=== PATIENT | female | born 1935 | race Caucasian/White ===

== ENCOUNTER 2020-09-20 15:11 | Inpatient (IN) | payer MEDICARE, OTHER, SELFPAY ==
[2020-09-20] VITALS (7 sets, daily range): BP systolic 123–219; BP diastolic 83–122; PULSE 64–82; RESP 15–19; TEMP 36.9–37; O2SAT 97–99; BMI 24.7
--- NOTE | ~2020-09-20 | CT_ITS ---
EXAMINATION: CT ANGIOGRAM ABDOMEN AND PELVIS CLINICAL INFORMATION: Hypertension with question of stenosis. COMPARISON: MR angiogram abdomen 03/05/2021, renal ultrasound with Doppler 02/19/2021. TECHNIQUE: Multiple axial images were obtained through the abdomen and pelvis following the administration of 80 mL of Omnipaque 350 intravenous contrast. Additional 2-D coronal and sagittal reformatted images and axial 3-D maximum intensity projection MIP images are generated on the CT workstation. Images were reviewed on a dedicated 3-D workstation. This CT examination was performed using dose optimization techniques as appropriate, variously including the following: *Automated exposure control. *Adjustment of mA and/or kV according to patient size (this includes techniques or standardized protocols for targeted exams where dose is matched to indication/reason for exam; i.e. extremities or head). *Use of iterative reconstruction technique. DLP: 259 mGy-cm VASCULAR FINDINGS: Calcific atherosclerotic changes present in the abdominal aorta without aneurysm or dissection. Some noncalcified plaque is present as well. The aortic bifurcation is patent. Both common iliac arteries demonstrate calcific atherosclerotic change without significant stenosis. Iliac bifurcations are patent. The internal iliac arteries show mild disease but are patent. The external iliac arteries are free of disease. The common femoral arteries demonstrate mild posterior plaque without stenosis. Femoral bifurcations are patent with proximal profunda femoris and superficial femoral arteries. The celiac, SMA and MARIANA are all patent. There are single renal arteries present bilaterally which demonstrate [id number] ostial disease but a significant stenosis is not felt to be present. NONVASCULAR FINDINGS LUNG BASES: The visualized lung bases are unremarkable. LIVER, GALLBLADDER, AND BILIARY TREE: The liver is normal in size, shape, and attenuation. No focal hepatic lesion or biliary ductal dilatation is present. The gallbladder is contracted but otherwise unremarkable with no evidence of radiopaque gallstones, gallbladder wall thickening, or obvious pericholecystic inflammatory changes. PANCREAS: Unremarkable. SPLEEN: Unremarkable. ADRENAL GLANDS: There is nodular thickening of the left adrenal gland. The right adrenal gland appears normal. KIDNEYS AND URETERS: The kidneys are normal in size, shape, and attenuation. No hydronephrosis, hydroureter, or calculi seen. No perinephric stranding. BLADDER: Unremarkable. GASTROINTESTINAL TRACT: The small and large bowel are unremarkable. The appendix is unremarkable. ABDOMINAL WALL: No significant hernia is appreciated. LYMPH NODES: No retroperitoneal lymphadenopathy. PELVIC VISCERA: There is a cystocele present with descent of the bladder. OSSEOUS STRUCTURES: No acute osseous finding. Degenerative changes present in the spine and hips. CT/CT angio abdomen pelvis IMPRESSION: 1. There is mild atherosclerotic renal ostial disease but a hemodynamically significant stenosis is not felt to be present. 2. Cystocele.
--- NOTE | ~2020-09-20 | US_ITS ---
EXAMINATION: ULTRASOUND RENAL WITH DOPPLER CLINICAL INFORMATION: Persistent hypertension. Rule out renal artery stenosis. COMPARISON: Renal ultrasound March 06, 2015 TECHNIQUE: Real-time grayscale, color Doppler, and duplex Doppler evaluation of the kidneys and renal vasculature was performed. Today's examination is limited secondary to motion artifact. FINDINGS: RENAL MEASUREMENTS: Right: 10.5 x 4.3 x 4.5 cm (Sag x AP x TV) Left: 1.4 x 4.5 x 5.2 cm (Sag x AP x TV) The renal parenchyma appears normal. No hydronephrosis or nephrolithiasis. DOPPLER INTERROGATION: Aorta: 124 cm/sec Right Main Renal Artery: Proximal: 76 cm/sec Mid: 83 cm/sec Distal: 115 cm/sec Left Main Renal Artery: Proximal: 229 cm/sec Mid: 193 cm/sec Distal: 150 cm/sec Renal-Aortic Ratio (RAR): Right: 0.6 Left: 1.8 Resistive indices: Resistive indices within both kidneys are mildly elevated averaging approximately 0.8-0.85. US/US renal BI IMPRESSION: -Symmetrically sized kidneys. -Mildly elevated velocity within the proximal left main renal artery may represent a focal stenosis less than 60%. This can be confirmed with CTA imaging of the abdomen. Indicated. -Mildly elevated resistive indices of both kidneys suggesting underlying medical renal disease.
--- NOTE | ~2020-09-20 | XR_ITS ---
EXAMINATION: PORTABLE CHEST 1 VIEW CLINICAL INFORMATION: dyspnea . COMPARISON: 07/07/2019. TECHNIQUE: Portable frontal view of the chest was obtained. FINDINGS: Lungs are hyperinflated with chronic appearing coarsened reticular markings seen bilaterally. There is superimposed increased central vascular prominence and perihilar reticular prominence suggesting component of superimposed edema on chronic changes. Tiny bilateral effusions likely present. No pneumothorax. Cardiac silhouette within normal limits for size with vascular calcification in the aorta. Degenerative changes in the spine and shoulders. XR/XR chest 1V IMPRESSION: Findings suggestive of acute pulmonary edema superimposed on chronic changes
--- NOTE | ~2020-09-20 | MR_ITS ---
EXAMINATION: MR BRAIN WITHOUT CONTRAST CLINICAL INFORMATION: Cerebrovascular accident. Fall. COMPARISON: CT head from 09/20/2020. TECHNIQUE: MRI of the brain was obtained using routine sequences without contrast. FINDINGS: No focal restricted diffusion is demonstrated to suggest acute or subacute cerebral ischemia. No evidence of acute or chronic hemorrhagic products on heme-sensitive imaging. Scattered periventricular, deep white matter, and brainstem T2 FLAIR hyperintensities consistent with moderate underlying microangiopathy. Chronic lacunar infarcts of the left caudate body and lentiform nucleus. There is a degree of generalized enlargement of both the ventricles and the sulcal spaces. The posterior callosal angle is decreased (71 degrees) when measured on a corrected coronal image, orthogonal to the anterior commissure-posterior commissure line. No abnormal mass effect. No midline shift. Normal appearance of the pituitary gland. Normal positioning of the cerebellar tonsils. Normal arterial and venous vascular flow voids are present. Normal, homogeneous marrow signal. Multifocal subcutaneous nodules most consistent with inclusion cysts. Mild mucosal thickening of the paranasal sinuses. No signal abnormalities within the mastoids. Bilateral lens extractions. MR/MR head/brain wo con IMPRESSION: 1. No acute intracranial abnormalities. 2. Moderate underlying microangiopathy. 3. There is a degree of generalized cerebral volume loss with prominence of both the ventricles and sulcal spaces. However, there appears to be mildly disproportionate prominence of the ventricles. This may be due to disproportionate central volume loss; however, correlation with symptoms of potentially superimposed normal pressure hydrocephalus is recommended.
--- NOTE | ~2020-09-20 | US_ITS ---
EXAMINATION: ULTRASOUND RENAL WITH DOPPLER CLINICAL INFORMATION: Persistent hypertension. Rule out renal artery stenosis. COMPARISON: Renal ultrasound March 06, 2015 TECHNIQUE: Real-time grayscale, color Doppler, and duplex Doppler evaluation of the kidneys and renal vasculature was performed. Today's examination is limited secondary to motion artifact. FINDINGS: RENAL MEASUREMENTS: Right: 10.5 x 4.3 x 4.5 cm (Sag x AP x TV) Left: 1.4 x 4.5 x 5.2 cm (Sag x AP x TV) The renal parenchyma appears normal. No hydronephrosis or nephrolithiasis. DOPPLER INTERROGATION: Aorta: 124 cm/sec Right Main Renal Artery: Proximal: 76 cm/sec Mid: 83 cm/sec Distal: 115 cm/sec Left Main Renal Artery: Proximal: 229 cm/sec Mid: 193 cm/sec Distal: 150 cm/sec Renal-Aortic Ratio (RAR): Right: 0.6 Left: 1.8 Resistive indices: Resistive indices within both kidneys are mildly elevated averaging approximately 0.8-0.85. US/US renal doppler IMPRESSION: -Symmetrically sized kidneys. -Mildly elevated velocity within the proximal left main renal artery may represent a focal stenosis less than 60%. This can be confirmed with CTA imaging of the abdomen. Indicated. -Mildly elevated resistive indices of both kidneys suggesting underlying medical renal disease.
--- NOTE | ~2020-09-20 | MR_ITS ---
EXAMINATION: MR ANGIOGRAPHY ABDOMEN WITHOUT AND WITH CONTRAST CLINICAL INFORMATION: Hypertension. Evaluate for renal artery stenosis. COMPARISON: Renal ultrasound and renal Doppler exam 02/19/2021 TECHNIQUE: Sagittal axial and coronal sequences through the abdomen and coronal contrast-enhanced MRA of the abdomen and pelvis following 20 mL Gadavist contrast. 3-D reconstructions on the technologist workstation were performed FINDINGS: Exam is significantly limited due to motion artifact. Exam is nondiagnostic for evaluation of renal artery stenosis. There are single renal arteries. The celiac axis and SMA is patent. The descending thoracic aorta and abdominal aorta are patent. There may be a mild stenosis at the origin of the right common iliac artery. The common, internal and external iliac arteries are otherwise normal in caliber. Liver, spleen, pancreas, adrenal glands and gallbladder are unremarkable. Kidneys are normal in size, shape and contour. No mass or hydronephrosis is seen. Visualized bowel is unremarkable. No ascites or adenopathy is seen. There may be a tiny umbilical hernia containing fat. Bony structures are unremarkable. MR/MR angio abdomen wo/w con IMPRESSION: Limited exam due to motion artifact. Exam is nondiagnostic for evaluation of renal artery stenosis.
--- NOTE | ~2020-09-20 | CT_ITS ---
EXAMINATION: CTA CHEST PE STUDY CLINICAL INFORMATION: hypoxia COMPARISON: Chest x-ray today TECHNIQUE: Prior to contrast administration, noncontrast localization images were obtained. After the administration of 70 mL of Omnipaque 350 IV contrast, contiguous thin slice helical images were obtained through the thorax. Reformatted MIP images in the coronal and sagittal planes were obtained at the acquisition workstation. This CT examination was performed using dose optimization techniques as appropriate, variously including the following: *Automated exposure control *Adjustment of mA and/or kV according to patient size (this includes techniques or standardized protocols for targeted exams where dose is matched to indication/reason for exam; i.e. extremities or head) *Use of iterative reconstruction technique DLP: 278 mGy-cm. FINDINGS: The bolus timing on this study was acceptable for visualization of the pulmonary arterial tree. There are no intraluminal pulmonary arterial filling defects present to suggest pulmonary embolism. Small bilateral pleural effusions are seen with dependent bibasilar airspace disease and additional patchy bilateral airspace disease with a perihilar predominance. Although infectious etiologies could have this appearance, a component of bilateral edema would be difficult to exclude and should be clinically correlated. No abnormal pulmonary nodules or masses are appreciated. No significant hilar or mediastinal adenopathy. There is no evidence of pleural effusion or pneumothorax. The heart is normal in size. No evidence of ventricular septal bowing or right heart strain. Vascular calcification within the aorta. Small hiatal hernia. Otherwise the mediastinum is unremarkable. There is no pericardial effusion or pericardial thickening. Limited evaluation of the upper abdominal viscera demonstrates mild asymmetric fullness to the left adrenal gland. CT/CT angio chest PE protocol IMPRESSION: Patchy bilateral airspace disease more prominent in the dependent lung with associated small bilateral pleural effusions. Infectious etiology or aspiration could have this appearance. Pulmonary edema unfortunately cannot be entirely excluded. Clinical correlation will be needed for this nonspecific appearance. I do not appreciate any evidence for pulmonary emboli however VTE: Negative
--- NOTE | 2020-09-20 15:25 | ED.AMS ---
HPI - Altered Mental Status General Chief Complaint: Altered Mental Status Stated Complaint: UNKNOWN/UNREADABLE Time Seen by Provider: 09/20/20 15:25 Source: patient Mode of arrival: EMS Limitations: no limitations History of Present Illness HPI narrative: Patients was found critical in a pool of blood, sent to [facility] for resuscitation, and patient unable to care for herself. Unclear who called the ambulance for the patient. The only story patient can say is that she fell on her buttocks recently but she is in no distress MD complaint: confusion Onset (ago): unknown Severity: moderate Consistency of symptoms: constant Associated symptoms: denies other symptoms Related Data Allergies Allergy/AdvReac Type Severity Reaction Status Date / Time Penicillins [PCN] Allergy Mild HIVES Unverified 05/04/20 15:56 ciprofloxacin [Cipro] Allergy Unknown Verified 07/22/19 00:00 penicillin V Allergy Unknown Verified 07/22/19 00:00 Sulfa (Sulfonamide Allergy Unknown Verified 07/22/19 00:00 Antibiotics) Review of Systems Constitutional: Constitutional: Reports no additional constitutional complaints Eyes: Eyes: Reports no additional eye complaints ENT: Denies dizziness Cardiovascular: Cardiovascular: Reports no additional cardiovascular complaints Respiratory: Respiratory: Reports as per HPI Gastrointestinal: Gastrointestinal: Reports no additional gastrointestinal complaints Genitourinary: Genitourinary: Reports no additional female genitourinary complaints Musculoskeletal: Musculoskeletal: Reports no additional musculoskeletal complaints Integumentary/Breasts: Skin/Breast: Denies rash Neurologic: Reports system reviewed and no additional complaints, except as documented, Denies dizziness and Denies Sensory deficit (Neuro) Psychiatric: Psychiatric: Denies anxiety [facility] Past Medical History Medical History Diabetes HTN (hypertension) Social History Social History Advance Directives: No Advance Directives Information Provided: Yes Physical Exam Vital Signs: Vital Signs: Last Vital Signs Temp 98.6 F 09/20/20 15:28 Pulse 74 09/20/20 15:28 Resp 15 09/20/20 15:28 BP 189/122 H 09/20/20 15:28 Pulse Ox 97 09/20/20 15:28 Body Mass Index 24.7 Const: Other: elderly female in no distress General: healthy appearing Nutritional Appearance: average body habitus Orientation/consciousness: oriented to person and patient oriented x3 Limitations: no limitations HENMT: Head: Yes normal to inspection Ears: external ears normal General nose exam: Normal external nose present Mouth: Normal oral and palatal mucosa present and oropharynx normal Throat: Yes posterior oropharynx normal Eyes: General: appearance normal, both eyes and all related structures Neck: Other: supple Neck: Yes normal visual inspection Chest: Chest palpation & inspection: normal inspection of the chest Resp: Auscultation: clear to auscultation bilaterally Cardio: Jugular venous distension: no JVD Rate: regular rate Rhythm: regular rhythm Heart sounds: S1 normal heart sound present and S2 normal heart sound present GI: Inspection: Yes normal to inspection Palpation (GI): Soft to palpation, nontender and No hepatosplenomegaly present Auscultation: normal bowel sounds : General: Yes no CVA tenderness Back/Spine/Pelvis: Back: no CVA tenderness Skin: General skin exam: no rashes or lesions noted Neuro: General: oriented to person and patient oriented x3 Cranial nerves: Yes CN's II-XII intact bilaterally Motor exam (neuro): 5/5 motor strength present throughout Sensory Exam: No Sensory deficit (Neuro) Extrem: General: Yes normal to inspection Psych: Appearance: grossly normal Course Course Course Narrative: My impression is that the patient demented. I don't think the work up will yield anything and this will fall to case management. Will sign out to Dr. Fam. MDM - Altered Mental Status Lab Data Result diagrams: 09/20/20 15:54 09/20/20 15:54 Labs: Lab Results 09/20/20 Range/Units 15:54 WBC 7.1 (4.8-10.8) X10*3/uL RBC 3.71 L (4.20-5.50) X10*6/uL Hgb 11.0 L (12.0-16.0) g/dl Hct 34.0 L (37-47) % MCV 91.6 (80-98) fL MCH 29.6 (27.0-33.0) pg MCHC 32.4 (31.0-35.0) g/dl RDW 13.7 (11.0-16.0) % Plt Count 308 (160-400) X10*3/uL MPV 11.1 (9.4-12.3) fL Immature Gran % (Auto) 0.3 (0.0-0.4) % Neut % (Auto) 75.4 H (45-73) % Lymph % (Auto) 17.1 L (20-40) % [place] % (Auto) 5.1 (2-11) % Eos % (Auto) 1.4 (0-4) % Baso % (Auto) 0.7 (0-2) % Lymph # (Auto) 1.2 (1.2-4.9) X10*3/uL [place] # (Auto) 0.4 (0.1-1.2) X10*3/uL Eos # (Auto) 0.1 (0.0-0.4) X10*3/uL Baso # (Auto) 0.1 (0.0-0.2) X10*3/uL Abs Immat Gran (auto) 0.02 (0.00-0.03) X10*3/uL Absolute Neuts (auto) 5.3 (2.0-8.3) X10*3/uL Absolute Nucleated RBC 0.000 (0.0-0.012) X10*3/uL Nucleated RBC % (auto) 0.0 (0.0-0.2) /100WBC
--- NOTE | 2020-09-20 15:26 | ECG_ITS ---
Test Reason : AMS Blood Pressure : / mmHG Vent. Rate : 067 BPM Atrial Rate : 067 BPM P-R Int : 182 ms QRS Dur : 100 ms QT Int : 418 ms P-R-T Axes : 063 -31 060 degrees QTc Int : 441 ms Normal sinus rhythm Left axis deviation Left ventricular hypertrophy with repolarization abnormality Cannot rule out Septal infarct (cited on or before 20-SEP-2020) Abnormal ECG When compared with ECG of 04-JUL-2019 13:15, No significant change was found Referred By: Maikel Cain Electronically Signed By:ALBERTO OLIVAREZ
--- NOTE | 2020-09-20 15:27 | CT_ITS ---
EXAMINATION: CT HEAD WITHOUT CONTRAST CLINICAL INFORMATION: Altered mental status COMPARISON: None TECHNIQUE: Contiguous axial imaging was performed from the skull base to vertex without intravenous administration of contrast. This CT examination was performed using dose optimization techniques as appropriate, variously including the following: *Automated exposure control *Adjustment of mA and/or kV according to patient size (this includes techniques or standardized protocols for targeted exams where dose is matched to indication/reason for exam; i.e. extremities or head) *Use of iterative reconstruction technique DLP: 649 mGy-cm FINDINGS: There is no evidence of acute intra-axial or extra-axial hemorrhage, collection or mass. There is a hypodensity seen along precentral gyrus on axial image 44/2 question subacute or old infarct No abnormal mass effect or midline shift is seen. Christian to white matter differentiation is well preserved. No extra-axial fluid collections are identified. The lateral ventricles are moderately enlarged and so other cortical sulci. There is diffuse periarticular hypodensity suggestive of chronic small vessel ischemic changes. There is atherosclerotic calcification of bilateral supraclinoid ICA and right vertebral artery. Bone windows reveal no calvarial abnormality. There are calcified scattered bifrontal and parietal scalp lesions likely sebaceous cyst or neurofibromas The mastoid air cells and visualized portions of the paranasal sinuses are well aerated. CT/CT head/brain wo con IMPRESSION: No acute intracranial process seen. Hypodensity left precentral gyrus question acute versus chronic infarct. There are no previous exam available for comparison. Age-related moderate cerebral atrophy with chronic small vessel ischemic changes. Bilateral frontal and parietal scalp calcified lesions questions sebaceous cyst versus neurofibromas.
--- NOTE | 2020-09-20 15:36 | PC.NURSE ---
EMS reports pt lives with , he had a medical event and was found in the home on the floor covered with blood, EMS reports he had been on the floor for a long time. On arrival she is oriented X3 but not oriented to situation and asks repetitive questions.EMS reports the house appeared to be a hoarding situation. Pt states she fell yesterday on the stairs, but is vague with details.
[2020-09-20 16:02] LABS: MANUAL DIFF FLAG NO
[2020-09-20 16:03] LABS: Basophils Absolute Auto 0.1 X10*3/uL (0.0-0.2); Basophils Percent Auto 0.7 % (0-2); Eosinophils Absolute Auto 0.1 X10*3/uL (0.0-0.4); Eosinophils Percent Auto 1.4 % (0-4); Imm Gran Abs Auto 0.02 X10*3/uL (0.00-0.03); Imm Gran Pct Auto 0.3 % (0.0-0.4); Lymphocytes Absolute Auto 1.2 X10*3/uL (1.2-4.9); Lymphocytes Percent Auto 17.1 % (20-40); Mean Corpuscular HGB Conc 32.4 g/dl (31.0-35.0); Mean Corpuscular Hemoglobin 29.6 pg (27.0-33.0); Mean Corpuscular Volume 91.6 fL (80-98); Mean Platelet Volume 11.1 fL (9.4-12.3); Monocytes Absolute Auto 0.4 X10*3/uL (0.1-1.2); Monocytes Percent Auto 5.1 % (2-11); Neutrophils Absolute Auto 5.3 X10*3/uL (2.0-8.3); Neutrophils Percent Auto 75.4 % (45-73); Platelet Count 308 X10*3/uL (160-400); Red Blood Count 3.71 X10*6/uL (4.20-5.50); Red Cell Distribution Width 13.7 % (11.0-16.0); White Blood Count 7.1 X10*3/uL (4.8-10.8)
[2020-09-20 16:39] LABS: Anion Gap 14 (12-20); Blood Urea Nitrogen 20 mg/dL (9-16); Calcium 9.2 mg/dL (8.4-10.2); Carbon Dioxide 26 mmol/L (22-29); Chloride 105 mmol/L (96-108); Creatinine Clr Calc Pharmacy 26.2; Estimated Glomerular Filt Rate 34; Glucose Random 171 mg/dL (60-115); Potassium 4.2 mmol/L (3.3-5.1); Sodium 141 mmol/L (135-145)
[2020-09-20 16:52] LABS: Troponin-I High Sensitivity 39.1 ng/L (<3.5-17.0)
--- NOTE | 2020-09-20 17:09 | PC.NURSE ---
Pt has a cellphone and address book at bedside, she has been trying to contact family but is unable to remember names of her children. She called a brother thinking it was a son, brother states he has not heard from the patient in a very long time and is not aware of her baseline mental status. Pt confused, also anxious about condition of her .
--- NOTE | 2020-09-20 18:14 | ED_ITS ---
HPI - General Adult General Chief complaint: Altered Mental Status Stated complaint: UNKNOWN/UNREADABLE Time Seen by Provider: 09/20/20 15:25 Source: patient Mode of arrival: EMS Limitations: no limitations History of Present Illness HPI narrative: 85-year-old female who was initially seen by Dr. aCin in and signed out to me at 4:30 p.m. pending her laboratory evaluation. I obtain information from the patient and from a corrections caseworker at [facility] who is involved in the patient's 's care at [facility]. According to the corrections caseworker, the [place] police department stated that they were called by the patient's stating that the patient's son was hallucinating and that she needed help. When the [facility] staff electronic warfare officer arrived, house was very dirty an on unkept and appeared to be uninhabitable. The patient's was found on the floor with a head injury and it appeared that he had been on the floor for several days and the patient was confused about what was going on therefore the staff electronic warfare officer had both the and our patient transported to the hospital. According to the corrections caseworker [facility], the patient's has a significant head injury, appears to be dehydrated and will be hospitalized. The corrections caseworker stated that the [place] police department felt that it was unsafe to send this patient home given the condition of her house and the fact that she does not appear to be able to care for her home or her and was confused. The patient told me that she fell at least 2 times but cannot tell me exactly when she fell. She believes that she landed on her buttocks and this was 2 days prior. She states she is having right lower buttocks pain but has no other complaints. She states that she does have a son and a brother who she would want us to contact to discuss medical issues with. The nurse did contact the patient's brother but he states that he is not from milieu with the patient's medical problems and does not see her often and told us that we should try to contact the patient's son, Rashaun Liang. Related Data Home Medications Medication Instructions Recorded Confirmed amlodipine 10 mg PO DAILY 09/20/20 09/20/20 enalapril maleate 20 mg PO BID 09/20/20 09/20/20 glimepiride 4 mg PO BID 09/20/20 09/20/20 hydralazine 25 mg PO BID 09/20/20 09/20/20 hydrochlorothiazide 25 mg PO DAILY 09/20/20 09/20/20 levothyroxine 75 mcg PO DAILY 09/20/20 09/20/20 metformin 500 mg PO BID 09/20/20 09/20/20 metoprolol succinate 50 mg PO DAILY 09/20/20 09/20/20 tramadol 50 mg PO TID PRN 09/20/20 09/20/20 Allergies Allergy/AdvReac Type Severity Reaction Status Date / Time Penicillins [PCN] Allergy Mild HIVES Unverified 05/04/20 15:56 ciprofloxacin [Cipro] Allergy Unknown Verified 07/22/19 00:00 penicillin V Allergy Unknown Verified 07/22/19 00:00 Sulfa (Sulfonamide Allergy Unknown Verified 07/22/19 00:00 Antibiotics) Review of Systems Review of Systems: Yes all other systems are reviewed and are negative Neurologic: Reports Abnormal speech present [facility] Past Medical History [facility] Narrative: Past medical history is obtained from the patient, she states she has diabetes, hypertension, coronary artery disease and had a stent placed in [place], she states that she lives at home with her . She denies tobacco, alcohol and drug use. She states that she used to work for the [employer]. Medical History Diabetes HTN (hypertension) Social History Social History Alcohol intake: never Smoking Status: Never smoker Use of substances other than those prescribed or required for medical reasons: No Advance Directives: No Advance Directives Information Provided: Yes Physical Exam Vital Signs: Vital Signs: Last Vital Signs Temp 98.4 F 09/20/20 22:05 Pulse 65 09/20/20 22:05 Resp 19 09/20/20 22:05 BP 154/96 H 09/20/20 22:05 Pulse Ox 97 09/20/20 22:05 Body Mass Index 24.7 Const: General: cooperative and no acute distress Orientation/consciousness: oriented to person and oriented to place Limitations: other limitations (Question if the patient remembers events correctly) HENMT: Head: Yes normal to inspection, Yes normocephalic and Yes atraumatic Ears: external ears normal General nose exam: Normal external nose present Face and sinus: Yes normal facial exam Mouth: Normal oral and palatal mucosa present Throat: Yes posterior oropharynx normal Eyes: Periorbital: periorbital findings normal Eyelids: Yes eyelids normal Conjunctivae: conjunctivae normal Sclerae: sclerae normal Corneas: corneas normal Pupils: Equal, round and reactive pupils present Direct Ophthalmoscopy: normal light reflex Neck: Neck: Yes full ROM, Yes no lymphadenopathy, Yes no meningeal signs, Yes trachea midline and Yes supple Chest: Chest palpation & inspection: normal inspection of the chest and normal palpation of entire chest wall Resp: Effort & Inspection: normal respiratory effort and able to speak in complete sentences Auscultation: clear to auscultation bilaterally Cardio: Rate: regular rate Rhythm: regular rhythm Heart sounds: S1 normal heart sound present, S2 normal heart sound present and Murmur heart sound present continuous and systolic II/ and at the left sternal border GI: Inspection: Yes normal to inspection Palpation (GI): Soft to palpation, nontender, no guarding, not rigid and No hepatosplenomegaly present : General: Yes no CVA tenderness Back/Spine/Pelvis: Back: no CVA tenderness Cervical Spine: normal cervical lordosis Thoracic/Lumbar Spine: thoracic and lumbar spine normal to inspection Skin: Lesions: no lesions Rashes: no rashes Wounds: no wounds Neuro: General: oriented to person, oriented to place and no meningeal signs Cranial nerves: Yes Equal, round and reactive pupils present Cognition (Neuro): normal cognition Speech: Abnormal speech present Motor exam (neuro): 5/5 motor strength present throughout Extrem: General: Yes normal to inspection and Yes full ROM Psych: Appearance: well kempt Mental Status: mental status grossly normal Speech and movement: Normal speech and movement present Affect: normal affect Attitude: cooperative Thought content: Normal thought content present Insight: Other insight findings present (Psych) (Patient may not be recalling events correctly based discussion with [facility]) Course Course Course Narrative: 85-year-old female who reports a history of diabetes, hypertension, coronary artery disease status post remote stent who was sent to the emergency department by [employer] after she called 911 for her and seemed to be confused and found to be in a home that was unlivable. The patient reported falling twice but was vague about these incidents. She reported right buttocks pain, physical examination was unremarkable for elevated blood pressures initially 219/95, which I suspect is secondary to noncompliance. I did order the patient's outpatient oral antihypertensive medications. Laboratory evaluation did reveal mild anemia with an H&H of 11 and 34, slight elevated glucose of 171, elevated BUN creatinine of 20 and 1.46. The patient's initial troponin was elevated at 39. Twelve EKG revealed for R- wave progression with a Q-wave in lead V2 with slight ST segment depression V4 through V6 . These findings were present on previous EKG however the ST segment depressions appear to be more prominent. The patient was hypertensive on presentation and I did order her outpatient antihypertensive medications. The patient will also need a 3 hour troponin. 2007: The patient's repeat troponin was elevated at 59.7 which is greater than a 50% increase. I will discuss this with Cardiology. The patient did have elevated blood pressures which may explain the elevated troponin, coronary artery disease also needs to be considered given her previous history of stenting. 2018: I did discuss the patient with the covering brake lining curer, Dr. Lantigua. He agreed with aspirin only as the management and admission to further evaluate the elevated troponin. I did discuss the patient's heart murmur he recommended the patient get an echocardiogram to further evaluate this as well. I will discuss the patient's presentation with the covering hospitalist. 2315: The patient is 6 hour troponin was 63.3 which is not significantly changed from the 3 hour troponin. I did discuss this with the hospitalist the patient will be admitted for further management. Medical Decision Making Lab Data Result diagrams: 09/20/20 15:54 09/20/20 15:54 Labs: Lab Results 09/20/20 09/20/20 09/20/20 Range/Units 15:54 15:54 15:54 WBC 7.1 (4.8-10.8) X10*3/uL RBC 3.71 L (4.20-5.50) X10*6/uL Hgb 11.0 L (12.0-16.0) g/dl Hct 34.0 L (37-47) % MCV 91.6 (80-98) fL MCH 29.6 (27.0-33.0) pg MCHC 32.4 (31.0-35.0) g/dl RDW 13.7 (11.0-16.0) % Plt Count 308 (160-400) X10*3/uL MPV 11.1 (9.4-12.3) fL Immature Gran % (Auto) 0.3 (0.0-0.4) % Neut % (Auto) 75.4 H (45-73) % Lymph % (Auto) 17.1 L (20-40) % [place] % (Auto) 5.1 (2-11) % Eos % (Auto) 1.4 (0-4) % Baso % (Auto) 0.7 (0-2) % Lymph # (Auto) 1.2 (1.2-4.9) X10*3/uL [place] # (Auto) 0.4 (0.1-1.2) X10*3/uL Eos # (Auto) 0.1 (0.0-0.4) X10*3/uL Baso # (Auto) 0.1 (0.0-0.2) X10*3/uL Abs Immat Gran (auto) 0.02 (0.00-0.03) X10*3/uL Absolute Neuts (auto) 5.3 (2.0-8.3) X10*3/uL Absolute Nucleated RBC 0.000 (0.0-0.012) X10*3/uL Nucleated RBC % (auto) 0.0 (0.0-0.2) /100WBC Sodium 141 (135-145) mmol/L Potassium 4.2 (3.3-5.1) mmol/L Chloride 105 (96-108) mmol/L Carbon Dioxide 26 (22-29) mmol/L Anion Gap 14 (12-20) BUN 20 H (9-16) mg/dL Creatinine 1.46 H (0.5-1.4) mg/dL Estim Creat Clear Calc 26.2 Estimated GFR 34 Random Glucose 171 H (60-115) mg/dL Calcium 9.2 (8.4-10.2) mg/dL Troponin I High Sens 39.1 H (<3.5-17.0) ng/L TSH 3.25 (0.32-4.0) uIU/mL COVID-19 (MILA) (Negative) COVID-19 Clin Com 09/20/20 09/20/20 09/20/20 Range/Units 18:38 18:42 21:47 WBC (4.8-10.8) X10*3/uL RBC (4.20-5.50) X10*6/uL Hgb (12.0-16.0) g/dl Hct (37-47) % MCV (80-98) fL MCH (27.0-33.0) pg MCHC (31.0-35.0) g/dl RDW (11.0-16.0) % Plt Count (160-400) X10*3/uL MPV (9.4-12.3) fL Immature Gran % (Auto) (0.0-0.4) % Neut % (Auto) (45-73) % Lymph % (Auto) (20-40) % [place] % (Auto) (2-11) % Eos % (Auto) (0-4) % Baso % (Auto) (0-2) % Lymph # (Auto) (1.2-4.9) X10*3/uL [place] # (Auto) (0.1-1.2) X10*3/uL Eos # (Auto) (0.0-0.4) X10*3/uL Baso # (Auto) (0.0-0.2) X10*3/uL Abs Immat Gran (auto) (0.00-0.03) X10*3/uL Absolute Neuts (auto) (2.0-8.3) X10*3/uL Absolute Nucleated RBC (0.0-0.012) X10*3/uL Nucleated RBC % (auto) (0.0-0.2) /100WBC Sodium (135-145) mmol/L Potassium (3.3-5.1) mmol/L Chloride (96-108) mmol/L Carbon Dioxide (22-29) mmol/L Anion Gap (12-20) BUN (9-16) mg/dL Creatinine (0.5-1.4) mg/dL Estim Creat Clear Calc Estimated GFR Random Glucose (60-115) mg/dL Calcium (8.4-10.2) mg/dL Troponin I High Sens 59.7 H D 63.3 H (<3.5-17.0) ng/L TSH (0.32-4.0) uIU/mL COVID-19 (MILA) Negative (Negative) COVID-19 Clin Com See Note ECG Data Attestation: I personally reviewed and interpreted this ECG as follows: Interpretation: 1543: Normal sinus rhythm with a rate of 67, prolonged QRS of 100 milliseconds, normal FL and QTC, incomplete right bundle-branch, Q-wave in V1 and V2 with less than [address] segment depression in V3, V4 and V5, old EKG dated July 04, 2019 revealed Q-waves in V1 and V2, the patient did have some slight ST segment depression V3 through V6 however today's depressions appear to be deeper. This is an abnormal EKG which may represent anterior ischemia. Discharge Plan Discharge Prescriptions: No Action metformin 500 mg Tablet 500 mg PO BID RF: 0 metoprolol succinate 50 mg Tablet Extended Release 24 Hr 50 mg PO DAILY RF: 0 enalapril maleate 20 mg Tablet 20 mg PO BID RF: 0 hydralazine 25 mg Tablet 25 mg PO BID RF: 0 tramadol 50 mg Tablet 50 mg PO TID PRN (Reason: Pain (Scale Score 4-6)) RF: 0 levothyroxine 75 mcg Tablet 75 mcg PO DAILY RF: 0 amlodipine 10 mg Tablet 10 mg PO DAILY RF: 0 glimepiride 4 mg Tablet 4 mg PO BID RF: 0 hydrochlorothiazide 25 mg Tablet 25 mg PO DAILY RF: 0
[2020-09-20] MEDS: hydroCHLOROthiazide 25 MG TABLET PO (18:46)
[2020-09-20] MEDS: amLODIPine Besylate 10 MG TABLET PO (18:46)
[2020-09-20] MEDS: hydrALAZINE HCl 25 MG TABLET PO (18:46)
[2020-09-20 18:54] LABS: Thyroid Stimulating Hormone 3.25 uIU/mL (0.32-4.0)
--- NOTE | 2020-09-20 18:58 | PC.NURSE ---
Pharmacy called for Enalapril as it is not stocked in [facility].
[2020-09-20 19:03] LABS: COVID-19 Test Negative (Negative); IDNOW Serial# 9DD0AD1C
[2020-09-20] MEDS: Enalapril Maleate 10 MG TABLET 20 MG PO (19:07)
[2020-09-20 19:35] LABS: Troponin-I High Sensitivity 59.7 ng/L (<3.5-17.0)
--- NOTE | 2020-09-20 20:11 | PC.NURSE ---
Pt found sitting upright in bed, pt alert and oriented at this time but continuously trying to get OOB without assistance. Pt redirected to use call neves and remain in bed. Pt incontinent of diarrhea, reports frequent episodes of diarrhea this evening, requesting Imodium. MD aware. Pt MD, plan to admit due to elevated Troponin. VSSMD aware of BP. Continue to monitor.
[2020-09-20] MEDS: Loperamide HCl 2 MG CAPSULE 4 MG PO (20:43)
[2020-09-20] MEDS: Aspirin 81 MG TAB.CHEW PO (20:43)
--- NOTE | 2020-09-20 20:46 | PC.NURSE ---
Pt medicated per MAR.
[2020-09-20 22:30] LABS: Troponin-I High Sensitivity 63.3 ng/L (<3.5-17.0)
--- NOTE | 2020-09-20 23:15 | PM.IMHP ---
History of Present Illness Date of Service: 09/20/20 Chief Complaint: Fall 85-year-old female with a past medical history of hypertension, hyperlipidemia, diabetes, hypothyroidism, CAD status post stent presented to the hospital with a chief complaint of fall. Most of the history obtained from the records and ER physician. Patient is forgetful. Per ER physician he was reported that patient had a fall at home and had mild confusion. Also mentioned that EMS was called in because of the fall of her who was then taken to the [facility]. To the EMS people patient appeared confused. And was unable to reach the patient's son. Per EMS patient's house conditions were poor. At the time of my interview patient denies any chest pain palpitations lightheadedness or dizziness. Denies any headaches numbness tingling. Denies any back pain or hip pain. Patient reports to me that she had a fall and couple days later her had a fall. Denies any symptoms. Mentioned that she worked for [employer] for 30 years. When asked about the president she knows the new and old present but unable to recall than names, also unable to recall the ER. Mentions that she has diabetes and she has coronary artery disease with stent placed in the past. Denies any GI or symptoms. Review of all other systems is negative except mentioned above He ER course: For ER team patient's CT head showed no acute findings. CT C-spine is pending. Urinalysis is pending. Initial troponin was 39 followed by 59 followed by 63-EKG showed ST depression that are slightly more prominent in V3 V4 V5 V6 compared to the old EKG; ER physician mentioned that he spoke with Dr. hernandez from Cardiology-> who mentioned to you the patient aspirin, obtain echocardiogram in the morning, no need for heparin drip currently. [facility] Medical History Diabetes HTN (hypertension) Social History Alcohol intake: never Smoking Status: Never smoker Use of substances other than those prescribed or required for medical reasons: No Advance Directives: No Advance Directives Information Provided: Yes Meds Allergies Allergy/AdvReac Type Severity Reaction Status Date / Time Penicillins [PCN] Allergy Mild HIVES Unverified 05/04/20 15:56 ciprofloxacin [Cipro] Allergy Unknown Verified 07/22/19 00:00 penicillin V Allergy Unknown Verified 07/22/19 00:00 Sulfa (Sulfonamide Allergy Unknown Verified 07/22/19 00:00 Antibiotics) Home Medications Medication Instructions Recorded Confirmed Type amlodipine 10 mg PO DAILY 09/20/20 09/20/20 History enalapril maleate 20 mg PO BID 09/20/20 09/20/20 History glimepiride 4 mg PO BID 09/20/20 09/20/20 History hydralazine 25 mg PO BID 09/20/20 09/20/20 History hydrochlorothiazide 25 mg PO DAILY 09/20/20 09/20/20 History levothyroxine 75 mcg PO DAILY 09/20/20 09/20/20 History metformin 500 mg PO BID 09/20/20 09/20/20 History metoprolol succinate 50 mg PO DAILY 09/20/20 09/20/20 History tramadol 50 mg PO TID PRN 09/20/20 09/20/20 History Physical Exam Vital Signs and Narrative: Vital Signs: Last Vital Signs Temp 98.4 F 09/20/20 22:05 Pulse 65 09/20/20 22:05 Resp 19 09/20/20 22:05 BP 154/96 H 09/20/20 22:05 Pulse Ox 97 09/20/20 22:05 Body Mass Index 24.7 Gen: Appears be in no acute distress HEENT: NCAT, Moist mucosa. Neck is supple Pulmonary: Vesicular breath sounds, fair air entry CVS: Normal S1-S2 Abdomen: BS+, Soft, Nontender Extremities: Warm well perfused Musculoskeletal exam: Benign. No spinal tenderness. Neuro: Alert and awake. Results Labs CBC and Chem 7: 09/20/20 15:54 09/20/20 15:54 Labs: Laboratory Results - last 24 hr 09/20/20 09/20/20 09/20/20 15:54 15:54 15:54 MCV 91.6 MCH 29.6 MCHC 32.4 RDW 13.7 Plt Count 308 MPV 11.1 Immature Gran % (Auto) 0.3 Neut % (Auto) 75.4 H Lymph % (Auto) 17.1 L Rowan % (Auto) 5.1 Eos % (Auto) 1.4 Baso % (Auto) 0.7 Lymph # (Auto) 1.2 Rowan # (Auto) 0.4 Eos # (Auto) 0.1 Baso # (Auto) 0.1 Abs Immat Gran (auto) 0.02 Absolute Neuts (auto) 5.3 Absolute Nucleated RBC 0.000 Nucleated RBC % (auto) 0.0 Anion Gap 14 Estim Creat Clear Calc 26.2 Estimated GFR 34 Random Glucose 171 H Calcium 9.2 Troponin I High Sens 39.1 H TSH 3.25 COVID-19 (MILA) COVID-19 Clin Com 09/20/20 09/20/20 09/20/20 18:38 18:42 21:47 MCV MCH MCHC RDW Plt Count MPV Immature Gran % (Auto) Neut % (Auto) Lymph % (Auto) Rowan % (Auto) Eos % (Auto) Baso % (Auto) Lymph # (Auto) Rowan # (Auto) Eos # (Auto) Baso # (Auto) Abs Immat Gran (auto) Absolute Neuts (auto) Absolute Nucleated RBC Nucleated RBC % (auto) Anion Gap Estim Creat Clear Calc Estimated GFR Random Glucose Calcium Troponin I High Sens 59.7 H D 63.3 H TSH COVID-19 (MILA) Negative COVID-19 Clin Com See Note Imaging Radiologist's Impressions: Impressions Head CT 09/20/20 15:27 IMPRESSION: No acute intracranial process seen. Hypodensity left precentral gyrus question acute versus chronic infarct. There are no previous exam available for comparison. Age-related moderate cerebral atrophy with chronic small vessel ischemic changes. Bilateral frontal and parietal scalp calcified lesions questions sebaceous cyst versus neurofibromas. Assessment and Plan (1) Elevated troponin: Status: Acute 85-year-old female with a past medical history of hypertension, hyperlipidemia, diabetes, hypothyroidism, CAD with stents presented to the hospital with a chief complaint of fall. Noted to have elevated troponins admitted to the hospital for further management. Confusion: Unknown patient's baseline mental status. Likely toxic metabolic encephalopathy. Urinalysis pending. Supportive care. Elevated troponins: Patient denies any chest pain. EKG showed ST depressions in the lateral leads. Troponins currently plateaued. Dr. hernandez from Cardiology is aware and recommended no new heparin drip at this point. Continue aspirin Echocardiogram Fall: Unwitnessed. Unclear if she lost consciousness. Noted indeterminate troponins. Echocardiogram as mentioned. PT/OT. Diabetes: Insulin sliding scale Hypertension/hyperlipidemia: Continue home medications. Will defer to the a.m. team to confirm the home medications. Poor home conditions: Case management/social media job titles consult in the morning Code status: Presumed full code. Primary team in the morning to pursue to find contact with patient's son.
--- NOTE | 2020-09-20 23:31 | PC.NURSE ---
Sitter at bedside. Plan to obtain UA. Pt aware of plan to admit. Continue to monitor.
[2020-09-21] VITALS (9 sets, daily range): BP systolic 147–185; BP diastolic 62–78; PULSE 56–69; RESP 13–18; TEMP 36.1–36.6; O2SAT 94–100
--- NOTE | 2020-09-21 | PC.NURSE ---
Pt calling this RN to bedside, pt states I had $300 or $400 on me, I can't find it anywhere. Someone took my money! This RN notifying nurse brand development manager Cely Wells who spoke with pt, calling security who stated that noone had provided them with a sealed envelope of dhillon when pt arrived. Pt states Why did I leave my purse over there on the counter?! I should have known!! Pt pointing to the counter by the physician desk however both of her purses remained at her bedside while pt was in the care of this RN.
[2020-09-21] MEDS: 0.9 % Sodium Chloride Flush 3 ML SYRINGE IVFLUSH ×3 (00:18→17:43)
[2020-09-21 01:26] LABS: Glucose, Whole Blood 141 mg/dL (60-115)
--- NOTE | 2020-09-21 02:14 | PC.NURSE ---
Pt remains awake in bed at this time, sitter at bedside as pt is impulsive and has been in and out of bed, not using her call neves or waiting for assistance. IV established per admission orders. Pt aware of plan to admit but remains confused at times, stating I'm getting out of here. Don't be mad at me when I go home tomorrow. Pt aware of pending urine sample but states I don't usually pee much, I don't have to go. Urine cup and hat at bedside. Continue to monitor.
--- NOTE | 2020-09-21 05:48 | PC.NURSE ---
AM labs obtained and sent. VSS, pt remains hypertensive at this time. Call neves within reach, continue to monitor.
[2020-09-21 05:53] LABS: Basophils Absolute Auto 0.1 X10*3/uL (0.0-0.2); Basophils Percent Auto 0.7 % (0-2); Eosinophils Absolute Auto 0.3 X10*3/uL (0.0-0.4); Eosinophils Percent Auto 3.1 % (0-4); Hematocrit 36.1 % (37-47); Hemoglobin 11.7 g/dl (12.0-16.0); Imm Gran Abs Auto 0.02 X10*3/uL (0.00-0.03); Imm Gran Pct Auto 0.2 % (0.0-0.4); Lymphocytes Absolute Auto 1.9 X10*3/uL (1.2-4.9); Mean Corpuscular HGB Conc 32.4 g/dl (31.0-35.0); Mean Corpuscular Hemoglobin 29.9 pg (27.0-33.0); Mean Corpuscular Volume 92.3 fL (80-98); Mean Platelet Volume 10.7 fL (9.4-12.3); Monocytes Absolute Auto 0.6 X10*3/uL (0.1-1.2); Monocytes Percent Auto 7.1 % (2-11); Neutrophils Absolute Auto 5.5 X10*3/uL (2.0-8.3); Neutrophils Percent Auto 65.9 % (45-73); Platelet Count 310 X10*3/uL (160-400); Red Blood Count 3.91 X10*6/uL (4.20-5.50); Red Cell Distribution Width 13.9 % (11.0-16.0); White Blood Count 8.4 X10*3/uL (4.8-10.8)
[2020-09-21 05:54] LABS: MANUAL DIFF FLAG NO
[2020-09-21] MEDS: Levothyroxine Sodium 75 MCG TABLET PO (05:57)
--- NOTE | 2020-09-21 06:20 | PC.NURSE ---
Pt calling this RN over as she was rifling through her bags at bedside. Pt states I'm missing my bank books!! I had 2 bank books in here and now they're gone! This RN advising discussing with pt whether or not they may have been left at home. printing assistant aware.
[2020-09-21 06:26] LABS: Anion Gap 16 (12-20); Blood Urea Nitrogen 21 mg/dL (9-16); Calcium 9.4 mg/dL (8.4-10.2); Carbon Dioxide 26 mmol/L (22-29); Chloride 103 mmol/L (96-108); Creatinine Clr Calc Pharmacy 30.5; Estimated Glomerular Filt Rate 41; Glucose Random 177 mg/dL (60-115); Potassium 3.7 mmol/L (3.3-5.1); Sodium 141 mmol/L (135-145)
[2020-09-21 07:13] LABS: Glucose, Whole Blood 169 mg/dL (60-115)
[2020-09-21] MEDS: Insulin Lispro 100 UNIT/ML 3 ML VIAL SUBCUT ×3 (07:14→21:14)
--- NOTE | 2020-09-21 08:00 | CA_ITS ---
Transthoracic Echocardiogram Patient (Last, First, Middle): Kathlene Bradley A Gender: Female Date of : 1935 Age: 85 Procedure Date: 09/21/2020 Procedure Type: Transthoracic Echocardiogram Location: ER Height: 160.02 cm Weight: 63.5 kg BSA: 1.66 m2 Heart Rate: bpm BP: 170 / 70 mmHg Enrollment Counselor: TAISHA Cochran MD: Bhavik Jesus MD Symptoms: trops high Study Quality: Fair ECG Rhythm: Sinus Conclusions: - The left ventricular systolic function is normal. The visually estimated ejection fraction is between 55-60%. - There is mild to moderate aortic valve stenosis. - There is mild mitral annular calcification. Findings Left Ventricle Normal left ventricular cavity size. There is mildly increased left ventricular wall thickness. The left ventricular systolic function is normal. The visually estimated ejection fraction is between 55-60%. There is no evidence of regional wall motion abnormalities. E/E prime ratio is >15, consistent with elevated filling pressures. Evidence suggests grade I (mild) diastolic dysfunction. Possible basal inferior hypokinesis. Right Ventricle Normal right ventricular cavity size and systolic function. Atria The left atrium is mildly dilated. The right atrium is normal in size. Aortic Valve There is moderate calcification of the aortic valve. There is mild to moderate aortic valve stenosis. The peak aortic velocity is 2.97 m/s with a calculated peak gradient of 35 mmHg. The mean gradient is 17 mmHg. The aortic valve area is 1.44 cm2. There is no aortic valve regurgitation. Mitral Valve There is mild mitral annular calcification. There is trace mitral valve regurgitation. There is no mitral valve stenosis. Pulmonic Valve The pulmonic valve was not well visualized. Tricuspid Valve Normal tricuspid valve structure. There is trace tricuspid valve regurgitation. The pulmonary artery systolic pressure is normal. Great Vessels The aortic annulus, sinuses of valsalva, and asc aorta are normal in size. Venous The inferior vena cava is normal in size. Pericardium/Pleural There is no evidence of pericardial effusion. Prior Study Comparison No significant change compared to prior study dated: 07/05/2019. Measurements 2D Linear Measurements IVSd: 1.04 0.6-0.9/0.6-1.0 cm LVIDd: 4.18 3.9-5.3/4.2-5.9 cm LVIDd Index: 2.52 2.4-3.2/2.2-3.1 cm/m2 LVIDs: 2.84 2.0-3.6 cm LVPWd: 1.03 0.7-1.1 cm Ao Root: 2.50 2.1-3.5 cm LA Diam: 3.20 2.7-3.8/3.0-4.0 cm LAIDs Index: 1.93 1.5-2.3 cm/m2 LV Mass: 177.95 67-162/88-224 g LV Mass Index: 107.20 43-95/49-115 g/m2 LVOT Diam: 2.10 3.0+(-)1.3 cm 2D Systolic Function EF 4C: 61.70 >55% EF 2C: 53.30 >55% EF BiP: 57.70 >55% Mitral Valve MV Pk E: 0.77 MV PK A: 1.18 MV Decel Time: 362.00 E/A: 0.60 E'Lateral: 3.92 E'Medial: 3.92 E/E' Med: 19.50 E/E' Lat: 19.50 PHT: 106.00 MVA PHT: 2.08 Decel Tyrrell: 2.11 Aortic Valve AoV Pk Nicola: 2.97 AoV Mn Nicola: 1.90 AoV VTI: 0.69 AoV Pk Grad: 35.00 Aov Mn Grad: 17.00 GÓMEZ Cont.VTI: 1.44 LVOT LVOT Pk Nicola: 1.20 LVOT Mn Nicola: 0.78 LVOT VTI: 0.29 LVOT Pk Grad: 6.00 LVOT Mn Grad: 3.00 LVOT Diam: 2.10 LVOT Area: 3.46 Diastolic Function MV Pk E: 0.77 MV Pk A: 1.18 E/A: 0.60 E'Medial: 3.92 E/E' Med: 19.50 E' Laterial: 3.92 E/E' Lat: 19.50 Tricuspid Valve TR Pk Nicola: 2.46 TR Pk Grad: 24.00 RA Press: 3.00 RVSP: 27.00 Great Vessels Aorta Ao Root-2D: 2.50 2.0-3.7 cm Ao Asc: 3.10 2.1-3.4 cm Updated in Other Vendor System with Status of Final Meño Hernandez MD electronically signed on 09/21/2020 4:59:35 PM with status of Final
[2020-09-21] MEDS: amLODIPine Besylate 10 MG TABLET PO (10:52)
[2020-09-21] MEDS: Aspirin 81 MG TAB.CHEW PO (10:53)
[2020-09-21] MEDS: hydrALAZINE HCl 25 MG TABLET PO ×2 (10:53→21:13)
[2020-09-21] MEDS: Metoprolol Succinate ER 50 MG TAB.ER.24H PO (10:53)
[2020-09-21 11:57] LABS: Appearance Urine HAZY; Color Urine YELLOW; Glucose Urine UA NEG (NEG); Leukocyte Esterase Urine 1+ (NEG); Nitrite Urine NEG (NEG); PH 5.5 (5.0-8.0); Specific Gravity - Urine >= 1.030 (1.005-1.025); UACC Culture Trigger YES; Urine Blood TRACE (NEG); Urine Ketones NEG (NEG); Urine Protein 2+ MG/DL (NEG-TRACE)
[2020-09-21 12:05] LABS: Bacteria Urine TRACE /LPF; RBC Urine 0-2 /HPF (0); Renal Epithelial Cells Urine TRACE /LPF; Squamous Epithelial Cell Urine TRACE /LPF
--- NOTE | 2020-09-21 12:39 | P.CONCA_ITS ---
History of Present Illness History of Present Illness Date of Service: 09/21/20 Consult reason: troponin elevation Chief complaint: FALL Narrative: This is a cardiology consultation regarding elevated troponins. It appears that she fell down at home but that seems to be mechanical fall as patient states that the steps did not have any phalanx. Additionally, her also fell in a similar situation and he is now in [facility]. Not entirely clear as to why she was brought to the ER but apparently she appeared confused. Per H and P, patient's host conditions were poor. Patient herself has no specific complaints like any angina or palpitations or dizzy spells or syncopal episodes. She believes she is now in [facility]. Hence possibly confused. Otherwise because of elevated troponins, we have been asked to see her. Review of Systems Review of Systems: Yes all other systems are reviewed and are negative Constitutional: Constitutional: Reports as per HPI Cardiovascular: Cardiovascular: Reports as per HPI, Reports no additional cardiovascular complaints, Denies acrocyanosis, Denies cool extremities, Denies painful fingertips, Denies chest pain, Denies chest pain at rest, Denies diaphoresis, Denies syncope, Denies irregular heart rhythm, Denies claudication, Denies leg edema, Denies lightheadedness, Denies palpitations and Denies dyspnea Respiratory: Respiratory: Denies dyspnea Neurologic: Denies syncope Endocrine: Endocrine: Denies palpitations [facility] Past Medical History Medical History (Updated 09/21/20 @ 12:51 by Meño Hernandez MD) Atherosclerotic cardiovascular disease Diabetes HTN (hypertension) Non-rheumatic aortic stenosis Family History Pertinent family history: Unable to obtain from patient. Social History Social History Alcohol intake: never Smoking Status: Never smoker Use of substances other than those prescribed or required for medical reasons: No Advance Directives: No Advance Directives Information Provided: Yes Meds Allergies Allergy/AdvReac Type Severity Reaction Status Date / Time Penicillins [PCN] Allergy Mild HIVES Unverified 05/04/20 15:56 ciprofloxacin [Cipro] Allergy Unknown Verified 07/22/19 00:00 penicillin V Allergy Unknown Verified 07/22/19 00:00 Sulfa (Sulfonamide Allergy Unknown Verified 07/22/19 00:00 Antibiotics) Home Medications Medication Instructions Recorded Confirmed Type amlodipine 10 mg PO DAILY 09/20/20 09/20/20 History enalapril maleate 20 mg PO BID 09/20/20 09/20/20 History glimepiride 4 mg PO BID 09/20/20 09/20/20 History hydralazine 25 mg PO BID 09/20/20 09/20/20 History hydrochlorothiazide 25 mg PO DAILY 09/20/20 09/20/20 History levothyroxine 75 mcg PO DAILY 09/20/20 09/20/20 History metformin 500 mg PO BID 09/20/20 09/20/20 History metoprolol succinate 50 mg PO DAILY 09/20/20 09/20/20 History tramadol 50 mg PO TID PRN 09/20/20 09/20/20 History Physical Exam Vital Signs: Vital Signs: Last Vital Signs Temp 97.8 F 09/21/20 07:07 Pulse 69 09/21/20 10:50 Resp 15 09/21/20 10:50 BP 156/69 H 09/21/20 10:50 Pulse Ox 96 09/21/20 10:50 Body Mass Index 24.7 Const: General: cooperative, comfortable and no acute distress Orientation/consciousness: patient oriented x3 HENMT: Other: Unremarkable Neck: Neck: Yes normal visual inspection Chest: Chest palpation & inspection: normal inspection of the chest Resp: Auscultation: clear to auscultation bilaterally, no crackles and no wheezes Cardio: Jugular venous distension: no JVD Palpation: normal PMI Heart sounds: S1 normal heart sound present, S2 normal heart sound present, no gallops, Murmur heart sound present systolic early, III/ and at the right sternal border and no rubs GI: Palpation (GI): Soft to palpation Back/Spine/Pelvis: Other: unremarkable Skin: General skin exam: no rashes or lesions noted Neuro: General: patient oriented x3 Extrem: General: Yes no clubbing, cyanosis or edema Psych: Mental Status: mental status grossly normal Results Labs and Meds Result diagrams: 09/21/20 05:47 09/21/20 05:47 Lab results: Laboratory Results - last 24 hr 09/20/20 09/20/20 09/20/20 15:54 15:54 15:54 WBC 7.1 RBC 3.71 L Hgb 11.0 L Hct 34.0 L MCV 91.6 MCH 29.6 MCHC 32.4 RDW 13.7 Plt Count 308 MPV 11.1 Immature Gran % (Auto) 0.3 Neut % (Auto) 75.4 H Lymph % (Auto) 17.1 L [place] % (Auto) 5.1 Eos % (Auto) 1.4 Baso % (Auto) 0.7 Lymph # (Auto) 1.2 [place] # (Auto) 0.4 Eos # (Auto) 0.1 Baso # (Auto) 0.1 Abs Immat Gran (auto) 0.02 Absolute Neuts (auto) 5.3 Absolute Nucleated RBC 0.000 Nucleated RBC % (auto) 0.0 Sodium 141 Potassium 4.2 Chloride 105 Carbon Dioxide 26 Anion Gap 14 BUN 20 H Creatinine 1.46 H Estim Creat Clear Calc 26.2 Estimated GFR 34 POC Glucose Random Glucose 171 H Calcium 9.2 Troponin I High Sens 39.1 H TSH 3.25 Urine Color Urine Appearance Urine pH Ur Specific [place] Urine Protein Urine Glucose (UA) Urine Ketones Urine Blood Urine Nitrite Ur Leukocyte Esterase Urine RBC Urine WBC Ur Squamous Epith Cells Ur Renal Epithelial Cell Urine Bacteria COVID-19 (MILA) COVID-19 [employer] Com 09/20/20 09/20/20 09/20/20 18:38 18:42 21:47 WBC RBC Hgb Hct MCV MCH MCHC RDW Plt Count MPV Immature Gran % (Auto) Neut % (Auto) Lymph % (Auto) [place] % (Auto) Eos % (Auto) Baso % (Auto) Lymph # (Auto) [place] # (Auto) Eos # (Auto) Baso # (Auto) Abs Immat Gran (auto) Absolute Neuts (auto) Absolute Nucleated RBC Nucleated RBC % (auto) Sodium Potassium Chloride Carbon Dioxide Anion Gap BUN Creatinine Estim Creat Clear Calc Estimated GFR POC Glucose Random Glucose Calcium Troponin I High Sens 59.7 H D 63.3 H TSH Urine Color Urine Appearance Urine pH Ur Specific [place] Urine Protein Urine Glucose (UA) Urine Ketones Urine Blood Urine Nitrite Ur Leukocyte Esterase Urine RBC Urine WBC Ur Squamous Epith Cells Ur Renal Epithelial Cell Urine Bacteria COVID-19 (MILA) Negative COVID-19 Clin Com See Note 09/21/20 09/21/20 09/21/20 01:22 05:47 05:47 WBC 8.4 RBC 3.91 L Hgb 11.7 L Hct 36.1 L MCV 92.3 MCH 29.9 MCHC 32.4 RDW 13.9 Plt Count 310 MPV 10.7 Immature Gran % (Auto) 0.2 Neut % (Auto) 65.9 Lymph % (Auto) 23.0 [place] % (Auto) 7.1 Eos % (Auto) 3.1 Baso % (Auto) 0.7 Lymph # (Auto) 1.9 [place] # (Auto) 0.6 Eos # (Auto) 0.3 Baso # (Auto) 0.1 Abs Immat Gran (auto) 0.02 Absolute Neuts (auto) 5.5 Absolute Nucleated RBC 0.000 Nucleated RBC % (auto) 0.0 Sodium 141 Potassium 3.7 Chloride 103 Carbon Dioxide 26 Anion Gap 16 BUN 21 H Creatinine 1.25 Estim Creat Clear Calc 30.5 Estimated GFR 41 POC Glucose 141 H Random Glucose 177 H Calcium 9.4 Troponin I High Sens TSH Urine Color Urine Appearance Urine pH Ur Specific [place] Urine Protein Urine Glucose (UA) Urine Ketones Urine Blood Urine Nitrite Ur Leukocyte Esterase Urine RBC Urine WBC Ur Squamous Epith Cells Ur Renal Epithelial Cell Urine Bacteria COVID-19 (MILA) COVID-19 That{img} 09/21/20 09/21/20 07:09 10:55 WBC RBC Hgb Hct MCV MCH MCHC RDW Plt Count MPV Immature Gran % (Auto) Neut % (Auto) Lymph % (Auto) [place] % (Auto) Eos % (Auto) Baso % (Auto) Lymph # (Auto) [place] # (Auto) Eos # (Auto) Baso # (Auto) Abs Immat Gran (auto) Absolute Neuts (auto) Absolute Nucleated RBC Nucleated RBC % (auto) Sodium Potassium Chloride Carbon Dioxide Anion Gap BUN Creatinine Estim Creat Clear Calc Estimated GFR POC Glucose 169 H Random Glucose Calcium Troponin I High Sens TSH Urine Color YELLOW Urine Appearance HAZY Urine pH 5.5 Ur Specific [place] >= 1.030 H Urine Protein 2+ H Urine Glucose (UA) NEG Urine Ketones NEG Urine Blood TRACE Urine Nitrite NEG Ur Leukocyte Esterase 1+ H Urine RBC 0-2 Urine WBC 5-9 H Ur Squamous Epith Cells TRACE Ur Renal Epithelial Cell TRACE Urine Bacteria TRACE COVID-19 (MILA) COVID-19 Clin Com ECG Attestation: I personally reviewed and interpreted this ECG as follows: Interpretation: EKG with sinus rhythm at 67/Min; leftward axis; left ventricular hypertrophy/ nonspecific ST-T changes; cannot exclude old anteroseptal infarct. Overall, grossly similar to prior. Imaging Radiologist's impression: Impressions Head CT 09/20/20 15:27 IMPRESSION: No acute intracranial process seen. Hypodensity left precentral gyrus question acute versus chronic infarct. There are no previous exam available for comparison. Age-related moderate cerebral atrophy with chronic small vessel ischemic changes. Bilateral frontal and parietal scalp calcified lesions questions sebaceous cyst versus neurofibromas. Assessment and Plan (1) Atherosclerotic cardiovascular disease: Status: Acute (2) Fall: Qualifiers: Encounter type: initial encounter Qualified Code(s): W19.XXXA - Unspeci fied fall, initial encounter Status: Acute (3) Elevated troponin: Status: Acute (4) Non-rheumatic aortic stenosis: Status: Acute Cardiac studies were reviewed. She underwent cardiac catheterization in 2019. At that time, findings included-left main-normal; LAD-patent stent in LAD; diagonal had long 70% stenosis but small sized vessel; circumflex-distal 40% stenosis; right coronary artery mild luminal irregularities. Echocardiogram from 2019-LVEF 55-60%; possible basal inferior hypokinesis; grade 2 diastolic dysfunction; mild aortic stenosis; [id number] tricuspid regurgitation and moderate pulmonary hypertension. Elevated troponins could be from fall and demand ischemia. Clinically, she has no symptoms whatsoever. Treat for stable CAD including aspirin, beta- blockers, blood pressure medications and statins. Her blood pressure is clearly elevated. I am not sure if she actually takes her meds at home or not. Can consider adding JANES inhibitors or ARB vs going up on hydralazine dosing. Will also need to address her living situation.
[2020-09-21 12:43] LABS: Glucose, Whole Blood 184 mg/dL (60-115)
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
--- NOTE | 2020-09-21 15:57 | PC.NURSE ---
call to [facility] for report. no answer at pod from RN
--- NOTE | 2020-09-21 17:42 | HO.PM.IMPN ---
Subjective Subjective Date of Service: 09/21/20 Interval History: Advanced dementia, Question of UTI/toxic metabolic encephalopathy Review of Systems Patient is sitting and eating breakfast, seems more alert this morning but still confused. Denies any chest pain or shortness of breath or abdominal pain-poor historian. Physical Exam Vital Signs: Vital Signs: Last Vital Signs Temp 97.8 F 09/21/20 07:07 Pulse 69 09/21/20 16:00 Resp 16 09/21/20 16:00 BP 156/69 H 09/21/20 16:00 Pulse Ox 100 09/21/20 16:00 Body Mass Index 24.7 Physical exam: Constitutional :not in acute distress. Cvs: rrr, [id number] , no murmur res: clear to auscultation ,no rhonchii or wheezing abd: no rebound or guarding ,nt, bs present. ext pulses present , no cyanosis neuro: More awake and alert , nonfocal. Objective Data Current Medications Generic Name Dose Route Start Last Admin Trade Name Freq PRN Reason Stop Dose Admin Acetaminophen 650 mg 09/20/20 23:12 Acetaminophen Supp [address] Q6H PRN Pain, Mild (Pain Scale 1-3) Amlodipine Besylate 10 mg 09/21/20 09:00 09/21/20 10:52 Amlodipine Besylate 10 Mg Tablet PO 10 mg DAILY [facility] Administration Protocol Aspirin 81 mg 09/21/20 09:00 09/21/20 10:53 Aspirin 81 Mg Tab.Chew PO 81 mg DAILY RAGHAVENDRA Administration Hydralazine HCl 25 mg 09/21/20 09:00 09/21/20 10:53 Hydralazine Hcl 25 Mg Tablet PO 25 mg BID RAGHAVENDRA Administration Protocol Insulin Human Lispro 0 unit 09/21/20 07:30 09/21/20 12:43 Insulin Lispro 100 Unit/Ml 3 Ml Vial SUBCUT 2 unit QIDACHS [facility] Administration Protocol Levothyroxine Sodium 75 mcg 09/21/20 06:30 09/21/20 05:57 Levothyroxine Sodium 75 Mcg Tablet PO 75 mcg DAILY@0630 RAGHAVENDRA Administration Metoprolol Succinate 50 mg 09/21/20 09:00 09/21/20 10:53 Metoprolol Succinate Er 50 Mg Tab.Er.24h PO 50 mg DAILY RAGHAVENDRA Administration Protocol Pharmacy Consult 1 each 09/20/20 18:27 Consult Rx Perform Med Rec MISCELLANE ONCE PRN Consult order Sodium Chloride 3 ml 09/21/20 00:00 09/21/20 07:14 0.9 % Sodium Chloride Flush 3 Ml Syringe IVFLUSH 3 ml QSHIFT [facility] Administration Labs CBC & Chem 7: 09/21/20 05:47 09/21/20 05:47 Assessment and Plan (1) UTI (urinary tract infection): Status: Acute (2) Elevated troponin: Status: Acute Assessment and Plan: 85-year-old female with a past medical history of hypertension, hyperlipidemia, diabetes, hypothyroidism, CAD with stents presented to the hospital with a chief complaint of fall. Noted to have elevated troponins admitted to the hospital for further management. Advanced dementia: Supportive care Question of Likely toxic metabolic encephalopathy/ uti : Started on ceftriaxone seems like patient received ceftriaxone last year, urine culture pending. CAD/Elevated troponins: She underwent cardiac catheterization in 2019. At that time, findings included-left main-normal; LAD-patent stent in LAD; diagonal had long 70% stenosis but small sized vessel; circumflex-distal 40% stenosis; right coronary artery mild luminal irregularities. Echocardiogram from 2019-LVEF 55-60%; possible basal inferior hypokinesis; grade 2 diastolic dysfunction; mild aortic stenosis; [id number] tricuspid regurgitation and moderate pulmonary hypertension. Elevated troponins could be from fall and demand ischemia. Clinically, she has no symptoms whatsoever. Treat for stable CAD including aspirin, beta-blockers, blood pressure medications and statins Fall: Telemetry seems fine Echo seems :The left ventricular systolic function is normal. The visually estimated ejection fraction is between 55-60%. - There is mild to moderate aortic valve stenosis. - There is mild mitral annular calcification. PT/OT. Diabetes: 140-170 range, Insulin sliding scale avoid coverage below. 200 mg/dL. Hypertension/hyperlipidemia: Blood pressure is improving with current medications including hydralazine, amlodipine, metoprolol, we will adjust hydralazine if needed to be for blood pressure. Slightly anxiety also might be contributing Poor home conditions: Case management/protective services social worker consult in the morning Discussed with case management patient will need psych evaluation for competency unclear situation at home and patient does not seem like understand the situation.
[2020-09-21] MEDS: Haloperidol Lactate 5 MG/ML VIAL 2 MG IM (18:31)
[2020-09-21 19:20] LABS: Glucose, Whole Blood 166 mg/dL (60-115)
[2020-09-21] MEDS: cefTRIAXone sodium 1 GM in 0.9 % Sodium Chloride 50 ML IV (19:28)
[2020-09-21 21:04] LABS: Glucose, Whole Blood 229 mg/dL (60-115)
--- NOTE | 2020-09-21 21:47 | PC.NURSE ---
Addendum entered by Lynne Burch RN 09/21/20 22:59: at 2140 pt HR dipping into 40s - 30s at times, showing a few pauses 2-3sec, longest being 3.6sec - assessed pt - pacer pads applied, pt was sleeping no complaints, but poor historian at baseline, HR then seen to go to 29. MD contacted, agreed about pacer pads - new PRN atropine PRN if HR <25 ordered. Will cont to closely monitor on tele and report to oncoming RN. sitter remains at bedside. Original Note: pt to [facility] approx [phone] Pt still presenting agitated, 1:1 sitter at bedside, pt wanting to go home and leave, worried about getting her kids to school in the morning When asking pt time/situation/place pt not being able to tell us but when we tell her shes in the hospital she says i know that but asking to go home. Pt had been refusing tele monitor most of the day per report. Around 2144 pt was getting sleepy, we were able to get tele pack back on pt. VSS afebrile. BP 142/62 HR 60s SR at this time. o2 94% on room air. skin in tact, pale/loose with some bruising, nothing open. lungs clear. ate 25 % of dinner. high fall risk measures and 1:[address] took pills whole w/water covering POC w/SSI
--- NOTE | 2020-09-21 22:50 | PM.EVENT ---
Event Note Date of Service: 09/21/20 Event Note: Bradycardia: Patient intermittently bradycardic, lowest noted to be 29 beats; patient also had 2nd pause. Currently asymptomatic. Atropine on-call for heart rate less than 25 or pause greater than 4 seconds. continue to monitor on tele Cardiology has seen the patient today. Will defer to the a.m. team to follow up with Cardiology in regards bradycardia. Metoprolol with holding parameters
[2020-09-22] VITALS (8 sets, daily range): BP systolic 151–169; BP diastolic 58–83; PULSE 46–67; RESP 16–18; TEMP 36.3–36.9; O2SAT 91–98
[2020-09-22] MEDS: 0.9 % Sodium Chloride Flush 3 ML SYRINGE IVFLUSH ×4 (00:10→19:59)
--- NOTE | 2020-09-22 00:12 | PC.NURSE ---
Upon arrival, PT HR maritza in the 30's and 40's on the monitor. PT was sleeping and arousable, when this RN woke the PT up her HR went to the 60's . MD came to the floor and noted rate on the monitor and this RN reported her HR in the 60's when woken up. MD suggested this RN continue to wake the PT up. Sitter is still at bedside.
[2020-09-22] MEDS: Levothyroxine Sodium 75 MCG TABLET PO (05:54)
[2020-09-22 07:32] LABS: Glucose, Whole Blood 126 mg/dL (60-115)
[2020-09-22] MEDS: amLODIPine Besylate 10 MG TABLET PO (08:13)
[2020-09-22] MEDS: hydrALAZINE HCl 25 MG TABLET PO (08:14)
[2020-09-22] MEDS: Aspirin 81 MG TAB.CHEW PO (08:14)
--- NOTE | 2020-09-22 08:44 | MHC.CM.PN ---
Received return telephone call from Auto Service Instructor Vannessa. She needs the completed medical certification and 2 signature pages completed. If she receives them by the end of the day, she will be able to go to court on Friday. [facility] [employer] aware. Continue to monitor for d/c needs.
[2020-09-22 11:29] LABS: Glucose, Whole Blood 273 mg/dL (60-115)
[2020-09-22] MEDS: Insulin Lispro 100 UNIT/ML 3 ML VIAL SUBCUT ×2 (11:41→19:59)
--- NOTE | 2020-09-22 13:30 | MHC.CM.PN ---
DP Documentation required for court is in progress. Dedenter is managing the completion of the Document. CM will follow.
--- NOTE | 2020-09-22 14:25 | PM.PNCARD ---
Subjective Subjective Date of Service: 09/22/20 Interval history: She states that she feels okay. No specific complaints. Review of Systems Review of Systems Yes all other systems are reviewed and are negative Constitutional: Reports as per HPI Cardiovascular: Reports as per HPI, Reports no additional cardiovascular complaints, Denies acrocyanosis, Denies cool extremities, Denies painful fingertips, Denies chest pain, Denies chest pain at rest, Denies diaphoresis, Denies syncope, Denies irregular heart rhythm, Denies claudication, Denies leg edema, Denies lightheadedness, Denies palpitations and Denies dyspnea Respiratory: Denies dyspnea Denies syncope Endocrine: Denies palpitations Physical Exam Vital Signs: Last Vital Signs Temp 97.7 F 09/22/20 10:56 Pulse 50 09/22/20 10:56 Resp 18 09/22/20 10:56 BP 157/58 H 09/22/20 10:56 Pulse Ox 96 09/22/20 10:56 Body Mass Index 24.7 Const General: cooperative, comfortable and no acute distress Orientation/consciousness: patient oriented x3 HENMT Other: Unremarkable Neck Neck: Yes normal visual inspection Chest Chest palpation & inspection: normal inspection of the chest Resp Auscultation: clear to auscultation bilaterally, no crackles and no wheezes Cardio Jugular venous distension: no JVD Palpation: normal PMI Heart sounds: S1 normal heart sound present, S2 normal heart sound present, no gallops, Murmur heart sound present systolic early, III/ and at the right sternal border and no rubs GI Palpation (GI): Soft to palpation Back/Spine/Pelvis Other: unremarkable Skin General skin exam: no rashes or lesions noted Neuro General: patient oriented x3 Extrem General: Yes no clubbing, cyanosis or edema Psych Mental Status: mental status grossly normal Results Labs and Meds Result diagrams: 09/21/20 05:47 09/21/20 05:47 Lab results: Laboratory Results - last 24 hr 09/21/20 09/21/20 09/22/20 19:16 20:46 07:14 POC Glucose 166 H 229 H 126 H 09/22/20 11:22 POC Glucose 273 H ECG Attestation: I personally reviewed and interpreted this ECG as follows: Interpretation: Telemetry with underlying sinus bradycardia in the 50s. Sleep time pauses of approximately 3.1 seconds. Progress Note: A&P Assessment and plan (1) Atherosclerotic cardiovascular disease: Status: Acute (2) Fall: Status: Acute (3) Elevated troponin: Status: Acute (4) Non-rheumatic aortic stenosis: Status: Acute Assessment and Plan: Cardiac studies were reviewed. She underwent cardiac catheterization in 2019. At that time, findings included-left main-normal; LAD-patent stent in LAD; diagonal had long 70% stenosis but small sized vessel; circumflex-distal 40% stenosis; right coronary artery mild luminal irregularities. Echocardiogram from 2019-LVEF 55-60%; possible basal inferior hypokinesis; grade 2 diastolic dysfunction; mild aortic stenosis; [id number] tricuspid regurgitation and moderate pulmonary hypertension. Repeat echocardiogram is also similar. Elevated troponins could be from fall and demand ischemia. Clinically, she has no symptoms whatsoever. Treat for stable CAD including aspirin, beta-blockers, blood pressure medications and statins. Her blood pressure is clearly elevated. I am not sure if she actually takes her meds at home or not. Can consider adding JANES inhibitors or ARB vs going up on hydralazine dosing. Due to nighttime bradycardia and pauses, can cut back on beta-blockers. Will also need to address her living situation. Fall Risk Details Current Medications: Current Medications Generic Name Dose Route Start Last Admin Trade Name Freq PRN Reason Stop Dose Admin Acetaminophen 650 mg 09/20/20 23:12 Acetaminophen Supp 650 Mg Supp.Rect [place] Q6H PRN Pain, Mild (Pain Scale 1-3) Amlodipine Besylate 10 mg 09/21/20 09:00 09/22/20 08:13 Amlodipine Besylate 10 Mg Tablet PO 10 mg DAILY ARGHAVENDRA Administration Protocol Aspirin 81 mg 09/21/20 09:00 09/22/20 08:14 Aspirin 81 Mg Tab.Chew PO 81 mg DAILY RAGHAVENDRA Administration Atropine Sulfate 0.5 mg 09/21/20 22:51 Atropine Sulfate 1 Mg/Ml Vial IVPUSH ONCE PRN HR<25 Hydralazine HCl 50 mg 09/22/20 09:00 09/22/20 09:30 Hydralazine Hcl 25 Mg Tablet PO Not Given BID RAGHAVENDRA Protocol Ceftriaxone Sodium 1 gm/ 50 mls @ 100 mls/hr 09/21/20 18:00 09/21/20 20:53 Sodium Chloride IV Infused Q24H RAGHAVENDRA Infusion Insulin Human Lispro 0 unit 09/21/20 07:30 09/22/20 11:41 Insulin Lispro 100 Unit/Ml 3 Ml Vial SUBCUT 6 unit QIDACHS [facility] Administration Protocol Levothyroxine Sodium 75 mcg 09/21/20 06:30 09/22/20 05:54 Levothyroxine Sodium 75 Mcg Tablet PO 75 mcg DAILY@0630 RAGHAVENDRA Administration Metoprolol Succinate 50 mg 09/21/20 09:00 09/22/20 08:15 Metoprolol Succinate Er 50 Mg Tab.Er.24h PO Not Given DAILY [facility] Protocol Pharmacy Consult 1 each 09/20/20 18:27 Consult Rx Perform Med Rec MISCELLANE ONCE PRN Consult order Sodium Chloride 3 ml 09/21/20 00:00 09/22/20 08:14 0.9 % Sodium Chloride Flush 3 Ml Syringe IVFLUSH 3 ml QSHIFT RAGHAVENDRA Administration Time Spent With Patient Time: Total time spent is greater than 50% in coordination of care (as documented) at patient's floor/unit and/or counseling patient: Time with patient: less than 15 minutes
--- NOTE | 2020-09-22 15:44 | PM.GPSY.CONS ---
Geriatric Psych - HPI History of Present Illness Date of Service: 09/22/20 Chief complaint: FALL Narrative: 85-year-old female with a past medical history of hypertension, hyperlipidemia, diabetes, hypothyroidism, CAD with stents presented to the hospital with a chief complaint of fall. Noted to have elevated troponins admitted to the hospital for further management. Pt appeared confused on admission. This typewriter assembly and parts inspector was asked to complete capacity assessment. Today, Ms. Bradley is sitting in chair. She is pleasant on approach. She appears unkept, hair tangled. Pt reports she wants to go home and is asking this typewriter assembly and parts inspector if I can assist with that. When asked pt is unable to tell this typewriter assembly and parts inspector where she is or what kind of place she is. She reports she is here because her and her felt. She notes that her is at the hospital but she is not sure which one. When asked about reason for admission. She states no one has talked to me about that, I don't know why I am here. Pt reminded that she had elevated troponins and was admitted for further cardiac work up. She appeared surprise. She reports has stents and her heart is fine. Pt continues to ask that she wants to go home. When asked about supports at home, pt reports her main support is her - who it was reported was at [facility], possibly ICU. When discussing HCP, pt understands what this means in the sense that she states she would like to have her son make decisions if she is not able to do so. She does not think at this point she needs one. However, per documentation from ED, SW reached to her sons who report they have not had much contact with Mrs. Bradley and do not want to be involved in her care. This typewriter assembly and parts inspector brought this up with pt, pt reports that it is true that she has not been close to her 4 sons as she her first and 4 sons father due to alcohol issues that ex had and this affected her relationship with them. It is concerning per EMS, state of the house and pt's ability to care for herself. As mentioned before, she does seem disheveled and unkept beyong her short hospital stay. Pt otherwise denies any other concerns in terms of depression, suicidal or homicidal thoughts. She denies VH/AH and does not appear to be internally preoccupied. Geriatric Psychiatry - ROS ENT Denies dizziness Cardiovascular Cardiovascular: Denies syncope Neurologic Reports system reviewed and no additional complaints, except as documented, Reports Abnormal speech present, Denies dizziness, Denies syncope and Denies Sensory deficit (Neuro) Geriatric Psychiatry - Results Labs CBC & Chem 7: 09/21/20 05:47 09/21/20 05:47 Microbiology Microbiology Results: Microbiology 09/21/20 Unknown Urine clean catch - Clean Catch Midstream Urine Culture - Final No growth. Geriatric Psychiatry - [facility] Past Medical History Medical History (Updated 09/22/20 @ 16:06 by Megan Hernandez) Atherosclerotic cardiovascular disease Diabetes HTN (hypertension) Non-rheumatic aortic stenosis Social History Social History Household Members: Spouse Housing: Unknown / Unable to assess Alcohol intake: never Smoking Status: Never smoker service: No Current occupational status: retired [email or web address] Allergies Allergy/AdvReac Type Severity Reaction Status Date / Time Penicillins [PCN] Allergy Mild HIVES Unverified 05/04/20 15:56 ciprofloxacin [Cipro] Allergy Unknown Verified 07/22/19 00:00 penicillin V Allergy Unknown Verified 07/22/19 00:00 Sulfa (Sulfonamide Allergy Unknown Verified 07/22/19 00:00 Antibiotics) Home Medications Medication Instructions Recorded Confirmed Type amlodipine 10 mg PO DAILY 09/20/20 09/20/20 History enalapril maleate 20 mg PO BID 09/20/20 09/20/20 History glimepiride 4 mg PO BID 09/20/20 09/20/20 History hydralazine 25 mg PO BID 09/20/20 09/20/20 History hydrochlorothiazide 25 mg PO DAILY 09/20/20 09/20/20 History levothyroxine 75 mcg PO DAILY 09/20/20 09/20/20 History metformin 500 mg PO BID 09/20/20 09/20/20 History metoprolol succinate 50 mg PO DAILY 09/20/20 09/20/20 History tramadol 50 mg PO TID PRN 09/20/20 09/20/20 History Geriatric Psychiatry - Exam Vital Signs and I&O: Vital Signs Temp 97.7 F 09/22/20 10:56 Pulse 50 09/22/20 10:56 Resp 18 09/22/20 10:56 BP 157/58 H 09/22/20 10:56 Pulse Ox 96 09/22/20 10:56 Intake & Output 09/21/20 09/22/20 09/22/20 18:59 06:59 18:59 Intake Total 530 / 530 360 / 360 Balance 530 / 530 360 / 360 Intake: Intake, Oral Amount 480 / 480 360 / 360 Intake, IV Amount 50 / 50 cefTRIAXone sodium 1 gm In 0.9 50 / 50 % Sodium Chloride 50 ml @ 100 mls/hr IV Q24H [facility] Rx#: [id number] Other: Meal Refused No Breakfast % Eaten 50% Lunch % Eaten 100% Number of Unmeasured Voids 1 Urine Bathroom Narrative Exam Narrative: MSE: Appearance: thin, malnourish woman, wearing hospital gown, in NAD Behavior: calm, cooperative. Psychomotor: no agitation or retardation noted Speech: clear, regular rate mostly, at times some slowed response as if looking for word, spontaneous. TP: tangential, no loose associations TC: no overt signs of psychosis, wanting to retunr home Mood: good Affect: congruent, bright, non labile AH/VH: nnone Insight/judgment: impaired x 2. Memory/cog: alert, oriented to year (but this fluctuates as earlier today she thought it was 2003, not to month, place or situation. ) Neuro Speech: Abnormal speech present Sensory Exam: No Sensory deficit (Neuro) Geriatric Psychiatry - A/P Assessment and plan (1) Neurocognitive disorder: Status: Acute Assessment and Plan: Ms. Bradley is a 85 year-old woman brought via EMS after apparenrtly she felt. She was admitted for elevated troponins. She was noted to be confused and disoriented. Capacity assessment was requested. Pt appears to have underlying memory impairements including disorientation mostly to place and situatio and overall memory problems affecting her ability to retain recent informationn. Although she is at times able to tell the year and that this may be a hospital, pt is not able to understand medical reason for what she is currently being evaluated; mainly elevated troponins and further cardiac work up. Pt appears to lack understanding, appreciation of medical condition, risks, versus benefits of accepting or rejecting treatment. However, pt does understand what a HCP means. Given that capacity assessment is specific to a task, pt LACKS capacity to make medical decisions but is able to show capacity to appoint HCP.
[2020-09-22 16:43] LABS: Glucose, Whole Blood 117 mg/dL (60-115)
--- NOTE | 2020-09-22 17:17 | HO.PM.IMPN ---
Subjective Subjective Date of Service: 09/23/20 Interval History: Dementia with behavioral changes, bradycardia overnight -? Mostly asymptomatic Review of Systems Patient seems slightly more awake could able to tell her name and the hospital Denies any chest pain or shortness of breath or new complaints Physical Exam Vital Signs: Vital Signs: Last Vital Signs Temp 98.1 F 09/22/20 15:54 Pulse 46 L 09/22/20 15:54 Resp 18 09/22/20 15:54 BP 169/74 H 09/22/20 15:54 Pulse Ox 98 09/22/20 15:54 Body Mass Index 24.7 Physical exam: Constitutional: Not in acute distress Cvs: Bradycardia, [id number] , no murmur res: clear to auscultation ,no rhonchii or wheezing abd: no rebound or guarding ,nt, bs present. ext pulses present , no cyanosis neuro: axo3 , nonfocal. Objective Data Current Medications Generic Name Dose Route Start Last Admin Trade Name Freq PRN Reason Stop Dose Admin Acetaminophen 650 mg 09/20/20 23:12 Acetaminophen Supp 650 Mg Supp.Rect IA Q6H PRN Pain, Mild (Pain Scale 1-3) Amlodipine Besylate 10 mg 09/21/20 09:00 09/22/20 08:13 Amlodipine Besylate 10 Mg Tablet PO 10 mg DAILY RAGHAVENDRA Administration Protocol Aspirin 81 mg 09/21/20 09:00 09/22/20 08:14 Aspirin 81 Mg Tab.Chew PO 81 mg DAILY RAGHAVENDRA Administration Atropine Sulfate 0.5 mg 09/21/20 22:51 Atropine Sulfate 1 Mg/Ml Vial IVPUSH ONCE PRN HR<25 Hydralazine HCl 50 mg 09/22/20 09:00 09/22/20 09:30 Hydralazine Hcl 25 Mg Tablet PO Not Given BID RAGHAVENDRA Protocol Ceftriaxone Sodium 1 gm/ 50 mls @ 100 mls/hr 09/21/20 18:00 09/21/20 20:53 Sodium Chloride IV Infused Q24H RAGHAVENDRA Infusion Insulin Human Lispro 0 unit 09/21/20 07:30 09/22/20 11:41 Insulin Lispro 100 Unit/Ml 3 Ml Vial SUBCUT 6 unit QIDACHS RAGHAVENDRA Administration Protocol Levothyroxine Sodium 75 mcg 09/21/20 06:30 09/22/20 05:54 Levothyroxine Sodium 75 Mcg Tablet PO 75 mcg DAILY@0630 RAGHAVENDRA Administration Metoprolol Succinate 50 mg 09/21/20 09:00 09/22/20 08:15 Metoprolol Succinate Er 50 Mg Tab.Er.24h PO Not Given DAILY [facility] Protocol Pharmacy Consult 1 each 09/20/20 18:27 Consult Rx Perform Med Rec MISCELLANE ONCE PRN Consult order Sodium Chloride 3 ml 09/21/20 00:00 09/22/20 08:14 0.9 % Sodium Chloride Flush 3 Ml Syringe IVFLUSH 3 ml QSHIFT [facility] Administration Labs CBC & Chem 7: 09/21/20 05:47 09/21/20 05:47 Microbiology Microbiology Results: Microbiology 09/21/20 Unknown Urine clean catch - Clean Catch Midstream Urine Culture - Final No growth. Assessment and Plan (1) UTI (urinary tract infection): Status: Acute (2) Fall: Status: Acute (3) Elevated troponin: Status: Acute Assessment and Plan: 85-year-old female with a past medical history of hypertension, hyperlipidemia, diabetes, hypothyroidism, CAD with stents presented to the hospital with a chief complaint of fall. Noted to have elevated troponins admitted to the hospital for further management. 1.Advanced dementia: Supportive care Question of Likely toxic metabolic encephalopathy/ uti : Started on ceftriaxone seems like patient received ceftriaxone last year, urine culture pending. Psych saw the patient- ed with case management patient will need psych evaluation for competency unclear situation at home and patient does not seem like understand the situation-seen by psych :seems pt Lacks capacity to make medical decisions but is able to show capacity to appoint HCP. d/w case management- due to poor home environment, her sick and admitted to [facility], lack capacity to make medical decisions but able to make it hcp-? may need guardianship 2.CAD/Elevated troponins: She underwent cardiac catheterization in 2019. At that time, findings included-left main-normal; LAD-patent stent in LAD; diagonal had long 70% stenosis but small sized vessel; circumflex-distal 40% stenosis; right coronary artery mild luminal irregularities. Echocardiogram from 2019-LVEF 55-60%; possible basal inferior hypokinesis; grade 2 diastolic dysfunction; mild aortic stenosis; [id number] tricuspid regurgitation and moderate pulmonary hypertension. Elevated troponins could be from fall and demand ischemia. Clinically, she has no symptoms whatsoever. Treat for stable CAD including aspirin, and statins Discussed with cardio probably bradycardia may be related to beta-derrek so decrease the dose of beta-derrek. 3.Fall: Telemetry seems fine Echo seems :The left ventricular systolic function is normal. The visually estimated ejection fraction is between 55-60%. - There is mild to moderate aortic valve stenosis. - There is mild mitral annular calcification. PT/OT. 4.Diabetes: 114-200 range, Insulin sliding scale avoid coverage below. 200 mg/dL. 5.Hypertension/hyperlipidemia: Blood pressure is improving with current medications including hydralazine, amlodipine, metoprolol, adjusted hydralazine. Slightly anxiety also might be contributing Poor home conditions: Case management/social media campaign manager consult in the morning Psych evaluation for capacity-may need guardianship if has no capacity (4) Bradycardia: Status: Acute
[2020-09-22] MEDS: cefTRIAXone sodium 1 GM in 0.9 % Sodium Chloride 50 ML IV (18:12)
[2020-09-22 19:50] LABS: Glucose, Whole Blood 324 mg/dL (60-115)
[2020-09-22] MEDS: hydrALAZINE HCl 25 MG TABLET 50 MG PO (19:59)
[2020-09-23] VITALS (9 sets, daily range): BP systolic 165–194; BP diastolic 64–94; PULSE 56–80; RESP 16–18; TEMP 36.2–36.8; O2SAT 93–98
[2020-09-23] MEDS: Levothyroxine Sodium 75 MCG TABLET PO (06:12)
[2020-09-23 07:07] LABS: Glucose, Whole Blood 165 mg/dL (60-115)
[2020-09-23] MEDS: Insulin Lispro 100 UNIT/ML 3 ML VIAL SUBCUT ×3 (08:00→21:08)
[2020-09-23] MEDS: amLODIPine Besylate 10 MG TABLET PO (08:01)
[2020-09-23] MEDS: 0.9 % Sodium Chloride Flush 3 ML SYRINGE IVFLUSH ×3 (08:01→20:14)
[2020-09-23] MEDS: hydrALAZINE HCl 25 MG TABLET 50 MG PO ×2 (08:01→20:11)
[2020-09-23] MEDS: Aspirin 81 MG TAB.CHEW PO (08:02)
[2020-09-23 11:26] LABS: Glucose, Whole Blood 146 mg/dL (60-115)
--- NOTE | 2020-09-23 14:25 | HO.PM.IMPN ---
Subjective Subjective Date of Service: 09/24/20 Interval History: Advanced dementia, bradycardia Review of Systems Denies any chest pain or shortness of breath or abdominal pain or fever or chills Physical Exam Vital Signs: Vital Signs: Last Vital Signs Temp 97.9 F 09/23/20 11:10 Pulse 56 09/23/20 11:10 Resp 18 09/23/20 11:10 BP 165/64 H 09/23/20 11:10 Pulse Ox 95 09/23/20 11:10 Body Mass Index 24.7 Physical exam: Constitutional: Not in acute distress HEENT: Eyes: Anicteric ,no discharge Cvs: rrr, [id number] , no murmur res: clear to auscultation ,no rhonchii or wheezing abd: no rebound or guarding ,nt, bs present. ext pulses present , no cyanosis neuro: more awake,nonfocal. Objective Data Current Medications Generic Name Dose Route Start Last Admin Trade Name Freq PRN Reason Stop Dose Admin Acetaminophen 650 mg 09/20/20 23:12 Acetaminophen Supp 650 Mg Supp.Rect NH Q6H PRN Pain, Mild (Pain Scale 1-3) Amlodipine Besylate 10 mg 09/21/20 09:00 09/23/20 08:01 Amlodipine Besylate 10 Mg Tablet PO 10 mg DAILY RAGHAVENDRA Administration Protocol Aspirin 81 mg 09/21/20 09:00 09/23/20 08:02 Aspirin 81 Mg Tab.Chew PO 81 mg DAILY RAGHAVENDRA Administration Atropine Sulfate 0.5 mg 09/21/20 22:51 Atropine Sulfate 1 Mg/Ml Vial IVPUSH ONCE PRN HR<25 Hydralazine HCl 50 mg 09/22/20 09:00 09/23/20 08:01 Hydralazine Hcl 25 Mg Tablet PO 50 mg BID RAGHAVENDRA Administration Protocol Ceftriaxone Sodium 1 gm/ 50 mls @ 100 mls/hr 09/21/20 18:00 09/22/20 19:33 Sodium Chloride IV Infused Q24H RAGHAVENDRA Infusion Insulin Human Lispro 0 unit 09/21/20 07:30 09/23/20 11:47 Insulin Lispro 100 Unit/Ml 3 Ml Vial SUBCUT Not Given QIDACHS [facility] Protocol Levothyroxine Sodium 75 mcg 09/21/20 06:30 09/23/20 06:12 Levothyroxine Sodium 75 Mcg Tablet PO 75 mcg DAILY@0630 RAGHAVENDRA Administration Metoprolol Tartrate 12.5 mg 09/22/20 21:00 09/23/20 08:02 Metoprolol Tartrate 12.5 Mg Halftab PO Not Given BID [facility] Protocol Pharmacy Consult 1 each 09/20/20 18:27 Consult Rx Perform Med Rec MISCELLANE ONCE PRN Consult order Sodium Chloride 3 ml 09/21/20 00:00 09/23/20 08:01 0.9 % Sodium Chloride Flush 3 Ml Syringe IVFLUSH 3 ml QSHIFT [facility] Administration Labs CBC & Chem 7: 09/21/20 05:47 09/21/20 05:47 Microbiology Microbiology Results: Microbiology 09/21/20 Unknown Urine clean catch - Clean Catch Midstream Urine Culture - Final No growth. Assessment and Plan (1) Bradycardia: Status: Acute (2) UTI (urinary tract infection): Status: Acute (3) Fall: Status: Acute (4) Elevated troponin: Status: Acute Assessment and Plan: 85-year-old female with a past medical history of hypertension, hyperlipidemia, diabetes, hypothyroidism, CAD with stents presented to the hospital with a chief complaint of fall. Noted to have elevated troponins admitted to the hospital for further management. 1.Advanced dementia: Supportive care Question of Likely toxic metabolic encephalopathy/ uti : Started on ceftriaxone seems like patient received ceftriaxone last year, urine culture pending. Psych saw the patient- ed with case management patient will need psych evaluation for competency unclear situation at home and patient does not seem like understand the situation-seen by psych :seems pt Lacks capacity to make medical decisions but is able to show capacity to appoint HCP. d/w case management- due to poor home environment, her sick and admitted to [facility], lack capacity to make medical decisions but able to make it hcp-? may need guardianship 2.CAD/Elevated troponins: She underwent cardiac catheterization in 2019. At that time, findings included-left main-normal; LAD-patent stent in LAD; diagonal had long 70% stenosis but small sized vessel; circumflex-distal 40% stenosis; right coronary artery mild luminal irregularities. Echocardiogram from 2019-LVEF 55-60%; possible basal inferior hypokinesis; grade 2 diastolic dysfunction; mild aortic stenosis; [id number] tricuspid regurgitation and moderate pulmonary hypertension. Elevated troponins could be from fall and demand ischemia. Clinically, she has no symptoms whatsoever. Treat for stable CAD including aspirin, and statins Discussed with cardio probably bradycardia may be related to beta-derrek so decrease the dose of beta-derrek. 3.Fall: Telemetry seems fine Echo seems :The left ventricular systolic function is normal. The visually estimated ejection fraction is between 55-60%. - There is mild to moderate aortic valve stenosis. - There is mild mitral annular calcification. PT/OT. 4.Diabetes: 141-200 range, Insulin sliding scale avoid coverage below. 200 mg/dL. 5.Hypertension/hyperlipidemia: Blood pressure is improving with current medications including hydralazine, amlodipine, metoprolol, adjusted hydralazine. Slightly anxiety also might be contributing Poor home conditions: Case management/director social consult in the morning As per the psych patient has no capacity of making medical decision but can make HCP.
--- NOTE | 2020-09-23 14:30 | MHC.CM.PN ---
BAUTISTA spoke to pts niece Kae Ureña ([phone]) who reports she is the biological niece of pts , Lenny. Kae reports her father is also ill and has some dementia but [facility] notified him that Lenny was there and in critical condition. She reports they also indicated this pt had went to a [facility]. Kae reports she knows the pt had at least one son but she did not know they were estranged. She reports the last time she saw the pt and her was a year or two ago and she felt they were acting strange then. She does not have any information related to friends or family that may have been involved with the pt and her . Kae reports she does know that the house they lived in was the pts and was part of a trust. She reports she will look into who is managing that trust. Kae is currently out of the country but reports she will call with any information she is able to obtain.
[2020-09-23 16:25] LABS: Glucose, Whole Blood 329 mg/dL (60-115)
[2020-09-23] MEDS: cefTRIAXone sodium 1 GM in 0.9 % Sodium Chloride 50 ML IV (17:38)
[2020-09-23] MEDS: Metoprolol Tartrate 12.5 MG HALFTAB PO (20:11)
[2020-09-23 21:03] LABS: Glucose, Whole Blood 187 mg/dL (60-115)
[2020-09-24] VITALS (9 sets, daily range): BP systolic 129–188; BP diastolic 63–91; PULSE 51–80; RESP 16–20; TEMP 36.1–36.9; O2SAT 96–99
[2020-09-24] MEDS: Levothyroxine Sodium 75 MCG TABLET PO (06:00)
[2020-09-24 07:43] LABS: Glucose, Whole Blood 167 mg/dL (60-115)
[2020-09-24] MEDS: Insulin Lispro 100 UNIT/ML 3 ML VIAL SUBCUT ×4 (07:54→19:48)
[2020-09-24] MEDS: 0.9 % Sodium Chloride Flush 3 ML SYRINGE IVFLUSH ×2 (07:55→19:51)
[2020-09-24] MEDS: hydrALAZINE HCl 25 MG TABLET 50 MG PO (07:55)
[2020-09-24] MEDS: Metoprolol Tartrate 12.5 MG HALFTAB PO (07:55)
[2020-09-24] MEDS: amLODIPine Besylate 10 MG TABLET PO (07:56)
[2020-09-24] MEDS: Aspirin 81 MG TAB.CHEW PO (07:56)
[2020-09-24] MEDS: hydrALAZINE HCl 25 MG TABLET PO (09:50)
--- NOTE | 2020-09-24 10:51 | MHC.CM.PN ---
CM informed that pt had been trying to contact her and became upset when she was unable to do so. CM informed pt called [facility] for information on her husbands condition and they refused to provide an update. CM met with pt this morning and pt did not mention this subject. Instead, she discussed her years working at [employer] and stated several times that she felt she is well enough to go home. Pt reported she is a diabetic but has done well managing her disease by cutting out the junk . Pt talked about Dr Olivas being her PCP and says she has not been into see him in some time because of the pandemic. She reports he did not want her to go to the office and risk getting sick and he is probably going to be upset about the hospitalist keeping her here. CM attempted to get information from pt about her supports in the community. Pt reports having many friends from the [employer] but is only able to provide the name of one friend. Pt reports she med Divya Howard 50 years ago at an [employer] meeting and they have been good friends since. Pt reports Divya does not drive so she does not come to visit but they talk frequently on the phone. CM informed the pt that her niece via marriage, Kae Ureña had called inquiring about her condition, however pt reports she cannot remember her. She states there are so many of them . The only living family member she can name is Yoli, but she is unable to provide any more details about her. Pt stated she wants to go home. CM asked if she had someone that could help her and she reported she did not need any help at home. She reports she is very independent, stubbornly independent . When asked about how she would get home, pt reported she could find a ride but stated she would have to straighten up before they went to her home. Pt also discussed two cars that she had parked up there and said one was parked in a parking lot and pointed towards [facility]. CM asked how she would find it and she reported I'll find it . Currently pts DC plan is TBD. Pt does not have a safe home to return to and, per psych note, does not have capacity to make a decision about SNF placement. Pt would also need a HCP or guardianship for placement per SNF requirements.
[2020-09-24 11:10] LABS: Glucose, Whole Blood 392 mg/dL (60-115)
--- NOTE | 2020-09-24 13:01 | HO.PM.IMPN ---
Subjective Subjective Date of Service: 09/24/20 Interval History: bradycardia with 2 sec pause , dementia Review of Systems Denies any chest pain or shortness of breath or abdominal pain or nausea or vomiting or fever or chills. Physical Exam Vital Signs: Vital Signs: Last Vital Signs Temp 96.9 F 09/24/20 11:45 Pulse 52 09/24/20 11:45 Resp 18 09/24/20 11:45 BP 150/70 H 09/24/20 11:45 Pulse Ox 99 09/24/20 11:45 Body Mass Index 24.7 Physical exam: Cvs: [id number], [id number] , no murmur res: clear to auscultation ,no rhonchii or wheezing abd: no rebound or guarding ,nt, bs present. ext pulses present , no cyanosis neuro: nonfocal. Objective Data Current Medications Generic Name Dose Route Start Last Admin Trade Name Freq PRN Reason Stop Dose Admin Acetaminophen 650 mg 09/20/20 23:12 Acetaminophen Supp 650 Mg Supp.Rect FL Q6H PRN Pain, Mild (Pain Scale 1-3) Amlodipine Besylate 10 mg 09/21/20 09:00 09/24/20 07:56 Amlodipine Besylate 10 Mg Tablet PO 10 mg DAILY [facility] Administration Protocol Aspirin 81 mg 09/21/20 09:00 09/24/20 07:56 Aspirin 81 Mg Tab.Chew PO 81 mg DAILY [facility] Administration Atropine Sulfate 0.5 mg 09/21/20 22:51 Atropine Sulfate 1 Mg/Ml Vial IVPUSH ONCE PRN HR<25 Ceftriaxone Sodium 1 gm/ 50 mls @ 100 mls/hr 09/21/20 18:00 09/23/20 18:17 Sodium Chloride IV Infused Q24H [facility] Infusion Insulin Human Lispro 0 unit 09/21/20 07:30 09/24/20 11:51 Insulin Lispro 100 Unit/Ml 3 Ml Vial SUBCUT 10 unit QIDACHS [facility] Administration Protocol Levothyroxine Sodium 75 mcg 09/21/20 06:30 09/24/20 06:00 Levothyroxine Sodium 75 Mcg Tablet PO 75 mcg DAILY@0630 [facility] Administration Pharmacy Consult 1 each 09/20/20 18:27 Consult Rx Perform Med Rec MISCELLANE ONCE PRN Consult order Sodium Chloride 3 ml 09/21/20 00:00 09/24/20 07:55 0.9 % Sodium Chloride Flush 3 Ml Syringe IVFLUSH 3 ml QSHIFT [facility]DR[facility] Administration Labs CBC & Chem 7: 09/21/20 05:47 09/21/20 05:47 Microbiology Microbiology Results: Microbiology 09/21/20 Unknown Urine clean catch - Clean Catch Midstream Urine Culture - Final No growth. Assessment and Plan (1) Bradycardia: Status: Acute (2) UTI (urinary tract infection): Status: Acute (3) Fall: Status: Acute (4) Elevated troponin: Status: Acute Assessment and Plan: 85-year-old female with a past medical history of hypertension, hyperlipidemia, diabetes, hypothyroidism, CAD with stents presented to the hospital with a chief complaint of fall. Noted to have elevated troponins admitted to the hospital for further management. 1.Advanced dementia: Supportive care. Psych saw the patient-ed with case management patient will need psych evaluation for competency unclear situation at home and patient does not seem like understand the situation-seen by psych :seems pt Lacks capacity to make medical decisions but is able to show capacity to appoint HCP. d/w case management- due to poor home environment, her sick and admitted to [facility], lack capacity to make medical decisions but able to make it hcp-? may need guardianship . 2.Question of Likely toxic metabolic encephalopathy/ uti : continue ceftriaxone , urine culture neg 3.CAD/Elevated troponins: She underwent cardiac catheterization in 2019. At that time, findings included-left main-normal; LAD-patent stent in LAD; diagonal had long 70% stenosis but small sized vessel; circumflex-distal 40% stenosis; right coronary artery mild luminal irregularities. Echocardiogram from 2019-LVEF 55-60%; possible basal inferior hypokinesis; grade 2 diastolic dysfunction; mild aortic stenosis; [id number] tricuspid regurgitation and moderate pulmonary hypertension. Elevated troponins could be from fall and demand ischemia. Clinically, she has no symptoms whatsoever. Treat for stable CAD including aspirin, and statins Discussed with cardio probably bradycardia may be related to beta-derrek so decrease the dose of beta-derrek. 4.Fall: Telemetry seems fine Echo seems :The left ventricular systolic function is normal. The visually estimated ejection fraction is between 55-60%. - There is mild to moderate aortic valve stenosis. - There is mild mitral annular calcification. PT/OT. 5.Diabetes: 160 -200 range, Insulin sliding scalesliding scale coverage. 6.Hypertension/hyperlipidemia: Blood pressure is improving with current medications including hydralazine, amlodipine, metoprolol, adjusted hydralazine. Slightly anxiety also might be contributing Poor home conditions: Case management/social service worker consult in the morning As per the psych patient has no capacity of making medical decision but can make HCP.
[2020-09-24 16:10] LABS: Glucose, Whole Blood 76 mg/dL (60-115)
[2020-09-24] MEDS: cefTRIAXone sodium 1 GM in 0.9 % Sodium Chloride 50 ML IV (17:50)
[2020-09-24 19:46] LABS: Glucose, Whole Blood 163 mg/dL (60-115)
[2020-09-25 07:08] LABS: Glucose, Whole Blood 170 mg/dL (60-115)
[2020-09-25 07:31] VITALS: BP 158/76; PULSE 64; RESP 18; TEMP 36.4; O2SAT 97
[2020-09-25] MEDS: amLODIPine Besylate 10 MG TABLET PO (08:29)
[2020-09-25] MEDS: Insulin Lispro 100 UNIT/ML 3 ML VIAL SUBCUT ×4 (08:29→19:53)
[2020-09-25] MEDS: Aspirin 81 MG TAB.CHEW PO (08:29)
[2020-09-25] MEDS: 0.9 % Sodium Chloride Flush 3 ML SYRINGE IVFLUSH ×3 (08:30→19:55)
[2020-09-25 11:04] LABS: Glucose, Whole Blood 188 mg/dL (60-115)
[2020-09-25 11:07] VITALS: BP 160/79; PULSE 80; RESP 18; TEMP 36.7; O2SAT 97
--- NOTE | 2020-09-25 11:10 | MHC.CM.PN ---
Female 85 dx Fall In process of obtaining Guardianship. Dispo Likely a Memory impaired Unit in a Facility. CM will follow.
[2020-09-25 11:58] VITALS: BP 160/79; PULSE 80; O2SAT 97
--- NOTE | 2020-09-25 12:48 | MHC.CM.PN ---
CM met with pt yesterday to explore possibility of completing a HCP. Pt unable to stay on topic, document not completed. CM will proceed with filing for guardianship. If pt were able to complete a HCP, it appears she has no one to appoint as she is estranged from her family and her is currently in critical condition.
--- NOTE | 2020-09-25 15:16 | MHC.CM.PN ---
This telegraphic typewriter operator chief placed call to Vishal Liang @ [phone], he is the son of patient. Discussed with Vishal the possibility of being the appointed guardian/conservator of pt, he expressed willingness but would like some time to think about and discuss with his siblings. this telegraphic typewriter operator chief and Vishal plan to touch base tomorrow (09/26) for next steps. He reports patient has 3 other children Carlos, Rashaun and Gaurav. A call was also placed to Carlos @ [phone], awaiting call back at this time. As side note of information, Vishal has been estranged from patient for about 15 years, he has not seen the condition of the home. He reports mother having a strong/stubborn personality.
[2020-09-25 15:20] VITALS: BP 163/80; PULSE 75; RESP 20; TEMP 37.4; O2SAT 98
[2020-09-25 16:14] LABS: Glucose, Whole Blood 294 mg/dL (60-115)
[2020-09-25] MEDS: cefTRIAXone sodium 1 GM in 0.9 % Sodium Chloride 50 ML IV (17:01)
--- NOTE | 2020-09-25 17:13 | P.PNIM_ITS ---
Subjective Subjective Date of Service: 09/25/20 Interval History: Dementia with Behavioral disturbances, UTI Review of Systems Patient still has in between episode of agitation, Was noncooperative in the morning but seen later in the afternoon she was little better and denies any chest pain or shortness of breath or abdominal pain or fever or chills. Physical Exam Vital Signs: Vital Signs: Last Vital Signs Temp 99.4 F 09/25/20 15:20 Pulse 75 09/25/20 15:20 Resp 20 09/25/20 15:20 BP 163/80 H 09/25/20 15:20 Pulse Ox 98 09/25/20 15:20 Body Mass Index 24.7 Cvs: [id number], [id number] , no murmur res: clear to auscultation ,no rhonchii or wheezing abd: no rebound or guarding ,nt, bs present. ext pulses present , no cyanosis neuro: nonfocal. Objective Data Current Medications Generic Name Dose Route Start Last Admin Trade Name Freq PRN Reason Stop Dose Admin Acetaminophen 650 mg 09/20/20 23:12 Acetaminophen Supp 650 Mg Supp.Rect DE Q6H PRN Pain, Mild (Pain Scale 1-3) Amlodipine Besylate 10 mg 09/21/20 09:00 09/25/20 08:29 Amlodipine Besylate 10 Mg Tablet PO 10 mg DAILY [facility] Administration Protocol Aspirin 81 mg 09/21/20 09:00 09/25/20 08:29 Aspirin 81 Mg Tab.Chew PO 81 mg DAILY [facility] Administration Atropine Sulfate 0.5 mg 09/21/20 22:51 Atropine Sulfate 1 Mg/Ml Vial IVPUSH ONCE PRN HR<25 Ceftriaxone Sodium 1 gm/ 50 mls @ 100 mls/hr 09/21/20 18:00 09/25/20 17:01 Sodium Chloride IV 100 mls/hr Q24H [facility] Administration Insulin Human Lispro 0 unit 09/21/20 07:30 09/25/20 17:01 Insulin Lispro 100 Unit/Ml 3 Ml Vial SUBCUT 6 unit QIDACHS [facility] Administration Protocol Levothyroxine Sodium 75 mcg 09/21/20 06:30 09/25/20 06:26 Levothyroxine Sodium 75 Mcg Tablet PO Not Given DAILY@0630 [facility] Pharmacy Consult 1 each 09/20/20 18:27 Consult Rx Perform Med Rec MISCELLANE ONCE PRN Consult order Sodium Chloride 3 ml 09/21/20 00:00 09/25/20 15:46 0.9 % Sodium Chloride Flush 3 Ml Syringe IVFLUSH 3 ml QSHIFT [facility] Administration Labs CBC & Chem 7: 09/21/20 05:47 09/21/20 05:47 Microbiology Microbiology Results: Microbiology 09/21/20 Unknown Urine clean catch - Clean Catch Midstream Urine Culture - Final No growth. Assessment and Plan (1) Non-rheumatic aortic stenosis: Status: Acute (2) Bradycardia: Status: Acute (3) UTI (urinary tract infection): Status: Acute (4) Fall: Status: Acute (5) Elevated troponin: Status: Acute Assessment and Plan: 85-year-old female with a past medical history of hypertension, hyperlipidemia, diabetes, hypothyroidism, CAD with stents presented to the hospital with a chief complaint of fall. Noted to have elevated troponins admitted to the hospital for further management. 1.Advanced dementia: Supportive care. Psych saw the patient-ed with case management patient will need psych evaluation for competency unclear situation at home and patient does not seem like understand the situation-seen by psych :seems pt Lacks capacity to make medical decisions but is able to show capacity to appoint HCP. d/w case management- due to poor home environment, her sick and admitted to [facility], lack capacity to make medical decisions but able to make it hcp-? may need guardianship . 2.Question of Likely toxic metabolic encephalopathy/ uti : continue ceftriaxone urine culture neg 3.CAD/Elevated troponins: She underwent cardiac catheterization in 2019. At that time, findings included- left main-normal; LAD-patent stent in LAD; diagonal had long 70% stenosis but small sized vessel; circumflex-distal 40% stenosis; right coronary artery mild luminal irregularities. Echocardiogram from 2019-LVEF 55-60%; possible basal inferior hypokinesis; grade 2 diastolic dysfunction; mild aortic stenosis; [id number] tricuspid regurgitation and moderate pulmonary hypertension. Elevated troponins could be from fall and demand ischemia. Clinically, she has no symptoms whatsoever. Treat for stable CAD including aspirin, and statins Discussed with cardio probably bradycardia may be related to beta-derrek so decrease the dose of beta-derrek. 4.Fall: Telemetry seems fine Echo seems :The left ventricular systolic function is normal. The visually estimated ejection fraction is between 55-60%. - There is mild to moderate aortic valve stenosis. - There is mild mitral annular calcification. PT/OT. 5.Diabetes: controlled, Insulin sliding scalesliding scale coverage. 6.Hypertension/hyperlipidemia: Blood pressure is improving with current medications including hydralazine, amlodipine, metoprolol, adjusted hydralazine. Slightly anxiety also might be contributing Poor home conditions: Case management/social science professor consult in the morning As per the psych patient has no capacity of making medical decision but can make HCP.
[2020-09-25 19:04] VITALS: BP 197/105; PULSE 81; RESP 20; TEMP 36; O2SAT 98
[2020-09-25 19:44] LABS: Glucose, Whole Blood 221 mg/dL (60-115)
[2020-09-25] MEDS: traZODone HCL 25 MG HALFTAB PO (19:53)
[2020-09-25] MEDS: hydrOXYzine HCL 25 MG TABLET PO (19:53)
[2020-09-25 23:33] VITALS: BP 162/62; PULSE 74; RESP 18; TEMP 37.1
[2020-09-26] VITALS (7 sets, daily range): BP systolic 148–163; BP diastolic 71–88; PULSE 70–84; RESP 18–21; TEMP 36.4–37.1; O2SAT 94–98
[2020-09-26 07:14] LABS: Glucose, Whole Blood 147 mg/dL (60-115)
[2020-09-26] MEDS: 0.9 % Sodium Chloride Flush 3 ML SYRINGE IVFLUSH ×3 (08:24→20:27)
[2020-09-26] MEDS: amLODIPine Besylate 10 MG TABLET PO (09:59)
[2020-09-26] MEDS: Aspirin 81 MG TAB.CHEW PO (09:59)
[2020-09-26 10:52] LABS: Glucose, Whole Blood 329 mg/dL (60-115)
[2020-09-26] MEDS: Insulin Lispro 100 UNIT/ML 3 ML VIAL SUBCUT ×2 (11:33→20:27)
--- NOTE | 2020-09-26 12:26 | MHC.CM.PN ---
Spoke with Lorraine, watch case polisher at [facility]. Patient's , Lenny, has been made SAP DATA ARCHITECT. [facility] watch case polisher and Dr Claros aware. Continue to monitor for d/c needs.
--- NOTE | 2020-09-26 13:48 | MHC.CM.PN ---
CM received a call from [facility]. She inquired about Pts wellbeing. She also spoke about her role, while the Pt is hospitalized. She is requesting a Face time with call with the Pt. Offered to provide Tablet for the call; unfortunately she did not have an I phone or tablet at the time of the conversation. Contact # [place] /[facility] [phone]. The plan is for her to arrange for an I-phone or tablet. BAUTISTA will follow.
--- NOTE | 2020-09-26 14:48 | P.PNIM_ITS ---
Subjective Subjective Date of Service: 10/06/20 Interval History: Advanced dementia with behavioral disturbances, UTI Review of Systems Patient denies any new complaints, denies any chest pain or shortness of breath or any abdominal pain . Physical Exam Vital Signs: Vital Signs: Last Vital Signs Temp 98.3 F 09/26/20 11:08 Pulse 72 09/26/20 11:08 Resp 18 09/26/20 11:08 BP 158/72 H 09/26/20 11:08 Pulse Ox 98 09/26/20 11:08 Body Mass Index 24.7 Physical exam: Cvs: [id number], [id number] , no murmur res: clear to auscultation ,no rhonchii or wheezing abd: no rebound or guarding ,nt, bs present. ext pulses present , no cyanosis neuro: axo3 , nonfocal. Objective Data Current Medications Generic Name Dose Route Start Last Admin Trade Name Freq PRN Reason Stop Dose Admin Acetaminophen 650 mg 09/20/20 23:12 Acetaminophen Supp 650 Mg Supp.Rect NC Q6H PRN Pain, Mild (Pain Scale 1-3) Amlodipine Besylate 10 mg 09/21/20 09:00 09/26/20 09:59 Amlodipine Besylate 10 Mg Tablet PO 10 mg DAILY [facility] Administration Protocol Aspirin 81 mg 09/21/20 09:00 09/26/20 09:59 Aspirin 81 Mg Tab.Chew PO 81 mg DAILY [facility] Administration Atropine Sulfate 0.5 mg 09/21/20 22:51 Atropine Sulfate 1 Mg/Ml Vial IVPUSH ONCE PRN HR<25 Hydroxyzine HCl 25 mg 09/25/20 19:19 09/25/20 19:53 Hydroxyzine Hcl 25 Mg Tablet PO 25 mg Q8H PRN Administration Restlessness Ceftriaxone Sodium 1 gm/ 50 mls @ 100 mls/hr 09/21/20 18:00 09/25/20 17:58 Sodium Chloride IV Infused Q24H [facility] Infusion Insulin Human Lispro 0 unit 09/21/20 07:30 09/26/20 11:33 Insulin Lispro 100 Unit/Ml 3 Ml Vial SUBCUT 8 unit QIDACHS [facility] Administration Protocol Levothyroxine Sodium 75 mcg 09/21/20 06:30 09/26/20 05:40 Levothyroxine Sodium 75 Mcg Tablet PO Not Given DAILY@0630 [facility] Pharmacy Consult 1 each 09/20/20 18:27 Consult Rx Perform Med Rec MISCELLANE ONCE PRN Consult order Sodium Chloride 3 ml 09/21/20 00:00 09/26/20 08:24 0.9 % Sodium Chloride Flush 3 Ml Syringe IVFLUSH 3 ml QSHIFT [facility]AG[facility]DR[facility] Administration Trazodone HCl 25 mg 09/25/20 19:19 09/25/20 19:53 Trazodone Hcl 25 Mg Halftab PO 25 mg BEDTIME PRN Administration Insomnia Labs CBC & Chem 7: 09/27/20 05:26 09/27/20 05:26 Microbiology Microbiology Results: Microbiology 09/21/20 Unknown Urine clean catch - Clean Catch Midstream Urine Culture - Final No growth. Assessment and Plan (1) UTI (urinary tract infection): Status: Acute (2) Non-rheumatic aortic stenosis: Status: Acute (3) Bradycardia: Status: Acute (4) Fall: Status: Acute (5) Elevated troponin: Status: Acute Assessment and Plan: 85-year-old female with a past medical history of hypertension, hyperlipidemia, diabetes, hypothyroidism, CAD with stents presented to the hospital with a chief complaint of fall. Noted to have elevated troponins admitted to the hospital for further management. 1.Advanced dementia: Supportive care. Psych saw the patient-ed with case management patient will need psych evaluation for competency unclear situation at home and patient does not seem like unde rstand the situation-seen by psych :seems pt Lacks capacity to make medical decisions but is able to show capacity to appoint HCP. d/w case management- due to poor home environment, her sick and admitted to [facility], lack capacity to make medical decisions but able to make it hcp-? may need guardianship . 2.uti :urine culture neg will stop ceftriaxone 3.CAD/Elevated troponins: She underwent cardiac catheterization in 2019. At that time, findings included- left main-normal; LAD-patent stent in LAD; diagonal had long 70% stenosis but small sized vessel; circumflex-distal 40% stenosis; right coronary artery mild luminal irregularities. Echocardiogram from 2019-LVEF 55-60%; possible basal inferior hypokinesis; grade 2 diastolic dysfunction; mild aortic stenosis; [id number] tricuspid regurgitation and moderate pulmonary hypertension. Elevated troponins could be from fall and demand ischemia. Clinically, she has no symptoms whatsoever. Treat for stable CAD including aspirin, and statins Discussed with cardio probably bradycardia may be related to beta-derrek so decrease the dose of beta-derrek but still has bradycardia and pauses -so will hold bb. 4.Fall: Telemetry seems fine Echo seems :The left ventricular systolic function is normal. The visually estimated ejection fraction is between 55-60%. - There is mild to moderate aortic valve stenosis. - There is mild mitral annular calcification. PT-no skilled therapy recomended. 5.Diabetes: controlled, Insulin sliding scalesliding scale coverage. 6.Hypertension/hyperlipidemia: Blood pressure is improving with current medications including hydralazine, amlodipine, metoprolol, adjusted hydralazine. Slightly anxiety also might be contributing Poor home conditions: As per the psych patient has no capacity of making medical decision but can make HCP.
[2020-09-26 15:36] LABS: Glucose, Whole Blood 112 mg/dL (60-115)
[2020-09-26] MEDS: cefTRIAXone sodium 1 GM in 0.9 % Sodium Chloride 50 ML IV (17:52)
[2020-09-26 19:59] LABS: Glucose, Whole Blood 337 mg/dL (60-115)
[2020-09-27] VITALS: BP 164/62; PULSE 86; RESP 18; TEMP 36.7; O2SAT 97
[2020-09-27 03:35] VITALS: BP 180/72; PULSE 81; RESP 20; TEMP 36.7; O2SAT 98
[2020-09-27 06:25] LABS: Hemoglobin 10.4 g/dl (12.0-16.0); Mean Corpuscular HGB Conc 32.5 g/dl (31.0-35.0); Mean Corpuscular Hemoglobin 29.7 pg (27.0-33.0); Mean Corpuscular Volume 91.4 fL (80-98); Mean Platelet Volume 12.1 fL (9.4-12.3); Platelet Count 255 X10*3/uL (160-400); White Blood Count 11.4 X10*3/uL (4.8-10.8)
[2020-09-27] MEDS: Levothyroxine Sodium 75 MCG TABLET PO (06:29)
[2020-09-27 07:04] LABS: Anion Gap 14 (12-20); Blood Urea Nitrogen 33 mg/dL (9-16); Carbon Dioxide 28 mmol/L (22-29); Chloride 100 mmol/L (96-108); Creatinine Clr Calc Pharmacy 31.3; Estimated Glomerular Filt Rate 42; Glucose Random 204 mg/dL (60-115); Potassium 4.4 mmol/L (3.3-5.1); Sodium 138 mmol/L (135-145)
[2020-09-27 07:23] LABS: Glucose, Whole Blood 181 mg/dL (60-115)
[2020-09-27 07:37] VITALS: BP 160/80; PULSE 73; RESP 18; TEMP 36.6; O2SAT 98
[2020-09-27] MEDS: amLODIPine Besylate 10 MG TABLET PO (08:18)
[2020-09-27] MEDS: Aspirin 81 MG TAB.CHEW PO (08:18)
[2020-09-27] MEDS: Insulin Lispro 100 UNIT/ML 3 ML VIAL SUBCUT ×3 (08:18→17:17)
[2020-09-27] MEDS: 0.9 % Sodium Chloride Flush 3 ML SYRINGE IVFLUSH ×3 (08:19→23:54)
--- NOTE | 2020-09-27 09:37 | MHC.CM.PN ---
DP likely a memory impaired unit. Guardianship is in progress. CM will follow.
[2020-09-27 11:12] LABS: Glucose, Whole Blood 250 mg/dL (60-115)
[2020-09-27 11:17] VITALS: BP 157/90; PULSE 65; RESP 18; TEMP 36.7; O2SAT 98
--- NOTE | 2020-09-27 14:07 | MHC.CM.PN ---
Guardianship paperwork completed and will be sent to [place] by end of business today. This check writer salesperson spoke with Se Liang, at this time he does not wish to be appointed as guardian for patient.
[2020-09-27 15:04] VITALS: BP 164/76; PULSE 66; RESP 17; TEMP 36.7; O2SAT 97
--- NOTE | 2020-09-27 15:26 | P.EN_ITS ---
Event Note Date of Service: 09/27/20 Event Note: Day Team Note S Denies any complaints no events reported overnight by direct care staffer O last documented Gen - NAD CVS - S1S2 Lungs - Dim Neuro - non-focal A/P 85 yo F with dementia admitted after fall and elevated trop-I medically stable continue current mgmt await guardianship paperwork
[2020-09-27 16:22] LABS: Glucose, Whole Blood 259 mg/dL (60-115)
[2020-09-27] MEDS: cefTRIAXone sodium 1 GM in 0.9 % Sodium Chloride 50 ML IV (17:12)
[2020-09-27 19:32] VITALS: BP 161/71; PULSE 69; RESP 18; TEMP 37.2; O2SAT 94
[2020-09-27 20:39] LABS: Glucose, Whole Blood 151 mg/dL (60-115)
[2020-09-28] VITALS (8 sets, daily range): BP systolic 168–190; BP diastolic 70–98; PULSE 58–82; RESP 17–20; TEMP 36.6–37.3; O2SAT 95–98
[2020-09-28] MEDS: Levothyroxine Sodium 75 MCG TABLET PO (05:53)
[2020-09-28 07:47] LABS: Glucose, Whole Blood 173 mg/dL (60-115)
[2020-09-28] MEDS: Aspirin 81 MG TAB.CHEW PO (08:23)
[2020-09-28] MEDS: amLODIPine Besylate 10 MG TABLET PO (08:23)
[2020-09-28] MEDS: Insulin Lispro 100 UNIT/ML 3 ML VIAL SUBCUT ×4 (08:23→20:22)
[2020-09-28] MEDS: 0.9 % Sodium Chloride Flush 3 ML SYRINGE IVFLUSH ×3 (08:24→20:23)
--- NOTE | 2020-09-28 11:06 | PM.EVENT ---
Event Note Date of Service: 09/28/20 Event Note: S Denies any complaints, wants to go home no new events reported O last documented Gen - NAD CVS - S1S2 Lungs - Dim Neuro - non-focal A/P 85 yo F with dementia admitted after fall and elevated trop-I, bradycardia remains stable continue current mgmt await guardianship paperwork
[2020-09-28 11:47] LABS: Glucose, Whole Blood 371 mg/dL (60-115)
[2020-09-28] MEDS: Acetaminophen 325 MG TABLET 650 MG PO (12:05)
[2020-09-28 16:02] LABS: Glucose, Whole Blood 211 mg/dL (60-115)
[2020-09-28 19:44] LABS: Glucose, Whole Blood 234 mg/dL (60-115)
[2020-09-29] VITALS (8 sets, daily range): BP systolic 148–170; BP diastolic 52–77; PULSE 65–75; RESP 16–20; TEMP 36.4–37.1; O2SAT 94–100
[2020-09-29] MEDS: Levothyroxine Sodium 75 MCG TABLET PO (05:47)
[2020-09-29 08:07] LABS: Glucose, Whole Blood 321 mg/dL (60-115)
[2020-09-29] MEDS: Enoxaparin Sodium 30 MG/0.3 ML SYRINGE SUBCUT (08:49)
[2020-09-29] MEDS: Insulin Lispro 100 UNIT/ML 3 ML VIAL SUBCUT ×2 (08:50→16:34)
[2020-09-29] MEDS: Aspirin 81 MG TAB.CHEW PO (08:50)
[2020-09-29] MEDS: amLODIPine Besylate 10 MG TABLET PO (08:50)
[2020-09-29] MEDS: 0.9 % Sodium Chloride Flush 3 ML SYRINGE IVFLUSH ×3 (08:51→23:28)
--- NOTE | 2020-09-29 11:14 | PM.EVENT ---
Event Note Date of Service: 09/29/20 Event Note: Event Note: S Denies any complaints, wants to go home no new events reported O last documented Gen - NAD CVS - S1S2 Lungs - Dim Neuro - non-focal A/P 85 yo F with dementia admitted after fall and elevated trop-I, bradycardia remains stable continue current mgmt await guardianship paperwork tele reviewed -- no blocks/significant maritza > 4 days (since beta-blockers stopped); will remove tele add lovenox (low dose) as she isnt ambulating much)
[2020-09-29 11:36] LABS: Glucose, Whole Blood 120 mg/dL (60-115)
[2020-09-29] MEDS: QUEtiapine Fumarate 25 MG TABLET PO (14:03)
[2020-09-29 16:22] LABS: Glucose, Whole Blood 325 mg/dL (60-115)
--- NOTE | 2020-09-29 19:22 | PC.NURSE ---
PATIENT PRESENTS WITH INCREASED CONFUSION/AGITATION. FREQUENTLY ATTEMPTING TO LEAVE ROOM AND REMOVE CHAIR ALARMS. THREATHENING TO CALL THE [place] [employer] FOR HOLDING HER AGAINST HER WILL. PT COOPERATIVE WITH TAKING ONE TIME DOSE OF PO SEROQUEL AT 1400 WITH LITTLE TO NO EFFECT. HOSPITALIST AND NURSING WOOD DIE MAKER CALLED AND MAKE AWARE OF WORSENING DISRUPTIVE BEHAVIOR. SECURITY CALLED WHEN PATIENT CLOSE TO DOORWAY TO ASSIST HER BACK INTO HER ROOM. ATIVAN 1 MG PO ORDERED PER HOSPITALIST BUT PT CONTINUED TO REFUSE TO TAKE AFTER MULTIPLE ATTEMPTS.
[2020-09-29 20:20] LABS: Glucose, Whole Blood 135 mg/dL (60-115)
[2020-09-30 04:00] VITALS: BP 164/78; PULSE 57; RESP 16; TEMP 36.8; O2SAT 95
[2020-09-30] MEDS: Levothyroxine Sodium 75 MCG TABLET PO (05:19)
[2020-09-30 07:23] LABS: Glucose, Whole Blood 278 mg/dL (60-115)
[2020-09-30 07:45] VITALS: BP 150/63; PULSE 81; RESP 20; TEMP 36.9; O2SAT 97
[2020-09-30] MEDS: Insulin Lispro 100 UNIT/ML 3 ML VIAL SUBCUT ×3 (07:51→16:45)
[2020-09-30] MEDS: 0.9 % Sodium Chloride Flush 3 ML SYRINGE IVFLUSH ×2 (07:51→16:45)
[2020-09-30] MEDS: Enoxaparin Sodium 30 MG/0.3 ML SYRINGE SUBCUT (07:51)
[2020-09-30] MEDS: Aspirin 81 MG TAB.CHEW PO (08:50)
[2020-09-30] MEDS: amLODIPine Besylate 10 MG TABLET PO (08:50)
--- NOTE | 2020-09-30 11:08 | PM.EVENT ---
Event Note Date of Service: 09/30/20 Event Note: S no new issues calm this AM O last documented Gen - NAD CVS - S1S2 Lungs - Dim Neuro - non-focal Psych - calm A/P 85 yo F with dementia admitted after fall and elevated trop-I, bradycardia/blocks (resolved after stopping beta-blockers).. Lacks capacity to make medical decisions but did have capacity to appoint HCP. No family willing / able to do HCP/Guardiaship so now awaiting assignement of formal guardianship remains stable continue current mgmt await guardianship paperwork
[2020-09-30 11:32] LABS: Glucose, Whole Blood 242 mg/dL (60-115)
[2020-09-30 11:38] VITALS: BP 170/71; PULSE 58; RESP 18; TEMP 36.2; O2SAT 98
[2020-09-30 15:39] VITALS: BP 158/76; PULSE 61; RESP 18; TEMP 36.3; O2SAT 99
--- NOTE | 2020-09-30 16:16 | PC.NURSE ---
PT COOPERATIVE WITH CARE. SITTING UP IN CHAIR. DENIES PAIN
[2020-09-30 16:43] LABS: Glucose, Whole Blood 251 mg/dL (60-115)
[2020-09-30 19:29] VITALS: BP 163/82; PULSE 62; RESP 18; TEMP 36.9; O2SAT 99
[2020-09-30 20:07] LABS: Glucose, Whole Blood 199 mg/dL (60-115)
[2020-09-30 23:52] VITALS: BP 149/70; PULSE 67; RESP 18; TEMP 36.6; O2SAT 98
[2020-10-01] MEDS: 0.9 % Sodium Chloride Flush 3 ML SYRINGE IVFLUSH ×4 (01:31→20:35)
[2020-10-01 03:39] VITALS: BP 149/70; PULSE 62; RESP 19; TEMP 36.8; O2SAT 98
[2020-10-01] MEDS: Levothyroxine Sodium 75 MCG TABLET PO (05:06)
[2020-10-01 07:39] LABS: Glucose, Whole Blood 183 mg/dL (60-115)
[2020-10-01] MEDS: Insulin Lispro 100 UNIT/ML 3 ML VIAL SUBCUT ×4 (07:54→20:35)
[2020-10-01] MEDS: Enoxaparin Sodium 30 MG/0.3 ML SYRINGE SUBCUT (07:55)
[2020-10-01] MEDS: Aspirin 81 MG TAB.CHEW PO (07:57)
[2020-10-01] MEDS: amLODIPine Besylate 10 MG TABLET PO (07:57)
[2020-10-01 08:00] VITALS: BP 179/77; PULSE 59; RESP 18; TEMP 36.6; O2SAT 95
--- NOTE | 2020-10-01 10:29 | P.EN_ITS ---
Event Note Date of Service: 10/01/20 Event Note: S no new issues reported by staff writer O last documented Gen - NAD CVS - S1S2 Lungs - Dim Neuro - non-focal Psych - calm A/P 85 yo F with dementia admitted after fall and elevated trop-I, bradycardia/blocks (resolved after stopping beta-blockers).. Lacks capacity to make medical decisions but did have capacity to appoint HCP. No family willing / able to do HCP/Guardiaship so now awaiting assignement of formal guardianship remains stable continue current mgmt for dm/htn await guardianship paperwork
[2020-10-01 11:31] LABS: Glucose, Whole Blood 244 mg/dL (60-115)
[2020-10-01 12:00] VITALS: BP 155/83; PULSE 70; RESP 18; TEMP 37; O2SAT 97
--- NOTE | 2020-10-01 12:02 | PC.NURSE ---
PT OOB TO RECLINER. COOPERATIVE WITH CARE. TOLERATING DIET WELL. DENIES PAIN
[2020-10-01] MEDS: hydrOXYzine HCL 25 MG TABLET PO (13:10)
[2020-10-01 16:00] VITALS: BP 158/66; PULSE 65; RESP 18; TEMP 36.1; O2SAT 99
[2020-10-01 16:10] LABS: Glucose, Whole Blood 208 mg/dL (60-115)
--- NOTE | 2020-10-01 16:30 | PC.NURSE ---
1310: pt becoming restless. writing on papers and napkins in her room. atarax given with little effect. pt slept for a short time. pt is now alert and becoming accusatory. refused her insulin, stating why are you doing this to me? tigertext sent to dr sumner. awaiting response.
--- NOTE | 2020-10-01 18:38 | PC.NURSE ---
LATE ENTRY, 173. NOTIFIED BY PRECISION INSTRUMENT AND TOOL MAKER THAT PT CALLED [employer] CONTACTED UNIT. SECURITY CALLED TO COME AND SPEAK WITH PT. SECURITY SPENT APPROX 30 MINUTES IN ROOM WITH PT. PT COOPERATIVE AT THIS TIME. WILL CONTINUE TO ATTEMPT TO REDIRECT PT
[2020-10-01 19:25] VITALS: BP 153/70; PULSE 63; RESP 18; TEMP 37; O2SAT 98
[2020-10-01 20:11] LABS: Glucose, Whole Blood 403 mg/dL (60-115)
[2020-10-02] VITALS (8 sets, daily range): BP systolic 147–164; BP diastolic 63–90; PULSE 55–86; RESP 18–20; TEMP 36–36.9; O2SAT 97–100
[2020-10-02] MEDS: Levothyroxine Sodium 75 MCG TABLET PO (06:22)
[2020-10-02 07:31] LABS: Glucose, Whole Blood 140 mg/dL (60-115)
[2020-10-02] MEDS: Aspirin 81 MG TAB.CHEW PO (07:55)
[2020-10-02] MEDS: Enoxaparin Sodium 30 MG/0.3 ML SYRINGE SUBCUT (07:55)
[2020-10-02] MEDS: amLODIPine Besylate 10 MG TABLET PO (07:55)
[2020-10-02] MEDS: 0.9 % Sodium Chloride Flush 3 ML SYRINGE IVFLUSH ×3 (07:56→21:04)
[2020-10-02 11:14] LABS: Glucose, Whole Blood 318 mg/dL (60-115)
[2020-10-02] MEDS: Insulin Lispro 100 UNIT/ML 3 ML VIAL SUBCUT ×2 (11:44→21:03)
--- NOTE | 2020-10-02 12:39 | P.EN_ITS ---
Event Note Date of Service: 10/02/20 Event Note: Day Team Progress Note S no issues this AM intermittently confused / asking to leave, but easily redirectable O last documented Gen - NAD CVS - S1S2 Lungs - Dim Neuro - non-focal Psych - calm A/P 85 yo F with dementia admitted after fall and elevated trop-I, b radycardia/blocks (resolved after stopping beta-blockers).. Lacks capacity to make medical decisions but did have capacity to appoint HCP. No family willing / able to do HCP/Guardiaship so now awaiting assignement of formal guardianship remains stable continue current mgmt for dm/htn await guardianship paperwork
[2020-10-02 16:24] LABS: Glucose, Whole Blood 129 mg/dL (60-115)
[2020-10-02 20:17] LABS: Glucose, Whole Blood 277 mg/dL (60-115)
[2020-10-03] MEDS: Acetaminophen 325 MG TABLET 650 MG PO ×3 (02:29→23:35)
[2020-10-03 03:42] VITALS: BP 156/77; PULSE 65; RESP 18; TEMP 36.7; O2SAT 95
[2020-10-03] MEDS: Levothyroxine Sodium 75 MCG TABLET PO (06:06)
[2020-10-03 07:39] VITALS: BP 170/97; PULSE 67; RESP 18; TEMP 36.6; O2SAT 99
[2020-10-03 07:47] LABS: Glucose, Whole Blood 165 mg/dL (60-115)
[2020-10-03] MEDS: Aspirin 81 MG TAB.CHEW PO (07:49)
[2020-10-03] MEDS: amLODIPine Besylate 10 MG TABLET PO (07:49)
[2020-10-03] MEDS: 0.9 % Sodium Chloride Flush 3 ML SYRINGE IVFLUSH ×3 (07:50→20:57)
[2020-10-03] MEDS: Insulin Lispro 100 UNIT/ML 3 ML VIAL SUBCUT ×3 (07:51→20:56)
[2020-10-03] MEDS: Enoxaparin Sodium 30 MG/0.3 ML SYRINGE SUBCUT (07:51)
[2020-10-03 11:29] LABS: Glucose, Whole Blood 479 mg/dL (60-115)
[2020-10-03] MEDS: Insulin Lispro 100 UNIT/ML 3 ML VIAL 10 UNIT SUBCUT (11:54)
[2020-10-03 12:00] VITALS: BP 145/78; PULSE 59; RESP 18; TEMP 36.6; O2SAT 98
--- NOTE | 2020-10-03 12:14 | P.PNIM_ITS ---
Subjective Subjective Date of Service: 10/03/20 Interval History: wants to go home Cardiovascular Cardiovascular: Reports no additional cardiovascular complaints Respiratory Respiratory: Reports no additional respiratory complaints Physical Exam Vital Signs: Vital Signs: Last Vital Signs Temp 97.8 F 10/03/20 07:39 Pulse 67 10/03/20 07:39 Resp 18 10/03/20 07:39 BP 170/97 H 10/03/20 07:39 Pulse Ox 99 10/03/20 07:39 Body Mass Index 24.7 General: AO X 3, no acute distress Resp: CTA bilateral CVS: S1,S2,RRR GI: soft, non tender, non distended Neuro: motor grossly intact Psych: poor insight Objective Data Current Medications Generic Name Dose Route Start Last Admin Trade Name Freq PRN Reason Stop Dose Admin Acetaminophen 650 mg 09/28/20 11:39 10/03/20 11:09 Acetaminophen 325 Mg Tablet PO 650 mg Q6H PRN Administration PAINFEV Amlodipine Besylate 10 mg 09/21/20 09:00 10/03/20 07:49 Amlodipine Besylate 10 Mg Tablet PO 10 mg DAILY [facility] Administration Protocol Aspirin 81 mg 09/21/20 09:00 10/03/20 07:49 Aspirin 81 Mg Tab.Chew PO 81 mg DAILY RAGHAVENDRA Administration Enoxaparin Sodium 30 mg 09/29/20 08:00 10/03/20 07:51 Enoxaparin Sodium 30 Mg/0.3 Ml Syringe SUBCUT 30 mg Q24H RAGHAVENDRA Administration Hydroxyzine HCl 25 mg 09/25/20 19:19 10/01/20 13:10 Hydroxyzine Hcl 25 Mg Tablet PO 25 mg Q8H PRN Administration Restlessness Insulin Human Lispro 0 unit 09/21/20 07:30 10/03/20 11:54 Insulin Lispro 100 Unit/Ml 3 Ml Vial SUBCUT 10 unit QIDACHS [facility] Administration Protocol Levothyroxine Sodium 75 mcg 09/21/20 06:30 10/03/20 06:06 Levothyroxine Sodium 75 Mcg Tablet PO 75 mcg DAILY@0630 [facility] Administration Pharmacy Consult 1 each 09/20/20 18:27 Consult Rx Perform Med Rec MISCELLANE ONCE PRN Consult order Sodium Chloride 3 ml 09/21/20 00:00 10/03/20 07:50 0.9 % Sodium Chloride Flush 3 Ml Syringe IVFLUSH 3 ml QSHIFT [facility] Administration Trazodone HCl 25 mg 09/25/20 19:19 09/25/20 19:53 Trazodone Hcl 25 Mg Halftab PO 25 mg BEDTIME PRN Administration Insomnia Labs CBC & Chem 7: 09/27/20 05:26 09/27/20 05:26 Microbiology Microbiology Results: Microbiology 09/21/20 Unknown Urine clean catch - Clean Catch Midstream Urine Culture - Final No growth. Assessment and Plan (1) UTI (urinary tract infection): Status: Acute (2) Non-rheumatic aortic stenosis: Status: Acute (3) Bradycardia: Status: Acute (4) Fall: Status: Acute (5) Elevated troponin: Status: Acute Assessment and Plan: 85-year-old female with a past medical history of hypertension, hyperlipidemia, diabetes, hypothyroidism, CAD with stents presented to the hospital with a chief complaint of fall. Noted to have elevated troponins admitted to the hospital for further management. fall initial CTH with ? of subacute vs chronic left precentral gyrus infarct continue asa, check lipids, neuro eval Advanced dementia: Supportive care. Psych saw the patient-ed with case management patient will need psych evaluation for competency unclear situation at home and patient does not seem like understand the situation-seen by psych :seems pt Lacks capacity to make medical decisions but is able to show capacity to appoint HCP. due to poor home environment, her sick and admitted to [facility], lack capacity to make medical decisions but able to make it hcp-? may need guardianship . CAD/Elevated troponins: asa, (statin after lipids drawn) Diabetes insulin HTN hydralazine, amlodipine, metoprolol
[2020-10-03 15:43] VITALS: BP 156/72; PULSE 62; RESP 18; TEMP 36.6; O2SAT 98
[2020-10-03 16:21] LABS: Glucose, Whole Blood 111 mg/dL (60-115)
--- NOTE | 2020-10-03 17:30 | PM.NEUROCN ---
History of Present Illness Data of Consult Service Date: 10/03/20 Primary Care Provider: Unknown Physician HPI Reason for consult: Dementia with possible left hemisphere stroke This is a 84-year-old woman with obvious dementia was unable to give any reliable information was admitted after apparently a she fell along with her was taken to [facility]. She is a stroke diabetes and coronary artery disease status post stent. She was found to have obvious dementia a mild UTI and the neck abnormal EKG with elevated troponin so she was admitted. I was asked to see her because of the subtle finding of a left precentral gyrus and low density suggestive of a subacute stroke. The patient denies having had any stroke in the past but sometimes axial confused and it's unclear if that is new or old. She is disoriented to time but oriented to place and person. Review of Systems Eyes: Eyes: Reports no additional eye complaints ENT: Reports system reviewed and no additional complaints, except as documented and Reports Normal hearing present Cardiovascular: Cardiovascular: Reports no additional cardiovascular complaints Respiratory: Respiratory: Reports no additional respiratory complaints Gastrointestinal: Gastrointestinal: Reports no additional gastrointestinal complaints Musculoskeletal: Musculoskeletal: Reports no additional musculoskeletal complaints Integumentary/Breasts: Skin/Breast: Reports system reviewed and no additional complaints, except as docu Neurologic: Reports as per HPI and Reports Normal hearing present Psychiatric: Psychiatric: Reports as per HPI Endocrine: Endocrine: Reports no additional endocrine complaints Hematologic/Lymphatic: Hematologic/Lymphatic: Reports no additional hematologic/lymphatic complaints Allergic/Immunologic: Allergic/Immunologic: Reports no additional allergic/immunologic complaints [facility] Past Medical History Medical History (Updated 10/03/20 @ 17:35 by Simon Tomlinson MD) Atherosclerotic cardiovascular disease Diabetes HTN (hypertension) Non-rheumatic aortic stenosis Social History Social History Household Members: Spouse Housing: Unknown / Unable to assess Alcohol intake: never Smoking Status: Never smoker service: No Current occupational status: retired Meds Allergies Allergy/AdvReac Type Severity Reaction Status Date / Time Penicillins [PCN] Allergy Mild HIVES Verified 09/26/20 20:26 ciprofloxacin [Cipro] Allergy Unknown Itching Verified 09/26/20 20:26 penicillin V Allergy Unknown Unknown Verified 09/26/20 20:26 Sulfa (Sulfonamide Allergy Unknown Unknown Verified 09/26/20 20:26 Antibiotics) Active Medications: Current Medications Generic Name Dose Route Start Last Admin Trade Name Freq PRN Reason Stop Dose Admin Acetaminophen 650 mg 09/28/20 11:39 10/03/20 11:09 Acetaminophen 325 Mg Tablet PO 650 mg Q6H PRN Administration PAINFEV Amlodipine Besylate 10 mg 09/21/20 09:00 10/03/20 07:49 Amlodipine Besylate 10 Mg Tablet PO 10 mg DAILY [facility] Administration Protocol Aspirin 81 mg 09/21/20 09:00 10/03/20 07:49 Aspirin 81 Mg Tab.Chew PO 81 mg DAILY [facility]DR[facility] Administration Enoxaparin Sodium 30 mg 09/29/20 08:00 10/03/20 07:51 Enoxaparin Sodium 30 Mg/0.3 Ml Syringe SUBCUT 30 mg Q24H [facility]AGHAVENDRA Administration Hydroxyzine HCl 25 mg 09/25/20 19:19 10/01/20 13:10 Hydroxyzine Hcl 25 Mg Tablet PO 25 mg Q8H PRN Administration Restlessness Insulin Human Lispro 0 unit 09/21/20 07:30 10/03/20 16:36 Insulin Lispro 100 Unit/Ml 3 Ml Vial SUBCUT Not Given QIDACHS [facility] Protocol Levothyroxine Sodium 75 mcg 09/21/20 06:30 10/03/20 06:06 Levothyroxine Sodium 75 Mcg Tablet PO 75 mcg DAILY@0630 [facility] Administration Pharmacy Consult 1 each 09/20/20 18:27 Consult Rx Perform Med Rec MISCELLANE ONCE PRN Consult order Sodium Chloride 3 ml 09/21/20 00:00 10/03/20 16:37 0.9 % Sodium Chloride Flush 3 Ml Syringe IVFLUSH 3 ml QSHIFT [facility] Administration Trazodone HCl 25 mg 09/25/20 19:19 09/25/20 19:53 Trazodone Hcl 25 Mg Halftab PO 25 mg BEDTIME PRN Administration Insomnia Home Medications Medication Instructions Recorded Confirmed Last Taken Type amlodipine 10 mg PO DAILY 09/20/20 09/20/20 Unknown History enalapril maleate 20 mg PO BID 09/20/20 09/20/20 Unknown History glimepiride 4 mg PO BID 09/20/20 09/20/20 Unknown History hydralazine 25 mg PO BID 09/20/20 09/20/20 Unknown History hydrochlorothiazide 25 mg PO DAILY 09/20/20 09/20/20 Unknown History levothyroxine 75 mcg PO DAILY 09/20/20 09/20/20 Unknown History metformin 500 mg PO BID 09/20/20 09/20/20 Unknown History metoprolol succinate 50 mg PO DAILY 09/20/20 09/20/20 Unknown History tramadol 50 mg PO TID PRN 09/20/20 09/20/20 Unknown History Physical Exam Vital Signs: Vital Signs: Last Vital Signs Temp 98 F 10/03/20 15:43 Pulse 62 10/03/20 15:43 Resp 18 10/03/20 15:43 BP 156/72 H 10/03/20 15:43 Pulse Ox 98 10/03/20 15:43 Body Mass Index 24.7 Const: General: cooperative, comfortable, no acute distress, well developed, alert and awake Nutritional Appearance: well nourished Orientation/consciousness: oriented to person and oriented to place Limitations: no limitations HENMT: Head: Yes normal to inspection, Yes normocephalic and Yes atraumatic Ears: hearing grossly normal bilaterally General nose exam: Normal external nose present Face and sinus: Yes normal facial exam Mouth: Normal oral and palatal mucosa present Eyes: General: appearance normal, both eyes and all related structures Visual Bolivar: normal visual bolivar by confrontation Alignment and Position: alignment normal Periorbital: periorbital findings normal Eyelids: Yes eyelids normal Conjunctivae: conjunctivae normal Sclerae: sclerae normal Corneas: corneas normal Pupils: Equal, round and reactive pupils present and Pupil accommodation reflex normal EOM: EOMs intact bilaterally Direct Ophthalmoscopy: normal light reflex Neck: Neck: Yes normal visual inspection, Yes full ROM and Yes no meningeal signs Thyroid: Thyroid normal Carotids: normal carotid upstroke and bounding pulses Chest: Chest palpation & inspection: normal inspection of the chest Resp: Effort & Inspection: normal respiratory effort Auscultation: clear to auscultation bilaterally Cardio: Rate: regular rate Rhythm: regular rhythm Heart sounds: S1 normal heart sound present and S2 normal heart sound present Peripheral pulses: Peripheral pulses 2+ throughout GI: Inspection: Yes normal to inspection Percussion: Yes normal to percussion Auscultation: normal bowel sounds Rectal Exam - Female: deferred Back/Spine/Pelvis: Cervical Spine: normal cervical lordosis and cervical ROM normal Thoracic/Lumbar Spine: thoracic and lumbar spine normal to inspection Skin: General skin exam: no rashes or lesions noted Neuro: General: oriented to person, oriented to place, tone normal, moves all extremities, Normal light touch and pain sensation, no meningeal signs, no focal motor deficits, CN's II-XI intact bilaterally, normal sensation to monofilament and deep tendon reflexes 2+ bilaterally Cranial nerves: Yes CN's II-XII intact bilaterally, Yes Equal, round and reactive pupils present, Yes Bilaterally intact EOM present, Yes Nystagmus not present, Yes Normal facial strength present, Yes Midline tongue present, Yes Normal gag reflex present, Yes Symmetric palate elevation present, Yes Normal hearing present and Yes Ability to bilaterally rotate head present Cognition (Neuro): abnormal cognition Speech: Other speech findings present (Neuro) Motor exam (neuro): 5/5 motor strength present throughout, Pronator motor function not present, no tremor noted, no asterixis, Motor fasciculations not present, Normal motor muscle tone present throughout and Motor abnormalities not present Sensory Exam: Bilaterally intact graphesthesia Deep tendon reflexes (DTR's): Right triceps reflex intensity grade: 2+, Left triceps reflex intensity grade: 2+, Rt Biceps (C5, C6): 2+, Left biceps reflex intensity grade: 2+, Right brachioradialis reflex intensity grade: 2+, Left brachioradialis reflex intensity grade: 2+, Right patellar reflex intensity grade: 2+, Left patellar reflex intensity grade: 2+, Right ankle reflex intensity grade: 2+ and Left ankle reflex intensity grade: 2+ Plantar Reflex Responses: downgoing: right, left and bilateral Coordination: [id number] test normal and [id number] test normal Pupils: Normal pupillary reactivity/response: bilateral Extrem: General: Yes normal to inspection, Yes normal exam except as noted and Yes no pedal edema Psych: Appearance: grossly normal Mental Status: mental status grossly normal Speech and movement: Normal speech and movement present and Clear speech present Affect: normal affect Attitude: cooperative Thought process: Normal thought process present Results Labs CBC & Chem 7: 09/27/20 05:26 09/27/20 05:26 Microbiology Microbiology Results: Microbiology 09/21/20 Unknown Urine clean catch - Clean Catch Midstream Urine Culture - Final No growth. Assessment and Plan (1) Neurocognitive disorder: Problem details: Start donepezil 5 mg daily Status: Acute (2) Stroke: Problem details: Abnormal CT scan suggestive of left frontal subacute stroke Status: Acute MRI of the brain to rule out acute stroke.
[2020-10-03 19:57] VITALS: BP 171/83; PULSE 66; RESP 16; TEMP 36.1; O2SAT 99
[2020-10-03 20:06] LABS: Glucose, Whole Blood 252 mg/dL (60-115)
[2020-10-03 23:26] VITALS: BP 151/79; PULSE 73; RESP 18; TEMP 37.1; O2SAT 97
[2020-10-04 04:00] VITALS: BP 198/70; PULSE 65; RESP 18; TEMP 36.6; O2SAT 99
[2020-10-04 05:13] VITALS: BP 199/90; PULSE 53
[2020-10-04] MEDS: Levothyroxine Sodium 75 MCG TABLET PO (05:13)
[2020-10-04] MEDS: amLODIPine Besylate 10 MG TABLET PO (05:13)
--- NOTE | 2020-10-04 05:20 | PC.NURSE ---
at 4 am bp 199/90 and rechecked manual 198/[address] Jesus ordered to give 9 am norvasc 10 mgearly will recheck bp in 1 hour
[2020-10-04 05:34] LABS: Cholesterol 224 mg/dL; HDL Cholesterol 48 mg/dL; LDL Cholesterol Calculated 160 mg/dl; Triglycerides 84 mg/dL
[2020-10-04 07:29] LABS: Glucose, Whole Blood 172 mg/dL (60-115)
[2020-10-04 07:34] VITALS: BP 174/76; PULSE 65; RESP 20; TEMP 36.6; O2SAT 97
[2020-10-04] MEDS: Insulin Lispro 100 UNIT/ML 3 ML VIAL SUBCUT ×4 (08:15→21:36)
[2020-10-04] MEDS: Enoxaparin Sodium 30 MG/0.3 ML SYRINGE SUBCUT (08:15)
[2020-10-04] MEDS: Aspirin 81 MG TAB.CHEW PO (08:15)
[2020-10-04] MEDS: 0.9 % Sodium Chloride Flush 3 ML SYRINGE IVFLUSH ×3 (08:17→21:41)
--- NOTE | 2020-10-04 10:27 | P.PNIM_ITS ---
Subjective Subjective Date of Service: 10/04/20 Interval History: wants to go home Cardiovascular Cardiovascular: Reports no additional cardiovascular complaints Gastrointestinal Gastrointestinal: Reports no additional gastrointestinal complaints Physical Exam Vital Signs: Vital Signs: Last Vital Signs Temp 97.8 F 10/04/20 07:34 Pulse 65 10/04/20 07:34 Resp 20 10/04/20 07:34 BP 174/76 H 10/04/20 07:34 Pulse Ox 97 10/04/20 07:34 Body Mass Index 24.7 General: Alert not oriented, no acute distress Resp: CTA bilateral CVS: S1,S2,RRR GI: soft, non tender, non distended Neuro: motor grossly intact Psych: impaired insight Objective Data Current Medications Generic Name Dose Route Start Last Admin Trade Name Freq PRN Reason Stop Dose Admin Acetaminophen 650 mg 09/28/20 11:39 10/03/20 23:35 Acetaminophen 325 Mg Tablet PO 650 mg Q6H PRN Administration PAINFEV Amlodipine Besylate 10 mg 09/21/20 09:00 10/04/20 05:13 Amlodipine Besylate 10 Mg Tablet PO 10 mg DAILY [facility] Administration Protocol Aspirin 81 mg 09/21/20 09:00 10/04/20 08:15 Aspirin 81 Mg Tab.Chew PO 81 mg DAILY [facility]AGH[facility]ENDRA Administration Enoxaparin Sodium 30 mg 09/29/20 08:00 10/04/20 08:15 Enoxaparin Sodium 30 Mg/0.3 Ml Syringe SUBCUT 30 mg Q24H RAGHAVENDRA Administration Hydroxyzine HCl 25 mg 09/25/20 19:19 10/01/20 13:10 Hydroxyzine Hcl 25 Mg Tablet PO 25 mg Q8H PRN Administration Restlessness Insulin Human Lispro 0 unit 09/21/20 07:30 10/04/20 08:15 Insulin Lispro 100 Unit/Ml 3 Ml Vial SUBCUT 2 unit QIDACHS [facility] Administration Protocol Levothyroxine Sodium 75 mcg 09/21/20 06:30 10/04/20 05:13 Levothyroxine Sodium 75 Mcg Tablet PO 75 mcg DAILY@0630 [facility] Administration Pharmacy Consult 1 each 09/20/20 18:27 Consult Rx Perform Med Rec MISCELLANE ONCE PRN Consult order Sodium Chloride 3 ml 09/21/20 00:00 10/04/20 08:17 0.9 % Sodium Chloride Flush 3 Ml Syringe IVFLUSH 3 ml QSHIFT [facility] Administration Trazodone HCl 25 mg 09/25/20 19:19 09/25/20 19:53 Trazodone Hcl 25 Mg Halftab PO 25 mg BEDTIME PRN Administration Insomnia Labs CBC & Chem 7: 09/27/20 05:26 09/27/20 05:26 Microbiology Microbiology Results: Microbiology 09/21/20 Unknown Urine clean catch - Clean Catch Midstream Urine Culture - Final No growth. Assessment and Plan (1) UTI (urinary tract infection): Status: Acute (2) Non-rheumatic aortic stenosis: Status: Acute (3) Bradycardia: Status: Acute (4) Fall: Status: Acute (5) Elevated troponin: Status: Acute Assessment and Plan: 85-year-old female with a past medical history of hypertension, hyperlipidemia, diabetes, hypothyroidism, CAD with stents presented to the hospital with a chief complaint of fall. Noted to have elevated troponins admitted to the hospital for further management. fall initial CTH with ? of subacute vs chronic left precentral gyrus infarct continue asa, start lipitor 80 follow up mri Advanced dementia: Supportive care. Psych saw the patient-ed with case management patient will need psych evaluation for competency unclear situation at home and patient does not seem like understand the situation-seen by psych :seems pt Lacks capacity to make medical decisions but is able to show capacity to appoint HCP. due to poor home environment, her sick and admitted to [facility], lack capacity to make medical decisions but able to make it hcp-? may need guardianship . CAD/Elevated troponins: asa, statin Diabetes insulin HTN hydralazine, amlodipine, metoprolol
[2020-10-04 11:41] VITALS: BP 181/73; PULSE 74; RESP 20; TEMP 36.9; O2SAT 100
[2020-10-04 11:53] LABS: Glucose, Whole Blood 410 mg/dL (60-115)
[2020-10-04 15:36] VITALS: BP 168/72; PULSE 101; RESP 19; TEMP 37; O2SAT 98
[2020-10-04 16:28] LABS: Glucose, Whole Blood 173 mg/dL (60-115)
[2020-10-04 19:08] VITALS: BP 172/69; PULSE 61; RESP 19; TEMP 37.5; O2SAT 97
[2020-10-04 19:44] LABS: Glucose, Whole Blood 239 mg/dL (60-115)
[2020-10-04] MEDS: Atorvastatin Calcium 80 MG TABLET PO (21:35)
[2020-10-05] VITALS (8 sets, daily range): BP systolic 133–185; BP diastolic 57–96; PULSE 61–71; RESP 16–20; TEMP 36.3–37.2; O2SAT 97–100
[2020-10-05] MEDS: Levothyroxine Sodium 75 MCG TABLET PO (05:56)
[2020-10-05 07:58] LABS: Glucose, Whole Blood 176 mg/dL (60-115)
[2020-10-05] MEDS: Aspirin 81 MG TAB.CHEW PO (08:46)
[2020-10-05] MEDS: Enoxaparin Sodium 30 MG/0.3 ML SYRINGE SUBCUT (08:46)
[2020-10-05] MEDS: amLODIPine Besylate 10 MG TABLET PO (08:46)
[2020-10-05] MEDS: Insulin Lispro 100 UNIT/ML 3 ML VIAL SUBCUT ×4 (08:47→21:12)
[2020-10-05] MEDS: 0.9 % Sodium Chloride Flush 3 ML SYRINGE IVFLUSH ×3 (08:47→21:17)
--- NOTE | 2020-10-05 09:32 | P.PNNE_ITS ---
Subjective Subjective Date of Service: 11/09/20 Interval History: wants to go home Physical Exam Vital Signs: Vital Signs: Last Vital Signs Temp 98.8 F 10/05/20 08:00 Pulse 69 10/05/20 08:00 Resp 16 10/05/20 08:00 BP 160/68 H 10/05/20 08:00 Pulse Ox 97 10/05/20 08:00 Body Mass Index 24.7 Const: Other: elderly female in no distress General: cooperative, healthy appearing, comfortable, no acute distress, well developed, alert and awake Nutritional Appearance: average body habitus and well nourished Orientation/consciousness: oriented to person and oriented to place Limitations: no limitations and other limitations (Question if the patient remembers events correctly) HENMT: Other: Unremarkable Head: Yes normal to inspection, Yes normocephalic and Yes atraumatic Ears: hearing grossly normal bilaterally and external ears normal General nose exam: Normal external nose present Face and sinus: Yes normal facial exam Mouth: Normal oral and palatal mucosa present and oropharynx normal Throat: Yes posterior oropharynx normal Eyes: General: appearance normal, both eyes and all related structures Visual Adam: normal visual adam by confrontation Alignment and Position: alignment normal Periorbital: periorbital findings normal Eyelids: Yes eyelids normal Conjunctivae: conjunctivae normal Sclerae: sclerae normal Corneas: corneas normal Pupils: Equal, round and reactive pupils present and Pupil accommodation reflex normal EOM: EOMs intact bilaterally Direct Ophthalmoscopy: normal light reflex Neck: Other: supple Neck: Yes normal visual inspection, Yes full ROM, Yes no lymphadenopathy, Yes no meningeal signs, Yes trachea midline and Yes supple Thyroid: Thyroid normal Carotids: normal carotid upstroke and bounding pulses Chest: Chest palpation & inspection: normal inspection of the chest and normal palpation of entire chest wall Resp: Effort & Inspection: normal respiratory effort and able to speak in complete sentences Auscultation: clear to auscultation bilaterally, no crackles and no wheezes Cardio: Other: elderly female in no distress Jugular venous distension: no JVD Palpation: normal PMI Rate: regular rate Rhythm: regular rhythm Heart sounds: S1 normal heart sound present, S2 normal heart sound present, no gallops, Murmur heart sound present systolic early, III/ and at the right sternal border and no rubs Peripheral pulses: Peripheral pulses 2+ throughout GI: Inspection: Yes normal to inspection Palpation (GI): Soft to palpation, nontender, no guarding, not rigid and No hepatosplenomegaly present Percussio n: Yes normal to percussion Auscultation: normal bowel sounds Rectal Exam - Female: deferred : General: Yes no CVA tenderness Back/Spine/Pelvis: Other: unremarkable Back: no CVA tenderness Cervical Spine: normal cervical lordosis and cervical ROM normal Thoracic/Lumbar Spine: thoracic and lumbar spine normal to inspection Skin: General skin exam: no rashes or lesions noted Lesions: no lesions Rashes: no rashes Wounds: no wounds Neuro: General: oriented to person, oriented to place, tone normal, moves all extremities, no meningeal signs, no focal motor deficits, CN's II-XI intact bilaterally, normal sensation to monofilament and deep tendon reflexes 2+ bilaterally Cranial nerves: Yes CN's II-XII intact bilaterally, Yes Equal, round and reactive pupils present, Yes Bilaterally intact EOM present, Yes Nystagmus not present, Yes Normal facial strength present, Yes Midline tongue present, Yes Normal gag reflex present, Yes Symmetric palate elevation present, Yes Normal hearing present and Yes Ability to bilaterally rotate head present Cognition (Neuro): abnormal cognition Speech: Other speech findings present (Neuro) Motor exam (neuro): 5/5 motor strength present throughout, Pronator motor function not present, no tremor noted, no asterixis, Motor fasciculations not present, Normal motor muscle tone present throughout and Motor abnormalities not present Sensory Exam: Sensory deficit (Neuro) Deep tendon reflexes (DTR's): Right triceps reflex intensity grade: 2+, Left triceps reflex intensity grade: 2+, Rt Biceps (C5, C6): 2+, Left biceps reflex intensity grade: 2+, Right brachioradialis reflex intensity grade: 2+, Left brachioradialis reflex intensity grade: 2+, Right patellar reflex intensity grade: 2+, Left patellar reflex intensity grade: 2+, Right ankle reflex intensity grade: 2+ and Left ankle reflex intensity grade: 2+ Plantar Reflex Responses: downgoing: right, left and bilateral Coordination: [id number] test normal and [id number] test normal Pupils: Normal pupillary reactivity/response: bilateral Extrem: General: Yes normal to inspection, Yes full ROM, Yes normal exam except as noted, Yes no clubbing, cyanosis or edema and Yes no pedal edema Psych: Appearance: grossly normal and well kempt Mental Status: mental status grossly normal Speech and movement: Normal speech and movement present and Clear speech present Affect: normal affect Attitude: cooperative Thought process: Normal thought process present Thought content: Normal thought content present Insight: Other insight findings present (Psych) (Patient may not be recalling events correctly based discussion with CM [facility]) Objective Data Labs CBC & Chem 7: 09/27/20 05:26 11/03/20 08:06 Labs: Laboratory Results - last 24 hr 10/04/20 10/04/20 10/04/20 11:45 15:39 19:23 POC Glucose 410 H* 173 H 239 H 10/05/20 07:45 POC Glucose 176 H Microbiology Microbiology Results: Microbiology 09/21/20 Unknown Urine clean catch - Clean Catch Midstream Urine Culture - Final No growth. Progress Note: A&P Assessment and plan (1) UTI (urinary tract infection): Status: Acute (2) Non-rheumatic aortic stenosis: Status: Acute (3) Bradycardia: Status: Acute (4) Fall: Status: Acute (5) Elevated troponin: Status: Acute (6) Neurocognitive disorder: Status: Acute Assessment and Plan: 85-year-old female with a past medical history of hypertension, hyperlipidemia, diabetes, hypothyroidism, CAD with stents presented to the hospital with a chief complaint of fall. Noted to have elevated troponins admitted to the hospital for further management. fall initial CTH with ? of subacute vs chronic left precentral gyrus infarct continue asa, start lipitor 80 follow up mri Advanced dementia: Supportive care. Psych saw the patient-ed with case management patient will need psych evaluation for competency unclear situation at home and patient does not seem like understand the situation-seen by psych :seems pt Lacks capacity to make medical decisions but is able to show capacity to appoint HCP. due to poor home environment, her sick and admitted to [facility], lack capacity to make medical decisions but able to make it hcp-? may need guardianship . CAD/Elevated troponins: asa, statin Diabetes insulin HTN hydralazine, amlodipine, metoprolol Fall Risk Details Current Medications: Current Medications Generic Name Dose Route Start Last Admin Trade Name Freq PRN Reason Stop Dose Admin Acetaminophen 650 mg 09/28/20 11:39 10/03/20 23:35 Acetaminophen 325 Mg Tablet PO 650 mg Q6H PRN Administration PAINFEV Amlodipine Besylate 10 mg 09/21/20 09:00 10/05/20 08:46 Amlodipine Besylate 10 Mg Tablet PO 10 mg DAILY [facility] Administration Protocol Aspirin 81 mg 09/21/20 09:00 10/05/20 08:46 Aspirin 81 Mg Tab.Chew PO 81 mg DAILY RAGHAVENDRA Administration Atorvastatin Calcium 80 mg 10/04/20 21:00 10/04/20 21:35 Atorvastatin Calcium 80 Mg Tablet PO 80 mg BEDTIME RAGHAVENDRA Administration Enoxaparin Sodium 30 mg 09/29/20 08:00 10/05/20 08:46 Enoxaparin Sodium 30 Mg/0.3 Ml Syringe SUBCUT 30 mg Q24H RAGHAVENDRA Administration Hydroxyzine HCl 25 mg 09/25/20 19:19 10/01/20 13:10 Hydroxyzine Hcl 25 Mg Tablet PO 25 mg Q8H PRN Administration Restlessness Insulin Human Lispro 0 unit 09/21/20 07:30 10/05/20 08:47 Insulin Lispro 100 Unit/Ml 3 Ml Vial SUBCUT 2 unit QIDACHS [facility] Administration Protocol Levothyroxine Sodium 75 mcg 09/21/20 06:30 10/05/20 05:56 Levothyroxine Sodium 75 Mcg Tablet PO 75 mcg DAILY@0630 [facility] Administration Pharmacy Consult 1 each 09/20/20 18:27 Consult Rx Perform Med Rec MISCELLANE ONCE PRN Consult order Sodium Chloride 3 ml 09/21/20 00:00 10/05/20 08:47 0.9 % Sodium Chloride Flush 3 Ml Syringe IVFLUSH 3 ml QSHIFT [facility] Administration Trazodone HCl 25 mg 09/25/20 19:19 09/25/20 19:53 Trazodone Hcl 25 Mg Halftab PO 25 mg BEDTIME PRN Administration Insomnia Time Spent With Patient Time: Total time spent is greater than 50% in coordination of care (as documented) at patient's floor/unit and/or counseling patient: Time with patient: 15 - 24 minutes
--- NOTE | 2020-10-05 09:37 | P.PNNE_ITS ---
Subjective Subjective Date of Service: 10/05/20 Physical Exam Vital Signs: Vital Signs: Last Vital Signs Temp 98.8 F 10/05/20 08:00 Pulse 69 10/05/20 08:00 Resp 16 10/05/20 08:00 BP 160/68 H 10/05/20 08:00 Pulse Ox 97 10/05/20 08:00 Body Mass Index 24.7 Objective Data Labs CBC & Chem 7: 09/27/20 05:26 09/27/20 05:26 Labs: Laboratory Results - last 24 hr 10/04/20 10/04/20 10/04/20 11:45 15:39 19:23 POC Glucose 410 H* 173 H 239 H 10/05/20 07:45 POC Glucose 176 H Microbiology Microbiology Results: Microbiology 09/21/20 Unknown Urine clean catch - Clean Catch Midstream Urine Culture - Final No growth. Progress Note: A&P Assessment and plan (1) Communicating hydrocephalus: Problem details: ventricles are moderately enlarged, slightly disproportionate to cortical atrophy which may suggest communicating hydrocephalus. I do not believe this is the case and feel she is a poor shunt candidate. Status: Acute Assessment and Plan: high volume LP via radiology to see if she improves, that may make a case for shunting Fall Risk Details Current Medications: Current Medications Generic Name Dose Route Start Last Admin Trade Name Freq PRN Reason Stop Dose Admin Acetaminophen 650 mg 09/28/20 11:39 10/03/20 23:35 Acetaminophen 325 Mg Tablet PO 650 mg Q6H PRN Administration PAINFEV Amlodipine Besylate 10 mg 09/21/20 09:00 10/05/20 08:46 Amlodipine Besylate 10 Mg Tablet PO 10 mg DAILY [facility]AG[facility]ENDR[facility] Administration Protocol Aspirin 81 mg 09/21/20 09:00 10/05/20 08:46 Aspirin 81 Mg Tab.Chew PO 81 mg DAILY [facility]AGH[facility]ENDRA Administration Atorvastatin Calcium 80 mg 10/04/20 21:00 10/04/20 21:35 Atorvastatin Calcium 80 Mg Tablet PO 80 mg BEDTIME RAGHAVENDRA Administration Enoxaparin Sodium 30 mg 09/29/20 08:00 10/05/20 08:46 Enoxaparin Sodium 30 Mg/0.3 Ml Syringe SUBCUT 30 mg Q24H RAGHAVENDRA Administration Hydroxyzine HCl 25 mg 09/25/20 19:19 10/01/20 13:10 Hydroxyzine Hcl 25 Mg Tablet PO 25 mg Q8H PRN Administration Restlessness Insulin Human Lispro 0 unit 09/21/20 07:30 10/05/20 08:47 Insulin Lispro 100 Unit/Ml 3 Ml Vial SUBCUT 2 unit QIDACHS [facility] Administration Protocol Levothyroxine Sodium 75 mcg 09/21/20 06:30 10/05/20 05:56 Levothyroxine Sodium 75 Mcg Tablet PO 75 mcg DAILY@0630 [facility] Administration Pharmacy Consult 1 each 09/20/20 18:27 Consult Rx Perform Med Rec MISCELLANE ONCE PRN Consult order Sodium Chloride 3 ml 09/21/20 00:00 10/05/20 08:47 0.9 % Sodium Chloride Flush 3 Ml Syringe IVFLUSH 3 ml QSHIFT [facility] Administration Trazodone HCl 25 mg 09/25/20 19:19 09/25/20 19:53 Trazodone Hcl 25 Mg Halftab PO 25 mg BEDTIME PRN Administration Insomnia Time Spent With Patient Time: Total time spent is greater than 50% in coordination of care (as documented) at patient's floor/unit and/or counseling patient: Time with patient: 15 - 24 minutes
--- NOTE | 2020-10-05 09:38 | P.PNIM_ITS ---
Subjective Subjective Date of Service: 10/05/20 Interval History: wants to go home Cardiovascular Cardiovascular: Reports no additional cardiovascular complaints Gastrointestinal Gastrointestinal: Reports no additional gastrointestinal complaints Physical Exam Vital Signs: Vital Signs: Last Vital Signs Temp 98.8 F 10/05/20 08:00 Pulse 69 10/05/20 08:00 Resp 16 10/05/20 08:00 BP 160/68 H 10/05/20 08:00 Pulse Ox 97 10/05/20 08:00 Body Mass Index 24.7 General: Alert, no acute distress Resp: CTA bilateral CVS: S1,S2,RRR GI: soft, non tender, non distended Neuro: unsteady gait Psych: impaired insight Objective Data Current Medications Generic Name Dose Route Start Last Admin Trade Name Freq PRN Reason Stop Dose Admin Acetaminophen 650 mg 09/28/20 11:39 10/03/20 23:35 Acetaminophen 325 Mg Tablet PO 650 mg Q6H PRN Administration PAINFEV Amlodipine Besylate 10 mg 09/21/20 09:00 10/05/20 08:46 Amlodipine Besylate 10 Mg Tablet PO 10 mg DAILY [facility] Administration Protocol Aspirin 81 mg 09/21/20 09:00 10/05/20 08:46 Aspirin 81 Mg Tab.Chew PO 81 mg DAILY RAGHAVENDRA Administration Atorvastatin Calcium 80 mg 10/04/20 21:00 10/04/20 21:35 Atorvastatin Calcium 80 Mg Tablet PO 80 mg BEDTIME RAGHAVENDRA Administration Enoxaparin Sodium 30 mg 09/29/20 08:00 10/05/20 08:46 Enoxaparin Sodium 30 Mg/0.3 Ml Syringe SUBCUT 30 mg Q24H RAGHAVENDRA Administration Hydroxyzine HCl 25 mg 09/25/20 19:19 10/01/20 13:10 Hydroxyzine Hcl 25 Mg Tablet PO 25 mg Q8H PRN Administration Restlessness Insulin Human Lispro 0 unit 09/21/20 07:30 10/05/20 08:47 Insulin Lispro 100 Unit/Ml 3 Ml Vial SUBCUT 2 unit QIDACHS [facility] Administration Protocol Levothyroxine Sodium 75 mcg 09/21/20 06:30 10/05/20 05:56 Levothyroxine Sodium 75 Mcg Tablet PO 75 mcg DAILY@0630 [facility] Administration Pharmacy Consult 1 each 09/20/20 18:27 Consult Rx Perform Med Rec MISCELLANE ONCE PRN Consult order Sodium Chloride 3 ml 09/21/20 00:00 02/18/21 08:47 0.9 % Sodium Chloride Flush 3 Ml Syringe IVFLUSH 3 ml QSHIFT RAGHAVENDRA Administration Trazodone HCl 25 mg 09/25/20 19:19 09/25/20 19:53 Trazodone Hcl 25 Mg Halftab PO 25 mg BEDTIME PRN Administration Insomnia Labs CBC & Chem 7: 09/27/20 05:26 09/27/20 05:26 Microbiology Microbiology Results: Microbiology 09/21/20 Unknown Urine clean catch - Clean Catch Midstream Urine Culture - Final No growth. Assessment and Plan (1) UTI (urinary tract infection): Status: Acute (2) Non-rheumatic aortic stenosis: Status: Acute (3) Bradycardia: Status: Acute (4) Fall: Status: Acute (5) Elevated troponin: Status: Acute Assessment and Plan: 85-year-old female with a past medical history of hypertension, hyperlipidemia, diabetes, hypothyroidism, CAD with stents presented to the hospital with a chief complaint of fall. Noted to have elevated troponins admitted to the hospital for further management. fall initial CTH with ? 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 due to poor home environment, her was sick and admitted to [facility], lack capacity to make medical decisions will need guardianship . CAD/Elevated troponins: asa, statin Diabetes insulin HTN hydralazine, amlodipine, metoprolol
--- NOTE | 2020-10-05 09:40 | MHC.CM.PN ---
Pt has court date scheduled for Friday 10/20 @ 930 AM, pt will be represented by Surveillance Systems Engineer Keenan Mcgarry. The pest control worker will be reaching out to CM to schedule a Facetime meeting with patient.
--- NOTE | 2020-10-05 10:35 | MHC.CM.PN ---
Per CM Administration, Patient's court date for Guardianship is 10/20/20 @ 9:30 AM. Also, per infantry officer @ [facility], Patient's has passed.
[2020-10-05 11:24] LABS: INTERNATIONAL NORM RATIO 1.1 (0.9-1.1); Prothrombin Time 12.6 SEC (10.8-13.0)
[2020-10-05 11:27] LABS: Partial Thromboplastin Time 41.2 SEC (24.1-38.0)
[2020-10-05 11:32] LABS: Glucose, Whole Blood 280 mg/dL (60-115)
[2020-10-05] MEDS: hydrALAZINE HCl 25 MG TABLET PO ×2 (12:17→21:11)
[2020-10-05] MEDS: Enalapril Maleate 10 MG TABLET 20 MG PO ×2 (12:17→21:11)
--- NOTE | 2020-10-05 12:49 | MHC.CM.PN ---
CM received a message to return a call to Patient's Niece, Kae, at [phone], But Kae is not listed as a contact.
--- NOTE | 2020-10-05 14:49 | MHC.CM.PN ---
Spoke w/ patient's primary RN and Cesia Luis regarding communicating to the patient her 's current condition/status. This casualty underwriter spoke with Risk Management, at this time we are going to wait until guardian is in place to let them make decision regarding 's status. RN Jr ramirez, Jodi Day ([employer]) aware, and message sent to Cesia Foreman
[2020-10-05 16:03] LABS: Glucose, Whole Blood 215 mg/dL (60-115)
[2020-10-05 20:59] LABS: Glucose, Whole Blood 339 mg/dL (60-115)
[2020-10-05] MEDS: hydrOXYzine HCL 25 MG TABLET PO (21:11)
[2020-10-05] MEDS: Atorvastatin Calcium 80 MG TABLET PO (21:11)
[2020-10-05] MEDS: traZODone HCL 25 MG HALFTAB PO (21:11)
[2020-10-06] VITALS (8 sets, daily range): BP systolic 123–156; BP diastolic 55–84; PULSE 58–66; RESP 16–19; TEMP 36.1–37; O2SAT 97–100
[2020-10-06 06:50] LABS: Glucose, Whole Blood 280 mg/dL (60-115)
[2020-10-06 07:49] LABS: Glucose, Whole Blood 169 mg/dL (60-115)
[2020-10-06] MEDS: hydrALAZINE HCl 25 MG TABLET PO ×2 (08:56→20:32)
[2020-10-06] MEDS: amLODIPine Besylate 10 MG TABLET PO (08:56)
[2020-10-06] MEDS: Enalapril Maleate 10 MG TABLET 20 MG PO ×2 (08:56→20:31)
[2020-10-06] MEDS: 0.9 % Sodium Chloride Flush 3 ML SYRINGE IVFLUSH ×3 (08:57→23:44)
--- NOTE | 2020-10-06 10:40 | HO.PM.IMPN ---
Subjective Subjective Date of Service: 10/06/20 Interval History: wants to go home Cardiovascular Cardiovascular: Reports no additional cardiovascular complaints Gastrointestinal Gastrointestinal: Reports no additional gastrointestinal complaints Physical Exam Vital Signs: Vital Signs: Last Vital Signs Temp 97.5 F 10/06/20 08:00 Pulse 62 10/06/20 08:00 Resp 16 10/06/20 08:00 BP 156/66 H 10/06/20 08:00 Pulse Ox 97 10/06/20 08:00 Body Mass Index 24.7 General: Alert, no acute distress Resp: CTA bilateral CVS: S1,S2,RRR GI: soft, non tender, non distended Neuro: motor grossly intact Psych: appropriate affect Objective Data Current Medications Generic Name Dose Route Start Last Admin Trade Name Freq PRN Reason Stop Dose Admin Acetaminophen 650 mg 09/28/20 11:39 10/03/20 23:35 Acetaminophen 325 Mg Tablet PO 650 mg Q6H PRN Administration PAINFEV Amlodipine Besylate 10 mg 09/21/20 09:00 10/06/20 08:56 Amlodipine Besylate 10 Mg Tablet PO 10 mg DAILY [facility] Administration Protocol Aspirin 81 mg 09/21/20 09:00 10/06/20 08:56 Aspirin 81 Mg Tab.Chew PO Not Given DAILY [facility] Atorvastatin Calcium 80 mg 10/04/20 21:00 10/05/20 21:11 Atorvastatin Calcium 80 Mg Tablet PO 80 mg BEDTIME [facility] Administration Enalapril Maleate 20 mg 10/05/20 12:00 10/06/20 08:56 Enalapril Maleate 10 Mg Tablet PO 20 mg BID [facility] Administration Hydralazine HCl 25 mg 10/05/20 11:45 10/06/20 08:56 Hydralazine Hcl 25 Mg Tablet PO 25 mg BID [facility] Administration Protocol Hydroxyzine HCl 25 mg 09/25/20 19:19 10/05/20 21:11 Hydroxyzine Hcl 25 Mg Tablet PO 25 mg Q8H PRN Administration Restlessness Insulin Human Lispro 0 unit 09/21/20 07:30 10/06/20 08:18 Insulin Lispro 100 Unit/Ml 3 Ml Vial SUBCUT Not Given QIDACHS [facility] Protocol Levothyroxine Sodium 75 mcg 09/21/20 06:30 10/06/20 05:28 Levothyroxine Sodium 75 Mcg Tablet PO Not Given DAILY@0630 [facility] Pharmacy Consult 1 each 09/20/20 18:27 Consult Rx Perform Med Rec MISCELLANE ONCE PRN Consult order Sodium Chloride 3 ml 09/21/20 00:00 10/06/20 08:57 0.9 % Sodium Chloride Flush 3 Ml Syringe IVFLUSH 3 ml QSHIFT RAGHAVENDRA Administration Trazodone HCl 25 mg 09/25/20 19:19 10/05/20 21:11 Trazodone Hcl 25 Mg Halftab PO 25 mg BEDTIME PRN Administration Insomnia Labs CBC & Chem 7: 09/27/20 05:26 09/27/20 05:26 Microbiology Microbiology Results: Microbiology 09/21/20 Unknown Urine clean catch - Clean Catch Midstream Urine Culture - Final No growth. Assessment and Plan (1) UTI (urinary tract infection): Status: Acute (2) Non-rheumatic aortic stenosis: Status: Acute (3) Bradycardia: Status: Acute (4) Fall: Status: Acute (5) Elevated troponin: Status: Acute Assessment and Plan: 85-year-old female with a past medical history of hypertension, hyperlipidemia, diabetes, hypothyroidism, CAD with stents presented to the hospital with a chief complaint of fall. Noted to have elevated troponins admitted to the hospital for further management. fall initial CTH with ? of subacute vs chronic left precentral gyrus infarct MRI with no evidece of acute or subacute infarct, but mentioned possible NPH neuro appreciated - less likely NPH, but worth ruling out with high volume LP, plan for today Psych saw the patient-ed with case management patient will need psych evaluation for competency unclear situation at home and patient does not seem like understand the situation-seen by psych :seems pt Lacks capacity to make medical decisions but is able to show capacity to appoint HCP. due to poor home environment, her was sick and admitted to [facility], lack capacity to make medical decisions will need guardianship . CAD/Elevated troponins: asa, statin Diabetes insulin HTN hydralazine, amlodipine, metoprolol
[2020-10-06 12:18] LABS: Glucose, Whole Blood 196 mg/dL (60-115)
[2020-10-06] MEDS: Insulin Lispro 100 UNIT/ML 3 ML VIAL SUBCUT ×3 (12:34→20:31)
[2020-10-06 16:11] LABS: Glucose, Whole Blood 354 mg/dL (60-115)
[2020-10-06 20:09] LABS: Glucose, Whole Blood 352 mg/dL (60-115)
[2020-10-06] MEDS: Atorvastatin Calcium 80 MG TABLET PO (20:32)
[2020-10-07 03:23] VITALS: BP 148/71; PULSE 62; RESP 16; TEMP 36.6; O2SAT 96
[2020-10-07] MEDS: Levothyroxine Sodium 75 MCG TABLET PO (06:13)
[2020-10-07 08:00] VITALS: BP 142/74; PULSE 65; RESP 16; TEMP 36.6; O2SAT 98
[2020-10-07 08:17] LABS: Glucose, Whole Blood 179 mg/dL (60-115)
[2020-10-07] MEDS: Enalapril Maleate 10 MG TABLET 20 MG PO ×2 (09:47→20:35)
[2020-10-07] MEDS: Aspirin 81 MG TAB.CHEW PO (09:47)
[2020-10-07] MEDS: hydrALAZINE HCl 25 MG TABLET PO ×2 (09:47→20:35)
[2020-10-07] MEDS: Insulin Lispro 100 UNIT/ML 3 ML VIAL SUBCUT ×4 (09:47→20:36)
[2020-10-07] MEDS: amLODIPine Besylate 10 MG TABLET PO (09:48)
[2020-10-07] MEDS: 0.9 % Sodium Chloride Flush 3 ML SYRINGE IVFLUSH ×2 (09:48→16:30)
[2020-10-07] MEDS: Enoxaparin Sodium 40 MG/0.4 ML SYRINGE SUBCUT (09:48)
[2020-10-07 12:00] VITALS: BP 145/73; PULSE 66; RESP 17; TEMP 36.5; O2SAT 97
--- NOTE | 2020-10-07 12:10 | HO.PM.IMPN ---
Subjective Subjective Date of Service: 10/07/20 Interval History: wants to go home Cardiovascular Cardiovascular: Reports no additional cardiovascular complaints Gastrointestinal Gastrointestinal: Reports no additional gastrointestinal complaints Physical Exam Vital Signs: Vital Signs: Last Vital Signs Temp 98 F 10/07/20 08:00 Pulse 65 10/07/20 08:00 Resp 16 10/07/20 08:00 BP 142/74 H 10/07/20 08:00 Pulse Ox 98 10/07/20 08:00 Body Mass Index 24.7 General: Alert, no acute distress Resp: CTA bilateral CVS: S1,S2,RRR GI: soft, non tender, non distended Neuro: motor grossly intact Psych: appropriate affect Objective Data Current Medications Generic Name Dose Route Start Last Admin Trade Name Freq PRN Reason Stop Dose Admin Acetaminophen 650 mg 09/28/20 11:39 10/03/20 23:35 Acetaminophen 325 Mg Tablet PO 650 mg Q6H PRN Administration PAINFEV Amlodipine Besylate 10 mg 09/21/20 09:00 10/07/20 09:48 Amlodipine Besylate 10 Mg Tablet PO 10 mg DAILY RAGHAVENDRA Administration Protocol Aspirin 81 mg 09/21/20 09:00 10/07/20 09:47 Aspirin 81 Mg Tab.Chew PO 81 mg DAILY RAGHAVENDRA Administration Atorvastatin Calcium 80 mg 10/04/20 21:00 10/06/20 20:32 Atorvastatin Calcium 80 Mg Tablet PO 80 mg BEDTIME RAGHAVENDRA Administration Enalapril Maleate 20 mg 10/05/20 12:00 10/07/20 09:47 Enalapril Maleate 10 Mg Tablet PO 20 mg BID RAGHAVENDRA Administration Enoxaparin Sodium 40 mg 10/07/20 08:00 10/07/20 09:48 Enoxaparin Sodium 40 Mg/0.4 Ml Syringe SUBCUT 40 mg Q24H RAGHAVENDRA Administration Hydralazine HCl 25 mg 10/05/20 11:45 10/07/20 09:47 Hydralazine Hcl 25 Mg Tablet PO 25 mg BID RAGHAVENDRA Administration Protocol Hydroxyzine HCl 25 mg 09/25/20 19:19 10/05/20 21:11 Hydroxyzine Hcl 25 Mg Tablet PO 25 mg Q8H PRN Administration Restlessness Insulin Human Lispro 0 unit 09/21/20 07:30 10/07/20 09:47 Insulin Lispro 100 Unit/Ml 3 Ml Vial SUBCUT 2 unit QIDACHS [facility] Administration Protocol Levothyroxine Sodium 75 mcg 09/21/20 06:30 10/07/20 06:13 Levothyroxine Sodium 75 Mcg Tablet PO 75 mcg DAILY@0630 [facility] Administration Pharmacy Consult 1 each 09/20/20 18:27 Consult Rx Perform Med Rec MISCELLANE ONCE PRN Consult order Sodium Chloride 3 ml 09/21/20 00:00 10/07/20 09:48 0.9 % Sodium Chloride Flush 3 Ml Syringe IVFLUSH 3 ml QSHIFT [facility] Administration Trazodone HCl 25 mg 09/25/20 19:19 10/05/20 21:11 Trazodone Hcl 25 Mg Halftab PO 25 mg BEDTIME PRN Administration Insomnia Labs CBC & Chem 7: 09/27/20 05:26 09/27/20 05:26 Microbiology Microbiology Results: Microbiology 09/21/20 Unknown Urine clean catch - Clean Catch Midstream Urine Culture - Final No growth. Assessment and Plan (1) UTI (urinary tract infection): Status: Acute (2) Non-rheumatic aortic stenosis: Status: Acute (3) Bradycardia: Status: Acute (4) Fall: Status: Acute (5) Elevated troponin: Status: Acute Assessment and Plan: 85-year-old female with a past medical history of hypertension, hyperlipidemia, diabetes, hypothyroidism, CAD with stents presented to the hospital with a chief complaint of fall. Noted to have elevated troponins admitted to the hospital for further management. fall initial CTH with ? 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 due to poor home environment, her was sick and admitted to [facility], lack capacity to make medical decisions will need guardianship . CAD/Elevated troponins: asa, statin Diabetes insulin HTN hydralazine, amlodipine, metoprolol
[2020-10-07 12:14] LABS: Glucose, Whole Blood 300 mg/dL (60-115)
[2020-10-07 15:26] VITALS: BP 142/62; PULSE 59; RESP 18; TEMP 37; O2SAT 100
[2020-10-07 16:20] LABS: Glucose, Whole Blood 186 mg/dL (60-115)
[2020-10-07 19:21] VITALS: BP 169/78; PULSE 64; RESP 18; TEMP 37.1; O2SAT 100
[2020-10-07 20:11] LABS: Glucose, Whole Blood 291 mg/dL (60-115)
[2020-10-07 20:35] VITALS: BP 169/78; PULSE 64
[2020-10-07] MEDS: Atorvastatin Calcium 80 MG TABLET PO (20:35)
[2020-10-08] VITALS (8 sets, daily range): BP systolic 153–182; BP diastolic 72–86; PULSE 55–86; RESP 15–20; TEMP 36.3–36.8; O2SAT 95–98
[2020-10-08] MEDS: 0.9 % Sodium Chloride Flush 3 ML SYRINGE IVFLUSH ×3 (00:08→16:09)
[2020-10-08] MEDS: Levothyroxine Sodium 75 MCG TABLET PO (05:54)
[2020-10-08] MEDS: Aspirin 81 MG TAB.CHEW PO (08:41)
[2020-10-08] MEDS: Insulin Lispro 100 UNIT/ML 3 ML VIAL SUBCUT ×4 (08:41→21:00)
[2020-10-08] MEDS: Enoxaparin Sodium 40 MG/0.4 ML SYRINGE SUBCUT (08:41)
[2020-10-08] MEDS: Enalapril Maleate 10 MG TABLET 20 MG PO ×2 (08:42→21:01)
[2020-10-08] MEDS: hydrALAZINE HCl 25 MG TABLET PO ×2 (08:42→21:02)
[2020-10-08 08:43] LABS: Glucose, Whole Blood 176 mg/dL (60-115)
[2020-10-08] MEDS: amLODIPine Besylate 10 MG TABLET PO (08:55)
--- NOTE | 2020-10-08 11:12 | HO.PM.IMPN ---
Subjective Subjective Date of Service: 10/08/20 Interval History: no complaints Cardiovascular Cardiovascular: Reports no additional cardiovascular complaints Gastrointestinal Gastrointestinal: Reports no additional gastrointestinal complaints Physical Exam Vital Signs: Vital Signs: Last Vital Signs Temp 97.4 F 10/08/20 08:00 Pulse 86 10/08/20 08:00 Resp 20 10/08/20 08:00 BP 165/72 H 10/08/20 03:49 Pulse Ox 97 10/08/20 08:00 Body Mass Index 24.7 General: Alert, no acute distress Resp: CTA bilateral CVS: S1,S2,RRR GI: soft, non tender, non distended Neuro: motor grossly intact Psych: appropriate affect Objective Data Current Medications Generic Name Dose Route Start Last Admin Trade Name Freq PRN Reason Stop Dose Admin Acetaminophen 650 mg 09/28/20 11:39 10/03/20 23:35 Acetaminophen 325 Mg Tablet PO 650 mg Q6H PRN Administration PAINFEV Amlodipine Besylate 10 mg 09/21/20 09:00 10/08/20 08:55 Amlodipine Besylate 10 Mg Tablet PO 10 mg DAILY RAGHAVENDRA Administration Protocol Aspirin 81 mg 09/21/20 09:00 10/08/20 08:41 Aspirin 81 Mg Tab.Chew PO 81 mg DAILY RAGHAVENDRA Administration Atorvastatin Calcium 80 mg 10/04/20 21:00 10/07/20 20:35 Atorvastatin Calcium 80 Mg Tablet PO 80 mg BEDTIME RAGHAVENDRA Administration Enalapril Maleate 20 mg 10/05/20 12:00 10/08/20 08:42 Enalapril Maleate 10 Mg Tablet PO 20 mg BID RAGHAVENDRA Administration Enoxaparin Sodium 40 mg 10/07/20 08:00 10/08/20 08:41 Enoxaparin Sodium 40 Mg/0.4 Ml Syringe SUBCUT 40 mg Q24H RAGHAVENDRA Administration Hydralazine HCl 25 mg 10/05/20 11:45 10/08/20 08:42 Hydralazine Hcl 25 Mg Tablet PO 25 mg BID RAGHAVENDRA Administration Protocol Hydroxyzine HCl 25 mg 09/25/20 19:19 10/05/20 21:11 Hydroxyzine Hcl 25 Mg Tablet PO 25 mg Q8H PRN Administration Restlessness Insulin Human Lispro 0 unit 09/21/20 07:30 10/08/20 08:41 Insulin Lispro 100 Unit/Ml 3 Ml Vial SUBCUT 2 unit QIDACHS [facility] Administration Protocol Levothyroxine Sodium 75 mcg 09/21/20 06:30 10/08/20 05:54 Levothyroxine Sodium 75 Mcg Tablet PO 75 mcg DAILY@0630 [facility] Administration Pharmacy Consult 1 each 09/20/20 18:27 Consult Rx Perform Med Rec MISCELLANE ONCE PRN Consult order Sodium Chloride 3 ml 09/21/20 00:00 10/08/20 08:41 0.9 % Sodium Chloride Flush 3 Ml Syringe IVFLUSH 3 ml QSHIFT [facility] Administration Trazodone HCl 25 mg 09/25/20 19:19 10/05/20 21:11 Trazodone Hcl 25 Mg Halftab PO 25 mg BEDTIME PRN Administration Insomnia Labs CBC & Chem 7: 09/27/20 05:26 09/27/20 05:26 Microbiology Microbiology Results: Microbiology 09/21/20 Unknown Urine clean catch - Clean Catch Midstream Urine Culture - Final No growth. Assessment and Plan (1) UTI (urinary tract infection): Status: Acute (2) Non-rheumatic aortic stenosis: Status: Acute (3) Bradycardia: Status: Acute (4) Fall: Status: Acute (5) Elevated troponin: Status: Acute Assessment and Plan: 85-year-old female with a past medical history of hypertension, hyperlipidemia, diabetes, hypothyroidism, CAD with stents presented to the hospital with a chief complaint of fall. Noted to have elevated troponins admitted to the hospital for further management. fall initial CTH with ? of subacute vs chronic left precentral gyrus infarct MRI with no evidence of acute or subacute infarct, but mentioned possible NPH neuro appreciated - less likely NPH, but worth ruling out with high volume LP IR was unable to perform, will defer until able awaiting guardianship Psych saw the patient-ed with case management patient will need psych evaluation for competency unclear situation at home and patient does not seem like understand the situation-seen by psych :seems pt Lacks capacity to make medical decisions but is able to show capacity to appoint HCP. due to poor home environment, her was sick and admitted to [facility], lack capacity to make medical decisions will need guardianship . CAD/Elevated troponins: asa, statin Diabetes insulin HTN hydralazine, amlodipine, metoprolol
[2020-10-08 11:21] LABS: Glucose, Whole Blood 314 mg/dL (60-115)
[2020-10-08 16:48] LABS: Glucose, Whole Blood 165 mg/dL (60-115)
[2020-10-08 20:38] LABS: Glucose, Whole Blood 305 mg/dL (60-115)
[2020-10-08] MEDS: Atorvastatin Calcium 80 MG TABLET PO (21:01)
[2020-10-08] MEDS: traZODone HCL 25 MG HALFTAB PO (21:02)
[2020-10-09] VITALS (7 sets, daily range): BP systolic 156–191; BP diastolic 70–90; PULSE 57–80; RESP 16–20; TEMP 36.2–36.8; O2SAT 93–100
[2020-10-09] MEDS: 0.9 % Sodium Chloride Flush 3 ML SYRINGE IVFLUSH ×3 (00:02→15:42)
[2020-10-09] MEDS: Levothyroxine Sodium 75 MCG TABLET PO (06:05)
[2020-10-09 07:24] LABS: Glucose, Whole Blood 190 mg/dL (60-115)
[2020-10-09] MEDS: Enoxaparin Sodium 40 MG/0.4 ML SYRINGE SUBCUT (08:34)
[2020-10-09] MEDS: Insulin Lispro 100 UNIT/ML 3 ML VIAL SUBCUT ×4 (08:34→20:20)
[2020-10-09] MEDS: Enalapril Maleate 10 MG TABLET 20 MG PO ×2 (08:35→20:19)
[2020-10-09] MEDS: hydrALAZINE HCl 25 MG TABLET PO ×2 (08:35→20:19)
[2020-10-09] MEDS: Aspirin 81 MG TAB.CHEW PO (08:35)
[2020-10-09] MEDS: amLODIPine Besylate 10 MG TABLET PO (08:35)
[2020-10-09 11:09] LABS: Glucose, Whole Blood 324 mg/dL (60-115)
--- NOTE | 2020-10-09 11:49 | MHC.CM.PN ---
per rounds pt ready for dc guardianship court date is 10/20 cm will contiue to follow
--- NOTE | 2020-10-09 11:52 | HO.PM.IMPN ---
Subjective Subjective Date of Service: 10/09/20 Interval History: wants to go home Cardiovascular Cardiovascular: Reports no additional cardiovascular complaints Respiratory Respiratory: Reports no additional respiratory complaints Physical Exam Vital Signs: Vital Signs: Last Vital Signs Temp 97.6 F 10/09/20 11:00 Pulse 61 10/09/20 11:00 Resp 16 10/09/20 11:00 BP 169/90 H 10/09/20 11:00 Pulse Ox 100 10/09/20 11:00 Body Mass Index 24.7 General: AO X 3, no acute distress Resp: CTA bilateral CVS: S1,S2,RRR GI: soft, non tender, non distended Neuro: motor grossly intact Psych: poor insight Objective Data Current Medications Generic Name Dose Route Start Last Admin Trade Name Freq PRN Reason Stop Dose Admin Acetaminophen 650 mg 09/28/20 11:39 10/03/20 23:35 Acetaminophen 325 Mg Tablet PO 650 mg Q6H PRN Administration PAINFEV Amlodipine Besylate 10 mg 09/21/20 09:00 10/09/20 08:35 Amlodipine Besylate 10 Mg Tablet PO 10 mg DAILY RAGHAVENDRA Administration Protocol Aspirin 81 mg 09/21/20 09:00 10/09/20 08:35 Aspirin 81 Mg Tab.Chew PO 81 mg DAILY RAGHAVENDRA Administration Atorvastatin Calcium 80 mg 10/04/20 21:00 10/08/20 21:01 Atorvastatin Calcium 80 Mg Tablet PO 80 mg BEDTIME RAGHAVENDRA Administration Enalapril Maleate 20 mg 10/05/20 12:00 10/09/20 08:35 Enalapril Maleate 10 Mg Tablet PO 20 mg BID RAGHAVENDRA Administration Enoxaparin Sodium 40 mg 10/07/20 08:00 10/09/20 08:34 Enoxaparin Sodium 40 Mg/0.4 Ml Syringe SUBCUT 40 mg Q24H RAGHAVENDRA Administration Hydralazine HCl 25 mg 10/05/20 11:45 10/09/20 08:35 Hydralazine Hcl 25 Mg Tablet PO 25 mg BID RAGHAVENDRA Administration Protocol Hydroxyzine HCl 25 mg 09/25/20 19:19 10/05/20 21:11 Hydroxyzine Hcl 25 Mg Tablet PO 25 mg Q8H PRN Administration Restlessness Insulin Human Lispro 0 unit 09/21/20 07:30 10/09/20 08:34 Insulin Lispro 100 Unit/Ml 3 Ml Vial SUBCUT 2 unit QIDACHS RAGHAVENDRA Administration Protocol Levothyroxine Sodium 75 mcg 09/21/20 06:30 10/09/20 06:05 Levothyroxine Sodium 75 Mcg Tablet PO 75 mcg DAILY@0630 [facility] Administration Pharmacy Consult 1 each 09/20/20 18:27 Consult Rx Perform Med Rec MISCELLANE ONCE PRN Consult order Sodium Chloride 3 ml 09/21/20 00:00 10/09/20 08:35 0.9 % Sodium Chloride Flush 3 Ml Syringe IVFLUSH 3 ml QSHIFT [facility] Administration Trazodone HCl 25 mg 09/25/20 19:19 10/08/20 21:02 Trazodone Hcl 25 Mg Halftab PO 25 mg BEDTIME PRN Administration Insomnia Labs CBC & Chem 7: 09/27/20 05:26 09/27/20 05:26 Microbiology Microbiology Results: Microbiology 09/21/20 Unknown Urine clean catch - Clean Catch Midstream Urine Culture - Final No growth. Assessment and Plan (1) UTI (urinary tract infection): Status: Acute (2) Non-rheumatic aortic stenosis: Status: Acute (3) Bradycardia: Status: Acute (4) Fall: Status: Acute (5) Elevated troponin: Status: Acute Assessment and Plan: 85-year-old female with a past medical history of hypertension, hyperlipidemia, diabetes, hypothyroidism, CAD with stents presented to the hospital with a chief complaint of fall. Noted to have elevated troponins admitted to the hospital for further management. fall initial CTH with ? of subacute vs chronic left precentral gyrus infarct MRI with no evidence of acute or subacute infarct, but mentioned possible NPH neuro appreciated - less likely NPH, and not good candidate for HYDROELECTRIC PLANT OPERATOR shunt awaiting guardianship Psych saw the patient due to poor home environment, her was sick and admitted to [facility], lack capacity to make medical decisions will need guardianship . CAD/Elevated troponins: asa, statin Diabetes insulin HTN hydralazine, amlodipine, metoprolol
[2020-10-09 16:17] LABS: Glucose, Whole Blood 296 mg/dL (60-115)
[2020-10-09 19:49] LABS: Glucose, Whole Blood 270 mg/dL (60-115)
[2020-10-09] MEDS: Atorvastatin Calcium 80 MG TABLET PO (20:19)
[2020-10-10] VITALS (10 sets, daily range): BP systolic 152–189; BP diastolic 70–96; PULSE 54–66; RESP 18–114; TEMP 35.5–36.7; O2SAT 96–98
[2020-10-10] MEDS: 0.9 % Sodium Chloride Flush 3 ML SYRINGE IVFLUSH ×4 (01:07→21:09)
[2020-10-10] MEDS: Levothyroxine Sodium 75 MCG TABLET PO (06:47)
[2020-10-10 07:20] LABS: Glucose, Whole Blood 165 mg/dL (60-115)
[2020-10-10] MEDS: Insulin Lispro 100 UNIT/ML 3 ML VIAL SUBCUT ×4 (08:04→21:09)
[2020-10-10] MEDS: Enoxaparin Sodium 40 MG/0.4 ML SYRINGE SUBCUT (08:04)
[2020-10-10] MEDS: amLODIPine Besylate 10 MG TABLET PO (08:05)
[2020-10-10] MEDS: hydrALAZINE HCl 25 MG TABLET PO (08:05)
[2020-10-10] MEDS: Aspirin 81 MG TAB.CHEW PO (08:05)
[2020-10-10] MEDS: Enalapril Maleate 10 MG TABLET 20 MG PO ×2 (08:06→21:09)
[2020-10-10 11:28] LABS: Glucose, Whole Blood 299 mg/dL (60-115)
[2020-10-10 16:24] LABS: Glucose, Whole Blood 290 mg/dL (60-115)
--- NOTE | 2020-10-10 16:29 | P.PNIM_ITS ---
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 CVS no chest pain, no palpitation. Respiratory no cough, no shortness of breath Gastrointestinal no nausea, no vomiting, no abdominal pain Physical Exam Vital Signs: Vital Signs: Last Vital Signs Temp 97.1 F 10/10/20 15:39 Pulse 60 10/10/20 15:39 Resp 18 10/10/20 15:39 BP 163/71 H 10/10/20 15:39 Pulse Ox 97 10/10/20 15:39 Body Mass Index 24.7 General no acute distress ,sitting comfortably. Neck supple no JVD. CVS regular rate rhythm, Respiratory lungs clear to auscultation, no respiratory distress, no wheeze, no rhonchi. Gastrointestinal abdomen soft, nontender, bowel sounds audible Extremities no clubbing, no cyanosis or edema. Neuro nonfocal , speech clear. Skin no rash Objective Data Current Medications Generic Name Dose Route Start Last Admin Trade Name Freq PRN Reason Stop Dose Admin Acetaminophen 650 mg 09/28/20 11:39 10/03/20 23:35 Acetaminophen 325 Mg Tablet PO 650 mg Q6H PRN Administration PAINFEV Amlodipine Besylate 10 mg 09/21/20 09:00 10/10/20 08:05 Amlodipine Besylate 10 Mg Tablet PO 10 mg DAILY RAGHAVENDRA Administration Protocol Aspirin 81 mg 09/21/20 09:00 10/10/20 08:05 Aspirin 81 Mg Tab.Chew PO 81 mg DAILY RAGHAVENDRA Administration Atorvastatin Calcium 80 mg 10/04/20 21:00 10/09/20 20:19 Atorvastatin Calcium 80 Mg Tablet PO 80 mg BEDTIME RAGHAVENDRA Administration Enalapril Maleate 20 mg 10/05/20 12:00 10/10/20 08:06 Enalapril Maleate 10 Mg Tablet PO 20 mg BID RAGHAVENDRA Administration Enoxaparin Sodium 40 mg 10/07/20 08:00 10/10/20 08:04 Enoxaparin Sodium 40 Mg/0.4 Ml Syringe SUBCUT 40 mg Q24H RAGHAVENDRA Administration Hydralazine HCl 25 mg 10/05/20 11:45 10/10/20 08:05 Hydralazine Hcl 25 Mg Tablet PO 25 mg BID [facility] Administration Protocol Hydroxyzine HCl 25 mg 09/25/20 19:19 10/05/20 21:11 Hydroxyzine Hcl 25 Mg Tablet PO 25 mg Q8H PRN Administration Restlessness Insulin Human Lispro 0 unit 09/21/20 07:30 10/10/20 11:48 Insulin Lispro 100 Unit/Ml 3 Ml Vial SUBCUT 6 unit QIDACHS [facility] Administration Protocol Levothyroxine Sodium 75 mcg 09/21/20 06:30 10/10/20 06:47 Levothyroxine Sodium 75 Mcg Tablet PO 75 mcg DAILY@0630 [facility] Administration Pharmacy Consult 1 each 09/20/20 18:27 Consult Rx Perform Med Rec MISCELLANE ONCE PRN Consult order Sodium Chloride 3 ml 09/21/20 00:00 10/10/20 08:06 0.9 % Sodium Chloride Flush 3 Ml Syringe IVFLUSH 3 ml QSHIFT [facility] Administration Trazodone HCl 25 mg 09/25/20 19:19 10/08/20 21:02 Trazodone Hcl 25 Mg Halftab PO 25 mg BEDTIME PRN Administration Insomnia Labs CBC & Chem 7: 09/27/20 05:26 09/27/20 05:26 Microbiology Microbiology Results: Microbiology 09/21/20 Unknown Urine clean catch - Clean Catch Midstream Urine Culture - Final No growth. Assessment and Plan (1) Communicating hydrocephalus: Problem details: ventricles are moderately enlarged, slightly disproportionate to cortical atrophy which may suggest communicating hydrocephalus. I do not believe this is the case and feel she is a poor shunt candidate. Status: Acute (2) Neurocognitive disorder: Problem details: Start donepezil 5 mg daily Status: Acute (3) Atherosclerotic cardiovascular disease: Status: Acute Assessment and Plan: 85-year-old female with a past medical history of hypertension, hyperlipidemia, diabetes, hypothyroidism, CAD with stents presented to the hospital with a chief complaint of fall. Noted to have elevated troponins admitted to the hospital for further management. s/p fall initial head CT with ? of subacute vs chronic left precentral gyrus infarct MRI with no evidence of acute or subacute infarct, but mentioned possible FITTER/WELDER H,seen by neuro Dr Tomlinson feels less likely NPH, and not good candidate for NUCLEAR MEDICINE OFFICER shunt awaiting guardianship since patient has lack of capacity to make medical decision seen by Physical therapy and noted to have good functional capacity therefore discharged from physical therapy services, recommend to ambulate patient 3 times a day. CAD/Elevated troponins: No chest discomfort, likely due to hypertension, and elevated creatinine, continue asa, and statin Diabetes Elevated blood sugars between 150-300 on insulin sliding scale, will resume home medication metformin and glipizide at home takes glimepiride HTN Elevated blood pressure on hydralazine, amlodipine, and metoprolol will increase dose of hydralazine from 25 mg b.i.d. to 50 mg b.i.d. for better blood pressure control. Disposition patient wishes to be discharged home but due to incompetency waiting for guardianship patient is very frustrated being here, and not aware of her sick who was sent to [facility], spoke with manager social patient will have guardianship on October.
[2020-10-10] MEDS: metFORMIN HCl 500 MG TABLET PO (17:20)
[2020-10-10 19:43] LABS: Glucose, Whole Blood 246 mg/dL (60-115)
[2020-10-10] MEDS: Atorvastatin Calcium 80 MG TABLET PO (21:09)
[2020-10-10] MEDS: hydrALAZINE HCl 25 MG TABLET 50 MG PO (21:10)
[2020-10-11] VITALS (7 sets, daily range): BP systolic 143–172; BP diastolic 63–92; PULSE 62–68; RESP 14–19; TEMP 36–36.6; O2SAT 96–99
[2020-10-11] MEDS: Levothyroxine Sodium 75 MCG TABLET PO (05:33)
[2020-10-11 07:10] LABS: Glucose, Whole Blood 137 mg/dL (60-115)
[2020-10-11] MEDS: 0.9 % Sodium Chloride Flush 3 ML SYRINGE IVFLUSH ×3 (08:26→20:34)
[2020-10-11] MEDS: glipiZIDE XL 5 MG TAB.ER.24 PO (08:26)
[2020-10-11] MEDS: metFORMIN HCl 500 MG TABLET PO ×2 (08:26→17:17)
[2020-10-11] MEDS: Aspirin 81 MG TAB.CHEW PO (08:26)
[2020-10-11] MEDS: Enalapril Maleate 10 MG TABLET 20 MG PO ×2 (08:27→20:33)
[2020-10-11] MEDS: Enoxaparin Sodium 40 MG/0.4 ML SYRINGE SUBCUT (08:27)
[2020-10-11] MEDS: amLODIPine Besylate 10 MG TABLET PO (08:28)
[2020-10-11] MEDS: hydrALAZINE HCl 25 MG TABLET 50 MG PO ×2 (08:29→20:33)
[2020-10-11] MEDS: Loperamide HCl 2 MG CAPSULE PO (08:57)
[2020-10-11 11:17] LABS: Glucose, Whole Blood 170 mg/dL (60-115)
[2020-10-11] MEDS: Insulin Lispro 100 UNIT/ML 3 ML VIAL SUBCUT ×2 (12:18→20:32)
--- NOTE | 2020-10-11 15:41 | HO.PM.IMPN ---
Subjective Subjective Date of Service: 10/12/20 Interval History: Patient had 1 episode of loose stool this morning, denies abdominal pain no nausea vomiting admits that she ate a lot yesterday, patient remains frustrated about her discharge plan and not being aware of for 's health. ROS General no headache, no dizziness, no fever chills. CVS no chest pain, no palpitation. Respiratory no cough, no shortness of breath Gastrointestinal no nausea, no vomiting, no abdominal pain, 1 episode of diarrhea Physical Exam Vital Signs: Vital Signs: Last Vital Signs Temp 97.5 F 10/11/20 15: Pulse 68 10/11/20 15:22 Resp 19 10/11/20 15:22 BP 162/71 H 10/11/20 15: Pulse Ox 98 10/11/20 15: Body Mass Index 24.7 General no acute distress ,sitting comfortably. Neck supple no JVD. CVS regular rate rhythm, Respiratory lungs clear to auscultation, no respiratory distress, no wheeze, no rhonchi. Gastrointestinal abdomen soft, nontender, bowel sounds audible Extremities no clubbing, no cyanosis or edema. Neuro nonfocal , speech clear. Skin no rash Objective Data Current Medications Generic Name Dose Route Start Last Admin Trade Name Freq PRN Reason Stop Dose Admin Acetaminophen 650 mg 09/28/20 11:39 10/03/20 23:35 Acetaminophen 325 Mg Tablet PO 650 mg Q6H PRN Administration PAINFEV Amlodipine Besylate 10 mg 09/21/20 09:00 10/11/20 08:28 Amlodipine Besylate 10 Mg Tablet PO 10 mg DAILY RAGHAVENDRA Administration Protocol Aspirin 81 mg 09/21/20 09:00 10/11/20 08:26 Aspirin 81 Mg Tab.Chew PO 81 mg DAILY RAGHAVENDRA Administration Atorvastatin Calcium 80 mg 10/04/20 21:00 10/10/20 21:09 Atorvastatin Calcium 80 Mg Tablet PO 80 mg BEDTIME RAGHAVENDRA Administration Enalapril Maleate 20 mg 10/05/20 12:00 10/11/20 08:27 Enalapril Maleate 10 Mg Tablet PO 20 mg BID RAGHAVENDRA Administration Enoxaparin Sodium 40 mg 10/07/20 08:00 10/11/20 08:27 Enoxaparin Sodium 40 Mg/0.4 Ml Syringe SUBCUT 40 mg Q24H RAGHAVENDRA Administration Glipizide 5 mg 10/11/20 09:00 10/11/20 08:26 Glipizide Xl 5 Mg Tab.Er.24 PO 5 mg DAILY RAGHAVENDRA Administration Hydralazine HCl 50 mg 10/10/20 21:00 10/11/20 08:29 Hydralazine Hcl 25 Mg Tablet PO 50 mg BID RAGHAVENDRA Administration Protocol Hydroxyzine HCl 25 mg 09/25/20 19:19 10/05/20 21:11 Hydroxyzine Hcl 25 Mg Tablet PO 25 mg Q8H PRN Administration Restlessness Insulin Human Lispro 0 unit 09/21/20 07:30 10/11/20 12:18 Insulin Lispro 100 Unit/Ml 3 Ml Vial SUBCUT 2 unit QIDACHS [facility] Administration Protocol Levothyroxine Sodium 75 mcg 09/21/20 06:30 10/11/20 05:33 Levothyroxine Sodium 75 Mcg Tablet PO 75 mcg DAILY@0630 RAGHAVENDRA Administration Loperamide HCl 2 mg 10/11/20 08:21 10/11/20 08:57 Loperamide Hcl 2 Mg Capsule PO 2 mg Q6H PRN Administration Constipation Metformin HCl 500 mg 10/10/20 17:00 10/11/20 08:26 Metformin Hcl 500 Mg Tablet PO 500 mg BIDWM [facility] Administration Pharmacy Consult 1 each 09/20/20 18:27 Consult Rx Perform Med Rec MISCELLANE ONCE PRN Consult order Sodium Chloride 3 ml 09/21/20 00:00 10/11/20 08:26 0.9 % Sodium Chloride Flush 3 Ml Syringe IVFLUSH 3 ml QSHIFT [facility] Administration Trazodone HCl 25 mg 09/25/20 19:19 10/08/20 21:02 Trazodone Hcl 25 Mg Halftab PO 25 mg BEDTIME PRN Administration Insomnia Labs CBC & Chem 7: 09/27/20 05:26 10/12/20 06:46 Microbiology Microbiology Results: Microbiology 09/21/20 Unknown Urine clean catch - Clean Catch Midstream Urine Culture - Final No growth. Assessment and Plan (1) Neurocognitive disorder: Problem details: Start donepezil 5 mg daily Status: Acute (2) Elevated troponin: Status: Acute (3) Abnormal ECG: Status: Acute (4) Fall: Status: Acute Assessment and Plan: 85-year-old female with a past medical history of hypertension, hyperlipidemia, diabetes, hypothyroidism, CAD with stents presented to the hospital with a chief complaint of fall. Noted to have elevated troponins admitted to the hospital for further management. s/p fall No detail information available surrounding her fall initial head CT with ? of subacute vs chronic left precentral gyrus infarct MRI with no evidence of acute or subacute infarct, but mentioned possible NPH,seen by neuro Dr Tomlinson feels less likely NPH, and not good candidate for LABORATORY CUREMAN shunt awaiting guardianship since patient has lack of capacity to make medical decision seen by Physical therapy and noted to have good functional capacity therefore discharged from physical therapy services, recommend to ambulate patient 3 times a day. CAD/Elevated troponins: No chest discomfort, likely due to hypertension, and elevated creatinine, seen by Cardiology they recommend to treat her as stable coronary artery disease, continue asa, metoprolol and statin Diabetes Elevated blood sugars between 150-300 on insulin sliding scale, started back on home medication metformin and glipizide at home takes glimepiride HTN Elevated blood pressure on hydralazine, amlodipine, and metoprolol dose of hydralazine increased from 25 mg b.i.d. to 50 mg b.i.d. BP remains slightly elevated will change to hydralazine 50 mg t.i.d. for better blood pressure control. Disposition patient wishes to be discharged home but due to incompetency waiting for guardianship patient is very frustrated being here, and not aware of her sick who was sent to [facility], spoke with delinquency prevention social worker patient will have guardianship on October.
[2020-10-11 16:10] LABS: Glucose, Whole Blood 130 mg/dL (60-115)
[2020-10-11 20:19] LABS: Glucose, Whole Blood 163 mg/dL (60-115)
[2020-10-11] MEDS: Atorvastatin Calcium 80 MG TABLET PO (20:33)
[2020-10-12] VITALS (9 sets, daily range): BP systolic 147–180; BP diastolic 57–85; PULSE 55–66; RESP 18–20; TEMP 36.2–37; O2SAT 97–100
[2020-10-12] MEDS: Levothyroxine Sodium 75 MCG TABLET PO (06:19)
[2020-10-12 07:22] LABS: Creatinine Clr Calc Pharmacy 36.7; Estimated Glomerular Filt Rate 51
[2020-10-12 08:00] LABS: Glucose, Whole Blood 122 mg/dL (60-115)
[2020-10-12] MEDS: amLODIPine Besylate 10 MG TABLET PO (08:16)
[2020-10-12] MEDS: Loperamide HCl 2 MG CAPSULE PO (08:16)
[2020-10-12] MEDS: Aspirin 81 MG TAB.CHEW PO (08:17)
[2020-10-12] MEDS: hydrALAZINE HCl 25 MG TABLET 50 MG PO ×2 (08:17→20:17)
[2020-10-12] MEDS: glipiZIDE XL 5 MG TAB.ER.24 PO (08:17)
[2020-10-12] MEDS: Enoxaparin Sodium 40 MG/0.4 ML SYRINGE SUBCUT (08:17)
[2020-10-12] MEDS: Enalapril Maleate 10 MG TABLET 20 MG PO ×2 (08:17→20:16)
[2020-10-12] MEDS: metFORMIN HCl 500 MG TABLET PO ×2 (08:17→16:47)
[2020-10-12] MEDS: 0.9 % Sodium Chloride Flush 3 ML SYRINGE IVFLUSH ×3 (08:17→20:17)
[2020-10-12 11:51] LABS: Glucose, Whole Blood 221 mg/dL (60-115)
--- NOTE | 2020-10-12 12:28 | HO.PM.IMPN ---
Subjective Subjective Date of Service: 10/13/20 Interval History: ROS General no headache, no dizziness, no fever chills. CVS no chest pain, no palpitation. Respiratory no cough, no shortness of breath Gastrointestinal no nausea, no vomiting, no abdominal pain, diarrhea Physical Exam Vital Signs: Vital Signs: Last Vital Signs Temp 97.1 F 10/12/20 07:56 Pulse 55 10/12/20 07:56 Resp 18 10/12/20 07:56 BP 180/85 H 10/12/20 08:16 Pulse Ox 98 10/12/20 07:56 Body Mass Index 24.7 General no acute distress ,sitting comfortably. Neck supple no JVD. CVS regular rate rhythm, Respiratory lungs clear to auscultation, no respiratory distress, no wheeze, no rhonchi. Gastrointestinal abdomen soft, nontender, bowel sounds audible Extremities no clubbing, no cyanosis or edema. Neuro nonfocal , speech clear. Skin no rash Objective Data Current Medications Generic Name Dose Route Start Last Admin Trade Name Freq PRN Reason Stop Dose Admin Acetaminophen 650 mg 09/28/20 11:39 10/03/20 23:35 Acetaminophen 325 Mg Tablet PO 650 mg Q6H PRN Administration PAINFEV Amlodipine Besylate 10 mg 09/21/20 09:00 10/12/20 08:16 Amlodipine Besylate 10 Mg Tablet PO 10 mg DAILY RAGHAVENDRA Administration Protocol Aspirin 81 mg 09/21/20 09:00 10/12/20 08:17 Aspirin 81 Mg Tab.Chew PO 81 mg DAILY RAGHAVENDRA Administration Atorvastatin Calcium 80 mg 10/04/20 21:00 10/11/20 20:33 Atorvastatin Calcium 80 Mg Tablet PO 80 mg BEDTIME RAGHAVENDRA Administration Enalapril Maleate 20 mg 10/05/20 12:00 10/12/20 08:17 Enalapril Maleate 10 Mg Tablet PO 20 mg BID RAGHAVENDRA Administration Enoxaparin Sodium 40 mg 10/07/20 08:00 10/12/20 08:17 Enoxaparin Sodium 40 Mg/0.4 Ml Syringe SUBCUT 40 mg Q24H RAGHAVENDRA Administration Glipizide 5 mg 10/11/20 09:00 10/12/20 08:17 Glipizide Xl 5 Mg Tab.Er.24 PO 5 mg DAILY RAGHAVENDRA Administration Hydralazine HCl 50 mg 10/10/20 21:00 10/12/20 08:17 Hydralazine Hcl 25 Mg Tablet PO 50 mg BID RAGHAVENDRA Administration Protocol Hydroxyzine HCl 25 mg 09/25/20 19:19 10/05/20 21:11 Hydroxyzine Hcl 25 Mg Tablet PO 25 mg Q8H PRN Administration Restlessness Insulin Human Lispro 0 unit 09/21/20 07:30 10/12/20 08:12 Insulin Lispro 100 Unit/Ml 3 Ml Vial SUBCUT Not Given QIDACHS [facility] Protocol Levothyroxine Sodium 75 mcg 09/21/20 06:30 10/12/20 06:19 Levothyroxine Sodium 75 Mcg Tablet PO 75 mcg DAILY@0630 RAGHAVENDRA Administration Loperamide HCl 2 mg 10/11/20 08:21 10/12/20 08:16 Loperamide Hcl 2 Mg Capsule PO 2 mg Q6H PRN Administration Constipation Metformin HCl 500 mg 10/10/20 17:00 10/12/20 08:17 Metformin Hcl 500 Mg Tablet PO 500 mg BIDWM [facility] Administration Pharmacy Consult 1 each 09/20/20 18:27 Consult Rx Perform Med Rec MISCELLANE ONCE PRN Consult order Sodium Chloride 3 ml 09/21/20 00:00 10/12/20 08:17 0.9 % Sodium Chloride Flush 3 Ml Syringe IVFLUSH 3 ml QSHIFT [facility] Administration Trazodone HCl 25 mg 09/25/20 19:19 10/08/20 21:02 Trazodone Hcl 25 Mg Halftab PO 25 mg BEDTIME PRN Administration Insomnia Labs CBC & Chem 7: 09/27/20 05:26 10/12/20 06:46 Microbiology Microbiology Results: Microbiology 09/21/20 Unknown Urine clean catch - Clean Catch Midstream Urine Culture - Final No growth. Assessment and Plan (1) Communicating hydrocephalus: Problem details: ventricles are moderately enlarged, slightly disproportionate to cortical atrophy which may suggest communicating hydrocephalus. I do not believe this is the case and feel she is a poor shunt candidate. Status: Acute (2) Neurocognitive disorder: Problem details: Start donepezil 5 mg daily Status: Acute (3) Atherosclerotic cardiovascular disease: Status: Acute (4) Non-rheumatic aortic stenosis: Status: Acute (5) Fall: Status: Acute Assessment and Plan: 85-year-old female with a past medical history of hypertension, hyperlipidemia, diabetes, hypothyroidism, CAD with stents presented to the hospital with a chief complaint of fall. Noted to have elevated troponins admitted to the hospital for further management. s/p fall No detail information available surrounding her fall since patient has cognitive impairment and poor historian initial head CT with ? of subacute vs chronic left precentral gyrus infarct MRI with no evidence of acute or subacute infarct, but mentioned possible NPH,seen by neuro Dr Tomlinson feels less likely NPH, and not good candidate for SCRUFF WORKER shunt awaiting guardianship since patient has lack of capacity to make medical decision, seen by Physical therapy and noted to have good functional capacity therefore discharged from physical therapy services, recommend to ambulate patient 3 times a day. CAD/Elevated troponins: No chest discomfort, likely due to hypertension, and elevated creatinine, seen by Cardiology they recommend to treat her as stable coronary artery disease, continue asa, metoprolol and statin Diabetes Elevated blood sugars between 150-300 on insulin sliding scale, started back on home medication metformin and glipizide at home takes glimepiride HTN Elevated blood pressure on hydralazine, amlodipine, and metoprolol dose of hydralazine increased from 25 mg b.i.d. to 50 mg b.i.d. BP remains slightly elevated will change to hydralazine 50 mg t.i.d. for better blood pressure control. Disposition patient wishes to be discharged home but due to incompetency waiting for guardianship, spoke with social sciences lecturer patient will have guardianship on October 20.
[2020-10-12] MEDS: Insulin Lispro 100 UNIT/ML 3 ML VIAL SUBCUT ×2 (12:31→16:47)
[2020-10-12 16:22] LABS: Glucose, Whole Blood 157 mg/dL (60-115)
[2020-10-12 19:48] LABS: Glucose, Whole Blood 130 mg/dL (60-115)
[2020-10-12] MEDS: Atorvastatin Calcium 80 MG TABLET PO (20:17)
[2020-10-13] VITALS (10 sets, daily range): BP systolic 145–166; BP diastolic 58–80; PULSE 53–65; RESP 15–18; TEMP 36.1–36.7; O2SAT 96–100
[2020-10-13] MEDS: Levothyroxine Sodium 75 MCG TABLET PO (05:18)
[2020-10-13 07:41] LABS: Glucose, Whole Blood 105 mg/dL (60-115)
[2020-10-13] MEDS: Enalapril Maleate 10 MG TABLET 20 MG PO ×2 (09:44→21:50)
[2020-10-13] MEDS: Aspirin 81 MG TAB.CHEW PO (09:44)
[2020-10-13] MEDS: glipiZIDE XL 5 MG TAB.ER.24 PO (09:44)
[2020-10-13] MEDS: hydrALAZINE HCl 25 MG TABLET 50 MG PO ×3 (09:44→21:51)
[2020-10-13] MEDS: amLODIPine Besylate 10 MG TABLET PO (09:44)
[2020-10-13] MEDS: metFORMIN HCl 500 MG TABLET PO ×2 (09:44→16:49)
[2020-10-13] MEDS: Enoxaparin Sodium 40 MG/0.4 ML SYRINGE SUBCUT (09:45)
[2020-10-13] MEDS: 0.9 % Sodium Chloride Flush 3 ML SYRINGE IVFLUSH ×2 (09:46→16:49)
[2020-10-13 12:07] LABS: Glucose, Whole Blood 249 mg/dL (60-115)
[2020-10-13] MEDS: Insulin Lispro 100 UNIT/ML 3 ML VIAL SUBCUT (12:17)
--- NOTE | 2020-10-13 13:01 | MHC.CM.PN ---
CM RECEIVED A MESSAGE THAT THIS PTS BROTHER/HCP, VITOR MARTEL ([phone]) HAD CALLED AND REQUESTED TO SPEAK TO CM. CALLED VITOR WHO CLARIFIED HE IS HER BROTHER AND HAS NO SEEN HER FOR MANY YEARS. HE IS NOT HER HCP AND DOES NOT BELIEVE SHE HAS ANYTHING LIKE THAT ARRANGED. VITOR REPORTS SHE HAS BEEN CALLING HIM ALMOST DAILY AND HAS TOLD HIM THAT HER HOME IS BEING CONDEMNED AND THAT SHE NEEDS A BISCUITWARE BRUSHER, BUT HE IS UNSURE WHAT IS ACTUALLY ACCURATE. HE ASKS IF THERE IS ANY WAY HE COULD HELP AND IF THE PT ACTUALLY NEEDED A BISCUITWARE BRUSHER. HE REPORTS HE DOES NOT KNOW THE PTS FINANCIAL SITUATION. HE REPORTS HE COULD NOT BE HER GUARDIAN BECAUSE HE IS IN [place] AND RECENTLY BROKE HIS LEG. HE STATES HE IS JUST STARTING TO GET AROUND AGAIN. HE REPORTS SHE DOES HAVE TWO SONS BUT HE IS UNSURE WHAT THE RELATIONSHIP IS WITH THEM. VITOR REPORTS HE WILL CONTINUE TO PROVIDE PT WITH EMOTIONAL SUPPORT WHEN SHE CALLS HIM BUT THERE IS NOT MUCH ELSE HE COULD DO AT THIS TIME. HE IS ASKING THAT HE BE NOTIFIED WHEN A DC PLAN IS KNOWN SO THAT HE WILL KNOW WHERE SHE IS.
--- NOTE | 2020-10-13 14:34 | HO.PM.IMPN ---
Subjective Subjective Date of Service: 10/13/20 Interval History: No acute issues overnight blood pressure remains elevated but improveing, denies pain. General no headache, no dizziness, no fever chills. CVS no chest pain, no palpitation. Respiratory no cough, no shortness of breath Gastrointestinal no nausea, no vomiting, no abdominal pain, Physical Exam Vital Signs: Vital Signs: Last Vital Signs Temp 97.0 F 10/13/20 08:23 Pulse 56 10/13/20 08:23 Resp 18 10/13/20 08:23 BP 158/58 H 10/13/20 08:23 Pulse Ox 96 10/13/20 08:23 Body Mass Index 24.7 General no acute distress ,sitting comfortably. Neck supple no JVD. CVS regular rate rhythm, Respiratory lungs clear to auscultation, no respiratory distress, no wheeze, no rhonchi. Gastrointestinal abdomen soft, nontender, bowel sounds audible Extremities no clubbing, no cyanosis or edema. Neuro nonfocal , speech clear. Psych poor insight Skin no rash Objective Data Current Medications Generic Name Dose Route Start Last Admin Trade Name Freq PRN Reason Stop Dose Admin Acetaminophen 650 mg 09/28/20 11:39 10/03/20 23:35 Acetaminophen 325 Mg Tablet PO 650 mg Q6H PRN Administration PAINFEV Amlodipine Besylate 10 mg 09/21/20 09:00 10/13/20 09:44 Amlodipine Besylate 10 Mg Tablet PO 10 mg DAILY RAGHAVENDRA Administration Protocol Aspirin 81 mg 09/21/20 09:00 10/13/20 09:44 Aspirin 81 Mg Tab.Chew PO 81 mg DAILY RAGHAVENDRA Administration Atorvastatin Calcium 80 mg 10/04/20 21:00 10/12/20 20:17 Atorvastatin Calcium 80 Mg Tablet PO 80 mg BEDTIME RAGHAVENDRA Administration Enalapril Maleate 20 mg 10/05/20 12:00 10/13/20 09:44 Enalapril Maleate 10 Mg Tablet PO 20 mg BID RAGHAVENDRA Administration Enoxaparin Sodium 40 mg 10/07/20 08:00 10/13/20 09:45 Enoxaparin Sodium 40 Mg/0.4 Ml Syringe SUBCUT 40 mg Q24H RAGHAVENDRA Administration Glipizide 5 mg 10/11/20 09:00 10/13/20 09:44 Glipizide Xl 5 Mg Tab.Er.24 PO 5 mg DAILY RAGHAVENDRA Administration Hydralazine HCl 50 mg 10/10/20 21:00 10/13/20 09:44 Hydralazine Hcl 25 Mg Tablet PO 50 mg BID [facility] Administration Protocol Hydroxyzine HCl 25 mg 09/25/20 19:19 10/05/20 21:11 Hydroxyzine Hcl 25 Mg Tablet PO 25 mg Q8H PRN Administration Restlessness Insulin Human Lispro 0 unit 09/21/20 07:30 10/13/20 12:17 Insulin Lispro 100 Unit/Ml 3 Ml Vial SUBCUT 4 unit QIDACHS [facility] Administration Protocol Levothyroxine Sodium 75 mcg 09/21/20 06:30 10/13/20 05:18 Levothyroxine Sodium 75 Mcg Tablet PO 75 mcg DAILY@0630 [facility] Administration Loperamide HCl 2 mg 10/11/20 08:21 10/12/20 08:16 Loperamide Hcl 2 Mg Capsule PO 2 mg Q6H PRN Administration Constipation Metformin HCl 500 mg 10/10/20 17:00 10/13/20 09:44 Metformin Hcl 500 Mg Tablet PO 500 mg BIDWM [facility] Administration Pharmacy Consult 1 each 09/20/20 18:27 Consult Rx Perform Med Rec MISCELLANE ONCE PRN Consult order Sodium Chloride 3 ml 09/21/20 00:00 10/13/20 09:46 0.9 % Sodium Chloride Flush 3 Ml Syringe IVFLUSH 3 ml QSHIFT [facility] Administration Trazodone HCl 25 mg 09/25/20 19:19 10/08/20 21:02 Trazodone Hcl 25 Mg Halftab PO 25 mg BEDTIME PRN Administration Insomnia Labs CBC & Chem 7: 09/27/20 05:26 10/12/20 06:46 Microbiology Microbiology Results: Microbiology 09/21/20 Unknown Urine clean catch - Clean Catch Midstream Urine Culture - Final No growth. Assessment and Plan (1) Neurocognitive disorder: Problem details: Start donepezil 5 mg daily Status: Acute (2) Bradycardia: Status: Acute (3) UTI (urinary tract infection): Status: Acute (4) Non-rheumatic aortic stenosis: Status: Acute (5) Atherosclerotic cardiovascular disease: Status: Acute (6) Abnormal ECG: Status: Acute (7) Fall: Status: Acute (8) Elevated troponin: Status: Acute Assessment and Plan: 85-year-old female with a past medical history of hypertension, hyperlipidemia, diabetes, hypothyroidism, CAD with stents presented to the hospital with a chief complaint of fall. Noted to have elevated troponins admitted to the hospital for further management. s/p fall No detail information available surrounding her fall since patient has cognitive impairment and poor historian initial head CT with ? of subacute vs chronic left precentral gyrus infarct,MRI with no evidence of acute or subacute infarct, but mentioned possible NPH,seen by neuro Dr Tomlinson feels less likely NPH, and not good candidate for CHASSIS MECHANIC shunt awaiting guardianship since patient has lack of capacity to make medical decision, seen by Physical therapy and noted to have good functional capacity therefore discharged from physical therapy services, recommend to ambulate patient 3 times a day. CAD/Elevated troponins: No chest discomfort, likely due to hypertension, and elevated creatinine, seen by Cardiology they recommend to treat her as stable coronary artery disease, continue asa, metoprolol and statin Diabetes Elevated blood sugars between 150-300 on insulin sliding scale, started back on home medication metformin and glipizide at home takes glimepiride HTN Elevated blood pressure on hydralazine, amlodipine, and metoprolol dose of hydralazine increased from 25 mg b.i.d. to 50 mg b.i.d. BP remains slightly elevated will change to hydralazine 50 mg t.i.d. for better blood pressure control. Disposition patient wishes to be discharged home but due to incompetency waiting for guardianship, spoke with rn social services patient will have guardianship on October 20.
[2020-10-13 16:41] LABS: Glucose, Whole Blood 65 mg/dL (60-115)
[2020-10-13 20:50] LABS: Glucose, Whole Blood 91 mg/dL (60-115)
[2020-10-13] MEDS: Loperamide HCl 2 MG CAPSULE PO (21:51)
[2020-10-13] MEDS: Atorvastatin Calcium 80 MG TABLET PO (21:51)
[2020-10-14] VITALS (8 sets, daily range): BP systolic 150–188; BP diastolic 70–89; PULSE 60–79; RESP 15–20; TEMP 36.8–37.1; O2SAT 97–99
[2020-10-14] MEDS: 0.9 % Sodium Chloride Flush 3 ML SYRINGE IVFLUSH ×4 (01:31→20:10)
[2020-10-14] MEDS: Levothyroxine Sodium 75 MCG TABLET PO (06:24)
[2020-10-14 07:30] LABS: Glucose, Whole Blood 100 mg/dL (60-115)
[2020-10-14] MEDS: metFORMIN HCl 500 MG TABLET PO ×2 (07:41→17:28)
[2020-10-14] MEDS: Enoxaparin Sodium 40 MG/0.4 ML SYRINGE SUBCUT (07:42)
[2020-10-14] MEDS: amLODIPine Besylate 10 MG TABLET PO (08:43)
[2020-10-14] MEDS: Enalapril Maleate 10 MG TABLET 20 MG PO ×2 (08:43→20:10)
[2020-10-14] MEDS: Aspirin 81 MG TAB.CHEW PO (08:43)
[2020-10-14] MEDS: glipiZIDE XL 5 MG TAB.ER.24 PO (08:43)
[2020-10-14] MEDS: hydrALAZINE HCl 25 MG TABLET 50 MG PO ×3 (08:51→20:06)
[2020-10-14 11:37] LABS: Glucose, Whole Blood 164 mg/dL (60-115)
[2020-10-14] MEDS: Insulin Lispro 100 UNIT/ML 3 ML VIAL SUBCUT (12:26)
--- NOTE | 2020-10-14 13:51 | HO.PM.IMPN ---
Subjective Subjective Date of Service: 10/14/20 Interval History: Patient awake alert resting comfortably, asking to be discharged home and wanting to know about her , sounds very frustrated since no one is providing her information about her , otherwise no other acute issues overnight. ROS General no headache, no dizziness, no fever chills. CVS no chest pain, no palpitation. Respiratory no cough, no shortness of breath Gastrointestinal no nausea, no vomiting, no abdominal pain, Physical Exam Vital Signs: Vital Signs: Last Vital Signs Temp 98.2 F 10/14/20 11:54 Pulse 79 10/14/20 11:54 Resp 20 10/14/20 11:54 BP 188/89 H 10/14/20 11:54 Pulse Ox 98 10/14/20 11:54 Body Mass Index 24.7 General anxious/teary/upset Neck supple no JVD. CVS regular rate rhythm, Respiratory lungs clear to auscultation, no respiratory distress, no wheeze, no rhonchi. Gastrointestinal abdomen soft, nontender, bowel sounds audible Extremities no clubbing, no cyanosis or edema. Neuro nonfocal , speech clear. Psych poor insight Skin no rash Objective Data Current Medications Generic Name Dose Route Start Last Admin Trade Name Freq PRN Reason Stop Dose Admin Acetaminophen 650 mg 09/28/20 11:39 10/03/20 23:35 Acetaminophen 325 Mg Tablet PO 650 mg Q6H PRN Administration PAINFEV Amlodipine Besylate 10 mg 09/21/20 09:00 10/14/20 08:43 Amlodipine Besylate 10 Mg Tablet PO 10 mg DAILY RAGHAVENDRA Administration Protocol Aspirin 81 mg 09/21/20 09:00 10/14/20 08:43 Aspirin 81 Mg Tab.Chew PO 81 mg DAILY RAGHAVENDRA Administration Atorvastatin Calcium 80 mg 10/04/20 21:00 10/13/20 21:51 Atorvastatin Calcium 80 Mg Tablet PO 80 mg BEDTIME RAGHAVENDRA Administration Enalapril Maleate 20 mg 10/05/20 12:00 10/14/20 08:43 Enalapril Maleate 10 Mg Tablet PO 20 mg BID RAGHAVENDRA Administration Enoxaparin Sodium 40 mg 10/07/20 08:00 10/14/20 07:42 Enoxaparin Sodium 40 Mg/0.4 Ml Syringe SUBCUT 40 mg Q24H RAGHAVENDRA Administration Glipizide 5 mg 10/11/20 09:00 10/14/20 08:43 Glipizide Xl 5 Mg Tab.Er.24 PO 5 mg DAILY RAGHAVENDRA Administration Hydralazine HCl 50 mg 10/13/20 15:00 10/14/20 08:51 Hydralazine Hcl 25 Mg Tablet PO 50 mg TID [facility] Administration Protocol Hydroxyzine HCl 25 mg 09/25/20 19:19 10/05/20 21:11 Hydroxyzine Hcl 25 Mg Tablet PO 25 mg Q8H PRN Administration Restlessness Insulin Human Lispro 0 unit 09/21/20 07:30 10/14/20 12:26 Insulin Lispro 100 Unit/Ml 3 Ml Vial SUBCUT 2 unit QIDACHS [facility] Administration Protocol Levothyroxine Sodium 75 mcg 09/21/20 06:30 10/14/20 06:24 Levothyroxine Sodium 75 Mcg Tablet PO 75 mcg DAILY@0630 [facility] Administration Loperamide HCl 2 mg 10/11/20 08:21 10/13/20 21:51 Loperamide Hcl 2 Mg Capsule PO 2 mg Q6H PRN Administration Constipation Metformin HCl 500 mg 10/10/20 17:00 10/14/20 07:41 Metformin Hcl 500 Mg Tablet PO 500 mg BIDWM [facility] Administration Pharmacy Consult 1 each 09/20/20 18:27 Consult Rx Perform Med Rec MISCELLANE ONCE PRN Consult order Sodium Chloride 3 ml 09/21/20 00:00 10/14/20 08:50 0.9 % Sodium Chloride Flush 3 Ml Syringe IVFLUSH 3 ml QSHIFT [facility] Administration Trazodone HCl 25 mg 09/25/20 19:19 10/08/20 21:02 Trazodone Hcl 25 Mg Halftab PO 25 mg BEDTIME PRN Administration Insomnia Labs CBC & Chem 7: 09/27/20 05:26 10/12/20 06:46 Microbiology Microbiology Results: Microbiology 09/21/20 Unknown Urine clean catch - Clean Catch Midstream Urine Culture - Final No growth. Assessment and Plan (1) Bradycardia: Status: Acute (2) UTI (urinary tract infection): Status: Acute (3) Non-rheumatic aortic stenosis: Status: Acute (4) Atherosclerotic cardiovascular disease: Status: Acute (5) Elevated troponin: Status: Acute (6) Abnormal ECG: Status: Acute (7) Fall: Status: Acute Assessment and Plan: 85-year-old female with a past medical history of hypertension, hyperlipidemia, diabetes, hypothyroidism, CAD with stents presented to the hospital with a chief complaint of fall. Noted to have elevated troponins admitted to the hospital for further management. s/p fall No episode of recurrent fall since admit, using walker for ambulation. No detail information available surrounding her fall since patient has cognitive impairment and poor historian initial head CT with ? of subacute vs chronic left precentral gyrus infarct,MRI with no evidence of acute or subacute infarct, but mentioned possible NPH,seen by neuro Dr Tomlinson feels less likely NPH, and not good candidate for INSPECTOR HAND[employer]AG FRAMES shunt awaiting guardianship since patient has lack of capacity to make medical decision, seen by Physical therapy and noted to have good functional capacity therefore discharged from physical therapy services, recommend to ambulate patient 3 times a day. Patient was informed about her spouse passing this morning patient became teary, emotional, support provided, social science analyst will provide more information regarding services , will continue supportive care, will add Ativan for anxiety. CAD/Elevated troponins: No chest discomfort, likely due to hypertension, and elevated creatinine, seen by Cardiology they recommend to treat her as stable coronary artery disease, continue asa, metoprolol and statin Diabetes Elevated blood sugars between 150-300 on insulin sliding scale, started back on home medication metformin and glipizide at home takes glimepiride HTN Elevated blood pressure on hydralazine, amlodipine, and metoprolol dose of hydralazine increased from 25 mg b.i.d. to 50 mg t.i.d. with some improvement in blood pressure Will continue to monitor blood pressure on current medication. Elevated BP likely due to stress/anxiety. Disposition patient wishes to be discharged home but due to incompetency waiting for guardianship, spoke with social science analyst patient will have guardianship on October 20.
[2020-10-14 16:29] LABS: Glucose, Whole Blood 97 mg/dL (60-115)
[2020-10-14] MEDS: Atorvastatin Calcium 80 MG TABLET PO (20:06)
[2020-10-14 20:16] LABS: Glucose, Whole Blood 141 mg/dL (60-115)
[2020-10-15] VITALS (8 sets, daily range): BP systolic 119–177; BP diastolic 54–80; PULSE 54–65; RESP 18–20; TEMP 36.6–36.8; O2SAT 96–100
[2020-10-15] MEDS: Levothyroxine Sodium 75 MCG TABLET PO (06:28)
[2020-10-15 07:18] LABS: Glucose, Whole Blood 82 mg/dL (60-115)
--- NOTE | 2020-10-15 09:15 | HO.PM.IMPN ---
Subjective Subjective Date of Service: 10/15/20 Interval History: Patient demanding to leave hospital on Friday to arrange for her 's burial , otherwise offers no acute complaints, no issues overnight. hospice superintendent no headache, no dizziness CVS no chest pain, no palpitation. Respiratory no cough no shortness of breath. Physical Exam Vital Signs: Vital Signs: Last Vital Signs Temp 98.1 F 10/15/20 07:34 Pulse 65 10/15/20 07:34 Resp 18 10/15/20 07:34 BP 152/80 H 10/15/20 07:34 Pulse Ox 98 10/15/20 07:34 Body Mass Index 24.7 General no distress, angry, forgetful Neck supple no JVD. CVS regular rate rhythm, Respiratory lungs clear to auscultation, no respiratory distress, no wheeze, no rhonchi. Gastrointestinal abdomen soft, nontender, bowel sounds audible Extremities no edema. Neuro nonfocal , speech clear. Psych poor insight Skin no rash Objective Data Current Medications Generic Name Dose Route Start Last Admin Trade Name Sachaq PRN Reason Stop Dose Admin Acetaminophen 650 mg 09/28/20 11:39 10/03/20 23:35 Acetaminophen 325 Mg Tablet PO 650 mg Q6H PRN Administration PAINFEV Amlodipine Besylate 10 mg 09/21/20 09:00 10/14/20 08:43 Amlodipine Besylate 10 Mg Tablet PO 10 mg DAILY RAGHAVENDRA Administration Protocol Aspirin 81 mg 09/21/20 09:00 10/14/20 08:43 Aspirin 81 Mg Tab.Chew PO 81 mg DAILY RAGHAVENDRA Administration Atorvastatin Calcium 80 mg 10/04/20 21:00 10/14/20 20:06 Atorvastatin Calcium 80 Mg Tablet PO 80 mg BEDTIME RAGHAVENDRA Administration Enalapril Maleate 20 mg 10/05/20 12:00 10/14/20 20:10 Enalapril Maleate 10 Mg Tablet PO 20 mg BID RAGHAVENDRA Administration Enoxaparin Sodium 40 mg 10/07/20 08:00 10/14/20 07:42 Enoxaparin Sodium 40 Mg/0.4 Ml Syringe SUBCUT 40 mg Q24H RAGHAVENDRA Administration Glipizide 5 mg 10/11/20 09:00 10/14/20 08:43 Glipizide Xl 5 Mg Tab.Er.24 PO 5 mg DAILY RAGHAVENDRA Administration Hydralazine HCl 50 mg 10/13/20 15:00 10/14/20 20:06 Hydralazine Hcl 25 Mg Tablet PO 50 mg TID [facility] Administration Protocol Hydroxyzine HCl 25 mg 09/25/20 19:19 10/05/20 21:11 Hydroxyzine Hcl 25 Mg Tablet PO 25 mg Q8H PRN Administration Restlessness Insulin Human Lispro 0 unit 09/21/20 07:30 10/15/20 08:39 Insulin Lispro 100 Unit/Ml 3 Ml Vial SUBCUT Not Given QIDACHS [facility] Protocol Levothyroxine Sodium 75 mcg 09/21/20 06:30 10/15/20 06:28 Levothyroxine Sodium 75 Mcg Tablet PO 75 mcg DAILY@0630 [facility] Administration Loperamide HCl 2 mg 10/11/20 08:21 10/13/20 21:51 Loperamide Hcl 2 Mg Capsule PO 2 mg Q6H PRN Administration Constipation Lorazepam 0.5 mg 10/14/20 14:05 Lorazepam 0.5 Mg Tablet PO Q8H PRN Anxiety Metformin HCl 500 mg 10/10/20 17:00 10/14/20 17:28 Metformin Hcl 500 Mg Tablet PO 500 mg BIDWM [facility] Administration Pharmacy Consult 1 each 09/20/20 18:27 Consult Rx Perform Med Rec MISCELLANE ONCE PRN Consult order Sodium Chloride 3 ml 09/21/20 00:00 10/14/20 20:10 0.9 % Sodium Chloride Flush 3 Ml Syringe IVFLUSH 3 ml QSHIFT [facility] Administration Trazodone HCl 25 mg 09/25/20 19:19 10/08/20 21:02 Trazodone Hcl 25 Mg Halftab PO 25 mg BEDTIME PRN Administration Insomnia Labs CBC & Chem 7: 09/27/20 05:26 10/12/20 06:46 Microbiology Microbiology Results: Microbiology 09/21/20 Unknown Urine clean catch - Clean Catch Midstream Urine Culture - Final No growth. Assessment and Plan (1) Neurocognitive disorder: Problem details: Start donepezil 5 mg daily Status: Acute (2) Bradycardia: Status: Acute (3) Non-rheumatic aortic stenosis: Status: Acute (4) Fall: Status: Acute (5) Abnormal ECG: Status: Acute Assessment and Plan: 85-year-old female with a past medical history of hypertension, hyperlipidemia, diabetes, hypothyroidism, CAD with stents presented to the hospital with a chief complaint of fall. Noted to have elevated troponins admitted to the hospital for further management. s/p fall No episode of recurrent fall since admit, using walker for ambulation,No detail information available surrounding her fall at home since patient has cognitive impairment and poor historian initial head CT with ? of subacute vs chronic left precentral gyrus infarct,MRI with no evidence of acute or subacute infarct, but mentioned possible NPH,seen by neuro Dr Tomlinson feels less likely NPH, and not good candidate for AUTO FLEET MAINTENANCE MANAGER shunt awaiting guardianship since patient has lack of capacity to make medical decision, seen by Physical therapy and noted to have good functional capacity therefore discharged from physical therapy services, Encourage ambulation. Acute grief Patient grieving over the of her , support provided, continue Ativan for anxiety. CAD/Elevated troponins: Was likely due to hypertension and elevated creatinine, seen by Cardiology they recommend to treat her as stable coronary artery disease, continue asa, metoprolol and statin Diabetes, blood sugars stable continue insulin sliding scale and home medication metformin and glipizide (takes glimepiride at home) HTN blood pressure better controlled on current dose of hydralazine 50 mg t.i.d., metoprolol and amlodipine, at home was on hydralazine 25 b.i.d. Disposition patient wishes to be discharged home but due to incompetency waiting for guardianship, spoke with director of social services patient will have guardianship on October 20.
[2020-10-15] MEDS: amLODIPine Besylate 10 MG TABLET PO (09:22)
[2020-10-15] MEDS: hydrALAZINE HCl 25 MG TABLET 50 MG PO ×3 (09:22→20:29)
[2020-10-15] MEDS: glipiZIDE XL 5 MG TAB.ER.24 PO (09:22)
[2020-10-15] MEDS: Aspirin 81 MG TAB.CHEW PO (09:22)
[2020-10-15] MEDS: Enoxaparin Sodium 40 MG/0.4 ML SYRINGE SUBCUT (09:23)
[2020-10-15] MEDS: Enalapril Maleate 10 MG TABLET 20 MG PO ×2 (09:23→20:30)
[2020-10-15] MEDS: metFORMIN HCl 500 MG TABLET PO ×2 (09:23→16:44)
[2020-10-15] MEDS: 0.9 % Sodium Chloride Flush 3 ML SYRINGE IVFLUSH ×2 (09:23→16:44)
[2020-10-15 11:30] LABS: Glucose, Whole Blood 289 mg/dL (60-115)
[2020-10-15] MEDS: Insulin Lispro 100 UNIT/ML 3 ML VIAL SUBCUT (12:18)
--- NOTE | 2020-10-15 15:09 | MHC.CM.PN ---
CM met with pt yesterday and again today. Pt learned of her husbands passing yesterday. Pt reports being concerned as she does not know where her husbands body is. She reports he was a transit driver for many years and he cannot be cremated. Pt reports she needs to have a service for him and she wants to have him buried [facility] in [place]. Pt reports nether she nor her had any advanced care documents or pre-arranged plans. She states she never wanted to think about it . Pt reports she wants to find out if there are two spots available in that cemetery though because she would be able to walk to it in the mornings to say her prayers with him and then when she is ready, she wants to be buried next to him. Pt is aware she has a guardianship hearing on 10/20 and asks if she will be able to leave after that, Pt reports she knows she has things that need to be fixed in her home before she can return but her friend is offering to let her stay there while she works on it. Pt reports she just needs to get a registered pharmacist to fix the toilet and the shower and then she would be able to return. Pt reports she has a little money saved and she could do this. Pt reports she was trying to contact her son Carlos as well. She states she does not have contact with her other 3 sons but Meño was at her house not long before this event. She reports he lives in [place] with his , Dagmar. Guardianship hearing is scheduled for October 20, 2020. Pts DCP is still TBD however she will likely require a memory care unit.
[2020-10-15 16:28] LABS: Glucose, Whole Blood 73 mg/dL (60-115)
[2020-10-15 20:18] LABS: Glucose, Whole Blood 115 mg/dL (60-115)
[2020-10-15] MEDS: Atorvastatin Calcium 80 MG TABLET PO (20:30)
[2020-10-16] VITALS (10 sets, daily range): BP systolic 142–169; BP diastolic 61–79; PULSE 54–71; RESP 17–18; TEMP 36.1–36.9; O2SAT 96–100
[2020-10-16] MEDS: 0.9 % Sodium Chloride Flush 3 ML SYRINGE IVFLUSH ×4 (01:05→23:31)
[2020-10-16] MEDS: Levothyroxine Sodium 75 MCG TABLET PO (05:59)
[2020-10-16 07:11] LABS: Glucose, Whole Blood 69 mg/dL (60-115)
[2020-10-16] MEDS: Enoxaparin Sodium 40 MG/0.4 ML SYRINGE SUBCUT (08:01)
[2020-10-16] MEDS: metFORMIN HCl 500 MG TABLET PO ×2 (08:02→17:01)
[2020-10-16] MEDS: Aspirin 81 MG TAB.CHEW PO (08:02)
[2020-10-16] MEDS: hydrALAZINE HCl 25 MG TABLET 50 MG PO ×3 (08:02→20:08)
[2020-10-16] MEDS: Enalapril Maleate 10 MG TABLET 20 MG PO ×2 (08:03→20:08)
[2020-10-16] MEDS: amLODIPine Besylate 10 MG TABLET PO (08:03)
[2020-10-16] MEDS: glipiZIDE XL 5 MG TAB.ER.24 PO (08:03)
[2020-10-16 11:07] LABS: Glucose, Whole Blood 189 mg/dL (60-115)
[2020-10-16] MEDS: Insulin Lispro 100 UNIT/ML 3 ML VIAL SUBCUT (11:43)
--- NOTE | 2020-10-16 12:16 | P.PNIM_ITS ---
Subjective Subjective Date of Service: 10/16/20 Interval History: No acute issues overnight patient wants to go home to make arrangements for her 's , denies pain, no fever chills. 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 Respiratory no cough ,no shortness of breath. Physical Exam Vital Signs: Vital Signs: Last Vital Signs Temp 98.4 F 10/16/20 11:14 Pulse 58 10/16/20 11:14 Resp 18 10/16/20 11:14 BP 152/64 H 10/16/20 11:14 Pulse Ox 96 10/16/20 11:14 Body Mass Index 24.7 General no distress, angry, forgetful Neck supple no JVD. CVS regular rate rhythm, Respiratory lungs clear to auscultation, no respiratory distress, no wheeze, no rhonchi. Gastrointestinal abdomen soft, nontender, bowel sounds audible Extremities no edema. Neuro nonfocal , speech clear. Psych poor insight Skin no rash Objective Data Current Medications Generic Name Dose Route Start Last Admin Trade Name Sachaq PRN Reason Stop Dose Admin Acetaminophen 650 mg 09/28/20 11:39 10/03/20 23:35 Acetaminophen 325 Mg Tablet PO 650 mg Q6H PRN Administration PAINFEV Amlodipine Besylate 10 mg 09/21/20 09:00 10/16/20 08:03 Amlodipine Besylate 10 Mg Tablet PO 10 mg DAILY RAGHAVENDRA Administration Protocol Aspirin 81 mg 09/21/20 09:00 10/16/20 08:02 Aspirin 81 Mg Tab.Chew PO 81 mg DAILY RAGHAVENDRA Administration Atorvastatin Calcium 80 mg 10/04/20 21:00 10/15/20 20:30 Atorvastatin Calcium 80 Mg Tablet PO 80 mg BEDTIME RAGHAVENDRA Administration Enalapril Maleate 20 mg 10/05/20 12:00 10/16/20 08:03 Enalapril Maleate 10 Mg Tablet PO 20 mg BID RAGHAVENDRA Administration Enoxaparin Sodium 40 mg 10/07/20 08:00 10/16/20 08:01 Enoxaparin Sodium 40 Mg/0.4 Ml Syringe SUBCUT 40 mg Q24H RAGHAVENDRA Administration Glipizide 5 mg 10/11/20 09:00 10/16/20 08:03 Glipizide Xl 5 Mg Tab.Er.24 PO 5 mg DAILY RAGHAVENDRA Administration Hydralazine HCl 50 mg 10/13/20 15:00 10/16/20 08:02 Hydralazine Hcl 25 Mg Tablet PO 50 mg TID [facility] Administration Protocol Hydroxyzine HCl 25 mg 09/25/20 19:19 10/05/20 21:11 Hydroxyzine Hcl 25 Mg Tablet PO 25 mg Q8H PRN Administration Restlessness Insulin Human Lispro 0 unit 09/21/20 07:30 10/16/20 11:43 Insulin Lispro 100 Unit/Ml 3 Ml Vial SUBCUT 2 unit QIDACHS [facility] Administration Protocol Levothyroxine Sodium 75 mcg 09/21/20 06:30 10/16/20 05:59 Levothyroxine Sodium 75 Mcg Tablet PO 75 mcg DAILY@0630 [facility] Administration Loperamide HCl 2 mg 10/11/20 08:21 10/13/20 21:51 Loperamide Hcl 2 Mg Capsule PO 2 mg Q6H PRN Administration Constipation Lorazepam 0.5 mg 10/14/20 14:05 Lorazepam 0.5 Mg Tablet PO Q8H PRN Anxiety Metformin HCl 500 mg 10/10/20 17:00 10/16/20 08:02 Metformin Hcl 500 Mg Tablet PO 500 mg BIDWM [facility] Administration Pharmacy Consult 1 each 09/20/20 18:27 Consult Rx Perform Med Rec MISCELLANE ONCE PRN Consult order Sodium Chloride 3 ml 09/21/20 00:00 10/16/20 08:01 0.9 % Sodium Chloride Flush 3 Ml Syringe IVFLUSH 3 ml QSHIFT [facility] Administration Trazodone HCl 25 mg 09/25/20 19:19 10/08/20 21:02 Trazodone Hcl 25 Mg Halftab PO 25 mg BEDTIME PRN Administration Insomnia Labs CBC & Chem 7: 09/27/20 05:26 10/12/20 06:46 Microbiology Microbiology Results: Microbiology 09/21/20 Unknown Urine clean catch - Clean Catch Midstream Urine Culture - Final No growth. Assessment and Plan (1) Communicating hydrocephalus: Problem details: ventricles are moderately enlarged, slightly disproportionate to cortical atrophy which may suggest communicating hydrocephalus. I do not believe this is the case and feel she is a poor shunt candidate. Status: Acute (2) Neurocognitive disorder: Problem details: Start donepezil 5 mg daily Status: Acute (3) Bradycardia: Status: Acute (4) UTI (urinary tract infection): Status: Acute (5) Non-rheumatic aortic stenosis: Status: Acute (6) Atherosclerotic cardiovascular disease: Status: Acute (7) Elevated troponin: Status: Acute (8) Abnormal ECG: Status: Acute (9) Fall: Status: Acute Assessment and Plan: 85-year-old female with a past medical history of hypertension, hyperlipidemia, diabetes, hypothyroidism, CAD with stents presented to the hospital with a chief complaint of fall. Noted to have elevated troponins admitted to the hospital for further management. s/p fall No episode of recurrent fall since admit, using walker for ambulation,No detail information available surrounding her fall at home since patient has cognitive impairment and poor historian initial head CT with ? of subacute vs chronic left precentral gyrus infarct,MRI with no evidence of acute or subacute infarct, but mentioned possible NPH,seen by neuro Dr Tomlinson feels less likely NPH, and not good candidate for SHIPPING CLERK CRATING shunt awaiting guardianship since patient has lack of capacity to make medical decision, seen by Physical therapy and noted to have good functional capacity therefore discharged from physical therapy services, Encourage ambulation. Acute grief Patient grieving over the of her , wants to go home to make arrangements for burial, support provided, continue Ativan for anxiety. CAD/Elevated troponins: Was likely due to hypertension and elevated creatinine, seen by Cardiology they recommend to treat her as stable coronary artery disease, continue asa, metoprolol and statin Diabetes, blood sugars stable continue insulin sliding scale and home medication metformin and glipizide (takes glimepiride at home) HTN blood pressure better controlled on current dose of hydralazine 50 mg t.i.d., metoprolol and amlodipine, at home was on hydralazine 25 b.i.d. is still noted to have intermittent high blood pressure readings likely due to anxiety. Disposition patient wishes to be discharged home but due to incompetency waiting for guardianship, spoke with health and social care teacher , court date for guardianship on October 20.
--- NOTE | 2020-10-16 15:02 | MHC.CM.PN ---
CM met with pt to deliver court documents. Pt reported being upset by the documents and the prospect of going to court. Pt reports she has been hard working her entire life and took care of her children and then her . She reports she knows that when they came into her home it was a mess she states it got away from her. Pt reports she has a lot of things, she is not dirty. Pt reports she knows she needs to have a manufacturing engineering director go in and fix the toilet and shower. She reports the whole bathroom could be redone but it is not necessary and she cannot afford it at this time especially since she will only have her SS now that her has passed. Pt again reports being concerned about taking care of her husbands body. She reports he cannot be cremated. Pt reports she wants to go home so she can take care of her home and her husbands arrangements. Pt asked for a notebook which CM provided. Pt reports she will call her son, Meño and see if he will be able to help her with the court hearing and repairing the home. She reports she plans to write down the things she wants to tell her surgical scrub tech before the hearing on Friday including, she is a hard worker, healthy, she has a good support system and she plans to fix her home. Pt is aware t/w will be off the next two days and will return on . CM will meet with pt again that day. Guardianship hearing scheduled for Friday10/20/20.
[2020-10-16 16:28] LABS: Glucose, Whole Blood 84 mg/dL (60-115)
[2020-10-16] MEDS: Atorvastatin Calcium 80 MG TABLET PO (20:07)
[2020-10-16 20:21] LABS: Glucose, Whole Blood 87 mg/dL (60-115)
[2020-10-17] VITALS (11 sets, daily range): BP systolic 140–169; BP diastolic 62–77; PULSE 52–76; RESP 18; TEMP 36.3–36.6; O2SAT 94–99
[2020-10-17] MEDS: Levothyroxine Sodium 75 MCG TABLET PO (06:25)
[2020-10-17 07:10] LABS: Glucose, Whole Blood 78 mg/dL (60-115)
[2020-10-17] MEDS: metFORMIN HCl 500 MG TABLET PO ×2 (07:49→16:55)
[2020-10-17] MEDS: Enoxaparin Sodium 40 MG/0.4 ML SYRINGE SUBCUT (07:50)
[2020-10-17] MEDS: 0.9 % Sodium Chloride Flush 3 ML SYRINGE IVFLUSH ×3 (07:51→22:11)
[2020-10-17] MEDS: glipiZIDE XL 5 MG TAB.ER.24 PO (08:00)
[2020-10-17] MEDS: Aspirin 81 MG TAB.CHEW PO (08:00)
[2020-10-17] MEDS: amLODIPine Besylate 10 MG TABLET PO (08:01)
[2020-10-17] MEDS: hydrALAZINE HCl 25 MG TABLET 50 MG PO ×3 (08:01→22:07)
[2020-10-17] MEDS: Enalapril Maleate 10 MG TABLET 20 MG PO ×2 (08:01→22:08)
--- NOTE | 2020-10-17 10:15 | P.PNIM_ITS ---
Subjective Subjective Date of Service: 10/17/20 Interval History: wants to go home Cardiovascular Cardiovascular: Reports no additional cardiovascular complaints Respiratory Respiratory: Reports no additional respiratory complaints Physical Exam Vital Signs: Vital Signs: Last Vital Signs Temp 98 F 10/17/20 07:39 Pulse 60 10/17/20 08:01 Resp 18 10/17/20 07:39 BP 140/67 H 10/17/20 08:01 Pulse Ox 98 10/17/20 07:39 Body Mass Index 24.7 General: AO X 3, no acute distress Resp: CTA bilateral CVS: S1,S2,RRR GI: soft, non tender, non distended Neuro: motor grossly intact Psych: impaired insight Objective Data Current Medications Generic Name Dose Route Start Last Admin Trade Name Freq PRN Reason Stop Dose Admin Acetaminophen 650 mg 09/28/20 11:39 10/03/20 23:35 Acetaminophen 325 Mg Tablet PO 650 mg Q6H PRN Administration PAINFEV Amlodipine Besylate 10 mg 09/21/20 09:00 10/17/20 08:01 Amlodipine Besylate 10 Mg Tablet PO 10 mg DAILY RAGHAVENDRA Administration Protocol Aspirin 81 mg 09/21/20 09:00 10/17/20 08:00 Aspirin 81 Mg Tab.Chew PO 81 mg DAILY RAGHAVENDRA Administration Atorvastatin Calcium 80 mg 10/04/20 21:00 10/16/20 20:07 Atorvastatin Calcium 80 Mg Tablet PO 80 mg BEDTIME RAGHAVENDRA Administration Enalapril Maleate 20 mg 10/05/20 12:00 10/17/20 08:01 Enalapril Maleate 10 Mg Tablet PO 20 mg BID RAGHAVENDRA Administration Enoxaparin Sodium 40 mg 10/07/20 08:00 10/17/20 07:50 Enoxaparin Sodium 40 Mg/0.4 Ml Syringe SUBCUT 40 mg Q24H RAGHAVENDRA Administration Glipizide 5 mg 10/11/20 09:00 10/17/20 08:00 Glipizide Xl 5 Mg Tab.Er.24 PO 5 mg DAILY RAGHAVENDRA Administration Hydralazine HCl 50 mg 10/13/20 15:00 10/17/20 08:01 Hydralazine Hcl 25 Mg Tablet PO 50 mg TID RAGHAVENDRA Administration Protocol Hydroxyzine HCl 25 mg 09/25/20 19:19 10/05/20 21:11 Hydroxyzine Hcl 25 Mg Tablet PO 25 mg Q8H PRN Administration Restlessness Insulin Human Lispro 0 unit 09/21/20 07:30 10/17/20 07:14 Insulin Lispro 100 Unit/Ml 3 Ml Vial SUBCUT Not Given QIDACHS [facility] Protocol Levothyroxine Sodium 75 mcg 09/21/20 06:30 10/17/20 06:25 Levothyroxine Sodium 75 Mcg Tablet PO 75 mcg DAILY@0630 [facility] Administration Loperamide HCl 2 mg 10/11/20 08:21 10/13/20 21:51 Loperamide Hcl 2 Mg Capsule PO 2 mg Q6H PRN Administration Constipation Lorazepam 0.5 mg 10/14/20 14:05 Lorazepam 0.5 Mg Tablet PO Q8H PRN Anxiety Metformin HCl 500 mg 10/10/20 17:00 10/17/20 07:49 Metformin Hcl 500 Mg Tablet PO 500 mg BIDWM [facility] Administration Pharmacy Consult 1 each 09/20/20 18:27 Consult Rx Perform Med Rec MISCELLANE ONCE PRN Consult order Sodium Chloride 3 ml 09/21/20 00:00 10/17/20 07:51 0.9 % Sodium Chloride Flush 3 Ml Syringe IVFLUSH 3 ml QSHIFT [facility] Administration Trazodone HCl 25 mg 09/25/20 19:19 10/08/20 21:02 Trazodone Hcl 25 Mg Halftab PO 25 mg BEDTIME PRN Administration Insomnia Labs CBC & Chem 7: 09/27/20 05:26 10/12/20 06:46 Microbiology Microbiology Results: Microbiology 09/21/20 Unknown Urine clean catch - Clean Catch Midstream Urine Culture - Final No growth. Assessment and Plan (1) Communicating hydrocephalus: Problem details: ventricles are moderately enlarged, slightly disproportionate to cortical atrophy which may suggest communicating hydrocephalus. I do not believe this is the case and feel she is a poor shunt candidate. Status: Acute (2) Neurocognitive disorder: Problem details: Start donepezil 5 mg daily Status: Acute (3) Bradycardia: Status: Acute (4) UTI (urinary tract infection): Status: Acute (5) Non-rheumatic aortic stenosis: Status: Acute (6) Atherosclerotic cardiovascular disease: Status: Acute (7) Elevated troponin: Status: Acute (8) Abnormal ECG: Status: Acute (9) Fall: Status: Acute Assessment and Plan: 85-year-old female with a past medical history of hypertension, hyperlipidemia, diabetes, hypothyroidism, CAD with stents presented to the hospital with a chief complaint of fall. Noted to have elevated troponins admitted to the hospital for further management. stable, no changes overnight s/p fall No episode of recurrent fall since admit, using walker for ambulation,No detail information available surrounding her fall at home since patient has cognitive impairment and poor historian initial head CT with ? of subacute vs chronic left precentral gyrus infarct,MRI with no evidence of acute or subacute infarct, but mentioned possible NPH,seen by neuro Dr Tomlinson feels less likely NPH, and not good candidate for INFORMATICS SCIENTIST shunt awaiting guardianship since patient has lack of capacity to make medical decision, seen by Physical therapy and noted to have good functional capacity therefore discharged from physical therapy services, Encourage ambulation. Acute grief Patient grieving over the of her , wants to go home to make arrangements for burial, support provided, continue Ativan for anxiety. CAD/Elevated troponins: Was likely due to hypertension and elevated creatinine, seen by Cardiology they recommend to treat her as stable coronary artery disease, continue asa, metoprolol and statin Diabetes, blood sugars stable continue insulin sliding scale and home medication metformin and glipizide (takes glimepiride at home) HTN blood pressure better controlled on current dose of hydralazine 50 mg t.i.d., metoprolol and amlodipine, at home was on hydralazine 25 b.i.d. is still noted to have intermittent high blood pressure readings likely due to anxiety. Disposition patient wishes to be discharged home but due to incompetency waiting for guardianship, spoke with social services manager , court date for guardianship on October 20.
[2020-10-17 11:03] LABS: Glucose, Whole Blood 106 mg/dL (60-115)
[2020-10-17 16:09] LABS: Glucose, Whole Blood 76 mg/dL (60-115)
[2020-10-17 21:09] LABS: Glucose, Whole Blood 84 mg/dL (60-115)
[2020-10-17] MEDS: Atorvastatin Calcium 80 MG TABLET PO (22:07)
[2020-10-18] VITALS (8 sets, daily range): BP systolic 140–166; BP diastolic 59–81; PULSE 62–78; RESP 16–19; TEMP 36.4–37.1; O2SAT 97–99
[2020-10-18] MEDS: Levothyroxine Sodium 75 MCG TABLET PO (06:01)
[2020-10-18 07:06] LABS: Glucose, Whole Blood 81 mg/dL (60-115)
[2020-10-18 08:57] LABS: Creatinine Clr Calc Pharmacy 34.4; Estimated Glomerular Filt Rate 47
[2020-10-18] MEDS: Enalapril Maleate 10 MG TABLET 20 MG PO ×2 (09:16→21:03)
[2020-10-18] MEDS: Aspirin 81 MG TAB.CHEW PO (09:16)
[2020-10-18] MEDS: amLODIPine Besylate 10 MG TABLET PO (09:16)
[2020-10-18] MEDS: metFORMIN HCl 500 MG TABLET PO ×2 (09:16→17:58)
[2020-10-18] MEDS: Enoxaparin Sodium 40 MG/0.4 ML SYRINGE SUBCUT (09:16)
[2020-10-18] MEDS: glipiZIDE XL 5 MG TAB.ER.24 PO (09:16)
[2020-10-18] MEDS: hydrALAZINE HCl 25 MG TABLET 50 MG PO ×3 (09:16→21:04)
[2020-10-18] MEDS: 0.9 % Sodium Chloride Flush 3 ML SYRINGE IVFLUSH ×3 (09:17→23:35)
--- NOTE | 2020-10-18 11:05 | HO.PM.IMPN ---
Subjective Subjective Date of Service: 10/18/20 Interval History: wants to go home Cardiovascular Cardiovascular: Reports no additional cardiovascular complaints Respiratory Respiratory: Reports no additional respiratory complaints Physical Exam Vital Signs: Vital Signs: Last Vital Signs Temp 97.6 F 10/18/20 07:48 Pulse 62 10/18/20 07:48 Resp 17 10/18/20 07:48 BP 151/63 H 10/18/20 07:48 Pulse Ox 99 10/18/20 07:48 Body Mass Index 24.7 General: AO X 3, no acute distress Resp: CTA bilateral CVS: S1,S2,RRR GI: soft, non tender, non distended Neuro: motor grossly intact Psych: impaired insight Objective Data Current Medications Generic Name Dose Route Start Last Admin Trade Name Freq PRN Reason Stop Dose Admin Acetaminophen 650 mg 09/28/20 11:39 10/03/20 23:35 Acetaminophen 325 Mg Tablet PO 650 mg Q6H PRN Administration PAINFEV Amlodipine Besylate 10 mg 09/21/20 09:00 10/18/20 09:16 Amlodipine Besylate 10 Mg Tablet PO 10 mg DAILY RAGHAVENDRA Administration Protocol Aspirin 81 mg 09/21/20 09:00 10/18/20 09:16 Aspirin 81 Mg Tab.Chew PO 81 mg DAILY RAGHAVENDRA Administration Atorvastatin Calcium 80 mg 10/04/20 21:00 10/17/20 22:07 Atorvastatin Calcium 80 Mg Tablet PO 80 mg BEDTIME RAGHAVENDRA Administration Enalapril Maleate 20 mg 10/05/20 12:00 10/18/20 09:16 Enalapril Maleate 10 Mg Tablet PO 20 mg BID RAGHAVENDRA Administration Enoxaparin Sodium 40 mg 10/07/20 08:00 10/18/20 09:16 Enoxaparin Sodium 40 Mg/0.4 Ml Syringe SUBCUT 40 mg Q24H RAGHAVENDRA Administration Glipizide 5 mg 10/11/20 09:00 10/18/20 09:16 Glipizide Xl 5 Mg Tab.Er.24 PO 5 mg DAILY RAGHAVENDRA Administration Hydralazine HCl 50 mg 10/13/20 15:00 10/18/20 09:16 Hydralazine Hcl 25 Mg Tablet PO 50 mg TID RAGHAVENDRA Administration Protocol Hydroxyzine HCl 25 mg 09/25/20 19:19 10/05/20 21:11 Hydroxyzine Hcl 25 Mg Tablet PO 25 mg Q8H PRN Administration Restlessness Insulin Human Lispro 0 unit 09/21/20 07:30 10/18/20 09:17 Insulin Lispro 100 Unit/Ml 3 Ml Vial SUBCUT Not Given QIDACHS [facility] Protocol Levothyroxine Sodium 75 mcg 09/21/20 06:30 10/18/20 06:01 Levothyroxine Sodium 75 Mcg Tablet PO 75 mcg DAILY@0630 [facility] Administration Loperamide HCl 2 mg 10/11/20 08:21 10/13/20 21:51 Loperamide Hcl 2 Mg Capsule PO 2 mg Q6H PRN Administration Constipation Lorazepam 0.5 mg 10/14/20 14:05 Lorazepam 0.5 Mg Tablet PO Q8H PRN Anxiety Metformin HCl 500 mg 10/10/20 17:00 10/18/20 09:16 Metformin Hcl 500 Mg Tablet PO 500 mg BIDWM [facility] Administration Pharmacy Consult 1 each 09/20/20 18:27 Consult Rx Perform Med Rec MISCELLANE ONCE PRN Consult order Sodium Chloride 3 ml 09/21/20 00:00 10/18/20 09:17 0.9 % Sodium Chloride Flush 3 Ml Syringe IVFLUSH 3 ml QSHIFT [facility] Administration Trazodone HCl 25 mg 09/25/20 19:19 10/08/20 21:02 Trazodone Hcl 25 Mg Halftab PO 25 mg BEDTIME PRN Administration Insomnia Labs CBC & Chem 7: 09/27/20 05:26 10/18/20 08:11 Microbiology Microbiology Results: Microbiology 09/21/20 Unknown Urine clean catch - Clean Catch Midstream Urine Culture - Final No growth. Assessment and Plan (1) Communicating hydrocephalus: Problem details: ventricles are moderately enlarged, slightly disproportionate to cortical atrophy which may suggest communicating hydrocephalus. I do not believe this is the case and feel she is a poor shunt candidate. Status: Acute (2) Neurocognitive disorder: Problem details: Start donepezil 5 mg daily Status: Acute (3) Bradycardia: Status: Acute (4) UTI (urinary tract infection): Status: Acute (5) Non-rheumatic aortic stenosis: Status: Acute (6) Atherosclerotic cardiovascular disease: Status: Acute (7) Elevated troponin: Status: Acute (8) Abnormal ECG: Status: Acute (9) Fall: Status: Acute Assessment and Plan: 85-year-old female with a past medical history of hypertension, hyperlipidemia, diabetes, hypothyroidism, CAD with stents presented to the hospital with a chief complaint of fall. Noted to have elevated troponins admitted to the hospital for further management. stable, no changes overnight, awaiting court date s/p fall No episode of recurrent fall since admit, using walker for ambulation,No detail information available surrounding her fall at home since patient has cognitive impairment and poor historian initial head CT with ? of subacute vs chronic left precentral gyrus infarct,MRI with no evidence of acute or subacute infarct, but mentioned possible NPH,seen by neuro Dr Tomlinson feels less likely NPH, and not good candidate for PASTRY WRAPPER shunt awaiting guardianship since patient has lack of capacity to make medical decision, seen by Physical therapy and noted to have good functional capacity therefore discharged from physical therapy services, Encourage ambulation. Acute grief Patient grieving over the of her , wants to go home to make arrangements for burial, support provided, continue Ativan for anxiety. CAD/Elevated troponins: Was likely due to hypertension and elevated creatinine, seen by Cardiology they recommend to treat her as stable coronary artery disease, continue asa, metoprolol and statin Diabetes, blood sugars stable continue insulin sliding scale and home medication metformin and glipizide (takes glimepiride at home) HTN blood pressure better controlled on current dose of hydralazine 50 mg t.i.d., metoprolol and amlodipine, at home was on hydralazine 25 b.i.d. is still noted to have intermittent high blood pressure readings likely due to anxiety. Disposition patient wishes to be discharged home but due to incompetency waiting for guardianship, spoke with social service agency director , court date for guardianship on October 20.
[2020-10-18 11:06] LABS: Glucose, Whole Blood 265 mg/dL (60-115)
[2020-10-18] MEDS: Insulin Lispro 100 UNIT/ML 3 ML VIAL SUBCUT (11:48)
--- NOTE | 2020-10-18 12:58 | MHC.CM.PN ---
CM DP note Female 85 dx F[address] A court hearing for guardianship is scheduled for 10/20/20. Documentation of 5 additional Avoidable days. Previously 20 days that were avoidable, were documented.CM will follow. In anticipation of discharge referrals have been sent.
[2020-10-18 16:11] LABS: Glucose, Whole Blood 53 mg/dL (60-115)
[2020-10-18 19:47] LABS: Glucose, Whole Blood 135 mg/dL (60-115)
[2020-10-18] MEDS: Atorvastatin Calcium 80 MG TABLET PO (21:03)
[2020-10-18] MEDS: Loperamide HCl 2 MG CAPSULE PO (23:34)
[2020-10-19] VITALS (9 sets, daily range): BP systolic 141–157; BP diastolic 57–88; PULSE 61–73; RESP 18; TEMP 36.4–36.9; O2SAT 93–99
[2020-10-19] MEDS: Levothyroxine Sodium 75 MCG TABLET PO (05:43)
[2020-10-19 07:08] LABS: Glucose, Whole Blood 71 mg/dL (60-115)
[2020-10-19] MEDS: Aspirin 81 MG TAB.CHEW PO (10:19)
[2020-10-19] MEDS: Enoxaparin Sodium 40 MG/0.4 ML SYRINGE SUBCUT (10:19)
[2020-10-19] MEDS: amLODIPine Besylate 10 MG TABLET PO (10:19)
[2020-10-19] MEDS: Enalapril Maleate 10 MG TABLET 20 MG PO ×2 (10:19→20:39)
[2020-10-19] MEDS: hydrALAZINE HCl 25 MG TABLET 50 MG PO ×3 (10:19→20:40)
[2020-10-19] MEDS: glipiZIDE XL 5 MG TAB.ER.24 PO (10:19)
[2020-10-19] MEDS: metFORMIN HCl 500 MG TABLET PO ×2 (10:20→17:01)
[2020-10-19] MEDS: 0.9 % Sodium Chloride Flush 3 ML SYRINGE IVFLUSH ×3 (10:20→20:40)
--- NOTE | 2020-10-19 11:06 | P.PNIM_ITS ---
Subjective Subjective Date of Service: 10/19/20 Interval History: wants to go home Cardiovascular Cardiovascular: Reports no additional cardiovascular complaints Gastrointestinal Gastrointestinal: Reports no additional gastrointestinal complaints Physical Exam Vital Signs: Vital Signs: Last Vital Signs Temp 97.8 F 10/19/20 07:20 Pulse 61 10/19/20 07:20 Resp 18 10/19/20 07:20 BP 141/65 H 10/19/20 07:20 Pulse Ox 96 10/19/20 07:20 Body Mass Index 24.7 General: AO X 3, no acute distress Resp: CTA bilateral CVS: S1,S2,RRR GI: soft, non tender, non distended Neuro: motor grossly intact Psych: impaired insight Objective Data Current Medications Generic Name Dose Route Start Last Admin Trade Name Freq PRN Reason Stop Dose Admin Acetaminophen 650 mg 09/28/20 11:39 10/03/20 23:35 Acetaminophen 325 Mg Tablet PO 650 mg Q6H PRN Administration PAINFEV Amlodipine Besylate 10 mg 09/21/20 09:00 10/19/20 10:19 Amlodipine Besylate 10 Mg Tablet PO 10 mg DAILY RAGHAVENDRA Administration Protocol Aspirin 81 mg 09/21/20 09:00 10/19/20 10:19 Aspirin 81 Mg Tab.Chew PO 81 mg DAILY RAGHAVENDRA Administration Atorvastatin Calcium 80 mg 10/04/20 21:00 10/18/20 21:03 Atorvastatin Calcium 80 Mg Tablet PO 80 mg BEDTIME RAGHAVENDRA Administration Enalapril Maleate 20 mg 10/05/20 12:00 10/19/20 10:19 Enalapril Maleate 10 Mg Tablet PO 20 mg BID RAGHAVENDRA Administration Enoxaparin Sodium 40 mg 10/07/20 08:00 10/19/20 10:19 Enoxaparin Sodium 40 Mg/0.4 Ml Syringe SUBCUT 40 mg Q24H RAGHAVENDRA Administration Glipizide 5 mg 10/11/20 09:00 10/19/20 10:19 Glipizide Xl 5 Mg Tab.Er.24 PO 5 mg DAILY RAGHAVENDRA Administration Hydralazine HCl 50 mg 10/13/20 15:00 10/19/20 10:19 Hydralazine Hcl 25 Mg Tablet PO 50 mg TID RAGHAVENDRA Administration Protocol Hydroxyzine HCl 25 mg 09/25/20 19:19 10/05/20 21:11 Hydroxyzine Hcl 25 Mg Tablet PO 25 mg Q8H PRN Administration Restlessness Insulin Human Lispro 0 unit 09/21/20 07:30 10/19/20 07:39 Insulin Lispro 100 Unit/Ml 3 Ml Vial SUBCUT Not Given QIDACHS [facility] Protocol Levothyroxine Sodium 75 mcg 09/21/20 06:30 10/19/20 05:43 Levothyroxine Sodium 75 Mcg Tablet PO 75 mcg DAILY@0630 [facility] Administration Loperamide HCl 2 mg 10/11/20 08:21 10/18/20 23:34 Loperamide Hcl 2 Mg Capsule PO 2 mg Q6H PRN Administration Constipation Lorazepam 0.5 mg 10/14/20 14:05 Lorazepam 0.5 Mg Tablet PO Q8H PRN Anxiety Metformin HCl 500 mg 10/10/20 17:00 10/19/20 10:20 Metformin Hcl 500 Mg Tablet PO 500 mg BIDWM [facility] Administration Pharmacy Consult 1 each 09/20/20 18:27 Consult Rx Perform Med Rec MISCELLANE ONCE PRN Consult order Sodium Chloride 3 ml 09/21/20 00:00 10/19/20 10:20 0.9 % Sodium Chloride Flush 3 Ml Syringe IVFLUSH 3 ml QSHIFT [facility]1983 Administration Trazodone HCl 25 mg 09/25/20 19:19 10/08/20 21:02 Trazodone Hcl 25 Mg Halftab PO 25 mg BEDTIME PRN Administration Insomnia Labs CBC & Chem 7: 09/27/20 05:26 10/18/20 08:11 Microbiology Microbiology Results: Microbiology 09/21/20 Unknown Urine clean catch - Clean Catch Midstream Urine Culture - Final No growth. Assessment and Plan (1) Communicating hydrocephalus: Problem details: ventricles are moderately enlarged, slightly disproportionate to cortical atrophy which may suggest communicating hydrocephalus. I do not believe this is the case and feel she is a poor shunt candidate. Status: Acute (2) Neurocognitive disorder: Problem details: Start donepezil 5 mg daily Status: Acute (3) Bradycardia: Status: Acute (4) UTI (urinary tract infection): Status: Acute (5) Non-rheumatic aortic stenosis: Status: Acute (6) Atherosclerotic cardiovascular disease: Status: Acute (7) Elevated troponin: Status: Acute (8) Abnormal ECG: Status: Acute (9) Fall: Status: Acute Assessment and Plan: 85-year-old female with a past medical history of hypertension, hyperlipidemia, diabetes, hypothyroidism, CAD with stents presented to the hospital with a chief complaint of fall. Noted to have elevated troponins admitted to the hospital for further management. stable, no changes overnight, awaiting court date - tomorrow s/p fall No episode of recurrent fall since admit, using walker for ambulation,No detail information available surrounding her fall at home since patient has cognitive impairment and poor historian initial head CT with ? of subacute vs chronic left precentral gyrus infarct,MRI with no evidence of acute or subacute infarct, but mentioned possible NPH,seen by neuro Dr Tomlinson feels less likely NPH, and not good candidate for REDUCER shunt awaiting guardianship since patient has lack of capacity to make medical decision, seen by Physical therapy and noted to have good functional capacity therefore discharged from physical therapy services, Encourage ambulation. Acute grief Patient grieving over the of her , wants to go home to make arrangements for burial, support provided, continue Ativan for anxiety. CAD/Elevated troponins: Was likely due to hypertension and elevated creatinine, seen by Cardiology they recommend to treat her as stable coronary artery disease, continue asa, metoprolol and statin Diabetes, blood sugars stable continue insulin sliding scale and home medication metformin and glipizide (takes glimepiride at home) HTN blood pressure better controlled on current dose of hydralazine 50 mg t.i.d., metoprolol and amlodipine, at home was on hydralazine 25 b.i.d. is still noted to have intermittent high blood pressure readings likely due to anxiety. Disposition patient wishes to be discharged home but due to incompetency waiting for guardianship, spoke with social services specialist , court date for guardianship on October 20.
[2020-10-19 11:07] LABS: Glucose, Whole Blood 157 mg/dL (60-115)
[2020-10-19] MEDS: Insulin Lispro 100 UNIT/ML 3 ML VIAL SUBCUT (11:36)
--- NOTE | 2020-10-19 16:15 | MHC.CM.PN ---
CM MET WITH PT SEVERAL TIMES THROUGHOUT THE DAY. PT IS VERY ANXIOUS ABOUT GUARDIANSHIP HEARING SCHEDULED FOR TOMORROW MORNING VIA [employer]. CM PROVIDED THE NAME AND NUMBER OF PTS TELEGRAPH REPEATER INSTALLER, RAHUL DAVE ([phone]). CM PRESENT WHILE PT SPOKE TO TELEGRAPH REPEATER INSTALLER. PTS TELEGRAPH REPEATER INSTALLER SUGGESTS SHE BE PRESENT DURING THE HEARING TOMORROW. CM WILL OBTAIN SIGN ON INFO AND ASSIST PT. PT CONTINUES TO REPORT HOW BADLY SHE WANTS TO RETURN HOME AND HOW SHE DOES NOT WANT TO GO ANYWHERE ELSE. CM DID REMIND PT THE HOME REQUIRES REPAIRS HOWEVER, PT RESPONDS, I CANNOT DO IT FROM HERE . PT IS AWARE HER SEPTIC SYSTEM IS BACKED UP ADN DOES CONFIRM SHE ONLY HAS THE ONE REST ROOM IN THE HOME. PT REPORTS HER FRIEND, JENY, OFFERED TO HAVE PT STAY WITH HER IF NEEDED HOWEVER PT DOES NOT WANT TO DO SO. PT WILL ATTEND GUARDIANSHIP HEARING VIA ZOOM ON 10/20/20 AT 0930 HOURS
[2020-10-19 16:40] LABS: Glucose, Whole Blood 106 mg/dL (60-115)
[2020-10-19] MEDS: Atorvastatin Calcium 80 MG TABLET PO (20:39)
[2020-10-19 20:51] LABS: Glucose, Whole Blood 113 mg/dL (60-115)
[2020-10-20 03:07] VITALS: BP 159/70; PULSE 57; RESP 18; TEMP 37.2; O2SAT 97
[2020-10-20] MEDS: Levothyroxine Sodium 75 MCG TABLET PO (05:33)
[2020-10-20 07:47] LABS: Glucose, Whole Blood 87 mg/dL (60-115)
[2020-10-20 08:00] VITALS: BP 153/68; PULSE 59; RESP 20; O2SAT 98
[2020-10-20] MEDS: 0.9 % Sodium Chloride Flush 3 ML SYRINGE IVFLUSH ×2 (09:00→15:37)
[2020-10-20] MEDS: Enoxaparin Sodium 40 MG/0.4 ML SYRINGE SUBCUT (09:00)
[2020-10-20] MEDS: hydrALAZINE HCl 25 MG TABLET 50 MG PO ×3 (09:00→20:38)
[2020-10-20] MEDS: Enalapril Maleate 10 MG TABLET 20 MG PO ×2 (09:01→20:38)
[2020-10-20] MEDS: metFORMIN HCl 500 MG TABLET PO ×2 (09:01→17:16)
[2020-10-20] MEDS: amLODIPine Besylate 10 MG TABLET PO (09:01)
[2020-10-20] MEDS: glipiZIDE XL 5 MG TAB.ER.24 PO (09:01)
[2020-10-20] MEDS: Aspirin 81 MG TAB.CHEW PO (09:01)
[2020-10-20 11:20] LABS: Glucose, Whole Blood 227 mg/dL (60-115)
[2020-10-20] MEDS: Insulin Lispro 100 UNIT/ML 3 ML VIAL SUBCUT (11:27)
[2020-10-20 11:36] VITALS: BP 140/48; PULSE 65; RESP 20; TEMP 36.7; O2SAT 97
--- NOTE | 2020-10-20 11:39 | P.PNIM_ITS ---
Subjective Subjective Date of Service: 10/20/20 Interval History: no complaints Cardiovascular Cardiovascular: Reports no additional cardiovascular complaints Gastrointestinal Gastrointestinal: Reports no additional gastrointestinal complaints Physical Exam Vital Signs: Vital Signs: Last Vital Signs Temp 98.9 F 10/20/20 03:07 Pulse 59 10/20/20 08:00 Resp 20 10/20/20 08:00 BP 153/68 H 10/20/20 08:00 Pulse Ox 98 10/20/20 08:00 Body Mass Index 24.7 General: no acute distress Resp: CTA bilateral CVS: S1,S2,RRR GI: soft, non tender, non distended Neuro: motor grossly intact Objective Data Current Medications Generic Name Dose Route Start Last Admin Trade Name Freq PRN Reason Stop Dose Admin Acetaminophen 650 mg 09/28/20 11:39 10/03/20 23:35 Acetaminophen 325 Mg Tablet PO 650 mg Q6H PRN Administration PAINFEV Amlodipine Besylate 10 mg 09/21/20 09:00 10/20/20 09:01 Amlodipine Besylate 10 Mg Tablet PO 10 mg DAILY RAGHAVENDRA Administration Protocol Aspirin 81 mg 09/21/20 09:00 10/20/20 09:01 Aspirin 81 Mg Tab.Chew PO 81 mg DAILY RAGHAVENDRA Administration Atorvastatin Calcium 80 mg 10/04/20 21:00 10/19/20 20:39 Atorvastatin Calcium 80 Mg Tablet PO 80 mg BEDTIME RAGHAVENDRA Administration Enalapril Maleate 20 mg 10/05/20 12:00 10/20/20 09:01 Enalapril Maleate 10 Mg Tablet PO 20 mg BID RAGHAVENDRA Administration Enoxaparin Sodium 40 mg 10/07/20 08:00 10/20/20 09:00 Enoxaparin Sodium 40 Mg/0.4 Ml Syringe SUBCUT 40 mg Q24H RAGHAVENDRA Administration Glipizide 5 mg 10/11/20 09:00 10/20/20 09:01 Glipizide Xl 5 Mg Tab.Er.24 PO 5 mg DAILY RAGHAVENDRA Administration Hydralazine HCl 50 mg 10/13/20 15:00 10/20/20 09:00 Hydralazine Hcl 25 Mg Tablet PO 50 mg TID RAGHAVENDRA Administration Protocol Hydroxyzine HCl 25 mg 09/25/20 19:19 10/05/20 21:11 Hydroxyzine Hcl 25 Mg Tablet PO 25 mg Q8H PRN Administration Restlessness Insulin Human Lispro 0 unit 09/21/20 07:30 10/20/20 11:27 Insulin Lispro 100 Unit/Ml 3 Ml Vial SUBCUT 4 unit QIDACHS [facility] Administration Protocol Levothyroxine Sodium 75 mcg 09/21/20 06:30 10/20/20 05:33 Levothyroxine Sodium 75 Mcg Tablet PO 75 mcg DAILY@0630 RAGHAVENDRA Administration Loperamide HCl 2 mg 10/11/20 08:21 10/18/20 23:34 Loperamide Hcl 2 Mg Capsule PO 2 mg Q6H PRN Administration Constipation Metformin HCl 500 mg 10/10/20 17:00 10/20/20 09:01 Metformin Hcl 500 Mg Tablet PO 500 mg BIDWM [facility] Administration Pharmacy Consult 1 each 09/20/20 18:27 Consult Rx Perform Med Rec MISCELLANE ONCE PRN Consult order Sodium Chloride 3 ml 09/21/20 00:00 10/20/20 09:00 0.9 % Sodium Chloride Flush 3 Ml Syringe IVFLUSH 3 ml QSHIFT [facility] Administration Trazodone HCl 25 mg 09/25/20 19:19 10/08/20 21:02 Trazodone Hcl 25 Mg Halftab PO 25 mg BEDTIME PRN Administration Insomnia Labs CBC & Chem 7: 09/27/20 05:26 10/18/20 08:11 Microbiology Microbiology Results: Microbiology 09/21/20 Unknown Urine clean catch - Clean Catch Midstream Urine Culture - Final No growth. Assessment and Plan (1) Communicating hydrocephalus: Problem details: ventricles are moderately enlarged, slightly disproportionate to cortical atrophy which may suggest communicating hydrocephalus. I do not believe this is the case and feel she is a poor shunt candidate. Status: Acute (2) Neurocognitive disorder: Problem details: Start donepezil 5 mg daily Status: Acute (3) Bradycardia: Status: Acute (4) UTI (urinary tract infection): Status: Acute (5) Non-rheumatic aortic stenosis: Status: Acute (6) Atherosclerotic cardiovascular disease: Status: Acute (7) Elevated troponin: Status: Acute (8) Abnormal ECG: Status: Acute (9) Fall: Status: Acute Assessment and Plan: 85-year-old female with a past medical history of hypertension, hyperlipidemia, diabetes, hypothyroidism, CAD with stents presented to the hospital with a chief complaint of fall. Noted to have elevated troponins admitted to the hospital for further management. court date today for guardianship s/p fall No episode of recurrent fall since admit, using walker for ambulation,No detail information available surrounding her fall at home since patient has cognitive impairment and poor historian initial head CT with ? of subacute vs chronic left precentral gyrus infarct,MRI with no evidence of acute or subacute infarct, but mentioned possible NPH,seen by neuro Dr Tomlinson feels less likely NPH, and not good candidate for IMMUNOLOGIST shunt awaiting guardianship since patient has lack of capacity to make medical decision, seen by Physical therapy and noted to have good functional capacity therefore discharged from physical therapy services, Encourage ambulation. Acute grief Patient grieving over the of her , wants to go home to make arrangements for burial, support provided, continue Ativan for anxiety. CAD/Elevated troponins: Was likely due to hypertension and elevated creatinine, seen by Cardiology they recommend to treat her as stable coronary artery disease, continue asa, metoprolol and statin Diabetes, blood sugars stable continue insulin sliding scale and home medication metformin and glipizide (takes glimepiride at home) HTN blood pressure better controlled on current dose of hydralazine 50 mg t.i.d., metoprolol and amlodipine, at home was on hydralazine 25 b.i.d. is still noted to have intermittent high blood pressure readings likely due to anxiety. Disposition patient wishes to be discharged home but due to incompetency waiting for guardianship, spoke with drug abuse social worker , court date for guardianship on October 20.
[2020-10-20 15:18] VITALS: BP 118/49; PULSE 58; RESP 18; TEMP 36.7; O2SAT 98
[2020-10-20 15:35] VITALS: BP 118/49; PULSE 58
--- NOTE | 2020-10-20 15:56 | MHC.CM.PN ---
PTS GUARDIANSHIP HEARING TOOK PLACE THIS MORNING VIA [employer]. CM, PT, [employer] [employer], PTS GROUNDS SUPERVISOR (RAHUL DAVE), AND PTS TWO SONS, JURGEN AND JHONATAN, WERE PRESENT ALONG WITH THE ENERGY CONTROL OFFICER. DURING THE HEARING THEY DISCUSSED THE CONDITION OF THE PTS HOME AND THE DIFFERENCE IN PTS PRESENTATION FROM HER INITIAL ADMISSION. AT THE CONCLUSION OF THE CALL, IT WAS DETERMINED THAT THE PTS SON, JHONATAN, WOULD BE HERE TEMPORARY, UP TO 90 DAYS, GUARDIAN AND CONSERVATOR. THE GOALS DISCUSSED WERE DETERMINING PTS ASSETS AND CONDITION OF HER HOME TO CONCLUDE WHETHER OR NOT IT WOULD BE POSSIBLE TO MAKE THE NECESSARY REPAIRS SO THAT IT WOULD BE SAFE FOR THE PT TO RETURN. AT THAT TIME, THE PLAN WAS FOR CM TO WORK WITH PTS SON TO DETERMINE IF SHE HAD THE FINANCIAL MEANS TO SUPPORT AN ALTERNATE LIVING ARRANGEMENT WHILE HE WAS WORKING TO HAVE THE HOUSE REPAIRED OR IF SHE WOULD BE ELIGIBLE FOR [place] IN ORDER TO USE A RETIREMENT BENEFIT. THIS AFTERNOON, CM RECEIVED A MESSAGE INDICATING THE PTS SON HAD CALLED BACK AND INDICATED HE WAS NOT WILLING TO BE PTS GUARDIAN OR CONSERVATOR. CM WILL CONTACT [facility] TO DETERMINE IF THEY HAVE SOMEONE AVAILABLE TO SERVE THIS CAPACITY. PT STILL LACKS A SAFE DC PLAN. CM WILL CONTINUE TO WORK ON FINDING A TEMPORARY GUARDIAN/CONSERVATOR WHO CAN ASSIST IN REVIEWING PTS MEANS AND POSSIBLE DC PLANS.
[2020-10-20 16:01] LABS: Glucose, Whole Blood 50 mg/dL (60-115)
[2020-10-20 17:17] LABS: Glucose, Whole Blood 138 mg/dL (60-115)
[2020-10-20 19:04] VITALS: BP 172/73; PULSE 66; RESP 18; TEMP 37.1; O2SAT 98
[2020-10-20 20:01] LABS: Glucose, Whole Blood 134 mg/dL (60-115)
[2020-10-20] MEDS: Atorvastatin Calcium 80 MG TABLET PO (20:38)
[2020-10-20] MEDS: Loperamide HCl 2 MG CAPSULE PO (20:41)
[2020-10-21] VITALS (12 sets, daily range): BP systolic 143–155; BP diastolic 66–83; PULSE 51–63; RESP 14–20; TEMP 36.1–36.9; O2SAT 96–100
[2020-10-21] MEDS: 0.9 % Sodium Chloride Flush 3 ML SYRINGE IVFLUSH ×4 (00:54→20:41)
[2020-10-21] MEDS: Levothyroxine Sodium 75 MCG TABLET PO (06:41)
[2020-10-21 07:49] LABS: Glucose, Whole Blood 75 mg/dL (60-115)
[2020-10-21] MEDS: hydrALAZINE HCl 25 MG TABLET 50 MG PO ×3 (07:53→20:40)
[2020-10-21] MEDS: amLODIPine Besylate 10 MG TABLET PO (07:55)
[2020-10-21] MEDS: Aspirin 81 MG TAB.CHEW PO (07:55)
[2020-10-21] MEDS: Enalapril Maleate 10 MG TABLET 20 MG PO ×2 (07:56→20:39)
[2020-10-21] MEDS: glipiZIDE XL 5 MG TAB.ER.24 PO (07:56)
[2020-10-21] MEDS: metFORMIN HCl 500 MG TABLET PO ×2 (07:56→17:12)
[2020-10-21] MEDS: Enoxaparin Sodium 40 MG/0.4 ML SYRINGE SUBCUT (07:56)
--- NOTE | 2020-10-21 10:10 | P.PNIM_ITS ---
Subjective Subjective Date of Service: 10/21/20 Interval History: wants to go home Cardiovascular Cardiovascular: Reports no additional cardiovascular complaints Respiratory Respiratory: Reports no additional respiratory complaints Physical Exam Vital Signs: Vital Signs: Last Vital Signs Temp 96.9 F 10/21/20 08:00 Pulse 58 10/21/20 08:00 Resp 16 10/21/20 08:00 BP 151/67 H 10/21/20 08:00 Pulse Ox 96 10/21/20 08:00 Body Mass Index 24.7 General: no acute distress Objective Data Current Medications Generic Name Dose Route Start Last Admin Trade Name Freq PRN Reason Stop Dose Admin Acetaminophen 650 mg 09/28/20 11:39 10/03/20 23:35 Acetaminophen 325 Mg Tablet PO 650 mg Q6H PRN Administration PAINFEV Amlodipine Besylate 10 mg 09/21/20 09:00 10/21/20 07:55 Amlodipine Besylate 10 Mg Tablet PO 10 mg DAILY RAGHAVENDRA Administration Protocol Aspirin 81 mg 09/21/20 09:00 10/21/20 07:55 Aspirin 81 Mg Tab.Chew PO 81 mg DAILY RAGHAVENDRA Administration Atorvastatin Calcium 80 mg 10/04/20 21:00 10/20/20 20:38 Atorvastatin Calcium 80 Mg Tablet PO 80 mg BEDTIME RAGHAVENDRA Administration Enalapril Maleate 20 mg 10/05/20 12:00 10/21/20 07:56 Enalapril Maleate 10 Mg Tablet PO 20 mg BID RAGHAVENDRA Administration Enoxaparin Sodium 40 mg 10/07/20 08:00 10/21/20 07:56 Enoxaparin Sodium 40 Mg/0.4 Ml Syringe SUBCUT 40 mg Q24H RAGHAVENDRA Administration Glipizide 5 mg 10/11/20 09:00 10/21/20 07:56 Glipizide Xl 5 Mg Tab.Er.24 PO 5 mg DAILY RAGHAVENDRA Administration Hydralazine HCl 50 mg 10/13/20 15:00 10/21/20 07:53 Hydralazine Hcl 25 Mg Tablet PO 50 mg TID RAGHAVENDRA Administration Protocol Hydroxyzine HCl 25 mg 09/25/20 19:19 10/05/20 21:11 Hydroxyzine Hcl 25 Mg Tablet PO 25 mg Q8H PRN Administration Restlessness Insulin Human Lispro 0 unit 09/21/20 07:30 10/21/20 08:05 Insulin Lispro 100 Unit/Ml 3 Ml Vial SUBCUT Not Given QIDACHS [facility] Protocol Levothyroxine Sodium 75 mcg 09/21/20 06:30 10/21/20 06:41 Levothyroxine Sodium 75 Mcg Tablet PO 75 mcg DAILY@0630 RAGHAVENDRA Administration Loperamide HCl 2 mg 10/11/20 08:21 10/20/20 20:41 Loperamide Hcl 2 Mg Capsule PO 2 mg Q6H PRN Administration Constipation Metformin HCl 500 mg 10/10/20 17:00 10/21/20 07:56 Metformin Hcl 500 Mg Tablet PO 500 mg BIDWM [facility] Administration Pharmacy Consult 1 each 09/20/20 18:27 Consult Rx Perform Med Rec MISCELLANE ONCE PRN Consult order Sodium Chloride 3 ml 09/21/20 00:00 10/21/20 08:04 0.9 % Sodium Chloride Flush 3 Ml Syringe IVFLUSH 3 ml QSHIFT [facility] Administration Trazodone HCl 25 mg 09/25/20 19:19 10/08/20 21:02 Trazodone Hcl 25 Mg Halftab PO 25 mg BEDTIME PRN Administration Insomnia Labs CBC & Chem 7: 09/27/20 05:26 10/18/20 08:11 Microbiology Microbiology Results: Microbiology 09/21/20 Unknown Urine clean catch - Clean Catch Midstream Urine Culture - F inal No growth. Assessment and Plan (1) Communicating hydrocephalus: Problem details: ventricles are moderately enlarged, slightly disproportionate to cortical atrophy which may suggest communicating hydrocephalus. I do not believe this is the case and feel she is a poor shunt candidate. Status: Acute (2) Neurocognitive disorder: Problem details: Start donepezil 5 mg daily Status: Acute (3) Bradycardia: Status: Acute (4) UTI (urinary tract infection): Status: Acute (5) Non-rheumatic aortic stenosis: Status: Acute (6) Atherosclerotic cardiovascular disease: Status: Acute (7) Elevated troponin: Status: Acute (8) Abnormal ECG: Status: Acute (9) Fall: Status: Acute Assessment and Plan: 85-year-old female with a past medical history of hypertension, hyperlipidemia, diabetes, hypothyroidism, CAD with stents presented to the hospital with a chief complaint of fall. Noted to have elevated troponins admitted to the hospital for further management. had guardianship hearing 10/20/2020, but guardianship still pending (see case management note) s/p fall No episode of recurrent fall since admit, using walker for ambulation,No detail information available surrounding her fall at home since patient has cognitive impairment and poor historian initial head CT with ? of subacute vs chronic left precentral gyrus infarct,MRI with no evidence of acute or subacute infarct, but mentioned possible NPH,seen by neuro Dr Tomlinson feels less likely NPH, and not good candidate for HEEL REDUCER shunt awaiting guardianship since patient has lack of capacity to make medical decision, seen by Physical therapy and noted to have good functional capacity therefore discharged from physical therapy services, Encourage ambulation. Acute grief Patient grieving over the of her , wants to go home to make arrangements for burial, support provided, continue Ativan for anxiety. CAD/Elevated troponins: Was likely due to hypertension and elevated creatinine, seen by Cardiology they recommend to treat her as stable coronary artery disease, continue asa, metoprolol and statin Diabetes, blood sugars stable continue insulin sliding scale and home medication metformin and glipizide (takes glimepiride at home) HTN blood pressure better controlled on current dose of hydralazine 50 mg t.i.d., metoprolol and amlodipine, at home was on hydralazine 25 b.i.d. is still noted to have intermittent high blood pressure readings likely due to anxiety. Disposition patient wishes to be discharged home but due to incompetency waiting for guardianship
[2020-10-21 11:26] LABS: Glucose, Whole Blood 214 mg/dL (60-115)
[2020-10-21] MEDS: Insulin Lispro 100 UNIT/ML 3 ML VIAL SUBCUT (11:41)
[2020-10-21 12:04] LABS: Creatinine Clr Calc Pharmacy 32.9; Estimated Glomerular Filt Rate 45
[2020-10-21 16:24] LABS: Glucose, Whole Blood 112 mg/dL (60-115)
[2020-10-21 20:33] LABS: Glucose, Whole Blood 112 mg/dL (60-115)
[2020-10-21] MEDS: Atorvastatin Calcium 80 MG TABLET PO (20:40)
[2020-10-22] VITALS (11 sets, daily range): BP systolic 141–170; BP diastolic 61–82; PULSE 58–87; RESP 18–20; TEMP 36.2–36.9; O2SAT 96–98
[2020-10-22] MEDS: Loperamide HCl 2 MG CAPSULE PO (03:08)
[2020-10-22] MEDS: Levothyroxine Sodium 75 MCG TABLET PO (06:15)
[2020-10-22 07:33] LABS: Glucose, Whole Blood 70 mg/dL (60-115)
[2020-10-22] MEDS: 0.9 % Sodium Chloride Flush 3 ML SYRINGE IVFLUSH ×2 (09:33→16:07)
[2020-10-22] MEDS: Enoxaparin Sodium 40 MG/0.4 ML SYRINGE SUBCUT (09:33)
[2020-10-22] MEDS: Enalapril Maleate 10 MG TABLET 20 MG PO ×2 (09:34→20:24)
[2020-10-22] MEDS: hydrALAZINE HCl 25 MG TABLET 50 MG PO ×3 (09:34→20:24)
[2020-10-22] MEDS: glipiZIDE XL 5 MG TAB.ER.24 PO (09:34)
[2020-10-22] MEDS: Aspirin 81 MG TAB.CHEW PO (09:35)
[2020-10-22] MEDS: metFORMIN HCl 500 MG TABLET PO ×2 (09:35→16:02)
[2020-10-22] MEDS: amLODIPine Besylate 10 MG TABLET PO (09:35)
--- NOTE | 2020-10-22 10:41 | P.PNIM_ITS ---
Subjective Subjective Date of Service: 10/22/20 Interval History: wants to go home Cardiovascular Cardiovascular: Reports no additional cardiovascular complaints Gastrointestinal Gastrointestinal: Reports no additional gastrointestinal complaints Physical Exam Vital Signs: Vital Signs: Last Vital Signs Temp 98.2 F 10/22/20 07:07 Pulse 58 10/22/20 09:35 Resp 20 10/22/20 07:07 BP 145/61 H 10/22/20 09:35 Pulse Ox 98 10/22/20 07:07 Body Mass Index 24.7 General: no acute distress Objective Data Current Medications Generic Name Dose Route Start Last Admin Trade Name Freq PRN Reason Stop Dose Admin Acetaminophen 650 mg 09/28/20 11:39 10/03/20 23:35 Acetaminophen 325 Mg Tablet PO 650 mg Q6H PRN Administration PAINFEV Amlodipine Besylate 10 mg 09/21/20 09:00 10/22/20 09:35 Amlodipine Besylate 10 Mg Tablet PO 10 mg DAILY RAGHAVENDRA Administration Protocol Aspirin 81 mg 09/21/20 09:00 10/22/20 09:35 Aspirin 81 Mg Tab.Chew PO 81 mg DAILY RAGHAVENDRA Administration Atorvastatin Calcium 80 mg 10/04/20 21:00 10/21/20 20:40 Atorvastatin Calcium 80 Mg Tablet PO 80 mg BEDTIME RAGHAVENDRA Administration Enalapril Maleate 20 mg 10/05/20 12:00 10/22/20 09:34 Enalapril Maleate 10 Mg Tablet PO 20 mg BID RAGHAVENDRA Administration Enoxaparin Sodium 40 mg 10/07/20 08:00 10/22/20 09:33 Enoxaparin Sodium 40 Mg/0.4 Ml Syringe SUBCUT 40 mg Q24H RAGHAVENDRA Administration Glipizide 5 mg 10/11/20 09:00 10/22/20 09:34 Glipizide Xl 5 Mg Tab.Er.24 PO 5 mg DAILY RAGHAVENDRA Administration Hydralazine HCl 50 mg 10/13/20 15:00 10/22/20 09:34 Hydralazine Hcl 25 Mg Tablet PO 50 mg TID RAGHAVENDRA Administration Protocol Hydroxyzine HCl 25 mg 09/25/20 19:19 10/05/20 21:11 Hydroxyzine Hcl 25 Mg Tablet PO 25 mg Q8H PRN Administration Restlessness Insulin Human Lispro 0 unit 09/21/20 07:30 10/22/20 08:48 Insulin Lispro 100 Unit/Ml 3 Ml Vial SUBCUT Not Given QIDACHS [facility] Protocol Levothyroxine Sodium 75 mcg 09/21/20 06:30 10/22/20 06:15 Levothyroxine Sodium 75 Mcg Tablet PO 75 mcg DAILY@0630 RAGHAVENDRA Administration Loperamide HCl 2 mg 10/11/20 08:21 10/22/20 03:08 Loperamide Hcl 2 Mg Capsule PO 2 mg Q6H PRN Administration Constipation Metformin HCl 500 mg 10/10/20 17:00 10/22/20 09:35 Metformin Hcl 500 Mg Tablet PO 500 mg BIDWM [facility] Administration Pharmacy Consult 1 each 09/20/20 18:27 Consult Rx Perform Med Rec MISCELLANE ONCE PRN Consult order Sodium Chloride 3 ml 09/21/20 00:00 10/22/20 09:33 0.9 % Sodium Chloride Flush 3 Ml Syringe IVFLUSH 3 ml QSHIFT [facility] Administration Trazodone HCl 25 mg 09/25/20 19:19 10/08/20 21:02 Trazodone Hcl 25 Mg Halftab PO 25 mg BEDTIME PRN Administration Insomnia Labs CBC & Chem 7: 09/27/20 05:26 10/21/20 11:28 Microbiology Microbiology Results: Microbiology 09/21/20 Unknown Urine clean catch - Clean Catch Midstream Urine Culture - Final No growth. Assessment and Plan (1) Communicating hydrocephalus: Problem details: ventricles are moderately enlarged, slightly disproportionate to cortical atrophy which may suggest communicating hydrocephalus. I do not believe this is the case and feel she is a poor shunt candidate. Status: Acute (2) Neurocognitive disorder: Problem details: Start donepezil 5 mg daily Status: Acute (3) Bradycardia: Status: Acute (4) UTI (urinary tract infection): Status: Acute (5) Non-rheumatic aortic stenosis: Status: Acute (6) Atherosclerotic cardiovascular disease: Status: Acute (7) Elevated troponin: Status: Acute (8) Abnormal ECG: Status: Acute (9) Fall: Status: Acute Assessment and Plan: 85-year-old female with a past medical history of hypertension, hyperlipidemia, diabetes, hypothyroidism, CAD with stents presented to the hospital with a chief complaint of fall. Noted to have elevated troponins admitted to the hospital for further management. had guardianship hearing 10/20/2020, but guardianship still pending (see case management note) medically stable s/p fall No episode of recurrent fall since admit, using walker for ambulation,No detail information available surrounding her fall at home since patient has cognitive impairment and poor historian initial head CT with ? of subacute vs chronic left precentral gyrus infarct,MRI with no evidence of acute or subacute infarct, but mentioned possible NPH,seen by neuro Dr Tomlinson feels less likely NPH, and not good candidate for COAL GRADER shunt awaiting guardianship since patient has lack of capacity to make medical decision, seen by Physical therapy and noted to have good functional capacity therefore discharged from physical therapy services, Encourage ambulation. Acute grief Patient grieving over the of her , wants to go home to make arrangements for burial, support provided, continue Ativan for anxiety. CAD/Elevated troponins: Was likely due to hypertension and elevated creatinine, seen by Cardiology they recommend to treat her as stable coronary artery disease, continue asa, metoprolol and statin Diabetes, blood sugars stable continue insulin sliding scale and home medication metformin and glipizide (takes glimepiride at home) HTN blood pressure better controlled on current dose of hydralazine 50 mg t.i.d., metoprolol and amlodipine, at home was on hydralazine 25 b.i.d. is still noted to have intermittent high blood pressure readings likely due to anxiety. Disposition patient wishes to be discharged home but due to incompetency waiting for guardianship
[2020-10-22 11:15] LABS: Glucose, Whole Blood 146 mg/dL (60-115)
--- NOTE | 2020-10-22 15:16 | P.EN_ITS ---
Event Note Date of Service: 10/22/20 Event Note: consult reviewed with dr self chart reviewed. ? need for neurops ych battery which is not available thru psychiatry. Will discuss case with case management and try and clarify . Pt with question of NPH on MRI neurosurgery not available Pt pending guardianship Andrea Villalpando MD
[2020-10-22 16:03] LABS: Glucose, Whole Blood 108 mg/dL (60-115)
[2020-10-22] MEDS: Atorvastatin Calcium 80 MG TABLET PO (20:24)
[2020-10-22 21:30] LABS: Glucose, Whole Blood 109 mg/dL (60-115)
[2020-10-23] VITALS (8 sets, daily range): BP systolic 140–172; BP diastolic 65–88; PULSE 55–61; RESP 16–18; TEMP 36.2–37.3; O2SAT 95–98
[2020-10-23] MEDS: 0.9 % Sodium Chloride Flush 3 ML SYRINGE IVFLUSH ×2 (00:48→09:49)
[2020-10-23] MEDS: Levothyroxine Sodium 75 MCG TABLET PO (06:27)
[2020-10-23 07:52] LABS: Glucose, Whole Blood 97 mg/dL (60-115)
[2020-10-23] MEDS: hydrALAZINE HCl 25 MG TABLET 50 MG PO ×3 (09:47→21:01)
[2020-10-23] MEDS: Enoxaparin Sodium 40 MG/0.4 ML SYRINGE SUBCUT (09:48)
[2020-10-23] MEDS: Enalapril Maleate 10 MG TABLET 20 MG PO ×2 (09:48→21:01)
[2020-10-23] MEDS: metFORMIN HCl 500 MG TABLET PO ×2 (09:48→17:34)
[2020-10-23] MEDS: amLODIPine Besylate 10 MG TABLET PO (09:48)
[2020-10-23] MEDS: glipiZIDE XL 5 MG TAB.ER.24 PO (09:48)
[2020-10-23] MEDS: Aspirin 81 MG TAB.CHEW PO (09:48)
--- NOTE | 2020-10-23 10:19 | HO.PM.IMPN ---
Subjective Subjective Date of Service: 10/23/20 Interval History: wants to go home Cardiovascular Cardiovascular: Reports no additional cardiovascular complaints Gastrointestinal Gastrointestinal: Reports no additional gastrointestinal complaints Physical Exam Vital Signs: Vital Signs: Last Vital Signs Temp 99.2 F 10/23/20 08:00 Pulse 57 10/23/20 08:00 Resp 18 10/23/20 08:00 BP 172/88 H 10/23/20 08:00 Pulse Ox 96 10/23/20 08:00 Body Mass Index 24.7 General: no acute distress Objective Data Current Medications Generic Name Dose Route Start Last Admin Trade Name Freq PRN Reason Stop Dose Admin Acetaminophen 650 mg 09/28/20 11:39 10/03/20 23:35 Acetaminophen 325 Mg Tablet PO 650 mg Q6H PRN Administration PAINFEV Amlodipine Besylate 10 mg 09/21/20 09:00 10/23/20 09:48 Amlodipine Besylate 10 Mg Tablet PO 10 mg DAILY RAGHAVENDRA Administration Protocol Aspirin 81 mg 09/21/20 09:00 10/23/20 09:48 Aspirin 81 Mg Tab.Chew PO 81 mg DAILY RAGHAVENDRA Administration Atorvastatin Calcium 80 mg 10/04/20 21:00 10/22/20 20:24 Atorvastatin Calcium 80 Mg Tablet PO 80 mg BEDTIME RAGHAVENDRA Administration Enalapril Maleate 20 mg 10/05/20 12:00 10/23/20 09:48 Enalapril Maleate 10 Mg Tablet PO 20 mg BID RAGHAVENDRA Administration Enoxaparin Sodium 40 mg 10/07/20 08:00 10/23/20 09:48 Enoxaparin Sodium 40 Mg/0.4 Ml Syringe SUBCUT 40 mg Q24H RAGHAVENDRA Administration Glipizide 5 mg 10/11/20 09:00 10/23/20 09:48 Glipizide Xl 5 Mg Tab.Er.24 PO 5 mg DAILY RAGHAVENDRA Administration Hydralazine HCl 50 mg 10/13/20 15:00 10/23/20 09:47 Hydralazine Hcl 25 Mg Tablet PO 50 mg TID RAGHAVENDRA Administration Protocol Hydroxyzine HCl 25 mg 09/25/20 19:19 10/05/20 21:11 Hydroxyzine Hcl 25 Mg Tablet PO 25 mg Q8H PRN Administration Restlessness Insulin Human Lispro 0 unit 09/21/20 07:30 10/23/20 09:48 Insulin Lispro 100 Unit/Ml 3 Ml Vial SUBCUT Not Given QIDACHS [facility] Protocol Levothyroxine Sodium 75 mcg 09/21/20 06:30 10/23/20 06:27 Levothyroxine Sodium 75 Mcg Tablet PO 75 mcg DAILY@0630 RAGHAVENDRA Administration Loperamide HCl 2 mg 10/11/20 08:21 10/22/20 03:08 Loperamide Hcl 2 Mg Capsule PO 2 mg Q6H PRN Administration Constipation Metformin HCl 500 mg 10/10/20 17:00 10/23/20 09:48 Metformin Hcl 500 Mg Tablet PO 500 mg BIDWM [facility] Administration Pharmacy Consult 1 each 09/20/20 18:27 Consult Rx Perform Med Rec MISCELLANE ONCE PRN Consult order Sodium Chloride 3 ml 09/21/20 00:00 10/23/20 09:49 0.9 % Sodium Chloride Flush 3 Ml Syringe IVFLUSH 3 ml QSHIFT [facility] Administration Trazodone HCl 25 mg 09/25/20 19:19 10/08/20 21:02 Trazodone Hcl 25 Mg Halftab PO 25 mg BEDTIME PRN Administration Insomnia Labs CBC & Chem 7: 09/27/20 05:26 10/21/20 11:28 Microbiology Microbiology Results: Microbiology 09/21/20 Unknown Urine clean catch - Clean Catch Midstream Urine Culture - Final No growth. Assessment and Plan (1) Communicating hydrocephalus: Problem details: ventricles are moderately enlarged, slightly disproportionate to cortical atrophy which may suggest communicating hydrocephalus. I do not believe this is the case and feel she is a poor shunt candidate. Status: Acute (2) Neurocognitive disorder: Problem details: Start donepezil 5 mg daily Status: Acute (3) Bradycardia: Status: Acute (4) UTI (urinary tract infection): Status: Acute (5) Non-rheumatic aortic stenosis: Status: Acute (6) Atherosclerotic cardiovascular disease: Status: Acute (7) Elevated troponin: Status: Acute (8) Abnormal ECG: Status: Acute (9) Fall: Status: Acute Assessment and Plan: 85-year-old female with a past medical history of hypertension, hyperlipidemia, diabetes, hypothyroidism, CAD with stents presented to the hospital with a chief complaint of fall. Noted to have elevated troponins admitted to the hospital for further management. had guardianship hearing 10/20/2020, but guardianship still pending (see case management note) no changes s/p fall No episode of recurrent fall since admit, using walker for ambulation,No detail information available surrounding her fall at home since patient has cognitive impairment and poor historian initial head CT with ? of subacute vs chronic left precentral gyrus infarct,MRI with no evidence of acute or subacute infarct, but mentioned possible NPH,seen by neuro Dr Tomlinson feels less likely NPH, and not good candidate for GAS PUMPING STATION OPERATOR shunt awaiting guardianship since patient has lack of capacity to make medical decision, seen by Physical therapy and noted to have good functional capacity therefore discharged from physical therapy services, Encourage ambulation. Acute grief Patient grieving over the of her , wants to go home to make arrangements for burial, support provided, continue Ativan for anxiety. CAD/Elevated troponins: Was likely due to hypertension and elevated creatinine, seen by Cardiology they recommend to treat her as stable coronary artery disease, continue asa, metoprolol and statin Diabetes, blood sugars stable continue insulin sliding scale and home medication metformin and glipizide (takes glimepiride at home) HTN blood pressure better controlled on current dose of hydralazine 50 mg t.i.d., metoprolol and amlodipine, at home was on hydralazine 25 b.i.d. is still noted to have intermittent high blood pressure readings likely due to anxiety. Disposition patient wishes to be discharged home but due to incompetency waiting for guardianship
[2020-10-23 11:11] LABS: Glucose, Whole Blood 190 mg/dL (60-115)
[2020-10-23 16:18] LABS: Glucose, Whole Blood 73 mg/dL (60-115)
--- NOTE | 2020-10-23 16:18 | MHC.CM.PN ---
CM met with pt this morning. She reports needing to leave the hospital and being tired of staying in the same room. Pt reports she needs to get home so she can get the repairs done. Pt is also very concerned because she has been unable to pay her mortgage. Request made for updated competency eval A second hearing regarding guardianship is scheduled for 11/03/20
[2020-10-23] MEDS: Loperamide HCl 2 MG CAPSULE PO (21:00)
[2020-10-23] MEDS: Atorvastatin Calcium 80 MG TABLET PO (21:02)
[2020-10-23 21:03] LABS: Glucose, Whole Blood 94 mg/dL (60-115)
[2020-10-24] VITALS (8 sets, daily range): BP systolic 150–181; BP diastolic 63–86; PULSE 56–101; RESP 16–18; TEMP 36.1–37.2; O2SAT 95–99
[2020-10-24] MEDS: Levothyroxine Sodium 75 MCG TABLET PO (06:24)
[2020-10-24 07:14] LABS: Glucose, Whole Blood 61 mg/dL (60-115)
[2020-10-24] MEDS: Aspirin 81 MG TAB.CHEW PO (09:23)
[2020-10-24] MEDS: Enalapril Maleate 10 MG TABLET 20 MG PO ×2 (09:23→21:29)
[2020-10-24] MEDS: metFORMIN HCl 500 MG TABLET PO ×2 (09:23→16:30)
[2020-10-24] MEDS: amLODIPine Besylate 10 MG TABLET PO (09:23)
[2020-10-24] MEDS: glipiZIDE XL 5 MG TAB.ER.24 PO (09:23)
[2020-10-24] MEDS: hydrALAZINE HCl 25 MG TABLET 50 MG PO ×3 (09:23→21:39)
[2020-10-24] MEDS: Enoxaparin Sodium 40 MG/0.4 ML SYRINGE SUBCUT (09:23)
[2020-10-24] MEDS: Acetaminophen 325 MG TABLET 650 MG PO (09:47)
[2020-10-24 11:28] LABS: Glucose, Whole Blood 306 mg/dL (60-115)
--- NOTE | 2020-10-24 11:31 | HO.PM.IMPN ---
Subjective Subjective Date of Service: 10/24/20 Interval History: Awaiting guardianship. Frustrated and wants to go home burry my Physical Exam Vital Signs: Vital Signs: Last Vital Signs Temp 97 F 10/24/20 11:06 Pulse 61 10/24/20 11:06 Resp 18 10/24/20 11:06 BP 150/72 H 10/24/20 11:06 Pulse Ox 97 10/24/20 11:06 Body Mass Index 24.7 General: AO X 2, no acute distress Resp: CTA bilateral CVS: S1,S2,RRR GI: +BS, NT, no distention Skin: No rash Neuro: motor grossly intact Psych: lack of judgement Objective Data Current Medications Generic Name Dose Route Start Last Admin Trade Name Freq PRN Reason Stop Dose Admin Acetaminophen 650 mg 09/28/20 11:39 10/24/20 09:47 Acetaminophen 325 Mg Tablet PO 650 mg Q6H PRN Administration PAINFEV Amlodipine Besylate 10 mg 09/21/20 09:00 10/24/20 09:23 Amlodipine Besylate 10 Mg Tablet PO 10 mg DAILY RAGHAVENDRA Administration Protocol Aspirin 81 mg 09/21/20 09:00 10/24/20 09:23 Aspirin 81 Mg Tab.Chew PO 81 mg DAILY RAGHAVENDRA Administration Atorvastatin Calcium 80 mg 10/04/20 21:00 10/23/20 21:02 Atorvastatin Calcium 80 Mg Tablet PO 80 mg BEDTIME RAGHAVENDRA Administration Enalapril Maleate 20 mg 10/05/20 12:00 10/24/20 09:23 Enalapril Maleate 10 Mg Tablet PO 20 mg BID RAGHAVENDRA Administration Enoxaparin Sodium 40 mg 10/07/20 08:00 10/24/20 09:23 Enoxaparin Sodium 40 Mg/0.4 Ml Syringe SUBCUT 40 mg Q24H RAGHAVENDRA Administration Glipizide 5 mg 10/11/20 09:00 10/24/20 09:23 Glipizide Xl 5 Mg Tab.Er.24 PO 5 mg DAILY RAGHAVENDRA Administration Hydralazine HCl 50 mg 10/13/20 15:00 10/24/20 09:23 Hydralazine Hcl 25 Mg Tablet PO 50 mg TID RAGHAVENDRA Administration Protocol Hydroxyzine HCl 25 mg 09/25/20 19:19 10/05/20 21:11 Hydroxyzine Hcl 25 Mg Tablet PO 25 mg Q8H PRN Administration Restlessness Insulin Human Lispro 0 unit 09/21/20 07:30 10/24/20 09:22 Insulin Lispro 100 Unit/Ml 3 Ml Vial SUBCUT Not Given QIDACHS [facility] Protocol Levothyroxine Sodium 75 mcg 09/21/20 06:30 10/24/20 06:24 Levothyroxine Sodium 75 Mcg Tablet PO 75 mcg DAILY@0630 RAGHAVENDRA Administration Loperamide HCl 2 mg 10/11/20 08:21 10/23/20 21:00 Loperamide Hcl 2 Mg Capsule PO 2 mg Q6H PRN Administration Constipation Metformin HCl 500 mg 10/10/20 17:00 10/24/20 09:23 Metformin Hcl 500 Mg Tablet PO 500 mg BIDWM [facility] Administration Pharmacy Consult 1 each 09/20/20 18:27 Consult Rx Perform Med Rec MISCELLANE ONCE PRN Consult order Sodium Chloride 3 ml 09/21/20 00:00 10/24/20 09:22 0.9 % Sodium Chloride Flush 3 Ml Syringe IVFLUSH Not Given QSHIFT [facility] Trazodone HCl 25 mg 09/25/20 19:19 10/08/20 21:02 Trazodone Hcl 25 Mg Halftab PO 25 mg BEDTIME PRN Administration Insomnia Labs CBC & Chem 7: 09/27/20 05:26 10/21/20 11:28 Microbiology Microbiology Results: Microbiology 09/21/20 Unknown Urine clean catch - Clean Catch Midstream Urine Culture - Final No growth. Assessment and Plan (1) Communicating hydrocephalus: Problem details: ventricles are moderately enlarged, slightly disproportionate to cortical atrophy which may suggest communicating hydrocephalus. I do not believe this is the case and feel she is a poor shunt candidate. Status: Acute (2) Neurocognitive disorder: Problem details: Start donepezil 5 mg daily Status: Acute (3) Bradycardia: Status: Acute (4) UTI (urinary tract infection): Status: Acute (5) Non-rheumatic aortic stenosis: Status: Acute (6) Atherosclerotic cardiovascular disease: Status: Acute (7) Elevated troponin: Status: Acute (8) Abnormal ECG: Status: Acute (9) Fall: Status: Acute Assessment and Plan: 85-year-old female with a past medical history of hypertension, hyperlipidemia, diabetes, hypothyroidism, CAD with stents presented to the hospital with a chief complaint of fall. Noted to have elevated troponins admitted to the hospital for further management. had guardianship hearing 10/20/2020, but guardianship still pending (see case management note) no changes s/p fall No episode of recurrent fall since admit, using walker for ambulation,No detail information available surrounding her fall at home since patient has cognitive impairment and poor historian initial head CT with ? of subacute vs chronic left precentral gyrus infarct,MRI with no evidence of acute or subacute infarct, but mentioned possible NPH,seen by neuro Dr Tomlinson feels less likely NPH, and not good candidate for PUMPER HEAD shunt awaiting guardianship since patient has lack of capacity to make medical decision, seen by Physical therapy and noted to have good functional capacity therefore discharged from physical therapy services, Encourage ambulation. Acute grief Patient grieving over the of her , wants to go home to make arrangements for burial, support provided, continue Ativan for anxiety. CAD/Elevated troponins: Was likely due to hypertension and elevated creatinine, seen by Cardiology they recommend to treat her as stable coronary artery disease, continue asa, metoprolol and statin Diabetes, blood sugars stable continue insulin sliding scale and home medication metformin and glipizide (takes glimepiride at home) HTN blood pressure better controlled on current dose of hydralazine 50 mg t.i.d., metoprolol and amlodipine, at home was on hydralazine 25 b.i.d. is still noted to have intermittent high blood pressure readings likely due to anxiety. Disposition patient wishes to be discharged home but due to incompetency waiting for guardianship
[2020-10-24] MEDS: Insulin Lispro 100 UNIT/ML 3 ML VIAL SUBCUT (11:41)
[2020-10-24 16:20] LABS: Glucose, Whole Blood 93 mg/dL (60-115)
[2020-10-24 20:23] LABS: Glucose, Whole Blood 103 mg/dL (60-115)
[2020-10-24] MEDS: Atorvastatin Calcium 80 MG TABLET PO (21:29)
[2020-10-25] VITALS (8 sets, daily range): BP systolic 140–174; BP diastolic 60–74; PULSE 56–64; RESP 18–20; TEMP 36.1–37; O2SAT 95–98
[2020-10-25] MEDS: Levothyroxine Sodium 75 MCG TABLET PO (06:02)
[2020-10-25 07:04] LABS: Glucose, Whole Blood 69 mg/dL (60-115)
[2020-10-25] MEDS: Enoxaparin Sodium 40 MG/0.4 ML SYRINGE SUBCUT (07:31)
[2020-10-25] MEDS: hydrALAZINE HCl 25 MG TABLET 50 MG PO ×3 (07:32→20:42)
[2020-10-25] MEDS: amLODIPine Besylate 10 MG TABLET PO (07:32)
[2020-10-25] MEDS: glipiZIDE XL 5 MG TAB.ER.24 PO (07:32)
[2020-10-25] MEDS: Enalapril Maleate 10 MG TABLET 20 MG PO ×2 (07:33→20:43)
[2020-10-25] MEDS: metFORMIN HCl 500 MG TABLET PO ×2 (07:33→16:49)
[2020-10-25] MEDS: Aspirin 81 MG TAB.CHEW PO (07:33)
--- NOTE | 2020-10-25 10:37 | HO.PM.IMPN ---
Subjective Subjective Date of Service: 10/25/20 Interval History: Awaiting guardianship. No new issues. Frustrated and wants to go home burry my Physical Exam Vital Signs: Vital Signs: Last Vital Signs Temp 98 F 10/25/20 07:01 Pulse 62 10/25/20 07:01 Resp 18 10/25/20 07:01 BP 158/73 H 10/25/20 07:01 Pulse Ox 96 10/25/20 07:01 Body Mass Index 24.7 General: AO X 2, no acute distress Resp: CTA bilateral CVS: S1,S2,RRR GI: +BS, NT, no distention Skin: No rash Neuro: motor grossly intact Psych: lack of judgement Objective Data Current Medications Generic Name Dose Route Start Last Admin Trade Name Freq PRN Reason Stop Dose Admin Acetaminophen 650 mg 09/28/20 11:39 10/24/20 09:47 Acetaminophen 325 Mg Tablet PO 650 mg Q6H PRN Administration PAINFEV Amlodipine Besylate 10 mg 09/21/20 09:00 10/25/20 07:32 Amlodipine Besylate 10 Mg Tablet PO 10 mg DAILY RAGHAVENDRA Administration Protocol Aspirin 81 mg 09/21/20 09:00 10/25/20 07:33 Aspirin 81 Mg Tab.Chew PO 81 mg DAILY RAGHAVENDRA Administration Atorvastatin Calcium 80 mg 10/04/20 21:00 10/24/20 21:29 Atorvastatin Calcium 80 Mg Tablet PO 80 mg BEDTIME RAGHAVENDRA Administration Enalapril Maleate 20 mg 10/05/20 12:00 10/25/20 07:33 Enalapril Maleate 10 Mg Tablet PO 20 mg BID RAGHAVENDRA Administration Enoxaparin Sodium 40 mg 10/07/20 08:00 10/25/20 07:31 Enoxaparin Sodium 40 Mg/0.4 Ml Syringe SUBCUT 40 mg Q24H RAGHAVENDRA Administration Glipizide 5 mg 10/11/20 09:00 10/25/20 07:32 Glipizide Xl 5 Mg Tab.Er.24 PO 5 mg DAILY RAGHAVENDRA Administration Hydralazine HCl 50 mg 10/13/20 15:00 10/25/20 07:32 Hydralazine Hcl 25 Mg Tablet PO 50 mg TID RAGHAVENDRA Administration Protocol Hydroxyzine HCl 25 mg 09/25/20 19:19 10/05/20 21:11 Hydroxyzine Hcl 25 Mg Tablet PO 25 mg Q8H PRN Administration Restlessness Insulin Human Lispro 0 unit 09/21/20 07:30 10/25/20 07:18 Insulin Lispro 100 Unit/Ml 3 Ml Vial SUBCUT Not Given QIDACHS [facility] Protocol Levothyroxine Sodium 75 mcg 09/21/20 06:30 10/25/20 06:02 Levothyroxine Sodium 75 Mcg Tablet PO 75 mcg DAILY@0630 RAGHAVENDRA Administration Loperamide HCl 2 mg 10/11/20 08:21 10/23/20 21:00 Loperamide Hcl 2 Mg Capsule PO 2 mg Q6H PRN Administration Constipation Metformin HCl 500 mg 10/10/20 17:00 10/25/20 07:33 Metformin Hcl 500 Mg Tablet PO 500 mg BIDWM [facility] Administration Pharmacy Consult 1 each 09/20/20 18:27 Consult Rx Perform Med Rec MISCELLANE ONCE PRN Consult order Sodium Chloride 3 ml 09/21/20 00:00 10/25/20 07:18 0.9 % Sodium Chloride Flush 3 Ml [facility] 25 mg 09/25/20 19:19 10/08/20 21:02 Trazodone Hcl 25 Mg Halftab PO 25 mg BEDTIME PRN Administration Insomnia Labs CBC & Chem 7: 09/27/20 05:26 10/21/20 11:28 Microbiology Microbiology Results: Microbiology 09/21/20 Unknown Urine clean catch - Clean Catch Midstream Urine Culture - Final No growth. Assessment and Plan (1) Communicating hydrocephalus: Problem details: ventricles are moderately enlarged, slightly disproportionate to cortical atrophy which may suggest communicating hydrocephalus. I do not believe this is the case and feel she is a poor shunt candidate. Status: Acute (2) Neurocognitive disorder: Problem details: Start donepezil 5 mg daily Status: Acute (3) Bradycardia: Status: Acute (4) UTI (urinary tract infection): Status: Acute (5) Non-rheumatic aortic stenosis: Status: Acute (6) Atherosclerotic cardiovascular disease: Status: Acute (7) Elevated troponin: Status: Acute (8) Abnormal ECG: Status: Acute (9) Fall: Status: Acute Assessment and Plan: 85-year-old female with a past medical history of hypertension, hyperlipidemia, diabetes, hypothyroidism, CAD with stents presented to the hospital with a chief complaint of fall. Noted to have elevated troponins admitted to the hospital for further management. had guardianship hearing 10/20/2020, but guardianship still pending (see case management note) no changes s/p fall No episode of recurrent fall since admit, using walker for ambulation,No detail information available surrounding her fall at home since patient has cognitive impairment and poor historian initial head CT with ? of subacute vs chronic left precentral gyrus infarct,MRI with no evidence of acute or subacute infarct, but mentioned possible NPH,seen by neuro Dr Tomlinson feels less likely NPH, and not good candidate for ANALYSIS DIRECTOR shunt awaiting guardianship since patient has lack of capacity to make medical decision, seen by Physical therapy and noted to have good functional capacity therefore discharged from physical therapy services, Encourage ambulation. Acute grief Patient grieving over the of her , wants to go home to make arrangements for burial, support provided, continue Ativan for anxiety. CAD/Elevated troponins: Was likely due to hypertension and elevated creatinine, seen by Cardiology they recommend to treat her as stable coronary artery disease, continue asa, metoprolol and statin Diabetes, blood sugars stable continue insulin sliding scale and home medication metformin and glipizide (takes glimepiride at home) HTN, blood pressure on moderate side, on hydralazine 50 mg t.i.d., metoprolol and amlodipine, at home was on hydralazine 25 b.i.d. is still noted to have intermittent high blood pressure readings likely due to anxiety. Will adjust meds further if remains high Disposition patient wishes to be discharged home but due to incompetency waiting for guardianship
[2020-10-25 11:03] LABS: Glucose, Whole Blood 224 mg/dL (60-115)
[2020-10-25] MEDS: Insulin Lispro 100 UNIT/ML 3 ML VIAL SUBCUT ×2 (11:22→20:42)
--- NOTE | 2020-10-25 13:41 | MHC.CM.PN ---
DP Return to court 11/03/20 for Guardian/conservator hearing. The Pt has been updated on the plan. She continues to argue that her being here is not nessessary when she could go to her home. She was reminded again that home is not currently an option, as it has been condemned. CM will follow.
[2020-10-25 16:46] LABS: Glucose, Whole Blood 54 mg/dL (60-115)
[2020-10-25 17:10] LABS: Glucose, Whole Blood 120 mg/dL (60-115)
[2020-10-25 20:20] LABS: Glucose, Whole Blood 160 mg/dL (60-115)
[2020-10-25] MEDS: Atorvastatin Calcium 80 MG TABLET PO (20:42)
[2020-10-25] MEDS: Loperamide HCl 2 MG CAPSULE PO (20:42)
[2020-10-26] VITALS (8 sets, daily range): BP systolic 134–176; BP diastolic 61–80; PULSE 58–82; RESP 18–20; TEMP 36.2–37.1; O2SAT 96–97
[2020-10-26] MEDS: Levothyroxine Sodium 75 MCG TABLET PO (05:50)
[2020-10-26 07:16] LABS: Glucose, Whole Blood 79 mg/dL (60-115)
[2020-10-26] MEDS: hydrALAZINE HCl 25 MG TABLET 50 MG PO ×3 (09:00→20:40)
[2020-10-26] MEDS: Aspirin 81 MG TAB.CHEW PO (09:00)
[2020-10-26] MEDS: glipiZIDE XL 5 MG TAB.ER.24 PO (09:00)
[2020-10-26] MEDS: Enalapril Maleate 10 MG TABLET 20 MG PO ×2 (09:00→20:40)
[2020-10-26] MEDS: Enoxaparin Sodium 40 MG/0.4 ML SYRINGE SUBCUT (09:00)
[2020-10-26] MEDS: amLODIPine Besylate 10 MG TABLET PO (09:00)
[2020-10-26] MEDS: metFORMIN HCl 500 MG TABLET PO ×2 (09:00→17:59)
[2020-10-26 10:58] LABS: Glucose, Whole Blood 213 mg/dL (60-115)
--- NOTE | 2020-10-26 11:07 | P.PNIM_ITS ---
Subjective Subjective Date of Service: 10/26/20 Interval History: Awaiting guardianship. No new issues. She is still frustrated and still insistent on going home and [place] her . Review of Systems No fever some confusion Physical Exam Vital Signs: Vital Signs: Last Vital Signs Temp 97.2 F 10/26/20 11:04 Pulse 82 10/26/20 11:04 Resp 18 10/26/20 11:04 BP 171/78 H 10/26/20 11:04 Pulse Ox 96 10/26/20 11:04 Body Mass Index 24.7 Const: Other: General: AO X 2, no acute distress Resp: CTA bilateral CVS: S1,S2,RRR GI: +BS, NT, no distention Skin: No rash Neuro: motor grossly intact Psych: lack of judgement Objective Data Current Medications Generic Name Dose Route Start Last Admin Trade Name Freq PRN Reason Stop Dose Admin Acetaminophen 650 mg 09/28/20 11:39 10/24/20 09:47 Acetaminophen 325 Mg Tablet PO 650 mg Q6H PRN Administration PAINFEV Amlodipine Besylate 10 mg 09/21/20 09:00 10/25/20 07:32 Amlodipine Besylate 10 Mg Tablet PO 10 mg DAILY RAGHAVENDRA Administration Protocol Aspirin 81 mg 09/21/20 09:00 10/25/20 07:33 Aspirin 81 Mg Tab.Chew PO 81 mg DAILY RAGHAVENDRA Administration Atorvastatin Calcium 80 mg 10/04/20 21:00 10/25/20 20:42 Atorvastatin Calcium 80 Mg Tablet PO 80 mg BEDTIME RAGHAVENDRA Administration Enalapril Maleate 20 mg 10/05/20 12:00 10/25/20 20:43 Enalapril Maleate 10 Mg Tablet PO 20 mg BID RAGHAVENDRA Administration Enoxaparin Sodium 40 mg 10/07/20 08:00 10/25/20 07:31 Enoxaparin Sodium 40 Mg/0.4 Ml Syringe SUBCUT 40 mg Q24H RAGHAVENDRA Administration Glipizide 5 mg 10/11/20 09:00 10/25/20 07:32 Glipizide Xl 5 Mg Tab.Er.24 PO 5 mg DAILY RAGHAVENDRA Administration Hydralazine HCl 50 mg 10/13/20 15:00 10/25/20 20:42 Hydralazine Hcl 25 Mg Tablet PO 50 mg TID RAGHAVENDRA Administration Protocol Hydroxyzine HCl 25 mg 09/25/20 19:19 10/05/20 21:11 Hydroxyzine Hcl 25 Mg Tablet PO 25 mg Q8H PRN Administration Restlessness Insulin Human Lispro 0 unit 09/21/20 07:30 10/26/20 08:35 Insulin Lispro 100 Unit/Ml 3 Ml Vial SUBCUT Not Given QIDACHS [facility] Protocol Levothyroxine Sodium 75 mcg 09/21/20 06:30 10/26/20 05:50 Levothyroxine Sodium 75 Mcg Tablet PO 75 mcg DAILY@0630 [facility] Administration Loperamide HCl 2 mg 10/11/20 08:21 10/25/20 20:42 Loperamide Hcl 2 Mg Capsule PO 2 mg Q6H PRN Administration Constipation Metformin HCl 500 mg 10/10/20 17:00 10/25/20 16:49 Metformin Hcl 500 Mg Tablet PO 500 mg BIDWM RAGHAVENDRA Administration Pharmacy Consult 1 each 09/20/20 18:27 Consult Rx Perform Med Rec MISCELLANE ONCE PRN Consult order Sodium Chloride 3 ml 09/21/20 00:00 10/26/20 01:43 0.9 % Sodium Chloride Flush 3 Ml Syringe IVFLUSH Not Given QSHIFT [facility] Trazodone HCl 25 mg 09/25/20 19:19 10/08/20 21:02 Trazodone Hcl 25 Mg Halftab PO 25 mg BEDTIME PRN Administration Insomnia Labs CBC & Chem 7: 09/27/20 05:26 10/21/20 11:28 Microbiology Microbiology Results: Microbiology 09/21/20 Unknown Urine clean catch - Clean Catch Midstream Urine Culture - Final No growth. Assessment and Plan (1) Communicating hydrocephalus: Status: Acute (2) Neurocognitive disorder: Status: Acute (3) Bradycardia: Status: Acute (4) UTI (urinary tract infection): Status: Acute (5) Non-rheumatic aortic stenosis: Status: Acute (6) Atherosclerotic cardiovascular disease: Status: Acute (7) Elevated troponin: Status: Acute (8) Abnormal ECG: Status: Acute (9) Fall: Status: Acute Assessment and Plan: 85-year-old female with a past medical history of hypertension, hyperlipidemia, diabetes, hypothyroidism, CAD with stents presented to the hospital with a chief complaint of fall. Noted to have elevated troponins admitted to the hospital for further management. had guardianship hearing 10/20/2020, but guardianship still pending (see case management note) no changes s/p fall No episode of recurrent fall since admit, using walker for ambulation,No detail information available surrounding her fall at home since patient has cognitive impairment and poor historian initial head CT with ? of subacute vs chronic left precentral gyrus infarct,MRI with no evidence of acute or subacute infarct, but mentioned possible NPH,seen by neuro Dr Tomlinson feels less likely NPH, and not good candidate for PIPE RACKER shunt awaiting guardianship since patient has lack of capacity to make medical decision, seen by Physical therapy and noted to have good functional capacity therefore discharged from physical therapy services, Encourage ambulation. Acute grief Patient grieving over the of her , wants to go home to make arrangements for burial, support provided, continue Ativan for anxiety. CAD/Elevated troponins: Was likely due to hypertension and elevated creatinine, seen by Cardiology they recommend to treat her as stable coronary artery disease, continue asa, metoprolol and statin Diabetes, blood sugars stable continue insulin sliding scale and home medication metformin and glipizide (takes glimepiride at home) HTN, blood pressure on moderate side, on hydralazine 50 mg t.i.d., metoprolol and amlodipine, at home was on hydralazine 25 b.i.d. is still noted to have intermittent high blood pressure readings likely due to anxiety. Will adjust meds further if remains high Disposition patient wishes to be discharged home but due to incompetency waiting for guardianship. Guardianship hearing scheduled for 11/04/19
[2020-10-26] MEDS: 0.9 % Sodium Chloride Flush 3 ML SYRINGE IVFLUSH (11:24)
[2020-10-26] MEDS: Insulin Lispro 100 UNIT/ML 3 ML VIAL SUBCUT (11:36)
[2020-10-26 16:18] LABS: Glucose, Whole Blood 113 mg/dL (60-115)
[2020-10-26 20:27] LABS: Glucose, Whole Blood 130 mg/dL (60-115)
[2020-10-26] MEDS: Atorvastatin Calcium 80 MG TABLET PO (20:40)
--- NOTE | 2020-10-26 21:09 | P.EN_ITS ---
Event Note Date of Service: 10/26/20 Event Note: Pt case reviewed extensively with hospitalist service case managem ent and legal services full consult to follow
--- NOTE | 2020-10-26 21:09 | PM.EVENT ---
Event Note Date of Service: 10/26/20 Event Note: Pt case reviewed extensively with hospitalist service case management and legal services full consult to follow
[2020-10-26] MEDS: Loperamide HCl 2 MG CAPSULE PO (22:56)
[2020-10-27] VITALS (7 sets, daily range): BP systolic 140–200; BP diastolic 66–83; PULSE 58–88; RESP 18–20; TEMP 36.4–36.9; O2SAT 94–98
[2020-10-27] MEDS: Levothyroxine Sodium 75 MCG TABLET PO (05:20)
[2020-10-27] MEDS: metFORMIN HCl 500 MG TABLET PO ×2 (07:29→17:27)
[2020-10-27] MEDS: hydrALAZINE HCl 25 MG TABLET 50 MG PO ×3 (07:29→20:41)
[2020-10-27] MEDS: Enoxaparin Sodium 40 MG/0.4 ML SYRINGE SUBCUT (07:29)
[2020-10-27] MEDS: Aspirin 81 MG TAB.CHEW PO (07:29)
[2020-10-27] MEDS: Enalapril Maleate 10 MG TABLET 20 MG PO ×2 (07:29→20:38)
[2020-10-27] MEDS: amLODIPine Besylate 10 MG TABLET PO (07:29)
[2020-10-27] MEDS: glipiZIDE XL 5 MG TAB.ER.24 PO (07:29)
[2020-10-27 07:34] LABS: Glucose, Whole Blood 69 mg/dL (60-115)
--- NOTE | 2020-10-27 08:10 | MHC.CM.PN ---
Pts sewer hand, Keenan Mcgarry ([phone]) called at approximately 1400 hours on 10/26/20 informing pt he would like to go to her home to determine what condition it is in. Pt agreed and asked CM to bring her keys to the lobby for the sewer hand to potato picker. Leoncio Mcgarry informed this content writer that he would be meeting the [place] police at the home to assist him and that he planned to return the keys on 10/27/20. CM currently awaiting his call to learn the condition of the pts home and when he will return the keys.
[2020-10-27 08:55] LABS: Creatinine Clr Calc Pharmacy 40.6; Estimated Glomerular Filt Rate 57
[2020-10-27 11:04] LABS: Glucose, Whole Blood 183 mg/dL (60-115)
[2020-10-27] MEDS: Acetaminophen 325 MG TABLET 650 MG PO (11:12)
[2020-10-27] MEDS: Insulin Lispro 100 UNIT/ML 3 ML VIAL SUBCUT ×3 (11:12→20:37)
--- NOTE | 2020-10-27 15:33 | P.PNIM_ITS ---
Subjective Subjective Date of Service: 10/28/20 Interval History: Awaiting guardianship. No new issues. She is stable. Still wants to go home, Physical Exam Vital Signs: Vital Signs: Last Vital Signs Temp 98.1 F 10/27/20 11:02 Pulse 88 10/27/20 11:02 Resp 20 10/27/20 11:02 BP 146/78 H 10/27/20 11:02 Pulse Ox 98 10/27/20 11:02 Body Mass Index 24.7 Const: Other: General: AO X 2, no acute distress Resp: CTA bilateral CVS: S1,S2,RRR GI: +BS, NT, no distention Skin: No rash Neuro: motor grossly intact Psych: lack of judgement Objective Data Current Medications Generic Name Dose Route Start Last Admin Trade Name Freq PRN Reason Stop Dose Admin Acetaminophen 650 mg 09/28/20 11:39 10/27/20 11:12 Acetaminophen 325 Mg Tablet PO 650 mg Q6H PRN Administration PAINFEV Amlodipine Besylate 10 mg 09/21/20 09:00 10/27/20 07:29 Amlodipine Besylate 10 Mg Tablet PO 10 mg DAILY RAGHAVENDRA Administration Protocol Aspirin 81 mg 09/21/20 09:00 10/27/20 07:29 Aspirin 81 Mg Tab.Chew PO 81 mg DAILY RAGHAVENDRA Administration Atorvastatin Calcium 80 mg 10/04/20 21:00 10/26/20 20:40 Atorvastatin Calcium 80 Mg Tablet PO 80 mg BEDTIME RAGHAVENDRA Administration Enalapril Maleate 20 mg 10/05/20 12:00 10/27/20 07:29 Enalapril Maleate 10 Mg Tablet PO 20 mg BID RAGHAVENDRA Administration Enoxaparin Sodium 40 mg 10/07/20 08:00 10/27/20 07:29 Enoxaparin Sodium 40 Mg/0.4 Ml Syringe SUBCUT 40 mg Q24H RAGHAVENDRA Administration Glipizide 5 mg 10/11/20 09:00 10/27/20 07:29 Glipizide Xl 5 Mg Tab.Er.24 PO 5 mg DAILY RAGHAVENDRA Administration Hydralazine HCl 50 mg 10/13/20 15:00 10/27/20 13:59 Hydralazine Hcl 25 Mg Tablet PO 50 mg TID RAGHAVENDRA Administration Protocol Hydroxyzine HCl 25 mg 09/25/20 19:19 10/05/20 21:11 Hydroxyzine Hcl 25 Mg Tablet PO 25 mg Q8H PRN Administration Restlessness Insulin Human Lispro 0 unit 09/21/20 07:30 10/27/20 11:12 Insulin Lispro 100 Unit/Ml 3 Ml Vial SUBCUT 2 unit QIDACHS [facility] Administration Protocol Levothyroxine Sodium 75 mcg 09/21/20 06:30 10/27/20 05:20 Levothyroxine Sodium 75 Mcg Tablet PO 75 mcg DAILY@0630 [facility] Administration Loperamide HCl 2 mg 10/11/20 08:21 10/26/20 22:56 Loperamide Hcl 2 Mg Capsule PO 2 mg Q6H PRN Administration Constipation Metformin HCl 500 mg 10/10/20 17:00 10/27/20 07:29 Metformin Hcl 500 Mg Tablet PO 500 mg BIDWM [facility] Administration Pharmacy Consult 1 each 09/20/20 18:27 Consult Rx Perform Med Rec MISCELLANE ONCE PRN Consult order Sodium Chloride 3 ml 09/21/20 00:00 10/27/20 07:28 0.9 % Sodium Chloride Flush 3 Ml Syringe IVFLUSH Not Given QSHIFT [facility] Trazodone HCl 25 mg 09/25/20 19:19 10/08/20 21:02 Trazodone Hcl 25 Mg Halftab PO 25 mg BEDTIME PRN Administration Insomnia Labs CBC & Chem 7: 09/27/20 05:26 10/27/20 07:49 Microbiology Microbiology Results: Microbiology 09/21/20 Unknown Urine clean catch - Clean Catch Midstream Urine Culture - Final No growth. Assessment and Plan (1) Communicating hydrocephalus: Status: Acute (2) Neurocognitive disorder: Status: Acute (3) Bradycardia: Status: Acute (4) UTI (urinary tract infection): Status: Acute (5) Non-rheumatic aortic stenosis: Status: Acute (6) Atherosclerotic cardiovascular disease: Status: Acute (7) Elevated troponin: Status: Acute (8) Abnormal ECG: Status: Acute (9) Fall: Status: Acute Assessment and Plan: 85-year-old female with a past medical history of hypertension, hyperlipidemia, diabetes, hypothyroidism, CAD with stents presented to the hospital with a chief complaint of fall. Noted to have elevated troponins admitted to the hospital for further management. had guardianship hearing 10/20/2020, but guardianship still pending (see case management note) no changes s/p fall No episode of recurrent fall since admit, using walker for ambulation,No detail information available surrounding her fall at home since patient has cognitive impairment and poor historian initial head CT with ? of subacute vs chronic left precentral gyrus infarct,MRI with no evidence of acute or subacute infarct, but mentioned possible NPH,seen by neuro Dr Tomlinson feels less likely NPH, and not good candidate for OPTICIANRY TEACHER shunt awaiting guardianship since patient has lack of capacity to make medical decision, seen by Physical therapy and noted to have good functional capacity therefore discharged from physical therapy services, Encourage ambulation. Acute grief Patient grieving over the of her , wants to go home to make arrangements for burial, support provided, continue Ativan for anxiety. CAD/Elevated troponins: Was likely due to hypertension and elevated creatinine, seen by Cardiology they recommend to treat her as stable coronary artery disease, continue asa, metoprolol and statin Diabetes, blood sugars stable continue insulin sliding scale and home medication metformin and glipizide (takes glimepiride at home) HTN, blood pressure on moderate side, on hydralazine 50 mg t.i.d., metoprolol and amlodipine, at home was on hydralazine 25 b.i.d. is still noted to have intermittent high blood pressure readings likely due to anxiety. Will adjust meds further if remains high Disposition patient wishes to be discharged home but due to incompetency waiting for guardianship. Guardianship hearing scheduled for 11/04/19
--- NOTE | 2020-10-27 15:41 | MHC.CM.PN ---
DP Court date 11/03/20. Dr Kinney came in to report that he had evaluated Kathleen Kirk. CM will continue to follow.
--- NOTE | 2020-10-27 16:16 | MHC.CM.PN ---
CM RECEIVED A CALL FROM PTS AUTOMOTIVE ALIGNMENT SPECIALIST, RAHUL DAVE WHO REQUESTED TO SPEAK TO THE PT. CM PROVIDED A PHONE NUMBER AND WENT TO PTS ROOM TO ENSURE HE WAS ABLE TO REACH HER. FOLLOWING THEIR CONVERSATION, BAUTISTA SPOKE TO PTS ATTY AGAIN. HE REPORTS HE HAS SEEN THE PTS HOME AND SPOKEN TO THE [place] [employer]. HE REPORTS THERE IS ABSOLUTELY NO WAY PT COULD LIVE THERE UNTIL THE WATER IS RUNNING AND THE HOME IS CLEANED OUT. HE REPORTS THE HEALTH DEPARTMENT WAS ALSO PRESENT WHEN HE WENT TO THE HOME AND THEY BELIEVE THE HOME COULD BE REPAIRED BUT IT WILL TAKE TIME. A SECOND HEARING FOR TEMPORARY GUARDIANSHIP/CONSERVATORSHIP IS SCHEDULED FOR 11/03/20.
[2020-10-27 16:45] LABS: Glucose, Whole Blood 190 mg/dL (60-115)
[2020-10-27] MEDS: 0.9 % Sodium Chloride Flush 3 ML SYRINGE IVFLUSH (17:28)
[2020-10-27 20:28] LABS: Glucose, Whole Blood 161 mg/dL (60-115)
[2020-10-27] MEDS: Atorvastatin Calcium 80 MG TABLET PO (20:37)
[2020-10-28] VITALS (11 sets, daily range): BP systolic 153–187; BP diastolic 70–81; PULSE 57–78; RESP 16–20; TEMP 36.2–37.1; O2SAT 96–98
[2020-10-28] MEDS: Levothyroxine Sodium 75 MCG TABLET PO (06:08)
[2020-10-28 07:16] LABS: Glucose, Whole Blood 83 mg/dL (60-115)
[2020-10-28] MEDS: Enoxaparin Sodium 40 MG/0.4 ML SYRINGE SUBCUT (08:34)
[2020-10-28] MEDS: Aspirin 81 MG TAB.CHEW PO (08:34)
[2020-10-28] MEDS: metFORMIN HCl 500 MG TABLET PO ×2 (08:34→16:41)
[2020-10-28] MEDS: amLODIPine Besylate 10 MG TABLET PO (08:34)
[2020-10-28] MEDS: hydrALAZINE HCl 25 MG TABLET 50 MG PO ×3 (08:35→20:56)
[2020-10-28] MEDS: Enalapril Maleate 10 MG TABLET 20 MG PO ×2 (08:35→20:55)
[2020-10-28] MEDS: glipiZIDE XL 5 MG TAB.ER.24 PO (08:35)
--- NOTE | 2020-10-28 09:53 | HO.PM.IMPN ---
Subjective Subjective Date of Service: 10/28/20 Interval History: Awaiting guardianship. No new issues. She is stable. Still wants to go home, she is not confused Physical Exam Vital Signs: Vital Signs: Last Vital Signs Temp 97.8 F 10/28/20 07:42 Pulse 57 10/28/20 08:35 Resp 17 10/28/20 07:42 BP 164/81 H 10/28/20 08:35 Pulse Ox 97 10/28/20 07:42 Body Mass Index 24.7 Const: Other: General: AO X 3, no acute distress Resp: CTA bilateral CVS: S1,S2,RRR GI: +BS, NT, no distention Skin: No rash Neuro: motor grossly intact Psych: lack of judgement Limitations: no limitations and other limitations (Question if the patient remembers events correctly) Objective Data Current Medications Generic Name Dose Route Start Last Admin Trade Name Freq PRN Reason Stop Dose Admin Acetaminophen 650 mg 09/28/20 11:39 10/27/20 11:12 Acetaminophen 325 Mg Tablet PO 650 mg Q6H PRN Administration PAINFEV Amlodipine Besylate 10 mg 09/21/20 09:00 10/28/20 08:34 Amlodipine Besylate 10 Mg Tablet PO 10 mg DAILY RAGHAVENDRA Administration Protocol Aspirin 81 mg 09/21/20 09:00 10/28/20 08:34 Aspirin 81 Mg Tab.Chew PO 81 mg DAILY RAGHAVENDRA Administration Atorvastatin Calcium 80 mg 10/04/20 21:00 10/27/20 20:37 Atorvastatin Calcium 80 Mg Tablet PO 80 mg BEDTIME RAGHAVENDRA Administration Enalapril Maleate 20 mg 10/05/20 12:00 10/28/20 08:35 Enalapril Maleate 10 Mg Tablet PO 20 mg BID RAGHAVENDRA Administration Enoxaparin Sodium 40 mg 10/07/20 08:00 10/28/20 08:34 Enoxaparin Sodium 40 Mg/0.4 Ml Syringe SUBCUT 40 mg Q24H RAGHAVENDRA Administration Glipizide 5 mg 10/11/20 09:00 10/28/20 08:35 Glipizide Xl 5 Mg Tab.Er.24 PO 5 mg DAILY RAGHAVENDRA Administration Hydralazine HCl 50 mg 10/13/20 15:00 10/28/20 08:35 Hydralazine Hcl 25 Mg Tablet PO 50 mg TID RAGHAVENDRA Administration Protocol Hydroxyzine HCl 25 mg 09/25/20 19:19 10/05/20 21:11 Hydroxyzine Hcl 25 Mg Tablet PO 25 mg Q8H PRN Administration Restlessness Insulin Human Lispro 0 unit 09/21/20 07:30 10/28/20 07:26 Insulin Lispro 100 Unit/Ml 3 Ml Vial SUBCUT Not Given QIDACHS [facility] Protocol Levothyroxine Sodium 75 mcg 09/21/20 06:30 10/28/20 06:08 Levothyroxine Sodium 75 Mcg Tablet PO 75 mcg DAILY@0630 [facility] Administration Loperamide HCl 2 mg 10/11/20 08:21 10/26/20 22:56 Loperamide Hcl 2 Mg Capsule PO 2 mg Q6H PRN Administration Constipation Metformin HCl 500 mg 10/10/20 17:00 10/28/20 08:34 Metformin Hcl 500 Mg Tablet PO 500 mg BIDWM [facility] Administration Pharmacy Consult 1 each 09/20/20 18:27 Consult Rx Perform Med Rec MISCELLANE ONCE PRN Consult order Sodium Chloride 3 ml 09/21/20 00:00 10/28/20 08:37 0.9 % Sodium Chloride Flush 3 Ml Syringe IVFLUSH [facility] Trazodone HCl 25 mg 09/25/20 19:19 10/08/20 21:02 Trazodone Hcl 25 Mg Halftab PO 25 mg BEDTIME PRN Administration Insomnia Labs CBC & Chem 7: 09/27/20 05:26 10/27/20 07:49 Microbiology Microbiology Results: Microbiology 09/21/20 Unknown Urine clean catch - Clean Catch Midstream Urine Culture - Final No growth. Assessment and Plan (1) Communicating hydrocephalus: Status: Acute (2) Neurocognitive disorder: Status: Acute (3) Bradycardia: Status: Acute (4) UTI (urinary tract infection): Status: Acute (5) Non-rheumatic aortic stenosis: Status: Acute (6) Atherosclerotic cardiovascular disease: Status: Acute (7) Elevated troponin: Status: Acute (8) Abnormal ECG: Status: Acute (9) Fall: Status: Acute Assessment and Plan: 85-year-old female with a past medical history of hypertension, hyperlipidemia, diabetes, hypothyroidism, CAD with stents presented to the hospital with a chief complaint of fall. Noted to have elevated troponins admitted to the hospital for further management. had guardianship hearing 10/20/2020, but son at that time declined to be the guardian so a second hearing is scheduled for 11/03/20 s/p fall No episode of recurrent fall since admit, using walker for ambulation, No detail information available surrounding her fall at home since patient has some cognitive impairment and poor historian initial head CT with ? of subacute vs chronic left precentral gyrus infarct, MRI with no evidence of acute or subacute infarct, but mentioned possible NPH, seen by neuro Dr Tomlinson feels less likely NPH, and not good candidate for SUPPLY ASSISTANT shunt and therefore high volume LP was not necessary. I concur with physical therapy that she has good functional capacity therefore discharged from physical therapy services, cognitively she is not that bad and will probably function well with supervsion in a home setting. She is well aware that there are things that need to be fixed at her home before she can move back in. She is hoping to be discharged and go stay with a good friend of 50 years and I don't think that is a bad idea so long the a friend is agreable. MCC should be a last resort as she's likely to be more miserable with inferior quality of life. Continue daily walk, she spend a lot of her time reading now and should continue. Psychiatry evaluation was well apreciated. Acute grief Patient grieving over the of her , wants to go home to make arrangements for burial ( I have no information on burial status0, support provided, continue Ativan for anxiety. CAD/Elevated troponins: Was likely due to hypertension and elevated creatinine, seen by Cardiology they recommend to treat her as stable coronary artery disease, continue asa, metoprolol and statin Diabetes, blood sugars stable continue insulin sliding scale and home medication metformin and glipizide (takes glimepiride at home) HTN, blood pressure on moderate side, on hydralazine 50 mg t.i.d., metoprolol and amlodipine, at home was on hydralazine 25 b.i.d. is still noted to have intermittent high blood pressure readings likely due to anxiety. Will adjust meds further if remains high Disposition patient wishes to be discharged home but due to incompetency waiting for guardianship. Guardianship hearing scheduled for 11/04/19
[2020-10-28 11:05] LABS: Glucose, Whole Blood 162 mg/dL (60-115)
[2020-10-28] MEDS: Insulin Lispro 100 UNIT/ML 3 ML VIAL SUBCUT (11:29)
[2020-10-28 15:42] LABS: Glucose, Whole Blood 89 mg/dL (60-115)
[2020-10-28 20:24] LABS: Glucose, Whole Blood 103 mg/dL (60-115)
[2020-10-28] MEDS: Atorvastatin Calcium 80 MG TABLET PO (20:57)
[2020-10-29] VITALS (10 sets, daily range): BP systolic 156–187; BP diastolic 68–87; PULSE 56–65; RESP 16–18; TEMP 36.2–37.1; O2SAT 94–100
[2020-10-29] MEDS: Levothyroxine Sodium 75 MCG TABLET PO (06:20)
[2020-10-29 07:13] LABS: Glucose, Whole Blood 62 mg/dL (60-115)
[2020-10-29 07:49] LABS: Glucose, Whole Blood 62 mg/dL (60-115)
[2020-10-29] MEDS: glipiZIDE XL 5 MG TAB.ER.24 PO (08:39)
[2020-10-29] MEDS: Enalapril Maleate 10 MG TABLET 20 MG PO ×2 (08:39→21:52)
[2020-10-29] MEDS: Enoxaparin Sodium 40 MG/0.4 ML SYRINGE SUBCUT (08:39)
[2020-10-29] MEDS: amLODIPine Besylate 10 MG TABLET PO (08:40)
[2020-10-29] MEDS: hydrALAZINE HCl 25 MG TABLET 50 MG PO ×3 (08:40→21:52)
[2020-10-29] MEDS: metFORMIN HCl 500 MG TABLET PO ×2 (08:40→16:43)
[2020-10-29] MEDS: Aspirin 81 MG TAB.CHEW PO (08:40)
--- NOTE | 2020-10-29 08:53 | P.PNIM_ITS ---
Subjective Subjective Date of Service: 12/16/20 Interval History: Admitted since 09/20 for fall and has been waiting for guardianship appointment, now plan for 11/03..Has been calmed, cooperative, no new issues Physical Exam Vital Signs: Vital Signs: Last Vital Signs Temp 97.1 F 10/29/20 07:47 Pulse 56 10/29/20 08:40 Resp 16 10/29/20 07:47 BP 160/70 H 10/29/20 08:40 Pulse Ox 96 10/29/20 07:47 Body Mass Index 24.7 Other: General: AO X 3, no acute distress Resp: CTA bilateral CVS: S1,S2,RRR GI: +BS, NT, no distention Skin: No rash Neuro: motor grossly intact Psych: lack of judgement Limitations: no limitations and other limitations (Question if the patient remembers events correctly) Objective Data Current Medications Generic Name Dose Route Start Last Admin Trade Name Freq PRN Reason Stop Dose Admin Acetaminophen 650 mg 09/28/20 11:39 10/27/20 11:12 Acetaminophen 325 Mg Tablet PO 650 mg Q6H PRN Administration PAINFEV Amlodipine Besylate 10 mg 09/21/20 09:00 10/29/20 08:40 Amlodipine Besylate 10 Mg Tablet PO 10 mg DAILY RAGHAVENDRA Administration Protocol Aspirin 81 mg 09/21/20 09:00 10/29/20 08:40 Aspirin 81 Mg Tab.Chew PO 81 mg DAILY RAGHAVENDRA Administration Atorvastatin Calcium 80 mg 10/04/20 21:00 10/28/20 20:57 Atorvastatin Calcium 80 Mg Tablet PO 80 mg BEDTIME RAGHAVENDRA Administration Enalapril Maleate 20 mg 10/05/20 12:00 10/29/20 08:39 Enalapril Maleate 10 Mg Tablet PO 20 mg BID RAGHAVENDRA Administration Enoxaparin Sodium 40 mg 10/07/20 08:00 10/29/20 08:39 Enoxaparin Sodium 40 Mg/0.4 Ml Syringe SUBCUT 40 mg Q24H RAGHAVENDRA Administration Glipizide 5 mg 10/11/20 09:00 10/29/20 08:39 Glipizide Xl 5 Mg Tab.Er.24 PO 5 mg DAILY RAGHAVENDRA Administration Hydralazine HCl 50 mg 10/13/20 15:00 10/29/20 08:40 Hydralazine Hcl 25 Mg Tablet PO 50 mg TID RAGHAVENDRA Administration Protocol Hydroxyzine HCl 25 mg 09/25/20 19:19 10/05/20 21:11 Hydroxyzine Hcl 25 Mg Tablet PO 25 mg Q8H PRN Administration Restlessness Insulin Human Lispro 0 unit 09/21/20 07:30 10/29/20 07:27 Insulin Lispro 100 Unit/Ml 3 Ml Vial SUBCUT Not Given QIDACHS [facility] Protocol Levothyroxine Sodium 75 mcg 09/21/20 06:30 10/29/20 06:20 Levothyroxine Sodium 75 Mcg Tablet PO 75 mcg DAILY@0630 RAGHAVENDRA Administration Loperamide HCl 2 mg 10/11/20 08:21 10/26/20 22:56 Loperamide Hcl 2 Mg Capsule PO 2 mg Q6H PRN Administration Constipation Metformin HCl 500 mg 10/10/20 17:00 10/29/20 08:40 Metformin Hcl 500 Mg Tablet PO 500 mg BIDWM [facility] Administration Pharmacy Consult 1 each 09/20/20 18:27 Consult Rx Perform Med Rec MISCELLANE ONCE PRN Consult order Sodium Chloride 3 ml 09/21/20 00:00 10/29/20 08:39 0.9 % Sodium Chloride Flush 3 Ml Syringe IVFLUSH Not Given QSHIFT [facility] Trazodone HCl 25 mg 09/25/20 19:19 10/08/20 21:02 Trazodone Hcl 25 Mg Halftab PO 25 mg BEDTIME PRN Administration Insomnia Labs CBC & Chem 7: 11/25/20 05:48 12/15/20 06:26 Microbiology Microbiology Results: Microbiology 09/21/20 Unknown Urine clean catch - Clean Catch Midstream Urine Culture - Final No growth. Assessment and Plan (1) Neurocognitive disorder: Status: Acute Assessment and Plan: 85-year-old female with a past medical history of hypertension, hyperlipidemia, diabetes, hypothyroidism, CAD with stents presented on 09/18 with fall, elevated tropto the hospital with a chief complaint of fall. Noted to have elevated trop onins admitted to the hospital for further management. had guardianship hearing 10/20/2020, but son at that time declined to be the guardian so a second hearing is scheduled for 11/03/20 s/p fall No episode of recurrent fall since admit, using walker for ambulation, No detail information available surrounding her fall at home since patient has some cognitive impairment and poor historian initial head CT with ? of subacute vs chronic left precentral gyrus infarct, MRI with no evidence of acute or subacute infarct, but mentioned possible NPH, seen by neuro Dr Tomlinson feels less likely NPH, and not good candidate for ACCOUNT ASSISTANT shunt and therefore high volume LP was not necessary. I concur with physical therapy that she has good functional capacity therefore discharged from physical therapy services, cognitively she is not that bad and will probably function well with supervsion in a home setting. She is well aware that there are things that need to be fixed at her home before she can move back in. She is hoping to be discharged and go stay with a good friend of 50 years and I don't think that is a bad idea so long the a friend is agreable. intermediate should be a last resort as she's likely to be more miserable with inferior quality of life. Continue daily walk, she spend a lot of her time reading now and should continue. Psychiatry evaluation was well apreciated. Acute grief Patient grieving over the of her , wants to go home to make arrangements for burial ( I have no information on burial status0, support provided, continue Ativan for anxiety. CAD/Elevated troponins: Was likely due to hypertension and elevated creatinine, seen by Cardiology they recommend to treat her as stable coronary artery disease, continue asa, metoprolol and statin Diabetes, blood sugars stable continue insulin sliding scale and home medication metformin and glipizide (takes glimepiride at home) HTN, blood pressure on moderate side, on hydralazine 50 mg t.i.d., metoprolol and amlodipine, at home was on hydralazine 25 b.i.d. is still noted to have intermittent high blood pressure readings likely due to anxiety. Will adjust meds further if remains high Disposition patient wishes to be discharged home but due to incompetency waiting for guardianship. Guardianship hearing scheduled for 11/04/19
[2020-10-29 11:03] LABS: Glucose, Whole Blood 250 mg/dL (60-115)
[2020-10-29] MEDS: Insulin Lispro 100 UNIT/ML 3 ML VIAL SUBCUT ×2 (11:29→16:43)
[2020-10-29 15:47] LABS: Glucose, Whole Blood 182 mg/dL (60-115)
[2020-10-29 20:09] LABS: Glucose, Whole Blood 85 mg/dL (60-115)
[2020-10-29] MEDS: Atorvastatin Calcium 80 MG TABLET PO (21:52)
[2020-10-30] VITALS (8 sets, daily range): BP systolic 138–157; BP diastolic 65–90; PULSE 53–73; RESP 16–18; TEMP 36.4–36.8; O2SAT 95–100
[2020-10-30] MEDS: Levothyroxine Sodium 75 MCG TABLET PO (05:58)
[2020-10-30 07:09] LABS: Glucose, Whole Blood 42 mg/dL (60-115)
[2020-10-30 07:40] LABS: Glucose, Whole Blood 94 mg/dL (60-115)
[2020-10-30] MEDS: Enoxaparin Sodium 40 MG/0.4 ML SYRINGE SUBCUT (08:05)
[2020-10-30] MEDS: hydrALAZINE HCl 25 MG TABLET 50 MG PO ×3 (08:06→20:36)
[2020-10-30] MEDS: amLODIPine Besylate 10 MG TABLET PO (08:06)
[2020-10-30] MEDS: Enalapril Maleate 10 MG TABLET 20 MG PO ×2 (08:06→20:36)
[2020-10-30] MEDS: metFORMIN HCl 500 MG TABLET PO ×2 (08:06→16:28)
[2020-10-30] MEDS: Aspirin 81 MG TAB.CHEW PO (08:06)
[2020-10-30] MEDS: glipiZIDE XL 5 MG TAB.ER.24 PO (08:06)
[2020-10-30 09:20] LABS: Glucose Random 126 mg/dL (60-115)
[2020-10-30 11:02] LABS: Glucose, Whole Blood 231 mg/dL (60-115)
[2020-10-30] MEDS: Insulin Lispro 100 UNIT/ML 3 ML VIAL SUBCUT (11:39)
--- NOTE | 2020-10-30 15:12 | MHC.CM.PN ---
CM received a message from pts commercial real estate attorney indicating he would bring pts keys to the hospital tomorrow to drop off for her and would be contacting her via telephone tomorrow afternoon. CM will update pt with above info. Pt has a hearing for temporary guardianship/conservatorship on Friday11/03/20 at 0900 hours.
--- NOTE | 2020-10-30 16:14 | HO.PM.IMPN ---
Subjective Subjective Date of Service: 10/30/20 Interval History: no medical complaints cannot go home as it is deemed unfit for habitation by her town until the septic system is repaired plan to stay with her friend fell through Physical Exam Vital Signs: Vital Signs: Last Vital Signs Temp 98 F 10/30/20 15:06 Pulse 61 10/30/20 15:51 Resp 16 10/30/20 15:06 BP 143/65 H 10/30/20 15:51 Pulse Ox 98 10/30/20 15:06 Body Mass Index 24.7 Gen: in no acute distress HEENT: sclera anicteric, moist mucus membranes Neck: supple Lungs: clear to auscultation bilaterally Heart: regular rate and rhythm, no murmurs Abd: soft, non-tender, non-distended Neuro: alert and oriented x3 Psych: appropriate affect, somewhat questionable judgment Objective Data Current Medications Generic Name Dose Route Start Last Admin Trade Name Freq PRN Reason Stop Dose Admin Acetaminophen 650 mg 09/28/20 11:39 10/27/20 11:12 Acetaminophen 325 Mg Tablet PO 650 mg Q6H PRN Administration PAINFEV Amlodipine Besylate 10 mg 09/21/20 09:00 10/30/20 08:06 Amlodipine Besylate 10 Mg Tablet PO 10 mg DAILY RAGHAVENDRA Administration Protocol Aspirin 81 mg 09/21/20 09:00 10/30/20 08:06 Aspirin 81 Mg Tab.Chew PO 81 mg DAILY RAGHAVENDRA Administration Atorvastatin Calcium 80 mg 10/04/20 21:00 10/29/20 21:52 Atorvastatin Calcium 80 Mg Tablet PO 80 mg BEDTIME RAGHAVENDRA Administration Enalapril Maleate 20 mg 10/05/20 12:00 10/30/20 08:06 Enalapril Maleate 10 Mg Tablet PO 20 mg BID RAGHAVENDRA Administration Enoxaparin Sodium 40 mg 10/07/20 08:00 10/30/20 08:05 Enoxaparin Sodium 40 Mg/0.4 Ml Syringe SUBCUT 40 mg Q24H RAGHAVENDRA Administration Hydralazine HCl 50 mg 10/13/20 15:00 10/30/20 15:51 Hydralazine Hcl 25 Mg Tablet PO 50 mg TID RAGHAVENDRA Administration Protocol Hydroxyzine HCl 25 mg 09/25/20 19:19 10/05/20 21:11 Hydroxyzine Hcl 25 Mg Tablet PO 25 mg Q8H PRN Administration Restlessness Insulin Human Lispro 0 unit 09/21/20 07:30 10/30/20 11:39 Insulin Lispro 100 Unit/Ml 3 Ml Vial SUBCUT 4 unit QIDACHS [facility] Administration Protocol Levothyroxine Sodium 75 mcg 09/21/20 06:30 10/30/20 05:58 Levothyroxine Sodium 75 Mcg Tablet PO 75 mcg DAILY@0630 RAGHAVENDRA Administration Loperamide HCl 2 mg 10/11/20 08:21 10/26/20 22:56 Loperamide Hcl 2 Mg Capsule PO 2 mg Q6H PRN Administration Constipation Metformin HCl 500 mg 10/10/20 17:00 10/30/20 08:06 Metformin Hcl 500 Mg Tablet PO 500 mg BIDWM [facility] Administration Pharmacy Consult 1 each 09/20/20 18:27 Consult Rx Perform Med Rec MISCELLANE ONCE PRN Consult order Sodium Chloride 3 ml 09/21/20 00:00 10/30/20 15:06 0.9 % Sodium Chloride Flush 3 Ml Syringe IVFLUSH Not Given QSHIFT [facility] Trazodone HCl 25 mg 09/25/20 19:19 10/08/20 21:02 Trazodone Hcl 25 Mg Halftab PO 25 mg BEDTIME PRN Administration Insomnia Labs CBC & Chem 7: 09/27/20 05:26 10/30/20 08:37 Microbiology Microbiology Results: Microbiology 09/21/20 Unknown Urine clean catch - Clean Catch Midstream Urine Culture - Final No growth. Assessment and Plan (1) Neurocognitive disorder: Status: Acute Assessment and Plan: hospital d#41 85yo F with HTN, HLD, DM2, hypothyroidism, CAD s/p PCI admitted with falls, elevated troponin # fall - initial head CT with ? subacute v. chronic L precentral gyrus infarct but not evident on MRI; question of NPH on MRI but unlikely per neurologist Dr Tomlinson and LP not recommended - good functional capacity, discharged from PT services # question of cognitive impairment - unable to go home- deemed unfit for habitation until septic system is repaired - awaiting psychiatric consultation # acute grief reaction - grieving over of . counseling support. # elevated Tn-I with underlying CAD - likely due to HTN + ABELARDO (resolved), seen by Cardiology and recommended medical treatment as stable CAD with ASA + statin # HTN - hydralazine, amlodipine, enalapril # DM2 with hypoglycemia - d/c GPZ, continue correction-dose lispro + MTF # hypothyroidism - continue LT4 # VTE ppx - LMWH # dispo - awaiting guardianship/conservatorship hearing 11/03/20
[2020-10-30 16:17] LABS: Glucose, Whole Blood 104 mg/dL (60-115)
[2020-10-30 20:18] LABS: Glucose, Whole Blood 134 mg/dL (60-115)
[2020-10-30] MEDS: Atorvastatin Calcium 80 MG TABLET PO (20:36)
--- NOTE | 2020-10-30 21:01 | P.EN_ITS ---
Event Note Date of Service: 10/30/20 Event Note: Patient's case reviewed with commercial litigation attorney and case management. Patient does understand that she cannot go back to her house in the present condition that her septic system will need to be at a minimum pumped before her house could be habitable and water turned back on
--- NOTE | 2020-10-30 22:18 | MHC.CARE ---
CARE team met with Pt due to consult requested. T/W offered her active listening and support. She expressed her feelings in regards to her grieving process and wanting to return home. Pt was pleasant and thanked T/W for checking in.
[2020-10-31 03:38] VITALS: BP 123/60; PULSE 58; RESP 18; TEMP 36.8; O2SAT 98
[2020-10-31] MEDS: Levothyroxine Sodium 75 MCG TABLET PO (06:24)
[2020-10-31 07:22] LABS: Glucose, Whole Blood 100 mg/dL (60-115)
[2020-10-31 07:24] VITALS: BP 156/70; PULSE 62; RESP 17; TEMP 37.1; O2SAT 98
[2020-10-31] MEDS: Enoxaparin Sodium 40 MG/0.4 ML SYRINGE SUBCUT (09:06)
[2020-10-31] MEDS: hydrALAZINE HCl 25 MG TABLET 50 MG PO ×3 (09:07→21:12)
[2020-10-31] MEDS: metFORMIN HCl 500 MG TABLET PO ×2 (09:07→16:47)
[2020-10-31] MEDS: Aspirin 81 MG TAB.CHEW PO (09:08)
[2020-10-31] MEDS: Enalapril Maleate 10 MG TABLET 20 MG PO ×2 (09:08→21:11)
[2020-10-31] MEDS: amLODIPine Besylate 10 MG TABLET PO (09:08)
[2020-10-31 11:21] LABS: Glucose, Whole Blood 143 mg/dL (60-115)
[2020-10-31 11:25] VITALS: BP 155/70; PULSE 53; RESP 17; TEMP 36.4; O2SAT 96
[2020-10-31 15:18] VITALS: BP 166/73; PULSE 57; RESP 18; TEMP 36.6; O2SAT 98
--- NOTE | 2020-10-31 15:36 | P.PNIM_ITS ---
Subjective Subjective Date of Service: 10/31/20 Interval History: no new events Physical Exam Vital Signs: Vital Signs: Last Vital Signs Temp 98 F 10/31/20 15:18 Pulse 57 10/31/20 15:18 Resp 18 10/31/20 15:18 BP 166/73 H 10/31/20 15:18 Pulse Ox 98 10/31/20 15:18 Body Mass Index 24.7 Gen: in no acute distress Lungs: normal respiratory effort Neuro: alert and oriented x3 Psych: appropriate affect Objective Data Current Medications Generic Name Dose Route Start Last Admin Trade Name Freq PRN Reason Stop Dose Admin Acetaminophen 650 mg 09/28/20 11:39 10/27/20 11:12 Acetaminophen 325 Mg Tablet PO 650 mg Q6H PRN Administration PAINFEV Amlodipine Besylate 10 mg 09/21/20 09:00 10/31/20 09:08 Amlodipine Besylate 10 Mg Tablet PO 10 mg DAILY RAGHAVENDRA Administration Protocol Aspirin 81 mg 09/21/20 09:00 10/31/20 09:08 Aspirin 81 Mg Tab.Chew PO 81 mg DAILY RAGHAVENDRA Administration Atorvastatin Calcium 80 mg 10/04/20 21:00 10/30/20 20:36 Atorvastatin Calcium 80 Mg Tablet PO 80 mg BEDTIME RAGHAVENDRA Administration Enalapril Maleate 20 mg 10/05/20 12:00 10/31/20 09:08 Enalapril Maleate 10 Mg Tablet PO 20 mg BID RAGHAVENDRA Administration Enoxaparin Sodium 40 mg 10/07/20 08:00 10/31/20 09:06 Enoxaparin Sodium 40 Mg/0.4 Ml Syringe SUBCUT 40 mg Q24H RAGHAVENDRA Administration Hydralazine HCl 50 mg 10/13/20 15:00 10/31/20 09:07 Hydralazine Hcl 25 Mg Tablet PO 50 mg TID RAGHAVENDRA Administration Protocol Hydroxyzine HCl 25 mg 09/25/20 19:19 10/05/20 21:11 Hydroxyzine Hcl 25 Mg Tablet PO 25 mg Q8H PRN Administration Restlessness Insulin Human Lispro 0 unit 09/21/20 07:30 10/31/20 11:32 Insulin Lispro 100 Unit/Ml 3 Ml Vial SUBCUT Not Given QIDACHS [facility] Protocol Levothyroxine Sodium 75 mcg 09/21/20 06:30 10/31/20 06:24 Levothyroxine Sodium 75 Mcg Tablet PO 75 mcg DAILY@0630 [facility] Administration Loperamide HCl 2 mg 10/11/20 08:21 10/26/20 22:56 Loperamide Hcl 2 Mg Capsule PO 2 mg Q6H PRN Administration Constipation Metformin HCl 500 mg 10/10/20 17:00 10/31/20 09:07 Metformin Hcl 500 Mg Tablet PO 500 mg BIDWM RAGHAVENDRA Administration Pharmacy Consult 1 each 09/20/20 18:27 Consult Rx Perform Med Rec MISCELLANE ONCE PRN Consult order Sodium Chloride 3 ml 09/21/20 00:00 10/31/20 09:06 0.9 % Sodium Chloride Flush 3 Ml Syringe IVFLUSH Not Given QSHIFT [facility] Trazodone HCl 25 mg 09/25/20 19:19 10/08/20 21:02 Trazodone Hcl 25 Mg Halftab PO 25 mg BEDTIME PRN Administration Insomnia Labs CBC & Chem 7: 09/27/20 05:26 10/30/20 08:37 Microbiology Microbiology Results: Microbiology 09/21/20 Unknown Urine clean catch - Clean Catch Midstream Urine Culture - Final No growth. Assessment and Plan (1) Neurocognitive disorder: Status: Acute Assessment and Plan: hospital d#42 85yo F with HTN, HLD, DM2, hypothyroidism, CAD s/p PCI admitted with falls, elevated troponin # fall - initial head CT with ? subacute v. chronic L precentral gyrus infarct but not evident on MRI; question of NPH on MRI but unlikely per neurologist Dr Tomlinson and LP not recommended - good functional capacity, discharged from PT services # question of cognitive impairment - unable to go home- deemed unfit for habitation until septic system is repaired - discussed with psychiatry- does not need guardianship, just needs a safe place to live at this point while her house is repaired # acute grief reaction - grieving over of . counseling support. # elevated Tn-I with underlying CAD - likely due to HTN + ABELARDO (resolved), seen by Cardiology and recommended medical treatment as stable CAD with ASA + statin; HR too low for B-derrek # HTN - hydralazine, amlodipine, enalapril # DM2 with hypoglycemia - d/c'ed GPZ, continue correction-dose lispro + MTF # hypothyroidism - continue LT4 # VTE ppx - LMWH # dispo - needs safe place to live- discuss with CM
[2020-10-31] MEDS: Insulin Lispro 100 UNIT/ML 3 ML VIAL SUBCUT (16:46)
[2020-10-31 16:50] LABS: Glucose, Whole Blood 175 mg/dL (60-115)
[2020-10-31 19:08] VITALS: BP 176/75; PULSE 66; RESP 20; TEMP 37.1; O2SAT 97
[2020-10-31 20:04] LABS: Glucose, Whole Blood 81 mg/dL (60-115)
[2020-10-31] MEDS: Atorvastatin Calcium 80 MG TABLET PO (21:12)
[2020-10-31 23:40] VITALS: BP 179/74; PULSE 67; RESP 18; TEMP 37.1; O2SAT 95
[2020-11-01 03:48] VITALS: BP 166/75; PULSE 58; RESP 18; TEMP 36.7; O2SAT 93
[2020-11-01] MEDS: Levothyroxine Sodium 75 MCG TABLET PO (06:08)
[2020-11-01 07:06] VITALS: BP 161/56; PULSE 57; RESP 16; TEMP 36.4; O2SAT 96
[2020-11-01 07:19] LABS: Glucose, Whole Blood 107 mg/dL (60-115)
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
[2020-11-01] MEDS: metFORMIN HCl 500 MG TABLET PO ×2 (08:35→17:52)
[2020-11-01] MEDS: Enoxaparin Sodium 40 MG/0.4 ML SYRINGE SUBCUT (08:35)
[2020-11-01] MEDS: Aspirin 81 MG TAB.CHEW PO (08:35)
[2020-11-01] MEDS: amLODIPine Besylate 10 MG TABLET PO (08:36)
[2020-11-01] MEDS: hydrALAZINE HCl 25 MG TABLET 50 MG PO ×3 (08:36→21:48)
[2020-11-01] MEDS: Enalapril Maleate 10 MG TABLET 20 MG PO ×2 (08:36→21:47)
[2020-11-01 11:10] LABS: Glucose, Whole Blood 219 mg/dL (60-115)
[2020-11-01] MEDS: Insulin Lispro 100 UNIT/ML 3 ML VIAL SUBCUT ×2 (11:49→21:48)
[2020-11-01 12:00] VITALS: BP 139/60; RESP 16; TEMP 36.6; O2SAT 99
[2020-11-01 15:36] VITALS: BP 134/76; PULSE 56; RESP 15; TEMP 36.6; O2SAT 97
--- NOTE | 2020-11-01 15:40 | P.PNIM_ITS ---
Subjective Subjective Date of Service: 11/01/20 Interval History: no new events no medical complaints Physical Exam Vital Signs: Vital Signs: Last Vital Signs Temp 97.8 F 11/01/20 15:36 Pulse 56 11/01/20 15:36 Resp 15 11/01/20 15:36 BP 134/76 11/01/20 15:36 Pulse Ox 97 11/01/20 15:36 Body Mass Index 24.7 Gen: in no acute distress Lungs: normal respiratory effort Neuro: alert and oriented x3 Psych: appropriate affect Objective Data Current Medications Generic Name Dose Route Start Last Admin Trade Name Freq PRN Reason Stop Dose Admin Acetaminophen 650 mg 09/28/20 11:39 10/27/20 11:12 Acetaminophen 325 Mg Tablet PO 650 mg Q6H PRN Administration PAINFEV Amlodipine Besylate 10 mg 09/21/20 09:00 11/01/20 08:36 Amlodipine Besylate 10 Mg Tablet PO 10 mg DAILY RAGHAVENDRA Administration Protocol Aspirin 81 mg 09/21/20 09:00 11/01/20 08:35 Aspirin 81 Mg Tab.Chew PO 81 mg DAILY RAGHAVENDRA Administration Atorvastatin Calcium 80 mg 10/04/20 21:00 10/31/20 21:12 Atorvastatin Calcium 80 Mg Tablet PO 80 mg BEDTIME RAGHAVENDRA Administration Enalapril Maleate 20 mg 10/05/20 12:00 11/01/20 08:36 Enalapril Maleate 10 Mg Tablet PO 20 mg BID RAGHAVENDRA Administration Enoxaparin Sodium 40 mg 10/07/20 08:00 11/01/20 08:35 Enoxaparin Sodium 40 Mg/0.4 Ml Syringe SUBCUT 40 mg Q24H RAGHAVENDRA Administration Hydralazine HCl 50 mg 10/13/20 15:00 11/01/20 15:39 Hydralazine Hcl 25 Mg Tablet PO 50 mg TID RAGHAVENDRA Administration Protocol Hydroxyzine HCl 25 mg 09/25/20 19:19 10/05/20 21:11 Hydroxyzine Hcl 25 Mg Tablet PO 25 mg Q8H PRN Administration Restlessness Insulin Human Lispro 0 unit 09/21/20 07:30 11/01/20 11:49 Insulin Lispro 100 Unit/Ml 3 Ml Vial SUBCUT 4 unit QIDACHS [facility] Administration Protocol Levothyroxine Sodium 75 mcg 09/21/20 06:30 11/01/20 06:08 Levothyroxine Sodium 75 Mcg Tablet PO 75 mcg DAILY@0630 RAGHAVENDRA Administration Loperamide HCl 2 mg 10/11/20 08:21 10/26/20 22:56 Loperamide Hcl 2 Mg Capsule PO 2 mg Q6H PRN Administration Constipation Metformin HCl 500 mg 10/10/20 17:00 11/01/20 08:35 Metformin Hcl 500 Mg Tablet PO 500 mg BIDWM RAGHAVENDRA Administration Pharmacy Consult 1 each 09/20/20 18:27 Consult Rx Perform Med Rec MISCELLANE ONCE PRN Consult order Sodium Chloride 3 ml 09/21/20 00:00 11/01/20 15:39 0.9 % Sodium Chloride Flush 3 Ml Syringe IVFLUSH Not Given QSHIFT [facility] Trazodone HCl 25 mg 09/25/20 19:19 10/08/20 21:02 Trazodone Hcl 25 Mg Halftab PO 25 mg BEDTIME PRN Administration Insomnia Labs CBC & Chem 7: 09/27/20 05:26 10/30/20 08:37 Labs: Laboratory Results - last 24 hr 10/31/20 10/31/20 11/01/20 15:56 19:41 07:01 POC Glucose 175 H 81 107 11/01/20 11:01 POC Glucose 219 H Microbiology Microbiology Results: Microbiology 09/21/20 Unknown Urine clean catch - Clean Catch Midstream Urine Culture - Final No growth. Assessment and Plan (1) Neurocognitive disorder: Status: Acute Assessment and Plan: hospital d#43 85yo F with HTN, HLD, DM2, hypothyroidism, CAD s/p PCI admitted with falls, elevated troponin # fall - initial head CT with ? subacute v. chronic L precentral gyrus infarct but not evident on MRI; question of NPH on MRI but unlikely per neurologist Dr Tomlinson and LP not recommended - good functional capacity, discharged from PT services # question of cognitive impairment - unable to go home- deemed unfit for habitation until septic system is repaired - discussed with psychiatry- does not need guardianship, just needs a safe place to live at this point while her house is repaired # acute grief reaction - grieving over of . counseling support. # elevated Tn-I with underlying CAD - likely due to HTN + ABELARDO (resolved), seen by Cardiology and recommended medical treatment as stable CAD with ASA + statin; HR too low for B-derrek # HTN - hydralazine, amlodipine, enalapril # DM2 with hypoglycemia - d/c'ed GPZ, continue correction-dose lispro + MTF # hypothyroidism - continue LT4 # VTE ppx - LMWH # dispo - needs safe place to live- discuss with CM
[2020-11-01 16:39] LABS: Glucose, Whole Blood 93 mg/dL (60-115)
[2020-11-01 19:14] VITALS: BP 167/68; PULSE 60; RESP 18; TEMP 36.3; O2SAT 97
[2020-11-01 20:23] LABS: Glucose, Whole Blood 165 mg/dL (60-115)
[2020-11-01] MEDS: Atorvastatin Calcium 80 MG TABLET PO (21:48)
[2020-11-01 23:27] VITALS: BP 145/72; PULSE 61; RESP 18; TEMP 36.5; O2SAT 96
[2020-11-02 03:21] VITALS: BP 133/73; PULSE 56; RESP 18; TEMP 36.5; O2SAT 96
[2020-11-02] MEDS: Levothyroxine Sodium 75 MCG TABLET PO (05:31)
[2020-11-02 07:14] LABS: Glucose, Whole Blood 94 mg/dL (60-115)
[2020-11-02 07:22] VITALS: BP 149/65; PULSE 59; RESP 16; TEMP 36.3; O2SAT 97
[2020-11-02] MEDS: amLODIPine Besylate 10 MG TABLET PO (10:08)
[2020-11-02] MEDS: hydrALAZINE HCl 25 MG TABLET 50 MG PO ×3 (10:08→20:05)
[2020-11-02] MEDS: Enoxaparin Sodium 40 MG/0.4 ML SYRINGE SUBCUT (10:08)
[2020-11-02] MEDS: Enalapril Maleate 10 MG TABLET 20 MG PO ×2 (10:08→20:05)
[2020-11-02] MEDS: metFORMIN HCl 500 MG TABLET PO ×2 (10:09→17:38)
[2020-11-02] MEDS: Aspirin 81 MG TAB.CHEW PO (10:09)
[2020-11-02 11:08] VITALS: BP 167/71; PULSE 60; RESP 18; TEMP 36.4; O2SAT 97
[2020-11-02 11:21] LABS: Glucose, Whole Blood 282 mg/dL (60-115)
[2020-11-02] MEDS: Insulin Lispro 100 UNIT/ML 3 ML VIAL SUBCUT (11:33)
--- NOTE | 2020-11-02 14:01 | HO.PM.IMPN ---
Subjective Subjective Date of Service: 11/02/20 Interval History: no new events no complaints Physical Exam Vital Signs: Vital Signs: Last Vital Signs Temp 97.6 F 11/02/20 11:08 Pulse 60 11/02/20 11:08 Resp 18 11/02/20 11:08 BP 167/71 H 11/02/20 11:08 Pulse Ox 97 11/02/20 11:08 Body Mass Index 24.7 Gen: in no acute distress Lungs: normal respiratory effort Neuro: alert and oriented x3 Psych: appropriate affect Objective Data Current Medications Generic Name Dose Route Start Last Admin Trade Name Freq PRN Reason Stop Dose Admin Acetaminophen 650 mg 09/28/20 11:39 10/27/20 11:12 Acetaminophen 325 Mg Tablet PO 650 mg Q6H PRN Administration PAINFEV Amlodipine Besylate 10 mg 09/21/20 09:00 11/02/20 10:08 Amlodipine Besylate 10 Mg Tablet PO 10 mg DAILY RAGHAVENDRA Administration Protocol Aspirin 81 mg 09/21/20 09:00 11/02/20 10:09 Aspirin 81 Mg Tab.Chew PO 81 mg DAILY RAGHAVENDRA Administration Atorvastatin Calcium 80 mg 10/04/20 21:00 11/01/20 21:48 Atorvastatin Calcium 80 Mg Tablet PO 80 mg BEDTIME RAGHAVENDRA Administration Enalapril Maleate 20 mg 10/05/20 12:00 11/02/20 10:08 Enalapril Maleate 10 Mg Tablet PO 20 mg BID RAGHAVENDRA Administration Enoxaparin Sodium 40 mg 10/07/20 08:00 11/02/20 10:08 Enoxaparin Sodium 40 Mg/0.4 Ml Syringe SUBCUT 40 mg Q24H RAGHAVENDRA Administration Hydralazine HCl 50 mg 10/13/20 15:00 11/02/20 10:08 Hydralazine Hcl 25 Mg Tablet PO 50 mg TID RAGHAVENDRA Administration Protocol Hydroxyzine HCl 25 mg 09/25/20 19:19 10/05/20 21:11 Hydroxyzine Hcl 25 Mg Tablet PO 25 mg Q8H PRN Administration Restlessness Insulin Human Lispro 0 unit 09/21/20 07:30 11/02/20 11:33 Insulin Lispro 100 Unit/Ml 3 Ml Vial SUBCUT 6 unit QIDACHS [facility] Administration Protocol Levothyroxine Sodium 75 mcg 09/21/20 06:30 11/02/20 05:31 Levothyroxine Sodium 75 Mcg Tablet PO 75 mcg DAILY@0630 RAGHAVENDRA Administration Loperamide HCl 2 mg 10/11/20 08:21 10/26/20 22:56 Loperamide Hcl 2 Mg Capsule PO 2 mg Q6H PRN Administration Constipation Metformin HCl 500 mg 10/10/20 17:00 11/02/20 10:09 Metformin Hcl 500 Mg Tablet PO 500 mg BIDWM RAGHAVENDRA Administration Pharmacy Consult 1 each 09/20/20 18:27 Consult Rx Perform Med Rec MISCELLANE ONCE PRN Consult order Sodium Chloride 3 ml 09/21/20 00:00 11/02/20 10:08 0.9 % Sodium Chloride Flush 3 Ml Syringe IVFLUSH Not Given QSHIFT [facility] Trazodone HCl 25 mg 09/25/20 19:19 10/08/20 21:02 Trazodone Hcl 25 Mg Halftab PO 25 mg BEDTIME PRN Administration Insomnia Labs CBC & Chem 7: 09/27/20 05:26 10/30/20 08:37 Labs: Laboratory Results - last 24 hr 11/01/20 11/01/20 11/02/20 16:29 20:20 06:59 POC Glucose 93 165 H 94 11/02/20 11:16 POC Glucose 282 H Microbiology Microbiology Results: Microbiology 09/21/20 Unknown Urine clean catch - Clean Catch Midstream Urine Culture - Final No growth. Assessment and Plan (1) Neurocognitive disorder: Status: Acute Assessment and Plan: hospital d#44 85yo F with HTN, HLD, DM2, hypothyroidism, CAD s/p PCI admitted with falls, elevated troponin # fall - initial head CT with ? 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 counseling support. # elevated Tn-I with underlying CAD - likely due to HTN + ABELARDO (resolved), seen by Cardiology and recommended medical treatment as stable CAD with ASA + statin; HR too low for B-derrek # HTN - hydralazine, amlodipine, enalapril # DM2 with hypoglycemia - d/c'ed GPZ; continue correction-dose lispro + MTF # hypothyroidism - continue LT4 # VTE ppx - LMWH # dispo - CM working on helping her find a safe place to live [she cannot go home- it is deemed unfit for habitation due to a failed septic system; plan to go home with friend fell through]- considering conservatorship to help her with her finances
--- NOTE | 2020-11-02 14:08 | MHC.CM.PN ---
CM met with pt this morning to discuss possible DC plans. Pt reports she is willing to call her bank to request statements and to work with CM to explore respite or adult foster care programs however she then says if she does not find a place to DC to by the weekend she will sign out and find a place on her own. CM will meet with pt again today to further discuss possible disposition plans
[2020-11-02 15:44] VITALS: BP 142/63; PULSE 52; RESP 18; TEMP 36.8; O2SAT 96
--- NOTE | 2020-11-02 15:57 | MHC.CM.PN ---
CM attempted to contact [facility] ([phone]) to determine if they have any programs that may assist this pt with temporary housing. Call went to . CM will call again tomorrow morning. Pt will have a second hearing with the probate court tomorrow morning at 0900 to determine if a conservator and guardian should be assigned.
[2020-11-02 16:35] LABS: Glucose, Whole Blood 114 mg/dL (60-115)
[2020-11-02 18:47] VITALS: BP 152/67; PULSE 60; RESP 18; TEMP 36.8; O2SAT 98
[2020-11-02] MEDS: Atorvastatin Calcium 80 MG TABLET PO (20:05)
[2020-11-02 20:48] LABS: Glucose, Whole Blood 113 mg/dL (60-115)
[2020-11-02 23:33] VITALS: BP 181/70; PULSE 73; RESP 18; TEMP 36.8; O2SAT 97
[2020-11-03] VITALS (10 sets, daily range): BP systolic 152–170; BP diastolic 58–84; PULSE 56–80; RESP 14–20; TEMP 36.5–37; O2SAT 94–98
[2020-11-03] MEDS: Levothyroxine Sodium 75 MCG TABLET PO (05:43)
[2020-11-03 07:46] LABS: Glucose, Whole Blood 104 mg/dL (60-115)
[2020-11-03] MEDS: Enoxaparin Sodium 40 MG/0.4 ML SYRINGE SUBCUT (09:03)
[2020-11-03] MEDS: metFORMIN HCl 500 MG TABLET PO ×2 (09:04→16:12)
[2020-11-03] MEDS: Enalapril Maleate 10 MG TABLET 20 MG PO ×2 (09:04→21:13)
[2020-11-03] MEDS: Aspirin 81 MG TAB.CHEW PO (09:05)
[2020-11-03] MEDS: hydrALAZINE HCl 25 MG TABLET 50 MG PO ×3 (09:05→21:13)
[2020-11-03] MEDS: amLODIPine Besylate 10 MG TABLET PO (09:05)
[2020-11-03 09:14] LABS: Creatinine Clr Calc Pharmacy 37.1; Estimated Glomerular Filt Rate 51
--- NOTE | 2020-11-03 10:36 | MHC.CM.PN ---
Court date postponed. Hospital county attorney has not been able to secure a temp conservator in the community. New date pending.
[2020-11-03] MEDS: Insulin Lispro 100 UNIT/ML 3 ML VIAL SUBCUT ×2 (11:31→16:12)
[2020-11-03 11:51] LABS: Glucose, Whole Blood 231 mg/dL (60-115)
--- NOTE | 2020-11-03 12:25 | P.PNIM_ITS ---
Subjective Subjective Date of Service: 11/03/20 Interval History: Gen: in no acute distress Lungs: normal respiratory effort Neuro: alert and oriented x3 Psych: appropriate affectpt making calls to try to get her septic system fixed no medical complaints Physical Exam Vital Signs: Vital Signs: Last Vital Signs Temp 98.2 F 11/03/20 11:53 Pulse 66 11/03/20 11:53 Resp 14 11/03/20 11:53 BP 159/65 H 11/03/20 11:53 Pulse Ox 98 11/03/20 11:53 Body Mass Index 24.7 Gen: in no acute distress Lungs: normal respiratory effort Neuro: alert and oriented x3 Psych: appropriate affect Objective Data Current Medications Generic Name Dose Route Start Last Admin Trade Name Freq PRN Reason Stop Dose Admin Acetaminophen 650 mg 09/28/20 11:39 10/27/20 11:12 Acetaminophen 325 Mg Tablet PO 650 mg Q6H PRN Administration PAINFEV Amlodipine Besylate 10 mg 09/21/20 09:00 11/03/20 09:05 Amlodipine Besylate 10 Mg Tablet PO 10 mg DAILY RAGHAVENDRA Administration Protocol Aspirin 81 mg 09/21/20 09:00 11/03/20 09:05 Aspirin 81 Mg Tab.Chew PO 81 mg DAILY RAGHAVENDRA Administration Atorvastatin Calcium 80 mg 10/04/20 21:00 11/02/20 20:05 Atorvastatin Calcium 80 Mg Tablet PO 80 mg BEDTIME RAGHAVENDRA Administration Enalapril Maleate 20 mg 10/05/20 12:00 11/03/20 09:04 Enalapril Maleate 10 Mg Tablet PO 20 mg BID RAGHAVENDRA Administration Enoxaparin Sodium 40 mg 10/07/20 08:00 11/03/20 09:03 Enoxaparin Sodium 40 Mg/0.4 Ml Syringe SUBCUT 40 mg Q24H RAGHAVENDRA Administration Hydralazine HCl 50 mg 10/13/20 15:00 11/03/20 09:05 Hydralazine Hcl 25 Mg Tablet PO 50 mg TID RAGHAVENDRA Administration Protocol Hydroxyzine HCl 25 mg 09/25/20 19:19 10/05/20 21:11 Hydroxyzine Hcl 25 Mg Tablet PO 25 mg Q8H PRN Administration Restlessness Insulin Human Lispro 0 unit 09/21/20 07:30 11/03/20 11:31 Insulin Lispro 100 Unit/Ml 3 Ml Vial SUBCUT 4 unit QIDACHS [facility] Administration Protocol Levothyroxine Sodium 75 mcg 09/21/20 06:30 11/03/20 05:43 Levothyroxine Sodium 75 Mcg Tablet PO 75 mcg DAILY@0630 [facility] Administration Loperamide HCl 2 mg 10/11/20 08:21 10/26/20 22:56 Loperamide Hcl 2 Mg Capsule PO 2 mg Q6H PRN Administration Constipation Metformin HCl 500 mg 10/10/20 17:00 11/03/20 09:04 Metformin Hcl 500 Mg Tablet PO 500 mg BIDWM [facility] Administration Pharmacy Consult 1 each 09/20/20 18:27 Consult Rx Perform Med Rec MISCELLANE ONCE PRN Consult order Sodium Chloride 3 ml 09/21/20 00:00 11/03/20 09:15 0.9 % Sodium Chloride Flush 3 Ml Syringe IVFLUSH Not Given QSHIFT [facility] Trazodone HCl 25 mg 09/25/20 19:19 10/08/20 21:02 Trazodone Hcl 25 Mg Halftab PO 25 mg BEDTIME PRN Administration Insomnia Labs CBC & Chem 7: 09/27/20 05:26 11/03/20 08:06 Microbiology Microbiology Results: Microbiology 09/21/20 Unknown Urine clean catch - Clean Catch Midstream Urine Culture - Final No growth. Assessment and Plan (1) Neurocognitive disorder: Status: Acute Assessment and Plan: hospital d#45 85yo F with HTN, HLD, DM2, hypothyroidism, CAD s/p PCI admitted with falls, elevated troponin # fall - initial head CT with ? 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 counseling support. # elevated Tn-I with underlying CAD - likely due to HTN + ABELARDO (resolved), seen by Cardiology and recommended medical treatment as stable CAD with ASA + statin; HR too low for B-derrek # HTN - hydralazine, amlodipine, enalapril # DM2 with hypoglycemia - d/c'ed GPZ; continue correction-dose lispro + MTF # hypothyroidism - continue LT4 # VTE ppx - LMWH # dispo - CM working on helping her find a safe place to live [she cannot go home- it is deemed unfit for habitation due to a failed septic system; plan to go home with friend fell through]- considering conservatorship to help her with her finances but still trying to identify a possible conservator
--- NOTE | 2020-11-03 12:55 | MHC.CM.PN ---
T/w received a call from the patient in the case management office. The patient is very upset that she is in the hospital and stated there is no reason to keep me here, my house is fine. T/w expressed concerns regarding patients septic system and the patient reported that a man from [place] looked at her septic system at her house and there is nothing wrong with it. T/w questioned who she spoke with and the patient repeated it was the man from [place]. The patient stated her house is fine and that man doesn't know what he is talking about. T/w questioned who the man was and the patient stated, the old man from the [facility]. If I was rich they wouldn't treat me like this. The patient again stated her septic is fine and she just need some stuff to pour down the drains. The patient also expressed a need to get home so she could bury her . This worker provided the patient with the name and number of the stamp redemption clerk representing her.
[2020-11-03 16:02] LABS: Glucose, Whole Blood 165 mg/dL (60-115)
[2020-11-03] MEDS: Loperamide HCl 2 MG CAPSULE PO (19:20)
[2020-11-03 20:00] LABS: Glucose, Whole Blood 73 mg/dL (60-115)
[2020-11-03] MEDS: Atorvastatin Calcium 80 MG TABLET PO (21:13)
[2020-11-04] VITALS (11 sets, daily range): BP systolic 138–174; BP diastolic 64–83; PULSE 57–102; RESP 16–18; TEMP 36.2–36.9; O2SAT 97–99
[2020-11-04] MEDS: Levothyroxine Sodium 75 MCG TABLET PO (06:43)
[2020-11-04 07:53] LABS: Glucose, Whole Blood 95 mg/dL (60-115)
[2020-11-04] MEDS: Enoxaparin Sodium 40 MG/0.4 ML SYRINGE SUBCUT (08:29)
[2020-11-04] MEDS: amLODIPine Besylate 10 MG TABLET PO (08:29)
[2020-11-04] MEDS: metFORMIN HCl 500 MG TABLET PO ×2 (08:29→16:35)
[2020-11-04] MEDS: hydrALAZINE HCl 25 MG TABLET 50 MG PO (08:30)
[2020-11-04] MEDS: Aspirin 81 MG TAB.CHEW PO (08:30)
[2020-11-04] MEDS: Enalapril Maleate 10 MG TABLET 20 MG PO ×2 (08:30→22:42)
[2020-11-04] MEDS: hydrALAZINE HCl 25 MG TABLET PO (09:08)
[2020-11-04 11:17] LABS: Glucose, Whole Blood 249 mg/dL (60-115)
[2020-11-04] MEDS: Insulin Lispro 100 UNIT/ML 3 ML VIAL SUBCUT (11:48)
--- NOTE | 2020-11-04 12:13 | P.PNIM_ITS ---
Subjective Subjective Date of Service: 11/04/20 Interval History: no new medical complaints BP elevated no chest pain or dyspnea Physical Exam Vital Signs: Vital Signs: Last Vital Signs Temp 97.3 F 11/04/20 11:46 Pulse 57 11/04/20 11:46 Resp 18 11/04/20 11:46 BP 149/76 H 11/04/20 11:46 Pulse Ox 99 11/04/20 11:46 Body Mass Index 24.7 Gen: in no acute distress Lungs: normal respiratory effort Neuro: alert and oriented x3 Psych: appropriate affect Objective Data Current Medications Generic Name Dose Route Start Last Admin Trade Name Freq PRN Reason Stop Dose Admin Acetaminophen 650 mg 09/28/20 11:39 10/27/20 11:12 Acetaminophen 325 Mg Tablet PO 650 mg Q6H PRN Administration PAINFEV Amlodipine Besylate 10 mg 09/21/20 09:00 11/04/20 08:29 Amlodipine Besylate 10 Mg Tablet PO 10 mg DAILY RAGHAVENDRA Administration Protocol Aspirin 81 mg 09/21/20 09:00 11/04/20 08:30 Aspirin 81 Mg Tab.Chew PO 81 mg DAILY RAGHAVENDRA Administration Atorvastatin Calcium 80 mg 10/04/20 21:00 11/03/20 21:13 Atorvastatin Calcium 80 Mg Tablet PO 80 mg BEDTIME RAGHAVENDRA Administration Enalapril Maleate 20 mg 10/05/20 12:00 11/04/20 08:30 Enalapril Maleate 10 Mg Tablet PO 20 mg BID RAGHAVENDRA Administration Enoxaparin Sodium 40 mg 10/07/20 08:00 11/04/20 08:29 Enoxaparin Sodium 40 Mg/0.4 Ml Syringe SUBCUT 40 mg Q24H RAGHAVENDRA Administration Hydralazine HCl 75 mg 11/04/20 15:00 Hydralazine Hcl 25 Mg Tablet PO TID RAGHAVENDRA Protocol Hydroxyzine HCl 25 mg 09/25/20 19:19 10/05/20 21:11 Hydroxyzine Hcl 25 Mg Tablet PO 25 mg Q8H PRN Administration Restlessness Insulin Human Lispro 0 unit 09/21/20 07:30 11/04/20 11:48 Insulin Lispro 100 Unit/Ml 3 Ml Vial SUBCUT 4 unit QIDACHS RAGHAVENDRA Administration Protocol Levothyroxine Sodium 75 mcg 09/21/20 06:30 11/04/20 06:43 Levothyroxine Sodium 75 Mcg Tablet PO 75 mcg DAILY@0630 [facility] Administration Loperamide HCl 2 mg 10/11/20 08:21 11/03/20 19:20 Loperamide Hcl 2 Mg Capsule PO 2 mg Q6H PRN Administration Constipation Metformin HCl 500 mg 10/10/20 17:00 11/04/20 08:29 Metformin Hcl 500 Mg Tablet PO 500 mg BIDWM RAGHAVENDRA Administration Pharmacy Consult 1 each 09/20/20 18:27 Consult Rx Perform Med Rec MISCELLANE ONCE PRN Consult order Sodium Chloride 3 ml 09/21/20 00:00 11/04/20 08:29 0.9 % Sodium Chloride Flush 3 Ml Syringe IVFLUSH Not Given QSHIFT [facility] Trazodone HCl 25 mg 09/25/20 19:19 10/08/20 21:02 Trazodone Hcl 25 Mg Halftab PO 25 mg BEDTIME PRN Administration Insomnia Labs CBC & Chem 7: 09/27/20 05:26 11/03/20 08:06 Microbiology Microbiology Results: Microbiology 09/21/20 Unknown Urine clean catch - Clean Catch Midstream Urine Culture - Final No growth. Assessment and Plan (1) Neurocognitive disorder: Status: Acute Assessment and Plan: hospital d#46 85yo F with HTN, HLD, DM2, hypothyroidism, CAD s/p PCI admitted with falls, elevated troponin # fall - initial head CT with ? 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 counseling support. # elevated Tn-I with underlying CAD - likely due to HTN + ABELARDO (resolved), seen by Cardiology and recommended medical treatment as stable CAD with ASA + statin; HR too low for B-derrek # HTN - continue amlodipine, enalapril; increase hydralazine dose # DM2 with hypoglycemia - d/c'ed GPZ; continue correction-dose lispro + MTF # hypothyroidism - continue LT4 # VTE ppx - LMWH # dispo - CM working on helping her find a safe place to live [she cannot go home- it is deemed unfit for habitation due to a failed septic system; plan to go home with friend fell through]- considering conservatorship to help her with her finances but still trying to identify a possible conservator
[2020-11-04 16:03] LABS: Glucose, Whole Blood 134 mg/dL (60-115)
[2020-11-04] MEDS: hydrALAZINE HCl 25 MG TABLET 75 MG PO ×2 (16:35→22:42)
[2020-11-04 20:21] LABS: Glucose, Whole Blood 136 mg/dL (60-115)
[2020-11-04] MEDS: Atorvastatin Calcium 80 MG TABLET PO (22:42)
[2020-11-05] VITALS (10 sets, daily range): BP systolic 129–160; BP diastolic 57–82; PULSE 53–79; RESP 16–18; TEMP 36.1–37.1; O2SAT 95–96
[2020-11-05] MEDS: Levothyroxine Sodium 75 MCG TABLET PO (06:04)
[2020-11-05 07:31] LABS: Glucose, Whole Blood 88 mg/dL (60-115)
[2020-11-05] MEDS: Enalapril Maleate 10 MG TABLET 20 MG PO ×2 (07:36→20:33)
[2020-11-05] MEDS: hydrALAZINE HCl 25 MG TABLET 75 MG PO (07:36)
[2020-11-05] MEDS: Enoxaparin Sodium 40 MG/0.4 ML SYRINGE SUBCUT (07:36)
[2020-11-05] MEDS: metFORMIN HCl 500 MG TABLET PO ×2 (07:37→15:58)
[2020-11-05] MEDS: amLODIPine Besylate 10 MG TABLET PO (07:37)
[2020-11-05] MEDS: Aspirin 81 MG TAB.CHEW PO (07:37)
[2020-11-05 11:19] LABS: Glucose, Whole Blood 160 mg/dL (60-115)
[2020-11-05] MEDS: Insulin Lispro 100 UNIT/ML 3 ML VIAL SUBCUT (11:52)
--- NOTE | 2020-11-05 11:56 | P.PNIM_ITS ---
Subjective Subjective Date of Service: 11/05/20 Interval History: claims she spoke to a septic lizbet and that her system is fine and thus she insists on going home Physical Exam Vital Signs: Vital Signs: Last Vital Signs Temp 97.2 F 11/05/20 07:33 Pulse 57 11/05/20 07:37 Resp 16 11/05/20 07:33 BP 159/78 H 11/05/20 07:37 Pulse Ox 96 11/05/20 07:33 Body Mass Index 24.7 Gen: in no acute distress Lungs: normal respiratory effort Neuro: alert and oriented x3 Psych: appropriate affect Objective Data Current Medications Generic Name Dose Route Start Last Admin Trade Name Freq PRN Reason Stop Dose Admin Acetaminophen 650 mg 09/28/20 11:39 10/27/20 11:12 Acetaminophen 325 Mg Tablet PO 650 mg Q6H PRN Administration PAINFEV Amlodipine Besylate 10 mg 09/21/20 09:00 11/05/20 07:37 Amlodipine Besylate 10 Mg Tablet PO 10 mg DAILY RAGHAVENDRA Administration Protocol Aspirin 81 mg 09/21/20 09:00 11/05/20 07:37 Aspirin 81 Mg Tab.Chew PO 81 mg DAILY RAGHAVENDRA Administration Atorvastatin Calcium 80 mg 10/04/20 21:00 11/04/20 22:42 Atorvastatin Calcium 80 Mg Tablet PO 80 mg BEDTIME RAGHAVENDRA Administration Enalapril Maleate 20 mg 10/05/20 12:00 11/05/20 07:36 Enalapril Maleate 10 Mg Tablet PO 20 mg BID RAGHAVENDRA Administration Enoxaparin Sodium 40 mg 10/07/20 08:00 11/05/20 07:36 Enoxaparin Sodium 40 Mg/0.4 Ml Syringe SUBCUT 40 mg Q24H RAGHAVENDRA Administration Hydralazine HCl 75 mg 11/04/20 15:00 11/05/20 07:36 Hydralazine Hcl 25 Mg Tablet PO 75 mg TID RAGHAVENDRA Administration Protocol Hydroxyzine HCl 25 mg 09/25/20 19:19 10/05/20 21:11 Hydroxyzine Hcl 25 Mg Tablet PO 25 mg Q8H PRN Administration Restlessness Insulin Human Lispro 0 unit 09/21/20 07:30 11/05/20 11:52 Insulin Lispro 100 Unit/Ml 3 Ml Vial SUBCUT 2 unit QIDACHS RAGHAVENDRA Administration Protocol Levothyroxine Sodium 75 mcg 09/21/20 06:30 11/05/20 06:04 Levothyroxine Sodium 75 Mcg Tablet PO 75 mcg DAILY@0630 RAGHAVENDRA Administration Loperamide HCl 2 mg 10/11/20 08:21 11/03/20 19:20 Loperamide Hcl 2 Mg Capsule PO 2 mg Q6H PRN Administration Constipation Metformin HCl 500 mg 10/10/20 17:00 11/05/20 07:37 Metformin Hcl 500 Mg Tablet PO 500 mg BIDWM RAHGAVENDRA Administration Pharmacy Consult 1 each 09/20/20 18:27 Consult Rx Perform Med Rec MISCELLANE ONCE PRN Consult order Sodium Chloride 3 ml 09/21/20 00:00 11/05/20 07:31 0.9 % Sodium Chloride Flush 3 Ml Syringe IVFLUSH Not Given QSHIFT [facility] Trazodone HCl 25 mg 09/25/20 19:19 10/08/20 21:02 Trazodone Hcl 25 Mg Halftab PO 25 mg BEDTIME PRN Administration Insomnia Labs CBC & Chem 7: 09/27/20 05:26 11/03/20 08:06 Microbiology Microbiology Results: Microbiology 09/21/20 Unknown Urine clean catch - Clean Catch Midstream Urine Culture - Final No growth. Assessment and Plan (1) Neurocognitive disorder: Status: Acute Assessment and Plan: hospital d#46 85yo F with HTN, HLD, DM2, hypothyroidism, CAD s/p PCI admitted with falls, elevated troponin # fall - initial head CT with ? 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 counseling support given. # elevated Tn-I with underlying CAD - likely due to HTN + ABELARDO (resolved), seen by Cardiology and recommended medical treatment as stable CAD with ASA + statin; HR too low for B-derrek # HTN - continue amlodipine, enalapril; increase hydralazine dose # DM2 with hypoglycemia - d/c'ed GPZ; continue correction-dose lispro + MTF # hypothyroidism - continue LT4 # VTE ppx - LMWH # dispo - CM working on helping her find a safe place to live [she cannot go home- it is deemed unfit for habitation due to a failed septic system; plan to go home with friend fell through] - considering conservatorship to help her with her finances but still trying to identify a possible conservator - may also require guardianship- discuss with BAUTISTA and Dr Villalpando
[2020-11-05] MEDS: hydrALAZINE HCl 50 MG TABLET 100 MG PO ×2 (15:58→20:33)
[2020-11-05 16:27] LABS: Glucose, Whole Blood 125 mg/dL (60-115)
[2020-11-05 20:03] LABS: Glucose, Whole Blood 133 mg/dL (60-115)
[2020-11-05] MEDS: Atorvastatin Calcium 80 MG TABLET PO (20:33)
[2020-11-06] VITALS (10 sets, daily range): BP systolic 142–170; BP diastolic 60–73; PULSE 60–80; RESP 18–20; TEMP 36.6–37.1; O2SAT 93–98
[2020-11-06] MEDS: Loperamide HCl 2 MG CAPSULE PO ×2 (01:31→08:08)
[2020-11-06 05:25] LABS: Syphilis Screen Nonreactive (Nonreactive)
[2020-11-06 05:41] LABS: Folate 8.8 ng/mL (> or = 4.0); Vitamin B12 258 pg/mL (200-900)
[2020-11-06] MEDS: Levothyroxine Sodium 75 MCG TABLET PO (05:54)
[2020-11-06 07:24] LABS: Glucose, Whole Blood 137 mg/dL (60-115)
[2020-11-06] MEDS: hydrALAZINE HCl 50 MG TABLET 100 MG PO ×3 (08:08→20:09)
[2020-11-06] MEDS: Aspirin 81 MG TAB.CHEW PO (08:08)
[2020-11-06] MEDS: amLODIPine Besylate 10 MG TABLET PO (08:08)
[2020-11-06] MEDS: Enalapril Maleate 10 MG TABLET 20 MG PO ×2 (08:08→20:08)
[2020-11-06] MEDS: metFORMIN HCl 500 MG TABLET PO ×2 (08:08→16:43)
[2020-11-06] MEDS: Enoxaparin Sodium 40 MG/0.4 ML SYRINGE SUBCUT (08:09)
--- NOTE | 2020-11-06 09:44 | MHC.CM.PN ---
Addendum entered by Ruby Tee 11/06/20 11:39: CM RECEIVED A RETURN CALL FROM ARLEN AT [employer]. ARLEN CONFIRMS HE SPOKE TO THE PT ON FRIDAY AND WENT TO HER HOME TO CHECK THE SEPTIC TANK. HE REPORTS FROM THE OUTSIDE OF THE HOME HE CANNOT SEE ANYTHING WRONG. HE REPORTS THE PT AND HER DID HAVE THEM REGULARLY MAINTAINING THE SYSTEM ARLEN REPORTS HE CANNOT CONFIRM THAT THE ENTIRE SYSTEM IS WORKING PROPERLY FROM THE OUTSIDE, HE WOULD NEED TO GET INTO THE HOME TO DO SO. PER HIS REPORT, ARLEN ALSO SPOKE TO THE PTS AGRICULTURAL EXTENSION SPECIALIST, RAHUL DAVE, ON FRIDAY AND RELAYED THE ABOVE INFORMATION AT THAT TIME. Original Note: PT INFORMED CM THAT SHE HAD CALLED [employer] [facility] ON FRIDAY. SHE REPORTS SHE HAS HAD THIS COMPANY CARING FOR HER SEPTIC SYSTEM FOR SEVERAL YEARS. PT REPORTS [employer] WENT TO THE PTS HOME ON FRIDAY AND CONFIRMED THAT THERE IS NOTHING WRONG WITH HER SEPTIC SYSTEM. PT REPORTS SHE KNOWS THAT THE BATHROOM IS NOT WORKING PROPERLY. SHE REPORTS THE TOILET WOULD NOT FLUSH AND SHE HAD TO PUT DRAINO IN THAT AND THE TUB WEEKLY TO GET THEM TO DRAIN. PT REPORTS SHE CAN MANAGE TO HIRE A WELDING MACHINE OPERATOR [employer] TO FIX THE BATHROOM. PT REPORTS SHE IS GOING HOME TODAY SHE CAN ONLY FIX THESE THINGS FROM HOME AND THEY SHOULD NOT TAKE LONG ONCE SHE STARTS THE PROCESS. PT PROVIDED THE PHONE NUMBER FOR [employer] ([phone]) AND GAVE T/W PERMISSION TO CALL AND VERIFY THIS INFORMATION. A VM MESSAGE WAS LEFT FOR [employer] REQUESTING A RETURN CALL TO VERIFY THE PTS SEPTIC SYSTEM IS WORKING PROPERLY.
[2020-11-06 11:24] LABS: Glucose, Whole Blood 182 mg/dL (60-115)
[2020-11-06] MEDS: Insulin Lispro 100 UNIT/ML 3 ML VIAL SUBCUT ×3 (11:45→20:11)
--- NOTE | 2020-11-06 13:32 | HO.PM.IMPN ---
Subjective Subjective Date of Service: 11/06/20 Interval History: the patient was seen and evaluated this morning Laying in bed, feels comfortable Denies any fever, chills or shortness of breath No reported other overnight events. Systemic review: No fever, chills or weakness No chest pain, palpitation No shortness of breath or coughing No abdominal pain, nausea or vomiting No urinary symptoms No any rash or wounds Physical Exam Vital Signs: Vital Signs: Last Vital Signs Temp 97.9 F 11/06/20 11:26 Pulse 60 11/06/20 11:26 Resp 20 11/06/20 11:26 BP 152/66 H 11/06/20 11:26 Pulse Ox 97 11/06/20 11:26 Body Mass Index 24.7 Const: Other: Constitutional : Alert, not in distress Neck : Normal inspection, Supple Cardiovascular : RRR, S1 S2, no lower extremity edema Respiratory : Good bilateral air entry, no crackles, wheezes or rhonchi Gastrointestinal: soft, lax, Normal bowel sounds, Non tender Skin : Warm/Dry, No rash Neurological : Alert , interactive, No focal deficit Objective Data Current Medications Generic Name Dose Route Start Last Admin Trade Name Freq PRN Reason Stop Dose Admin Acetaminophen 650 mg 09/28/20 11:39 10/27/20 11:12 Acetaminophen 325 Mg Tablet PO 650 mg Q6H PRN Administration PAINFEV Amlodipine Besylate 10 mg 09/21/20 09:00 11/06/20 08:08 Amlodipine Besylate 10 Mg Tablet PO 10 mg DAILY RAGHAVENDRA Administration Protocol Aspirin 81 mg 09/21/20 09:00 11/06/20 08:08 Aspirin 81 Mg Tab.Chew PO 81 mg DAILY RAGHAVENDRA Administration Atorvastatin Calcium 80 mg 10/04/20 21:00 11/05/20 20:33 Atorvastatin Calcium 80 Mg Tablet PO 80 mg BEDTIME RAGHAVENDRA Administration Enalapril Maleate 20 mg 10/05/20 12:00 11/06/20 08:08 Enalapril Maleate 10 Mg Tablet PO 20 mg BID RAGHAVENDRA Administration Enoxaparin Sodium 40 mg 10/07/20 08:00 11/06/20 08:09 Enoxaparin Sodium 40 Mg/0.4 Ml Syringe SUBCUT 40 mg Q24H RAGHAVENDRA Administration Hydralazine HCl 100 mg 11/05/20 15:00 11/06/20 08:08 Hydralazine Hcl 50 Mg Tablet PO 100 mg TID [facility] Administration Protocol Hydroxyzine HCl 25 mg 09/25/20 19:19 10/05/20 21:11 Hydroxyzine Hcl 25 Mg Tablet PO 25 mg Q8H PRN Administration Restlessness Insulin Human Lispro 0 unit 09/21/20 07:30 11/06/20 11:45 Insulin Lispro 100 Unit/Ml 3 Ml Vial SUBCUT 2 unit QIDACHS [facility] Administration Protocol Levothyroxine Sodium 75 mcg 09/21/20 06:30 11/06/20 05:54 Levothyroxine Sodium 75 Mcg Tablet PO 75 mcg DAILY@0630 RAGHAVENDRA Administration Loperamide HCl 2 mg 10/11/20 08:21 11/06/20 08:08 Loperamide Hcl 2 Mg Capsule PO 2 mg Q6H PRN Administration Constipation Metformin HCl 500 mg 10/10/20 17:00 11/06/20 08:08 Metformin Hcl 500 Mg Tablet PO 500 mg BIDWM [facility] Administration Pharmacy Consult 1 each 09/20/20 18:27 Consult Rx Perform Med Rec MISCELLANE ONCE PRN Consult order Sodium Chloride 3 ml 09/21/20 00:00 11/06/20 08:06 0.9 % Sodium Chloride Flush 3 Ml Syringe [facility]USH [facility] 25 mg 09/25/20 19:19 10/08/20 21:02 Trazodone Hcl 25 Mg Halftab PO 25 mg BEDTIME PRN Administration Insomnia Labs CBC & Chem 7: 09/27/20 05:26 11/03/20 08:06 Microbiology Microbiology Results: Microbiology 09/21/20 Unknown Urine clean catch - Clean Catch Midstream Urine Culture - Final No growth. Assessment and Plan (1) Neurocognitive disorder: Status: Acute Assessment and Plan: hospital d#47 85yo F with HTN, HLD, DM2, hypothyroidism, CAD s/p PCI admitted with falls, elevated troponin # fall initial head CT with ? 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 # acute grief reaction grieving over of . counseling support given. # elevated Tn-I with underlying CAD likely due to HTN + ABELARDO (resolved), seen by Cardiology and recommended medical treatment as stable CAD with ASA + statin; HR too low for B-derrek # HTN continue amlodipine, enalapril; increase hydralazine dose # DM2 with hypoglycemia d/c'ed GPZ; continue correction-dose lispro + MTF # hypothyroidism continue LT4 # VTE ppx LMWH Dispo - CM working on helping her find a safe place to live [she cannot go home- it is deemed unfit for habitation due to a failed septic system; plan to go home with friend fell through] - considering conservatorship to help her with her finances but still trying to identify a possible conservator - require guardianship
[2020-11-06 16:10] LABS: Glucose, Whole Blood 159 mg/dL (60-115)
[2020-11-06 20:06] LABS: Glucose, Whole Blood 151 mg/dL (60-115)
[2020-11-06] MEDS: Atorvastatin Calcium 80 MG TABLET PO (20:08)
[2020-11-07] VITALS (10 sets, daily range): BP systolic 149–194; BP diastolic 59–88; PULSE 54–80; RESP 18–20; TEMP 36.4–37; O2SAT 93–97
[2020-11-07] MEDS: Levothyroxine Sodium 75 MCG TABLET PO (06:31)
[2020-11-07 07:12] LABS: Glucose, Whole Blood 111 mg/dL (60-115)
[2020-11-07] MEDS: hydrALAZINE HCl 50 MG TABLET 100 MG PO ×3 (08:13→20:06)
[2020-11-07] MEDS: Aspirin 81 MG TAB.CHEW PO (08:13)
[2020-11-07] MEDS: Enalapril Maleate 10 MG TABLET 20 MG PO ×2 (08:13→20:04)
[2020-11-07] MEDS: amLODIPine Besylate 10 MG TABLET PO (08:13)
[2020-11-07] MEDS: Enoxaparin Sodium 40 MG/0.4 ML SYRINGE SUBCUT (08:14)
[2020-11-07] MEDS: metFORMIN HCl 500 MG TABLET PO ×2 (08:14→16:39)
[2020-11-07 11:13] LABS: Glucose, Whole Blood 187 mg/dL (60-115)
[2020-11-07] MEDS: Insulin Lispro 100 UNIT/ML 3 ML VIAL SUBCUT ×2 (12:01→20:06)
--- NOTE | 2020-11-07 14:55 | P.PNIM_ITS ---
Subjective Subjective Date of Service: 11/07/20 Interval History: the patient was seen and evaluated this morning Laying in bed, feels comfortable Denies any fever, chills or shortness of breath No reported other overnight events. Systemic review: No fever, chills or weakness No chest pain, palpitation No shortness of breath or coughing No abdominal pain, nausea or vomiting No urinary symptoms No any rash or wounds Physical Exam 2 Vital Signs: Vital Signs: Last Vital Signs Temp 98.2 F 11/07/20 11:40 Pulse 57 11/07/20 11:40 Resp 18 11/07/20 11:40 BP 167/88 H 11/07/20 11:40 Pulse Ox 96 11/07/20 11:40 Body Mass Index 24.7 Const: Other: Constitutional : Alert, not in distress Neck : Normal inspection, Supple Cardiovascular : RRR, S1 S2, no lower extremity edema Respiratory : Good bilateral air entry, no crackles, wheezes or rhonchi Gastrointestinal: soft, lax, Normal bowel sounds, Non tender Skin : Warm/Dry, No rash Neurological : Alert , interactive, No focal deficit Objective Data Current Medications Generic Name Dose Route Start Last Admin Trade Name Freq PRN Reason Stop Dose Admin Acetaminophen 650 mg 09/28/20 11:39 10/27/20 11:12 Acetaminophen 325 Mg Tablet PO 650 mg Q6H PRN Administration PAINFEV Amlodipine Besylate 10 mg 09/21/20 09:00 11/07/20 08:13 Amlodipine Besylate 10 Mg Tablet PO 10 mg DAILY RAGHAVENDRA Administration Protocol Aspirin 81 mg 09/21/20 09:00 11/07/20 08:13 Aspirin 81 Mg Tab.Chew PO 81 mg DAILY RAGHAVENDRA Administration Atorvastatin Calcium 80 mg 10/04/20 21:00 11/06/20 20:08 Atorvastatin Calcium 80 Mg Tablet PO 80 mg BEDTIME RAGHAVENDRA Administration Enalapril Maleate 20 mg 10/05/20 12:00 11/07/20 08:13 Enalapril Maleate 10 Mg Tablet PO 20 mg BID RAGHAVENDRA Administration Enoxaparin Sodium 40 mg 10/07/20 08:00 11/07/20 08:14 Enoxaparin Sodium 40 Mg/0.4 Ml Syringe SUBCUT 40 mg Q24H RAGHAVENDRA Administration Hydralazine HCl 100 mg 11/05/20 15:00 11/07/20 08:13 Hydralazine Hcl 50 Mg Tablet PO 100 mg TID RAGHAVENDRA Administration Protocol Hydroxyzine HCl 25 mg 09/25/20 19:19 10/05/20 21:11 Hydroxyzine Hcl 25 Mg Tablet PO 25 mg Q8H PRN Administration Restlessness Insulin Human Lispro 0 unit 09/21/20 07:30 11/07/20 12:01 Insulin Lispro 100 Unit/Ml 3 Ml Vial SUBCUT 2 unit QIDACHS [facility] Administration Protocol Levothyroxine Sodium 75 mcg 09/21/20 06:30 11/07/20 06:31 Levothyroxine Sodium 75 Mcg Tablet PO 75 mcg DAILY@0630 RAGHAVENDRA Administration Loperamide HCl 2 mg 10/11/20 08:21 11/06/20 08:08 Loperamide Hcl 2 Mg Capsule PO 2 mg Q6H PRN Administration Constipation Metformin HCl 500 mg 10/10/20 17:00 11/07/20 08:14 Metformin Hcl 500 Mg Tablet PO 500 mg BIDWM RAGHAVENDRA Administration Pharmacy Consult 1 each 09/20/20 18:27 Consult Rx Perform Med Rec MISCELLANE ONCE PRN Consult order Sodium Chloride 3 ml 09/21/20 00:00 11/07/20 08:16 0.9 % Sodium Chloride Flush 3 Ml Syringe IVFLUSH Not Given QSHICHI [facility] Trazodone HCl 25 mg 09/25/20 19:19 10/08/20 21:02 Trazodone Hcl 25 Mg Halftab PO 25 mg BEDTIME PRN Administration Insomnia Labs CBC & Chem 7: 09/27/20 05:26 11/03/20 08:06 Microbiology Microbiology Results: Microbiology 09/21/20 Unknown Urine clean catch - Clean Catch Midstream Urine Culture - Final No growth. Assessment and Plan (1) Neurocognitive disorder: Status: Acute Assessment and Plan: hospital d#47 85yo F with HTN, HLD, DM2, hypothyroidism, CAD s/p PCI admitted with falls, elevated troponin # fall initial head CT with ? 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 # acute grief reaction grieving over of . counseling support given. # elevated Tn-I with underlying CAD likely due to HTN + ABELARDO (resolved), seen by Cardiology and recommended medical treatment as stable CAD with ASA + statin; HR too low for B-derrek # uncontrolled HTN continue amlodipine, enalapril increase hydralazine dose to 100 t.i.d. # DM2 with hypoglycemia d/c'ed GPZ; continue correction-dose lispro + MTF # hypothyroidism continue LT4 # VTE ppx LMWH Dispo - CM working on helping her find a safe place to live [she cannot go home- it is deemed unfit for habitation due to a failed septic system; plan to go home with friend fell through] - considering conservatorship to help her with her finances but still trying to identify a possible conservator - require guardianship
[2020-11-07 16:29] LABS: Glucose, Whole Blood 63 mg/dL (60-115)
[2020-11-07] MEDS: Atorvastatin Calcium 80 MG TABLET PO (20:06)
[2020-11-07 20:07] LABS: Glucose, Whole Blood 163 mg/dL (60-115)
[2020-11-08] VITALS (10 sets, daily range): BP systolic 132–168; BP diastolic 63–92; PULSE 53–68; RESP 17–20; TEMP 36.3–36.7; O2SAT 93–98
[2020-11-08] MEDS: Levothyroxine Sodium 75 MCG TABLET PO (06:10)
[2020-11-08 07:31] LABS: Glucose, Whole Blood 104 mg/dL (60-115)
[2020-11-08] MEDS: Aspirin 81 MG TAB.CHEW PO (08:44)
[2020-11-08] MEDS: amLODIPine Besylate 10 MG TABLET PO (08:44)
[2020-11-08] MEDS: Enoxaparin Sodium 40 MG/0.4 ML SYRINGE SUBCUT (08:44)
[2020-11-08] MEDS: metFORMIN HCl 500 MG TABLET PO ×2 (08:45→16:36)
[2020-11-08] MEDS: hydrALAZINE HCl 50 MG TABLET 100 MG PO ×3 (08:45→22:25)
[2020-11-08] MEDS: Enalapril Maleate 10 MG TABLET 20 MG PO ×2 (08:46→22:24)
[2020-11-08 11:16] LABS: Glucose, Whole Blood 236 mg/dL (60-115)
[2020-11-08] MEDS: Insulin Lispro 100 UNIT/ML 3 ML VIAL SUBCUT (11:42)
--- NOTE | 2020-11-08 13:23 | MHC.CM.PN ---
DP We are seeking Conservatorship. The plan is to eventually discharge to home. CM will follow.
--- NOTE | 2020-11-08 14:08 | HO.PM.IMPN ---
Subjective Subjective Date of Service: 11/08/20 Interval History: the patient was seen and evaluated this morning Laying in bed, feels comfortable Denies any fever, chills or shortness of breath No reported other overnight events. Systemic review: No fever, chills or weakness No chest pain, palpitation No shortness of breath or coughing No abdominal pain, nausea or vomiting No urinary symptoms No any rash or wounds Physical Exam Vital Signs: Vital Signs: Last Vital Signs Temp 98 F 11/08/20 11:47 Pulse 68 11/08/20 13:47 Resp 18 11/08/20 11:47 BP 157/76 H 11/08/20 13:47 Pulse Ox 96 11/08/20 11:47 Body Mass Index 24.7 Const: Other: Constitutional : Alert, not in distress Neck : Normal inspection, Supple Cardiovascular : RRR, S1 S2, no lower extremity edema Respiratory : Good bilateral air entry, no crackles, wheezes or rhonchi Gastrointestinal: soft, lax, Normal bowel sounds, Non tender Skin : Warm/Dry, No rash Neurological : Alert , interactive, No focal deficit Objective Data Current Medications Generic Name Dose Route Start Last Admin Trade Name Freq PRN Reason Stop Dose Admin Acetaminophen 650 mg 09/28/20 11:39 10/27/20 11:12 Acetaminophen 325 Mg Tablet PO 650 mg Q6H PRN Administration PAINFEV Amlodipine Besylate 10 mg 09/21/20 09:00 11/08/20 08:44 Amlodipine Besylate 10 Mg Tablet PO 10 mg DAILY RAGHAVENDRA Administration Protocol Aspirin 81 mg 09/21/20 09:00 11/08/20 08:44 Aspirin 81 Mg Tab.Chew PO 81 mg DAILY RAGHAVENDRA Administration Atorvastatin Calcium 80 mg 10/04/20 21:00 11/07/20 20:06 Atorvastatin Calcium 80 Mg Tablet PO 80 mg BEDTIME RAGHAVENDRA Administration Enalapril Maleate 20 mg 10/05/20 12:00 11/08/20 08:46 Enalapril Maleate 10 Mg Tablet PO 20 mg BID RAGHAVENDRA Administration Enoxaparin Sodium 40 mg 10/07/20 08:00 11/08/20 08:44 Enoxaparin Sodium 40 Mg/0.4 Ml Syringe SUBCUT 40 mg Q24H RAGHAVENDRA Administration Hydralazine HCl 100 mg 11/05/20 15:00 11/08/20 13:47 Hydralazine Hcl 50 Mg Tablet PO 100 mg TID [facility] Administration Protocol Hydroxyzine HCl 25 mg 09/25/20 19:19 10/05/20 21:11 Hydroxyzine Hcl 25 Mg Tablet PO 25 mg Q8H PRN Administration Restlessness Insulin Human Lispro 0 unit 09/21/20 07:30 11/08/20 11:42 Insulin Lispro 100 Unit/Ml 3 Ml Vial SUBCUT 4 unit QIDACHS [facility] Administration Protocol Levothyroxine Sodium 75 mcg 09/21/20 06:30 11/08/20 06:10 Levothyroxine Sodium 75 Mcg Tablet PO 75 mcg DAILY@0630 RAGHAVENDRA Administration Loperamide HCl 2 mg 10/11/20 08:21 11/06/20 08:08 Loperamide Hcl 2 Mg Capsule PO 2 mg Q6H PRN Administration Constipation Metformin HCl 500 mg 10/10/20 17:00 11/08/20 08:45 Metformin Hcl 500 Mg Tablet PO 500 mg BIDWM [facility] Administration Pharmacy Consult 1 each 09/20/20 18:27 Consult Rx Perform Med Rec MISCELLANE ONCE PRN Consult order Sodium Chloride 3 ml 09/21/20 00:00 11/08/20 08:44 0.9 % Sodium Chloride Flush 3 Ml Syringe [facility]FLUSH [facility] 25 mg 09/25/20 19:19 10/08/20 21:02 Trazodone Hcl 25 Mg Halftab PO 25 mg BEDTIME PRN Administration Insomnia Labs CBC & Chem 7: 09/27/20 05:26 11/03/20 08:06 Microbiology Microbiology Results: Microbiology 09/21/20 Unknown Urine clean catch - Clean Catch Midstream Urine Culture - Final No growth. Assessment and Plan (1) Neurocognitive disorder: Status: Acute Assessment and Plan: hospital d#47 85yo F with HTN, HLD, DM2, hypothyroidism, CAD s/p PCI admitted with falls, elevated troponin # fall initial head CT with ? 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 # acute grief reaction grieving over of . counseling support given. # elevated Tn-I with underlying CAD likely due to HTN + ABELARDO (resolved), seen by Cardiology and recommended medical treatment as stable CAD with ASA + statin; HR too low for B-derrek # uncontrolled HTN continue amlodipine, enalapril increase hydralazine dose to 100 t.i.d. # DM2 with hypoglycemia d/c'ed GPZ; continue correction-dose lispro + MTF # hypothyroidism continue LT4 # VTE ppx LMWH Dispo - CM working on helping her find a safe place to live [she cannot go home- it is deemed unfit for habitation due to a failed septic system; plan to go home with friend fell through] - considering conservatorship to help her with her finances but still trying to identify a possible conservator - require guardianship
[2020-11-08 16:22] LABS: Glucose, Whole Blood 150 mg/dL (60-115)
[2020-11-08] MEDS: 0.9 % Sodium Chloride Flush 3 ML SYRINGE IVFLUSH (16:36)
[2020-11-08 20:07] LABS: Glucose, Whole Blood 126 mg/dL (60-115)
[2020-11-08] MEDS: Atorvastatin Calcium 80 MG TABLET PO (22:24)
[2020-11-09] VITALS (10 sets, daily range): BP systolic 141–176; BP diastolic 60–92; PULSE 63–70; RESP 18; TEMP 36.2–37.2; O2SAT 93–98
[2020-11-09] MEDS: Levothyroxine Sodium 75 MCG TABLET PO (05:53)
[2020-11-09 07:08] LABS: Glucose, Whole Blood 117 mg/dL (60-115)
[2020-11-09] MEDS: amLODIPine Besylate 10 MG TABLET PO (08:52)
[2020-11-09] MEDS: hydrALAZINE HCl 50 MG TABLET 100 MG PO ×3 (08:52→20:05)
[2020-11-09] MEDS: metFORMIN HCl 500 MG TABLET PO ×2 (08:52→16:39)
[2020-11-09] MEDS: Enoxaparin Sodium 40 MG/0.4 ML SYRINGE SUBCUT (08:52)
[2020-11-09] MEDS: Enalapril Maleate 10 MG TABLET 20 MG PO ×2 (08:53→20:10)
[2020-11-09] MEDS: Aspirin 81 MG TAB.CHEW PO (08:53)
[2020-11-09 11:02] LABS: Glucose, Whole Blood 165 mg/dL (60-115)
[2020-11-09] MEDS: Insulin Lispro 100 UNIT/ML 3 ML VIAL SUBCUT (12:13)
--- NOTE | 2020-11-09 14:07 | HO.PM.IMPN ---
Subjective Subjective Date of Service: 11/09/20 Interval History: the patient was seen and evaluated this morning Sitting in her chair, feels comfortable Denies any fever, chills or shortness of breath No reported other overnight events. Systemic review: No fever, chills or weakness No chest pain, palpitation No shortness of breath or coughing No abdominal pain, nausea or vomiting No urinary symptoms No any rash or wounds Physical Exam Vital Signs: Vital Signs: Last Vital Signs Temp 97.1 F 11/09/20 07:41 Pulse 63 11/09/20 08:53 Resp 18 11/09/20 07:41 BP 149/68 H 11/09/20 08:53 Pulse Ox 97 11/09/20 07:41 Body Mass Index 24.7 Const: Other: Constitutional : Alert, not in distress Neck : Normal inspection, Supple Cardiovascular : RRR, S1 S2, no lower extremity edema Respiratory : Good bilateral air entry, no crackles, wheezes or rhonchi Gastrointestinal: soft, lax, Normal bowel sounds, Non tender Skin : Warm/Dry, No rash Neurological : Alert , interactive, No focal deficit Objective Data Current Medications Generic Name Dose Route Start Last Admin Trade Name Freq PRN Reason Stop Dose Admin Acetaminophen 650 mg 09/28/20 11:39 10/27/20 11:12 Acetaminophen 325 Mg Tablet PO 650 mg Q6H PRN Administration PAINFEV Amlodipine Besylate 10 mg 09/21/20 09:00 11/09/20 08:52 Amlodipine Besylate 10 Mg Tablet PO 10 mg DAILY RAGHAVENDRA Administration Protocol Aspirin 81 mg 09/21/20 09:00 11/09/20 08:53 Aspirin 81 Mg Tab.Chew PO 81 mg DAILY RAGHAVENDRA Administration Atorvastatin Calcium 80 mg 10/04/20 21:00 11/08/20 22:24 Atorvastatin Calcium 80 Mg Tablet PO 80 mg BEDTIME RAGHAVENDRA Administration Enalapril Maleate 20 mg 10/05/20 12:00 11/09/20 08:53 Enalapril Maleate 10 Mg Tablet PO 20 mg BID RAGHAVENDRA Administration Enoxaparin Sodium 40 mg 10/07/20 08:00 11/09/20 08:52 Enoxaparin Sodium 40 Mg/0.4 Ml Syringe SUBCUT 40 mg Q24H RAGHAVENDRA Administration Hydralazine HCl 100 mg 11/05/20 15:00 11/09/20 08:52 Hydralazine Hcl 50 Mg Tablet PO 100 mg TID [facility] Administration Protocol Hydroxyzine HCl 25 mg 09/25/20 19:19 10/05/20 21:11 Hydroxyzine Hcl 25 Mg Tablet PO 25 mg Q8H PRN Administration Restlessness Insulin Human Lispro 0 unit 09/21/20 07:30 11/09/20 12:13 Insulin Lispro 100 Unit/Ml 3 Ml Vial SUBCUT 2 unit QIDACHS [facility] Administration Protocol Levothyroxine Sodium 75 mcg 09/21/20 06:30 11/09/20 05:53 Levothyroxine Sodium 75 Mcg Tablet PO 75 mcg DAILY@0630 [facility] Administration Loperamide HCl 2 mg 10/11/20 08:21 11/06/20 08:08 Loperamide Hcl 2 Mg Capsule PO 2 mg Q6H PRN Administration Constipation Metformin HCl 500 mg 10/10/20 17:00 11/09/20 08:52 Metformin Hcl 500 Mg Tablet PO 500 mg BIDWM [facility] Administration Pharmacy Consult 1 each 09/20/20 18:27 Consult Rx Perform Med Rec MISCELLANE ONCE PRN Consult order Sodium Chloride 3 ml 09/21/20 00:00 11/09/20 08:53 0.9 % Sodium Chloride Flush 3 Ml Syringe IVFLUSH Not Given QSHICHI [facility] Trazodone HCl 25 mg 09/25/20 19:19 10/08/20 21:02 Trazodone Hcl 25 Mg Halftab PO 25 mg BEDTIME PRN Administration Insomnia Labs CBC & Chem 7: 09/27/20 05:26 11/03/20 08:06 Microbiology Microbiology Results: Microbiology 09/21/20 Unknown Urine clean catch - Clean Catch Midstream Urine Culture - Final No growth. Assessment and Plan (1) Neurocognitive disorder: Status: Acute Assessment and Plan: hospital d#47 85yo F with HTN, HLD, DM2, hypothyroidism, CAD s/p PCI admitted with falls, elevated troponin # cognitive impairment Evaluated by psychiatry- does need guardianship Temp. # uncontrolled HTN Better controlled today continue amlodipine, enalapril increase hydralazine dose to 100 t.i.d. # fall initial head CT with ? 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 counseling support given. # elevated Tn-I with underlying CAD likely due to HTN + ABELARDO (resolved) seen by Cardiology and recommended medical treatment as stable CAD with ASA + statin; HR too low for B-derrek # DM2 with hypoglycemia d/c'ed GPZ; continue correction-dose lispro + MTF # hypothyroidism continue LT4 # VTE ppx LMWH Dispo - CM working on helping her find a safe place to live [she cannot go home- it is deemed unfit for habitation due to a failed septic system; plan to go home with friend fell through] - considering conservatorship to help her with her finances but still trying to identify a possible conservator - require guardianship
--- NOTE | 2020-11-09 15:39 | MHC.CM.PN ---
Addendum entered by Ruby Tee 11/09/20 16:14: Leoncio Fontenotleroy picked up pts bag of keys at 1600 hours today. He will attempt to gain access to pts home this afternoon and return the keys tomorrow or over the weekend. Pt is aware. Original Note: CM met with pt for check in. pt reports she is going crazy she reports she cannot stand being in the hospital any longer. Pt reports she wants to go home and is considering signing out AMA. Pt reports some people have told her she could sign out but she would have to find someone to pick her up. pt als reports she does not have any pants with her. Pt was made aware her mess cook, Keenan Mcgarry, will be coming in around 1545 today to parts picker her keys. He is going to try to gain entrance to her home for a second time. Leoncio Mcgarry indicated if he is able to gain access to the home, Yayo from pts septic maintenance company, will meet him there to assess the situation. Pt made aware of this as well. Currently DC plan is TBD. Hearing to be scheduled once a willing guardian/conservator is located.
[2020-11-09 16:04] LABS: Glucose, Whole Blood 96 mg/dL (60-115)
[2020-11-09 19:58] LABS: Glucose, Whole Blood 125 mg/dL (60-115)
[2020-11-09] MEDS: Atorvastatin Calcium 80 MG TABLET PO (20:04)
[2020-11-10] MEDS: Levothyroxine Sodium 75 MCG TABLET PO (05:39)
[2020-11-10 07:10] VITALS: BP 172/69; PULSE 62; RESP 20; TEMP 36.1; O2SAT 96
[2020-11-10 07:44] LABS: Glucose, Whole Blood 115 mg/dL (60-115)
[2020-11-10] MEDS: metFORMIN HCl 500 MG TABLET PO ×2 (09:35→16:57)
[2020-11-10] MEDS: Aspirin 81 MG TAB.CHEW PO (09:35)
[2020-11-10] MEDS: Enalapril Maleate 10 MG TABLET 20 MG PO ×2 (09:35→21:09)
[2020-11-10] MEDS: hydrALAZINE HCl 50 MG TABLET 100 MG PO ×3 (09:35→21:09)
[2020-11-10] MEDS: amLODIPine Besylate 10 MG TABLET PO (09:36)
[2020-11-10] MEDS: Enoxaparin Sodium 40 MG/0.4 ML SYRINGE SUBCUT (09:36)
[2020-11-10] MEDS: hydroCHLOROthiazide 25 MG TABLET PO (09:36)
[2020-11-10 09:45] LABS: Estimated Glomerular Filt Rate 59
[2020-11-10 11:18] LABS: Glucose, Whole Blood 218 mg/dL (60-115)
[2020-11-10 11:19] VITALS: BP 164/79; PULSE 64; RESP 20; TEMP 36.4; O2SAT 96
--- NOTE | 2020-11-10 11:37 | MHC.CM.PN ---
DP met with Pt. She states that the Septic tank has been cleared. She is calling her forest examiner, Keenan Gómez. She is requesting that he arrange for a lean manufacturing engineer. The septic problem must be inside. She would like to have it fixed. She would like to leave this weekend. CM will follow.
[2020-11-10] MEDS: Insulin Lispro 100 UNIT/ML 3 ML VIAL SUBCUT (12:21)
--- NOTE | 2020-11-10 12:46 | HO.PM.IMPN ---
Subjective Subjective Date of Service: 11/10/20 Interval History: the patient was seen and evaluated this morning Sitting in her chair, feels comfortable next [place] blood pressure still running on the higher side Denies any fever, chills or shortness of breath No reported other overnight events. Systemic review: No fever, chills or weakness No chest pain, palpitation No shortness of breath or coughing No abdominal pain, nausea or vomiting No urinary symptoms No any rash or wounds Physical Exam Vital Signs: Vital Signs: Last Vital Signs Temp 97.5 F 11/10/20 11:19 Pulse 64 11/10/20 11:19 Resp 20 11/10/20 11:19 BP 164/79 H 11/10/20 11:19 Pulse Ox 96 11/10/20 11:19 Body Mass Index 24.7 Const: Other: Constitutional : Alert, not in distress Neck : Normal inspection, Supple Cardiovascular : RRR, S1 S2, no lower extremity edema Respiratory : Good bilateral air entry, no crackles, wheezes or rhonchi Gastrointestinal: soft, lax, Normal bowel sounds, Non tender Skin : Warm/Dry, No rash Neurological : Alert , interactive, No focal deficit Objective Data Current Medications Generic Name Dose Route Start Last Admin Trade Name Freq PRN Reason Stop Dose Admin Acetaminophen 650 mg 09/28/20 11:39 10/27/20 11:12 Acetaminophen 325 Mg Tablet PO 650 mg Q6H PRN Administration PAINFEV Amlodipine Besylate 10 mg 09/21/20 09:00 11/10/20 09:36 Amlodipine Besylate 10 Mg Tablet PO 10 mg DAILY RAGHAVENDRA Administration Protocol Aspirin 81 mg 09/21/20 09:00 11/10/20 09:35 Aspirin 81 Mg Tab.Chew PO 81 mg DAILY RAGHAVENDRA Administration Atorvastatin Calcium 80 mg 10/04/20 21:00 11/09/20 20:04 Atorvastatin Calcium 80 Mg Tablet PO 80 mg BEDTIME RAGHAVENDRA Administration Enalapril Maleate 20 mg 10/05/20 12:00 11/10/20 09:35 Enalapril Maleate 10 Mg Tablet PO 20 mg BID RAGHAVENDRA Administration Enoxaparin Sodium 40 mg 10/07/20 08:00 11/10/20 09:36 Enoxaparin Sodium 40 Mg/0.4 Ml Syringe SUBCUT 40 mg Q24H RAGHAVENDRA Administration Hydralazine HCl 100 mg 11/05/20 15:00 11/10/20 09:35 Hydralazine Hcl 50 Mg Tablet PO 100 mg TID [facility] Administration Protocol Hydrochlorothiazide 25 mg 11/10/20 09:00 11/10/20 09:36 Hydrochlorothiazide 25 Mg Tablet PO 25 mg DAILY [facility] Administration Protocol Hydroxyzine HCl 25 mg 09/25/20 19:19 10/05/20 21:11 Hydroxyzine Hcl 25 Mg Tablet PO 25 mg Q8H PRN Administration Restlessness Insulin Human Lispro 0 unit 09/21/20 07:30 11/10/20 12:21 Insulin Lispro 100 Unit/Ml 3 Ml Vial SUBCUT 4 unit QIDACHS [facility] Administration Protocol Levothyroxine Sodium 75 mcg 09/21/20 06:30 11/10/20 05:39 Levothyroxine Sodium 75 Mcg Tablet PO 75 mcg DAILY@0630 [facility] Administration Loperamide HCl 2 mg 10/11/20 08:21 11/06/20 08:08 Loperamide Hcl 2 Mg Capsule PO 2 mg Q6H PRN Administration Constipation Metformin HCl 500 mg 10/10/20 17:00 11/10/20 09:35 Metformin Hcl 500 Mg Tablet PO 500 mg BIDWM [facility] Administration Pharmacy Consult 1 each 09/20/20 18:27 Consult Rx Perform Med Rec MISCELLANE ONCE PRN Consult order Sodium Chloride 3 ml 09/21/20 00:00 11/10/20 09:35 0.9 % Sodium Chloride Flush 3 Ml Syringe IVFLUSH Not Given QSHIFT [facility] Trazodone HCl 25 mg 09/25/20 19:19 10/08/20 21:02 Trazodone Hcl 25 Mg Halftab PO 25 mg BEDTIME PRN Administration Insomnia Labs CBC & Chem 7: 09/27/20 05:26 11/10/20 08:49 Microbiology Microbiology Results: Microbiology 09/21/20 Unknown Urine clean catch - Clean Catch Midstream Urine Culture - Final No growth. Assessment and Plan (1) Neurocognitive disorder: Status: Acute Assessment and Plan: hospital d#47 85yo F with HTN, HLD, DM2, hypothyroidism, CAD s/p PCI admitted with falls, elevated troponin # cognitive impairment Evaluated by psychiatry- does need guardianship Temp. # uncontrolled HTN Still elevated continue amlodipine, enalapril hydralazine dose to 100 t.i.d. To add hydrochlorothiazide and monitor blood pressure # fall initial head CT with ? 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 counseling support given. # elevated Tn-I with underlying CAD likely due to HTN + ABELARDO (resolved) seen by Cardiology and recommended medical treatment as stable CAD with ASA + statin; HR too low for B-derrek # DM2 with hypoglycemia d/c'ed GPZ; continue correction-dose lispro + MTF # hypothyroidism continue LT4 # VTE ppx LMWH Dispo - CM working on helping her find a safe place to live [she cannot go home- it is deemed unfit for habitation due to a failed septic system; plan to go home with friend fell through] - considering conservatorship to help her with her finances but still trying to identify a possible conservator - require guardianship
--- NOTE | 2020-11-10 13:46 | MHC.CM.PN ---
Placed a call to Keenan Gómez, the Pts Baggage Agent. Requested a return call to the patient. The Pt had called for an update on the status of the [place] house plumbing. A call back to CM re status of home was also requested. CM will continue to follow.
[2020-11-10 15:53] VITALS: BP 163/61; PULSE 57; RESP 18; TEMP 36.3; O2SAT 96
--- NOTE | 2020-11-10 16:07 | MHC.CM.PN ---
CM note A return call was received from Keenan Gómez. It was a long conversation about the barriers to discharge. Reported conversation to the patient. HOUSE locked can not enter. Funds to pay for Ground Operations Crew Member and Sales Associate Fishing are needed. Mrs Pressley will call Yayo, of [employer]. She plans to ask him to look at the plumbing in the house and fix it. She will also ask him to check on the water; because it was turned off when the [place] were sent to the hospital. She has agreed to pay for this work; but she thinks that Yayo will not accept. cm will follow
[2020-11-10 16:24] LABS: Glucose, Whole Blood 90 mg/dL (60-115)
[2020-11-10 16:56] VITALS: BP 163/61; PULSE 57
[2020-11-10 20:23] LABS: Glucose, Whole Blood 123 mg/dL (60-115)
[2020-11-10 21:09] VITALS: BP 163/61; PULSE 57
[2020-11-10] MEDS: Atorvastatin Calcium 80 MG TABLET PO (21:09)
[2020-11-11] VITALS: BP 152/74; PULSE 64; RESP 18; TEMP 36.9; O2SAT 96
[2020-11-11 04:01] VITALS: BP 145/79; PULSE 59; RESP 18; TEMP 36.6; O2SAT 96
[2020-11-11] MEDS: Levothyroxine Sodium 75 MCG TABLET PO (05:21)
[2020-11-11 07:38] LABS: Glucose, Whole Blood 123 mg/dL (60-115)
[2020-11-11] MEDS: hydroCHLOROthiazide 25 MG TABLET PO (07:50)
[2020-11-11] MEDS: Enalapril Maleate 10 MG TABLET 20 MG PO ×2 (07:50→21:00)
[2020-11-11] MEDS: hydrALAZINE HCl 50 MG TABLET 100 MG PO ×3 (07:50→21:00)
[2020-11-11] MEDS: metFORMIN HCl 500 MG TABLET PO ×2 (07:50→17:19)
[2020-11-11] MEDS: Aspirin 81 MG TAB.CHEW PO (07:51)
[2020-11-11] MEDS: amLODIPine Besylate 10 MG TABLET PO (07:51)
[2020-11-11] MEDS: Enoxaparin Sodium 40 MG/0.4 ML SYRINGE SUBCUT (07:51)
[2020-11-11 08:00] VITALS: BP 159/65; PULSE 53; RESP 17; TEMP 36.7; O2SAT 95
[2020-11-11 11:20] LABS: Glucose, Whole Blood 245 mg/dL (60-115)
[2020-11-11] MEDS: Insulin Lispro 100 UNIT/ML 3 ML VIAL SUBCUT ×3 (11:58→21:01)
--- NOTE | 2020-11-11 12:46 | HO.PM.IMPN ---
Subjective Subjective Date of Service: 11/11/20 Interval History: the patient was seen and evaluated this morning Sitting in her chair, feels comfortable Blood pressures improved for the last 24 hours Denies any fever, chills or shortness of breath No reported other overnight events. Systemic review: No fever, chills or weakness No chest pain, palpitation No shortness of breath or coughing No abdominal pain, nausea or vomiting No urinary symptoms No any rash or wounds Physical Exam Vital Signs: Vital Signs: Last Vital Signs Temp 98.0 F 11/11/20 08:00 Pulse 53 11/11/20 08:00 Resp 17 11/11/20 08:00 BP 159/65 H 11/11/20 08:00 Pulse Ox 95 11/11/20 08:00 Body Mass Index 24.7 Const: Other: Constitutional : Alert, not in distress Neck : Normal inspection, Supple Cardiovascular : RRR, S1 S2, no lower extremity edema Respiratory : Good bilateral air entry, no crackles, wheezes or rhonchi Gastrointestinal: soft, lax, Normal bowel sounds, Non tender Skin : Warm/Dry, No rash Neurological : Alert , interactive, No focal deficit Objective Data Current Medications Generic Name Dose Route Start Last Admin Trade Name Freq PRN Reason Stop Dose Admin Acetaminophen 650 mg 09/28/20 11:39 10/27/20 11:12 Acetaminophen 325 Mg Tablet PO 650 mg Q6H PRN Administration PAINFEV Amlodipine Besylate 10 mg 09/21/20 09:00 11/11/20 07:51 Amlodipine Besylate 10 Mg Tablet PO 10 mg DAILY RAGHAVENDRA Administration Protocol Aspirin 81 mg 09/21/20 09:00 11/11/20 07:51 Aspirin 81 Mg Tab.Chew PO 81 mg DAILY RAGHAVENDRA Administration Atorvastatin Calcium 80 mg 10/04/20 21:00 11/10/20 21:09 Atorvastatin Calcium 80 Mg Tablet PO 80 mg BEDTIME RAGHAVENDRA Administration Enalapril Maleate 20 mg 10/05/20 12:00 11/11/20 07:50 Enalapril Maleate 10 Mg Tablet PO 20 mg BID RAGHAVENDRA Administration Enoxaparin Sodium 40 mg 10/07/20 08:00 11/11/20 07:51 Enoxaparin Sodium 40 Mg/0.4 Ml Syringe SUBCUT 40 mg Q24H RAGHAVENDRA Administration Hydralazine HCl 100 mg 11/05/20 15:00 11/11/20 07:50 Hydralazine Hcl 50 Mg Tablet PO 100 mg TID [facility] Administration Protocol Hydrochlorothiazide 25 mg 11/10/20 09:00 11/11/20 07:50 Hydrochlorothiazide 25 Mg Tablet PO 25 mg DAILY [facility] Administration Protocol Hydroxyzine HCl 25 mg 09/25/20 19:19 10/05/20 21:11 Hydroxyzine Hcl 25 Mg Tablet PO 25 mg Q8H PRN Administration Restlessness Insulin Human Lispro 0 unit 09/21/20 07:30 11/11/20 11:58 Insulin Lispro 100 Unit/Ml 3 Ml Vial SUBCUT 4 unit QIDACHS [facility] Administration Protocol Levothyroxine Sodium 75 mcg 09/21/20 06:30 11/11/20 05:21 Levothyroxine Sodium 75 Mcg Tablet PO 75 mcg DAILY@0630 [facility] Administration Loperamide HCl 2 mg 10/11/20 08:21 11/06/20 08:08 Loperamide Hcl 2 Mg Capsule PO 2 mg Q6H PRN Administration Constipation Metformin HCl 500 mg 10/10/20 17:00 11/11/20 07:50 Metformin Hcl 500 Mg Tablet PO 500 mg BIDWM [facility] Administration Pharmacy Consult 1 each 09/20/20 18:27 Consult Rx Perform Med Rec MISCELLANE ONCE PRN Consult order Sodium Chloride 3 ml 09/21/20 00:00 11/11/20 07:52 0.9 % Sodium Chloride Flush 3 Ml [facility]ringe [facility] T[facility] 25 mg 09/25/20 19:19 10/08/20 21:02 Trazodone Hcl 25 Mg Halftab PO 25 mg BEDTIME PRN Administration Insomnia Labs CBC & Chem 7: 09/27/20 05:26 11/10/20 08:49 Microbiology Microbiology Results: Microbiology 09/21/20 Unknown Urine clean catch - Clean Catch Midstream Urine Culture - Final No growth. Assessment and Plan (1) Neurocognitive disorder: Status: Acute Assessment and Plan: hospital d#47 85yo F with HTN, HLD, DM2, hypothyroidism, CAD s/p PCI admitted with falls, elevated troponin # cognitive impairment Evaluated by psychiatry- does need guardianship Temp. # uncontrolled HTN Better controlled today continue amlodipine, enalapril hydralazine dose to 100 t.i.d. Continue hydrochlorothiazide and monitor blood pressure # fall initial head CT with ? 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 counseling support given. # elevated Tn-I with underlying CAD likely due to HTN + ABELARDO (resolved) seen by Cardiology and recommended medical treatment as stable CAD with ASA + statin; HR too low for B-derrek # DM2 with hypoglycemia d/c'ed GPZ; continue correction-dose lispro + MTF # hypothyroidism continue LT4 # VTE ppx LMWH Dispo - CM working on helping her find a safe place to live [she cannot go home- it is deemed unfit for habitation due to a failed septic system; plan to go home with friend fell through] - considering conservatorship to help her with her finances but still trying to identify a possible conservator - she could require guardianship
--- NOTE | 2020-11-11 14:13 | MHC.CM.PN ---
CM RECEIVED AN EMAIL FROM PTS CORN COOKER, RAHUL DAVE. HE STATED HE WAS UNABLE TO GET INTO PTS HOME WITH THE KEYS SHE PROVIDED. HE REPORTS HE WILL BE COMING IN TO SEE THE PT TODAY TO WORK ON A PLAN FOR GAINING ACCESS TO HER HOME.
[2020-11-11 15:30] VITALS: BP 168/70; PULSE 84; RESP 18; TEMP 36.5; O2SAT 96
[2020-11-11 16:44] LABS: Glucose, Whole Blood 157 mg/dL (60-115)
[2020-11-11 19:58] LABS: Glucose, Whole Blood 168 mg/dL (60-115)
[2020-11-11 20:27] VITALS: BP 165/72; PULSE 60; RESP 15; TEMP 36.4; O2SAT 95
[2020-11-11] MEDS: Atorvastatin Calcium 80 MG TABLET PO (21:01)
[2020-11-12 07:32] LABS: Glucose, Whole Blood 142 mg/dL (60-115)
[2020-11-12 08:00] VITALS: BP 160/72; PULSE 51; RESP 18; TEMP 36.3; O2SAT 97
[2020-11-12] MEDS: Enoxaparin Sodium 40 MG/0.4 ML SYRINGE SUBCUT (08:56)
[2020-11-12] MEDS: amLODIPine Besylate 10 MG TABLET PO (08:57)
[2020-11-12] MEDS: Loperamide HCl 2 MG CAPSULE PO (08:57)
[2020-11-12] MEDS: Enalapril Maleate 10 MG TABLET 20 MG PO ×2 (08:57→20:46)
[2020-11-12] MEDS: metFORMIN HCl 500 MG TABLET PO ×2 (08:57→16:47)
[2020-11-12] MEDS: hydroCHLOROthiazide 25 MG TABLET PO (08:57)
[2020-11-12] MEDS: Aspirin 81 MG TAB.CHEW PO (08:57)
[2020-11-12] MEDS: hydrALAZINE HCl 50 MG TABLET 100 MG PO ×3 (08:57→20:46)
[2020-11-12 11:30] LABS: Glucose, Whole Blood 141 mg/dL (60-115)
--- NOTE | 2020-11-12 14:05 | HO.PM.IMPN ---
Subjective Subjective Date of Service: 11/12/20 Interval History: the patient was seen and evaluated this morning Sitting in her chair, feels comfortable Blood pressures improved for the last 24 hours Denies any fever, chills or shortness of breath No reported other overnight events. Systemic review: No fever, chills or weakness No chest pain, palpitation No shortness of breath or coughing No abdominal pain, nausea or vomiting No urinary symptoms No any rash or wounds Physical Exam Vital Signs: Vital Signs: Last Vital Signs Temp 97.3 F 11/12/20 08:00 Pulse 51 11/12/20 08:00 Resp 18 11/12/20 08:00 BP 160/72 H 11/12/20 08:00 Pulse Ox 97 11/12/20 08:00 Body Mass Index 24.7 Const: Other: Constitutional : Alert, not in distress Neck : Normal inspection, Supple Cardiovascular : RRR, S1 S2, no lower extremity edema Respiratory : Good bilateral air entry, no crackles, wheezes or rhonchi Gastrointestinal: soft, lax, Normal bowel sounds, Non tender Skin : Warm/Dry, No rash Neurological : Alert , interactive, No focal deficit Objective Data Current Medications Generic Name Dose Route Start Last Admin Trade Name Freq PRN Reason Stop Dose Admin Acetaminophen 650 mg 09/28/20 11:39 10/27/20 11:12 Acetaminophen 325 Mg Tablet PO 650 mg Q6H PRN Administration PAINFEV Amlodipine Besylate 10 mg 09/21/20 09:00 11/12/20 08:57 Amlodipine Besylate 10 Mg Tablet PO 10 mg DAILY RAGHAVENDRA Administration Protocol Aspirin 81 mg 09/21/20 09:00 11/12/20 08:57 Aspirin 81 Mg Tab.Chew PO 81 mg DAILY RAGHAVENDRA Administration Atorvastatin Calcium 80 mg 10/04/20 21:00 11/11/20 21:01 Atorvastatin Calcium 80 Mg Tablet PO 80 mg BEDTIME RAGHAVENDRA Administration Enalapril Maleate 20 mg 10/05/20 12:00 11/12/20 08:57 Enalapril Maleate 10 Mg Tablet PO 20 mg BID RAGHAVENDRA Administration Enoxaparin Sodium 40 mg 10/07/20 08:00 11/12/20 08:56 Enoxaparin Sodium 40 Mg/0.4 Ml Syringe SUBCUT 40 mg Q24H RAGHAVENDRA Administration Hydralazine HCl 100 mg 11/05/20 15:00 11/12/20 08:57 Hydralazine Hcl 50 Mg Tablet PO 100 mg TID [facility] Administration Protocol Hydrochlorothiazide 25 mg 11/10/20 09:00 11/12/20 08:57 Hydrochlorothiazide 25 Mg Tablet PO 25 mg DAILY [facility] Administration Protocol Hydroxyzine HCl 25 mg 09/25/20 19:19 10/05/20 21:11 Hydroxyzine Hcl 25 Mg Tablet PO 25 mg Q8H PRN Administration Restlessness Insulin Human Lispro 0 unit 09/21/20 07:30 11/12/20 12:26 Insulin Lispro 100 Unit/Ml 3 Ml Vial SUBCUT Not Given QIDACHS [facility] Protocol Levothyroxine Sodium 75 mcg 09/21/20 06:30 11/12/20 06:08 Levothyroxine Sodium 75 Mcg Tablet PO Not Given DAILY@0630 [facility] Loperamide HCl 2 mg 10/11/20 08:21 11/12/20 08:57 Loperamide Hcl 2 Mg Capsule PO 2 mg Q6H PRN Administration Constipation Metformin HCl 500 mg 10/10/20 17:00 11/12/20 08:57 Metformin Hcl 500 Mg Tablet PO 500 mg BIDWM [facility] Administration Pharmacy Consult 1 each 09/20/20 18:27 Consult Rx Perform Med Rec MISCELLANE ONCE PRN Consult order Sodium Chloride 3 ml 09/21/20 00:00 11/12/20 08:56 0.9 % Sodium Chloride Flush 3 Ml Syringe IVFLUSH Not Given QSHIFT [facility] Trazodone HCl 25 mg 09/25/20 19:19 10/08/20 21:02 Trazodone Hcl 25 Mg Halftab PO 25 mg BEDTIME PRN Administration Insomnia Labs CBC & Chem 7: 09/27/20 05:26 11/10/20 08:49 Microbiology Microbiology Results: Microbiology 09/21/20 Unknown Urine clean catch - Clean Catch Midstream Urine Culture - Final No growth. Assessment and Plan (1) Neurocognitive disorder: Status: Acute Assessment and Plan: hospital d#47 85yo F with HTN, HLD, DM2, hypothyroidism, CAD s/p PCI admitted with falls, elevated troponin # cognitive impairment Evaluated by psychiatry- does need guardianship Temp. # uncontrolled HTN Better controlled today continue amlodipine, enalapril hydralazine dose to 100 t.i.d. Increase hydrochlorothiazide to 50 mg daily and monitor blood pressure # fall initial head CT with ? 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 counseling support given. # elevated Tn-I with underlying CAD likely due to HTN + ABELARDO (resolved) seen by Cardiology and recommended medical treatment as stable CAD with ASA + statin; HR too low for B-derrek # DM2 with hypoglycemia d/c'ed GPZ; continue correction-dose lispro + MTF # hypothyroidism continue LT4 # VTE ppx LMWH Dispo - CM working on helping her find a safe place to live [she cannot go home- it is deemed unfit for habitation due to a failed septic system; plan to go home with friend fell through] - considering conservatorship to help her with her finances but still trying to identify a possible conservator - she could require guardianship
[2020-11-12 15:27] VITALS: BP 170/70; PULSE 55; RESP 18; TEMP 36.7; O2SAT 98
[2020-11-12 16:31] LABS: Glucose, Whole Blood 119 mg/dL (60-115)
[2020-11-12 20:14] LABS: Glucose, Whole Blood 186 mg/dL (60-115)
[2020-11-12] MEDS: Insulin Lispro 100 UNIT/ML 3 ML VIAL SUBCUT (20:46)
[2020-11-12] MEDS: Atorvastatin Calcium 80 MG TABLET PO (20:46)
[2020-11-12 23:25] VITALS: BP 160/72; PULSE 60; RESP 18; TEMP 36.3; O2SAT 94
[2020-11-13] MEDS: Levothyroxine Sodium 75 MCG TABLET PO (05:51)
[2020-11-13 08:00] VITALS: BP 187/92; PULSE 97; RESP 20; TEMP 36.3; O2SAT 98
[2020-11-13 08:08] LABS: Glucose, Whole Blood 95 mg/dL (60-115)
[2020-11-13] MEDS: Enoxaparin Sodium 40 MG/0.4 ML SYRINGE SUBCUT (08:28)
[2020-11-13] MEDS: Aspirin 81 MG TAB.CHEW PO (08:29)
[2020-11-13] MEDS: Enalapril Maleate 10 MG TABLET 20 MG PO ×2 (08:29→20:21)
[2020-11-13] MEDS: amLODIPine Besylate 10 MG TABLET PO (08:29)
[2020-11-13] MEDS: hydrALAZINE HCl 50 MG TABLET 100 MG PO ×3 (08:29→20:22)
[2020-11-13] MEDS: hydroCHLOROthiazide 50 MG TABLET PO (08:29)
[2020-11-13] MEDS: metFORMIN HCl 500 MG TABLET PO ×2 (08:30→17:09)
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
[2020-11-13 11:41] LABS: Glucose, Whole Blood 174 mg/dL (60-115)
[2020-11-13 15:06] VITALS: BP 169/74; PULSE 60; RESP 18; TEMP 36.4; O2SAT 99
--- NOTE | 2020-11-13 15:43 | HO.PM.IMPN ---
Subjective Subjective Date of Service: 11/13/20 Interval History: The patient was seen and evaluated this morning Sitting in her chair, feels comfortable Blood pressures still elevated for the last 24 hours Denies any fever, chills or shortness of breath No reported other overnight events. Systemic review: No fever, chills or weakness No chest pain, palpitation No shortness of breath or coughing No abdominal pain, nausea or vomiting No urinary symptoms No any rash or wounds Physical Exam Vital Signs: Vital Signs: Last Vital Signs Temp 97.5 F 11/13/20 15:06 Pulse 60 11/13/20 15:06 Resp 18 11/13/20 15:06 BP 169/74 H 11/13/20 15:06 Pulse Ox 99 11/13/20 15:06 Body Mass Index 24.7 Const: Other: Constitutional : Alert, not in distress Neck : Normal inspection, Supple Cardiovascular : RRR, S1 S2, no lower extremity edema Respiratory : Good bilateral air entry, no crackles, wheezes or rhonchi Gastrointestinal: soft, lax, Normal bowel sounds, Non tender Skin : Warm/Dry, No rash Neurological : Alert , interactive, No focal deficit Objective Data Current Medications Generic Name Dose Route Start Last Admin Trade Name Freq PRN Reason Stop Dose Admin Acetaminophen 650 mg 09/28/20 11:39 10/27/20 11:12 Acetaminophen 325 Mg Tablet PO 650 mg Q6H PRN Administration PAINFEV Amlodipine Besylate 10 mg 09/21/20 09:00 11/13/20 08:29 Amlodipine Besylate 10 Mg Tablet PO 10 mg DAILY RAGHAVENDRA Administration Protocol Aspirin 81 mg 09/21/20 09:00 11/13/20 08:29 Aspirin 81 Mg Tab.Chew PO 81 mg DAILY RAGHAVENDRA Administration Atorvastatin Calcium 80 mg 10/04/20 21:00 11/12/20 20:46 Atorvastatin Calcium 80 Mg Tablet PO 80 mg BEDTIME RAGHAVENDRA Administration Enalapril Maleate 20 mg 10/05/20 12:00 11/13/20 08:29 Enalapril Maleate 10 Mg Tablet PO 20 mg BID RAGHAVENDRA Administration Enoxaparin Sodium 40 mg 10/07/20 08:00 11/13/20 08:28 Enoxaparin Sodium 40 Mg/0.4 Ml Syringe SUBCUT 40 mg Q24H RAGHAVENDRA Administration Hydralazine HCl 100 mg 11/05/20 15:00 11/13/20 08:29 Hydralazine Hcl 50 Mg Tablet PO 100 mg TID [facility] Administration Protocol Hydrochlorothiazide 50 mg 11/13/20 09:00 11/13/20 08:29 Hydrochlorothiazide 50 Mg Tablet PO 50 mg DAILY [facility] Administration Protocol Hydroxyzine HCl 25 mg 09/25/20 19:19 10/05/20 21:11 Hydroxyzine Hcl 25 Mg Tablet PO 25 mg Q8H PRN Administration Restlessness Insulin Human Lispro 0 unit 09/21/20 07:30 11/13/20 12:47 Insulin Lispro 100 Unit/Ml 3 Ml Vial SUBCUT Not Given QIDACHS [facility] Protocol Levothyroxine Sodium 75 mcg 09/21/20 06:30 11/13/20 05:51 Levothyroxine Sodium 75 Mcg Tablet PO 75 mcg DAILY@0630 [facility] Administration Loperamide HCl 2 mg 10/11/20 08:21 11/12/20 08:57 Loperamide Hcl 2 Mg Capsule PO 2 mg Q6H PRN Administration Constipation Metformin HCl 500 mg 10/10/20 17:00 11/13/20 08:30 Metformin Hcl 500 Mg Tablet PO 500 mg BIDWM [facility] Administration Pharmacy Consult 1 each 09/20/20 18:27 Consult Rx Perform Med Rec MISCELLANE ONCE PRN Consult order Sodium Chloride 3 ml 09/21/20 00:00 11/13/20 08:31 0.9 % Sodium Chloride Flush 3 Ml Syringe IVFLUSH Not Given QSHIFT [facility] Trazodone HCl 25 mg 09/25/20 19:19 10/08/20 21:02 Trazodone Hcl 25 Mg Halftab PO 25 mg BEDTIME PRN Administration Insomnia Labs CBC & Chem 7: 09/27/20 05:26 11/10/20 08:49 Microbiology Microbiology Results: Microbiology 09/21/20 Unknown Urine clean catch - Clean Catch Midstream Urine Culture - Final No growth. Assessment and Plan (1) Neurocognitive disorder: Status: Acute Assessment and Plan: hospital d#47 85yo F with HTN, HLD, DM2, hypothyroidism, CAD s/p PCI admitted with falls, elevated troponin # cognitive impairment Evaluated by psychiatry- does need guardianship Temp. # uncontrolled HTN Better controlled today continue amlodipine, enalapril hydralazine dose to 100 t.i.d. Increase hydrochlorothiazide to 50 mg daily and monitor blood pressure To get nephrology evaluation # fall initial head CT with ? 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 counseling support given. # elevated Tn-I with underlying CAD likely due to HTN + ABELARDO (resolved) seen by Cardiology and recommended medical treatment as stable CAD with ASA + statin; HR too low for B-derrek # DM2 with hypoglycemia d/c'ed GPZ; continue correction-dose lispro + MTF # hypothyroidism continue LT4 # VTE ppx LMWH Dispo - CM working on helping her find a safe place to live [she cannot go home- it is deemed unfit for habitation due to a failed septic system; plan to go home with friend fell through] - considering conservatorship to help her with her finances but still trying to identify a possible conservator - she could require guardianship
[2020-11-13 16:21] LABS: Glucose, Whole Blood 159 mg/dL (60-115)
[2020-11-13] MEDS: Insulin Lispro 100 UNIT/ML 3 ML VIAL SUBCUT (17:07)
[2020-11-13 17:09] VITALS: BP 163/79; PULSE 63
[2020-11-13 20:21] VITALS: BP 176/80; PULSE 76
[2020-11-13 20:21] LABS: Glucose, Whole Blood 141 mg/dL (60-115)
[2020-11-13] MEDS: Atorvastatin Calcium 80 MG TABLET PO (20:21)
[2020-11-13 20:22] VITALS: BP 176/80; PULSE 76
[2020-11-13 23:26] VITALS: BP 164/73; PULSE 61; RESP 18; TEMP 37.1; O2SAT 95
[2020-11-14] VITALS (7 sets, daily range): BP systolic 152–167; BP diastolic 72–81; PULSE 55–90; RESP 18–20; TEMP 36.3–36.9; O2SAT 93–98
[2020-11-14] MEDS: Levothyroxine Sodium 75 MCG TABLET PO (06:25)
[2020-11-14 07:56] LABS: Glucose, Whole Blood 93 mg/dL (60-115)
--- NOTE | 2020-11-14 08:36 | MHC.CM.PN ---
CM note LATE CHARTING The Pts Pigment And Lacquer Mixer Keenan Rico came in to see Pt 11/13/20, 3:30pm li. The purpose of the meeting was to return the Pts Purse and keys. Initially, He focused on relaying information re the difficulties that he has had trying to get into the house. He told the Pt that we need a person to help gain entry in to the home. Multiple times the Patient was asked if there was a person to assist her with a closed circuit screen watcher to gain entry. Multiple times the Patient said no. The Patient started to look at the ground. It was obvious that she was upset. She then stated, I guess it is pick on . The Patient began to cry. T/W as well as Samanta, from leadership, provided emotional support and encouragement. T/W had interjected more than one time on behalf of the Pt. The Pigment And Lacquer Mixer was informed that there is not a person. Atty previously updated to lack of familial and/or other outside supports. The 3rd floor Nurse Net Wpf Developer, Mago was at the nursing desk. She was filled in on the case. T/W was heading back to the room when Samanta came from the room and requested Security be called. Samanta Rodríguez/Nataliia and Mago went into the room. Samanta stated that the Patient did not want to sign a contract to retain the Pigment And Lacquer Mixer @ $250/hr. He stated that there are 2 originals. He refused to return the document that the Patient had signed. The Patient wanted the Pigment And Lacquer Mixer to leave. He refused to leave. He stated that He could have all of us thrown out of the room. Security came to floor. The conversation then resumed with the Patient. He refused to return the contract. He stated that she has 72 hours to change her mind. He left @ 4:30pm.
[2020-11-14] MEDS: Enoxaparin Sodium 40 MG/0.4 ML SYRINGE SUBCUT (09:23)
[2020-11-14] MEDS: amLODIPine Besylate 10 MG TABLET PO (09:23)
[2020-11-14] MEDS: Aspirin 81 MG TAB.CHEW PO (09:24)
[2020-11-14] MEDS: metFORMIN HCl 500 MG TABLET PO ×2 (09:24→17:31)
[2020-11-14] MEDS: hydrALAZINE HCl 50 MG TABLET 100 MG PO ×3 (09:24→22:00)
[2020-11-14] MEDS: hydroCHLOROthiazide 50 MG TABLET PO (09:24)
[2020-11-14] MEDS: Enalapril Maleate 10 MG TABLET 20 MG PO ×2 (09:24→21:59)
[2020-11-14 11:53] LABS: Glucose, Whole Blood 154 mg/dL (60-115)
--- NOTE | 2020-11-14 12:35 | MHC.CM.PN ---
BAUTISTA Note Met with Kaylan in her room. She had requested phone # for Keenan Gómez. She had written a note relieving him of his duties as her fire supervisor. Phone # provided. A call has been placed to [facility] services. A request for a return call was made. CM will follow.
--- NOTE | 2020-11-14 13:27 | MHC.CM.PN ---
CM note A return call has been received from Aidee @ [facility]. She reports that she is not able to to provide or refer any services until Mrs Bradley is @ home. Aidee stated that she would request permission to come to the Hospital to meet with the Pt. They are not going into Facilities r/t covid-19. Kaylan has been updated. CM will follow.
--- NOTE | 2020-11-14 14:56 | P.PNIM_ITS ---
Subjective Subjective Date of Service: 11/14/20 Interval History: The patient was seen and evaluated this morning Sitting in her chair, feels comfortable Blood pressures still elevated for the last 24 hours Denies any fever, chills or shortness of breath No reported other overnight events. Systemic review: No fever, chills or weakness No chest pain, palpitation No shortness of breath or coughing No abdominal pain, nausea or vomiting No urinary symptoms No any rash or wounds Physical Exam Vital Signs: Vital Signs: Last Vital Signs Temp 98.1 F 11/14/20 07:23 Pulse 57 11/14/20 07:23 Resp 18 11/14/20 07:23 BP 161/74 H 11/14/20 07:23 Pulse Ox 98 11/14/20 07:23 Body Mass Index 24.7 Const: Other: Constitutional : Alert, not in distress Neck : Normal inspection, Supple Cardiovascular : RRR, S1 S2, no lower extremity edema Respiratory : Good bilateral air entry, no crackles, wheezes or rhonchi Gastrointestinal: soft, lax, Normal bowel sounds, Non tender Skin : Warm/Dry, No rash Neurological : Alert , interactive, No focal deficit Objective Data Current Medications Generic Name Dose Route Start Last Admin Trade Name Freq PRN Reason Stop Dose Admin Acetaminophen 650 mg 09/28/20 11:39 10/27/20 11:12 Acetaminophen 325 Mg Tablet PO 650 mg Q6H PRN Administration PAINFEV Amlodipine Besylate 10 mg 09/21/20 09:00 11/14/20 09:23 Amlodipine Besylate 10 Mg Tablet PO 10 mg DAILY RAGHAVENDRA Administration Protocol Aspirin 81 mg 09/21/20 09:00 11/14/20 09:24 Aspirin 81 Mg Tab.Chew PO 81 mg DAILY RAGHAVENDRA Administration Atorvastatin Calcium 80 mg 10/04/20 21:00 11/13/20 20:21 Atorvastatin Calcium 80 Mg Tablet PO 80 mg BEDTIME RAGHAVENDRA Administration Enalapril Maleate 20 mg 10/05/20 12:00 11/14/20 09:24 Enalapril Maleate 10 Mg Tablet PO 20 mg BID RAGHAVENDRA Administration Enoxaparin Sodium 40 mg 10/07/20 08:00 11/14/20 09:23 Enoxaparin Sodium 40 Mg/0.4 Ml Syringe SUBCUT 40 mg Q24H RAGHAVENDRA Administration Hydralazine HCl 100 mg 11/05/20 15:00 11/14/20 09:24 Hydralazine Hcl 50 Mg Tablet PO 100 mg TID [facility] Administration Protocol Hydrochlorothiazide 50 mg 11/13/20 09:00 11/14/20 09:24 Hydrochlorothiazide 50 Mg Tablet PO 50 mg DAILY [facility] Administration Protocol Hydroxyzine HCl 25 mg 09/25/20 19:19 10/05/20 21:11 Hydroxyzine Hcl 25 Mg Tablet PO 25 mg Q8H PRN Administration Restlessness Insulin Human Lispro 0 unit 09/21/20 07:30 11/14/20 11:55 Insulin Lispro 100 Unit/Ml 3 Ml Vial SUBCUT Not Given QIDACHS [facility] Protocol Levothyroxine Sodium 75 mcg 09/21/20 06:30 11/14/20 06:25 Levothyroxine Sodium 75 Mcg Tablet PO 75 mcg DAILY@0630 [facility] Administration Loperamide HCl 2 mg 10/11/20 08:21 11/12/20 08:57 Loperamide Hcl 2 Mg Capsule PO 2 mg Q6H PRN Administration Constipation Metformin HCl 500 mg 10/10/20 17:00 11/14/20 09:24 Metformin Hcl 500 Mg Tablet PO 500 mg BIDWM [facility] Administration Pharmacy Consult 1 each 09/20/20 18:27 Consult Rx Perform Med Rec MISCELLANE ONCE PRN Consult order Sodium Chloride 3 ml 09/21/20 00:00 11/14/20 07:58 0.9 % Sodium Chloride Flush 3 Ml Syringe [facility]USH [facility] Trazodone HCl 25 mg 09/25/20 19:19 10/08/20 21:02 Trazodone Hcl 25 Mg Halftab PO 25 mg BEDTIME PRN Administration Insomnia Labs CBC & Chem 7: 09/27/20 05:26 11/10/20 08:49 Microbiology Microbiology Results: Microbiology 09/21/20 Unknown Urine clean catch - Clean Catch Midstream Urine Culture - Final No growth. Assessment and Plan (1) Neurocognitive disorder: Status: Acute Assessment and Plan: hospital d#47 85yo F with HTN, HLD, DM2, hypothyroidism, CAD s/p PCI admitted with falls, elevated troponin # cognitive impairment Evaluated by psychiatry- does need guardianship Temp. # uncontrolled HTN Better controlled today continue amlodipine, enalapril hydralazine dose to 100 t.i.d. Increased hydrochlorothiazide to 50 mg daily and monitor blood pressure Pending nephrology evaluation # fall initial head CT with ? 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 counseling support given. # elevated Tn-I with underlying CAD likely due to HTN + ABELARDO (resolved) seen by Cardiology and recommended medical treatment as stable CAD with ASA + statin; HR too low for B-derrek # DM2 with hypoglycemia d/c'ed GPZ; continue correction-dose lispro + MTF # hypothyroidism continue LT4 # VTE ppx LMWH Dispo - CM working on helping her find a safe place to live [she cannot go home- it is deemed unfit for habitation due to a failed septic system; plan to go home with friend fell through] - considering conservatorship to help her with her finances but still trying to identify a possible conservator - she could require guardianship
[2020-11-14 15:54] LABS: Glucose, Whole Blood 160 mg/dL (60-115)
[2020-11-14] MEDS: 0.9 % Sodium Chloride Flush 3 ML SYRINGE IVFLUSH (17:31)
--- NOTE | 2020-11-14 18:06 | P.CONNP_ITS ---
History of Present Illness Reason for Consult Consult date: 11/14/20 Reason for consult: Uncontrolled hypertension Chief Complaint Chief complaint: Patient admitted status post fall in a confusional History of Present Illness Narrative: 85-year-old female with a past medical history of hypertension, hyperlipidemia, diabetes, hypothyroidism, CAD status post stent presented to the hospital with a chief complaint of fall. She had been in the hospital for a few days . Her BP has been uncontrolled inspite of increasing medications. She denies chest pain, SOB, headache or visual disturbances Nephrology has been consulted to assist in the management of her sub optimally controlled hypertension. Review of Systems Review of Systems Yes all other systems are reviewed and are negative [facility] Past Medical History Medical History (Updated 11/14/20 @ 18:14 by Nicholas Olsen MD) Atherosclerotic cardiovascular disease Diabetes HTN (hypertension) Non-rheumatic aortic stenosis Social History Social History Household Members: Spouse Housing: Unknown / Unable to assess Alcohol intake: never Smoking Status: Never smoker service: No Current occupational status: retired Meds Allergies Allergy/AdvReac Type Severity Reaction Status Date / Time Penicillins [PCN] Allergy Mild HIVES Verified 09/26/20 20:26 ciprofloxacin [Cipro] Allergy Unknown Itching Verified 09/26/20 20:26 penicillin V Allergy Unknown Unknown Verified 09/26/20 20:26 Sulfa (Sulfonamide Allergy Unknown Unknown Verified 09/26/20 20:26 Antibiotics) Active Medications: Current Medications Generic Name Dose Route Start Last Admin Trade Name Freq PRN Reason Stop Dose Admin Acetaminophen 650 mg 09/28/20 11:39 10/27/20 11:12 Acetaminophen 325 Mg Tablet PO 650 mg Q6H PRN Administration PAINFEV Amlodipine Besylate 10 mg 09/21/20 09:00 11/14/20 09:23 Amlodipine Besylate 10 Mg Tablet PO 10 mg DAILY RAGHAVENDRA Administration Protocol Aspirin 81 mg 09/21/20 09:00 11/14/20 09:24 Aspirin 81 Mg Tab.Chew PO 81 mg DAILY RAGHAVENDRA Administration Atorvastatin Calcium 80 mg 10/04/20 21:00 11/13/20 20:21 Atorvastatin Calcium 80 Mg Tablet PO 80 mg BEDTIME RAGHAVENDRA Administration Enalapril Maleate 20 mg 10/05/20 12:00 11/14/20 09:24 Enalapril Maleate 10 Mg Tablet PO 20 mg BID RAGHAVENDRA Administration Enoxaparin Sodium 40 mg 10/07/20 08:00 11/14/20 09:23 Enoxaparin Sodium 40 Mg/0.4 Ml Syringe SUBCUT 40 mg Q24H RAGHAVENDRA Administration Hydralazine HCl 100 mg 11/05/20 15:00 11/14/20 17:31 Hydralazine Hcl 50 Mg Tablet PO 100 mg TID [facility] Administration Protocol Hydrochlorothiazide 50 mg 11/13/20 09:00 11/14/20 09:24 Hydrochlorothiazide 50 Mg Tablet PO 50 mg DAILY [facility] Administration Protocol Hydroxyzine HCl 25 mg 09/25/20 19:19 10/05/20 21:11 Hydroxyzine Hcl 25 Mg Tablet PO 25 mg Q8H PRN Administration Restlessness Insulin Human Lispro 0 unit 09/21/20 07:30 11/14/20 17:31 Insulin Lispro 100 Unit/Ml 3 Ml Vial SUBCUT Not Given QIDACHS [facility] Protocol Levothyroxine Sodium 75 mcg 09/21/20 06:30 11/14/20 06:25 Levothyroxine Sodium 75 Mcg Tablet PO 75 mcg DAILY@0630 RAGHAVENDRA Administration Loperamide HCl 2 mg 10/11/20 08:21 11/12/20 08:57 Loperamide Hcl 2 Mg Capsule PO 2 mg Q6H PRN Administration Constipation Metformin HCl 500 mg 10/10/20 17:00 11/14/20 17:31 Metformin Hcl 500 Mg Tablet PO 500 mg BIDWM [facility] Administration Pharmacy Consult 1 each 09/20/20 18:27 Consult Rx Perform Med Rec MISCELLANE ONCE PRN Consult order Sodium Chloride 3 ml 09/21/20 00:00 11/14/20 17:31 0.9 % Sodium Chloride Flush 3 Ml Syringe IVFLUSH 3 ml QSHIFT [facility] Administration Trazodone HCl 25 mg 09/25/20 19:19 10/08/20 21:02 Trazodone Hcl 25 Mg Halftab PO 25 mg BEDTIME PRN Administration Insomnia Home Medications Medication Instructions Recorded Confirmed Last Taken Type amlodipine 10 mg PO DAILY 09/20/20 09/20/20 Unknown History enalapril maleate 20 mg PO BID 09/20/20 09/20/20 Unknown History glimepiride 4 mg PO BID 09/20/20 09/20/20 Unknown History hydralazine 25 mg PO BID 09/20/20 09/20/20 Unknown History hydrochlorothiazide 25 mg PO DAILY 09/20/20 09/20/20 Unknown History levothyroxine 75 mcg PO DAILY 09/20/20 09/20/20 Unknown History metformin 500 mg PO BID 09/20/20 09/20/20 Unknown History metoprolol succinate 50 mg PO DAILY 09/20/20 09/20/20 Unknown History tramadol 50 mg PO TID PRN 09/20/20 09/20/20 Unknown History Physical Exam Vital Signs: Last Vital Signs Temp 97.9 F 11/14/20 15:31 Pulse 57 11/14/20 15:31 Resp 18 11/14/20 15:31 BP 152/72 H 11/14/20 15:31 Pulse Ox 97 11/14/20 15:31 Body Mass Index 24.7 Const General: No acute distress Neck Neck: Yes supple Resp Auscultation: diminished lung sounds Cardio Jugular venous distension: no JVD GI Palpation (GI): Soft to palpation Neuro General: moves all extremities Results Lab Results Result Diagrams: 09/27/20 05:26 11/10/20 08:49 Assessment and Plan (1) HTN (hypertension): Problem details: Likely has renovascular disease (given she had CAD) Reduce HCTZ to 25 mg daily Discontinue Amlodipine Start Nifedipine 60 mg daily Low sodium diet C/W rest of current management Shall do Doppler of renal arteries if BP still remains uncontrolled after changing to Nifedipine and maximizing it Status: Acute
[2020-11-14 20:06] LABS: Glucose, Whole Blood 185 mg/dL (60-115)
[2020-11-14] MEDS: Atorvastatin Calcium 80 MG TABLET PO (21:59)
[2020-11-14] MEDS: Insulin Lispro 100 UNIT/ML 3 ML VIAL SUBCUT (22:02)
[2020-11-14 23:55] LABS: Glucose, Whole Blood 27 mg/dL (60-115)
[2020-11-14 23:55] LABS: Glucose, Whole Blood 49 mg/dL (60-115)
[2020-11-15] VITALS (9 sets, daily range): BP systolic 130–174; BP diastolic 61–84; PULSE 60–70; RESP 15–18; TEMP 36.1–37; O2SAT 94–98
[2020-11-15 00:13] LABS: Glucose, Whole Blood 69 mg/dL (60-115)
[2020-11-15 02:08] LABS: Glucose, Whole Blood 201 mg/dL (60-115)
[2020-11-15] MEDS: Levothyroxine Sodium 75 MCG TABLET PO (06:09)
[2020-11-15 07:20] LABS: Glucose, Whole Blood 117 mg/dL (60-115)
[2020-11-15] MEDS: metFORMIN HCl 500 MG TABLET PO ×2 (07:45→17:28)
[2020-11-15] MEDS: hydroCHLOROthiazide 50 MG TABLET PO (07:45)
[2020-11-15] MEDS: amLODIPine Besylate 10 MG TABLET PO (07:46)
[2020-11-15] MEDS: Aspirin 81 MG TAB.CHEW PO (07:46)
[2020-11-15] MEDS: hydrALAZINE HCl 50 MG TABLET 100 MG PO ×3 (07:47→20:43)
[2020-11-15] MEDS: Enalapril Maleate 10 MG TABLET 20 MG PO ×2 (07:47→20:47)
[2020-11-15] MEDS: Enoxaparin Sodium 40 MG/0.4 ML SYRINGE SUBCUT (07:48)
[2020-11-15 11:10] LABS: Glucose, Whole Blood 105 mg/dL (60-115)
--- NOTE | 2020-11-15 12:41 | MHC.CM.PN ---
CM Spoke with Pts niece, Kae Ureña. T/W requested assistance with arranging the pts home for discharge. She stated that She is not able to help at this time. She did offer to reach out to other family members for assistance. BAUTISTA will continue to follow.
--- NOTE | 2020-11-15 12:55 | PM.PNNEP ---
Subjective Subjective Date of Service: 11/15/20 Interval history: Events noted. All recent data reviewed. BP better controlled Physical Exam Vital Signs: Vital Signs: Last Vital Signs Temp 98 F 11/15/20 11:05 Pulse 60 11/15/20 11:05 Resp 18 11/15/20 11:05 BP 130/61 11/15/20 11:05 Pulse Ox 97 11/15/20 11:05 Body Mass Index 24.7 Const: General: No no acute distress Neck: Neck: Yes supple Resp: Auscultation: diminished lung sounds Cardio: Heart sounds: no rubs GI: Palpation (GI): Soft to palpation Neuro: General: moves all extremities Objective Data Labs CBC & Chem 7: 09/27/20 05:26 11/10/20 08:49 Labs: Laboratory Results - last 24 hr 11/14/20 11/14/20 11/14/20 15:43 20:00 23:39 POC Glucose 160 H 185 H 27 L* 11/14/20 11/15/20 11/15/20 23:51 00:09 02:02 POC Glucose 49 L* 69 201 H 11/15/20 11/15/20 07:17 11:05 POC Glucose 117 H 105 Microbiology Microbiology Results: Microbiology 09/21/20 Unknown Urine clean catch - Clean Catch Midstream Urine Culture - Final No growth. Assessment & Plan Assessment and plan (1) HTN (hypertension): Problem details: Likely has renovascular disease (given she had CAD) Reduced HCTZ to 25 mg daily Discontinued Amlodipine Started Nifedipine 30 mg daily Low sodium diet C/W rest of current management Shall do Doppler of renal arteries if BP still remains uncontrolled after changing to Nifedipine and maximizing it Status: Acute Time Spent With Patient Time: Total time spent is greater than 50% in coordination of care (as documented) at patient's floor/unit and/or counseling patient:
--- NOTE | 2020-11-15 14:01 | P.PNIM_ITS ---
Subjective Subjective Date of Service: 11/15/20 Interval History: The patient was seen and evaluated this morning Sitting in her chair, feels comfortable Blood pressures still elevated for the last 24 hours Denies any fever, chills or shortness of breath No reported other overnight events. Systemic review: No fever, chills or weakness No chest pain, palpitation No shortness of breath or coughing No abdominal pain, nausea or vomiting No urinary symptoms No any rash or wounds Physical Exam Vital Signs: Vital Signs: Last Vital Signs Temp 98 F 11/15/20 11:05 Pulse 60 11/15/20 11:05 Resp 18 11/15/20 11:05 BP 130/61 11/15/20 11:05 Pulse Ox 97 11/15/20 11:05 Body Mass Index 24.7 Const: Other: Constitutional : Alert, not in distress Neck : Normal inspection, Supple Cardiovascular : RRR, S1 S2, no lower extremity edema Respiratory : Good bilateral air entry, no crackles, wheezes or rhonchi Gastrointestinal: soft, lax, Normal bowel sounds, Non tender Skin : Warm/Dry, No rash Neurological : Alert , interactive, No focal deficit Objective Data Current Medications Generic Name Dose Route Start Last Admin Trade Name Freq PRN Reason Stop Dose Admin Acetaminophen 650 mg 09/28/20 11:39 10/27/20 11:12 Acetaminophen 325 Mg Tablet PO 650 mg Q6H PRN Administration PAINFEV Aspirin 81 mg 09/21/20 09:00 11/15/20 07:46 Aspirin 81 Mg Tab.Chew PO 81 mg DAILY RAGHAVENDRA Administration Atorvastatin Calcium 80 mg 10/04/20 21:00 11/14/20 21:59 Atorvastatin Calcium 80 Mg Tablet PO 80 mg BEDTIME RAGHAVENDRA Administration Enalapril Maleate 20 mg 10/05/20 12:00 11/15/20 07:47 Enalapril Maleate 10 Mg Tablet PO 20 mg BID RAGHAVENDRA Administration Enoxaparin Sodium 40 mg 10/07/20 08:00 11/15/20 07:48 Enoxaparin Sodium 40 Mg/0.4 Ml Syringe SUBCUT 40 mg Q24H RAGHAVENDRA Administration Hydralazine HCl 100 mg 11/05/20 15:00 11/15/20 07:47 Hydralazine Hcl 50 Mg Tablet PO 100 mg TID RAGHAVENDRA Administration Protocol Hydrochlorothiazide 25 mg 11/16/20 09:00 Hydrochlorothiazide 25 Mg Tablet PO DAILY RAGHAVENDRA Protocol Hydroxyzine HCl 25 mg 09/25/20 19:19 10/05/20 21:11 Hydroxyzine Hcl 25 Mg Tablet PO 25 mg Q8H PRN Administration Restlessness Insulin Human Lispro 0 unit 09/21/20 07:30 11/15/20 12:47 Insulin Lispro 100 Unit/Ml 3 Ml Vial SUBCUT Not Given QIDACHS [facility] Protocol Levothyroxine Sodium 75 mcg 09/21/20 06:30 11/15/20 06:09 Levothyroxine Sodium 75 Mcg Tablet PO 75 mcg DAILY@0630 RAGHAVENDRA Administration Loperamide HCl 2 mg 10/11/20 08:21 11/12/20 08:57 Loperamide Hcl 2 Mg Capsule PO 2 mg Q6H PRN Administration Constipation Metformin HCl 500 mg 10/10/20 17:00 11/15/20 07:45 Metformin Hcl 500 Mg Tablet PO 500 mg BIDWM RAGHAVENDRA Administration Nifedipine 30 mg 11/16/20 09:00 Nifedipine Er 30 Mg Tab.Er.24 PO DAILY [facility] Protocol Pharmacy Consult 1 each 09/20/20 18:27 Consult Rx Perform Med Rec MISCELLANE ONCE PRN Consult order Sodium Chloride 3 ml 09/21/20 00:00 11/15/20 10:08 0.9 % Sodium Chloride Flush 3 Ml Syringe IVFLUSH Not Given QSHIFT [facility] Trazodone HCl 25 mg 09/25/20 19:19 10/08/20 21:02 Trazodone Hcl 25 Mg Halftab PO 25 mg BEDTIME PRN Administration Insomnia Labs CBC & Chem 7: 09/27/20 05:26 11/10/20 08:49 Microbiology Microbiology Results: Microbiology 09/21/20 Unknown Urine clean catch - Clean Catch Midstream Urine Culture - Final No growth. Assessment and Plan (1) Neurocognitive disorder: Status: Acute Assessment and Plan: hospital d#56 85yo F with HTN, HLD, DM2, hypothyroidism, CAD s/p PCI admitted with falls, elevated troponin # cognitive impairment Evaluated by psychiatry- does need guardianship Temp. # uncontrolled HTN Better controlled today DC amlodipine, Start Nifedipine XL 30 mg Continue enalapril hydralazine dose to 100 t.i.d. hydrochlorothiazide to 25 mg daily and monitor blood pressure appreciate nephrology evaluation # fall initial head CT with ? 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 counseling support given. # elevated Tn-I with underlying CAD likely due to HTN + ABELARDO (resolved) seen by Cardiology and recommended medical treatment as stable CAD with ASA + statin; HR too low for B-derrek # DM2 with hypoglycemia d/c'ed GPZ; continue correction-dose lispro + MTF # hypothyroidism continue LT4 # VTE ppx LMWH Dispo - CM working on helping her find a safe place to live [she cannot go home- it is deemed unfit for habitation due to a failed septic system; plan to go home with friend fell through] - considering conservatorship to help her with her finances but still trying to identify a possible conservator - she could require guardianship
--- NOTE | 2020-11-15 15:28 | MHC.CM.PN ---
Met with Pt and Samanta. The Pt had called he forest ranger yesterday. She notified him, that he is no longer working for her. A call was placed today to Mr Gómez. A VM was left requesting he call to confirm receipt of Mrs Pressley's message. CALL witnessed by The Pt and Samanta.
[2020-11-15 16:25] LABS: Glucose, Whole Blood 119 mg/dL (60-115)
[2020-11-15] MEDS: Atorvastatin Calcium 80 MG TABLET PO (20:47)
[2020-11-15] MEDS: 0.9 % Sodium Chloride Flush 3 ML SYRINGE IVFLUSH (20:48)
[2020-11-15] MEDS: Insulin Lispro 100 UNIT/ML 3 ML VIAL SUBCUT (21:15)
[2020-11-15 21:19] LABS: Glucose, Whole Blood 162 mg/dL (60-115)
[2020-11-16] VITALS (8 sets, daily range): BP systolic 110–170; BP diastolic 58–74; PULSE 54–67; RESP 16–20; TEMP 35.5–37; O2SAT 96
[2020-11-16] MEDS: hydrALAZINE HCl 50 MG TABLET 100 MG PO ×3 (08:29→21:50)
[2020-11-16] MEDS: Aspirin 81 MG TAB.CHEW PO (08:29)
[2020-11-16] MEDS: Enalapril Maleate 10 MG TABLET 20 MG PO ×2 (08:30→21:51)
[2020-11-16] MEDS: Levothyroxine Sodium 75 MCG TABLET PO (08:31)
[2020-11-16] MEDS: hydroCHLOROthiazide 25 MG TABLET PO (08:32)
[2020-11-16] MEDS: NIFEdipine ER 30 MG TAB.ER.24 PO (08:32)
[2020-11-16] MEDS: metFORMIN HCl 500 MG TABLET PO ×2 (08:32→16:23)
[2020-11-16] MEDS: Enoxaparin Sodium 40 MG/0.4 ML SYRINGE SUBCUT (08:33)
[2020-11-16 08:51] LABS: Glucose, Whole Blood 200 mg/dL (60-115)
[2020-11-16] MEDS: Insulin Lispro 100 UNIT/ML 3 ML VIAL SUBCUT ×2 (09:14→11:16)
[2020-11-16 11:05] LABS: Glucose, Whole Blood 209 mg/dL (60-115)
--- NOTE | 2020-11-16 13:48 | PM.PNNEP ---
Subjective Subjective Date of Service: 11/16/20 Interval history: Events noted. All recent data reviewed. BP well controlled Physical Exam Vital Signs: Vital Signs: Last Vital Signs Temp 96 F L 11/16/20 10:53 Pulse 61 11/16/20 10:53 Resp 20 11/16/20 10:53 BP 110/58 L 11/16/20 10:53 Pulse Ox 96 11/16/20 10:53 Body Mass Index 24.7 Const: General: no acute distress Neck: Neck: Yes supple Resp: Auscultation: diminished lung sounds Cardio: Jugular venous distension: no JVD GI: Palpation (GI): Soft to palpation Neuro: General: moves all extremities Objective Data Labs CBC & Chem 7: 09/27/20 05:26 11/10/20 08:49 Labs: Laboratory Results - last 24 hr 11/15/20 11/15/20 11/16/20 16:03 20:45 08:46 POC Glucose 119 H 162 H 200 H 11/16/20 10:53 POC Glucose 209 H Microbiology Microbiology Results: Microbiology 09/21/20 Unknown Urine clean catch - Clean Catch Midstream Urine Culture - Final No growth. Assessment & Plan Assessment and plan (1) HTN (hypertension): Problem details: Likely has renovascular disease (given she had CAD); BP well controlled now C/W HCTZ to 25 mg daily C/W Nifedipine 30 mg daily Low sodium diet/ rest of current medications C/W rest of current management Status: Acute Time Spent With Patient Time: Total time spent is greater than 50% in coordination of care (as documented) at patient's floor/unit and/or counseling patient:
--- NOTE | 2020-11-16 14:22 | HO.PM.IMPN ---
Subjective Subjective Date of Service: 11/16/20 Interval History: wants to go home Cardiovascular Cardiovascular: Reports no additional cardiovascular complaints Respiratory Respiratory: Reports no additional respiratory complaints Physical Exam Vital Signs: Vital Signs: Last Vital Signs Temp 96 F L 11/16/20 10:53 Pulse 61 11/16/20 10:53 Resp 20 11/16/20 10:53 BP 110/58 L 11/16/20 10:53 Pulse Ox 96 11/16/20 10:53 Body Mass Index 24.7 General: no acute distress Neck Neck: Yes supple Resp Auscultation: diminished lung sounds Cardio Jugular venous distension: no JVD GI Palpation (GI): Soft to palpation Neuro General: moves all extremities Objective Data Current Medications Generic Name Dose Route Start Last Admin Trade Name Freq PRN Reason Stop Dose Admin Acetaminophen 650 mg 09/28/20 11:39 10/27/20 11:12 Acetaminophen 325 Mg Tablet PO 650 mg Q6H PRN Administration PAINFEV Aspirin 81 mg 09/21/20 09:00 11/16/20 08:29 Aspirin 81 Mg Tab.Chew PO 81 mg DAILY RAGHAVENDRA Administration Atorvastatin Calcium 80 mg 10/04/20 21:00 11/15/20 20:47 Atorvastatin Calcium 80 Mg Tablet PO 80 mg BEDTIME RAGHAVENDRA Administration Enalapril Maleate 20 mg 10/05/20 12:00 11/16/20 08:30 Enalapril Maleate 10 Mg Tablet PO 20 mg BID RAGHAVENDRA Administration Enoxaparin Sodium 40 mg 10/07/20 08:00 11/16/20 08:33 Enoxaparin Sodium 40 Mg/0.4 Ml Syringe SUBCUT 40 mg Q24H RAGHAVENDRA Administration Hydralazine HCl 100 mg 11/05/20 15:00 11/16/20 08:29 Hydralazine Hcl 50 Mg Tablet PO 100 mg TID RAGHAVENDRA Administration Protocol Hydrochlorothiazide 25 mg 11/16/20 09:00 11/16/20 08:32 Hydrochlorothiazide 25 Mg Tablet PO 25 mg DAILY RAGHAVENDRA Administration Protocol Hydroxyzine HCl 25 mg 09/25/20 19:19 10/05/20 21:11 Hydroxyzine Hcl 25 Mg Tablet PO 25 mg Q8H PRN Administration Restlessness Insulin Human Lispro 0 unit 09/21/20 07:30 11/16/20 11:16 Insulin Lispro 100 Unit/Ml 3 Ml Vial SUBCUT 4 unit QIDACHS RAGHAVENDRA Administration Protocol Levothyroxine Sodium 75 mcg 09/21/20 06:30 11/16/20 08:31 Levothyroxine Sodium 75 Mcg Tablet PO 75 mcg DAILY@0630 RAGHAVENDRA Administration Loperamide HCl 2 mg 10/11/20 08:21 11/12/20 08:57 Loperamide Hcl 2 Mg Capsule PO 2 mg Q6H PRN Administration Constipation Metformin HCl 500 mg 10/10/20 17:00 11/16/20 08:32 Metformin Hcl 500 Mg Tablet PO 500 mg BIDWM RAGHAVENDRA Administration Nifedipine 30 mg 11/16/20 09:00 11/16/20 08:32 Nifedipine Er 30 Mg Tab.Er.24 PO 30 mg DAILY RAGHAVENDRA Administration Protocol Pharmacy Consult 1 each 09/20/20 18:27 Consult Rx Perform Med Rec MISCELLANE ONCE PRN Consult order Sodium Chloride 3 ml 09/21/20 00:00 11/16/20 08:41 0.9 % Sodium Chloride Flush 3 Ml Syringe IVFLUSH Not Given QSHIFT [facility] Trazodone HCl 25 mg 09/25/20 19:19 10/08/20 21:02 Trazodone Hcl 25 Mg Halftab PO 25 mg BEDTIME PRN Administration Insomnia Labs CBC & Chem 7: 09/27/20 05:26 11/10/20 08:49 Microbiology Microbiology Results: Microbiology 09/21/20 Unknown Urine clean catch - Clean Catch Midstream Urine Culture - Final No growth. Assessment and Plan (1) Neurocognitive disorder: Status: Acute Assessment and Plan: hospital d#57 85yo F with HTN, HLD, DM2, hypothyroidism, CAD s/p PCI admitted with falls, elevated troponin cognitive impairment Evaluated by psychiatry- does need guardianship Temp. HTN continue enelapril, hydralazine, hctz, nifedipine better controlled fall initial head CT with ? 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 counseling support given. elevated Tn-I with underlying CAD likely due to HTN + ABELARDO (resolved) seen by Cardiology and recommended medical treatment as stable CAD with ASA + statin; HR too low for B-derrek DM2 with hypoglycemia d/c'ed GPZ; continue correction-dose lispro + MTF hypothyroidism continue LT4 VTE ppx LMWH Dispo - CM working on helping her find a safe place to live [she cannot go home- it is deemed unfit for habitation due to a failed septic system; plan to go home with friend fell through] - considering conservatorship to help her with her finances but still trying to identify a possible conservator - she could require guardianship
[2020-11-16 16:19] LABS: Glucose, Whole Blood 69 mg/dL (60-115)
[2020-11-16 21:02] LABS: Glucose, Whole Blood 114 mg/dL (60-115)
[2020-11-16] MEDS: Atorvastatin Calcium 80 MG TABLET PO (21:47)
[2020-11-17] VITALS (11 sets, daily range): BP systolic 129–174; BP diastolic 63–94; PULSE 54–88; RESP 18–20; TEMP 36.6–37; O2SAT 93–98
[2020-11-17] MEDS: Levothyroxine Sodium 75 MCG TABLET PO (06:43)
[2020-11-17 07:31] LABS: Glucose, Whole Blood 124 mg/dL (60-115)
[2020-11-17] MEDS: hydroCHLOROthiazide 25 MG TABLET PO (08:47)
[2020-11-17] MEDS: Aspirin 81 MG TAB.CHEW PO (08:48)
[2020-11-17] MEDS: metFORMIN HCl 500 MG TABLET PO ×2 (08:48→16:45)
[2020-11-17] MEDS: NIFEdipine ER 30 MG TAB.ER.24 PO (08:48)
[2020-11-17] MEDS: Enalapril Maleate 10 MG TABLET 20 MG PO ×2 (08:48→21:16)
[2020-11-17] MEDS: hydrALAZINE HCl 50 MG TABLET 100 MG PO ×3 (08:48→21:15)
[2020-11-17] MEDS: Enoxaparin Sodium 40 MG/0.4 ML SYRINGE SUBCUT (08:48)
[2020-11-17 11:23] LABS: Glucose, Whole Blood 153 mg/dL (60-115)
--- NOTE | 2020-11-17 11:29 | P.PNIM_ITS ---
Subjective Subjective Date of Service: 11/17/20 Interval History: wants to go home Cardiovascular Cardiovascular: Reports no additional cardiovascular complaints Gastrointestinal Gastrointestinal: Reports no additional gastrointestinal complaints Physical Exam Vital Signs: Vital Signs: Last Vital Signs Temp 98.4 F 11/17/20 07:58 Pulse 62 11/17/20 08:48 Resp 20 11/17/20 07:58 BP 129/74 11/17/20 08:48 Pulse Ox 97 11/17/20 07:58 Body Mass Index 24.7 General: no acute distress Neck Neck: Yes supple Resp Auscultation: diminished lung sounds Cardio Jugular venous distension: no JVD GI Palpation (GI): Soft to palpation Neuro General: moves all extremities Objective Data Current Medications Generic Name Dose Route Start Last Admin Trade Name Freq PRN Reason Stop Dose Admin Acetaminophen 650 mg 09/28/20 11:39 10/27/20 11:12 Acetaminophen 325 Mg Tablet PO 650 mg Q6H PRN Administration PAINFEV Aspirin 81 mg 09/21/20 09:00 11/17/20 08:48 Aspirin 81 Mg Tab.Chew PO 81 mg DAILY RAGHAVENDRA Administration Atorvastatin Calcium 80 mg 10/04/20 21:00 11/16/20 21:47 Atorvastatin Calcium 80 Mg Tablet PO 80 mg BEDTIME RAGHAVENDRA Administration Enalapril Maleate 20 mg 10/05/20 12:00 11/17/20 08:48 Enalapril Maleate 10 Mg Tablet PO 20 mg BID RAGHAVENDRA Administration Enoxaparin Sodium 40 mg 10/07/20 08:00 11/17/20 08:48 Enoxaparin Sodium 40 Mg/0.4 Ml Syringe SUBCUT 40 mg Q24H RAGHAVENDRA Administration Hydralazine HCl 100 mg 11/05/20 15:00 11/17/20 08:48 Hydralazine Hcl 50 Mg Tablet PO 100 mg TID RAGHAVENDRA Administration Protocol Hydrochlorothiazide 25 mg 11/16/20 09:00 11/17/20 08:47 Hydrochlorothiazide 25 Mg Tablet PO 25 mg DAILY RAGHAVENDRA Administration Protocol Hydroxyzine HCl 25 mg 09/25/20 19:19 10/05/20 21:11 Hydroxyzine Hcl 25 Mg Tablet PO 25 mg Q8H PRN Administration Restlessness Insulin Human Lispro 0 unit 09/21/20 07:30 11/17/20 07:41 Insulin Lispro 100 Unit/Ml 3 Ml Vial SUBCUT Not Given QIDACHS [facility] Protocol Levothyroxine Sodium 75 mcg 09/21/20 06:30 11/17/20 06:43 Levothyroxine Sodium 75 Mcg Tablet PO 75 mcg DAILY@0630 RAGHAVENDRA Administration Loperamide HCl 2 mg 10/11/20 08:21 11/12/20 08:57 Loperamide Hcl 2 Mg Capsule PO 2 mg Q6H PRN Administration Constipation Metformin HCl 500 mg 10/10/20 17:00 11/17/20 08:48 Metformin Hcl 500 Mg Tablet PO 500 mg BIDWM RAGHAVENDRA Administration Nifedipine 30 mg 11/16/20 09:00 11/17/20 08:48 Nifedipine Er 30 Mg Tab.Er.24 PO 30 mg DAILY RAGHAVENDRA Administration Protocol Pharmacy Consult 1 each 09/20/20 18:27 Consult Rx Perform Med Rec MISCELLANE ONCE PRN Consult order Sodium Chloride 3 ml 09/21/20 00:00 11/17/20 08:49 0.9 % Sodium Chloride Flush 3 Ml Syringe IVFLUSH Not Given QSHIFT [facility] Trazodone HCl 25 mg 09/25/20 19:19 10/08/20 21:02 Trazodone Hcl 25 Mg Halftab PO 25 mg BEDTIME PRN Administration Insomnia Labs CBC & Chem 7: 09/27/20 05:26 11/10/20 08:49 Microbiology Microbiology Results: Microbiology 09/21/20 Unknown Urine clean catch - Clean Catch Midstream Urine Culture - Final No growth. Assessment and Plan (1) Neurocognitive disorder: Status: Acute Assessment and Plan: hospital d#58 no acute changes 85yo F with HTN, HLD, DM2, hypothyroidism, CAD s/p PCI admitted with falls, elevated troponin cognitive impairment Evaluated by psychiatry- does need guardianship Temp. HTN continue enelapril, hydralazine, hctz, nifedipine better controlled fall initial head CT with ? 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 counseling support given. elevated Tn-I with underlying CAD likely due to HTN + ABELARDO (resolved) seen by Cardiology and recommended medical treatment as stable CAD with ASA + statin; HR too low for B-derrek DM2 with hypoglycemia d/c'ed GPZ; continue correction-dose lispro + MTF hypothyroidism continue LT4 VTE ppx LMWH Dispo - CM working on helping her find a safe place to live [she cannot go home- it is deemed unfit for habitation due to a failed septic system; plan to go home with friend fell through] - considering conservatorship to help her with her finances but still trying to identify a possible conservator - she could require guardianship
[2020-11-17] MEDS: Insulin Lispro 100 UNIT/ML 3 ML VIAL SUBCUT (11:33)
[2020-11-17 16:41] LABS: Glucose, Whole Blood 120 mg/dL (60-115)
[2020-11-17 20:32] LABS: Glucose, Whole Blood 155 mg/dL (60-115)
[2020-11-17] MEDS: Atorvastatin Calcium 80 MG TABLET PO (21:15)
[2020-11-18] MEDS: Levothyroxine Sodium 75 MCG TABLET PO (05:44)
[2020-11-18 07:03] LABS: Glucose, Whole Blood 106 mg/dL (60-115)
[2020-11-18 07:10] VITALS: BP 138/83; PULSE 54; RESP 18; TEMP 36.8; O2SAT 97
[2020-11-18 07:24] VITALS: BP 138/83; PULSE 62
[2020-11-18] MEDS: hydroCHLOROthiazide 25 MG TABLET PO (07:24)
[2020-11-18] MEDS: Enalapril Maleate 10 MG TABLET 20 MG PO ×2 (07:24→20:26)
[2020-11-18] MEDS: metFORMIN HCl 500 MG TABLET PO ×2 (07:24→16:03)
[2020-11-18] MEDS: hydrALAZINE HCl 50 MG TABLET 100 MG PO ×3 (07:24→20:26)
[2020-11-18] MEDS: Aspirin 81 MG TAB.CHEW PO (07:24)
[2020-11-18 07:25] VITALS: BP 138/83; PULSE 62
[2020-11-18] MEDS: Enoxaparin Sodium 40 MG/0.4 ML SYRINGE SUBCUT (07:25)
[2020-11-18] MEDS: NIFEdipine ER 30 MG TAB.ER.24 PO (07:25)
[2020-11-18 11:17] LABS: Glucose, Whole Blood 117 mg/dL (60-115)
--- NOTE | 2020-11-18 12:08 | HO.PM.IMPN ---
Subjective Subjective Date of Service: 11/18/20 Interval History: wants to go home Cardiovascular Cardiovascular: Reports no additional cardiovascular complaints Gastrointestinal Gastrointestinal: Reports no additional gastrointestinal complaints Physical Exam Vital Signs: Vital Signs: Last Vital Signs Temp 98.3 F 11/18/20 07:10 Pulse 62 11/18/20 07:25 Resp 18 11/18/20 07:10 BP 138/83 11/18/20 07:25 Pulse Ox 97 11/18/20 07:10 Body Mass Index 24.7 General: no acute distress Resp: CTA bilateral CVS: S1,S2,RRR GI: soft, non tender, non distended Neuro: motor grossly intact Psych: appropriate affect Objective Data Current Medications Generic Name Dose Route Start Last Admin Trade Name Freq PRN Reason Stop Dose Admin Acetaminophen 650 mg 09/28/20 11:39 10/27/20 11:12 Acetaminophen 325 Mg Tablet PO 650 mg Q6H PRN Administration PAINFEV Aspirin 81 mg 09/21/20 09:00 11/18/20 07:24 Aspirin 81 Mg Tab.Chew PO 81 mg DAILY RAGHAVENDRA Administration Atorvastatin Calcium 80 mg 10/04/20 21:00 11/17/20 21:15 Atorvastatin Calcium 80 Mg Tablet PO 80 mg BEDTIME RAGHAVENDRA Administration Enalapril Maleate 20 mg 10/05/20 12:00 11/18/20 07:24 Enalapril Maleate 10 Mg Tablet PO 20 mg BID RAGHAVENDRA Administration Enoxaparin Sodium 40 mg 10/07/20 08:00 11/18/20 07:25 Enoxaparin Sodium 40 Mg/0.4 Ml Syringe SUBCUT 40 mg Q24H RAGHAVENDRA Administration Hydralazine HCl 100 mg 11/05/20 15:00 11/18/20 07:24 Hydralazine Hcl 50 Mg Tablet PO 100 mg TID RAGHAVENDRA Administration Protocol Hydrochlorothiazide 25 mg 11/16/20 09:00 11/18/20 07:24 Hydrochlorothiazide 25 Mg Tablet PO 25 mg DAILY RAGHAVENDRA Administration Protocol Hydroxyzine HCl 25 mg 09/25/20 19:19 10/05/20 21:11 Hydroxyzine Hcl 25 Mg Tablet PO 25 mg Q8H PRN Administration Restlessness Insulin Human Lispro 0 unit 09/21/20 07:30 11/18/20 07:25 Insulin Lispro 100 Unit/Ml 3 Ml Vial SUBCUT Not Given QIDACHS [facility] Protocol Levothyroxine Sodium 75 mcg 09/21/20 06:30 11/18/20 05:44 Levothyroxine Sodium 75 Mcg Tablet PO 75 mcg DAILY@0630 RAGHAVENDRA Administration Loperamide HCl 2 mg 10/11/20 08:21 11/12/20 08:57 Loperamide Hcl 2 Mg Capsule PO 2 mg Q6H PRN Administration Constipation Metformin HCl 500 mg 10/10/20 17:00 11/18/20 07:24 Metformin Hcl 500 Mg Tablet PO 500 mg BIDWM RAGHAVENDRA Administration Nifedipine 30 mg 11/16/20 09:00 11/18/20 07:25 Nifedipine Er 30 Mg Tab.Er.24 PO 30 mg DAILY RAGHAVENDRA Administration Protocol Pharmacy Consult 1 each 09/20/20 18:27 Consult Rx Perform Med Rec MISCELLANE ONCE PRN Consult order Sodium Chloride 3 ml 09/21/20 00:00 11/18/20 07:26 0.9 % Sodium Chloride Flush 3 Ml Syringe IVFLUSH Not Given QSHIFT [facility] Trazodone HCl 25 mg 09/25/20 19:19 10/08/20 21:02 Trazodone Hcl 25 Mg Halftab PO 25 mg BEDTIME PRN Administration Insomnia Labs CBC & Chem 7: 09/27/20 05:26 11/10/20 08:49 Microbiology Microbiology Results: Microbiology 09/21/20 Unknown Urine clean catch - Clean Catch Midstream Urine Culture - Final No growth. Assessment and Plan (1) Neurocognitive disorder: Status: Acute Assessment and Plan: hospital d#59 no new complaints 85yo F with HTN, HLD, DM2, hypothyroidism, CAD s/p PCI admitted with falls, elevated troponin cognitive impairment Evaluated by psychiatry- does need guardianship Temp. HTN continue enelapril, hydralazine, hctz, nifedipine better controlled fall initial head CT with ? 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 counseling support given. elevated Tn-I with underlying CAD likely due to HTN + ABELARDO (resolved) seen by Cardiology and recommended medical treatment as stable CAD with ASA + statin; HR too low for B-derrek DM2 with hypoglycemia d/c'ed GPZ; continue correction-dose lispro + MTF hypothyroidism continue LT4 VTE ppx LMWH Dispo - CM working on helping her find a safe place to live [she cannot go home- it is deemed unfit for habitation due to a failed septic system; plan to go home with friend fell through] - considering conservatorship to help her with her finances but still trying to identify a possible conservator - she could require guardianship
[2020-11-18 15:33] VITALS: BP 140/78; PULSE 70; RESP 20; TEMP 36.6; O2SAT 96
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
[2020-11-18 16:03] VITALS: BP 148/78
[2020-11-18 16:33] LABS: Glucose, Whole Blood 142 mg/dL (60-115)
[2020-11-18] MEDS: Atorvastatin Calcium 80 MG TABLET PO (20:25)
[2020-11-18 20:26] VITALS: BP 136/78; PULSE 70
[2020-11-18 20:35] LABS: Glucose, Whole Blood 111 mg/dL (60-115)
[2020-11-19] VITALS (11 sets, daily range): BP systolic 135–179; BP diastolic 56–80; PULSE 56–78; RESP 15–20; TEMP 36.4–36.9; O2SAT 96–99
[2020-11-19] MEDS: Levothyroxine Sodium 75 MCG TABLET PO (05:38)
[2020-11-19 07:39] LABS: Glucose, Whole Blood 128 mg/dL (60-115)
[2020-11-19] MEDS: NIFEdipine ER 30 MG TAB.ER.24 PO (08:04)
[2020-11-19] MEDS: Enalapril Maleate 10 MG TABLET 20 MG PO ×2 (08:05→21:17)
[2020-11-19] MEDS: metFORMIN HCl 500 MG TABLET PO ×2 (08:05→18:07)
[2020-11-19] MEDS: hydrALAZINE HCl 50 MG TABLET 100 MG PO ×3 (08:06→21:18)
[2020-11-19] MEDS: Loperamide HCl 2 MG CAPSULE PO (08:07)
[2020-11-19] MEDS: hydroCHLOROthiazide 25 MG TABLET PO (08:07)
[2020-11-19] MEDS: Enoxaparin Sodium 40 MG/0.4 ML SYRINGE SUBCUT (08:09)
[2020-11-19] MEDS: Aspirin 81 MG TAB.CHEW PO ×2 (08:10)
[2020-11-19 11:30] LABS: Glucose, Whole Blood 122 mg/dL (60-115)
[2020-11-19 14:06] LABS: Creatinine Clr Calc Pharmacy 37.8; Estimated Glomerular Filt Rate 52
--- NOTE | 2020-11-19 15:39 | HO.PM.IMPN ---
Subjective Subjective Date of Service: 11/24/20 Interval History: fall, cognitive impairment Review of Systems Denies any complaint, Denies any fever or chills or nausea or vomiting or abdominal pain or chest pain or palpitation or cough or phlegm. Physical Exam Vital Signs: Vital Signs: Last Vital Signs Temp 97.6 F 11/19/20 15:02 Pulse 63 11/19/20 15:08 Resp 16 11/19/20 15:06 BP 179/80 H 11/19/20 15:08 Pulse Ox 97 11/19/20 15:06 Body Mass Index 24.7 Physical exam: Cvs: rrr, [id number] , no murmur res: clear to auscultation ,no rhonchii or wheezing abd: no rebound or guarding ,nt, bs present. ext pulses present , no cyanosis neuro: axo3 , nonfocal. Objective Data Current Medications Generic Name Dose Route Start Last Admin Trade Name Freq PRN Reason Stop Dose Admin Acetaminophen 650 mg 09/28/20 11:39 10/27/20 11:12 Acetaminophen 325 Mg Tablet PO 650 mg Q6H PRN Administration PAINFEV Aspirin 81 mg 09/21/20 09:00 11/19/20 08:10 Aspirin 81 Mg Tab.Chew PO 81 mg DAILY RAGHAVENDRA Administration Atorvastatin Calcium 80 mg 10/04/20 21:00 11/18/20 20:25 Atorvastatin Calcium 80 Mg Tablet PO 80 mg BEDTIME RAGHAVENDRA Administration Enalapril Maleate 20 mg 10/05/20 12:00 11/19/20 08:05 Enalapril Maleate 10 Mg Tablet PO 20 mg BID RAGHAVENDRA Administration Enoxaparin Sodium 40 mg 10/07/20 08:00 11/19/20 08:09 Enoxaparin Sodium 40 Mg/0.4 Ml Syringe SUBCUT 40 mg Q24H RAGHAVENDRA Administration Hydralazine HCl 100 mg 11/05/20 15:00 11/19/20 15:08 Hydralazine Hcl 50 Mg Tablet PO 100 mg TID RAGHAVENDRA Administration Protocol Hydrochlorothiazide 25 mg 11/16/20 09:00 11/19/20 08:07 Hydrochlorothiazide 25 Mg Tablet PO 25 mg DAILY RGAHAVENDRA Administration Protocol Hydroxyzine HCl 25 mg 09/25/20 19:19 10/05/20 21:11 Hydroxyzine Hcl 25 Mg Tablet PO 25 mg Q8H PRN Administration Restlessness Insulin Human Lispro 0 unit 09/21/20 07:30 11/19/20 12:09 Insulin Lispro 100 Unit/Ml 3 Ml Vial SUBCUT Not Given QIDACHS [facility] Protocol Levothyroxine Sodium 75 mcg 09/21/20 06:30 11/19/20 05:38 Levothyroxine Sodium 75 Mcg Tablet PO 75 mcg DAILY@0630 RAGHAVENDRA Administration Loperamide HCl 2 mg 10/11/20 08:21 11/19/20 08:07 Loperamide Hcl 2 Mg Capsule PO 2 mg Q6H PRN Administration Constipation Metformin HCl 500 mg 10/10/20 17:00 11/19/20 08:05 Metformin Hcl 500 Mg Tablet PO 500 mg BIDWM RAGHAVENDRA Administration Nifedipine 30 mg 11/16/20 09:00 11/19/20 08:04 Nifedipine Er 30 Mg Tab.Er.24 PO 30 mg DAILY RAGHAVENDRA Administration Protocol Pharmacy Consult 1 each 09/20/20 18:27 Consult Rx Perform Med Rec MISCELLANE ONCE PRN Consult order Sodium Chloride 3 ml 09/21/20 00:00 11/19/20 07:54 0.9 % Sodium Chloride Flush 3 Ml Syringe IVFLUSH Not Given QSHIFT [facility] Trazodone HCl 25 mg 09/25/20 19:19 10/08/20 21:02 Trazodone Hcl 25 Mg Halftab PO 25 mg BEDTIME PRN Administration Insomnia Labs CBC & Chem 7: 09/27/20 05:26 11/19/20 13:24 Microbiology Microbiology Results: Microbiology 09/21/20 Unknown Urine clean catch - Clean Catch Midstream Urine Culture - Final No growth. Assessment and Plan (1) HTN (hypertension): Status: Acute Assessment and Plan: Day#60 85yo F with HTN, HLD, DM2, hypothyroidism, CAD s/p PCI admitted with falls, elevated troponin 1.cognitive impairment Evaluated by psychiatry- does need guardianship Temp. 2.HTN: flactautaing but in 160's continue enelapril, hydralazine, hctz, adjust nifedipine. 3. fall initial head CT with ? 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 counseling support given. 5.elevated Tn-I with underlying CAD thought to be likely due to HTN + ABELARDO (resolved) seen by Cardiology and recommended medical treatment as stable CAD with ASA + statin; HR too low for B-derrek 6.DM2 with hypoglycemia d/c'ed GPZ; continue correction-dose lispro + MTF 7.hypothyroidism:continue LT4 VTE ppx LMWH Dispo - CM working on helping her find a safe place to live [she cannot go home- it is deemed unfit for habitation due to a failed septic system; plan to go home with friend fell through] - considering conservatorship to help her with her finances but still trying to identify a possible conservator - she could require guardianship
[2020-11-19 16:41] LABS: Glucose, Whole Blood 123 mg/dL (60-115)
[2020-11-19 20:54] LABS: Glucose, Whole Blood 161 mg/dL (60-115)
[2020-11-19] MEDS: Atorvastatin Calcium 80 MG TABLET PO (21:17)
[2020-11-19] MEDS: Insulin Lispro 100 UNIT/ML 3 ML VIAL SUBCUT (21:18)
[2020-11-19] MEDS: 0.9 % Sodium Chloride Flush 3 ML SYRINGE IVFLUSH (21:18)
[2020-11-20] VITALS (7 sets, daily range): BP systolic 135–174; BP diastolic 56–72; PULSE 59–90; RESP 18; TEMP 36.5–36.8; O2SAT 97
[2020-11-20] MEDS: Levothyroxine Sodium 75 MCG TABLET PO (05:42)
[2020-11-20 07:39] LABS: Glucose, Whole Blood 94 mg/dL (60-115)
[2020-11-20] MEDS: Enoxaparin Sodium 40 MG/0.4 ML SYRINGE SUBCUT (08:30)
[2020-11-20] MEDS: hydrALAZINE HCl 50 MG TABLET 100 MG PO ×3 (08:31→20:30)
[2020-11-20] MEDS: Enalapril Maleate 10 MG TABLET 20 MG PO ×2 (08:31→20:29)
[2020-11-20] MEDS: metFORMIN HCl 500 MG TABLET PO ×2 (08:31→16:58)
[2020-11-20] MEDS: hydroCHLOROthiazide 25 MG TABLET PO (08:31)
[2020-11-20] MEDS: NIFEdipine ER 30 MG TAB.ER.24 PO (08:31)
[2020-11-20] MEDS: Aspirin 81 MG TAB.CHEW PO (08:32)
--- NOTE | 2020-11-20 11:30 | HO.PM.IMPN ---
Subjective Subjective Date of Service: 11/20/20 Interval History: wants to go home Cardiovascular Cardiovascular: Reports no additional cardiovascular complaints Gastrointestinal Gastrointestinal: Reports no additional gastrointestinal complaints Physical Exam Vital Signs: Vital Signs: Last Vital Signs Temp 97.7 F 11/20/20 08:00 Pulse 59 11/20/20 08:31 Resp 18 11/20/20 08:00 BP 162/72 H 11/20/20 08:31 Pulse Ox 97 11/20/20 08:00 Body Mass Index 24.7 General: no acute distress Resp: CTA bilateral CVS: S1,S2,RRR GI: soft, non tender, non distended Neuro: motor grossly intact Psych: appropriate affect Objective Data Current Medications Generic Name Dose Route Start Last Admin Trade Name Freq PRN Reason Stop Dose Admin Acetaminophen 650 mg 09/28/20 11:39 10/27/20 11:12 Acetaminophen 325 Mg Tablet PO 650 mg Q6H PRN Administration PAINFEV Aspirin 81 mg 09/21/20 09:00 11/20/20 08:32 Aspirin 81 Mg Tab.Chew PO 81 mg DAILY RAGHAVENDRA Administration Atorvastatin Calcium 80 mg 10/04/20 21:00 11/19/20 21:17 Atorvastatin Calcium 80 Mg Tablet PO 80 mg BEDTIME RAGHAVENDRA Administration Enalapril Maleate 20 mg 10/05/20 12:00 11/20/20 08:31 Enalapril Maleate 10 Mg Tablet PO 20 mg BID RAGHAVENDRA Administration Enoxaparin Sodium 40 mg 10/07/20 08:00 11/20/20 08:30 Enoxaparin Sodium 40 Mg/0.4 Ml Syringe SUBCUT 40 mg Q24H RAGHAVENDRA Administration Hydralazine HCl 100 mg 11/05/20 15:00 11/20/20 08:31 Hydralazine Hcl 50 Mg Tablet PO 100 mg TID RAGHAVENDRA Administration Protocol Hydrochlorothiazide 25 mg 11/16/20 09:00 11/20/20 08:31 Hydrochlorothiazide 25 Mg Tablet PO 25 mg DAILY RAGHAVENDRA Administration Protocol Hydroxyzine HCl 25 mg 09/25/20 19:19 10/05/20 21:11 Hydroxyzine Hcl 25 Mg Tablet PO 25 mg Q8H PRN Administration Restlessness Insulin Human Lispro 0 unit 09/21/20 07:30 11/20/20 07:40 Insulin Lispro 100 Unit/Ml 3 Ml Vial SUBCUT Not Given QIDACHS [facility] Protocol Levothyroxine Sodium 75 mcg 09/21/20 06:30 11/20/20 05:42 Levothyroxine Sodium 75 Mcg Tablet PO 75 mcg DAILY@0630 RAGHAVENDRA Administration Loperamide HCl 2 mg 10/11/20 08:21 11/19/20 08:07 Loperamide Hcl 2 Mg Capsule PO 2 mg Q6H PRN Administration Constipation Metformin HCl 500 mg 10/10/20 17:00 11/20/20 08:31 Metformin Hcl 500 Mg Tablet PO 500 mg BIDWM RAGHAVENDRA Administration Nifedipine 30 mg 11/16/20 09:00 11/20/20 08:31 Nifedipine Er 30 Mg Tab.Er.24 PO 30 mg DAILY RAGHAVENDRA Administration Protocol Pharmacy Consult 1 each 09/20/20 18:27 Consult Rx Perform Med Rec MISCELLANE ONCE PRN Consult order Sodium Chloride 3 ml 09/21/20 00:00 11/20/20 08:30 0.9 % Sodium Chloride Flush 3 Ml Syringe IVFLUSH Not Given QSHIFT [facility] Trazodone HCl 25 mg 09/25/20 19:19 10/08/20 21:02 Trazodone Hcl 25 Mg Halftab PO 25 mg BEDTIME PRN Administration Insomnia Labs CBC & Chem 7: 09/27/20 05:26 11/19/20 13:24 Microbiology Microbiology Results: Microbiology 09/21/20 Unknown Urine clean catch - Clean Catch Midstream Urine Culture - Final No growth. Assessment and Plan (1) Neurocognitive disorder: Status: Acute Assessment and Plan: hospital d#59 no changes 85yo F with HTN, HLD, DM2, hypothyroidism, CAD s/p PCI admitted with falls, elevated troponin cognitive impairment Evaluated by psychiatry- does need guardianship Temp. HTN continue enelapril, hydralazine, hctz, nifedipine fall initial head CT with ? 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 counseling support given. elevated Tn-I with underlying CAD likely due to HTN + ABELARDO (resolved) seen by Cardiology and recommended medical treatment as stable CAD with ASA + statin; HR too low for B-derrek DM2 with hypoglycemia d/c'ed GPZ; continue correction-dose lispro + MTF hypothyroidism continue LT4 VTE ppx LMWH Dispo - CM working on helping her find a safe place to live [she cannot go home- it is deemed unfit for habitation due to a failed septic system; plan to go home with friend fell through] - considering conservatorship to help her with her finances but still trying to identify a possible conservator - she could require guardianship
[2020-11-20 11:34] LABS: Glucose, Whole Blood 155 mg/dL (60-115)
[2020-11-20] MEDS: Insulin Lispro 100 UNIT/ML 3 ML VIAL SUBCUT ×2 (11:41→20:31)
[2020-11-20 16:18] LABS: Glucose, Whole Blood 101 mg/dL (60-115)
[2020-11-20 20:14] LABS: Glucose, Whole Blood 227 mg/dL (60-115)
[2020-11-20] MEDS: Atorvastatin Calcium 80 MG TABLET PO (20:30)
[2020-11-21] VITALS (10 sets, daily range): BP systolic 140–158; BP diastolic 48–90; PULSE 56–91; RESP 18–20; TEMP 36.1–37.1; O2SAT 92–98
[2020-11-21] MEDS: Loperamide HCl 2 MG CAPSULE PO (01:24)
[2020-11-21] MEDS: Levothyroxine Sodium 75 MCG TABLET PO (05:44)
[2020-11-21 07:16] LABS: Glucose, Whole Blood 78 mg/dL (60-115)
[2020-11-21] MEDS: Enoxaparin Sodium 40 MG/0.4 ML SYRINGE SUBCUT (08:42)
[2020-11-21] MEDS: Enalapril Maleate 10 MG TABLET 20 MG PO ×2 (08:43→22:24)
[2020-11-21] MEDS: Aspirin 81 MG TAB.CHEW PO (08:43)
[2020-11-21] MEDS: NIFEdipine ER 30 MG TAB.ER.24 PO (08:43)
[2020-11-21] MEDS: hydroCHLOROthiazide 25 MG TABLET PO (08:43)
[2020-11-21] MEDS: hydrALAZINE HCl 50 MG TABLET 100 MG PO ×3 (08:43→22:23)
[2020-11-21] MEDS: metFORMIN HCl 500 MG TABLET PO ×2 (08:43→16:25)
[2020-11-21 11:12] LABS: Glucose, Whole Blood 122 mg/dL (60-115)
--- NOTE | 2020-11-21 13:05 | HO.PM.IMPN ---
Subjective Subjective Date of Service: 11/21/20 Interval History: no new complaints Cardiovascular Cardiovascular: Reports no additional cardiovascular complaints Gastrointestinal Gastrointestinal: Reports no additional gastrointestinal complaints Physical Exam Vital Signs: Vital Signs: Last Vital Signs Temp 98 F 11/21/20 10:58 Pulse 67 11/21/20 10:58 Resp 20 11/21/20 10:58 BP 140/64 H 11/21/20 10:58 Pulse Ox 97 11/21/20 10:58 Body Mass Index 24.7 General: no acute distress Resp: CTA bilateral CVS: S1,S2,RRR GI: soft, non tender, non distended Neuro: motor grossly intact Psych: appropriate affect Objective Data Current Medications Generic Name Dose Route Start Last Admin Trade Name Freq PRN Reason Stop Dose Admin Acetaminophen 650 mg 09/28/20 11:39 10/27/20 11:12 Acetaminophen 325 Mg Tablet PO 650 mg Q6H PRN Administration PAINFEV Aspirin 81 mg 09/21/20 09:00 11/21/20 08:43 Aspirin 81 Mg Tab.Chew PO 81 mg DAILY RAGHAVENDRA Administration Atorvastatin Calcium 80 mg 10/04/20 21:00 11/20/20 20:30 Atorvastatin Calcium 80 Mg Tablet PO 80 mg BEDTIME RAGHAVENDRA Administration Enalapril Maleate 20 mg 10/05/20 12:00 11/21/20 08:43 Enalapril Maleate 10 Mg Tablet PO 20 mg BID RAGHAVENDRA Administration Enoxaparin Sodium 40 mg 10/07/20 08:00 11/21/20 08:42 Enoxaparin Sodium 40 Mg/0.4 Ml Syringe SUBCUT 40 mg Q24H RAGHAVENDRA Administration Hydralazine HCl 100 mg 11/05/20 15:00 11/21/20 08:43 Hydralazine Hcl 50 Mg Tablet PO 100 mg TID RAGHAVENDRA Administration Protocol Hydrochlorothiazide 25 mg 11/16/20 09:00 11/21/20 08:43 Hydrochlorothiazide 25 Mg Tablet PO 25 mg DAILY RAGHAVENDRA Administration Protocol Hydroxyzine HCl 25 mg 09/25/20 19:19 10/05/20 21:11 Hydroxyzine Hcl 25 Mg Tablet PO 25 mg Q8H PRN Administration Restlessness Insulin Human Lispro 0 unit 09/21/20 07:30 11/21/20 11:33 Insulin Lispro 100 Unit/Ml 3 Ml Vial SUBCUT Not Given QIDACHS [facility] Protocol Levothyroxine Sodium 75 mcg 09/21/20 06:30 11/21/20 05:44 Levothyroxine Sodium 75 Mcg Tablet PO 75 mcg DAILY@0630 RAGHAVENDRA Administration Loperamide HCl 2 mg 10/11/20 08:21 11/21/20 01:24 Loperamide Hcl 2 Mg Capsule PO 2 mg Q6H PRN Administration Constipation Metformin HCl 500 mg 10/10/20 17:00 11/21/20 08:43 Metformin Hcl 500 Mg Tablet PO 500 mg BIDWM RAGHAVENDRA Administration Nifedipine 30 mg 11/16/20 09:00 11/21/20 08:43 Nifedipine Er 30 Mg Tab.Er.24 PO 30 mg DAILY RAGHAVENDRA Administration Protocol Pharmacy Consult 1 each 09/20/20 18:27 Consult Rx Perform Med Rec MISCELLANE ONCE PRN Consult order Sodium Chloride 3 ml 09/21/20 00:00 11/21/20 08:42 0.9 % Sodium Chloride Flush 3 Ml Syringe IVFLUSH Not Given QSHIFT RAGHAVENDRA Trazodone HCl 25 mg 09/25/20 19:19 10/08/20 21:02 Trazodone Hcl 25 Mg Halftab PO 25 mg BEDTIME PRN Administration Insomnia Labs CBC & Chem 7: 09/27/20 05:26 11/19/20 13:24 Microbiology Microbiology Results: Microbiology 09/21/20 Unknown Urine clean catch - Clean Catch Midstream Urine Culture - Final No growth. Assessment and Plan (1) Neurocognitive disorder: Status: Acute Assessment and Plan: hospital d#59 no changes 85yo F with HTN, HLD, DM2, hypothyroidism, CAD s/p PCI admitted with falls, elevated troponin cognitive impairment Evaluated by psychiatry- does need guardianship Temp. HTN continue enelapril, hydralazine, hctz, nifedipine bp decently control, slightly elevated today, but was hypotensive after previous increase, will leave alone for now fall initial head CT with ? 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 counseling support given. elevated Tn-I with underlying CAD likely due to HTN + ABELARDO (resolved) seen by Cardiology and recommended medical treatment as stable CAD with ASA + statin; HR too low for B-derrek DM2 with hypoglycemia d/c'ed GPZ; continue correction-dose lispro + MTF hypothyroidism continue LT4 VTE ppx LMWH Dispo - CM working on helping her find a safe place to live [she cannot go home- it is deemed unfit for habitation due to a failed septic system; plan to go home with friend fell through] - considering conservatorship to help her with her finances but still trying to identify a possible conservator - she could require guardianship
[2020-11-21 16:11] LABS: Glucose, Whole Blood 226 mg/dL (60-115)
[2020-11-21] MEDS: Insulin Lispro 100 UNIT/ML 3 ML VIAL SUBCUT (16:25)
[2020-11-21 20:18] LABS: Glucose, Whole Blood 86 mg/dL (60-115)
[2020-11-21] MEDS: Atorvastatin Calcium 80 MG TABLET PO (22:23)
[2020-11-22] VITALS (9 sets, daily range): BP systolic 141–155; BP diastolic 50–68; PULSE 58–67; RESP 16–18; TEMP 36.6–36.8; O2SAT 97–98; BMI 20.2
[2020-11-22] MEDS: Levothyroxine Sodium 75 MCG TABLET PO (05:42)
[2020-11-22 07:16] LABS: Glucose, Whole Blood 177 mg/dL (60-115)
[2020-11-22] MEDS: Insulin Lispro 100 UNIT/ML 3 ML VIAL SUBCUT ×3 (07:41→20:58)
[2020-11-22] MEDS: Enoxaparin Sodium 40 MG/0.4 ML SYRINGE SUBCUT (09:24)
[2020-11-22] MEDS: metFORMIN HCl 500 MG TABLET PO ×2 (09:24→16:57)
[2020-11-22] MEDS: Enalapril Maleate 10 MG TABLET 20 MG PO ×2 (09:25→20:03)
[2020-11-22] MEDS: hydroCHLOROthiazide 25 MG TABLET PO (09:26)
[2020-11-22] MEDS: NIFEdipine ER 30 MG TAB.ER.24 PO (09:27)
[2020-11-22] MEDS: hydrALAZINE HCl 50 MG TABLET 100 MG PO ×3 (09:27→20:06)
[2020-11-22] MEDS: Aspirin 81 MG TAB.CHEW PO (09:27)
[2020-11-22 11:16] LABS: Glucose, Whole Blood 154 mg/dL (60-115)
--- NOTE | 2020-11-22 13:49 | HO.PM.IMPN ---
Subjective Subjective Date of Service: 11/22/20 Interval History: The patient was seen and evaluated this morning Sitting in her chair, feels comfortable , wants to go home Denies any fever, chills or shortness of breath No reported other overnight events. Systemic review: No fever, chills or weakness No chest pain, palpitation No shortness of breath or coughing No abdominal pain, nausea or vomiting No urinary symptoms No any rash or wounds Physical Exam Vital Signs: Vital Signs: Last Vital Signs Temp 97.8 F 11/22/20 08:00 Pulse 58 11/22/20 09:25 Resp 17 11/22/20 08:00 BP 141/68 H 11/22/20 09:27 Pulse Ox 97 11/22/20 08:00 Body Mass Index 24.7 Const: Other: Constitutional : Alert, not in distress Neck : Normal inspection, Supple Cardiovascular : RRR, S1 S2, no lower extremity edema Respiratory : Good bilateral air entry, no crackles, wheezes or rhonchi Gastrointestinal: soft, lax, Normal bowel sounds, Non tender Skin : Warm/Dry, No rash Neurological : Alert , interactive, No focal deficit Objective Data Current Medications Generic Name Dose Route Start Last Admin Trade Name Freq PRN Reason Stop Dose Admin Acetaminophen 650 mg 09/28/20 11:39 10/27/20 11:12 Acetaminophen 325 Mg Tablet PO 650 mg Q6H PRN Administration PAINFEV Aspirin 81 mg 09/21/20 09:00 11/22/20 09:27 Aspirin 81 Mg Tab.Chew PO 81 mg DAILY RAGHAVENDRA Administration Atorvastatin Calcium 80 mg 10/04/20 21:00 11/21/20 22:23 Atorvastatin Calcium 80 Mg Tablet PO 80 mg BEDTIME RAGHAVENDRA Administration Enalapril Maleate 20 mg 10/05/20 12:00 11/22/20 09:25 Enalapril Maleate 10 Mg Tablet PO 20 mg BID RAGHAVENDRA Administration Enoxaparin Sodium 40 mg 10/07/20 08:00 11/22/20 09:24 Enoxaparin Sodium 40 Mg/0.4 Ml Syringe SUBCUT 40 mg Q24H RAGHAVENDRA Administration Hydralazine HCl 100 mg 11/05/20 15:00 11/22/20 09:27 Hydralazine Hcl 50 Mg Tablet PO 100 mg TID RAGHAVENDRA Administration Protocol Hydrochlorothiazide 25 mg 11/16/20 09:00 11/22/20 09:26 Hydrochlorothiazide 25 Mg Tablet PO 25 mg DAILY [facility] Administration Protocol Hydroxyzine HCl 25 mg 09/25/20 19:19 10/05/20 21:11 Hydroxyzine Hcl 25 Mg Tablet PO 25 mg Q8H PRN Administration Restlessness Insulin Human Lispro 0 unit 09/21/20 07:30 11/22/20 11:37 Insulin Lispro 100 Unit/Ml 3 Ml Vial SUBCUT 2 unit QIDACHS [facility] Administration Protocol Levothyroxine Sodium 75 mcg 09/21/20 06:30 11/22/20 05:42 Levothyroxine Sodium 75 Mcg Tablet PO 75 mcg DAILY@0630 RAGHAVENDRA Administration Loperamide HCl 2 mg 10/11/20 08:21 11/21/20 01:24 Loperamide Hcl 2 Mg Capsule PO 2 mg Q6H PRN Administration Constipation Metformin HCl 500 mg 10/10/20 17:00 11/22/20 09:24 Metformin Hcl 500 Mg Tablet PO 500 mg BIDWM RAGHAVENDRA Administration Nifedipine 30 mg 11/16/20 09:00 11/22/20 09:27 Nifedipine Er 30 Mg Tab.Er.24 PO 30 mg DAILY RAGHAVENDRA Administration Protocol Pharmacy Consult 1 each 09/20/20 18:27 Consult Rx Perform Med Rec MISCELLANE ONCE PRN Consult order Sodium Chloride 3 ml 09/21/20 00:00 11/22/20 07:41 0.9 % Sodium Chloride Flush 3 Ml Syringe IVFLUSH Not Given QSHIFT [facility] Trazodone HCl 25 mg 09/25/20 19:19 10/08/20 21:02 Trazodone Hcl 25 Mg Halftab PO 25 mg BEDTIME PRN Administration Insomnia Labs CBC & Chem 7: 09/27/20 05:26 11/19/20 13:24 Microbiology Microbiology Results: Microbiology 09/21/20 Unknown Urine clean catch - Clean Catch Midstream Urine Culture - Final No growth. Assessment and Plan (1) Neurocognitive disorder: Status: Acute Assessment and Plan: hospital d#60 no changes 85yo F with HTN, HLD, DM2, hypothyroidism, CAD s/p PCI admitted with falls, elevated troponin cognitive impairment Evaluated by psychiatry- does need guardianship Temp. HTN continue enelapril, hydralazine, hctz, nifedipine bp decently control acute grief reaction grieving over of . counseling support given. Hx CAD seen by Cardiology and recommended medical treatment as stable CAD with ASA + statin; HR too low for B-derrek DM2 with hypoglycemia d/c'ed GPZ; continue correction-dose lispro + MTF hypothyroidism continue LT4 VTE ppx LMWH Dispo - CM working on helping her find a safe place to live [she cannot go home- it is deemed unfit for habitation due to a failed septic system; plan to go home with friend fell through] - considering conservatorship to help her with her finances but still trying to identify a possible conservator
[2020-11-22 16:20] LABS: Glucose, Whole Blood 148 mg/dL (60-115)
[2020-11-22] MEDS: Atorvastatin Calcium 80 MG TABLET PO (20:03)
[2020-11-22] MEDS: 0.9 % Sodium Chloride Flush 3 ML SYRINGE IVFLUSH (20:06)
[2020-11-22 20:39] LABS: Glucose, Whole Blood 156 mg/dL (60-115)
[2020-11-23] VITALS (7 sets, daily range): BP systolic 115–178; BP diastolic 54–79; PULSE 54–87; RESP 14–20; TEMP 36.2–36.7; O2SAT 96–98
[2020-11-23] MEDS: Levothyroxine Sodium 75 MCG TABLET PO (05:43)
[2020-11-23 07:34] LABS: Glucose, Whole Blood 94 mg/dL (60-115)
[2020-11-23] MEDS: Aspirin 81 MG TAB.CHEW PO (09:45)
[2020-11-23] MEDS: Enalapril Maleate 10 MG TABLET 20 MG PO ×2 (09:45→20:13)
[2020-11-23] MEDS: hydroCHLOROthiazide 25 MG TABLET PO (09:45)
[2020-11-23] MEDS: Enoxaparin Sodium 40 MG/0.4 ML SYRINGE SUBCUT (09:46)
[2020-11-23] MEDS: metFORMIN HCl 500 MG TABLET PO ×2 (09:46→15:57)
[2020-11-23] MEDS: NIFEdipine ER 30 MG TAB.ER.24 PO (09:46)
[2020-11-23] MEDS: hydrALAZINE HCl 50 MG TABLET 100 MG PO ×3 (09:46→20:13)
[2020-11-23 11:20] LABS: Glucose, Whole Blood 155 mg/dL (60-115)
[2020-11-23] MEDS: Insulin Lispro 100 UNIT/ML 3 ML VIAL SUBCUT (12:43)
--- NOTE | 2020-11-23 15:46 | HO.PM.IMPN ---
Subjective Subjective Date of Service: 11/23/20 Interval History: The patient was seen and evaluated this morning Sitting in her chair, feels comfortable , wants to go home Denies any fever, chills or shortness of breath No reported other overnight events. Systemic review: No fever, chills or weakness No chest pain, palpitation No shortness of breath or coughing No abdominal pain, nausea or vomiting No urinary symptoms No any rash or wounds Physical Exam Vital Signs: Vital Signs: Last Vital Signs Temp 98.1 F 11/23/20 15:07 Pulse 64 11/23/20 15:07 Resp 18 11/23/20 15:07 BP 170/70 H 11/23/20 15:07 Pulse Ox 97 11/23/20 15:07 Body Mass Index 20.2 Const: Other: Constitutional : Alert, not in distress Neck : Normal inspection, Supple Cardiovascular : RRR, S1 S2, no lower extremity edema Respiratory : Good bilateral air entry, no crackles, wheezes or rhonchi Gastrointestinal: soft, lax, Normal bowel sounds, Non tender Skin : Warm/Dry, No rash Neurological : Alert , interactive, No focal deficit Objective Data Current Medications Generic Name Dose Route Start Last Admin Trade Name Freq PRN Reason Stop Dose Admin Acetaminophen 650 mg 09/28/20 11:39 10/27/20 11:12 Acetaminophen 325 Mg Tablet PO 650 mg Q6H PRN Administration PAINFEV Aspirin 81 mg 09/21/20 09:00 11/23/20 09:45 Aspirin 81 Mg Tab.Chew PO 81 mg DAILY RAGHAVENDRA Administration Atorvastatin Calcium 80 mg 10/04/20 21:00 11/22/20 20:03 Atorvastatin Calcium 80 Mg Tablet PO 80 mg BEDTIME RAGHAVENDRA Administration Enalapril Maleate 20 mg 10/05/20 12:00 11/23/20 09:45 Enalapril Maleate 10 Mg Tablet PO 20 mg BID RAGHAVENDRA Administration Enoxaparin Sodium 40 mg 10/07/20 08:00 11/23/20 09:46 Enoxaparin Sodium 40 Mg/0.4 Ml Syringe SUBCUT 40 mg Q24H RAGHAVENDRA Administration Hydralazine HCl 100 mg 11/05/20 15:00 11/23/20 09:46 Hydralazine Hcl 50 Mg Tablet PO 100 mg TID RAGHAVENDRA Administration Protocol Hydrochlorothiazide 25 mg 11/16/20 09:00 11/23/20 09:45 Hydrochlorothiazide 25 Mg Tablet PO 25 mg DAILY [facility] Administration Protocol Hydroxyzine HCl 25 mg 09/25/20 19:19 10/05/20 21:11 Hydroxyzine Hcl 25 Mg Tablet PO 25 mg Q8H PRN Administration Restlessness Insulin Human Lispro 0 unit 09/21/20 07:30 11/23/20 12:43 Insulin Lispro 100 Unit/Ml 3 Ml Vial SUBCUT 2 unit QIDACHS [facility] Administration Protocol Levothyroxine Sodium 75 mcg 09/21/20 06:30 11/23/20 05:43 Levothyroxine Sodium 75 Mcg Tablet PO 75 mcg DAILY@0630 RAGHAVENDRA Administration Loperamide HCl 2 mg 10/11/20 08:21 11/21/20 01:24 Loperamide Hcl 2 Mg Capsule PO 2 mg Q6H PRN Administration Constipation Metformin HCl 500 mg 10/10/20 17:00 11/23/20 09:46 Metformin Hcl 500 Mg Tablet PO 500 mg BIDWM RAGHAVENDRA Administration Nifedipine 30 mg 11/16/20 09:00 11/23/20 09:46 Nifedipine Er 30 Mg Tab.Er.24 PO 30 mg DAILY RAGHAVENDRA Administration Protocol Pharmacy Consult 1 each 09/20/20 18:27 Consult Rx Perform Med Rec MISCELLANE ONCE PRN Consult order Sodium Chloride 3 ml 09/21/20 00:00 11/23/20 09:47 0.9 % Sodium Chloride Flush 3 Ml Syringe IVFLUSH Not Given QSHIFT [facility] Trazodone HCl 25 mg 09/25/20 19:19 10/08/20 21:02 Trazodone Hcl 25 Mg Halftab PO 25 mg BEDTIME PRN Administration Insomnia Labs CBC & Chem 7: 09/27/20 05:26 11/19/20 13:24 Microbiology Microbiology Results: Microbiology 09/21/20 Unknown Urine clean catch - Clean Catch Midstream Urine Culture - Final No growth. Assessment and Plan (1) Neurocognitive disorder: Status: Acute Assessment and Plan: hospital d#61 no changes 85yo F with HTN, HLD, DM2, hypothyroidism, CAD s/p PCI admitted with falls, elevated troponin cognitive impairment Evaluated by psychiatry- does need guardianship Temp. HTN continue enelapril, hydralazine, hctz, nifedipine bp decently control acute grief reaction grieving over of . counseling support given. Hx CAD seen by Cardiology and recommended medical treatment as stable CAD with ASA + statin; HR too low for B-derrek DM2 with hypoglycemia d/c'ed GPZ; continue correction-dose lispro + MTF hypothyroidism continue LT4 VTE ppx LMWH Dispo - CM working on helping her find a safe place to live [she cannot go home- it is deemed unfit for habitation due to a failed septic system; plan to go home with friend fell through] - considering conservatorship to help her with her finances but still trying to identify a possible conservator
[2020-11-23] MEDS: 0.9 % Sodium Chloride Flush 3 ML SYRINGE IVFLUSH (15:57)
[2020-11-23 16:04] LABS: Glucose, Whole Blood 78 mg/dL (60-115)
[2020-11-23 20:05] LABS: Glucose, Whole Blood 137 mg/dL (60-115)
[2020-11-23] MEDS: Atorvastatin Calcium 80 MG TABLET PO (20:13)
[2020-11-24] VITALS (8 sets, daily range): BP systolic 132–175; BP diastolic 54–77; PULSE 60–70; RESP 18–20; TEMP 36.6–36.9; O2SAT 97–98
[2020-11-24] MEDS: Levothyroxine Sodium 75 MCG TABLET PO (06:38)
[2020-11-24 07:43] LABS: Glucose, Whole Blood 102 mg/dL (60-115)
[2020-11-24] MEDS: Aspirin 81 MG TAB.CHEW PO (08:33)
[2020-11-24] MEDS: hydrALAZINE HCl 50 MG TABLET 100 MG PO ×3 (08:33→20:37)
[2020-11-24] MEDS: Enoxaparin Sodium 40 MG/0.4 ML SYRINGE SUBCUT (08:33)
[2020-11-24] MEDS: Enalapril Maleate 10 MG TABLET 20 MG PO ×2 (08:34→20:37)
[2020-11-24] MEDS: metFORMIN HCl 500 MG TABLET PO ×2 (08:35→18:02)
[2020-11-24] MEDS: NIFEdipine ER 30 MG TAB.ER.24 PO (08:35)
[2020-11-24] MEDS: hydroCHLOROthiazide 25 MG TABLET PO (08:35)
[2020-11-24] MEDS: Loperamide HCl 2 MG CAPSULE PO (08:36)
[2020-11-24 10:24] LABS: CDIFF Ag Positive (Negative); CDIFF Internal ctrl Dots and bkg OK (V); CDiff Toxin Negative (Negative)
[2020-11-24 11:10] LABS: Glucose, Whole Blood 151 mg/dL (60-115)
[2020-11-24 11:18] LABS: CDiff Gene PCR POSITIVE (Negative)
--- NOTE | 2020-11-24 11:38 | P.PNIM_ITS ---
Subjective Subjective Date of Service: 11/24/20 Interval History: The patient was seen and evaluated this morning Sitting in her chair, feels comfortable , wants to go home Denies any fever, chills or shortness of breath No reported other overnight events. Systemic review: No fever, chills or weakness No chest pain, palpitation No shortness of breath or coughing No abdominal pain, nausea or vomiting No urinary symptoms No any rash or wounds Physical Exam Vital Signs: Vital Signs: Last Vital Signs Temp 98.2 F 11/24/20 08:00 Pulse 62 11/24/20 08:35 Resp 20 11/24/20 08:00 BP 149/63 H 11/24/20 08:35 Pulse Ox 97 11/24/20 08:00 Body Mass Index 20.2 Const: Other: Constitutional : Alert, not in distress Neck : Normal inspection, Supple Cardiovascular : RRR, S1 S2, no lower extremity edema Respiratory : Good bilateral air entry, no crackles, wheezes or rhonchi Gastrointestinal: soft, lax, Normal bowel sounds, Non tender Skin : Warm/Dry, No rash Neurological : Alert , interactive, No focal deficit Objective Data Current Medications Generic Name Dose Route Start Last Admin Trade Name Freq PRN Reason Stop Dose Admin Acetaminophen 650 mg 09/28/20 11:39 10/27/20 11:12 Acetaminophen 325 Mg Tablet PO 650 mg Q6H PRN Administration PAINFEV Aspirin 81 mg 09/21/20 09:00 11/24/20 08:33 Aspirin 81 Mg Tab.Chew PO 81 mg DAILY RAGHAVENDRA Administration Atorvastatin Calcium 80 mg 10/04/20 21:00 11/23/20 20:13 Atorvastatin Calcium 80 Mg Tablet PO 80 mg BEDTIME RAGHAVENDRA Administration Enalapril Maleate 20 mg 10/05/20 12:00 11/24/20 08:34 Enalapril Maleate 10 Mg Tablet PO 20 mg BID RAGHAVENDRA Administration Enoxaparin Sodium 40 mg 10/07/20 08:00 11/24/20 08:33 Enoxaparin Sodium 40 Mg/0.4 Ml Syringe SUBCUT 40 mg Q24H RAGHAVENDRA Administration Hydralazine HCl 100 mg 11/05/20 15:00 11/24/20 08:33 Hydralazine Hcl 50 Mg Tablet PO 100 mg TID RAGHAVENDRA Administration Protocol Hydrochlorothiazide 25 mg 11/16/20 09:00 11/24/20 08:35 Hydrochlorothiazide 25 Mg Tablet PO 25 mg DAILY [facility] Administration Protocol Hydroxyzine HCl 25 mg 09/25/20 19:19 10/05/20 21:11 Hydroxyzine Hcl 25 Mg Tablet PO 25 mg Q8H PRN Administration Restlessness Insulin Human Lispro 0 unit 09/21/20 07:30 11/24/20 08:32 Insulin Lispro 100 Unit/Ml 3 Ml Vial SUBCUT Not Given QIDACHS [facility] Protocol Levothyroxine Sodium 75 mcg 09/21/20 06:30 11/24/20 06:38 Levothyroxine Sodium 75 Mcg Tablet PO 75 mcg DAILY@0630 RAGHAVENDRA Administration Loperamide HCl 2 mg 10/11/20 08:21 11/24/20 08:36 Loperamide Hcl 2 Mg Capsule PO 2 mg Q6H PRN Administration Constipation Metformin HCl 500 mg 10/10/20 17:00 11/24/20 08:35 Metformin Hcl 500 Mg Tablet PO 500 mg BIDWM RAGHAVENDRA Administration Nifedipine 30 mg 11/16/20 09:00 11/24/20 08:35 Nifedipine Er 30 Mg Tab.Er.24 PO 30 mg DAILY RAGHAVENDRA Administration Protocol Pharmacy Consult 1 each 09/20/20 18:27 Consult Rx Perform Med Rec MISCELLANE ONCE PRN Consult order Sodium Chloride 3 ml 09/21/20 00:00 11/24/20 08:33 0.9 % Sodium Chloride Flush 3 Ml Syringe IVFLUSH Not Given QSHIFT [facility] Trazodone HCl 25 mg 09/25/20 19:19 10/08/20 21:02 Trazodone Hcl 25 Mg Halftab PO 25 mg BEDTIME PRN Administration Insomnia Vancomycin HCl 125 mg 11/24/20 11:45 Vancomycin Hcl 125 Mg Capsule PO Q6H [facility] Labs CBC & Chem 7: 09/27/20 05:26 11/19/20 13:24 Microbiology Microbiology Results: Microbiology 09/21/20 Unknown Urine clean catch - Clean Catch Midstream Urine Culture - Final No growth. Assessment and Plan (1) Neurocognitive disorder: Status: Acute Assessment and Plan: hospital d#62 85yo F with HTN, HLD, DM2, hypothyroidism, CAD s/p PCI admitted with falls, elevated troponin C diff infection Reporting diarrhea for the last 2 days Tested positive for C diff toxin No antibiotic received during this hospital stay Start vancomycin orally cognitive impairment Evaluated by psychiatry- does need guardianship Temp. HTN continue enelapril, hydralazine, hctz, nifedipine bp decently control acute grief reaction grieving over of . counseling support given. Hx CAD seen by Cardiology and recommended medical treatment as stable CAD with ASA + statin; HR too low for B-derrek DM2 with hypoglycemia d/c'ed GPZ; continue correction-dose lispro + MTF hypothyroidism continue LT4 VTE ppx LMWH Dispo - CM working on helping her find a safe place to live [she cannot go home- it is deemed unfit for habitation due to a failed septic system; plan to go home with friend fell through] - considering conservatorship to help her with her finances but still trying to identify a possible conservator
[2020-11-24 13:05] LABS: Lactic Acid 1.4 mmol/L (0.5-2.0)
[2020-11-24] MEDS: vancomycin HCL 125 MG CAPSULE PO ×2 (13:09→18:02)
[2020-11-24 16:16] LABS: Glucose, Whole Blood 99 mg/dL (60-115)
[2020-11-24] MEDS: Atorvastatin Calcium 80 MG TABLET PO (20:37)
[2020-11-24 21:07] LABS: Glucose, Whole Blood 157 mg/dL (60-115)
[2020-11-24] MEDS: Insulin Lispro 100 UNIT/ML 3 ML VIAL SUBCUT (21:27)
[2020-11-25] VITALS (8 sets, daily range): BP systolic 132–166; BP diastolic 59–70; PULSE 53–67; RESP 17–18; TEMP 36.7–36.8; O2SAT 96–98
[2020-11-25] MEDS: vancomycin HCL 125 MG CAPSULE PO ×5 (00:22→23:57)
[2020-11-25] MEDS: Levothyroxine Sodium 75 MCG TABLET PO (05:42)
[2020-11-25 07:06] LABS: Hematocrit 28.7 % (37-47); Hemoglobin 9.3 g/dl (12.0-16.0); Mean Corpuscular HGB Conc 32.4 g/dl (31.0-35.0); Mean Corpuscular Hemoglobin 30.7 pg (27.0-33.0); Mean Corpuscular Volume 94.7 fL (80-98); Mean Platelet Volume 12.1 fL (9.4-12.3); Platelet Count 241 X10*3/uL (160-400); Red Blood Count 3.03 X10*6/uL (4.20-5.50); Red Cell Distribution Width 14.7 % (11.0-16.0); White Blood Count 7.4 X10*3/uL (4.8-10.8)
[2020-11-25 07:36] LABS: Glucose, Whole Blood 90 mg/dL (60-115)
[2020-11-25 07:41] LABS: Anion Gap 13 (12-20); Blood Urea Nitrogen 23 mg/dL (9-16); Calcium 8.9 mg/dL (8.4-10.2); Carbon Dioxide 27 mmol/L (22-29); Chloride 108 mmol/L (96-108); Creatinine Clr Calc Pharmacy 37.8; Estimated Glomerular Filt Rate 58; Glucose Random 72 mg/dL (60-115); Potassium 3.7 mmol/L (3.3-5.1); Sodium 144 mmol/L (135-145)
[2020-11-25] MEDS: hydroCHLOROthiazide 25 MG TABLET PO (08:25)
[2020-11-25] MEDS: Enalapril Maleate 10 MG TABLET 20 MG PO ×2 (08:26→21:23)
[2020-11-25] MEDS: metFORMIN HCl 500 MG TABLET PO ×2 (08:26→17:12)
[2020-11-25] MEDS: hydrALAZINE HCl 50 MG TABLET 100 MG PO ×3 (08:26→21:24)
[2020-11-25] MEDS: NIFEdipine ER 30 MG TAB.ER.24 PO (08:27)
[2020-11-25] MEDS: Aspirin 81 MG TAB.CHEW PO (08:27)
[2020-11-25] MEDS: Enoxaparin Sodium 40 MG/0.4 ML SYRINGE SUBCUT (08:28)
--- NOTE | 2020-11-25 11:16 | P.PNIM_ITS ---
Subjective Subjective Date of Service: 11/25/20 Interval History: The patient was seen and evaluated this morning Sitting in her chair, feels comfortable , no reported diarrhea last night Denies any fever, chills or shortness of breath No reported other overnight events. Systemic review: No fever, chills or weakness No chest pain, palpitation No shortness of breath or coughing No abdominal pain, nausea or vomiting No urinary symptoms No any rash or wounds Physical Exam Vital Signs: Vital Signs: Last Vital Signs Temp 98.0 F 11/25/20 07:48 Pulse 53 11/25/20 08:27 Resp 18 11/25/20 07:48 BP 156/70 H 11/25/20 08:27 Pulse Ox 96 11/25/20 07:48 Body Mass Index 20.2 Const: Other: Constitutional : Alert, not in distress Neck : Normal inspection, Supple Cardiovascular : RRR, S1 S2, no lower extremity edema Respiratory : Good bilateral air entry, no crackles, wheezes or rhonchi Gastrointestinal: soft, lax, Normal bowel sounds, Non tender Skin : Warm/Dry, No rash Neurological : Alert , interactive, No focal deficit Objective Data Current Medications Generic Name Dose Route Start Last Admin Trade Name Freq PRN Reason Stop Dose Admin Acetaminophen 650 mg 09/28/20 11:39 10/27/20 11:12 Acetaminophen 325 Mg Tablet PO 650 mg Q6H PRN Administration PAINFEV Aspirin 81 mg 09/21/20 09:00 11/25/20 08:27 Aspirin 81 Mg Tab.Chew PO 81 mg DAILY RAGHAVENDRA Administration Atorvastatin Calcium 80 mg 10/04/20 21:00 11/24/20 20:37 Atorvastatin Calcium 80 Mg Tablet PO 80 mg BEDTIME RAGHAVENDRA Administration Enalapril Maleate 20 mg 10/05/20 12:00 11/25/20 08:26 Enalapril Maleate 10 Mg Tablet PO 20 mg BID RAGHAVENDRA Administration Enoxaparin Sodium 40 mg 10/07/20 08:00 11/25/20 08:28 Enoxaparin Sodium 40 Mg/0.4 Ml Syringe SUBCUT 40 mg Q24H RAGHAVENDRA Administration Hydralazine HCl 100 mg 11/05/20 15:00 11/25/20 08:26 Hydralazine Hcl 50 Mg Tablet PO 100 mg TID RAGHAVENDRA Administration Protocol Hydrochlorothiazide 25 mg 11/16/20 09:00 11/25/20 08:25 Hydrochlorothiazide 25 Mg Tablet PO 25 mg DAILY RAGHAVENDRA Administration Protocol Hydroxyzine HCl 25 mg 09/25/20 19:19 10/05/20 21:11 Hydroxyzine Hcl 25 Mg Tablet PO 25 mg Q8H PRN Administration Restlessness Insulin Human Lispro 0 unit 09/21/20 07:30 11/25/20 08:32 Insulin Lispro 100 Unit/Ml 3 Ml Vial SUBCUT Not Given QIDACHS [facility] Protocol Levothyroxine Sodium 75 mcg 09/21/20 06:30 11/25/20 05:42 Levothyroxine Sodium 75 Mcg Tablet PO 75 mcg DAILY@0630 RAGHAVENDRA Administration Loperamide HCl 2 mg 10/11/20 08:21 11/24/20 08:36 Loperamide Hcl 2 Mg Capsule PO 2 mg Q6H PRN Administration Constipation Metformin HCl 500 mg 10/10/20 17:00 11/25/20 08:26 Metformin Hcl 500 Mg Tablet PO 500 mg BIDWM RAGHAVENDRA Administration Nifedipine 30 mg 11/16/20 09:00 11/25/20 08:27 Nifedipine Er 30 Mg Tab.Er.24 PO 30 mg DAILY RAGHAVENDRA Administration Protocol Pharmacy Consult 1 each 09/20/20 18:27 Consult Rx Perform Med Rec MISCELLANE ONCE PRN Consult order Sodium Chloride 3 ml 09/21/20 00:00 11/25/20 09:38 0.9 % Sodium Chloride Flush 3 Ml Syringe IVFLUSH Not Given QSHIFT [facility] Trazodone HCl 25 mg 09/25/20 19:19 10/08/20 21:02 Trazodone Hcl 25 Mg Halftab PO 25 mg BEDTIME PRN Administration Insomnia Vancomycin HCl 125 mg 11/24/20 11:45 11/25/20 05:42 Vancomycin Hcl 125 Mg Capsule PO 125 mg Q6H RAGHAVENDRA Administration Labs CBC & Chem 7: 11/25/20 05:48 11/25/20 05:48 Microbiology Microbiology Results: Microbiology 11/24/20 08:18 Stool Stool Culture - Preliminary Normal so far. 09/21/20 Unknown Urine clean catch - Clean Catch Midstream Urine Culture - Final No growth. Assessment and Plan (1) Neurocognitive disorder: Status: Acute Assessment and Plan: hospital d#63 85yo F with HTN, HLD, DM2, hypothyroidism, CAD s/p PCI admitted with falls, elevated troponin C diff infection diarrhea improved No antibiotic received during this hospital stay Continue vancomycin orally D2/14 cognitive impairment Evaluated by psychiatry- does need guardianship Temp. HTN continue enelapril, hydralazine, hctz, nifedipine bp decently control acute grief reaction grieving over of . counseling support given. Hx CAD seen by Cardiology and recommended medical treatment as stable CAD with ASA + statin; HR too low for B-derrek DM2 with hypoglycemia d/c'ed GPZ; continue correction-dose lispro + MTF hypothyroidism continue LT4 VTE ppx LMWH Dispo - CM working on helping her find a safe place to live [she cannot go home- it is deemed unfit for habitation due to a failed septic system; plan to go home with friend fell through] - considering conservatorship to help her with her finances but still trying to identify a possible conservator
[2020-11-25 11:34] LABS: Glucose, Whole Blood 180 mg/dL (60-115)
[2020-11-25] MEDS: Insulin Lispro 100 UNIT/ML 3 ML VIAL SUBCUT (11:53)
--- NOTE | 2020-11-25 13:41 | MHC.CM.PN ---
PT REMAINS INPATIENT WAITING FOR GUARDIAN/CONSERVATORSHIP. CURRENTLY AWAITING NEW HEARING DATE.
[2020-11-25 16:48] LABS: Glucose, Whole Blood 127 mg/dL (60-115)
[2020-11-25 21:04] LABS: Glucose, Whole Blood 149 mg/dL (60-115)
[2020-11-25] MEDS: Atorvastatin Calcium 80 MG TABLET PO (21:24)
[2020-11-26] VITALS (7 sets, daily range): BP systolic 147–169; BP diastolic 72–74; PULSE 55–60; RESP 17–18; TEMP 36.4–36.8; O2SAT 94–98
[2020-11-26] MEDS: vancomycin HCL 125 MG CAPSULE PO ×4 (06:28→22:58)
[2020-11-26] MEDS: Levothyroxine Sodium 75 MCG TABLET PO (06:28)
[2020-11-26 07:23] LABS: Glucose, Whole Blood 114 mg/dL (60-115)
[2020-11-26] MEDS: hydrALAZINE HCl 50 MG TABLET 100 MG PO ×3 (09:23→21:05)
[2020-11-26] MEDS: Aspirin 81 MG TAB.CHEW PO (09:23)
[2020-11-26] MEDS: metFORMIN HCl 500 MG TABLET PO ×2 (09:24→17:19)
[2020-11-26] MEDS: hydroCHLOROthiazide 25 MG TABLET PO (09:24)
[2020-11-26] MEDS: Enalapril Maleate 10 MG TABLET 20 MG PO ×2 (09:24→21:07)
[2020-11-26] MEDS: NIFEdipine ER 30 MG TAB.ER.24 PO (09:24)
[2020-11-26] MEDS: Enoxaparin Sodium 40 MG/0.4 ML SYRINGE SUBCUT (09:25)
[2020-11-26 11:36] LABS: Glucose, Whole Blood 331 mg/dL (60-115)
[2020-11-26] MEDS: Insulin Lispro 100 UNIT/ML 3 ML VIAL SUBCUT (11:39)
--- NOTE | 2020-11-26 13:54 | P.PNIM_ITS ---
Subjective Subjective Date of Service: 11/26/20 Interval History: The patient was seen and evaluated this morning Sitting in her chair, upset about being in hospital wants to leave on Friday you no reported diarrhea Denies any fever, chills or shortness of breath No reported other overnight events. Systemic review: No fever, chills or weakness No chest pain, palpitation No shortness of breath or coughing No abdominal pain, nausea or vomiting No urinary symptoms Physical Exam Vital Signs: Vital Signs: Last Vital Signs Temp 98.3 F 11/26/20 07:30 Pulse 55 11/26/20 09:24 Resp 17 11/26/20 07:30 BP 169/74 H 11/26/20 09:24 Pulse Ox 94 11/26/20 07:30 Body Mass Index 20.2 Const: Other: Constitutional : Alert, not in distress Neck : Normal inspection, Supple Cardiovascular : RRR, S1 S2, no lower extremity edema Respiratory : Good bilateral air entry, no crackles, wheezes or rhonchi Gastrointestinal: soft, lax, Normal bowel sounds, Non tender Skin : Warm/Dry, No rash Neurological : Alert , interactive, No focal deficit Objective Data Current Medications Generic Name Dose Route Start Last Admin Trade Name Freq PRN Reason Stop Dose Admin Acetaminophen 650 mg 09/28/20 11:39 10/27/20 11:12 Acetaminophen 325 Mg Tablet PO 650 mg Q6H PRN Administration PAINFEV Aspirin 81 mg 09/21/20 09:00 11/26/20 09:23 Aspirin 81 Mg Tab.Chew PO 81 mg DAILY RAGHAVENDRA Administration Atorvastatin Calcium 80 mg 10/04/20 21:00 11/25/20 21:24 Atorvastatin Calcium 80 Mg Tablet PO 80 mg BEDTIME RAGHAVENDRA Administration Enalapril Maleate 20 mg 10/05/20 12:00 11/26/20 09:24 Enalapril Maleate 10 Mg Tablet PO 20 mg BID RAGHAVENDRA Administration Enoxaparin Sodium 40 mg 10/07/20 08:00 11/26/20 09:25 Enoxaparin Sodium 40 Mg/0.4 Ml Syringe SUBCUT 40 mg Q24H RAGHAVENDRA Administration Hydralazine HCl 100 mg 11/05/20 15:00 11/26/20 09:23 Hydralazine Hcl 50 Mg Tablet PO 100 mg TID RAGHAVENDRA Administration Protocol Hydrochlorothiazide 25 mg 11/16/20 09:00 11/26/20 09:24 Hydrochlorothiazide 25 Mg Tablet PO 25 mg DAILY [facility] Administration Protocol Hydroxyzine HCl 25 mg 09/25/20 19:19 10/05/20 21:11 Hydroxyzine Hcl 25 Mg Tablet PO 25 mg Q8H PRN Administration Restlessness Insulin Human Lispro 0 unit 09/21/20 07:30 11/26/20 11:39 Insulin Lispro 100 Unit/Ml 3 Ml Vial SUBCUT 8 unit QIDACHS [facility] Administration Protocol Levothyroxine Sodium 75 mcg 09/21/20 06:30 11/26/20 06:28 Levothyroxine Sodium 75 Mcg Tablet PO 75 mcg DAILY@0630 RAGHAVENDRA Administration Loperamide HCl 2 mg 10/11/20 08:21 11/24/20 08:36 Loperamide Hcl 2 Mg Capsule PO 2 mg Q6H PRN Administration Constipation Metformin HCl 500 mg 10/10/20 17:00 11/26/20 09:24 Metformin Hcl 500 Mg Tablet PO 500 mg BIDWM RAGHAVENDRA Administration Nifedipine 30 mg 11/16/20 09:00 11/26/20 09:24 Nifedipine Er 30 Mg Tab.Er.24 PO 30 mg DAILY RAGHAVENDRA Administration Protocol Pharmacy Consult 1 each 09/20/20 18:27 Consult Rx Perform Med Rec MISCELLANE ONCE PRN Consult order Sodium Chloride 3 ml 09/21/20 00:00 11/26/20 09:26 0.9 % Sodium Chloride Flush 3 Ml Syringe IVFLUSH Not Given QSHIFT [facility] Trazodone HCl 25 mg 09/25/20 19:19 10/08/20 21:02 Trazodone Hcl 25 Mg Halftab PO 25 mg BEDTIME PRN Administration Insomnia Vancomycin HCl 125 mg 11/24/20 11:45 11/26/20 11:39 Vancomycin Hcl 125 Mg Capsule PO 125 mg Q6H RAGHAVENDRA Administration Labs CBC & Chem 7: 11/25/20 05:48 11/25/20 05:48 Microbiology Microbiology Results: Microbiology 11/24/20 08:18 Stool Stool Culture - Preliminary Normal so far. 09/21/20 Unknown Urine clean catch - Clean Catch Midstream Urine Culture - Final No growth. Assessment and Plan (1) Neurocognitive disorder: Status: Acute Assessment and Plan: hospital d#64 85yo F with HTN, HLD, DM2, hypothyroidism, CAD s/p PCI admitted with falls, elevated troponin C diff infection diarrhea improved No antibiotic received during this hospital stay Continue vancomycin orally D3/14 cognitive impairment Evaluated by psychiatry- does need guardianship Temp. HTN continue enelapril, hydralazine, hctz, nifedipine bp decently control acute grief reaction grieving over of . counseling support given. Hx CAD seen by Cardiology and recommended medical treatment as stable CAD with ASA + statin; HR too low for B-derrek DM2 with hypoglycemia d/c'ed GPZ; continue correction-dose lispro + MTF hypothyroidism continue LT4 VTE ppx LMWH Dispo Waiting conservatorship to help her with her finances but still trying to identify a possible conservator
[2020-11-26 16:21] LABS: Glucose, Whole Blood 48 mg/dL (60-115)
[2020-11-26 20:53] LABS: Glucose, Whole Blood 112 mg/dL (60-115)
[2020-11-26] MEDS: Atorvastatin Calcium 80 MG TABLET PO (21:07)
[2020-11-27] VITALS: BP 134/62; PULSE 80; RESP 18; TEMP 36.7; O2SAT 96
[2020-11-27] MEDS: vancomycin HCL 125 MG CAPSULE PO ×4 (05:35→23:52)
[2020-11-27] MEDS: Levothyroxine Sodium 75 MCG TABLET PO (05:35)
[2020-11-27 07:26] LABS: Glucose, Whole Blood 134 mg/dL (60-115)
[2020-11-27 08:00] VITALS: BP 168/76; PULSE 72; RESP 20; TEMP 36.2; O2SAT 93
[2020-11-27] MEDS: Enalapril Maleate 10 MG TABLET 20 MG PO ×2 (08:58→21:06)
[2020-11-27] MEDS: hydrALAZINE HCl 50 MG TABLET 100 MG PO ×3 (08:58→21:07)
[2020-11-27] MEDS: Enoxaparin Sodium 40 MG/0.4 ML SYRINGE SUBCUT (08:58)
[2020-11-27] MEDS: NIFEdipine ER 30 MG TAB.ER.24 PO (08:59)
[2020-11-27] MEDS: metFORMIN HCl 500 MG TABLET PO ×2 (08:59→16:59)
[2020-11-27] MEDS: hydroCHLOROthiazide 25 MG TABLET PO (08:59)
[2020-11-27] MEDS: Aspirin 81 MG TAB.CHEW PO (08:59)
[2020-11-27 11:21] LABS: Glucose, Whole Blood 263 mg/dL (60-115)
[2020-11-27] MEDS: Insulin Lispro 100 UNIT/ML 3 ML VIAL SUBCUT (11:21)
--- NOTE | 2020-11-27 15:49 | P.PNIM_ITS ---
Subjective Subjective Date of Service: 11/27/20 Interval History: The patient was seen and evaluated this morning Sitting in her bed, feels distressed about being forced testing the hospital and wants to leave home. no reported diarrhea Denies any fever, chills or shortness of breath No reported other overnight events. Systemic review: No fever, chills or weakness No chest pain, palpitation No shortness of breath or coughing No abdominal pain, nausea or vomiting No urinary symptoms Physical Exam Vital Signs: Vital Signs: Last Vital Signs Temp 97.2 F 11/27/20 08:00 Pulse 72 11/27/20 08:00 Resp 20 11/27/20 08:00 BP 168/76 H 11/27/20 08:00 Pulse Ox 93 11/27/20 08:00 Body Mass Index 20.2 Const: Other: Constitutional : Alert, not in distress Neck : Normal inspection, Supple Cardiovascular : RRR, S1 S2, no lower extremity edema Respiratory : Good bilateral air entry, no crackles, wheezes or rhonchi Gastrointestinal: soft, lax, Normal bowel sounds, Non tender Skin : Warm/Dry, No rash Neurological : Alert , interactive, No focal deficit Objective Data Current Medications Generic Name Dose Route Start Last Admin Trade Name Freq PRN Reason Stop Dose Admin Acetaminophen 650 mg 09/28/20 11:39 10/27/20 11:12 Acetaminophen 325 Mg Tablet PO 650 mg Q6H PRN Administration PAINFEV Aspirin 81 mg 09/21/20 09:00 11/27/20 08:59 Aspirin 81 Mg Tab.Chew PO 81 mg DAILY RAGHAVENDRA Administration Atorvastatin Calcium 80 mg 10/04/20 21:00 11/26/20 21:07 Atorvastatin Calcium 80 Mg Tablet PO 80 mg BEDTIME RAGHAVENDRA Administration Enalapril Maleate 20 mg 10/05/20 12:00 11/27/20 08:58 Enalapril Maleate 10 Mg Tablet PO 20 mg BID RAGHAVENDRA Administration Enoxaparin Sodium 40 mg 10/07/20 08:00 11/27/20 08:58 Enoxaparin Sodium 40 Mg/0.4 Ml Syringe SUBCUT 40 mg Q24H RAGHAVENDRA Administration Hydralazine HCl 100 mg 11/05/20 15:00 11/27/20 13:45 Hydralazine Hcl 50 Mg Tablet PO 100 mg TID RAGHAVENDRA Administration Protocol Hydrochlorothiazide 25 mg 11/16/20 09:00 11/27/20 08:59 Hydrochlorothiazide 25 Mg Tablet PO 25 mg DAILY [facility] Administration Protocol Hydroxyzine HCl 25 mg 09/25/20 19:19 10/05/20 21:11 Hydroxyzine Hcl 25 Mg Tablet PO 25 mg Q8H PRN Administration Restlessness Insulin Human Lispro 0 unit 09/21/20 07:30 11/27/20 11:21 Insulin Lispro 100 Unit/Ml 3 Ml Vial SUBCUT 6 unit QIDACHS [facility] Administration Protocol Levothyroxine Sodium 75 mcg 09/21/20 06:30 11/27/20 05:35 Levothyroxine Sodium 75 Mcg Tablet PO 75 mcg DAILY@0630 RAGHAVENDRA Administration Loperamide HCl 2 mg 10/11/20 08:21 11/24/20 08:36 Loperamide Hcl 2 Mg Capsule PO 2 mg Q6H PRN Administration Constipation Metformin HCl 500 mg 10/10/20 17:00 11/27/20 08:59 Metformin Hcl 500 Mg Tablet PO 500 mg BIDWM RAGHAVENDRA Administration Nifedipine 30 mg 11/16/20 09:00 11/27/20 08:59 Nifedipine Er 30 Mg Tab.Er.24 PO 30 mg DAILY RAGHAVENDRA Administration Protocol Pharmacy Consult 1 each 09/20/20 18:27 Consult Rx Perform Med Rec MISCELLANE ONCE PRN Consult order Sodium Chloride 3 ml 09/21/20 00:00 11/27/20 08:56 0.9 % Sodium Chloride Flush 3 Ml Syringe IVFLUSH Not Given QSHIFT [facility] Trazodone HCl 25 mg 09/25/20 19:19 10/08/20 21:02 Trazodone Hcl 25 Mg Halftab PO 25 mg BEDTIME PRN Administration Insomnia Vancomycin HCl 125 mg 11/24/20 11:45 11/27/20 11:21 Vancomycin Hcl 125 Mg Capsule PO 125 mg Q6H RAGHAVENDRA Administration Labs CBC & Chem 7: 11/25/20 05:48 11/25/20 05:48 Microbiology Microbiology Results: Microbiology 11/24/20 08:18 Stool Stool Culture - Final 09/21/20 Unknown Urine clean catch - Clean Catch Midstream Urine Culture - Final No growth. Assessment and Plan (1) Neurocognitive disorder: Status: Acute Assessment and Plan: hospital d#65 85yo F with HTN, HLD, DM2, hypothyroidism, CAD s/p PCI admitted with falls, elevated troponin C diff infection diarrhea improved No antibiotic received during this hospital stay Continue vancomycin orally D4/14 cognitive impairment Evaluated by psychiatry- does need guardianship Temp. HTN Blood pressure continue to be elevated continue enelapril, hydralazine, hctz, nifedipine To increase nifedipine to 60 Daily acute grief reaction grieving over of . counseling support given. Hx CAD seen by Cardiology and recommended medical treatment as stable CAD with ASA + statin; HR too low for B-derrek DM2 with hypoglycemia d/c'ed GPZ; continue correction-dose lispro + MTF hypothyroidism continue LT4 VTE ppx LMWH Dispo Waiting conservatorship to help her with her finances but still trying to identify a possible conservator
[2020-11-27 16:00] VITALS: BP 165/75; PULSE 60; RESP 20; TEMP 36.6; O2SAT 95
[2020-11-27 16:35] LABS: Glucose, Whole Blood 86 mg/dL (60-115)
[2020-11-27] MEDS: 0.9 % Sodium Chloride Flush 3 ML SYRINGE IVFLUSH (16:59)
[2020-11-27 20:26] LABS: Glucose, Whole Blood 110 mg/dL (60-115)
[2020-11-27] MEDS: Atorvastatin Calcium 80 MG TABLET PO (21:02)
[2020-11-27 21:06] VITALS: BP 185/124; PULSE 83
[2020-11-27 21:07] VITALS: BP 185/124; PULSE 83
[2020-11-27 23:08] VITALS: BP 136/82; PULSE 75; RESP 18; TEMP 36.3; O2SAT 98
[2020-11-28] MEDS: vancomycin HCL 125 MG CAPSULE PO ×3 (06:07→16:58)
[2020-11-28] MEDS: Levothyroxine Sodium 75 MCG TABLET PO (06:07)
[2020-11-28 07:29] LABS: Glucose, Whole Blood 131 mg/dL (60-115)
[2020-11-28 07:46] VITALS: BP 162/79; PULSE 53; RESP 16; TEMP 36.8; O2SAT 96
[2020-11-28] MEDS: hydroCHLOROthiazide 25 MG TABLET PO (08:28)
[2020-11-28] MEDS: Aspirin 81 MG TAB.CHEW PO (08:28)
[2020-11-28] MEDS: Enalapril Maleate 10 MG TABLET 20 MG PO ×2 (08:28→20:07)
[2020-11-28] MEDS: metFORMIN HCl 500 MG TABLET PO ×2 (08:28→16:58)
[2020-11-28] MEDS: hydrALAZINE HCl 50 MG TABLET 100 MG PO ×3 (08:28→20:09)
[2020-11-28] MEDS: Enoxaparin Sodium 40 MG/0.4 ML SYRINGE SUBCUT (08:29)
[2020-11-28] MEDS: NIFEdipine ER 30 MG TAB.ER.24 60 MG PO (08:29)
[2020-11-28 11:20] LABS: Glucose, Whole Blood 227 mg/dL (60-115)
--- NOTE | 2020-11-28 12:18 | P.PNIM_ITS ---
Subjective Subjective Date of Service: 11/28/20 Interval History: The patient was seen and evaluated this morning Sitting in her bed, feels distressed about being in the hospital wants to leave home. no reported diarrhea Denies any fever, chills or shortness of breath No reported other overnight events. Systemic review: No fever, chills or weakness No chest pain, palpitation No shortness of breath or coughing No abdominal pain, nausea or vomiting No urinary symptoms Physical Exam Vital Signs: Vital Signs: Last Vital Signs Temp 98.3 F 11/28/20 07:46 Pulse 53 11/28/20 07:46 Resp 16 11/28/20 07:46 BP 162/79 H 11/28/20 07:46 Pulse Ox 96 11/28/20 07:46 Body Mass Index 20.2 Const: Other: Constitutional : Alert, not in distress Neck : Normal inspection, Supple Cardiovascular : RRR, S1 S2, no lower extremity edema Respiratory : Good bilateral air entry, no crackles, wheezes or rhonchi Gastrointestinal: soft, lax, Normal bowel sounds, Non tender Skin : Warm/Dry, No rash Neurological : Alert , interactive, No focal deficit Objective Data Current Medications Generic Name Dose Route Start Last Admin Trade Name Freq PRN Reason Stop Dose Admin Acetaminophen 650 mg 09/28/20 11:39 10/27/20 11:12 Acetaminophen 325 Mg Tablet PO 650 mg Q6H PRN Administration PAINFEV Aspirin 81 mg 09/21/20 09:00 11/28/20 08:28 Aspirin 81 Mg Tab.Chew PO 81 mg DAILY RAGHAVENDRA Administration Atorvastatin Calcium 80 mg 10/04/20 21:00 11/27/20 21:02 Atorvastatin Calcium 80 Mg Tablet PO 80 mg BEDTIME RAGHAVENDRA Administration Enalapril Maleate 20 mg 10/05/20 12:00 11/28/20 08:28 Enalapril Maleate 10 Mg Tablet PO 20 mg BID RAGHAVENDRA Administration Enoxaparin Sodium 40 mg 10/07/20 08:00 11/28/20 08:29 Enoxaparin Sodium 40 Mg/0.4 Ml Syringe SUBCUT 40 mg Q24H RAGHAVENDRA Administration Hydralazine HCl 100 mg 11/05/20 15:00 11/28/20 08:28 Hydralazine Hcl 50 Mg Tablet PO 100 mg TID RAGHAVENDRA Administration Protocol Hydrochlorothiazide 25 mg 11/16/20 09:00 11/28/20 08:28 Hydrochlorothiazide 25 Mg Tablet PO 25 mg DAILY [facility] Administration Protocol Hydroxyzine HCl 25 mg 09/25/20 19:19 10/05/20 21:11 Hydroxyzine Hcl 25 Mg Tablet PO 25 mg Q8H PRN Administration Restlessness Insulin Human Lispro 0 unit 09/21/20 07:30 11/28/20 08:03 Insulin Lispro 100 Unit/Ml 3 Ml Vial SUBCUT Not Given QIDACHS [facility] Protocol Levothyroxine Sodium 75 mcg 09/21/20 06:30 11/28/20 06:07 Levothyroxine Sodium 75 Mcg Tablet PO 75 mcg DAILY@0630 RAGHAVENDRA Administration Loperamide HCl 2 mg 10/11/20 08:21 11/24/20 08:36 Loperamide Hcl 2 Mg Capsule PO 2 mg Q6H PRN Administration Constipation Metformin HCl 500 mg 10/10/20 17:00 11/28/20 08:28 Metformin Hcl 500 Mg Tablet PO 500 mg BIDWM RAGHAVENDRA Administration Nifedipine 60 mg 11/28/20 09:00 11/28/20 08:29 Nifedipine Er 30 Mg Tab.Er.24 PO 60 mg DAILY RAGHAVENDRA Administration Protocol Pharmacy Consult 1 each 09/20/20 18:27 Consult Rx Perform Med Rec MISCELLANE ONCE PRN Consult order Sodium Chloride 3 ml 09/21/20 00:00 11/28/20 08:03 0.9 % Sodium Chloride Flush 3 Ml Syringe IVFLUSH Not Given QSHIFT [facility] Trazodone HCl 25 mg 09/25/20 19:19 10/08/20 21:02 Trazodone Hcl 25 Mg Halftab PO 25 mg BEDTIME PRN Administration Insomnia Vancomycin HCl 125 mg 11/24/20 11:45 11/28/20 06:07 Vancomycin Hcl 125 Mg Capsule PO 125 mg Q6H RAGHAVENDRA Administration Labs CBC & Chem 7: 11/25/20 05:48 11/25/20 05:48 Microbiology Microbiology Results: Microbiology 11/24/20 08:18 Stool Stool Culture - Final 09/21/20 Unknown Urine clean catch - Clean Catch Midstream Urine Culture - Final No growth. Assessment and Plan (1) Neurocognitive disorder: Status: Acute Assessment and Plan: hospital d#66 85yo F with HTN, HLD, DM2, hypothyroidism, CAD s/p PCI admitted with falls, elevated troponin C diff infection diarrhea improved No antibiotic received during this hospital stay Continue vancomycin orally D5/14 cognitive impairment Evaluated by psychiatry- does need guardianship Temp. HTN Blood pressure continue to be elevated continue enelapril, hydralazine, hctz, nifedipine increase nifedipine to 60 Daily acute grief reaction grieving over of . counseling support given. Hx CAD seen by Cardiology and recommended medical treatment as stable CAD with ASA + statin; HR too low for B-derrek DM2 with hypoglycemia d/c'ed GPZ; continue correction-dose lispro + MTF hypothyroidism continue LT4 VTE ppx LMWH Dispo Waiting conservatorship to help her with her finances but still trying to identify a possible conservator
[2020-11-28] MEDS: Insulin Lispro 100 UNIT/ML 3 ML VIAL SUBCUT (12:31)
[2020-11-28 15:18] VITALS: BP 149/66; PULSE 60; RESP 18; TEMP 36.1; O2SAT 98
[2020-11-28 15:24] VITALS: BP 149/66; PULSE 60
[2020-11-28 16:16] LABS: Glucose, Whole Blood 126 mg/dL (60-115)
[2020-11-28 20:07] VITALS: BP 144/71; PULSE 70
[2020-11-28] MEDS: Atorvastatin Calcium 80 MG TABLET PO (20:07)
[2020-11-28 20:58] LABS: Glucose, Whole Blood 138 mg/dL (60-115)
[2020-11-29] VITALS: BP 132/57; PULSE 63; RESP 18; TEMP 36.5; O2SAT 97
[2020-11-29] MEDS: vancomycin HCL 125 MG CAPSULE PO ×4 (00:58→17:03)
[2020-11-29] MEDS: Levothyroxine Sodium 75 MCG TABLET PO (06:02)
[2020-11-29 07:24] LABS: Glucose, Whole Blood 169 mg/dL (60-115)
[2020-11-29 07:44] VITALS: BP 145/69; PULSE 61; RESP 18; TEMP 36.2; O2SAT 96
[2020-11-29] MEDS: Enalapril Maleate 10 MG TABLET 20 MG PO ×2 (08:28→20:46)
[2020-11-29] MEDS: Aspirin 81 MG TAB.CHEW PO (08:28)
[2020-11-29] MEDS: hydrALAZINE HCl 50 MG TABLET 100 MG PO ×3 (08:28→20:45)
[2020-11-29] MEDS: metFORMIN HCl 500 MG TABLET PO ×2 (08:28→17:03)
[2020-11-29] MEDS: NIFEdipine ER 30 MG TAB.ER.24 60 MG PO (08:28)
[2020-11-29] MEDS: hydroCHLOROthiazide 25 MG TABLET PO (08:29)
[2020-11-29] MEDS: Insulin Lispro 100 UNIT/ML 3 ML VIAL SUBCUT ×3 (08:29→20:47)
[2020-11-29] MEDS: 0.9 % Sodium Chloride Flush 3 ML SYRINGE IVFLUSH ×2 (08:29→20:52)
[2020-11-29] MEDS: Enoxaparin Sodium 40 MG/0.4 ML SYRINGE SUBCUT (08:29)
[2020-11-29 12:36] LABS: Glucose, Whole Blood 226 mg/dL (60-115)
--- NOTE | 2020-11-29 13:01 | HO.PM.IMPN ---
Subjective Subjective Date of Service: 11/29/20 Interval History: wants to go home Cardiovascular Cardiovascular: Reports no additional cardiovascular complaints Respiratory Respiratory: Reports no additional respiratory complaints Physical Exam Vital Signs: Vital Signs: Last Vital Signs Temp 97.1 F 11/29/20 07:44 Pulse 61 11/29/20 07:44 Resp 18 11/29/20 07:44 BP 145/69 H 11/29/20 07:44 Pulse Ox 96 11/29/20 07:44 Body Mass Index 20.2 General: AO X 3, no acute distress Resp: CTA bilateral CVS: S1,S2,RRR GI: soft, non tender, non distended Neuro: motor grossly intact Psych: impaired insight Objective Data Current Medications Generic Name Dose Route Start Last Admin Trade Name Freq PRN Reason Stop Dose Admin Acetaminophen 650 mg 09/28/20 11:39 10/27/20 11:12 Acetaminophen 325 Mg Tablet PO 650 mg Q6H PRN Administration PAINFEV Aspirin 81 mg 09/21/20 09:00 11/29/20 08:28 Aspirin 81 Mg Tab.Chew PO 81 mg DAILY RAGHAVENDRA Administration Atorvastatin Calcium 80 mg 10/04/20 21:00 11/28/20 20:07 Atorvastatin Calcium 80 Mg Tablet PO 80 mg BEDTIME RAGHAVENDRA Administration Enalapril Maleate 20 mg 10/05/20 12:00 11/29/20 08:28 Enalapril Maleate 10 Mg Tablet PO 20 mg BID RAGHAVENDRA Administration Enoxaparin Sodium 40 mg 10/07/20 08:00 11/29/20 08:29 Enoxaparin Sodium 40 Mg/0.4 Ml Syringe SUBCUT 40 mg Q24H RAGHAVENDRA Administration Hydralazine HCl 100 mg 11/05/20 15:00 11/29/20 08:28 Hydralazine Hcl 50 Mg Tablet PO 100 mg TID RAGHAVENDRA Administration Protocol Hydrochlorothiazide 25 mg 11/16/20 09:00 11/29/20 08:29 Hydrochlorothiazide 25 Mg Tablet PO 25 mg DAILY RAGHAVENDRA Administration Protocol Hydroxyzine HCl 25 mg 09/25/20 19:19 10/05/20 21:11 Hydroxyzine Hcl 25 Mg Tablet PO 25 mg Q8H PRN Administration Restlessness Insulin Human Lispro 0 unit 09/21/20 07:30 11/29/20 11:57 Insulin Lispro 100 Unit/Ml 3 Ml Vial SUBCUT 4 unit QIDACHS [facility] Administration Protocol Levothyroxine Sodium 75 mcg 09/21/20 06:30 11/29/20 06:02 Levothyroxine Sodium 75 Mcg Tablet PO 75 mcg DAILY@0630 RAGHAVENDRA Administration Loperamide HCl 2 mg 10/11/20 08:21 11/24/20 08:36 Loperamide Hcl 2 Mg Capsule PO 2 mg Q6H PRN Administration Constipation Metformin HCl 500 mg 10/10/20 17:00 11/29/20 08:28 Metformin Hcl 500 Mg Tablet PO 500 mg BIDWM RAGHAVENDRA Administration Nifedipine 60 mg 11/28/20 09:00 11/29/20 08:28 Nifedipine Er 30 Mg Tab.Er.24 PO 60 mg DAILY RAGHAVENDRA Administration Protocol Pharmacy Consult 1 each 09/20/20 18:27 Consult Rx Perform Med Rec MISCELLANE ONCE PRN Consult order Sodium Chloride 3 ml 09/21/20 00:00 11/29/20 08:29 0.9 % Sodium Chloride Flush 3 Ml Syringe IVFLUSH 3 ml QSHIFT RAGHAVENDRA Administration Trazodone HCl 25 mg 09/25/20 19:19 10/08/20 21:02 Trazodone Hcl 25 Mg Halftab PO 25 mg BEDTIME PRN Administration Insomnia Vancomycin HCl 125 mg 11/24/20 11:45 11/29/20 11:57 Vancomycin Hcl 125 Mg Capsule PO 125 mg Q6H RAGHAVENDRA Administration Labs CBC & Chem 7: 11/25/20 05:48 11/25/20 05:48 Microbiology Microbiology Results: Microbiology 11/24/20 08:18 Stool Stool Culture - Final 09/21/20 Unknown Urine clean catch - Clean Catch Midstream Urine Culture - Final No growth. Assessment and Plan (1) Neurocognitive disorder: Status: Acute Assessment and Plan: hospital d#66 85yo F with HTN, HLD, DM2, hypothyroidism, CAD s/p PCI admitted with falls, elevated troponin C diff infection diarrhea improved Continue vancomycin orally D6/14 cognitive impairment Evaluated by psychiatry- does need guardianship Temp. HTN Blood pressure continue to be elevated continue enelapril, hydralazine, hctz, nifedipine increased nifedipine to 60 Daily acute grief reaction grieving over of . counseling support given. Hx CAD seen by Cardiology and recommended medical treatment as stable CAD with ASA + statin; HR too low for B-derrek DM2 with hypoglycemia d/c'ed GPZ; continue correction-dose lispro + MTF hypothyroidism continue LT4 VTE ppx LMWH Dispo Waiting conservatorship to help her with her finances but still trying to identify a possible conservator
[2020-11-29 16:00] VITALS: BP 144/61; PULSE 82; RESP 18; TEMP 36.2; O2SAT 97
[2020-11-29 16:28] LABS: Glucose, Whole Blood 122 mg/dL (60-115)
[2020-11-29 20:37] LABS: Glucose, Whole Blood 191 mg/dL (60-115)
[2020-11-29 20:45] VITALS: BP 144/61; PULSE 82
[2020-11-29 20:46] VITALS: BP 144/61; PULSE 82
[2020-11-29] MEDS: Atorvastatin Calcium 80 MG TABLET PO (20:46)
[2020-11-30] VITALS (8 sets, daily range): BP systolic 151–166; BP diastolic 68–91; PULSE 62–80; RESP 16–18; TEMP 36.2–36.8; O2SAT 97–98
[2020-11-30] MEDS: vancomycin HCL 125 MG CAPSULE PO ×5 (00:08→23:36)
[2020-11-30] MEDS: Levothyroxine Sodium 75 MCG TABLET PO (06:11)
[2020-11-30 09:02] LABS: Glucose, Whole Blood 129 mg/dL (60-115)
[2020-11-30] MEDS: Enoxaparin Sodium 40 MG/0.4 ML SYRINGE SUBCUT (09:44)
[2020-11-30] MEDS: Aspirin 81 MG TAB.CHEW PO (09:45)
[2020-11-30] MEDS: hydrALAZINE HCl 50 MG TABLET 100 MG PO ×3 (09:45→20:55)
[2020-11-30] MEDS: hydroCHLOROthiazide 25 MG TABLET PO (09:45)
[2020-11-30] MEDS: NIFEdipine ER 30 MG TAB.ER.24 60 MG PO (09:45)
[2020-11-30] MEDS: Enalapril Maleate 10 MG TABLET 20 MG PO ×2 (09:46→20:54)
[2020-11-30] MEDS: metFORMIN HCl 500 MG TABLET PO ×2 (09:46→17:06)
--- NOTE | 2020-11-30 11:29 | P.PNIM_ITS ---
Subjective Subjective Date of Service: 11/30/20 Interval History: wants to go home Cardiovascular Cardiovascular: Reports no additional cardiovascular complaints Gastrointestinal Gastrointestinal: Reports no additional gastrointestinal complaints Physical Exam Vital Signs: Vital Signs: Last Vital Signs Temp 97.7 F 11/30/20 08:00 Pulse 80 11/30/20 09:46 Resp 17 11/30/20 08:00 BP 166/73 H 11/30/20 09:46 Pulse Ox 97 11/30/20 08:00 Body Mass Index 20.2 General: AO X 3, no acute distress Resp: CTA bilateral CVS: S1,S2,RRR GI: soft, non tender, non distended Neuro: motor grossly intact Psych: impaired insight Objective Data Current Medications Generic Name Dose Route Start Last Admin Trade Name Freq PRN Reason Stop Dose Admin Acetaminophen 650 mg 09/28/20 11:39 10/27/20 11:12 Acetaminophen 325 Mg Tablet PO 650 mg Q6H PRN Administration PAINFEV Aspirin 81 mg 09/21/20 09:00 11/30/20 09:45 Aspirin 81 Mg Tab.Chew PO 81 mg DAILY RAGHAVENDRA Administration Atorvastatin Calcium 80 mg 10/04/20 21:00 11/29/20 20:46 Atorvastatin Calcium 80 Mg Tablet PO 80 mg BEDTIME RAGHAVENDRA Administration Enalapril Maleate 20 mg 10/05/20 12:00 11/30/20 09:46 Enalapril Maleate 10 Mg Tablet PO 20 mg BID RAGHAVENDRA Administration Enoxaparin Sodium 40 mg 10/07/20 08:00 11/30/20 09:44 Enoxaparin Sodium 40 Mg/0.4 Ml Syringe SUBCUT 40 mg Q24H RAGHAVENDRA Administration Hydralazine HCl 100 mg 11/05/20 15:00 11/30/20 09:45 Hydralazine Hcl 50 Mg Tablet PO 100 mg TID RAGHAVENDRA Administration Protocol Hydrochlorothiazide 25 mg 11/16/20 09:00 11/30/20 09:45 Hydrochlorothiazide 25 Mg Tablet PO 25 mg DAILY RAGHAVENDRA Administration Protocol Hydroxyzine HCl 25 mg 09/25/20 19:19 10/05/20 21:11 Hydroxyzine Hcl 25 Mg Tablet PO 25 mg Q8H PRN Administration Restlessness Insulin Human Lispro 0 unit 09/21/20 07:30 11/30/20 09:09 Insulin Lispro 100 Unit/Ml 3 Ml Vial SUBCUT Not Given QIDACHS [facility] Protocol Levothyroxine Sodium 75 mcg 09/21/20 06:30 11/30/20 06:11 Levothyroxine Sodium 75 Mcg Tablet PO 75 mcg DAILY@0630 RAGHAVENDRA Administration Loperamide HCl 2 mg 10/11/20 08:21 11/24/20 08:36 Loperamide Hcl 2 Mg Capsule PO 2 mg Q6H PRN Administration Constipation Metformin HCl 500 mg 10/10/20 17:00 11/30/20 09:46 Metformin Hcl 500 Mg Tablet PO 500 mg BIDWM RAGHAVENDRA Administration Nifedipine 60 mg 11/28/20 09:00 11/30/20 09:45 Nifedipine Er 30 Mg Tab.Er.24 PO 60 mg DAILY RAGHAVENDRA Administration Protocol Pharmacy Consult 1 each 09/20/20 18:27 Consult Rx Perform Med Rec MISCELLANE ONCE PRN Consult order Sodium Chloride 3 ml 09/21/20 00:00 11/30/20 09:44 0.9 % Sodium Chloride Flush 3 Ml Syringe IVFLUSH Not Given QSHIFT [facility] [place] Trazodone HCl 25 mg 09/25/20 19:19 10/08/20 21:02 Trazodone Hcl 25 Mg Halftab PO 25 mg BEDTIME PRN Administration Insomnia Vancomycin HCl 125 mg 11/24/20 11:45 11/30/20 06:11 Vancomycin Hcl 125 Mg Capsule PO 125 mg Q6H RAGHAVENDRA Administration Labs CBC & Chem 7: 11/25/20 05:48 11/25/20 05:48 Microbiology Microbiology Results: Microbiology 11/24/20 08:18 Stool Stool Culture - Final 09/21/20 Unknown Urine clean catch - Clean Catch Midstream Urine Culture - Final No growth. Assessment and Plan (1) Neurocognitive disorder: Status: Acute Assessment and Plan: hospital d#66 85yo F with HTN, HLD, DM2, hypothyroidism, CAD s/p PCI admitted with falls, elevated troponin C diff infection diarrhea improved Continue vancomycin orally D7/14 cognitive impairment Evaluated by psychiatry- does need guardianship Temp. HTN Blood pressure continue to be elevated continue enelapril, hydralazine, hctz, nifedipine increased nifedipine to 60 Daily acute grief reaction grieving over of . counseling support given. Hx CAD seen by Cardiology and recommended medical treatment as stable CAD with ASA + statin; HR too low for B-derrek DM2 with hypoglycemia d/c'ed GPZ; continue correction-dose lispro + MTF hypothyroidism continue LT4 VTE ppx LMWH Dispo Waiting conservatorship to help her with her finances but still trying to identify a possible conservator
[2020-11-30 11:59] LABS: Glucose, Whole Blood 154 mg/dL (60-115)
[2020-11-30] MEDS: Insulin Lispro 100 UNIT/ML 3 ML VIAL SUBCUT (12:08)
[2020-11-30 16:32] LABS: Glucose, Whole Blood 138 mg/dL (60-115)
[2020-11-30 20:27] LABS: Glucose, Whole Blood 131 mg/dL (60-115)
[2020-11-30] MEDS: Atorvastatin Calcium 80 MG TABLET PO (20:54)
[2020-12-01] VITALS (9 sets, daily range): BP systolic 128–150; BP diastolic 60–77; PULSE 53–65; RESP 12–18; TEMP 36.2–36.6; O2SAT 96–98; BMI 20.2
[2020-12-01] MEDS: Levothyroxine Sodium 75 MCG TABLET PO (06:38)
[2020-12-01] MEDS: vancomycin HCL 125 MG CAPSULE PO ×2 (06:38→11:43)
[2020-12-01 07:59] LABS: Glucose, Whole Blood 129 mg/dL (60-115)
[2020-12-01] MEDS: hydrALAZINE HCl 50 MG TABLET 100 MG PO ×3 (08:30→21:07)
[2020-12-01] MEDS: Enoxaparin Sodium 40 MG/0.4 ML SYRINGE SUBCUT (08:30)
[2020-12-01] MEDS: hydroCHLOROthiazide 25 MG TABLET PO (08:30)
[2020-12-01] MEDS: NIFEdipine ER 30 MG TAB.ER.24 60 MG PO (08:31)
[2020-12-01] MEDS: Aspirin 81 MG TAB.CHEW PO (08:31)
[2020-12-01] MEDS: Enalapril Maleate 10 MG TABLET 20 MG PO ×2 (08:31→21:06)
[2020-12-01] MEDS: metFORMIN HCl 500 MG TABLET PO (08:31)
--- NOTE | 2020-12-01 09:33 | HO.PM.IMPN ---
Subjective Subjective Date of Service: 12/01/20 Interval History: wants to go home Cardiovascular Cardiovascular: Reports no additional cardiovascular complaints Gastrointestinal Gastrointestinal: Reports no additional gastrointestinal complaints Physical Exam Vital Signs: Vital Signs: Last Vital Signs Temp 97.8 F 12/01/20 07:42 Pulse 62 12/01/20 08:31 Resp 18 12/01/20 07:42 BP 143/77 H 12/01/20 08:31 Pulse Ox 96 12/01/20 07:42 Body Mass Index 20.2 General: AO X 3, no acute distress Resp: CTA bilateral CVS: S1,S2,RRR GI: soft, non tender, non distended Neuro: motor grossly intact Psych: impaired insight Objective Data Current Medications Generic Name Dose Route Start Last Admin Trade Name Freq PRN Reason Stop Dose Admin Acetaminophen 650 mg 09/28/20 11:39 10/27/20 11:12 Acetaminophen 325 Mg Tablet PO 650 mg Q6H PRN Administration PAINFEV Aspirin 81 mg 09/21/20 09:00 12/01/20 08:31 Aspirin 81 Mg Tab.Chew PO 81 mg DAILY RAGHAVENDRA Administration Atorvastatin Calcium 80 mg 10/04/20 21:00 11/30/20 20:54 Atorvastatin Calcium 80 Mg Tablet PO 80 mg BEDTIME RAGHAVENDRA Administration Enalapril Maleate 20 mg 10/05/20 12:00 12/01/20 08:31 Enalapril Maleate 10 Mg Tablet PO 20 mg BID RAGHAVENDRA Administration Enoxaparin Sodium 40 mg 10/07/20 08:00 12/01/20 08:30 Enoxaparin Sodium 40 Mg/0.4 Ml Syringe SUBCUT 40 mg Q24H RAGHAVENDRA Administration Hydralazine HCl 100 mg 11/05/20 15:00 12/01/20 08:30 Hydralazine Hcl 50 Mg Tablet PO 100 mg TID RAGHVAENDRA Administration Protocol Hydrochlorothiazide 25 mg 11/16/20 09:00 12/01/20 08:30 Hydrochlorothiazide 25 Mg Tablet PO 25 mg DAILY RAGHAVENDRA Administration Protocol Hydroxyzine HCl 25 mg 09/25/20 19:19 10/05/20 21:11 Hydroxyzine Hcl 25 Mg Tablet PO 25 mg Q8H PRN Administration Restlessness Insulin Human Lispro 0 unit 09/21/20 07:30 12/01/20 08:05 Insulin Lispro 100 Unit/Ml 3 Ml Vial SUBCUT Not Given QIDACHS [facility] Protocol Levothyroxine Sodium 75 mcg 09/21/20 06:30 12/01/20 06:38 Levothyroxine Sodium 75 Mcg Tablet PO 75 mcg DAILY@0630 RAGHAVENDRA Administration Loperamide HCl 2 mg 10/11/20 08:21 11/24/20 08:36 Loperamide Hcl 2 Mg Capsule PO 2 mg Q6H PRN Administration Constipation Metformin HCl 500 mg 10/10/20 17:00 12/01/20 08:31 Metformin Hcl 500 Mg Tablet PO 500 mg BIDWM RAGHAVENDRA Administration Nifedipine 60 mg 11/28/20 09:00 12/01/20 08:31 Nifedipine Er 30 Mg Tab.Er.24 PO 60 mg DAILY RAGHAVENDRA Administration Protocol Pharmacy Consult 1 each 09/20/20 18:27 Consult Rx Perform Med Rec MISCELLANE ONCE PRN Consult order Sodium Chloride 3 ml 09/21/20 00:00 12/01/20 08:30 0.9 % Sodium Chloride Flush 3 Ml Syringe IVFLUSH Not Given QSHIFT [facility] Trazodone HCl 25 mg 09/25/20 19:19 10/08/20 21:02 Trazodone Hcl 25 Mg Halftab PO 25 mg BEDTIME PRN Administration Insomnia Vancomycin HCl 125 mg 11/24/20 11:45 12/01/20 06:38 Vancomycin Hcl 125 Mg Capsule PO 125 mg Q6H RAGHAVENDRA Administration Labs CBC & Chem 7: 11/25/20 05:48 11/25/20 05:48 Microbiology Microbiology Results: Microbiology 11/24/20 08:18 Stool Stool Culture - Final 09/21/20 Unknown Urine clean catch - Clean Catch Midstream Urine Culture - Final No growth. Assessment and Plan (1) Neurocognitive disorder: Status: Acute Assessment and Plan: hospital d#66 85yo F with HTN, HLD, DM2, hypothyroidism, CAD s/p PCI admitted with falls, elevated troponin C diff infection diarrhea improved Continue vancomycin orally D8/14 cognitive impairment Evaluated by psychiatry- does need guardianship Temp. HTN Blood pressure continue to be elevated continue enelapril, hydralazine, hctz, nifedipine improved acute grief reaction grieving over of . counseling support given. Hx CAD seen by Cardiology and recommended medical treatment as stable CAD with ASA + statin; HR too low for B-derrek DM2 with hypoglycemia d/c'ed GPZ; continue correction-dose lispro + MTF hypothyroidism continue LT4 VTE ppx LMWH Dispo Waiting conservatorship to help her with her finances but still trying to identify a possible conservator
[2020-12-01] MEDS: Insulin Lispro 100 UNIT/ML 3 ML VIAL SUBCUT ×2 (11:43→21:05)
[2020-12-01 11:47] LABS: Glucose, Whole Blood 252 mg/dL (60-115)
[2020-12-01 16:53] LABS: Glucose, Whole Blood 75 mg/dL (60-115)
[2020-12-01 20:31] LABS: Glucose, Whole Blood 170 mg/dL (60-115)
[2020-12-01] MEDS: Atorvastatin Calcium 80 MG TABLET PO (21:08)
[2020-12-02] VITALS (9 sets, daily range): BP systolic 155–166; BP diastolic 68–83; PULSE 57–71; RESP 14–18; TEMP 36.1–37.6; O2SAT 97–98
[2020-12-02] MEDS: Levothyroxine Sodium 75 MCG TABLET PO (05:50)
[2020-12-02 08:07] LABS: Glucose, Whole Blood 165 mg/dL (60-115)
[2020-12-02] MEDS: Insulin Lispro 100 UNIT/ML 3 ML VIAL SUBCUT ×3 (08:46→16:55)
[2020-12-02] MEDS: NIFEdipine ER 30 MG TAB.ER.24 60 MG PO (08:46)
[2020-12-02] MEDS: metFORMIN HCl 500 MG TABLET PO ×2 (08:46→16:55)
[2020-12-02] MEDS: hydroCHLOROthiazide 25 MG TABLET PO (08:47)
[2020-12-02] MEDS: Enalapril Maleate 10 MG TABLET 20 MG PO ×2 (08:47→21:10)
[2020-12-02] MEDS: Aspirin 81 MG TAB.CHEW PO (08:47)
[2020-12-02] MEDS: hydrALAZINE HCl 50 MG TABLET 100 MG PO ×3 (08:47→21:14)
[2020-12-02] MEDS: Enoxaparin Sodium 40 MG/0.4 ML SYRINGE SUBCUT (08:48)
[2020-12-02 09:16] LABS: Creatinine Clr Calc Pharmacy 33.2; Estimated Glomerular Filt Rate 50
[2020-12-02] MEDS: vancomycin HCL 125 MG CAPSULE PO ×3 (09:36→21:14)
--- NOTE | 2020-12-02 09:38 | P.PNIM_ITS ---
Subjective Subjective Date of Service: 12/02/20 Interval History: no new complaints Cardiovascular Cardiovascular: Reports no additional cardiovascular complaints Respiratory Respiratory: Reports no additional respiratory complaints Physical Exam Vital Signs: Vital Signs: Last Vital Signs Temp 96.9 F 12/02/20 07:39 Pulse 57 12/02/20 08:47 Resp 18 12/02/20 07:39 BP 166/83 H 12/02/20 08:47 Pulse Ox 97 12/02/20 07:39 Body Mass Index 20.2 General: AO X 3, no acute distress Resp: CTA bilateral CVS: S1,S2,RRR GI: soft, non tender, non distended Neuro: motor grossly intact Psych: impaired insight Objective Data Current Medications Generic Name Dose Route Start Last Admin Trade Name Freq PRN Reason Stop Dose Admin Acetaminophen 650 mg 09/28/20 11:39 10/27/20 11:12 Acetaminophen 325 Mg Tablet PO 650 mg Q6H PRN Administration PAINFEV Aspirin 81 mg 09/21/20 09:00 12/02/20 08:47 Aspirin 81 Mg Tab.Chew PO 81 mg DAILY RAGHAVENDRA Administration Atorvastatin Calcium 80 mg 10/04/20 21:00 12/01/20 21:08 Atorvastatin Calcium 80 Mg Tablet PO 80 mg BEDTIME RAGHAVENDRA Administration Enalapril Maleate 20 mg 10/05/20 12:00 12/02/20 08:47 Enalapril Maleate 10 Mg Tablet PO 20 mg BID RAGHAVENDRA Administration Enoxaparin Sodium 40 mg 10/07/20 08:00 12/02/20 08:48 Enoxaparin Sodium 40 Mg/0.4 Ml Syringe SUBCUT 40 mg Q24H RAGHAVENDRA Administration Hydralazine HCl 100 mg 11/05/20 15:00 12/02/20 08:47 Hydralazine Hcl 50 Mg Tablet PO 100 mg TID RAGHAVENDRA Administration Protocol Hydrochlorothiazide 25 mg 11/16/20 09:00 12/02/20 08:47 Hydrochlorothiazide 25 Mg Tablet PO 25 mg DAILY RAGHAVENDRA Administration Protocol Hydroxyzine HCl 25 mg 09/25/20 19:19 10/05/20 21:11 Hydroxyzine Hcl 25 Mg Tablet PO 25 mg Q8H PRN Administration Restlessness Insulin Human Lispro 0 unit 09/21/20 07:30 12/02/20 08:46 Insulin Lispro 100 Unit/Ml 3 Ml Vial SUBCUT 2 unit QIDACHS RAGHAVENDRA Administration Protocol Levothyroxine Sodium 75 mcg 09/21/20 06:30 12/02/20 05:50 Levothyroxine Sodium 75 Mcg Tablet PO 75 mcg DAILY@0630 RAGHAVENDRA Administration Loperamide HCl 2 mg 10/11/20 08:21 11/24/20 08:36 Loperamide Hcl 2 Mg Capsule PO 2 mg Q6H PRN Administration Constipation Metformin HCl 500 mg 10/10/20 17:00 12/02/20 08:46 Metformin Hcl 500 Mg Tablet PO 500 mg BIDWM RAGHAVENDRA Administration Nifedipine 60 mg 11/28/20 09:00 12/02/20 08:46 Nifedipine Er 30 Mg Tab.Er.24 PO 60 mg DAILY RAGHAVENDRA Administration Protocol Pharmacy Consult 1 each 09/20/20 18:27 Consult Rx Perform Med Rec MISCELLANE ONCE PRN Consult order Sodium Chloride 3 ml 09/21/20 00:00 12/02/20 08:47 0.9 % Sodium Chloride Flush 3 Ml Syringe IVFLUSH Not Given QSHIFT [facility] Trazodone HCl 25 mg 09/25/20 19:19 10/08/20 21:02 Trazodone Hcl 25 Mg Halftab PO 25 mg BEDTIME PRN Administration Insomnia Vancomycin HCl 125 mg 12/02/20 09:00 12/02/20 09:36 Vancomycin Hcl 125 Mg Capsule PO 125 mg Q6H RAGHAVENDRA Administration Labs CBC & Chem 7: 11/25/20 05:48 12/02/20 08:33 Microbiology Microbiology Results: Microbiology 11/24/20 08:18 Stool Stool Culture - Final 09/21/20 Unknown Urine clean catch - Clean Catch Midstream Urine Culture - Final No growth. Assessment and Plan (1) Neurocognitive disorder: Status: Acute Assessment and Plan: hospital d#66 85yo F with HTN, HLD, DM2, hypothyroidism, CAD s/p PCI admitted with falls, elevated troponin C diff infection diarrhea improved Continue vancomycin orally D05/01 cognitive impairment Evaluated by psychiatry- does need guardianship Temp. HTN Blood pressure continue to be elevated continue enelapril, hydralazine, hctz, nifedipine improved acute grief reaction grieving over of . counseling support given. Hx CAD seen by Cardiology and recommended medical treatment as stable CAD with ASA + statin; HR too low for B-derrek DM2 with hypoglycemia d/c'ed GPZ; continue correction-dose lispro + MTF hypothyroidism continue LT4 VTE ppx LMWH Dispo Waiting conservatorship to help her with her finances but still trying to identify a possible conservator
[2020-12-02 11:48] LABS: Glucose, Whole Blood 189 mg/dL (60-115)
[2020-12-02 16:34] LABS: Glucose, Whole Blood 151 mg/dL (60-115)
[2020-12-02 20:34] LABS: Glucose, Whole Blood 114 mg/dL (60-115)
[2020-12-02] MEDS: Atorvastatin Calcium 80 MG TABLET PO (21:14)
[2020-12-03] VITALS (8 sets, daily range): BP systolic 147–161; BP diastolic 64–67; PULSE 51–69; RESP 16–18; TEMP 36.3–37; O2SAT 94–98
[2020-12-03] MEDS: vancomycin HCL 125 MG CAPSULE PO ×4 (04:10→21:20)
[2020-12-03] MEDS: Levothyroxine Sodium 75 MCG TABLET PO (06:08)
[2020-12-03 08:25] LABS: Glucose, Whole Blood 115 mg/dL (60-115)
[2020-12-03] MEDS: hydroCHLOROthiazide 25 MG TABLET PO (08:45)
[2020-12-03] MEDS: Aspirin 81 MG TAB.CHEW PO (08:45)
[2020-12-03] MEDS: metFORMIN HCl 500 MG TABLET PO ×2 (08:45→17:14)
[2020-12-03] MEDS: NIFEdipine ER 30 MG TAB.ER.24 60 MG PO (08:45)
[2020-12-03] MEDS: Enalapril Maleate 10 MG TABLET 20 MG PO ×2 (08:45→21:20)
[2020-12-03] MEDS: Enoxaparin Sodium 40 MG/0.4 ML SYRINGE SUBCUT (08:46)
[2020-12-03] MEDS: hydrALAZINE HCl 50 MG TABLET 100 MG PO ×3 (08:46→21:19)
--- NOTE | 2020-12-03 10:11 | P.PNIM_ITS ---
Subjective Subjective Date of Service: 12/03/20 Interval History: wants to go home Cardiovascular Cardiovascular: Reports no additional cardiovascular complaints Gastrointestinal Gastrointestinal: Reports no additional gastrointestinal complaints Physical Exam Vital Signs: Vital Signs: Last Vital Signs Temp 98.6 F 12/03/20 07:35 Pulse 51 12/03/20 08:46 Resp 18 12/03/20 07:35 BP 149/66 H 12/03/20 08:46 Pulse Ox 94 12/03/20 07:35 Body Mass Index 20.2 General: AO X 3, no acute distress Resp: CTA bilateral CVS: S1,S2,RRR GI: soft, non tender, non distended Neuro: motor grossly intact Psych: impaired insight Objective Data Current Medications Generic Name Dose Route Start Last Admin Trade Name Freq PRN Reason Stop Dose Admin Acetaminophen 650 mg 09/28/20 11:39 10/27/20 11:12 Acetaminophen 325 Mg Tablet PO 650 mg Q6H PRN Administration PAINFEV Aspirin 81 mg 09/21/20 09:00 12/03/20 08:45 Aspirin 81 Mg Tab.Chew PO 81 mg DAILY RAGHAVENDRA Administration Atorvastatin Calcium 80 mg 10/04/20 21:00 12/02/20 21:14 Atorvastatin Calcium 80 Mg Tablet PO 80 mg BEDTIME RAGHAVENDRA Administration Enalapril Maleate 20 mg 10/05/20 12:00 12/03/20 08:45 Enalapril Maleate 10 Mg Tablet PO 20 mg BID RAGHAVENDRA Administration Enoxaparin Sodium 40 mg 10/07/20 08:00 12/03/20 08:46 Enoxaparin Sodium 40 Mg/0.4 Ml Syringe SUBCUT 40 mg Q24H RAGHAVENDRA Administration Hydralazine HCl 100 mg 11/05/20 15:00 12/03/20 08:46 Hydralazine Hcl 50 Mg Tablet PO 100 mg TID RAGHAVENDRA Administration Protocol Hydrochlorothiazide 25 mg 11/16/20 09:00 12/03/20 08:45 Hydrochlorothiazide 25 Mg Tablet PO 25 mg DAILY RAGHAVENDRA Administration Protocol Hydroxyzine HCl 25 mg 09/25/20 19:19 10/05/20 21:11 Hydroxyzine Hcl 25 Mg Tablet PO 25 mg Q8H PRN Administration Restlessness Insulin Human Lispro 0 unit 09/21/20 07:30 12/03/20 07:47 Insulin Lispro 100 Unit/Ml 3 Ml Vial SUBCUT Not Given QIDACHS [facility] Protocol Levothyroxine Sodium 75 mcg 09/21/20 06:30 12/03/20 06:08 Levothyroxine Sodium 75 Mcg Tablet PO 75 mcg DAILY@0630 RAGHAVENDRA Administration Loperamide HCl 2 mg 10/11/20 08:21 11/24/20 08:36 Loperamide Hcl 2 Mg Capsule PO 2 mg Q6H PRN Administration Constipation Metformin HCl 500 mg 10/10/20 17:00 12/03/20 08:45 Metformin Hcl 500 Mg Tablet PO 500 mg BIDWM RAGHAVENDRA Administration Nifedipine 60 mg 11/28/20 09:00 12/03/20 08:45 Nifedipine Er 30 Mg Tab.Er.24 PO 60 mg DAILY RAGHAVENDRA Administration Protocol Pharmacy Consult 1 each 09/20/20 18:27 Consult Rx Perform Med Rec MISCELLANE ONCE PRN Consult order Sodium Chloride 3 ml 09/21/20 00:00 12/03/20 08:46 0.9 % Sodium Chloride Flush 3 Ml Syringe IVFLUSH Not Given QSHIFT [facility] Trazodone HCl 25 mg 09/25/20 19:19 10/08/20 21:02 Trazodone Hcl 25 Mg Halftab PO 25 mg BEDTIME PRN Administration Insomnia Vancomycin HCl 125 mg 12/02/20 09:00 12/03/20 08:45 Vancomycin Hcl 125 Mg Capsule PO 125 mg Q6H RAGHAVENDRA Administration Labs CBC & Chem 7: 11/25/20 05:48 12/02/20 08:33 Microbiology Microbiology Results: Microbiology 11/24/20 08:18 Stool Stool Culture - Final 09/21/20 Unknown Urine clean catch - Clean Catch Midstream Urine Culture - Final No growth. Assessment and Plan (1) Neurocognitive disorder: Status: Acute Assessment and Plan: hospital d#[id number] 85yo F with HTN, HLD, DM2, hypothyroidism, CAD s/p PCI admitted with falls, elevated troponin C diff infection diarrhea improved Continue vancomycin orally D1014 cognitive impairment Evaluated by psychiatry- does need guardianship Temp. HTN Blood pressure continue to be elevated continue enelapril, hydralazine, hctz, nifedipine improved acute grief reaction grieving over of . counseling support given. Hx CAD seen by Cardiology and recommended medical treatment as stable CAD with ASA + statin; HR too low for B-derrek DM2 with hypoglycemia d/c'ed GPZ; continue correction-dose lispro + MTF hypothyroidism continue LT4 VTE ppx LMWH Dispo Waiting conservatorship to help her with her finances but still trying to identify a possible conservator
[2020-12-03 11:34] LABS: Glucose, Whole Blood 251 mg/dL (60-115)
[2020-12-03] MEDS: Insulin Lispro 100 UNIT/ML 3 ML VIAL SUBCUT (11:50)
[2020-12-03 16:29] LABS: Glucose, Whole Blood 90 mg/dL (60-115)
[2020-12-03 20:40] LABS: Glucose, Whole Blood 111 mg/dL (60-115)
[2020-12-03] MEDS: Atorvastatin Calcium 80 MG TABLET PO (21:20)
[2020-12-04] VITALS (8 sets, daily range): BP systolic 132–150; BP diastolic 39–70; PULSE 55–74; RESP 18–20; TEMP 36.4–36.8; O2SAT 97
[2020-12-04] MEDS: vancomycin HCL 125 MG CAPSULE PO ×4 (03:14→20:33)
[2020-12-04] MEDS: Levothyroxine Sodium 75 MCG TABLET PO (05:57)
[2020-12-04 07:57] LABS: Glucose, Whole Blood 174 mg/dL (60-115)
[2020-12-04] MEDS: Insulin Lispro 100 UNIT/ML 3 ML VIAL SUBCUT ×2 (08:42→16:45)
[2020-12-04] MEDS: metFORMIN HCl 500 MG TABLET PO ×2 (08:43→16:45)
[2020-12-04] MEDS: Enoxaparin Sodium 40 MG/0.4 ML SYRINGE SUBCUT (08:43)
[2020-12-04] MEDS: hydrALAZINE HCl 50 MG TABLET 100 MG PO ×3 (08:43→20:33)
[2020-12-04] MEDS: Aspirin 81 MG TAB.CHEW PO (08:44)
[2020-12-04] MEDS: NIFEdipine ER 30 MG TAB.ER.24 60 MG PO (08:44)
[2020-12-04] MEDS: Enalapril Maleate 10 MG TABLET 20 MG PO ×2 (08:44→20:33)
[2020-12-04] MEDS: hydroCHLOROthiazide 25 MG TABLET PO (08:44)
--- NOTE | 2020-12-04 09:50 | P.PNIM_ITS ---
Subjective Subjective Date of Service: 12/04/20 Interval History: no new complaints Cardiovascular Cardiovascular: Reports no additional cardiovascular complaints Respiratory Respiratory: Reports no additional respiratory complaints Physical Exam Vital Signs: Vital Signs: Last Vital Signs Temp 97.8 F 12/04/20 07:24 Pulse 55 12/04/20 08:44 Resp 18 12/04/20 07:24 BP 132/61 12/04/20 08:44 Pulse Ox 97 12/04/20 07:24 Body Mass Index 20.2 General: AO X 3, no acute distress Resp: CTA bilateral CVS: S1,S2,RRR GI: soft, non tender, non distended Neuro: motor grossly intact Psych: impaired insight Objective Data Current Medications Generic Name Dose Route Start Last Admin Trade Name Freq PRN Reason Stop Dose Admin Acetaminophen 650 mg 09/28/20 11:39 10/27/20 11:12 Acetaminophen 325 Mg Tablet PO 650 mg Q6H PRN Administration PAINFEV Aspirin 81 mg 09/21/20 09:00 12/04/20 08:44 Aspirin 81 Mg Tab.Chew PO 81 mg DAILY RAGHAVENDRA Administration Atorvastatin Calcium 80 mg 10/04/20 21:00 12/03/20 21:20 Atorvastatin Calcium 80 Mg Tablet PO 80 mg BEDTIME RAGHAVENDRA Administration Enalapril Maleate 20 mg 10/05/20 12:00 12/04/20 08:44 Enalapril Maleate 10 Mg Tablet PO 20 mg BID RAGHAVENDRA Administration Enoxaparin Sodium 40 mg 10/07/20 08:00 12/04/20 08:43 Enoxaparin Sodium 40 Mg/0.4 Ml Syringe SUBCUT 40 mg Q24H RAGHAVENDRA Administration Hydralazine HCl 100 mg 11/05/20 15:00 12/04/20 08:43 Hydralazine Hcl 50 Mg Tablet PO 100 mg TID RAGHAVENDRA Administration Protocol Hydrochlorothiazide 25 mg 11/16/20 09:00 12/04/20 08:44 Hydrochlorothiazide 25 Mg Tablet PO 25 mg DAILY RAGHAVENDRA Administration Protocol Hydroxyzine HCl 25 mg 09/25/20 19:19 10/05/20 21:11 Hydroxyzine Hcl 25 Mg Tablet PO 25 mg Q8H PRN Administration Restlessness Insulin Human Lispro 0 unit 09/21/20 07:30 12/04/20 08:42 Insulin Lispro 100 Unit/Ml 3 Ml Vial SUBCUT 2 unit QIDACHS [facility] Administration Protocol Levothyroxine Sodium 75 mcg 09/21/20 06:30 12/04/20 05:57 Levothyroxine Sodium 75 Mcg Tablet PO 75 mcg DAILY@0630 RAGHAVENDRA Administration Loperamide HCl 2 mg 10/11/20 08:21 11/24/20 08:36 Loperamide Hcl 2 Mg Capsule PO 2 mg Q6H PRN Administration Constipation Metformin HCl 500 mg 10/10/20 17:00 12/04/20 08:43 Metformin Hcl 500 Mg Tablet PO 500 mg BIDWM RAGHAVENDRA Administration Nifedipine 60 mg 11/28/20 09:00 12/04/20 08:44 Nifedipine Er 30 Mg Tab.Er.24 PO 60 mg DAILY RAGHAVENDRA Administration Protocol Pharmacy Consult 1 each 09/20/20 18:27 Consult Rx Perform Med Rec MISCELLANE ONCE PRN Consult order Sodium Chloride 3 ml 09/21/20 00:00 12/04/20 08:40 0.9 % Sodium Chloride Flush 3 Ml Syringe IVFLUSH Not Given QSHIFT [facility] Trazodone HCl 25 mg 09/25/20 19:19 10/08/20 21:02 Trazodone Hcl 25 Mg Halftab PO 25 mg BEDTIME PRN Administration Insomnia Vancomycin HCl 125 mg 12/02/20 09:00 12/04/20 08:43 Vancomycin Hcl 125 Mg Capsule PO 125 mg Q6H RAGHAVENDRA Administration Labs CBC & Chem 7: 11/25/20 05:48 12/02/20 08:33 Microbiology Microbiology Results: Microbiology 11/24/20 08:18 Stool Stool Culture - Final 09/21/20 Unknown Urine clean catch - Clean Catch Midstream Urine Culture - Final No growth. Assessment and Plan (1) Neurocognitive disorder: Status: Acute Assessment and Plan: 85yo F with HTN, HLD, DM2, hypothyroidism, CAD s/p PCI admitted with falls, elevated troponin C diff infection diarrhea improved Continue vancomycin orally D108/31 cognitive impairment Evaluated by psychiatry- does need guardianship Temp. HTN Blood pressure continue to be elevated continue enelapril, hydralazine, hctz, nifedipine improved acute grief reaction grieving over of . counseling support given. Hx CAD seen by Cardiology and recommended medical treatment as stable CAD with ASA + statin; HR too low for B-derrek DM2 with hypoglycemia d/c'ed GPZ; continue correction-dose lispro + MTF hypothyroidism continue LT4 VTE ppx LMWH Dispo Waiting conservatorship to help her with her finances but still trying to identify a possible conservator
[2020-12-04 11:57] LABS: Glucose, Whole Blood 108 mg/dL (60-115)
--- NOTE | 2020-12-04 15:34 | MHC.CM.PN ---
PT REMAINS INPT AWAITING GUARDIANSHIP/CONSERVATOR HEARING, CM MET W/PT WHO CONT'S TO REPORT SHE WANTS TO GO HOME, IS BEING HELD AGAINST HER WILL AND ALSO REPORTS HER HOUSE IS FINE AND STATES, IT'S JUST CLUTTERED, I'M NOT A SLOB PT REPORTS SOMEONE CAME INTO HER ROOM AT 9:45AM AND TOLD HER HER WAS BURIED WHICH WAS VERY UPSETTING TO PT DO HER THINKING HE WOULD REMAIN IN [facility] AT [facility] UNTIL SHE GETS OUT OF HOSPITAL, PT THEN REPORTS THE GIRL WHO TOLD HER COULD NOT CONFIRM THAT WAS TRUE, PT ALSO UNABLE TO RECALL SHE HAD A [employer]EN[employer] COMBER, PT DENIES HAVING A [employer]EN[employer] COMBER OR FIRING ONE, PT GIVEN NAME AND SHE WROTE IT DOWN AND REPORTS SHE DOES NOT KNOW WHO HE WAS. PT TOOK A WALK ON UNIT AND APPEARED TO CALM DOWN, CM WILL CONT TO MONITOR PT FOR D/C NEEDS.
[2020-12-04 16:34] LABS: Glucose, Whole Blood 279 mg/dL (60-115)
[2020-12-04 20:12] LABS: Glucose, Whole Blood 98 mg/dL (60-115)
[2020-12-04] MEDS: Atorvastatin Calcium 80 MG TABLET PO (20:33)
[2020-12-05] VITALS (7 sets, daily range): BP systolic 131–146; BP diastolic 53–76; PULSE 60–68; RESP 15–19; TEMP 36.2–37.6; O2SAT 96–97
[2020-12-05] MEDS: vancomycin HCL 125 MG CAPSULE PO ×4 (03:41→21:01)
[2020-12-05] MEDS: Levothyroxine Sodium 75 MCG TABLET PO (06:03)
[2020-12-05 07:28] LABS: Glucose, Whole Blood 135 mg/dL (60-115)
[2020-12-05] MEDS: Enoxaparin Sodium 40 MG/0.4 ML SYRINGE SUBCUT (09:33)
[2020-12-05] MEDS: hydrALAZINE HCl 50 MG TABLET 100 MG PO ×3 (09:33→21:01)
[2020-12-05] MEDS: Aspirin 81 MG TAB.CHEW PO (09:34)
[2020-12-05] MEDS: Enalapril Maleate 10 MG TABLET 20 MG PO ×2 (09:34→21:01)
[2020-12-05] MEDS: NIFEdipine ER 30 MG TAB.ER.24 60 MG PO (09:34)
[2020-12-05] MEDS: hydroCHLOROthiazide 25 MG TABLET PO (09:34)
[2020-12-05] MEDS: hydrOXYzine HCL 25 MG TABLET PO (09:34)
[2020-12-05] MEDS: metFORMIN HCl 500 MG TABLET PO ×2 (09:34→17:55)
[2020-12-05 11:23] LABS: Glucose, Whole Blood 222 mg/dL (60-115)
[2020-12-05] MEDS: Insulin Lispro 100 UNIT/ML 3 ML VIAL SUBCUT ×2 (11:32→21:01)
--- NOTE | 2020-12-05 11:34 | HO.PM.IMPN ---
Subjective Subjective Date of Service: 12/05/20 Interval History: no complaints Cardiovascular Cardiovascular: Reports no additional cardiovascular complaints Respiratory Respiratory: Reports no additional respiratory complaints Physical Exam Vital Signs: Vital Signs: Last Vital Signs Temp 99.6 F 12/05/20 07:27 Pulse 60 12/05/20 09:34 Resp 16 12/05/20 07:27 BP 145/74 H 12/05/20 09:34 Pulse Ox 96 12/05/20 07:27 Body Mass Index 20.2 General: AO X 3, no acute distress Resp: CTA bilateral CVS: S1,S2,RRR GI: soft, non tender, non distended Neuro: motor grossly intact Psych: impaired insight Objective Data Current Medications Generic Name Dose Route Start Last Admin Trade Name Freq PRN Reason Stop Dose Admin Acetaminophen 650 mg 09/28/20 11:39 10/27/20 11:12 Acetaminophen 325 Mg Tablet PO 650 mg Q6H PRN Administration PAINFEV Aspirin 81 mg 09/21/20 09:00 12/05/20 09:34 Aspirin 81 Mg Tab.Chew PO 81 mg DAILY RAGHAVENDRA Administration Atorvastatin Calcium 80 mg 10/04/20 21:00 12/04/20 20:33 Atorvastatin Calcium 80 Mg Tablet PO 80 mg BEDTIME RAGHAVENDRA Administration Enalapril Maleate 20 mg 10/05/20 12:00 12/05/20 09:34 Enalapril Maleate 10 Mg Tablet PO 20 mg BID RAGHAVENDRA Administration Enoxaparin Sodium 40 mg 10/07/20 08:00 12/05/20 09:33 Enoxaparin Sodium 40 Mg/0.4 Ml Syringe SUBCUT 40 mg Q24H RAGHAVENDRA Administration Hydralazine HCl 100 mg 11/05/20 15:00 12/05/20 09:33 Hydralazine Hcl 50 Mg Tablet PO 100 mg TID RAGHAVENDRA Administration Protocol Hydrochlorothiazide 25 mg 11/16/20 09:00 12/05/20 09:34 Hydrochlorothiazide 25 Mg Tablet PO 25 mg DAILY RAGHAVENDRA Administration Protocol Hydroxyzine HCl 25 mg 09/25/20 19:19 12/05/20 09:34 Hydroxyzine Hcl 25 Mg Tablet PO 25 mg Q8H PRN Administration Restlessness Insulin Human Lispro 0 unit 09/21/20 07:30 12/05/20 11:32 Insulin Lispro 100 Unit/Ml 3 Ml Vial SUBCUT 4 unit QIDACHS [facility] Administration Protocol Levothyroxine Sodium 75 mcg 09/21/20 06:30 12/05/20 06:03 Levothyroxine Sodium 75 Mcg Tablet PO 75 mcg DAILY@0630 RAGHAVENDRA Administration Loperamide HCl 2 mg 10/11/20 08:21 11/24/20 08:36 Loperamide Hcl 2 Mg Capsule PO 2 mg Q6H PRN Administration Constipation Metformin HCl 500 mg 10/10/20 17:00 12/05/20 09:34 Metformin Hcl 500 Mg Tablet PO 500 mg BIDWM RAGHAVENDRA Administration Nifedipine 60 mg 11/28/20 09:00 12/05/20 09:34 Nifedipine Er 30 Mg Tab.Er.24 PO 60 mg DAILY RAGHAVENDRA Administration Protocol Pharmacy Consult 1 each 09/20/20 18:27 Consult Rx Perform Med Rec MISCELLANE ONCE PRN Consult order Sodium Chloride 3 ml 09/21/20 00:00 12/05/20 09:35 0.9 % Sodium Chloride Flush 3 Ml Syringe IVFLUSH Not Given QSHIFT [facility] Trazodone HCl 25 mg 09/25/20 19:19 10/08/20 21:02 Trazodone Hcl 25 Mg Halftab PO 25 mg BEDTIME PRN Administration Insomnia Vancomycin HCl 125 mg 12/02/20 09:00 12/05/20 09:34 Vancomycin Hcl 125 Mg Capsule PO 125 mg Q6H RAGHAVENDRA Administration Labs CBC & Chem 7: 11/25/20 05:48 12/02/20 08:33 Microbiology Microbiology Results: Microbiology 11/24/20 08:18 Stool Stool Culture - Final 09/21/20 Unknown Urine clean catch - Clean Catch Midstream Urine Culture - Final No growth. Assessment and Plan (1) Neurocognitive disorder: Status: Acute Assessment and Plan: 85yo F with HTN, HLD, DM2, hypothyroidism, CAD s/p PCI admitted with falls, elevated troponin C diff infection diarrhea improved Continue vancomycin orally D1214 cognitive impairment Evaluated by psychiatry- does need guardianship Temp. HTN Blood pressure continue to be elevated continue enelapril, hydralazine, hctz, nifedipine improved acute grief reaction grieving over of . counseling support given. Hx CAD seen by Cardiology and recommended medical treatment as stable CAD with ASA + statin; HR too low for B-derrek DM2 with hypoglycemia d/c'ed GPZ; continue correction-dose lispro + MTF hypothyroidism continue LT4 VTE ppx LMWH Dispo Waiting conservatorship to help her with her finances but still trying to identify a possible conservator
--- NOTE | 2020-12-05 11:59 | MHC.CM.PN ---
This senior mortgage underwriter received call from [employer], a guardian/conservator has been secured for the patient by Marta Wren. Court date is for 12/14 @ 10AM. A new medical certificated is need by Friday 12/08, this senior mortgage underwriter placed secure message to Dr. Villalpando requesting the appropriate documentation. CM will continue to monitor patient for discharge planning needs.
[2020-12-05 16:23] LABS: Glucose, Whole Blood 86 mg/dL (60-115)
[2020-12-05 20:33] LABS: Glucose, Whole Blood 161 mg/dL (60-115)
[2020-12-05] MEDS: Atorvastatin Calcium 80 MG TABLET PO (21:01)
[2020-12-06] MEDS: vancomycin HCL 125 MG CAPSULE PO ×4 (03:35→20:37)
[2020-12-06] MEDS: Levothyroxine Sodium 75 MCG TABLET PO (05:47)
[2020-12-06 07:43] VITALS: BP 136/60; PULSE 62; RESP 18; TEMP 36; O2SAT 96
[2020-12-06 08:07] LABS: Glucose, Whole Blood 110 mg/dL (60-115)
--- NOTE | 2020-12-06 08:23 | MHC.CM.PN ---
Addendum entered by Yazmin Gonsalves RN 12/06/20 12:56: CM RECEIVED MESSAGE FROM ROBERT Ye AT START OF MULTIDISCIPLINARY ROUNDS, CM CONTACTED HER AFTER ROUNDS WERE OVER APPROX 11:20AM, ROBERT Ye IS AWARE SHE WILL NEED ACCESS TO [facility] TO SET UP MTG OR SHE CAN COME IN TO SEE PT OTHERS FROM [facility] HAVE DONE. Original Note: CM RECEIVED MESSAGE FROM ROBERT Ye FROM [facility] ([phone]) REGARDING VIDEO CHAT W/PT. CM LEFT MESSAGE W/ROBERT AT 8:20AM W/BAUTISTA CONTACT NAME AND NUMBER.
[2020-12-06] MEDS: Aspirin 81 MG TAB.CHEW PO (08:43)
[2020-12-06] MEDS: NIFEdipine ER 30 MG TAB.ER.24 60 MG PO (08:43)
[2020-12-06] MEDS: Enalapril Maleate 10 MG TABLET 20 MG PO ×2 (08:43→20:37)
[2020-12-06] MEDS: hydrALAZINE HCl 50 MG TABLET 100 MG PO ×3 (08:43→20:37)
[2020-12-06] MEDS: metFORMIN HCl 500 MG TABLET PO (08:43)
[2020-12-06] MEDS: hydroCHLOROthiazide 25 MG TABLET PO (08:43)
[2020-12-06] MEDS: Enoxaparin Sodium 40 MG/0.4 ML SYRINGE SUBCUT (08:44)
[2020-12-06 11:32] LABS: Glucose, Whole Blood 243 mg/dL (60-115)
[2020-12-06] MEDS: Insulin Lispro 100 UNIT/ML 3 ML VIAL SUBCUT ×2 (11:49→20:38)
--- NOTE | 2020-12-06 12:55 | P.PNIM_ITS ---
Subjective Subjective Date of Service: 12/06/20 Interval History: The patient was seen and evaluated this morning Sitting in her chair, feels distressed about being in the hospital wants to leave home. reported 2 episodes diarrhea overnight Denies any fever, chills or shortness of breath No reported other overnight events. Systemic review: No fever, chills or weakness No chest pain, palpitation No shortness of breath or coughing No abdominal pain, nausea or vomiting No urinary symptoms Physical Exam Vital Signs: Vital Signs: Last Vital Signs Temp 96.8 F 12/06/20 07:43 Pulse 62 12/06/20 07:43 Resp 18 12/06/20 07:43 BP 136/60 12/06/20 07:43 Pulse Ox 96 12/06/20 07:43 Body Mass Index 20.2 Const: Other: Constitutional : Alert, not in distress Neck : Normal inspection, Supple Cardiovascular : RRR, S1 S2, no lower extremity edema Respiratory : Good bilateral air entry, no crackles, wheezes or rhonchi Gastrointestinal: soft, lax, Normal bowel sounds, Non tender Skin : Warm/Dry, No rash Neurological : Alert , interactive, No focal deficit Objective Data Current Medications Generic Name Dose Route Start Last Admin Trade Name Freq PRN Reason Stop Dose Admin Acetaminophen 650 mg 09/28/20 11:39 10/27/20 11:12 Acetaminophen 325 Mg Tablet PO 650 mg Q6H PRN Administration PAINFEV Aspirin 81 mg 09/21/20 09:00 12/06/20 08:43 Aspirin 81 Mg Tab.Chew PO 81 mg DAILY RAGHAVENDRA Administration Atorvastatin Calcium 80 mg 10/04/20 21:00 12/05/20 21:01 Atorvastatin Calcium 80 Mg Tablet PO 80 mg BEDTIME RAGHAVENDRA Administration Enalapril Maleate 20 mg 10/05/20 12:00 12/06/20 08:43 Enalapril Maleate 10 Mg Tablet PO 20 mg BID RAGHAVENDRA Administration Enoxaparin Sodium 40 mg 10/07/20 08:00 12/06/20 08:44 Enoxaparin Sodium 40 Mg/0.4 Ml Syringe SUBCUT 40 mg Q24H RAGHAVENDRA Administration Hydralazine HCl 100 mg 11/05/20 15:00 12/06/20 08:43 Hydralazine Hcl 50 Mg Tablet PO 100 mg TID RAGHAVENDRA Administration Protocol Hydrochlorothiazide 25 mg 11/16/20 09:00 12/06/20 08:43 Hydrochlorothiazide 25 Mg Tablet PO 25 mg DAILY [facility] Administration Protocol Hydroxyzine HCl 25 mg 09/25/20 19:19 12/05/20 09:34 Hydroxyzine Hcl 25 Mg Tablet PO 25 mg Q8H PRN Administration Restlessness Insulin Human Lispro 0 unit 09/21/20 07:30 12/06/20 11:49 Insulin Lispro 100 Unit/Ml 3 Ml Vial SUBCUT 4 unit QIDACHS [facility] Administration Protocol Levothyroxine Sodium 75 mcg 09/21/20 06:30 12/06/20 05:47 Levothyroxine Sodium 75 Mcg Tablet PO 75 mcg DAILY@0630 RAGHAVENDRA Administration Loperamide HCl 2 mg 10/11/20 08:21 11/24/20 08:36 Loperamide Hcl 2 Mg Capsule PO 2 mg Q6H PRN Administration Constipation Metformin HCl 500 mg 10/10/20 17:00 12/06/20 08:43 Metformin Hcl 500 Mg Tablet PO 500 mg BIDWM RAGHAVENDRA Administration Nifedipine 60 mg 11/28/20 09:00 12/06/20 08:43 Nifedipine Er 30 Mg Tab.Er.24 PO 60 mg DAILY RAGHAVENDRA Administration Protocol Pharmacy Consult 1 each 09/20/20 18:27 Consult Rx Perform Med Rec MISCELLANE ONCE PRN Consult order Sodium Chloride 3 ml 09/21/20 00:00 12/06/20 07:48 0.9 % Sodium Chloride Flush 3 Ml Syringe IVFLUSH Not Given QSHIFT [facility] Trazodone HCl 25 mg 09/25/20 19:19 10/08/20 21:02 Trazodone Hcl 25 Mg Halftab PO 25 mg BEDTIME PRN Administration Insomnia Vancomycin HCl 125 mg 12/02/20 09:00 12/06/20 08:43 Vancomycin Hcl 125 Mg Capsule PO 125 mg Q6H RAGHAVENDRA Administration Labs CBC & Chem 7: 11/25/20 05:48 12/02/20 08:33 Microbiology Microbiology Results: Microbiology 11/24/20 08:18 Stool Stool Culture - Final 09/21/20 Unknown Urine clean catch - Clean Catch Midstream Urine Culture - Final No growth. Assessment and Plan (1) Neurocognitive disorder: Status: Acute Assessment and Plan: 85yo F with HTN, HLD, DM2, hypothyroidism, CAD s/p PCI admitted with falls, elevated troponin C diff infection diarrhea improved Continue vancomycin orally D13/14 cognitive impairment Evaluated by psychiatry- does need guardianship Temp. HTN Better controlled a Blood pressure continue to be elevated continue enelapril, hydralazine, hctz, nifedipine acute grief reaction grieving over of . counseling support given. Hx CAD seen by Cardiology and recommended medical treatment as stable CAD with ASA + statin; HR too low for B-derrek DM2 with hypoglycemia d/c'ed GPZ; continue correction-dose lispro + MTF hypothyroidism continue LT4 VTE ppx LMWH Dispo Waiting conservatorship to help her with her finances but still trying to identify a possible conservator
[2020-12-06 14:28] VITALS: BP 137/58; PULSE 65
[2020-12-06 15:20] VITALS: BP 119/48; PULSE 58; RESP 16; TEMP 36.6; O2SAT 95
[2020-12-06 16:17] LABS: Glucose, Whole Blood 84 mg/dL (60-115)
[2020-12-06 20:21] LABS: Glucose, Whole Blood 241 mg/dL (60-115)
[2020-12-06 20:37] VITALS: BP 119/48; PULSE 58
[2020-12-06] MEDS: Atorvastatin Calcium 80 MG TABLET PO (20:38)
[2020-12-06 23:41] VITALS: BP 118/33; PULSE 67; RESP 19; TEMP 36.4; O2SAT 96
[2020-12-07] MEDS: vancomycin HCL 125 MG CAPSULE PO ×2 (02:53→09:23)
[2020-12-07 05:06] VITALS: BP 119/57; PULSE 85
[2020-12-07] MEDS: Levothyroxine Sodium 75 MCG TABLET PO (05:48)
[2020-12-07 08:00] VITALS: BP 149/66; PULSE 51; RESP 19; TEMP 36.9; O2SAT 95
[2020-12-07 08:07] LABS: Glucose, Whole Blood 91 mg/dL (60-115)
--- NOTE | 2020-12-07 09:11 | MHC.CM.PN ---
CM MET W/PT TO SERVE PT [address] DOCUMENTS AT 8:58AM TODAY 12/07/20. 1) MOTION TO AMEND CONSERVATORSHIP AND 2) MOTION FOR TEMPORARY ORDER APPOINTING SPECIAL CONSERVATOR. DOCUMENTS REVIEWED W/PT INCLUDING NAME AND CONTACT NUMBER FOR SPECIAL CONSERVATOR, PT REPORTS SHE WOULD LIKE TO PARTICIPATE IN HEARING AND WAS ASKING FOR FABRIC DESIGNER, CM REMINDED PT SHE HAD A FABRIC DESIGNER APPOINTED BY COURT WHOM SHE HAD FIRED, PT REPORTED SHE THOUGHT THE HOSPITAL HAD APPOINTED THE FABRIC DESIGNER AND WOULD LIKE TO CALL THEM, CM TO ASSIST PT FINDING ATTY'S NAME AND NUMBER IN HER PAPERWORK. CM DIRECTOR AWARE PT WOULD LIKE TO PARTICIPATE IN HEARING ON 12/14/20 AT 10AM.
[2020-12-07] MEDS: NIFEdipine ER 30 MG TAB.ER.24 60 MG PO (09:23)
[2020-12-07] MEDS: Enoxaparin Sodium 40 MG/0.4 ML SYRINGE SUBCUT (09:23)
[2020-12-07] MEDS: hydroCHLOROthiazide 25 MG TABLET PO (09:23)
[2020-12-07] MEDS: Aspirin 81 MG TAB.CHEW PO (09:23)
[2020-12-07] MEDS: metFORMIN HCl 500 MG TABLET PO ×2 (09:23→16:36)
[2020-12-07] MEDS: Enalapril Maleate 10 MG TABLET 20 MG PO ×2 (09:24→20:50)
[2020-12-07] MEDS: hydrALAZINE HCl 50 MG TABLET 100 MG PO ×3 (09:24→20:50)
--- NOTE | 2020-12-07 09:38 | MHC.CM.PN ---
CM RECEIVED CALL BACK FROM CM DIRECTOR W/ PLAN FOR PT TO ATTEND COURT HEARING 12/14/20 AT 10AM VIA ZOOM W/CM SUPPORT.
[2020-12-07 11:37] LABS: Glucose, Whole Blood 283 mg/dL (60-115)
[2020-12-07] MEDS: Insulin Lispro 100 UNIT/ML 3 ML VIAL SUBCUT ×3 (11:49→20:51)
--- NOTE | 2020-12-07 11:54 | MHC.CM.PN ---
CM approached by pt's nurse who reported pt will not call money room supervisor due due to not wanting to pay him. Per CM director court process will cont regardless if pt has a money room supervisor or not.
[2020-12-07 15:25] VITALS: BP 109/62; PULSE 65; RESP 16; TEMP 36.4; O2SAT 97
[2020-12-07 16:15] LABS: Glucose, Whole Blood 157 mg/dL (60-115)
--- NOTE | 2020-12-07 16:29 | P.PNIM_ITS ---
Subjective Subjective Date of Service: 12/07/20 Interval History: The patient was seen and evaluated this morning Sitting in her chair, feels distressed about being in the hospital No diarrhea overnight Denies any fever, chills or shortness of breath No reported other overnight events. Systemic review: No fever, chills or weakness No chest pain, palpitation No shortness of breath or coughing No abdominal pain, nausea or vomiting No urinary symptoms Physical Exam Vital Signs: Vital Signs: Last Vital Signs Temp 97.6 F 12/07/20 15:25 Pulse 65 12/07/20 15:25 Resp 16 12/07/20 15:25 BP 109/62 12/07/20 15:25 Pulse Ox 97 12/07/20 15:25 Body Mass Index 20.2 Const: Other: Constitutional : Alert, not in distress Neck : Normal inspection, Supple Cardiovascular : RRR, S1 S2, no lower extremity edema Respiratory : Good bilateral air entry, no crackles, wheezes or rhonchi Gastrointestinal: soft, lax, Normal bowel sounds, Non tender Skin : Warm/Dry, No rash Neurological : Alert , interactive, No focal deficit Objective Data Current Medications Generic Name Dose Route Start Last Admin Trade Name Freq PRN Reason Stop Dose Admin Acetaminophen 650 mg 09/28/20 11:39 10/27/20 11:12 Acetaminophen 325 Mg Tablet PO 650 mg Q6H PRN Administration PAINFEV Aspirin 81 mg 09/21/20 09:00 12/07/20 09:23 Aspirin 81 Mg Tab.Chew PO 81 mg DAILY RAGHAVENDRA Administration Atorvastatin Calcium 80 mg 10/04/20 21:00 12/06/20 20:38 Atorvastatin Calcium 80 Mg Tablet PO 80 mg BEDTIME RAGHAVENDRA Administration Enalapril Maleate 20 mg 10/05/20 12:00 12/07/20 09:24 Enalapril Maleate 10 Mg Tablet PO 20 mg BID RAGHAVEDNRA Administration Enoxaparin Sodium 40 mg 10/07/20 08:00 12/07/20 09:23 Enoxaparin Sodium 40 Mg/0.4 Ml Syringe SUBCUT 40 mg Q24H RAGHAVENDRA Administration Hydralazine HCl 100 mg 11/05/20 15:00 12/07/20 09:24 Hydralazine Hcl 50 Mg Tablet PO 100 mg TID RAGHAVENDRA Administration Protocol Hydrochlorothiazide 25 mg 11/16/20 09:00 12/07/20 09:23 Hydrochlorothiazide 25 Mg Tablet PO 25 mg DAILY RAGHAVENDRA Administration Protocol Hydroxyzine HCl 25 mg 09/25/20 19:19 12/05/20 09:34 Hydroxyzine Hcl 25 Mg Tablet PO 25 mg Q8H PRN Administration Restlessness Insulin Human Lispro 0 unit 09/21/20 07:30 12/07/20 11:49 Insulin Lispro 100 Unit/Ml 3 Ml Vial SUBCUT 6 unit QIDACHS [facility] Administration Protocol Levothyroxine Sodium 75 mcg 09/21/20 06:30 12/07/20 05:48 Levothyroxine Sodium 75 Mcg Tablet PO 75 mcg DAILY@0630 RAGHAVENDRA Administration Loperamide HCl 2 mg 10/11/20 08:21 11/24/20 08:36 Loperamide Hcl 2 Mg Capsule PO 2 mg Q6H PRN Administration Constipation Metformin HCl 500 mg 10/10/20 17:00 12/07/20 09:23 Metformin Hcl 500 Mg Tablet PO 500 mg BIDWM RAGHAVENDRA Administration Nifedipine 60 mg 11/28/20 09:00 12/07/20 09:23 Nifedipine Er 30 Mg Tab.Er.24 PO 60 mg DAILY RAGHAVENDRA Administration Protocol Pharmacy Consult 1 each 09/20/20 18:27 Consult Rx Perform Med Rec MISCELLANE ONCE PRN Consult order Sodium Chloride 3 ml 09/21/20 00:00 12/07/20 08:13 0.9 % Sodium Chloride Flush 3 Ml Syringe IVFLUSH Not Given QSHIFT [facility] Trazodone HCl 25 mg 09/25/20 19:19 10/08/20 21:02 Trazodone Hcl 25 Mg Halftab PO 25 mg BEDTIME PRN Administration Insomnia Vancomycin HCl 125 mg 12/02/20 09:00 12/07/20 09:23 Vancomycin Hcl 125 Mg Capsule PO 125 mg Q6H RAGHAVENDRA Administration Labs CBC & Chem 7: 11/25/20 05:48 12/02/20 08:33 Microbiology Microbiology Results: Microbiology 11/24/20 08:18 Stool Stool Culture - Final 09/21/20 Unknown Urine clean catch - Clean Catch Midstream Urine Culture - Final No growth. Assessment and Plan (1) Neurocognitive disorder: Status: Acute Assessment and Plan: 85yo F with HTN, HLD, DM2, hypothyroidism, CAD s/p PCI admitted with falls, elevated troponin C diff infection diarrhea improved Continue vancomycin orally D14/14, to dc cognitive impairment Evaluated by psychiatry- does need guardianship Temp. HTN Better controlled a Blood pressure continue to be elevated continue enelapril, hydralazine, hctz, nifedipine acute grief reaction grieving over of . counseling support given. Hx CAD seen by Cardiology and recommended medical treatment as stable CAD with ASA + statin; HR too low for B-derrek DM2 with hypoglycemia d/c'ed GPZ; continue correction-dose lispro + MTF hypothyroidism continue LT4 VTE ppx LMWH Dispo Waiting conservatorship to help her with her finances but still trying to identify a possible conservator
[2020-12-07 20:30] LABS: Glucose, Whole Blood 175 mg/dL (60-115)
[2020-12-07 20:50] VITALS: BP 109/62; PULSE 65
[2020-12-07] MEDS: Atorvastatin Calcium 80 MG TABLET PO (20:50)
[2020-12-07 23:24] VITALS: BP 137/47; PULSE 66; RESP 20; TEMP 36.3; O2SAT 97
[2020-12-08] MEDS: Levothyroxine Sodium 75 MCG TABLET PO (06:04)
[2020-12-08 08:00] VITALS: BP 141/63; PULSE 58; RESP 18; TEMP 36.7; O2SAT 96
[2020-12-08 08:27] LABS: Glucose, Whole Blood 127 mg/dL (60-115)
[2020-12-08] MEDS: Enoxaparin Sodium 40 MG/0.4 ML SYRINGE SUBCUT (09:09)
[2020-12-08] MEDS: Aspirin 81 MG TAB.CHEW PO (09:10)
[2020-12-08] MEDS: hydrALAZINE HCl 50 MG TABLET 100 MG PO ×3 (09:10→20:50)
[2020-12-08] MEDS: Enalapril Maleate 10 MG TABLET 20 MG PO ×2 (09:10→20:51)
[2020-12-08] MEDS: metFORMIN HCl 500 MG TABLET PO ×2 (09:10→16:17)
[2020-12-08] MEDS: hydroCHLOROthiazide 25 MG TABLET PO (09:11)
[2020-12-08] MEDS: NIFEdipine ER 30 MG TAB.ER.24 60 MG PO (09:12)
--- NOTE | 2020-12-08 09:18 | MHC.CM.PN ---
NURSE FLY FINISHER NOTE ELECTRONIC MEDICAL RECORD REVIEWED, PER DOCUMENTATION, NEURO-COGNITIVE DISORDER EVALUATED BY PSYCHIATRY AND RECOMENDED GUardianship A GUARDIAN AND CONSERVATOR (TO ASSIST WITH HER FINANCES) HAS BEEN SECURED BY CHANTE DA SILVA .AND A COURT DATE FOR 12/14/2020 AT 10 AM.SPOKE WITH CM DIRECTOR DR LIMA WILL HAVE COMPLETED MEDICAL CERTIFICATE BY FRIDAY AND COURT DATE FOR 12/14 TEACHERS AIDE TO CONTINUE TO FOLLOW
[2020-12-08 12:05] LABS: Glucose, Whole Blood 155 mg/dL (60-115)
[2020-12-08] MEDS: Insulin Lispro 100 UNIT/ML 3 ML VIAL SUBCUT ×2 (12:08→20:52)
[2020-12-08 15:21] VITALS: BP 163/77; PULSE 69; RESP 19; TEMP 36.5; O2SAT 98
[2020-12-08 16:39] LABS: Glucose, Whole Blood 132 mg/dL (60-115)
--- NOTE | 2020-12-08 17:41 | HO.PM.IMPN ---
Subjective Subjective Date of Service: 12/08/20 Interval History: The patient was seen and evaluated this morning Sitting in her chair, feels distressed about being in the hospital No diarrhea overnight Denies any fever, chills or shortness of breath No reported other overnight events. Systemic review: No fever, chills or weakness No chest pain, palpitation No shortness of breath or coughing No abdominal pain, nausea or vomiting No urinary symptoms Physical Exam Vital Signs: Vital Signs: Last Vital Signs Temp 97.7 F 12/08/20 15: Pulse 69 12/08/20 15: Resp 19 12/08/20 15: BP 163/77 H 12/08/20 15: Pulse Ox 98 12/08/20 15: Body Mass Index 20.2 Const: Other: Constitutional : Alert, not in distress Neck : Normal inspection, Supple Cardiovascular : No JVP, no lower extremity edema Respiratory : Chest wall moving bilaterally, not in respiratory distress Gastrointestinal: soft, lax, Non tender Skin : Warm/Dry, No rash Neurological : Alert , interactive, No focal deficit Objective Data Current Medications Generic Name Dose Route Start Last Admin Trade Name Freq PRN Reason Stop Dose Admin Acetaminophen 650 mg 09/28/20 11:39 10/27/20 11:12 Acetaminophen 325 Mg Tablet PO 650 mg Q6H PRN Administration PAINFEV Aspirin 81 mg 09/21/20 09:00 12/08/20 09:10 Aspirin 81 Mg Tab.Chew PO 81 mg DAILY RAGHAVENDRA Administration Atorvastatin Calcium 80 mg 10/04/20 21:00 12/07/20 20:50 Atorvastatin Calcium 80 Mg Tablet PO 80 mg BEDTIME RAGHAVENDRA Administration Enalapril Maleate 20 mg 10/05/20 12:00 12/08/20 09:10 Enalapril Maleate 10 Mg Tablet PO 20 mg BID RAGHAVENDRA Administration Enoxaparin Sodium 40 mg 10/07/20 08:00 12/08/20 09:09 Enoxaparin Sodium 40 Mg/0.4 Ml Syringe SUBCUT 40 mg Q24H RAGHAVENDRA Administration Hydralazine HCl 100 mg 11/05/20 15:00 12/08/20 16:18 Hydralazine Hcl 50 Mg Tablet PO 100 mg TID RAGHAVENDRA Administration Protocol Hydrochlorothiazide 25 mg 11/16/20 09:00 12/08/20 09:11 Hydrochlorothiazide 25 Mg Tablet PO 25 mg DAILY RAGHAVENDRA Administration Protocol Hydroxyzine HCl 25 mg 09/25/20 19:19 12/05/20 09:34 Hydroxyzine Hcl 25 Mg Tablet PO 25 mg Q8H PRN Administration Restlessness Insulin Human Lispro 0 unit 09/21/20 07:30 12/08/20 16:37 Insulin Lispro 100 Unit/Ml 3 Ml Vial SUBCUT Not Given QIDACHS [facility] Protocol Levothyroxine Sodium 75 mcg 09/21/20 06:30 12/08/20 06:04 Levothyroxine Sodium 75 Mcg Tablet PO 75 mcg DAILY@0630 [facility] Administration Loperamide HCl 2 mg 10/11/20 08:21 11/24/20 08:36 Loperamide Hcl 2 Mg Capsule PO 2 mg Q6H PRN Administration Constipation Metformin HCl 500 mg 10/10/20 17:00 12/08/20 16:17 Metformin Hcl 500 Mg Tablet PO 500 mg BIDWM RAGHAVENDRA Administration Nifedipine 60 mg 11/28/20 09:00 12/08/20 09:12 Nifedipine Er 30 Mg Tab.Er.24 PO 60 mg DAILY [facility] Administration Protocol Pharmacy Consult 1 each 09/20/20 18:27 Consult Rx Perform Med Rec MISCELLANE ONCE PRN Consult order Sodium Chloride 3 ml 09/21/20 00:00 12/08/20 14:41 0.9 % Sodium Chloride Flush 3 Ml Syringe IVFLUSH Not Given QSHIFT [facility] Trazodone HCl 25 mg 09/25/20 19:19 10/08/20 21:02 Trazodone Hcl 25 Mg Halftab PO 25 mg BEDTIME PRN Administration Insomnia Labs CBC & Chem 7: 11/25/20 05:48 12/02/20 08:33 Microbiology Microbiology Results: Microbiology 11/24/20 08:18 Stool Stool Culture - Final 09/21/20 Unknown Urine clean catch - Clean Catch Midstream Urine Culture - Final No growth. Assessment and Plan (1) Neurocognitive disorder: Status: Acute Assessment and Plan: 85yo F with HTN, HLD, DM2, hypothyroidism, CAD s/p PCI admitted with falls, elevated troponin C diff infection diarrhea resolved Continue vancomycin orally D14/14, finished treatment cognitive impairment Evaluated by psychiatry- does need guardianship Temp. HTN Better controlled Blood pressure continue to be elevated continue enelapril, hydralazine, hctz, nifedipine acute grief reaction grieving over of . counseling support given. Hx CAD seen by Cardiology and recommended medical treatment as stable CAD with ASA + statin; HR too low for B-derrek DM2 with hypoglycemia d/c'ed GPZ; continue correction-dose lispro + MTF hypothyroidism continue LT4 VTE ppx LMWH Dispo Waiting conservatorship to help her with her finances but still trying to identify a possible conservator
[2020-12-08 20:29] LABS: Glucose, Whole Blood 232 mg/dL (60-115)
[2020-12-08 20:48] VITALS: BP 161/63; PULSE 80; RESP 16; O2SAT 98
[2020-12-08 20:50] VITALS: BP 161/63; PULSE 80
[2020-12-08 20:51] VITALS: BP 161/63; PULSE 80
[2020-12-08] MEDS: Atorvastatin Calcium 80 MG TABLET PO (20:51)
[2020-12-08 23:33] VITALS: BP 129/52; PULSE 73; RESP 16; TEMP 36.4; O2SAT 96
[2020-12-09] VITALS (9 sets, daily range): BP systolic 137–171; BP diastolic 54–83; PULSE 59–68; RESP 16–18; TEMP 35.9–36.4; O2SAT 97–100
[2020-12-09] MEDS: Levothyroxine Sodium 75 MCG TABLET PO (05:51)
[2020-12-09 06:56] LABS: Creatinine Clr Calc Pharmacy 37.4; Estimated Glomerular Filt Rate 58
[2020-12-09 07:54] LABS: Glucose, Whole Blood 105 mg/dL (60-115)
[2020-12-09] MEDS: Enoxaparin Sodium 40 MG/0.4 ML SYRINGE SUBCUT (09:05)
[2020-12-09] MEDS: Aspirin 81 MG TAB.CHEW PO (09:05)
[2020-12-09] MEDS: NIFEdipine ER 30 MG TAB.ER.24 60 MG PO (09:05)
[2020-12-09] MEDS: metFORMIN HCl 500 MG TABLET PO ×2 (09:06→16:10)
[2020-12-09] MEDS: Enalapril Maleate 10 MG TABLET 20 MG PO ×2 (09:06→21:14)
[2020-12-09] MEDS: hydroCHLOROthiazide 25 MG TABLET PO (09:06)
[2020-12-09] MEDS: hydrALAZINE HCl 50 MG TABLET 100 MG PO ×3 (09:06→21:14)
[2020-12-09] MEDS: Insulin Lispro 100 UNIT/ML 3 ML VIAL SUBCUT ×2 (11:42→21:15)
[2020-12-09 11:46] LABS: Glucose, Whole Blood 200 mg/dL (60-115)
--- NOTE | 2020-12-09 13:21 | HO.PM.IMPN ---
Subjective Subjective Date of Service: 12/09/20 Interval History: The patient was seen and evaluated this morning Sitting in her chair, feels distressed about being in the hospital No diarrhea overnight Denies any fever, chills or shortness of breath No reported other overnight events. Systemic review: No fever, chills or weakness No chest pain, palpitation No shortness of breath or coughing No abdominal pain, nausea or vomiting No urinary symptoms Physical Exam Vital Signs: Vital Signs: Last Vital Signs Temp 96.9 F 12/09/20 08:00 Pulse 59 12/09/20 09:06 Resp 16 12/09/20 08:00 BP 158/83 H 12/09/20 09:06 Pulse Ox 99 12/09/20 08:00 Body Mass Index 20.2 Const: Other: Constitutional : Alert, not in distress Neck : Normal inspection, Supple Cardiovascular : No JVP, no lower extremity edema Respiratory : Chest wall moving bilaterally, not in respiratory distress Gastrointestinal: soft, lax, Non tender Skin : Warm/Dry, No rash Neurological : Alert , interactive, No focal deficit Objective Data Current Medications Generic Name Dose Route Start Last Admin Trade Name Freq PRN Reason Stop Dose Admin Acetaminophen 650 mg 09/28/20 11:39 10/27/20 11:12 Acetaminophen 325 Mg Tablet PO 650 mg Q6H PRN Administration PAINFEV Aspirin 81 mg 09/21/20 09:00 12/09/20 09:05 Aspirin 81 Mg Tab.Chew PO 81 mg DAILY RAGHAVENDRA Administration Atorvastatin Calcium 80 mg 10/04/20 21:00 12/08/20 20:51 Atorvastatin Calcium 80 Mg Tablet PO 80 mg BEDTIME RAGHAVENDRA Administration Enalapril Maleate 20 mg 10/05/20 12:00 12/09/20 09:06 Enalapril Maleate 10 Mg Tablet PO 20 mg BID RAGHAVENDRA Administration Enoxaparin Sodium 40 mg 10/07/20 08:00 12/09/20 09:05 Enoxaparin Sodium 40 Mg/0.4 Ml Syringe SUBCUT 40 mg Q24H RAGHAVENDRA Administration Hydralazine HCl 100 mg 11/05/20 15:00 12/09/20 09:06 Hydralazine Hcl 50 Mg Tablet PO 100 mg TID RAGHAVENDRA Administration Protocol Hydrochlorothiazide 25 mg 11/16/20 09:00 12/09/20 09:06 Hydrochlorothiazide 25 Mg Tablet PO 25 mg DAILY RAGHAVENDRA Administration Protocol Hydroxyzine HCl 25 mg 09/25/20 19:19 12/05/20 09:34 Hydroxyzine Hcl 25 Mg Tablet PO 25 mg Q8H PRN Administration Restlessness Insulin Human Lispro 0 unit 09/21/20 07:30 12/09/20 11:42 Insulin Lispro 100 Unit/Ml 3 Ml Vial SUBCUT 2 unit QIDACHS [facility] Administration Protocol Levothyroxine Sodium 75 mcg 09/21/20 06:30 12/09/20 05:51 Levothyroxine Sodium 75 Mcg Tablet PO 75 mcg DAILY@0630 [facility] Administration Loperamide HCl 2 mg 10/11/20 08:21 11/24/20 08:36 Loperamide Hcl 2 Mg Capsule PO 2 mg Q6H PRN Administration Constipation Metformin HCl 500 mg 10/10/20 17:00 12/09/20 09:06 Metformin Hcl 500 Mg Tablet PO 500 mg BIDWM RAGHAVENDRA Administration Nifedipine 60 mg 11/28/20 09:00 12/09/20 09:05 Nifedipine Er 30 Mg Tab.Er.24 PO 60 mg DAILY [facility] Administration Protocol Pharmacy Consult 1 each 09/20/20 18:27 Consult Rx Perform Med Rec MISCELLANE ONCE PRN Consult order Sodium Chloride 3 ml 09/21/20 00:00 12/09/20 09:06 0.9 % Sodium Chloride Flush 3 Ml Syringe IVFLUSH Not Given QSHIFT [facility] Trazodone HCl 25 mg 09/25/20 19:19 10/08/20 21:02 Trazodone Hcl 25 Mg Halftab PO 25 mg BEDTIME PRN Administration Insomnia Labs CBC & Chem 7: 11/25/20 05:48 12/09/20 06:21 Microbiology Microbiology Results: Microbiology 11/24/20 08:18 Stool Stool Culture - Final 09/21/20 Unknown Urine clean catch - Clean Catch Midstream Urine Culture - Final No growth. Assessment and Plan (1) Neurocognitive disorder: Status: Acute Assessment and Plan: 85yo F with HTN, HLD, DM2, hypothyroidism, CAD s/p PCI admitted with falls, elevated troponin C diff infection diarrhea resolved Continue vancomycin orally D14/14, finished treatment cognitive impairment Evaluated by psychiatry- does need guardianship Temp. HTN Better controlled Blood pressure continue to be elevated continue enelapril, hydralazine, hctz, nifedipine acute grief reaction grieving over of . counseling support given. Hx CAD seen by Cardiology and recommended medical treatment as stable CAD with ASA + statin; HR too low for B-derrek DM2 with hypoglycemia d/c'ed GPZ; continue correction-dose lispro + MTF hypothyroidism continue LT4 VTE ppx LMWH Dispo Waiting conservatorship to help her with her finances but still trying to identify a possible conservator
[2020-12-09 16:36] LABS: Glucose, Whole Blood 113 mg/dL (60-115)
[2020-12-09 20:30] LABS: Glucose, Whole Blood 185 mg/dL (60-115)
[2020-12-09] MEDS: Atorvastatin Calcium 80 MG TABLET PO (21:14)
[2020-12-10] VITALS (8 sets, daily range): BP systolic 139–175; BP diastolic 49–80; PULSE 52–74; RESP 16–22; TEMP 36.2–37; O2SAT 96–98
[2020-12-10] MEDS: Levothyroxine Sodium 75 MCG TABLET PO (06:01)
[2020-12-10 07:34] LABS: Glucose, Whole Blood 106 mg/dL (60-115)
[2020-12-10] MEDS: NIFEdipine ER 30 MG TAB.ER.24 60 MG PO (09:02)
[2020-12-10] MEDS: hydrALAZINE HCl 50 MG TABLET 100 MG PO ×3 (09:05→21:15)
[2020-12-10] MEDS: Enalapril Maleate 10 MG TABLET 20 MG PO ×2 (09:05→21:14)
[2020-12-10] MEDS: Enoxaparin Sodium 40 MG/0.4 ML SYRINGE SUBCUT (09:06)
[2020-12-10] MEDS: metFORMIN HCl 500 MG TABLET PO ×2 (09:06→16:20)
[2020-12-10] MEDS: hydroCHLOROthiazide 25 MG TABLET PO (09:06)
[2020-12-10] MEDS: Aspirin 81 MG TAB.CHEW PO (09:06)
[2020-12-10 12:06] LABS: Glucose, Whole Blood 182 mg/dL (60-115)
[2020-12-10] MEDS: Insulin Lispro 100 UNIT/ML 3 ML VIAL SUBCUT (12:11)
--- NOTE | 2020-12-10 14:06 | HO.PM.IMPN ---
Subjective Subjective Date of Service: 12/10/20 Interval History: The patient was seen and evaluated this morning No diarrhea overnight Denies any fever, chills or shortness of breath No reported other overnight events. Systemic review: No fever, chills or weakness No chest pain, palpitation No shortness of breath or coughing No abdominal pain, nausea or vomiting No urinary symptoms Physical Exam Vital Signs: Vital Signs: Last Vital Signs Temp 98.2 F 12/10/20 08:00 Pulse 64 12/10/20 09:05 Resp 22 H 12/10/20 08:00 BP 175/70 H 12/10/20 09:05 Pulse Ox 96 12/10/20 08:00 Body Mass Index 20.2 Const: Other: Constitutional : Alert, not in distress Cardiovascular : No JVP, no lower extremity edema Respiratory : Chest wall moving bilaterally, not in respiratory distress Gastrointestinal: soft, lax, Non tender Neurological : Alert , interactive, No focal deficit Objective Data Current Medications Generic Name Dose Route Start Last Admin Trade Name Freq PRN Reason Stop Dose Admin Acetaminophen 650 mg 09/28/20 11:39 10/27/20 11:12 Acetaminophen 325 Mg Tablet PO 650 mg Q6H PRN Administration PAINFEV Aspirin 81 mg 09/21/20 09:00 12/10/20 09:06 Aspirin 81 Mg Tab.Chew PO 81 mg DAILY RAGHAVENDRA Administration Atorvastatin Calcium 80 mg 10/04/20 21:00 12/09/20 21:14 Atorvastatin Calcium 80 Mg Tablet PO 80 mg BEDTIME RAGHAVENDRA Administration Enalapril Maleate 20 mg 10/05/20 12:00 12/10/20 09:05 Enalapril Maleate 10 Mg Tablet PO 20 mg BID RAGHAVENDRA Administration Enoxaparin Sodium 40 mg 10/07/20 08:00 12/10/20 09:06 Enoxaparin Sodium 40 Mg/0.4 Ml Syringe SUBCUT 40 mg Q24H RAGHAVENDRA Administration Hydralazine HCl 100 mg 11/05/20 15:00 12/10/20 09:05 Hydralazine Hcl 50 Mg Tablet PO 100 mg TID RAGHAVENDRA Administration Protocol Hydrochlorothiazide 25 mg 11/16/20 09:00 12/10/20 09:06 Hydrochlorothiazide 25 Mg Tablet PO 25 mg DAILY RAGHAVENDRA Administration Protocol Hydroxyzine HCl 25 mg 09/25/20 19:19 12/05/20 09:34 Hydroxyzine Hcl 25 Mg Tablet PO 25 mg Q8H PRN Administration Restlessness Insulin Human Lispro 0 unit 09/21/20 07:30 12/10/20 12:11 Insulin Lispro 100 Unit/Ml 3 Ml Vial SUBCUT 2 unit QIDACHS [facility] Administration Protocol Levothyroxine Sodium 75 mcg 09/21/20 06:30 12/10/20 06:01 Levothyroxine Sodium 75 Mcg Tablet PO 75 mcg DAILY@0630 [facility] Administration Loperamide HCl 2 mg 10/11/20 08:21 11/24/20 08:36 Loperamide Hcl 2 Mg Capsule PO 2 mg Q6H PRN Administration Constipation Metformin HCl 500 mg 10/10/20 17:00 12/10/20 09:06 Metformin Hcl 500 Mg Tablet PO 500 mg BIDWM RAGHAVENDRA Administration Nifedipine 60 mg 11/28/20 09:00 12/10/20 09:02 Nifedipine Er 30 Mg Tab.Er.24 PO 60 mg DAILY [facility] Administration Protocol Pharmacy Consult 1 each 09/20/20 18:27 Consult Rx Perform Med Rec MISCELLANE ONCE PRN Consult order Sodium Chloride 3 ml 09/21/20 00:00 12/10/20 09:01 0.9 % Sodium Chloride Flush 3 Ml Syringe IVFLUSH Not Given QSHIFT [facility] Trazodone HCl 25 mg 09/25/20 19:19 10/08/20 21:02 Trazodone Hcl 25 Mg Halftab PO 25 mg BEDTIME PRN Administration Insomnia Labs CBC & Chem 7: 11/25/20 05:48 12/09/20 06:21 Microbiology Microbiology Results: Microbiology 11/24/20 08:18 Stool Stool Culture - Final 09/21/20 Unknown Urine clean catch - Clean Catch Midstream Urine Culture - Final No growth. Assessment and Plan (1) Neurocognitive disorder: Status: Acute Assessment and Plan: 85yo F with HTN, HLD, DM2, hypothyroidism, CAD s/p PCI admitted with falls, elevated troponin C diff infection diarrhea resolved Continue vancomycin orally D14/14, finished treatment cognitive impairment Evaluated by psychiatry- does need guardianship Temp. HTN Better controlled Blood pressure continue to be elevated continue enelapril, hydralazine, hctz, nifedipine acute grief reaction grieving over of . counseling support given. Hx CAD seen by Cardiology and recommended medical treatment as stable CAD with ASA + statin; HR too low for B-derrek DM2 with hypoglycemia d/c'ed GPZ; continue correction-dose lispro + MTF hypothyroidism continue LT4 VTE ppx LMWH Dispo Waiting conservatorship to help her with her finances but still trying to identify a possible conservator
[2020-12-10 16:28] LABS: Glucose, Whole Blood 148 mg/dL (60-115)
[2020-12-10 20:30] LABS: Glucose, Whole Blood 139 mg/dL (60-115)
[2020-12-10] MEDS: Atorvastatin Calcium 80 MG TABLET PO (21:14)
[2020-12-11] MEDS: Levothyroxine Sodium 75 MCG TABLET PO (05:54)
[2020-12-11 07:46] VITALS: BP 156/66; PULSE 66; RESP 18; TEMP 36.3; O2SAT 97
[2020-12-11 08:12] LABS: Glucose, Whole Blood 100 mg/dL (60-115)
[2020-12-11] MEDS: Enoxaparin Sodium 40 MG/0.4 ML SYRINGE SUBCUT (08:48)
[2020-12-11] MEDS: hydrALAZINE HCl 50 MG TABLET 100 MG PO ×3 (08:48→21:23)
[2020-12-11] MEDS: Aspirin 81 MG TAB.CHEW PO (08:48)
[2020-12-11] MEDS: hydroCHLOROthiazide 25 MG TABLET PO (08:48)
[2020-12-11] MEDS: metFORMIN HCl 500 MG TABLET PO ×2 (08:48→17:13)
[2020-12-11] MEDS: NIFEdipine ER 30 MG TAB.ER.24 60 MG PO (08:49)
[2020-12-11] MEDS: Enalapril Maleate 10 MG TABLET 20 MG PO ×2 (08:49→21:24)
[2020-12-11 12:19] LABS: Glucose, Whole Blood 139 mg/dL (60-115)
[2020-12-11 15:21] VITALS: BP 165/76; PULSE 67; RESP 16; TEMP 36.5; O2SAT 97
--- NOTE | 2020-12-11 15:38 | HO.PM.IMPN ---
Subjective Subjective Date of Service: 12/11/20 Interval History: The patient was seen and evaluated this morning Denies any fever, chills or shortness of breath No reported other overnight events. Systemic review: No fever, chills or weakness No chest pain, palpitation No shortness of breath or coughing No abdominal pain, nausea or vomiting No urinary symptoms Physical Exam Vital Signs: Vital Signs: Last Vital Signs Temp 97.7 F 12/11/20 15: Pulse 67 12/11/20 15: Resp 16 12/11/20 15:21 BP 165/76 H 12/11/20 15:21 Pulse Ox 97 12/11/20 15:21 Body Mass Index 20.2 Const: Other: Constitutional : Alert, not in distress Cardiovascular : No JVP, no lower extremity edema Respiratory : Chest wall moving bilaterally, not in respiratory distress Gastrointestinal: soft, lax, Non tender Neurological : Alert , interactive, No focal deficit Objective Data Current Medications Generic Name Dose Route Start Last Admin Trade Name Freq PRN Reason Stop Dose Admin Acetaminophen 650 mg 09/28/20 11:39 10/27/20 11:12 Acetaminophen 325 Mg Tablet PO 650 mg Q6H PRN Administration PAINFEV Aspirin 81 mg 09/21/20 09:00 12/11/20 08:48 Aspirin 81 Mg Tab.Chew PO 81 mg DAILY RAGHAVENDRA Administration Atorvastatin Calcium 80 mg 10/04/20 21:00 12/10/20 21:14 Atorvastatin Calcium 80 Mg Tablet PO 80 mg BEDTIME RAGHAVENDRA Administration Enalapril Maleate 20 mg 10/05/20 12:00 12/11/20 08:49 Enalapril Maleate 10 Mg Tablet PO 20 mg BID RAGHAVENDRA Administration Enoxaparin Sodium 40 mg 10/07/20 08:00 12/11/20 08:48 Enoxaparin Sodium 40 Mg/0.4 Ml Syringe SUBCUT 40 mg Q24H RAGHAVENDRA Administration Hydralazine HCl 100 mg 11/05/20 15:00 12/11/20 15:23 Hydralazine Hcl 50 Mg Tablet PO 100 mg TID RAGHAVENDRA Administration Protocol Hydrochlorothiazide 25 mg 11/16/20 09:00 12/11/20 08:48 Hydrochlorothiazide 25 Mg Tablet PO 25 mg DAILY RAGHAVENDRA Administration Protocol Hydroxyzine HCl 25 mg 09/25/20 19:19 12/05/20 09:34 Hydroxyzine Hcl 25 Mg Tablet PO 25 mg Q8H PRN Administration Restlessness Insulin Human Lispro 0 unit 09/21/20 07:30 12/11/20 12:05 Insulin Lispro 100 Unit/Ml 3 Ml Vial SUBCUT Not Given QIDACHS [facility] Protocol Levothyroxine Sodium 75 mcg 09/21/20 06:30 12/11/20 05:54 Levothyroxine Sodium 75 Mcg Tablet PO 75 mcg DAILY@0630 [facility] Administration Loperamide HCl 2 mg 10/11/20 08:21 11/24/20 08:36 Loperamide Hcl 2 Mg Capsule PO 2 mg Q6H PRN Administration Constipation Metformin HCl 500 mg 10/10/20 17:00 12/11/20 08:48 Metformin Hcl 500 Mg Tablet PO 500 mg BIDWM [facility] Administration Nifedipine 60 mg 11/28/20 09:00 12/11/20 08:49 Nifedipine Er 30 Mg Tab.Er.24 PO 60 mg DAILY RAGHAVENDRA Administration Protocol Pharmacy Consult 1 each 09/20/20 18:27 Consult Rx Perform Med Rec MISCELLANE ONCE PRN Consult order Sodium Chloride 3 ml 09/21/20 00:00 12/11/20 15:04 0.9 % Sodium Chloride Flush 3 Ml Syringe IVFLUSH Not Given QSHIFT [facility] Trazodone HCl 25 mg 09/25/20 19:19 10/08/20 21:02 Trazodone Hcl 25 Mg Halftab PO 25 mg BEDTIME PRN Administration Insomnia Labs CBC & Chem 7: 11/25/20 05:48 12/09/20 06:21 Microbiology Microbiology Results: Microbiology 11/24/20 08:18 Stool Stool Culture - Final 09/21/20 Unknown Urine clean catch - Clean Catch Midstream Urine Culture - Final No growth. Assessment and Plan (1) Neurocognitive disorder: Status: Acute Assessment and Plan: 85yo F with HTN, HLD, DM2, hypothyroidism, CAD s/p PCI admitted with falls, elevated troponin C diff infection diarrhea resolved Continue vancomycin orally D111/29, finished treatment cognitive impairment Evaluated by psychiatry- does need guardianship Temp. waiting court listening on 12/14 HTN Better controlled Blood pressure continue to be elevated continue enelapril, hydralazine, hctz, nifedipine acute grief reaction grieving over of . counseling support given. Hx CAD seen by Cardiology and recommended medical treatment as stable CAD with ASA + statin; HR too low for B-derrek DM2 with hypoglycemia d/c'ed GPZ; continue correction-dose lispro + MTF hypothyroidism continue LT4 VTE ppx LMWH Dispo Waiting conservatorship to help her with her finances but still trying to identify a possible conservator
[2020-12-11 16:35] LABS: Glucose, Whole Blood 103 mg/dL (60-115)
--- NOTE | 2020-12-11 17:03 | HO.PSYCHPN ---
Subjective Subjective Date of Service: 12/12/20 Reason For Visit: Patient admitted status post fall in a confusional Subjective Notes: Conditional Voluntary Interim History: Mrs. Bradley is a 85 year-old woman who initially was admitted to [facility] post fall, elevated troponins and further cardiac work up. Pt has presented with confusion, memory impairments and significant concern about her ability to function independently. Ms. Bradley was seen by this internal communications writer early on during this admission on 09/25 for capacity assessment, when she was deemed as not having capacity to make medical decisions. Since then, pt's at [facility]. She does not have any other family members and appears significantly impaired to function on her own. She had MRI on 10/04/2020 which showed microangiopathy and overall volume atrophy. Pt is currently medically cleared. This internal communications writer is asked to evaluate patient once again to assess need for guardianship. Mrs. Bradley is pleasant on approach. She does not remember having seen me before. She reports she has been here after a fall and insists that she can return home and live on her own. She minimizes problems with water supply at her house. She is fairly oriented to place, year, month. However, when asked to complete clock draw test, pt is unable to place numbers correctly nor able to place hands. Her language fluency is also impaired in that she is not able to recall more than 4 words that start with f in one minute. Pt insists on her past, mostly her first marriage reporting her first was an alcoholic and their children took his side. She describes mood as fine. Affect is congruent and bright. No signs of responding to internal stimuli. She reports looking forward to return home because she has always been an independent woman. Regarding recent of of 30 years, pt reports she is very saddened about it. She remembers him as a loving and caring . Review of Systems Review of Systems Yes all other systems are reviewed and are negative Mental Status Exam Mental Status Exam Narrative: Appearance: thin, casually groomed, fair hygiene, in NAD Behavior: calm, cooperative, friendly Psychomotor: no agitation or retardation noted Speech: clear, normal rate/rhythm/volume, spontaneous TP: repetition, poverty of thought TC: no signs of psychosis, looking forward to go back home Mood: fine Affect:bright, congruent SI:denies HI:denies AH/VH:none Delusions:none Insight/judgment:impaired x 2 Memory/cog: alert, oriented x 3. MOCA completed on 12/11/2020 score 14/30, most difficulty with visual spatial/executive function (1/5), naming (2/3), serial sevens (0/3, pt unable to subtract 7 out of 90), unable to recall 5 words after 5 minutes (0/5), language fluency 5 words in 1 minutes (0/1), abstraction (1/2). Language repetition, attention and orientation fairly intact. Diagnostics Vital Signs (24Hr): Vital Signs - 24 hr 12/10/20 21:14 12/10/20 21:15 12/10/20 23:28 Temperature 98.6 F Pulse Rate 74 74 69 Respiratory Rate 16 Blood Pressure 139/56 L 139/56 L 154/56 H Pulse Oximetry 98 12/11/20 07:46 12/11/20 15:21 Temperature 97.3 F 97.7 F Pulse Rate 66 67 Respiratory Rate 18 16 Blood Pressure 156/66 H 165/76 H Pulse Oximetry 97 97 Body Mass Index 20.2 Labs Results: 11/25/20 05:48 12/09/20 06:21 Labs: Laboratory Results - last 48 hr 12/09/20 12/10/20 12/10/20 20:22 07:09 11:59 POC Glucose 185 H 106 182 H 12/10/20 12/10/20 12/11/20 16:17 20:21 07:45 POC Glucose 148 H 139 H 100 12/11/20 12/11/20 11:54 16:24 POC Glucose 139 H 103 Imaging Radiology Impressions: ITS Impressions Head CT 09/20/20 15:27 IMPRESSION: No acute intracranial process seen. Hypodensity left precentral gyrus question acute versus chronic infarct. There are no previous exam available for comparison. Age-related moderate cerebral atrophy with chronic small vessel ischemic changes. Bilateral frontal and parietal scalp calcified lesions questions sebaceous cyst versus neurofibromas. Brain MRI 10/04/20 11:15 IMPRESSION: 1. No acute intracranial abnormalities. 2. Moderate underlying microangiopathy. 3. There is a degree of generalized cerebral volume loss with prominence of both the ventricles and sulcal spaces. However, there appears to be mildly disproportionate prominence of the ventricles. This may be due to disproportionate central volume loss; however, correlation with symptoms of potentially superimposed normal pressure hydrocephalus is recommended. Medications Medications Current Medications Generic Name Dose Route Start Last Admin Trade Name Freq PRN Reason Stop Dose Admin Acetaminophen 650 mg 09/28/20 11:39 10/27/20 11:12 Acetaminophen 325 Mg Tablet PO 650 mg Q6H PRN Administration PAINFEV Aspirin 81 mg 09/21/20 09:00 12/11/20 08:48 Aspirin 81 Mg Tab.Chew PO 81 mg DAILY RAGHAVENDRA Administration Atorvastatin Calcium 80 mg 10/04/20 21:00 12/10/20 21:14 Atorvastatin Calcium 80 Mg Tablet PO 80 mg BEDTIME RAGHAVENDRA Administration Enalapril Maleate 20 mg 10/05/20 12:00 12/11/20 08:49 Enalapril Maleate 10 Mg Tablet PO 20 mg BID RAGHAVENDRA Administration Enoxaparin Sodium 40 mg 10/07/20 08:00 12/11/20 08:48 Enoxaparin Sodium 40 Mg/0.4 Ml Syringe SUBCUT 40 mg Q24H RAGHAVENDRA Administration Hydralazine HCl 100 mg 11/05/20 15:00 12/11/20 15:23 Hydralazine Hcl 50 Mg Tablet PO 100 mg TID RAGHAVENDRA Administration Protocol Hydrochlorothiazide 25 mg 11/16/20 09:00 12/11/20 08:48 Hydrochlorothiazide 25 Mg Tablet PO 25 mg DAILY [facility] Administration Protocol Hydroxyzine HCl 25 mg 09/25/20 19:19 12/05/20 09:34 Hydroxyzine Hcl 25 Mg Tablet PO 25 mg Q8H PRN Administration Restlessness Insulin Human Lispro 0 unit 09/21/20 07:30 12/11/20 16:38 Insulin Lispro 100 Unit/Ml 3 Ml Vial SUBCUT Not Given QIDACHS [facility] Protocol Levothyroxine Sodium 75 mcg 09/21/20 06:30 12/11/20 05:54 Levothyroxine Sodium 75 Mcg Tablet PO 75 mcg DAILY@0630 RAGHAVENDRA Administration Loperamide HCl 2 mg 10/11/20 08:21 11/24/20 08:36 Loperamide Hcl 2 Mg Capsule PO 2 mg Q6H PRN Administration Constipation Metformin HCl 500 mg 10/10/20 17:00 12/11/20 08:48 Metformin Hcl 500 Mg Tablet PO 500 mg BIDWM RGAHAVENDRA Administration Nifedipine 60 mg 11/28/20 09:00 12/11/20 08:49 Nifedipine Er 30 Mg Tab.Er.24 PO 60 mg DAILY RAGHAVENDRA Administration Protocol Pharmacy Consult 1 each 09/20/20 18:27 Consult Rx Perform Med Rec MISCELLANE ONCE PRN Consult order Sodium Chloride 3 ml 09/21/20 00:00 12/11/20 15:04 0.9 % Sodium Chloride Flush 3 Ml Syringe IVFLUSH Not Given QSHIFT RAGHAVENDRA Trazodone HCl 25 mg 09/25/20 19:19 10/08/20 21:02 Trazodone Hcl 25 Mg Halftab PO 25 mg BEDTIME PRN Administration Insomnia Allergies Allergies Allergy/AdvReac Type Severity Reaction Status Date / Time Penicillins [PCN] Allergy Mild HIVES Verified 09/26/20 20:26 ciprofloxacin [Cipro] Allergy Unknown Itching Verified 09/26/20 20:26 penicillin V Allergy Unknown Unknown Verified 09/26/20 20:26 Sulfa (Sulfonamide Allergy Unknown Unknown Verified 09/26/20 20:26 Antibiotics) Assessment & Plan Assessment & Plan (1) Dementia, vascular, mixed: Status: Acute Code(s): F01.50 - Vascular dementia without behavioral disturbance Assessment and Plan: Mrs. Bradley is a 85yo F with HTN, HLD, DM2, hypothyroidism, CAD s/p PCI admitted with falls, elevated troponin. Pt has been noted to have significant memory and cognitive impairments. Pt had MRI on 10/04/2020 which showed overall atrophy and microangiopathy. MOCA () completed today that shows most impairments in executive function, language fluency, recall with intact orientation. This pattern of cognitive impairment suggest a vascular type of dementia, which is also supported by MRI findings. Note that patient was not able to subtract 7 from 90, which brings further concerns in terms of her ability to manage own finances. But most concerning is level of impairments of her executive function. Unlike Alzheimer's disease, where individuals impairments begin with impaired orientation making it more evident and obvious the underlying cognitive impairments, in vascular type of dementia, individuals can come across as fairly intact and detection of severe impairments in ability to function independently are not noted until severely impaired. It is my clinician opinion, that Ms. Bradley has a Major Neurocognitive Disorder, most likely of vascular etiology but multifactorial causes can't be ruled out. Neurology had recommended Aricept to slow down progression of cognitive impairments, although not typically used in setting of vascular dementia, Mrs. Bradley may benefit from a trial. Medical certificate was completed to petition for Guardianship. C diff infection diarrhea resolved Continue vancomycin orally D111/29, finished treatment Cognitive impairment waiting court listening on 12/14 HTN Better controlled Blood pressure continue to be elevated continue enelapril, hydralazine, hctz, nifedipine acute grief reaction grieving over of . counseling support given. Hx CAD seen by Cardiology and recommended medical treatment as stable CAD with ASA + statin; HR too low for B-derrek DM2 with hypoglycemia d/c'ed GPZ; continue correction-dose lispro + MTF hypothyroidism continue LT4 VTE ppx LMWH Dispo Waiting conservatorship to help her with her finances but still trying to identify a possible conservator Greater than 50% of the session was spent on counseling and/or coordination of care Reason for contiued inpatient stay Substantial Risk for: inability to function
[2020-12-11 20:29] LABS: Glucose, Whole Blood 132 mg/dL (60-115)
[2020-12-11 21:23] VITALS: BP 165/76; PULSE 67
[2020-12-11] MEDS: Atorvastatin Calcium 80 MG TABLET PO (21:23)
[2020-12-11 21:24] VITALS: BP 165/76; PULSE 67
[2020-12-11] MEDS: Donepezil HCl 5 MG TABLET PO (21:24)
[2020-12-11 23:31] VITALS: BP 122/46; PULSE 65; RESP 19; TEMP 36.3; O2SAT 96
[2020-12-12] MEDS: Levothyroxine Sodium 75 MCG TABLET PO (06:23)
[2020-12-12 07:53] VITALS: BP 140/64; PULSE 61; RESP 18; TEMP 37.1; O2SAT 97
[2020-12-12 08:07] LABS: Glucose, Whole Blood 112 mg/dL (60-115)
[2020-12-12] MEDS: hydrALAZINE HCl 50 MG TABLET 100 MG PO ×3 (09:25→21:27)
[2020-12-12] MEDS: NIFEdipine ER 30 MG TAB.ER.24 60 MG PO (09:25)
[2020-12-12] MEDS: metFORMIN HCl 500 MG TABLET PO ×2 (09:25→16:44)
[2020-12-12] MEDS: Enalapril Maleate 10 MG TABLET 20 MG PO ×2 (09:25→21:27)
[2020-12-12] MEDS: Enoxaparin Sodium 40 MG/0.4 ML SYRINGE SUBCUT (09:25)
[2020-12-12] MEDS: hydroCHLOROthiazide 25 MG TABLET PO (09:25)
[2020-12-12] MEDS: Aspirin 81 MG TAB.CHEW PO (09:25)
[2020-12-12 12:06] LABS: Glucose, Whole Blood 130 mg/dL (60-115)
--- NOTE | 2020-12-12 13:10 | P.PNIM_ITS ---
Subjective Subjective Date of Service: 12/12/20 Interval History: The patient was seen and evaluated this morning Denies any fever, chills or shortness of breath No reported other overnight events. Systemic review: No fever, chills or weakness No chest pain, palpitation No shortness of breath or coughing No abdominal pain, nausea or vomiting No urinary symptoms Physical Exam Vital Signs: Vital Signs: Last Vital Signs Temp 98.7 F 12/12/20 07:53 Pulse 61 12/12/20 07:53 Resp 18 12/12/20 07:53 BP 140/64 H 12/12/20 07:53 Pulse Ox 97 12/12/20 07:53 Body Mass Index 20.2 Const: Other: Constitutional : Alert, not in distress Cardiovascular : No JVP, no lower extremity edema Respiratory : Chest wall moving bilaterally, not in respiratory distress Gastrointestinal: soft, lax, Non tender Neurological : Alert , interactive, No focal deficit Objective Data Current Medications Generic Name Dose Route Start Last Admin Trade Name Freq PRN Reason Stop Dose Admin Acetaminophen 650 mg 09/28/20 11:39 10/27/20 11:12 Acetaminophen 325 Mg Tablet PO 650 mg Q6H PRN Administration PAINFEV Aspirin 81 mg 09/21/20 09:00 12/12/20 09:25 Aspirin 81 Mg Tab.Chew PO 81 mg DAILY RAGHAVENDRA Administration Atorvastatin Calcium 80 mg 10/04/20 21:00 12/11/20 21:23 Atorvastatin Calcium 80 Mg Tablet PO 80 mg BEDTIME RAGHAVENDRA Administration Donepezil HCl 5 mg 12/11/20 21:00 12/11/20 21:24 Donepezil Hcl 5 Mg Tablet PO 5 mg BEDTIME RAGHAVENDRA Administration Enalapril Maleate 20 mg 10/05/20 12:00 12/12/20 09:25 Enalapril Maleate 10 Mg Tablet PO 20 mg BID RAGHAVENDRA Administration Enoxaparin Sodium 40 mg 10/07/20 08:00 12/12/20 09:25 Enoxaparin Sodium 40 Mg/0.4 Ml Syringe SUBCUT 40 mg Q24H RAGHAVENDRA Administration Hydralazine HCl 100 mg 11/05/20 15:00 12/12/20 09:25 Hydralazine Hcl 50 Mg Tablet PO 100 mg TID RAGHAVENDRA Administration Protocol Hydrochlorothiazide 25 mg 11/16/20 09:00 12/12/20 09:25 Hydrochlorothiazide 25 Mg Tablet PO 25 mg DAILY [facility] Administration Protocol Hydroxyzine HCl 25 mg 09/25/20 19:19 12/05/20 09:34 Hydroxyzine Hcl 25 Mg Tablet PO 25 mg Q8H PRN Administration Restlessness Insulin Human Lispro 0 unit 09/21/20 07:30 12/12/20 11:38 Insulin Lispro 100 Unit/Ml 3 Ml Vial SUBCUT Not Given QIDACHS [facility] Protocol Levothyroxine Sodium 75 mcg 09/21/20 06:30 12/12/20 06:23 Levothyroxine Sodium 75 Mcg Tablet PO 75 mcg DAILY@0630 RAGHAVENDRA Administration Loperamide HCl 2 mg 10/11/20 08:21 11/24/20 08:36 Loperamide Hcl 2 Mg Capsule PO 2 mg Q6H PRN Administration Constipation Metformin HCl 500 mg 10/10/20 17:00 12/12/20 09:25 Metformin Hcl 500 Mg Tablet PO 500 mg BIDWM RAGHAVENDRA Administration Nifedipine 60 mg 11/28/20 09:00 12/12/20 09:25 Nifedipine Er 30 Mg Tab.Er.24 PO 60 mg DAILY RAGHAVENDRA Administration Protocol Pharmacy Consult 1 each 09/20/20 18:27 Consult Rx Perform Med Rec MISCELLANE ONCE PRN Consult order Sodium Chloride 3 ml 09/21/20 00:00 12/12/20 09:12 0.9 % Sodium Chloride Flush 3 Ml Syringe IVFLUSH Not Given QSHIFT [facility] Trazodone HCl 25 mg 09/25/20 19:19 10/08/20 21:02 Trazodone Hcl 25 Mg Halftab PO 25 mg BEDTIME PRN Administration Insomnia Labs CBC & Chem 7: 11/25/20 05:48 12/09/20 06:21 Microbiology Microbiology Results: Microbiology 11/24/20 08:18 Stool Stool Culture - Final 09/21/20 Unknown Urine clean catch - Clean Catch Midstream Urine Culture - Final No growth. Assessment and Plan (1) Neurocognitive disorder: Status: Acute Assessment and Plan: 85yo F with HTN, HLD, DM2, hypothyroidism, CAD s/p PCI admitted with falls, elevated troponin C diff infection diarrhea resolved Continue vancomycin orally D14/14, finished treatment cognitive impairment Evaluated by psychiatry- does need guardianship Temp. waiting court listening on 12/14 HTN Better controlled Blood pressure continue to be elevated continue enelapril, hydralazine, hctz, nifedipine acute grief reaction grieving over of . counseling support given. Hx CAD seen by Cardiology and recommended medical treatment as stable CAD with ASA + statin; HR too low for B-derrek DM2 with hypoglycemia d/c'ed GPZ; continue correction-dose lispro + MTF hypothyroidism continue LT4 VTE ppx LMWH Dispo Waiting conservatorship to help her with her finances but still trying to identify a possible conservator
--- NOTE | 2020-12-12 13:32 | MHC.CM.PN ---
NURSE DRAUGHTSMAN NOTE ELECTRONIC MEDICAL RECORD REVIEWED AND CASE DISCUSSED WITH HOSPITALIST ON MULTIPLE DISCIPLINARY ROUNDS, MEDICAL CERTIFICATE FOR GUARDIANSHIP COMPLETED BY PSYCHIATRY 12/11/[address] GUARDIAN SHIP AND CONSERVATOR SCHEDULED FOR 12/14/20. DRAUGHTSMAN TO CONTINUE TO FOLLOW FOR DISCHARGE NEEDS.
[2020-12-12 15:36] VITALS: BP 153/68; PULSE 72; RESP 19; TEMP 36.4; O2SAT 98
[2020-12-12 16:19] LABS: Glucose, Whole Blood 88 mg/dL (60-115)
[2020-12-12 20:40] LABS: Glucose, Whole Blood 114 mg/dL (60-115)
[2020-12-12] MEDS: Atorvastatin Calcium 80 MG TABLET PO (21:27)
[2020-12-12] MEDS: Donepezil HCl 5 MG TABLET PO (21:28)
[2020-12-12 23:29] VITALS: BP 144/39; PULSE 68; RESP 19; TEMP 36.6; O2SAT 97
[2020-12-13] VITALS (8 sets, daily range): BP systolic 116–147; BP diastolic 44–68; PULSE 56–67; RESP 16–19; TEMP 36.3–36.4; O2SAT 96–99; BMI 20.2
[2020-12-13] MEDS: Loperamide HCl 2 MG CAPSULE PO (03:29)
[2020-12-13] MEDS: Levothyroxine Sodium 75 MCG TABLET PO (05:48)
[2020-12-13 07:29] LABS: Glucose, Whole Blood 117 mg/dL (60-115)
[2020-12-13] MEDS: NIFEdipine ER 30 MG TAB.ER.24 60 MG PO (09:00)
[2020-12-13] MEDS: hydroCHLOROthiazide 25 MG TABLET PO (09:01)
[2020-12-13] MEDS: Enalapril Maleate 10 MG TABLET 20 MG PO ×2 (09:01→21:38)
[2020-12-13] MEDS: hydrALAZINE HCl 50 MG TABLET 100 MG PO ×3 (09:02→21:37)
[2020-12-13] MEDS: metFORMIN HCl 500 MG TABLET PO ×2 (09:03→17:24)
[2020-12-13] MEDS: Enoxaparin Sodium 40 MG/0.4 ML SYRINGE SUBCUT (09:03)
[2020-12-13] MEDS: Aspirin 81 MG TAB.CHEW PO (09:03)
[2020-12-13 11:30] LABS: Glucose, Whole Blood 99 mg/dL (60-115)
--- NOTE | 2020-12-13 11:38 | HO.PM.IMPN ---
Subjective Subjective Date of Service: 12/13/20 Interval History: The patient was seen this morning Denies any fever, chills or shortness of breath No reported other overnight events. Systemic review: No fever, chills or weakness No chest pain, palpitation No shortness of breath or coughing No abdominal pain, nausea or vomiting No urinary symptoms Physical Exam Vital Signs: Vital Signs: Last Vital Signs Temp 97.3 F 12/13/20 07:58 Pulse 57 12/13/20 09:02 Resp 18 12/13/20 07:58 BP 124/54 L 12/13/20 09:02 Pulse Ox 98 12/13/20 07:58 Body Mass Index 20.2 Const: Other: Constitutional : Alert, not in distress Cardiovascular : No JVP, no lower extremity edema Respiratory : Chest wall moving bilaterally, not in respiratory distress Gastrointestinal: soft, lax, Non tender Neurological : Alert , interactive, No focal deficit Objective Data Current Medications Generic Name Dose Route Start Last Admin Trade Name Freq PRN Reason Stop Dose Admin Acetaminophen 650 mg 09/28/20 11:39 10/27/20 11:12 Acetaminophen 325 Mg Tablet PO 650 mg Q6H PRN Administration PAINFEV Aspirin 81 mg 09/21/20 09:00 12/13/20 09:03 Aspirin 81 Mg Tab.Chew PO 81 mg DAILY RAGHAVENDRA Administration Atorvastatin Calcium 80 mg 10/04/20 21:00 12/12/20 21:27 Atorvastatin Calcium 80 Mg Tablet PO 80 mg BEDTIME RAGHAVENDRA Administration Donepezil HCl 5 mg 12/11/20 21:00 12/12/20 21:28 Donepezil Hcl 5 Mg Tablet PO 5 mg BEDTIME RAGHAVENDRA Administration Enalapril Maleate 20 mg 10/05/20 12:00 12/13/20 09:01 Enalapril Maleate 10 Mg Tablet PO 20 mg BID RAGHAVENDRA Administration Enoxaparin Sodium 40 mg 10/07/20 08:00 12/13/20 09:03 Enoxaparin Sodium 40 Mg/0.4 Ml Syringe SUBCUT 40 mg Q24H RAGHAVENDRA Administration Hydralazine HCl 100 mg 11/05/20 15:00 12/13/20 09:02 Hydralazine Hcl 50 Mg Tablet PO 100 mg TID RAGHAVENDRA Administration Protocol Hydrochlorothiazide 25 mg 11/16/20 09:00 12/13/20 09:01 Hydrochlorothiazide 25 Mg Tablet PO 25 mg DAILY [facility] Administration Protocol Hydroxyzine HCl 25 mg 09/25/20 19:19 12/05/20 09:34 Hydroxyzine Hcl 25 Mg Tablet PO 25 mg Q8H PRN Administration Restlessness Insulin Human Lispro 0 unit 09/21/20 07:30 12/13/20 11:34 Insulin Lispro 100 Unit/Ml 3 Ml Vial SUBCUT Not Given QIDACHS [facility] Protocol Levothyroxine Sodium 75 mcg 09/21/20 06:30 12/13/20 05:48 Levothyroxine Sodium 75 Mcg Tablet PO 75 mcg DAILY@0630 RAGHAVENDRA Administration Loperamide HCl 2 mg 10/11/20 08:21 12/13/20 03:29 Loperamide Hcl 2 Mg Capsule PO 2 mg Q6H PRN Administration Constipation Metformin HCl 500 mg 10/10/20 17:00 12/13/20 09:03 Metformin Hcl 500 Mg Tablet PO 500 mg BIDWM RAGHAVENDRA Administration Nifedipine 60 mg 11/28/20 09:00 12/13/20 09:00 Nifedipine Er 30 Mg Tab.Er.24 PO 60 mg DAILY RAGHAVENDRA Administration Protocol Pharmacy Consult 1 each 09/20/20 18:27 Consult Rx Perform Med Rec MISCELLANE ONCE PRN Consult order Sodium Chloride 3 ml 09/21/20 00:00 12/13/20 07:30 0.9 % Sodium Chloride Flush 3 Ml Syringe IVFLUSH Not Given QSHIFT [facility] Trazodone HCl 25 mg 09/25/20 19:19 10/08/20 21:02 Trazodone Hcl 25 Mg Halftab PO 25 mg BEDTIME PRN Administration Insomnia Labs CBC & Chem 7: 11/25/20 05:48 12/09/20 06:21 Microbiology Microbiology Results: Microbiology 11/24/20 08:18 Stool Stool Culture - Final 09/21/20 Unknown Urine clean catch - Clean Catch Midstream Urine Culture - Final No growth. Assessment and Plan (1) Neurocognitive disorder: Status: Acute Assessment and Plan: 85yo F with HTN, HLD, DM2, hypothyroidism, CAD s/p PCI admitted with falls, elevated troponin C diff infection diarrhea resolved Continue vancomycin orally D14/14, finished treatment cognitive impairment Evaluated by psychiatry- does need guardianship Temp. waiting court listening on 12/14 HTN Better controlled Blood pressure continue to be elevated continue enelapril, hydralazine, hctz, nifedipine acute grief reaction grieving over of . counseling support given. Hx CAD seen by Cardiology and recommended medical treatment as stable CAD with ASA + statin HR too low for B-derrek DM2 with hypoglycemia continue correction-dose lispro + MTF hypothyroidism continue LT4 VTE ppx LMWH Dispo Waiting conservatorship to help her with her finances but still trying to identify a possible conservator
[2020-12-13 16:26] LABS: Glucose, Whole Blood 124 mg/dL (60-115)
[2020-12-13 20:26] LABS: Glucose, Whole Blood 134 mg/dL (60-115)
[2020-12-13] MEDS: Donepezil HCl 5 MG TABLET PO (21:38)
[2020-12-13] MEDS: Atorvastatin Calcium 80 MG TABLET PO (21:38)
[2020-12-14] MEDS: Levothyroxine Sodium 75 MCG TABLET PO (06:01)
[2020-12-14 07:42] LABS: Glucose, Whole Blood 88 mg/dL (60-115)
[2020-12-14 07:48] VITALS: BP 139/61; PULSE 55; RESP 18; TEMP 36.6; O2SAT 97
[2020-12-14] MEDS: hydroCHLOROthiazide 25 MG TABLET PO (08:42)
[2020-12-14] MEDS: metFORMIN HCl 500 MG TABLET PO ×2 (08:42→18:22)
[2020-12-14] MEDS: NIFEdipine ER 30 MG TAB.ER.24 60 MG PO (08:42)
[2020-12-14] MEDS: Enalapril Maleate 10 MG TABLET 20 MG PO ×2 (08:42→20:04)
[2020-12-14] MEDS: hydrALAZINE HCl 50 MG TABLET 100 MG PO ×3 (08:42→20:04)
[2020-12-14] MEDS: Aspirin 81 MG TAB.CHEW PO (08:42)
[2020-12-14] MEDS: Enoxaparin Sodium 40 MG/0.4 ML SYRINGE SUBCUT (08:42)
[2020-12-14 11:19] LABS: Glucose, Whole Blood 179 mg/dL (60-115)
[2020-12-14] MEDS: Insulin Lispro 100 UNIT/ML 3 ML VIAL SUBCUT (11:55)
--- NOTE | 2020-12-14 12:11 | HO.PM.IMPN ---
Subjective Subjective Date of Service: 12/14/20 Interval History: Patient feeling good this morning took shower, offers no acute complaints ambulating with no difficulty. ROS General no headache ,no dizziness, no fever, chills. CVS no chest pain, no palpitation. Respiratory no cough, no sob. Gastrointestinal no nausea, no vomiting, no abdominal pain Physical Exam Vital Signs: Vital Signs: Last Vital Signs Temp 97.8 F 12/14/20 07:48 Pulse 55 12/14/20 07:48 Resp 18 12/14/20 07:48 BP 139/61 12/14/20 07:48 Pulse Ox 97 12/14/20 07:48 Body Mass Index 20.2 General no acute distress. Neck no JVD. CVS regular rate rhythm, Respiratory lungs clear to auscultation, no respiratory distress Gastrointestinal abdomen soft, nontender, bowel sounds audible Extremities no edema. Neuro nonfocal , speech clear. Skin no rash Objective Data Current Medications Generic Name Dose Route Start Last Admin Trade Name Freq PRN Reason Stop Dose Admin Acetaminophen 650 mg 09/28/20 11:39 10/27/20 11:12 Acetaminophen 325 Mg Tablet PO 650 mg Q6H PRN Administration PAINFEV Aspirin 81 mg 09/21/20 09:00 12/14/20 08:42 Aspirin 81 Mg Tab.Chew PO 81 mg DAILY RAGHAVENDRA Administration Atorvastatin Calcium 80 mg 10/04/20 21:00 12/13/20 21:38 Atorvastatin Calcium 80 Mg Tablet PO 80 mg BEDTIME RAGHAVENDRA Administration Donepezil HCl 5 mg 12/11/20 21:00 12/13/20 21:38 Donepezil Hcl 5 Mg Tablet PO 5 mg BEDTIME RAGHAVENDRA Administration Enalapril Maleate 20 mg 10/05/20 12:00 12/14/20 08:42 Enalapril Maleate 10 Mg Tablet PO 20 mg BID RAGHAVENDRA Administration Enoxaparin Sodium 40 mg 10/07/20 08:00 12/14/20 08:42 Enoxaparin Sodium 40 Mg/0.4 Ml Syringe SUBCUT 40 mg Q24H RAGHAVENDRA Administration Hydralazine HCl 100 mg 11/05/20 15:00 12/14/20 08:42 Hydralazine Hcl 50 Mg Tablet PO 100 mg TID RAGHAVENDRA Administration Protocol Hydrochlorothiazide 25 mg 11/16/20 09:00 12/14/20 08:42 Hydrochlorothiazide 25 Mg Tablet PO 25 mg DAILY [facility] Administration Protocol Hydroxyzine HCl 25 mg 09/25/20 19:19 12/05/20 09:34 Hydroxyzine Hcl 25 Mg Tablet PO 25 mg Q8H PRN Administration Restlessness Insulin Human Lispro 0 unit 09/21/20 07:30 12/14/20 11:55 Insulin Lispro 100 Unit/Ml 3 Ml Vial SUBCUT 2 unit QIDACHS [facility] Administration Protocol Levothyroxine Sodium 75 mcg 09/21/20 06:30 12/14/20 06:01 Levothyroxine Sodium 75 Mcg Tablet PO 75 mcg DAILY@0630 [facility] Administration Loperamide HCl 2 mg 10/11/20 08:21 12/13/20 03:29 Loperamide Hcl 2 Mg Capsule PO 2 mg Q6H PRN Administration Constipation Metformin HCl 500 mg 10/10/20 17:00 12/14/20 08:42 Metformin Hcl 500 Mg Tablet PO 500 mg BIDWM RAGHAVENDRA Administration Nifedipine 60 mg 11/28/20 09:00 12/14/20 08:42 Nifedipine Er 30 Mg Tab.Er.24 PO 60 mg DAILY RAGHAVENDRA Administration Protocol Pharmacy Consult 1 each 09/20/20 18:27 Consult Rx Perform Med Rec MISCELLANE ONCE PRN Consult order Sodium Chloride 3 ml 09/21/20 00:00 12/14/20 08:43 0.9 % Sodium Chloride Flush 3 Ml Syringe IVFLUSH Not Given QSHIFT [facility] Trazodone HCl 25 mg 09/25/20 19:19 10/08/20 21:02 Trazodone Hcl 25 Mg Halftab PO 25 mg BEDTIME PRN Administration Insomnia Labs CBC & Chem 7: 11/25/20 05:48 12/09/20 06:21 Microbiology Microbiology Results: Microbiology 11/24/20 08:18 Stool Stool Culture - Final 09/21/20 Unknown Urine clean catch - Clean Catch Midstream Urine Culture - Final No growth. Assessment and Plan (1) Clostridioides difficile infection: Status: Acute (2) Neurocognitive disorder: Status: Acute (3) HTN (hypertension): Status: Acute (4) Non-rheumatic aortic stenosis: Status: Acute (5) Atherosclerotic cardiovascular disease: Problem details: Status post stenting Status: Acute Assessment and Plan: 85yo F with HTN, HLD, DM2, hypothyroidism, CAD s/p PCI admitted with falls, elevated troponin C diff infection No further episodes of diarrhea patient finish course of oral vancomycin times 14 days cognitive impairment Evaluated by psychiatry- does need guardianship , had hearing in court today to assess financial assessment, will have another court date for actual guardianship. HTN Better controlled ,continue enelapril, hydralazine, hctz, and nifedipine acute grief reaction grieving over of . counseling support given. Hx CAD seen by Cardiology and recommended medical treatment,for stable CAD with ASA + statin, not on beta-blockers due to bradycardia DM2 with hypoglycemia Stable blood sugar continue correction-dose lispro and metformin, at home was using glimepiride hypothyroidism continue LT4 VTE ppx LMWH Dispo Awaiting guardianship
--- NOTE | 2020-12-14 13:17 | MHC.CM.PN ---
NURSE DIGITAL MEDIA REPRESENTATIVE NOTE ELECTRONIC MEDICAL RECORD REVIEWED ALONG WITH CASE DISCUSSED WITH STAFF NURSE , WORKDAY SENIOR ASSOCIATE DIRECTOR AND THE HOSPITALIST MET WITH PATIENT TODAY AWARE OF THE COURT HEARING TODAY 12/14/20 CONSERVATOR HEARING VIA ZOOM W/CM SUPPORT AT 10 AM MS. CAMEJO HAS BEEN APPOINTED TEMPORARY CONSERVATORY.(AND WILL INVESTIGATE ALL HER FINANCIAL EXPENSES AND ASSETS AND CONDITION OF THE HOUSE, ONCE THIS IS COMPLETED DECISION WILL BE MADE ON GUARDIAN SHIP AND PERMANENT CONSERVATORY PER PSYCH NOTES, PT NEEDS GUARDIAN/CONSERVATOR,, PT NOW LIVES ALONE HOWEVER HER HOME REQUIRES REPAIR(EXTENT UNKNOWN) PRIOR TO HER BEING ABLE TO RETURN. BREAKDOWN WORKER CAME TO ME AND EXPLAINED THAT PATIENT WANTED TO TALK WITH CASE MANAGEMENT , I MET WITH HER SHE IS VERY FOCUSED ON THE FACT THAT DURNING THE HEARING THEY SAID THEY WOULD DO TEMPORARY CONSEVERATOR AND REASSESS IN 90 DAYS SHE IS FIXATED ON THIS , I TRIED TO EXPLAIN THAT IT COULD BE A EARLIER HEARING IF MS CAMEJO WAS ABLE TO COMPLETE EVERYYTHING,
[2020-12-14 15:26] VITALS: BP 159/67; PULSE 71; RESP 16; TEMP 36.6; O2SAT 97
[2020-12-14 15:48] VITALS: BP 159/67; PULSE 71
[2020-12-14 16:20] LABS: Glucose, Whole Blood 66 mg/dL (60-115)
[2020-12-14 16:56] LABS: Glucose, Whole Blood 147 mg/dL (60-115)
[2020-12-14] MEDS: Donepezil HCl 5 MG TABLET PO (20:03)
[2020-12-14] MEDS: Atorvastatin Calcium 80 MG TABLET PO (20:03)
[2020-12-14 20:04] VITALS: BP 116/58; PULSE 61
[2020-12-14 20:50] LABS: Glucose, Whole Blood 140 mg/dL (60-115)
[2020-12-14 23:39] VITALS: BP 126/60; PULSE 62; RESP 16; TEMP 36.6; O2SAT 96
[2020-12-15] VITALS (7 sets, daily range): BP systolic 123–180; BP diastolic 40–90; PULSE 61–103; RESP 14–20; TEMP 35.9–36.3; O2SAT 93–97
[2020-12-15] MEDS: Levothyroxine Sodium 75 MCG TABLET PO (06:25)
[2020-12-15 07:06] LABS: Creatinine Clr Calc Pharmacy 31.1; Estimated Glomerular Filt Rate 46
[2020-12-15 08:32] LABS: Glucose, Whole Blood 97 mg/dL (60-115)
[2020-12-15] MEDS: 0.9 % Sodium Chloride Flush 3 ML SYRINGE IVFLUSH (09:29)
[2020-12-15] MEDS: Enoxaparin Sodium 40 MG/0.4 ML SYRINGE SUBCUT (09:29)
[2020-12-15] MEDS: Aspirin 81 MG TAB.CHEW PO (09:29)
[2020-12-15] MEDS: hydrALAZINE HCl 50 MG TABLET 100 MG PO ×3 (09:29→20:45)
[2020-12-15] MEDS: NIFEdipine ER 30 MG TAB.ER.24 60 MG PO (09:29)
[2020-12-15] MEDS: metFORMIN HCl 500 MG TABLET PO ×2 (09:29→18:13)
[2020-12-15] MEDS: Enalapril Maleate 10 MG TABLET 20 MG PO ×2 (09:29→20:44)
[2020-12-15] MEDS: hydroCHLOROthiazide 25 MG TABLET PO (09:29)
--- NOTE | 2020-12-15 10:11 | P.PNIM_ITS ---
Subjective Subjective Date of Service: 12/15/20 Interval History: no acute complaints, noted to have low blood sugar yesterday evening that improved after dinner, no behavioral issues. ROS General no headache ,no dizziness, no fever, chills. CVS no chest pain, no palpitation. Respiratory no cough, no sob. Gastrointestinal no nausea, no vomiting, no abdominal pain Physical Exam Vital Signs: Vital Signs: Last Vital Signs Temp 97.0 F 12/15/20 08:00 Pulse 103 H 12/15/20 08:00 Resp 18 12/15/20 08:00 BP 132/66 12/15/20 08:00 Pulse Ox 93 12/15/20 08:00 Body Mass Index 20.2 General no acute distress. Neck no JVD. CVS regular rate rhythm, Respiratory lungs clear to auscultation, no respiratory distress Gastrointestinal abdomen soft, nontender, bowel sounds audible Extremities no edema. Neuro nonfocal , speech clear. Skin no rash Objective Data Current Medications Generic Name Dose Route Start Last Admin Trade Name Freq PRN Reason Stop Dose Admin Acetaminophen 650 mg 09/28/20 11:39 10/27/20 11:12 Acetaminophen 325 Mg Tablet PO 650 mg Q6H PRN Administration PAINFEV Aspirin 81 mg 09/21/20 09:00 12/15/20 09:29 Aspirin 81 Mg Tab.Chew PO 81 mg DAILY RAGHAVENDRA Administration Atorvastatin Calcium 80 mg 10/04/20 21:00 12/14/20 20:03 Atorvastatin Calcium 80 Mg Tablet PO 80 mg BEDTIME RAGHAVENDRA Administration Donepezil HCl 5 mg 12/11/20 21:00 12/14/20 20:03 Donepezil Hcl 5 Mg Tablet PO 5 mg BEDTIME RAGHAVENDRA Administration Enalapril Maleate 20 mg 10/05/20 12:00 12/15/20 09:29 Enalapril Maleate 10 Mg Tablet PO 20 mg BID RAGHAVENDRA Administration Enoxaparin Sodium 40 mg 10/07/20 08:00 12/15/20 09:29 Enoxaparin Sodium 40 Mg/0.4 Ml Syringe SUBCUT 40 mg Q24H RAGHAVENDRA Administration Hydralazine HCl 100 mg 11/05/20 15:00 12/15/20 09:29 Hydralazine Hcl 50 Mg Tablet PO 100 mg TID RAGHAVENDRA Administration Protocol Hydrochlorothiazide 25 mg 11/16/20 09:00 12/15/20 09:29 Hydrochlorothiazide 25 Mg Tablet PO 25 mg DAILY RAGHAVENDRA Administration Protocol Hydroxyzine HCl 25 mg 09/25/20 19:19 12/05/20 09:34 Hydroxyzine Hcl 25 Mg Tablet PO 25 mg Q8H PRN Administration Restlessness Insulin Human Lispro 0 unit 09/21/20 07:30 12/15/20 08:36 Insulin Lispro 100 Unit/Ml 3 Ml Vial SUBCUT Not Given QIDACHS [facility] Protocol Levothyroxine Sodium 75 mcg 09/21/20 06:30 12/15/20 06:25 Levothyroxine Sodium 75 Mcg Tablet PO 75 mcg DAILY@0630 RAGHAVENDRA Administration Loperamide HCl 2 mg 10/11/20 08:21 12/13/20 03:29 Loperamide Hcl 2 Mg Capsule PO 2 mg Q6H PRN Administration Constipation Metformin HCl 500 mg 10/10/20 17:00 12/15/20 09:29 Metformin Hcl 500 Mg Tablet PO 500 mg BIDWM RAGHAVENDRA Administration Nifedipine 60 mg 11/28/20 09:00 12/15/20 09:29 Nifedipine Er 30 Mg Tab.Er.24 PO 60 mg DAILY RAGHAVENDRA Administration Protocol Pharmacy Consult 1 each 09/20/20 18:27 Consult Rx Perform Med Rec MISCELLANE ONCE PRN Consult order Sodium Chloride 3 ml 09/21/20 00:00 12/15/20 09:29 0.9 % Sodium Chloride Flush 3 Ml Syringe IVFLUSH 3 ml QSHIFT RAGHAVENDRA Administration Trazodone HCl 25 mg 09/25/20 19:19 10/08/20 21:02 Trazodone Hcl 25 Mg Halftab PO 25 mg BEDTIME PRN Administration Insomnia Labs CBC & Chem 7: 11/25/20 05:48 12/15/20 06:26 Microbiology Microbiology Results: Microbiology 11/24/20 08:18 Stool Stool Culture - Final 09/21/20 Unknown Urine clean catch - Clean Catch Midstream Urine Culture - Final No growth. Assessment and Plan (1) Clostridioides difficile infection: Status: Acute (2) Dementia, vascular, mixed: Status: Acute (3) HTN (hypertension): Status: Acute (4) Neurocognitive disorder: Status: Acute Assessment and Plan: 85yo F with HTN, HLD, DM2, hypothyroidism, CAD s/p PCI admitted with falls, elevated troponin C diff infection No further episodes of diarrhea,s/p vancomycin treatment for 14 days cognitive impairment Evaluated by psychiatry- does need guardianship , had hearing in court today to assess financial assessment, will have another court date for actual daryla rdianship. HTN Better controlled ,continue enelapril, hydralazine, hctz, and nifedipine acute grief reaction grieving over of . counseling support given. Hx CAD seen by Cardiology and recommended medical treatment,for stable CAD with ASA + statin, not on beta-blockers due to bradycardia DM2 with hypoglycemia Fluctuating blood sugars, will DC correction dose lispro and q.i.d. blood sugar monitoring, check hemoglobin A1c continue metformin, at home was using glimepiride will hold for now. hypothyroidism continue LT4 VTE ppx LMWH Dispo Awaiting guardianship
[2020-12-15] MEDS: Insulin Lispro 100 UNIT/ML 3 ML VIAL SUBCUT ×2 (11:42→20:43)
[2020-12-15 12:17] LABS: Glucose, Whole Blood 194 mg/dL (60-115)
[2020-12-15 15:50] LABS: Glucose, Whole Blood 67 mg/dL (60-115)
[2020-12-15 16:16] LABS: Glucose, Whole Blood 87 mg/dL (60-115)
[2020-12-15 20:31] LABS: Glucose, Whole Blood 187 mg/dL (60-115)
[2020-12-15] MEDS: Atorvastatin Calcium 80 MG TABLET PO (20:44)
[2020-12-15] MEDS: Donepezil HCl 5 MG TABLET PO (20:44)
[2020-12-16] MEDS: Levothyroxine Sodium 75 MCG TABLET PO (06:43)
[2020-12-16 07:37] VITALS: BP 132/45; PULSE 99; RESP 18; TEMP 36.2; O2SAT 96
[2020-12-16 07:52] LABS: Glucose, Whole Blood 114 mg/dL (60-115)
[2020-12-16] MEDS: metFORMIN HCl 500 MG TABLET PO ×2 (08:37→15:56)
[2020-12-16] MEDS: Enoxaparin Sodium 40 MG/0.4 ML SYRINGE SUBCUT (08:37)
[2020-12-16] MEDS: Aspirin 81 MG TAB.CHEW PO (08:37)
[2020-12-16] MEDS: NIFEdipine ER 30 MG TAB.ER.24 60 MG PO (08:38)
[2020-12-16] MEDS: hydrALAZINE HCl 50 MG TABLET 100 MG PO ×3 (08:38→21:04)
[2020-12-16] MEDS: Enalapril Maleate 10 MG TABLET 20 MG PO ×2 (08:38→21:04)
[2020-12-16] MEDS: hydroCHLOROthiazide 25 MG TABLET PO (08:38)
[2020-12-16 11:57] LABS: Glucose, Whole Blood 161 mg/dL (60-115)
--- NOTE | 2020-12-16 12:27 | P.PNIM_ITS ---
Subjective Subjective Date of Service: 12/16/20 Interval History: no acute complaints, noted to have fluctuating blood sugars, patient very calm and cooperative, no behavioral issues. ROS General no headache ,no dizziness, no fever, chills. CVS no chest pain, no palpitation. Respiratory no cough, no sob. Gastrointestinal no nausea, no vomiting, no abdominal pain Physical Exam Vital Signs: Vital Signs: Last Vital Signs Temp 97.2 F 12/16/20 07:37 Pulse 99 12/16/20 07:37 Resp 18 12/16/20 07:37 BP 132/45 L 12/16/20 07:37 Pulse Ox 96 12/16/20 07:37 Body Mass Index 20.2 General no acute distress. Neck no JVD. CVS regular rate rhythm, Respiratory lungs clear to auscultation, no respiratory distress Gastrointestinal abdomen soft, nontender, bowel sounds audible Extremities no edema. Neuro nonfocal , speech clear. Skin no rash Psych appropriate affect Objective Data Current Medications Generic Name Dose Route Start Last Admin Trade Name Freq PRN Reason Stop Dose Admin Acetaminophen 650 mg 09/28/20 11:39 10/27/20 11:12 Acetaminophen 325 Mg Tablet PO 650 mg Q6H PRN Administration PAINFEV Aspirin 81 mg 09/21/20 09:00 12/16/20 08:37 Aspirin 81 Mg Tab.Chew PO 81 mg DAILY RAGHAVENDRA Administration Atorvastatin Calcium 80 mg 10/04/20 21:00 12/15/20 20:44 Atorvastatin Calcium 80 Mg Tablet PO 80 mg BEDTIME RAGHAVENDRA Administration Donepezil HCl 5 mg 12/11/20 21:00 12/15/20 20:44 Donepezil Hcl 5 Mg Tablet PO 5 mg BEDTIME RAGHAVENDRA Administration Enalapril Maleate 20 mg 10/05/20 12:00 12/16/20 08:38 Enalapril Maleate 10 Mg Tablet PO 20 mg BID RAGHAVENDRA Administration Enoxaparin Sodium 40 mg 10/07/20 08:00 12/16/20 08:37 Enoxaparin Sodium 40 Mg/0.4 Ml Syringe SUBCUT 40 mg Q24H RAGHAVENDRA Administration Hydralazine HCl 100 mg 11/05/20 15:00 12/16/20 08:38 Hydralazine Hcl 50 Mg Tablet PO 100 mg TID RAGHAVENDRA Administration Protocol Hydrochlorothiazide 25 mg 11/16/20 09:00 12/16/20 08:38 Hydrochlorothiazide 25 Mg Tablet PO 25 mg DAILY RAGHAVENDRA Administration Protocol Hydroxyzine HCl 25 mg 09/25/20 19:19 12/05/20 09:34 Hydroxyzine Hcl 25 Mg Tablet PO 25 mg Q8H PRN Administration Restlessness Levothyroxine Sodium 75 mcg 09/21/20 06:30 12/16/20 06:43 Levothyroxine Sodium 75 Mcg Tablet PO 75 mcg DAILY@0630 RAGHAVENDRA Administration Loperamide HCl 2 mg 10/11/20 08:21 12/13/20 03:29 Loperamide Hcl 2 Mg Capsule PO 2 mg Q6H PRN Administration Constipation Metformin HCl 500 mg 10/10/20 17:00 12/16/20 08:37 Metformin Hcl 500 Mg Tablet PO 500 mg BIDWM RAGHAVENDRA Administration Nifedipine 60 mg 11/28/20 09:00 12/16/20 08:38 Nifedipine Er 30 Mg Tab.Er.24 PO 60 mg DAILY RAGHAVENDRA Administration Protocol Pharmacy Consult 1 each 09/20/20 18:27 Consult Rx Perform Med Rec MISCELLANE ONCE PRN Consult order Sodium Chloride 3 ml 09/21/20 00:00 12/16/20 07:49 0.9 % Sodium Chloride Flush 3 Ml Syringe IVFLUSH Not Given QSHIFT [facility] Trazodone HCl 25 mg 09/25/20 19:19 10/08/20 21:02 Trazodone Hcl 25 Mg Halftab PO 25 mg BEDTIME PRN Administration Insomnia Labs CBC & Chem 7: 11/25/20 05:48 12/15/20 06:26 Microbiology Microbiology Results: Microbiology 11/24/20 08:18 Stool Stool Culture - Final 09/21/20 Unknown Urine clean catch - Clean Catch Midstream Urine Culture - Final No growth. Assessment and Plan (1) Neurocognitive disorder: Status: Acute (2) Dementia, vascular, mixed: Status: Acute (3) HTN (hypertension): Status: Acute (4) Communicating hydrocephalus: Status: Acute (5) Atherosclerotic cardiovascular disease: Problem details: Status post stenting Status: Acute Assessment and Plan: 85yo F with HTN, HLD, DM2, hypothyroidism, CAD s/p PCI admitted with falls, elevated troponin cognitive impairment Evaluated by psychiatry- does need guardianship , had hearing in court 12/14 to assess financial assessment, will have another court date for actual guardianship. C. diff infection No further episodes of diarrhea,s/p vancomycin treatment for 14 days HTN Better controlled ,continue enelapril, hydralazine, hctz, and nifedipine acute grief reaction grieving over of . counseling support given. Hx CAD seen by Cardiology and recommended medical treatment,for stable CAD with ASA + s tatin, not on beta-blockers due to bradycardia DM2 with hypoglycemia Fluctuating blood sugars, will DC correction dose lispro and q.i.d. blood sugar monitoring, check hemoglobin A1c with next blood draw, continue metformin, at home was using glimepiride will hold for now due to episodes of borderline low blood sugars. hypothyroidism continue LT4 VTE ppx LMWH Dispo Awaiting guardianship
[2020-12-16 15:50] VITALS: BP 169/77; PULSE 83; RESP 20; TEMP 36.4; O2SAT 98
--- NOTE | 2020-12-16 16:01 | PC.NURSE ---
Pt A+Ox4. Cooperative with care. Low falls risk and ind/ up ad daina in pt room. Pt rings call button appropriately/ asks for assistance. Steady with walker in hallway. Removed telesitter from pt room per pt request and will cont to monitor and assess and re implement if necessary.
[2020-12-16 21:04] VITALS: BP 169/77; PULSE 83
[2020-12-16] MEDS: Atorvastatin Calcium 80 MG TABLET PO (21:04)
[2020-12-16] MEDS: Donepezil HCl 5 MG TABLET PO (21:04)
[2020-12-16 23:38] VITALS: BP 121/43; PULSE 84; RESP 19; TEMP 36.7; O2SAT 96
[2020-12-17] MEDS: Levothyroxine Sodium 75 MCG TABLET PO (06:03)
[2020-12-17 07:53] VITALS: BP 133/45; PULSE 74; RESP 18; TEMP 36.1; O2SAT 96
[2020-12-17 08:07] LABS: Glucose, Whole Blood 112 mg/dL (60-115)
[2020-12-17] MEDS: metFORMIN HCl 500 MG TABLET PO ×2 (09:15→17:25)
[2020-12-17] MEDS: Enalapril Maleate 10 MG TABLET 20 MG PO ×2 (09:15→20:07)
[2020-12-17] MEDS: Aspirin 81 MG TAB.CHEW PO (09:15)
[2020-12-17] MEDS: hydrALAZINE HCl 50 MG TABLET 100 MG PO ×3 (09:15→20:07)
[2020-12-17] MEDS: NIFEdipine ER 30 MG TAB.ER.24 60 MG PO (09:15)
[2020-12-17] MEDS: hydroCHLOROthiazide 25 MG TABLET PO (09:15)
[2020-12-17 12:00] LABS: Glucose, Whole Blood 161 mg/dL (60-115)
--- NOTE | 2020-12-17 12:09 | P.PNIM_ITS ---
Subjective Subjective Date of Service: 12/17/20 Interval History: No acute complaints, tolerating diet ambulating no acute issues overnight ROS General no headache ,no dizziness, no fever, chills. CVS no chest pain, no palpitation. Respiratory no cough, no sob. Gastrointestinal no nausea, no vomiting, no abdominal pain . Physical Exam Vital Signs: Vital Signs: Last Vital Signs Temp 97.0 F 12/17/20 07:53 Pulse 74 12/17/20 07:53 Resp 18 12/17/20 07:53 BP 133/45 L 12/17/20 07:53 Pulse Ox 96 12/17/20 07:53 Body Mass Index 20.2 General no acute distress. Neck no JVD. CVS regular rate rhythm, Respiratory lungs clear to auscultation, no respiratory distress Gastrointestinal abdomen soft, nontender, bowel sounds audible Extremities no edema. Neuro nonfocal , speech clear. Skin no rash Psych appropriate affect Objective Data Current Medications Generic Name Dose Route Start Last Admin Trade Name Freq PRN Reason Stop Dose Admin Acetaminophen 650 mg 09/28/20 11:39 10/27/20 11:12 Acetaminophen 325 Mg Tablet PO 650 mg Q6H PRN Administration PAINFEV Aspirin 81 mg 09/21/20 09:00 12/17/20 09:15 Aspirin 81 Mg Tab.Chew PO 81 mg DAILY RAGHAVENDRA Administration Atorvastatin Calcium 80 mg 10/04/20 21:00 12/16/20 21:04 Atorvastatin Calcium 80 Mg Tablet PO 80 mg BEDTIME RAGHAVENDRA Administration Donepezil HCl 5 mg 12/11/20 21:00 12/16/20 21:04 Donepezil Hcl 5 Mg Tablet PO 5 mg BEDTIME RAGHAVENDRA Administration Enalapril Maleate 20 mg 10/05/20 12:00 12/17/20 09:15 Enalapril Maleate 10 Mg Tablet PO 20 mg BID RAGHAVENDRA Administration Enoxaparin Sodium 40 mg 10/07/20 08:00 12/17/20 09:29 Enoxaparin Sodium 40 Mg/0.4 Ml Syringe SUBCUT Not Given Q24H RAGHAVENDRA Hydralazine HCl 100 mg 11/05/20 15:00 12/17/20 09:15 Hydralazine Hcl 50 Mg Tablet PO 100 mg TID RAGHAVENDRA Administration Protocol Hydrochlorothiazide 25 mg 11/16/20 09:00 12/17/20 09:15 Hydrochlorothiazide 25 Mg Tablet PO 25 mg DAILY RAGHAVENDRA Administration Protocol Hydroxyzine HCl 25 mg 09/25/20 19:19 12/05/20 09:34 Hydroxyzine Hcl 25 Mg Tablet PO 25 mg Q8H PRN Administration Restlessness Levothyroxine Sodium 75 mcg 09/21/20 06:30 12/17/20 06:03 Levothyroxine Sodium 75 Mcg Tablet PO 75 mcg DAILY@0630 RAGHAVENDRA Administration Loperamide HCl 2 mg 10/11/20 08:21 12/13/20 03:29 Loperamide Hcl 2 Mg Capsule PO 2 mg Q6H PRN Administration Constipation Metformin HCl 500 mg 10/10/20 17:00 12/17/20 09:15 Metformin Hcl 500 Mg Tablet PO 500 mg BIDWM RAGHAVENDRA Administration Nifedipine 60 mg 11/28/20 09:00 12/17/20 09:15 Nifedipine Er 30 Mg Tab.Er.24 PO 60 mg DAILY RAGHAVENDRA Administration Protocol Pharmacy Consult 1 each 09/20/20 18:27 Consult Rx Perform Med Rec MISCELLANE ONCE PRN Consult order Sodium Chloride 3 ml 09/21/20 00:00 12/17/20 07:15 0.9 % Sodium Chloride Flush 3 Ml Syringe IVFLUSH Not Given QSHIFT [facility] Trazodone HCl 25 mg 09/25/20 19:19 10/08/20 21:02 Trazodone Hcl 25 Mg Halftab PO 25 mg BEDTIME PRN Administration Insomnia Labs CBC & Chem 7: 11/25/20 05:48 12/15/20 06:26 Microbiology Microbiology Results: Microbiology 11/24/20 08:18 Stool Stool Culture - Final 09/21/20 Unknown Urine clean catch - Clean Catch Midstream Urine Culture - Final No growth. Assessment and Plan (1) Dementia, vascular, mixed: Status: Acute (2) HTN (hypertension): Status: Acute (3) Communicating hydrocephalus: Status: Acute (4) Neurocognitive disorder: Status: Acute (5) Atherosclerotic cardiovascular disease: Problem details: Status post stenting Status: Acute (6) Non-rheumatic aortic stenosis: Status: Acute (7) Clostridioides difficile infection: Status: Acute Assessment and Plan: 85yo F with HTN, HLD, DM2, hypothyroidism, CAD s/p PCI admitted with falls, elev ated troponin cognitive impairment Evaluated by psychiatry does need guardianship , had hearing in court 12/14 to assess financial assessment, will have another court date for actual guardianship. C. diff infection No further episodes of diarrhea,s/p vancomycin treatment for 14 days HTN Better controlled ,continue enelapril, hydralazine, hctz, and nifedipine acute grief reaction grieving over of . counseling support given. Hx CAD seen by Cardiology and recommended medical treatment,for stable CAD cont. ASA + statin, not on beta-blockers due to bradycardia DM2 with hypoglycemia Fluctuating blood sugars, will DC correction dose lispro and q.i.d. blood sugar monitoring, check hemoglobin A1c with next blood draw, continue metformin, at home was using glimepiride will hold for now due to episodes of borderline low blood sugars. hypothyroidism continue LT4 VTE ppx LMWH Dispo Awaiting guardianship
[2020-12-17 15:22] VITALS: BP 152/64; PULSE 64; RESP 20; TEMP 36.2; O2SAT 99
[2020-12-17 15:52] VITALS: BP 152/64; PULSE 64
[2020-12-17] MEDS: Atorvastatin Calcium 80 MG TABLET PO (20:06)
[2020-12-17 20:07] VITALS: BP 155/74; PULSE 74
[2020-12-17] MEDS: Donepezil HCl 5 MG TABLET PO (20:07)
--- NOTE | 2020-12-17 20:14 | MHC.CARE ---
CARE team consult requested for 85 year old female who has been admitted to the hospital since 09/20/20. Pt was initially admitted for leg pain s/p to poorly managed diabetes after pt had called EMS for her who had fallen on the stairs while entering their home. Pt's , 89, was transported to [facility] where he soon after from the head trauma. Pt has been admitted to the inpatient medical units since initial hospital presentation due to the concerns re: pt's competence and ability to safely return home and live independently. Pt isn't agreeable to STR or LTC and has been seen twice by Psychiatry with recommendations to pursue guardianship. Case management initiated petition to the district court for guardianship/conservatorship with hearing taking place on 12/14/20. A 90 day assessment phase has been initiated to review pt's assets, finances, cost of updates and repairs in the home, etc. Today pt was tearful and requesting someone to speak with about her feelings with regards to the of her , the possible loss of her home and her independence, and general frustration, sadness, and loneliness that comes with being admitted to a hospital for an extended period of time. Pt was pleasant during the interaction. Pt often repeated the same information in a loop, starting with the work she did for years, the alcoholism and abuse experienced in her first marriage, the wonderful support she received from Jesus, then talking about her home, the vehicles that she wants to sell, and her neighbors that are more deserving of scrutiny by the building energy retrofit technician than her house was. Pt reported that she has friends who call her daily to chat and feels that the staff at the hospital have been wonderful and are always checking in on her. Pt stated that she's going crazy being in the hospital and is worried that her finances are going to get unmanageable because she doesn't have her checkbook and can't pay her mortgage and other bills. This account underwriter offered to find books or puzzles to use, which pt responded I never had time for those and declined. Pt said she's been watching TV and goes for walks up and down the hallway a few times per day. Pt was appreciative of the support, and was encouraged by this account underwriter to let staff know if she feels that she would benefit from more while she's admitted in the hospital. This account underwriter checked in with floor RN and refinery operator crude unit following consult. CARE team available as needed.
[2020-12-18] VITALS (11 sets, daily range): BP systolic 102–147; BP diastolic 40–68; PULSE 53–85; RESP 16–20; TEMP 36.1–36.8; O2SAT 92–99
[2020-12-18] MEDS: Loperamide HCl 2 MG CAPSULE PO ×2 (01:15→08:43)
[2020-12-18] MEDS: Levothyroxine Sodium 75 MCG TABLET PO (05:59)
[2020-12-18 07:16] LABS: Glucose, Whole Blood 109 mg/dL (60-115)
[2020-12-18] MEDS: Enalapril Maleate 10 MG TABLET 20 MG PO ×2 (08:39→20:18)
[2020-12-18] MEDS: metFORMIN HCl 500 MG TABLET PO ×2 (08:39→16:41)
[2020-12-18] MEDS: hydrALAZINE HCl 50 MG TABLET 100 MG PO ×3 (08:39→20:17)
[2020-12-18] MEDS: hydroCHLOROthiazide 25 MG TABLET PO (08:39)
[2020-12-18] MEDS: Enoxaparin Sodium 40 MG/0.4 ML SYRINGE SUBCUT (08:39)
[2020-12-18] MEDS: Aspirin 81 MG TAB.CHEW PO (08:39)
[2020-12-18] MEDS: NIFEdipine ER 30 MG TAB.ER.24 60 MG PO (08:40)
[2020-12-18 11:20] LABS: Glucose, Whole Blood 187 mg/dL (60-115)
--- NOTE | 2020-12-18 13:13 | MHC.CM.PN ---
Addendum entered by Vibha Bills 01/08/21 15:11: CORRECTION ; MICHAEL'S PHONE NUMBER IS [phone] Original Note: nurse healthcare specialist note electroniuc medical record reviewed along with case discussed on multiple disciplinary rounds with case managaement director, met with patient she reported to me that ms rajput and has not called her over the weekend or cqme in to see her, i called ms michael rajput [phone] and left message with my two phone numbers to contact me, i also informed her that patient was also anxiously awaitng her call and i gave her the number to the unit where they could then give her patient direct phone number (in case there was a room change). i inform,ed patient of this also . (she voiced concern about not being able to pay her house morgage
--- NOTE | 2020-12-18 14:00 | HO.PM.IMPN ---
Subjective Subjective Date of Service: 12/18/20 Interval History: seen and examined this AM no issues reported by public health staff nurse pt wants to go home, doesnt understand why shes still here Physical Exam Vital Signs: Vital Signs: Last Vital Signs Temp 96.9 F 12/18/20 11:37 Pulse 73 12/18/20 11:37 Resp 20 12/18/20 11:37 BP 102/61 12/18/20 11:37 Pulse Ox 99 12/18/20 11:37 Body Mass Index 20.2 Const: Other: General no acute distress. Neck no JVD. CVS regular rate rhythm, Respiratory lungs clear to auscultation, no respiratory distress Gastrointestinal abdomen soft, nontender, bowel sounds audible Extremities no edema. Neuro nonfocal , speech clear. Skin no rash Psych appropriate affect but impaired insight Objective Data Current Medications Generic Name Dose Route Start Last Admin Trade Name Freq PRN Reason Stop Dose Admin Acetaminophen 650 mg 09/28/20 11:39 10/27/20 11:12 Acetaminophen 325 Mg Tablet PO 650 mg Q6H PRN Administration PAINFEV Aspirin 81 mg 09/21/20 09:00 12/18/20 08:39 Aspirin 81 Mg Tab.Chew PO 81 mg DAILY RAGHAVENDRA Administration Atorvastatin Calcium 80 mg 10/04/20 21:00 12/17/20 20:06 Atorvastatin Calcium 80 Mg Tablet PO 80 mg BEDTIME RAGHAVENDRA Administration Donepezil HCl 5 mg 12/11/20 21:00 12/17/20 20:07 Donepezil Hcl 5 Mg Tablet PO 5 mg BEDTIME RAGHAVENDRA Administration Enalapril Maleate 20 mg 10/05/20 12:00 12/18/20 08:39 Enalapril Maleate 10 Mg Tablet PO 20 mg BID RAGHAVENDRA Administration Enoxaparin Sodium 40 mg 10/07/20 08:00 12/18/20 08:39 Enoxaparin Sodium 40 Mg/0.4 Ml Syringe SUBCUT 40 mg Q24H RAGHAVENDRA Administration Hydralazine HCl 100 mg 11/05/20 15:00 12/18/20 08:39 Hydralazine Hcl 50 Mg Tablet PO 100 mg TID RAGHAVENDRA Administration Protocol Hydrochlorothiazide 25 mg 11/16/20 09:00 12/18/20 08:39 Hydrochlorothiazide 25 Mg Tablet PO 25 mg DAILY RAGHAVENDRA Administration Protocol Hydroxyzine HCl 25 mg 09/25/20 19:19 12/05/20 09:34 Hydroxyzine Hcl 25 Mg Tablet PO 25 mg Q8H PRN Administration Restlessness Levothyroxine Sodium 75 mcg 09/21/20 06:30 12/18/20 05:59 Levothyroxine Sodium 75 Mcg Tablet PO 75 mcg DAILY@0630 RAGHAVENDRA Administration Loperamide HCl 2 mg 10/11/20 08:21 12/18/20 08:43 Loperamide Hcl 2 Mg Capsule PO 2 mg Q6H PRN Administration Constipation Metformin HCl 500 mg 10/10/20 17:00 12/18/20 08:39 Metformin Hcl 500 Mg Tablet PO 500 mg BIDWM RAGHAVENDRA Administration Nifedipine 60 mg 11/28/20 09:00 12/18/20 08:40 Nifedipine Er 30 Mg Tab.Er.24 PO 60 mg DAILY RAGHAVENDRA Administration Protocol Pharmacy Consult 1 each 09/20/20 18:27 Consult Rx Perform Med Rec MISCELLANE ONCE PRN Consult order Sodium Chloride 3 ml 09/21/20 00:00 12/18/20 08:39 0.9 % Sodium Chloride Flush 3 Ml Syringe IVFLUSH 3 ml QSHIFT RAGHAVENDRA Administration Trazodone HCl 25 mg 09/25/20 19:19 10/08/20 21:02 Trazodone Hcl 25 Mg Halftab PO 25 mg BEDTIME PRN Administration Insomnia Labs CBC & Chem 7: 11/25/20 05:48 12/15/20 06:26 Microbiology Microbiology Results: Microbiology 11/24/20 08:18 Stool Stool Culture - Final 09/21/20 Unknown Urine clean catch - Clean Catch Midstream Urine Culture - Final No growth. Assessment and Plan (1) Dementia, vascular, mixed: Status: Acute Assessment and Plan: 85yo F with HTN, HLD, DM2, hypothyroidism, CAD s/p PCI admitted with falls, elevated troponin medically stable cognitive impairment Evaluated by psychiatry does need guardianship , had hearing in court 12/14 to assess financial assessment, will have another court date for actual guardianship. C. diff infection No further episodes of diarrhea,s/p vancomycin treatment for 14 days HTN Better controlled ,continue enelapril, hydralazine, hctz, and nifedipine acute grief reaction grieving over of . counseling support given. Hx CAD seen by Cardiology and recommended medical treatment,for stable CAD cont. ASA + statin, not on beta-blockers due to bradycardia DM2 with hypoglycemia Fluctuating blood sugars, will DC correction dose lispro and q.i.d. blood sugar monitoring, check hemoglobin A1c with next blood draw, continue metformin, at home was using glimepiride will hold for now due to episodes of borderline low blood sugars. hypothyroidism continue LT4 VTE ppx LMWH Dispo Awaiting guardianship
--- NOTE | 2020-12-18 15:32 | MHC.CM.PN ---
nurse healthcare facility administrator note electronic medical record reviewed , spoke with staff nurse , hospitalist, reviewed care team note from 12/17/20. met with patient , she basically repeated to me what she had told me and what she told the cares teAM WORKER ABOUT HER FRUSTRATION WITH HER LONG HOSPITAL STAY , AND THE NEED TO PAY HER MORTGAGE AND OTHER BILLS, . PATIENT WAS ASSIGNED A TEMPORARY CONSERVATOR ON 12/14/[address] PAPERWORK OBTAINED ON FRIDAY. I REACHED OUT TO THE CONSERVATOR CRISTINA EDWARDS . SHE REPORTED TO ME THAT SHE WAS ABLE TO GET INTO PATIENTS HOUSE;REPORTED CONDITIONS OF THE HOME RE TO CASE MANAGEMENT MANAGER MALL.CRISTINA IS AWAITING COURT PAPERWORK FROM THE COURT SO SHE CAN GO TO THE [place] AND CHECK HER ASSETS. AT THIS TIME SHE REPORTED THAT PATIENT WOULD NOT BE ABLE TO RETURN TO HER HOME IN THE PRESENT CONDITION,. SHE WILL REACH OUT TO THE PATIENT EITHER TODAY OR TOMORROW ELECTRONIC ENGRAVER TOMCONTINUE TO FOLLOW
[2020-12-18] MEDS: Donepezil HCl 5 MG TABLET PO (20:18)
[2020-12-18] MEDS: Atorvastatin Calcium 80 MG TABLET PO (20:18)
[2020-12-19] VITALS (8 sets, daily range): BP systolic 131–167; BP diastolic 49–77; PULSE 58–75; RESP 18–20; TEMP 36.2–36.7; O2SAT 96–97; BMI 20.2
[2020-12-19] MEDS: Levothyroxine Sodium 75 MCG TABLET PO (06:02)
[2020-12-19 07:41] LABS: Glucose, Whole Blood 99 mg/dL (60-115)
[2020-12-19] MEDS: hydrALAZINE HCl 50 MG TABLET 100 MG PO ×3 (08:41→20:33)
[2020-12-19] MEDS: Enalapril Maleate 10 MG TABLET 20 MG PO ×2 (08:42→20:32)
[2020-12-19] MEDS: hydroCHLOROthiazide 25 MG TABLET PO (08:43)
[2020-12-19] MEDS: metFORMIN HCl 500 MG TABLET PO ×2 (08:43→16:24)
[2020-12-19] MEDS: NIFEdipine ER 30 MG TAB.ER.24 60 MG PO (08:43)
[2020-12-19] MEDS: Aspirin 81 MG TAB.CHEW PO (08:43)
[2020-12-19] MEDS: Enoxaparin Sodium 40 MG/0.4 ML SYRINGE SUBCUT (08:44)
--- NOTE | 2020-12-19 10:22 | HO.PM.IMPN ---
Subjective Subjective Date of Service: 12/19/20 Interval History: seen and examined this AM no new issues Physical Exam Vital Signs: Vital Signs: Last Vital Signs Temp 98.0 F 12/19/20 07:52 Pulse 75 12/19/20 08:43 Resp 18 12/19/20 07:52 BP 157/77 H 12/19/20 08:43 Pulse Ox 97 12/19/20 07:52 Body Mass Index 20.2 Const: Other: General no acute distress. Neck no JVD. CVS regular rate rhythm, Respiratory lungs clear to auscultation, no respiratory distress Gastrointestinal abdomen soft, nontender, bowel sounds audible Extremities no edema. Neuro nonfocal , speech clear. Skin no rash Psych appropriate affect but impaired insight Objective Data Current Medications Generic Name Dose Route Start Last Admin Trade Name Freq PRN Reason Stop Dose Admin Acetaminophen 650 mg 09/28/20 11:39 10/27/20 11:12 Acetaminophen 325 Mg Tablet PO 650 mg Q6H PRN Administration PAINFEV Aspirin 81 mg 09/21/20 09:00 12/19/20 08:43 Aspirin 81 Mg Tab.Chew PO 81 mg DAILY RAGHAVENDRA Administration Atorvastatin Calcium 80 mg 10/04/20 21:00 12/18/20 20:18 Atorvastatin Calcium 80 Mg Tablet PO 80 mg BEDTIME RAGHAVENDRA Administration Donepezil HCl 5 mg 12/11/20 21:00 12/18/20 20:18 Donepezil Hcl 5 Mg Tablet PO 5 mg BEDTIME RAGHAVENDRA Administration Enalapril Maleate 20 mg 10/05/20 12:00 12/19/20 08:42 Enalapril Maleate 10 Mg Tablet PO 20 mg BID RAGHAVENDRA Administration Enoxaparin Sodium 40 mg 10/07/20 08:00 12/19/20 08:44 Enoxaparin Sodium 40 Mg/0.4 Ml Syringe SUBCUT 40 mg Q24H RAGHAVENDRA Administration Hydralazine HCl 100 mg 11/05/20 15:00 12/19/20 08:41 Hydralazine Hcl 50 Mg Tablet PO 100 mg TID RAGHAVENDRA Administration Protocol Hydrochlorothiazide 25 mg 11/16/20 09:00 12/19/20 08:43 Hydrochlorothiazide 25 Mg Tablet PO 25 mg DAILY RAGHAVENDRA Administration Protocol Hydroxyzine HCl 25 mg 09/25/20 19:19 12/05/20 09:34 Hydroxyzine Hcl 25 Mg Tablet PO 25 mg Q8H PRN Administration Restlessness Levothyroxine Sodium 75 mcg 09/21/20 06:30 12/19/20 06:02 Levothyroxine Sodium 75 Mcg Tablet PO 75 mcg DAILY@0630 RAGHAVENDRA Administration Loperamide HCl 2 mg 10/11/20 08:21 12/18/20 08:43 Loperamide Hcl 2 Mg Capsule PO 2 mg Q6H PRN Administration Constipation Metformin HCl 500 mg 10/10/20 17:00 12/19/20 08:43 Metformin Hcl 500 Mg Tablet PO 500 mg BIDWM RAGHAVENDRA Administration Nifedipine 60 mg 11/28/20 09:00 12/19/20 08:43 Nifedipine Er 30 Mg Tab.Er.24 PO 60 mg DAILY RAGHAVENDRA Administration Protocol Pharmacy Consult 1 each 09/20/20 18:27 Consult Rx Perform Med Rec MISCELLANE ONCE PRN Consult order Sodium Chloride 3 ml 09/21/20 00:00 12/19/20 07:13 0.9 % Sodium Chloride Flush 3 Ml Syringe IVFLUSH Not Given [facility] Trazodone HCl 25 mg 09/25/20 19:19 10/08/20 21:02 Trazodone Hcl 25 Mg Halftab PO 25 mg BEDTIME PRN Administration Insomnia Labs CBC & Chem 7: 11/25/20 05:48 12/15/20 06:26 Microbiology Microbiology Results: Microbiology 11/24/20 08:18 Stool Stool Culture - Final 09/21/20 Unknown Urine clean catch - Clean Catch Midstream Urine Culture - Final No growth. Assessment and Plan (1) Dementia, vascular, mixed: Status: Acute Assessment and Plan: 85yo F with HTN, HLD, DM2, hypothyroidism, CAD s/p PCI admitted with falls, elevated troponin Active Issues: cognitive impairment Evaluated by psychiatry does need guardianship , had hearing in court 12/14 to assess financial assessment, will have another court date for actual guardianship. Resolved/Stable issues C. diff infection No further episodes of diarrhea,s/p vancomycin treatment for 14 days HTN Better controlled ,continue enelapril, hydralazine, hctz, and nifedipine acute grief reaction grieving over of . counseling support given. Hx CAD seen by Cardiology and recommended medical treatment,for stable CAD cont. ASA + statin, not on beta-blockers due to bradycardia DM2 with hypoglycemia Fluctuating blood sugars, will DC correction dose lispro and q.i.d. blood sugar monitoring, check hemoglobin A1c with next blood draw, continue metformin, at home was using glimepiride will hold for now due to episodes of borderline low blood sugars. hypothyroidism continue LT4 VTE ppx LMWH Dispo Awaiting guardianship
[2020-12-19] MEDS: Atorvastatin Calcium 80 MG TABLET PO (20:32)
[2020-12-19] MEDS: Donepezil HCl 5 MG TABLET PO (20:32)
[2020-12-20] MEDS: Levothyroxine Sodium 75 MCG TABLET PO (05:40)
[2020-12-20 07:14] VITALS: BP 149/70; PULSE 52; RESP 19; TEMP 36.6; O2SAT 96
[2020-12-20 07:38] LABS: Glucose, Whole Blood 111 mg/dL (60-115)
[2020-12-20] MEDS: NIFEdipine ER 30 MG TAB.ER.24 60 MG PO (09:40)
[2020-12-20] MEDS: Enalapril Maleate 10 MG TABLET 20 MG PO ×2 (09:41→20:32)
[2020-12-20] MEDS: hydrALAZINE HCl 50 MG TABLET 100 MG PO ×3 (09:41→20:32)
[2020-12-20] MEDS: metFORMIN HCl 500 MG TABLET PO ×2 (09:41→16:20)
[2020-12-20] MEDS: hydroCHLOROthiazide 25 MG TABLET PO (09:41)
[2020-12-20] MEDS: Enoxaparin Sodium 40 MG/0.4 ML SYRINGE SUBCUT (09:41)
[2020-12-20 11:24] LABS: Glucose, Whole Blood 220 mg/dL (60-115)
[2020-12-20 15:25] VITALS: BP 164/75; PULSE 77; RESP 16; TEMP 36.5; O2SAT 97
--- NOTE | 2020-12-20 15:47 | PM.EVENT ---
Event Note Date of Service: 12/20/20 Event Note: No new issues await placement continue routine care
[2020-12-20 16:20] VITALS: BP 164/75; PULSE 77
[2020-12-20 20:32] VITALS: BP 118/65; PULSE 89
[2020-12-20] MEDS: Atorvastatin Calcium 80 MG TABLET PO (20:32)
[2020-12-20] MEDS: Donepezil HCl 5 MG TABLET PO (20:32)
[2020-12-21] VITALS: BP 113/43; PULSE 70; RESP 20; TEMP 36.2; O2SAT 96
[2020-12-21 07:54] VITALS: BP 155/69; PULSE 66; RESP 18; TEMP 36.4; O2SAT 95
[2020-12-21] MEDS: metFORMIN HCl 500 MG TABLET PO ×2 (08:55→17:12)
[2020-12-21] MEDS: hydrALAZINE HCl 50 MG TABLET 100 MG PO ×3 (08:55→20:19)
[2020-12-21] MEDS: hydroCHLOROthiazide 25 MG TABLET PO (08:55)
[2020-12-21] MEDS: Enalapril Maleate 10 MG TABLET 20 MG PO ×2 (08:55→20:19)
[2020-12-21] MEDS: Enoxaparin Sodium 40 MG/0.4 ML SYRINGE SUBCUT (08:56)
[2020-12-21] MEDS: NIFEdipine ER 30 MG TAB.ER.24 60 MG PO (08:56)
[2020-12-21 10:33] LABS: Creatinine Clr Calc Pharmacy 26.4; Estimated Glomerular Filt Rate 38
--- NOTE | 2020-12-21 14:34 | P.EN_ITS ---
Event Note Date of Service: 12/21/20 Event Note: Seen this Am ambulating in the [facility] no issues reported by staff cytotechnologist 85yo F with HTN, HLD, DM2, hypothyroidism, CAD s/p PCI admitted with falls, elevated troponin Active Issues: cognitive impairment Evaluated by psychiatry does need guardianship , had hearing in court 12/14 to assess financial assessment, will have another court date for actual guardianship. Resolved/Stable issues C. diff infection No further episodes of diarrhea,s/p vancomycin treatment for 14 days HTN Better controlled ,continue enelapril, hydralazine, hctz, and nifedipine acute grief reaction grieving over of . counseling support given. Hx CAD seen by Cardiology and recommended medical treatment,for stable CAD cont. ASA + statin, not on beta-blockers due to bradycardia DM2 with hypoglycemia Fluctuating blood sugars, will DC correction dose lispro and q.i.d. blood sugar monitoring, check hemoglobin A1c with next blood draw, continue metformin, at home was using glimepiride will hold for now due to episodes of borderline low blood sugars. hypothyroidism continue LT4 VTE ppx LMWH Dispo Awaiting guardianship
[2020-12-21 15:15] VITALS: BP 166/72; PULSE 64; RESP 16; TEMP 36; O2SAT 97
[2020-12-21 15:49] VITALS: BP 166/72; PULSE 64
[2020-12-21 20:19] VITALS: BP 132/60; PULSE 78
[2020-12-21] MEDS: Atorvastatin Calcium 80 MG TABLET PO (20:20)
[2020-12-21] MEDS: Donepezil HCl 5 MG TABLET PO (20:20)
[2020-12-21 23:17] VITALS: BP 140/42; PULSE 80; RESP 20; TEMP 36.4; O2SAT 96
[2020-12-22] MEDS: Loperamide HCl 2 MG CAPSULE PO (02:26)
[2020-12-22 08:00] VITALS: BP 152/72; PULSE 57; RESP 19; TEMP 36.9; O2SAT 96
[2020-12-22 08:56] LABS: Glucose, Whole Blood 93 mg/dL (60-115)
[2020-12-22] MEDS: hydrALAZINE HCl 50 MG TABLET 100 MG PO ×3 (09:36→20:27)
[2020-12-22] MEDS: NIFEdipine ER 30 MG TAB.ER.24 60 MG PO (09:36)
[2020-12-22] MEDS: Enalapril Maleate 10 MG TABLET 20 MG PO ×2 (09:36→20:27)
[2020-12-22] MEDS: Enoxaparin Sodium 40 MG/0.4 ML SYRINGE SUBCUT (09:37)
[2020-12-22] MEDS: metFORMIN HCl 500 MG TABLET PO ×2 (09:37→17:39)
[2020-12-22] MEDS: hydroCHLOROthiazide 25 MG TABLET PO (09:37)
--- NOTE | 2020-12-22 12:34 | PM.EVENT ---
Event Note Date of Service: 12/22/20 Event Note: Daily Note Seen and examined this AM. No new issues reported. 85yo F with HTN, HLD, DM2, hypothyroidism, CAD s/p PCI admitted with falls, elevated troponin Active Issues: cognitive impairment Evaluated by psychiatry does need guardianship , had hearing in court 12/14 to assess financial assessment, will have another court date for actual guardianship. Resolved/Stable issues C. diff infection No further episodes of diarrhea,s/p vancomycin treatment for 14 days HTN Better controlled ,continue enelapril, hydralazine, hctz, and nifedipine acute grief reaction grieving over of . counseling support given. Hx CAD seen by Cardiology and recommended medical treatment,for stable CAD cont. ASA + statin, not on beta-blockers due to bradycardia DM2 with hypoglycemia Fluctuating blood sugars, will DC correction dose lispro and q.i.d. blood sugar monitoring, check hemoglobin A1c with next blood draw, continue metformin, at home was using glimepiride will hold for now due to episodes of borderline low blood sugars. hypothyroidism continue LT4 VTE ppx LMWH Dispo Awaiting guardianship
--- NOTE | 2020-12-22 13:08 | MHC.CM.PN ---
nurse animal care giver note electronic medical record reviewed along with case discussed with staff nurse and on multiple disciplainry rounds, jani azar is still working on investigating house repais and bank assessts, will check in whith her on friday , patient is calm , ambulatory in the [facility] ways , anxious still about paying her billls.
--- NOTE | 2020-12-22 15:04 | MHC.CARE ---
Pt was crying processing the of her and stress around dealing with things when she gets home. 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 Pt processed and appreciated the follow up to talk to someone. Pt feels very happy with the treatment she is receiving through the hospital. Pt reports she does not need any support with mental health resources at this time and reports she has been through a lot. This engineering writer spent some time with pt to help her process some of her feelings and assisted with defining goals and setting goals.
[2020-12-22 15:49] VITALS: BP 162/69; PULSE 85; RESP 20; TEMP 36.2; O2SAT 98
--- NOTE | 2020-12-22 16:17 | MHC.CM.PN ---
[facility] SPECIALIST NOTE ELECTRONIC MEDICAL RECORD REVIEWED ALONG WITH CASE DISCUSSEDMWITH STAFF NURSE AND MET WITH PATIENT . PATIENTED VOICED EXTREME FRUSTRATION TO ME AND THE STAFF THAT SHE DID NOT BELONG HERE IN THE [facility]LA SHE IS NOT SICK, SHE WANTS TO GO HOME , SHE ALSO REPORTED TO ME SHE CAN GO TO A HOTEL, SHE SPOKE WITH THE COURT APPOINTMENT CONSERVATOR BY PHONE, MICHAEL EDWARDS, michael informed me that she told her she could not go back to her home at this time in its present condition, and would be going to the bank to check on her accounts and would keep her informed and call her next week . this inofrmation was updated to physician advisor fernanda,
[2020-12-22 20:27] VITALS: BP 162/69; PULSE 85
[2020-12-22] MEDS: Atorvastatin Calcium 80 MG TABLET PO (20:27)
[2020-12-22] MEDS: Donepezil HCl 5 MG TABLET PO (20:27)
[2020-12-22 23:43] VITALS: BP 119/54; PULSE 68; RESP 18; TEMP 36.1; O2SAT 96
[2020-12-23] MEDS: Loperamide HCl 2 MG CAPSULE PO (00:35)
[2020-12-23 07:53] VITALS: BP 151/71; PULSE 62; RESP 20; TEMP 36.9; O2SAT 95
[2020-12-23 08:25] LABS: Glucose, Whole Blood 96 mg/dL (60-115)
[2020-12-23] MEDS: NIFEdipine ER 30 MG TAB.ER.24 60 MG PO (09:53)
[2020-12-23] MEDS: Enalapril Maleate 10 MG TABLET 20 MG PO ×2 (09:53→22:18)
[2020-12-23] MEDS: hydrALAZINE HCl 50 MG TABLET 100 MG PO ×3 (09:53→22:19)
[2020-12-23] MEDS: Enoxaparin Sodium 40 MG/0.4 ML SYRINGE SUBCUT (09:53)
[2020-12-23] MEDS: metFORMIN HCl 500 MG TABLET PO ×2 (09:53→17:57)
[2020-12-23 14:39] VITALS: BP 117/65; PULSE 79
[2020-12-23 15:05] VITALS: BP 110/54; PULSE 64; RESP 16; TEMP 36; O2SAT 97
--- NOTE | 2020-12-23 15:51 | HO.PM.IMPN ---
Subjective Subjective Date of Service: 12/23/20 Interval History: Patient had multiple episodes of diarrhea therefore feels tired this am denies abd pain no n/v no fever chills . ROS General no headache, no dizziness no fever chills. CVS no chest pain, no palpitation. Respiratory no cough no sob. Gastrointestinal no nausea no vomiting, no abdominal pain Physical Exam Vital Signs: Vital Signs: Last Vital Signs Temp 96.8 F 12/23/20 15:05 Pulse 64 12/23/20 15:05 Resp 16 12/23/20 15:05 BP 110/54 L 12/23/20 15:05 Pulse Ox 97 12/23/20 15:05 Body Mass Index 20.2 General resting in bed, no acute distress. Neck is supple no JVD. CVS regular rate rhythm, Respiratory lungs clear to auscultation, no respiratory distress, no wheeze, no rhonchi. Gastrointestinal abdomen soft, nontender, bowel sounds audible, no guarding , no rigidity. Extremities no edema. Neuro nonfocal , speech clear. Skin no rash Objective Data Current Medications Generic Name Dose Route Start Last Admin Trade Name Freq PRN Reason Stop Dose Admin Acetaminophen 650 mg 09/28/20 11:39 10/27/20 11:12 Acetaminophen 325 Mg Tablet PO 650 mg Q6H PRN Administration PAINFEV Atorvastatin Calcium 80 mg 10/04/20 21:00 12/22/20 20:27 Atorvastatin Calcium 80 Mg Tablet PO 80 mg BEDTIME RAGHAVENDRA Administration Donepezil HCl 5 mg 12/11/20 21:00 12/22/20 20:27 Donepezil Hcl 5 Mg Tablet PO 5 mg BEDTIME RAGHAVENDRA Administration Enalapril Maleate 20 mg 10/05/20 12:00 12/23/20 09:53 Enalapril Maleate 10 Mg Tablet PO 20 mg BID RAGHAVENDRA Administration Enoxaparin Sodium 40 mg 10/07/20 08:00 12/23/20 09:53 Enoxaparin Sodium 40 Mg/0.4 Ml Syringe SUBCUT 40 mg Q24H RAGHAVENDRA Administration Hydralazine HCl 100 mg 11/05/20 15:00 12/23/20 14:39 Hydralazine Hcl 50 Mg Tablet PO 100 mg TID RAGHAVENDRA Administration Protocol Hydrochlorothiazide 25 mg 11/16/20 09:00 12/23/20 09:54 Hydrochlorothiazide 25 Mg Tablet PO Not Given DAILY RAGHAVENDRA Protocol Hydroxyzine HCl 25 mg 09/25/20 19:19 12/05/20 09:34 Hydroxyzine Hcl 25 Mg Tablet PO 25 mg Q8H PRN Administration Restlessness Loperamide HCl 2 mg 10/11/20 08:21 12/23/20 00:35 Loperamide Hcl 2 Mg Capsule PO 2 mg Q6H PRN Administration Constipation Metformin HCl 500 mg 10/10/20 17:00 12/23/20 09:53 Metformin Hcl 500 Mg Tablet PO 500 mg BIDWM RAGHAVENDRA Administration Nifedipine 60 mg 11/28/20 09:00 12/23/20 09:53 Nifedipine Er 30 Mg Tab.Er.24 PO 60 mg DAILY RAGHAVENDRA Administration Protocol Trazodone HCl 25 mg 09/25/20 19:19 10/08/20 21:02 Trazodone Hcl 25 Mg Halftab PO 25 mg BEDTIME PRN Administration Insomnia Labs CBC & Chem 7: 11/25/20 05:48 12/21/20 10:01 Microbiology Microbiology Results: Microbiology 11/24/20 08:18 Stool Stool Culture - Final 09/21/20 Unknown Urine clean catch - Clean Catch Midstream Urine Culture - Final No growth. Assessment and Plan (1) Clostridioides difficile infection: Status: Acute (2) Dementia, vascular, mixed: Status: Acute (3) HTN (hypertension): Status: Acute (4) Neurocognitive disorder: Status: Acute (5) Communicating hydrocephalus: Status: Acute Assessment and Plan: cognitive impairment Evaluated by psychiatry does need guardianship , had hearing in court 12/14 to assess financial assessment, will have another court date for actual guardianship. Diarrhea Patient had diarrhea overnight now improved, will send stool for C diff if noted to have recurrent diarrhea due to recent bout of C diff infection. Resolved/Stable issues C. diff infection No further episodes of diarrhea,s/p vancomycin treatment for 14 days HTN Better controlled ,continue enelapril, hydralazine, hctz, and nifedipine acute grief reaction grieving over of . counseling support given. Hx CAD seen by Cardiology and recommended medical treatment,for stable CAD cont. ASA + statin, not on beta-blockers due to bradycardia DM2 with hypoglycemia Fluctuating blood sugars, will DC correction dose lispro and q.i.d. blood sugar monitoring, check hemoglobin A1c with next blood draw, continue metformin, at home was using glimepiride will hold for now due to episodes of borderline low blood sugars. hypothyroidism continue LT4 VTE ppx LMWH Dispo Awaiting guardianship
[2020-12-23 16:53] LABS: Glucose, Whole Blood 145 mg/dL (60-115)
[2020-12-23 20:15] LABS: Glucose, Whole Blood 128 mg/dL (60-115)
[2020-12-23 22:18] VITALS: BP 110/54; PULSE 64
[2020-12-23] MEDS: Atorvastatin Calcium 80 MG TABLET PO (22:18)
[2020-12-23 22:19] VITALS: BP 110/54; PULSE 64
[2020-12-23] MEDS: Donepezil HCl 5 MG TABLET PO ×2 (22:19→22:20)
[2020-12-23 23:37] VITALS: BP 129/60; PULSE 60; RESP 18; TEMP 36.2; O2SAT 98
[2020-12-23 23:48] LABS: Glucose, Whole Blood 150 mg/dL (60-115)
[2020-12-24 07:19] LABS: Glucose, Whole Blood 86 mg/dL (60-115)
[2020-12-24 08:00] VITALS: BP 137/69; PULSE 68; TEMP 36.2; O2SAT 99
[2020-12-24] MEDS: NIFEdipine ER 30 MG TAB.ER.24 60 MG PO (09:17)
[2020-12-24] MEDS: Enoxaparin Sodium 40 MG/0.4 ML SYRINGE SUBCUT (09:17)
[2020-12-24] MEDS: metFORMIN HCl 500 MG TABLET PO ×2 (09:17→17:34)
[2020-12-24] MEDS: hydrALAZINE HCl 50 MG TABLET 100 MG PO ×3 (09:18→21:56)
[2020-12-24] MEDS: Enalapril Maleate 10 MG TABLET 20 MG PO ×2 (09:18→21:56)
[2020-12-24] MEDS: hydroCHLOROthiazide 25 MG TABLET PO (09:18)
[2020-12-24 11:11] LABS: Glucose, Whole Blood 225 mg/dL (60-115)
--- NOTE | 2020-12-24 13:23 | HO.PM.IMPN ---
Subjective Subjective Date of Service: 12/24/20 Interval History: no acute issues overnight,diarrhea resolved. ROS General no headache, no dizziness no fever chills. CVS no chest pain, no palpitation. Respiratory no cough, no sob. Gastrointestinal no nausea, no vomiting, no abdominal pain Physical Exam Vital Signs: Vital Signs: Last Vital Signs Temp 97.2 F 12/24/20 08:00 Pulse 68 12/24/20 08:00 Resp 18 12/23/20 23:37 BP 137/69 12/24/20 08:00 Pulse Ox 99 12/24/20 08:00 Body Mass Index 20.2 eneral resting in bed, no acute distress. Neck is supple no JVD. CVS regular rate rhythm, Respiratory lungs clear to auscultation, no respiratory distress, no wheeze, no rhonchi. Gastrointestinal abdomen soft, nontender, bowel sounds audible Extremities no edema. Neuro nonfocal , speech clear. Skin no rash Objective Data Current Medications Generic Name Dose Route Start Last Admin Trade Name Freq PRN Reason Stop Dose Admin Acetaminophen 650 mg 09/28/20 11:39 10/27/20 11:12 Acetaminophen 325 Mg Tablet PO 650 mg Q6H PRN Administration PAINFEV Atorvastatin Calcium 80 mg 10/04/20 21:00 12/23/20 22:18 Atorvastatin Calcium 80 Mg Tablet PO 80 mg BEDTIME RAGHAVENDRA Administration Donepezil HCl 5 mg 12/11/20 21:00 12/23/20 22:20 Donepezil Hcl 5 Mg Tablet PO 5 mg BEDTIME RAGHAVENDRA Administration Enalapril Maleate 20 mg 10/05/20 12:00 12/24/20 09:18 Enalapril Maleate 10 Mg Tablet PO 20 mg BID RAGHAVENDRA Administration Enoxaparin Sodium 40 mg 10/07/20 08:00 12/24/20 09:17 Enoxaparin Sodium 40 Mg/0.4 Ml Syringe SUBCUT 40 mg Q24H RAGHAVENDRA Administration Hydralazine HCl 100 mg 11/05/20 15:00 12/24/20 09:18 Hydralazine Hcl 50 Mg Tablet PO 100 mg TID RAGHAVENDRA Administration Protocol Hydrochlorothiazide 25 mg 11/16/20 09:00 12/24/20 09:18 Hydrochlorothiazide 25 Mg Tablet PO 25 mg DAILY RAGHAVENDRA Administration Protocol Hydroxyzine HCl 25 mg 09/25/20 19:19 12/05/20 09:34 Hydroxyzine Hcl 25 Mg Tablet PO 25 mg Q8H PRN Administration Restlessness Loperamide HCl 2 mg 10/11/20 08:21 12/23/20 00:35 Loperamide Hcl 2 Mg Capsule PO 2 mg Q6H PRN Administration Constipation Metformin HCl 500 mg 10/10/20 17:00 12/24/20 09:17 Metformin Hcl 500 Mg Tablet PO 500 mg BIDWM RAGHAVENDRA Administration Nifedipine 60 mg 11/28/20 09:00 12/24/20 09:17 Nifedipine Er 30 Mg Tab.Er.24 PO 60 mg DAILY RAGHAVENDRA Administration Protocol Trazodone HCl 25 mg 09/25/20 19:19 10/08/20 21:02 Trazodone Hcl 25 Mg Halftab PO 25 mg BEDTIME PRN Administration Insomnia Labs CBC & Chem 7: 11/25/20 05:48 12/21/20 10:01 Microbiology Microbiology Results: Microbiology 11/24/20 08:18 Stool Stool Culture - Final 09/21/20 Unknown Urine clean catch - Clean Catch Midstream Urine Culture - Final No growth. Assessment and Plan (1) Dementia, vascular, mixed: Status: Acute (2) HTN (hypertension): Status: Acute (3) Communicating hydrocephalus: Status: Acute (4) Neurocognitive disorder: Status: Acute (5) Atherosclerotic cardiovascular disease: Problem details: Status post stenting Status: Acute Assessment and Plan: Cognitive impairment Evaluated by psychiatry does need guardianship , had hearing in court 12/14 to assess financial assessment, will have another court date for actual guardianship. Diarrhea Resolved,no episodes since yesterday am.. Resolved/Stable issues C. diff infection No further episodes of diarrhea,s/p vancomycin treatment for 14 days HTN Better controlled ,continue enelapril, hydralazine, hctz, and nifedipine acute grief reaction grieving over of . counseling support given. Hx CAD seen by Cardiology and recommended medical treatment,for stable CAD cont. ASA + statin, not on beta-blockers due to bradycardia DM2 with hypoglycemia Fluctuating blood sugars, will DC correction dose lispro and q.i.d. blood sugar monitoring, check hemoglobin A1c with next blood draw, continue metformin, at home was using glimepiride will hold for now due to episodes of borderline low blood sugars. hypothyroidism continue LT4 VTE ppx LMWH Dispo Awaiting guardianship
[2020-12-24 14:35] VITALS: BP 165/68; PULSE 74
[2020-12-24 15:16] VITALS: BP 154/88; PULSE 74; RESP 16; TEMP 36.4; O2SAT 96
[2020-12-24 16:31] LABS: Glucose, Whole Blood 81 mg/dL (60-115)
[2020-12-24] MEDS: Atorvastatin Calcium 80 MG TABLET PO (21:55)
[2020-12-24 21:56] VITALS: BP 136/66; PULSE 62
[2020-12-24] MEDS: Donepezil HCl 5 MG TABLET PO (21:56)
[2020-12-24 23:19] VITALS: BP 147/54; PULSE 61; RESP 20; TEMP 36.3; O2SAT 96
[2020-12-25] VITALS (8 sets, daily range): BP systolic 128–144; BP diastolic 40–66; PULSE 54–65; RESP 19–20; TEMP 36.4–36.8; O2SAT 95–98
[2020-12-25] MEDS: hydrALAZINE HCl 50 MG TABLET 100 MG PO ×3 (08:18→20:25)
[2020-12-25] MEDS: hydroCHLOROthiazide 25 MG TABLET PO (08:18)
[2020-12-25] MEDS: NIFEdipine ER 30 MG TAB.ER.24 60 MG PO (08:18)
[2020-12-25] MEDS: Enalapril Maleate 10 MG TABLET 20 MG PO ×2 (08:19→20:24)
[2020-12-25] MEDS: metFORMIN HCl 500 MG TABLET PO ×2 (08:19→16:03)
[2020-12-25] MEDS: Enoxaparin Sodium 40 MG/0.4 ML SYRINGE SUBCUT (08:19)
[2020-12-25 11:32] LABS: Glucose, Whole Blood 87 mg/dL (60-115)
--- NOTE | 2020-12-25 15:52 | HO.PM.IMPN ---
Subjective Subjective Date of Service: 12/25/20 Interval History: no diarrhea no complaints except that she wants to go home Physical Exam Vital Signs: Vital Signs: Last Vital Signs Temp 97.7 F 12/25/20 07:46 Pulse 54 12/25/20 08:19 Resp 19 12/25/20 07:46 BP 144/66 H 12/25/20 08:19 Pulse Ox 95 12/25/20 07:46 Body Mass Index 20.2 gen: NAD lungs: normal respiratory effort psych: impaired insight Objective Data Current Medications Generic Name Dose Route Start Last Admin Trade Name Freq PRN Reason Stop Dose Admin Acetaminophen 650 mg 09/28/20 11:39 10/27/20 11:12 Acetaminophen 325 Mg Tablet PO 650 mg Q6H PRN Administration PAINFEV Atorvastatin Calcium 80 mg 10/04/20 21:00 12/24/20 21:55 Atorvastatin Calcium 80 Mg Tablet PO 80 mg BEDTIME RAGHAVENDRA Administration Donepezil HCl 5 mg 12/11/20 21:00 12/24/20 21:56 Donepezil Hcl 5 Mg Tablet PO 5 mg BEDTIME RAGHAVENDRA Administration Enalapril Maleate 20 mg 10/05/20 12:00 12/25/20 08:19 Enalapril Maleate 10 Mg Tablet PO 20 mg BID RAGHAVENDRA Administration Enoxaparin Sodium 40 mg 10/07/20 08:00 12/25/20 08:19 Enoxaparin Sodium 40 Mg/0.4 Ml Syringe SUBCUT 40 mg Q24H RAGHAVENDRA Administration Hydralazine HCl 100 mg 11/05/20 15:00 12/25/20 08:18 Hydralazine Hcl 50 Mg Tablet PO 100 mg TID RAGHAVENDRA Administration Protocol Hydrochlorothiazide 25 mg 11/16/20 09:00 12/25/20 08:18 Hydrochlorothiazide 25 Mg Tablet PO 25 mg DAILY RAGHAVENDRA Administration Protocol Loperamide HCl 2 mg 10/11/20 08:21 12/23/20 00:35 Loperamide Hcl 2 Mg Capsule PO 2 mg Q6H PRN Administration Constipation Metformin HCl 500 mg 10/10/20 17:00 12/25/20 08:19 Metformin Hcl 500 Mg Tablet PO 500 mg BIDWM RAGHAVENDRA Administration Nifedipine 60 mg 11/28/20 09:00 12/25/20 08:18 Nifedipine Er 30 Mg Tab.Er.24 PO 60 mg DAILY RAGHAVENDRA Administration Protocol Labs CBC & Chem 7: 04/10/21 05:48 12/21/20 10:01 Microbiology Microbiology Results: Microbiology 11/24/20 08:18 Stool Stool Culture - Final 09/21/20 Unknown Urine clean catch - Clean Catch Midstream Urine Culture - Final No growth. Assessment and Plan (1) Dementia, vascular, mixed: Status: Acute (2) HTN (hypertension): Status: Acute (3) Communicating hydrocephalus: Status: Acute (4) Neurocognitive disorder: Status: Acute (5) Atherosclerotic cardiovascular disease: Problem details: Status post stenting Status: Acute Assessment and Plan: hospital [id number] 85yo F with HTN, HLD, DM2, hypothyroidism, CAD s/p PCI initially admitted with falls, elevated troponin; disposition complicated by cognitive impairment requiring guardianship # cognitive impairment - evaluated by psychiatry does need guardianship , had hearing in court 12/14 to assess financial assessment, will have another court date for actual guardianship. # C diff colitis - resolved, s/p 14d of vancomycin treatment # HT - continue enalapril, HCTZ, nifedipine, hydralazine # acute grief reaction - due to passing of . met [place] [facility] # elevated Tn-I with underlying CAD - likely due to HTN + ABELARDO (resolved), seen by Cardiology and recommended medical treatment as stable CAD with ASA + statin; HR too low for B-derrek # DM2 complicated by hypoglycemia - d/c'ed lispro + glimepride; continue MTF alone; check A1c # hypothyroidism - continue LT4 # VTE ppx - continue LMWH # dispo - awaiting guardianship
[2020-12-25] MEDS: Donepezil HCl 5 MG TABLET PO (20:25)
[2020-12-25] MEDS: Atorvastatin Calcium 80 MG TABLET PO (20:25)
[2020-12-26] VITALS (7 sets, daily range): BP systolic 118–147; BP diastolic 44–61; PULSE 56–70; RESP 20; TEMP 36.4–36.7; O2SAT 95–97
[2020-12-26 06:47] LABS: Estimated Average Glucose 131 mg/dL; Hemoglobin A1c % 6.2 %
[2020-12-26 06:55] LABS: Anion Gap 11 (12-20); Blood Urea Nitrogen 34 mg/dL (9-16); Calcium 9.2 mg/dL (8.4-10.2); Carbon Dioxide 27 mmol/L (22-29); Chloride 107 mmol/L (96-108); Estimated Glomerular Filt Rate 45; Glucose Random 150 mg/dL (60-115); Potassium 4.4 mmol/L (3.3-5.1); Sodium 141 mmol/L (135-145)
[2020-12-26 07:38] LABS: Glucose, Whole Blood 144 mg/dL (60-115)
[2020-12-26] MEDS: metFORMIN HCl 500 MG TABLET PO ×2 (09:12→16:06)
[2020-12-26] MEDS: Enalapril Maleate 10 MG TABLET 20 MG PO ×2 (09:12→20:42)
[2020-12-26] MEDS: hydrALAZINE HCl 50 MG TABLET 100 MG PO ×3 (09:12→20:43)
[2020-12-26] MEDS: Enoxaparin Sodium 40 MG/0.4 ML SYRINGE SUBCUT (09:12)
[2020-12-26] MEDS: hydroCHLOROthiazide 25 MG TABLET PO (09:12)
[2020-12-26] MEDS: NIFEdipine ER 30 MG TAB.ER.24 60 MG PO (09:12)
--- NOTE | 2020-12-26 14:53 | MHC.CM.PN ---
NURSE CARE ANDREWS NOTE ELECTRONIC MEDICAL RECORD REVIEWED ALONG WITH CASE DISCUSSED WITH HOSPITALIST T/ C FORM ROBERT DIA FROM [facility] SHE REPORTED SHE WILL BE COMING IN TO SEE PATIENT TOMORROW LATE MORNING, NURSE PIPE ORGAN MECHANIC TO CONTINUE TO FOLLOW
--- NOTE | 2020-12-26 16:08 | HO.PM.IMPN ---
Subjective Subjective Date of Service: 12/26/20 Interval History: no new events Physical Exam Vital Signs: Vital Signs: Last Vital Signs Temp 98.1 F 12/26/20 15:37 Pulse 66 12/26/20 16:06 Resp 20 12/26/20 15:37 BP 147/58 H 12/26/20 16:06 Pulse Ox 97 12/26/20 15:37 Body Mass Index 20.2 gen: NAD lungs: normal respiratory effort psych: impaired insight Objective Data Current Medications Generic Name Dose Route Start Last Admin Trade Name Freq PRN Reason Stop Dose Admin Acetaminophen 650 mg 09/28/20 11:39 10/27/20 11:12 Acetaminophen 325 Mg Tablet PO 650 mg Q6H PRN Administration PAINFEV Atorvastatin Calcium 80 mg 10/04/20 21:00 12/25/20 20:25 Atorvastatin Calcium 80 Mg Tablet PO 80 mg BEDTIME RAGHAVENDRA Administration Donepezil HCl 5 mg 12/11/20 21:00 12/25/20 20:25 Donepezil Hcl 5 Mg Tablet PO 5 mg BEDTIME RAGHAVENDRA Administration Enalapril Maleate 20 mg 10/05/20 12:00 12/26/20 09:12 Enalapril Maleate 10 Mg Tablet PO 20 mg BID RAGHAVENDRA Administration Enoxaparin Sodium 40 mg 10/07/20 08:00 12/26/20 09:12 Enoxaparin Sodium 40 Mg/0.4 Ml Syringe SUBCUT 40 mg Q24H RAGHAVENDRA Administration Hydralazine HCl 100 mg 11/05/20 15:00 12/26/20 16:06 Hydralazine Hcl 50 Mg Tablet PO 100 mg TID RAGHAVENDRA Administration Protocol Hydrochlorothiazide 25 mg 11/16/20 09:00 12/26/20 09:12 Hydrochlorothiazide 25 Mg Tablet PO 25 mg DAILY RAGHAVENDRA Administration Protocol Loperamide HCl 2 mg 10/11/20 08:21 12/23/20 00:35 Loperamide Hcl 2 Mg Capsule PO 2 mg Q6H PRN Administration Constipation Metformin HCl 500 mg 10/10/20 17:00 12/26/20 16:06 Metformin Hcl 500 Mg Tablet PO 500 mg BIDWM RAGHAVENDRA Administration Nifedipine 60 mg 11/28/20 09:00 12/26/20 09:12 Nifedipine Er 30 Mg Tab.Er.24 PO 60 mg DAILY RAGHAVENDRA Administration Protocol Labs CBC & Chem 7: 11/25/20 05:48 12/26/20 05:31 Labs: Laboratory Results - last 24 hr 12/26/20 12/26/20 12/26/20 05:31 05:31 07:13 Sodium 141 Potassium 4.4 Chloride 107 Carbon Dioxide 27 Anion Gap 11 L BUN 34 H Creatinine 1.16 Estim Creat Clear Calc 30.0 Estimated GFR 45 POC Glucose 144 H Random Glucose 150 H D Estimat Average Glucose 131 Hemoglobin A1c % 6.2 Calcium 9.2 Microbiology Microbiology Results: Microbiology 11/24/20 08:18 Stool Stool Culture - Final 09/21/20 Unknown Urine clean catch - Clean Catch Midstream Urine Culture - Final No growth. Assessment and Plan (1) Dementia, vascular, mixed: Status: Acute (2) HTN (hypertension): Status: Acute (3) Communicating hydrocephalus: Status: Acute (4) Neurocognitive disorder: Status: Acute (5) Atherosclerotic cardiovascular disease: Problem details: Status post stenting Status: Acute Assessment and Plan: hospital d#98 85yo F with HTN, HLD, DM2, hypothyroidism, CAD s/p PCI initially admitted with falls, elevated troponin; disposition complicated by cognitive impairment requiring guardianship # cognitive impairment - evaluated by psychiatry does need guardianship , had hearing in court 12/14 to assess financial assessment, will have another court date for actual guardianship. # C diff colitis - resolved, s/p 14d of vancomycin treatment # HT - continue enalapril, HCTZ, nifedipine, hydralazine # acute grief reaction - due to passing of . met with CARE team # elevated Tn-I with underlying CAD - likely due to HTN + ABELARDO (resolved), seen by Cardiology and recommended medical treatment as stable CAD with ASA + statin; HR too low for B-derrek # DM2 complicated by hypoglycemia - d/c'ed lispro + glimepride; continue MTF alone; A1c only 6.2 # hypothyroidism - continue LT4 # VTE ppx - continue LMWH # dispo - awaiting guardianship, discussed latest social situation with CM. Basically, the pt's house is not inhabitable [raw sewage backing up into house] and pt does not realize this
[2020-12-26] MEDS: Atorvastatin Calcium 80 MG TABLET PO (20:43)
[2020-12-26] MEDS: Donepezil HCl 5 MG TABLET PO (20:43)
[2020-12-27 08:00] VITALS: BP 133/63; PULSE 53; RESP 18; TEMP 36.5; O2SAT 97
[2020-12-27 08:19] LABS: Glucose, Whole Blood 102 mg/dL (60-115)
[2020-12-27] MEDS: Enoxaparin Sodium 40 MG/0.4 ML SYRINGE SUBCUT (10:37)
[2020-12-27] MEDS: hydroCHLOROthiazide 25 MG TABLET PO (10:38)
[2020-12-27] MEDS: Enalapril Maleate 10 MG TABLET 20 MG PO ×2 (10:38→20:01)
[2020-12-27] MEDS: metFORMIN HCl 500 MG TABLET PO ×2 (10:39→17:49)
[2020-12-27] MEDS: NIFEdipine ER 30 MG TAB.ER.24 60 MG PO (10:39)
[2020-12-27] MEDS: hydrALAZINE HCl 50 MG TABLET 100 MG PO ×3 (10:39→20:02)
--- NOTE | 2020-12-27 12:02 | HO.PM.IMPN ---
Subjective Subjective Date of Service: 12/27/20 Interval History: no complaints Cardiovascular Cardiovascular: Reports no additional cardiovascular complaints Respiratory Respiratory: Reports no additional respiratory complaints Physical Exam Vital Signs: Vital Signs: Last Vital Signs Temp 97.7 F 12/27/20 08:00 Pulse 53 12/27/20 08:00 Resp 18 12/27/20 08:00 BP 133/63 12/27/20 08:00 Pulse Ox 97 12/27/20 08:00 Body Mass Index 20.2 gen: NAD lungs: normal respiratory effort psych: impaired insight Objective Data Current Medications Generic Name Dose Route Start Last Admin Trade Name Freq PRN Reason Stop Dose Admin Atorvastatin Calcium 80 mg 10/04/20 21:00 12/26/20 20:43 Atorvastatin Calcium 80 Mg Tablet PO 80 mg BEDTIME RAGHAVENDRA Administration Donepezil HCl 5 mg 12/11/20 21:00 12/26/20 20:43 Donepezil Hcl 5 Mg Tablet PO 5 mg BEDTIME RAGHAVENDRA Administration Enalapril Maleate 20 mg 10/05/20 12:00 12/27/20 10:38 Enalapril Maleate 10 Mg Tablet PO 20 mg BID RAGHAVENDRA Administration Enoxaparin Sodium 40 mg 10/07/20 08:00 12/27/20 10:37 Enoxaparin Sodium 40 Mg/0.4 Ml Syringe SUBCUT 40 mg Q24H RAGHAVENDRA Administration Hydralazine HCl 100 mg 11/05/20 15:00 12/27/20 10:39 Hydralazine Hcl 50 Mg Tablet PO 100 mg TID RAGHAVENDRA Administration Protocol Hydrochlorothiazide 25 mg 11/16/20 09:00 12/27/20 10:38 Hydrochlorothiazide 25 Mg Tablet PO 25 mg DAILY RAGHAVENDRA Administration Protocol Loperamide HCl 2 mg 10/11/20 08:21 12/23/20 00:35 Loperamide Hcl 2 Mg Capsule PO 2 mg Q6H PRN Administration Constipation Metformin HCl 500 mg 10/10/20 17:00 12/27/20 10:39 Metformin Hcl 500 Mg Tablet PO 500 mg BIDWM RAGHAVENDRA Administration Nifedipine 60 mg 11/28/20 09:00 12/27/20 10:39 Nifedipine Er 30 Mg Tab.Er.24 PO 60 mg DAILY RAGHAVENDRA Administration Protocol Labs CBC & Chem 7: 11/25/20 05:48 12/26/20 05:31 Microbiology Microbiology Results: Microbiology 11/24/20 08:18 Stool Stool Culture - Final 09/21/20 Unknown Urine clean catch - Clean Catch Midstream Urine Culture - Final No growth. Assessment and Plan (1) Dementia, vascular, mixed: Status: Acute (2) HTN (hypertension): Status: Acute (3) Communicating hydrocephalus: Status: Acute (4) Neurocognitive disorder: Status: Acute (5) Atherosclerotic cardiovascular disease: Problem details: Status post stenting Status: Acute Assessment and Plan: hospital d#98 85yo F with HTN, HLD, DM2, hypothyroidism, CAD s/p PCI initially admitted with falls, elevated troponin; disposition complicated by cognitive impairment requiring guardianship cognitive impairment - evaluated by psychiatry does need guardianship , had hearing in court 12/14 to assess financial assessment, will have another court date for actual guardianship. C diff colitis resolved, s/p 14d of vancomycin treatment HTN enalapril, HCTZ, nifedipine, hydralazine acute grief reaction - due to passing of . met with CARE team elevated Tn-I with underlying CAD likely due to HTN + ABELARDO (resolved), seen by Cardiology and recommended medical treatment as stable CAD with ASA + statin; HR too low for B-derrek DM2 complicated by hypoglycemia d/c'ed lispro + glimepride; continue MTF alone; A1c only 6.2 hypothyroidism continue LT4 VTE ppx - continue LMWH # dispo - awaiting guardianship, discussed latest social situation with CM. Basically, the pt's house is not inhabitable [raw sewage backing up into house] and pt does not realize this
[2020-12-27 15:48] VITALS: BP 165/68; PULSE 65; RESP 18; TEMP 36.3; O2SAT 98
[2020-12-27 20:01] VITALS: BP 165/68; PULSE 65
[2020-12-27] MEDS: Atorvastatin Calcium 80 MG TABLET PO (20:01)
[2020-12-27 20:02] VITALS: BP 165/68; PULSE 65
[2020-12-27] MEDS: Donepezil HCl 5 MG TABLET PO (20:02)
--- NOTE | 2020-12-27 22:41 | PC.NURSE ---
P patient upset called RN into her room stating she does not agree with the decision made about need for guardianship I reassured patient ,will report to 11-7 RN to question in am if psych reevaluation is possible for this patient E will monitor
[2020-12-27 23:45] VITALS: BP 125/60; PULSE 67; RESP 20; TEMP 36.4; O2SAT 96
[2020-12-28 07:45] VITALS: BP 124/60; PULSE 50; RESP 19; TEMP 36.9; O2SAT 96
[2020-12-28 08:10] LABS: Glucose, Whole Blood 100 mg/dL (60-115)
--- NOTE | 2020-12-28 09:00 | HO.PM.IMPN ---
Subjective Subjective Date of Service: 12/28/20 Interval History: no complaints Cardiovascular Cardiovascular: Reports no additional cardiovascular complaints Genitourinary Genitourinary: Reports no additional female genitourinary complaints Physical Exam Vital Signs: Vital Signs: Last Vital Signs Temp 98.5 F 12/28/20 07:45 Pulse 50 12/28/20 07:45 Resp 19 12/28/20 07:45 BP 124/60 12/28/20 07:45 Pulse Ox 96 12/28/20 07:45 Body Mass Index 20.2 gen: NAD lungs: normal respiratory effort psych: impaired insight Objective Data Current Medications Generic Name Dose Route Start Last Admin Trade Name Freq PRN Reason Stop Dose Admin Atorvastatin Calcium 80 mg 10/04/20 21:00 12/27/20 20:01 Atorvastatin Calcium 80 Mg Tablet PO 80 mg BEDTIME RAGHAVENDRA Administration Donepezil HCl 5 mg 12/11/20 21:00 12/27/20 20:02 Donepezil Hcl 5 Mg Tablet PO 5 mg BEDTIME RAGHVAENDRA Administration Enalapril Maleate 20 mg 10/05/20 12:00 12/27/20 20:01 Enalapril Maleate 10 Mg Tablet PO 20 mg BID RAGHAVENDRA Administration Enoxaparin Sodium 40 mg 10/07/20 08:00 12/27/20 10:37 Enoxaparin Sodium 40 Mg/0.4 Ml Syringe SUBCUT 40 mg Q24H RAGHAVENDRA Administration Hydralazine HCl 100 mg 11/05/20 15:00 12/27/20 20:02 Hydralazine Hcl 50 Mg Tablet PO 100 mg TID RAGHAVENDRA Administration Protocol Hydrochlorothiazide 25 mg 11/16/20 09:00 12/27/20 10:38 Hydrochlorothiazide 25 Mg Tablet PO 25 mg DAILY RAGHAVENDRA Administration Protocol Loperamide HCl 2 mg 10/11/20 08:21 12/23/20 00:35 Loperamide Hcl 2 Mg Capsule PO 2 mg Q6H PRN Administration Constipation Metformin HCl 500 mg 10/10/20 17:00 12/27/20 17:49 Metformin Hcl 500 Mg Tablet PO 500 mg BIDWM RAGHAVENDRA Administration Nifedipine 60 mg 11/28/20 09:00 12/27/20 10:39 Nifedipine Er 30 Mg Tab.Er.24 PO 60 mg DAILY RAGHAVENDRA Administration Protocol Labs CBC & Chem 7: 11/25/20 05:48 12/26/20 05:31 Microbiology Microbiology Results: Microbiology 11/24/20 08:18 Stool Stool Culture - Final 09/21/20 Unknown Urine clean catch - Clean Catch Midstream Urine Culture - Final No growth. Assessment and Plan (1) Dementia, vascular, mixed: Status: Acute (2) HTN (hypertension): Status: Acute (3) Communicating hydrocephalus: Status: Acute (4) Neurocognitive disorder: Status: Acute (5) Atherosclerotic cardiovascular disease: Problem details: Status post stenting Status: Acute Assessment and Plan: 85yo F with HTN, HLD, DM2, hypothyroidism, CAD s/p PCI initially admitted with falls, elevated troponin; disposition complicated by cognitive impairment requiring guardianship stable cognitive impairment - evaluated by psychiatry does need guardianship , had hearing in court 12/14 to assess financial assessment, will have another court date for actual guardianship. C diff colitis resolved, s/p 14d of vancomycin treatment HTN enalapril, HCTZ, nifedipine, hydralazine acute grief reaction - due to passing of . met with CARE team elevated Tn-I with underlying CAD likely due to HTN + ABELARDO (resolved), seen by Cardiology and recommended medical treatment as stable CAD with ASA + statin; HR too low for B-derrek DM2 complicated by hypoglycemia d/c'ed lispro + glimepride; continue MTF alone; A1c only 6.2 hypothyroidism continue LT4 VTE ppx - continue LMWH # dispo - awaiting guardianship, discussed latest social situation with CM. Basically, the pt's house is not inhabitable [raw sewage backing up into house] and pt does not realize this
[2020-12-28] MEDS: Enalapril Maleate 10 MG TABLET 20 MG PO ×2 (09:49→19:59)
[2020-12-28] MEDS: hydroCHLOROthiazide 25 MG TABLET PO (09:49)
[2020-12-28] MEDS: metFORMIN HCl 500 MG TABLET PO ×2 (09:49→17:44)
[2020-12-28] MEDS: NIFEdipine ER 30 MG TAB.ER.24 60 MG PO (09:49)
[2020-12-28] MEDS: Enoxaparin Sodium 40 MG/0.4 ML SYRINGE SUBCUT (09:49)
[2020-12-28] MEDS: hydrALAZINE HCl 50 MG TABLET 100 MG PO ×3 (09:49→19:59)
--- NOTE | 2020-12-28 13:37 | MHC.CM.PN ---
nurse child care teacher note electronic medical record reviewed along with case discussed with staff nurse,i was asked by staff to go and see patient , she voiced frustrations about being in the hospital and if being in good health , she is concerned about what the conservator is doing in her house and her land property. and what right does she have,she re[orted she would be calling other peoplke to get this settled community association manager came to ask questions and discuss the case, i notified him that i would also be discussing this case with the manager rn case (call was made) child care teacher to continue ot vinayak for patient support and communication
[2020-12-28 15:00] VITALS: BMI 19.5
[2020-12-28 15:32] VITALS: BP 178/77; PULSE 72; RESP 16; TEMP 36.1; O2SAT 97
[2020-12-28 15:47] VITALS: BP 175/79; PULSE 68
--- NOTE | 2020-12-28 15:49 | PC.NURSE ---
p patient upset about her social situation,spoke with case management ,BP elevated 178/77 pulse 72 I reassured patient,offered snack,scheduled Hydralazine administered E will monitor
[2020-12-28 19:58] VITALS: BP 136/65; PULSE 90
[2020-12-28 19:59] VITALS: BP 136/65; PULSE 90
[2020-12-28] MEDS: Atorvastatin Calcium 80 MG TABLET PO (19:59)
[2020-12-28] MEDS: Donepezil HCl 5 MG TABLET PO (19:59)
[2020-12-28 23:44] VITALS: BP 121/63; PULSE 77; RESP 16; TEMP 36.3; O2SAT 97
[2020-12-29] VITALS (7 sets, daily range): BP systolic 106–159; BP diastolic 53–76; PULSE 63–88; RESP 16–18; TEMP 36.3–36.4; O2SAT 97–98
[2020-12-29] MEDS: Loperamide HCl 2 MG CAPSULE PO (04:05)
[2020-12-29] MEDS: Enoxaparin Sodium 40 MG/0.4 ML SYRINGE SUBCUT (08:06)
[2020-12-29] MEDS: metFORMIN HCl 500 MG TABLET PO ×2 (08:09→16:58)
[2020-12-29 08:10] LABS: Glucose, Whole Blood 119 mg/dL (60-115)
--- NOTE | 2020-12-29 09:25 | HO.PM.IMPN ---
Subjective Subjective Date of Service: 12/29/20 Interval History: no complaints Cardiovascular Cardiovascular: Reports no additional cardiovascular complaints Respiratory Respiratory: Reports no additional respiratory complaints Physical Exam Vital Signs: Vital Signs: Last Vital Signs Temp 97.5 F 12/29/20 08:00 Pulse 63 12/29/20 08:00 Resp 17 12/29/20 08:00 BP 106/53 L 12/29/20 08:00 Pulse Ox 97 12/29/20 08:00 Body Mass Index 19.5 gen: NAD lungs: normal respiratory effort psych: impaired insight Objective Data Current Medications Generic Name Dose Route Start Last Admin Trade Name Freq PRN Reason Stop Dose Admin Atorvastatin Calcium 80 mg 10/04/20 21:00 12/28/20 19:59 Atorvastatin Calcium 80 Mg Tablet PO 80 mg BEDTIME RAGHAVENDRA Administration Donepezil HCl 5 mg 12/11/20 21:00 12/28/20 19:59 Donepezil Hcl 5 Mg Tablet PO 5 mg BEDTIME RAGHAVENDRA Administration Enalapril Maleate 20 mg 10/05/20 12:00 12/28/20 19:59 Enalapril Maleate 10 Mg Tablet PO 20 mg BID RAGHAVENDRA Administration Enoxaparin Sodium 40 mg 10/07/20 08:00 12/29/20 08:06 Enoxaparin Sodium 40 Mg/0.4 Ml Syringe SUBCUT 40 mg Q24H RAGHAVENDRA Administration Hydralazine HCl 100 mg 11/05/20 15:00 12/28/20 19:59 Hydralazine Hcl 50 Mg Tablet PO 100 mg TID RAGHAVENDRA Administration Protocol Hydrochlorothiazide 25 mg 11/16/20 09:00 12/28/20 09:49 Hydrochlorothiazide 25 Mg Tablet PO 25 mg DAILY RAGHAVENDRA Administration Protocol Loperamide HCl 2 mg 10/11/20 08:21 12/29/20 04:05 Loperamide Hcl 2 Mg Capsule PO 2 mg Q6H PRN Administration Constipation Metformin HCl 500 mg 10/10/20 17:00 12/29/20 08:09 Metformin Hcl 500 Mg Tablet PO 500 mg BIDWM RAGHAVENDRA Administration Nifedipine 60 mg 11/28/20 09:00 12/28/20 09:49 Nifedipine Er 30 Mg Tab.Er.24 PO 60 mg DAILY RAGHAVENDRA Administration Protocol Labs CBC & Chem 7: 11/25/20 05:48 12/26/20 05:31 Microbiology Microbiology Results: Microbiology 11/24/20 08:18 Stool Stool Culture - Final 09/21/20 Unknown Urine clean catch - Clean Catch Midstream Urine Culture - Final No growth. Assessment and Plan (1) Dementia, vascular, mixed: Status: Acute (2) HTN (hypertension): Status: Acute (3) Communicating hydrocephalus: Status: Acute (4) Neurocognitive disorder: Status: Acute (5) Atherosclerotic cardiovascular disease: Problem details: Status post stenting Status: Acute Assessment and Plan: 85yo F with HTN, HLD, DM2, hypothyroidism, CAD s/p PCI initially admitted with falls, elevated troponin; disposition complicated by cognitive impairment requiring guardianship no new issues cognitive impairment - evaluated by psychiatry does need guardianship , had hearing in court 12/14 to assess financial assessment, will have another court date for actual guardianship. C diff colitis resolved, s/p 14d of vancomycin treatment HTN enalapril, HCTZ, nifedipine, hydralazine acute grief reaction - due to passing of . met with CARE team elevated Tn-I with underlying CAD likely due to HTN + ABELARDO (resolved), seen by Cardiology and recommended medical treatment as stable CAD with ASA + statin; HR too low for B-derrek DM2 complicated by hypoglycemia d/c'ed lispro + glimepride; continue MTF alone; A1c only 6.2 hypothyroidism continue LT4 VTE ppx - continue LMWH # dispo - awaiting guardianship, discussed latest social situation with CM. Basically, the pt's house is not inhabitable [raw sewage backing up into house] and pt does not realize this
[2020-12-29] MEDS: hydroCHLOROthiazide 25 MG TABLET PO (09:46)
[2020-12-29] MEDS: Enalapril Maleate 10 MG TABLET 20 MG PO ×2 (09:47→20:15)
[2020-12-29] MEDS: hydrALAZINE HCl 50 MG TABLET 100 MG PO ×3 (09:47→20:15)
[2020-12-29] MEDS: NIFEdipine ER 30 MG TAB.ER.24 60 MG PO (09:48)
[2020-12-29 12:41] LABS: Glucose, Whole Blood 131 mg/dL (60-115)
[2020-12-29] MEDS: Atorvastatin Calcium 80 MG TABLET PO (20:16)
[2020-12-29] MEDS: Donepezil HCl 5 MG TABLET PO (20:17)
[2020-12-30 00:44] VITALS: BP 119/61; PULSE 63; RESP 16; TEMP 36.3; O2SAT 97
[2020-12-30 07:34] LABS: Glucose, Whole Blood 109 mg/dL (60-115)
[2020-12-30 08:00] VITALS: BP 159/72; PULSE 61; RESP 17; TEMP 36.7; O2SAT 98
[2020-12-30] MEDS: NIFEdipine ER 30 MG TAB.ER.24 60 MG PO (08:30)
[2020-12-30] MEDS: hydroCHLOROthiazide 25 MG TABLET PO (08:31)
[2020-12-30] MEDS: metFORMIN HCl 500 MG TABLET PO ×2 (08:31→16:27)
[2020-12-30] MEDS: Enalapril Maleate 10 MG TABLET 20 MG PO ×2 (08:31→20:34)
[2020-12-30] MEDS: hydrALAZINE HCl 50 MG TABLET 100 MG PO ×3 (08:31→20:34)
--- NOTE | 2020-12-30 09:22 | HO.PM.IMPN ---
Subjective Subjective Date of Service: 12/30/20 Interval History: no new complaints Cardiovascular Cardiovascular: Reports no additional cardiovascular complaints Respiratory Respiratory: Reports no additional respiratory complaints Physical Exam Vital Signs: Vital Signs: Last Vital Signs Temp 98.0 F 12/30/20 08:00 Pulse 61 12/30/20 08:00 Resp 17 12/30/20 08:00 BP 159/72 H 12/30/20 08:00 Pulse Ox 98 12/30/20 08:00 Body Mass Index 19.5 gen: NAD lungs: normal respiratory effort psych: impaired insight Objective Data Current Medications Generic Name Dose Route Start Last Admin Trade Name Freq PRN Reason Stop Dose Admin Atorvastatin Calcium 80 mg 10/04/20 21:00 12/29/20 20:16 Atorvastatin Calcium 80 Mg Tablet PO 80 mg BEDTIME RAGHAVENDRA Administration Donepezil HCl 5 mg 12/11/20 21:00 12/29/20 20:17 Donepezil Hcl 5 Mg Tablet PO 5 mg BEDTIME RAGHAVENDRA Administration Enalapril Maleate 20 mg 10/05/20 12:00 12/30/20 08:31 Enalapril Maleate 10 Mg Tablet PO 20 mg BID RAGHAVENDRA Administration Hydralazine HCl 100 mg 11/05/20 15:00 12/30/20 08:31 Hydralazine Hcl 50 Mg Tablet PO 100 mg TID RAGHAVENDRA Administration Protocol Hydrochlorothiazide 25 mg 11/16/20 09:00 12/30/20 08:31 Hydrochlorothiazide 25 Mg Tablet PO 25 mg DAILY RAGHAVENDRA Administration Protocol Loperamide HCl 2 mg 10/11/20 08:21 12/29/20 04:05 Loperamide Hcl 2 Mg Capsule PO 2 mg Q6H PRN Administration Constipation Metformin HCl 500 mg 10/10/20 17:00 12/30/20 08:31 Metformin Hcl 500 Mg Tablet PO 500 mg BIDWM RAGHAVENDRA Administration Nifedipine 60 mg 11/28/20 09:00 12/30/20 08:30 Nifedipine Er 30 Mg Tab.Er.24 PO 60 mg DAILY RAGHAVENDRA Administration Protocol Labs CBC & Chem 7: 11/25/20 05:48 12/26/20 05:31 Microbiology Microbiology Results: Microbiology 11/24/20 08:18 Stool Stool Culture - Final 09/21/20 Unknown Urine clean catch - Clean Catch Midstream Urine Culture - Final No growth. Assessment and Plan (1) Dementia, vascular, mixed: Status: Acute (2) HTN (hypertension): Status: Acute (3) Communicating hydrocephalus: Status: Acute (4) Neurocognitive disorder: Status: Acute (5) Atherosclerotic cardiovascular disease: Problem details: Status post stenting Status: Acute Assessment and Plan: 85yo F with HTN, HLD, DM2, hypothyroidism, CAD s/p PCI initially admitted with falls, elevated troponin; disposition complicated by cognitive impairment requiring guardianship cognitive impairment - evaluated by psychiatry does need guardianship , had hearing in court 12/14 to assess financial assessment, will have another court date for actual guardianship. C diff colitis resolved, s/p 14d of vancomycin treatment HTN enalapril, HCTZ, nifedipine, hydralazine acute grief reaction - due to passing of . met with CARE team elevated Tn-I with underlying CAD likely due to HTN + ABELARDO (resolved), seen by Cardiology and recommended medical treatment as stable CAD with ASA + statin; HR too low for B-derrek DM2 complicated by hypoglycemia d/c'ed lispro + glimepride; continue MTF alone; A1c only 6.2 hypothyroidism continue LT4 VTE ppx ambulating well multiple times per day, would consider low risk for VTE, now off lovenox # dispo - awaiting guardianship, discussed latest social situation with CM. Basically, the pt's house is not inhabitable [raw sewage backing up into house] and pt does not realize this
[2020-12-30 16:00] VITALS: BP 188/81; PULSE 86; RESP 18; TEMP 36.6; O2SAT 97
[2020-12-30 20:34] VITALS: BP 168/73; PULSE 77
[2020-12-30] MEDS: Donepezil HCl 5 MG TABLET PO (20:34)
[2020-12-30] MEDS: Atorvastatin Calcium 80 MG TABLET PO (20:34)
[2020-12-30 23:41] VITALS: BP 114/55; PULSE 63; RESP 16; TEMP 36.5; O2SAT 99
[2020-12-31] VITALS (7 sets, daily range): BP systolic 110–147; BP diastolic 58–76; PULSE 53–74; RESP 16–18; TEMP 36.2–37.2; O2SAT 98–99; BMI 20.2
[2020-12-31 07:38] LABS: Glucose, Whole Blood 177 mg/dL (60-115)
[2020-12-31] MEDS: hydrALAZINE HCl 50 MG TABLET 100 MG PO ×3 (08:10→20:33)
[2020-12-31] MEDS: Enalapril Maleate 10 MG TABLET 20 MG PO ×2 (08:10→20:32)
[2020-12-31] MEDS: NIFEdipine ER 30 MG TAB.ER.24 60 MG PO (08:10)
[2020-12-31] MEDS: metFORMIN HCl 500 MG TABLET PO ×2 (08:10→16:57)
[2020-12-31] MEDS: hydroCHLOROthiazide 25 MG TABLET PO (08:11)
--- NOTE | 2020-12-31 09:25 | HO.PM.IMPN ---
Subjective Subjective Date of Service: 12/31/20 Interval History: no complaints Cardiovascular Cardiovascular: Reports no additional cardiovascular complaints Respiratory Respiratory: Reports no additional respiratory complaints Physical Exam Vital Signs: Vital Signs: Last Vital Signs Temp 99.0 F 12/31/20 08:00 Pulse 53 12/31/20 08:00 Resp 18 12/31/20 08:00 BP 134/62 12/31/20 08:00 Pulse Ox 98 12/31/20 08:00 Body Mass Index 19.5 gen: NAD lungs: normal respiratory effort psych: impaired insight Objective Data Current Medications Generic Name Dose Route Start Last Admin Trade Name Freq PRN Reason Stop Dose Admin Atorvastatin Calcium 80 mg 10/04/20 21:00 12/30/20 20:34 Atorvastatin Calcium 80 Mg Tablet PO 80 mg BEDTIME RAGHAVENDRA Administration Donepezil HCl 5 mg 12/11/20 21:00 12/30/20 20:34 Donepezil Hcl 5 Mg Tablet PO 5 mg BEDTIME RAGHAVENDRA Administration Enalapril Maleate 20 mg 10/05/20 12:00 12/31/20 08:10 Enalapril Maleate 10 Mg Tablet PO 20 mg BID RAGHAVENDRA Administration Hydralazine HCl 100 mg 11/05/20 15:00 12/31/20 08:10 Hydralazine Hcl 50 Mg Tablet PO 100 mg TID RAGHAVENDRA Administration Protocol Hydrochlorothiazide 25 mg 11/16/20 09:00 12/31/20 08:11 Hydrochlorothiazide 25 Mg Tablet PO 25 mg DAILY RAGHAVENDRA Administration Protocol Loperamide HCl 2 mg 10/11/20 08:21 12/29/20 04:05 Loperamide Hcl 2 Mg Capsule PO 2 mg Q6H PRN Administration Constipation Metformin HCl 500 mg 10/10/20 17:00 12/31/20 08:10 Metformin Hcl 500 Mg Tablet PO 500 mg BIDWM RAGHAVENDRA Administration Nifedipine 60 mg 11/28/20 09:00 12/31/20 08:10 Nifedipine Er 30 Mg Tab.Er.24 PO 60 mg DAILY RAGHAVENDRA Administration Protocol Labs CBC & Chem 7: 11/25/20 05:48 12/26/20 05:31 Microbiology Microbiology Results: Microbiology 11/24/20 08:18 Stool Stool Culture - Final 09/21/20 Unknown Urine clean catch - Clean Catch Midstream Urine Culture - Final No growth. Assessment and Plan (1) Dementia, vascular, mixed: Status: Acute (2) HTN (hypertension): Status: Acute (3) Communicating hydrocephalus: Status: Acute (4) Neurocognitive disorder: Status: Acute (5) Atherosclerotic cardiovascular disease: Problem details: Status post stenting Status: Acute Assessment and Plan: 85yo F with HTN, HLD, DM2, hypothyroidism, CAD s/p PCI initially admitted with falls, elevated troponin; disposition complicated by cognitive impairment requiring guardianship no new issues cognitive impairment - evaluated by psychiatry does need guardianship , had hearing in court 12/14 to assess financial assessment, will have another court date for actual guardianship. C diff colitis resolved, s/p 14d of vancomycin treatment HTN enalapril, HCTZ, nifedipine, hydralazine acute grief reaction - due to passing of . met with CARE team elevated Tn-I with underlying CAD likely due to HTN + ABELARDO (resolved), seen by Cardiology and recommended medical treatment as stable CAD with ASA + statin; HR too low for B-derrek DM2 complicated by hypoglycemia d/c'ed lispro + glimepride; continue MTF alone; A1c only 6.2 hypothyroidism continue LT4 VTE ppx ambulating well multiple times per day, would consider low risk for VTE, now off lovenox dispo - awaiting guardianship, Basically, the pt's house is not inhabitable [raw sewage backing up into house] and pt does not realize this
[2020-12-31] MEDS: Atorvastatin Calcium 80 MG TABLET PO (20:32)
[2020-12-31] MEDS: Donepezil HCl 5 MG TABLET PO (20:32)
[2021-01-01 07:07] VITALS: BP 145/65; PULSE 54; RESP 19; TEMP 36; O2SAT 96
[2021-01-01 07:24] LABS: Glucose, Whole Blood 107 mg/dL (60-115)
[2021-01-01] MEDS: hydrALAZINE HCl 50 MG TABLET 100 MG PO ×3 (08:59→20:38)
[2021-01-01] MEDS: metFORMIN HCl 500 MG TABLET PO ×2 (08:59→16:42)
[2021-01-01] MEDS: NIFEdipine ER 30 MG TAB.ER.24 60 MG PO (08:59)
[2021-01-01] MEDS: hydroCHLOROthiazide 25 MG TABLET PO (08:59)
[2021-01-01] MEDS: Enalapril Maleate 10 MG TABLET 20 MG PO ×2 (08:59→20:38)
[2021-01-01 12:20] LABS: Glucose, Whole Blood 126 mg/dL (60-115)
--- NOTE | 2021-01-01 13:31 | HO.PM.IMPN ---
Subjective Subjective Date of Service: 01/01/21 Physical Exam Vital Signs: Vital Signs: Last Vital Signs Temp 96.8 F 01/01/21 07:07 Pulse 54 01/01/21 07:07 Resp 19 01/01/21 07:07 BP 145/65 H 01/01/21 07:07 Pulse Ox 96 01/01/21 07:07 Body Mass Index 20.2 gen: NAD lungs: normal respiratory effort psych: impaired insight Objective Data Current Medications Generic Name Dose Route Start Last Admin Trade Name Freq PRN Reason Stop Dose Admin Atorvastatin Calcium 80 mg 10/04/20 21:00 12/31/20 20:32 Atorvastatin Calcium 80 Mg Tablet PO 80 mg BEDTIME RAGHAVENDRA Administration Donepezil HCl 5 mg 12/11/20 21:00 12/31/20 20:32 Donepezil Hcl 5 Mg Tablet PO 5 mg BEDTIME RAGHAVENDRA Administration Enalapril Maleate 20 mg 10/05/20 12:00 01/01/21 08:59 Enalapril Maleate 10 Mg Tablet PO 20 mg BID RAGHAVENDRA Administration Hydralazine HCl 100 mg 11/05/20 15:00 01/01/21 08:59 Hydralazine Hcl 50 Mg Tablet PO 100 mg TID RAGHAVENDRA Administration Protocol Hydrochlorothiazide 25 mg 11/16/20 09:00 01/01/21 08:59 Hydrochlorothiazide 25 Mg Tablet PO 25 mg DAILY RAGHAVENDRA Administration Protocol Loperamide HCl 2 mg 10/11/20 08:21 12/29/20 04:05 Loperamide Hcl 2 Mg Capsule PO 2 mg Q6H PRN Administration Constipation Metformin HCl 500 mg 10/10/20 17:00 01/01/21 08:59 Metformin Hcl 500 Mg Tablet PO 500 mg BIDWM RAGHAVENDRA Administration Nifedipine 60 mg 11/28/20 09:00 01/01/21 08:59 Nifedipine Er 30 Mg Tab.Er.24 PO 60 mg DAILY RAGHAVENDRA Administration Protocol Labs CBC & Chem 7: 11/25/20 05:48 12/26/20 05:31 Microbiology Microbiology Results: Microbiology 11/24/20 08:18 Stool Stool Culture - Final 09/21/20 Unknown Urine clean catch - Clean Catch Midstream Urine Culture - Final No growth. Assessment and Plan (1) Dementia, vascular, mixed: Status: Acute (2) HTN (hypertension): Status: Acute (3) Communicating hydrocephalus: Status: Acute (4) Neurocognitive disorder: Status: Acute (5) Atherosclerotic cardiovascular disease: Problem details: Status post stenting Status: Acute Assessment and Plan: hospital d#[id number] 85yo F with HTN, HLD, DM2, hypothyroidism, CAD s/p PCI initially admitted with falls, elevated troponin; disposition complicated by cognitive impairment requiring guardianship # cognitive impairment - evaluated by psychiatry does need guardianship , had hearing in court 12/14 to assess financial assessment, will have another court date for actual guardianship. # C diff colitis resolved, s/p 14d of vancomycin treatment # HTN enalapril, HCTZ, nifedipine, hydralazine # acute grief reaction - due to passing of . met with CARE team # elevated Tn-I with underlying CAD - likely due to HTN + ABELARDO (resolved), seen by Cardiology and recommended medical treatment as stable CAD with ASA + statin; HR too low for B-derrek # DM2 complicated by hypoglycemia d/c'ed lispro + glimepride; continue MTF alone; A1c only 6.2 # hypothyroidism continue LT4 # VTE ppx ambulating well multiple times per day, would consider low risk for VTE, now off lovenox # dispo - awaiting guardianship, Basically, the pt's house is not inhabitable [raw sewage backing up into house] and pt does not realize this
[2021-01-01 15:49] VITALS: BP 151/68; PULSE 68; RESP 20; TEMP 36.4; O2SAT 98
[2021-01-01] MEDS: Atorvastatin Calcium 80 MG TABLET PO (20:38)
[2021-01-01] MEDS: Donepezil HCl 5 MG TABLET PO (20:38)
[2021-01-02] VITALS: BP 123/60; PULSE 63; RESP 16; TEMP 37.1; O2SAT 99
[2021-01-02 07:30] VITALS: BP 131/59; PULSE 66; RESP 16; TEMP 36.2; O2SAT 99
[2021-01-02 08:21] LABS: Glucose, Whole Blood 120 mg/dL (60-115)
--- NOTE | 2021-01-02 09:08 | MHC.CM.PN ---
This information writer placed call to Awilda in Risk Management regarding concerns patients continued stay in the hospital and patient asking to leave hospital. Patient has been deemed incompetent to make medical decisions including discharge planning. She will continue to remain in the hospital until a safe discharge plan is in place. Her home continues to be in an unhabitable state related to sewage, electricity, running water and hoarding. At this time her special conservator is in place to investigate and arrange her finances in order to develop an appropriate discharge plan. This information writer will place communication to unit Manage Federico re: care plan that offers patient enrichment and/or stimulation during her hospital stay. Any further questions or concers for discharge planning related to this patient Case can be directed to Bereket Barnes or Marta Kay via [facility] or ext. [phone]
[2021-01-02] MEDS: NIFEdipine ER 30 MG TAB.ER.24 60 MG PO (10:06)
[2021-01-02] MEDS: hydrALAZINE HCl 50 MG TABLET 100 MG PO ×3 (10:06→20:34)
[2021-01-02] MEDS: Enalapril Maleate 10 MG TABLET 20 MG PO ×2 (10:07→20:33)
[2021-01-02] MEDS: hydroCHLOROthiazide 25 MG TABLET PO (10:07)
[2021-01-02] MEDS: metFORMIN HCl 500 MG TABLET PO ×2 (10:07→16:20)
--- NOTE | 2021-01-02 12:02 | HO.PM.IMPN ---
Subjective Subjective Date of Service: 01/02/21 Interval History: no new events Physical Exam Vital Signs: Vital Signs: Last Vital Signs Temp 97.1 F 01/02/21 07:30 Pulse 66 01/02/21 07:30 Resp 16 01/02/21 07:30 BP 131/59 L 01/02/21 07:30 Pulse Ox 99 01/02/21 07:30 Body Mass Index 20.2 gen: NAD lungs: normal respiratory effort psych: impaired insight Objective Data Current Medications Generic Name Dose Route Start Last Admin Trade Name Freq PRN Reason Stop Dose Admin Atorvastatin Calcium 80 mg 10/04/20 21:00 01/01/21 20:38 Atorvastatin Calcium 80 Mg Tablet PO 80 mg BEDTIME RAGHAVENDRA Administration Donepezil HCl 5 mg 12/11/20 21:00 01/01/21 20:38 Donepezil Hcl 5 Mg Tablet PO 5 mg BEDTIME RAGHAVENDRA Administration Enalapril Maleate 20 mg 10/05/20 12:00 01/02/21 10:07 Enalapril Maleate 10 Mg Tablet PO 20 mg BID RAGHAVENDRA Administration Hydralazine HCl 100 mg 11/05/20 15:00 01/02/21 10:06 Hydralazine Hcl 50 Mg Tablet PO 100 mg TID RAGHAVENDRA Administration Protocol Hydrochlorothiazide 25 mg 11/16/20 09:00 01/02/21 10:07 Hydrochlorothiazide 25 Mg Tablet PO 25 mg DAILY RAGHAVENDRA Administration Protocol Loperamide HCl 2 mg 10/11/20 08:21 12/29/20 04:05 Loperamide Hcl 2 Mg Capsule PO 2 mg Q6H PRN Administration Constipation Metformin HCl 500 mg 10/10/20 17:00 01/02/21 10:07 Metformin Hcl 500 Mg Tablet PO 500 mg BIDWM RAGHAVENDRA Administration Nifedipine 60 mg 11/28/20 09:00 01/02/21 10:06 Nifedipine Er 30 Mg Tab.Er.24 PO 60 mg DAILY RAGHAVENDRA Administration Protocol Labs CBC & Chem 7: 11/25/20 05:48 12/26/20 05:31 Microbiology Microbiology Results: Microbiology 11/24/20 08:18 Stool Stool Culture - Final 09/21/20 Unknown Urine clean catch - Clean Catch Midstream Urine Culture - Final No growth. Assessment and Plan (1) Dementia, vascular, mixed: Status: Acute (2) HTN (hypertension): Status: Acute (3) Communicating hydrocephalus: Status: Acute (4) Neurocognitive disorder: Status: Acute (5) Atherosclerotic cardiovascular disease: Problem details: Status post stenting Status: Acute Assessment and Plan: hospital d#105 85yo F with HTN, HLD, DM2, hypothyroidism, CAD s/p PCI initially admitted with falls, elevated troponin; disposition complicated by cognitive impairment requiring guardianship # cognitive impairment - evaluated by psychiatry does need guardianship , had hearing in court 12/14 to assess financial assessment, will have another court date for actual guardianship. # C diff colitis - resolved, s/p 14d of vancomycin treatment # HTN - enalapril, HCTZ, nifedipine, hydralazine # acute grief reaction - due to passing of . met with CARE team # elevated Tn-I with underlying CAD - likely due to HTN + ABELARDO (resolved), seen by Cardiology and recommended medical treatment as stable CAD with ASA + statin; HR too low for B-derrek # DM2 complicated by hypoglycemia - d/c'ed lispro + glimepride; continue MTF alone; A1c only 6.2 # hypothyroidism - continue LT4 # VTE ppx - ambulating well multiple times per day, would consider low risk for VTE, now off LMWH # dispo - awaiting guardianship, Basically, the pt's house is not inhabitable [raw sewage backing up into house] and pt does not realize this
[2021-01-02 15:18] VITALS: BP 151/71; PULSE 68; RESP 16; TEMP 36.3; O2SAT 98
--- NOTE | 2021-01-02 15:21 | PC.NURSE ---
per dr wade, ok to take patient outside. patient goes outside for 15 minutes with security and apur[employer] rec therapist. easily directable, enjoys outing.
[2021-01-02] MEDS: Loperamide HCl 2 MG CAPSULE PO (17:59)
[2021-01-02 20:33] VITALS: BP 151/71; PULSE 68
[2021-01-02 20:34] VITALS: BP 151/71; PULSE 68
[2021-01-02] MEDS: Atorvastatin Calcium 80 MG TABLET PO (20:34)
[2021-01-02] MEDS: Donepezil HCl 5 MG TABLET PO (20:34)
[2021-01-02 23:22] VITALS: BP 117/53; PULSE 68; RESP 16; TEMP 36.6; O2SAT 98
[2021-01-03 07:21] VITALS: BP 108/44; PULSE 54; RESP 16; TEMP 36.5; O2SAT 98
[2021-01-03 08:28] LABS: Glucose, Whole Blood 109 mg/dL (60-115)
[2021-01-03] MEDS: metFORMIN HCl 500 MG TABLET PO ×2 (09:13→16:59)
[2021-01-03 09:28] LABS: Estimated Glomerular Filt Rate 45
[2021-01-03] MEDS: NIFEdipine ER 30 MG TAB.ER.24 60 MG PO (11:21)
[2021-01-03] MEDS: hydrALAZINE HCl 50 MG TABLET 100 MG PO ×3 (11:21→20:55)
[2021-01-03] MEDS: hydroCHLOROthiazide 25 MG TABLET PO (11:21)
[2021-01-03] MEDS: Enalapril Maleate 10 MG TABLET 20 MG PO (11:21)
[2021-01-03 11:24] VITALS: BP 170/84; PULSE 77
--- NOTE | 2021-01-03 11:58 | HO.PM.IMPN ---
Subjective Subjective Date of Service: 01/03/21 Interval History: went outside yesterday and happy about that no new complaints Physical Exam Vital Signs: Vital Signs: Last Vital Signs Temp 97.7 F 01/03/21 07:21 Pulse 77 01/03/21 11:24 Resp 16 01/03/21 07:21 BP 170/84 H 01/03/21 11:24 Pulse Ox 98 01/03/21 07:21 Body Mass Index 20.2 gen: NAD lungs: normal respiratory effort psych: impaired insight Objective Data Current Medications Generic Name Dose Route Start Last Admin Trade Name Freq PRN Reason Stop Dose Admin Donepezil HCl 5 mg 12/11/20 21:00 01/02/21 20:34 Donepezil Hcl 5 Mg Tablet PO 5 mg BEDTIME RAGHAVENDRA Administration Enalapril Maleate 20 mg 10/05/20 12:00 01/03/21 11:21 Enalapril Maleate 10 Mg Tablet PO 20 mg BID RAGHAVENDRA Administration Hydralazine HCl 100 mg 11/05/20 15:00 01/03/21 11:21 Hydralazine Hcl 50 Mg Tablet PO 100 mg TID RAGHAVENDRA Administration Protocol Hydrochlorothiazide 25 mg 11/16/20 09:00 01/03/21 11:21 Hydrochlorothiazide 25 Mg Tablet PO 25 mg DAILY RAGHAVENDRA Administration Protocol Loperamide HCl 2 mg 10/11/20 08:21 01/02/21 17:59 Loperamide Hcl 2 Mg Capsule PO 2 mg Q6H PRN Administration Constipation Metformin HCl 500 mg 10/10/20 17:00 01/03/21 09:13 Metformin Hcl 500 Mg Tablet PO 500 mg BIDWM RAGHAVENDRA Administration Nifedipine 60 mg 11/28/20 09:00 01/03/21 11:21 Nifedipine Er 30 Mg Tab.Er.24 PO 60 mg DAILY RAGHAVENDRA Administration Protocol Labs CBC & Chem 7: 11/25/20 05:48 01/03/21 08:32 Microbiology Microbiology Results: Microbiology 11/24/20 08:18 Stool Stool Culture - Final 09/21/20 Unknown Urine clean catch - Clean Catch Midstream Urine Culture - Final No growth. Assessment and Plan (1) Dementia, vascular, mixed: Status: Acute (2) HTN (hypertension): Status: Acute (3) Communicating hydrocephalus: Status: Acute (4) Neurocognitive disorder: Status: Acute (5) Atherosclerotic cardiovascular disease: Problem details: Status post stenting Status: Acute Assessment and Plan: hospital d#[id number] 85yo F with HTN, HLD, DM2, hypothyroidism, CAD s/p PCI initially admitted with falls, elevated troponin; disposition complicated by cognitive impairment requiring guardianship # cognitive impairment - evaluated by psychiatry does need guardianship , had hearing in court 12/14 to assess financial assessment, will have another court date for actual guardianship. # C diff colitis - resolved, s/p 14d of vancomycin treatment # HTN - enalapril, HCTZ, nifedipine, hydralazine # acute grief reaction - due to passing of . met with CARE team # elevated Tn-I with underlying CAD - likely due to HTN + ABELARDO (resolved), seen by Cardiology and recommended medical treatment as stable CAD with ASA + statin; HR too low for B-derrek # DM2 complicated by hypoglycemia - d/c'ed lispro + glimepride; continue MTF alone; A1c only 6.2; does not need fingersticks at this point # hypothyroidism - continue LT4 # VTE ppx - ambulating well multiple times per day, would consider low risk for VTE, now off LMWH # dispo - awaiting guardianship, Basically, the pt's house is not inhabitable [raw sewage backing up into house] and pt does not realize this
--- NOTE | 2021-01-03 12:59 | MHC.CM.PN ---
This financial writer placed call to hospital [employer] Marta Wren. She provided further information regarding patient's social status. The patient's home is in need of $30K in repairs, including septic and the home must connect to town water prior to it being livable. The barn on the patient's property has been condemned. At this time it does not appear that the patient has any significant funds. There is a mortgage on the home for $130K. Case Management will continue to follow case until a safe discharge plan is made.
[2021-01-03 15:40] VITALS: BP 159/76; PULSE 66; RESP 18; TEMP 36.3; O2SAT 97
[2021-01-03 15:58] VITALS: BP 159/76; PULSE 66
[2021-01-03 20:55] VITALS: BP 150/67; PULSE 66
[2021-01-03] MEDS: Donepezil HCl 5 MG TABLET PO (20:55)
[2021-01-04] VITALS: BP 102/43; PULSE 55; RESP 16; TEMP 36.6; O2SAT 98
[2021-01-04 07:20] VITALS: BP 140/74; PULSE 59; RESP 16; TEMP 36.7; O2SAT 97
[2021-01-04 07:35] LABS: Glucose, Whole Blood 106 mg/dL (60-115)
[2021-01-04] MEDS: NIFEdipine ER 30 MG TAB.ER.24 60 MG PO (09:17)
[2021-01-04] MEDS: metFORMIN HCl 500 MG TABLET PO ×2 (09:17→16:31)
[2021-01-04] MEDS: hydrALAZINE HCl 50 MG TABLET 100 MG PO ×3 (09:17→20:57)
[2021-01-04] MEDS: hydroCHLOROthiazide 25 MG TABLET PO (09:17)
--- NOTE | 2021-01-04 10:57 | HO.PM.IMPN ---
Subjective Subjective Date of Service: 01/04/21 Interval History: no new events no abd pain or diarrhea ambulating without issues Physical Exam Vital Signs: Vital Signs: Last Vital Signs Temp 98.0 F 01/04/21 07:20 Pulse 59 01/04/21 07:20 Resp 16 01/04/21 07:20 BP 140/74 H 01/04/21 07:20 Pulse Ox 97 01/04/21 07:20 Body Mass Index 20.2 gen: NAD lungs: normal respiratory effort psych: impaired insight Objective Data Current Medications Generic Name Dose Route Start Last Admin Trade Name Freq PRN Reason Stop Dose Admin Donepezil HCl 5 mg 12/11/20 21:00 01/03/21 20:55 Donepezil Hcl 5 Mg Tablet PO 5 mg BEDTIME RAGHAVENDRA Administration Hydralazine HCl 100 mg 11/05/20 15:00 01/04/21 09:17 Hydralazine Hcl 50 Mg Tablet PO 100 mg TID RAGHAVENDRA Administration Protocol Hydrochlorothiazide 25 mg 11/16/20 09:00 01/04/21 09:17 Hydrochlorothiazide 25 Mg Tablet PO 25 mg DAILY RAGHAVENDRA Administration Protocol Loperamide HCl 2 mg 10/11/20 08:21 01/02/21 17:59 Loperamide Hcl 2 Mg Capsule PO 2 mg Q6H PRN Administration Constipation Metformin HCl 500 mg 10/10/20 17:00 01/04/21 09:17 Metformin Hcl 500 Mg Tablet PO 500 mg BIDWM RAGHAVENDRA Administration Nifedipine 60 mg 11/28/20 09:00 01/04/21 09:17 Nifedipine Er 30 Mg Tab.Er.24 PO 60 mg DAILY RAGHAVENDRA Administration Protocol Labs CBC & Chem 7: 11/25/20 05:48 01/03/21 08:32 Microbiology Microbiology Results: Microbiology 11/24/20 08:18 Stool Stool Culture - Final 09/21/20 Unknown Urine clean catch - Clean Catch Midstream Urine Culture - Final No growth. Assessment and Plan (1) Dementia, vascular, mixed: Status: Acute (2) HTN (hypertension): Status: Acute (3) Communicating hydrocephalus: Status: Acute (4) Neurocognitive disorder: Status: Acute (5) Atherosclerotic cardiovascular disease: Problem details: Status post stenting Status: Acute Assessment and Plan: hospital d#[id number] 85yo F with HTN, HLD, DM2, hypothyroidism, CAD s/p PCI initially admitted with falls, elevated troponin; disposition complicated by cognitive impairment requiring guardianship # cognitive impairment - evaluated by psychiatry does need guardianship , had hearing in court 12/14 to assess financial assessment, will have another court date for actual guardianship. # C diff colitis - resolved, s/p 14d of vancomycin treatment # HTN - enalapril, HCTZ, nifedipine, hydralazine # acute grief reaction - due to passing of . met with CARE team # elevated Tn-I with underlying CAD - likely due to HTN + ABELARDO (resolved), seen by Cardiology and recommended medical treatment as stable CAD with ASA + statin; HR too low for B-derrek # DM2 complicated by hypoglycemia - d/c'ed lispro + glimepride; continue MTF alone; A1c only 6.2; does not need fingersticks at this point # hypothyroidism - continue LT4 # VTE ppx - ambulating well multiple times per day, would consider low risk for VTE, now off LMWH # dispo - awaiting guardianship, Basically, the pt's house is not inhabitable [raw sewage backing up into house] and pt does not realize this
[2021-01-04 15:57] VITALS: BP 117/49; PULSE 58; RESP 18; TEMP 36.3; O2SAT 99
[2021-01-04 16:31] VITALS: BP 117/49; PULSE 58
[2021-01-04 20:57] VITALS: BP 148/76; PULSE 84
[2021-01-04] MEDS: Donepezil HCl 5 MG TABLET PO (20:57)
[2021-01-04 23:19] VITALS: BP 144/69; PULSE 68; RESP 18; TEMP 36.8; O2SAT 97
[2021-01-05 07:51] VITALS: BP 173/73; PULSE 55; RESP 17; TEMP 36.5; O2SAT 95
[2021-01-05 08:03] LABS: Glucose, Whole Blood 118 mg/dL (60-115)
[2021-01-05 08:42] VITALS: BP 173/73; PULSE 62
[2021-01-05] MEDS: metFORMIN HCl 500 MG TABLET PO ×2 (08:42→15:41)
[2021-01-05] MEDS: hydroCHLOROthiazide 25 MG TABLET PO (08:42)
[2021-01-05] MEDS: hydrALAZINE HCl 50 MG TABLET 100 MG PO ×3 (08:42→21:46)
[2021-01-05 08:43] VITALS: BP 173/73; PULSE 62
[2021-01-05] MEDS: NIFEdipine ER 30 MG TAB.ER.24 60 MG PO (08:43)
--- NOTE | 2021-01-05 12:19 | MHC.CM.PN ---
PATIENT'S TEMPORARY CONSERVATOR TO ATTEMPT GUARDIANSHIP AND A COURT DATE. CASE MANAGEMENT WILL BE KEPT UPDATED ON PROGRESS, AND MAKE NOTES PROGRESS IS MADE.
--- NOTE | 2021-01-05 12:31 | MHC.CM.PN ---
PATIENT IS NOW [place]SFERRING HOME [place] [id number]. [facility] AWARE AND IN AGREEMENT. RN AWARE OF PLAN.
--- NOTE | 2021-01-05 14:47 | HO.PM.IMPN ---
Subjective Subjective Date of Service: 01/05/21 Interval History: no new events no abd pain no diarrhea Physical Exam Vital Signs: Vital Signs: Last Vital Signs Temp 97.7 F 01/05/21 07:51 Pulse 62 01/05/21 08:43 Resp 17 01/05/21 07:51 BP 173/73 H 01/05/21 08:43 Pulse Ox 95 01/05/21 07:51 Body Mass Index 20.2 gen: NAD lungs: normal respiratory effort psych: impaired insight Objective Data Current Medications Generic Name Dose Route Start Last Admin Trade Name Freq PRN Reason Stop Dose Admin Donepezil HCl 5 mg 12/11/20 21:00 01/04/21 20:57 Donepezil Hcl 5 Mg Tablet PO 5 mg BEDTIME RAGHAVENDRA Administration Hydralazine HCl 100 mg 11/05/20 15:00 01/05/21 08:42 Hydralazine Hcl 50 Mg Tablet PO 100 mg TID RAGHAVENDRA Administration Protocol Hydrochlorothiazide 25 mg 11/16/20 09:00 01/05/21 08:42 Hydrochlorothiazide 25 Mg Tablet PO 25 mg DAILY RAGHAVENDRA Administration Protocol Loperamide HCl 2 mg 10/11/20 08:21 01/02/21 17:59 Loperamide Hcl 2 Mg Capsule PO 2 mg Q6H PRN Administration Constipation Metformin HCl 500 mg 10/10/20 17:00 01/05/21 08:42 Metformin Hcl 500 Mg Tablet PO 500 mg BIDWM RAGHAVENDRA Administration Nifedipine 60 mg 11/28/20 09:00 01/05/21 08:43 Nifedipine Er 30 Mg Tab.Er.24 PO 60 mg DAILY RAGHAVENDRA Administration Protocol Labs CBC & Chem 7: 11/25/20 05:48 01/03/21 08:32 Microbiology Microbiology Results: Microbiology 11/24/20 08:18 Stool Stool Culture - Final 09/21/20 Unknown Urine clean catch - Clean Catch Midstream Urine Culture - Final No growth. Assessment and Plan (1) Dementia, vascular, mixed: Status: Acute (2) HTN (hypertension): Status: Acute (3) Communicating hydrocephalus: Status: Acute (4) Neurocognitive disorder: Status: Acute (5) Atherosclerotic cardiovascular disease: Status: Acute Assessment and Plan: hospital d#108 85yo F with HTN, HLD, DM2, hypothyroidism, CAD s/p PCI initially admitted with falls, elevated troponin; disposition complicated by cognitive impairment requiring guardianship # cognitive impairment - evaluated by psychiatry does need guardianship , had hearing in court 12/14 to assess financial assessment, will have another court date for actual guardianship. # C diff colitis - resolved, s/p 14d of vancomycin treatment # HTN - enalapril, HCTZ, nifedipine, hydralazine # acute grief reaction - due to passing of . met with CARE team # elevated Tn-I with underlying CAD - likely due to HTN + ABELARDO (resolved), seen by Cardiology and recommended medical treatment as stable CAD with ASA + statin; HR too low for B-derrek # DM2 complicated by hypoglycemia - d/c'ed lispro + glimepride; continue MTF alone; A1c only 6.2; does not need fingersticks at this point # hypothyroidism - continue LT4 # VTE ppx - ambulating well multiple times per day, would consider low risk for VTE, now off LMWH # dispo - awaiting guardianship, Basically, the pt's house is not inhabitable [raw sewage backing up into house] and pt does not realize this
[2021-01-05 15:36] VITALS: BP 159/74; PULSE 79; RESP 16; TEMP 36.4; O2SAT 97
[2021-01-05 15:41] VITALS: BP 159/74; PULSE 79
[2021-01-05] MEDS: Donepezil HCl 5 MG TABLET PO (21:46)
[2021-01-05 23:43] VITALS: BP 147/65; PULSE 64; RESP 16; TEMP 36.8; O2SAT 97
[2021-01-06 07:12] VITALS: BP 143/64; PULSE 57; RESP 15; TEMP 36.4; O2SAT 98
[2021-01-06 07:35] LABS: Glucose, Whole Blood 135 mg/dL (60-115)
[2021-01-06] MEDS: metFORMIN HCl 500 MG TABLET PO ×2 (10:05→18:50)
[2021-01-06] MEDS: NIFEdipine ER 30 MG TAB.ER.24 60 MG PO (10:05)
[2021-01-06] MEDS: hydrALAZINE HCl 50 MG TABLET 100 MG PO ×3 (10:05→20:47)
[2021-01-06] MEDS: hydroCHLOROthiazide 25 MG TABLET PO (10:05)
--- NOTE | 2021-01-06 12:46 | HO.PM.IMPN ---
Subjective Subjective Date of Service: 01/06/21 Interval History: no new events no complaints Physical Exam Vital Signs: Vital Signs: Last Vital Signs Temp 97.5 F 01/06/21 07:12 Pulse 57 01/06/21 07:12 Resp 15 01/06/21 07:12 BP 143/64 H 01/06/21 07:12 Pulse Ox 98 01/06/21 07:12 Body Mass Index 20.2 gen: NAD psych: impaired insight Objective Data Current Medications Generic Name Dose Route Start Last Admin Trade Name Freq PRN Reason Stop Dose Admin Donepezil HCl 5 mg 12/11/20 21:00 01/05/21 21:46 Donepezil Hcl 5 Mg Tablet PO 5 mg BEDTIME RAGHAVENDRA Administration Hydralazine HCl 100 mg 11/05/20 15:00 01/06/21 10:05 Hydralazine Hcl 50 Mg Tablet PO 100 mg TID RAGHAVENDRA Administration Protocol Hydrochlorothiazide 25 mg 11/16/20 09:00 01/06/21 10:05 Hydrochlorothiazide 25 Mg Tablet PO 25 mg DAILY RAGHAVENDRA Administration Protocol Loperamide HCl 2 mg 10/11/20 08:21 01/02/21 17:59 Loperamide Hcl 2 Mg Capsule PO 2 mg Q6H PRN Administration Constipation Metformin HCl 500 mg 10/10/20 17:00 01/06/21 10:05 Metformin Hcl 500 Mg Tablet PO 500 mg BIDWM RAGHAVENDRA Administration Nifedipine 60 mg 11/28/20 09:00 01/06/21 10:05 Nifedipine Er 30 Mg Tab.Er.24 PO 60 mg DAILY RAGHAVENDRA Administration Protocol Labs CBC & Chem 7: 11/25/20 05:48 01/03/21 08:32 Microbiology Microbiology Results: Microbiology 11/24/20 08:18 Stool Stool Culture - Final 09/21/20 Unknown Urine clean catch - Clean Catch Midstream Urine Culture - Final No growth. Assessment and Plan (1) Dementia, vascular, mixed: Status: Acute (2) HTN (hypertension): Status: Acute (3) Communicating hydrocephalus: Status: Acute (4) Neurocognitive disorder: Status: Acute (5) Atherosclerotic cardiovascular disease: Status: Acute Assessment and Plan: hospital d#[id number] 85yo F with HTN, HLD, DM2, hypothyroidism, CAD s/p PCI initially admitted with falls, elevated troponin; disposition complicated by cognitive impairment requiring guardianship # cognitive impairment - evaluated by psychiatry does need guardianship , had hearing in court 12/14 to assess financial assessment, will have another court date for actual guardianship. # C diff colitis - resolved, s/p 14d of vancomycin treatment # HTN - enalapril, HCTZ, nifedipine, hydralazine # acute grief reaction - due to passing of . met with CARE team # elevated Tn-I with underlying CAD - likely due to HTN + ABELARDO (resolved), seen by Cardiology and recommended medical treatment as stable CAD with ASA + statin; HR too low for B-derrek # DM2 complicated by hypoglycemia - d/c'ed lispro + glimepride; continue MTF alone; A1c only 6.2; does not need fingersticks at this point # hypothyroidism - continue LT4 # VTE ppx - ambulating well multiple times per day, would consider low risk for VTE, now off LMWH # dispo - awaiting guardianship, Basically, the pt's house is not inhabitable [raw sewage backing up into house] and pt does not realize this
[2021-01-06 15:52] VITALS: BP 151/71; PULSE 63; RESP 16; TEMP 36.6; O2SAT 95
[2021-01-06 16:06] VITALS: BP 151/71; PULSE 63
[2021-01-06 20:47] VITALS: BP 151/71; PULSE 63
[2021-01-06] MEDS: Donepezil HCl 5 MG TABLET PO (20:47)
[2021-01-07] VITALS: BP 137/73; PULSE 62; RESP 18; TEMP 36.4; O2SAT 98
[2021-01-07 07:34] VITALS: BP 146/68; PULSE 59; RESP 17; TEMP 36.3; O2SAT 97
[2021-01-07 07:42] LABS: Glucose, Whole Blood 107 mg/dL (60-115)
[2021-01-07] MEDS: NIFEdipine ER 30 MG TAB.ER.24 60 MG PO (09:12)
[2021-01-07] MEDS: hydroCHLOROthiazide 25 MG TABLET PO (09:12)
[2021-01-07] MEDS: hydrALAZINE HCl 50 MG TABLET 100 MG PO ×3 (09:12→20:53)
[2021-01-07] MEDS: metFORMIN HCl 500 MG TABLET PO ×2 (09:12→17:05)
--- NOTE | 2021-01-07 15:11 | HO.PM.IMPN ---
Subjective Subjective Date of Service: 01/07/21 Interval History: no new events ambulating hallways without issues Physical Exam Vital Signs: Vital Signs: Last Vital Signs Temp 97.4 F 01/07/21 07:34 Pulse 59 01/07/21 07:34 Resp 17 01/07/21 07:34 BP 146/68 H 01/07/21 07:34 Pulse Ox 97 01/07/21 07:34 Body Mass Index 20.2 gen: NAD psych: impaired insight Objective Data Current Medications Generic Name Dose Route Start Last Admin Trade Name Freq PRN Reason Stop Dose Admin Donepezil HCl 5 mg 12/11/20 21:00 01/06/21 20:47 Donepezil Hcl 5 Mg Tablet PO 5 mg BEDTIME RAGHAVENDRA Administration Hydralazine HCl 100 mg 11/05/20 15:00 01/07/21 14:32 Hydralazine Hcl 50 Mg Tablet PO 100 mg TID RAGHAVENDRA Administration Protocol Hydrochlorothiazide 25 mg 11/16/20 09:00 01/07/21 09:12 Hydrochlorothiazide 25 Mg Tablet PO 25 mg DAILY RAGHAVENDRA Administration Protocol Loperamide HCl 2 mg 10/11/20 08:21 01/02/21 17:59 Loperamide Hcl 2 Mg Capsule PO 2 mg Q6H PRN Administration Constipation Metformin HCl 500 mg 10/10/20 17:00 01/07/21 09:12 Metformin Hcl 500 Mg Tablet PO 500 mg BIDWM RAGHAVENDRA Administration Nifedipine 60 mg 11/28/20 09:00 01/07/21 09:12 Nifedipine Er 30 Mg Tab.Er.24 PO 60 mg DAILY RAGHAVENDRA Administration Protocol Labs CBC & Chem 7: 11/25/20 05:48 01/03/21 08:32 Microbiology Microbiology Results: Microbiology 11/24/20 08:18 Stool Stool Culture - Final 09/21/20 Unknown Urine clean catch - Clean Catch Midstream Urine Culture - Final No growth. Assessment and Plan (1) Dementia, vascular, mixed: Status: Acute (2) HTN (hypertension): Status: Acute (3) Communicating hydrocephalus: Status: Acute (4) Neurocognitive disorder: Status: Acute (5) Atherosclerotic cardiovascular disease: Status: Acute Assessment and Plan: hospital d#109 85yo F with HTN, HLD, DM2, hypothyroidism, CAD s/p PCI initially admitted with falls, elevated troponin; disposition complicated by cognitive impairment requiring guardianship # cognitive impairment - evaluated by psychiatry does need guardianship , had hearing in court 12/14 to assess financial assessment, will have another court date for actual guardianship. # C diff colitis - resolved, s/p 14d of vancomycin treatment # HTN - enalapril, HCTZ, nifedipine, hydralazine # acute grief reaction - due to passing of . met with CARE team # elevated Tn-I with underlying CAD - likely due to HTN + ABELARDO (resolved), seen by Cardiology and recommended medical treatment as stable CAD with ASA + statin; HR too low for B-derrek # DM2 complicated by hypoglycemia - d/c'ed lispro + glimepride; continue MTF alone; A1c only 6.2; does not need fingersticks at this point # hypothyroidism - continue LT4 # VTE ppx - ambulating well multiple times per day, would consider low risk for VTE, now off LMWH # dispo - awaiting guardianship, Basically, the pt's house is not inhabitable [raw sewage backing up into house] and pt does not realize this
[2021-01-07 15:38] VITALS: BP 173/81; PULSE 68; RESP 16; TEMP 36.4; O2SAT 98
[2021-01-07 20:53] VITALS: BP 173/81; PULSE 68
[2021-01-07] MEDS: Donepezil HCl 5 MG TABLET PO (20:53)
[2021-01-07 23:53] VITALS: BP 154/68; PULSE 63; RESP 16; TEMP 36.6; O2SAT 96
[2021-01-08 08:00] VITALS: BP 168/76; PULSE 67; RESP 17; TEMP 36.1; O2SAT 96
[2021-01-08 08:14] LABS: Glucose, Whole Blood 135 mg/dL (60-115)
--- NOTE | 2021-01-08 08:36 | MHC.CM.PN ---
still waiting for court date for guardian to be appointed. cm to cont. to follow.
[2021-01-08] MEDS: hydrALAZINE HCl 50 MG TABLET 100 MG PO ×3 (09:35→20:30)
[2021-01-08] MEDS: NIFEdipine ER 30 MG TAB.ER.24 60 MG PO (09:36)
[2021-01-08] MEDS: metFORMIN HCl 500 MG TABLET PO ×2 (09:36→16:43)
[2021-01-08] MEDS: hydroCHLOROthiazide 25 MG TABLET PO (09:36)
--- NOTE | 2021-01-08 12:22 | HO.PM.IMPN ---
Subjective Subjective Date of Service: 01/08/21 Interval History: ambulating well Cardiovascular Cardiovascular: Reports no additional cardiovascular complaints Gastrointestinal Gastrointestinal: Reports no additional gastrointestinal complaints Physical Exam Vital Signs: Vital Signs: Last Vital Signs Temp 97.0 F 01/08/21 08:00 Pulse 67 01/08/21 08:00 Resp 17 01/08/21 08:00 BP 168/76 H 01/08/21 08:00 Pulse Ox 96 01/08/21 08:00 Body Mass Index 20.2 gen: NAD psych: impaired insight Objective Data Current Medications Generic Name Dose Route Start Last Admin Trade Name Freq PRN Reason Stop Dose Admin Donepezil HCl 5 mg 12/11/20 21:00 01/07/21 20:53 Donepezil Hcl 5 Mg Tablet PO 5 mg BEDTIME RAGHAVENDRA Administration Hydralazine HCl 100 mg 11/05/20 15:00 01/08/21 09:35 Hydralazine Hcl 50 Mg Tablet PO 100 mg TID RAGHAVENDRA Administration Protocol Hydrochlorothiazide 25 mg 11/16/20 09:00 01/08/21 09:36 Hydrochlorothiazide 25 Mg Tablet PO 25 mg DAILY RAGHAVENDRA Administration Protocol Loperamide HCl 2 mg 10/11/20 08:21 01/02/21 17:59 Loperamide Hcl 2 Mg Capsule PO 2 mg Q6H PRN Administration Constipation Metformin HCl 500 mg 10/10/20 17:00 01/08/21 09:36 Metformin Hcl 500 Mg Tablet PO 500 mg BIDWM RAGHAVENDRA Administration Nifedipine 60 mg 11/28/20 09:00 01/08/21 09:36 Nifedipine Er 30 Mg Tab.Er.24 PO 60 mg DAILY RAGHAVENDRA Administration Protocol Labs CBC & Chem 7: 11/25/20 05:48 01/03/21 08:32 Microbiology Microbiology Results: Microbiology 11/24/20 08:18 Stool Stool Culture - Final 09/21/20 Unknown Urine clean catch - Clean Catch Midstream Urine Culture - Final No growth. Assessment and Plan (1) Dementia, vascular, mixed: Status: Acute (2) HTN (hypertension): Status: Acute (3) Communicating hydrocephalus: Status: Acute (4) Neurocognitive disorder: Status: Acute (5) Atherosclerotic cardiovascular disease: Status: Acute Assessment and Plan: hospital d#[id number] 85yo F with HTN, HLD, DM2, hypothyroidism, CAD s/p PCI initially admitted with falls, elevated troponin; disposition complicated by cognitive impairment requiring guardianship # cognitive impairment - evaluated by psychiatry does need guardianship , had hearing in court 12/14 to assess financial assessment, will have another court date for actual guardianship. # C diff colitis - resolved, s/p 14d of vancomycin treatment # HTN - enalapril, HCTZ, nifedipine, hydralazine # acute grief reaction - due to passing of . met with CARE team # elevated Tn-I with underlying CAD - likely due to HTN + ABELARDO (resolved), seen by Cardiology and recommended medical treatment as stable CAD with ASA + statin; HR too low for B-derrek # DM2 complicated by hypoglycemia - d/c'ed lispro + glimepride; continue MTF alone; A1c only 6.2; does not need fingersticks at this point # hypothyroidism - continue LT4 # VTE ppx - ambulating well multiple times per day, would consider low risk for VTE, now off LMWH # dispo - awaiting guardianship, Basically, the pt's house is not inhabitable [raw sewage backing up into house] and pt does not realize this
[2021-01-08 15:46] VITALS: BP 149/82; PULSE 68; RESP 16; TEMP 36.6; O2SAT 98
[2021-01-08 16:43] VITALS: BP 149/82; PULSE 68
[2021-01-08 20:30] VITALS: BP 153/67; PULSE 68
[2021-01-08] MEDS: Donepezil HCl 5 MG TABLET PO (20:31)
[2021-01-09] VITALS: BP 123/60; PULSE 66; RESP 18; TEMP 36.6; O2SAT 96
[2021-01-09 03:43] VITALS: BP 136/64; PULSE 70; RESP 18; TEMP 36.3; O2SAT 96
[2021-01-09 07:52] LABS: Glucose, Whole Blood 140 mg/dL (60-115)
[2021-01-09 08:00] VITALS: BP 164/76; PULSE 66; RESP 17; TEMP 36.6; O2SAT 98
[2021-01-09] MEDS: hydroCHLOROthiazide 25 MG TABLET PO (08:18)
[2021-01-09] MEDS: NIFEdipine ER 30 MG TAB.ER.24 60 MG PO (08:18)
[2021-01-09] MEDS: hydrALAZINE HCl 50 MG TABLET 100 MG PO ×3 (08:19→20:10)
--- NOTE | 2021-01-09 09:08 | HO.PM.IMPN ---
Subjective Subjective Date of Service: 01/09/21 Interval History: cogniotive impairment Review of Systems Walking in the corridor, denies any chest pain or shortness of breath or abdominal pain or fever or chills. Physical Exam Vital Signs: Vital Signs: Last Vital Signs Temp 97.8 F 01/09/21 08:00 Pulse 66 01/09/21 08:00 Resp 17 01/09/21 08:00 BP 164/76 H 01/09/21 08:00 Pulse Ox 98 01/09/21 08:00 Body Mass Index 20.2 Physical exam: Cvs: rrr, [id number] , no murmur res: clear to auscultation ,no rhonchii or wheezing abd: no rebound or guarding ,nt, bs present. ext pulses present , no cyanosis neuro: nonfocal. Objective Data Current Medications Generic Name Dose Route Start Last Admin Trade Name Freq PRN Reason Stop Dose Admin Donepezil HCl 5 mg 12/11/20 21:00 01/08/21 20:31 Donepezil Hcl 5 Mg Tablet PO 5 mg BEDTIME RAGHAVENDRA Administration Hydralazine HCl 100 mg 11/05/20 15:00 01/09/21 08:19 Hydralazine Hcl 50 Mg Tablet PO 100 mg TID RAGHAVENDRA Administration Protocol Hydrochlorothiazide 25 mg 11/16/20 09:00 01/09/21 08:18 Hydrochlorothiazide 25 Mg Tablet PO 25 mg DAILY RAGHAVENDRA Administration Protocol Nifedipine 60 mg 11/28/20 09:00 01/09/21 08:18 Nifedipine Er 30 Mg Tab.Er.24 PO 60 mg DAILY RAGHAVENDRA Administration Protocol Labs CBC & Chem 7: 11/25/20 05:48 01/03/21 08:32 Microbiology Microbiology Results: Microbiology 11/24/20 08:18 Stool Stool Culture - Final 09/21/20 Unknown Urine clean catch - Clean Catch Midstream Urine Culture - Final No growth. Assessment and Plan (1) Dementia, vascular, mixed: Status: Acute (2) HTN (hypertension): Status: Acute (3) Communicating hydrocephalus: Status: Acute (4) Neurocognitive disorder: Status: Acute (5) Atherosclerotic cardiovascular disease: Status: Acute Assessment and Plan: hospital d#111 85yo F with HTN, HLD, DM2, hypothyroidism, CAD s/p PCI initially admitted with falls, elevated troponin; disposition complicated by cognitive impairment requiring guardianship 1.cognitive impairment- evaluated by psychiatry does need guardianship , had hearing in court 12/14 to assess financial assessment, will have another court date for actual guardianship. 2. C diff colitis- resolved, s/p 14d of vancomycin treatment 3. HTN- enalapril, HCTZ, nifedipine, hydralazine 4. acute grief reaction- due to passing of . met with CARE team 5. elevated Tn-I with underlying CAD- likely due to HTN + ABELARDO (resolved), seen by Cardiology and recommended medical treatment as stable CAD with ASA + statin; HR too low for B-derrek 6. DM2 complicated by hypoglycemia- d/c'ed lispro + glimepride; continue MTF alone; A1c only 6.2; does not need fingersticks at this point 7. hypothyroidism- continue LT4 8. VTE ppx- ambulating well multiple times per day, would consider low risk for VTE, now off LMWH 9.dispo- awaiting guardianship, Basically, the pt's house is not inhabitable [raw sewage backing up into house] and pt does not realize this
[2021-01-09 15:14] VITALS: BP 166/73; PULSE 62; RESP 16; TEMP 36.6; O2SAT 97
[2021-01-09 20:10] VITALS: BP 166/73; PULSE 62
[2021-01-09] MEDS: Donepezil HCl 5 MG TABLET PO (20:11)
[2021-01-09 20:15] LABS: Glucose, Whole Blood 290 mg/dL (60-115)
[2021-01-09 23:54] VITALS: BP 153/69; PULSE 61; RESP 18; TEMP 37; O2SAT 96
[2021-01-10 07:23] VITALS: BP 165/72; PULSE 55; RESP 19; TEMP 36.4; O2SAT 98
[2021-01-10 07:44] LABS: Glucose, Whole Blood 131 mg/dL (60-115)
[2021-01-10 09:54] VITALS: BP 165/72; PULSE 55
[2021-01-10] MEDS: hydrALAZINE HCl 50 MG TABLET 100 MG PO ×3 (09:54→20:19)
[2021-01-10] MEDS: hydroCHLOROthiazide 25 MG TABLET PO (09:54)
[2021-01-10] MEDS: NIFEdipine ER 30 MG TAB.ER.24 60 MG PO (09:54)
--- NOTE | 2021-01-10 10:22 | HO.PM.IMPN ---
Subjective Subjective Date of Service: 01/10/21 Interval History: ambulating well Cardiovascular Cardiovascular: Reports no additional cardiovascular complaints Gastrointestinal Gastrointestinal: Reports no additional gastrointestinal complaints Physical Exam Vital Signs: Vital Signs: Last Vital Signs Temp 97.6 F 01/10/21 07:23 Pulse 55 01/10/21 09:54 Resp 19 01/10/21 07:23 BP 165/72 H 01/10/21 09:54 Pulse Ox 98 01/10/21 07:23 Body Mass Index 20.0 gen: NAD psych: impaired insight Objective Data Current Medications Generic Name Dose Route Start Last Admin Trade Name Srinivas PRN Reason Stop Dose Admin Donepezil HCl 5 mg 12/11/20 21:00 01/09/21 20:11 Donepezil Hcl 5 Mg Tablet PO 5 mg BEDTIME RAGHAVENDRA Administration Hydralazine HCl 100 mg 11/05/20 15:00 01/10/21 09:54 Hydralazine Hcl 50 Mg Tablet PO 100 mg TID RAGHAVENDRA Administration Protocol Hydrochlorothiazide 25 mg 11/16/20 09:00 01/10/21 09:54 Hydrochlorothiazide 25 Mg Tablet PO 25 mg DAILY RAGHAVENDRA Administration Protocol Nifedipine 60 mg 11/28/20 09:00 01/10/21 09:54 Nifedipine Er 30 Mg Tab.Er.24 PO 60 mg DAILY RAGHAVENDRA Administration Protocol Labs CBC & Chem 7: 11/25/20 05:48 01/03/21 08:32 Microbiology Microbiology Results: Microbiology 11/24/20 08:18 Stool Stool Culture - Final 09/21/20 Unknown Urine clean catch - Clean Catch Midstream Urine Culture - Final No growth. Assessment and Plan (1) Dementia, vascular, mixed: Status: Acute (2) HTN (hypertension): Status: Acute (3) Communicating hydrocephalus: Status: Acute (4) Neurocognitive disorder: Status: Acute (5) Atherosclerotic cardiovascular disease: Status: Acute Assessment and Plan: hospital d#[id number] 85yo F with HTN, HLD, DM2, hypothyroidism, CAD s/p PCI initially admitted with falls, elevated troponin; disposition complicated by cognitive impairment requiring guardianship stable, appears well ambulating in hallway # cognitive impairment - evaluated by psychiatry does need guardianship , had hearing in court 12/14 to assess financial assessment, will have another court date for actual guardianship. # C diff colitis - resolved, s/p 14d of vancomycin treatment # HTN - enalapril, HCTZ, nifedipine, hydralazine # acute grief reaction - due to passing of . met with CARE team # elevated Tn-I with underlying CAD - likely due to HTN + ABELARDO (resolved), seen by Cardiology and recommended medical treatment as stable CAD with ASA + statin; HR too low for B-derrek # DM2 complicated by hypoglycemia - d/c'ed lispro + glimepride; continue MTF alone; A1c only 6.2; does not need fingersticks at this point # hypothyroidism - continue LT4 # VTE ppx - ambulating well multiple times per day, would consider low risk for VTE, now off LMWH # dispo - awaiting guardianship, Basically, the pt's house is not inhabitable [raw sewage backing up into house] and pt does not realize this
[2021-01-10 15:14] VITALS: BP 165/72; PULSE 55
[2021-01-10 16:00] VITALS: BP 180/80; PULSE 66; RESP 14; TEMP 36.2; O2SAT 98
[2021-01-10 20:19] VITALS: BP 180/80; PULSE 66
[2021-01-10] MEDS: Donepezil HCl 5 MG TABLET PO (20:19)
[2021-01-10 23:21] VITALS: BP 142/63; PULSE 66; RESP 18; TEMP 36.6; O2SAT 96
[2021-01-11 07:20] VITALS: BP 159/68; PULSE 66; RESP 17; TEMP 36.4; O2SAT 98
[2021-01-11 07:39] LABS: Glucose, Whole Blood 166 mg/dL (60-115)
[2021-01-11] MEDS: hydrALAZINE HCl 50 MG TABLET 100 MG PO ×3 (09:12→20:03)
[2021-01-11 09:13] VITALS: BP 159/68; PULSE 66
[2021-01-11] MEDS: NIFEdipine ER 30 MG TAB.ER.24 60 MG PO (09:13)
[2021-01-11] MEDS: hydroCHLOROthiazide 25 MG TABLET PO (09:13)
--- NOTE | 2021-01-11 10:07 | HO.PM.IMPN ---
Subjective Subjective Date of Service: 01/11/21 Interval History: no complaints Cardiovascular Cardiovascular: Reports no additional cardiovascular complaints Gastrointestinal Gastrointestinal: Reports no additional gastrointestinal complaints Physical Exam Vital Signs: Vital Signs: Last Vital Signs Temp 97.6 F 01/11/21 07:20 Pulse 66 01/11/21 09:13 Resp 17 01/11/21 07:20 BP 159/68 H 01/11/21 09:13 Pulse Ox 98 01/11/21 07:20 Body Mass Index 20.0 gen: NAD psych: impaired insight Objective Data Current Medications Generic Name Dose Route Start Last Admin Trade Name Srinivas PRN Reason Stop Dose Admin Donepezil HCl 5 mg 12/11/20 21:00 01/10/21 20:19 Donepezil Hcl 5 Mg Tablet PO 5 mg BEDTIME RAGHAVENDRA Administration Hydralazine HCl 100 mg 11/05/20 15:00 01/11/21 09:12 Hydralazine Hcl 50 Mg Tablet PO 100 mg TID RAGHAVENDRA Administration Protocol Hydrochlorothiazide 25 mg 11/16/20 09:00 01/11/21 09:13 Hydrochlorothiazide 25 Mg Tablet PO 25 mg DAILY RAGHAVENDRA Administration Protocol Nifedipine 60 mg 11/28/20 09:00 01/11/21 09:13 Nifedipine Er 30 Mg Tab.Er.24 PO 60 mg DAILY RAGHAVENDRA Administration Protocol Labs CBC & Chem 7: 11/25/20 05:48 01/03/21 08:32 Microbiology Microbiology Results: Microbiology 11/24/20 08:18 Stool Stool Culture - Final 09/21/20 Unknown Urine clean catch - Clean Catch Midstream Urine Culture - Final No growth. Assessment and Plan (1) Dementia, vascular, mixed: Status: Acute (2) HTN (hypertension): Status: Acute (3) Communicating hydrocephalus: Status: Acute (4) Neurocognitive disorder: Status: Acute (5) Atherosclerotic cardiovascular disease: Status: Acute Assessment and Plan: hospital d#113 85yo F with HTN, HLD, DM2, hypothyroidism, CAD s/p PCI initially admitted with falls, elevated troponin; disposition complicated by cognitive impairment requiring guardianship stable, appears well ambulating in hallway # cognitive impairment - evaluated by psychiatry does need guardianship , had hearing in court 12/14 to assess financial assessment, will have another court date for actual guardianship. # C diff colitis - resolved, s/p 14d of vancomycin treatment # HTN - enalapril, HCTZ, nifedipine, hydralazine # acute grief reaction - due to passing of . met with CARE team # elevated Tn-I with underlying CAD - likely due to HTN + ABELARDO (resolved), seen by Cardiology and recommended medical treatment as stable CAD with ASA + statin; HR too low for B-derrek # DM2 complicated by hypoglycemia - d/c'ed lispro + glimepride; continue MTF alone; A1c only 6.2; does not need fingersticks at this point # hypothyroidism - continue LT4 # VTE ppx - ambulating well multiple times per day, would consider low risk for VTE, now off LMWH # dispo - awaiting guardianship, Basically, the pt's house is not inhabitable [raw sewage backing up into house] and pt does not realize this
--- NOTE | 2021-01-11 13:01 | MHC.CARE ---
CARE Team met with Pt to provide support. CARE Team available as needed.
[2021-01-11 15:28] VITALS: BP 157/69; PULSE 71; RESP 16; TEMP 36.5; O2SAT 98
[2021-01-11 15:29] VITALS: BP 157/69; PULSE 69
[2021-01-11 20:03] VITALS: PULSE 69
[2021-01-11] MEDS: Donepezil HCl 5 MG TABLET PO (20:03)
[2021-01-11 23:35] VITALS: BP 141/71; PULSE 68; RESP 18; TEMP 36.2; O2SAT 97
[2021-01-12 07:42] VITALS: BP 155/65; PULSE 69; RESP 16; TEMP 36.1; O2SAT 98
[2021-01-12 08:00] LABS: Glucose, Whole Blood 151 mg/dL (60-115)
[2021-01-12] MEDS: NIFEdipine ER 30 MG TAB.ER.24 60 MG PO (09:07)
[2021-01-12] MEDS: hydrALAZINE HCl 50 MG TABLET 100 MG PO ×3 (09:07→20:45)
[2021-01-12] MEDS: hydroCHLOROthiazide 25 MG TABLET PO (09:07)
--- NOTE | 2021-01-12 09:56 | P.PNIM_ITS ---
Subjective Subjective Date of Service: 01/12/21 Interval History: no complaints Cardiovascular Cardiovascular: Reports no additional cardiovascular complaints Gastrointestinal Gastrointestinal: Reports no additional gastrointestinal complaints Physical Exam Vital Signs: Vital Signs: Last Vital Signs Temp 97.0 F 01/12/21 07:42 Pulse 69 01/12/21 07:42 Resp 16 01/12/21 07:42 BP 155/65 H 01/12/21 07:42 Pulse Ox 98 01/12/21 07:42 Body Mass Index 20.0 gen: NAD psych: impaired insight Objective Data Current Medications Generic Name Dose Route Start Last Admin Trade Name Srinivas PRN Reason Stop Dose Admin Donepezil HCl 5 mg 12/11/20 21:00 01/11/21 20:03 Donepezil Hcl 5 Mg Tablet PO 5 mg BEDTIME RAGHAVENDRA Administration Hydralazine HCl 100 mg 11/05/20 15:00 01/12/21 09:07 Hydralazine Hcl 50 Mg Tablet PO 100 mg TID RAGHAVENDRA Administration Protocol Hydrochlorothiazide 25 mg 11/16/20 09:00 01/12/21 09:07 Hydrochlorothiazide 25 Mg Tablet PO 25 mg DAILY RAGHAVENDRA Administration Protocol Nifedipine 60 mg 11/28/20 09:00 01/12/21 09:07 Nifedipine Er 30 Mg Tab.Er.24 PO 60 mg DAILY RAGHAVENDRA Administration Protocol Labs CBC & Chem 7: 11/25/20 05:48 01/03/21 08:32 Microbiology Microbiology Results: Microbiology 11/24/20 08:18 Stool Stool Culture - Final 09/21/20 Unknown Urine clean catch - Clean Catch Midstream Urine Culture - Final No growth. Assessment and Plan (1) Dementia, vascular, mixed: Status: Acute (2) HTN (hypertension): Status: Acute (3) Communicating hydrocephalus: Status: Acute (4) Neurocognitive disorder: Status: Acute (5) Atherosclerotic cardiovascular disease: Status: Acute Assessment and Plan: hospital d#[id number] 85yo F with HTN, HLD, DM2, hypothyroidism, CAD s/p PCI initially admitted with falls, elevated troponin; disposition complicated by cognitive impairment requiring guardianship stable, appears well # cognitive impairment - evaluated by psychiatry does need guardianship , had hearing in court 12/14 to assess financial assessment, will have another court date for actual gu ardianship. # C diff colitis - resolved, s/p 14d of vancomycin treatment # HTN - enalapril, HCTZ, nifedipine, hydralazine # acute grief reaction - due to passing of . met with CARE team # elevated Tn-I with underlying CAD - likely due to HTN + ABELARDO (resolved), seen by Cardiology and recommended medical treatment as stable CAD with ASA + statin; HR too low for B-derrek # DM2 complicated by hypoglycemia - d/c'ed lispro + glimepride; continue MTF alone; A1c only 6.2; does not need fingersticks at this point # hypothyroidism - continue LT4 # VTE ppx - ambulating well multiple times per day, would consider low risk for VTE, now off LMWH # dispo - awaiting guardianship, Basically, the pt's house is not inhabitable [raw sewage backing up into house] and pt does not realize this
[2021-01-12 15:36] VITALS: BP 169/66; PULSE 97; RESP 16; TEMP 36.5; O2SAT 97
[2021-01-12 20:45] VITALS: BP 170/88; PULSE 80
[2021-01-12] MEDS: Donepezil HCl 5 MG TABLET PO (20:45)
[2021-01-13] VITALS (8 sets, daily range): BP systolic 131–163; BP diastolic 51–90; PULSE 60–70; RESP 16–20; TEMP 36.3–36.8; O2SAT 95–99
[2021-01-13 08:15] LABS: Glucose, Whole Blood 200 mg/dL (60-115)
[2021-01-13] MEDS: hydrALAZINE HCl 50 MG TABLET 100 MG PO ×3 (08:53→20:35)
[2021-01-13] MEDS: NIFEdipine ER 30 MG TAB.ER.24 60 MG PO (08:53)
[2021-01-13] MEDS: hydroCHLOROthiazide 25 MG TABLET PO (08:53)
[2021-01-13] MEDS: Levothyroxine Sodium 75 MCG TABLET PO (09:01)
[2021-01-13] MEDS: metFORMIN HCl 500 MG TABLET PO ×2 (09:02→16:49)
--- NOTE | 2021-01-13 12:54 | HO.PM.IMPN ---
Subjective Subjective Date of Service: 01/13/21 Interval History: no new issues Cardiovascular Cardiovascular: Reports no additional cardiovascular complaints Respiratory Respiratory: Reports no additional respiratory complaints Physical Exam Vital Signs: Vital Signs: Last Vital Signs Temp 97.6 F 01/13/21 08:00 Pulse 62 01/13/21 08:53 Resp 18 01/13/21 08:00 BP 151/69 H 01/13/21 08:53 Pulse Ox 98 01/13/21 08:00 Body Mass Index 20.0 gen: NAD psych: impaired insight Objective Data Current Medications Generic Name Dose Route Start Last Admin Trade Name Sachaq PRN Reason Stop Dose Admin Donepezil HCl 5 mg 12/11/20 21:00 01/12/21 20:45 Donepezil Hcl 5 Mg Tablet PO 5 mg BEDTIME RAGHAVENDRA Administration Hydralazine HCl 100 mg 11/05/20 15:00 01/13/21 08:53 Hydralazine Hcl 50 Mg Tablet PO 100 mg TID RAGHAVENDRA Administration Protocol Hydrochlorothiazide 25 mg 11/16/20 09:00 01/13/21 08:53 Hydrochlorothiazide 25 Mg Tablet PO 25 mg DAILY RAGHAVENDRA Administration Protocol Levothyroxine Sodium 75 mcg 01/13/21 09:00 01/13/21 09:01 Levothyroxine Sodium 75 Mcg Tablet PO 75 mcg DAILY@0600 RAGHAVENDRA Administration Metformin HCl 500 mg 01/13/21 09:00 01/13/21 09:02 Metformin Hcl 500 Mg Tablet PO 500 mg BIDWM RAGHAVENDRA Administration Nifedipine 60 mg 11/28/20 09:00 01/13/21 08:53 Nifedipine Er 30 Mg Tab.Er.24 PO 60 mg DAILY RAGHAVENDRA Administration Protocol Labs CBC & Chem 7: 11/25/20 05:48 01/03/21 08:32 Microbiology Microbiology Results: Microbiology 11/24/20 08:18 Stool Stool Culture - Final 09/21/20 Unknown Urine clean catch - Clean Catch Midstream Urine Culture - Final No growth. Assessment and Plan (1) Dementia, vascular, mixed: Status: Acute (2) HTN (hypertension): Status: Acute (3) Communicating hydrocephalus: Status: Acute (4) Neurocognitive disorder: Status: Acute (5) Atherosclerotic cardiovascular disease: Status: Acute Assessment and Plan: hospital d#115 85yo F with HTN, HLD, DM2, hypothyroidism, CAD s/p PCI initially admitted with falls, elevated troponin; disposition complicated by cognitive impairment requiring guardianship stable, appears well # cognitive impairment - evaluated by psychiatry does need guardianship , had hearing in court 12/14 to assess financial assessment, will have another court date for actual guardianship. # C diff colitis - resolved, s/p 14d of vancomycin treatment # HTN - enalapril, HCTZ, nifedipine, hydralazine # acute grief reaction - due to passing of . met with CARE team # elevated Tn-I with underlying CAD - likely due to HTN + ABELARDO (resolved), seen by Cardiology and recommended medical treatment as stable CAD with ASA + statin; HR too low for B-derrek # DM2 complicated by hypoglycemia - d/c'ed lispro + glimepride; continue MTF alone; A1c only 6.2; does not need fingersticks at this point # hypothyroidism - continue LT4 # VTE ppx - ambulating well multiple times per day, would consider low risk for VTE, now off LMWH # dispo - awaiting guardianship, Basically, the pt's house is not inhabitable [raw sewage backing up into house] and pt does not realize this
[2021-01-13] MEDS: Donepezil HCl 5 MG TABLET PO (20:35)
[2021-01-14] MEDS: Levothyroxine Sodium 75 MCG TABLET PO (05:56)
[2021-01-14 07:49] LABS: Hematocrit 26.2 % (37-47); Hemoglobin 8.6 g/dl (12.0-16.0); Mean Corpuscular HGB Conc 32.8 g/dl (31.0-35.0); Mean Corpuscular Volume 94.6 fL (80-98); Platelet Count 278 X10*3/uL (160-400); Red Blood Count 2.77 X10*6/uL (4.20-5.50); Red Cell Distribution Width 13.6 % (11.0-16.0); White Blood Count 6.4 X10*3/uL (4.8-10.8)
[2021-01-14 07:49] LABS: Glucose, Whole Blood 182 mg/dL (60-115)
[2021-01-14 08:00] VITALS: BP 164/74; PULSE 64; RESP 17; TEMP 36.7; O2SAT 95
[2021-01-14] MEDS: hydroCHLOROthiazide 25 MG TABLET PO (08:24)
[2021-01-14] MEDS: metFORMIN HCl 500 MG TABLET PO ×2 (08:25→16:45)
[2021-01-14] MEDS: NIFEdipine ER 30 MG TAB.ER.24 60 MG PO (08:25)
[2021-01-14] MEDS: hydrALAZINE HCl 50 MG TABLET 100 MG PO ×3 (08:25→20:35)
--- NOTE | 2021-01-14 08:56 | HO.PM.IMPN ---
Subjective Subjective Date of Service: 01/14/21 Interval History: no complaints Respiratory Respiratory: Reports no additional respiratory complaints Gastrointestinal Gastrointestinal: Reports no additional gastrointestinal complaints Physical Exam Vital Signs: Vital Signs: Last Vital Signs Temp 98.1 F 01/14/21 08:00 Pulse 64 01/14/21 08:00 Resp 17 01/14/21 08:00 BP 164/74 H 01/14/21 08:00 Pulse Ox 95 01/14/21 08:00 Body Mass Index 20.0 gen: NAD psych: impaired insight Objective Data Current Medications Generic Name Dose Route Start Last Admin Trade Name Sachaq PRN Reason Stop Dose Admin Donepezil HCl 5 mg 12/11/20 21:00 01/13/21 20:35 Donepezil Hcl 5 Mg Tablet PO 5 mg BEDTIME RAGHAVENDRA Administration Hydralazine HCl 100 mg 11/05/20 15:00 01/14/21 08:25 Hydralazine Hcl 50 Mg Tablet PO 100 mg TID RAGHAVENDRA Administration Protocol Hydrochlorothiazide 25 mg 11/16/20 09:00 01/14/21 08:24 Hydrochlorothiazide 25 Mg Tablet PO 25 mg DAILY RAGHAVENDRA Administration Protocol Levothyroxine Sodium 75 mcg 01/13/21 09:00 01/14/21 05:56 Levothyroxine Sodium 75 Mcg Tablet PO 75 mcg DAILY@0600 RAGHAVENDRA Administration Metformin HCl 500 mg 01/13/21 09:00 01/14/21 08:25 Metformin Hcl 500 Mg Tablet PO 500 mg BIDWM RAGHAVENDRA Administration Nifedipine 60 mg 11/28/20 09:00 01/14/21 08:25 Nifedipine Er 30 Mg Tab.Er.24 PO 60 mg DAILY RAGHAVENDRA Administration Protocol Labs CBC & Chem 7: 01/14/21 07:23 01/03/21 08:32 Microbiology Microbiology Results: Microbiology 11/24/20 08:18 Stool Stool Culture - Final 09/21/20 Unknown Urine clean catch - Clean Catch Midstream Urine Culture - Final No growth. Assessment and Plan (1) Dementia, vascular, mixed: Status: Acute (2) HTN (hypertension): Status: Acute (3) Communicating hydrocephalus: Status: Acute (4) Neurocognitive disorder: Status: Acute (5) Atherosclerotic cardiovascular disease: Status: Acute Assessment and Plan: hospital d#116 85yo F with HTN, HLD, DM2, hypothyroidism, CAD s/p PCI initially admitted with falls, elevated troponin; disposition complicated by cognitive impairment requiring guardianship stable, appears well # cognitive impairment - evaluated by psychiatry does need guardianship , had hearing in court 12/14 to assess financial assessment, will have another court date for actual guardianship. # C diff colitis - resolved, s/p 14d of vancomycin treatment # HTN - enalapril, HCTZ, nifedipine, hydralazine # acute grief reaction - due to passing of . met with CARE team # elevated Tn-I with underlying CAD - likely due to HTN + ABELARDO (resolved), seen by Cardiology and recommended medical treatment as stable CAD with ASA + statin; HR too low for B-derrek # DM2 complicated by hypoglycemia - d/c'ed lispro + glimepride; continue MTF alone; A1c only 6.2; does not need fingersticks at this point # hypothyroidism - continue LT4 # VTE ppx - ambulating well multiple times per day, would consider low risk for VTE, now off LMWH # dispo - awaiting guardianship, Basically, the pt's house is not inhabitable [raw sewage backing up into house] and pt does not realize this
[2021-01-14 09:22] LABS: Anion Gap 13 (12-20); Blood Urea Nitrogen 37 mg/dL (9-16); Calcium 9.5 mg/dL (8.4-10.2); Carbon Dioxide 26 mmol/L (22-29); Chloride 105 mmol/L (96-108); Creatinine Clr Calc Pharmacy 27.4; Estimated Glomerular Filt Rate 41; Glucose Fasting 202 mg/dL (60-99); Potassium 4.3 mmol/L (3.3-5.1); Sodium 140 mmol/L (135-145)
[2021-01-14 15:42] VITALS: BP 164/74; PULSE 73; RESP 20; TEMP 36.4; O2SAT 97
[2021-01-14 20:35] VITALS: BP 195/91; PULSE 88
[2021-01-14] MEDS: Donepezil HCl 5 MG TABLET PO (20:35)
[2021-01-15] VITALS: BP 175/70; PULSE 71; RESP 18; TEMP 36.4; O2SAT 96
[2021-01-15] MEDS: Levothyroxine Sodium 75 MCG TABLET PO (06:35)
[2021-01-15 07:07] VITALS: BP 158/77; PULSE 59; RESP 18; TEMP 36; O2SAT 97
[2021-01-15 07:23] LABS: Glucose, Whole Blood 149 mg/dL (60-115)
--- NOTE | 2021-01-15 09:04 | HO.PM.IMPN ---
Subjective Subjective Date of Service: 01/15/21 Interval History: stable Cardiovascular Cardiovascular: Reports no additional cardiovascular complaints Genitourinary Genitourinary: Reports no additional female genitourinary complaints Physical Exam Vital Signs: Vital Signs: Last Vital Signs Temp 96.8 F 01/15/21 07:07 Pulse 59 01/15/21 07:07 Resp 18 01/15/21 07:07 BP 158/77 H 01/15/21 07:07 Pulse Ox 97 01/15/21 07:07 Body Mass Index 20.0 gen: NAD psych: impaired insight Objective Data Current Medications Generic Name Dose Route Start Last Admin Trade Name Freq PRN Reason Stop Dose Admin Donepezil HCl 5 mg 12/11/20 21:00 01/14/21 20:35 Donepezil Hcl 5 Mg Tablet PO 5 mg BEDTIME RAGHAVENDRA Administration Hydralazine HCl 100 mg 11/05/20 15:00 01/14/21 20:35 Hydralazine Hcl 50 Mg Tablet PO 100 mg TID RAGHAVENDRA Administration Protocol Hydrochlorothiazide 25 mg 11/16/20 09:00 01/14/21 08:24 Hydrochlorothiazide 25 Mg Tablet PO 25 mg DAILY RAGHAVENDRA Administration Protocol Levothyroxine Sodium 75 mcg 01/13/21 09:00 01/15/21 06:35 Levothyroxine Sodium 75 Mcg Tablet PO 75 mcg DAILY@0600 RAGHAVENDRA Administration Metformin HCl 500 mg 01/13/21 09:00 01/14/21 16:45 Metformin Hcl 500 Mg Tablet PO 500 mg BIDWM RAGHAVENDRA Administration Nifedipine 60 mg 11/28/20 09:00 01/14/21 08:25 Nifedipine Er 30 Mg Tab.Er.24 PO 60 mg DAILY RAGHAVENDRA Administration Protocol Labs CBC & Chem 7: 01/14/21 07:23 01/14/21 07:23 Microbiology Microbiology Results: Microbiology 11/24/20 08:18 Stool Stool Culture - Final 09/21/20 Unknown Urine clean catch - Clean Catch Midstream Urine Culture - Final No growth. Assessment and Plan (1) Dementia, vascular, mixed: Status: Acute (2) HTN (hypertension): Status: Acute (3) Communicating hydrocephalus: Status: Acute (4) Neurocognitive disorder: Status: Acute (5) Atherosclerotic cardiovascular disease: Status: Acute Assessment and Plan: hospital d#117 85yo F with HTN, HLD, DM2, hypothyroidism, CAD s/p PCI initially admitted with falls, elevated troponin; disposition complicated by cognitive impairment requiring guardianship stable, appears well # cognitive impairment - evaluated by psychiatry does need guardianship , had hearing in court 12/14 to assess financial assessment, will have another court date for actual guardianship. # C diff colitis - resolved, s/p 14d of vancomycin treatment # HTN - enalapril, HCTZ, nifedipine, hydralazine # acute grief reaction - due to passing of . met with CARE team # elevated Tn-I with underlying CAD - likely due to HTN + ABELARDO (resolved), seen by Cardiology and recommended medical treatment as stable CAD with ASA + statin; HR too low for B-derrek # DM2 complicated by hypoglycemia - d/c'ed lispro + glimepride; continue MTF alone; A1c only 6.2; does not need fingersticks at this point # hypothyroidism - continue LT4 # VTE ppx - ambulating well multiple times per day, would consider low risk for VTE, now off LMWH # dispo - awaiting guardianship, Basically, the pt's house is not inhabitable [raw sewage backing up into house] and pt does not realize this
[2021-01-15] MEDS: hydrALAZINE HCl 50 MG TABLET 100 MG PO ×3 (09:31→20:39)
[2021-01-15] MEDS: hydroCHLOROthiazide 25 MG TABLET PO (09:31)
[2021-01-15] MEDS: NIFEdipine ER 30 MG TAB.ER.24 60 MG PO (09:31)
[2021-01-15] MEDS: metFORMIN HCl 500 MG TABLET PO ×2 (09:31→17:00)
--- NOTE | 2021-01-15 10:33 | MHC.CM.PN ---
pt is in the process of having a guardian appointed. dc plan is ultimately to snf. cm to cont. to follow.
[2021-01-15 11:12] LABS: Glucose, Whole Blood 301 mg/dL (60-115)
[2021-01-15 15:00] VITALS: BMI 20.2
[2021-01-15 15:22] VITALS: BP 155/75; PULSE 70; RESP 16; TEMP 36.5; O2SAT 98
[2021-01-15 20:39] VITALS: BP 155/75; PULSE 70
[2021-01-15] MEDS: Donepezil HCl 5 MG TABLET PO (20:39)
[2021-01-15 23:19] VITALS: BP 149/79; PULSE 71; RESP 20; TEMP 36.4; O2SAT 97
[2021-01-16] MEDS: Levothyroxine Sodium 75 MCG TABLET PO (06:22)
[2021-01-16 07:50] VITALS: BP 168/75; PULSE 63; RESP 18; TEMP 36.6; O2SAT 96
--- NOTE | 2021-01-16 08:58 | HO.PM.IMPN ---
Subjective Subjective Date of Service: 01/16/21 Interval History: no complaints Cardiovascular Cardiovascular: Reports no additional cardiovascular complaints Gastrointestinal Gastrointestinal: Reports no additional gastrointestinal complaints Physical Exam Vital Signs: Vital Signs: Last Vital Signs Temp 97.8 F 01/16/21 07:50 Pulse 63 01/16/21 07:50 Resp 18 01/16/21 07:50 BP 168/75 H 01/16/21 07:50 Pulse Ox 96 01/16/21 07:50 Body Mass Index 20.2 gen: NAD psych: impaired insight Objective Data Current Medications Generic Name Dose Route Start Last Admin Trade Name Srinivas PRN Reason Stop Dose Admin Donepezil HCl 5 mg 12/11/20 21:00 01/15/21 20:39 Donepezil Hcl 5 Mg Tablet PO 5 mg BEDTIME RAGHAVENDRA Administration Hydralazine HCl 100 mg 11/05/20 15:00 01/15/21 20:39 Hydralazine Hcl 50 Mg Tablet PO 100 mg TID RAGHAVENDRA Administration Protocol Hydrochlorothiazide 25 mg 11/16/20 09:00 01/15/21 09:31 Hydrochlorothiazide 25 Mg Tablet PO 25 mg DAILY RAGHAVENDRA Administration Protocol Levothyroxine Sodium 75 mcg 01/13/21 09:00 01/16/21 06:22 Levothyroxine Sodium 75 Mcg Tablet PO 75 mcg DAILY@0600 RAGHAVENDRA Administration Metformin HCl 500 mg 01/13/21 09:00 01/15/21 17:00 Metformin Hcl 500 Mg Tablet PO 500 mg BIDWM RAGHAVENDRA Administration Nifedipine 60 mg 11/28/20 09:00 01/15/21 09:31 Nifedipine Er 30 Mg Tab.Er.24 PO 60 mg DAILY RAGHAVENDRA Administration Protocol Labs CBC & Chem 7: 01/14/21 07:23 01/14/21 07:23 Microbiology Microbiology Results: Microbiology 11/24/20 08:18 Stool Stool Culture - Final 09/21/20 Unknown Urine clean catch - Clean Catch Midstream Urine Culture - Final No growth. Assessment and Plan (1) Dementia, vascular, mixed: Status: Acute (2) HTN (hypertension): Status: Acute (3) Communicating hydrocephalus: Status: Acute (4) Neurocognitive disorder: Status: Acute (5) Atherosclerotic cardiovascular disease: Status: Acute Assessment and Plan: hospital d#118 85yo F with HTN, HLD, DM2, hypothyroidism, CAD s/p PCI initially admitted with falls, elevated troponin; disposition complicated by cognitive impairment requiring guardianship stable, appears well # cognitive impairment - evaluated by psychiatry does need guardianship , had hearing in court 12/14 to assess financial assessment, will have another court date for actual guardianship. # C diff colitis - resolved, s/p 14d of vancomycin treatment # HTN - enalapril, HCTZ, nifedipine, hydralazine # acute grief reaction - due to passing of . met with CARE team # elevated Tn-I with underlying CAD - likely due to HTN + ABELARDO (resolved), seen by Cardiology and recommended medical treatment as stable CAD with ASA + statin; HR too low for B-derrek # DM2 complicated by hypoglycemia - d/c'ed lispro + glimepride; continue MTF alone; A1c only 6.2; does not need fingersticks at this point # hypothyroidism - continue LT4 # VTE ppx - ambulating well multiple times per day, would consider low risk for VTE, now off LMWH # dispo - awaiting guardianship, Basically, the pt's house is not inhabitable [raw sewage backing up into house] and pt does not realize this
[2021-01-16] MEDS: hydroCHLOROthiazide 25 MG TABLET PO (09:37)
[2021-01-16] MEDS: metFORMIN HCl 500 MG TABLET PO ×2 (09:37→16:43)
[2021-01-16] MEDS: NIFEdipine ER 30 MG TAB.ER.24 60 MG PO (09:37)
[2021-01-16] MEDS: hydrALAZINE HCl 50 MG TABLET 100 MG PO ×3 (09:37→20:42)
--- NOTE | 2021-01-16 15:35 | MHC.CARE ---
CARE Team went to patient's room twice today and she was not there. Most recently, patient was reported to be visiting in another patient's room. Please call CARE Team if patient needs a supportive contact.
[2021-01-16 15:44] VITALS: BP 179/80; PULSE 70; RESP 16; TEMP 36.4; O2SAT 98
[2021-01-16 20:42] VITALS: BP 179/80; PULSE 70
[2021-01-16] MEDS: Donepezil HCl 5 MG TABLET PO (20:42)
[2021-01-17] VITALS: BP 144/68; PULSE 76; RESP 16; TEMP 36.3; O2SAT 99
[2021-01-17 05:06] VITALS: BP 143/67; PULSE 62; RESP 16; TEMP 36.3; O2SAT 96
[2021-01-17] MEDS: Levothyroxine Sodium 75 MCG TABLET PO (05:45)
[2021-01-17 07:27] VITALS: BP 174/77; PULSE 64; RESP 17; TEMP 36.4; O2SAT 95
[2021-01-17 08:38] VITALS: BP 160/60; PULSE 66
[2021-01-17] MEDS: hydrALAZINE HCl 50 MG TABLET 100 MG PO ×3 (08:38→21:22)
[2021-01-17] MEDS: metFORMIN HCl 500 MG TABLET PO ×2 (08:38→16:06)
[2021-01-17] MEDS: NIFEdipine ER 30 MG TAB.ER.24 60 MG PO (08:38)
[2021-01-17] MEDS: hydroCHLOROthiazide 25 MG TABLET PO (08:39)
--- NOTE | 2021-01-17 14:07 | HO.PM.IMPN ---
Subjective Subjective Date of Service: 01/17/21 Interval History: The patient was seen this morning Denies any fever, chills or shortness of breath No reported other overnight events. Systemic review: No fever, chills or weakness No chest pain, palpitation No shortness of breath or coughing No abdominal pain, nausea or vomiting No urinary symptoms Physical Exam Vital Signs: Vital Signs: Last Vital Signs Temp 97.6 F 01/17/21 07:27 Pulse 66 01/17/21 08:38 Resp 17 01/17/21 07:27 BP 160/60 H 01/17/21 08:38 Pulse Ox 95 01/17/21 07:27 Body Mass Index 20.2 Const: Other: Constitutional : Alert, not in distress Cardiovascular : No JVP, no lower extremity edema Respiratory : Chest wall moving bilaterally, not in respiratory distress Gastrointestinal: soft, lax, Non tender Neurological : Alert , interactive, No focal deficit Objective Data Current Medications Generic Name Dose Route Start Last Admin Trade Name Freq PRN Reason Stop Dose Admin Donepezil HCl 5 mg 12/11/20 21:00 01/16/21 20:42 Donepezil Hcl 5 Mg Tablet PO 5 mg BEDTIME RAGHAVENDRA Administration Hydralazine HCl 100 mg 11/05/20 15:00 01/17/21 08:38 Hydralazine Hcl 50 Mg Tablet PO 100 mg TID RAGHAVENDRA Administration Protocol Hydrochlorothiazide 25 mg 11/16/20 09:00 01/17/21 08:39 Hydrochlorothiazide 25 Mg Tablet PO 25 mg DAILY RAGHAVENDRA Administration Protocol Levothyroxine Sodium 75 mcg 01/13/21 09:00 01/17/21 05:45 Levothyroxine Sodium 75 Mcg Tablet PO 75 mcg DAILY@0600 RAGHAVENDRA Administration Metformin HCl 500 mg 01/13/21 09:00 01/17/21 08:38 Metformin Hcl 500 Mg Tablet PO 500 mg BIDWM RAGHAVENDRA Administration Nifedipine 60 mg 11/28/20 09:00 01/17/21 08:38 Nifedipine Er 30 Mg Tab.Er.24 PO 60 mg DAILY RAGHAVENDRA Administration Protocol Labs CBC & Chem 7: 01/14/21 07:23 01/14/21 07:23 Microbiology Microbiology Results: Microbiology 11/24/20 08:18 Stool Stool Culture - Final 09/21/20 Unknown Urine clean catch - Clean Catch Midstream Urine Culture - Final No growth. Assessment and Plan (1) Dementia, vascular, mixed: Status: Acute (2) HTN (hypertension): Status: Acute (3) Communicating hydrocephalus: Status: Acute (4) Neurocognitive disorder: Status: Acute (5) Atherosclerotic cardiovascular disease: Status: Acute Assessment and Plan: hospital d#119 85yo F with HTN, HLD, DM2, hypothyroidism, CAD s/p PCI initially admitted with falls, elevated troponin; disposition complicated by cognitive impairment requiring guardianship # cognitive impairment - evaluated by psychiatry does need guardianship , had hearing in court 12/14 to assess financial assessment, will have another court date for actual guardianship. # C diff colitis - resolved, s/p 14d of vancomycin treatment # HTN - enalapril, HCTZ, nifedipine, hydralazine # acute grief reaction - due to passing of . met with CARE team # Hx CAD - ASA + statin; HR too low for B-derrek # DM2 complicated by hypoglycemia - d/c'ed lispro + glimepride; continue MTF alone; A1c only 6.2; does not need fingersticks at this point # hypothyroidism - continue LT4 # VTE ppx - ambulating well multiple times per day, would consider low risk for VTE, now off LMWH # dispo - awaiting guardianship, Basically, the pt's house is not inhabitable [raw sewage backing up into house] and pt does not realize this
[2021-01-17 15:51] VITALS: BP 178/80; PULSE 78; RESP 20; TEMP 36.3; O2SAT 97
[2021-01-17] MEDS: Donepezil HCl 5 MG TABLET PO (21:22)
[2021-01-17 23:52] VITALS: BP 170/60; PULSE 74; RESP 15; TEMP 36.6; O2SAT 96
[2021-01-18] MEDS: Levothyroxine Sodium 75 MCG TABLET PO (06:03)
[2021-01-18 07:30] VITALS: BP 177/88; PULSE 66; RESP 16; TEMP 36.7; O2SAT 97
[2021-01-18] MEDS: hydrALAZINE HCl 50 MG TABLET 100 MG PO ×3 (09:24→21:17)
[2021-01-18] MEDS: hydroCHLOROthiazide 25 MG TABLET PO (09:25)
[2021-01-18] MEDS: metFORMIN HCl 500 MG TABLET PO ×2 (09:25→16:42)
[2021-01-18] MEDS: NIFEdipine ER 30 MG TAB.ER.24 60 MG PO (09:25)
--- NOTE | 2021-01-18 13:26 | HO.PM.IMPN ---
Subjective Subjective Date of Service: 01/18/21 Interval History: The patient was seen this morning Denies any fever, chills or shortness of breath No reported other overnight events. Systemic review: No fever, chills or weakness No chest pain, palpitation No shortness of breath or coughing No abdominal pain, nausea or vomiting No urinary symptoms Physical Exam Vital Signs: Vital Signs: Last Vital Signs Temp 98.0 F 01/18/21 07:30 Pulse 66 01/18/21 07:30 Resp 16 01/18/21 07:30 BP 177/88 H 01/18/21 07:30 Pulse Ox 97 01/18/21 07:30 Body Mass Index 20.2 Const: Other: Constitutional : Alert, not in distress Cardiovascular : No JVP, no lower extremity edema Respiratory : Chest wall moving bilaterally, not in respiratory distress Gastrointestinal: soft, lax, Non tender Neurological : Alert , interactive, No focal deficit Objective Data Current Medications Generic Name Dose Route Start Last Admin Trade Name Freq PRN Reason Stop Dose Admin Donepezil HCl 5 mg 12/11/20 21:00 01/17/21 21:22 Donepezil Hcl 5 Mg Tablet PO 5 mg BEDTIME RAGHAVENDRA Administration Hydralazine HCl 100 mg 11/05/20 15:00 01/18/21 09:24 Hydralazine Hcl 50 Mg Tablet PO 100 mg TID RAGHAVENDRA Administration Protocol Hydrochlorothiazide 25 mg 11/16/20 09:00 01/18/21 09:25 Hydrochlorothiazide 25 Mg Tablet PO 25 mg DAILY RAGHAVENDRA Administration Protocol Levothyroxine Sodium 75 mcg 01/13/21 09:00 01/18/21 06:03 Levothyroxine Sodium 75 Mcg Tablet PO 75 mcg DAILY@0600 RAGHAVENDRA Administration Metformin HCl 500 mg 01/13/21 09:00 01/18/21 09:25 Metformin Hcl 500 Mg Tablet PO 500 mg BIDWM RAGHAVENDRA Administration Nifedipine 60 mg 11/28/20 09:00 01/18/21 09:25 Nifedipine Er 30 Mg Tab.Er.24 PO 60 mg DAILY RAGHAVENDRA Administration Protocol Labs CBC & Chem 7: 01/14/21 07:23 01/14/21 07:23 Microbiology Microbiology Results: Microbiology 11/24/20 08:18 Stool Stool Culture - Final 09/21/20 Unknown Urine clean catch - Clean Catch Midstream Urine Culture - Final No growth. Assessment and Plan (1) Dementia, vascular, mixed: Status: Acute (2) HTN (hypertension): Status: Acute (3) Communicating hydrocephalus: Status: Acute (4) Neurocognitive disorder: Status: Acute (5) Atherosclerotic cardiovascular disease: Status: Acute Assessment and Plan: hospital d#120 85yo F with HTN, HLD, DM2, hypothyroidism, CAD s/p PCI initially admitted with falls, elevated troponin; disposition complicated by cognitive impairment requiring guardianship # cognitive impairment - evaluated by psychiatry does need guardianship , had hearing in court 12/14 to assess financial assessment, will have another court date for actual guardianship. # C diff colitis - resolved, s/p 14d of vancomycin treatment # uncontrolled HTN - enalapril, HCTZ, hydralazine - increase nifedipine to 90 mg daily # acute grief reaction - due to passing of . met with CARE team # Hx CAD - ASA + statin; HR too low for B-derrek # DM2 complicated by hypoglycemia - d/c'ed lispro + glimepride; continue MTF alone; A1c only 6.2; does not need fingersticks at this point # hypothyroidism - continue LT4 # VTE ppx - ambulating well multiple times per day, would consider low risk for VTE, now off LMWH # dispo - awaiting guardianship, Basically, the pt's house is not inhabitable [raw sewage backing up into house] and pt does not realize this
--- NOTE | 2021-01-18 14:40 | MHC.CM.PN ---
Addendum entered by Martha Snow 01/18/21 15:44: received call back from JODI RAJPUT COURT APPOINTED CONSERVATOR ; 1. money secured home for burial of pearl anticipate next Friday or , 2. the septic system was assessed and failed title 5 does not meet current code requirements and very costly 3. she has looked into getting a permit to connect the house to public water. this too is very costly for applying permit 4. in regards to the barn what was able to be sold was and the barn was condemned, and will need to be demolished, this too is also very costly 5. Jodi has applied to the courts for special permission her safe deposit box open Jodi reported she will get back to coworker and myself about finalized arrangements . Original Note: nurse managed care specialist note electronic medical record reviewed along with case discussed with staff nurse , called to patients court appointed conservator jodi rajput [phone] message left for her to clal me back with updates
[2021-01-18 15:00] VITALS: BMI 19.2
[2021-01-18 15:38] VITALS: BP 178/75; PULSE 62; RESP 20; TEMP 36.6; O2SAT 97
[2021-01-18 21:17] VITALS: BP 184/80; PULSE 73
[2021-01-18] MEDS: Donepezil HCl 5 MG TABLET PO (21:17)
[2021-01-18 23:42] VITALS: BP 143/67; PULSE 64; RESP 16; TEMP 36.4; O2SAT 98
[2021-01-19] MEDS: Levothyroxine Sodium 75 MCG TABLET PO (05:36)
[2021-01-19 07:42] VITALS: BP 182/73; PULSE 67; RESP 17; TEMP 36.4; O2SAT 96
[2021-01-19] MEDS: hydrALAZINE HCl 50 MG TABLET 100 MG PO ×3 (07:59→21:34)
[2021-01-19] MEDS: metFORMIN HCl 500 MG TABLET PO ×2 (08:00→17:31)
[2021-01-19] MEDS: NIFEdipine ER 30 MG TAB.ER.24 90 MG PO (08:00)
[2021-01-19] MEDS: hydroCHLOROthiazide 25 MG TABLET PO (08:00)
--- NOTE | 2021-01-19 14:10 | HO.PM.IMPN ---
Subjective Subjective Date of Service: 01/19/21 Interval History: The patient was seen this morning Denies any fever, chills or shortness of breath No reported other overnight events. Systemic review: No fever, chills or weakness No chest pain, palpitation No shortness of breath or coughing No abdominal pain, nausea or vomiting No urinary symptoms Physical Exam Vital Signs: Vital Signs: Last Vital Signs Temp 97.6 F 01/19/21 07:42 Pulse 67 01/19/21 07:42 Resp 17 01/19/21 07:42 BP 182/73 H 01/19/21 07:42 Pulse Ox 96 01/19/21 07:42 Body Mass Index 19.2 Const: Other: Constitutional : Alert, not in distress Cardiovascular : No JVP, no lower extremity edema Respiratory : Chest wall moving bilaterally, not in respiratory distress Gastrointestinal: soft, lax, Non tender Neurological : Alert , interactive, No focal deficit Objective Data Current Medications Generic Name Dose Route Start Last Admin Trade Name Freq PRN Reason Stop Dose Admin Donepezil HCl 5 mg 12/11/20 21:00 01/18/21 21:17 Donepezil Hcl 5 Mg Tablet PO 5 mg BEDTIME RAGHAVENDRA Administration Hydralazine HCl 100 mg 11/05/20 15:00 01/19/21 07:59 Hydralazine Hcl 50 Mg Tablet PO 100 mg TID RAGHAVENDRA Administration Protocol Hydrochlorothiazide 25 mg 11/16/20 09:00 01/19/21 08:00 Hydrochlorothiazide 25 Mg Tablet PO 25 mg DAILY RAGHAVENDRA Administration Protocol Levothyroxine Sodium 75 mcg 01/13/21 09:00 01/19/21 05:36 Levothyroxine Sodium 75 Mcg Tablet PO 75 mcg DAILY@0600 RAGHAVENDRA Administration Metformin HCl 500 mg 01/13/21 09:00 01/19/21 08:00 Metformin Hcl 500 Mg Tablet PO 500 mg BIDWM RAGHAVENDRA Administration Nifedipine 90 mg 01/19/21 09:00 01/19/21 08:00 Nifedipine Er 30 Mg Tab.Er.24 PO 90 mg DAILY RAGHAVENDRA Administration Protocol Labs CBC & Chem 7: 01/14/21 07:23 01/14/21 07:23 Microbiology Microbiology Results: Microbiology 11/24/20 08:18 Stool Stool Culture - Final 09/21/20 Unknown Urine clean catch - Clean Catch Midstream Urine Culture - Final No growth. Assessment and Plan (1) Dementia, vascular, mixed: Status: Acute (2) HTN (hypertension): Status: Acute (3) Communicating hydrocephalus: Status: Acute (4) Neurocognitive disorder: Status: Acute (5) Atherosclerotic cardiovascular disease: Status: Acute Assessment and Plan: hospital d#121 85yo F with HTN, HLD, DM2, hypothyroidism, CAD s/p PCI initially admitted with falls, elevated troponin; disposition complicated by cognitive impairment requiring guardianship # cognitive impairment - evaluated by psychiatry does need guardianship , had hearing in court 12/14 to assess financial assessment, will have another court date for actual guardianship. # C diff colitis - resolved, s/p 14d of vancomycin treatment # uncontrolled HTN - enalapril, HCTZ, hydralazine - increase nifedipine to 90 mg daily # acute grief reaction - due to passing of . met with CARE team # Hx CAD - ASA + statin; HR too low for B-derrek # DM2 complicated by hypoglycemia - d/c'ed lispro + glimepride; continue MTF alone; A1c only 6.2; does not need fingersticks at this point # hypothyroidism - continue LT4 # VTE ppx - ambulating well multiple times per day, would consider low risk for VTE, now off LMWH # dispo - awaiting guardianship, Basically, the pt's house is not inhabitable [raw sewage backing up into house] and pt does not realize this
[2021-01-19 14:25] VITALS: BP 158/72; PULSE 87; RESP 18
[2021-01-19 15:11] VITALS: BP 156/73; PULSE 70; RESP 15; TEMP 36.4; O2SAT 97
[2021-01-19 21:34] VITALS: BP 156/73; PULSE 70
[2021-01-19] MEDS: Donepezil HCl 5 MG TABLET PO (21:34)
[2021-01-19 23:41] VITALS: BP 125/50; PULSE 66; RESP 16; TEMP 36.6; O2SAT 97
[2021-01-20] MEDS: Levothyroxine Sodium 75 MCG TABLET PO (06:29)
[2021-01-20 07:26] VITALS: BP 162/84; PULSE 60; RESP 16; TEMP 36.4; O2SAT 98
[2021-01-20 07:57] LABS: Glucose, Whole Blood 120 mg/dL (60-115)
[2021-01-20] MEDS: metFORMIN HCl 500 MG TABLET PO ×2 (09:07→16:24)
[2021-01-20 09:08] VITALS: BP 162/84; PULSE 60
[2021-01-20] MEDS: hydrALAZINE HCl 50 MG TABLET 100 MG PO ×3 (09:08→20:26)
[2021-01-20] MEDS: hydroCHLOROthiazide 50 MG TABLET PO (09:08)
[2021-01-20] MEDS: NIFEdipine ER 30 MG TAB.ER.24 90 MG PO (09:08)
[2021-01-20 09:39] LABS: Anion Gap 18 (12-20); Blood Urea Nitrogen 37 mg/dL (9-16); Calcium 9.2 mg/dL (8.4-10.2); Carbon Dioxide 21 mmol/L (22-29); Chloride 105 mmol/L (96-108); Creatinine Clr Calc Pharmacy 27.6; Estimated Glomerular Filt Rate 43; Glucose Random 237 mg/dL (60-115); Potassium 4.6 mmol/L (3.3-5.1); Sodium 139 mmol/L (135-145)
--- NOTE | 2021-01-20 12:54 | HO.PM.IMPN ---
Subjective Subjective Date of Service: 01/20/21 Interval History: The patient was seen this morning Walking in the [place] using her walker Denies any fever, chills or shortness of breath No reported other overnight events. Systemic review: No fever, chills or weakness No chest pain, palpitation No shortness of breath or coughing No abdominal pain, nausea or vomiting Physical Exam Vital Signs: Vital Signs: Last Vital Signs Temp 97.5 F 01/20/21 07:26 Pulse 60 01/20/21 09:08 Resp 16 01/20/21 07:26 BP 162/84 H 01/20/21 09:08 Pulse Ox 98 01/20/21 07:26 Body Mass Index 19.2 Const: Other: Constitutional : Alert, not in distress Cardiovascular : No JVP, no lower extremity edema Respiratory : Chest wall moving bilaterally, not in respiratory distress Neurological : Alert , interactive, No focal deficit Objective Data Current Medications Generic Name Dose Route Start Last Admin Trade Name Freq PRN Reason Stop Dose Admin Donepezil HCl 5 mg 12/11/20 21:00 01/19/21 21:34 Donepezil Hcl 5 Mg Tablet PO 5 mg BEDTIME RAGHAVENDRA Administration Hydralazine HCl 100 mg 11/05/20 15:00 01/20/21 09:08 Hydralazine Hcl 50 Mg Tablet PO 100 mg TID RAGHAVENDRA Administration Protocol Hydrochlorothiazide 50 mg 01/20/21 09:00 01/20/21 09:08 Hydrochlorothiazide 50 Mg Tablet PO 50 mg DAILY RAGHAVENDRA Administration Protocol Levothyroxine Sodium 75 mcg 01/13/21 09:00 01/20/21 06:29 Levothyroxine Sodium 75 Mcg Tablet PO 75 mcg DAILY@0600 RAGHAVENDRA Administration Metformin HCl 500 mg 01/13/21 09:00 01/20/21 09:07 Metformin Hcl 500 Mg Tablet PO 500 mg BIDWM RAGHAVENDRA Administration Nifedipine 90 mg 01/19/21 09:00 01/20/21 09:08 Nifedipine Er 30 Mg Tab.Er.24 PO 90 mg DAILY RAGHAVENDRA Administration Protocol Labs CBC & Chem 7: 01/14/21 07:23 01/20/21 08:22 Microbiology Microbiology Results: Microbiology 11/24/20 08:18 Stool Stool Culture - Final 09/21/20 Unknown Urine clean catch - Clean Catch Midstream Urine Culture - Final No growth. Assessment and Plan (1) Dementia, vascular, mixed: Status: Acute (2) HTN (hypertension): Status: Acute (3) Communicating hydrocephalus: Status: Acute (4) Neurocognitive disorder: Status: Acute (5) Atherosclerotic cardiovascular disease: Status: Acute Assessment and Plan: hospital d#121 85yo F with HTN, HLD, DM2, hypothyroidism, CAD s/p PCI initially admitted with falls, elevated troponin; disposition complicated by cognitive impairment requiring guardianship # cognitive impairment - evaluated by psychiatry does need guardianship , had hearing in court 12/14 to assess financial assessment - Pending another court date for actual guardianship. # C diff colitis - resolved, s/p 14d of vancomycin treatment # uncontrolled HTN - enalapril, HCTZ, hydralazine - increase nifedipine to 90 mg daily - Increase HCTz to 50 # acute grief reaction - due to passing of . met with CARE team # Hx CAD - ASA + statin; HR too low for B-derrek # DM2 complicated by hypoglycemia - d/c'ed lispro + glimepride; continue MTF alone; A1c only 6.2; does not need fingersticks at this point # hypothyroidism - continue LT4 # VTE ppx - ambulating well multiple times per day, would consider low risk for VTE, now off LMWH # dispo - awaiting guardianship, Basically, the pt's house is not inhabitable [raw sewage backing up into house] and pt does not realize this
[2021-01-20 16:00] VITALS: BP 153/73; PULSE 62; RESP 18; TEMP 36.8; O2SAT 98
[2021-01-20 16:24] VITALS: BP 153/73; PULSE 62
[2021-01-20 20:26] VITALS: BP 179/91; PULSE 77
[2021-01-20] MEDS: Donepezil HCl 5 MG TABLET PO (20:26)
[2021-01-20 23:33] VITALS: BP 140/57; PULSE 64; RESP 16; TEMP 36.4; O2SAT 96
[2021-01-21] MEDS: Levothyroxine Sodium 75 MCG TABLET PO (05:41)
[2021-01-21 07:20] VITALS: BP 142/67; PULSE 61; RESP 16; TEMP 36.4; O2SAT 97
[2021-01-21 07:53] LABS: Glucose, Whole Blood 153 mg/dL (60-115)
[2021-01-21 08:07] VITALS: BP 142/67; PULSE 61
[2021-01-21] MEDS: hydroCHLOROthiazide 50 MG TABLET PO (08:07)
[2021-01-21] MEDS: NIFEdipine ER 30 MG TAB.ER.24 90 MG PO (08:07)
[2021-01-21] MEDS: hydrALAZINE HCl 50 MG TABLET 100 MG PO ×3 (08:07→21:29)
[2021-01-21] MEDS: metFORMIN HCl 500 MG TABLET PO ×2 (08:07→18:05)
--- NOTE | 2021-01-21 10:11 | MHC.CARE ---
CARE Team met with Pt to provide support.
--- NOTE | 2021-01-21 11:19 | HO.PM.IMPN ---
Subjective Subjective Date of Service: 01/21/21 Interval History: The patient was seen this morning No reported fever, chills or shortness of breath No reported other overnight events. Systemic review: No fever, chills or weakness No chest pain, palpitation No shortness of breath or coughing No abdominal pain, nausea or vomiting Physical Exam Vital Signs: Vital Signs: Last Vital Signs Temp 97.5 F 01/21/21 07:20 Pulse 61 01/21/21 08:07 Resp 16 01/21/21 07:20 BP 142/67 H 01/21/21 08:07 Pulse Ox 97 01/21/21 07:20 Body Mass Index 19.2 Const: Other: Constitutional : Alert, not in distress Cardiovascular : No JVP, no lower extremity edema Respiratory : Chest wall moving bilaterally, not in respiratory distress Neurological : Alert , interactive, No focal deficit Objective Data Current Medications Generic Name Dose Route Start Last Admin Trade Name Freq PRN Reason Stop Dose Admin Donepezil HCl 5 mg 12/11/20 21:00 01/20/21 20:26 Donepezil Hcl 5 Mg Tablet PO 5 mg BEDTIME RAGHAVENDRA Administration Hydralazine HCl 100 mg 11/05/20 15:00 01/21/21 08:07 Hydralazine Hcl 50 Mg Tablet PO 100 mg TID RAGHAVENDRA Administration Protocol Hydrochlorothiazide 50 mg 01/20/21 09:00 01/21/21 08:07 Hydrochlorothiazide 50 Mg Tablet PO 50 mg DAILY RAGHAVENDRA Administration Protocol Levothyroxine Sodium 75 mcg 01/13/21 09:00 01/21/21 05:41 Levothyroxine Sodium 75 Mcg Tablet PO 75 mcg DAILY@0600 RAGHAVENDRA Administration Metformin HCl 500 mg 01/13/21 09:00 01/21/21 08:07 Metformin Hcl 500 Mg Tablet PO 500 mg BIDWM RAGHAVENDRA Administration Nifedipine 90 mg 01/19/21 09:00 01/21/21 08:07 Nifedipine Er 30 Mg Tab.Er.24 PO 90 mg DAILY RAGHAVENDRA Administration Protocol Labs CBC & Chem 7: 01/14/21 07:23 01/20/21 08:22 Microbiology Microbiology Results: Microbiology 11/24/20 08:18 Stool Stool Culture - Final 09/21/20 Unknown Urine clean catch - Clean Catch Midstream Urine Culture - Final No growth. Assessment and Plan (1) Dementia, vascular, mixed: Status: Acute (2) HTN (hypertension): Status: Acute (3) Communicating hydrocephalus: Status: Acute (4) Neurocognitive disorder: Status: Acute (5) Atherosclerotic cardiovascular disease: Status: Acute Assessment and Plan: hospital d#[id number] 85yo F with HTN, HLD, DM2, hypothyroidism, CAD s/p PCI initially admitted with falls, elevated troponin; disposition complicated by cognitive impairment requiring guardianship # cognitive impairment - evaluated by psychiatry does need guardianship , had hearing in court 12/14 to assess financial assessment - Pending another court date for actual guardianship. # C diff colitis - resolved, s/p 14d of vancomycin treatment # uncontrolled HTN - enalapril, HCTZ, hydralazine - increase nifedipine to 90 mg daily - Increase HCTz to 50 # acute grief reaction - due to passing of . met with CARE team # Hx CAD - ASA + statin; HR too low for B-derrek # DM2 complicated by hypoglycemia - d/c'ed lispro + glimepride; continue MTF alone; A1c only 6.2; does not need fingersticks at this point # hypothyroidism - continue LT4 # VTE ppx - ambulating well multiple times per day, would consider low risk for VTE, now off LMWH # dispo - awaiting guardianship, Basically, the pt's house is not inhabitable [raw sewage backing up into house] and pt does not realize this
[2021-01-21 14:03] VITALS: BMI 19.5
[2021-01-21 14:56] VITALS: BP 175/74; PULSE 70; RESP 14; TEMP 36; O2SAT 98
[2021-01-21 18:05] VITALS: BP 175/74; PULSE 70
[2021-01-21 21:29] VITALS: BP 157/91; PULSE 79
[2021-01-21] MEDS: Donepezil HCl 5 MG TABLET PO (21:29)
[2021-01-22] VITALS: BP 138/51; PULSE 69; RESP 18; TEMP 36.9; O2SAT 98
[2021-01-22] MEDS: Levothyroxine Sodium 75 MCG TABLET PO (05:26)
[2021-01-22 07:33] LABS: Anion Gap 13 (12-20); Blood Urea Nitrogen 39 mg/dL (9-16); Calcium 8.7 mg/dL (8.4-10.2); Carbon Dioxide 26 mmol/L (22-29); Chloride 106 mmol/L (96-108); Creatinine Clr Calc Pharmacy 26.7; Estimated Glomerular Filt Rate 41; Glucose Random 169 mg/dL (60-115); Potassium 3.8 mmol/L (3.3-5.1); Sodium 141 mmol/L (135-145)
[2021-01-22 08:00] VITALS: BP 151/69; PULSE 60; RESP 17; TEMP 36.4; O2SAT 97
[2021-01-22] MEDS: NIFEdipine ER 30 MG TAB.ER.24 90 MG PO (09:51)
[2021-01-22] MEDS: hydrALAZINE HCl 50 MG TABLET 100 MG PO ×3 (09:51→21:43)
[2021-01-22] MEDS: hydroCHLOROthiazide 50 MG TABLET PO (09:51)
[2021-01-22] MEDS: metFORMIN HCl 500 MG TABLET PO ×2 (09:51→16:05)
--- NOTE | 2021-01-22 13:38 | HO.PM.IMPN ---
Subjective Subjective Date of Service: 01/22/21 Interval History: The patient was seen this morning No reported fever, chills or shortness of breath No reported other overnight events. Systemic review: No fever, chills or weakness No chest pain, palpitation No shortness of breath or coughing No abdominal pain, nausea or vomiting Physical Exam Vital Signs: Vital Signs: Last Vital Signs Temp 97.6 F 01/22/21 08:00 Pulse 60 01/22/21 08:00 Resp 17 01/22/21 08:00 BP 151/69 H 01/22/21 08:00 Pulse Ox 97 01/22/21 08:00 Body Mass Index 19.5 Const: Other: Constitutional : Alert, not in distress Cardiovascular : No JVP, no lower extremity edema Respiratory : Chest wall moving bilaterally, not in respiratory distress Neurological : Alert , interactive, No focal deficit Objective Data Current Medications Generic Name Dose Route Start Last Admin Trade Name Freq PRN Reason Stop Dose Admin Donepezil HCl 5 mg 12/11/20 21:00 01/21/21 21:29 Donepezil Hcl 5 Mg Tablet PO 5 mg BEDTIME RAGHAVENDRA Administration Hydralazine HCl 100 mg 11/05/20 15:00 01/22/21 09:51 Hydralazine Hcl 50 Mg Tablet PO 100 mg TID RAGHAVENDRA Administration Protocol Hydrochlorothiazide 50 mg 01/20/21 09:00 01/22/21 09:51 Hydrochlorothiazide 50 Mg Tablet PO 50 mg DAILY RAGHAVENDRA Administration Protocol Levothyroxine Sodium 75 mcg 01/13/21 09:00 01/22/21 05:26 Levothyroxine Sodium 75 Mcg Tablet PO 75 mcg DAILY@0600 RAGHAVENDRA Administration Metformin HCl 500 mg 01/13/21 09:00 01/22/21 09:51 Metformin Hcl 500 Mg Tablet PO 500 mg BIDWM RAGHAVENDRA Administration Nifedipine 90 mg 01/19/21 09:00 01/22/21 09:51 Nifedipine Er 30 Mg Tab.Er.24 PO 90 mg DAILY RAGHAVENDRA Administration Protocol Labs CBC & Chem 7: 01/14/21 07:23 01/22/21 06:22 Microbiology Microbiology Results: Microbiology 11/24/20 08:18 Stool Stool Culture - Final 09/21/20 Unknown Urine clean catch - Clean Catch Midstream Urine Culture - Final No growth. Assessment and Plan (1) Dementia, vascular, mixed: Status: Acute (2) HTN (hypertension): Status: Acute (3) Communicating hydrocephalus: Status: Acute (4) Neurocognitive disorder: Status: Acute (5) Atherosclerotic cardiovascular disease: Status: Acute Assessment and Plan: hospital d#[id number] 85yo F with HTN, HLD, DM2, hypothyroidism, CAD s/p PCI initially admitted with falls, elevated troponin; disposition complicated by cognitive impairment requiring guardianship # cognitive impairment - evaluated by psychiatry does need guardianship , had hearing in court 12/14 to assess financial assessment - Pending another court date for actual guardianship. # C diff colitis - resolved, s/p 14d of vancomycin treatment # uncontrolled HTN - enalapril, HCTZ, hydralazine - increase nifedipine to 90 mg daily - Increase HCTz to 50 # acute grief reaction - due to passing of . met with CARE team # Hx CAD - ASA + statin; HR too low for B-derrek # DM2 complicated by hypoglycemia - d/c'ed lispro + glimepride; continue MTF alone; A1c only 6.2; does not need fingersticks at this point # hypothyroidism - continue LT4 # VTE ppx - ambulating well multiple times per day, would consider low risk for VTE, now off LMWH # dispo - awaiting guardianship, Basically, the pt's house is not inhabitable [raw sewage backing up into house] and pt does not realize this
[2021-01-22 15:27] VITALS: BP 181/81; PULSE 76; RESP 16; TEMP 36.5; O2SAT 97
[2021-01-22 16:05] VITALS: BP 181/81; PULSE 76
[2021-01-22 21:43] VITALS: BP 187/76; PULSE 77
[2021-01-22] MEDS: Donepezil HCl 5 MG TABLET PO (21:43)
[2021-01-23] VITALS: BP 155/69; PULSE 68; RESP 16; TEMP 36.6; O2SAT 96
[2021-01-23] MEDS: Levothyroxine Sodium 75 MCG TABLET PO (06:12)
[2021-01-23 07:05] VITALS: BP 167/87; PULSE 68; RESP 16; TEMP 36.2; O2SAT 99
[2021-01-23] MEDS: metFORMIN HCl 500 MG TABLET PO ×2 (07:39→16:20)
[2021-01-23 07:40] LABS: Glucose, Whole Blood 137 mg/dL (60-115)
[2021-01-23] MEDS: hydroCHLOROthiazide 50 MG TABLET PO (07:40)
[2021-01-23] MEDS: hydrALAZINE HCl 50 MG TABLET 100 MG PO ×3 (07:40→21:16)
[2021-01-23] MEDS: NIFEdipine ER 30 MG TAB.ER.24 90 MG PO (07:40)
[2021-01-23 11:42] LABS: Glucose, Whole Blood 277 mg/dL (60-115)
--- NOTE | 2021-01-23 13:36 | HO.PM.IMPN ---
Subjective Subjective Date of Service: 01/23/21 Interval History: The patient was seen this morning No reported fever, chills or shortness of breath No reported other overnight events. Systemic review: No fever, chills or weakness No chest pain, palpitation No shortness of breath or coughing No abdominal pain, nausea or vomiting Physical Exam Vital Signs: Vital Signs: Last Vital Signs Temp 97.2 F 01/23/21 07:05 Pulse 68 01/23/21 07:05 Resp 16 01/23/21 07:05 BP 167/87 H 01/23/21 07:05 Pulse Ox 99 01/23/21 07:05 Body Mass Index 19.5 Const: Other: Constitutional : Alert, not in distress Cardiovascular : No JVP, no lower extremity edema Respiratory : Chest wall moving bilaterally, not in respiratory distress Neurological : Alert , interactive, No focal deficit Objective Data Current Medications Generic Name Dose Route Start Last Admin Trade Name Freq PRN Reason Stop Dose Admin Donepezil HCl 5 mg 12/11/20 21:00 01/22/21 21:43 Donepezil Hcl 5 Mg Tablet PO 5 mg BEDTIME RAGHAVENDRA Administration Hydralazine HCl 100 mg 11/05/20 15:00 01/23/21 07:40 Hydralazine Hcl 50 Mg Tablet PO 100 mg TID RAGHAVENDRA Administration Protocol Hydrochlorothiazide 50 mg 01/20/21 09:00 01/23/21 07:40 Hydrochlorothiazide 50 Mg Tablet PO 50 mg DAILY RAGHAVENDRA Administration Protocol Levothyroxine Sodium 75 mcg 01/13/21 09:00 01/23/21 06:12 Levothyroxine Sodium 75 Mcg Tablet PO 75 mcg DAILY@0600 RAGHAVENDRA Administration Metformin HCl 500 mg 01/13/21 09:00 01/23/21 07:39 Metformin Hcl 500 Mg Tablet PO 500 mg BIDWM RAGHAVENDRA Administration Nifedipine 90 mg 01/19/21 09:00 01/23/21 07:40 Nifedipine Er 30 Mg Tab.Er.24 PO 90 mg DAILY RAGHAVENDRA Administration Protocol Labs CBC & Chem 7: 01/14/21 07:23 01/22/21 06:22 Microbiology Microbiology Results: Microbiology 11/24/20 08:18 Stool Stool Culture - Final 09/21/20 Unknown Urine clean catch - Clean Catch Midstream Urine Culture - Final No growth. Assessment and Plan (1) Dementia, vascular, mixed: Status: Acute (2) HTN (hypertension): Status: Acute (3) Communicating hydrocephalus: Status: Acute (4) Neurocognitive disorder: Status: Acute (5) Atherosclerotic cardiovascular disease: Status: Acute Assessment and Plan: hospital d#[id number] 85yo F with HTN, HLD, DM2, hypothyroidism, CAD s/p PCI initially admitted with falls, elevated troponin; disposition complicated by cognitive impairment requiring guardianship # cognitive impairment - evaluated by psychiatry does need guardianship , had hearing in court 12/14 to assess financial assessment - Pending another court date for actual guardianship. # C diff colitis - resolved, s/p 14d of vancomycin treatment # uncontrolled HTN - enalapril, HCTZ, hydralazine - increase nifedipine to 90 mg daily - Increase HCTz to 50 # acute grief reaction - due to passing of . met with CARE team # Hx CAD - ASA + statin; HR too low for B-derrek # DM2 complicated by hypoglycemia - d/c'ed lispro + glimepride; continue MTF alone; A1c only 6.2; does not need fingersticks at this point # hypothyroidism - continue LT4 # VTE ppx - ambulating well multiple times per day, would consider low risk for VTE, now off LMWH # dispo - awaiting guardianship, Basically, the pt's house is not inhabitable [raw sewage backing up into house] and pt does not realize this
--- NOTE | 2021-01-23 14:19 | MHC.CLN ---
NUTRITION FOLLOW UP PATIENT CONTINUES WITH DIET RX DIABETIC, 1800 [address]. INTAKE AT MEALS USUALLY GOOD. TONYA=23. BMI=19.5. NO NEW NUTRITION CONCERNS. CONTINUE TO FOLLOW.
[2021-01-23 16:00] VITALS: BP 160/72; PULSE 65; RESP 16; TEMP 36.8; O2SAT 98
[2021-01-23 16:38] LABS: Glucose, Whole Blood 149 mg/dL (60-115)
[2021-01-23] MEDS: Donepezil HCl 5 MG TABLET PO (21:16)
[2021-01-24] VITALS: BP 138/68; PULSE 68; RESP 18; TEMP 36.6; O2SAT 97
[2021-01-24] MEDS: Levothyroxine Sodium 75 MCG TABLET PO (06:12)
[2021-01-24] MEDS: metFORMIN HCl 500 MG TABLET PO ×2 (07:54→16:31)
[2021-01-24] MEDS: hydroCHLOROthiazide 50 MG TABLET PO (07:54)
[2021-01-24] MEDS: NIFEdipine ER 30 MG TAB.ER.24 90 MG PO (07:54)
[2021-01-24 07:55] VITALS: BP 172/79; PULSE 76; RESP 17; TEMP 36.5; O2SAT 96
[2021-01-24] MEDS: hydrALAZINE HCl 50 MG TABLET 100 MG PO ×3 (07:55→20:58)
--- NOTE | 2021-01-24 14:28 | MHC.CM.PN ---
nurse rn wound care note electronic medical record reviewed qlong with case discussed with staff nurse , met with patient offered support. patient eating well on her diabetic diet , and ambulating in the halls , court assigned conservator still working on accessing funds ,michael is working with the home in hopes to be able to secure date for patients plans for next week, michael will call us with the date/ case management to continue to talk with patient and offer support time .
--- NOTE | 2021-01-24 14:35 | P.PNIM_ITS ---
Subjective Subjective Date of Service: 01/24/21 Interval History: Offers no acute complaints, no issues overnight has been ambulating in hallways. 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 General no fever no chills no weakness Gastro no nausea no vomiting no diarrhea Physical Exam Vital Signs: Vital Signs: Last Vital Signs Temp 97.7 F 01/24/21 07:55 Pulse 76 01/24/21 07:55 Resp 17 01/24/21 07:55 BP 172/79 H 01/24/21 07:55 Pulse Ox 96 01/24/21 07:55 Body Mass Index 19.5 Constitutional : Alert, awake not in distress Cardiovascular : Regular rate rhythm no lower extremity edema Respiratory : Clear to auscultation, no respiratory distress Neurological : Alert , interactive, No focal deficit Objective Data Current Medications Generic Name Dose Route Start Last Admin Trade Name Freq PRN Reason Stop Dose Admin Donepezil HCl 5 mg 12/11/20 21:00 01/23/21 21:16 Donepezil Hcl 5 Mg Tablet PO 5 mg BEDTIME RAGHAVENDRA Administration Hydralazine HCl 100 mg 11/05/20 15:00 01/24/21 07:55 Hydralazine Hcl 50 Mg Tablet PO 100 mg TID RAGHAVENDRA Administration Protocol Hydrochlorothiazide 50 mg 01/20/21 09:00 01/24/21 07:54 Hydrochlorothiazide 50 Mg Tablet PO 50 mg DAILY RAGHAVENDRA Administration Protocol Levothyroxine Sodium 75 mcg 01/13/21 09:00 01/24/21 06:12 Levothyroxine Sodium 75 Mcg Tablet PO 75 mcg DAILY@0600 RAGHAVENDRA Administration Metformin HCl 500 mg 01/13/21 09:00 01/24/21 07:54 Metformin Hcl 500 Mg Tablet PO 500 mg BIDWM RAGHAVENDRA Administration Nifedipine 90 mg 01/19/21 09:00 01/24/21 07:54 Nifedipine Er 30 Mg Tab.Er.24 PO 90 mg DAILY RAGHAVENDRA Administration Protocol Labs CBC & Chem 7: 01/14/21 07:23 01/22/21 06:22 Microbiology Microbiology Results: Microbiology 11/24/20 08:18 Stool Stool Culture - Final 09/21/20 Unknown Urine clean catch - Clean Catch Midstream Urine Culture - Final No growth. Assessment and Plan (1) Dementia, vascular, mixed: Status: Acute (2) HTN (hypertension): Status: Acute (3) Communicating hydrocephalus: Status: Acute (4) Neurocognitive disorder: Status: Acute (5) Bradycardia: Status: Acute (6) Non-rheumatic aortic stenosis: Status: Acute Assessment and Plan: 85yo F with HTN, HLD, DM2, hypothyroidism, CAD s/p PCI initially admitted with falls, elevated troponin; disposition complicated by cognitive impairment requiring guardianship # cognitive impairment - evaluated by psychiatry does need guardianship , had hearing in court 12/14 to assess financial assessment,Pending another court date for actual guardianship. # C diff colitis resolved, s/p 14d of vancomycin treatment # uncontrolled HTN persistent elevated blood pressure on hydralazine 100 mg t.i.d., nifedipine 90 mg daily and hydrochlorothiazide 50 mg daily, patient not receiving enalapril Since it was auto discontinued last month will resume enalapril and lower dose of hydrochlorothiazide to 25mg and follow BP closely. # acute grief reaction - due to passing of , met with CARE team # Hx CAD - ASA + statin had bradycardia therefore was not placed on beta-derrek, noted to have stable heart rate in last several days, will consider low dose beta- blockers if heart rate remains stable. # DM2 complicated by hypoglycemia - d/c'ed lispro + glimepride; continue MTF alone; A1c only 6.2; does not need fingersticks at this point # hypothyroidism - continue LT4 # VTE ppx - ambulating well multiple times per day, would consider low risk for VTE, now off LMWH # dispo - awaiting guardianship, Basically, the pt's house is not inhabitable [raw sewage backing up into house] and pt does not realize this
[2021-01-24 16:29] VITALS: BP 175/74; PULSE 66; RESP 16; TEMP 36.4; O2SAT 96
[2021-01-24 16:31] VITALS: BMI 20.2
[2021-01-24] MEDS: Enalapril Maleate 10 MG TABLET 20 MG PO (20:59)
[2021-01-24] MEDS: Donepezil HCl 5 MG TABLET PO (20:59)
[2021-01-25] VITALS: BP 135/75; PULSE 64; RESP 16; TEMP 37.1; O2SAT 97
[2021-01-25] MEDS: Levothyroxine Sodium 75 MCG TABLET PO (06:00)
[2021-01-25 07:43] VITALS: BP 149/69; PULSE 55; RESP 18; TEMP 36.8; O2SAT 95
[2021-01-25] MEDS: metFORMIN HCl 500 MG TABLET PO ×2 (07:53→16:28)
[2021-01-25] MEDS: NIFEdipine ER 30 MG TAB.ER.24 90 MG PO (07:53)
[2021-01-25] MEDS: hydrALAZINE HCl 50 MG TABLET 100 MG PO ×3 (07:53→20:15)
[2021-01-25] MEDS: Enalapril Maleate 10 MG TABLET 20 MG PO ×2 (07:53→20:15)
[2021-01-25] MEDS: hydroCHLOROthiazide 25 MG TABLET PO (07:54)
--- NOTE | 2021-01-25 14:46 | P.PNIM_ITS ---
Subjective Subjective Date of Service: 01/25/21 Interval History: Offers no complaints wants to know when she will be discharged came out of shower, ambulating in hallways. 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, no dizziness General no fever, no chills, no weakness Gastro no nausea, no vomiting no diarrhea Physical Exam Vital Signs: Vital Signs: Last Vital Signs Temp 98.2 F 01/25/21 07:43 Pulse 55 01/25/21 07:43 Resp 18 01/25/21 07:43 BP 149/69 H 01/25/21 07:43 Pulse Ox 95 01/25/21 07:43 Body Mass Index 20.2 Constitutional : Alert, awake not in distress Cardiovascular : Regular rate rhythm no lower extremity edema Respiratory : Clear to auscultation, no respiratory distress Neurological : Alert , interactive, No focal deficit Skin no rash Objective Data Current Medications Generic Name Dose Route Start Last Admin Trade Name Freq PRN Reason Stop Dose Admin Donepezil HCl 5 mg 12/11/20 21:00 01/24/21 20:59 Donepezil Hcl 5 Mg Tablet PO 5 mg BEDTIME RAGHAVENDRA Administration Enalapril Maleate 20 mg 01/24/21 21:00 01/25/21 07:53 Enalapril Maleate 10 Mg Tablet PO 20 mg BID RAGHAVENDRA Administration Hydralazine HCl 100 mg 11/05/20 15:00 01/25/21 07:53 Hydralazine Hcl 50 Mg Tablet PO 100 mg TID RAGHAVENDRA Administration Protocol Hydrochlorothiazide 25 mg 01/25/21 09:00 01/25/21 07:54 Hydrochlorothiazide 25 Mg Tablet PO 25 mg DAILY RAGHAVENDRA Administration Protocol Levothyroxine Sodium 75 mcg 01/13/21 09:00 01/25/21 06:00 Levothyroxine Sodium 75 Mcg Tablet PO 75 mcg DAILY@0600 RAGHAVENDRA Administration Metformin HCl 500 mg 01/13/21 09:00 01/25/21 07:53 Metformin Hcl 500 Mg Tablet PO 500 mg BIDWM RAGHAVENDRA Administration Nifedipine 90 mg 01/19/21 09:00 01/25/21 07:53 Nifedipine Er 30 Mg Tab.Er.24 PO 90 mg DAILY RAGHAVENDRA Administration Protocol Labs CBC & Chem 7: 01/14/21 07:23 01/22/21 06:22 Microbiology Microbiology Results: Microbiology 11/24/20 08:18 Stool Stool Culture - Final 09/21/20 Unknown Urine clean catch - Clean Catch Midstream Urine Culture - Final No growth. Assessment and Plan (1) HTN (hypertension): Status: Acute (2) Dementia, vascular, mixed: Status: Acute (3) Clostridioides difficile infection: Status: Acute (4) Communicating hydrocephalus: Status: Acute (5) Neurocognitive disorder: Status: Acute (6) Bradycardia: Status: Acute (7) Atherosclerotic cardiovascular disease: Status: Acute Assessment and Plan: 85yo F with HTN, HLD, DM2, hypothyroidism, CAD s/p PCI initially admitted with falls, elevated troponin; disposition complicated by cognitive impairment requiring guardianship # cognitive impairment - evaluated by psychiatry does need guardianship , had hearing in court 12/14 to assess financial assessment,Pending another court date for actual guardianship. # C diff colitis resolved, s/p 14d of vancomycin treatment # uncontrolled HTN blood pressure improved with resumption of enalapril 20 mg b. i.d., continue hydralazine 100 mg t.i.d., nifedipine 90 mg daily and hydrochlorothiazide 25 mg daily Follow BP closely # acute grief reaction - due to passing of , met with CARE team # Hx CAD - ASA + statin had bradycardia therefore was not placed on beta-derrek, noted to have stable heart rate in last several days, will consider low dose beta- blockers if heart rate remains stable. # DM2 complicated by hypoglycemia - d/c'ed lispro + glimepride; continue MTF alone;Hb A1c only 6.2; does not need fingersticks at this point # hypothyroidism - continue LT4 # VTE ppx - ambulating well multiple times per day, would consider low risk for VTE, now off LMWH # dispo - awaiting guardianship, Basically, the pt's house is not inhabitable [raw sewage backing up into house] .
[2021-01-25 16:28] VITALS: BP 160/75; PULSE 69; RESP 18; TEMP 36.2; O2SAT 99
[2021-01-25 20:14] VITALS: BP 142/74; PULSE 62
[2021-01-25 20:15] VITALS: BP 142/74; PULSE 62
[2021-01-25] MEDS: Donepezil HCl 5 MG TABLET PO (20:15)
[2021-01-25 23:30] VITALS: BP 151/70; PULSE 63; RESP 14; TEMP 36.1; O2SAT 97
[2021-01-26] MEDS: Levothyroxine Sodium 75 MCG TABLET PO (05:28)
[2021-01-26 07:04] VITALS: BP 142/74; PULSE 88; RESP 20; TEMP 36; O2SAT 97
[2021-01-26 07:30] LABS: Glucose, Whole Blood 109 mg/dL (60-115)
--- NOTE | 2021-01-26 07:38 | P.PNIM_ITS ---
Subjective Subjective Date of Service: 01/26/21 Interval History: Seen in follow for placement issues Review of Systems no chest pain, no sob, no dizziness Physical Exam Vital Signs: Vital Signs: Last Vital Signs Temp 96.8 F 01/26/21 07:04 Pulse 88 01/26/21 07:04 Resp 20 01/26/21 07:04 BP 142/74 H 01/26/21 07:04 Pulse Ox 97 01/26/21 07:04 Body Mass Index 20.2 General: AO X 2, no acute distress Resp: CTA bilateral CVS: S1,S2,RRR GI: +BS, NT, no distention Skin: No rash Neuro: motor grossly intact Psych: appropriate affect Const: Limitations: no limitations and other limitations (Question if the patient remembers events correctly) Objective Data Current Medications Generic Name Dose Route Start Last Admin Trade Name Freq PRN Reason Stop Dose Admin Donepezil HCl 5 mg 12/11/20 21:00 01/25/21 20:15 Donepezil Hcl 5 Mg Tablet PO 5 mg BEDTIME RAGHAVENDRA Administration Enalapril Maleate 20 mg 01/24/21 21:00 01/25/21 20:15 Enalapril Maleate 10 Mg Tablet PO 20 mg BID RAGHAVENDRA Administration Hydralazine HCl 100 mg 11/05/20 15:00 01/25/21 20:15 Hydralazine Hcl 50 Mg Tablet PO 100 mg TID RAGHAVENDRA Administration Protocol Hydrochlorothiazide 25 mg 01/25/21 09:00 01/25/21 07:54 Hydrochlorothiazide 25 Mg Tablet PO 25 mg DAILY RAGHAVENDRA Administration Protocol Levothyroxine Sodium 75 mcg 01/13/21 09:00 01/26/21 05:28 Levothyroxine Sodium 75 Mcg Tablet PO 75 mcg DAILY@0600 RAGHAVENDRA Administration Metformin HCl 500 mg 01/13/21 09:00 01/25/21 16:28 Metformin Hcl 500 Mg Tablet PO 500 mg BIDWM RAGHAVENDRA Administration Nifedipine 90 mg 01/19/21 09:00 01/25/21 07:53 Nifedipine Er 30 Mg Tab.Er.24 PO 90 mg DAILY RAGHAVENDRA Administration Protocol Labs CBC & Chem 7: 01/14/21 07:23 01/22/21 06:22 Microbiology Microbiology Results: Microbiology 11/24/20 08:18 Stool Stool Culture - Final 09/21/20 Unknown Urine clean catch - Clean Catch Midstream Urine Culture - Final No growth. Assessment and Plan (1) HTN (hypertension): Status: Acute (2) Dementia, vascular, mixed: Status: Acute (3) Clostridioides difficile infection: Status: Acute (4) Communicating hydrocephalus: Status: Acute (5) Neurocognitive disorder: Status: Acute (6) Bradycardia: Status: Acute (7) Atherosclerotic cardiovascular disease: Status: Acute Assessment and Plan: 85yo F with HTN, HLD, DM2, hypothyroidism, CAD s/p PCI initially admitted with falls, elevated troponin; disposition complicated by cognitive impairment requiring guardianship # cognitive impairment - evaluated by psychiatry does need guardianship , had hearing in court 12/14 to assess financial assessment,Pending another court date for actual guardianship. # C diff colitis resolved, s/p 14d of vancomycin treatment # uncontrolled HTN blood pressure improved with resumption of enalapril 20 mg b.i.d., continue hydralazine 100 mg t.i.d., nifedipine 90 mg daily and hydrochlorothiazide 25 mg daily Follow BP closely # acute grief reaction - due to passing of , met with CARE team # Hx CAD - ASA + statin had bradycardia therefore was not placed on beta-derrek, noted to have stable heart rate in last several days, will consider low dose beta- blockers if heart rate remains stable. # DM2 complicated by hypoglycemia - d/c'ed lispro + glimepride; continue MTF alone;Hb A1c only 6.2; does not need fingersticks at this point # hypothyroidism - continue LT4 # VTE ppx - ambulating well multiple times per day, would consider low risk for VTE, now off LMWH # dispo - awaiting guardianship, Basically, the pt's house is not inhabitable [raw sewage backing up into house] . Check basic labs today for anemia seen on last lab
[2021-01-26 08:55] LABS: Hematocrit 28.3 % (37-47); Hemoglobin 9.1 g/dl (12.0-16.0); Mean Corpuscular HGB Conc 32.2 g/dl (31.0-35.0); Mean Corpuscular Hemoglobin 30.7 pg (27.0-33.0); Mean Corpuscular Volume 95.6 fL (80-98); Mean Platelet Volume 10.9 fL (9.4-12.3); Platelet Count 370 X10*3/uL (160-400); Red Blood Count 2.96 X10*6/uL (4.20-5.50); Red Cell Distribution Width 13.3 % (11.0-16.0); White Blood Count 7.9 X10*3/uL (4.8-10.8)
[2021-01-26] MEDS: Enalapril Maleate 10 MG TABLET 20 MG PO ×2 (10:33→20:42)
[2021-01-26] MEDS: hydrALAZINE HCl 50 MG TABLET 100 MG PO ×3 (10:34→20:43)
[2021-01-26] MEDS: metFORMIN HCl 500 MG TABLET PO ×2 (10:34→18:11)
[2021-01-26] MEDS: NIFEdipine ER 30 MG TAB.ER.24 90 MG PO (10:35)
[2021-01-26] MEDS: hydroCHLOROthiazide 25 MG TABLET PO (10:35)
[2021-01-26 11:01] VITALS: PULSE 60; RESP 20; TEMP 36.6
--- NOTE | 2021-01-26 14:55 | MHC.CM.PN ---
NURSE GRADER PATROL NTOE ELECTRONIC MEDICAL RECORD REVIEWED ALONG WITH CASE DISCUSSED WITH STAFF NRUSE, . AWAITING TO HER ANY UPDATED NEWS FROM CONSERVATOR TO [employer] OR PROGRESS IN REPAIRING AND CLEANING THE HOUSE. WILL ATTEMPT IT REACH [facility] ON FRIDAY . PATIENT HAS BEEN APPEARING CALMER AND CONTINEUS TO AMBULAT IN THE HALLWAYS SEVERAL TIMES DAY
[2021-01-26 16:00] VITALS: BP 130/59; PULSE 61; RESP 20; TEMP 36.3; O2SAT 97
[2021-01-26 18:11] VITALS: BP 130/59; PULSE 61
[2021-01-26 20:42] VITALS: BP 167/74; PULSE 74
[2021-01-26 20:43] VITALS: BP 167/74; PULSE 74
[2021-01-26] MEDS: Donepezil HCl 5 MG TABLET PO (20:43)
[2021-01-27] VITALS: BP 168/66; PULSE 67; RESP 20; TEMP 36.4; O2SAT 97
[2021-01-27] MEDS: Levothyroxine Sodium 75 MCG TABLET PO (05:43)
[2021-01-27 07:28] LABS: Anion Gap 14 (12-20); Blood Urea Nitrogen 40 mg/dL (9-16); Calcium 8.9 mg/dL (8.4-10.2); Carbon Dioxide 24 mmol/L (22-29); Chloride 107 mmol/L (96-108); Creatinine Clr Calc Pharmacy 29.6; Estimated Glomerular Filt Rate 44; Glucose Random 132 mg/dL (60-115); Sodium 141 mmol/L (135-145)
[2021-01-27 07:36] VITALS: BP 148/60; PULSE 57; RESP 18; TEMP 36.3; O2SAT 97
[2021-01-27] MEDS: hydroCHLOROthiazide 25 MG TABLET PO (08:01)
[2021-01-27] MEDS: metFORMIN HCl 500 MG TABLET PO ×2 (08:01→15:58)
[2021-01-27] MEDS: hydrALAZINE HCl 50 MG TABLET 100 MG PO ×3 (08:02→21:34)
[2021-01-27] MEDS: Enalapril Maleate 10 MG TABLET 20 MG PO ×2 (08:02→21:34)
[2021-01-27] MEDS: NIFEdipine ER 30 MG TAB.ER.24 90 MG PO (08:02)
[2021-01-27 15:55] VITALS: BP 152/71; PULSE 68; RESP 20; TEMP 36.4; O2SAT 98
[2021-01-27 21:34] VITALS: BP 193/80; PULSE 77
[2021-01-27] MEDS: Donepezil HCl 5 MG TABLET PO (21:35)
[2021-01-27 23:25] VITALS: BP 167/75; PULSE 74; RESP 20; TEMP 36.7; O2SAT 97
[2021-01-28] MEDS: Levothyroxine Sodium 75 MCG TABLET PO (05:48)
[2021-01-28 07:51] VITALS: BP 168/70; PULSE 56; RESP 18; TEMP 36.3; O2SAT 97
[2021-01-28] MEDS: Enalapril Maleate 10 MG TABLET 20 MG PO ×2 (08:26→21:28)
[2021-01-28] MEDS: metFORMIN HCl 500 MG TABLET PO ×2 (08:26→16:30)
[2021-01-28] MEDS: NIFEdipine ER 30 MG TAB.ER.24 90 MG PO (08:26)
[2021-01-28] MEDS: hydroCHLOROthiazide 25 MG TABLET PO (08:26)
[2021-01-28] MEDS: hydrALAZINE HCl 50 MG TABLET 100 MG PO ×3 (08:26→21:28)
--- NOTE | 2021-01-28 12:39 | P.PNIM_ITS ---
Subjective Subjective Date of Service: 01/28/21 Interval History: Seen in follow for placement issues, in very good mood this morning. Review of Systems no chest pain, no sob, no dizziness Physical Exam Vital Signs: Vital Signs: Last Vital Signs Temp 97.3 F 01/28/21 07:51 Pulse 56 01/28/21 07:51 Resp 18 01/28/21 07:51 BP 168/70 H 01/28/21 07:51 Pulse Ox 97 01/28/21 07:51 Body Mass Index 20.2 Const: Other: General: AO X 3, no acute distress Resp: CTA bilateral CVS: S1,S2,RRR GI: +BS, NT, no distention Skin: No rash Neuro: motor grossly intact Psych: appropriate affect Objective Data Current Medications Generic Name Dose Route Start Last Admin Trade Name Freq PRN Reason Stop Dose Admin Donepezil HCl 5 mg 12/11/20 21:00 01/27/21 21:35 Donepezil Hcl 5 Mg Tablet PO 5 mg BEDTIME RAGHAVENDRA Administration Enalapril Maleate 20 mg 01/24/21 21:00 01/28/21 08:26 Enalapril Maleate 10 Mg Tablet PO 20 mg BID RAGHAVENDRA Administration Hydralazine HCl 100 mg 11/05/20 15:00 01/28/21 08:26 Hydralazine Hcl 50 Mg Tablet PO 100 mg TID RAGHAVENDRA Administration Protocol Hydrochlorothiazide 25 mg 01/25/21 09:00 01/28/21 08:26 Hydrochlorothiazide 25 Mg Tablet PO 25 mg DAILY RAGHAVENDRA Administration Protocol Levothyroxine Sodium 75 mcg 01/13/21 09:00 01/28/21 05:48 Levothyroxine Sodium 75 Mcg Tablet PO 75 mcg DAILY@0600 RAGHAVENDRA Administration Metformin HCl 500 mg 01/13/21 09:00 01/28/21 08:26 Metformin Hcl 500 Mg Tablet PO 500 mg BIDWM RAGHAVENDRA Administration Nifedipine 90 mg 01/19/21 09:00 01/28/21 08:26 Nifedipine Er 30 Mg Tab.Er.24 PO 90 mg DAILY RAGHAVENDRA Administration Protocol Labs CBC & Chem 7: 01/26/21 08:31 01/27/21 06:19 Microbiology Microbiology Results: Microbiology 11/24/20 08:18 Stool Stool Culture - Final 09/21/20 Unknown Urine clean catch - Clean Catch Midstream Urine Culture - Final No growth. Assessment and Plan (1) HTN (hypertension): Status: Acute (2) Dementia, vascular, mixed: Status: Acute (3) Clostridioides difficile infection: Status: Acute (4) Communicating hydrocephalus: Status: Acute (5) Neurocognitive disorder: Status: Acute (6) Bradycardia: Status: Acute (7) Atherosclerotic cardiovascular disease: Status: Acute Assessment and Plan: 85yo F with HTN, HLD, DM2, hypothyroidism, CAD s/p PCI initially admitted with falls, elevated troponin; disposition complicated by cognitive impairment requiring guardianship # cognitive impairment - evaluated by psychiatry does need guardianship , had hearing in court 12/14 to assess financial assessment, Pending another court date for actual guardianship. # C diff colitis resolved, s/p 14d of vancomycin treatment # uncontrolled HTN blood pressure improved with resumption of enalapril 20 mg b.i.d., continue hydralazine 100 mg t.i.d., nifedipine 90 mg daily and hydrochlorothiazide 25 mg daily Follow BP closely, consider low dose norvasc if persistently high # acute grief reaction - due to passing of , met with CARE team # Hx CAD - ASA + statin had bradycardia therefore was not placed on beta-derrek, noted to have stable heart rate in last several days, will consider low dose beta- blockers if heart rate remains stable. # DM2 complicated by hypoglycemia - d/c'ed lispro + glimepride; continue MTF alone;Hb A1c only 6.2; does not need fingersticks at this point # hypothyroidism - continue LT4 # VTE ppx - ambulating well multiple times per day, would consider low risk for VTE, now off LMWH # dispo - awaiting guardianship, Basically, the pt's house is not inhabitable [raw sewage backing up into house] . Check basic labs today for anemia seen on last lab
[2021-01-28 15:55] VITALS: BP 134/71; PULSE 58; RESP 14; TEMP 36.1; O2SAT 98
[2021-01-28 21:28] VITALS: BP 134/71; PULSE 58
[2021-01-28] MEDS: Donepezil HCl 5 MG TABLET PO (21:28)
[2021-01-29] VITALS (7 sets, daily range): BP systolic 139–161; BP diastolic 65–70; PULSE 57–67; RESP 14–16; TEMP 35.9–36.3; O2SAT 96–97
[2021-01-29 07:25] LABS: Glucose, Whole Blood 143 mg/dL (60-115)
[2021-01-29] MEDS: NIFEdipine ER 30 MG TAB.ER.24 90 MG PO (08:23)
[2021-01-29] MEDS: metFORMIN HCl 500 MG TABLET PO ×2 (08:23→15:58)
[2021-01-29] MEDS: hydroCHLOROthiazide 25 MG TABLET PO (08:23)
[2021-01-29] MEDS: hydrALAZINE HCl 50 MG TABLET 100 MG PO ×3 (08:23→22:05)
[2021-01-29] MEDS: Enalapril Maleate 10 MG TABLET 20 MG PO ×2 (08:23→22:06)
--- NOTE | 2021-01-29 10:20 | MHC.CM.PN ---
BAUTISTA RECEIVED A CALL FROM ROBERT AT [facility] WHO REQUESTED AN UPDATE. BAUTISTA PROVIDED AN UPDATE AND ROBERT REQUESTED INFORMATION ON CURRENT VISITATION POLICY, WHICH WAS PROVIDED. ROBERT REPORTS SHE IS CURRENTLY FOLLOWING THE PTS ADMISSION SO THAT SHE CAN ASSIST HER IF SHE RETURNS HOME AT DISCHARGE, HOWEVER IF PT IS LIKELY TO BE HERE SEVERAL MORE MONTHS, ROBERT IS UNSURE IF THEY WILL KEEP THE CASE OPEN.
[2021-01-29] MEDS: Donepezil HCl 5 MG TABLET PO (22:06)
[2021-01-30] VITALS: BP 129/56; PULSE 78; RESP 16; TEMP 36.1; O2SAT 99
[2021-01-30] MEDS: Levothyroxine Sodium 75 MCG TABLET PO (06:15)
[2021-01-30 07:59] VITALS: BP 197/88; PULSE 79; RESP 18; TEMP 36.1; O2SAT 97
[2021-01-30] MEDS: hydroCHLOROthiazide 25 MG TABLET PO (08:01)
[2021-01-30] MEDS: NIFEdipine ER 30 MG TAB.ER.24 90 MG PO (08:02)
[2021-01-30] MEDS: hydrALAZINE HCl 50 MG TABLET 100 MG PO ×3 (08:02→21:22)
[2021-01-30] MEDS: Enalapril Maleate 10 MG TABLET 20 MG PO ×2 (08:02→21:21)
[2021-01-30] MEDS: metFORMIN HCl 500 MG TABLET PO ×2 (08:02→15:59)
--- NOTE | 2021-01-30 08:57 | P.PNIM_ITS ---
Subjective Subjective Date of Service: 01/30/21 Interval History: Seen in follow for placement issues, BP noted to be high this morning, 197/88, and general trend has been high over the last couple of days Review of Systems no chest pain, no sob, no dizziness Physical Exam Vital Signs: Vital Signs: Last Vital Signs Temp 97.0 F 01/30/21 07:59 Pulse 79 01/30/21 07:59 Resp 18 01/30/21 07:59 BP 197/88 H 01/30/21 07:59 Pulse Ox 97 01/30/21 07:59 Body Mass Index 20.2 Const: Other: General: AO X 3, no acute distress Resp: CTA bilateral CVS: S1,S2,RRR GI: +BS, NT, no distention Skin: No rash Neuro: motor grossly intact Psych: appropriate affect Limitations: no limitations and other limitations (Question if the patient remembers events correctly) Objective Data Current Medications Generic Name Dose Route Start Last Admin Trade Name Freq PRN Reason Stop Dose Admin Donepezil HCl 5 mg 12/11/20 21:00 01/29/21 22:06 Donepezil Hcl 5 Mg Tablet PO 5 mg BEDTIME RAGHAVENDRA Administration Enalapril Maleate 20 mg 01/24/21 21:00 01/30/21 08:02 Enalapril Maleate 10 Mg Tablet PO 20 mg BID RAGHAVENDRA Administration Hydralazine HCl 100 mg 11/05/20 15:00 01/30/21 08:02 Hydralazine Hcl 50 Mg Tablet PO 100 mg TID RAGHAVENDRA Administration Protocol Hydrochlorothiazide 25 mg 01/25/21 09:00 01/30/21 08:01 Hydrochlorothiazide 25 Mg Tablet PO 25 mg DAILY RAGHAVENDRA Administration Protocol Levothyroxine Sodium 75 mcg 01/13/21 09:00 01/30/21 06:15 Levothyroxine Sodium 75 Mcg Tablet PO 75 mcg DAILY@0600 RAGHAVENDRA Administration Metformin HCl 500 mg 01/13/21 09:00 01/30/21 08:02 Metformin Hcl 500 Mg Tablet PO 500 mg BIDWM RAGHAVENDRA Administration Nifedipine 90 mg 01/19/21 09:00 01/30/21 08:02 Nifedipine Er 30 Mg Tab.Er.24 PO 90 mg DAILY RAGHAVENDRA Administration Protocol Labs CBC & Chem 7: 01/26/21 08:31 01/27/21 06:19 Assessment and Plan (1) HTN (hypertension): Status: Acute (2) Dementia, vascular, mixed: Status: Acute (3) Clostridioides difficile infection: Status: Acute (4) Communicating hydrocephalus: Status: Acute (5) Neurocognitive disorder: Status: Acute (6) Bradycardia: Status: Acute (7) Atherosclerotic cardiovascular disease: Status: Acute Assessment and Plan: 85yo F with HTN, HLD, DM2, hypothyroidism, CAD s/p PCI initially admitted with falls, elevated troponin; disposition complicated by cognitive impairment requiring guardianship # cognitive impairment - evaluated by psychiatry does need guardianship , [place]ung hearing in court 02/01 for guardianship # C diff colitis resolved, s/p 14d of vancomycin treatment # HTN--BP has been generally on high side, on enalapril 20 mg b.i.d., continue hydralazine 100 mg t.i.d., nifedipine 90 mg daily and hydrochlorothiazide 25 mg daily, consider clonidine 0.1 bid which migh also help with anxiety # acute grief reaction - due to passing of , met with CARE team # Hx CAD - ASA + statin had bradycardia therefore was not placed on beta-derrek, noted to have stable heart rate in last several days, will consider low dose beta- blockers if heart rate remains stable. # DM2 complicated by hypoglycemia - d/c'ed lispro + glimepride; continue MTF alone;Hb A1c only 6.2; does not need fingersticks at this point # hypothyroidism - continue LT4 # VTE ppx - ambulating well multiple times per day, would consider low risk for VTE, now off LMWH # dispo - awaiting guardianship, Basically, the pt's house is not inhabitable [raw sewage backing up into house] . Periodic lab work every 1 to 2 weeks, BMP and CBC
[2021-01-30 10:35] VITALS: BP 185/72
--- NOTE | 2021-01-30 12:22 | PC.NURSE ---
bp elevated this am 197/88 bp meds given early per md , rechecked at 10am 185/75 manually , pt asymptomatic .
[2021-01-30 15:48] VITALS: BP 176/84; PULSE 66; RESP 20; TEMP 36.5; O2SAT 98
[2021-01-30 16:00] VITALS: BMI 20.6
[2021-01-30] MEDS: Donepezil HCl 5 MG TABLET PO (21:22)
[2021-01-30 23:46] VITALS: BP 139/58; PULSE 67; RESP 16; TEMP 36.6; O2SAT 97
[2021-01-31] MEDS: Levothyroxine Sodium 75 MCG TABLET PO (06:04)
[2021-01-31 07:10] VITALS: BP 186/78; PULSE 55; RESP 17; TEMP 36.6; O2SAT 97
[2021-01-31] MEDS: Enalapril Maleate 10 MG TABLET 20 MG PO ×2 (07:37→21:18)
[2021-01-31] MEDS: NIFEdipine ER 30 MG TAB.ER.24 90 MG PO (07:37)
[2021-01-31] MEDS: metFORMIN HCl 500 MG TABLET PO ×2 (07:37→15:19)
[2021-01-31] MEDS: hydrALAZINE HCl 50 MG TABLET 100 MG PO ×3 (07:37→21:18)
[2021-01-31] MEDS: hydroCHLOROthiazide 25 MG TABLET PO (07:38)
--- NOTE | 2021-01-31 09:08 | P.PNIM_ITS ---
Subjective Subjective Date of Service: 01/31/21 Interval History: Seen in follow for placement issues, BP noted to be high this morning, 197/88, Blood pressure remains high Review of Systems no chest pain, no sob, no dizziness Physical Exam Vital Signs: Vital Signs: Last Vital Signs Temp 97.9 F 01/31/21 07:10 Pulse 55 01/31/21 07:10 Resp 17 01/31/21 07:10 BP 186/78 H 01/31/21 07:10 Pulse Ox 97 01/31/21 07:10 Body Mass Index 20.6 Const: Other: General: AO X 3, no acute distress Resp: CTA bilateral CVS: S1,S2,RRR GI: +BS, NT, no distention Skin: No rash Neuro: motor grossly intact Psych: appropriate affect Limitations: no limitations and other limitations (Question if the patient remembers events correctly) Objective Data Current Medications Generic Name Dose Route Start Last Admin Trade Name Freq PRN Reason Stop Dose Admin Donepezil HCl 5 mg 12/11/20 21:00 01/30/21 21:22 Donepezil Hcl 5 Mg Tablet PO 5 mg BEDTIME RAGHAVENDRA Administration Enalapril Maleate 20 mg 01/24/21 21:00 01/31/21 07:37 Enalapril Maleate 10 Mg Tablet PO 20 mg BID RAGHAVENDRA Administration Hydralazine HCl 100 mg 11/05/20 15:00 01/31/21 07:37 Hydralazine Hcl 50 Mg Tablet PO 100 mg TID RAGHAVENDRA Administration Protocol Hydrochlorothiazide 25 mg 01/25/21 09:00 01/31/21 07:38 Hydrochlorothiazide 25 Mg Tablet PO 25 mg DAILY RAGHAVENDRA Administration Protocol Levothyroxine Sodium 75 mcg 01/13/21 09:00 01/31/21 06:04 Levothyroxine Sodium 75 Mcg Tablet PO 75 mcg DAILY@0600 RAGHAVENDRA Administration Metformin HCl 500 mg 01/13/21 09:00 01/31/21 07:37 Metformin Hcl 500 Mg Tablet PO 500 mg BIDWM RAGHAVENDRA Administration Nifedipine 120 mg 02/01/21 09:00 Nifedipine Er 30 Mg Tab.Er.24 PO DAILY RAGHAVENDRA Protocol Labs CBC & Chem 7: 01/26/21 08:31 01/27/21 06:19 Quality Stroke Does the patient have a stroke diagnosis?: No VTE Prior VTE?: No VTE Risk Level:: Medical - moderate - high VTE Device Contraindication: N/A - Device Ordered VTE Drug Contraindication: N/A - Med Ordered Assessment and Plan (1) HTN (hypertension): Status: Acute (2) Dementia, vascular, mixed: Status: Acute (3) Clostridioides difficile infection: Status: Acute (4) Communicating hydrocephalus: Status: Acute (5) Neurocognitive disorder: Status: Acute (6) Bradycardia: Status: Acute (7) Atherosclerotic cardiovascular disease: Status: Acute Assessment and Plan: 85yo F with HTN, HLD, DM2, hypothyroidism, CAD s/p PCI initially admitted with falls, elevated troponin; disposition complicated by cognitive impairment requiring guardianship # HTN--BP has been generally on high side, on enalapril 20 mg b.i.d., continue hydralazine 100 mg t.i.d., nifedipine 90 mg daily and hydrochlorothiazide 25 mg daily--increasing Nifedipine to 120 and closely monitoring BP # cognitive impairment - evaluated by psychiatry does need guardianship , haa hearing in court 02/01 for guardianship # C diff colitis resolved, s/p 14d of vancomycin treatment # acute grief reaction - due to passing of , met with CARE team # Hx CAD - ASA + statin had bradycardia therefore was not placed on beta-derrek, noted to have stable heart rate in last several days, will consider low dose beta- blockers if heart rate remains stable. # DM2 complicated by hypoglycemia - d/c'ed lispro + glimepride; continue MTF alone;Hb A1c only 6.2; does not need fingersticks at this point # hypothyroidism - continue LT4 # VTE ppx - ambulating well multiple times per day, would consider low risk for VTE, now off LMWH # dispo - awaiting guardianship, Basically, the pt's house is not inhabitable [raw sewage backing up into house] . Periodic lab work every 1 to 2 weeks, BMP and CBC
[2021-01-31] MEDS: NIFEdipine ER 30 MG TAB.ER.24 PO (09:35)
[2021-01-31 16:00] VITALS: BP 155/79; PULSE 64; RESP 19; TEMP 37.1; O2SAT 97
[2021-01-31] MEDS: Donepezil HCl 5 MG TABLET PO (21:18)
[2021-01-31 23:38] VITALS: BP 142/40; PULSE 63; RESP 14; TEMP 36.1; O2SAT 96
[2021-02-01] MEDS: Levothyroxine Sodium 75 MCG TABLET PO (06:04)
[2021-02-01] MEDS: metFORMIN HCl 500 MG TABLET PO ×2 (07:42→16:44)
[2021-02-01] MEDS: hydroCHLOROthiazide 25 MG TABLET PO (07:42)
[2021-02-01] MEDS: Enalapril Maleate 10 MG TABLET 20 MG PO ×2 (07:42→21:05)
[2021-02-01] MEDS: NIFEdipine ER 30 MG TAB.ER.24 120 MG PO (07:42)
[2021-02-01] MEDS: hydrALAZINE HCl 50 MG TABLET 100 MG PO ×3 (07:43→21:04)
[2021-02-01 08:00] VITALS: BP 175/73; PULSE 62; RESP 16; TEMP 36.6; O2SAT 96
--- NOTE | 2021-02-01 09:05 | P.PNIM_ITS ---
Subjective Subjective Date of Service: 02/01/21 Interval History: follow up Review of Systems Sitting comfortably denies any chest pain or shortness of breath or abdominal pain or fever chills. Physical Exam Vital Signs: Vital Signs: Last Vital Signs Temp 97.8 F 02/01/21 08:00 Pulse 62 02/01/21 08:00 Resp 16 02/01/21 08:00 BP 175/73 H 02/01/21 08:00 Pulse Ox 96 02/01/21 08:00 Body Mass Index 20.6 Physical exam: Cvs: rrr, [id number] , no murmur res: clear to auscultation ,no rhonchii or wheezing abd: no rebound or guarding ,nt, bs present. ext pulses present , no cyanosis neuro: nonfocal. Objective Data Current Medications Generic Name Dose Route Start Last Admin Trade Name Freq PRN Reason Stop Dose Admin Donepezil HCl 5 mg 12/11/20 21:00 01/31/21 21:18 Donepezil Hcl 5 Mg Tablet PO 5 mg BEDTIME RAGHAVENDRA Administration Enalapril Maleate 20 mg 01/24/21 21:00 02/01/21 07:42 Enalapril Maleate 10 Mg Tablet PO 20 mg BID RAGHAVENDRA Administration Hydralazine HCl 100 mg 11/05/20 15:00 02/01/21 07:43 Hydralazine Hcl 50 Mg Tablet PO 100 mg TID RAGHAVENDRA Administration Protocol Hydrochlorothiazide 25 mg 01/25/21 09:00 02/01/21 07:42 Hydrochlorothiazide 25 Mg Tablet PO 25 mg DAILY RAGHAVENDRA Administration Protocol Levothyroxine Sodium 75 mcg 01/13/21 09:00 02/01/21 06:04 Levothyroxine Sodium 75 Mcg Tablet PO 75 mcg DAILY@0600 RAGHAVENDRA Administration Metformin HCl 500 mg 01/13/21 09:00 02/01/21 07:42 Metformin Hcl 500 Mg Tablet PO 500 mg BIDWM RAGHAVENDRA Administration Nifedipine 120 mg 02/01/21 09:00 02/01/21 07:42 Nifedipine Er 30 Mg Tab.Er.24 PO 120 mg DAILY RAGHAVENDRA Administration Protocol Labs CBC & Chem 7: 01/26/21 08:31 01/27/21 06:19 Quality Stroke Does the patient have a stroke diagnosis?: No VTE Prior VTE?: No VTE Risk Level:: Medical - moderate - high VTE Device Contraindication: N/A - Device Ordered VTE Drug Contraindication: N/A - Med Ordered Assessment and Plan (1) Dementia, vascular, mixed: Status: Acute Assessment and Plan: 85yo F with HTN, HLD, DM2, hypothyroidism, CAD s/p PCI initially admitted with falls, elevated troponin; disposition complicated by cognitive impairment requiring guardianship 1.HTN--BP has been generally on high side, on enalapril 20 mg b.i.d., continue hydralazine 100 mg t.i.d., nifedipine 90 mg daily and hydrochlorothiazide 25 mg daily--increased Nifedipine to 120 and closely monitoring BP still slightly suboptimal will will adjsut enalopril if does not improve, will check labs bmp in am before adjusting enalopril. 2. cognitive impairment- evaluated by psychiatry does need guardianship , nhung hearing in court 02/01 for guardianship 3. C diff colitis resolved, s/p 14d of vancomycin treatment 4. acute grief reaction- due to passing of , met with CARE team 5. Hx CAD- ASA + statin had bradycardia therefore was not placed on beta- derrek, noted to have stable heart rate in last several days, will consider low dose beta-blockers if heart rate remains stable. 6. DM2 complicated by hypoglycemia- d/c'ed lispro + glimepride; continue MTF alone;Hb A1c only 6.2; does not need fingersticks at this point 7. hypothyroidism- continue LT4 8.VTE ppx- ambulating well multiple times per day, would consider low risk for VTE, now off LMWH 9. dispo- awaiting guardianship, Basically, the pt's house is not inhabitable [raw sewage backing up into house] . Periodic lab work every 1 to 2 weeks, BMP and CBC
--- NOTE | 2021-02-01 14:44 | MHC.IC ---
Contact precautions for c.difficile discontinued. Pt has had long inpatient admission and has no diarrhea at present. Discussed with Isis BEATTY who is caring for patient today.
[2021-02-01 15:28] VITALS: BP 179/79; PULSE 67; RESP 18; TEMP 36.8; O2SAT 97
[2021-02-01 21:04] VITALS: BP 193/71; PULSE 68
[2021-02-01] MEDS: Donepezil HCl 5 MG TABLET PO (21:04)
[2021-02-01 21:05] VITALS: BP 193/71; PULSE 68
[2021-02-01 23:28] VITALS: BP 138/54; PULSE 57; RESP 16; TEMP 36.2; O2SAT 97
[2021-02-02] MEDS: Levothyroxine Sodium 75 MCG TABLET PO (05:27)
[2021-02-02 08:00] VITALS: BP 149/52; PULSE 55; RESP 18; TEMP 36.6; O2SAT 98
[2021-02-02] MEDS: hydroCHLOROthiazide 25 MG TABLET PO (08:30)
[2021-02-02] MEDS: hydrALAZINE HCl 50 MG TABLET 100 MG PO ×3 (08:30→19:57)
[2021-02-02] MEDS: metFORMIN HCl 500 MG TABLET PO ×2 (08:31→17:15)
[2021-02-02] MEDS: NIFEdipine ER 30 MG TAB.ER.24 120 MG PO (08:31)
[2021-02-02] MEDS: Enalapril Maleate 10 MG TABLET 20 MG PO ×2 (08:31→19:56)
--- NOTE | 2021-02-02 11:53 | P.PNIM_ITS ---
Subjective Subjective Date of Service: 02/02/21 Interval History: No acute complaints, patient noted to be ambulating in hallways with walker. [employer]ING [employer] no headache, no dizziness CVS no chest pain, no palpitation GI no nausea, no vomiting Physical Exam Vital Signs: Vital Signs: Last Vital Signs Temp 97.8 F 02/02/21 08:00 Pulse 55 02/02/21 08:00 Resp 18 02/02/21 08:00 BP 149/52 H 02/02/21 08:00 Pulse Ox 98 02/02/21 08:00 Body Mass Index 20.6 General: Ax O X 3, no acute distress Resp: CTA bilaterally CVS: Regular rate rhythm GI: Abdomen soft, nontender, bowel sounds audible Skin: No rash Neuro: motor grossly intact Psych: appropriate affect Objective Data Current Medications Generic Name Dose Route Start Last Admin Trade Name Freq PRN Reason Stop Dose Admin Donepezil HCl 5 mg 12/11/20 21:00 02/01/21 21:04 Donepezil Hcl 5 Mg Tablet PO 5 mg BEDTIME RAGHAVENDRA Administration Enalapril Maleate 20 mg 01/24/21 21:00 02/02/21 08:31 Enalapril Maleate 10 Mg Tablet PO 20 mg BID RAGHAVENDRA Administration Hydralazine HCl 100 mg 11/05/20 15:00 02/02/21 08:30 Hydralazine Hcl 50 Mg Tablet PO 100 mg TID RAGHAVENDRA Administration Protocol Hydrochlorothiazide 25 mg 01/25/21 09:00 02/02/21 08:30 Hydrochlorothiazide 25 Mg Tablet PO 25 mg DAILY RAGHAVENDRA Administration Protocol Levothyroxine Sodium 75 mcg 01/13/21 09:00 02/02/21 05:27 Levothyroxine Sodium 75 Mcg Tablet PO 75 mcg DAILY@0600 RAGHAVENDRA Administration Metformin HCl 500 mg 01/13/21 09:00 02/02/21 08:31 Metformin Hcl 500 Mg Tablet PO 500 mg BIDWM RAGHAVENDRA Administration Nifedipine 120 mg 02/01/21 09:00 02/02/21 08:31 Nifedipine Er 30 Mg Tab.Er.24 PO 120 mg DAILY RAGHAVENDRA Administration Protocol Labs CBC & Chem 7: 01/26/21 08:31 01/27/21 06:19 Quality Stroke Does the patient have a stroke diagnosis?: No VTE Prior VTE?: No VTE Risk Level:: Medical - moderate - high VTE Device Contraindication: N/A - Device Ordered VTE Drug Contraindication: N/A - Med Ordered Assessment and Plan (1) Dementia, vascular, mixed: Status: Acute (2) HTN (hypertension): Status: Acute (3) Neurocognitive disorder: Status: Acute (4) Non-rheumatic aortic stenosis: Status: Acute (5) Atherosclerotic cardiovascular disease: Status: Acute Assessment and Plan: 85yo F with HTN, HLD, DM2, hypothyroidism, CAD s/p PCI initially admitted with falls, elevated troponin; disposition complicated by cognitive impairment requiring guardianship # HTN--on enalapril 20 mg b.i.d., hydralazine 100 mg t.i.d., nifedipine 120 mg daily and hydrochlorothiazide 25 mg daily, dose of nifedipine increased 2 days ago, noted to have some improvement in blood pressure but still has intermittent high blood pressure readings , continue to follow bp on current regimen # cognitive impairment - evaluated by psychiatry does need guardianship , haa hearing in court 02/01 for guardianship # Hx CAD - continue ASA + statin, had bradycardia therefore was not placed on beta- derrek, pulse remains low but stable # DM2 complicated by hypoglycemia - d/c'ed lispro + glimepride; continue MTF alone;Hb A1c only 6.2; does not need fingersticks at this point # hypothyroidism continue LT4 Resolved issue # C diff colitis resolved, s/p 14d of vancomycin treatment # acute grief reaction - due to passing of , met with CARE team # VTE ppx - ambulating well multiple times per day, would consider low risk for VTE, now off LMWH # dispo awaiting guardianship, Basically, the pt's house is not inhabitable [raw sew age backing up into house] . Periodic lab work every 1 to 2 weeks, BMP and CBC
[2021-02-02 15:28] VITALS: BP 187/77; PULSE 79; RESP 19; TEMP 36.3; O2SAT 97
--- NOTE | 2021-02-02 15:39 | MHC.CM.PN ---
PATIENT GUARDIAN HAS NOT YET REACHED OUT TO CASE MANAGEMENT FOLLOWING COURT HEARING ON 02/01/21 PATIENT IS AWARE OF ATTEMPTS TO SECURE LTC AND IS ALSO AWARE THAT PATIENT IS NOT ABLE TO RETURN TO HER FORMER HOME PATIENT IS AGREEABLE TO GOING WHERE HER FRIEND IS BEING TRANSFERRED, BUT STATES I WANT TO GO HOME TO MY OWN HOUSE PATIENT REMINDED SEVERAL TIMES THAT SHE IS NO LONGER ABLE TO SAFELY RETURN TO THE HOME. REFERRAL ADDED TO INCLUDE [facility].
[2021-02-02] MEDS: Donepezil HCl 5 MG TABLET PO (19:57)
[2021-02-02 23:57] VITALS: BP 152/96; PULSE 58; RESP 18; TEMP 36.4; O2SAT 97
[2021-02-03] MEDS: Levothyroxine Sodium 75 MCG TABLET PO (06:35)
[2021-02-03 07:21] VITALS: BP 148/75; PULSE 58; RESP 16; TEMP 36.2; O2SAT 97
[2021-02-03 07:30] LABS: Glucose, Whole Blood 126 mg/dL (60-115)
[2021-02-03 08:03] LABS: Creatinine Clr Calc Pharmacy 32.9; Estimated Glomerular Filt Rate 49
[2021-02-03] MEDS: NIFEdipine ER 30 MG TAB.ER.24 120 MG PO (08:06)
[2021-02-03] MEDS: metFORMIN HCl 500 MG TABLET PO ×2 (08:07→17:18)
[2021-02-03] MEDS: hydrALAZINE HCl 50 MG TABLET 100 MG PO ×2 (08:07→14:06)
[2021-02-03] MEDS: hydroCHLOROthiazide 25 MG TABLET PO (08:08)
[2021-02-03] MEDS: Enalapril Maleate 10 MG TABLET 20 MG PO ×2 (08:08→20:35)
--- NOTE | 2021-02-03 08:15 | P.PNIM_ITS ---
Subjective Subjective Date of Service: 02/03/21 Interval History: Seen in follow for placement issues, BP is better, overall feels depress, no thought about hurting herself Review of Systems no chest pain, no sob, no dizziness, depressed Physical Exam Vital Signs: Vital Signs: Last Vital Signs Temp 97.1 F 02/03/21 07:21 Pulse 58 02/03/21 07:21 Resp 16 02/03/21 07:21 BP 148/75 H 02/03/21 07:21 Pulse Ox 97 02/03/21 07:21 Body Mass Index 20.6 Const: Other: General: AO X 3, no acute distress Resp: CTA bilateral CVS: S1,S2,RRR GI: +BS, NT, no distention Skin: No rash Neuro: motor grossly intact Psych: depressed compare to usual Objective Data Current Medications Generic Name Dose Route Start Last Admin Trade Name Freq PRN Reason Stop Dose Admin Donepezil HCl 5 mg 12/11/20 21:00 02/02/21 19:57 Donepezil Hcl 5 Mg Tablet PO 5 mg BEDTIME RAGHAVENDRA Administration Enalapril Maleate 20 mg 01/24/21 21:00 02/03/21 08:08 Enalapril Maleate 10 Mg Tablet PO 20 mg BID RAGHAVENDRA Administration Hydralazine HCl 100 mg 11/05/20 15:00 02/03/21 08:07 Hydralazine Hcl 50 Mg Tablet PO 100 mg TID RAGHAVENDRA Administration Protocol Hydrochlorothiazide 25 mg 01/25/21 09:00 02/03/21 08:08 Hydrochlorothiazide 25 Mg Tablet PO 25 mg DAILY RAGHAVENDRA Administration Protocol Levothyroxine Sodium 75 mcg 01/13/21 09:00 02/03/21 06:35 Levothyroxine Sodium 75 Mcg Tablet PO 75 mcg DAILY@0600 RAGHAVENDRA Administration Metformin HCl 500 mg 01/13/21 09:00 02/03/21 08:07 Metformin Hcl 500 Mg Tablet PO 500 mg BIDWM RAGHAVENDRA Administration Nifedipine 120 mg 02/01/21 09:00 02/03/21 08:06 Nifedipine Er 30 Mg Tab.Er.24 PO 120 mg DAILY RAGHAVENDRA Administration Protocol Labs CBC & Chem 7: 01/26/21 08:31 02/03/21 06:58 Labs: Laboratory Results - last 24 hr 02/03/21 02/03/21 06:58 07:20 Creatinine 1.07 Estim Creat Clear Calc 32.9 Estimated GFR 49 POC Glucose 126 H Quality Stroke Does the patient have a stroke diagnosis?: No VTE Prior VTE?: No VTE Risk Level:: Medical - moderate - high VTE Device Contraindication: N/A - Device Ordered VTE Drug Contraindication: N/A - Med Ordered Assessment and Plan (1) Dementia, vascular, mixed: Status: Acute (2) HTN (hypertension): Status: Acute (3) Neurocognitive disorder: Status: Acute (4) Non-rheumatic aortic stenosis: Status: Acute (5) Atherosclerotic cardiovascular disease: Status: Acute Assessment and Plan: 85yo F with HTN, HLD, DM2, hypothyroidism, CAD s/p PCI initially admitted with falls, elevated troponin; disposition complicated by cognitive impairment requiring guardianship # HTN--on enalapril 20 mg b.i.d., hydralazine 100 mg t.i.d., nifedipine 120 mg daily and hydrochlorothiazide 25 mg daily, Nifedipine was recently increased with good effect as BP is better but still has intermittent high blood pressure readings , continue to follow bp on current regimen # cognitive impairment - evaluated by psychiatry does need guardianship , process has been # Hx CAD - continue ASA + statin, had bradycardia therefore was not placed on beta- derrek, pulse remains low but stable # DM2 complicated by hypoglycemia - d/c'ed lispro + glimepride; continue MTF alone;Hb A1c only 6.2; does not need fingersticks at this point # hypothyroidism continue LT4 Resolved issue # C diff colitis resolved, s/p 14d of vancomycin treatment # acute grief reaction - due to passing of , met with CARE team # VTE ppx - ambulating well multiple times per day, would consider low risk for VTE, now off LMWH # dispo awaiting guardianship, Basically, the pt's house is not inhabitable [raw sewage backing up into house] . Periodic lab work every 1 to 2 weeks, BMP and CBC #Depression, BHN consult
[2021-02-03 15:04] VITALS: BP 148/65; PULSE 63; RESP 16; TEMP 36.4; O2SAT 97
[2021-02-03 20:35] VITALS: BP 152/72; PULSE 67
[2021-02-03] MEDS: Donepezil HCl 5 MG TABLET PO (20:35)
[2021-02-03 23:49] VITALS: BP 146/67; PULSE 59; RESP 16; TEMP 36.4; O2SAT 96
[2021-02-04] MEDS: Levothyroxine Sodium 75 MCG TABLET PO (06:47)
[2021-02-04 07:26] VITALS: BP 160/84; PULSE 63; RESP 16; TEMP 36.4; O2SAT 96
[2021-02-04 07:32] LABS: Glucose, Whole Blood 126 mg/dL (60-115)
[2021-02-04] MEDS: NIFEdipine ER 30 MG TAB.ER.24 120 MG PO (08:09)
[2021-02-04] MEDS: hydroCHLOROthiazide 25 MG TABLET PO (08:10)
[2021-02-04] MEDS: metFORMIN HCl 500 MG TABLET PO ×2 (08:10→16:39)
[2021-02-04] MEDS: Enalapril Maleate 10 MG TABLET 20 MG PO ×2 (08:10→20:40)
--- NOTE | 2021-02-04 08:48 | P.PNIM_ITS ---
Subjective Subjective Date of Service: 02/04/21 Interval History: Seen in follow for placement issues, BP is better, She is better spirit today Review of Systems no chest pain, no sob, no dizziness, depressed Physical Exam Vital Signs: Vital Signs: Last Vital Signs Temp 97.6 F 02/04/21 07:26 Pulse 63 02/04/21 07:26 Resp 16 02/04/21 07:26 BP 160/84 H 02/04/21 07:26 Pulse Ox 96 02/04/21 07:26 Body Mass Index 20.6 Const: Other: General: AO X 3, no acute distress Resp: CTA bilateral CVS: S1,S2,RRR GI: +BS, NT, no distention Skin: No rash Neuro: motor grossly intact Psych: depressed compare to usual Objective Data Current Medications Generic Name Dose Route Start Last Admin Trade Name Freq PRN Reason Stop Dose Admin Donepezil HCl 5 mg 12/11/20 21:00 02/03/21 20:35 Donepezil Hcl 5 Mg Tablet PO 5 mg BEDTIME RAGHAVENDRA Administration Enalapril Maleate 20 mg 01/24/21 21:00 02/04/21 08:10 Enalapril Maleate 10 Mg Tablet PO 20 mg BID RAGHAVENDRA Administration Hydrochlorothiazide 25 mg 01/25/21 09:00 02/04/21 08:10 Hydrochlorothiazide 25 Mg Tablet PO 25 mg DAILY RAGHAVENDRA Administration Protocol Levothyroxine Sodium 75 mcg 01/13/21 09:00 02/04/21 06:47 Levothyroxine Sodium 75 Mcg Tablet PO 75 mcg DAILY@0600 RAGHAVENDRA Administration Metformin HCl 500 mg 01/13/21 09:00 02/04/21 08:10 Metformin Hcl 500 Mg Tablet PO 500 mg BIDWM RAGHAVENDRA Administration Nifedipine 120 mg 02/01/21 09:00 02/04/21 08:09 Nifedipine Er 30 Mg Tab.Er.24 PO 120 mg DAILY RAGHAVENDRA Administration Protocol Labs CBC & Chem 7: 01/26/21 08:31 02/03/21 06:58 Labs: Laboratory Results - last 24 hr 02/04/21 07:28 POC Glucose 126 H Quality Stroke Does the patient have a stroke diagnosis?: No VTE Prior VTE?: No VTE Risk Level:: Medical - moderate - high VTE Device Contraindication: N/A - Device Ordered VTE Drug Contraindication: N/A - Med Ordered Assessment and Plan (1) Dementia, vascular, mixed: Status: Acute (2) HTN (hypertension): Status: Acute (3) Neurocognitive disorder: Status: Acute (4) Non-rheumatic aortic stenosis: Status: Acute (5) Atherosclerotic cardiovascular disease: Status: Acute Assessment and Plan: 85yo F with HTN, HLD, DM2, hypothyroidism, CAD s/p PCI initially admitted with falls, elevated troponin; disposition complicated by cognitive impairment requiring guardianship # HTN--on enalapril 20 mg b.i.d., hydralazine 100 mg t.i.d., nifedipine 120 mg daily and hydrochlorothiazide 25 mg daily, Nifedipine was recently increased with good effect as BP is better but still has intermittent high blood pressure readings , continue to follow bp on current regimen and if persitently high consider check renal doppler and or nephrology consultation # cognitive impairment - evaluated by psychiatry does need guardianship , process has been slow but ongoing # Hx CAD - continue ASA + statin, had bradycardia therefore was not placed on beta- derrek, pulse remains low but stable # DM2 complicated by hypoglycemia - d/c'ed lispro + glimepride; continue MTF alone;Hb A1c only 6.2; does not need fingersticks at this point # hypothyroidism continue LT4 Resolved issue # C diff colitis resolved, s/p 14d of vancomycin treatment # acute grief reaction - due to passing of , met with CARE team # VTE ppx - ambulating well multiple times per day, would consider low risk for VTE, now off LMWH # dispo awaiting guardianship, Basically, the pt's house is not inhabitable [raw sewage backing up into house] . Periodic lab work every 1 to 2 weeks, BMP and CBC #Depression, BHN consult
[2021-02-04 15:05] VITALS: BP 152/64; PULSE 67; RESP 16; TEMP 36.2; O2SAT 98
[2021-02-04 20:40] VITALS: BP 159/65; PULSE 69
[2021-02-04] MEDS: Donepezil HCl 5 MG TABLET PO (20:40)
[2021-02-05] VITALS: BP 173/87; PULSE 65; RESP 16; TEMP 36.2; O2SAT 96
[2021-02-05] MEDS: Levothyroxine Sodium 75 MCG TABLET PO (05:40)
[2021-02-05 08:00] VITALS: BP 184/91; PULSE 77; RESP 18; TEMP 36.2; O2SAT 98
[2021-02-05] MEDS: hydroCHLOROthiazide 25 MG TABLET PO (09:11)
[2021-02-05] MEDS: metFORMIN HCl 500 MG TABLET PO ×2 (09:11→16:49)
[2021-02-05] MEDS: NIFEdipine ER 30 MG TAB.ER.24 120 MG PO (09:11)
[2021-02-05] MEDS: Enalapril Maleate 10 MG TABLET 20 MG PO ×2 (09:11→20:05)
[2021-02-05 09:23] LABS: Hematocrit 27.2 % (37-47); Hemoglobin 8.9 g/dl (12.0-16.0); Mean Corpuscular HGB Conc 32.7 g/dl (31.0-35.0); Mean Corpuscular Hemoglobin 30.8 pg (27.0-33.0); Mean Corpuscular Volume 94.1 fL (80-98); Mean Platelet Volume 10.9 fL (9.4-12.3); Platelet Count 309 X10*3/uL (160-400); Red Blood Count 2.89 X10*6/uL (4.20-5.50); Red Cell Distribution Width 13.2 % (11.0-16.0); White Blood Count 7.9 X10*3/uL (4.8-10.8)
[2021-02-05 09:44] LABS: Anion Gap 12 (12-20); Blood Urea Nitrogen 37 mg/dL (9-16); Calcium 9.2 mg/dL (8.4-10.2); Carbon Dioxide 27 mmol/L (22-29); Chloride 106 mmol/L (96-108); Creatinine Clr Calc Pharmacy 29.8; Estimated Glomerular Filt Rate 44; Glucose Random 284 mg/dL (60-115); Potassium 3.9 mmol/L (3.3-5.1); Sodium 141 mmol/L (135-145)
--- NOTE | 2021-02-05 11:57 | P.PNIM_ITS ---
Subjective Subjective Date of Service: 02/06/21 Interval History: Follow-up hypertension awaiting guardianship/placement labile emotions going from crying to talking regularly talking about her who going into different empty patient rooms Physical Exam Vital Signs: Vital Signs: Last Vital Signs Temp 97.1 F 02/05/21 08:00 Pulse 77 02/05/21 08:00 Resp 18 02/05/21 08:00 BP 184/91 H 02/05/21 08:00 Pulse Ox 98 02/05/21 08:00 Body Mass Index 20.6 Appearing in no acute distress,labile attitude, goes from crying to talking normal lung sounds are clear to auscultation heart regular rate rhythm, clear S1, S2 positive bowel sounds, abdomen is soft, nontender neuro patient is alert x3, no focal deficits Objective Data Current Medications Generic Name Dose Route Start Last Admin Trade Name Freq PRN Reason Stop Dose Admin Donepezil HCl 5 mg 12/11/20 21:00 02/04/21 20:40 Donepezil Hcl 5 Mg Tablet PO 5 mg BEDTIME RAGHAVENDRA Administration Enalapril Maleate 20 mg 01/24/21 21:00 02/05/21 09:11 Enalapril Maleate 10 Mg Tablet PO 20 mg BID RAGHAVENDRA Administration Hydrochlorothiazide 25 mg 01/25/21 09:00 02/05/21 09:11 Hydrochlorothiazide 25 Mg Tablet PO 25 mg DAILY RAGHAVENDRA Administration Protocol Levothyroxine Sodium 75 mcg 01/13/21 09:00 02/05/21 05:40 Levothyroxine Sodium 75 Mcg Tablet PO 75 mcg DAILY@0600 RAGHAVENDRA Administration Metformin HCl 500 mg 01/13/21 09:00 02/05/21 09:11 Metformin Hcl 500 Mg Tablet PO 500 mg BIDWM RAGHAVENDRA Administration Nifedipine 120 mg 02/01/21 09:00 02/05/21 09:11 Nifedipine Er 30 Mg Tab.Er.24 PO 120 mg DAILY RAGHAVENDRA Administration Protocol Labs CBC & Chem 7: 02/05/21 09:11 02/05/21 09:11 Labs: Laboratory Results - last 24 hr 02/05/21 02/05/21 09:11 09:11 WBC 7.9 RBC 2.89 L Hgb 8.9 L Hct 27.2 L MCV 94.1 MCH 30.8 MCHC 32.7 RDW 13.2 Plt Count 309 MPV 10.9 Absolute Nucleated RBC 0.000 Nucleated RBC % (auto) 0.0 Sodium 141 Potassium 3.9 Chloride 106 Carbon Dioxide 27 Anion Gap 12 BUN 37 H Creatinine 1.18 Estim Creat Clear Calc 29.8 Estimated GFR 44 Random Glucose 284 H D Calcium 9.2 Quality Stroke Does the patient have a stroke diagnosis?: No VTE Prior VTE?: No VTE Risk Level:: Medical - moderate - high VTE Device Contraindication: N/A - Device Ordered VTE Drug Contraindication: N/A - Med Ordered Assessment and Plan (1) HTN (hypertension): Status: Acute Assessment and Plan: 85yo F with HTN, HLD, DM2, hypothyroidism, CAD s/p PCI. initially admitted with falls, elevated troponin; disposition complicated by cognitive impairment requiring guardianship # HTN. on enalapril 20 mg b.i.d., hydralazine 100 mg t.i.d., nifedipine 120 mg daily and hydrochlorothiazide 25 mg daily, Nifedipine was recently increased with good effect as BP is better but still has intermittent high blood pressure readings , continue to follow bp on current regimen and if persistently high consider check renal doppler and or nephrology consultation # cognitive impairment - evaluated by psychiatry does need guardianship , process has been slow but ongoing # Hx CAD - continue ASA + statin, had bradycardia therefore was not placed on beta- derrek, pulse remains low but stable # DM2 complicated by hypoglycemia - d/c'ed lispro + glimepride; continue MTF alone;Hb A1c only 6.2; does not need fingersticks at this point # hypothyroidism continue LT4 Resolved issue # C diff colitis resolved, s/p 14d of vancomycin treatment # acute grief reaction/depression - due to passing of , met with CARE team, [facility] # VTE ppx - ambulating well multiple times per day, would consider low risk for VTE, now off LMWH # DISPO. awaiting guardianship, Basically, the pt's house is not inhabitable [raw sewage backing up into house] . Periodic lab work every 1 to 2 weeks, BMP and CBC Attending: Dr. Blevins Full code
--- NOTE | 2021-02-05 12:24 | MHC.CM.PN ---
NURSE PROBATE CLERK NOTE LATE ENTRY MET WITH PATIENT ALONG WITH CO-WORKER HAZARDOUS MATERIALS ANALYST . WITH PATIENT LAST FRIDAY , SHE EXPRESSED DEEP FRUSTRATION AT BEEN HER IN THE HOSPITAL WHEN SHE IS NO LONGER SICK , AND WHY SHE COULD NOT JUST GO HOME , SHE WAS AWARE OF THE COURT DATE FOR CONSERVATORSHIP CONTINUATION AND ASSIGNED GUARDIAN SHIP FOR CRISTINA EDWARDS, SHE KEPT REPEATING EVRY THING OVER AND OVER AND IT WAS LIKE SHE JUST FOUND OUT THE SHE COULD NOT RETURN BACK HOME IT IS INHABITABLE. OFFER HER TIME TO EXPRESS HER FEELINGS, RECEIVED FROM THE COURT CONSERVATIVE SHIP AND GUARDIAN SHIP FOR PATIENT NAMING CRISTINA EDWARDS CASE MANGER TO CONTINUE TO FOLLOW
[2021-02-05 15:16] VITALS: BP 176/84; PULSE 60; RESP 16; TEMP 36.4; O2SAT 98
--- NOTE | 2021-02-05 16:08 | PC.NURSE ---
Skin assesment completed today. No skin issues noted.
[2021-02-05 20:05] VITALS: BP 158/61; PULSE 56
[2021-02-05] MEDS: Donepezil HCl 5 MG TABLET PO (20:05)
[2021-02-05 23:07] VITALS: BP 153/74; PULSE 61; RESP 18; TEMP 36.3; O2SAT 95
[2021-02-06] MEDS: Levothyroxine Sodium 75 MCG TABLET PO (06:17)
[2021-02-06 07:56] VITALS: BP 149/61; PULSE 60; RESP 17; TEMP 36.6; O2SAT 99
[2021-02-06] MEDS: NIFEdipine ER 30 MG TAB.ER.24 120 MG PO (08:25)
[2021-02-06] MEDS: hydroCHLOROthiazide 25 MG TABLET PO (08:25)
[2021-02-06] MEDS: Enalapril Maleate 10 MG TABLET 20 MG PO ×2 (08:25→20:38)
[2021-02-06] MEDS: metFORMIN HCl 500 MG TABLET PO ×2 (08:25→16:19)
--- NOTE | 2021-02-06 12:52 | P.PNIM_ITS ---
Subjective Subjective Date of Service: 02/06/21 <Winifred Douglas NP - Last Filed: 02/06/21 12:55> 02/07/21 <Dany Blevins MD - Last Filed: 02/07/21 16:19> Interval History: Follow-up hypertension awaiting guardianship/placement labile emotions going from crying to talking regularly talking about her who going into different empty patient rooms <Winifred Douglas NP - Last Filed: 02/06/21 12:55> Physical Exam Vital Signs: Vital Signs: Last Vital Signs Temp 97.8 F 02/06/21 07:56 Pulse 60 02/06/21 07:56 Resp 17 02/06/21 07:56 BP 149/61 H 02/06/21 07:56 Pulse Ox 99 02/06/21 07:56 Body Mass Index 20.6 <Winifred Douglas NP - Last Filed: 02/06/21 12:55> Appearing in no acute distress, labile lung sounds are clear to auscultation heart regular rate rhythm positive bowel sounds neuro patient is alert <Winifred Douglas NP - Last Filed: 02/06/21 12:55> Objective Data Current Medications Generic Name Dose Route Start Last Admin Trade Name Sachaq PRN Reason Stop Dose Admin Donepezil HCl 5 mg 12/11/20 21:00 02/05/21 20:05 Donepezil Hcl 5 Mg Tablet PO 5 mg BEDTIME RAGHAVENDRA Administration Enalapril Maleate 20 mg 01/24/21 21:00 02/06/21 08:25 Enalapril Maleate 10 Mg Tablet PO 20 mg BID RAGHAVENDRA Administration Hydrochlorothiazide 25 mg 01/25/21 09:00 02/06/21 08:25 Hydrochlorothiazide 25 Mg Tablet PO 25 mg DAILY RAGHAVENDRA Administration Protocol Levothyroxine Sodium 75 mcg 01/13/21 09:00 02/06/21 06:17 Levothyroxine Sodium 75 Mcg Tablet PO 75 mcg DAILY@0600 RAGHAVENDRA Administration Metformin HCl 500 mg 01/13/21 09:00 02/06/21 08:25 Metformin Hcl 500 Mg Tablet PO 500 mg BIDWM RAGHAVENDRA Administration Nifedipine 120 mg 02/01/21 09:00 02/06/21 08:25 Nifedipine Er 30 Mg Tab.Er.24 PO 120 mg DAILY RAGHAVENDRA Administration Protocol <Winifred Douglas NP - Last Filed: 02/06/21 12:55> Labs CBC & Chem 7: : 02/05/21 09:11 02/05/21 09:11 <Winifred Douglas NP - Last Filed: 02/06/21 12:55> Microbiology Microbiology Results: Microbiology 11/24/20 08:18 Stool Stool Culture - Final 09/21/20 Unknown Urine clean catch - Clean Catch Midstream Urine Culture - Final No growth. <Winifred Douglas NP - Last Filed: 02/06/21 12:55> Progress Note: A&P (1) Dementia, vascular, mixed: Status: Acute <Winifred Douglas NP - Last Filed: 02/06/21 12:55> Assessment and Plan: 85yo F with HTN, HLD, DM2, hypothyroidism, CAD s/p PCI. initially admitted with falls, elevated troponin; disposition complicated by cognitive impairment requiring guardianship No change in status # HTN. on enalapril 20 mg b.i.d., hydralazine 100 mg t.i.d., nifedipine 120 mg daily and hydrochlorothiazide 25 mg daily, Nifedipine was recently increased with good effect as BP is better but still has intermittent high blood pressure readings , continue to follow bp on current regimen and if persistently high consider check renal doppler and or nephrology consultation # cognitive impairment - evaluated by psychiatry does need guardianship , process has been slow but ongoing # Hx CAD - continue ASA + statin, had bradycardia therefore was not placed on beta- derrek, pulse remains low but stable # DM2 complicated by hypoglycemia - metformin # hypothyroidism continue LT # C diff colitis resolved, s/p 14d of vancomycin treatment # acute grief reaction/depression - due to passing of , met with CARE team, N # VTE ppx - ambulating well multiple times per day, would consider low risk for VTE, now off LMWH # DISPO. awaiting guardianship, Basically, the pt's house is not inhabitable [raw sewage backing up into house] . Periodic lab work every 1 to 2 weeks, BMP and CBC Attending: Dr. Blevins Full code <Winifred Douglas NP - Last Filed: 02/06/21 12:55> Quality Stroke Does the patient have a stroke diagnosis?: No <Winifred Douglas NP - Last Filed: 02/06/21 12:55> VTE Prior VTE?: No <Winifred Douglas NP - Last Filed: 02/06/21 12:55> VTE Risk Level:: Medical - moderate - high <Winifred Douglas NP - Last Filed: 02/06/21 12:55> VTE Device Contraindication: N/A - Device Ordered <Winifred Douglas NP - Last Filed: 02/06/21 12:55> VTE Drug Contraindication: N/A - Med Ordered <Winifred Douglas NP - Last Filed: 02/06/21 12:55>
[2021-02-06 15:36] VITALS: BP 172/62; PULSE 65; RESP 20; TEMP 36.4; O2SAT 97
[2021-02-06 20:38] VITALS: BP 172/62; PULSE 65
[2021-02-06] MEDS: Donepezil HCl 5 MG TABLET PO (20:38)
[2021-02-07] VITALS: BP 150/73; PULSE 60; RESP 18; TEMP 36.4; O2SAT 97
[2021-02-07] MEDS: Levothyroxine Sodium 75 MCG TABLET PO (07:13)
[2021-02-07 08:00] VITALS: BP 155/69; PULSE 59; RESP 16; TEMP 36.2; O2SAT 98
[2021-02-07 08:20] LABS: Glucose, Whole Blood 140 mg/dL (60-115)
[2021-02-07] MEDS: metFORMIN HCl 500 MG TABLET PO ×2 (08:25→17:07)
[2021-02-07] MEDS: NIFEdipine ER 30 MG TAB.ER.24 120 MG PO (08:25)
[2021-02-07] MEDS: hydroCHLOROthiazide 25 MG TABLET PO (08:25)
[2021-02-07] MEDS: Enalapril Maleate 10 MG TABLET 20 MG PO ×2 (08:25→20:36)
--- NOTE | 2021-02-07 09:32 | P.PNIM_ITS ---
Subjective Subjective Date of Service: 02/07/21 Interval History: Seen in follow for placement issues, emotionally better, BP ok Review of Systems no chest pain, no sob, no dizziness, depressed Physical Exam Vital Signs: Vital Signs: Last Vital Signs Temp 97.2 F 02/07/21 08:00 Pulse 59 02/07/21 08:00 Resp 16 02/07/21 08:00 BP 155/69 H 02/07/21 08:00 Pulse Ox 98 02/07/21 08:00 Body Mass Index 20.6 Const: Other: General: AO X 3, no acute distress Resp: CTA bilateral CVS: S1,S2,RRR GI: +BS, NT, no distention Skin: No rash Neuro: motor grossly intact Psych: depressed compare to usual Objective Data Current Medications Generic Name Dose Route Start Last Admin Trade Name Freq PRN Reason Stop Dose Admin Donepezil HCl 5 mg 12/11/20 21:00 02/06/21 20:38 Donepezil Hcl 5 Mg Tablet PO 5 mg BEDTIME RAGHAVENDRA Administration Enalapril Maleate 20 mg 01/24/21 21:00 02/07/21 08:25 Enalapril Maleate 10 Mg Tablet PO 20 mg BID RAGHAVENDRA Administration Hydrochlorothiazide 25 mg 01/25/21 09:00 02/07/21 08:25 Hydrochlorothiazide 25 Mg Tablet PO 25 mg DAILY RAGHAVENDRA Administration Protocol Levothyroxine Sodium 75 mcg 01/13/21 09:00 02/07/21 07:13 Levothyroxine Sodium 75 Mcg Tablet PO 75 mcg DAILY@0600 RAGHAVENDRA Administration Metformin HCl 500 mg 01/13/21 09:00 02/07/21 08:25 Metformin Hcl 500 Mg Tablet PO 500 mg BIDWM RAGHAVENDRA Administration Nifedipine 120 mg 02/01/21 09:00 02/07/21 08:25 Nifedipine Er 30 Mg Tab.Er.24 PO 120 mg DAILY RAGHAVENDRA Administration Protocol Labs CBC & Chem 7: 02/05/21 09:11 02/05/21 09:11 Labs: Laboratory Results - last 24 hr 02/07/21 08:07 POC Glucose 140 H Quality Stroke Does the patient have a stroke diagnosis?: No VTE Prior VTE?: No VTE Risk Level:: Medical - moderate - high VTE Device Contraindication: N/A - Device Ordered VTE Drug Contraindication: N/A - Med Ordered Assessment and Plan (1) Dementia, vascular, mixed: Status: Acute Assessment and Plan: 85yo F with HTN, HLD, DM2, hypothyroidism, CAD s/p PCI. initially admitted with falls, elevated troponin; disposition complicated by cognitive impairment requiring guardianship No change in status # HTN. on enalapril 20 mg b.i.d., hydralazine 100 mg t.i.d., nifedipine 120 mg daily and hydrochlorothiazide 25 mg daily, Nifedipine was recently increased with better effect but still has intermittent high blood pressure readings , continue to follow bp on current regimen and if persistently high consider check renal doppler and or nephrology consultation # cognitive impairment - evaluated by psychiatry does need guardianship , process has been slow but ongoing # Hx CAD - continue ASA + statin, had bradycardia therefore was not placed on beta- derrek, pulse remains low but stable # DM2 complicated by hypoglycemia - metformin # hypothyroidism continue LT # C diff colitis resolved, s/p 14d of vancomycin treatment # acute grief reaction/depression - due to passing of , met with CARE team, MARTHA # VTE ppx - ambulating well multiple times per day, would consider low risk for VTE, now off LMWH # DISPO. awaiting guardianship, Basically, the pt's house is not inhabitable [raw sewage backing up into house] . Periodic lab work every 1 to 2 weeks, BMP and CBC Full code
[2021-02-07 14:00] VITALS: BMI 20.1
[2021-02-07 15:41] VITALS: BP 162/77; PULSE 60; RESP 20; TEMP 36.8; O2SAT 97
--- NOTE | 2021-02-07 15:59 | MHC.CM.PN ---
NURSE REVIEW ANALYST NOTE ELECTRONIC MEDICAL RECORD REVIEWED , SPOKE WITH PATIENTS COURT APPOINTED CONSERVATOR AND GUARDIAN (PAPERWORK UPLOADED TO [facility] SHE WILL START THE [facility] APPLICATION AND PATIENT WOULD GO UNDER HER [facility] INS ( SHE HAS NO MEDICARE SKILL AT THIS TIME) SOME REFERRALS HAD BEEN INIATED AND MORE ADDED [facility], [facility], [facility], [facility] , [facility] LOOKING FOR DEMENTIA UNIT I ASKED IF MICHAEL THE CONSERVATOR COMPLETES THE [facility] APPLICATION AND COPY WAS GIVEN TO ACCEPTING FACILITY WOULD YOU CONSIDER TAKING HER IF THE APPLICATION LOOKED GOOD OR HAVE TO HAVE IT APPROvED UPON ENTERING THERE FACILITY. PRIOR TO THE ABOVE INFORMATION , MET AT LENGTH WITH PATIENT SHE IS FRUSTRATED ABOUT HER NOT BEING BURIED AND KEPT AT THE [place] IN [facility], AND HOW CAN THEY DEMOLISH THE BAR AND SELL HER PROPERTY IN THE [place], ALSO SHE VOICED CONCERN her personal belongings in the home ,are they still there or have they been destroyed , i reported that i did not know thasi and she would need to call michael rayo the conservator (as she has THE NAME AND NUMBER) updated case management administrative services coordinator and to [facility] managed care nurse to continue to follow for discharge needs and correspondence with dementia [facility]
[2021-02-07 20:36] VITALS: BP 162/77; PULSE 60
[2021-02-07] MEDS: Donepezil HCl 5 MG TABLET PO (20:36)
[2021-02-07 23:39] VITALS: BP 164/66; PULSE 62; RESP 18; TEMP 36.3; O2SAT 97
[2021-02-08] MEDS: Levothyroxine Sodium 75 MCG TABLET PO (06:17)
[2021-02-08 08:00] VITALS: BP 147/75; PULSE 55; RESP 17; TEMP 36.3; O2SAT 99
[2021-02-08 08:11] LABS: Glucose, Whole Blood 169 mg/dL (60-115)
[2021-02-08 08:58] VITALS: BP 147/75; PULSE 62
[2021-02-08] MEDS: Enalapril Maleate 10 MG TABLET 20 MG PO ×2 (08:58→20:11)
[2021-02-08] MEDS: NIFEdipine ER 30 MG TAB.ER.24 120 MG PO (08:58)
[2021-02-08] MEDS: hydroCHLOROthiazide 25 MG TABLET PO (08:58)
[2021-02-08] MEDS: metFORMIN HCl 500 MG TABLET PO ×2 (08:59→16:52)
--- NOTE | 2021-02-08 11:25 | P.PNIM_ITS ---
Subjective Subjective Date of Service: 02/08/21 Interval History: no new events Physical Exam Vital Signs: Vital Signs: Last Vital Signs Temp 97.4 F 02/08/21 08:00 Pulse 62 02/08/21 08:58 Resp 17 02/08/21 08:00 BP 147/75 H 02/08/21 08:58 Pulse Ox 99 02/08/21 08:00 Body Mass Index 20.1 gen: NAD lungs: no resp distress psych: impaired insight Objective Data Current Medications Generic Name Dose Route Start Last Admin Trade Name Srinivas PRN Reason Stop Dose Admin Donepezil HCl 5 mg 12/11/20 21:00 02/07/21 20:36 Donepezil Hcl 5 Mg Tablet PO 5 mg BEDTIME RAGHAVENDRA Administration Enalapril Maleate 20 mg 01/24/21 21:00 02/08/21 08:58 Enalapril Maleate 10 Mg Tablet PO 20 mg BID RAGHAVENDRA Administration Hydrochlorothiazide 25 mg 01/25/21 09:00 02/08/21 08:58 Hydrochlorothiazide 25 Mg Tablet PO 25 mg DAILY RAGHAVENDRA Administration Protocol Levothyroxine Sodium 75 mcg 01/13/21 09:00 02/08/21 06:17 Levothyroxine Sodium 75 Mcg Tablet PO 75 mcg DAILY@0600 RAGHAVENDRA Administration Metformin HCl 500 mg 01/13/21 09:00 02/08/21 08:59 Metformin Hcl 500 Mg Tablet PO 500 mg BIDWM RAGHAVENDRA Administration Nifedipine 120 mg 02/01/21 09:00 02/08/21 08:58 Nifedipine Er 30 Mg Tab.Er.24 PO 120 mg DAILY RAGHAVENDRA Administration Protocol Labs CBC & Chem 7: 02/05/21 09:11 02/05/21 09:11 Labs: Laboratory Results - last 24 hr 02/08/21 08:03 POC Glucose 169 H Quality Stroke Does the patient have a stroke diagnosis?: No VTE Prior VTE?: No VTE Risk Level:: Medical - moderate - high VTE Device Contraindication: N/A - Device Ordered VTE Drug Contraindication: N/A - Med Ordered Assessment and Plan (1) Dementia, vascular, mixed: Status: Acute Assessment and Plan: hospital d#[id number] 85yo F with HTN, HLD, DM2, hypothyroidism, CAD s/p PCI. initially admitted with falls, elevated troponin; disposition complicated by cognitive impairment requiring guardianship No change in status # HTN - on enalapril 20 mg b.i.d., hydralazine 100 mg t.i.d., nifedipine 120 mg daily and hydrochlorothiazide 25 mg daily, Nifedipine was recently increased with better effect but still has intermittent high blood pressure readings , continue to follow bp on current regimen and if persistently high consider check renal doppler and or nephrology consultation # cognitive impairment - evaluated by psychiatry does need guardianship , process has been slow but ongoing # hx CAD - continue ASA + statin, had bradycardia therefore was not placed on beta- derrek, pulse remains low but stable # DM2 complicated by hypoglycemia - metformin # hypothyroidism - continue LT4 # C diff colitis resolved, s/p 14d of vancomycin treatment # acute grief reaction/depression - due to passing of , met with CARE team, MARTHA # VTE ppx - ambulating well multiple times per day, would consider low risk for VTE, now off LMWH # DISPO. awaiting guardianship, Basically, the pt's house is not inhabitable [raw sewage backing up into house] . Periodic lab work every 1 to 2 weeks, BMP and CBC Full code
[2021-02-08 15:10] VITALS: BP 152/54; PULSE 60; RESP 16; TEMP 35.7; O2SAT 98
[2021-02-08] MEDS: Donepezil HCl 5 MG TABLET PO (20:11)
[2021-02-08 23:07] VITALS: BP 164/58; PULSE 61; RESP 16; TEMP 36.6; O2SAT 96
[2021-02-09] MEDS: Levothyroxine Sodium 75 MCG TABLET PO (06:40)
[2021-02-09 07:19] VITALS: BP 180/74; PULSE 54; RESP 15; TEMP 36.3; O2SAT 97
[2021-02-09 07:25] LABS: Glucose, Whole Blood 135 mg/dL (60-115)
[2021-02-09] MEDS: hydroCHLOROthiazide 25 MG TABLET PO (07:40)
[2021-02-09] MEDS: metFORMIN HCl 500 MG TABLET PO ×2 (07:40→16:30)
[2021-02-09] MEDS: Enalapril Maleate 10 MG TABLET 20 MG PO ×2 (07:41→20:57)
[2021-02-09] MEDS: NIFEdipine ER 30 MG TAB.ER.24 120 MG PO (07:41)
[2021-02-09] MEDS: Spironolactone 25 MG TABLET PO (09:28)
--- NOTE | 2021-02-09 11:14 | P.PNIM_ITS ---
Subjective Subjective Date of Service: 02/09/21 Interval History: no complaints no chest pain no headache Physical Exam Vital Signs: Vital Signs: Last Vital Signs Temp 97.3 F 02/09/21 07:19 Pulse 54 02/09/21 07:19 Resp 15 02/09/21 07:19 BP 180/74 H 02/09/21 07:19 Pulse Ox 97 02/09/21 07:19 Body Mass Index 20.1 gen: NAD lungs: clear, no crackles CV: RRR no m/r/g psych: impaired insight Objective Data Current Medications Generic Name Dose Route Start Last Admin Trade Name Sachaq PRN Reason Stop Dose Admin Donepezil HCl 5 mg 12/11/20 21:00 02/08/21 20:11 Donepezil Hcl 5 Mg Tablet PO 5 mg BEDTIME RAGHAVENDRA Administration Enalapril Maleate 20 mg 01/24/21 21:00 02/09/21 07:41 Enalapril Maleate 10 Mg Tablet PO 20 mg BID RAGHAVENDRA Administration Hydrochlorothiazide 25 mg 01/25/21 09:00 02/09/21 07:40 Hydrochlorothiazide 25 Mg Tablet PO 25 mg DAILY RAGHAVENDRA Administration Protocol Levothyroxine Sodium 75 mcg 01/13/21 09:00 02/09/21 06:40 Levothyroxine Sodium 75 Mcg Tablet PO 75 mcg DAILY@0600 RAGHAVENDRA Administration Metformin HCl 500 mg 01/13/21 09:00 02/09/21 07:40 Metformin Hcl 500 Mg Tablet PO 500 mg BIDWM RAGHAVENDRA Administration Nifedipine 120 mg 02/01/21 09:00 02/09/21 07:41 Nifedipine Er 30 Mg Tab.Er.24 PO 120 mg DAILY RAGHAVENDRA Administration Protocol Spironolactone 25 mg 02/09/21 09:00 02/09/21 09:28 Spironolactone 25 Mg Tablet PO 25 mg DAILY RAGHAVENDRA Administration Protocol Labs CBC & Chem 7: 02/05/21 09:11 02/05/21 09:11 Labs: Laboratory Results - last 24 hr 02/09/21 07:18 POC Glucose 135 H Quality Stroke Does the patient have a stroke diagnosis?: No VTE Prior VTE?: No VTE Risk Level:: Medical - moderate - high VTE Device Contraindication: N/A - Device Ordered VTE Drug Contraindication: N/A - Med Ordered Assessment and Plan (1) Dementia, vascular, mixed: Status: Acute Assessment and Plan: hospital d#[id number] 85yo F with HTN, HLD, DM2, hypothyroidism, CAD s/p PCI. initially admitted with falls, elevated troponin; disposition complicated by cognitive impairment requiring guardianship No change in status # HTN - on enalapril 20 mg b.i.d., nifedipine 120 mg daily and hydrochlorothiazide 25 mg daily - will add spironolactone 25 mg daily and recheck BMP in am # cognitive impairment - evaluated by psychiatry does need guardianship , process has been slow but ongoing # hx CAD - continue ASA + statin, had bradycardia therefore was not placed on beta- derrek, pulse remains low but stable # DM2 complicated by hypoglycemia - metformin # hypothyroidism - continue LT4 # C diff colitis resolved, s/p 14d of vancomycin treatment # acute grief reaction/depression - due to passing of , met with CARE team, MARTHA # VTE ppx - ambulating well multiple times per day, would consider low risk for VTE, now off LMWH # DISPO. awaiting guardianship, Basically, the pt's house is not inhabitable [raw sewage backing up into house] . Periodic lab work every 1 to 2 weeks, BMP and CBC Full code
--- NOTE | 2021-02-09 13:24 | MHC.CM.PN ---
NURSE FRIT MIXER NTOE ELECTRONIC MEDICAL RECORD REVIEWED ALONG WITH CASE DISCUSSED WITH STAFF NURSE . IN RESPONSE TO [facility] FACILITY THE [facility]WOWING FACILITIES DECLINED SECONDARY TO NO APPROPRIATE BED [facility] AND NO SECURED UNIT. [facility]AY AT [facility] NO SECURED UNIT [facility] NO SECURED UNIT [facility] NO SECURED UNIT . THE FOLLOW FACILITIES WILLING TO CONTINUE TO FOLLOW [facility]ARE [facility] [place]
[2021-02-09 16:00] VITALS: BP 184/77; PULSE 63; RESP 15; TEMP 36; O2SAT 95
[2021-02-09 20:57] VITALS: BP 188/81; PULSE 73
[2021-02-09] MEDS: Donepezil HCl 5 MG TABLET PO (20:57)
[2021-02-09 23:19] VITALS: BP 169/71; PULSE 59; RESP 16; TEMP 36.4; O2SAT 96
[2021-02-10] MEDS: Levothyroxine Sodium 75 MCG TABLET PO (05:49)
[2021-02-10 07:44] VITALS: BP 180/85; PULSE 57; RESP 17; TEMP 36.2; O2SAT 97
[2021-02-10 07:53] LABS: Anion Gap 12 (12-20); Blood Urea Nitrogen 37 mg/dL (9-16); Calcium 8.9 mg/dL (8.4-10.2); Carbon Dioxide 26 mmol/L (22-29); Chloride 108 mmol/L (96-108); Creatinine Clr Calc Pharmacy 34.3; Estimated Glomerular Filt Rate 52; Glucose Random 144 mg/dL (60-115); Potassium 4.1 mmol/L (3.3-5.1); Sodium 142 mmol/L (135-145)
[2021-02-10] MEDS: hydroCHLOROthiazide 25 MG TABLET PO (08:03)
[2021-02-10] MEDS: NIFEdipine ER 30 MG TAB.ER.24 120 MG PO (08:03)
[2021-02-10] MEDS: metFORMIN HCl 500 MG TABLET PO ×2 (08:03→16:08)
[2021-02-10] MEDS: Enalapril Maleate 10 MG TABLET 20 MG PO ×2 (08:03→21:29)
[2021-02-10] MEDS: Spironolactone 25 MG TABLET PO (08:04)
--- NOTE | 2021-02-10 12:09 | HO.PM.IMPN ---
Subjective Subjective Date of Service: 02/10/21 Interval History: No acute complaints, patient noted to be ambulating in hallways with walker. 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, no dizziness CVS no chest pain, no palpitation GI no nausea, no vomiting Physical Exam Vital Signs: Vital Signs: Last Vital Signs Temp 97.2 F 02/10/21 07:44 Pulse 57 02/10/21 07:44 Resp 17 02/10/21 07:44 BP 180/85 H 02/10/21 07:44 Pulse Ox 97 02/10/21 07:44 Body Mass Index 20.1 General: Ax O X 3, no acute distress Resp: CTA bilaterally CVS: Regular rate rhythm GI: Abdomen soft, nontender, bowel sounds audible Skin: No rash Neuro: motor grossly intact Psych: appropriate affect Objective Data Current Medications Generic Name Dose Route Start Last Admin Trade Name Freq PRN Reason Stop Dose Admin Donepezil HCl 5 mg 12/11/20 21:00 02/09/21 20:57 Donepezil Hcl 5 Mg Tablet PO 5 mg BEDTIME RAGHAVENDRA Administration Enalapril Maleate 20 mg 01/24/21 21:00 02/10/21 08:03 Enalapril Maleate 10 Mg Tablet PO 20 mg BID RAGHAVENDRA Administration Hydrochlorothiazide 25 mg 01/25/21 09:00 02/10/21 08:03 Hydrochlorothiazide 25 Mg Tablet PO 25 mg DAILY RAGHAVENDRA Administration Protocol Levothyroxine Sodium 75 mcg 01/13/21 09:00 02/10/21 05:49 Levothyroxine Sodium 75 Mcg Tablet PO 75 mcg DAILY@0600 RAGHAVENDRA Administration Metformin HCl 500 mg 01/13/21 09:00 02/10/21 08:03 Metformin Hcl 500 Mg Tablet PO 500 mg BIDWM RAGHAVENDRA Administration Nifedipine 120 mg 02/01/21 09:00 02/10/21 08:03 Nifedipine Er 30 Mg Tab.Er.24 PO 120 mg DAILY RAGHAVENDRA Administration Protocol Spironolactone 25 mg 02/09/21 09:00 02/10/21 08:04 Spironolactone 25 Mg Tablet PO 25 mg DAILY RAGHAVENDRA Administration Protocol Labs CBC & Chem 7: 02/05/21 09:11 02/10/21 06:23 Labs: Laboratory Results - last 24 hr 02/10/21 06:23 Sodium 142 Potassium 4.1 Chloride 108 Carbon Dioxide 26 Anion Gap 12 BUN 37 H Creatinine 1.01 Estim Creat Clear Calc 34.3 Estimated GFR 52 Random Glucose 144 H D Calcium 8.9 Quality Stroke Does the patient have a stroke diagnosis?: No VTE Prior VTE?: No VTE Risk Level:: Medical - moderate - high VTE Device Contraindication: N/A - Device Ordered VTE Drug Contraindication: N/A - Med Ordered Assessment and Plan (1) HTN (hypertension): Status: Acute (2) Dementia, vascular, mixed: Status: Acute (3) Communicating hydrocephalus: Status: Acute (4) Neurocognitive disorder: Status: Acute (5) Non-rheumatic aortic stenosis: Status: Acute (6) Atherosclerotic cardiovascular disease: Status: Acute Assessment and Plan: 85yo F with HTN, HLD, DM2, hypothyroidism, CAD s/p PCI. initially admitted with falls, elevated troponin; disposition complicated by cognitive impairment requiring guardianship No change in status # HTN uncontrolled blood pressure BP remains elevated systolic BP greater than 180 - on enalapril 20 mg b.i.d., nifedipine 120 mg daily, Aldactone 25 mg and hydrochlorothiazide 25 mg daily, will resume hydralazine 100 mg t.i.d. and DC hydrochlorothiazide - consult Nephrology if BP remains elevated # cognitive impairment - evaluated by psychiatry does need guardianship , process has been slow but ongoing # hx CAD - continue ASA + statin, had bradycardia therefore was not placed on beta-derrek, pulse remains low but stable # DM2 complicated by hypoglycemia - bs stable ,continue metformin # hypothyroidism - continue LT4 # C diff colitis resolved, s/p 14d of vancomycin treatment # acute grief reaction/depression - due to passing of , met with CARE team, MARTHA # VTE ppx - ambulating well multiple times per day, would consider low risk for VTE, now off LMWH
[2021-02-10 15:55] VITALS: BP 151/70; PULSE 63; RESP 14; TEMP 36.2; O2SAT 98
[2021-02-10] MEDS: hydrALAZINE HCl 50 MG TABLET 100 MG PO ×2 (16:08→21:28)
[2021-02-10 21:28] VITALS: BP 151/70; PULSE 63
[2021-02-10] MEDS: Donepezil HCl 5 MG TABLET PO (21:28)
[2021-02-10 21:29] VITALS: BP 151/70; PULSE 63
[2021-02-11] VITALS: BP 153/64; PULSE 63; RESP 14; TEMP 36.4; O2SAT 97
[2021-02-11] MEDS: Levothyroxine Sodium 75 MCG TABLET PO (06:05)
[2021-02-11 08:00] VITALS: BP 154/72; PULSE 58; RESP 16; TEMP 36.6; O2SAT 96
[2021-02-11] MEDS: Enalapril Maleate 10 MG TABLET 20 MG PO ×2 (08:31→20:20)
[2021-02-11] MEDS: metFORMIN HCl 500 MG TABLET PO ×2 (08:32→16:21)
[2021-02-11] MEDS: Spironolactone 25 MG TABLET PO (08:32)
[2021-02-11] MEDS: NIFEdipine ER 30 MG TAB.ER.24 120 MG PO (08:33)
[2021-02-11] MEDS: hydrALAZINE HCl 50 MG TABLET 100 MG PO ×3 (08:33→20:20)
--- NOTE | 2021-02-11 14:06 | HO.PM.IMPN ---
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, no dizziness CVS no chest pain, no palpitation GI no nausea, no vomiting Physical Exam Vital Signs: Vital Signs: Last Vital Signs Temp 97.8 F 02/11/21 08:00 Pulse 58 02/11/21 08:00 Resp 16 02/11/21 08:00 BP 154/72 H 02/11/21 08:00 Pulse Ox 96 02/11/21 08:00 Body Mass Index 20.1 General: Ax O X 3, no acute distress Neck Supple Resp: CTA bilaterally CVS: Regular rate rhythm GI: Abdomen soft, nontender, bowel sounds audible Skin: No rash Neuro: motor grossly intact Psych: appropriate affect Objective Data Current Medications Generic Name Dose Route Start Last Admin Trade Name Freq PRN Reason Stop Dose Admin Donepezil HCl 5 mg 12/11/20 21:00 02/10/21 21:28 Donepezil Hcl 5 Mg Tablet PO 5 mg BEDTIME RAGHAVENDRA Administration Enalapril Maleate 20 mg 01/24/21 21:00 02/11/21 08:31 Enalapril Maleate 10 Mg Tablet PO 20 mg BID RAGHAVENDRA Administration Hydralazine HCl 100 mg 02/10/21 15:00 02/11/21 08:33 Hydralazine Hcl 50 Mg Tablet PO 100 mg TID RAGHAVENDRA Administration Protocol Levothyroxine Sodium 75 mcg 01/13/21 09:00 02/11/21 06:05 Levothyroxine Sodium 75 Mcg Tablet PO 75 mcg DAILY@0600 RAGHAVENDRA Administration Metformin HCl 500 mg 01/13/21 09:00 02/11/21 08:32 Metformin Hcl 500 Mg Tablet PO 500 mg BIDWM RAGHAVENDRA Administration Nifedipine 120 mg 02/01/21 09:00 02/11/21 08:33 Nifedipine Er 30 Mg Tab.Er.24 PO 120 mg DAILY RAGHAVENDRA Administration Protocol Spironolactone 25 mg 02/09/21 09:00 02/11/21 08:32 Spironolactone 25 Mg Tablet PO 25 mg DAILY RAGHAVENDRA Administration Protocol Labs CBC & Chem 7: 02/05/21 09:11 02/10/21 06:23 Quality Stroke Does the patient have a stroke diagnosis?: No VTE Prior VTE?: No VTE Risk Level:: Medical - moderate - high VTE Device Contraindication: N/A - Device Ordered VTE Drug Contraindication: N/A - Med Ordered Assessment and Plan (1) Dementia, vascular, mixed: Status: Acute (2) HTN (hypertension): Status: Acute (3) Communicating hydrocephalus: Status: Acute (4) Neurocognitive disorder: Status: Acute (5) Bradycardia: Status: Acute Assessment and Plan: 85yo F with HTN, HLD, DM2, hypothyroidism, CAD s/p PCI. initially admitted with falls, elevated troponin; disposition complicated by cognitive impairment requiring guardianship No change in status # HTN BP better controlled this morning will continue on enalapril 20 mg b.i.d., nifedipine 120 mg daily, Aldactone 25 mg , and hydralazine 100 mg t.i.d. for will follow blood pressure closely - consult Nephrology if BP noted to be elevated on current medications. # cognitive impairment - evaluated by psychiatry does need guardianship , process has been slow but ongoing # hx CAD - continue ASA + statin, had bradycardia therefore was not placed on beta-derrek, pulse remains low but stable # DM2 complicated by hypoglycemia - bs stable ,continue metformin # hypothyroidism - continue LT4 # C diff colitis resolved, s/p 14d of vancomycin treatment # acute grief reaction/depression - due to passing of , met with CARE team, Slim # VTE ppx - ambulating well multiple times per day, would consider low risk for VTE, now off LMWH
[2021-02-11 15:21] VITALS: BP 146/70; PULSE 62; RESP 16; TEMP 36.2; O2SAT 97
[2021-02-11 20:20] VITALS: BP 146/70; PULSE 62
[2021-02-11] MEDS: Donepezil HCl 5 MG TABLET PO (20:21)
[2021-02-11 23:52] VITALS: BP 145/88; PULSE 63; RESP 18; TEMP 36.2; O2SAT 97
[2021-02-12 07:23] VITALS: BP 144/67; PULSE 56; RESP 15; TEMP 36.1; O2SAT 97
[2021-02-12 07:41] LABS: Glucose, Whole Blood 114 mg/dL (60-115)
--- NOTE | 2021-02-12 08:40 | MHC.CM.PN ---
pt is now waiting for [facility] application to be completed. ref's to snf's are in and there are facilities following patients. it is hopeful that when pt is accepted on [facility] that she can go to snf. cm to cont. to follow.
[2021-02-12] MEDS: Enalapril Maleate 10 MG TABLET 20 MG PO ×2 (08:58→21:30)
[2021-02-12] MEDS: hydrALAZINE HCl 50 MG TABLET 100 MG PO ×3 (08:58→21:30)
[2021-02-12] MEDS: metFORMIN HCl 500 MG TABLET PO ×2 (08:58→16:37)
[2021-02-12] MEDS: Spironolactone 25 MG TABLET PO (08:59)
[2021-02-12] MEDS: Levothyroxine Sodium 75 MCG TABLET PO (10:33)
[2021-02-12] MEDS: NIFEdipine ER 30 MG TAB.ER.24 120 MG PO (10:33)
[2021-02-12 15:26] VITALS: BP 174/77; PULSE 69; RESP 16; TEMP 36.2; O2SAT 98
--- NOTE | 2021-02-12 15:54 | P.PNIM_ITS ---
Subjective Subjective Date of Service: 02/12/21 Interval History: no acute complaints, praising staff for their help and support. 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 CVS no chest pain, no palpitation GI no nausea, no vomiting Physical Exam 2 Vital Signs: Vital Signs: Last Vital Signs Temp 97.2 F 02/12/21 15:26 Pulse 69 02/12/21 15:26 Resp 16 02/12/21 15:26 BP 174/77 H 02/12/21 15:26 Pulse Ox 98 02/12/21 15:26 Body Mass Index 20.1 General: Ax O X 3, no acute distress Neck Supple Resp: CTA bilaterally CVS: Regular rate rhythm GI: Abdomen soft, nontender, bowel sounds audible Skin: No rash Neuro: motor grossly intact Psych: appropriate affect Objective Data Current Medications Generic Name Dose Route Start Last Admin Trade Name Freq PRN Reason Stop Dose Admin Donepezil HCl 5 mg 12/11/20 21:00 02/11/21 20:21 Donepezil Hcl 5 Mg Tablet PO 5 mg BEDTIME RAGHAVENDRA Administration Enalapril Maleate 20 mg 01/24/21 21:00 02/12/21 08:58 Enalapril Maleate 10 Mg Tablet PO 20 mg BID RAGHAVENDRA Administration Hydralazine HCl 100 mg 02/10/21 15:00 02/12/21 08:58 Hydralazine Hcl 50 Mg Tablet PO 100 mg TID RAGHAVENDRA Administration Protocol Levothyroxine Sodium 75 mcg 01/13/21 09:00 02/12/21 10:33 Levothyroxine Sodium 75 Mcg Tablet PO 75 mcg DAILY@0600 RAGHAVENDRA Administration Metformin HCl 500 mg 01/13/21 09:00 02/12/21 08:58 Metformin Hcl 500 Mg Tablet PO 500 mg BIDWM RAGHAVENDRA Administration Nifedipine 120 mg 02/01/21 09:00 02/12/21 10:33 Nifedipine Er 30 Mg Tab.Er.24 PO 120 mg DAILY RAGHAVENDRA Administration Protocol Spironolactone 25 mg 02/09/21 09:00 02/12/21 08:59 Spironolactone 25 Mg Tablet PO 25 mg DAILY RAGHAVENDRA Administration Protocol Labs CBC & Chem 7: 02/05/21 09:11 02/10/21 06:23 Labs: Laboratory Results - last 24 hr 02/12/21 07:28 POC Glucose 114 Quality Stroke Does the patient have a stroke diagnosis?: No VTE Prior VTE?: No VTE Risk Level:: Medical - moderate - high VTE Device Contraindication: N/A - Device Ordered VTE Drug Contraindication: N/A - Med Ordered Assessment and Plan (1) Dementia, vascular, mixed: Status: Acute (2) HTN (hypertension): Status: Acute (3) Communicating hydrocephalus: Status: Acute (4) Neurocognitive disorder: Status: Acute (5) Bradycardia: Status: Acute Assessment and Plan: 85yo F with HTN, HLD, DM2, hypothyroidism, CAD s/p PCI. initially admitted with falls, elevated troponin; disposition complicated by cognitive impairment requiring guardianship No change in status # HTN BP better controlled this morning will continue on enalapril 20 mg b.i.d., nifedipine 120 mg daily, Aldactone 25 mg , and hydralazine 100 mg t.i.d. Few high readings noted, continue current medication and follow BP closely, BP remains elevated will increase dose of Aldactone to 50mg # cognitive impairment - evaluated by psychiatry does need guardianship , process has been slow but ongoing # hx CAD - continue ASA + statin, had bradycardia therefore was not placed on beta- derrek, pulse remains low but stable # DM2 complicated by hypoglycemia - bs stable ,continue metformin # hypothyroidism - continue LT4 # C diff colitis resolved, s/p 14d of vancomycin treatment # acute grief reaction/depression - due to passing of , met with CARE team, MARTHA # VTE ppx - ambulating well multiple times per day, would consider low risk for VTE, now off LMWH
[2021-02-12 16:13] LABS: Glucose, Whole Blood 161 mg/dL (60-115)
[2021-02-12 19:40] VITALS: BP 143/58; PULSE 75; RESP 18; TEMP 36.1; O2SAT 96
[2021-02-12 21:30] VITALS: BP 143/58; PULSE 75
[2021-02-12] MEDS: Donepezil HCl 5 MG TABLET PO (21:30)
[2021-02-13] VITALS: BP 159/70; PULSE 61; RESP 18; TEMP 36.4; O2SAT 96
[2021-02-13 07:26] VITALS: BP 143/60; PULSE 63; RESP 16; TEMP 36.1; O2SAT 96
[2021-02-13 07:37] LABS: Glucose, Whole Blood 130 mg/dL (60-115)
[2021-02-13] MEDS: Enalapril Maleate 10 MG TABLET 20 MG PO ×2 (08:15→20:30)
[2021-02-13] MEDS: Spironolactone 25 MG TABLET PO (08:15)
[2021-02-13] MEDS: hydrALAZINE HCl 50 MG TABLET 100 MG PO ×3 (08:15→20:30)
[2021-02-13] MEDS: NIFEdipine ER 60 MG TAB.ER.24 120 MG PO (08:15)
[2021-02-13] MEDS: metFORMIN HCl 500 MG TABLET PO ×2 (08:15→16:07)
--- NOTE | 2021-02-13 13:22 | P.PNIM_ITS ---
Subjective Subjective Date of Service: 02/13/21 Interval History: no acute complaints, just give out of shower denies lightheadedness or dizziness. 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, no dizziness CVS no chest pain, no palpitation GI no nausea, no vomiting Physical Exam Vital Signs: Vital Signs: Last Vital Signs Temp 97.0 F 02/13/21 07:26 Pulse 63 02/13/21 07:26 Resp 16 02/13/21 07:26 BP 143/60 H 02/13/21 07:26 Pulse Ox 96 02/13/21 07:26 Body Mass Index 20.1 General: Ax O X 3, no acute distress Neck Supple Resp: CTA bilaterally CVS: Regular rate rhythm GI: Abdomen soft, nontender, bowel sounds audible Skin: No rash Neuro: motor grossly intact Psych: appropriate affect Objective Data Current Medications Generic Name Dose Route Start Last Admin Trade Name Freq PRN Reason Stop Dose Admin Donepezil HCl 5 mg 12/11/20 21:00 02/12/21 21:30 Donepezil Hcl 5 Mg Tablet PO 5 mg BEDTIME RAGHAVENDRA Administration Enalapril Maleate 20 mg 01/24/21 21:00 02/13/21 08:15 Enalapril Maleate 10 Mg Tablet PO 20 mg BID RAGHAVENDRA Administration Hydralazine HCl 100 mg 02/10/21 15:00 02/13/21 08:15 Hydralazine Hcl 50 Mg Tablet PO 100 mg TID RAGHAVENDRA Administration Protocol Levothyroxine Sodium 75 mcg 01/13/21 09:00 02/13/21 07:02 Levothyroxine Sodium 75 Mcg Tablet PO Not Given DAILY@0600 [facility] Metformin HCl 500 mg 01/13/21 09:00 02/13/21 08:15 Metformin Hcl 500 Mg Tablet PO 500 mg BIDWM RAGHAVENDRA Administration Nifedipine 120 mg 02/13/21 09:00 02/13/21 08:15 Nifedipine Er 60 Mg Tab.Er.24 PO 120 mg DAILY RAGHAVENDRA Administration Protocol Spironolactone 25 mg 02/09/21 09:00 02/13/21 08:15 Spironolactone 25 Mg Tablet PO 25 mg DAILY RAGHAVENDRA Administration Protocol Labs CBC & Chem 7: 02/05/21 09:11 02/10/21 06:23 Labs: Laboratory Results - last 24 hr 02/12/21 02/13/21 16:06 07:26 POC Glucose 161 H 130 H Quality Stroke Does the patient have a stroke diagnosis?: No VTE Prior VTE?: No VTE Risk Level:: Medical - moderate - high VTE Device Contraindication: N/A - Device Ordered VTE Drug Contraindication: N/A - Med Ordered Assessment and Plan (1) Dementia, vascular, mixed: Status: Acute (2) HTN (hypertension): Status: Acute (3) Communicating hydrocephalus: Status: Acute (4) Neurocognitive disorder: Status: Acute (5) Bradycardia: Status: Acute Assessment and Plan: 85yo F with HTN, HLD, DM2, hypothyroidism, CAD s/p PCI. initially admitted with falls, elevated troponin; disposition complicated by cognitive impairment requiring guardianship No change in status # HTN BP better controlled will continue on enalapril 20 mg b.i.d., nifedipine 120 mg daily, Aldactone 25 mg , and hydralazine 100 mg t.i.d. Few high readings noted, continue current medication and follow BP clos javid,if BP Persistently elevated will increase dose of Aldactone to 50mg # cognitive impairment - evaluated by psychiatry does need guardianship , process has been slow but ongoing # hx CAD - continue ASA + statin, had bradycardia therefore was not placed on beta- derrek, pulse remains low but stable # DM2 complicated by hypoglycemia - bs stable ,continue metformin # hypothyroidism - continue LT4 # C diff colitis resolved, s/p 14d of vancomycin treatment # acute grief reaction/depression - due to passing of , met with CARE team, MARTHA # VTE ppx - ambulating well multiple times per day, would consider low risk for VTE, now off LMWH
[2021-02-13 15:49] VITALS: BP 144/49; PULSE 64; RESP 14; TEMP 36; O2SAT 95
[2021-02-13] MEDS: Donepezil HCl 5 MG TABLET PO (20:30)
[2021-02-13 23:33] VITALS: BP 153/67; PULSE 67; RESP 16; TEMP 36.4; O2SAT 96
[2021-02-14] MEDS: Levothyroxine Sodium 75 MCG TABLET PO (05:43)
[2021-02-14 07:26] VITALS: BP 151/58; PULSE 56; RESP 15; TEMP 36.2; O2SAT 97
[2021-02-14 07:34] LABS: Glucose, Whole Blood 106 mg/dL (60-115)
[2021-02-14] MEDS: Spironolactone 25 MG TABLET PO (07:58)
[2021-02-14] MEDS: metFORMIN HCl 500 MG TABLET PO ×2 (07:58→16:47)
[2021-02-14] MEDS: Enalapril Maleate 10 MG TABLET 20 MG PO ×2 (07:58→20:35)
[2021-02-14] MEDS: NIFEdipine ER 60 MG TAB.ER.24 120 MG PO (07:58)
[2021-02-14] MEDS: hydrALAZINE HCl 50 MG TABLET 100 MG PO ×3 (07:58→20:35)
--- NOTE | 2021-02-14 14:36 | P.PNIM_ITS ---
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, no dizziness CVS no chest pain, no palpitation GI no nausea, no vomiting, no abdominal pain Physical Exam Vital Signs: Vital Signs: Last Vital Signs Temp 97.1 F 02/14/21 07:26 Pulse 56 02/14/21 07:26 Resp 15 02/14/21 07:26 BP 151/58 H 02/14/21 07:26 Pulse Ox 97 02/14/21 07:26 Body Mass Index 20.1 General: Ax O X 3, no acute distress Neck Supple Resp: CTA bilaterally CVS: Regular rate rhythm GI: Abdomen soft, nontender, bowel sounds audible Skin: No rash Neuro: motor grossly intact Psych: appropriate affect Objective Data Current Medications Generic Name Dose Route Start Last Admin Trade Name Freq PRN Reason Stop Dose Admin Donepezil HCl 5 mg 12/11/20 21:00 02/13/21 20:30 Donepezil Hcl 5 Mg Tablet PO 5 mg BEDTIME RAGHAVENDRA Administration Enalapril Maleate 20 mg 01/24/21 21:00 02/14/21 07:58 Enalapril Maleate 10 Mg Tablet PO 20 mg BID RAGHAVENDRA Administration Hydralazine HCl 100 mg 02/10/21 15:00 02/14/21 07:58 Hydralazine Hcl 50 Mg Tablet PO 100 mg TID RAGHAVENDRA Administration Protocol Levothyroxine Sodium 75 mcg 01/13/21 09:00 02/14/21 05:43 Levothyroxine Sodium 75 Mcg Tablet PO 75 mcg DAILY@0600 RAGHAVENDRA Administration Metformin HCl 500 mg 01/13/21 09:00 02/14/21 07:58 Metformin Hcl 500 Mg Tablet PO 500 mg BIDWM RAGHAVENDRA Administration Nifedipine 120 mg 02/13/21 09:00 02/14/21 07:58 Nifedipine Er 60 Mg Tab.Er.24 PO 120 mg DAILY RAGHAVENDRA Administration Protocol Spironolactone 25 mg 02/09/21 09:00 02/14/21 07:58 Spironolactone 25 Mg Tablet PO 25 mg DAILY RAGHAVENDRA Administration Protocol Labs CBC & Chem 7: 02/05/21 09:11 02/10/21 06:23 Labs: Laboratory Results - last 24 hr 02/14/21 07:27 POC Glucose 106 Quality Stroke Does the patient have a stroke diagnosis?: No VTE Prior VTE?: No VTE Risk Level:: Medical - moderate - high VTE Device Contraindication: N/A - Device Ordered VTE Drug Contraindication: N/A - Med Ordered Assessment and Plan (1) Dementia, vascular, mixed: Status: Acute (2) HTN (hypertension): Status: Acute (3) Communicating hydrocephalus: Status: Acute (4) Neurocognitive disorder: Status: Acute (5) Bradycardia: Status: Acute Assessment and Plan: 85yo F with HTN, HLD, DM2, hypothyroidism, CAD s/p PCI. initially admitted with falls, elevated troponin; disposition complicated by cognitive impairment requiring guardianship No change in status # HTN BP better controlled with addition of Aldactone and resumption of hydration will continue on enalapril 20 mg b.i.d., nifedipine 120 mg daily, Aldactone 25 mg , and hydralazine 100 mg t.i.d. Few intermittent high readings noted, continue current medication and follow BP closely,if BP Persistently elevated will increase dose of Aldactone to 50mg # cognitive impairment - evaluated by psychiatry does need guardianship , process has been slow but ongoing # hx CAD - continue ASA + statin, had bradycardia therefore was not placed on beta- derrek, pulse remains low but stable # DM2 complicated by hypoglycemia - bs stable ,continue metformin # hypothyroidism - continue LT4 # C diff colitis resolved, s/p 14d of vancomycin treatment # acute grief reaction/depression - due to passing of , met with CARE team, MARTHA # VTE ppx - ambulating well multiple times per day, would consider low risk for VTE, now off LMWH
--- NOTE | 2021-02-14 15:01 | MHC.CM.PN ---
CM MET W/PT PER HER REQUEST, PT ASKING CM IF SHE COULD LEAVE, PT REMINDED SHE IS UNABLE TO RETURN HOME D/T THE STATE OF HER HOME AND HER GUARDIAN & CONSERVATOR CRISTINA IS WORKING ON THE HOUSE FOR HER, PT VERY INSISTENT AND ARGUING W/CM ABOUT DOING IT HERSELF WHILE SHE STAYED THERE, PT REMINDED IT WAS UNINHABITABLE AND GIVEN THE NUMBER FOR HER GUARDIAN/CONSERVATOR HOWEVER PT DECLINED TO CALL HER AND REQUESTED TO TALK TO A HIGHER UP, CM CONTACTED GLAZIER STAINED GLASS WHO REPORTED HE WOULD MEET W/PT.
[2021-02-14] MEDS: Donepezil HCl 5 MG TABLET PO (20:35)
[2021-02-14 23:35] VITALS: BP 147/68; PULSE 75; RESP 16; TEMP 36.9; O2SAT 95
[2021-02-15] MEDS: Levothyroxine Sodium 75 MCG TABLET PO (06:00)
[2021-02-15 07:26] VITALS: BP 144/64; PULSE 58; RESP 16; TEMP 36.4; O2SAT 98
[2021-02-15 07:35] LABS: Glucose, Whole Blood 132 mg/dL (60-115)
[2021-02-15] MEDS: Spironolactone 25 MG TABLET PO (07:50)
[2021-02-15] MEDS: NIFEdipine ER 60 MG TAB.ER.24 120 MG PO (07:50)
[2021-02-15] MEDS: hydrALAZINE HCl 50 MG TABLET 100 MG PO ×3 (07:50→20:20)
[2021-02-15] MEDS: metFORMIN HCl 500 MG TABLET PO ×2 (07:50→16:13)
[2021-02-15] MEDS: Enalapril Maleate 10 MG TABLET 20 MG PO ×2 (07:50→20:20)
--- NOTE | 2021-02-15 13:30 | HO.PM.IMPN ---
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, no dizziness CVS no chest pain, no palpitation GI no nausea, no vomiting, no abdominal pain Physical Exam Vital Signs: Vital Signs: Last Vital Signs Temp 97.6 F 02/15/21 07:26 Pulse 58 02/15/21 07:26 Resp 16 02/15/21 07:26 BP 144/64 H 02/15/21 07:26 Pulse Ox 98 02/15/21 07:26 Body Mass Index 20.1 General: Ax O X 3, no acute distress Neck Supple Resp: CTA bilaterally CVS: Regular rate rhythm GI: Abdomen soft, nontender, bowel sounds audible Skin: No rash Neuro: motor grossly intact Psych: appropriate affect Objective Data Current Medications Generic Name Dose Route Start Last Admin Trade Name Freq PRN Reason Stop Dose Admin Donepezil HCl 5 mg 12/11/20 21:00 02/14/21 20:35 Donepezil Hcl 5 Mg Tablet PO 5 mg BEDTIME RAGHAVENDRA Administration Enalapril Maleate 20 mg 01/24/21 21:00 02/15/21 07:50 Enalapril Maleate 10 Mg Tablet PO 20 mg BID RAGHAVENDRA Administration Hydralazine HCl 100 mg 02/10/21 15:00 02/15/21 07:50 Hydralazine Hcl 50 Mg Tablet PO 100 mg TID RAGHAVENDRA Administration Protocol Levothyroxine Sodium 75 mcg 01/13/21 09:00 02/15/21 06:00 Levothyroxine Sodium 75 Mcg Tablet PO 75 mcg DAILY@0600 RAGHAVENDRA Administration Metformin HCl 500 mg 01/13/21 09:00 02/15/21 07:50 Metformin Hcl 500 Mg Tablet PO 500 mg BIDWM RAGHAVENDRA Administration Nifedipine 120 mg 02/13/21 09:00 02/15/21 07:50 Nifedipine Er 60 Mg Tab.Er.24 PO 120 mg DAILY RAGHAVENDRA Administration Protocol Spironolactone 25 mg 02/09/21 09:00 02/15/21 07:50 Spironolactone 25 Mg Tablet PO 25 mg DAILY RAGHAVENDRA Administration Protocol Labs CBC & Chem 7: 02/05/21 09:11 02/10/21 06:23 Labs: Laboratory Results - last 24 hr 02/15/21 07:28 POC Glucose 132 H Quality Stroke Does the patient have a stroke diagnosis?: No VTE Prior VTE?: No VTE Risk Level:: Medical - moderate - high VTE Device Contraindication: N/A - Device Ordered VTE Drug Contraindication: N/A - Med Ordered Assessment and Plan (1) Dementia, vascular, mixed: Status: Acute (2) HTN (hypertension): Status: Acute (3) Communicating hydrocephalus: Status: Acute (4) Neurocognitive disorder: Status: Acute (5) Bradycardia: Status: Acute Assessment and Plan: 85yo F with HTN, HLD, DM2, hypothyroidism, CAD s/p PCI. initially admitted with falls, elevated troponin; disposition complicated by cognitive impairment requiring guardianship No change in status # HTN BP better controlled with addition of Aldactone and resumption of hydration will continue on enalapril 20 mg b.i.d., nifedipine 120 mg daily, Aldactone 25 mg , and hydralazine 100 mg t.i.d. Few intermittent high readings noted, continue current medication and follow BP closely,if BP Persistently elevated will increase dose of Aldactone to 50mg # cognitive impairment - evaluated by psychiatry does need guardianship , process has been slow but ongoing # hx CAD - continue ASA + statin, had bradycardia therefore was not placed on beta-derrek, pulse remains low but stable # DM2 complicated by hypoglycemia - bs stable ,continue metformin # hypothyroidism - continue LT4 # C diff colitis resolved, s/p 14d of vancomycin treatment # acute grief reaction/depression - due to passing of , met with CARE team, MARTHA # VTE ppx - ambulating well multiple times per day, would consider low risk for VTE, now off LMWH
[2021-02-15 15:42] VITALS: BP 150/65; PULSE 79; RESP 20; TEMP 36.5; O2SAT 97
[2021-02-15 20:20] VITALS: BP 200/82; PULSE 79
[2021-02-15] MEDS: Donepezil HCl 5 MG TABLET PO (20:20)
--- NOTE | 2021-02-15 21:45 | MHC.CARE ---
CARE team met with pt due to pt feeling depressed. CARE team provided active listening, support and positive feedback. CARE team available if necessary.
[2021-02-15 23:04] VITALS: BP 157/72; PULSE 73; RESP 18; TEMP 36.4; O2SAT 96
[2021-02-16] MEDS: Levothyroxine Sodium 75 MCG TABLET PO (05:45)
[2021-02-16 07:33] VITALS: BP 158/49; PULSE 61; RESP 17; TEMP 36.1; O2SAT 97
[2021-02-16] MEDS: hydrALAZINE HCl 50 MG TABLET 100 MG PO ×3 (08:37→19:38)
[2021-02-16] MEDS: Spironolactone 25 MG TABLET PO ×2 (08:37→19:37)
[2021-02-16] MEDS: metFORMIN HCl 500 MG TABLET PO ×2 (08:37→16:11)
[2021-02-16] MEDS: Enalapril Maleate 10 MG TABLET 20 MG PO ×2 (08:37→19:37)
[2021-02-16] MEDS: NIFEdipine ER 60 MG TAB.ER.24 120 MG PO (08:37)
--- NOTE | 2021-02-16 11:46 | HO.PM.IMPN ---
Subjective Subjective Date of Service: 02/16/21 Interval History: no acute complaints denies headache, no dizziness, ambulating in hallways, noted to have elevated blood pressure last night, patient remained a symptomatic. 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, no dizziness CVS no chest pain, no palpitation GI no nausea, no vomiting, no abdominal pain Physical Exam Vital Signs: Vital Signs: Last Vital Signs Temp 97.0 F 02/16/21 07:33 Pulse 61 02/16/21 07:33 Resp 17 02/16/21 07:33 BP 158/49 H 02/16/21 07:33 Pulse Ox 97 02/16/21 07:33 Body Mass Index 20.1 General: Ax O X 3, no acute distress Neck Supple Resp: CTA bilaterally CVS: Regular rate rhythm GI: Abdomen soft, nontender, bowel sounds audible Skin: No rash Neuro: motor grossly intact Psych: appropriate affect Objective Data Current Medications Generic Name Dose Route Start Last Admin Trade Name Freq PRN Reason Stop Dose Admin Donepezil HCl 5 mg 12/11/20 21:00 02/15/21 20:20 Donepezil Hcl 5 Mg Tablet PO 5 mg BEDTIME RAGHAVENDRA Administration Enalapril Maleate 20 mg 01/24/21 21:00 02/16/21 08:37 Enalapril Maleate 10 Mg Tablet PO 20 mg BID RAGHAVENDRA Administration Hydralazine HCl 100 mg 02/10/21 15:00 02/16/21 08:37 Hydralazine Hcl 50 Mg Tablet PO 100 mg TID RAGHAVENDRA Administration Protocol Levothyroxine Sodium 75 mcg 01/13/21 09:00 02/16/21 05:45 Levothyroxine Sodium 75 Mcg Tablet PO 75 mcg DAILY@0600 RAGHAVENDRA Administration Metformin HCl 500 mg 01/13/21 09:00 02/16/21 08:37 Metformin Hcl 500 Mg Tablet PO 500 mg BIDWM RAGHAVENDRA Administration Nifedipine 120 mg 02/13/21 09:00 02/16/21 08:37 Nifedipine Er 60 Mg Tab.Er.24 PO 120 mg DAILY RAGHAVENDRA Administration Protocol Spironolactone 25 mg 02/09/21 09:00 02/16/21 08:37 Spironolactone 25 Mg Tablet PO 25 mg DAILY RAGHAVENDRA Administration Protocol Labs CBC & Chem 7: 02/05/21 09:11 02/10/21 06:23 Quality Stroke Does the patient have a stroke diagnosis?: No VTE Prior VTE?: No VTE Risk Level:: Medical - moderate - high VTE Device Contraindication: N/A - Device Ordered VTE Drug Contraindication: N/A - Med Ordered Assessment and Plan (1) Dementia, vascular, mixed: Status: Acute (2) HTN (hypertension): Status: Acute (3) Communicating hydrocephalus: Status: Acute (4) Neurocognitive disorder: Status: Acute (5) Bradycardia: Status: Acute Assessment and Plan: 85yo F with HTN, HLD, DM2, hypothyroidism, CAD s/p PCI. initially admitted with falls, elevated troponin; disposition complicated by cognitive impairment requiring guardianship No change in status # HTN BP improved with addition of Aldactone but remains elevated on enalapril 20 mg b.i.d., nifedipine 120 mg daily, Aldactone 25 mg , and hydralazine 100 mg t.i.d. will change Aldactone to 25 mg b.i.d. and follow BP closely. # cognitive impairment - evaluated by psychiatry does need guardianship , process has been slow but ongoing # hx CAD - continue ASA + statin, had bradycardia therefore was not placed on beta-derrek, pulse remains low but stable # DM2 complicated by hypoglycemia - bs stable ,continue metformin # hypothyroidism - continue LT4 # C diff colitis resolved, s/p 14d of vancomycin treatment # acute grief reaction/depression - due to passing of , met with CARE team, MARTHA # VTE ppx - ambulating well multiple times per day, would consider low risk for VTE, now off LMWH
--- NOTE | 2021-02-16 15:05 | MHC.CM.PN ---
THIS APPLICATION SOFTWARE ENGINEER MET WITH PATIENT AND HER TWO VISITORS WITH PERMISSION FROM PATIENT. PATIENT REMINDED THAT SHE IS NOT ABLE TO RETURN HOME, AND THAT GUARDIAN/CONSERVATOR IS ATTEMPTING TO SECURE THE FUNDS TO PLACE PATIENT IN A FACILITY OR ASSISTED LIVING FACILITY. PATIENT AND FRIENDS ARE ASKING FOR A HOME IN [place], [place], WHERE HER TWO FRIENDS LIVE AND CAN VISIT. THIS APPLICATION SOFTWARE ENGINEER TO ADD TO SNF REFERRAL ATTEMPTS.
[2021-02-16 15:33] VITALS: BP 160/58; PULSE 65; RESP 20; TEMP 36.1; O2SAT 98
[2021-02-16 16:11] VITALS: BP 160/58; PULSE 65
[2021-02-16] MEDS: Donepezil HCl 5 MG TABLET PO (19:37)
[2021-02-16 23:58] VITALS: BP 151/72; PULSE 67; RESP 16; TEMP 37.2; O2SAT 96
[2021-02-17] MEDS: Levothyroxine Sodium 75 MCG TABLET PO (04:42)
[2021-02-17 05:46] LABS: Creatinine Clr Calc Pharmacy 28.8; Estimated Glomerular Filt Rate 43
[2021-02-17 07:05] VITALS: BP 172/72; PULSE 58; RESP 16; TEMP 36.4; O2SAT 97
[2021-02-17 07:13] LABS: Glucose, Whole Blood 119 mg/dL (60-115)
--- NOTE | 2021-02-17 09:00 | P.PNIM_ITS ---
Subjective Subjective Date of Service: 02/17/21 Interval History: Seen in follow for placement issues, emotionally better, BP is a bit high 172/72 Review of Systems no chest pain, no sob, no dizziness, depressed Physical Exam Vital Signs: Vital Signs: Last Vital Signs Temp 97.5 F 02/17/21 07:05 Pulse 58 02/17/21 07:05 Resp 16 02/17/21 07:05 BP 172/72 H 02/17/21 07:05 Pulse Ox 97 02/17/21 07:05 Body Mass Index 20.1 Const: Other: General: AO X 3, no acute distress Resp: CTA bilateral CVS: S1,S2,RRR GI: +BS, NT, no distention Skin: No rash Neuro: motor grossly intact Psych: depressed compare to usual Limitations: no limitations and other limitations (Question if the patient remembers events correctly) Objective Data Current Medications Generic Name Dose Route Start Last Admin Trade Name Freq PRN Reason Stop Dose Admin Donepezil HCl 5 mg 12/11/20 21:00 02/16/21 19:37 Donepezil Hcl 5 Mg Tablet PO 5 mg BEDTIME RAGHAVENDRA Administration Enalapril Maleate 20 mg 01/24/21 21:00 02/16/21 19:37 Enalapril Maleate 10 Mg Tablet PO 20 mg BID RAGHAVENDRA Administration Hydralazine HCl 100 mg 02/10/21 15:00 02/16/21 19:38 Hydralazine Hcl 50 Mg Tablet PO 100 mg TID RAGHAVENDRA Administration Protocol Levothyroxine Sodium 75 mcg 01/13/21 09:00 02/17/21 04:42 Levothyroxine Sodium 75 Mcg Tablet PO 75 mcg DAILY@0600 RAGHAVENDRA Administration Metformin HCl 500 mg 01/13/21 09:00 02/16/21 16:11 Metformin Hcl 500 Mg Tablet PO 500 mg BIDWM RAGHAVENDRA Administration Nifedipine 120 mg 02/13/21 09:00 02/16/21 08:37 Nifedipine Er 60 Mg Tab.Er.24 PO 120 mg DAILY RAGHAVENDRA Administration Protocol Spironolactone 25 mg 02/16/21 21:00 02/16/21 19:37 Spironolactone 25 Mg Tablet PO 25 mg BID RAGHAVENDRA Administration Protocol Labs CBC & Chem 7: 02/05/21 09:11 02/17/21 04:44 Labs: Laboratory Results - last 24 hr 02/17/21 02/17/21 04:44 07:07 Creatinine 1.20 Estim Creat Clear Calc 28.8 Estimated GFR 43 POC Glucose 119 H Quality Stroke Does the patient have a stroke diagnosis?: No VTE Prior VTE?: No VTE Risk Level:: Medical - moderate - high VTE Device Contraindication: N/A - Device Ordered VTE Drug Contraindication: N/A - Med Ordered Assessment and Plan (1) Dementia, vascular, mixed: Status: Acute (2) HTN (hypertension): Status: Acute (3) Communicating hydrocephalus: Status: Acute (4) Neurocognitive disorder: Status: Acute (5) Bradycardia: Status: Acute Assessment and Plan: 85yo F with HTN, HLD, DM2, hypothyroidism, CAD s/p PCI. initially admitted with falls, elevated troponin; disposition complicated by cognitive impairment requiring guardianship No change in status # HTN BP improved with addition of Aldactone but remains elevated on enalapril 20 mg b.i.d., nifedipine 120 mg daily, Aldactone 25 mg , and hydralazine 100 mg t.i.d. Aldactone increased to 25 mg b.i.d. and follow BP closely, If persistently high consider renal doppler to r/o TIMMY and consider Nephrology consultation # cognitive impairment - evaluated by psychiatry does need guardianship , process has been slow but ongoing # hx CAD - continue ASA + statin, had bradycardia therefore was not placed on beta- derrek, pulse remains low but stable # DM2 complicated by hypoglycemia - bs stable ,continue metformin # hypothyroidism - continue LT4 # C diff colitis resolved, s/p 14d of vancomycin treatment # acute grief reaction/depression - due to passing of , met with CARE team, MARTHA # VTE ppx - ambulating well multiple times per day, would consider low risk for VTE, now off LMWH
[2021-02-17] MEDS: hydrALAZINE HCl 50 MG TABLET 100 MG PO ×3 (09:52→19:53)
[2021-02-17] MEDS: NIFEdipine ER 60 MG TAB.ER.24 120 MG PO (09:52)
[2021-02-17] MEDS: Spironolactone 25 MG TABLET PO ×2 (09:52→19:53)
[2021-02-17] MEDS: metFORMIN HCl 500 MG TABLET PO ×2 (09:52→16:38)
[2021-02-17] MEDS: Enalapril Maleate 10 MG TABLET 20 MG PO ×2 (09:52→19:54)
[2021-02-17 15:27] VITALS: BP 168/84; PULSE 73; RESP 18; TEMP 36.4; O2SAT 97
[2021-02-17] MEDS: Donepezil HCl 5 MG TABLET PO (19:53)
[2021-02-17 23:34] VITALS: BP 145/65; PULSE 69; RESP 16; TEMP 36; O2SAT 97
[2021-02-18] MEDS: Levothyroxine Sodium 75 MCG TABLET PO (06:20)
[2021-02-18 07:28] VITALS: BP 165/74; PULSE 58; RESP 17; TEMP 36.6; O2SAT 96
[2021-02-18] MEDS: NIFEdipine ER 60 MG TAB.ER.24 120 MG PO (08:26)
[2021-02-18] MEDS: hydrALAZINE HCl 50 MG TABLET 100 MG PO ×3 (08:26→19:59)
[2021-02-18] MEDS: metFORMIN HCl 500 MG TABLET PO ×2 (08:26→16:32)
[2021-02-18] MEDS: Spironolactone 25 MG TABLET PO ×2 (08:26→20:00)
[2021-02-18] MEDS: Enalapril Maleate 10 MG TABLET 20 MG PO ×2 (08:27→19:59)
--- NOTE | 2021-02-18 09:42 | P.PNIM_ITS ---
Subjective Subjective Date of Service: 02/18/21 Interval History: Seen in follow for placement issues, emotionally better, BP is better 165/74 Review of Systems no chest pain, no sob, no dizziness, depressed Physical Exam Vital Signs: Vital Signs: Last Vital Signs Temp 97.8 F 02/18/21 07:28 Pulse 58 02/18/21 07:28 Resp 17 02/18/21 07:28 BP 165/74 H 02/18/21 07:28 Pulse Ox 96 02/18/21 07:28 Body Mass Index 20.1 Const: Other: General: AO X 3, no acute distress Resp: CTA bilateral CVS: S1,S2,RRR GI: +BS, NT, no distention Skin: No rash Neuro: motor grossly intact Psych: depressed compare to usual Objective Data Current Medications Generic Name Dose Route Start Last Admin Trade Name Freq PRN Reason Stop Dose Admin Donepezil HCl 5 mg 12/11/20 21:00 02/17/21 19:53 Donepezil Hcl 5 Mg Tablet PO 5 mg BEDTIME RAGHAVENDRA Administration Enalapril Maleate 20 mg 01/24/21 21:00 02/18/21 08:27 Enalapril Maleate 10 Mg Tablet PO 20 mg BID RAGHAVENDRA Administration Hydralazine HCl 100 mg 02/10/21 15:00 02/18/21 08:26 Hydralazine Hcl 50 Mg Tablet PO 100 mg TID RAGHAVENDRA Administration Protocol Levothyroxine Sodium 75 mcg 01/13/21 09:00 02/18/21 06:20 Levothyroxine Sodium 75 Mcg Tablet PO 75 mcg DAILY@0600 RAGHAVENDRA Administration Metformin HCl 500 mg 01/13/21 09:00 02/18/21 08:26 Metformin Hcl 500 Mg Tablet PO 500 mg BIDWM RAGHAVENDRA Administration Nifedipine 120 mg 02/13/21 09:00 02/18/21 08:26 Nifedipine Er 60 Mg Tab.Er.24 PO 120 mg DAILY RAGHAVENDRA Administration Protocol Spironolactone 25 mg 02/16/21 21:00 02/18/21 08:26 Spironolactone 25 Mg Tablet PO 25 mg BID RAGHAVENDRA Administration Protocol Labs CBC & Chem 7: 02/05/21 09:11 02/17/21 04:44 Quality Stroke Does the patient have a stroke diagnosis?: No VTE Prior VTE?: No VTE Risk Level:: Medical - moderate - high VTE Device Contraindication: N/A - Device Ordered VTE Drug Contraindication: N/A - Med Ordered Assessment and Plan (1) Dementia, vascular, mixed: Status: Acute (2) HTN (hypertension): Status: Acute (3) Communicating hydrocephalus: Status: Acute (4) Neurocognitive disorder: Status: Acute (5) Bradycardia: Status: Acute Assessment and Plan: 85yo F with HTN, HLD, DM2, hypothyroidism, CAD s/p PCI. initially admitted with falls, elevated troponin; disposition complicated by cognitive impairment requiring guardianship No change in status # HTN BP improved with addition of Aldactone but remains elevated on enalapril 20 mg b.i.d., nifedipine 120 mg daily, Aldactone 25 mg , and hydralazine 100 mg t.i.d. Aldactone increased to 25 mg b.i.d. and follow BP closely, renal doppler to r/o TIMMY and consider Nephrology consultation # cognitive impairment - evaluated by psychiatry does need guardianship , process has been slow but ongoing # hx CAD - continue ASA + statin, had bradycardia therefore was not placed on beta- derrek, pulse remains low but stable # DM2 complicated by hypoglycemia - bs stable ,continue metformin # hypothyroidism - continue LT4 # C diff colitis resolved, s/p 14d of vancomycin treatment # acute grief reaction/depression - due to passing of , met with CARE team, MARTHA #Chronic anemia--H/H has been stable, check occult blood, periodic CBC # VTE ppx - ambulating well multiple times per day, would consider low risk for VTE, now off LMWH
[2021-02-18 16:00] VITALS: BP 152/60; PULSE 75; RESP 15; TEMP 36.1; O2SAT 98
[2021-02-18 19:08] VITALS: BP 155/84; PULSE 73; RESP 18; TEMP 36.1; O2SAT 98
[2021-02-18] MEDS: Donepezil HCl 5 MG TABLET PO (20:00)
[2021-02-19] VITALS (8 sets, daily range): BP systolic 129–177; BP diastolic 59–79; PULSE 63–72; RESP 16–18; TEMP 36.1–37; O2SAT 92–99
[2021-02-19] MEDS: Levothyroxine Sodium 75 MCG TABLET PO (06:20)
[2021-02-19] MEDS: hydrALAZINE HCl 50 MG TABLET 100 MG PO ×3 (09:42→20:05)
[2021-02-19] MEDS: metFORMIN HCl 500 MG TABLET PO ×2 (09:42→16:21)
[2021-02-19] MEDS: Spironolactone 25 MG TABLET PO ×2 (09:42→20:05)
[2021-02-19] MEDS: NIFEdipine ER 60 MG TAB.ER.24 120 MG PO (09:42)
[2021-02-19] MEDS: Enalapril Maleate 10 MG TABLET 20 MG PO ×2 (09:42→20:04)
[2021-02-19 09:46] LABS: OBS Int Ctl Valid YES; OBS1 NEGATIVE (NEGATIVE)
--- NOTE | 2021-02-19 10:36 | P.PNIM_ITS ---
Subjective Subjective Date of Service: 02/19/21 Interval History: Seen in follow for placement issues, emotionally better, no new issues, had renal US this morning Review of Systems no chest pain, no sob, no dizziness, depressed Physical Exam Vital Signs: Vital Signs: Last Vital Signs Temp 97.0 F 02/19/21 07:08 Pulse 63 02/19/21 07:08 Resp 17 02/19/21 07:08 BP 177/79 H 02/19/21 07:08 Pulse Ox 98 02/19/21 07:08 Body Mass Index 20.1 Const: Other: General: AO X 3, no acute distress Resp: CTA bilateral CVS: S1,S2,RRR GI: +BS, NT, no distention Skin: No rash Neuro: motor grossly intact Psych: depressed compare to usual Objective Data Current Medications Generic Name Dose Route Start Last Admin Trade Name Freq PRN Reason Stop Dose Admin Donepezil HCl 5 mg 12/11/20 21:00 02/18/21 20:00 Donepezil Hcl 5 Mg Tablet PO 5 mg BEDTIME RAGHAVENDRA Administration Enalapril Maleate 20 mg 01/24/21 21:00 02/19/21 09:42 Enalapril Maleate 10 Mg Tablet PO 20 mg BID RAGHAVENDRA Administration Hydralazine HCl 100 mg 02/10/21 15:00 02/19/21 09:42 Hydralazine Hcl 50 Mg Tablet PO 100 mg TID RAGHAVENDRA Administration Protocol Levothyroxine Sodium 75 mcg 01/13/21 09:00 02/19/21 06:20 Levothyroxine Sodium 75 Mcg Tablet PO 75 mcg DAILY@0600 RAGHAVENDRA Administration Metformin HCl 500 mg 01/13/21 09:00 02/19/21 09:42 Metformin Hcl 500 Mg Tablet PO 500 mg BIDWM RAGHAVENDRA Administration Nifedipine 120 mg 02/13/21 09:00 02/19/21 09:42 Nifedipine Er 60 Mg Tab.Er.24 PO 120 mg DAILY RAGHAVENDRA Administration Protocol Spironolactone 25 mg 02/16/21 21:00 02/19/21 09:42 Spironolactone 25 Mg Tablet PO 25 mg BID RAGHAVENDRA Administration Protocol Labs CBC & Chem 7: 02/05/21 09:11 02/17/21 04:44 Labs: Laboratory Results - last 24 hr 02/19/21 08:57 Stool Occult Blood NEGATIVE Quality Stroke Does the patient have a stroke diagnosis?: No VTE Prior VTE?: No VTE Risk Level:: Medical - moderate - high VTE Device Contraindication: N/A - Device Ordered VTE Drug Contraindication: N/A - Med Ordered Assessment and Plan (1) Dementia, vascular, mixed: Status: Acute (2) HTN (hypertension): Status: Acute (3) Communicating hydrocephalus: Status: Acute (4) Neurocognitive disorder: Status: Acute (5) Bradycardia: Status: Acute Assessment and Plan: 85yo F with HTN, HLD, DM2, hypothyroidism, CAD s/p PCI. initially admitted with falls, elevated troponin; disposition complicated by cognitive impairment requiring guardianship No change in status # HTN BP improved with addition of Aldactone but remains elevated on enalapril 20 mg b.i.d., nifedipine 120 mg daily, Aldactone 25 mg , and hydralazine 100 mg t.i.d. Aldactone increased to 25 mg b.i.d. and follow BP closely, renal doppler to r/o TIMMY (result pending)and consider Nephrology consultation # cognitive impairment - evaluated by psychiatry does need guardianship , process has been slow but ongoing # hx CAD - continue ASA + statin, had bradycardia therefore was not placed on beta- derrek, pulse remains low but stable # DM2 complicated by hypoglycemia - bs stable ,continue metformin # hypothyroidism - continue LT4 # C diff colitis resolved, s/p 14d of vancomycin treatment # acute grief reaction/depression - due to passing of , met with CARE team, MARTHA #Chronic anemia--H/H has been stable, check occult blood, periodic CBC # VTE ppx - ambulating well multiple times per day, would consider low risk for VTE, now off LMWH
[2021-02-19] MEDS: Donepezil HCl 5 MG TABLET PO (20:05)
[2021-02-20] VITALS (8 sets, daily range): BP systolic 159–178; BP diastolic 69–80; PULSE 61–71; RESP 16–20; TEMP 36.1–36.9; O2SAT 96–98
[2021-02-20] MEDS: Levothyroxine Sodium 75 MCG TABLET PO (06:03)
[2021-02-20 07:27] LABS: Glucose, Whole Blood 126 mg/dL (60-115)
[2021-02-20] MEDS: NIFEdipine ER 60 MG TAB.ER.24 120 MG PO (07:31)
[2021-02-20] MEDS: Enalapril Maleate 10 MG TABLET 20 MG PO ×2 (07:31→21:54)
[2021-02-20] MEDS: hydrALAZINE HCl 50 MG TABLET 100 MG PO ×3 (07:32→21:55)
[2021-02-20] MEDS: metFORMIN HCl 500 MG TABLET PO ×2 (07:32→16:27)
[2021-02-20] MEDS: Spironolactone 25 MG TABLET PO ×2 (07:32→21:55)
--- NOTE | 2021-02-20 08:41 | MHC.CM.PN ---
pt has an appointed guardian/conservator who is currently trying to secure payor source - funding and/or [facility] application for patient to be placed in snf. ref's have been made. cm waiting on guardian/conservation for the financial piece to be completed before patient can be placed. cm to cont. to follow.
--- NOTE | 2021-02-20 09:29 | P.PNIM_ITS ---
Subjective Subjective Date of Service: 02/20/21 Interval History: Seen in follow for placement issues, emotionally better, no new issues, BP still high Review of Systems no chest pain, no sob, no dizziness, depressed Physical Exam Vital Signs: Vital Signs: Last Vital Signs Temp 98.5 F 02/20/21 07:07 Pulse 61 02/20/21 07:32 Resp 16 02/20/21 07:07 BP 178/80 H 02/20/21 07:32 Pulse Ox 96 02/20/21 07:07 Body Mass Index 20.1 Const: Other: General: AO X 3, no acute distress Resp: CTA bilateral CVS: S1,S2,RRR GI: +BS, NT, no distention Skin: No rash Neuro: motor grossly intact Psych: depressed compare to usual Objective Data Current Medications Generic Name Dose Route Start Last Admin Trade Name Freq PRN Reason Stop Dose Admin Donepezil HCl 5 mg 12/11/20 21:00 02/19/21 20:05 Donepezil Hcl 5 Mg Tablet PO 5 mg BEDTIME RAGHAVENDRA Administration Enalapril Maleate 20 mg 01/24/21 21:00 02/20/21 07:31 Enalapril Maleate 10 Mg Tablet PO 20 mg BID RAGHAVENDRA Administration Hydralazine HCl 100 mg 02/10/21 15:00 02/20/21 07:32 Hydralazine Hcl 50 Mg Tablet PO 100 mg TID RAGHAVENDRA Administration Protocol Levothyroxine Sodium 75 mcg 01/13/21 09:00 02/20/21 06:03 Levothyroxine Sodium 75 Mcg Tablet PO 75 mcg DAILY@0600 RAGHAVENDRA Administration Metformin HCl 500 mg 01/13/21 09:00 02/20/21 07:32 Metformin Hcl 500 Mg Tablet PO 500 mg BIDWM RAGHAVENDRA Administration Nifedipine 120 mg 02/13/21 09:00 02/20/21 07:31 Nifedipine Er 60 Mg Tab.Er.24 PO 120 mg DAILY RAGHAVENDRA Administration Protocol Spironolactone 25 mg 02/16/21 21:00 02/20/21 07:32 Spironolactone 25 Mg Tablet PO 25 mg BID RAGHAVENDRA Administration Protocol Labs CBC & Chem 7: 02/05/21 09:11 02/17/21 04:44 Labs: Laboratory Results - last 24 hr 02/19/21 02/20/21 08:57 07:10 POC Glucose 126 H Stool Occult Blood NEGATIVE Quality Stroke Does the patient have a stroke diagnosis?: No VTE Prior VTE?: No VTE Risk Level:: Medical - moderate - high VTE Device Contraindication: N/A - Device Ordered VTE Drug Contraindication: N/A - Med Ordered Assessment and Plan (1) Dementia, vascular, mixed: Status: Acute (2) HTN (hypertension): Status: Acute (3) Communicating hydrocephalus: Status: Acute (4) Neurocognitive disorder: Status: Acute (5) Bradycardia: Status: Acute Assessment and Plan: 85yo F with HTN, HLD, DM2, hypothyroidism, CAD s/p PCI. initially admitted with falls, elevated troponin; disposition complicated by cognitive impairment requiring guardianship No change in status # HTN -BP remains high despite multiple meds now, US no definite TIMMY. Presently Nifedipine 120/d, Aldactone 25 bid, Hydralazine 100 tid, Enalapril 20 bid. Nephrology consult for further guidance # cognitive impairment - evaluated by psychiatry does need guardianship , process has been slow but ongoing # hx CAD - continue ASA + statin, had bradycardia therefore was not placed on beta- derrek, pulse remains low but stable # DM2 complicated by hypoglycemia - bs stable ,continue metformin # hypothyroidism - continue LT4 # C diff colitis resolved, s/p 14d of vancomycin treatment # acute grief reaction/depression - due to passing of , met with CARE team, MARTHA #Chronic anemia--H/H has been stable, check occult blood, periodic CBC # VTE ppx - ambulating well multiple times per day, would consider low risk for VTE, now off LMWH
--- NOTE | 2021-02-20 11:38 | MHC.CLN ---
NUTRITION FOLLOW UP PATIENT CONTINUES WITH DIABETIC, 1800 KCAL DIET. INTAKE AT MEALS USUALLY 75-100%. TONYA=23. BMI=20.1. NO NEW NUTRITION CONCERNS. CONTINUE TO FOLLOW.
--- NOTE | 2021-02-20 16:11 | MHC.CARE ---
CARE team met with pt due to pt feeling depressed. Pt is feeling frustrated around thinking she needs to go a senior living and is confused with how the process all is. CARE team provided active listening, support and positive feedback. CARE team available if necessary.
--- NOTE | 2021-02-20 17:38 | PM.CNNEP ---
History of Present Illness Reason for Consult Consult date: 02/20/21 Reason for consult: Resistant HTN Requesting physician: Adolfo Diaz Chief Complaint Chief complaint: Patient admitted status post fall in a confusional History of Present Illness Narrative: 85-year-old female with a past medical history of hypertension, hyperlipidemia, diabetes, hypothyroidism, CAD status post stent presented to the hospital with a chief complaint of fall. She had been in the hospital for a few days . Her BP has been uncontrolled inspite of increasing medications. She denies chest pain, SOB, headache or visual disturbances Nephrology has been consulted to assist in the management of her sub optimally controlled hypertension. Review of Systems Review of Systems no chest pain, no sob, no dizziness, depressed Yes all other systems are reviewed and are negative Constitutional: Reports as per HPI and Reports no additional constitutional complaints Eyes: Reports no additional eye complaints Reports system reviewed and no additional complaints, except as documented, Reports Normal hearing present and Denies dizziness Cardiovascular: Reports as per HPI, Reports no additional cardiovascular complaints, Denies acrocyanosis, Denies cool extremities, Denies painful fingertips, Denies chest pain, Denies chest pain at rest, Denies diaphoresis, Denies syncope, Denies irregular heart rhythm, Denies claudication, Denies leg edema, Denies lightheadedness, Denies palpitations and Denies dyspnea Respiratory: Reports as per HPI, Reports no additional respiratory complaints and Denies dyspnea Gastrointestinal: Reports no additional gastrointestinal complaints Musculoskeletal: Reports no additional musculoskeletal complaints Skin/Breast: Reports system reviewed and no additional complaints, except as docu and Denies rash Reports system reviewed and no additional complaints, except as documented, Reports as per HPI, Reports Normal hearing present, Reports Abnormal speech present, Denies dizziness, Denies syncope and Reports Sensory deficit (Neuro) Psychiatric: Reports as per HPI and Denies anxiety Endocrine: Reports no additional endocrine complaints and Denies palpitations Hematologic/Lymphatic: Reports no additional hematologic/lymphatic complaints Allergic/Immunologic: Reports no additional allergic/immunologic complaints FORMERLY [facility], 1928–1983 Past Medical History Medical History (Updated 12/14/20 @ 12:14 by Paul Perdomo MD) Atherosclerotic cardiovascular disease Diabetes HTN (hypertension) Non-rheumatic aortic stenosis Social History Social History Household Members: Spouse Housing: Unknown / Unable to assess Unable to assess alcohol history related to: Unknown Alcohol intake: never service: No Current occupational status: retired Meds Allergies Allergy/AdvReac Type Severity Reaction Status Date / Time Penicillins [PCN] Allergy Mild HIVES Verified 09/26/20 20:26 ciprofloxacin [Cipro] Allergy Unknown Itching Verified 09/26/20 20:26 penicillin V Allergy Unknown Unknown Verified 09/26/20 20:26 Sulfa (Sulfonamide Allergy Unknown Unknown Verified 09/26/20 20:26 Antibiotics) Active Medications: Current Medications Generic Name Dose Route Start Last Admin Trade Name Srinivas PRN Reason Stop Dose Admin Donepezil HCl 5 mg 12/11/20 21:00 02/19/21 20:05 Donepezil Hcl 5 Mg Tablet PO 5 mg BEDTIME RAGHAVENDRA Administration Enalapril Maleate 20 mg 01/24/21 21:00 02/20/21 07:31 Enalapril Maleate 10 Mg Tablet PO 20 mg BID RAGHAVENDRA Administration Hydralazine HCl 100 mg 02/10/21 15:00 02/20/21 15:42 Hydralazine Hcl 50 Mg Tablet PO 100 mg TID RAGHAVENDRA Administration Protocol Levothyroxine Sodium 75 mcg 01/13/21 09:00 02/20/21 06:03 Levothyroxine Sodium 75 Mcg Tablet PO 75 mcg DAILY@0600 RAGHAVENDRA Administration Metformin HCl 500 mg 01/13/21 09:00 02/20/21 16:27 Metformin Hcl 500 Mg Tablet PO 500 mg BIDWM RAGHAVENDRA Administration Nifedipine 120 mg 02/13/21 09:00 02/20/21 07:31 Nifedipine Er 60 Mg Tab.Er.24 PO 120 mg DAILY RAGHAVENDRA Administration Protocol Spironolactone 25 mg 02/16/21 21:00 02/20/21 07:32 Spironolactone 25 Mg Tablet PO 25 mg BID RAGHAVENDRA Administration Protocol Home Medications Medication Instructions Recorded Confirmed Last Taken Type amlodipine 10 mg PO DAILY 09/20/20 09/20/20 Unknown History enalapril maleate 20 mg PO BID 09/20/20 09/20/20 Unknown History glimepiride 4 mg PO BID 09/20/20 09/20/20 Unknown History hydralazine 25 mg PO BID 09/20/20 09/20/20 Unknown History hydrochlorothiazide 25 mg PO DAILY 09/20/20 09/20/20 Unknown History levothyroxine 75 mcg PO DAILY 09/20/20 09/20/20 Unknown History metformin 500 mg PO BID 09/20/20 09/20/20 Unknown History metoprolol succinate 50 mg PO DAILY 09/20/20 09/20/20 Unknown History tramadol 50 mg PO TID PRN 09/20/20 09/20/20 Unknown History Physical Exam Vital Signs: Last Vital Signs Temp 97.4 F 02/20/21 15:10 Pulse 70 02/20/21 15:42 Resp 20 02/20/21 15:10 BP 166/77 H 02/20/21 15:42 Pulse Ox 98 02/20/21 15:10 Body Mass Index 20.1 Const Other: General: AO X 3, no acute distress Resp: CTA bilateral CVS: S1,S2,RRR GI: +BS, NT, no distention Skin: No rash Neuro: motor grossly intact Psych: depressed compare to usual General: cooperative, healthy appearing, comfortable, no acute distress, well developed, alert and awake; No acute distress Nutritional Appearance: average body habitus and well nourished Orientation/consciousness: oriented to person, oriented to place and patient oriented x3 Limitations: no limitations and other limitations (Question if the patient remembers events correctly) HENMT Head: Yes normal to inspection, Yes normocephalic and Yes atraumatic Ears: hearing grossly normal bilaterally and external ears normal General nose exam: Normal external nose present Face and sinus: Yes normal facial exam Mouth: Normal oral and palatal mucosa present and oropharynx normal Throat: Yes posterior oropharynx normal Eyes General: appearance normal, both eyes and all related structures Visual Bolivar: normal visual bolivar by confrontation Alignment and Position: alignment normal Periorbital: periorbital findings normal Eyelids: Yes eyelids normal Conjunctivae: conjunctivae normal Sclerae: sclerae normal Corneas: corneas normal Pupils: Equal, round and reactive pupils present and Pupil accommodation reflex normal EOM: EOMs intact bilaterally Direct Ophthalmoscopy: normal light reflex Neck Neck: Yes normal visual inspection, Yes full ROM, Yes no lymphadenopathy, Yes no meningeal signs, Yes trachea midline and Yes supple Thyroid: Thyroid normal Carotids: normal carotid upstroke and bounding pulses Chest Chest palpation & inspection: normal inspection of the chest and normal palpation of entire chest wall Resp Effort & Inspection: normal respiratory effort and able to speak in complete sentences Auscultation: clear to auscultation bilaterally, no crackles, no wheezes and diminished lung sounds Cardio Jugular venous distension: no JVD Palpation: normal PMI Rate: regular rate Rhythm: regular rhythm Heart sounds: S1 normal heart sound present, S2 normal heart sound present, no gallops, Murmur heart sound present systolic early, III/ and at the right sternal border and no rubs Peripheral pulses: Peripheral pulses 2+ throughout GI Inspection: Yes normal to inspection Palpation (GI): Soft to palpation, nontender, no guarding, not rigid and No hepatosplenomegaly present Percussion: Yes normal to percussion Auscultation: normal bowel sounds Rectal Exam - Female: deferred General: Yes no CVA tenderness Back/Spine/Pelvis Back: no CVA tenderness Cervical Spine: normal cervical lordosis and cervical ROM normal Thoracic/Lumbar Spine: thoracic and lumbar spine normal to inspection Skin General skin exam: no rashes or lesions noted Lesions: no lesions Rashes: no rashes Wounds: no wounds Neuro General: oriented to person, oriented to place, patient oriented x3, tone normal, moves all extremities, Normal light touch and pain sensation, no meningeal signs, no focal motor deficits, CN's II-XI intact bilaterally, normal sensation to monofilament and deep tendon reflexes 2+ bilaterally Cranial nerves: Yes CN's II-XII intact bilaterally, Yes Equal, round and reactive pupils present, Yes Bilaterally intact EOM present, Yes Nystagmus not present, Yes Normal facial strength present, Yes Midline tongue present, Yes Normal gag reflex present, Yes Symmetric palate elevation present, Yes Normal hearing present and Yes Ability to bilaterally rotate head present Cognition (Neuro): normal cognition and abnormal cognition Speech: Abnormal speech present and Other speech findings present (Neuro) Motor exam (neuro): 5/5 motor strength present throughout, Pronator motor function not present, no tremor noted, no asterixis, Motor fasciculations not present, Normal motor muscle tone present throughout and Motor abnormalities not present Sensory Exam: Bilaterally intact graphesthesia and Sensory deficit (Neuro) Deep tendon reflexes (DTR's): Right triceps reflex intensity grade: 2+, Left triceps reflex intensity grade: 2+, Rt Biceps (C5, C6): 2+, Left biceps reflex intensity grade: 2+, Right brachioradialis reflex intensity grade: 2+, Left brachioradialis reflex intensity grade: 2+, Right patellar reflex intensity grade: 2+, Left patellar reflex intensity grade: 2+, Right ankle reflex intensity grade: 2+ and Left ankle reflex intensity grade: 2+ Plantar Reflex Responses: downgoing: right, left and bilateral Coordination: [id number] test normal and [id number] test normal Pupils: Normal pupillary reactivity/response: bilateral Extrem General: Yes normal to inspection, Yes full ROM, Yes normal exam except as noted, Yes no clubbing, cyanosis or edema and Yes no pedal edema Psych Appearance: grossly normal and well kempt Mental Status: mental status grossly normal Speech and movement: Normal speech and movement present and Clear speech present Affect: normal affect Attitude: cooperative Thought process: Normal thought process present Thought content: Normal thought content present Insight: Other insight findings present (Psych) (Patient may not be recalling events correctly based discussion with CM [facility]) Results Lab Results Result Diagrams: 02/05/21 09:11 02/17/21 04:44 Assessment and Plan (1) Dementia, vascular, mixed: Status: Acute (2) HTN (hypertension): Status: Acute (3) Communicating hydrocephalus: Status: Acute (4) Neurocognitive disorder: Status: Acute (5) Bradycardia: Status: Acute 85yo F with HTN, HLD, DM2, hypothyroidism, CAD s/p PCI. initially admitted with falls, elevated troponin; disposition complicated by cognitive impairment requiring guardianship No change in status 1. Resistant HTN: despite on 5 BP meds hydaralzine 100 tid vasotec 40 aldacoten 25 bid procardia 120 qd BP remains markedly elevated. Doppler of renals not overwhelming but need to reveiw given ? atrophic/asymmetric kidney and may consider CTA to definitive r/o TIMMY but would HOLD off on that for now 2. CKD 3: Scr 1.2 c/w stage 3 CKD; c/w HTN Nephroscleorsosi REC: add BBlocker labetalol 100 bid and if BP remains elevated then add loop diuretic to regiment Will review doppler with rad and then consider pros/cons of CTA Procedures Date of Service Date of Service: 02/20/21
[2021-02-20] MEDS: Donepezil HCl 5 MG TABLET PO (21:54)
[2021-02-21] VITALS (7 sets, daily range): BP systolic 142–156; BP diastolic 50–67; PULSE 60–72; RESP 17–20; TEMP 36.3–36.9; O2SAT 95–98
[2021-02-21] MEDS: Levothyroxine Sodium 75 MCG TABLET PO (05:49)
[2021-02-21 07:32] LABS: Glucose, Whole Blood 115 mg/dL (60-115)
--- NOTE | 2021-02-21 08:35 | P.PNIM_ITS ---
Subjective Subjective Date of Service: 02/21/21 Interval History: Seen in follow for placement issues, emotionally better, no new issues, BP seem better today 156/67 Review of Systems no chest pain, no sob, no dizziness, depressed Physical Exam Vital Signs: Vital Signs: Last Vital Signs Temp 98.5 F 02/21/21 07:10 Pulse 62 02/21/21 07:10 Resp 17 02/21/21 07:10 BP 156/67 H 02/21/21 07:10 Pulse Ox 95 02/21/21 07:10 Body Mass Index 20.1 Const: Other: General: AO X 3, no acute distress Resp: CTA bilateral CVS: S1,S2,RRR GI: +BS, NT, no distention Skin: No rash Neuro: motor grossly intact Psych: depressed compare to usual Objective Data Current Medications Generic Name Dose Route Start Last Admin Trade Name Freq PRN Reason Stop Dose Admin Donepezil HCl 5 mg 12/11/20 21:00 02/20/21 21:54 Donepezil Hcl 5 Mg Tablet PO 5 mg BEDTIME RAGHAVENDRA Administration Enalapril Maleate 20 mg 01/24/21 21:00 02/20/21 21:54 Enalapril Maleate 10 Mg Tablet PO 20 mg BID RAGHAVENDRA Administration Hydralazine HCl 100 mg 02/10/21 15:00 02/20/21 21:55 Hydralazine Hcl 50 Mg Tablet PO 100 mg TID RAGHAVENDRA Administration Protocol Levothyroxine Sodium 75 mcg 01/13/21 09:00 02/21/21 05:49 Levothyroxine Sodium 75 Mcg Tablet PO 75 mcg DAILY@0600 RAGHAVENDRA Administration Metformin HCl 500 mg 01/13/21 09:00 02/20/21 16:27 Metformin Hcl 500 Mg Tablet PO 500 mg BIDWM RAGHAVENDRA Administration Nifedipine 120 mg 02/13/21 09:00 02/20/21 07:31 Nifedipine Er 60 Mg Tab.Er.24 PO 120 mg DAILY RAGHAVENDRA Administration Protocol Spironolactone 25 mg 02/16/21 21:00 02/20/21 21:55 Spironolactone 25 Mg Tablet PO 25 mg BID RAGHAVENDRA Administration Protocol Labs CBC & Chem 7: 02/05/21 09:11 02/17/21 04:44 Labs: Laboratory Results - last 24 hr 02/21/21 07:28 POC Glucose 115 Quality Stroke Does the patient have a stroke diagnosis?: No VTE Prior VTE?: No VTE Risk Level:: Medical - moderate - high VTE Device Contraindication: N/A - Device Ordered VTE Drug Contraindication: N/A - Med Ordered Assessment and Plan (1) Dementia, vascular, mixed: Status: Acute (2) HTN (hypertension): Status: Acute (3) Communicating hydrocephalus: Status: Acute (4) Neurocognitive disorder: Status: Acute (5) Bradycardia: Status: Acute Assessment and Plan: 85yo F with HTN, HLD, DM2, hypothyroidism, CAD s/p PCI. initially admitted with falls, elevated troponin; disposition complicated by cognitive impairment requiring guardianship No change in status # HTN -BP remains high despite multiple meds now. Presently Nifedipine 120/d, Aldactone 25 bid, Hydralazine 100 tid, Enalapril 20 bid. Nephrology is re commending adding Labetalol 100 bid and if further needed diuretics # cognitive impairment - evaluated by psychiatry does need guardianship , process has been slow but ongoing # hx CAD - continue ASA + statin, had bradycardia therefore was not placed on beta- derrek, pulse remains low but stable # DM2 complicated by hypoglycemia - bs stable ,continue metformin # hypothyroidism - continue LT4 # C diff colitis resolved, s/p 14d of vancomycin treatment # acute grief reaction/depression - due to passing of , met with CARE team, MARTHA #Chronic anemia--H/H has been stable, check occult blood, periodic CBC # VTE ppx - ambulating well multiple times per day, would consider low risk for VTE, now off LMWH
[2021-02-21] MEDS: Spironolactone 25 MG TABLET PO ×2 (08:37→21:05)
[2021-02-21] MEDS: metFORMIN HCl 500 MG TABLET PO ×2 (08:37→17:39)
[2021-02-21] MEDS: Enalapril Maleate 10 MG TABLET 20 MG PO ×2 (08:38→21:06)
[2021-02-21] MEDS: NIFEdipine ER 60 MG TAB.ER.24 120 MG PO (08:38)
[2021-02-21] MEDS: hydrALAZINE HCl 50 MG TABLET 100 MG PO ×3 (08:40→21:06)
[2021-02-21] MEDS: Labetalol HCL 100 MG TABLET PO ×2 (10:43→21:06)
--- NOTE | 2021-02-21 11:12 | MHC.CM.PN ---
SOCIAL SERVICE TECHNICIAN NOTE ELECTRONIC MEDICAL RECORD REVIEWED COURT APPOINTED CONSERVATOR AND GUARDIAN TO BE COMPLETING [employer] APPLICATION FOR PLACEMENT TO SNF REFERRls have been made and are awaiting to hear back from michael rajput in regards to the process and where the application is at , several facilities are willing to follow but need the application to review or have the [employer] number. care technician to continue to follow
[2021-02-21 11:30] LABS: Glucose, Whole Blood 267 mg/dL (60-115)
--- NOTE | 2021-02-21 11:38 | P.PNNP_ITS ---
Subjective Subjective Date of Service: 02/21/21 Interval history: Seen and exmained. events noted Physical Exam Vital Signs: Vital Signs: Last Vital Signs Temp 98.5 F 02/21/21 07:10 Pulse 72 02/21/21 10:43 Resp 17 02/21/21 07:10 BP 156/67 H 02/21/21 07:10 Pulse Ox 95 02/21/21 07:10 Body Mass Index 20.1 Const: Other: General: AO X 3, no acute distress Resp: CTA bilateral CVS: S1,S2,RRR GI: +BS, NT, no distention Skin: No rash Neuro: motor grossly intact Psych: depressed compare to usual General: cooperative, healthy appearing, comfortable, no acute distress, well developed, alert and awake; No acute distress Nutritional Appearance: average body habitus and well nourished Orientation/consciousness: oriented to person, oriented to place and patient oriented x3 Limitations: no limitations and other limitations (Question if the patient remembers events correctly) HENMT: Head: Yes normal to inspection, Yes normocephalic and Yes atraumatic Ears: hearing grossly normal bilaterally and external ears normal General nose exam: Normal external nose present Face and sinus: Yes normal facial exam Mouth: Normal oral and palatal mucosa present and oropharynx normal Throat: Yes posterior oropharynx normal Eyes: General: appearance normal, both eyes and all related structures Visual Adam: normal visual adam by confrontation Alignment and Position: alignment normal Periorbital: periorbital findings normal Eyelids: Yes eyelids normal Conjunctivae: conjunctivae normal Sclerae: sclerae normal Corneas: corneas normal Pupils: Equal, round and reactive pupils present and Pupil accommodation reflex normal EOM: EOMs intact bilaterally Direct Ophthalmoscopy: normal light reflex Neck: Neck: Yes normal visual inspection, Yes full ROM, Yes no lymphadenopathy, Yes no meningeal signs, Yes trachea midline and Yes supple Thyroid: Thyroid normal Carotids: normal carotid upstroke and bounding pulses Chest: Chest palpation & inspection: normal inspection of the chest and normal palpation of entire chest wall Resp: Effort & Inspection: normal respiratory effort and able to speak in c omplete sentences Auscultation: clear to auscultation bilaterally, no aircraft shipping checker ckles, no wheezes and diminished lung sounds Cardio: Jugular venous distension: no JVD Palpation: normal PMI Rate: regular rate Rhythm: regular rhythm Heart sounds: S1 normal heart sound present, S2 normal heart sound present, no gallops, Murmur heart sound present systolic early, III/ and at the right sternal border and no rubs Peripheral pulses: Peripheral pulses 2+ throughout GI: Inspection: Yes normal to inspection Palpation (GI): Soft to palpation, nontender, no guarding, not rigid and No hepatosplenomegaly present Percussion: Yes normal to percussion Auscultation: normal bowel sounds Rectal Exam - Female: deferred : General: Yes no CVA tenderness Back/Spine/Pelvis: Back: no CVA tenderness Cervical Spine: normal cervical lordosis and cervical ROM normal Thoracic/Lumbar Spine: thoracic and lumbar spine normal to inspection Skin: General skin exam: no rashes or lesions noted Lesions: no lesions Rashes: no rashes Wounds: no wounds Neuro: General: oriented to person, oriented to place, patient oriented x3, tone normal, moves all extremities, Normal light touch and pain sensation, no meningeal signs, no focal motor deficits, CN's II-XI intact bilaterally, normal sensation to monofilament and deep tendon reflexes 2+ bilaterally Cranial nerves: Yes CN's II-XII intact bilaterally, Yes Equal, round and reactive pupils present, Yes Bilaterally intact EOM present, Yes Nystagmus not present, Yes Normal facial strength present, Yes Midline tongue present, Yes Normal gag reflex present, Yes Symmetric palate elevation present, Yes Normal hearing present and Yes Ability to bilaterally rotate head present Cognition (Neuro): normal cognition and abnormal cognition Speech: Abnormal speech present and Other speech findings present (Neuro) Motor exam (neuro): 5/5 motor strength present throughout, Pronator motor function not present, no tremor noted, no asterixis, Motor fasciculations not present, Normal motor muscle tone present throughout and Motor abnormalities not present Sensory Exam: Bilaterally intact graphesthesia and Sensory deficit (Neuro) Deep tendon reflexes (DTR's): Right triceps reflex intensity grade: 2+, Left triceps reflex intensity grade: 2+, Rt Biceps (C5, C6): 2+, Left biceps reflex intensity grade: 2+, Right brachioradialis reflex intensity grade: 2+, Left brachioradialis reflex intensity grade: 2+, Right patellar reflex intensity grade: 2+, Left patellar reflex intensity grade: 2+, Right ankle reflex intensity grade: 2+ and Left ankle reflex intensity grade: 2+ Plantar Reflex Responses: downgoing: right, left and bilateral Coordination: [id number] test normal and [id number] test normal Pupils: Normal pupillary reactivity/response: bilateral Extrem: General: Yes normal to inspection, Yes full ROM, Yes normal exam except as noted, Yes no clubbing, cyanosis or edema and Yes no pedal edema Psych: Appearance: grossly normal and well kempt Mental Status: mental status grossly normal Speech and movement: Normal speech and movement present and Clear speech present Affect: normal affect Attitude: cooperative Thought process: Normal thought process present Thought content: Normal thought content present Insight: Other insight findings present (Psych) (Patient may not be recalling events correctly based discussion with CM [facility]) Objective Data Labs CBC & Chem 7: 02/05/21 09:11 02/17/21 04:44 Labs: Laboratory Results - last 24 hr 02/21/21 02/21/21 07:28 11:24 POC Glucose 115 267 H Microbiology Microbiology Results: Microbiology 11/24/20 08:18 Stool Stool Culture - Final 09/21/20 Unknown Urine clean catch - Clean Catch Midstream Urine Culture - Final No growth. Assessment & Plan Assessment and plan (1) Dementia, vascular, mixed: Status: Acute (2) HTN (hypertension): Status: Acute (3) Communicating hydrocephalus: Status: Acute (4) Neurocognitive disorder: Status: Acute (5) Bradycardia: Status: Acute Assessment and Plan: 85yo F with HTN, HLD, DM2, hypothyroidism, CAD s/p PCI. initially admitted with falls, elevated troponin; disposition complicated by cognitive impairment requiring guardianship No change in status 1. Resistant HTN: despite on 4 BP meds and now with addition of labetalol BP doingbetter hydaralzine 100 tid vasotec 40 aldacoten 25 bid procardia 120 qd Doppler of renals not overwhelming but need to reveiw given ? atrophic/asymmetric kidney and may consider CTA to definitive r/o TIMMY but would HOLD off on that for now 2. CKD 3: Scr 1.2 c/w stage 3 CKD; c/w HTN Nephroscleorsosi REC: cont current BP meds and if BP remains elevated then add loop diuretic to regiment Will review doppler with rad and then consider pros/cons of CTA Time Spent With Patient Time: Total time spent is greater than 50% in coordination of care (as documented) at patient's floor/unit and/or counseling patient: Procedures Date of Service Date of Service: 02/21/21 Progress Note: Quality Stroke Does the patient have a stroke diagnosis?: No
[2021-02-21] MEDS: Donepezil HCl 5 MG TABLET PO (21:06)
[2021-02-22] MEDS: Levothyroxine Sodium 75 MCG TABLET PO (06:05)
[2021-02-22 07:02] VITALS: BP 136/46; PULSE 60; RESP 17; TEMP 36.4; O2SAT 97
[2021-02-22 07:23] LABS: Glucose, Whole Blood 166 mg/dL (60-115)
[2021-02-22] MEDS: NIFEdipine ER 60 MG TAB.ER.24 120 MG PO (09:22)
[2021-02-22] MEDS: Spironolactone 25 MG TABLET PO ×2 (09:22→20:15)
[2021-02-22] MEDS: Enalapril Maleate 10 MG TABLET 20 MG PO ×2 (09:23→20:14)
[2021-02-22] MEDS: metFORMIN HCl 500 MG TABLET PO ×2 (09:23→16:16)
[2021-02-22] MEDS: hydrALAZINE HCl 50 MG TABLET 100 MG PO ×3 (09:23→20:14)
[2021-02-22] MEDS: Labetalol HCL 100 MG TABLET PO ×2 (09:23→20:14)
--- NOTE | 2021-02-22 10:45 | P.PNIM_ITS ---
Subjective Subjective Date of Service: 02/22/21 Interval History: Seen in f/u for BP managment and awaiting guardianship. BP is the lowest since admission with present med adjustement 136/46 Review of Systems Gen: no fever Resp: no sob, no cough CV: no chest, no SHELTON, no leg edema GI: No n/v, no abd pain Neuro: No confusion Physical Exam Vital Signs: Vital Signs: Last Vital Signs Temp 97.6 F 02/22/21 07:02 Pulse 60 02/22/21 07:02 Resp 17 02/22/21 07:02 BP 136/46 L 02/22/21 07:02 Pulse Ox 97 02/22/21 07:02 Body Mass Index 20.1 Const: Other: General: AO X 3, no acute distress Resp: CTA bilateral CVS: S1,S2,RRR GI: +BS, NT, no distention Skin: No rash Neuro: motor grossly intact Psych: depressed compare to usual Objective Data Current Medications Generic Name Dose Route Start Last Admin Trade Name Sachaq PRN Reason Stop Dose Admin Donepezil HCl 5 mg 12/11/20 21:00 02/21/21 21:06 Donepezil Hcl 5 Mg Tablet PO 5 mg BEDTIME RAGHAVENDRA Administration Enalapril Maleate 20 mg 01/24/21 21:00 02/22/21 09:23 Enalapril Maleate 10 Mg Tablet PO 20 mg BID RAGHAVENDRA Administration Hydralazine HCl 100 mg 02/10/21 15:00 02/22/21 09:23 Hydralazine Hcl 50 Mg Tablet PO 100 mg TID RAGHAVENDRA Administration Protocol Labetalol HCl 100 mg 02/21/21 09:00 02/22/21 09:23 Labetalol Hcl 100 Mg Tablet PO 100 mg BID RAGHAVENDRA Administration Protocol Levothyroxine Sodium 75 mcg 01/13/21 09:00 02/22/21 06:05 Levothyroxine Sodium 75 Mcg Tablet PO 75 mcg DAILY@0600 RAGHAVENDRA Administration Metformin HCl 500 mg 01/13/21 09:00 02/22/21 09:23 Metformin Hcl 500 Mg Tablet PO 500 mg BIDWM RAGHAVENDRA Administration Nifedipine 120 mg 02/13/21 09:00 02/22/21 09:22 Nifedipine Er 60 Mg Tab.Er.24 PO 120 mg DAILY RAGHAVENDRA Administration Protocol Spironolactone 25 mg 02/16/21 21:00 02/22/21 09:22 Spironolactone 25 Mg Tablet PO 25 mg BID RAGHAVENDRA Administration Protocol Labs CBC & Chem 7: 02/05/21 09:11 02/17/21 04:44 Labs: Laboratory Results - last 24 hr 02/21/21 02/22/21 11:24 07:04 POC Glucose 267 H 166 H Quality Stroke Does the patient have a stroke diagnosis?: No VTE Prior VTE?: No VTE Risk Level:: Medical - moderate - high VTE Device Contraindication: N/A - Device Ordered VTE Drug Contraindication: N/A - Med Ordered Assessment and Plan (1) Dementia, vascular, mixed: Status: Acute (2) HTN (hypertension): Status: Acute (3) Communicating hydrocephalus: Status: Acute (4) Neurocognitive disorder: Status: Acute (5) Bradycardia: Status: Acute Assessment and Plan: 85yo F with HTN, HLD, DM2, hypothyroidism, CAD s/p PCI. initially admitted with falls, elevated troponin; disposition complicated by cognitive impairment requiring guardianship No change in status # Resistant HTN, BP is finally better . Presently Nifedipine 120/d, Aldactone 25 bid, Hydralazine 100 tid, Enalapril 20 bid and Labetalol 100 bid. Nephrology suggest loop diuretics if BP remains high # cognitive impairment - evaluated by psychiatry does need guardianship , process has been slow but ongoing # hx CAD - continue ASA + statin, had bradycardia therefore was not placed on beta- derrek, pulse remains low but stable # DM2 complicated by hypoglycemia - bs stable ,continue metformin # hypothyroidism - continue LT4 # C diff colitis resolved, s/p 14d of vancomycin treatment # acute grief reaction/depression - due to passing of , met with CARE team, lSim #Chronic anemia--H/H has been stable, check occult blood, periodic CBC # VTE ppx - ambulating well multiple times per day, would consider low risk for VTE, now off LMWH
[2021-02-22 15:50] VITALS: BP 146/66; PULSE 56; RESP 15; TEMP 36.1; O2SAT 99
[2021-02-22 16:04] LABS: Glucose, Whole Blood 174 mg/dL (60-115)
--- NOTE | 2021-02-22 18:49 | P.PNNP_ITS ---
Subjective Subjective Date of Service: 02/22/21 Interval history: Seen and examined; events noted Physical Exam Vital Signs: Vital Signs: Last Vital Signs Temp 97 F 02/22/21 15:50 Pulse 56 02/22/21 15:50 Resp 15 02/22/21 15:50 BP 146/66 H 02/22/21 15:50 Pulse Ox 99 02/22/21 15:50 Body Mass Index 20.1 Const: Other: General: AO X 3, no acute distress Resp: CTA bilateral CVS: S1,S2,RRR GI: +BS, NT, no distention Skin: No rash Neuro: motor grossly intact Psych: depressed compare to usual General: cooperative, healthy appearing, comfortable, no acute distress, well developed, alert and awake; No acute distress Nutritional Appearance: average body habitus and well nourished Orientation/consciousness: oriented to person, oriented to place and patient oriented x3 Limitations: no limitations and other limitations (Question if the patient remembers events correctly) HENMT: Head: Yes normal to inspection, Yes normocephalic and Yes atraumatic Ears: hearing grossly normal bilaterally and external ears normal General nose exam: Normal external nose present Face and sinus: Yes normal facial exam Mouth: Normal oral and palatal mucosa present and oropharynx normal Throat: Yes posterior oropharynx normal Eyes: General: appearance normal, both eyes and all related structures Visual Adam: normal visual adam by confrontation Alignment and Position: alignment normal Periorbital: periorbital findings normal Eyelids: Yes eyelids normal Conjunctivae: conjunctivae normal Sclerae: sclerae normal Corneas: corneas normal Pupils: Equal, round and reactive pupils present and Pupil accommodation reflex normal EOM: EOMs intact bilaterally Direct Ophthalmoscopy: normal light reflex Neck: Neck: Yes normal visual inspection, Yes full ROM, Yes no lymphadenopathy, Yes no meningeal signs, Yes trachea midline and Yes supple Thyroid: Thyroid normal Carotids: normal carotid upstroke and bounding pulses Chest: Chest palpation & inspection: normal inspection of the chest and normal palpation of entire chest wall Resp: Effort & Inspection: normal respiratory effort and able to speak in complete sentences Auscultation: clear to auscultation bilaterally, no c rackles, no wheezes and diminished lung sounds Cardio: Jugular venous distension: no JVD Palpation: normal PMI Rate: regular rate Rhythm: regular rhythm Heart sounds: S1 normal heart sound present, S2 normal heart sound present, no gallops, Murmur heart sound present systolic early, III/ and at the right sternal border and no rubs Peripheral pulses: Peripheral pulses 2+ throughout GI: Inspection: Yes normal to inspection Palpation (GI): Soft to palpation, nontender, no guarding, not rigid and No hepatosplenomegaly present Percussion: Yes normal to percussion Auscultation: normal bowel sounds Rectal Exam - Female: deferred : General: Yes no CVA tenderness Back/Spine/Pelvis: Back: no CVA tenderness Cervical Spine: normal cervical lordosis and cervical ROM normal Thoracic/Lumbar Spine: thoracic and lumbar spine normal to inspection Skin: General skin exam: no rashes or lesions noted Lesions: no lesions Rashes: no rashes Wounds: no wounds Neuro: General: oriented to person, oriented to place, patient oriented x3, tone normal, moves all extremities, Normal light touch and pain sensation, no meningeal signs, no focal motor deficits, CN's II-XI intact bilaterally, normal sensation to monofilament and deep tendon reflexes 2+ bilaterally Cranial nerves: Yes CN's II-XII intact bilaterally, Yes Equal, round and reactive pupils present, Yes Bilaterally intact EOM present, Yes Nystagmus not present, Yes Normal facial strength present, Yes Midline tongue present, Yes Normal gag reflex present, Yes Symmetric palate elevation present, Yes Normal hearing present and Yes Ability to bilaterally rotate head present Cognition (Neuro): normal cognition and abnormal cognition Speech: Abnormal speech present and Other speech findings present (Neuro) Motor exam (neuro): 5/5 motor strength present throughout, Pronator motor function not present, no tremor noted, no as terixis, Motor fasciculations not present, Normal motor muscle tone present throughout and Motor abnormalities not present Sensory Exam: Bilaterally intact graphesthesia and Sensory deficit (Neuro) Deep tendon reflexes (DTR's): Right triceps reflex intensity grade: 2+, Left triceps reflex intensity grade: 2+, Rt Biceps (C5, C6): 2+, Left biceps reflex intensity grade: 2+, Right brachioradialis reflex intensity grade: 2+, Left brachioradialis reflex intensity grade: 2+, Right patellar reflex intensity grade: 2+, Left patellar reflex intensity grade: 2+, Right ankle reflex intensity grade: 2+ and Left ankle reflex intensity grade: 2+ Plantar Reflex Responses: downgoing: right, left and bilateral Coordination: [id number] test normal and [id number] test normal Pupils: Normal pupillary reactivity/response: bilateral Extrem: General: Yes normal to inspection, Yes full ROM, Yes normal exam except as noted, Yes no clubbing, cyanosis or edema and Yes no pedal edema Psych: Appearance: grossly normal and well kempt Mental Status: mental status grossly normal Speech and movement: Normal speech and movement present and Clear speech present Affect: normal affect Attitude: cooperative Thought process: Normal thought process present Thought content: Normal thought content present Insight: Other insight findings present (Psych) (Patient may not be recalling events correctly based discussion with [facility]) Objective Data Labs CBC & Chem 7: 02/05/21 09:11 02/17/21 04:44 Labs: Laboratory Results - last 24 hr 02/22/21 02/22/21 07:04 15:59 POC Glucose 166 H 174 H Microbiology Microbiology Results: Microbiology 11/24/20 08:18 Stool Stool Culture - Final 09/21/20 Unknown Urine clean catch - Clean Catch Midstream Urine Culture - Final No growth. Assessment & Plan Assessment and plan (1) Dementia, vascular, mixed: Status: Acute (2) HTN (hypertension): Status: Acute (3) Communicating hydrocephalus: Status: Acute (4) Neurocognitive disorder: Status: Acute (5) Bradycardia: Status: Acute Assessment and Plan: 85yo F with HTN, HLD, DM2, hypothyroidism, CAD s/p PCI. initially admitted with falls, elevated troponin; disposition complicated by cognitive impairment requiring guardianship No change in status 1. Resistant HTN: improved controlled now on current meds w addition of labatalol hydaralzine 100 tid vasotec 40 aldacoten 25 bid procardia 120 qd Doppler of renals not overwhelming but need to reveiw given ? atrophic/asymmetric kidney and may consider CTA to definitive r/o TIMMY but would HOLD off on that for now 2. CKD 3: Scr 1.2 c/w stage 3 CKD; c/w HTN Nephroscleorsosi REC: cont current BP meds and if BP remains elevated then add loop diuretic to regiment Time Spent With Patient Time: Total time spent is greater than 50% in coordination of care (as documented) at patient's floor/unit and/or counseling patient: Procedures Date of Service Date of Service: 02/22/21 Progress Note: Quality Stroke Does the patient have a stroke diagnosis?: No
[2021-02-22] MEDS: Donepezil HCl 5 MG TABLET PO (20:14)
[2021-02-22 23:27] VITALS: BP 137/81; PULSE 66; RESP 16; TEMP 37; O2SAT 97
[2021-02-23] MEDS: Levothyroxine Sodium 75 MCG TABLET PO (06:21)
[2021-02-23 07:31] VITALS: BP 141/46; PULSE 54; RESP 17; TEMP 36.3; O2SAT 98
[2021-02-23 07:39] LABS: Glucose, Whole Blood 185 mg/dL (60-115)
[2021-02-23] MEDS: hydrALAZINE HCl 50 MG TABLET 100 MG PO ×3 (08:19→20:10)
[2021-02-23] MEDS: Enalapril Maleate 10 MG TABLET 20 MG PO ×2 (08:20→20:11)
[2021-02-23] MEDS: Spironolactone 25 MG TABLET PO ×2 (08:20→20:10)
[2021-02-23] MEDS: NIFEdipine ER 60 MG TAB.ER.24 120 MG PO (08:21)
[2021-02-23] MEDS: Labetalol HCL 100 MG TABLET PO ×2 (08:21→20:10)
[2021-02-23 08:47] LABS: Creatinine Clr Calc Pharmacy 24.1; Estimated Glomerular Filt Rate 35
[2021-02-23] MEDS: metFORMIN HCl 500 MG TABLET PO ×2 (08:50→16:15)
--- NOTE | 2021-02-23 09:44 | HO.PM.IMPN ---
Subjective Subjective Date of Service: 02/23/21 Interval History: no acute complaints, happy with her care in the hospital.. 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, no dizziness GI no nausea, no abdominal pain no diarrhea respiratory no cough, no shortness of breath Physical Exam Vital Signs: Vital Signs: Last Vital Signs Temp 97.3 F 02/23/21 07:31 Pulse 54 02/23/21 07:31 Resp 17 02/23/21 07:31 BP 141/46 H 02/23/21 07:31 Pulse Ox 98 02/23/21 07:31 Body Mass Index 20.1 General:no acute distress Neck Supple Resp: CTA bilaterally CVS: Regular rate rhythm GI: Abdomen soft, nontender, bowel sounds audible Skin: No rash Neuro: nonfocal Psych: appropriate affect Objective Data Current Medications Generic Name Dose Route Start Last Admin Trade Name Freq PRN Reason Stop Dose Admin Donepezil HCl 5 mg 12/11/20 21:00 02/22/21 20:14 Donepezil Hcl 5 Mg Tablet PO 5 mg BEDTIME RAGHAVENDRA Administration Enalapril Maleate 20 mg 01/24/21 21:00 02/23/21 08:20 Enalapril Maleate 10 Mg Tablet PO 20 mg BID RAGHAVENDRA Administration Hydralazine HCl 100 mg 02/10/21 15:00 02/23/21 08:19 Hydralazine Hcl 50 Mg Tablet PO 100 mg TID RAGHAVENDRA Administration Protocol Labetalol HCl 100 mg 02/21/21 09:00 02/23/21 08:21 Labetalol Hcl 100 Mg Tablet PO 100 mg BID RAGHAVENDRA Administration Protocol Levothyroxine Sodium 75 mcg 01/13/21 09:00 02/23/21 06:21 Levothyroxine Sodium 75 Mcg Tablet PO 75 mcg DAILY@0600 RAGHAVENDRA Administration Metformin HCl 500 mg 01/13/21 09:00 02/23/21 08:50 Metformin Hcl 500 Mg Tablet PO 500 mg BIDWM RAGHAVENDRA Administration Nifedipine 120 mg 02/13/21 09:00 02/23/21 08:21 Nifedipine Er 60 Mg Tab.Er.24 PO 120 mg DAILY RAGHAVENDRA Administration Protocol Spironolactone 25 mg 02/16/21 21:00 02/23/21 08:20 Spironolactone 25 Mg Tablet PO 25 mg BID RAGHAVENDRA Administration Protocol Labs CBC & Chem 7: 02/05/21 09:11 02/23/21 07:54 Labs: Laboratory Results - last 24 hr 02/22/21 02/23/21 02/23/21 15:59 07:33 07:54 Creatinine 1.44 H Estim Creat Clear Calc 24.1 Estimated GFR 35 POC Glucose 174 H 185 H Quality Stroke Does the patient have a stroke diagnosis?: No VTE Prior VTE?: No VTE Risk Level:: Medical - moderate - high VTE Device Contraindication: N/A - Device Ordered VTE Drug Contraindication: N/A - Med Ordered Assessment and Plan (1) HTN (hypertension): Status: Acute (2) Dementia, vascular, mixed: Status: Acute (3) Communicating hydrocephalus: Status: Acute (4) Neurocognitive disorder: Status: Acute (5) Bradycardia: Status: Acute (6) Non-rheumatic aortic stenosis: Status: Acute Assessment and Plan: 85yo F with HTN, HLD, DM2, hypothyroidism, CAD s/p PCI. initially admitted with falls, elevated troponin; disposition complicated by cognitive impairment requiring guardianship No change in status # Resistant HTN, BP is better controlled with addition of labetalol with continue Nifedipine 120/d, Aldactone 25 bid, Hydralazine 100 tid, Enalapril 20 bid and Labetalol 100 bid. Nephrology suggest loop diuretics if BP remains high, Dopplers renal showed medical renal disease, CTA recommended to definitely rule out renal artery stenosis, patient being followed by Nephrology hold off on further studies at present. # Chronic kidney disease stage 3 stable # cognitive impairment - evaluated by psychiatry does need guardianship awaiting paperwork # hx CAD - continue ASA + statin, had bradycardia therefore was not placed on beta-derrek, pulse remains low but stable # DM2 complicated by hypoglycemia - bs stable ,continue metformin # hypothyroidism - continue LT4 # C diff colitis resolved, s/p 14d of vancomycin treatment # acute grief reaction/depression - due to passing of , met with CARE team, Slim #Chronic anemia--H/H has been stable, check occult blood, periodic CBC # VTE ppx - ambulating well multiple times per day, would consider low risk for VTE, now off LMWH
[2021-02-23 15:31] VITALS: BP 126/61; PULSE 56; RESP 17; TEMP 36.5; O2SAT 99
[2021-02-23 19:25] VITALS: BP 144/59; PULSE 64; RESP 20; TEMP 36.3; O2SAT 97
[2021-02-23 20:10] VITALS: BP 144/59; PULSE 64
[2021-02-23 20:11] VITALS: BP 144/59; PULSE 64
[2021-02-23] MEDS: Donepezil HCl 5 MG TABLET PO (20:11)
[2021-02-24] MEDS: Levothyroxine Sodium 75 MCG TABLET PO (05:07)
[2021-02-24 07:43] VITALS: BP 176/73; PULSE 61; RESP 18; TEMP 36.1; O2SAT 96
[2021-02-24] MEDS: Enalapril Maleate 10 MG TABLET 20 MG PO ×2 (08:07→20:18)
[2021-02-24] MEDS: NIFEdipine ER 60 MG TAB.ER.24 120 MG PO (08:07)
[2021-02-24] MEDS: hydrALAZINE HCl 50 MG TABLET 100 MG PO ×3 (08:07→20:18)
[2021-02-24] MEDS: Labetalol HCL 100 MG TABLET PO ×2 (08:07→20:18)
[2021-02-24] MEDS: Spironolactone 25 MG TABLET PO (08:07)
--- NOTE | 2021-02-24 12:34 | HO.PM.IMPN ---
Subjective Subjective Date of Service: 02/24/21 Interval History: No acute complaints this morning, no acute issues over night. 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 Physical Exam Vital Signs: Vital Signs: Last Vital Signs Temp 96.9 F 02/24/21 07:43 Pulse 61 02/24/21 07:43 Resp 18 02/24/21 07:43 BP 176/73 H 02/24/21 07:43 Pulse Ox 96 02/24/21 07:43 Body Mass Index 20.1 General:no acute distress Neck: Supple Resp: CTA bilaterally CVS: Regular rate rhythm GI: Abdomen soft, nontender, bowel sounds audible Skin: No rash Neuro: nonfocal Psych: appropriate affect Objective Data Current Medications Generic Name Dose Route Start Last Admin Trade Name Freq PRN Reason Stop Dose Admin Donepezil HCl 5 mg 12/11/20 21:00 02/23/21 20:11 Donepezil Hcl 5 Mg Tablet PO 5 mg BEDTIME RAGHAVENDRA Administration Enalapril Maleate 20 mg 01/24/21 21:00 02/24/21 08:07 Enalapril Maleate 10 Mg Tablet PO 20 mg BID RAGHAVENDRA Administration Hydralazine HCl 100 mg 02/10/21 15:00 02/24/21 08:07 Hydralazine Hcl 50 Mg Tablet PO 100 mg TID RAGHAVENDRA Administration Protocol Labetalol HCl 100 mg 02/21/21 09:00 02/24/21 08:07 Labetalol Hcl 100 Mg Tablet PO 100 mg BID RAGHAVENDRA Administration Protocol Levothyroxine Sodium 75 mcg 01/13/21 09:00 02/24/21 05:07 Levothyroxine Sodium 75 Mcg Tablet PO 75 mcg DAILY@0600 RAGHAVENDRA Administration Metformin HCl 500 mg 02/25/21 08:00 Metformin Hcl 500 Mg Tablet PO DAILY@0800 RAGHAVENDRA Nifedipine 120 mg 02/13/21 09:00 02/24/21 08:07 Nifedipine Er 60 Mg Tab.Er.24 PO 120 mg DAILY RAGHAVENDRA Administration Protocol Spironolactone 25 mg 02/16/21 21:00 02/24/21 08:07 Spironolactone 25 Mg Tablet PO 25 mg BID RAGHAVENDRA Administration Protocol Labs CBC & Chem 7: 02/05/21 09:11 02/23/21 07:54 Quality Stroke Does the patient have a stroke diagnosis?: No VTE Prior VTE?: No VTE Risk Level:: Medical - moderate - high VTE Device Contraindication: N/A - Device Ordered VTE Drug Contraindication: N/A - Med Ordered Assessment and Plan (1) HTN (hypertension): Status: Acute (2) Dementia, vascular, mixed: Status: Acute (3) Communicating hydrocephalus: Status: Acute (4) Neurocognitive disorder: Status: Acute (5) Bradycardia: Status: Acute Assessment and Plan: 85yo F with HTN, HLD, DM2, hypothyroidism, CAD s/p PCI. initially admitted with falls, elevated troponin; disposition complicated by cognitive impairment requiring guardianship No change in status # Resistant HTN, BP is better controlled with addition of labetalol , noted to have elevated creatinine this a.m. Will reduce dose of Aldactone to 25 mg daily, continue Nifedipine 120/d, Hydralazine 100 tid, Enalapril 20 bid and Labetalol 100 bid. Dopplers renal showed medical renal disease, CTA recommended to definitely rule out renal artery stenosis, patient being followed by Nephrology hold off on further studies at present. Follow blood pressure closely. # Chronic kidney disease stage 3 noted to have worsening creatinine and significant drop in GFR now 35, will DC metformin, reduce dose of Aldactone, follow BMP and discuss further treatment plan with Nephrology. # cognitive impairment - evaluated by psychiatry does need guardianship awaiting paperwork # hx CAD - continue ASA + statin, had bradycardia therefore was not placed on beta-derrek, pulse remains low but stable # DM2 complicated by hypoglycemia - couple high blood sugar readings in last few days, hemoglobin A1c 6.2 in ,dc metformin due to worsening renal function, add glipizide recommend strict diabetic diet # hypothyroidism - continue LT4 # C diff colitis resolved, s/p 14d of vancomycin treatment # acute grief reaction/depression - due to passing of , seems stable #Chronic anemia--H/H has been stable, check occult blood, periodic CBC # VTE ppx - ambulating well multiple times per day, would consider low risk for VTE, now off LMWH
--- NOTE | 2021-02-24 12:59 | P.PNNP_ITS ---
Subjective Subjective Date of Service: 02/24/21 Interval history: BP 170s Pulse 60s no edema no dyspnea no complaints Cr 1.44 from yesterday. Physical Exam Vital Signs: Vital Signs: Last Vital Signs Temp 96.9 F 02/24/21 07:43 Pulse 61 02/24/21 07:43 Resp 18 02/24/21 07:43 BP 176/73 H 02/24/21 07:43 Pulse Ox 96 02/24/21 07:43 Body Mass Index 20.1 Const: Other: General: AO X 3, no acute distress Resp: CTA bilateral CVS: S1,S2,RRR GI: +BS, NT, no distention Skin: No rash Neuro: motor grossly intact Psych: depressed compare to usual General: cooperative, healthy appearing, comfortable, no acute distress, well developed, alert and awake; No acute distress Nutritional Appearance: average body habitus and well nourished Orientation/consciousness: oriented to person, oriented to place and patient oriented x3 Limitations: no limitations and other limitations (Question if the patient remembers events correctly) HENMT: Head: Yes normal to inspection, Yes normocephalic and Yes atraumatic Ears: hearing grossly normal bilaterally and external ears normal General nose exam: Normal external nose present Face and sinus: Yes normal facial exam Mouth: Normal oral and palatal mucosa present and oropharynx normal Throat: Yes posterior oropharynx normal Eyes: General: appearance normal, both eyes and all related structures Visual Adam: normal visual adam by confrontation Alignment and Position: alignment normal Periorbital: periorbital findings normal Eyelids: Yes eyelids normal Conjunctivae: conjunctivae normal Sclerae: sclerae normal Corneas: corneas normal Pupils: Equal, round and reactive pupils present and Pupil accommodation reflex normal EOM: EOMs intact bilaterally Direct Ophthalmoscopy: normal light reflex Chest: Chest palpation & inspection: normal inspection of the chest and normal palpation of entire chest wall Resp: Effort & Inspection: normal respiratory effort and able to speak in complete sentences Auscultation: clear to auscultation bilaterally, no crackles, no wheezes and diminished lung sounds Cardio: Jugular venous distension: no JVD Palpation: normal PMI Rate: r egular rate Rhythm: regular rhythm Heart sounds: S1 normal heart sound present, S2 normal heart sound present, no gallops, Murmur heart sound present systolic early, III/ and at the right sternal border and no rubs Peripheral pulses: Peripheral pulses 2+ throughout GI: Inspection: Yes normal to inspection Palpation (GI): Soft to palpation, nontender, no guarding, not rigid and No hepatosplenomegaly present Percussion: Yes normal to percussion Auscultation: normal bowel sounds Rectal Exam - Female: deferred Neuro: General: oriented to person, oriented to place and patient oriented x3 Cranial nerves: Yes Equal, round and reactive pupils present Extrem: General: Yes normal to inspection, Yes full ROM, Yes normal exam except as noted, Yes no clubbing, cyanosis or edema and Yes no pedal edema Objective Data Labs CBC & Chem 7: 02/05/21 09:11 02/23/21 07:54 Microbiology Microbiology Results: Microbiology 11/24/20 08:18 Stool Stool Culture - Final 09/21/20 Unknown Urine clean catch - Clean Catch Midstream Urine Culture - Final No growth. Assessment & Plan Assessment and plan (1) Dementia, vascular, mixed: Status: Acute (2) HTN (hypertension): Status: Acute (3) Communicating hydrocephalus: Status: Acute (4) Neurocognitive disorder: Status: Acute (5) Bradycardia: Status: Acute Assessment and Plan: 85yo F with HTN, HLD, DM2, hypothyroidism, CAD s/p PCI. initially admitted with falls, elevated troponin; disposition complicated by cognitive impairment requiring guardianship No change in status 1. Resistant HTN: Better control, but not at goal yet. ? Cr rise Cr 1.44mg/dL yesterday BL Cr 1.2 Plan: - c/w hydaralzine 100 tid - add IMdur 30 - c/w Labetalol 100mg BID( she had bradycardia with higher doses) - check renal panel and if Cr rising again, will stop SPironolactone and Enalapril and escalate imdur for now - no CTA Renal A. until Cr stable. - hold metformin Time Spent With Patient Time: Total time spent is greater than 50% in coordination of care (as documented) at patient's floor/unit and/or counseling patient: Procedures Date of Service Date of Service: 02/24/21 Progress Note: Quality Stroke Does the patient have a stroke diagnosis?: No
[2021-02-24 15:30] VITALS: BP 130/81; PULSE 66; RESP 20; TEMP 36.4; O2SAT 96
[2021-02-24] MEDS: glipiZIDE 5 MG TABLET 2.5 MG PO (17:05)
[2021-02-24 20:18] VITALS: BP 130/81; PULSE 66
[2021-02-24] MEDS: Donepezil HCl 5 MG TABLET PO (20:18)
[2021-02-25] VITALS: BP 134/63; PULSE 59; RESP 16; TEMP 36.6; O2SAT 95
[2021-02-25] MEDS: Levothyroxine Sodium 75 MCG TABLET PO (06:04)
[2021-02-25 07:26] LABS: Anion Gap 14 (12-20); Blood Urea Nitrogen 41 mg/dL (9-16); Calcium 9.2 mg/dL (8.4-10.2); Carbon Dioxide 25 mmol/L (22-29); Chloride 109 mmol/L (96-108); Creatinine Clr Calc Pharmacy 27.7; Estimated Glomerular Filt Rate 41; Glucose Random 139 mg/dL (60-115); Potassium 4.9 mmol/L (3.3-5.1); Sodium 143 mmol/L (135-145)
[2021-02-25 08:00] VITALS: BP 188/80; PULSE 59; RESP 18; TEMP 36.3; O2SAT 95
[2021-02-25] MEDS: glipiZIDE 5 MG TABLET 2.5 MG PO ×2 (08:20→16:01)
[2021-02-25] MEDS: Spironolactone 25 MG TABLET PO (08:21)
[2021-02-25] MEDS: Labetalol HCL 100 MG TABLET PO ×2 (08:21→20:29)
[2021-02-25] MEDS: Enalapril Maleate 10 MG TABLET 20 MG PO ×2 (08:21→20:28)
[2021-02-25] MEDS: NIFEdipine ER 60 MG TAB.ER.24 120 MG PO (08:22)
[2021-02-25] MEDS: hydrALAZINE HCl 50 MG TABLET 100 MG PO ×3 (08:22→20:28)
--- NOTE | 2021-02-25 12:46 | PM.PNNEP ---
Subjective Subjective Date of Service: 02/25/21 Interval history: BP 170s Pulse 60s no edema no dyspnea no complaints Cr 1.44 from yesterday. Physical Exam Vital Signs: Vital Signs: Last Vital Signs Temp 97.3 F 02/25/21 08:00 Pulse 59 02/25/21 08:00 Resp 18 02/25/21 08:00 BP 188/80 H 02/25/21 08:00 Pulse Ox 95 02/25/21 08:00 Body Mass Index 20.1 Const: Other: General: AO X 3, no acute distress Resp: CTA bilateral CVS: S1,S2,RRR GI: +BS, NT, no distention Skin: No rash Neuro: motor grossly intact Psych: depressed compare to usual General: cooperative, healthy appearing, comfortable, no acute distress, well developed, alert and awake; No acute distress Nutritional Appearance: average body habitus and well nourished Orientation/consciousness: oriented to person, oriented to place and patient oriented x3 Limitations: no limitations and other limitations (Question if the patient remembers events correctly) HENMT: Head: Yes normal to inspection, Yes normocephalic and Yes atraumatic Ears: hearing grossly normal bilaterally and external ears normal General nose exam: Normal external nose present Face and sinus: Yes normal facial exam Mouth: Normal oral and palatal mucosa present and oropharynx normal Throat: Yes posterior oropharynx normal Eyes: General: appearance normal, both eyes and all related structures Visual Adam: normal visual adam by confrontation Alignment and Position: alignment normal Periorbital: periorbital findings normal Eyelids: Yes eyelids normal Conjunctivae: conjunctivae normal Sclerae: sclerae normal Corneas: corneas normal Pupils: Equal, round and reactive pupils present and Pupil accommodation reflex normal EOM: EOMs intact bilaterally Direct Ophthalmoscopy: normal light reflex Neck: Neck: Yes normal visual inspection, Yes full ROM, Yes no lymphadenopathy, Yes no meningeal signs, Yes trachea midline and Yes supple Thyroid: Thyroid normal Carotids: normal carotid upstroke and bounding pulses Chest: Chest palpation & inspection: normal inspection of the chest and normal palpation of entire chest wall Resp: Effort & Inspection: normal respiratory effort and able to speak in complete sentences Auscultation: clear to auscultation bilaterally, no crackles, no wheezes and diminished lung sounds Cardio: Jugular venous distension: no JVD Palpation: normal PMI Rate: regular rate Rhythm: regular rhythm Heart sounds: S1 normal heart sound present, S2 normal heart sound present, no gallops, Murmur heart sound present systolic early, III/ and at the right sternal border and no rubs Peripheral pulses: Peripheral pulses 2+ throughout GI: Inspection: Yes normal to inspection Palpation (GI): Soft to palpation, nontender, no guarding, not rigid and No hepatosplenomegaly present Percussion: Yes normal to percussion Auscultation: normal bowel sounds Rectal Exam - Female: deferred : General: Yes no CVA tenderness Back/Spine/Pelvis: Back: no CVA tenderness Cervical Spine: normal cervical lordosis and cervical ROM normal Thoracic/Lumbar Spine: thoracic and lumbar spine normal to inspection Skin: General skin exam: no rashes or lesions noted Lesions: no lesions Rashes: no rashes Wounds: no wounds Neuro: General: oriented to person, oriented to place, patient oriented x3, tone normal, moves all extremities, Normal light touch and pain sensation, no meningeal signs, no focal motor deficits, CN's II-XI intact bilaterally, normal sensation to monofilament and deep tendon reflexes 2+ bilaterally Cranial nerves: Yes CN's II-XII intact bilaterally, Yes Equal, round and reactive pupils present, Yes Bilaterally intact EOM present, Yes Nystagmus not present, Yes Normal facial strength present, Yes Midline tongue present, Yes Normal gag reflex present, Yes Symmetric palate elevation present, Yes Normal hearing present and Yes Ability to bilaterally rotate head present Cognition (Neuro): normal cognition and abnormal cognition Speech: Abnormal speech present and Other speech findings present (Neuro) Motor exam (neuro): 5/5 motor strength present throughout, Pronator motor function not present, no tremor noted, no asterixis, Motor fasciculations not present, Normal motor muscle tone present throughout and Motor abnormalities not present Sensory Exam: Bilaterally intact graphesthesia and Sensory deficit (Neuro) Deep tendon reflexes (DTR's): Right triceps reflex intensity grade: 2+, Left triceps reflex intensity grade: 2+, Rt Biceps (C5, C6): 2+, Left biceps reflex intensity grade: 2+, Right brachioradialis reflex intensity grade: 2+, Left brachioradialis reflex intensity grade: 2+, Right patellar reflex intensity grade: 2+, Left patellar reflex intensity grade: 2+, Right ankle reflex intensity grade: 2+ and Left ankle reflex intensity grade: 2+ Plantar Reflex Responses: downgoing: right, left and bilateral Coordination: [id number] test normal and [id number] test normal Pupils: Normal pupillary reactivity/response: bilateral Extrem: General: Yes normal to inspection, Yes full ROM, Yes normal exam except as noted, Yes no clubbing, cyanosis or edema and Yes no pedal edema Psych: Appearance: grossly normal and well kempt Mental Status: mental status grossly normal Speech and movement: Normal speech and movement present and Clear speech present Affect: normal affect Attitude: cooperative Thought process: Normal thought process present Thought content: Normal thought content present Insight: Other insight findings present (Psych) (Patient may not be recalling events correctly based discussion with [facility]) Objective Data Labs CBC & Chem 7: 02/05/21 09:11 02/25/21 06:23 Labs: Laboratory Results - last 24 hr 02/25/21 06:23 Sodium 143 Potassium 4.9 Chloride 109 H Carbon Dioxide 25 Anion Gap 14 BUN 41 H Creatinine 1.25 Estim Creat Clear Calc 27.7 Estimated GFR 41 Random Glucose 139 H Calcium 9.2 Microbiology Microbiology Results: Microbiology 11/24/20 08:18 Stool Stool Culture - Final 09/21/20 Unknown Urine clean catch - Clean Catch Midstream Urine Culture - Final No growth. Assessment & Plan Assessment and plan (1) Dementia, vascular, mixed: Status: Acute (2) HTN (hypertension): Status: Acute (3) Communicating hydrocephalus: Status: Acute (4) Neurocognitive disorder: Status: Acute (5) Bradycardia: Status: Acute Assessment and Plan: 85yo F with HTN, HLD, DM2, hypothyroidism, CAD s/p PCI. initially admitted with falls, elevated troponin; disposition complicated by cognitive impairment requiring guardianship No change in status 1. Resistant HTN: Better control, but not at goal yet. ? Cr rise Cr 1.44mg/dL yesterday BL Cr 1.2 Plan: - c/w hydaralzine 100 tid - Resume enalapril 20 mg bid -add chlorthalidone 25 mg daiy -ok to resume metformin - c/w Labetalol 100mg BID( she had bradycardia with higher doses) Time Spent With Patient Time: Total time spent is greater than 50% in coordination of care (as documented) at patient's floor/unit and/or counseling patient: Procedures Date of Service Date of Service: 02/25/21 Progress Note: Quality Stroke Does the patient have a stroke diagnosis?: No
--- NOTE | 2021-02-25 14:12 | HO.PM.IMPN ---
Subjective Subjective Date of Service: 02/25/21 Interval History: No acute complaints, no headache, no dizziness. ROS GEN no fevers, no chills [employer] no headache, no dizziness GI no nausea, no abdominal pain, no diarrhea respiratory no cough, no shortness of breath. Physical Exam Vital Signs: Vital Signs: Last Vital Signs Temp 97.3 F 02/25/21 08:00 Pulse 59 02/25/21 08:00 Resp 18 02/25/21 08:00 BP 188/80 H 02/25/21 08:00 Pulse Ox 95 02/25/21 08:00 Body Mass Index 20.1 General:no acute distress Neck: Supple Resp: CTA bilaterally CVS: Regular rate rhythm GI: Abdomen soft, nontender, bowel sounds audible Skin: No rash Neuro: nonfocal Psych: appropriate affect Objective Data Current Medications Generic Name Dose Route Start Last Admin Trade Name Freq PRN Reason Stop Dose Admin Donepezil HCl 5 mg 12/11/20 21:00 02/24/21 20:18 Donepezil Hcl 5 Mg Tablet PO 5 mg BEDTIME RAGHAVENDRA Administration Enalapril Maleate 20 mg 01/24/21 21:00 02/25/21 08:21 Enalapril Maleate 10 Mg Tablet PO 20 mg BID RAGHAVENDRA Administration Glipizide 2.5 mg 02/24/21 17:00 02/25/21 08:20 Glipizide 5 Mg Tablet PO 2.5 mg BIDWM RAGHAVENDRA Administration Hydralazine HCl 100 mg 02/10/21 15:00 02/25/21 08:22 Hydralazine Hcl 50 Mg Tablet PO 100 mg TID RAGHAVENDRA Administration Protocol Labetalol HCl 100 mg 02/21/21 09:00 02/25/21 08:21 Labetalol Hcl 100 Mg Tablet PO 100 mg BID RAGHAVENDRA Administration Protocol Levothyroxine Sodium 75 mcg 01/13/21 09:00 02/25/21 06:04 Levothyroxine Sodium 75 Mcg Tablet PO 75 mcg DAILY@0600 RAGHAVENDRA Administration Nifedipine 120 mg 02/13/21 09:00 02/25/21 08:22 Nifedipine Er 60 Mg Tab.Er.24 PO 120 mg DAILY RAGHAVENDRA Administration Protocol Spironolactone 25 mg 02/25/21 09:00 02/25/21 08:21 Spironolactone 25 Mg Tablet PO 25 mg DAILY RAGHAVENDRA Administration Protocol Labs CBC & Chem 7: 06/21/21 09:11 02/25/21 06:23 Labs: Laboratory Results - last 24 hr 02/25/21 06:23 Sodium 143 Potassium 4.9 Chloride 109 H Carbon Dioxide 25 Anion Gap 14 BUN 41 H Creatinine 1.25 Estim Creat Clear Calc 27.7 Estimated GFR 41 Random Glucose 139 H Calcium 9.2 Quality Stroke Does the patient have a stroke diagnosis?: No VTE Prior VTE?: No VTE Risk Level:: Medical - moderate - high VTE Device Contraindication: N/A - Device Ordered VTE Drug Contraindication: N/A - Med Ordered Assessment and Plan (1) HTN (hypertension): Status: Acute (2) Dementia, vascular, mixed: Status: Acute (3) Communicating hydrocephalus: Status: Acute (4) Bradycardia: Status: Acute (5) Neurocognitive disorder: Status: Acute Assessment and Plan: 85yo F with HTN, HLD, DM2, hypothyroidism, CAD s/p PCI. initially admitted with falls, elevated troponin; disposition complicated by cognitive impairment requiring guardianship No change in status # Resistant HTN, BP is better controlled with addition of labetalol , noted to have elevated creatinine 02/24, therefore reduce dose of Aldactone to 25 mg daily creatinine normalized With continue Nifedipine 120/d, Hydralazine 100 tid, Enalapril 20 bid and Labetalol 100 bid and Aldactone 25 mg daily. Dopplers renal showed medical renal disease, CTA recommended to definitely rule out renal artery stenosis, patient being followed by Nephrology they recommend to hold off on further studies at present. Follow blood pressure closely. # Chronic kidney disease stage 3 noted to have worsening creatinine and significant drop in GFR 02/24 likely pre renal Creatinine improved today, metformin discontinued, continue to follow BMP closely # cognitive impairment - evaluated by psychiatry does need guardianship awaiting paperwork # hx CAD - continue ASA + statin, had bradycardia therefore was not placed on beta-derrek, pulse remains low but stable # DM2 complicated by hypoglycemia - couple high blood sugar readings in last few days, hemoglobin A1c 6.2 ,dc metformin due to worsening renal function, added glipizide better blood sugar control today recommend strict diabetic diet # hypothyroidism - continue LT4 # C diff colitis resolved, s/p 14d of vancomycin treatment # acute grief reaction/depression - due to passing of , seems stable #Chronic anemia--H/H has been stable, periodic CBC # VTE ppx - ambulating well multiple times per day, would consider low risk for VTE, now off LMWH
[2021-02-25 15:10] VITALS: BP 161/63; PULSE 57; RESP 15; TEMP 36.3; O2SAT 95
[2021-02-25 20:28] VITALS: BP 161/63; PULSE 57
[2021-02-25] MEDS: Donepezil HCl 5 MG TABLET PO (20:28)
[2021-02-25 20:29] VITALS: BP 161/63; PULSE 57
[2021-02-26] VITALS (7 sets, daily range): BP systolic 137–188; BP diastolic 67–78; PULSE 62–70; RESP 15–20; TEMP 36–37; O2SAT 94–98
[2021-02-26] MEDS: Levothyroxine Sodium 75 MCG TABLET PO (06:05)
[2021-02-26 07:34] LABS: Glucose, Whole Blood 123 mg/dL (60-115)
--- NOTE | 2021-02-26 07:44 | PM.PNNEP ---
Subjective Subjective Date of Service: 02/26/21 Interval history: No acute complaints, no headache, no dizziness. ROS GEN no fevers, no chills [employer] no headache, no dizziness GI no nausea, no abdominal pain, no diarrhea respiratory no cough, no shortness of breath. Physical Exam Vital Signs: Vital Signs: Last Vital Signs Temp 97.5 F 02/26/21 07:22 Pulse 70 02/26/21 07:22 Resp 15 02/26/21 07:22 BP 188/74 H 02/26/21 07:22 Pulse Ox 96 02/26/21 07:22 Body Mass Index 20.1 Const: Other: General: AO X 3, no acute distress Resp: CTA bilateral CVS: S1,S2,RRR GI: +BS, NT, no distention Skin: No rash Neuro: motor grossly intact Psych: depressed compare to usual General: cooperative, healthy appearing, comfortable, no acute distress, well developed, alert and awake; No acute distress Nutritional Appearance: average body habitus and well nourished Orientation/consciousness: oriented to person, oriented to place and patient oriented x3 Limitations: no limitations and other limitations (Question if the patient remembers events correctly) HENMT: Head: Yes normal to inspection, Yes normocephalic and Yes atraumatic Ears: hearing grossly normal bilaterally and external ears normal General nose exam: Normal external nose present Face and sinus: Yes normal facial exam Mouth: Normal oral and palatal mucosa present and oropharynx normal Throat: Yes posterior oropharynx normal Eyes: General: appearance normal, both eyes and all related structures Visual Adam: normal visual adam by confrontation Alignment and Position: alignment normal Periorbital: periorbital findings normal Eyelids: Yes eyelids normal Conjunctivae: conjunctivae normal Sclerae: sclerae normal Corneas: corneas normal Pupils: Equal, round and reactive pupils present and Pupil accommodation reflex normal EOM: EOMs intact bilaterally Direct Ophthalmoscopy: normal light reflex Neck: Neck: Yes normal visual inspection, Yes full ROM, Yes no lymphadenopathy, Yes no meningeal signs, Yes trachea midline and Yes supple Thyroid: Thyroid normal Carotids: normal carotid upstroke and bounding pulses Chest: Chest palpation & inspection: normal inspection of the chest and normal palpation of entire chest wall Resp: Effort & Inspection: normal respiratory effort and able to speak in complete sentences Auscultation: clear to auscultation bilaterally, no crackles, no wheezes and diminished lung sounds Cardio: Jugular venous distension: no JVD Palpation: normal PMI Rate: regular rate Rhythm: regular rhythm Heart sounds: S1 normal heart sound present, S2 normal heart sound present, no gallops, Murmur heart sound present systolic early, III/ and at the right sternal border and no rubs Peripheral pulses: Peripheral pulses 2+ throughout GI: Inspection: Yes normal to inspection Palpation (GI): Soft to palpation, nontender, no guarding, not rigid and No hepatosplenomegaly present Percussion: Yes normal to percussion Auscultation: normal bowel sounds Rectal Exam - Female: deferred : General: Yes no CVA tenderness Back/Spine/Pelvis: Back: no CVA tenderness Cervical Spine: normal cervical lordosis and cervical ROM normal Thoracic/Lumbar Spine: thoracic and lumbar spine normal to inspection Skin: General skin exam: no rashes or lesions noted Lesions: no lesions Rashes: no rashes Wounds: no wounds Neuro: General: oriented to person, oriented to place, patient oriented x3, tone normal, moves all extremities, Normal light touch and pain sensation, no meningeal signs, no focal motor deficits, CN's II-XI intact bilaterally, normal sensation to monofilament and deep tendon reflexes 2+ bilaterally Cranial nerves: Yes CN's II-XII intact bilaterally, Yes Equal, round and reactive pupils present, Yes Bilaterally intact EOM present, Yes Nystagmus not present, Yes Normal facial strength present, Yes Midline tongue present, Yes Normal gag reflex present, Yes Symmetric palate elevation present, Yes Normal hearing present and Yes Ability to bilaterally rotate head present Cognition (Neuro): normal cognition and abnormal cognition Speech: Abnormal speech present and Other speech findings present (Neuro) Motor exam (neuro): 5/5 motor strength present throughout, Pronator motor function not present, no tremor noted, no asterixis, Motor fasciculations not present, Normal motor muscle tone present throughout and Motor abnormalities not present Sensory Exam: Bilaterally intact graphesthesia and Sensory deficit (Neuro) Deep tendon reflexes (DTR's): Right triceps reflex intensity grade: 2+, Left triceps reflex intensity grade: 2+, Rt Biceps (C5, C6): 2+, Left biceps reflex intensity grade: 2+, Right brachioradialis reflex intensity grade: 2+, Left brachioradialis reflex intensity grade: 2+, Right patellar reflex intensity grade: 2+, Left patellar reflex intensity grade: 2+, Right ankle reflex intensity grade: 2+ and Left ankle reflex intensity grade: 2+ Plantar Reflex Responses: downgoing: right, left and bilateral Coordination: [id number] test normal and [id number] test normal Pupils: Normal pupillary reactivity/response: bilateral Extrem: General: Yes normal to inspection, Yes full ROM, Yes normal exam except as noted, Yes no clubbing, cyanosis or edema and Yes no pedal edema Psych: Appearance: grossly normal and well kempt Mental Status: mental status grossly normal Speech and movement: Normal speech and movement present and Clear speech present Affect: normal affect Attitude: cooperative Thought process: Normal thought process present Thought content: Normal thought content present Insight: Other insight findings present (Psych) (Patient may not be recalling events correctly based discussion with [facility]) Objective Data Labs CBC & Chem 7: 02/05/21 09:11 02/25/21 06:23 Labs: Laboratory Results - last 24 hr 02/26/21 07:24 POC Glucose 123 H Microbiology Microbiology Results: Microbiology 11/24/20 08:18 Stool Stool Culture - Final 09/21/20 Unknown Urine clean catch - Clean Catch Midstream Urine Culture - Final No growth. Assessment & Plan Assessment and plan (1) HTN (hypertension): Status: Acute (2) Dementia, vascular, mixed: Status: Acute (3) Communicating hydrocephalus: Status: Acute (4) Bradycardia: Status: Acute (5) Neurocognitive disorder: Status: Acute Assessment and Plan: 85yo F with HTN, HLD, DM2, hypothyroidism, CAD s/p PCI. initially admitted with falls, elevated troponin; disposition complicated by cognitive impairment requiring guardianship No change in status # Resistant HTN, BP is better controlled with addition of labetalol , noted to have elevated creatinine 02/24, therefore reduce dose of Aldactone to 25 mg daily creatinine normalized With continue Nifedipine 120/d, Hydralazine 100 tid, Enalapril 20 bid and Labetalol 100 bid and Aldactone 25 mg daily. Dopplers renal showed medical renal disease, CTA recommended to definitely rule out renal artery stenosis, patient being followed by Nephrology they recommend to hold off on further studies at present. Follow blood pressure closely. # Chronic kidney disease stage 3 noted to have worsening creatinine and significant drop in GFR 02/24 likely pre renal Creatinine improved, metformin discontinued, continue to follow BMP closely Time Spent With Patient Time: Total time spent is greater than 50% in coordination of care (as documented) at patient's floor/unit and/or counseling patient: Procedures Date of Service Date of Service: 02/26/21 Progress Note: Quality Stroke Does the patient have a stroke diagnosis?: No
[2021-02-26] MEDS: glipiZIDE 5 MG TABLET 2.5 MG PO ×2 (08:13→16:50)
[2021-02-26] MEDS: NIFEdipine ER 60 MG TAB.ER.24 120 MG PO (08:14)
[2021-02-26] MEDS: hydrALAZINE HCl 50 MG TABLET 100 MG PO ×3 (08:15→21:08)
[2021-02-26] MEDS: Spironolactone 25 MG TABLET PO (08:15)
[2021-02-26] MEDS: Enalapril Maleate 10 MG TABLET 20 MG PO ×2 (08:15→21:08)
[2021-02-26] MEDS: Labetalol HCL 100 MG TABLET PO ×2 (08:16→21:07)
--- NOTE | 2021-02-26 14:37 | P.PNIM_ITS ---
Subjective Subjective Date of Service: 02/26/21 Interval History: was noted to be confused this morning and sitting on the ground. when asked about it, stated she just felt tired and sat down, denies falling, no signs of head trauma, denies any pain Physical Exam Vital Signs: Vital Signs: Last Vital Signs Temp 97.5 F 02/26/21 07:22 Pulse 70 02/26/21 07:22 Resp 15 02/26/21 07:22 BP 188/74 H 02/26/21 07:22 Pulse Ox 96 02/26/21 07:22 Body Mass Index 20.1 gen: NAD HEENT: NC/AT lungs: clear B CV: RRR no murmurs Objective Data Current Medications Generic Name Dose Route Start Last Admin Trade Name Freq PRN Reason Stop Dose Admin Donepezil HCl 5 mg 12/11/20 21:00 02/25/21 20:28 Donepezil Hcl 5 Mg Tablet PO 5 mg BEDTIME RAGHAVENDRA Administration Enalapril Maleate 20 mg 01/24/21 21:00 02/26/21 08:15 Enalapril Maleate 10 Mg Tablet PO 20 mg BID RAGHAVENDRA Administration Glipizide 2.5 mg 02/24/21 17:00 02/26/21 08:13 Glipizide 5 Mg Tablet PO 2.5 mg BIDWM RAGHAVENDRA Administration Hydralazine HCl 100 mg 02/10/21 15:00 02/26/21 08:15 Hydralazine Hcl 50 Mg Tablet PO 100 mg TID RAGHAVENDRA Administration Protocol Labetalol HCl 100 mg 02/21/21 09:00 02/26/21 08:16 Labetalol Hcl 100 Mg Tablet PO 100 mg BID RAGHAVENDRA Administration Protocol Levothyroxine Sodium 75 mcg 01/13/21 09:00 02/26/21 06:05 Levothyroxine Sodium 75 Mcg Tablet PO 75 mcg DAILY@0600 RAGHAVENDRA Administration Nifedipine 120 mg 02/13/21 09:00 02/26/21 08:14 Nifedipine Er 60 Mg Tab.Er.24 PO 120 mg DAILY RAGHAVENDRA Administration Protocol Spironolactone 25 mg 02/25/21 09:00 02/26/21 08:15 Spironolactone 25 Mg Tablet PO 25 mg DAILY RAGHAVENDRA Administration Protocol Labs CBC & Chem 7: 02/05/21 09:11 02/25/21 06:23 Labs: Laboratory Results - last 24 hr 07/12/21 07:24 POC Glucose 123 H Quality Stroke Does the patient have a stroke diagnosis?: No VTE Prior VTE?: No VTE Risk Level:: Medical - moderate - high VTE Device Contraindication: N/A - Device Ordered VTE Drug Contraindication: N/A - Med Ordered Assessment and Plan (1) HTN (hypertension): Status: Acute (2) Dementia, vascular, mixed: Status: Acute (3) Communicating hydrocephalus: Status: Acute (4) Bradycardia: Status: Acute (5) Neurocognitive disorder: Status: Acute Assessment and Plan: hospital [id number] 85yo F with HTN, HLD, DM2, hypothyroidism, CAD s/p PCI. initially admitted with falls, elevated troponin; disposition complicated by cognitive impairment requiring guardianship # resistant HTN - continue nifedipine 120mg daily, hydralazine 100mg tid, enalapril 20mg bid, labetalol 100mg bid, and spironolactone 25mg daily - Dopplers renal showed medical renal disease + mildly elevated velocity within the proximal left main renal artery that may represent a focal stenosis less than 60%; CTA recommended to definitely rule out renal artery stenosis, patient being followed by Nephrology they recommend to hold off on further studies at present given elevated SCr 02/24- improved- will consider CTA to definitely rule out TIMMY if SCr continues to improve - continue to monitor BP # CKD - continue to monitor BMP, avoid nephrotoxins # cognitive impairment - evaluated by psychiatry does need guardianship + awaiting paperwork # hx CAD - continue ASA + statin, had bradycardia therefore was not placed on beta- derrek, pulse remains low but stable # DM2 complicated by hypoglycemia - couple high blood sugar readings in last few days, hemoglobin A1c 6.2 01/05/21, d/c'ed metformin due to worsening renal function, added glipizide better blood sugar control today recommend strict diabetic diet # hypothyroidism - continue LT4 # C diff colitis resolved, s/p 14d of vancomycin treatment # acute grief reaction/depression - due to passing of , seems stable #Chronic anemia--H/H has been stable, periodic CBC # VTE ppx - ambulating well multiple times per day, would consider low risk for VTE, now off LMWH
--- NOTE | 2021-02-26 15:31 | MHC.CM.PN ---
NURSE CARE MANAGEMENT NOTE ELECTRONIC MEDICAL RECORD REVIEWED TELEPHONE CALL TO CONSERVATOR /GUARDIANSHIP CRISTINA JERRY, SHE INFORMED ME SHE STARTED THE [employer] APPLICATION AND SENT IN PAPERWORK SHOWING BANK BALANCES, SHE ALSO CONFIRMED SHE WILL FAX TO THE CASE MANAGEMENT OFFICE THIS PAPERWORK SO WE CAN GIVE IT TO A FACILITY TO REVIEW WHO IS INTERESTED IN ACCEPTING PATIENT . CRISTINA AGAIN REQUESTED A LOCKED DEMENTIA UNTI TO SEE HOW SHE DOES AND IF SHE NEEDS LESSER CARE AND THEN MOVE FORWARD (SHE REPORTED SHE IS AFRAID THAT ONCE OUT OF THE HOSPITAL SHE WILL STILL TRY TO GET BACK TO HER HOME .
--- NOTE | 2021-02-26 18:29 | PC.NURSE ---
late entry: 829- Pt found sitting on the floor in her room. When asked what happened, she stated I can't get up. I couldn't stand so I was being safe and just sat on the ground Pt A/O to person and place. Confused to time of day and place. Assisted to chair. VSS. Pt with all extremities with good strength but when ambulated, pt noted to have an unsteady gait. Telesitter placed in room with bed alarm set for pt safety. Pt sleepier than her usual self as well. Ate a few bites of breakfast and lunch. Throughout the day pt has been upset over her finances and her house. Federico Knox nurse network manager in to speak with pt.
[2021-02-26 19:22] LABS: Glucose, Whole Blood 182 mg/dL (60-115)
[2021-02-26 19:58] LABS: Anion Gap 18 (12-20); Blood Urea Nitrogen 37 mg/dL (9-16); Calcium 9.7 mg/dL (8.4-10.2); Carbon Dioxide 22 mmol/L (22-29); Chloride 107 mmol/L (96-108); Creatinine Clr Calc Pharmacy 21.6; Estimated Glomerular Filt Rate 31; Glucose Random 196 mg/dL (60-115); Potassium 4.8 mmol/L (3.3-5.1); Sodium 142 mmol/L (135-145)
[2021-02-26] MEDS: iohexoL 350 MG/ML 100 ML INFUS..BTL IV (19:59)
[2021-02-26 20:00] LABS: B Type Natriuretic Peptide 814 pg/mL (<100)
[2021-02-26 20:33] LABS: Troponin-I High Sensitivity 30.8 ng/L (<3.5-17.0)
--- NOTE | 2021-02-26 20:45 | P.EN_ITS ---
Event Note Date of Service: 02/27/21 Event Note: A rapid response was called on the patient around 7:00 p.m. due to difficulty breathing. On arrival to the colon patient appears to be in respiratory distress Q tachypneic, complaining of difficulty breathing with no chest pain, no cough. Labs showed a troponin of 30.8 , EKG shows some T-wave inversions in inferior leads with no chest pain and elevated BNP of 814. Chest x-ray shows changes suggestive of acute pulmonary edema, CT angiogram of the chest showed patchy bilateral as per disease more prominent in the dependent along with associated small bilateral pleural effusion. Given the elevated BNP as well as the chest x-ray as well CT findings patient wi ll be treated for CHF exacerbation. No evidence of PE Will order Lasix 40 b.i.d., echocardiogram, consult Cardiology
[2021-02-26] MEDS: Donepezil HCl 5 MG TABLET PO (21:07)
[2021-02-26] MEDS: Morphine Sulfate 4 MG/ML CARTRIDGE IVPUSH (21:09)
[2021-02-26] MEDS: Furosemide 40 MG/4 ML VIAL IVPUSH (21:15)
[2021-02-27] VITALS (7 sets, daily range): BP systolic 98–189; BP diastolic 53–98; PULSE 57–74; RESP 18–19; TEMP 36.6–36.8; O2SAT 90–95
--- NOTE | 2021-02-27 | ECG_ITS ---
Test Reason : CP Blood Pressure : / mmHG Vent. Rate : 079 BPM Atrial Rate : 079 BPM P-R Int : 186 ms QRS Dur : 098 ms QT Int : 380 ms P-R-T Axes : 063 -24 101 degrees QTc Int : 435 ms Normal sinus rhythm Left ventricular hypertrophy with repolarization abnormality Abnormal ECG When compared with ECG of 26-FEB-2021 19:07, No significant change was found Referred By: Franck Goyal Electronically Signed By:Mohinder Walker
[2021-02-27] MEDS: Levothyroxine Sodium 75 MCG TABLET PO (06:33)
[2021-02-27 06:47] LABS: Anion Gap 14 (12-20); Blood Urea Nitrogen 41 mg/dL (9-16); Carbon Dioxide 26 mmol/L (22-29); Chloride 105 mmol/L (96-108); Creatinine Clr Calc Pharmacy 23.4; Estimated Glomerular Filt Rate 34; Glucose Random 229 mg/dL (60-115); Potassium 4.3 mmol/L (3.3-5.1); Sodium 141 mmol/L (135-145)
[2021-02-27] MEDS: Furosemide 40 MG/4 ML VIAL IVPUSH ×2 (07:32→17:26)
[2021-02-27] MEDS: Spironolactone 25 MG TABLET PO (07:32)
[2021-02-27] MEDS: Enalapril Maleate 10 MG TABLET 20 MG PO (07:33)
[2021-02-27] MEDS: NIFEdipine ER 60 MG TAB.ER.24 120 MG PO (07:33)
[2021-02-27] MEDS: glipiZIDE 5 MG TABLET 2.5 MG PO ×2 (07:33→16:27)
[2021-02-27] MEDS: Labetalol HCL 100 MG TABLET PO (07:33)
[2021-02-27] MEDS: hydrALAZINE HCl 50 MG TABLET 100 MG PO (07:33)
[2021-02-27 07:40] LABS: Glucose, Whole Blood 171 mg/dL (60-115)
[2021-02-27 08:26] LABS: Hematocrit 27.1 % (37-47); Hemoglobin 8.8 g/dl (12.0-16.0); Mean Corpuscular HGB Conc 32.5 g/dl (31.0-35.0); Mean Corpuscular Hemoglobin 30.1 pg (27.0-33.0); Mean Corpuscular Volume 92.8 fL (80-98); Mean Platelet Volume 11.1 fL (9.4-12.3); Platelet Count 290 X10*3/uL (160-400); Red Blood Count 2.92 X10*6/uL (4.20-5.50); Red Cell Distribution Width 13.7 % (11.0-16.0); White Blood Count 16.3 X10*3/uL (4.8-10.8)
[2021-02-27 08:31] LABS: INTERNATIONAL NORM RATIO 1.1 (0.9-1.1); Prothrombin Time 12.7 SEC (9.9-13.0)
[2021-02-27 08:33] LABS: PTT Heparin Drip 31.1 SEC (53-77.9)
[2021-02-27] MEDS: Heparin Sodium,Porcine 5,000 UNIT/ML VIAL 3100 UNIT IVPUSH (08:36)
[2021-02-27] MEDS: Heparin Sodium,Porcine/1/2NS 25,000 UNIT/250 ML IV.SOLN 6.18 UNIT IVCONT (08:38)
--- NOTE | 2021-02-27 08:50 | MHC.CM.PN ---
Addendum entered by Martha Snow 02/27/21 09:07: patient also started on heparin gtt Original Note: nurse lawn care specialist note electronic medical record reviewed along with case discussed with staff nurse last evening per documentation (she rapid response was called for patient she was having difficulty breathing was elevated, troponin of 30.8, ekg showed some t wave inversions in inferior leads no chest pain, bnp 814, cr shows acute pulmonary edema ct angiogram of chest showed patchy bilateral pleural effusions per documentation patient will be treated for chf and monitor all cardiac labs cardiac thoracic echo for today ,lasix 40mg bid cardiology following labs showed) lawn care specialist to continue to follow, case reviewed at length of stay rounds
[2021-02-27 08:51] LABS: Troponin-I High Sensitivity 1515.2 ng/L (<3.5-17.0)
[2021-02-27] MEDS: Aspirin 325 MG TABLET PO (09:38)
[2021-02-27] MEDS: Atorvastatin Calcium 80 MG TABLET PO ×2 (09:38→20:16)
[2021-02-27] MEDS: Metoprolol Tartrate 25 MG TABLET PO (09:39)
--- NOTE | 2021-02-27 10:30 | CA_ITS ---
Transthoracic Echocardiogram Patient (Last, First, Middle): Kathleen Bradley A Gender: Female Date of : 1935 Age: 85 Procedure Date: 02/27/2021 Procedure Type: Transthoracic Echocardiogram Location: [facility] [place] Height: 160.02 cm Weight: 51.26 kg BSA: 1.52 m2 Heart Rate: bpm BP: 156 / 70 mmHg Customer Assistant: Referring MD: Lydia Eldridge MD Symptoms: chf Study Quality: Fair ECG Rhythm: Sinus Conclusions: - Normal left ventricular size and systolic function. - E/E prime ratio is >15, consistent with elevated filling pressures. - There is moderate aortic valve stenosis. The peak aortic velocity is 3.13 m/s. The aortic valve area is 1.51 cm2. - Moderate pulmonary hypertension is present. Findings Left Ventricle Normal left ventricular size and systolic function. There is mildly increased left ventricular wall thickness. The visually estimated ejection fraction is between 55-60%. There is no evidence of regional wall motion abnormalities. Abnormal diastolic function is noted. Spectral Doppler is indicative of an impaired relaxation filling pattern. E/E prime ratio is >15, consistent with elevated filling pressures. Right Ventricle Normal right ventricular cavity size and systolic function. Atria The left atrium is mildly dilated. Aortic Valve There is mild calcification of the aortic valve. There is mild thickening of the aortic valve. There is moderate aortic valve stenosis. The peak aortic velocity is 3.13 m/s. The aortic valve area is 1.51 cm2. There is no aortic valve regurgitation. Mitral Valve There is mild mitral annular calcification. There is trace mitral valve regurgitation. There is no mitral valve stenosis. Tricuspid Valve Normal tricuspid valve structure. There is mild to moderate tricuspid valve regurgitation. Normal right atrial pressure. Moderate pulmonary hypertension is present. Great Vessels All visible segments of the aorta are normal in size. The pulmonary artery was not well visualized. Venous The inferior vena cava is normal in size and collapses greater than 50% with inspiration. Pericardium/Pleural There is no evidence of pericardial effusion. Prior Study Comparison Significant changes compared to prior study dated: 09/21/2020. Moderate . Moderate pulmonary hypertension. Measurements 2D Linear Measurements IVSd: 1.03 0.6-0.9/0.6-1.0 cm LVIDd: 4.60 3.9-5.3/4.2-5.9 cm LVIDd Index: 3.03 2.4-3.2/2.2-3.1 cm/m2 LVIDs: 2.89 2.0-3.6 cm LVPWd: 0.97 0.7-1.1 cm Ao Root: 2.50 2.1-3.5 cm LA Diam: 3.20 2.7-3.8/3.0-4.0 cm LAIDs Index: 2.11 1.5-2.3 cm/m2 LV Mass: 197.63 67-162/88-224 g LV Mass Index: 130.02 43-95/49-115 g/m2 LVOT Diam: 2.00 3.0+(-)1.3 cm Mitral Valve MV VTI: 0.50 MV Pk Nicola: 1.65 MV Mn Nicola: 0.94 MV Pk Grad: 11.00 MV Mn Grad: 4.00 MV Pk E: 1.26 MV PK A: 1.33 MV Decel Time: 206.00 E/A: 0.90 E'Lateral: 6.74 E'Medial: 6.31 E/E' Med: 20.00 E/E' Lat: 18.70 PHT: 60.00 MVA PHT: 3.67 MVA Continuity: 2.07 Decel [place]: 6.11 Aortic Valve AoV Pk Nicola: 3.13 AoV Mn Nicola: 2.06 AoV VTI: 0.68 AoV Pk Grad: 39.00 Aov Mn Grad: 20.00 GÓMEZ Cont.VTI: 1.51 LVOT LVOT Pk Nicola: 1.32 LVOT Mn Nicola: 0.91 LVOT VTI: 0.33 LVOT Pk Grad: 7.00 LVOT Mn Grad: 4.00 LVOT Diam: 2.00 LVOT Area: 3.14 Diastolic Function MV Pk E: 1.26 MV Pk A: 1.33 E/A: 0.90 E'Medial: 6.31 E/E' Med: 20.00 E' Laterial: 6.74 E/E' Lat: 18.70 Tricuspid Valve TR Pk Nicola: 3.60 TR Pk Grad: 52.00 RA Press: 3.00 RVSP: 55.00 Great Vessels Aorta Ao Root-2D: 2.50 2.0-3.7 cm Ao Asc: 2.90 2.1-3.4 cm Pulmonary Valve PV Pk Nicola: 1.03 Peak PV Grad: 4.00 Updated in Other Vendor System with Status of Final Mohinder Walker MD electronically signed on 02/27/2021 3:18:48 PM with status of Final
--- NOTE | 2021-02-27 11:20 | P.CONCA_ITS ---
History of Present Illness History of Present Illness Date of Service: 02/27/21 Requesting physician: Franck Goyal Chief complaint: CHF Narrative: 85-year-old female who has been the hospital for long time and is waiting for placement. We have been reconsulted primarily for pulmonary edema that happened last night. It appears her blood pressure was elevated and she developed shortness of breath last evening and developed congestive heart failure. She denies any symptoms right now and does not remember anything from last night. She in particular is denying chest discomfort or chest tightness. Her troponins are positive with they high sensitivity troponin level of 1515. Blood pressure is better controlled now. She is denying any symptoms right now. She has been on heparin drip. Review of Systems Review of Systems: Denies chest discomfort shortness of breath. [facility] Past Medical History Medical History (Updated 02/27/21 @ 11:37 by Mohinder Walker MD) Atherosclerotic cardiovascular disease Diabetes HTN (hypertension) Non-rheumatic aortic stenosis Social History Social History Household Members: Spouse Housing: Unknown / Unable to assess Unable to assess alcohol history related to: Unknown Alcohol intake: never service: No Current occupational status: retired Meds Allergies Allergy/AdvReac Type Severity Reaction Status Date / Time Penicillins [PCN] Allergy Mild HIVES Verified 09/26/20 20:26 ciprofloxacin [Cipro] Allergy Unknown Itching Verified 09/26/20 20:26 penicillin V Allergy Unknown Unknown Verified 09/26/20 20:26 Sulfa (Sulfonamide Allergy Unknown Unknown Verified 09/26/20 20:26 Antibiotics) Active Medications: Current Medications Generic Name Dose Route Start Last Admin Trade Name Srinivas PRN Reason Stop Dose Admin Aspirin 81 mg 02/28/21 09:00 Aspirin 81 Mg Tab.Chew PO DAILY RAGHAVENDRA Atorvastatin Calcium 80 mg 02/27/21 08:00 02/27/21 09:38 Atorvastatin Calcium 80 Mg Tablet PO 80 mg BEDTIME RAGHAVENDRA Administration Donepezil HCl 5 mg 12/11/20 21:00 02/26/21 21:07 Donepezil Hcl 5 Mg Tablet PO 5 mg BEDTIME RAGHAVENDRA Administration Enalapril Maleate 20 mg 01/24/21 21:00 02/27/21 07:33 Enalapril Maleate 10 Mg Tablet PO 20 mg BID RAGHAVENDRA Administration Furosemide 40 mg 02/27/21 09:00 02/27/21 07:32 Furosemide 40 Mg/4 Ml Vial IVPUSH 40 mg BID@0900,1800 [facility] Administration Protocol Glipizide 2.5 mg 02/24/21 17:00 02/27/21 07:33 Glipizide 5 Mg Tablet PO 2.5 mg BIDWM RAGHAVENDRA Administration Heparin Sodium (Porcine) 2,100 unit 02/27/21 07:55 Heparin Sodium,Porcine 5,000 Unit/Ml Vial 40 unit/kg (2100 unit) IVPUSH BOLUS PRN 40 unit/kg - Heparin Protocol Heparin Sodium (Porcine) 4,100 unit 02/27/21 07:55 Heparin Sodium,Porcine 5,000 Unit/Ml Vial 80 unit/kg (4100 unit) IVPUSH BOLUS PRN 80 unit/kg - Heparin Protocol Hydralazine HCl 100 mg 02/10/21 15:00 02/27/21 07:33 Hydralazine Hcl 50 Mg Tablet PO 100 mg TID [facility] Administration Protocol Heparin Sodium/Sodium Chloride 25,000 unit in 250 mls @ 0 mls/hr 02/27/21 08:00 02/27/21 08:38 IVCONT 12 units/kg/hr .Q0M RAGHAVENDRA 6.18 mls/hr Administration Protocol Per Protocol Levothyroxine Sodium 75 mcg 01/13/21 09:00 02/27/21 06:33 Levothyroxine Sodium 75 Mcg Tablet PO 75 mcg DAILY@0600 [facility] Administration Metoprolol Tartrate 25 mg 02/27/21 09:00 02/27/21 09:39 Metoprolol Tartrate 25 Mg Tablet PO 25 mg QID [facility] Administration Protocol Morphine Sulfate 4 mg 02/26/21 19:12 02/26/21 21:09 Morphine Sulfate 4 Mg/Ml Cartridge IVPUSH 4 mg ONCE PRN Administration Shortness of Breath Nifedipine 120 mg 02/13/21 09:00 02/27/21 07:33 Nifedipine Er 60 Mg Tab.Er.24 PO 120 mg DAILY [facility] Administration Protocol Spironolactone 25 mg 02/25/21 09:00 02/27/21 07:32 Spironolactone 25 Mg Tablet PO 25 mg DAILY [facility] Administration Protocol Home Medications Medication Instructions Recorded Confirmed Last Taken Type amlodipine 10 mg PO DAILY 09/20/20 09/20/20 Unknown History enalapril maleate 20 mg PO BID 09/20/20 09/20/20 Unknown History glimepiride 4 mg PO BID 09/20/20 09/20/20 Unknown History hydralazine 25 mg PO BID 09/20/20 09/20/20 Unknown History hydrochlorothiazide 25 mg PO DAILY 09/20/20 09/20/20 Unknown History levothyroxine 75 mcg PO DAILY 09/20/20 09/20/20 Unknown History metformin 500 mg PO BID 09/20/20 09/20/20 Unknown History metoprolol succinate 50 mg PO DAILY 09/20/20 09/20/20 Unknown History tramadol 50 mg PO TID PRN 09/20/20 09/20/20 Unknown History Physical Exam Vital Signs: Vital Signs: Last Vital Signs Temp 97.8 F 02/27/21 07:20 Pulse 74 02/27/21 07:20 Resp 18 02/27/21 07:20 BP 189/98 H 02/27/21 07:20 Pulse Ox 95 02/27/21 07:20 Body Mass Index 20.1 GENERAL APPEARANCE: in no acute distress, pleasant. NECK: no carotid bruit, + jugular venous distention. SKIN: no suspicious lesions, warm and dry. HEART: no murmurs, regular rate and rhythm. LUNGS: Few crackles at bases. ABDOMEN: soft, nontender. EXTREMITIES: no edema. PERIPHERAL PULSES: equal. NEUROLOGIC: No gross deficits, AAO X 3 Results Labs and Meds Result diagrams: 02/27/21 08:16 02/27/21 06:00 Lab results: Laboratory Results - last 24 hr 02/26/21 02/26/21 02/26/21 19:01 19:25 19:25 WBC RBC Hgb Hct MCV MCH MCHC RDW Plt Count MPV Absolute Nucleated RBC Nucleated RBC % (auto) PT INR PTT (Heparin Protocol) Sodium Potassium Chloride Carbon Dioxide Anion Gap BUN Creatinine Estim Creat Clear Calc Estimated GFR POC Glucose 182 H Random Glucose Calcium Troponin I High Sens 30.8 H* B-Natriuretic Peptide 814 H 02/26/21 02/27/21 02/27/21 19:26 06:00 06:33 WBC RBC Hgb Hct MCV MCH MCHC RDW Plt Count MPV Absolute Nucleated RBC Nucleated RBC % (auto) PT INR PTT (Heparin Protocol) Sodium 142 141 Potassium 4.8 4.3 Chloride 107 105 Carbon Dioxide 22 26 Anion Gap 18 14 BUN 37 H 41 H Creatinine 1.60 H 1.48 H Estim Creat Clear Calc 21.6 23.4 Estimated GFR 31 34 POC Glucose Random Glucose 196 H D 229 H Calcium 9.7 9.0 D Troponin I High Sens 1515.2 H* D B-Natriuretic Peptide 02/27/21 02/27/21 02/27/21 07:22 08:16 08:16 WBC 16.3 H RBC 2.92 L Hgb 8.8 L Hct 27.1 L MCV 92.8 MCH 30.1 MCHC 32.5 RDW 13.7 Plt Count 290 MPV 11.1 Absolute Nucleated RBC 0.000 Nucleated RBC % (auto) 0.0 PT 12.7 INR 1.1 PTT (Heparin Protocol) 31.1 L Sodium Potassium Chloride Carbon Dioxide Anion Gap BUN Creatinine Estim Creat Clear Calc Estimated GFR POC Glucose 171 H Random Glucose Calcium Troponin I High Sens B-Natriuretic Peptide Imaging Radiologist's impression: Impressions Chest X-Ray 02/26/21 19:02 IMPRESSION: Findings suggestive of acute pulmonary edema superimposed on chronic changes Chest CTA 02/26/21 19:07 IMPRESSION: Patchy bilateral airspace disease more prominent in the dependent lung with associated small bilateral pleural effusions. Infectious etiology or aspiration could have this appearance. Pulmonary edema unfortunately cannot be entirely excluded. Clinical correlation will be needed for this nonspecific appearance. I do not appreciate any evidence for pulmonary emboli however VTE: Negative Assessment and Plan (1) Dementia, vascular, mixed: Status: Acute (2) HTN (hypertension): Status: Acute (3) Elevated troponin: Status: Acute (4) CHF (congestive heart failure): Status: Acute Pleasant 85-year-old female who developed congestive heart failure overnight in the setting of high blood pressure. He also had abnormal troponin levels. No chest discomfort. It appears she was hypertensive and hypoxic. I think the troponin elevation can related to congestive heart failure. In any case she is feeling better right now. Agree with anticoagulation for 48 hours. I think she can be changed to enoxaparin and heparin drip can be stopped. Blood pressure is still elevated. She is on multiple medications. I think the metoprolol can be changed to carvedilol 6.25 mg twice a day and can be titrated based on blood pressure response. Agree with baby aspirin. 48 hour of anticoagulation. Thank you for allowing me to participate in the care of your patient. Please feel free to contact me if you have any questions. Procedures Date of Service Date of Service: 02/27/21
[2021-02-27 11:25] LABS: Glucose, Whole Blood 225 mg/dL (60-115)
--- NOTE | 2021-02-27 13:08 | ECG_ITS ---
Test Reason : REPEAT Blood Pressure : / mmHG Vent. Rate : 062 BPM Atrial Rate : 058 BPM P-R Int : 000 ms QRS Dur : 094 ms QT Int : 402 ms P-R-T Axes : 000 -22 102 degrees QTc Int : 408 ms Junctional rhythm Minimal voltage criteria for LVH, may be normal variant Nonspecific ST and T wave abnormality Abnormal ECG When compared to the previous EKG of junctional rhythm present. Referred By: Franck Goyal Electronically Signed By:Mohinder Walker
--- NOTE | 2021-02-27 13:13 | PC.NURSE ---
0715 critical troponin 1515.2 pt bp 189/98 HR 74 . pt resting comfortably in bed no complaints of chest pain , no difficulty breathing noted , pt took all AM meds as directed. at bedside , new order for heparin drip , started by this rn and director . 1155 new changed in rhythm - junctional rhythm, made aware , heparin drip d/c . vs 133/80 HR 62 . pt resting comfortably in bed no complaints , ekg ordered for confirmation of rhythm.
[2021-02-27 15:03] LABS: Hematocrit 25.1 % (37-47); Hemoglobin 8.3 g/dl (12.0-16.0); Mean Corpuscular HGB Conc 33.1 g/dl (31.0-35.0); Mean Corpuscular Hemoglobin 30.5 pg (27.0-33.0); Mean Corpuscular Volume 92.3 fL (80-98); Mean Platelet Volume 11.5 fL (9.4-12.3); Platelet Count 294 X10*3/uL (160-400); Red Blood Count 2.72 X10*6/uL (4.20-5.50); Red Cell Distribution Width 13.6 % (11.0-16.0); White Blood Count 14.8 X10*3/uL (4.8-10.8)
[2021-02-27 15:09] LABS: INTERNATIONAL NORM RATIO 1.2 (0.9-1.1); Prothrombin Time 13.1 SEC (9.9-13.0)
[2021-02-27 15:11] LABS: Partial Thromboplastin Time 31.8 SEC (24.1-38.0)
[2021-02-27] MEDS: Enoxaparin Sodium 60 MG/0.6 ML SYRINGE 50 MG SUBCUT (15:51)
--- NOTE | 2021-02-27 16:22 | MHC.CM.PN ---
CASE DISCUSSED WITH STAFF NURSE.ELECTRONIC MEDICAL RECORD REVIEWED PATIENT IS NOW ON 2 LITERS OXYGEN 90% BP 189/98-1323/80-105/61 CASE DISCUSSED WITH STAFF NURSE TOMMY RIVERA HOSPITALIST INFORMED HIM THAT PATIENT HAD VISITORS FROM THE COMMUNITY ABOUT 1.5 WEEKS AGO AND QUESTIONED POSSIBLE COVID TESTING CONSTERNATION. ALSO ASKED HOSPITALIST IF HE WOULD CONTACT PATIENTS GUARDIAN CRISTINA EDWARDS WITH HER CHANGE IN MEDICAL STATUS. DRILL BIT SHARPENER TO CONTINUE TO FOLLOW.
--- NOTE | 2021-02-27 16:40 | HO.PM.IMPN ---
Subjective Subjective Date of Service: 02/27/21 Interval History: rapid response called yesterday evening for acute hypoxia, placed on 15L NRB CXR/CT scan with possible pulm edema given IV furosemide Tn-I increased but pt denies any chest pain pt now on 3L via NC Physical Exam Vital Signs: Vital Signs: Last Vital Signs Temp 98.3 F 02/27/21 15:49 Pulse 62 02/27/21 15:49 Resp 19 02/27/21 15:49 BP 105/61 02/27/21 15:49 Pulse Ox 90 L 02/27/21 15:49 Body Mass Index 20.1 Gen: in no acute distress HEENT: sclera anicteric, moist mucus membranes Neck: supple Lungs: bibasilar inspiratory crackles Heart: regular rate and rhythm, no murmurs Abd: soft, non-tender, non-distended Ext: no edema Skin: warm/well-perfused Neuro: alert and oriented x3, no focal findings Psych: appropriate affect Objective Data Current Medications Generic Name Dose Route Start Last Admin Trade Name Srinivas PRN Reason Stop Dose Admin Aspirin 81 mg 02/28/21 09:00 Aspirin 81 Mg Tab.Chew PO DAILY [facility] Atorvastatin Calcium 80 mg 02/27/21 08:00 02/27/21 09:38 Atorvastatin Calcium 80 Mg Tablet PO 80 mg BEDTIME RAGHAVENDRA Administration Carvedilol 6.25 mg 02/27/21 21:00 Carvedilol 6.25 Mg Tablet PO BID [facility] Protocol Donepezil HCl 5 mg 12/11/20 21:00 02/26/21 21:07 Donepezil Hcl 5 Mg Tablet PO 5 mg BEDTIME RAGHAVENDRA Administration Enalapril Maleate 20 mg 01/24/21 21:00 02/27/21 07:33 Enalapril Maleate 10 Mg Tablet PO 20 mg BID RAGHAVENDRA Administration Enoxaparin Sodium 50 mg 02/27/21 16:00 02/27/21 15:51 Enoxaparin Sodium 60 Mg/0.6 Ml Syringe 1 mg/kg (50 mg) 02/28/21 16:01 50 mg SUBCUT Administration Q24H RAGHAVENDRA Furosemide 40 mg 02/27/21 09:00 02/27/21 07:32 Furosemide 40 Mg/4 Ml Vial IVPUSH 40 mg BID@0900,1800 RAGHAVENDRA Administration Protocol Glipizide 2.5 mg 02/24/21 17:00 02/27/21 16:27 Glipizide 5 Mg Tablet PO 2.5 mg BIDWM RAGHAVENDRA Administration Hydralazine HCl 100 mg 02/10/21 15:00 02/27/21 15:57 Hydralazine Hcl 50 Mg Tablet PO Not Given TID [facility] Protocol Levothyroxine Sodium 75 mcg 01/13/21 09:00 02/27/21 06:33 Levothyroxine Sodium 75 Mcg Tablet PO 75 mcg DAILY@0600 RAGHAVENDRA Administration Morphine Sulfate 4 mg 02/26/21 19:12 02/26/21 21:09 Morphine Sulfate 4 Mg/Ml Cartridge IVPUSH 4 mg ONCE PRN Administration Shortness of Breath Nifedipine 120 mg 02/13/21 09:00 02/27/21 07:33 Nifedipine Er 60 Mg Tab.Er.24 PO 120 mg DAILY RAGHAVENDRA Administration Protocol Spironolactone 25 mg 02/25/21 09:00 02/27/21 07:32 Spironolactone 25 Mg Tablet PO 25 mg DAILY RAGHAVENDRA Administration Protocol Labs CBC & Chem 7: 02/27/21 14:44 02/27/21 06:00 Labs: Laboratory Results - last 24 hr 02/26/21 02/26/21 02/26/21 19:01 19:25 19:25 WBC RBC Hgb Hct MCV MCH MCHC RDW Plt Count MPV Absolute Nucleated RBC Nucleated RBC % (auto) PT INR APTT PTT (Heparin Protocol) Sodium Potassium Chloride Carbon Dioxide Anion Gap BUN Creatinine Estim Creat Clear Calc Estimated GFR POC Glucose 182 H Random Glucose Calcium Troponin I High Sens 30.8 H* B-Natriuretic Peptide 814 H 02/26/21 02/27/21 02/27/21 19:26 06:00 06:33 WBC RBC Hgb Hct MCV MCH MCHC RDW Plt Count MPV Absolute Nucleated RBC Nucleated RBC % (auto) PT INR APTT PTT (Heparin Protocol) Sodium 142 141 Potassium 4.8 4.3 Chloride 107 105 Carbon Dioxide 22 26 Anion Gap 18 14 BUN 37 H 41 H Creatinine 1.60 H 1.48 H Estim Creat Clear Calc 21.6 23.4 Estimated GFR 31 34 POC Glucose Random Glucose 196 H D 229 H Calcium 9.7 9.0 D Troponin I High Sens 1515.2 H* D B-Natriuretic Peptide 02/27/21 02/27/21 02/27/21 07:22 08:16 08:16 WBC 16.3 H RBC 2.92 L Hgb 8.8 L Hct 27.1 L MCV 92.8 MCH 30.1 MCHC 32.5 RDW 13.7 Plt Count 290 MPV 11.1 Absolute Nucleated RBC 0.000 Nucleated RBC % (auto) 0.0 PT 12.7 INR 1.1 APTT PTT (Heparin Protocol) 31.1 L Sodium Potassium Chloride Carbon Dioxide Anion Gap BUN Creatinine Estim Creat Clear Calc Estimated GFR POC Glucose 171 H Random Glucose Calcium Troponin I High Sens B-Natriuretic Peptide 02/27/21 02/27/21 02/27/21 11:20 14:44 14:44 WBC 14.8 H RBC 2.72 L Hgb 8.3 L Hct 25.1 L MCV 92.3 MCH 30.5 MCHC 33.1 RDW 13.6 Plt Count 294 MPV 11.5 Absolute Nucleated RBC 0.000 Nucleated RBC % (auto) 0.0 PT 13.1 H INR 1.2 H APTT 31.8 PTT (Heparin Protocol) Sodium Potassium Chloride Carbon Dioxide Anion Gap BUN Creatinine Estim Creat Clear Calc Estimated GFR POC Glucose 225 H Random Glucose Calcium Troponin I High Sens B-Natriuretic Peptide TTE 02/27/21 - Normal left ventricular size and systolic function. - E/E prime ratio is >15, consistent with elevated filling pressures. - There is moderate aortic valve stenosis. The peak aortic velocity is 3.13 m/s. The aortic valve area is 1.51 cm2. - Moderate pulmonary hypertension is present. Quality Stroke Does the patient have a stroke diagnosis?: No VTE Prior VTE?: No VTE Risk Level:: Medical - moderate - high VTE Device Contraindication: N/A - Device Ordered VTE Drug Contraindication: N/A - Med Ordered Assessment and Plan (1) HTN (hypertension): Status: Acute (2) Dementia, vascular, mixed: Status: Acute (3) Communicating hydrocephalus: Status: Acute (4) Bradycardia: Status: Acute (5) Neurocognitive disorder: Status: Acute Assessment and Plan: hospital [id number] 85yo F with HTN, HLD, DM2, hypothyroidism, CAD s/p PCI. initially admitted with falls, elevated troponin; disposition complicated by cognitive impairment requiring guardianship on 02/26/21 developed hypoxia, dyspnea -> CHF exacerbation with NSTEMI # NSTEMI - Cardiology consulted. Will manage medically with 48h of enoxaparin, ASA, statin, beta-derrek. pt has prior coronary stent # acute/chronic HFpEF - continue diuresis with IV furosemide # acute hypoxic respiratory failure - supplemental O2, wean as tolerated # resistant HTN - continue nifedipine 120mg daily, hydralazine 100mg tid, enalapril 20mg bid, carvedilol 6.25mg bid, and spironolactone 25mg daily - Dopplers renal showed medical renal disease + mildly elevated velocity within the proximal left main renal artery that may represent a focal stenosis less than 60%; CTA recommended to definitely rule out renal artery stenosis, patient being followed by Nephrology they recommend to hold off on further studies at present given elevated SCr 02/24- improved- will consider CTA to definitely rule out TIMMY if SCr continues to improve - continue to monitor BP closely # CKD - continue to monitor BMP, avoid nephrotoxins # cognitive impairment - evaluated by psychiatry does need guardianship + awaiting paperwork # DM2 complicated by hypoglycemia - couple high blood sugar readings in last few days, hemoglobin A1c 6.2 01/05/21, d/c'ed metformin due to worsening renal function, added glipizide recommend strict diabetic diet # hypothyroidism - continue LT4 # C diff colitis resolved, s/p 14d of vancomycin treatment # acute grief reaction/depression - due to passing of , seems stable # chronic anemia--H/H has been stable, periodic CBC # VTE ppx - on LMWH
[2021-02-27 17:07] LABS: COVID-19 Test Negative (Negative)
[2021-02-27 21:44] LABS: Glucose, Whole Blood 271 mg/dL (60-115)
--- NOTE | 2021-02-27 22:59 | PM.PNNEP ---
Subjective Subjective Date of Service: 02/27/21 Interval history: less sob Physical Exam Vital Signs: Vital Signs: Last Vital Signs Temp 98.3 F 02/27/21 15:49 Pulse 58 02/27/21 20:18 Resp 19 02/27/21 15:49 BP 98/64 02/27/21 20:18 Pulse Ox 92 02/27/21 17:36 Body Mass Index 20.1 Const: General: cooperative, healthy appearing, comfortable, no acute distress, well developed, alert and awake; No acute distress Nutritional Appearance: average body habitus and well nourished Orientation/consciousness: oriented to person, oriented to place and patient oriented x3 Limitations: no limitations and other limitations (Question if the patient remembers events correctly) HENMT: Head: Yes normal to inspection, Yes normocephalic and Yes atraumatic Ears: hearing grossly normal bilaterally and external ears normal General nose exam: Normal external nose present Face and sinus: Yes normal facial exam Mouth: Normal oral and palatal mucosa present and oropharynx normal Throat: Yes posterior oropharynx normal Eyes: General: appearance normal, both eyes and all related structures Visual Adam: normal visual adam by confrontation Alignment and Position: alignment normal Periorbital: periorbital findings normal Eyelids: Yes eyelids normal Conjunctivae: conjunctivae normal Sclerae: sclerae normal Corneas: corneas normal Pupils: Equal, round and reactive pupils present and Pupil accommodation reflex normal EOM: EOMs intact bilaterally Direct Ophthalmoscopy: normal light reflex Neck: Neck: Yes normal visual inspection, Yes full ROM, Yes no lymphadenopathy, Yes no meningeal signs, Yes trachea midline and Yes supple Thyroid: Thyroid normal Carotids: normal carotid upstroke and bounding pulses Chest: Chest palpation & inspection: normal inspection of the chest and normal palpation of entire chest wall Resp: Effort & Inspection: normal respiratory effort and able to speak in complete sentences Auscultation: clear to auscultation bilaterally, no crackles, no wheezes and diminished lung sounds Cardio: Jugular venous distension: no JVD Palpation: normal PMI Rate: regular rate Rhythm: regular rhythm Heart sounds: S1 normal heart sound present, S2 normal heart sound present, no gallops, Murmur heart sound present systolic early, III/ and at the right sternal border and no rubs Peripheral pulses: Peripheral pulses 2+ throughout GI: Inspection: Yes normal to inspection Palpation (GI): Soft to palpation, nontender, no guarding, not rigid and No hepatosplenomegaly present Percussion: Yes normal to percussion Auscultation: normal bowel sounds Rectal Exam - Female: deferred : General: Yes no CVA tenderness Back/Spine/Pelvis: Back: no CVA tenderness Cervical Spine: normal cervical lordosis and cervical ROM normal Thoracic/Lumbar Spine: thoracic and lumbar spine normal to inspection Skin: General skin exam: no rashes or lesions noted Lesions: no lesions Rashes: no rashes Wounds: no wounds Neuro: General: oriented to person, oriented to place, patient oriented x3, tone normal, moves all extremities, Normal light touch and pain sensation, no meningeal signs, no focal motor deficits, CN's II-XI intact bilaterally, normal sensation to monofilament and deep tendon reflexes 2+ bilaterally Cranial nerves: Yes CN's II-XII intact bilaterally, Yes Equal, round and reactive pupils present, Yes Bilaterally intact EOM present, Yes Nystagmus not present, Yes Normal facial strength present, Yes Midline tongue present, Yes Normal gag reflex present, Yes Symmetric palate elevation present, Yes Normal hearing present and Yes Ability to bilaterally rotate head present Cognition (Neuro): normal cognition and abnormal cognition Speech: Abnormal speech present and Other speech findings present (Neuro) Motor exam (neuro): 5/5 motor strength present throughout, Pronator motor function not present, no tremor noted, no asterixis, Motor fasciculations not present, Normal motor muscle tone present throughout and Motor abnormalities not present Sensory Exam: Bilaterally intact graphesthesia and Sensory deficit (Neuro) Deep tendon reflexes (DTR's): Right triceps reflex intensity grade: 2+, Left triceps reflex intensity grade: 2+, Rt Biceps (C5, C6): 2+, Left biceps reflex intensity grade: 2+, Right brachioradialis reflex intensity grade: 2+, Left brachioradialis reflex intensity grade: 2+, Right patellar reflex intensity grade: 2+, Left patellar reflex intensity grade: 2+, Right ankle reflex intensity grade: 2+ and Left ankle reflex intensity grade: 2+ Plantar Reflex Responses: downgoing: right, left and bilateral Coordination: [id number] test normal and [id number] test normal Pupils: Normal pupillary reactivity/response: bilateral Extrem: General: Yes normal to inspection, Yes full ROM, Yes normal exam except as noted, Yes no clubbing, cyanosis or edema and Yes no pedal edema Psych: Appearance: grossly normal and well kempt Mental Status: mental status grossly normal Speech and movement: Normal speech and movement present and Clear speech present Affect: normal affect Attitude: cooperative Thought process: Normal thought process present Thought content: Normal thought content present Insight: Other insight findings present (Psych) (Patient may not be recalling events correctly based discussion with [facility]) Objective Data Labs CBC & Chem 7: 02/27/21 14:44 02/27/21 06:00 Labs: Laboratory Results - last 24 hr 02/27/21 02/27/21 02/27/21 06:00 06:33 07:22 WBC RBC Hgb Hct MCV MCH MCHC RDW Plt Count MPV Absolute Nucleated RBC Nucleated RBC % (auto) PT INR APTT PTT (Heparin Protocol) Sodium 141 Potassium 4.3 Chloride 105 Carbon Dioxide 26 Anion Gap 14 BUN 41 H Creatinine 1.48 H Estim Creat Clear Calc 23.4 Estimated GFR 34 POC Glucose 171 H Random Glucose 229 H Calcium 9.0 D Troponin I High Sens 1515.2 H* D COVID-19 (MILA) [employer] 02/27/21 02/27/21 02/27/21 08:16 08:16 11:20 WBC 16.3 H RBC 2.92 L Hgb 8.8 L Hct 27.1 L MCV 92.8 MCH 30.1 MCHC 32.5 RDW 13.7 Plt Count 290 MPV 11.1 Absolute Nucleated RBC 0.000 Nucleated RBC % (auto) 0.0 PT 12.7 INR 1.1 APTT PTT (Heparin Protocol) 31.1 L Sodium Potassium Chloride Carbon Dioxide Anion Gap BUN Creatinine Estim Creat Clear Calc Estimated GFR POC Glucose 225 H Random Glucose Calcium Troponin I High Sens COVID-19 (MILA) [employer] 02/27/21 02/27/21 02/27/21 14:44 14:44 16:34 WBC 14.8 H RBC 2.72 L Hgb 8.3 L Hct 25.1 L MCV 92.3 MCH 30.5 MCHC 33.1 RDW 13.6 Plt Count 294 MPV 11.5 Absolute Nucleated RBC 0.000 Nucleated RBC % (auto) 0.0 PT 13.1 H INR 1.2 H APTT 31.8 PTT (Heparin Protocol) Sodium Potassium Chloride Carbon Dioxide Anion Gap BUN Creatinine Estim Creat Clear Calc Estimated GFR POC Glucose Random Glucose Calcium Troponin I High Sens COVID-19 (MILA) Negative COVID-19 Clin Com See Note 02/27/21 21:35 WBC RBC Hgb Hct MCV MCH MCHC RDW Plt Count MPV Absolute Nucleated RBC Nucleated RBC % (auto) PT INR APTT PTT (Heparin Protocol) Sodium Potassium Chloride Carbon Dioxide Anion Gap BUN Creatinine Estim Creat Clear Calc Estimated GFR POC Glucose 271 H Random Glucose Calcium Troponin I High Sens COVID-19 (MILA) COVID-19 Clin Com Microbiology Microbiology Results: Microbiology 11/24/20 08:18 Stool Stool Culture - Final 09/21/20 Unknown Urine clean catch - Clean Catch Midstream Urine Culture - Final No growth. Assessment & Plan Assessment and plan (1) HTN (hypertension): Status: Acute (2) Dementia, vascular, mixed: Status: Acute (3) Communicating hydrocephalus: Status: Acute (4) Bradycardia: Status: Acute (5) Neurocognitive disorder: Status: Acute Assessment and Plan: hospital d#[id number] 85yo F with HTN, HLD, DM2, hypothyroidism, CAD s/p PCI. initially admitted with falls, elevated troponin; disposition complicated by cognitive impairment requiring guardianship on 02/26/21 developed hypoxia, dyspnea -> CHF exacerbation with NSTEMI # NSTEMI - Cardiology consulted. Will manage medically with 48h of enoxaparin, ASA, statin, beta-derrek. pt has prior coronary stent # acute/chronic HFpEF - continue diuresis with IV furosemide # acute hypoxic respiratory failure - supplemental O2, wean as tolerated # resistant HTN - continue nifedipine 120mg daily, hydralazine 100mg tid, enalapril 20mg bid, carvedilol 6.25mg bid, and spironolactone 25mg daily - Dopplers renal showed medical renal disease + mildly elevated velocity within the proximal left main renal artery that may represent a focal stenosis less than 60%; CTA recommended to definitely rule out renal artery stenosis, patient being followed by Nephrology they recommend to hold off on further studies at present given elevated SCr 02/24- improved- will consider CTA to definitely rule out TIMMY if SCr continues to improve - continue to monitor BP closely continue spironolactone would d/c hydralazine # CKD - continue to monitor BMP, avoid nephrotoxins stable creat Procedures Date of Service Date of Service: 02/27/21 Progress Note: Quality Stroke Does the patient have a stroke diagnosis?: No
[2021-02-28] VITALS: BP 150/60; PULSE 60; RESP 16; TEMP 36.9; O2SAT 94
[2021-02-28] MEDS: Levothyroxine Sodium 75 MCG TABLET PO (05:54)
[2021-02-28 06:15] LABS: Hematocrit 24.1 % (37-47); Hemoglobin 7.9 g/dl (12.0-16.0); Mean Corpuscular HGB Conc 32.8 g/dl (31.0-35.0); Mean Corpuscular Hemoglobin 30.4 pg (27.0-33.0); Mean Corpuscular Volume 92.7 fL (80-98); Mean Platelet Volume 11.4 fL (9.4-12.3); Platelet Count 272 X10*3/uL (160-400); Red Cell Distribution Width 13.7 % (11.0-16.0); White Blood Count 8.8 X10*3/uL (4.8-10.8)
[2021-02-28 06:45] LABS: B Type Natriuretic Peptide 546 pg/mL (<100)
[2021-02-28 07:03] LABS: Anion Gap 15 (12-20); Blood Urea Nitrogen 55 mg/dL (9-16); Calcium 8.7 mg/dL (8.4-10.2); Carbon Dioxide 27 mmol/L (22-29); Chloride 102 mmol/L (96-108); Creatinine Clr Calc Pharmacy 17.5; Estimated Glomerular Filt Rate 24; Glucose Random 83 mg/dL (60-115); Magnesium 1.7 mg/dL (1.6-2.6); Sodium 140 mmol/L (135-145)
[2021-02-28 07:24] VITALS: BP 140/69; PULSE 57; RESP 16; TEMP 36.8; O2SAT 95
--- NOTE | 2021-02-28 07:44 | PM.PNNEP ---
Subjective Subjective Date of Service: 02/28/21 Interval history: less sob Physical Exam Vital Signs: Vital Signs: Last Vital Signs Temp 98.3 F 02/28/21 07:24 Pulse 57 02/28/21 07:24 Resp 16 02/28/21 07:24 BP 140/69 H 02/28/21 07:24 Pulse Ox 95 02/28/21 07:24 Body Mass Index 20.1 Const: General: cooperative, healthy appearing, comfortable, no acute distress, well developed, alert and awake; No acute distress Nutritional Appearance: average body habitus and well nourished Orientation/consciousness: oriented to person, oriented to place and patient oriented x3 Limitations: no limitations and other limitations (Question if the patient remembers events correctly) HENMT: Head: Yes normal to inspection, Yes normocephalic and Yes atraumatic Ears: hearing grossly normal bilaterally and external ears normal General nose exam: Normal external nose present Face and sinus: Yes normal facial exam Mouth: Normal oral and palatal mucosa present and oropharynx normal Throat: Yes posterior oropharynx normal Eyes: General: appearance normal, both eyes and all related structures Visual Adam: normal visual adam by confrontation Alignment and Position: alignment normal Periorbital: periorbital findings normal Eyelids: Yes eyelids normal Conjunctivae: conjunctivae normal Sclerae: sclerae normal Corneas: corneas normal Pupils: Equal, round and reactive pupils present and Pupil accommodation reflex normal EOM: EOMs intact bilaterally Direct Ophthalmoscopy: normal light reflex Neck: Neck: Yes normal visual inspection, Yes full ROM, Yes no lymphadenopathy, Yes no meningeal signs, Yes trachea midline and Yes supple Thyroid: Thyroid normal Carotids: normal carotid upstroke and bounding pulses Chest: Chest palpation & inspection: normal inspection of the chest and normal palpation of entire chest wall Resp: Effort & Inspection: normal respiratory effort and able to speak in complete sentences Auscultation: clear to auscultation bilaterally, no crackles, no wheezes and diminished lung sounds Cardio: Jugular venous distension: no JVD Palpation: normal PMI Rate: regular rate Rhythm: regular rhythm Heart sounds: S1 normal heart sound present, S2 normal heart sound present, no gallops, Murmur heart sound present systolic early, III/ and at the right sternal border and no rubs Peripheral pulses: Peripheral pulses 2+ throughout GI: Inspection: Yes normal to inspection Palpation (GI): Soft to palpation, nontender, no guarding, not rigid and No hepatosplenomegaly present Percussion: Yes normal to percussion Auscultation: normal bowel sounds Rectal Exam - Female: deferred : General: Yes no CVA tenderness Back/Spine/Pelvis: Back: no CVA tenderness Cervical Spine: normal cervical lordosis and cervical ROM normal Thoracic/Lumbar Spine: thoracic and lumbar spine normal to inspection Skin: General skin exam: no rashes or lesions noted Lesions: no lesions Rashes: no rashes Wounds: no wounds Neuro: General: oriented to person, oriented to place, patient oriented x3, tone normal, moves all extremities, Normal light touch and pain sensation, no meningeal signs, no focal motor deficits, CN's II-XI intact bilaterally, normal sensation to monofilament and deep tendon reflexes 2+ bilaterally Cranial nerves: Yes CN's II-XII intact bilaterally, Yes Equal, round and reactive pupils present, Yes Bilaterally intact EOM present, Yes Nystagmus not present, Yes Normal facial strength present, Yes Midline tongue present, Yes Normal gag reflex present, Yes Symmetric palate elevation present, Yes Normal hearing present and Yes Ability to bilaterally rotate head present Cognition (Neuro): normal cognition and abnormal cognition Speech: Abnormal speech present and Other speech findings present (Neuro) Motor exam (neuro): 5/5 motor strength present throughout, Pronator motor function not present, no tremor noted, no asterixis, Motor fasciculations not present, Normal motor muscle tone present throughout and Motor abnormalities not present Sensory Exam: Bilaterally intact graphesthesia and Sensory deficit (Neuro) Deep tendon reflexes (DTR's): Right triceps reflex intensity grade: 2+, Left triceps reflex intensity grade: 2+, Rt Biceps (C5, C6): 2+, Left biceps reflex intensity grade: 2+, Right brachioradialis reflex intensity grade: 2+, Left brachioradialis reflex intensity grade: 2+, Right patellar reflex intensity grade: 2+, Left patellar reflex intensity grade: 2+, Right ankle reflex intensity grade: 2+ and Left ankle reflex intensity grade: 2+ Plantar Reflex Responses: downgoing: right, left and bilateral Coordination: [id number] test normal and [id number] test normal Pupils: Normal pupillary reactivity/response: bilateral Extrem: General: Yes normal to inspection, Yes full ROM, Yes normal exam except as noted, Yes no clubbing, cyanosis or edema and Yes no pedal edema Psych: Appearance: grossly normal and well kempt Mental Status: mental status grossly normal Speech and movement: Normal speech and movement present and Clear speech present Affect: normal affect Attitude: cooperative Thought process: Normal thought process present Thought content: Normal thought content present Insight: Other insight findings present (Psych) (Patient may not be recalling events correctly based discussion with [facility]) Objective Data Labs CBC & Chem 7: 02/28/21 05:45 02/28/21 05:45 Labs: Laboratory Results - last 24 hr 02/27/21 02/27/21 02/27/21 06:33 08:16 08:16 WBC 16.3 H RBC 2.92 L Hgb 8.8 L Hct 27.1 L MCV 92.8 MCH 30.1 MCHC 32.5 RDW 13.7 Plt Count 290 MPV 11.1 Absolute Nucleated RBC 0.000 Nucleated RBC % (auto) 0.0 PT 12.7 INR 1.1 APTT PTT (Heparin Protocol) 31.1 L Sodium Potassium Chloride Carbon Dioxide Anion Gap BUN Creatinine Estim Creat Clear Calc Estimated GFR POC Glucose Random Glucose Calcium Magnesium Troponin I High Sens 1515.2 H* D B-Natriuretic Peptide COVID-19 (MILA) COVID-19 Neogrowth 02/27/21 02/27/21 02/27/21 11:20 14:44 14:44 WBC 14.8 H RBC 2.72 L Hgb 8.3 L Hct 25.1 L MCV 92.3 MCH 30.5 MCHC 33.1 RDW 13.6 Plt Count 294 MPV 11.5 Absolute Nucleated RBC 0.000 Nucleated RBC % (auto) 0.0 PT 13.1 H INR 1.2 H APTT 31.8 PTT (Heparin Protocol) Sodium Potassium Chloride Carbon Dioxide Anion Gap BUN Creatinine Estim Creat Clear Calc Estimated GFR POC Glucose 225 H Random Glucose Calcium Magnesium Troponin I High Sens B-Natriuretic Peptide COVID-19 (MILA) COVID-19 Neogrowth 02/27/21 02/27/21 02/28/21 16:34 21:35 05:45 WBC 8.8 RBC 2.60 L Hgb 7.9 L Hct 24.1 L MCV 92.7 MCH 30.4 MCHC 32.8 RDW 13.7 Plt Count 272 MPV 11.4 Absolute Nucleated RBC 0.000 Nucleated RBC % (auto) 0.0 PT INR APTT PTT (Heparin Protocol) Sodium Potassium Chloride Carbon Dioxide Anion Gap BUN Creatinine Estim Creat Clear Calc Estimated GFR POC Glucose 271 H Random Glucose Calcium Magnesium Troponin I High Sens B-Natriuretic Peptide COVID-19 (MILA) Negative COVID-19 Clin Com See Note 02/28/21 02/28/21 05:45 05:45 WBC RBC Hgb Hct MCV MCH MCHC RDW Plt Count MPV Absolute Nucleated RBC Nucleated RBC % (auto) PT INR APTT PTT (Heparin Protocol) Sodium 140 Potassium 4.0 Chloride 102 Carbon Dioxide 27 Anion Gap 15 BUN 55 H Creatinine 1.97 H Estim Creat Clear Calc 17.5 Estimated GFR 24 POC Glucose Random Glucose 83 D Calcium 8.7 Magnesium 1.7 Troponin I High Sens B-Natriuretic Peptide 546 H COVID-19 (MILA) COVID-19 Clin Com Microbiology Microbiology Results: Microbiology 11/24/20 08:18 Stool Stool Culture - Final 09/21/20 Unknown Urine clean catch - Clean Catch Midstream Urine Culture - Final No growth. Assessment & Plan Assessment and plan (1) HTN (hypertension): Status: Acute (2) Dementia, vascular, mixed: Status: Acute (3) Communicating hydrocephalus: Status: Acute (4) Bradycardia: Status: Acute (5) Neurocognitive disorder: Status: Acute Assessment and Plan: hospital d#[id number] 85yo F with HTN, HLD, DM2, hypothyroidism, CAD s/p PCI. initially admitted with falls, elevated troponin; disposition complicated by cognitive impairment requiring guardianship on 02/26/21 developed hypoxia, dyspnea -> CHF exacerbation with NSTEMI # NSTEMI - Cardiology consulted. Will manage medically with 48h of enoxaparin, ASA, statin, beta-derrek. pt has prior coronary stent # acute/chronic HFpEF - continue diuresis with IV furosemide # acute hypoxic respiratory failure - supplemental O2, wean as tolerated # resistant HTN - continue nifedipine 120mg daily, hydralazine 100mg tid, enalapril 20mg bid, carvedilol 6.25mg bid, and spironolactone 25mg daily - Dopplers renal showed medical renal disease + mildly elevated velocity within the proximal left main renal artery that may represent a focal stenosis less than 60%; CTA recommended to definitely rule out renal artery stenosis, patient being followed by Nephrology they recommend to hold off on further studies at present given elevated SCr 02/24- improved- will consider CTA to definitely rule out TIMMY if SCr continues to improve - continue to monitor BP closely continue spironolactone would d/c hydralazine # CKD - continue to monitor BMP, avoid nephrotoxins creat creeping up may need diuretic holiday Procedures Date of Service Date of Service: 02/28/21 Progress Note: Quality Stroke Does the patient have a stroke diagnosis?: No
[2021-02-28 07:51] LABS: Glucose, Whole Blood 81 mg/dL (60-115)
[2021-02-28 08:10] LABS: Iron 13 mcg/dL (30-160); Percent Iron Saturation 5 % (15-50); Total Iron Binding Capacity 262 mcg/dL (228-428); Unsaturated Iron Binding 249 ug/dL
[2021-02-28] MEDS: Aspirin 81 MG TAB.CHEW PO (08:20)
[2021-02-28] MEDS: glipiZIDE 5 MG TABLET 2.5 MG PO ×2 (08:20→16:29)
[2021-02-28] MEDS: Enalapril Maleate 10 MG TABLET 20 MG PO ×2 (08:21→20:08)
[2021-02-28] MEDS: NIFEdipine ER 60 MG TAB.ER.24 120 MG PO (08:21)
[2021-02-28] MEDS: carvediloL 6.25 MG TABLET PO ×2 (08:21→20:08)
[2021-02-28] MEDS: Spironolactone 25 MG TABLET PO (08:21)
[2021-02-28 08:31] LABS: Ferritin 65 ng/mL (10-250)
[2021-02-28] MEDS: Ferrous Sulfate 324 MG TABLET.DR PO (08:45)
--- NOTE | 2021-02-28 09:06 | P.PNCA_ITS ---
Subjective Subjective Date of Service: 02/28/21 Interval history: Feeling better. No chest pain or shortness of breath. Euvolemic. Physical Exam Vital Signs: Last Vital Signs Temp 98.3 F 02/28/21 07:24 Pulse 57 02/28/21 07:24 Resp 16 02/28/21 07:24 BP 140/69 H 02/28/21 07:24 Pulse Ox 95 02/28/21 07:24 Body Mass Index 20.1 GENERAL APPEARANCE: in no acute distress, pleasant. NECK: no carotid bruit, no JVD. SKIN: no suspicious lesions, warm and dry. HEART: no murmurs, regular rate and rhythm. LUNGS: Clear to auscultation. ABDOMEN: soft, nontender. EXTREMITIES: no edema. PERIPHERAL PULSES: equal. NEUROLOGIC: No gross deficits, AAO X 3 Results Labs and Meds Result diagrams: 02/28/21 05:45 02/28/21 05:45 Lab results: Laboratory Results - last 24 hr 02/27/21 02/27/21 02/27/21 11:20 14:44 14:44 WBC 14.8 H RBC 2.72 L Hgb 8.3 L Hct 25.1 L MCV 92.3 MCH 30.5 MCHC 33.1 RDW 13.6 Plt Count 294 MPV 11.5 Absolute Nucleated RBC 0.000 Nucleated RBC % (auto) 0.0 PT 13.1 H INR 1.2 H APTT 31.8 Sodium Potassium Chloride Carbon Dioxide Anion Gap BUN Creatinine Estim Creat Clear Calc Estimated GFR POC Glucose 225 H Random Glucose Calcium Magnesium Iron TIBC % Saturation Unsat Iron Binding Ferritin B-Natriuretic Peptide COVID-19 (MILA) COVID-19 Clin Com 02/27/21 02/27/21 02/28/21 16:34 21:35 05:45 WBC 8.8 RBC 2.60 L Hgb 7.9 L Hct 24.1 L MCV 92.7 MCH 30.4 MCHC 32.8 RDW 13.7 Plt Count 272 MPV 11.4 Absolute Nucleated RBC 0.000 Nucleated RBC % (auto) 0.0 PT INR APTT Sodium Potassium Chloride Carbon Dioxide Anion Gap BUN Creatinine Estim Creat Clear Calc Estimated GFR POC Glucose 271 H Random Glucose Calcium Magnesium Iron TIBC % Saturation Unsat Iron Binding Ferritin B-Natriuretic Peptide COVID-19 (MILA) Negative COVID-19 Clin Com See Note 02/28/21 02/28/21 02/28/21 05:45 05:45 07:22 WBC RBC Hgb Hct MCV MCH MCHC RDW Plt Count MPV Absolute Nucleated RBC Nucleated RBC % (auto) PT INR APTT Sodium 140 Potassium 4.0 Chloride 102 Carbon Dioxide 27 Anion Gap 15 BUN 55 H Creatinine 1.97 H Estim Creat Clear Calc 17.5 Estimated GFR 24 POC Glucose 81 Random Glucose 83 D Calcium 8.7 Magnesium 1.7 Iron 13 L TIBC 262 % Saturation 5 L Unsat Iron Binding 249 Ferritin 65 B-Natriuretic Peptide 546 H COVID-19 (MILA) COVID-19 Clin Com Progress Note: A&P Assessment and plan (1) CHF (congestive heart failure): Status: Acute (2) HTN (hypertension): Status: Acute (3) Elevated troponin: Status: Acute Assessment and Plan: 85-year-old female with elevated blood pressures and congestive heart failure. Echocardiography did not show any wall motion abnormality. I think likely cause for elevated troponins was congestive heart failure hypoxia. Previous well controlled now. Can stop the enoxaparin. I think this is likely a type 2 event. Signing off. Thank you for allowing me to participate in the care of your patient. Please feel free to contact me if you have any questions. Fall Risk Details Current Medications: Current Medications Generic Name Dose Route Start Last Admin Trade Name Freq PRN Reason Stop Dose Admin Aspirin 81 mg 02/28/21 09:00 02/28/21 08:20 Aspirin 81 Mg Tab.Chew PO 81 mg DAILY RAGHAVENDRA Administration Atorvastatin Calcium 80 mg 02/27/21 08:00 02/27/21 20:16 Atorvastatin Calcium 80 Mg Tablet PO 80 mg BEDTIME RAGHAVENDRA Administration Carvedilol 6.25 mg 02/27/21 21:00 02/28/21 08:21 Carvedilol 6.25 Mg Tablet PO 6.25 mg BID RAGHAVENDRA Administration Protocol Enalapril Maleate 20 mg 01/24/21 21:00 02/28/21 08:21 Enalapril Maleate 10 Mg Tablet PO 20 mg BID RAGHAVENDRA Administration Enoxaparin Sodium 50 mg 02/27/21 16:00 02/27/21 15:51 Enoxaparin Sodium 60 Mg/0.6 Ml Syringe 1 mg/kg (50 mg) 02/28/21 16:01 50 mg SUBCUT Administration Q24H [facility]–1983 Ferrous Sulfate 324 mg 02/28/21 09:00 02/28/21 08:45 Ferrous Sulfate 324 Mg Tablet.Dr PO 324 mg DAILY RAGHAVENDRA Administration Glipizide 2.5 mg 02/24/21 17:00 02/28/21 08:20 Glipizide 5 Mg Tablet PO 2.5 mg BIDWM RAGHAVENDRA Administration Levothyroxine Sodium 75 mcg 01/13/21 09:00 02/28/21 05:54 Levothyroxine Sodium 75 Mcg Tablet PO 75 mcg DAILY@0600 RAGHAVENDRA Administration Morphine Sulfate 4 mg 02/26/21 19:12 02/26/21 21:09 Morphine Sulfate 4 Mg/Ml Cartridge IVPUSH 4 mg ONCE PRN Administration Shortness of Breath Nifedipine 120 mg 02/13/21 09:00 02/28/21 08:21 Nifedipine Er 60 Mg Tab.Er.24 PO 120 mg DAILY RAGHAVENDRA Administration Protocol Spironolactone 25 mg 02/25/21 09:00 02/28/21 08:21 Spironolactone 25 Mg Tablet PO 25 mg DAILY RAGHAVENDRA Administration Protocol Time Spent With Patient Time: Total time spent is greater than 50% in coordination of care (as documented) at patient's floor/unit and/or counseling patient: Time with patient: 15 - 24 minutes Progress Note: Quality Stroke Does the patient have a stroke diagnosis?: No Procedures Date of Service Date of Service: 02/28/21
[2021-02-28 11:45] VITALS: BP 125/50; PULSE 51; RESP 16; TEMP 36.3; O2SAT 95
--- NOTE | 2021-02-28 13:00 | P.PNIM_ITS ---
Subjective Subjective Date of Service: 02/28/21 Interval History: no chest pain dyspnea resolved weaned off O2 Physical Exam Vital Signs: Vital Signs: Last Vital Signs Temp 97.3 F 02/28/21 11:45 Pulse 51 02/28/21 11:45 Resp 16 02/28/21 11:45 BP 125/50 L 02/28/21 11:45 Pulse Ox 95 02/28/21 11:45 Body Mass Index 20.1 Gen: in no acute distress HEENT: sclera anicteric, moist mucus membranes Neck: supple Lungs: clear Heart: regular rate and rhythm, no murmurs, no JVD Abd: soft, non-tender, non-distended Ext: no edema Skin: warm/well-perfused Neuro: alert and oriented x3, no focal findings Psych: appropriate affect Objective Data Current Medications Generic Name Dose Route Start Last Admin Trade Name Freq PRN Reason Stop Dose Admin Aspirin 81 mg 02/28/21 09:00 02/28/21 08:20 Aspirin 81 Mg Tab.Chew PO 81 mg DAILY RAGHAVENDRA Administration Atorvastatin Calcium 80 mg 02/27/21 08:00 02/27/21 20:16 Atorvastatin Calcium 80 Mg Tablet PO 80 mg BEDTIME RAGHAVENDRA Administration Carvedilol 6.25 mg 02/27/21 21:00 02/28/21 08:21 Carvedilol 6.25 Mg Tablet PO 6.25 mg BID RAGHAVENDRA Administration Protocol Enalapril Maleate 20 mg 01/24/21 21:00 02/28/21 08:21 Enalapril Maleate 10 Mg Tablet PO 20 mg BID RAGHAVENDRA Administration Ferrous Sulfate 324 mg 02/28/21 09:00 02/28/21 08:45 Ferrous Sulfate 324 Mg Tablet.Dr PO 324 mg DAILY RAGHAVENDRA Administration Glipizide 2.5 mg 02/24/21 17:00 02/28/21 08:20 Glipizide 5 Mg Tablet PO 2.5 mg BIDWM RAGHAVENDRA Administration Levothyroxine Sodium 75 mcg 01/13/21 09:00 02/28/21 05:54 Levothyroxine Sodium 75 Mcg Tablet PO 75 mcg DAILY@0600 RAGHAVENDRA Administration Morphine Sulfate 4 mg 02/26/21 19:12 02/26/21 21:09 Morphine Sulfate 4 Mg/Ml Cartridge IVPUSH 4 mg ONCE PRN Administration Shortness of Breath Nifedipine 120 mg 02/13/21 09:00 02/28/21 08:21 Nifedipine Er 60 Mg Tab.Er.24 PO 120 mg DAILY RAGHAVENDRA Administration Protocol Spironolactone 25 mg 02/25/21 09:00 02/28/21 08:21 Spironolactone 25 Mg Tablet PO 25 mg DAILY RAGHAVENDRA Administration Protocol Labs CBC & Chem 7: 02/28/21 05:45 02/28/21 05:45 Labs: Laboratory Results - last 24 hr 02/27/21 02/27/21 02/27/21 14:44 14:44 16:34 WBC 14.8 H RBC 2.72 L Hgb 8.3 L Hct 25.1 L MCV 92.3 MCH 30.5 MCHC 33.1 RDW 13.6 Plt Count 294 MPV 11.5 Absolute Nucleated RBC 0.000 Nucleated RBC % (auto) 0.0 PT 13.1 H INR 1.2 H APTT 31.8 Sodium Potassium Chloride Carbon Dioxide Anion Gap BUN Creatinine Estim Creat Clear Calc Estimated GFR POC Glucose Random Glucose Calcium Magnesium Iron TIBC % Saturation Unsat Iron Binding Ferritin B-Natriuretic Peptide COVID-19 (MLIA) Negative COVID-19 Clin Com See Note 02/27/21 02/28/21 02/28/21 21:35 05:45 05:45 WBC 8.8 RBC 2.60 L Hgb 7.9 L Hct 24.1 L MCV 92.7 MCH 30.4 MCHC 32.8 RDW 13.7 Plt Count 272 MPV 11.4 Absolute Nucleated RBC 0.000 Nucleated RBC % (auto) 0.0 PT INR APTT Sodium 140 Potassium 4.0 Chloride 102 Carbon Dioxide 27 Anion Gap 15 BUN 55 H Creatinine 1.97 H Estim Creat Clear Calc 17.5 Estimated GFR 24 POC Glucose 271 H Random Glucose 83 D Calcium 8.7 Magnesium 1.7 Iron 13 L TIBC 262 % Saturation 5 L Unsat Iron Binding 249 Ferritin 65 B-Natriuretic Peptide COVID-19 ([facility]) [employer] 02/28/21 02/28/21 05:45 07:22 WBC RBC Hgb Hct MCV MCH MCHC RDW Plt Count MPV Absolute Nucleated RBC Nucleated RBC % (auto) PT INR APTT Sodium Potassium Chloride Carbon Dioxide Anion Gap BUN Creatinine Estim Creat Clear Calc Estimated GFR POC Glucose 81 Random Glucose Calcium Magnesium Iron TIBC % Saturation Unsat Iron Binding Ferritin B-Natriuretic Peptide 546 H COVID-19 ([facility]ILA) COVID-19 Clin Com Quality Stroke Does the patient have a stroke diagnosis?: No VTE Prior VTE?: No VTE Risk Level:: Medical - moderate - high VTE Device Contraindication: N/A - Device Ordered VTE Drug Contraindication: N/A - Med Ordered Assessment and Plan (1) HTN (hypertension): Status: Acute (2) Dementia, vascular, mixed: Status: Acute (3) Communicating hydrocephalus: Status: Acute (4) Bradycardia: Status: Acute (5) Neurocognitive disorder: Status: Acute Assessment and Plan: hospital d#[id number] 85yo F with HTN, HLD, DM2, hypothyroidism, CAD s/p PCI. 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, replete Fe, check FOBT, monitor H+H # resistant HTN - continue nifedipine 120mg daily, enalapril 20mg bid, carvedilol 6.25mg bid, and spironolactone 25mg daily; d/c'ed hydralazine - Dopplers renal showed medical renal disease + mildly elevated velocity within the proximal left main renal artery that may represent a focal stenosis less than 60%; CTA recommended to definitely rule out renal artery stenosis, patient being followed by Nephrology they recommend to hold off on further studies at present given elevated SCr 02/24- improved- will consider CTA to definitely rule out TIMMY if SCr continues to improve - continue to monitor BP closely # cognitive impairment - evaluated by psychiatry does need guardianship + awaiting paperwork # DM2 complicated by hypoglycemia - d/c'ed metformin due to worsening renal function, added glipizide, recommend strict diabetic diet # hypothyroidism - continue LT4 # C diff colitis - resolved, s/p 14d of vancomycin treatment # acute grief reaction/depression - due to passing of , seems stable # VTE ppx - on LMWH
[2021-02-28 15:32] VITALS: BP 106/60; PULSE 57; RESP 17; TEMP 36.8; O2SAT 97
[2021-02-28 20:08] VITALS: BP 135/77; PULSE 62
[2021-02-28] MEDS: Atorvastatin Calcium 80 MG TABLET PO (20:08)
[2021-03-01] VITALS: BP 126/68; PULSE 54; RESP 16; TEMP 36.1
[2021-03-01] MEDS: Levothyroxine Sodium 75 MCG TABLET PO (06:02)
[2021-03-01 06:46] LABS: Hematocrit 23.5 % (37-47); Hemoglobin 7.7 g/dl (12.0-16.0); Mean Corpuscular HGB Conc 32.8 g/dl (31.0-35.0); Mean Corpuscular Volume 91.4 fL (80-98); Mean Platelet Volume 11.4 fL (9.4-12.3); Platelet Count 303 X10*3/uL (160-400); Red Blood Count 2.57 X10*6/uL (4.20-5.50); White Blood Count 7.1 X10*3/uL (4.8-10.8)
[2021-03-01 06:59] LABS: Anion Gap 13 (12-20); Blood Urea Nitrogen 66 mg/dL (9-16); Calcium 8.8 mg/dL (8.4-10.2); Carbon Dioxide 26 mmol/L (22-29); Chloride 101 mmol/L (96-108); Creatinine Clr Calc Pharmacy 15.6; Estimated Glomerular Filt Rate 21; Glucose Random 297 mg/dL (60-115); Potassium 3.9 mmol/L (3.3-5.1); Sodium 136 mmol/L (135-145)
[2021-03-01 07:09] VITALS: BP 135/60; PULSE 54; RESP 18; TEMP 36.8; O2SAT 95
[2021-03-01 07:11] LABS: B Type Natriuretic Peptide 422 pg/mL (<100)
[2021-03-01] MEDS: Ferrous Sulfate 324 MG TABLET.DR PO (07:33)
[2021-03-01] MEDS: Spironolactone 25 MG TABLET PO ×2 (07:33→16:27)
[2021-03-01] MEDS: Enalapril Maleate 10 MG TABLET 20 MG PO (07:33)
[2021-03-01] MEDS: NIFEdipine ER 60 MG TAB.ER.24 120 MG PO (07:33)
[2021-03-01] MEDS: Aspirin 81 MG TAB.CHEW PO (07:33)
[2021-03-01] MEDS: carvediloL 6.25 MG TABLET PO ×2 (07:34→21:28)
[2021-03-01] MEDS: glipiZIDE 5 MG TABLET 2.5 MG PO ×2 (07:34→16:27)
[2021-03-01 07:36] LABS: Glucose, Whole Blood 276 mg/dL (60-115)
--- NOTE | 2021-03-01 07:46 | P.PNNP_ITS ---
Subjective Subjective Date of Service: 03/01/21 Interval history: no chest pain dyspnea resolved weaned off O2 Physical Exam Vital Signs: Vital Signs: Last Vital Signs Temp 98.2 F 03/01/21 07:09 Pulse 54 03/01/21 07:09 Resp 18 03/01/21 07:09 BP 135/60 03/01/21 07:09 Pulse Ox 95 03/01/21 07:09 Body Mass Index 20.1 Const: General: cooperative, healthy appearing, comfortable, no acute distress, well developed, alert and awake; No acute distress Nutritional Appearance: average body habitus and well nourished Orientation/consciousness: oriented to person, oriented to place and patient oriented x3 Limitations: no limitations and other limitations (Question if the patient remembers events correctly) HENMT: Head: Yes normal to inspection, Yes normocephalic and Yes atraumatic Ears: hearing grossly normal bilaterally and external ears normal General nose exam: Normal external nose present Face and sinus: Yes normal facial exam Mouth: Normal oral and palatal mucosa present and oropharynx normal Throat: Yes posterior oropharynx normal Eyes: General: appearance normal, both eyes and all related structures Visual Adam: normal visual adam by confrontation Alignment and Position: alignment normal Periorbital: periorbital findings normal Eyelids: Yes eyelids normal Conjunctivae: conjunctivae normal Sclerae: sclerae normal Corneas: corneas normal Pupils: Equal, round and reactive pupils present and Pupil accommodation reflex normal EOM: EOMs intact bilaterally Direct Ophthalmoscopy: normal light reflex Neck: Neck: Yes normal visual inspection, Yes full ROM, Yes no lympha denopathy, Yes no meningeal signs, Yes trachea midline and Yes supple Thyroid: Thyroid normal Carotids: normal carotid upstroke and bounding pulses Chest: Chest palpation & inspection: normal inspection of the chest and normal palpation of entire chest wall Resp: Effort & Inspection: normal respiratory effort and able to speak in complete sentences Auscultation: clear to auscultation bilaterally, no crackles, no wheezes and diminished lung sounds Cardio: Jugular venous distension: no JVD Palpation: normal PMI Rate: regular rate Rhythm: regular rhythm Heart sounds: S1 normal heart sound present, S2 normal heart sound present, no gallops, Murmur heart sound present systolic early, III/ and at the right sternal border and no rubs Peripheral pulses: Peripheral pulses 2+ throughout GI: Inspection: Yes normal to inspection Palpation (GI): Soft to palpation, nontender, no guarding, not rigid and No hepatosplenomegaly present Percussion: Yes normal to percussion Auscultation: normal bowel sounds Rectal Exam - Female: deferred : General: Yes no CVA tenderness Back/Spine/Pelvis: Back: no CVA tenderness Cervical Spine: normal cervical lordosis and cervical ROM normal Thoracic/Lumbar Spine: thoracic and lumbar spine normal to inspection Skin: General skin exam: no rashes or lesions noted Lesions: no lesions Rashes: no rashes Wounds: no wounds Neuro: General: oriented to person, oriented to place, patient oriented x3, tone normal, moves all extremities, Normal light touch and pain sensation, no meningeal signs, no focal motor deficits, CN's II-XI intact bilaterally, normal sensation to monofilament and deep tendon reflexes 2+ bilaterally Cranial nerves: Yes CN's II-XII intact bilaterally, Yes Equal, round and reactive pupils present, Yes Bilaterally intact EOM present, Yes Nystagmus not present, Yes Normal facial strength present, Yes Midline tongue present, Yes Normal gag reflex present, Yes Symmetric palate elevation present, Yes Normal hearing present and Yes Ability to bilaterally rotate head present Cognition (Neuro): normal cognition and abnormal cognition Speech: Abnormal speech present and Other speech findings present (Neuro) Motor exam (neuro): 5/5 motor strength present throughout, Pronator motor function not present, no tremor noted, no asterixis, Motor fasciculations not present, Normal motor muscle tone present throughout and Motor abnormalities not present Sensory Exam: Bilaterally intact graphesthesia and Sensory deficit (Neuro) Deep tendon reflexes (DTR's): Right triceps reflex intensity grade: 2+, Left triceps reflex intensity grade: 2+, Rt Biceps (C5, C6): 2+, Left biceps reflex intensity grade: 2+, Right brachioradialis reflex intensity grade: 2+, Left brachioradialis reflex intensity grade: 2+, Right patellar reflex intensity grade: 2+, Left patellar reflex intensity grade: 2+, Right ankle reflex intensity grade: 2+ and Left ankle reflex intensity grade: 2+ Plantar Reflex Responses: downgoing: right, left and bilateral Coordination: [id number] test normal and [id number] test normal Pupils: Normal pupillary reactivity/response: bilateral Extrem: General: Yes normal to inspection, Yes full ROM, Yes normal exam except as noted, Yes no clubbing, cyanosis or edema and Yes no pedal edema Psych: Appearance: grossly normal and well kempt Mental Status: mental status grossly normal Speech and movement: Normal speech and movement present and Clear speech present Affect: normal affect Attitude: cooperative Thought process: Normal thought process present Thought content: Normal thought content present Insight: Other insight findings present (Psych) (Patient may not be recalling events correctly based discussion with [facility]) Objective Data Labs CBC & Chem 7: 03/01/21 06:06 03/01/21 06:06 Labs: Laboratory Results - last 24 hr 02/28/21 02/28/21 03/01/21 05:45 07:22 06:05 WBC RBC Hgb Hct MCV MCH MCHC RDW Plt Count MPV Absolute Nucleated RBC Nucleated RBC % (auto) Sodium Potassium Chloride Carbon Dioxide Anion Gap BUN Creatinine Estim Creat Clear Calc Estimated GFR POC Glucose 81 Random Glucose Calcium Iron 13 L TIBC 262 % Saturation 5 L Unsat Iron Binding 249 Ferritin 65 B-Natriuretic Peptide 422 H Blood Type Antibody Screen 03/01/21 03/01/21 03/01/21 06:05 06:06 06:06 WBC 7.1 RBC 2.57 L Hgb 7.7 L Hct 23.5 L MCV 91.4 MCH 30.0 MCHC 32.8 RDW 13.0 Plt Count 303 MPV 11.4 Absolute Nucleated RBC 0.000 Nucleated RBC % (auto) 0.0 Sodium 136 Potassium 3.9 Chloride 101 Carbon Dioxide 26 Anion Gap 13 BUN 66 H Creatinine 2.22 H Estim Creat Clear Calc 15.6 Estimated GFR 21 POC Glucose Random Glucose 297 H D Calcium 8.8 Iron TIBC % Saturation Unsat Iron Binding Ferritin B-Natriuretic Peptide Blood Type O Negative Antibody Screen NEGATIVE 03/01/21 07:06 WBC RBC Hgb Hct MCV MCH MCHC RDW Plt Count MPV Absolute Nucleated RBC Nucleated RBC % (auto) Sodium Potassium Chloride Carbon Dioxide Anion Gap BUN Creatinine Estim Creat Clear Calc Estimated GFR POC Glucose 276 H Random Glucose Calcium Iron TIBC % Saturation Unsat Iron Binding Ferritin B-Natriuretic Peptide Blood Type Antibody Screen Microbiology Microbiology Results: Microbiology 11/24/20 08:18 Stool Stool Culture - Final 09/21/20 Unknown Urine clean catch - Clean Catch Midstream Urine Culture - Final No growth. Assessment & Plan Assessment and plan (1) HTN (hypertension): Status: Acute (2) Dementia, vascular, mixed: Status: Acute (3) Communicating hydrocephalus: Status: Acute (4) Bradycardia: Status: Acute (5) Neurocognitive disorder: Status: Acute Assessment and Plan: hospital d#[id number] 85yo F with HTN, HLD, DM2, hypothyroidism, CAD s/p PCI. 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 - hold diuresis, monitor BMP, avoid nephrotoxins creat up will d/c enalapril # acute hypoxic RF - resolved # anemia - likely JI + ACKD, replete Fe, check FOBT, monitor H+H # resistant HTN - continue nifedipine 120mg daily, enalapril 20mg bid, carvedilol 6.25mg bid, and spironolactone 25mg daily; d/c'ed hydralazine - Dopplers renal showed medical renal disease + mildly elevated velocity within the proximal left main renal artery that may represent a focal stenosis less than 60%; CTA recommended to definitely rule out renal artery stenosis, patient being followed by Nephrology they recommend to hold off on further studies at present given elevated SCr 02/24- improved- will consider CTA to definitely rule out TIMMY if SCr continues to improve - continue to monitor BP closely BP now controlled on spironolactone will go up to 50 with the d/c of enalapril Time Spent With Patient Time: : Procedures Date of Service Date of Service: 03/01/21 Progress Note: Quality Stroke Does the patient have a stroke diagnosis?: No
--- NOTE | 2021-03-01 11:18 | P.PNIM_ITS ---
Subjective Subjective Date of Service: 03/01/21 Interval History: No chest pain No dyspnea Agreeable to blood transfusion In an out of junctional bradycardia Physical Exam Vital Signs: Vital Signs: Last Vital Signs Temp 98.2 F 03/01/21 07:09 Pulse 54 03/01/21 07:09 Resp 18 03/01/21 07:09 BP 135/60 03/01/21 07:09 Pulse Ox 95 03/01/21 07:09 Body Mass Index 20.1 Gen: in no acute distress HEENT: sclera anicteric, moist mucus membranes Neck: supple Lungs: clear Heart: regular rate and rhythm, no murmurs, no JVD Abd: soft, non-tender, non-distended Ext: no edema Skin: warm/well-perfused Neuro: alert and oriented x3, no focal findings Psych: impaired insight Objective Data Current Medications Generic Name Dose Route Start Last Admin Trade Name Freq PRN Reason Stop Dose Admin Aspirin 81 mg 02/28/21 09:00 03/01/21 07:33 Aspirin 81 Mg Tab.Chew PO 81 mg DAILY RAGHAVENDRA Administration Atorvastatin Calcium 80 mg 02/27/21 08:00 02/28/21 20:08 Atorvastatin Calcium 80 Mg Tablet PO 80 mg BEDTIME RAGHAVENDRA Administration Carvedilol 6.25 mg 02/27/21 21:00 03/01/21 07:34 Carvedilol 6.25 Mg Tablet PO 6.25 mg BID RAGHAVENDRA Administration Protocol Ferrous Sulfate 324 mg 02/28/21 09:00 03/01/21 07:33 Ferrous Sulfate 324 Mg Tablet.Dr PO 324 mg DAILY RAGHAVENDRA Administration Glipizide 2.5 mg 02/24/21 17:00 03/01/21 07:34 Glipizide 5 Mg Tablet PO 2.5 mg BIDWM RAGHAVENDRA Administration Ferric Sodium Gluconate 270 mls @ 67.5 mls/hr 03/01/21 09:00 03/01/21 09:59 Complex 250 mg/ Sodium IV 03/04/21 12:59 67.5 mls/hr Chloride DAILY RAGHAVENDRA Administration Levothyroxine Sodium 75 mcg 01/13/21 09:00 03/01/21 06:02 Levothyroxine Sodium 75 Mcg Tablet PO 75 mcg DAILY@0600 RAGHAVENDRA Administration Morphine Sulfate 4 mg 02/26/21 19:12 02/26/21 21:09 Morphine Sulfate 4 Mg/Ml Cartridge IVPUSH 4 mg ONCE PRN Administration Shortness of Breath Nifedipine 120 mg 02/13/21 09:00 03/01/21 07:33 Nifedipine Er 60 Mg Tab.Er.24 PO 120 mg DAILY [facility] Administration Protocol Spironolactone 25 mg 03/01/21 18:00 Spironolactone 25 Mg Tablet PO BID@0900,1800 [facility] Protocol Labs CBC & Chem 7: 03/01/21 06:06 03/01/21 06:06 Labs: Laboratory Results - last 24 hr 03/01/21 03/01/21 03/01/21 06:05 06:05 06:06 WBC 7.1 RBC 2.57 L Hgb 7.7 L Hct 23.5 L MCV 91.4 MCH 30.0 MCHC 32.8 RDW 13.0 Plt Count 303 MPV 11.4 Absolute Nucleated RBC 0.000 Nucleated RBC % (auto) 0.0 Sodium Potassium Chloride Carbon Dioxide Anion Gap BUN Creatinine Estim Creat Clear Calc Estimated GFR POC Glucose Random Glucose Calcium B-Natriuretic Peptide 422 H Blood Type O Negative Antibody Screen NEGATIVE 03/01/21 03/01/21 06:06 07:06 WBC RBC Hgb Hct MCV MCH MCHC RDW Plt Count MPV Absolute Nucleated RBC Nucleated RBC % (auto) Sodium 136 Potassium 3.9 Chloride 101 Carbon Dioxide 26 Anion Gap 13 BUN 66 H Creatinine 2.22 H Estim Creat Clear Calc 15.6 Estimated GFR 21 POC Glucose 276 H Random Glucose 297 H D Calcium 8.8 B-Natriuretic Peptide Blood Type Antibody Screen Quality Stroke Does the patient have a stroke diagnosis?: No VTE Prior VTE?: No VTE Risk Level:: Medical - moderate - high VTE Device Contraindication: N/A - Device Ordered VTE Drug Contraindication: N/A - Med Ordered Assessment and Plan (1) HTN (hypertension): Status: Acute (2) Dementia, vascular, mixed: Status: Acute (3) Communicating hydrocephalus: Status: Acute (4) Bradycardia: Status: Acute (5) Neurocognitive disorder: Status: Acute Assessment and Plan: hospital d#[id number] 85yo F with HTN, HLD, DM2, hypothyroidism, CAD s/p PCI. 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, replete Fe IV per Nephrology, will also transfuse 1 unit, monitor H+H # resistant HTN - continue nifedipine 120mg daily, enalapril 20mg bid, carvedilol 6.25mg bid, and spironolactone 25mg daily; d/c'ed hydralazine - Dopplers renal showed medical renal disease + mildly elevated velocity within the proximal left main renal artery that may represent a focal stenosis less than 60%; CTA recommended to definitely rule out renal artery stenosis, patient being followed by Nephrology they recommend to hold off on further studies at present given elevated SCr 02/24- improved- will consider CTA to definitely rule out TIMMY if SCr continues to improve - continue to monitor BP closely # cognitive impairment - evaluated by psychiatry does need guardianship + awaiting paperwork # DM2 complicated by hypoglycemia - d/c'ed metformin due to worsening renal function, added glipizide, recommend strict diabetic diet # hypothyroidism - continue LT4 # C diff colitis - resolved, s/p 14d of vancomycin treatment # acute grief reaction/depression - due to passing of , seems stable # VTE ppx - UFH
[2021-03-01 11:50] VITALS: BP 129/62; PULSE 56; RESP 17; TEMP 36.9; O2SAT 95
[2021-03-01] MEDS: Heparin Sodium,Porcine 5,000 UNIT/ML VIAL 5000 UNIT SUBCUT ×2 (12:04→23:37)
[2021-03-01 16:00] VITALS: BP 147/74; PULSE 60; RESP 16; O2SAT 99
[2021-03-01 21:28] VITALS: BP 177/89; PULSE 64
[2021-03-01] MEDS: Atorvastatin Calcium 80 MG TABLET PO (21:28)
[2021-03-01 23:36] VITALS: BP 161/67; PULSE 63; RESP 15; TEMP 36.3; O2SAT 95
[2021-03-02] VITALS (7 sets, daily range): BP systolic 106–186; BP diastolic 58–84; PULSE 57–64; RESP 16–20; TEMP 36–36.6; O2SAT 95–100
--- NOTE | 2021-03-02 | ECG_ITS ---
Test Reason : RYAN Blood Pressure : / mmHG Vent. Rate : 055 BPM Atrial Rate : 055 BPM P-R Int : 168 ms QRS Dur : 092 ms QT Int : 452 ms P-R-T Axes : 088 -70 091 degrees QTc Int : 432 ms Sinus bradycardia Left axis deviation Left ventricular hypertrophy with repolarization abnormality Abnormal ECG When compared to the previous EKG of No significant changes seen Referred By: Franck Goyal Electronically Signed By:Mohinder Walker
[2021-03-02] MEDS: Levothyroxine Sodium 75 MCG TABLET PO (05:50)
[2021-03-02 06:28] LABS: Hematocrit 23.6 % (37-47); Hemoglobin 7.5 g/dl (12.0-16.0); Mean Corpuscular HGB Conc 31.8 g/dl (31.0-35.0); Mean Corpuscular Hemoglobin 29.2 pg (27.0-33.0); Mean Corpuscular Volume 91.8 fL (80-98); Mean Platelet Volume 11.4 fL (9.4-12.3); Platelet Count 313 X10*3/uL (160-400); Red Blood Count 2.57 X10*6/uL (4.20-5.50); Red Cell Distribution Width 12.9 % (11.0-16.0); White Blood Count 6.9 X10*3/uL (4.8-10.8)
[2021-03-02 07:00] LABS: Anion Gap 13 (12-20); Blood Urea Nitrogen 59 mg/dL (9-16); Calcium 8.7 mg/dL (8.4-10.2); Carbon Dioxide 24 mmol/L (22-29); Chloride 107 mmol/L (96-108); Creatinine Clr Calc Pharmacy 21.3; Estimated Glomerular Filt Rate 30; Glucose Random 198 mg/dL (60-115); Potassium 4.2 mmol/L (3.3-5.1); Sodium 140 mmol/L (135-145)
--- NOTE | 2021-03-02 07:41 | P.PNNP_ITS ---
Subjective Subjective Date of Service: 03/02/21 Interval history: No chest pain No dyspnea Agreeable to blood transfusion In an out of junctional bradycardia Physical Exam Vital Signs: Vital Signs: Last Vital Signs Temp 97.5 F 03/02/21 07:28 Pulse 63 03/02/21 07:28 Resp 20 03/02/21 07:28 BP 153/64 H 03/02/21 07:28 Pulse Ox 98 03/02/21 07:28 Body Mass Index 20.1 Const: General: cooperative, healthy appearing, comfortable, no acute distress, well developed, alert and awake; No acute distress Nutritional Appearance: average body habitus and well nourished Orientation/consciousness: oriented to person, oriented to place and patient oriented x3 Limitations: no limitations and other limitations (Question if the patient remembers events correctly) HENMT: Head: Yes normal to inspection, Yes normocephalic and Yes atraumatic Ears: hearing grossly normal bilaterally and external ears normal General nose exam: Normal external nose present Face and sinus: Yes normal facial exam Mouth: Normal oral and palatal mucosa present and oropharynx normal Throat: Yes posterior oropharynx normal Eyes: General: appearance normal, both eyes and all related structures Visual Adam: normal visual adam by confrontation Alignment and Position: alignment normal Periorbital: periorbital findings normal Eyelids: Yes eyelids normal Conjunctivae: conjunctivae normal Sclerae: sclerae normal Corneas: corneas normal Pupils: Equal, round and reactive pupils present and Pupil accommodation reflex normal EOM: EOMs intact bilaterally Direct Ophthalmoscopy: normal light reflex Neck: Neck: Yes normal visual inspection, Yes full ROM, Yes no lymphadenopathy, Yes no meningeal signs, Yes trachea midline and Yes supple Thyroid: Thyroid normal Carotids: normal carotid upstroke and bounding pulses Chest: Chest palpation & inspection: normal inspection of the chest and normal palpation of entire chest wall Resp: Effort & Inspection: normal respiratory effort and able to speak in complete sentences Auscultation: clear to auscultation bilaterally, no crackles, no wheezes and diminished lung sounds Cardio: Jugular venous distension: no JVD Palpation: normal PMI Rate: regular rate Rhythm: regular rhythm Heart sounds: S1 normal heart sound present, S2 normal heart sound present, no gallops, Murmur heart sound present systolic early, III/ and at the right sternal border and no rubs Peripheral pulses: Peripheral pulses 2+ throughout GI: Inspection: Yes normal to inspection Palpation (GI): Soft to palpation, nontender, no guarding, not rigid and No hepatosplenomegaly present Percussion: Yes normal to percussion Auscultation: normal bowel sounds R ectal Exam - Female: deferred : General: Yes no CVA tenderness Back/Spine/Pelvis: Back: no CVA tenderness Cervical Spine: normal cervical lordosis and cervical ROM normal Thoracic/Lumbar Spine: thoracic and lumbar spine normal to inspection Skin: General skin exam: no rashes or lesions noted Lesions: no lesions Rashes: no rashes Wounds: no wounds Neuro: General: oriented to person, oriented to place, patient oriented x3, tone normal, moves all extremities, Normal light touch and pain sensation, no meningeal signs, no focal motor deficits, CN's II-XI intact bilaterally, normal sensation to monofilament and deep tendon reflexes 2+ bilaterally Cranial nerves: Yes CN's II-XII intact bilaterally, Yes Equal, round and reactive pupils present, Yes Bilaterally intact EOM present, Yes Nystagmus not present, Yes Normal facial strength present, Yes Midline tongue present, Yes Normal gag reflex present, Yes Symmetric palate elevation present, Yes Normal hearing pres ent and Yes Ability to bilaterally rotate head present Cognition (Neuro): normal cognition and abnormal cognition Speech: Abnormal speech present and Other speech findings present (Neuro) Motor exam (neuro): 5/5 motor strength present throughout, Pronator motor function not present, no tremor noted, no asterixis, Motor fasciculations not present, Normal motor muscle tone present throughout and Motor abnormalities not present Sensory Exam: Bilaterally intact graphesthesia and Sensory deficit (Neuro) Deep tendon reflexes (DTR's): Right triceps reflex intensity grade: 2+, Left triceps reflex intensity grade: 2+, Rt Biceps (C5, C6): 2+, Left biceps reflex intensity grade: 2+, Right brachioradialis reflex intensity grade: 2+, Left brachioradialis reflex intensity grade: 2+, Right patellar reflex intensity grade: 2+, Left patellar reflex intensity grade: 2+, Right ankle reflex intensity grade: 2+ and Left ankle reflex intensity grade: 2+ Plantar Reflex Responses: downgoing: right, left and bilateral Coordination: [id number] test normal and [id number] test normal Pupils: Normal pupillary reactivity/response: bilateral Extrem: General: Yes normal to inspection, Yes full ROM, Yes normal exam except as noted, Yes no clubbing, cyanosis or edema and Yes no pedal edema Psych: Appearance: grossly normal and well kempt Mental Status: mental status grossly normal Speech and movement: Normal speech and movement present and Clear speech present Affect: normal affect Attitude: cooperative Thought process: Normal thought process present Thought content: Normal thought content present Insight: Other insight findings present (Psych) (Patient may not be recalling events correctly based discussion with [facility]) Objective Data Labs CBC & Chem 7: 03/02/21 05:50 03/02/21 05:50 Labs: Laboratory Results - last 24 hr 03/01/21 03/02/21 03/02/21 06:05 05:50 05:50 WBC 6.9 RBC 2.57 L Hgb 7.5 L Hct 23.6 L MCV 91.8 MCH 29.2 MCHC 31.8 RDW 12.9 Plt Count 313 MPV 11.4 Absolute Nucleated RBC 0.000 Nucleated RBC % (auto) 0.0 Sodium 140 Potassium 4.2 Chloride 107 Carbon Dioxide 24 Anion Gap 13 BUN 59 H Creatinine 1.63 H Estim Creat Clear Calc 21.3 Estimated GFR 30 Random Glucose 198 H Calcium 8.7 Crossmatch See Detail Microbiology Microbiology Results: Microbiology 11/24/20 08:18 Stool Stool Culture - Final 09/21/20 Unknown Urine clean catch - Clean Catch Midstream Urine Culture - Final No growth. Assessment & Plan Assessment and plan (1) HTN (hypertension): Status: Acute (2) Dementia, vascular, mixed: Status: Acute (3) Communicating hydrocephalus: Status: Acute (4) Bradycardia: Status: Acute (5) Neurocognitive disorder: Status: Acute Assessment and Plan: hospital d#[id number] 85yo F with HTN, HLD, DM2, hypothyroidism, CAD s/p PCI. 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 - hold diuresis, monitor BMP, avoid nephrotoxins # acute hypoxic RF - resolved # anemia - likely JI + ACKD, replete Fe IV will also transfuse 1 unit, monitor H+H # resistant HTN - continue nifedipine 120mg daily, enalapril 20mg bid, carvedilol 6.25mg bid, and spironolactone 25mg daily; d/c'ed hydralazine - Dopplers renal showed medical renal disease + mildly elevated velocity within the proximal left main renal artery that may represent a focal stenosis less than 60%; CTA recommended to definitely rule out renal artery stenosis, patient being followed by Nephrology they recommend to hold off on further studies at present given elevated SCr 02/24- improved- will consider CTA to definitely rule out TIMMY if SCr continues to improve - continue to monitor BP closely increasing spironolactone with good BP control Procedures Date of Service Date of Service: 03/02/21 Progress Note: Quality Stroke Does the patient have a stroke diagnosis?: No
--- NOTE | 2021-03-02 07:44 | P.PNNP_ITS ---
Subjective Subjective Date of Service: 03/28/21 Interval history: No chest pain No dyspnea Agreeable to blood transfusion In an out of junctional bradycardia Physical Exam Vital Signs: Vital Signs: Last Vital Signs Temp 97.5 F 03/02/21 07:28 Pulse 63 03/02/21 07:28 Resp 20 03/02/21 07:28 BP 153/64 H 03/02/21 07:28 Pulse Ox 98 03/02/21 07:28 Body Mass Index 20.1 Const: Other: General: AO X 3, no acute distress Resp: CTA bilateral CVS: S1,S2,RRR GI: +BS, NT, no distention Skin: No rash Neuro: motor grossly intact Psych: depressed compare to usual General: cooperative, healthy appearing, comfortable, no acute distress, well developed, alert, awake and Physically active; No acute distress Nutritional Appearance: average body habitus, well nourished and thin Isidro entation/consciousness: oriented to person, oriented to place and patient oriented x3 Limitations: no limitations and other limitations (Question if the patient remembers events correctly) HENMT: Head: Yes normal to inspection, Yes normocephalic and Yes atraumatic Ears: hearing grossly normal bilaterally and external ears normal General nose exam: Normal external nose present Face and sinus: Yes normal facial exam Mouth: Normal oral and palatal mucosa present and oropharynx normal Throat: Yes posterior oropharynx normal Eyes: General: appearance normal, both eyes and all related structures Visual Adam: normal visual adam by confrontation Alignment and Position: alignment normal Periorbital: periorbital findings normal Eyelids: Yes eyelids normal Conjunctivae: conjunctivae normal Sclerae: sclerae normal Corneas: corneas normal Pupils: Equal, round and reactive pupils present and Pupil accommodation reflex normal EOM: EOMs intact bilaterally Direct Ophthalmoscopy: normal light reflex Neck: Neck: Yes normal visual inspection, Yes full ROM, Yes no lymphadenopathy, Yes no meningeal signs, Yes trachea midline and Yes supple Thyroid: Thyroid normal Carotids: normal carotid upstroke and bounding pulses Chest: Chest palpation & inspection: normal inspection of the chest and normal palpation of entire chest wall Resp: Effort & Inspection: normal respiratory effort, able to speak in complete sentences and no respiratory distress Auscultation: clear to auscultation bilaterally, no crackles, no wheezes and diminished lung sounds Cardio: Jugular venous distension: no JVD Palpation: normal PMI Rate: regular rate Rhythm: regular rhythm Heart sounds: S1 normal heart sound present, S2 normal heart sound present, no gallops, Murmur heart sound present systolic early, III/ and at the right sternal border and no rubs Peripheral pulses: Peripheral pulses 2+ throughout GI: Inspection: Yes normal to inspection Palpation (GI): Soft to palpation, nontender, no guarding, not rigid and No hepatosplenomegaly present Percussion: Yes normal to percussion Auscultation: normal bowel sounds Rectal Exam - Female: deferred : General: Yes no CVA tenderness Back/Spine/Pelvis: Back: no CVA tenderness Cervical Spine: normal cervical lordosis and cervical ROM normal Thoracic/Lumbar Spine: thoracic and lumbar spine normal to inspection Skin: General skin exam: no rashes or lesions noted Lesions: no lesions Rashes: no rashes Wounds: no wounds Neuro: General: oriented to person, oriented to place, patient oriented x3, tone normal, moves all extremities, Normal light touch and pain sensation, no meningeal signs, no focal motor deficits, CN's II-XI intact bilaterally, normal sensation to monofilament and deep tendon reflexes 2+ bilaterally Cranial nerves: Yes CN's II-XII intact bilaterally, Yes Equal, round and reactive pupils present, Yes Bilaterally intact EOM present, Yes Nystagmus not present, Yes Normal facial strength present, Yes Midline tongue present, Yes Normal gag reflex present, Yes Symmetric palate elevation present, Yes Normal hearing present and Yes Ability to bilaterally rotate head present Cognition (Neuro): normal cognition and abnormal cognition Speech: Abnormal speech present and O ther speech findings present (Neuro) Motor exam (neuro): 5/5 motor strength present throughout, Pronator motor function not present, no tremor noted, no asterixis, Motor fasciculations not present, Normal motor muscle tone present throughout and Motor abnormalities not present Sensory Exam: Bilaterally intact graphesthesia and Sensory deficit (Neuro) Deep tendon reflexes (DTR's): Right triceps reflex intensity grade: 2+, Left triceps reflex intensity grade: 2+, Rt Biceps (C5, C6): 2+, Left biceps reflex intensity grade: 2+, Right brachioradialis reflex intensity grade: 2+, Left brachioradialis reflex intensity grade: 2+, Right patellar reflex intensity grade: 2+, Left patellar reflex intensity grade: 2+, Right ankle reflex intensity grade: 2+ and Left ankle reflex intensity grade: 2+ Plantar Reflex Responses: downgoing: right, left and bilateral Coordination: [id number] test normal and [id number] test normal Pupils: Normal pupillary reactivity/response: bilateral Extrem: General: Yes normal to inspection, Yes full ROM, Yes normal exam except as noted, Yes no clubbing, cyanosis or edema and Yes no pedal edema Psych: Appearance: grossly normal and well kempt Mental Status: mental status grossly normal Speech and movement: Normal speech and movement present and Clear speech present Affect: normal affect Attitude: cooperative Thought process: Normal thought process present Thought content: Normal thought content present Insight: Limited insight present (Psych) and Other insight findings present (Psych) (Patient may not be recalling events correctly based discussion with [facility]) Objective Data Labs CBC & Chem 7: 03/19/21 10:14 03/28/21 06:15 Labs: Laboratory Results - last 24 hr 03/01/21 03/02/21 03/02/21 06:05 05:50 05:50 WBC 6.9 RBC 2.57 L Hgb 7.5 L Hct 23.6 L MCV 91.8 MCH 29.2 MCHC 31.8 RDW 12.9 Plt Count 313 MPV 11.4 Absolute Nucleated RBC 0.000 Nucleated RBC % (auto) 0.0 Sodium 140 Potassium 4.2 Chloride 107 Carbon Dioxide 24 Anion Gap 13 BUN 59 H Creatinine 1.63 H Estim Creat Clear Calc 21.3 Estimated GFR 30 Random Glucose 198 H Calcium 8.7 Crossmatch See Detail Microbiology Microbiology Results: Microbiology 11/24/20 08:18 Stool Stool Culture - Final 09/21/20 Unknown Urine clean catch - Clean Catch Midstream Urine Culture - Final No growth. Procedures Date of Service Date of Service: 03/28/21 Assessment & Plan Assessment and plan (1) Vascular dementia without behavioral disturbance: Status: Acute Assessment and Plan: 85yo F with HTN, HLD, DM2, hypothyroidism, CAD s/p PCI. initially admitted with falls, elevated troponin; disposition complicated by cognitive impairment requiring guardianship on 02/26/21 developed hypoxia, dyspnea -> CHF exacerbation with NSTEMI on 03/02/21 had 2 episodes of junctional bradycardia/sinus pause associated with BM and vomiting # Resistant HTN. 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
[2021-03-02 07:47] LABS: Immature Retic Fraction 22.6 % (3.0-15.9); Retic HGB Equivalent 28.4 pg (30.0-35.0); Reticulocyte Percent 1.4 % (0.5-1.8); Reticulocytes Absolute 0.036 X10*6/uL (0.026-0.095)
[2021-03-02 07:55] LABS: Bilirubin Total 0.3 mg/dL (0.0-1.0); Lactate Dehydrogenase 217 U/L (122-220)
--- NOTE | 2021-03-02 08:49 | MHC.CM.PN ---
dc plan is to care home placement pending completion of [facility] application by conservator/guardian. cm to cont. to follow.
[2021-03-02] MEDS: Spironolactone 25 MG TABLET PO ×2 (08:52→17:11)
[2021-03-02] MEDS: Aspirin 81 MG TAB.CHEW PO (08:52)
[2021-03-02] MEDS: glipiZIDE 5 MG TABLET 2.5 MG PO ×2 (08:52→17:18)
[2021-03-02] MEDS: carvediloL 6.25 MG TABLET PO (08:52)
[2021-03-02] MEDS: NIFEdipine ER 60 MG TAB.ER.24 120 MG PO (08:52)
[2021-03-02] MEDS: Ferrous Sulfate 324 MG TABLET.DR PO (08:52)
[2021-03-02] MEDS: ondansetron HCL 4 MG/2 ML VIAL IVPUSH (12:30)
[2021-03-02] MEDS: Heparin Sodium,Porcine 5,000 UNIT/ML VIAL 5000 UNIT SUBCUT ×2 (14:06→22:47)
[2021-03-02] MEDS: 0.9 % Sodium Chloride 1,000 ML 999 ML IV (14:07)
--- NOTE | 2021-03-02 14:44 | P.PNIM_ITS ---
Subjective Subjective Date of Service: 03/02/21 Interval History: rapid response called 2x today for lightheadness associated with junctional bradycardia as low as 20s with sinus pause to 3.4 sec and hypotension as low as 60s/40s; 1st episode during large BM, 2nd episode while vomiting. BP improved after fluids + Zofran given. denies chest pain or dyspnea Physical Exam Vital Signs: Vital Signs: Last Vital Signs Temp 96.8 F 03/02/21 14:18 Pulse 62 03/02/21 14:18 Resp 18 03/02/21 14:18 BP 107/58 L 03/02/21 14:18 Pulse Ox 98 03/02/21 07:28 Body Mass Index 20.1 Gen: ill-appearing HEENT: sclera anicteric, moist mucus membranes Neck: supple Lungs: clear Heart: regular rate and rhythm, no murmurs, no JVD Abd: soft, non-tender, non-distended Ext: no edema Skin: warm/well-perfused Neuro: alert and oriented x3, no focal findings Psych: impaired insight, restricted affect Objective Data Current Medications Generic Name Dose Route Start Last Admin Trade Name Srinivas PRN Reason Stop Dose Admin Aspirin 81 mg 02/28/21 09:00 03/02/21 08:52 Aspirin 81 Mg Tab.Chew PO 81 mg DAILY RAGHAVENDRA Administration Atorvastatin Calcium 80 mg 02/27/21 08:00 03/01/21 21:28 Atorvastatin Calcium 80 Mg Tablet PO 80 mg BEDTIME RAGHAVENDRA Administration Carvedilol 6.25 mg 02/27/21 21:00 03/02/21 08:52 Carvedilol 6.25 Mg Tablet PO 6.25 mg BID RAGHAVENDRA Administration Protocol Ferrous Sulfate 324 mg 02/28/21 09:00 03/02/21 08:52 Ferrous Sulfate 324 Mg Tablet. PO 324 mg DAILY RAGHAVENDRA Administration Glipizide 2.5 mg 02/24/21 17:00 03/02/21 08:52 Glipizide 5 Mg Tablet PO 2.5 mg BIDWM RAGHAVENDRA Administration Heparin Sodium (Porcine) 5,000 unit 03/01/21 12:00 03/02/21 14:06 Heparin Sodium,Porcine 5,000 Unit/Ml Vial SUBCUT 5,000 unit Q12H RAGHAVENDRA Administration Ferric Sodium Gluconate 270 mls @ 135 mls/hr 03/01/21 09:00 03/02/21 14:08 Complex 250 mg/ Sodium IV 03/04/21 10:59 Infused Chloride DAILY [facility] Infusion Levothyroxine Sodium 75 mcg 01/13/21 09:00 03/02/21 05:50 Levothyroxine Sodium 75 Mcg Tablet PO 75 mcg DAILY@0600 RAGHAVENDRA Administration Morphine Sulfate 4 mg 02/26/21 19:12 02/26/21 21:09 Morphine Sulfate 4 Mg/Ml Cartridge IVPUSH 4 mg ONCE PRN Administration Shortness of Breath Nifedipine 120 mg 02/13/21 09:00 03/02/21 08:52 Nifedipine Er 60 Mg Tab.Er.24 PO 120 mg DAILY [facility] Administration Protocol Ondansetron HCl 4 mg 03/02/21 14:26 Ondansetron Hcl 4 Mg/2 Ml Vial IVPUSH Q4H PRN nausea/vomiting Spironolactone 25 mg 03/01/21 18:00 03/02/21 08:52 Spironolactone 25 Mg Tablet PO 25 mg BID@0900,1800 [facility] Administration Protocol Labs CBC & Chem 7: 03/02/21 05:50 03/02/21 05:50 Labs: Laboratory Results - last 24 hr 03/01/21 03/02/21 03/02/21 06:05 05:50 05:50 WBC 6.9 RBC 2.57 L Hgb 7.5 L Hct 23.6 L MCV 91.8 MCH 29.2 MCHC 31.8 RDW 12.9 Plt Count 313 MPV 11.4 Absolute Nucleated RBC 0.000 Nucleated RBC % (auto) 0.0 Absolute Retic 0.036 Percent Retic 1.4 Immature Retic Fraction 22.6 H Retic Hgb Equivalent 28.4 L Sodium 140 Potassium 4.2 Chloride 107 Carbon Dioxide 24 Anion Gap 13 BUN 59 H Creatinine 1.63 H Estim Creat Clear Calc 21.3 Estimated GFR 30 Random Glucose 198 H Calcium 8.7 Total Bilirubin 0.3 Lactate Dehydrogenase 217 Blood Type O Negative Antibody Screen NEGATIVE Crossmatch See Detail Quality Stroke Does the patient have a stroke diagnosis?: No VTE Prior VTE?: No VTE Risk Level:: Medical - moderate - high VTE Device Contraindication: N/A - Device Ordered VTE Drug Contraindication: N/A - Med Ordered Assessment and Plan (1) HTN (hypertension): Status: Acute (2) Dementia, vascular, mixed: Status: Acute (3) Communicating hydrocephalus: Status: Acute (4) Bradycardia: Status: Acute (5) Neurocognitive disorder: Status: Acute Assessment and Plan: hospital d#[id number] 85yo F with HTN, HLD, DM2, hypothyroidism, CAD s/p PCI. initially admitted with falls, elevated troponin; disposition complicated by cognitive impairment requiring guardianship on 02/26/21 developed hypoxia, dyspnea -> CHF exacerbation with NSTEMI # sinus pause, junctional bradycardia - ?vasovagal. discuss with Cardiology. 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 - SCr improved; continue to hold diuresis, monitor BMP, avoid nephrotoxins # acute hypoxic RF - resolved # normocytic anemia - likely JI + ACKD, replete Fe IV per Nephrology, tranfused 1u PRBCs yesterday, will give another unit today, monitor H+H # resistant HTN - was on nifedipine 120mg daily, enalapril 20mg bid, carvedilol 6.25mg bid, and spironolactone 25mg daily; d/c'ed hydralazine - Dopplers renal showed medical renal disease + mildly elevated velocity within the proximal left main renal artery that may represent a focal stenosis less than 60%; CTA recommended to definitely rule out renal artery stenosis, patient being followed by Nephrology they recommend to hold off on further studies at present given elevated SCr 02/24- improved- will consider CTA to definitely rule out TIMMY if SCr continues to improve - continue to monitor BP closely # cognitive impairment - evaluated by psychiatry does need guardianship + awaiting paperwork # DM2 complicated by hypoglycemia - d/c'ed metformin due to worsening renal function, added glipizide, recommend strict diabetic diet # hypothyroidism - continue LT4 # C diff colitis - resolved, s/p 14d of vancomycin treatment # acute grief reaction/depression - due to passing of , seems stable # VTE ppx - UFH
--- NOTE | 2021-03-02 15:16 | PC.NURSE ---
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
[2021-03-02 16:53] LABS: Glucose, Whole Blood 286 mg/dL (60-115)
[2021-03-02] MEDS: Atorvastatin Calcium 80 MG TABLET PO (20:46)
[2021-03-03] VITALS (15 sets, daily range): BP systolic 164–204; BP diastolic 58–107; PULSE 59–74; RESP 14–20; TEMP 36.1–36.7; O2SAT 95–97
[2021-03-03] MEDS: Levothyroxine Sodium 75 MCG TABLET PO ×2 (05:30→05:32)
[2021-03-03 06:12] LABS: Hematocrit 30.1 % (37-47); Hemoglobin 9.6 g/dl (12.0-16.0); Mean Corpuscular HGB Conc 31.9 g/dl (31.0-35.0); Mean Corpuscular Hemoglobin 29.5 pg (27.0-33.0); Mean Corpuscular Volume 92.6 fL (80-98); Mean Platelet Volume 11.5 fL (9.4-12.3); Platelet Count 346 X10*3/uL (160-400); Red Blood Count 3.25 X10*6/uL (4.20-5.50); Red Cell Distribution Width 13.3 % (11.0-16.0); White Blood Count 11.3 X10*3/uL (4.8-10.8)
[2021-03-03 07:50] LABS: Glucose, Whole Blood 129 mg/dL (60-115)
--- NOTE | 2021-03-03 09:54 | PM.PNCARD ---
Subjective Subjective Date of Service: 03/03/21 Interval history: Feeling good. No symptoms. Yesterday she had episodes of junctional bradycardia and 3 seconds pause while having a large bowel movement and vomiting. She is saying she is feeling better today. Physical Exam Vital Signs: Last Vital Signs Temp 97.2 F 03/03/21 07:38 Pulse 62 03/03/21 07:38 Resp 18 03/03/21 07:38 BP 203/99 H 03/03/21 07:38 Pulse Ox 97 03/03/21 07:38 Body Mass Index 20.1 GENERAL APPEARANCE: in no acute distress, pleasant. NECK: no carotid bruit, no JVD. SKIN: no suspicious lesions, warm and dry. HEART: no murmurs, regular rate and rhythm. LUNGS: Clear to auscultation. ABDOMEN: soft, nontender. EXTREMITIES: no edema. PERIPHERAL PULSES: equal. NEUROLOGIC: No gross deficits, AAO X 3 Results Labs and Meds Result diagrams: 03/03/21 05:31 03/02/21 05:50 Lab results: Laboratory Results - last 24 hr 03/01/21 03/02/21 03/03/21 06:05 16:49 05:31 WBC 11.3 H RBC 3.25 L D Hgb 9.6 L D Hct 30.1 L D MCV 92.6 MCH 29.5 MCHC 31.9 RDW 13.3 Plt Count 346 MPV 11.5 Absolute Nucleated RBC 0.000 Nucleated RBC % (auto) 0.0 POC Glucose 286 H Blood Type O Negative Antibody Screen NEGATIVE Crossmatch See Detail 03/03/21 07:41 WBC RBC Hgb Hct MCV MCH MCHC RDW Plt Count MPV Absolute Nucleated RBC Nucleated RBC % (auto) POC Glucose 129 H Blood Type Antibody Screen Crossmatch Progress Note: A&P Assessment and plan (1) HTN (hypertension): Status: Acute (2) Bradycardia: Status: Acute Assessment and Plan: 85-year-old female with hypertension and recent episode of congestive heart failure in the setting of elevated blood pressure. She has been euvolemic and stable from heart failure point of view. Blood pressure is elevated and hydralazine 25 mg 3 times a day was added today. I think she was taking thiazides before and hydrochlorothiazide can be resumed. She had 2 episodes of bradycardia yesterday during bowel movement and vomiting. I think that is likely vagal reaction. Her beta-derrek was held after that. I think her baseline heart rate is slow in 60s so probably best to discontinue beta-blockers right now. Thank you for allowing me to participate in the care of your patient. Please feel free to contact me if you have any questions. Fall Risk Details Current Medications: Current Medications Generic Name Dose Route Start Last Admin Trade Name Freq PRN Reason Stop Dose Admin Aspirin 81 mg 02/28/21 09:00 03/02/21 08:52 Aspirin 81 Mg Tab.Chew PO 81 mg DAILY RAGHAVENDRA Administration Atorvastatin Calcium 80 mg 02/27/21 08:00 03/02/21 20:46 Atorvastatin Calcium 80 Mg Tablet PO 80 mg BEDTIME RAGHAVENDRA Administration Ferrous Sulfate 324 mg 02/28/21 09:00 03/02/21 08:52 Ferrous Sulfate 324 Mg Tablet. PO 324 mg DAILY RAGHAVENDRA Administration Glipizide 2.5 mg 02/24/21 17:00 03/02/21 17:18 Glipizide 5 Mg Tablet PO 2.5 mg BIDWM RAGHAVENDRA Administration Guaifenesin/Dextromethorphan 5 ml 03/02/21 23:01 Guaifenesin Dm 100/10/5 Ml 5 Ml Syrup PO Q6H PRN cough Heparin Sodium (Porcine) 5,000 unit 03/01/21 12:00 03/02/21 22:47 Heparin Sodium,Porcine 5,000 Unit/Ml Vial SUBCUT 5,000 unit Q12H RAGHAVENDRA Administration Hydralazine HCl 25 mg 03/03/21 09:00 Hydralazine Hcl 25 Mg Tablet PO TID [facility] Protocol Ferric Sodium Gluconate 270 mls @ 135 mls/hr 03/01/21 09:00 03/03/21 09:26 Complex 250 mg/ Sodium IV 03/04/21 10:59 67.5 mls/hr Chloride DAILY RAGHAVENDRA Administration Levothyroxine Sodium 75 mcg 01/13/21 09:00 03/03/21 05:32 Levothyroxine Sodium 75 Mcg Tablet PO 75 mcg DAILY@0600 RAGHAVENDRA Administration Morphine Sulfate 4 mg 02/26/21 19:12 02/26/21 21:09 Morphine Sulfate 4 Mg/Ml Cartridge IVPUSH 4 mg ONCE PRN Administration Shortness of Breath Nifedipine 120 mg 02/13/21 09:00 03/02/21 08:52 Nifedipine Er 60 Mg Tab.Er.24 PO 120 mg DAILY RAGHAVENDRA Administration Protocol Ondansetron HCl 4 mg 03/02/21 14:26 03/02/21 12:30 Ondansetron Hcl 4 Mg/2 Ml Vial IVPUSH 4 mg Q4H PRN Administration nausea/vomiting Spironolactone 25 mg 03/01/21 18:00 03/02/21 17:11 Spironolactone 25 Mg Tablet PO 25 mg BID@0900,1800 RAGHAVENDRA Administration Protocol Time Spent With Patient Time: Total time spent is greater than 50% in coordination of care (as documented) at patient's floor/unit and/or counseling patient: Time with patient: 15 - 24 minutes Progress Note: Quality Stroke Does the patient have a stroke diagnosis?: No Procedures Date of Service Date of Service: 03/03/21
[2021-03-03] MEDS: glipiZIDE 5 MG TABLET 2.5 MG PO ×2 (11:13→18:17)
[2021-03-03] MEDS: hydrALAZINE HCl 25 MG TABLET PO ×3 (11:14→20:25)
[2021-03-03] MEDS: Aspirin 81 MG TAB.CHEW PO (11:14)
[2021-03-03] MEDS: Ferrous Sulfate 324 MG TABLET.DR PO (11:14)
[2021-03-03] MEDS: Spironolactone 25 MG TABLET PO ×2 (11:14→18:16)
[2021-03-03] MEDS: NIFEdipine ER 60 MG TAB.ER.24 120 MG PO (11:14)
[2021-03-03] MEDS: Heparin Sodium,Porcine 5,000 UNIT/ML VIAL 5000 UNIT SUBCUT (11:15)
[2021-03-03 12:18] LABS: Glucose, Whole Blood 285 mg/dL (60-115)
--- NOTE | 2021-03-03 12:50 | P.PNIM_ITS ---
Subjective Subjective Date of Service: 03/03/21 Interval History: no chest pain or dyspnea feels better BP high again Physical Exam Vital Signs: Vital Signs: Last Vital Signs Temp 97.0 F 03/03/21 12:09 Pulse 63 03/03/21 12:09 Resp 18 03/03/21 12:09 BP 197/95 H 03/03/21 12:09 Pulse Ox 96 03/03/21 12:09 Body Mass Index 20.1 Gen: NAD HEENT: sclera anicteric, moist mucus membranes Neck: supple Lungs: clear Heart: regular rate and rhythm, no murmurs, no JVD Abd: soft, non-tender, non-distended Ext: no edema Skin: warm/well-perfused Neuro: alert and oriented x3, no focal findings Psych: impaired insight, restricted affect Objective Data Current Medications Generic Name Dose Route Start Last Admin Trade Name Freq PRN Reason Stop Dose Admin Aspirin 81 mg 02/28/21 09:00 03/03/21 11:14 Aspirin 81 Mg Tab.Chew PO 81 mg DAILY RAGHAVENDRA Administration Atorvastatin Calcium 80 mg 02/27/21 08:00 03/02/21 20:46 Atorvastatin Calcium 80 Mg Tablet PO 80 mg BEDTIME RAGHAVENDRA Administration Ferrous Sulfate 324 mg 02/28/21 09:00 03/03/21 11:14 Ferrous Sulfate 324 Mg Tablet.Dr PO 324 mg DAILY RAGHAVENDRA Administration Glipizide 2.5 mg 02/24/21 17:00 03/03/21 11:13 Glipizide 5 Mg Tablet PO 2.5 mg BIDWM RAGHAVENDRA Administration Guaifenesin/Dextromethorphan 5 ml 03/02/21 23:01 Guaifenesin Dm 100/10/5 Ml 5 Ml Syrup PO Q6H PRN cough Heparin Sodium (Porcine) 5,000 unit 03/01/21 12:00 03/03/21 11:15 Heparin Sodium,Porcine 5,000 Unit/Ml Vial SUBCUT 5,000 unit Q12H RAGHAVENDRA Administration Hydralazine HCl 25 mg 03/03/21 09:00 03/03/21 11:14 Hydralazine Hcl 25 Mg Tablet PO 25 mg TID RAGHAVENDRA Administration Protocol Ferric Sodium Gluconate 270 mls @ 135 mls/hr 03/01/21 09:00 03/03/21 09:26 Complex 250 mg/ Sodium IV 03/04/21 10:59 67.5 mls/hr Chloride DAILY RAGHAVENDRA Administration Levothyroxine Sodium 75 mcg 01/13/21 09:00 03/03/21 05:32 Levothyroxine Sodium 75 Mcg Tablet PO 75 mcg DAILY@0600 RAGHAVENDRA Administration Morphine Sulfate 4 mg 02/26/21 19:12 02/26/21 21:09 Morphine Sulfate 4 Mg/Ml Cartridge IVPUSH 4 mg ONCE PRN Administration Shortness of Breath Nifedipine 120 mg 02/13/21 09:00 03/03/21 11:14 Nifedipine Er 60 Mg Tab.Er.24 PO 120 mg DAILY RAGHAVENDRA Administration Protocol Ondansetron HCl 4 mg 03/02/21 14:26 03/02/21 12:30 Ondansetron Hcl 4 Mg/2 Ml Vial IVPUSH 4 mg Q4H PRN Administration nausea/vomiting Spironolactone 25 mg 03/01/21 18:00 03/03/21 11:14 Spironolactone 25 Mg Tablet PO 25 mg BID@0900,1800 [facility] Administration Protocol Labs CBC & Chem 7: 03/03/21 05:31 03/02/21 05:50 Labs: Laboratory Results - last 24 hr 03/01/21 03/02/21 03/03/21 06:05 16:49 05:31 WBC 11.3 H RBC 3.25 L D Hgb 9.6 L D Hct 30.1 L D MCV 92.6 MCH 29.5 MCHC 31.9 RDW 13.3 Plt Count 346 MPV 11.5 Absolute Nucleated RBC 0.000 Nucleated RBC % (auto) 0.0 POC Glucose 286 H Blood Type O Negative Antibody Screen NEGATIVE Crossmatch See Detail 03/03/21 03/03/21 07:41 12:07 WBC RBC Hgb Hct MCV MCH MCHC RDW Plt Count MPV Absolute Nucleated RBC Nucleated RBC % (auto) POC Glucose 129 H 285 H Blood Type Antibody Screen Crossmatch Quality Stroke Does the patient have a stroke diagnosis?: No VTE Prior VTE?: No VTE Risk Level:: Medical - moderate - high VTE Device Contraindication: N/A - Device Ordered VTE Drug Contraindication: N/A - Med Ordered Assessment and Plan (1) HTN (hypertension): Status: Acute (2) Dementia, vascular, mixed: Status: Acute (3) Communicating hydrocephalus: Status: Acute (4) Bradycardia: Status: Acute (5) Neurocognitive disorder: Status: Acute Assessment and Plan: hospital d#[id number] 85yo F with HTN, HLD, DM2, hypothyroidism, CAD s/p PCI. initially admitted with falls, elevated troponin; disposition complicated by cognitive impairment requir ing guardianship on 02/26/21 developed hypoxia, dyspnea -> CHF exacerbation with NSTEMI on 03/02/21 had 2 episodes of junctional bradycardia/sinus pause associated with BM and vomiting # sinus pause, junctional bradycardia - likely vasovagal; Cardiology concurs. Beta-derrek d/c'ed. 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 - SCr improved; continue to hold diuresis + enalapril, monitor BMP, avoid nephrotoxins # acute hypoxic RF - resolved # normocytic anemia - likely JI + ACKD, replete Fe IV per Nephrology, tranfused 1u PRBCs yesterday, will give another unit today, monitor H+H # resistant HTN - continue ifedipine 120mg daily and spironolactone 25mg daily; add back hydralazine 25 mg tid - Dopplers renal showed medical renal disease + mildly elevated velocity within the proximal left main renal artery that may represent a focal stenosis less than 60%; CTA recommended to definitely rule out renal artery stenosis, patient being followed by Nephrology they recommend to hold off on further studies at pr esent given elevated SCr 02/24- improved- will consider CTA to definitely rule out TIMMY if SCr continues to improve - continue to monitor BP closely # cognitive impairment - evaluated by psychiatry does need guardianship + awaiting paperwork # DM2 complicated by hypoglycemia - d/c'ed metformin due to worsening renal function, added glipizide, recommend strict diabetic diet # hypothyroidism - continue LT4 # C diff colitis - resolved, s/p 14d of vancomycin treatment # acute grief reaction/depression - due to passing of , seems stable # VTE ppx - UFH
--- NOTE | 2021-03-03 15:48 | PC.NURSE ---
Addendum entered by Leena Chavarria RN 03/03/21 18:10: BP down to 164/58,will monitor Original Note: PBP elevated 200/107 PULSE 63 I scheduled Hydralazine administered e will reassess,patient has no complaints
[2021-03-03] MEDS: Atorvastatin Calcium 80 MG TABLET PO (20:24)
--- NOTE | 2021-03-03 20:30 | PC.NURSE ---
Addendum entered by Leena Chavarria RN 03/03/21 23:04: hydralazine IV was administered as ordered,BP 180/80 pulse 65,Dr. Eldridge notififed Original Note: P elevated BP 195/89 pulse 64 I scheduled Hydralazine administered,Dr. Eldridge notified e will monitor,
[2021-03-03] MEDS: hydrALAZINE HCl 20 MG/ML VIAL 5 MG IVPUSH (21:52)
[2021-03-04] MEDS: Heparin Sodium,Porcine 5,000 UNIT/ML VIAL 5000 UNIT SUBCUT ×3 (00:25→23:10)
[2021-03-04 06:52] LABS: Anion Gap 15 (12-20); Blood Urea Nitrogen 27 mg/dL (9-16); Calcium 8.7 mg/dL (8.4-10.2); Carbon Dioxide 21 mmol/L (22-29); Chloride 112 mmol/L (96-108); Estimated Glomerular Filt Rate 50; Glucose Random 106 mg/dL (60-115); Potassium 4.1 mmol/L (3.3-5.1); Sodium 144 mmol/L (135-145)
[2021-03-04 06:59] LABS: Hematocrit 29.4 % (37-47); Hemoglobin 9.4 g/dl (12.0-16.0); Mean Corpuscular Hemoglobin 29.9 pg (27.0-33.0); Mean Corpuscular Volume 93.6 fL (80-98); Mean Platelet Volume 11.6 fL (9.4-12.3); Platelet Count 319 X10*3/uL (160-400); Red Blood Count 3.14 X10*6/uL (4.20-5.50); Red Cell Distribution Width 13.6 % (11.0-16.0); White Blood Count 9.9 X10*3/uL (4.8-10.8)
[2021-03-04 07:21] VITALS: BP 176/81; PULSE 61; RESP 17; TEMP 37.2; O2SAT 95
[2021-03-04 07:48] LABS: Glucose, Whole Blood 105 mg/dL (60-115)
[2021-03-04 07:50] LABS: B Type Natriuretic Peptide 693 pg/mL (<100)
[2021-03-04] MEDS: glipiZIDE 5 MG TABLET 2.5 MG PO ×2 (09:24→17:18)
[2021-03-04] MEDS: NIFEdipine ER 60 MG TAB.ER.24 120 MG PO (09:24)
[2021-03-04] MEDS: Aspirin 81 MG TAB.CHEW PO (09:24)
[2021-03-04] MEDS: Spironolactone 25 MG TABLET PO (09:24)
[2021-03-04] MEDS: hydrALAZINE HCl 50 MG TABLET PO (09:25)
[2021-03-04] MEDS: Ferrous Sulfate 324 MG TABLET.DR PO (09:25)
--- NOTE | 2021-03-04 10:04 | P.PNNP_ITS ---
Subjective Subjective Date of Service: 03/04/21 Interval history: no chest pain or dyspnea feels better BP high again Physical Exam Vital Signs: Vital Signs: Last Vital Signs Temp 98.9 F 03/04/21 07:21 Pulse 61 03/04/21 07:21 Resp 17 03/04/21 07:21 BP 176/81 H 03/04/21 07:21 Pulse Ox 95 03/04/21 07:21 Body Mass Index 20.1 Const: General: cooperative, healthy appearing, comfortable, no acute distress, well developed, alert and awake; No acute distress Nutritional Appearance: average body habitus and well nourished Orientation/consciousness: oriented to person, oriented to place and patient oriented x3 Limitations: no limitations and other limitations (Question if the patient remembers events correctly) HENMT: Head: Yes normal to inspection, Yes normocephalic and Yes atraumatic Ears: hearing grossly normal bilaterally and external ears normal General nose exam: Normal external nose present Face and sinus: Yes normal facial exa m Mouth: Normal oral and palatal mucosa present and oropharynx normal Throat: Yes posterior oropharynx normal Eyes: General: appearance normal, both eyes and all related structures Visual Adam: normal visual adam by confrontation Alignment and Position: alignment normal Periorbital: periorbital findings normal Eyelids: Yes eyelids normal Conjunctivae: conjunctivae normal Sclerae: sclerae normal Corneas: corneas normal Pupils: Equal, round and reactive pupils present and Pupil accommodation reflex normal EOM: EOMs intact bilaterally Direct Ophthalmoscopy: normal light reflex Neck: Neck: Yes normal visual inspection, Yes full ROM, Yes no lymphadenopathy, Yes no meningeal signs, Yes trachea midline and Yes supple Thyroid: Thyroid normal Carotids: normal carotid upstroke and bounding pulses Chest: Chest palpation & inspection: normal inspection of the chest and normal palpation of entire chest wall Resp: Effort & Inspection: normal respiratory effort and able to speak in complete sentences Auscultation: clear to auscultation bilaterally, no crackles, no wheezes and diminished lung sounds Cardio: Jugular venous distension: no JVD Palpation: normal PMI Rate: regular rate Rhythm: regular rhythm Heart sounds: S1 normal heart sound present, S2 normal heart sound present, no gallops, Murmur heart sound present systolic early, III/ and at the right sternal border and no rubs Peripheral pulses: Peripheral pulses 2+ throughout GI: Inspection: Yes normal to inspection Palpation (GI): Soft to palpation, nontender, no guarding, not rigid and No hepatosplenomegaly present Percussion: Yes normal to percussion Auscultation: normal bowel sounds Rectal Exam - Female: deferred : General: Yes no CVA tenderness Back/Spine/Pelvis: Back: no CVA tenderness Cervical Spine: normal cervical lordosis and cervical ROM normal Thoracic/Lumbar Spine: thoracic and lumbar spine normal to inspection Skin: General skin exam: no rashes or lesions noted Lesions: no lesions Rashes: no rashes Wounds: no wounds Neuro: General: oriented to person, oriented to place, patient oriented x3, tone normal, moves all extremities, Normal light touch and pain sensation, no meningeal signs, no focal motor deficits, CN's II-XI intact bilaterally, normal sensation to monofilament and deep tendon reflexes 2+ bilaterally Cranial nerves: Yes CN's II-XII intact bilaterally, Yes Equal, round and reactive pupils present, Yes Bilaterally intact EOM present, Yes Nystagmus not present, Yes Normal facial strength present, Yes Midline tongue present, Yes Normal gag reflex present, Yes Symmetric palate elevation present, Yes Normal hearing present and Yes Ability to bilaterally rotate head present Cognition (Neuro): normal cognition and abnormal cognition Speech: Abnormal speech present and Other speech findings present (Neuro) Motor exam (neuro): 5/5 motor strength present throughout, Pronator motor function not present, no tremor noted, no asterixis, Motor fasciculations not present, Normal motor muscle tone present throughout and Motor abnormalities not present Sensory Exam: Bilaterally intact graphesthesia and Sensory deficit (Neuro) Deep tendon reflexes (DTR's): Right triceps reflex intensity grade: 2+, Left triceps reflex intensity grade: 2+, Rt Biceps (C5, C6): 2+, Left biceps reflex intensity grade: 2+, Right brachioradialis reflex intensity grade: 2+, Left brachioradialis reflex intensity grade: 2+, Right patellar reflex intensity grade: 2+, Left patellar reflex intensity grade: 2+, Right ankle reflex intensity grade: 2+ and Left ankle reflex intensity grade: 2+ Plantar Reflex Responses: downgoing: right, left and bilateral Coordination: [id number] test normal and [id number] test normal Pupils: Normal pupillary reactivity/response: bilateral Extrem: General: Yes normal to inspection, Yes full ROM, Yes normal exam except as noted, Yes no clubbing, cyanosis or edema and Yes no pedal edema Psych: Appearance: grossly normal and well kempt Mental Status: mental sta tus grossly normal Speech and movement: Normal speech and movement present and Clear speech present Affect: normal affect Attitude: cooperative Thought process: Normal thought process present Thought content: Normal thought content present Insight: Other insight findings present (Psych) (Patient may not be recalling events correctly based discussion with [facility]) Objective Data Labs CBC & Chem 7: 03/04/21 05:36 03/04/21 05:36 Labs: Laboratory Results - last 24 hr 03/03/21 03/04/21 03/04/21 12:07 05:36 05:36 WBC 9.9 RBC 3.14 L Hgb 9.4 L Hct 29.4 L MCV 93.6 MCH 29.9 MCHC 32.0 RDW 13.6 Plt Count 319 MPV 11.6 Absolute Nucleated RBC 0.000 Nucleated RBC % (auto) 0.0 Sodium 144 Potassium 4.1 Chloride 112 H Carbon Dioxide 21 L Anion Gap 15 BUN 27 H D Creatinine 1.05 Estim Creat Clear Calc 33.0 Estimated GFR 50 POC Glucose 285 H Random Glucose 106 D Calcium 8.7 B-Natriuretic Peptide 03/04/21 03/04/21 05:36 07:22 WBC RBC Hgb Hct MCV MCH MCHC RDW Plt Count MPV Absolute Nucleated RBC Nucleated RBC % (auto) Sodium Potassium Chloride Carbon Dioxide Anion Gap BUN Creatinine Estim Creat Clear Calc Estimated GFR POC Glucose 105 Random Glucose Calcium B-Natriuretic Peptide 693 H Microbiology Microbiology Results: Microbiology 11/24/20 08:18 Stool Stool Culture - Final 09/21/20 Unknown Urine clean catch - Clean Catch Midstream Urine Culture - Final No growth. Assessment & Plan Assessment and plan (1) HTN (hypertension): Status: Acute (2) Dementia, vascular, mixed: Status: Acute (3) Communicating hydrocephalus: Status: Acute (4) Bradycardia: Status: Acute (5) Neurocognitive disorder: Status: Acute Assessment and Plan: hospital d#[id number] 85yo F with HTN, HLD, DM2, hypothyroidism, CAD s/p PCI. initially admitted with falls, elevated troponin; disposition complicated by cognitive impairment requiring guardianship on 02/26/21 developed hypoxia, dyspnea -> CHF exacerbation with NSTEMI on 03/02/21 had 2 episodes of junctional bradycardia/sinus pause associated with BM and vomiting # sinus pause, junctional bradycardia - likely vasovagal; Cardiology concurs. Beta-derrek d/c'ed. 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 - SCr improved; continue to hold diuresis + enalapril, monitor BMP, avoid nephrotoxins # acute hypoxic RF - resolved # normocytic anemia - likely JI + ACKD, replete Fe IV per Nephrology, tranfused 1u PRBCs yesterday, will give another unit today, monitor H+H # resistant HTN we can do an MRA to r/o TIMMY continue to titrate up spironolactone to 100 would not use hydralazine - continue to monitor BP closely # cognitive impairment - evaluated by psychiatry does need guardianship + awaiting paperwork # DM2 complicated by hypoglycemia - d/c'ed metformin due to worsening renal function, added glipizide, recommend strict diabetic diet # hypothyroidism - continue LT4 # C diff colitis - resolved, s/p 14d of vancomycin treatment # acute grief reaction/depression - due to passing of , seems stable # VTE ppx - UFH Time Spent With Patient Time: : Procedures Date of Service Date of Service: 03/04/21 Progress Note: Quality Stroke Does the patient have a stroke diagnosis?: No
--- NOTE | 2021-03-04 10:41 | HO.PM.IMPN ---
Subjective Subjective Date of Service: 03/04/21 Interval History: no chest pain no dyspnea no edema BP still high Physical Exam Vital Signs: Vital Signs: Last Vital Signs Temp 98.9 F 03/04/21 07:21 Pulse 61 03/04/21 07:21 Resp 17 03/04/21 07:21 BP 176/81 H 03/04/21 07:21 Pulse Ox 95 03/04/21 07:21 Body Mass Index 20.1 Gen: NAD HEENT: sclera anicteric, moist mucus membranes Neck: supple Lungs: clear Heart: regular rate and rhythm, no murmurs, no JVD Abd: soft, non-tender, non-distended Ext: no edema Skin: warm/well-perfused Neuro: alert and oriented x3, no focal findings Psych: impaired insight, restricted affect Objective Data Current Medications Generic Name Dose Route Start Last Admin Trade Name Freq PRN Reason Stop Dose Admin Aspirin 81 mg 02/28/21 09:00 03/04/21 09:24 Aspirin 81 Mg Tab.Chew PO 81 mg DAILY RAGHAVENDRA Administration Atorvastatin Calcium 80 mg 02/27/21 08:00 03/03/21 20:24 Atorvastatin Calcium 80 Mg Tablet PO 80 mg BEDTIME RAGHAVENDRA Administration Ferrous Sulfate 324 mg 02/28/21 09:00 03/04/21 09:25 Ferrous Sulfate 324 Mg Tablet.Dr PO 324 mg DAILY RAGHAVENDRA Administration Glipizide 2.5 mg 02/24/21 17:00 03/04/21 09:24 Glipizide 5 Mg Tablet PO 2.5 mg BIDWM RAGHAVENDRA Administration Guaifenesin/Dextromethorphan 5 ml 03/02/21 23:01 Guaifenesin Dm 100/10/5 Ml 5 Ml Syrup PO Q6H PRN cough Heparin Sodium (Porcine) 5,000 unit 03/01/21 12:00 03/04/21 00:25 Heparin Sodium,Porcine 5,000 Unit/Ml Vial SUBCUT 5,000 unit Q12H RAGHAVENDRA Administration Ferric Sodium Gluconate 270 mls @ 135 mls/hr 03/01/21 09:00 03/04/21 09:52 Complex 250 mg/ Sodium IV 03/04/21 10:59 67.5 mls/hr Chloride DAILY RAGHAVENDRA Administration Levothyroxine Sodium 75 mcg 01/13/21 09:00 03/03/21 05:32 Levothyroxine Sodium 75 Mcg Tablet PO 75 mcg DAILY@0600 [facility] Administration Morphine Sulfate 4 mg 02/26/21 19:12 02/26/21 21:09 Morphine Sulfate 4 Mg/Ml Cartridge IVPUSH 4 mg ONCE PRN Administration Shortness of Breath Nifedipine 120 mg 02/13/21 09:00 03/04/21 09:24 Nifedipine Er 60 Mg Tab.Er.24 PO 120 mg DAILY [facility] Administration Protocol Ondansetron HCl 4 mg 03/02/21 14:26 03/02/21 12:30 Ondansetron Hcl 4 Mg/2 Ml Vial IVPUSH 4 mg Q4H PRN Administration nausea/vomiting Spironolactone 50 mg 03/04/21 18:00 Spironolactone 25 Mg Tablet PO BID@0900,1800 [facility] Protocol Labs CBC & Chem 7: 03/04/21 05:36 03/04/21 05:36 Labs: Laboratory Results - last 24 hr 03/03/21 03/04/21 03/04/21 12:07 05:36 05:36 WBC 9.9 RBC 3.14 L Hgb 9.4 L Hct 29.4 L MCV 93.6 MCH 29.9 MCHC 32.0 RDW 13.6 Plt Count 319 MPV 11.6 Absolute Nucleated RBC 0.000 Nucleated RBC % (auto) 0.0 Sodium 144 Potassium 4.1 Chloride 112 H Carbon Dioxide 21 L Anion Gap 15 BUN 27 H D Creatinine 1.05 Estim Creat Clear Calc 33.0 Estimated GFR 50 POC Glucose 285 H Random Glucose 106 D Calcium 8.7 B-Natriuretic Peptide 03/04/21 03/04/21 05:36 07:22 WBC RBC Hgb Hct MCV MCH MCHC RDW Plt Count MPV Absolute Nucleated RBC Nucleated RBC % (auto) Sodium Potassium Chloride Carbon Dioxide Anion Gap BUN Creatinine Estim Creat Clear Calc Estimated GFR POC Glucose 105 Random Glucose Calcium B-Natriuretic Peptide 693 H Quality Stroke Does the patient have a stroke diagnosis?: No VTE Prior VTE?: No VTE Risk Level:: Medical - moderate - high VTE Device Contraindication: N/A - Device Ordered VTE Drug Contraindication: N/A - Med Ordered Assessment and Plan (1) HTN (hypertension): Status: Acute (2) Dementia, vascular, mixed: Status: Acute (3) Communicating hydrocephalus: Status: Acute (4) Bradycardia: Status: Acute (5) Neurocognitive disorder: Status: Acute Assessment and Plan: hospital d#[id number] 85yo F with HTN, HLD, DM2, hypothyroidism, CAD s/p PCI. initially admitted with falls, elevated troponin; disposition complicated by cognitive impairment requiring guardianship on 02/26/21 developed hypoxia, dyspnea -> CHF exacerbation with NSTEMI on 03/02/21 had 2 episodes of junctional bradycardia/sinus pause associated with BM and vomiting # resistant HTN - continue nifedipine 120mg daily and increase spironolactone to 50 mg bid; d/c hydralazine per Nephrology - Dopplers renal showed medical renal disease + mildly elevated velocity within the proximal left main renal artery that may represent a focal stenosis less than 60%; will obtain MR angio of renal arteries - continue to monitor BP closely # sinus pause, junctional bradycardia - likely vasovagal; Cardiology concurs. 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
[2021-03-04 11:36] LABS: Glucose, Whole Blood 190 mg/dL (60-115)
[2021-03-04] MEDS: Isosorbide Mononitrate 30 MG TAB.ER.24H PO (14:50)
[2021-03-04 15:17] VITALS: BP 189/69; PULSE 63; RESP 16; TEMP 36.6; O2SAT 98
[2021-03-04] MEDS: Spironolactone 25 MG TABLET 50 MG PO (17:17)
[2021-03-04 19:10] VITALS: BP 162/60; PULSE 60; RESP 15; TEMP 36.7; O2SAT 98
[2021-03-04] MEDS: Atorvastatin Calcium 80 MG TABLET PO (20:26)
[2021-03-04 23:29] VITALS: BP 171/63; PULSE 62; RESP 16; TEMP 36.4; O2SAT 94
[2021-03-05] MEDS: Levothyroxine Sodium 75 MCG TABLET PO (05:42)
[2021-03-05 07:49] VITALS: BP 187/86; PULSE 60; RESP 17; TEMP 36.4; O2SAT 97
[2021-03-05] MEDS: glipiZIDE 5 MG TABLET 2.5 MG PO ×2 (08:07→16:48)
[2021-03-05] MEDS: Aspirin 81 MG TAB.CHEW PO (08:07)
[2021-03-05] MEDS: Ferrous Sulfate 324 MG TABLET.DR PO (08:07)
[2021-03-05] MEDS: Isosorbide Mononitrate 30 MG TAB.ER.24H PO (08:08)
[2021-03-05] MEDS: NIFEdipine ER 60 MG TAB.ER.24 120 MG PO (08:08)
[2021-03-05] MEDS: Spironolactone 25 MG TABLET 50 MG PO (08:08)
[2021-03-05] MEDS: Losartan Potassium 25 MG TABLET PO (08:29)
--- NOTE | 2021-03-05 08:36 | PM.PNNEP ---
Subjective Subjective Date of Service: 03/05/21 Interval history: no chest pain no dyspnea no edema BP still high and she is bradycardic Physical Exam Vital Signs: Vital Signs: Last Vital Signs Temp 97.5 F 03/05/21 07:49 Pulse 60 03/05/21 07:49 Resp 17 03/05/21 07:49 BP 187/86 H 03/05/21 07:49 Pulse Ox 97 03/05/21 07:49 Body Mass Index 20.1 Gen: NAD HEENT: sclera anicteric, moist mucus membranes Neck: supple Lungs: clear Heart: regular rate and rhythm, no murmurs, no JVD Abd: soft, non-tender, non-distended Ext: no edema Skin: warm/well-perfused Neuro: alert and oriented x3, no focal findings Psych: impaired insight, restricted affect Objective Data Labs CBC & Chem 7: 03/04/21 05:36 03/04/21 05:36 Labs: Laboratory Results - last 24 hr 03/04/21 11:26 POC Glucose 190 H Microbiology Microbiology Results: Microbiology 11/24/20 08:18 Stool Stool Culture - Final 09/21/20 Unknown Urine clean catch - Clean Catch Midstream Urine Culture - Final No growth. Assessment & Plan Time Spent With Patient Time: 85yo F with HTN, HLD, DM2, hypothyroidism, CAD s/p PCI. initially admitted with falls, elevated troponin; disposition complicated by cognitive impairment requiring guardianship on 02/26/21 developed hypoxia, dyspnea -> CHF exacerbation with NSTEMI on 03/02/21 had 2 episodes of junctional bradycardia/sinus pause associated with BM and vomiting ABELARDO - Resolved CKD stage 3 at baseline Uncontrolled HTN - renovascular disease Siinus pause, junctional bradycardia NSTEMI Acute/chronic HFpEF MRA to r/o TIMMY Spironolactone lower to 25 mg daiy Add Losartan 25 mg daily Continue Nifidipine Will consider a clonidine patch but it can cause low pulse rate Will follow Procedures Date of Service Date of Service: 03/05/21 Progress Note: Quality Stroke Does the patient have a stroke diagnosis?: No
--- NOTE | 2021-03-05 11:06 | P.PNIM_ITS ---
Subjective Subjective Date of Service: 03/05/21 <Winifred Douglas NP - Last Filed: 03/05/21 11:22> 03/06/21 <Dany Blevins MD - Last Filed: 03/06/21 16:11> Interval History: Follow up secondary MS, hypertention feels fine no pain resting in bed <Winifred Douglas NP - Last Filed: 03/05/21 11:22> Physical Exam Vital Signs: Vital Signs: Last Vital Signs Temp 97.5 F 03/05/21 07:49 Pulse 60 03/05/21 07:49 Resp 17 03/05/21 07:49 BP 187/86 H 03/05/21 07:49 Pulse Ox 97 03/05/21 07:49 Body Mass Index 20.1 <Winifred Douglas NP - Last Filed: 03/05/21 11:22> Appearing in no acute distress lung sounds are clear to auscultation heart regular rate rhythm, clear S1, S2 positive bowel sounds, abdomen is soft, nontender neuro patient is alert x3, no focal deficits <Winifred Douglas NP - Last Filed: 03/05/21 11:22> Objective Data Current Medications Generic Name Dose Route Start Last Admin Trade Name Freq PRN Reason Stop Dose Admin Aspirin 81 mg 02/28/21 09:00 03/05/21 08:07 Aspirin 81 Mg Tab.Chew PO 81 mg DAILY RAGHAVENDRA Administration Atorvastatin Calcium 80 mg 02/27/21 08:00 03/04/21 20:26 Atorvastatin Calcium 80 Mg Tablet PO 80 mg BEDTIME RAGHAVENDRA Administration Ferrous Sulfate 324 mg 02/28/21 09:00 03/05/21 08:07 Ferrous Sulfate 324 Mg Tablet. PO 324 mg DAILY RAGHAVENDRA Administration Glipizide 2.5 mg 02/24/21 17:00 03/05/21 08:07 Glipizide 5 Mg Tablet PO 2.5 mg BIDWM RAGHAVENDRA Administration Guaifenesin/Dextromethorphan 5 ml 03/02/21 23:01 Guaifenesin Dm 100/10/5 Ml 5 Ml Syrup PO Q6H PRN cough Heparin Sodium (Porcine) 5,000 unit 03/01/21 12:00 03/04/21 23:10 Heparin Sodium,Porcine 5,000 Unit/Ml Vial SUBCUT 5,000 unit Q12H RAGHAVENDRA Administration Isosorbide Mononitrate 30 mg 03/04/21 14:30 03/05/21 08:08 Isosorbide Mononitrate 30 Mg Tab.Er.24h PO 30 mg DAILY RAGHAVENDRA Administration Protocol Levothyroxine Sodium 75 mcg 01/13/21 09:00 03/05/21 05:42 Levothyroxine Sodium 75 Mcg Tablet PO 75 mcg DAILY@0600 RAGHAVENDRA Administration Losartan Potassium 25 mg 03/05/21 09:00 03/05/21 08:29 Losartan Potassium 25 Mg Tablet PO 25 mg DAILY RAGHAVENDRA Administration Protocol Morphine Sulfate 4 mg 02/26/21 19:12 02/26/21 21:09 Morphine Sulfate 4 Mg/Ml Cartridge IVPUSH 4 mg ONCE PRN Administration Shortness of Breath Nifedipine 120 mg 02/13/21 09:00 03/05/21 08:08 Nifedipine Er 60 Mg Tab.Er.24 PO 120 mg DAILY RAGHAVENDRA Administration Protocol Ondansetron HCl 4 mg 03/02/21 14:26 03/02/21 12:30 Ondansetron Hcl 4 Mg/2 Ml Vial IVPUSH 4 mg Q4H PRN Administration nausea/vomiting Spironolactone 25 mg 03/05/21 09:00 03/05/21 08:27 Spironolactone 25 Mg Tablet PO Not Given DAILY [facility] Protocol <Winifred Douglas NP - Last Filed: 03/05/21 11:22> Labs CBC & Chem 7: : 03/04/21 05:36 03/04/21 05:36 <Winifred Douglas NP - Last Filed: 03/05/21 11:22> Labs: Laboratory Results - last 24 hr 03/04/21 11:26 POC Glucose 190 H <Winifred Douglas NP - Last Filed: 03/05/21 11:22> Microbiology Microbiology Results: Microbiology 11/24/20 08:18 Stool Stool Culture - Final 09/21/20 Unknown Urine clean catch - Clean Catch Midstream Urine Culture - Final No growth. <Winifred Douglas NP - Last Filed: 03/05/21 11:22> Progress Note: A&P (1) CHF (congestive heart failure): Status: Acute <Winifred Douglas NP - Last Filed: 03/05/21 11:22> Assessment and Plan: 85yo F with HTN, HLD, DM2, hypothyroidism, CAD s/p PCI. initially admitted with falls, elevated troponin; disposition complicated by cognitive impairment requiring guardianship on 02/26/21 developed hypoxia, dyspnea -> CHF exacerbation with NSTEMI on 03/02/21 had 2 episodes of junctional bradycardi a/sinus pause associated with BM and vomiting # Resistant HTN - Discussed with Nephrology with rec to add losartan decrease aldactone to 25 mg daily - continue nifedipine 120mg daily, d/c hydralazine per Nephrology - Dopplers renal showed medical renal disease + mildly elevated velocity within the proximal left main renal artery that may represent a focal stenosis less than 60%; will obtain MR angio of renal arteries - continue to monitor BP closely # sinus pause, junctional bradycardia - likely vasovagal; Cardiology concurs. 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 Blevins <Winifred Douglas NP - Last Filed: 03/05/21 11:22> Quality Stroke Does the patient have a stroke diagnosis?: No <Winifred Douglas NP - Last Filed: 03/05/21 11:22> VTE Prior VTE?: No <Winifred Douglas NP - Last Filed: 03/05/21 11:22> VTE Risk Level:: Medical - moderate - high <Winifred Douglas NP - Last Filed: 03/05/21 11:22> VTE Device Contraindication: N/A - Device Ordered <Winifred Douglas NP - Last Filed: 03/05/21 11:22> VTE Drug Contraindication: N/A - Med Ordered <Winifred Douglas NP - Last Filed: 03/05/21 11:22>
--- NOTE | 2021-03-05 13:08 | MHC.CM.PN ---
NURSE DIRECTIONAL BORE OPERATOR NOTE ELECTRONIC MEDICAL RECORD REVIEWED ALONG WITH CASE DISCUSSED ON MULTIPLE DISCIPLINARY ROUNDS PER DOCUMENTATION ; S/P 02/26/21 DVELOPED HYPOXIA, DYSPNEA, CHF EXACERBATIONS WITH NSTEMI REQUIRED 2 LITERS OF OXYGEN FOR 24 HRS . 03/02/21 2 EPISODES OF JUNCTIONAL RHYTHM (ADD LOSARTON, DECREASE Aldactone,/ cont nifedipine, d/c hydralazine / RENAL DOPPLERS MAY REPRESENT RENAL STENOSIS- FOR MRI ANGIO OF RENAL ARTERIES , ALSO D/C METRORMIN AND ADDED GLIPIZIDE SELLING UNDERWRITER TO CONTINUE TO FOLLOW AND UPDATE CLINICALY TO INTERESTED FACILITIES
[2021-03-05 15:46] VITALS: BP 179/69; PULSE 62; RESP 12; TEMP 36.5; O2SAT 96
[2021-03-05] MEDS: Atorvastatin Calcium 80 MG TABLET PO (20:56)
[2021-03-05] MEDS: Heparin Sodium,Porcine 5,000 UNIT/ML VIAL 5000 UNIT SUBCUT (23:28)
[2021-03-06 00:32] VITALS: BP 168/73; PULSE 64; RESP 16; TEMP 36.1; O2SAT 98
[2021-03-06] MEDS: Levothyroxine Sodium 75 MCG TABLET PO (05:46)
[2021-03-06 07:38] VITALS: BP 168/89; PULSE 60; RESP 16; TEMP 36.4; O2SAT 96
[2021-03-06] MEDS: Aspirin 81 MG TAB.CHEW PO (08:44)
[2021-03-06] MEDS: glipiZIDE 5 MG TABLET 2.5 MG PO ×2 (08:44→16:49)
[2021-03-06] MEDS: Isosorbide Mononitrate 30 MG TAB.ER.24H PO (08:44)
[2021-03-06] MEDS: NIFEdipine ER 60 MG TAB.ER.24 120 MG PO (08:44)
[2021-03-06] MEDS: Losartan Potassium 25 MG TABLET PO ×2 (08:44→12:35)
[2021-03-06] MEDS: Ferrous Sulfate 324 MG TABLET.DR PO (08:44)
[2021-03-06] MEDS: Spironolactone 25 MG TABLET PO (08:49)
[2021-03-06 11:34] VITALS: BP 179/76; PULSE 61; RESP 18; TEMP 36.1; O2SAT 96
--- NOTE | 2021-03-06 11:36 | P.PNIM_ITS ---
Subjective Subjective Date of Service: 03/06/21 Interval History: Follow up hypertension BP still high patient asymptomatic sitting in bed no acute complaints Physical Exam Vital Signs: Vital Signs: Last Vital Signs Temp 97.6 F 03/06/21 07:38 Pulse 60 03/06/21 07:38 Resp 16 03/06/21 07:38 BP 168/89 H 03/06/21 07:38 Pulse Ox 96 03/06/21 07:38 Body Mass Index 20.1 Appearing in no acute distress lung sounds are clear to auscultation heart regular rate rhythm, clear S1, S2 positive bowel sounds, abdomen is soft, nontender neuro patient is alert x3, no focal deficits Objective Data Current Medications Generic Name Dose Route Start Last Admin Trade Name Freq PRN Reason Stop Dose Admin Aspirin 81 mg 02/28/21 09:00 03/06/21 08:44 Aspirin 81 Mg Tab.Chew PO 81 mg DAILY RAGHAVENDRA Administration Atorvastatin Calcium 80 mg 02/27/21 08:00 03/05/21 20:56 Atorvastatin Calcium 80 Mg Tablet PO 80 mg BEDTIME RAGHAVENDRA Administration Ferrous Sulfate 324 mg 02/28/21 09:00 03/06/21 08:44 Ferrous Sulfate 324 Mg Tablet.Dr PO 324 mg DAILY RAGHAVENDRA Administration Glipizide 2.5 mg 02/24/21 17:00 03/06/21 08:44 Glipizide 5 Mg Tablet PO 2.5 mg BIDWM RAGHAVENDRA Administration Guaifenesin/Dextromethorphan 5 ml 03/02/21 23:01 Guaifenesin Dm 100/10/5 Ml 5 Ml Syrup PO Q6H PRN cough Heparin Sodium (Porcine) 5,000 unit 03/01/21 12:00 03/05/21 23:28 Heparin Sodium,Porcine 5,000 Unit/Ml Vial SUBCUT 5,000 unit Q12H RAGHAVENDRA Administration Isosorbide Mononitrate 30 mg 03/04/21 14:30 03/06/21 08:44 Isosorbide Mononitrate 30 Mg Tab.Er.24h PO 30 mg DAILY RAGHAVENDRA Administration Protocol Levothyroxine Sodium 75 mcg 01/13/21 09:00 03/06/21 05:46 Levothyroxine Sodium 75 Mcg Tablet PO 75 mcg DAILY@0600 RAGHAVENDRA Administration Losartan Potassium 25 mg 03/05/21 09:00 03/06/21 08:44 Losartan Potassium 25 Mg Tablet PO 25 mg DAILY RAGHAVENDRA Administration Protocol Morphine Sulfate 4 mg 02/26/21 19:12 02/26/21 21:09 Morphine Sulfate 4 Mg/Ml Cartridge IVPUSH 4 mg ONCE PRN Administration Shortness of Breath Nifedipine 120 mg 02/13/21 09:00 03/06/21 08:44 Nifedipine Er 60 Mg Tab.Er.24 PO 120 mg DAILY RAGHAVENDRA Administration Protocol Ondansetron HCl 4 mg 03/02/21 14:26 03/02/21 12:30 Ondansetron Hcl 4 Mg/2 Ml Vial IVPUSH 4 mg Q4H PRN Administration nausea/vomiting Spironolactone 25 mg 03/05/21 09:00 03/06/21 08:49 Spironolactone 25 Mg Tablet PO 25 mg DAILY RAGHAVENDRA Administration Protocol Labs CBC & Chem 7: 03/04/21 05:36 03/04/21 05:36 Microbiology Microbiology Results: Microbiology 11/24/20 08:18 Stool Stool Culture - Final 09/21/20 Unknown Urine clean catch - Clean Catch Midstream Urine Culture - Final No growth. Progress Note: A&P (1) CHF (congestive heart failure): Status: Acute (2) Dementia, vascular, mixed: Status: Acute Assessment and Plan: 85yo F with HTN, HLD, DM2, hypothyroidism, CAD s/p PCI. initially admitted with falls, elevated troponin; disposition complicated by cognitive impairment requiring guardianship on 02/26/21 developed hypoxia, dyspnea -> CHF exacerbation with NSTEMI on 03/02/21 had 2 episodes of junctional bradycardia/sinus pause associated with BM and vomiting # Resistant HTN - Discussed with Nephrology with rec to add losartan decrease aldactone to 25 mg daily - continue nifedipine 120mg daily, d/c hydralazine per Nephrology - Dopplers renal showed medical renal disease + mildly elevated velocity within the proximal left main renal artery that may represent a focal stenosis less than 60%; - continue to monitor BP closely - MR angio of kidneys nondiagnostic for renal artery stenosis # sinus pause, junctional bradycardia. No further episodes - likely vasovagal; Cardiology concurs. Beta-derrek d/c'ed and this issue has resolved 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 2 ID from CHF # acute/chronic HFpEF - now euvolemic # ABELARDO/CKD3-4 - SCr improved; monitor BMP, avoid nephrotoxins # acute hypoxic RF - resolved # normocytic anemia - likely JI + ACKD, repleted Fe IV and transfused 2u pRBCs and Hb improved # cognitive impairment - evaluated by psychiatry and does need guardianship + awaiting paperwork # DM2 complicated by hypoglycemia - d/c'ed metformin due to worsening renal function, added glipizide, recommend strict diabetic diet # hypothyroidism - continue LT4 # C diff colitis - resolved, s/p 14d of vancomycin treatment # acute grief reaction/depression - due to passing of , seems stable # VTE ppx - UFH Attending Dr. Blevins Quality Stroke Does the patient have a stroke diagnosis?: No VTE Prior VTE?: No VTE Risk Level:: Medical - moderate - high VTE Device Contraindication: N/A - Device Ordered VTE Drug Contraindication: N/A - Med Ordered
[2021-03-06] MEDS: Heparin Sodium,Porcine 5,000 UNIT/ML VIAL 5000 UNIT SUBCUT (12:36)
--- NOTE | 2021-03-06 12:38 | PM.PNNEP ---
Subjective Subjective Date of Service: 03/06/21 Interval history: Follow up hypertension BP still high patient asymptomatic sitting in bed no acute complaints Physical Exam Vital Signs: Vital Signs: Last Vital Signs Temp 96.9 F 03/06/21 11:34 Pulse 61 03/06/21 11:34 Resp 18 03/06/21 11:34 BP 179/76 H 03/06/21 11:34 Pulse Ox 96 03/06/21 11:34 Body Mass Index 20.1 Appearing in no acute distress lung sounds are clear to auscultation heart regular rate rhythm, clear S1, S2 positive bowel sounds, abdomen is soft, nontender neuro patient is alert x3, no focal deficits Objective Data Labs CBC & Chem 7: 03/04/21 05:36 03/04/21 05:36 Microbiology Microbiology Results: Microbiology 11/24/20 08:18 Stool Stool Culture - Final 09/21/20 Unknown Urine clean catch - Clean Catch Midstream Urine Culture - Final No growth. Assessment & Plan Time Spent With Patient Time: ABELARDO - Resolved CKD stage 3 at baseline Uncontrolled HTN - renovascular disease Siinus pause, junctional bradycardia NSTEMI Acute/chronic HFpEF MRA to r/o TIMMY- not an adequate study Spironolactone lower to 25 mg daiy Increased Losartan to 50 mg daily Continue Nifidipine Started clonidine patch # 1 _ watch pulse rate thx Total time spent is greater than 50% in coordination of care (as documented) at patient's floor/unit and/or counseling patient: Procedures Date of Service Date of Service: 03/06/21 Progress Note: Quality Stroke Does the patient have a stroke diagnosis?: No
[2021-03-06 15:33] VITALS: BP 179/80; PULSE 62; RESP 14; TEMP 36.4; O2SAT 96
[2021-03-06] MEDS: Atorvastatin Calcium 80 MG TABLET PO (21:54)
[2021-03-06 23:57] VITALS: BP 150/60; PULSE 54; RESP 18; TEMP 36.6; O2SAT 95
[2021-03-07] VITALS (9 sets, daily range): BP systolic 129–190; BP diastolic 60–78; PULSE 56–62; RESP 16–18; TEMP 36.5–36.8; O2SAT 92–97
[2021-03-07] MEDS: Heparin Sodium,Porcine 5,000 UNIT/ML VIAL 5000 UNIT SUBCUT ×2 (01:17→12:37)
[2021-03-07] MEDS: Levothyroxine Sodium 75 MCG TABLET PO (06:33)
[2021-03-07 06:59] LABS: Anion Gap 13 (12-20); Blood Urea Nitrogen 26 mg/dL (9-16); Calcium 8.5 mg/dL (8.4-10.2); Carbon Dioxide 25 mmol/L (22-29); Chloride 109 mmol/L (96-108); Creatinine Clr Calc Pharmacy 31.5; Estimated Glomerular Filt Rate 47; Glucose Random 143 mg/dL (60-115); Potassium 3.7 mmol/L (3.3-5.1); Sodium 143 mmol/L (135-145)
[2021-03-07] MEDS: Ferrous Sulfate 324 MG TABLET.DR PO (09:09)
[2021-03-07] MEDS: Aspirin 81 MG TAB.CHEW PO (09:09)
[2021-03-07] MEDS: glipiZIDE 5 MG TABLET 2.5 MG PO ×2 (09:09→16:33)
[2021-03-07] MEDS: Spironolactone 25 MG TABLET PO (09:10)
[2021-03-07] MEDS: Losartan Potassium 50 MG TABLET PO (09:13)
[2021-03-07] MEDS: NIFEdipine ER 60 MG TAB.ER.24 120 MG PO (09:15)
[2021-03-07] MEDS: Isosorbide Mononitrate 30 MG TAB.ER.24H PO (09:15)
--- NOTE | 2021-03-07 13:22 | MHC.CM.PN ---
NURSE DIRECTOR OF CORPORATE COMMUNICATIONS NOTE ELECTRONIC MEDICAL RECORD REVIEWED , CASE DISCUSSED WITH HOSPITALIST N.P.. PATIENTS BLOOD PRESSURE CONTINUES TO REMAIN HIGH DESPITE MEDICINE CHANGES PATIENT HAS NOW BEEN ACUTE INPATIENT SINCE 02/27/21 , I ASKED IF SHE IS CONSIDERED TO MEDICALLY STABLE FOR DISCHARGED , AND WAS TOLD NOT READY TODAy byut maybe 1-2 days. discussed with field case manager director and will make referral TO [facility] WITH [facility] . PATIENT HAS NEVER TRIED TO WANDER OFF THE FLOOR. PER DOCUMENTAION FROM PHYSICIANS NOTES PATIENT HAS DIAGNOSIS ( HX -HTN-HLD,DM,HYPOTHYROIDISM,CAD S/P PCI INITIALLY ADMITTED WITH FALLS ELEVATED TROPONIN DISPOSITION COMPLICATED BY COGNITIVE IMPAIRMENT EVALUATE BY PSYCHIATRY [facility] VASCULAR , REQUIRING CONSERVATOR SHIP[ AND GUARDIAN SHIP 02/26/21 DEVELOPED HYPOXIA,DYSPNEA,CHF EXACERBATION WITH NSTEMI, WITH SOME CARDIAC RHYTHM CHANGES, RESISTANT HYPERTENSION) DISCHARGE PLANNING NOW THAT PATIENT HAS BEEN ACUTE INPATIENT SINCE 02/27/21 LOOKING TO SECURE [facility] FAC[facility] WITH [facility] UTILIZING HER MEDICARE BENEFITS, PER HOSPITALIST N.P SHE IS NOT MEDICALLY STABLE TODAY FOR DISCHARGE BUT POSSIBLY 1-2 DAYS , [facility] , [facility], [facility] SKILLED [facility] [address] APPOINTED CONSERVATOR AND GUARDIAN WORKING ON Fixational APPLICATION [phone] ,TELEPHONE CALL MADE WITH UPDATES
--- NOTE | 2021-03-07 15:04 | PM.IMPN ---
Subjective Subjective Date of Service: 03/07/21 Interval History: Follow-up uncontrolled hypertension Asymptomatic Sitting up in bed Physical Exam Vital Signs: Vital Signs: Last Vital Signs Temp 98.2 F 03/07/21 07:30 Pulse 57 03/07/21 13:20 Resp 16 03/07/21 07:30 BP 164/72 H 03/07/21 13:20 Pulse Ox 92 03/07/21 07:30 Body Mass Index 20.1 Appearing in no acute distress lung sounds are clear to auscultation heart regular rate rhythm, clear S1, S2 positive bowel sounds, abdomen is soft, nontender neuro patient is alert x3, no focal deficits Objective Data Current Medications Generic Name Dose Route Start Last Admin Trade Name Freq PRN Reason Stop Dose Admin Aspirin 81 mg 02/28/21 09:00 03/07/21 09:09 Aspirin 81 Mg Tab.Chew PO 81 mg DAILY RAGHAVENDRA Administration Atorvastatin Calcium 80 mg 02/27/21 08:00 03/06/21 21:54 Atorvastatin Calcium 80 Mg Tablet PO 80 mg BEDTIME RAGHAVENDRA Administration Clonidine 0.1 mg 03/13/21 09:00 Clonidine 0.1 Mg Patch.Tdwk TRANSDERMA Tu@0900 [facility] Protocol Ferrous Sulfate 324 mg 02/28/21 09:00 03/07/21 09:09 Ferrous Sulfate 324 Mg Tablet. PO 324 mg DAILY RAGHAVENDRA Administration Glipizide 2.5 mg 02/24/21 17:00 03/07/21 09:09 Glipizide 5 Mg Tablet PO 2.5 mg BIDWM RAGHAVENDRA Administration Guaifenesin/Dextromethorphan 5 ml 03/02/21 23:01 Guaifenesin Dm 100/10/5 Ml 5 Ml Syrup PO Q6H PRN cough Heparin Sodium (Porcine) 5,000 unit 03/01/21 12:00 03/07/21 12:37 Heparin Sodium,Porcine 5,000 Unit/Ml Vial SUBCUT 5,000 unit Q12H RAGHAVENDRA Administration Isosorbide Mononitrate 30 mg 03/04/21 14:30 03/07/21 09:15 Isosorbide Mononitrate 30 Mg Tab.Er.24h PO 30 mg DAILY RAGHAVENDRA Administration Protocol Levothyroxine Sodium 75 mcg 01/13/21 09:00 03/07/21 06:33 Levothyroxine Sodium 75 Mcg Tablet PO 75 mcg DAILY@0600 RAGHAVENDRA Administration Losartan Potassium 50 mg 03/07/21 09:00 03/07/21 09:13 Losartan Potassium 50 Mg Tablet PO 50 mg DAILY RAGHAVENDRA Administration Protocol Morphine Sulfate 4 mg 02/26/21 19:12 02/26/21 21:09 Morphine Sulfate 4 Mg/Ml Cartridge IVPUSH 4 mg ONCE PRN Administration Shortness of Breath Nifedipine 120 mg 02/13/21 09:00 03/07/21 09:15 Nifedipine Er 60 Mg Tab.Er.24 PO 120 mg DAILY RAGHAVENDRA Administration Protocol Ondansetron HCl 4 mg 03/02/21 14:26 03/02/21 12:30 Ondansetron Hcl 4 Mg/2 Ml Vial IVPUSH 4 mg Q4H PRN Administration nausea/vomiting Spironolactone 25 mg 03/05/21 09:00 03/07/21 09:10 Spironolactone 25 Mg Tablet PO 25 mg DAILY RAGHAVENDRA Administration Protocol Labs CBC & Chem 7: 03/04/21 05:36 03/07/21 05:48 Labs: Laboratory Results - last 24 hr 03/07/21 05:48 Anion Gap 13 Estim Creat Clear Calc 31.5 Estimated GFR 47 Random Glucose 143 H Calcium 8.5 Microbiology Microbiology Results: Microbiology 11/24/20 08:18 Stool Stool Culture - Final 09/21/20 Unknown Urine clean catch - Clean Catch Midstream Urine Culture - Final No growth. Progress Note: A&P (1) CHF (congestive heart failure): Status: Acute Assessment and Plan: 5yo F with HTN, HLD, DM2, hypothyroidism, CAD s/p PCI. initially admitted with falls, elevated troponin; disposition complicated by cognitive impairment requiring guardianship on 02/26/21 developed hypoxia, dyspnea -> CHF exacerbation with NSTEMI on 03/02/21 had 2 episodes of junctional bradycardia/sinus pause associated with BM and vomiting # Resistant HTN - Discussed with Nephrology will increase Losartan to 100mg and add hydralazine 25mg TID, clonidine patch also added - continue nifedipine 120mg daily - Dopplers renal showed medical renal disease + mildly elevated velocity within the proximal left main renal artery that may represent a focal stenosis less than 60%; - MR angio of kidneys nondiagnostic for renal artery stenosis # sinus pause, junctional bradycardia. No further episodes - likely vasovagal; Cardiology concurs. Beta-derrek d/c'ed and this issue has resolved # NSTEMI - medically managed with enoxaparin [renally dosed] x48h, ASA, statin, b-derrek; per Cardiology likely type 2 [place] from CHF # acute/chronic HFpEF - now euvolemic # ABELARDO/CKD3-4 - SCr improved; monitor BMP, avoid nephrotoxins # acute hypoxic RF - resolved # normocytic anemia - likely JI + ACKD, repleted Fe IV and transfused 2u pRBCs and Hb improved # cognitive impairment - evaluated by psychiatry and does need guardianship + awaiting paperwork # DM2 complicated by hypoglycemia - d/c'ed metformin due to worsening renal function, added glipizide, recommend strict diabetic diet # hypothyroidism - continue LT4 # C diff colitis - resolved, s/p 14d of vancomycin treatment # acute grief reaction/depression - due to passing of , seems stable # VTE ppx - UFH Full code Attending Dr. Blevins Quality Stroke Does the patient have a stroke diagnosis?: No VTE Prior VTE?: No VTE Risk Level:: Medical - moderate - high VTE Device Contraindication: N/A - Device Ordered VTE Drug Contraindication: N/A - Med Ordered
--- NOTE | 2021-03-07 17:24 | PC.NURSE ---
0922- BP 190/78 manually, pulse 60. Pt asymptomatic. Pt given BP meds per EMAR. Winifred Douglas [employer] made aware. No new orders at this time.
--- NOTE | 2021-03-07 18:55 | PM.PNNEP ---
Subjective Subjective Date of Service: 03/07/21 Interval history: Follow-up uncontrolled hypertension Asymptomatic Sitting up in bed Physical Exam Vital Signs: Vital Signs: Last Vital Signs Temp 97.7 F 03/07/21 15:12 Pulse 62 03/07/21 15:28 Resp 16 03/07/21 15:12 BP 138/65 03/07/21 15:28 Pulse Ox 97 03/07/21 15:12 Body Mass Index 20.1 Appearing in no acute distress lung sounds are clear to auscultation heart regular rate rhythm, clear S1, S2 positive bowel sounds, abdomen is soft, nontender neuro patient is alert x3, no focal deficits Objective Data Labs CBC & Chem 7: 03/04/21 05:36 03/07/21 05:48 Labs: Laboratory Results - last 24 hr 03/07/21 05:48 Sodium 143 Potassium 3.7 Chloride 109 H Carbon Dioxide 25 Anion Gap 13 BUN 26 H Creatinine 1.10 Estim Creat Clear Calc 31.5 Estimated GFR 47 Random Glucose 143 H Calcium 8.5 Microbiology Microbiology Results: Microbiology 11/24/20 08:18 Stool Stool Culture - Final 09/21/20 Unknown Urine clean catch - Clean Catch Midstream Urine Culture - Final No growth. Assessment & Plan Time Spent With Patient Time: ABELARDO - Resolved CKD stage 3 at baseline Uncontrolled HTN - renovascular disease Siinus pause, junctional bradycardia NSTEMI Acute/chronic HFpEF MRA to r/o TIMMY- not an adequate study Spironolactone 25 mg daiy Increased Losartan to 100 mg daily Continue Nifidipine On clonidine patch # 1 _ watch pulse rate Hydralazine 25 mg TID d/w medical team thx Total time spent is greater than 50% in coordination of care (as documented) at patient's floor/unit and/or counseling patient: Procedures Date of Service Date of Service: 03/07/21 Progress Note: Quality Stroke Does the patient have a stroke diagnosis?: No
[2021-03-07] MEDS: Atorvastatin Calcium 80 MG TABLET PO (22:07)
[2021-03-07] MEDS: hydrALAZINE HCl 25 MG TABLET PO (22:07)
[2021-03-08] VITALS (8 sets, daily range): BP systolic 153–198; BP diastolic 49–82; PULSE 58–65; RESP 16–18; TEMP 36.1–36.4; O2SAT 92–98
[2021-03-08] MEDS: Levothyroxine Sodium 75 MCG TABLET PO (06:25)
[2021-03-08 07:22] LABS: Anion Gap 13 (12-20); Blood Urea Nitrogen 24 mg/dL (9-16); Calcium 8.5 mg/dL (8.4-10.2); Carbon Dioxide 25 mmol/L (22-29); Chloride 109 mmol/L (96-108); Creatinine Clr Calc Pharmacy 35.4; Estimated Glomerular Filt Rate 54; Glucose Random 127 mg/dL (60-115); Potassium 3.8 mmol/L (3.3-5.1); Sodium 143 mmol/L (135-145)
[2021-03-08] MEDS: glipiZIDE 5 MG TABLET 2.5 MG PO ×2 (08:48→17:50)
[2021-03-08] MEDS: NIFEdipine ER 60 MG TAB.ER.24 120 MG PO (08:48)
[2021-03-08] MEDS: hydrALAZINE HCl 25 MG TABLET PO (08:49)
[2021-03-08] MEDS: Isosorbide Mononitrate 30 MG TAB.ER.24H PO (08:49)
[2021-03-08] MEDS: Ferrous Sulfate 324 MG TABLET.DR PO (08:50)
[2021-03-08] MEDS: Aspirin 81 MG TAB.CHEW PO (08:50)
[2021-03-08] MEDS: Spironolactone 25 MG TABLET PO (08:50)
[2021-03-08] MEDS: Losartan Potassium 50 MG TABLET 100 MG PO (09:11)
--- NOTE | 2021-03-08 11:20 | P.PNIM_ITS ---
Subjective Subjective Date of Service: 03/08/21 Interval History: Seen and examined this morning No complaints Wants to go home Physical Exam Vital Signs: Vital Signs: Last Vital Signs Temp 97.6 F 03/08/21 08:00 Pulse 65 03/08/21 09:11 Resp 18 03/08/21 08:00 BP 198/82 H 03/08/21 09:11 Pulse Ox 92 03/08/21 08:00 Body Mass Index 20.1 Const: General: alert and awake Nutritional Appearance: well nourished HENMT: Head: Yes normocephalic and Yes atraumatic Eyes: Sclerae: sclerae normal Chest: Chest palpation & inspection: normal inspection of the chest Resp: Effort & Inspection: normal respiratory effort and no respiratory distress Cardio: Rate: regular rate Rhythm: regular rhythm GI: Palpation (GI): Soft to palpation and nontender Neuro: Cranial nerves: Yes CN's II-XII intact bilaterally and Yes Bilaterally intact EOM present Objective Data Current Medications Generic Name Dose Route Start Last Admin Trade Name Sachaq PRN Reason Stop Dose Admin Aspirin 81 mg 02/28/21 09:00 03/08/21 08:50 Aspirin 81 Mg Tab.Chew PO 81 mg DAILY RAGHAVENDRA Administration Atorvastatin Calcium 80 mg 02/27/21 08:00 03/07/21 22:07 Atorvastatin Calcium 80 Mg Tablet PO 80 mg BEDTIME RAGHAVENDRA Administration Clonidine 0.1 mg 03/13/21 09:00 Clonidine 0.1 Mg Patch.Tdwk TRANSDERMA Tu@0900 [facility] Protocol Ferrous Sulfate 324 mg 02/28/21 09:00 03/08/21 08:50 Ferrous Sulfate 324 Mg Tablet.Dr PO 324 mg DAILY RAGHAVENDRA Administration Glipizide 2.5 mg 02/24/21 17:00 03/08/21 08:48 Glipizide 5 Mg Tablet PO 2.5 mg BIDWM RAGHAVENDRA Administration Guaifenesin/Dextromethorphan 5 ml 03/02/21 23:01 Guaifenesin Dm 100/10/5 Ml 5 Ml Syrup PO Q6H PRN cough Heparin Sodium (Porcine) 5,000 unit 03/01/21 12:00 03/08/21 01:02 Heparin Sodium,Porcine 5,000 Unit/Ml Vial SUBCUT Not Given Q12H RAGHAVENDRA Hydralazine HCl 25 mg 03/07/21 21:00 03/08/21 08:49 Hydralazine Hcl 25 Mg Tablet PO 25 mg TID RAGHAVENDRA Administration Protocol Isosorbide Mononitrate 30 mg 03/04/21 14:30 03/08/21 08:49 Isosorbide Mononitrate 30 Mg Tab.Er.24h PO 30 mg DAILY RAGHAVENDRA Administration Protocol Levothyroxine Sodium 75 mcg 01/13/21 09:00 03/08/21 06:25 Levothyroxine Sodium 75 Mcg Tablet PO 75 mcg DAILY@0600 RAGHAVENDRA Administration Losartan Potassium 100 mg 03/08/21 09:00 03/08/21 09:11 Losartan Potassium 50 Mg Tablet PO 100 mg DAILY [facility] Administration Protocol Nifedipine 120 mg 02/13/21 09:00 03/08/21 08:48 Nifedipine Er 60 Mg Tab.Er.24 PO 120 mg DAILY [facility] Administration Protocol Ondansetron HCl 4 mg 03/02/21 14:26 03/02/21 12:30 Ondansetron Hcl 4 Mg/2 Ml Vial IVPUSH 4 mg Q4H PRN Administration nausea/vomiting Spironolactone 25 mg 03/05/21 09:00 03/08/21 08:50 Spironolactone 25 Mg Tablet PO 25 mg DAILY [facility] Administration Protocol Labs CBC & Chem 7: 03/04/21 05:36 03/08/21 05:57 Labs: Laboratory Results - last 24 hr 03/08/21 05:57 Sodium 143 Potassium 3.8 Chloride 109 H Carbon Dioxide 25 Anion Gap 13 BUN 24 H Creatinine 0.98 Estim Creat Clear Calc 35.4 Estimated GFR 54 Random Glucose 127 H Calcium 8.5 Quality Stroke Does the patient have a stroke diagnosis?: No VTE Prior VTE?: No VTE Risk Level:: Medical - moderate - high VTE Device Contraindication: N/A - Device Ordered VTE Drug Contraindication: N/A - Med Ordered Assessment and Plan (1) CHF (congestive heart failure): Status: Acute Assessment and Plan: 5yo F with HTN, HLD, DM2, hypothyroidism, CAD s/p PCI. initially admitted with falls, elevated troponin; disposition complicated by cognitive impairment [facility]21 developed hypoxia, dyspnea -> CHF exacerbation with NSTEMI on 03/02/21 had 2 episodes of junctional bradycardia/sinus pause associated with BM and vomiting # Resistant HTN Blood pressure elevated, patient asymptomatic - increased Losartan to 100mg and add hydralazine 25mg TID, clonidine patch - continue nifedipine 120mg daily, aldactone 25 daily - renal Doppler showed medical renal disease + mildly elevated velocity within the proximal left main renal artery that may represent a focal stenosis less than 60%; - MR angio of kidneys nondiagnostic for renal artery stenosis # sinus pause, junctional bradycardia. No further episodes - likely vasovagal; Cardiology concurs. Beta-derrek d/c'ed and this issue has resolved 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 2 RI from CHF # acute/chronic HFpEF - now euvolemic # ABELARDO/CKD3-4 - SCr improved; monitor BMP, avoid nephrotoxins # acute hypoxic RF - resolved # normocytic anemia - likely JI + ACKD, repleted Fe IV and transfused 2u pRBCs and Hb improved # cognitive impairment - evaluated by psychiatry and does need guardianship + awaiting paperwork # DM2 complicated by hypoglycemia - d/c'ed metformin due to worsening renal function, added glipizide, recommend strict diabetic diet # hypothyroidism - continue LT4 # C diff colitis - resolved, s/p 14d of vancomycin treatment # acute grief reaction/depression - due to passing of , seems stable # VTE ppx - UFH Full code Attending Dr. Blevins dispo - waiting placement
[2021-03-08] MEDS: Heparin Sodium,Porcine 5,000 UNIT/ML VIAL 5000 UNIT SUBCUT ×2 (12:40→23:24)
[2021-03-08] MEDS: hydrALAZINE HCl 50 MG TABLET PO ×2 (16:56→20:28)
[2021-03-08] MEDS: Atorvastatin Calcium 80 MG TABLET PO (20:28)
--- NOTE | 2021-03-08 20:55 | PM.PNNEP ---
Subjective Subjective Date of Service: 03/08/21 Interval history: Seen and examined this morning No complaints Wants to go home BP is better controlled but has multple spikes Physical Exam Vital Signs: Vital Signs: Last Vital Signs Temp 97 F 03/08/21 15:28 Pulse 58 03/08/21 16:56 Resp 16 03/08/21 15:28 BP 153/72 H 03/08/21 16:56 Pulse Ox 98 03/08/21 15:28 Body Mass Index 20.1 Const General: alert and awake Nutritional Appearance: well nourished [facility] Head: Yes normocephalic and Yes atraumatic Eyes Sclerae: sclerae normal Chest Chest palpation & inspection: normal inspection of the chest Resp Effort & Inspection: normal respiratory effort and no respiratory distress Cardio Rate: regular rate Rhythm: regular rhythm GI Palpation (GI): Soft to palpation and nontender Neuro Cranial nerves: Yes CN's II-XII intact bilaterally and Yes Bilaterally intact EOM present Objective Data Labs CBC & Chem 7: 03/04/21 05:36 03/08/21 05:57 Labs: Laboratory Results - last 24 hr 03/08/21 05:57 Sodium 143 Potassium 3.8 Chloride 109 H Carbon Dioxide 25 Anion Gap 13 BUN 24 H Creatinine 0.98 Estim Creat Clear Calc 35.4 Estimated GFR 54 Random Glucose 127 H Calcium 8.5 Microbiology Microbiology Results: Microbiology 11/24/20 08:18 Stool Stool Culture - Final 09/21/20 Unknown Urine clean catch - Clean Catch Midstream Urine Culture - Final No growth. Assessment & Plan Time Spent With Patient Time: ABELARDO - Resolved CKD stage 3 at baseline Uncontrolled HTN - renovascular disease Siinus pause, junctional bradycardia NSTEMI Acute/chronic HFpEF MRA to r/o TIMMY- not an adequate study Spironolactone 25 mg daiy Losartan to 100 mg daily Continue Nifidipine On clonidine patch # 1 _ watch pulse rate Hydralazine increased to 50 mg TID d/w medical team thx Total time spent is greater than 50% in coordination of care (as documented) at patient's floor/unit and/or counseling patient: Procedures Date of Service Date of Service: 03/08/21 Progress Note: Quality Stroke Does the patient have a stroke diagnosis?: No
[2021-03-09] MEDS: Levothyroxine Sodium 75 MCG TABLET PO (06:07)
[2021-03-09 08:00] VITALS: BP 166/78; PULSE 75; RESP 18; TEMP 36.6; O2SAT 97
[2021-03-09] MEDS: glipiZIDE 5 MG TABLET 2.5 MG PO ×2 (08:28→17:09)
[2021-03-09] MEDS: Aspirin 81 MG TAB.CHEW PO (08:28)
[2021-03-09] MEDS: Spironolactone 25 MG TABLET PO (08:29)
[2021-03-09] MEDS: Losartan Potassium 50 MG TABLET 100 MG PO (08:30)
[2021-03-09] MEDS: Ferrous Sulfate 324 MG TABLET.DR PO (08:30)
[2021-03-09] MEDS: hydrALAZINE HCl 50 MG TABLET PO ×3 (08:30→20:11)
[2021-03-09] MEDS: Isosorbide Mononitrate 30 MG TAB.ER.24H PO (08:30)
[2021-03-09] MEDS: NIFEdipine ER 60 MG TAB.ER.24 120 MG PO (08:31)
--- NOTE | 2021-03-09 12:07 | HO.PM.IMPN ---
Subjective Subjective Date of Service: 03/09/21 Interval History: seen and examined no complaints and no new issues reported Physical Exam Vital Signs: Vital Signs: Last Vital Signs Temp 97.9 F 03/09/21 08:00 Pulse 75 03/09/21 08:00 Resp 18 03/09/21 08:00 BP 166/78 H 03/09/21 08:00 Pulse Ox 97 03/09/21 08:00 Body Mass Index 20.1 Const: General: alert and awake Nutritional Appearance: well nourished Limitations: no limitations HENMT: Head: Yes normocephalic and Yes atraumatic Eyes: Sclerae: sclerae normal Chest: Chest palpation & inspection: normal inspection of the chest Resp: Effort & Inspection: normal respiratory effort and no respiratory distress Cardio: Rate: regular rate Rhythm: regular rhythm GI: Palpation (GI): Soft to palpation and nontender Neuro: Cranial nerves: Yes CN's II-XII intact bilaterally and Yes Bilaterally intact EOM present Objective Data Current Medications Generic Name Dose Route Start Last Admin Trade Name Sachaq PRN Reason Stop Dose Admin Aspirin 81 mg 02/28/21 09:00 03/09/21 08:28 Aspirin 81 Mg Tab.Chew PO 81 mg DAILY RAGHAVENDRA Administration Atorvastatin Calcium 80 mg 02/27/21 08:00 03/08/21 20:28 Atorvastatin Calcium 80 Mg Tablet PO 80 mg BEDTIME RAGHAVENDRA Administration Clonidine 0.1 mg 03/13/21 09:00 Clonidine 0.1 Mg Patch.Tdwk TRANSDERMA Tu@0900 [facility] Protocol Ferrous Sulfate 324 mg 02/28/21 09:00 03/09/21 08:30 Ferrous Sulfate 324 Mg Tablet.Dr PO 324 mg DAILY RAGHAVENDRA Administration Glipizide 2.5 mg 02/24/21 17:00 03/09/21 08:28 Glipizide 5 Mg Tablet PO 2.5 mg BIDWM RAGHAVENDRA Administration Guaifenesin/Dextromethorphan 5 ml 03/02/21 23:01 Guaifenesin Dm 100/10/5 Ml 5 Ml Syrup PO Q6H PRN cough Heparin Sodium (Porcine) 5,000 unit 03/01/21 12:00 03/08/21 23:24 Heparin Sodium,Porcine 5,000 Unit/Ml Vial SUBCUT 5,000 unit Q12H RAGHAVENDRA Administration Hydralazine HCl 50 mg 03/08/21 15:00 03/09/21 08:30 Hydralazine Hcl 50 Mg Tablet PO 50 mg TID RAGHAVENDRA Administration Protocol Isosorbide Mononitrate 30 mg 03/04/21 14:30 03/09/21 08:30 Isosorbide Mononitrate 30 Mg Tab.Er.24h PO 30 mg DAILY RAGHAVENDRA Administration Protocol Levothyroxine Sodium 75 mcg 01/13/21 09:00 03/09/21 06:07 Levothyroxine Sodium 75 Mcg Tablet PO 75 mcg DAILY@0600 RAGHAVENDRA Administration Losartan Potassium 100 mg 03/08/21 09:00 03/09/21 08:30 Losartan Potassium 50 Mg Tablet PO 100 mg DAILY RAGHAVENDRA Administration Protocol Nifedipine 120 mg 02/13/21 09:00 03/09/21 08:31 Nifedipine Er 60 Mg Tab.Er.24 PO 120 mg DAILY RAGHAVENDRA Administration Protocol Ondansetron HCl 4 mg 03/02/21 14:26 03/02/21 12:30 Ondansetron Hcl 4 Mg/2 Ml Vial IVPUSH 4 mg Q4H PRN Administration nausea/vomiting Spironolactone 25 mg 03/05/21 09:00 03/09/21 08:29 Spironolactone 25 Mg Tablet PO 25 mg DAILY RAGHAVENDRA Administration Protocol Labs CBC & Chem 7: 03/04/21 05:36 03/08/21 05:57 Quality Stroke Does the patient have a stroke diagnosis?: No VTE Prior VTE?: No VTE Risk Level:: Medical - moderate - high VTE Device Contraindication: N/A - Device Ordered VTE Drug Contraindication: N/A - Med Ordered Assessment and Plan (1) CHF (congestive heart failure): Status: Acute Assessment and Plan: 5yo F with HTN, HLD, DM2, hypothyroidism, CAD s/p PCI. initially admitted with falls, elevated troponin; disposition complicated by cognitive impairment requiring guardianship on 02/26/21 developed hypoxia, dyspnea -> CHF exacerbation with NSTEMI on 03/02/21 had 2 episodes of junctional bradycardia/sinus pause associated with BM and vomiting # Resistant HTN Blood pressure elevated, patient asymptomatic - increased Losartan to 100mg and add increase hydralazine to 50mg TID, continue clonidine patch -- tele reviewd, no major bradycardic episodes appreciated - continue nifedipine 120mg daily, aldactone 25 daily - renal Doppler showed medical renal disease + mildly elevated velocity within the proximal left main renal artery that may represent a focal stenosis less than 60%; - MR angio of kidneys nondiagnostic for renal artery stenosis # sinus pause, junctional bradycardia. No further episodes - likely vasovagal; Cardiology concurs. Beta-derrek d/c'ed and this issue has resolved # NSTEMI - medically managed with enoxaparin [renally dosed] x48h, ASA, statin, b-derrek; per Cardiology likely type 2 [place] from CHF # acute/chronic HFpEF - now euvolemic # ABELARDO/CKD3-4 - SCr improved; monitor BMP, avoid nephrotoxins # acute hypoxic RF - resolved # normocytic anemia - likely JI + ACKD, repleted Fe IV and transfused 2u pRBCs and Hb improved # cognitive impairment - evaluated by psychiatry and does need guardianship + awaiting paperwork # DM2 complicated by hypoglycemia - d/c'ed metformin due to worsening renal function, added glipizide, recommend strict diabetic diet # hypothyroidism - continue LT4 # C diff colitis - resolved, s/p 14d of vancomycin treatment # acute grief reaction/depression - due to passing of , seems stable # VTE ppx - UFH Full code Attending Dr. Blevins dispo - waiting placement
[2021-03-09] MEDS: Heparin Sodium,Porcine 5,000 UNIT/ML VIAL 5000 UNIT SUBCUT ×2 (12:46→23:43)
[2021-03-09 14:44] VITALS: BP 173/77; PULSE 61; RESP 18; TEMP 36.4; O2SAT 96
[2021-03-09 19:08] VITALS: BP 172/60; PULSE 62; RESP 18; TEMP 36.7; O2SAT 97
[2021-03-09 20:11] VITALS: BP 172/60; PULSE 62
[2021-03-09] MEDS: Atorvastatin Calcium 80 MG TABLET PO (20:11)
[2021-03-10] VITALS: BP 152/75; PULSE 56; RESP 18; TEMP 36.8; O2SAT 94
[2021-03-10] MEDS: Levothyroxine Sodium 75 MCG TABLET PO (05:42)
[2021-03-10 08:00] VITALS: BP 180/71; PULSE 53; RESP 18; TEMP 36.5; O2SAT 96
[2021-03-10] MEDS: hydrALAZINE HCl 50 MG TABLET PO ×3 (08:48→20:47)
[2021-03-10] MEDS: Losartan Potassium 50 MG TABLET 100 MG PO (08:48)
[2021-03-10] MEDS: Ferrous Sulfate 324 MG TABLET.DR PO (08:48)
[2021-03-10] MEDS: Isosorbide Mononitrate 30 MG TAB.ER.24H PO (08:48)
[2021-03-10] MEDS: Aspirin 81 MG TAB.CHEW PO (08:48)
[2021-03-10] MEDS: glipiZIDE 5 MG TABLET 2.5 MG PO ×2 (08:49→18:04)
[2021-03-10] MEDS: NIFEdipine ER 60 MG TAB.ER.24 120 MG PO (08:49)
[2021-03-10] MEDS: Spironolactone 25 MG TABLET PO (08:50)
--- NOTE | 2021-03-10 11:36 | PM.IMPN ---
Progress Note: A&P (1) Dementia, vascular, mixed: Status: Acute (2) HTN (hypertension): Status: Acute Assessment and Plan: 85yo F with HTN, HLD, DM2, hypothyroidism, CAD s/p PCI. initially admitted with falls, elevated troponin; disposition complicated by cognitive impairment requiring guardianship on 02/26/21 developed hypoxia, dyspnea -> CHF exacerbation with NSTEMI on 03/02/21 had 2 episodes of junctional bradycardia/sinus pause associated with BM and vomiting # Resistant HTN Blood pressure elevated, patient asymptomatic - increased Losartan to 100mg and add increase hydralazine to 50mg TID, continue clonidine patch -- tele reviewd, no major bradycardic episodes appreciated - continue nifedipine 120mg daily, aldactone 25 daily - renal Doppler showed medical renal disease + mildly elevated velocity within the proximal left main renal artery that may represent a focal stenosis less than 60%; - MR angio of kidneys nondiagnostic for renal artery stenosis # sinus pause, junctional bradycardia. No further episodes - likely vasovagal; Cardiology concurs. Beta-derrek d/c'ed and this issue has resolved # NSTEMI - medically managed with enoxaparin [renally dosed] x48h, ASA, statin, b-derrek; per Cardiology likely type 2 [place] from CHF # acute/chronic HFpEF - now euvolemic # ABELARDO/CKD3-4 - SCr improved; monitor BMP, avoid nephrotoxins # acute hypoxic RF - resolved # normocytic anemia - likely JI + ACKD, repleted Fe IV and transfused 2u pRBCs and Hb improved # cognitive impairment - evaluated by psychiatry and does need guardianship + awaiting paperwork # DM2 complicated by hypoglycemia - d/c'ed metformin due to worsening renal function, added glipizide, recommend strict diabetic diet # hypothyroidism - continue LT4 # C diff colitis - resolved, s/p 14d of vancomycin treatment # acute grief reaction/depression - due to passing of , seems stable # VTE ppx - UFH Full code Attending Dr. Blevins dispo - waiting placement Subjective Subjective Date of Service: 03/10/21 Interval History: Follow up hypertension some better control OOB walking in room Physical Exam Vital Signs: Vital Signs: Last Vital Signs Temp 97.7 F 03/10/21 08:00 Pulse 53 03/10/21 08:00 Resp 18 03/10/21 08:00 BP 180/71 H 03/10/21 08:00 Pulse Ox 96 03/10/21 08:00 Body Mass Index 20.1 Appearing in no acute distress lung sounds are clear to auscultation heart regular rate rhythm, clear S1, S2 positive bowel sounds, abdomen is soft, nontender neuro patient is alert x3, no focal deficits Objective Data Current Medications Generic Name Dose Route Start Last Admin Trade Name Srinivas PRN Reason Stop Dose Admin Aspirin 81 mg 02/28/21 09:00 03/10/21 08:48 Aspirin 81 Mg Tab.Chew PO 81 mg DAILY RAGHAVENDRA Administration Atorvastatin Calcium 80 mg 02/27/21 08:00 03/09/21 20:11 Atorvastatin Calcium 80 Mg Tablet PO 80 mg BEDTIME RAGHAVENDRA Administration Clonidine 0.1 mg 03/13/21 09:00 Clonidine 0.1 Mg Patch.Tdwk TRANSDERMA Tu@0900 [facility] Protocol Ferrous Sulfate 324 mg 02/28/21 09:00 03/10/21 08:48 Ferrous Sulfate 324 Mg Tablet.Dr PO 324 mg DAILY RAGHAVENDRA Administration Glipizide 2.5 mg 02/24/21 17:00 03/10/21 08:49 Glipizide 5 Mg Tablet PO 2.5 mg BIDWM RAGHAVENDRA Administration Guaifenesin/Dextromethorphan 5 ml 03/02/21 23:01 Guaifenesin Dm 100/10/5 Ml 5 Ml Syrup PO Q6H PRN cough Heparin Sodium (Porcine) 5,000 unit 03/01/21 12:00 03/09/21 23:43 Heparin Sodium,Porcine 5,000 Unit/Ml Vial SUBCUT 5,000 unit Q12H RAGHAVENDRA Administration Hydralazine HCl 50 mg 03/08/21 15:00 03/10/21 08:48 Hydralazine Hcl 50 Mg Tablet PO 50 mg TID RAGHAVENDRA Administration Protocol Isosorbide Mononitrate 30 mg 03/04/21 14:30 03/10/21 08:48 Isosorbide Mononitrate 30 Mg Tab.Er.24h PO 30 mg DAILY RAGHAVENDRA Administration Protocol Levothyroxine Sodium 75 mcg 01/13/21 09:00 03/10/21 05:42 Levothyroxine Sodium 75 Mcg Tablet PO 75 mcg DAILY@0600 RAGHAVENDRA Administration Losartan Potassium 100 mg 03/08/21 09:00 03/10/21 08:48 Losartan Potassium 50 Mg Tablet PO 100 mg DAILY RAGHAVENDRA Administration Protocol Nifedipine 120 mg 02/13/21 09:00 03/10/21 08:49 Nifedipine Er 60 Mg Tab.Er.24 PO 120 mg DAILY [facility] Administration Protocol Ondansetron HCl 4 mg 03/02/21 14:26 03/02/21 12:30 Ondansetron Hcl 4 Mg/2 Ml Vial IVPUSH 4 mg Q4H PRN Administration nausea/vomiting Spironolactone 25 mg 03/05/21 09:00 03/10/21 08:50 Spironolactone 25 Mg Tablet PO 25 mg DAILY [facility] Administration Protocol Labs CBC & Chem 7: 03/04/21 05:36 03/08/21 05:57 Microbiology Microbiology Results: Microbiology 11/24/20 08:18 Stool Stool Culture - Final 09/21/20 Unknown Urine clean catch - Clean Catch Midstream Urine Culture - Final No growth. Quality Stroke Does the patient have a stroke diagnosis?: No VTE Prior VTE?: No VTE Risk Level:: Medical - moderate - high VTE Device Contraindication: N/A - Device Ordered VTE Drug Contraindication: N/A - Med Ordered
[2021-03-10] MEDS: Heparin Sodium,Porcine 5,000 UNIT/ML VIAL 5000 UNIT SUBCUT ×2 (13:43→23:23)
[2021-03-10 16:00] VITALS: BP 136/58; PULSE 55; RESP 20; TEMP 36.2; O2SAT 98
--- NOTE | 2021-03-10 16:13 | P.PNNP_ITS ---
Assessment & Plan Assessment and plan (1) HTN (hypertension): Status: Acute (2) Dementia, vascular, mixed: Status: Acute (3) Communicating hydrocephalus: Status: Acute (4) Bradycardia: Status: Acute (5) Neurocognitive disorder: Status: Acute Assessment and Plan: hospital d#[id number] 85yo F with HTN, HLD, DM2, hypothyroidism, CAD s/p PCI. initially admitted with falls, elevated troponin; disposition complicated by cognitive impairment requiring guardianship Resistant HTN: w/u to r/o 2ry causes--dopller and MRA inconclusive for TIMMY which is still a concern REC: CTA to r/o TIMMY, incr aldactone 50 qd and add cardura 2 mg qhs; may need to add loop diuretic if cont to be uncontrolled Time Spent With Patient Time: Total time spent is greater than 50% in coordination of care (as documented) at patient's floor/unit and/or counseling patient: Subjective Subjective Date of Service: 03/10/21 Interval history: Follow up hypertension--cont poorly controlled depsite stepwise incr in meds Physical Exam Vital Signs: Vital Signs: Last Vital Signs Temp 97.7 F 03/10/21 08:00 Pulse 53 03/10/21 08:00 Resp 18 03/10/21 08:00 BP 180/71 H 03/10/21 08:00 Pulse Ox 96 03/10/21 08:00 Body Mass Index 20.1 Const: Other: General: AO X 3, no acute distress Resp: CTA bilateral CVS: S1,S2,RRR GI: +BS, NT, no distention Skin: No rash Neuro: motor grossly intact Psych: depressed compare to usual General: cooperative, healthy appearing, comfortable, no acute distress, well developed, alert and awake; No acute distress Nutritional Appearance: average body habitus and well nourished Orientation/consciousness: oriented to person, oriented to place and patient oriented x3 Limitations: no limitations and other limitations (Question if the patient remembers events correctly) HENMT: Head: Yes normal to inspection, Yes normocephalic and Yes atraumatic Ears: hearing grossly normal bilaterally and external ears normal General nose exam: Normal external nose present Face and sinus: Yes normal facial exam Mouth: Normal oral and palatal mucosa present and oropharynx normal Throat: Yes posterior oropharynx normal Eyes: General: appearance normal, both eyes and all related structures Visual Adam: normal visual adam by confrontation Alignment and Position: alignment normal Periorbital: periorbital findings normal Eyelids: Yes eyelids normal Conjunctivae: conjunctivae normal Sclerae: sclerae normal Corneas: corneas normal Pupils: Equal, round and reactive pupils present and Pupil accommodation reflex normal EOM: EOMs intact bilaterally Direct Ophthalmoscopy: normal light reflex Neck: Neck: Yes normal visual inspection, Yes full ROM, Yes no lymphadenopathy, Yes no meningeal signs, Yes trachea midline and Yes supple Thyroid: Thyroid normal Carotids: normal carotid upstroke and bounding pulses Chest: Chest palpation & inspection: normal inspection of the chest and normal palpation of entire chest wall Resp: Effort & Inspection: normal respiratory effort and able to speak in complete sentences Auscultation: clear to auscultation bilaterally, no crackles, no wheezes and diminished lung sounds Cardio: Jugular venous distension: no JVD Palpation: normal PMI Rate: regular rate Rhythm: regular rhythm Heart sounds: S1 normal heart sound present, S2 normal heart sound present, no gallops, Murmur heart sound present systolic early, III/ and at the right sternal border and no rubs Peripheral pulses: Peripheral pulses 2+ throughout GI: Inspection: Yes normal to inspection Palpation (GI): Soft to palpation, nontender, no guarding, not rigid and No hepatosplenomegaly present Percussion: Yes normal to percussion Auscultation: normal bowel sounds Rectal Exam - Female: deferred : General: Yes no CVA tenderness Back/Spine/Pelvis: Back: no CVA tenderness Cervical Spine: normal cervical lordosis and cervical ROM normal Thoracic/Lumbar Spine: thoracic and lumbar spine normal to inspection Skin: General skin exam: no rashes or lesions noted Lesions: no lesions Rashes: no rashes Wounds: no wounds Neuro: General: oriented to person, oriented to place, patient oriented x3, tone normal, moves all extremities, Normal light touch and pain sensation, no meningeal signs, no focal motor deficits, CN's II-XI intact bilaterally, normal sensation to monofilament and deep tendon reflexes 2+ bilaterally Cranial nerves: Yes CN's II-XII intact bilaterally, Yes Equal, round and reactive pupils present, Yes Bilaterally intact EOM present, Yes Nystagmus not present, Yes Normal facial strength present, Yes Midline tongue present, Yes Normal gag reflex present, Yes Symmetric palate elevation present, Yes Normal hearing present and Yes Ability to bilaterally rotate head present Cognition (Neuro): normal cognition and abnormal cognition Speech: Abnormal speech present and Other speech findings present (Neuro) Motor exam (neuro): 5/5 motor strength present throughout, Pronator motor function not present, no tremor noted, no asterixis, Motor fasciculations not present, Normal motor muscle tone present throughout and Motor abnormalities not present Sensory Exam: Bilaterally intact graphesthesia and Sensory deficit (Neuro) Deep tendon reflexes (DTR's): Right triceps reflex intensity grade: 2+, Left triceps reflex intensity grade: 2+, Rt Biceps (C5, C6): 2+, Left biceps reflex intensity grade: 2+, Right brachioradialis reflex intensity grade: 2+, Left brachioradialis reflex intensity grade: 2+, Right patellar reflex intensity grade: 2+, Left patellar reflex intensity grade: 2+, Right ankle reflex intensity grade: 2+ and Left ankle reflex intensity grade: 2+ Plantar Reflex Responses: downgoing: right, left and bilateral Coordination: [id number] test normal and [id number] test normal Pupils: Normal pupillary reactivity/response: bilateral Extrem: General: Yes normal to inspection, Yes full ROM, Yes normal exam except as noted, Yes no clubbing, cyanosis or edema and Yes no pedal edema Psych: Appearance: grossly normal and well kempt Mental Status: mental status grossly normal Speech and movement: Normal speech and movement present and Clear speech present Affect: normal affect Attitude: cooperative Thought process: Normal thought process present Thought content: Normal thought content present Insight: Other insight findings present (Psych) (Patient may not be recalling events correctly based discussion with [facility]) Objective Data Labs CBC & Chem 7: 03/04/21 05:36 03/08/21 05:57 Microbiology Microbiology Results: Microbiology 11/24/20 08:18 Stool Stool Culture - Final 09/21/20 Unknown Urine clean catch - Clean Catch Midstream Urine Culture - Final No growth. Procedures Date of Service Date of Service: 03/10/21 Progress Note: Quality Stroke Does the patient have a stroke diagnosis?: No
[2021-03-10] MEDS: iohexoL 350 MG/ML 100 ML INFUS..BTL IV (16:47)
[2021-03-10 20:45] VITALS: BP 151/71; PULSE 65
[2021-03-10] MEDS: Doxazosin Mesylate 2 MG TABLET PO (20:45)
[2021-03-10] MEDS: Atorvastatin Calcium 80 MG TABLET PO (20:46)
[2021-03-10 20:47] VITALS: BP 151/71; PULSE 65
[2021-03-10 23:51] VITALS: BP 167/54; PULSE 56; RESP 16; TEMP 36.4; O2SAT 94
[2021-03-11] MEDS: Levothyroxine Sodium 75 MCG TABLET PO (05:20)
[2021-03-11 08:37] VITALS: BP 180/88; PULSE 72; RESP 18; TEMP 36.2; O2SAT 97
[2021-03-11] MEDS: hydrALAZINE HCl 50 MG TABLET PO ×3 (09:00→20:52)
[2021-03-11] MEDS: Isosorbide Mononitrate 30 MG TAB.ER.24H PO (09:01)
[2021-03-11] MEDS: Spironolactone 25 MG TABLET 50 MG PO (09:01)
[2021-03-11] MEDS: Aspirin 81 MG TAB.CHEW PO (09:01)
[2021-03-11] MEDS: Losartan Potassium 50 MG TABLET 100 MG PO (09:01)
[2021-03-11] MEDS: NIFEdipine ER 60 MG TAB.ER.24 120 MG PO (09:01)
[2021-03-11] MEDS: Ferrous Sulfate 324 MG TABLET.DR PO (09:01)
[2021-03-11] MEDS: glipiZIDE 5 MG TABLET 2.5 MG PO ×2 (09:02→15:59)
--- NOTE | 2021-03-11 10:01 | PM.IMPN ---
Progress Note: A&P (1) HTN (hypertension): Status: Acute <Winifred Douglas NP - Last Filed: 03/11/21 10:04> Assessment and Plan: 85yo F with HTN, HLD, DM2, hypothyroidism, CAD s/p PCI. initially admitted with falls, elevated troponin; disposition complicated by cognitive impairment requiring guardianship on 02/26/21 developed hypoxia, dyspnea -> CHF exacerbation with NSTEMI on 03/02/21 had 2 episodes of junctional bradycardia/sinus pause associated with BM and vomiting # Resistant HTN Blood pressure elevated, patient asymptomatic - increased Losartan to 100mg and add increase hydralazine to 50mg TID, continue clonidine patch -- tele reviewd, no major bradycardic episodes appreciated - continue nifedipine 120mg daily, aldactone increased to 50mg daily, added cardura at bedtime - renal Doppler showed medical renal disease + mildly elevated velocity within the proximal left main renal artery that may represent a focal stenosis less than 60%; - MR angio of kidneys nondiagnostic for renal artery stenosis, no RA stenosis on abd CT either # sinus pause, junctional bradycardia. No further episodes - likely vasovagal; Cardiology concurs. 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 - SCr improved; monitor BMP, avoid nephrotoxins # acute hypoxic RF - resolved # normocytic anemia - likely JI + ACKD, repleted Fe IV and transfused 2u pRBCs and Hb improved # cognitive impairment - evaluated by psychiatry and does need guardianship + awaiting paperwork # DM2 complicated by hypoglycemia - d/c'ed metformin due to worsening renal function, added glipizide, recommend strict diabetic diet # hypothyroidism - continue LT4 # C diff colitis - resolved, s/p 14d of vancomycin treatment # acute grief reaction/depression - due to passing of , seems stable # VTE ppx - UFH Full code Attending Dr. Diaz dispo - waiting placement/guardianship <Winifred Douglas NP - Last Filed: 03/11/21 10:04> Subjective Subjective Date of Service: 03/11/21 <Winifred Douglas NP - Last Filed: 03/11/21 10:04> 03/11/21 <Adolfo Diaz MD - Last Filed: 03/11/21 14:36> Interval History: Follow up resistant hypertension Feeling well ambulating in the room <Winifred Douglas NP - Last Filed: 03/11/21 10:04> Physical Exam Vital Signs: Vital Signs: Last Vital Signs Temp 97.1 F 03/11/21 08:37 Pulse 72 03/11/21 08:37 Resp 18 03/11/21 08:37 BP 180/88 H 03/11/21 08:37 Pulse Ox 97 03/11/21 08:37 Body Mass Index 20.1 <Winifred Douglas NP - Last Filed: 03/11/21 10:04> Appearing in no acute distress lung sounds are clear to auscultation heart regular rate rhythm, clear S1, S2 positive bowel sounds, abdomen is soft, nontender neuro patient is alert x3, no focal deficits <Winifred Douglas NP - Last Filed: 03/11/21 10:04> Objective Data Current Medications Generic Name Dose Route Start Last Admin Trade Name Freq PRN Reason Stop Dose Admin Aspirin 81 mg 02/28/21 09:00 03/11/21 09:01 Aspirin 81 Mg Tab.Chew PO 81 mg DAILY RAGHAVENDRA Administration Atorvastatin Calcium 80 mg 02/27/21 08:00 03/10/21 20:46 Atorvastatin Calcium 80 Mg Tablet PO 80 mg BEDTIME RAGHAVENDRA Administration Clonidine 0.1 mg 03/13/21 09:00 Clonidine 0.1 Mg Patch.Tdwk TRANSDERMA Tu@0900 RAGHAVENDRA Protocol Doxazosin Mesylate 2 mg 03/10/21 21:00 03/10/21 20:45 Doxazosin Mesylate 2 Mg Tablet PO 2 mg BEDTIME RAGHAVENDRA Administration Protocol Ferrous Sulfate 324 mg 02/28/21 09:00 03/11/21 09:01 Ferrous Sulfate 324 Mg Tablet. PO 324 mg DAILY RAGHAVENDRA Administration Glipizide 2.5 mg 02/24/21 17:00 03/11/21 09:02 Glipizide 5 Mg Tablet PO 2.5 mg BIDWM RAGHAVENDRA Administration Guaifenesin/Dextromethorphan 5 ml 03/02/21 23:01 Guaifenesin Dm 100/10/5 Ml 5 Ml Syrup PO Q6H PRN cough Heparin Sodium (Porcine) 5,000 unit 03/01/21 12:00 03/10/21 23:23 Heparin Sodium,Porcine 5,000 Unit/Ml Vial SUBCUT 5,000 unit Q12H RAGHAVENDRA Administration Hydralazine HCl 50 mg 03/08/21 15:00 03/11/21 09:00 Hydralazine Hcl 50 Mg Tablet PO 50 mg TID RAGHAVENDRA Administration Protocol Isosorbide Mononitrate 30 mg 03/04/21 14:30 03/11/21 09:01 Isosorbide Mononitrate 30 Mg Tab.Er.24h PO 30 mg DAILY RAGHAVENDRA Administration Protocol Levothyroxine Sodium 75 mcg 01/13/21 09:00 03/11/21 05:20 Levothyroxine Sodium 75 Mcg Tablet PO 75 mcg DAILY@0600 RAGHAVENDRA Administration Losartan Potassium 100 mg 03/08/21 09:00 03/11/21 09:01 Losartan Potassium 50 Mg Tablet PO 100 mg DAILY RAGHAVENDRA Administration Protocol Nifedipine 120 mg 02/13/21 09:00 03/11/21 09:01 Nifedipine Er 60 Mg Tab.Er.24 PO 120 mg DAILY RAGHAVENDRA Administration Protocol Ondansetron HCl 4 mg 03/02/21 14:26 03/02/21 12:30 Ondansetron Hcl 4 Mg/2 Ml Vial IVPUSH 4 mg Q4H PRN Administration nausea/vomiting Spironolactone 50 mg 03/11/21 09:00 03/11/21 09:01 Spironolactone 25 Mg Tablet PO 50 mg DAILY [facility] Administration Protocol <Winifred Douglas NP - Last Filed: 03/11/21 10:04> Labs CBC & Chem 7: : 03/04/21 05:36 03/08/21 05:57 <Winifred Douglas NP - Last Filed: 03/11/21 10:04> Microbiology Microbiology Results: Microbiology 11/24/20 08:18 Stool Stool Culture - Final 09/21/20 Unknown Urine clean catch - Clean Catch Midstream Urine Culture - Final No growth. <Winifred Douglas NP - Last Filed: 03/11/21 10:04> Quality Stroke Does the patient have a stroke diagnosis?: No <Winifred Douglas NP - Last Filed: 03/11/21 10:04> VTE Prior VTE?: No <Winifred Douglas NP - Last Filed: 03/11/21 10:04> VTE Risk Level:: Medical - moderate - high <Winifred Douglas NP - Last Filed: 03/11/21 10:04> VTE Device Contraindication: N/A - Device Ordered <Winifred Douglas NP - Last Filed: 03/11/21 10:04> VTE Drug Contraindication: N/A - Med Ordered <Winifred Douglas NP - Last Filed: 03/11/21 10:04>
--- NOTE | 2021-03-11 10:27 | P.PNNP_ITS ---
Assessment & Plan Assessment and plan (1) HTN (hypertension): Status: Acute (2) Dementia, vascular, mixed: Status: Acute (3) Communicating hydrocephalus: Status: Acute (4) Bradycardia: Status: Acute (5) Neurocognitive disorder: Status: Acute Assessment and Plan: hospital d#[id number] 85yo F with HTN, HLD, DM2, hypothyroidism, CAD s/p PCI. initially admitted with falls, elevated troponin; disposition complicated by cognitive impairment requiring guardianship Resistant HTN: w/u to r/o 2ry causes--dopplerr and MRA inconclusive for TIMMY and now CTA repoprtedly neg for TIMMY REC:, cont aldactone 50 qd and add cardura 2 mg qhs; add lasix 20 qd if BP cotn to be uncontrolled Time Spent With Patient Time: Total time spent is greater than 50% in coordination of care (as documented) at patient's floor/unit and/or counseling patient: Subjective Subjective Date of Service: 03/11/21 Interval history: Follow up resistant hypertension Feeling well ambulating in the room Physical Exam Vital Signs: Vital Signs: Last Vital Signs Temp 97.1 F 03/11/21 08:37 Pulse 72 03/11/21 08:37 Resp 18 03/11/21 08:37 BP 180/88 H 03/11/21 08:37 Pulse Ox 97 03/11/21 08:37 Body Mass Index 20.1 Const: Other: General: AO X 3, no acute distress Resp: CTA bilateral CVS: S1,S2,RRR GI: +BS, NT, no distention Skin: No rash Neuro: motor grossly intact Psych: depressed compare to usual General: cooperative, healthy appearing, comfortable, no acute distress, well developed, alert and awake; No acute distress Nutritional Appearance: average body habitus and well nourished Orientation/consciousness: oriented to person, oriented to place and patient oriented x3 Limitations: no limitations and other limitations (Question if the patient remembers events correctly) HENMT: Head: Yes normal to inspection, Yes normocephalic and Yes atraumatic Ears: hearing grossly normal bilaterally and external ears normal General nose exam: Normal external nose present Face and sinus: Yes normal facial ex am Mouth: Normal oral and palatal mucosa present and oropharynx normal Throat: Yes posterior oropharynx normal Eyes: General: appearance normal, both eyes and all related structures Visual Adam: normal visual adam by confrontation Alignment and Position: alignment normal Periorbital: periorbital findings normal Eyelids: Yes eyelids normal Conjunctivae: conjunctivae normal Sclerae: sclerae normal Corneas: corneas normal Pupils: Equal, round and reactive pupils present and Pupil accommodation reflex normal EOM: EOMs intact bilaterally Direct Ophthalmoscopy: normal light reflex Neck: Neck: Yes normal visual inspection, Yes full ROM, Yes no lymphadenopathy, Yes no meningeal signs, Yes trachea midline and Yes supple Thyroid: Thyroid normal Carotids: normal carotid upstroke and bounding pulses Chest: Chest palpation & inspection: normal inspection of the chest and normal palpation of entire chest wall Resp: Effort & Inspection: normal respiratory effort and able to speak in complete sentences Auscultation: clear to auscultation bilaterally, no crackles, no wheezes and diminished lung sounds Cardio: Jugular venous distension: no JVD Palpation: normal PMI Rate: regular rate Rhythm: regular rhythm Heart sounds: S1 normal heart sound present, S2 normal heart sound present, no gallops, Murmur heart sound present systolic early, III/ and at the right sternal border and no rubs Peripheral pulses: Peripheral pulses 2+ throughout GI: Inspection: Yes normal to inspection Palpation (GI): Soft to palpation, nontender, no guarding, not rigid and No hepatosplenomegaly present Percussion: Yes normal to percussion Auscultation: normal bowel sounds Rectal Exam - Female: deferred : General: Yes no CVA tenderness Back/Spine/Pelvis: Back: no CVA tenderness Cervical Spine: normal cervical lordosis and cervical ROM normal Thoracic/Lumbar Spine: thoracic and lumbar spine normal to inspection Skin: General skin exam: no rashes or lesions noted Lesions: no lesions Rashes: no rashes Wounds: no wounds Neuro: General: oriented to person, oriented to place, patient oriented x3, tone normal, moves all extremities, Normal light touch and pain sensation, no meningeal signs, no focal motor deficits, CN's II-XI intact bilaterally, normal sensation to monofilament and deep tendon reflexes 2+ bilaterally Cranial nerves: Yes CN's II-XII intact bilaterally, Yes Equal, round and reactive pupils present, Yes Bilaterally intact EOM present, Yes Nystagmus not present, Yes Normal facial strength present, Yes Midline tongue present, Yes Normal gag reflex present, Yes Symmetric palate elevation present, Yes Normal hearing present and Yes Ability to bilaterally rotate head present Cognition (Neuro): normal cognition and abnormal cognition Speech: Abnormal speech present and Other speech findings present (Neuro) Motor exam (neuro): 5/5 motor strength present throughout, Pronator motor function not present, no tremor noted, no asterixis, Motor fasciculations not present, Normal motor muscle tone present throughout and Motor abnormalities not present Sensory Exam: Bilaterally intact graphesthesia and Sensory deficit (Neuro) Deep tendon reflexes (DTR's): Right triceps reflex intensity grade: 2+, Left triceps reflex intensity grade: 2+, Rt Biceps (C5, C6): 2+, Left biceps reflex intensity grade: 2+, Right brachioradialis reflex intensity grade: 2+, Left brachioradialis reflex intensity grade: 2+, Right patellar reflex intensity grade: 2+, Left patellar reflex intensity grade: 2+, Right ankle reflex intensity grade: 2+ and Left ankle reflex intensity grade: 2+ Plantar Reflex Responses: downgoing: right, left and bilateral Coordination: [id number] test normal and [id number] test normal Pupils: Normal pupillary reactivity/response: bilateral Extrem: General: Yes normal to inspection, Yes full ROM, Yes normal exam except as noted, Yes no clubbing, cyanosis or edema and Yes no pedal edema Psych: Appearance: grossly normal and well kempt Mental Status: mental st atus grossly normal Speech and movement: Normal speech and movement present and Clear speech present Affect: normal affect Attitude: cooperative Thought process: Normal thought process present Thought content: Normal thought content present Insight: Other insight findings present (Psych) (Patient may not be recalling events correctly based discussion with [facility]) Objective Data Labs CBC & Chem 7: 03/04/21 05:36 03/08/21 05:57 Microbiology Microbiology Results: Microbiology 11/24/20 08:18 Stool Stool Culture - Final 09/21/20 Unknown Urine clean catch - Clean Catch Midstream Urine Culture - Final No growth. Procedures Date of Service Date of Service: 03/11/21 Progress Note: Quality Stroke Does the patient have a stroke diagnosis?: No
[2021-03-11 15:43] VITALS: BP 149/62; PULSE 70; RESP 20; TEMP 36.4; O2SAT 97
[2021-03-11 20:52] VITALS: BP 160/80; PULSE 65
[2021-03-11] MEDS: Atorvastatin Calcium 80 MG TABLET PO (20:52)
[2021-03-11] MEDS: Doxazosin Mesylate 2 MG TABLET PO (20:52)
[2021-03-11] MEDS: Heparin Sodium,Porcine 5,000 UNIT/ML VIAL 5000 UNIT SUBCUT (23:25)
[2021-03-12] VITALS (9 sets, daily range): BP systolic 152–158; BP diastolic 57–82; PULSE 57–63; RESP 16–18; TEMP 36.1–36.7; O2SAT 94–97
[2021-03-12] MEDS: Levothyroxine Sodium 75 MCG TABLET PO (05:17)
[2021-03-12 07:57] LABS: Glucose, Whole Blood 197 mg/dL (60-115)
[2021-03-12] MEDS: glipiZIDE 5 MG TABLET 2.5 MG PO ×2 (08:06→16:02)
[2021-03-12] MEDS: NIFEdipine ER 60 MG TAB.ER.24 120 MG PO (08:07)
[2021-03-12] MEDS: Aspirin 81 MG TAB.CHEW PO (08:08)
[2021-03-12] MEDS: Isosorbide Mononitrate 30 MG TAB.ER.24H PO (08:08)
[2021-03-12] MEDS: Losartan Potassium 50 MG TABLET 100 MG PO (08:08)
[2021-03-12] MEDS: Ferrous Sulfate 324 MG TABLET.DR PO (08:09)
[2021-03-12] MEDS: Spironolactone 25 MG TABLET 50 MG PO (08:09)
[2021-03-12] MEDS: hydrALAZINE HCl 50 MG TABLET PO ×3 (08:09→20:21)
--- NOTE | 2021-03-12 09:13 | P.PNIM_ITS ---
Subjective Subjective Date of Service: 03/12/21 Interval History: seen and examined this AM no new issues reported by staff research associate no new issues reported by patient Physical Exam Vital Signs: Vital Signs: Last Vital Signs Temp 97.3 F 03/12/21 07:29 Pulse 57 03/12/21 08:09 Resp 17 03/12/21 07:29 BP 156/71 H 03/12/21 08:09 Pulse Ox 94 03/12/21 07:29 Body Mass Index 20.1 Const: General: alert and awake Nutritional Appearance: well nourished Limitations: no limitations and other limitations (Question if the patient remembers events correctly) HENMT: Head: Yes normocephalic and Yes atraumatic Eyes: Sclerae: sclerae normal Chest: Chest palpation & inspection: normal inspection of the chest Resp: Effort & Inspection: normal respiratory effort and no respiratory distress Cardio: Rate: regular rate Rhythm: regular rhythm GI: Palpation (GI): Soft to palpation and nontender Neuro: Cranial nerves: Yes CN's II-XII intact bilaterally and Yes Bilaterally intact EOM present Objective Data Current Medications Generic Name Dose Route Start Last Admin Trade Name Freq PRN Reason Stop Dose Admin Aspirin 81 mg 02/28/21 09:00 03/12/21 08:08 Aspirin 81 Mg Tab.Chew PO 81 mg DAILY RAGHAVENDRA Administration Atorvastatin Calcium 80 mg 02/27/21 08:00 03/11/21 20:52 Atorvastatin Calcium 80 Mg Tablet PO 80 mg BEDTIME RAGHAVENDRA Administration Clonidine 0.1 mg 03/13/21 09:00 Clonidine 0.1 Mg Patch.Tdwk TRANSDERMA Tu@0900 RAGHAVENDRA Protocol Doxazosin Mesylate 2 mg 03/10/21 21:00 03/11/21 20:52 Doxazosin Mesylate 2 Mg Tablet PO 2 mg BEDTIME RAGHAVENDRA Administration Protocol Ferrous Sulfate 324 mg 02/28/21 09:00 03/12/21 08:09 Ferrous Sulfate 324 Mg Tablet.Dr PO 324 mg DAILY RAGHAVENDRA Administration Glipizide 2.5 mg 02/24/21 17:00 03/12/21 08:06 Glipizide 5 Mg Tablet PO 2.5 mg BIDWM RAGHAVENDRA Administration Guaifenesin/Dextromethorphan 5 ml 03/02/21 23:01 Guaifenesin Dm 100/10/5 Ml 5 Ml Syrup PO Q6H PRN cough Heparin Sodium (Porcine) 5,000 unit 03/01/21 12:00 03/11/21 23:25 Heparin Sodium,Porcine 5,000 Unit/Ml Vial SUBCUT 5,000 unit Q12H RAGHAVENDRA Administration Hydralazine HCl 50 mg 03/08/21 15:00 03/12/21 08:09 Hydralazine Hcl 50 Mg Tablet PO 50 mg TID RAGHAVENDRA Administration Protocol Isosorbide Mononitrate 30 mg 03/04/21 14:30 03/12/21 08:08 Isosorbide Mononitrate 30 Mg Tab.Er.24h PO 30 mg DAILY RAGHAVENDRA Administration Protocol Levothyroxine Sodium 75 mcg 01/13/21 09:00 03/12/21 05:17 Levothyroxine Sodium 75 Mcg Tablet PO 75 mcg DAILY@0600 RAGHAVENDRA Administration Losartan Potassium 100 mg 03/08/21 09:00 03/12/21 08:08 Losartan Potassium 50 Mg Tablet PO 100 mg DAILY RAGHAVEDNRA Administration Protocol Nifedipine 120 mg 02/13/21 09:00 03/12/21 08:07 Nifedipine Er 60 Mg Tab.Er.24 PO 120 mg DAILY RAGHAVENDRA Administration Protocol Ondansetron HCl 4 mg 03/02/21 14:26 03/02/21 12:30 Ondansetron Hcl 4 Mg/2 Ml Vial IVPUSH 4 mg Q4H PRN Administration nausea/vomiting Spironolactone 50 mg 03/11/21 09:00 03/12/21 08:09 Spironolactone 25 Mg Tablet PO 50 mg DAILY RAGHAVENDRA Administration Protocol Labs CBC & Chem 7: 03/04/21 05:36 03/08/21 05:57 Labs: Laboratory Results - last 24 hr 03/12/21 07:31 POC Glucose 197 H Quality Stroke Does the patient have a stroke diagnosis?: No VTE Prior VTE?: No VTE Risk Level:: Medical - moderate - high VTE Device Contraindication: N/A - Device Ordered VTE Drug Contraindication: N/A - Med Ordered Assessment and Plan (1) HTN (hypertension): Status: Acute Assessment and Plan: 85yo F with HTN, HLD, DM2, hypothyroidism, CAD s/p PCI. initially admitted with falls, elevated troponin; disposition complicated by cognitive impairment requiring guardianship on 02/26/21 developed hypoxia, dyspnea -> CHF exacerbation with NSTEMI on 03/02/21 had 2 episodes of junctional bradycardia/sinus pause associated with BM and vomiting # Resistant HTN Renal artery stenosis not seen on CT angio Nifedipine 120 Imdur 30 Clonodine 0.1mg patch q weekly (pulse as been greater than 55 during vitals, not on tele) Losartan 100 Hydralazine 50 Aldactone 50 Dozazosin 2mg # sinus pause, junctional bradycardia. No further episodes - likely vasovagal; Cardiology concurs. 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 - SCr improved; monitor BMP, avoid nephrotoxins # acute hypoxic RF - resolved # normocytic anemia - likely JI + ACKD, repleted Fe IV and transfused 2u pRBCs and Hb improved # cognitive impairment - evaluated by psychiatry and does need guardianship + awaiting paperwork # DM2 complicated by hypoglycemia - d/c'ed metformin due to worsening renal function, added glipizide, recommend strict diabetic diet # hypothyroidism - continue LT4 # C diff colitis - resolved, s/p 14d of vancomycin treatment # acute grief reaction/depression - due to passing of , seems stable # VTE ppx - UFH Full code Attending Dr. Diaz dispo - waiting placement/guardianship
[2021-03-12] MEDS: Heparin Sodium,Porcine 5,000 UNIT/ML VIAL 5000 UNIT SUBCUT (11:39)
--- NOTE | 2021-03-12 16:27 | MHC.CLN ---
FOLLOW UP REVIEW OF DIET ORDER SHOWS REGULAR, LOW RESIDUE/SOFT. ADDED DIABETIC 1800 KCAL TO DIET ORDER.
[2021-03-12] MEDS: Atorvastatin Calcium 80 MG TABLET PO (20:21)
[2021-03-12] MEDS: Doxazosin Mesylate 2 MG TABLET PO (20:21)
[2021-03-12 21:09] LABS: Glucose, Whole Blood 283 mg/dL (60-115)
[2021-03-13] VITALS (9 sets, daily range): BP systolic 139–190; BP diastolic 49–69; PULSE 58–62; RESP 16–18; TEMP 36.7–36.8; O2SAT 94–97
[2021-03-13] MEDS: Heparin Sodium,Porcine 5,000 UNIT/ML VIAL 5000 UNIT SUBCUT (01:15)
[2021-03-13] MEDS: Levothyroxine Sodium 75 MCG TABLET PO (06:28)
[2021-03-13 07:31] LABS: Glucose, Whole Blood 133 mg/dL (60-115)
[2021-03-13] MEDS: NIFEdipine ER 60 MG TAB.ER.24 120 MG PO (07:58)
[2021-03-13] MEDS: Losartan Potassium 50 MG TABLET 100 MG PO (07:58)
[2021-03-13] MEDS: hydrALAZINE HCl 50 MG TABLET PO ×3 (07:58→20:16)
[2021-03-13] MEDS: Isosorbide Mononitrate 30 MG TAB.ER.24H PO (07:58)
[2021-03-13] MEDS: Ferrous Sulfate 324 MG TABLET.DR PO (07:58)
[2021-03-13] MEDS: Aspirin 81 MG TAB.CHEW PO (07:58)
[2021-03-13] MEDS: Spironolactone 25 MG TABLET 50 MG PO (07:59)
[2021-03-13] MEDS: glipiZIDE 5 MG TABLET 2.5 MG PO ×2 (07:59→16:20)
--- NOTE | 2021-03-13 09:05 | P.PNIM_ITS ---
Subjective Subjective Date of Service: 03/13/21 Interval History: seen and examined in a good mood today and complementing the staff and care ROS General - no fevers or chills Cardiovascular - no chest pain Respiratory - no shortness of breath or cough Abdominal- no abdominal pain, nausea, vomiting, diarrhea Physical Exam Vital Signs: Vital Signs: Last Vital Signs Temp 98.2 F 03/13/21 07:26 Pulse 58 03/13/21 07:59 Resp 18 03/13/21 07:26 BP 150/58 H 03/13/21 07:59 Pulse Ox 94 03/13/21 07:26 Body Mass Index 20.1 Const: General: alert and awake Nutritional Appearance: well nourished Limitations: no limitations and other limitations (Question if the patient remembers events correctly) HENMT: Head: Yes normocephalic and Yes atraumatic Eyes: Sclerae: sclerae normal Chest: Chest palpation & inspection: normal inspection of the chest Resp: Effort & Inspection: normal respiratory effort and no respiratory distress Cardio: Rate: regular rate Rhythm: regular rhythm GI: Palpation (GI): Soft to palpation and nontender Neuro: Cranial nerves: Yes CN's II-XII intact bilaterally and Yes Bilaterally intact EOM present Psych: Insight: Limited insight present (Psych) Objective Data Current Medications Generic Name Dose Route Start Last Admin Trade Name Srinivas PRN Reason Stop Dose Admin Aspirin 81 mg 02/28/21 09:00 03/13/21 07:58 Aspirin 81 Mg Tab.Chew PO 81 mg DAILY RAGHAVENDRA Administration Atorvastatin Calcium 80 mg 02/27/21 08:00 03/12/21 20:21 Atorvastatin Calcium 80 Mg Tablet PO 80 mg BEDTIME RAGHAVENDRA Administration Clonidine 0.1 mg 03/13/21 09:00 Clonidine 0.1 Mg Patch.Tdwk TRANSDERMA Tu@0900 RAGHAVENDRA Protocol Doxazosin Mesylate 2 mg 03/10/21 21:00 03/12/21 20:21 Doxazosin Mesylate 2 Mg Tablet PO 2 mg BEDTIME RAGHAVENDRA Administration Protocol Ferrous Sulfate 324 mg 02/28/21 09:00 03/13/21 07:58 Ferrous Sulfate 324 Mg Tablet. PO 324 mg DAILY RAGHAVENDRA Administration Glipizide 2.5 mg 02/24/21 17:00 03/13/21 07:59 Glipizide 5 Mg Tablet PO 2.5 mg BIDWM RAGHAVENDRA Administration Guaifenesin/Dextromethorphan 5 ml 03/02/21 23:01 Guaifenesin Dm 100/10/5 Ml 5 Ml Syrup PO Q6H PRN cough Heparin Sodium (Porcine) 5,000 unit 03/01/21 12:00 03/13/21 01:15 Heparin Sodium,Porcine 5,000 Unit/Ml Vial SUBCUT 5,000 unit Q12H RAGHAVENDRA Administration Hydralazine HCl 50 mg 03/08/21 15:00 03/13/21 07:58 Hydralazine Hcl 50 Mg Tablet PO 50 mg TID RAGHAVENDRA Administration Protocol Isosorbide Mononitrate 30 mg 03/04/21 14:30 03/13/21 07:58 Isosorbide Mononitrate 30 Mg Tab.Er.24h PO 30 mg DAILY [facility] Administration Protocol Levothyroxine Sodium 75 mcg 01/13/21 09:00 03/13/21 06:28 Levothyroxine Sodium 75 Mcg Tablet PO 75 mcg DAILY@0600 RAGHAVENDRA Administration Losartan Potassium 100 mg 03/08/21 09:00 03/13/21 07:58 Losartan Potassium 50 Mg Tablet PO 100 mg DAILY [facility] Administration Protocol Nifedipine 120 mg 02/13/21 09:00 03/13/21 07:58 Nifedipine Er 60 Mg Tab.Er.24 PO 120 mg DAILY [facility] Administration Protocol Ondansetron HCl 4 mg 03/02/21 14:26 03/02/21 12:30 Ondansetron Hcl 4 Mg/2 Ml Vial IVPUSH 4 mg Q4H PRN Administration nausea/vomiting Spironolactone 50 mg 03/11/21 09:00 03/13/21 07:59 Spironolactone 25 Mg Tablet PO 50 mg DAILY [facility] Administration Protocol Labs CBC & Chem 7: 03/04/21 05:36 03/08/21 05:57 Labs: Laboratory Results - last 24 hr 03/12/21 03/13/21 20:53 07:24 POC Glucose 283 H 133 H Assessment and Plan (1) HTN (hypertension): Status: Acute Assessment and Plan: 85yo F with HTN, HLD, DM2, hypothyroidism, CAD s/p PCI. initially admitted with falls, elevated troponin; disposition complicated by cognitive impairment requiring guardianship on 02/26/21 developed hypoxia, dyspnea -> CHF exacerbation with NSTEMI on 7/16/21 had 2 episodes of junctional bradycardia/sinus pause associated with BM and vomiting # Resistant HTN BP trending improving, continue below meds Renal artery stenosis not seen on CT angio Nifedipine 120 Imdur 30 Clonodine 0.1mg patch q weekly (pulse as been greater than 55 during vitals, not on tele) Losartan 100 Hydralazine 50 Aldactone 50 Dozazosin 2mg # sinus pause, junctional bradycardia. No further episodes - likely vasovagal; Cardiology concurs. 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 - SCr improved; monitor BMP, avoid nephrotoxins # acute hypoxic RF - resolved # normocytic anemia - likely JI + ACKD, repleted Fe IV and transfused 2u pRBCs and Hb improved # cognitive impairment - evaluated by psychiatry and does need guardianship + awaiting paperwork # DM2 complicated by hypoglycemia - d/c'ed metformin due to worsening renal function, added glipizide, recommend strict diabetic diet # hypothyroidism - continue LT4 # C diff colitis - resolved, s/p 14d of vancomycin treatment # acute grief reaction/depression - due to passing of , seems stable # VTE ppx - UFH Full code dispo - waiting placement/guardianship DVT pptx - low risk, [facility] St[facility] Does the patient have a stroke diagnosis?: No VTE Prior VTE?: No VTE Risk Level:: Medical - moderate - high VTE Device Contraindication: N/A - Device Ordered VTE Drug Contraindication: N/A - Med Ordered
[2021-03-13] MEDS: cloNIDine 0.1 MG PATCH.TDWK TRANSDERMA (09:25)
--- NOTE | 2021-03-13 11:06 | PM.PNNEP ---
Subjective Subjective Date of Service: 03/13/21 Interval history: seen and examined in a good mood today BP is better ROS General - no fevers or chills Cardiovascular - no chest pain Respiratory - no shortness of breath or cough Abdominal- no abdominal pain, nausea, vomiting, diarrhea Physical Exam Vital Signs: Vital Signs: Last Vital Signs Temp 98.2 F 03/13/21 07:26 Pulse 58 03/13/21 09:25 Resp 18 03/13/21 07:26 BP 150/58 H 03/13/21 09:25 Pulse Ox 94 03/13/21 07:26 Body Mass Index 20.1 Const General: alert and awake Nutritional Appearance: well nourished Limitations: no limitations and other limitations (Question if the patient remembers events correctly) HENMT Head: Yes normocephalic and Yes atraumatic Eyes Sclerae: sclerae normal Chest Chest palpation & inspection: normal inspection of the chest Resp Effort & Inspection: normal respiratory effort and no respiratory distress Cardio Rate: regular rate Rhythm: regular rhythm GI Palpation (GI): Soft to palpation and nontender Neuro Cranial nerves: Yes CN's II-XII intact bilaterally and Yes Bilaterally intact EOM present Psych Objective Data Labs CBC & Chem 7: 03/04/21 05:36 03/08/21 05:57 Labs: Laboratory Results - last 24 hr 03/12/21 03/13/21 20:53 07:24 POC Glucose 283 H 133 H Microbiology Microbiology Results: Microbiology 11/24/20 08:18 Stool Stool Culture - Final 09/21/20 Unknown Urine clean catch - Clean Catch Midstream Urine Culture - Final No growth. Procedures Date of Service Date of Service: 03/13/21 Assessment & Plan Time Spent With Patient Time: 85yo F with HTN, HLD, DM2, hypothyroidism, CAD s/p PCI. initially admitted with falls, elevated troponin; disposition complicated by cognitive impairment requiring guardianship Resistant HTN: w/u to r/o 2ry causes--dopplerr and MRA inconclusive for TIMMY and now CTA repoprtedly neg for TIMMY REC: Cont aldactone 50 qd and cardura 2 mg qhs; Continue Hydrazine / Nifedipine - Same dose Clonidine patch as ordered No Changes today Total time spent is greater than 50% in coordination of care (as documented) at patient's floor/unit and/or counseling patient: Progress Note: Quality Stroke Does the patient have a stroke diagnosis?: No
[2021-03-13] MEDS: Doxazosin Mesylate 2 MG TABLET PO (20:10)
[2021-03-13] MEDS: Atorvastatin Calcium 80 MG TABLET PO (20:11)
[2021-03-14] VITALS: BP 163/47; PULSE 61; RESP 16; TEMP 36.9; O2SAT 97
[2021-03-14] MEDS: Levothyroxine Sodium 75 MCG TABLET PO (06:39)
[2021-03-14 07:21] VITALS: BP 168/62; PULSE 57; RESP 16; TEMP 36.3; O2SAT 96
[2021-03-14 07:30] LABS: Glucose, Whole Blood 169 mg/dL (60-115)
[2021-03-14] MEDS: Losartan Potassium 50 MG TABLET 100 MG PO (07:37)
[2021-03-14] MEDS: Ferrous Sulfate 324 MG TABLET.DR PO (07:37)
[2021-03-14] MEDS: hydrALAZINE HCl 50 MG TABLET PO ×3 (07:37→21:08)
[2021-03-14] MEDS: Isosorbide Mononitrate 30 MG TAB.ER.24H PO (07:37)
[2021-03-14] MEDS: Spironolactone 25 MG TABLET 50 MG PO (07:37)
[2021-03-14] MEDS: NIFEdipine ER 60 MG TAB.ER.24 120 MG PO (07:38)
[2021-03-14] MEDS: Aspirin 81 MG TAB.CHEW PO (07:38)
[2021-03-14] MEDS: glipiZIDE 5 MG TABLET 2.5 MG PO ×2 (07:38→15:51)
--- NOTE | 2021-03-14 10:50 | HO.PM.IMPN ---
Subjective Subjective Date of Service: 03/14/21 Interval History: seen and examined this AM no new issues no complaints Physical Exam Vital Signs: Vital Signs: Last Vital Signs Temp 97.3 F 03/14/21 07:21 Pulse 57 03/14/21 07:21 Resp 16 03/14/21 07:21 BP 168/62 H 03/14/21 07:21 Pulse Ox 96 03/14/21 07:21 Body Mass Index 20.1 Const: General: alert and awake Nutritional Appearance: well nourished Limitations: no limitations and other limitations (Question if the patient remembers events correctly) HENMT: Head: Yes normocephalic and Yes atraumatic Eyes: Sclerae: sclerae normal Chest: Chest palpation & inspection: normal inspection of the chest Resp: Effort & Inspection: normal respiratory effort and no respiratory distress Cardio: Rate: regular rate Rhythm: regular rhythm GI: Palpation (GI): Soft to palpation and nontender Neuro: Cranial nerves: Yes CN's II-XII intact bilaterally and Yes Bilaterally intact EOM present Psych: Insight: Limited insight present (Psych) Objective Data Current Medications Generic Name Dose Route Start Last Admin Trade Name Sachaq PRN Reason Stop Dose Admin Aspirin 81 mg 02/28/21 09:00 03/14/21 07:38 Aspirin 81 Mg Tab.Chew PO 81 mg DAILY RAGHAVENDRA Administration Atorvastatin Calcium 80 mg 02/27/21 08:00 03/13/21 20:11 Atorvastatin Calcium 80 Mg Tablet PO 80 mg BEDTIME RAGHAVENDRA Administration Clonidine 0.1 mg 03/13/21 09:00 03/13/21 09:25 Clonidine 0.1 Mg Patch.Tdwk TRANSDERMA 0.1 mg Tu@0900 RAGHAVENDRA Administration Protocol Doxazosin Mesylate 2 mg 03/10/21 21:00 03/13/21 20:10 Doxazosin Mesylate 2 Mg Tablet PO 2 mg BEDTIME RAGHAVENDRA Administration Protocol Ferrous Sulfate 324 mg 02/28/21 09:00 03/14/21 07:37 Ferrous Sulfate 324 Mg Tablet.Dr PO 324 mg DAILY RAGHAVENDRA Administration Glipizide 2.5 mg 02/24/21 17:00 03/14/21 07:38 Glipizide 5 Mg Tablet PO 2.5 mg BIDWM RAGHAVENDRA Administration Guaifenesin/Dextromethorphan 5 ml 03/02/21 23:01 Guaifenesin Dm 100/10/5 Ml 5 Ml Syrup PO Q6H PRN cough Hydralazine HCl 50 mg 03/08/21 15:00 03/14/21 07:37 Hydralazine Hcl 50 Mg Tablet PO 50 mg TID RAGHAVENDRA Administration Protocol Isosorbide Mononitrate 30 mg 03/04/21 14:30 03/14/21 07:37 Isosorbide Mononitrate 30 Mg Tab.Er.24h PO 30 mg DAILY RAGHAVENDRA Administration Protocol Levothyroxine Sodium 75 mcg 01/13/21 09:00 03/14/21 06:39 Levothyroxine Sodium 75 Mcg Tablet PO 75 mcg DAILY@0600 RAGHAVENDRA Administration Losartan Potassium 100 mg 03/08/21 09:00 03/14/21 07:37 Losartan Potassium 50 Mg Tablet PO 100 mg DAILY RAGHAVENDRA Administration Protocol Nifedipine 120 mg 02/13/21 09:00 03/14/21 07:38 Nifedipine Er 60 Mg Tab.Er.24 PO 120 mg DAILY RAGHAVENDRA Administration Protocol Ondansetron HCl 4 mg 03/02/21 14:26 03/02/21 12:30 Ondansetron Hcl 4 Mg/2 Ml Vial IVPUSH 4 mg Q4H PRN Administration nausea/vomiting Spironolactone 50 mg 03/11/21 09:00 03/14/21 07:37 Spironolactone 25 Mg Tablet PO 50 mg DAILY RAGHAVENDRA Administration Protocol Labs CBC & Chem 7: 03/04/21 05:36 03/08/21 05:57 Labs: Laboratory Results - last 24 hr 03/14/21 07:24 POC Glucose 169 H Assessment and Plan (1) HTN (hypertension): Status: Acute Assessment and Plan: 85yo F with HTN, HLD, DM2, hypothyroidism, CAD s/p PCI. initially admitted with falls, elevated troponin; disposition complicated by cognitive impairment requiring guardianship on 02/26/21 developed hypoxia, dyspnea -> CHF exacerbation with NSTEMI on 03/02/21 had 2 episodes of junctional bradycardia/sinus pause associated with BM and vomiting # Resistant HTN BP improved, changes per nephrology recs made Renal artery stenosis not seen on CT angio Nifedipine 120 Imdur 30 Clonodine 0.1mg patch q weekly (pulse as been greater than 55 during vitals, not on tele) Losartan 100 Hydralazine 50 Aldactone 50 Dozazosin 2mg # sinus pause, junctional bradycardia. No further episodes - likely vasovagal; Cardiology concurs. 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, repleted Fe IV and transfused 2u pRBCs and Hb improved # cognitive impairment - evaluated by psychiatry and does need guardianship + awaiting paperwork # DM2 complicated by hypoglycemia - d/c'ed metformin due to worsening renal function, added glipizide, recommend strict diabetic diet # hypothyroidism - continue LT4 # C diff colitis - resolved, s/p 14d of vancomycin treatment # acute grief reaction/depression - due to passing of , seems stable # VTE ppx - UFH Full code dispo - waiting placement/guardianship DVT pptx - low risk, she ambulates multiple times throughout the day in the [facility] Stroke Does the patient have a stroke diagnosis?: No VTE Prior VTE?: No VTE Risk Level:: Medical - moderate - high VTE Device Contraindication: N/A - Device Ordered VTE Drug Contraindication: N/A - Med Ordered
--- NOTE | 2021-03-14 11:29 | PM.PNNEP ---
Subjective Subjective Date of Service: 03/14/21 Interval history: seen and examined this AM no new issues no complaints Physical Exam Vital Signs: Vital Signs: Last Vital Signs Temp 97.3 F 03/14/21 07:21 Pulse 57 03/14/21 07:21 Resp 16 03/14/21 07:21 BP 168/62 H 03/14/21 07:21 Pulse Ox 96 03/14/21 07:21 Body Mass Index 20.1 Const General:?alert and awake Nutritional Appearance:?well nourished Limitations:?no limitations and other limitations (Question if the patient remembers events correctly) HENMT Head:?Yes normocephalic and Yes atraumatic Eyes Sclerae:?sclerae normal Chest Chest palpation & inspection:?normal inspection of the chest Resp Effort & Inspection:?normal respiratory effort and no respiratory distress Cardio Rate:?regular rate Rhythm:?regular rhythm GI Palpation (GI):?Soft to palpation and nontender Neuro Cranial nerves:?Yes CN's II-XII intact bilaterally and Yes Bilaterally intact EOM present Psych Insight:?Limited insight present (Psych) Objective Data Labs CBC & Chem 7: 03/04/21 05:36 03/08/21 05:57 Labs: Laboratory Results - last 24 hr 03/14/21 07:24 POC Glucose 169 H Microbiology Microbiology Results: Microbiology 11/24/20 08:18 Stool Stool Culture - Final 09/21/20 Unknown Urine clean catch - Clean Catch Midstream Urine Culture - Final No growth. Procedures Date of Service Date of Service: 03/14/21 Assessment & Plan Time Spent With Patient Time: 85yo F with HTN, HLD, DM2, hypothyroidism, CAD s/p PCI. initially admitted with falls, elevated troponin; disposition complicated by cognitive impairment requiring guardianship Resistant HTN: w/u to r/o 2ry causes--dopplerr and MRA inconclusive for TIMMY and now CTA repoprtedly neg for TIMMY REC: Cont aldactone 50 qd and? cardura 2 mg qhs; Continue Hydrazine / Nifedipine - Same dose Clonidine patch as ordered- Can increase to # 2 q weekly No Changes today Total time spent is greater than 50% in coordination of care (as documented) at patient's floor/unit and/or counseling patient: Progress Note: Quality Stroke Does the patient have a stroke diagnosis?: No
[2021-03-14 15:35] VITALS: BP 133/62; PULSE 56; RESP 16; TEMP 36.4; O2SAT 97
[2021-03-14 21:08] VITALS: BP 146/66; PULSE 61
[2021-03-14] MEDS: Doxazosin Mesylate 2 MG TABLET PO (21:08)
[2021-03-14] MEDS: Atorvastatin Calcium 80 MG TABLET PO (21:09)
[2021-03-14 23:31] VITALS: BP 166/69; PULSE 57; RESP 16; TEMP 36.7; O2SAT 96
[2021-03-15] MEDS: Levothyroxine Sodium 75 MCG TABLET PO (06:19)
[2021-03-15 07:21] VITALS: BP 190/66; PULSE 52; RESP 17; TEMP 36.2; O2SAT 97
[2021-03-15 07:27] LABS: Glucose, Whole Blood 154 mg/dL (60-115)
--- NOTE | 2021-03-15 08:31 | MHC.CM.PN ---
we are still waiting for conservator/guardian to complete [employer] application, then dc plan is to snf. cm to cont. to follow.
[2021-03-15] MEDS: glipiZIDE 5 MG TABLET 2.5 MG PO ×2 (08:50→16:20)
[2021-03-15] MEDS: Losartan Potassium 50 MG TABLET 100 MG PO (08:51)
[2021-03-15] MEDS: Isosorbide Mononitrate 30 MG TAB.ER.24H PO (08:51)
[2021-03-15] MEDS: Aspirin 81 MG TAB.CHEW PO (08:51)
[2021-03-15] MEDS: NIFEdipine ER 60 MG TAB.ER.24 120 MG PO (08:51)
[2021-03-15] MEDS: Ferrous Sulfate 324 MG TABLET.DR PO (08:51)
[2021-03-15] MEDS: hydrALAZINE HCl 50 MG TABLET PO ×3 (08:51→21:07)
[2021-03-15] MEDS: Spironolactone 25 MG TABLET 50 MG PO (08:51)
--- NOTE | 2021-03-15 11:28 | P.PNIM_ITS ---
Subjective Subjective Date of Service: 03/15/21 Interval History: seen and examined this AM no new complaints Physical Exam Vital Signs: Vital Signs: Last Vital Signs Temp 97.2 F 03/15/21 07:21 Pulse 52 03/15/21 07:21 Resp 17 03/15/21 07:21 BP 190/66 H 03/15/21 07:21 Pulse Ox 97 03/15/21 07:21 Body Mass Index 20.1 General - no acute distress, appears comfortable Cardiovascular - regular rate and rhythm, S1-S2 Lungs - normal respiratory effort, clear to auscultation bilaterally, no wheezing Abdomen - soft, nontender, no rebound or guarding Extremities - no edema bilaterally Neuro - awake and alert, no focal deficits Const: General: alert and awake Nutritional Appearance: well nourished Limitations: no limitations and other limitations (Question if the patient remembers events correctly) HENMT: Head: Yes normocephalic and Yes atraumatic Eyes: Sclerae: sclerae normal Chest: Chest palpation & inspection: normal inspection of the chest Resp: Effort & Inspection: normal respiratory effort and no respiratory distress Cardio: Rate: regular rate Rhythm: regular rhythm GI: Palpation (GI): Soft to palpation and nontender Neuro: Cranial nerves: Yes CN's II-XII intact bilaterally and Yes Bilaterally intact EOM present Psych: Insight: Limited insight present (Psych) Objective Data Current Medications Generic Name Dose Route Start Last Admin Trade Name Srinivas PRN Reason Stop Dose Admin Aspirin 81 mg 02/28/21 09:00 03/15/21 08:51 Aspirin 81 Mg Tab.Chew PO 81 mg DAILY RAGHAVENDRA Administration Atorvastatin Calcium 80 mg 02/27/21 08:00 03/14/21 21:09 Atorvastatin Calcium 80 Mg Tablet PO 80 mg BEDTIME RAGHAVENDRA Administration Clonidine 0.1 mg 03/13/21 09:00 03/13/21 09:25 Clonidine 0.1 Mg Patch.Tdwk TRANSDERMA 0.1 mg Tu@0900 RAGHAVENDRA Administration Protocol Doxazosin Mesylate 2 mg 03/10/21 21:00 03/14/21 21:08 Doxazosin Mesylate 2 Mg Tablet PO 2 mg BEDTIME RAGHAVENDRA Administration Protocol Ferrous Sulfate 324 mg 02/28/21 09:00 03/15/21 08:51 Ferrous Sulfate 324 Mg Tablet. PO 324 mg DAILY RAGHAVENDRA Administration Glipizide 2.5 mg 02/24/21 17:00 03/15/21 08:50 Glipizide 5 Mg Tablet PO 2.5 mg BIDWM RAGHAVENDRA Administration Guaifenesin/Dextromethorphan 5 ml 03/02/21 23:01 Guaifenesin Dm 100/10/5 Ml 5 Ml Syrup PO Q6H PRN cough Hydralazine HCl 50 mg 03/08/21 15:00 03/15/21 08:51 Hydralazine Hcl 50 Mg Tablet PO 50 mg TID RAGHAVENDRA Administration Protocol Isosorbide Mononitrate 30 mg 03/04/21 14:30 03/15/21 08:51 Isosorbide Mononitrate 30 Mg Tab.Er.24h PO 30 mg DAILY RAGHAVENDRA Administration Protocol Levothyroxine Sodium 75 mcg 01/13/21 09:00 03/15/21 06:19 Levothyroxine Sodium 75 Mcg Tablet PO 75 mcg DAILY@0600 RAGHAVENDRA Administration Losartan Potassium 100 mg 03/08/21 09:00 03/15/21 08:51 Losartan Potassium 50 Mg Tablet PO 100 mg DAILY RAGHAVENDRA Administration Protocol Nifedipine 120 mg 02/13/21 09:00 03/15/21 08:51 Nifedipine Er 60 Mg Tab.Er.24 PO 120 mg DAILY RAGHAVENDRA Administration Protocol Ondansetron HCl 4 mg 03/02/21 14:26 03/02/21 12:30 Ondansetron Hcl 4 Mg/2 Ml Vial IVPUSH 4 mg Q4H PRN Administration nausea/vomiting Spironolactone 50 mg 03/11/21 09:00 03/15/21 08:51 Spironolactone 25 Mg Tablet PO 50 mg DAILY RAGHAVENDRA Administration Protocol Labs CBC & Chem 7: 03/04/21 05:36 03/08/21 05:57 Labs: Laboratory Results - last 24 hr 03/15/21 07:20 POC Glucose 154 H Assessment and Plan (1) HTN (hypertension): Status: Acute Assessment and Plan: 85yo F with HTN, HLD, DM2, hypothyroidism, CAD s/p PCI. initially admitted with falls, elevated troponin; disposition complicated by cognitive impairment requiring guardianship on 02/26/21 developed hypoxia, dyspnea -> CHF exacerbation with NSTEMI on 03/02/21 had 2 episodes of junctional bradycardia/sinus pause associated with BM and vomiting # Resistant HTN BP improved, changes per nephrology recs made Renal artery stenosis not seen on CT angio Nifedipine 120 Imdur 30 Clonodine 0.1mg patch q weekly (pulse as been greater than 55 during vitals, not on tele) Losartan 100 Hydralazine 50 Aldactone 50 Dozazosin 2mg # sinus pause, junctional bradycardia. No further episodes - likely vasovagal; Cardiology concurs. 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, repleted Fe IV and transfused 2u pRBCs and Hb improved # cognitive impairment - evaluated by psychiatry and does need guardianship + awaiting paperwork # DM2 complicated by hypoglycemia - d/c'ed metformin due to worsening renal function, added glipizide, recommend strict diabetic diet # hypothyroidism - continue LT4 # C diff colitis - resolved, s/p 14d of vancomycin treatment # acute grief reaction/depression - due to passing of , seems stable # VTE ppx - UFH Full code dispo - waiting placement/guardianship DVT pptx - low risk, she ambulates multiple times throughout the day in the hallways Assessment and Plan: 85yo F with HTN, HLD, DM2, hypothyroidism, CAD s/p PCI. initially admitted with falls, elevated troponin; disposition complicated by cognitive impairment requiring guardianship on 02/26/21 developed hypoxia, dyspnea -> CHF exacerbation with NSTEMI on 03/02/21 had 2 episodes of junctional bradycardia/sinus pause associated with BM and vomiting # Resistant HTN BP improved, changes per nephrology recs made Renal artery stenosis not seen on CT angio Nifedipine 120 Imdur 30 Clonodine 0.1mg patch q weekly (pulse as been greater than 55 during vitals, not on tele) Losartan 100 Hydralazine 50 Aldactone 50 Dozazosin 2mg # sinus pause, junctional bradycardia.? No further episodes - likely vasovagal; Cardiology concurs.? 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, repleted Fe IV and transfused 2u pRBCs and Hb improved # cognitive impairment - evaluated by psychiatry and does need guardianship + awaiting paperwork # DM2 complicated by hypoglycemia - d/c'ed metformin due to worsening renal function, added glipizide, recommend strict diabetic diet # hypothyroidism ?- continue LT4 # C diff colitis - resolved, s/p 14d of vancomycin treatment # acute grief reaction/depression - due to passing of , seems stable # VTE ppx - UFH Full code dispo - waiting placement/guardianship DVT pptx - low risk, she ambulates multiple times throughout the day in the hallways Quality Stroke Does the patient have a stroke diagnosis?: No VTE Prior VTE?: No VTE Risk Level:: Medical - moderate - high VTE Device Contraindication: N/A - Device Ordered VTE Drug Contraindication: N/A - Med Ordered
--- NOTE | 2021-03-15 12:49 | PM.PNNEP ---
Subjective Subjective Date of Service: 03/15/21 Interval history: seen and examined this AM no new complaints BP fluctuant - High this AM before meds Physical Exam Vital Signs: Vital Signs: Last Vital Signs Temp 97.2 F 03/15/21 07:21 Pulse 52 03/15/21 07:21 Resp 17 03/15/21 07:21 BP 190/66 H 03/15/21 07:21 Pulse Ox 97 03/15/21 07:21 Body Mass Index 20.1 General - no acute distress, appears comfortable Cardiovascular - regular rate and rhythm, S1-S2 Lungs - normal respiratory effort, clear to auscultation bilaterally, no wheezing Abdomen - soft, nontender, no rebound or guarding Extremities - no edema bilaterally Neuro - awake and alert, no focal deficits Const General:?alert and awake Nutritional Appearance:?well nourished Limitations:?no limitations and other limitations (Question if the patient remembers events correctly) HENMT Head:?Yes normocephalic and Yes atraumatic Eyes Sclerae:?sclerae normal Chest Chest palpation & inspection:?normal inspection of the chest Resp Effort & Inspection:?normal respiratory effort and no respiratory distress Cardio Rate:?regular rate Rhythm:?regular rhythm GI Palpation (GI):?Soft to palpation and nontender Neuro Cranial nerves:?Yes CN's II-XII intact bilaterally and Yes Bilaterally intact EOM present Psych Insight:?Limited insight present (Psych) Objective Data Labs CBC & Chem 7: 03/04/21 05:36 03/08/21 05:57 Labs: Laboratory Results - last 24 hr 03/15/21 07:20 POC Glucose 154 H Microbiology Microbiology Results: Microbiology 11/24/20 08:18 Stool Stool Culture - Final 09/21/20 Unknown Urine clean catch - Clean Catch Midstream Urine Culture - Final No growth. Procedures Date of Service Date of Service: 03/15/21 Assessment & Plan Time Spent With Patient Time: 85yo F with HTN, HLD, DM2, hypothyroidism, CAD s/p PCI. initially admitted with falls, elevated troponin; disposition complicated by cognitive impairment requiring guardianship Resistant HTN: w/u to r/o 2ry causes--dopplerr and MRA inconclusive for TIMMY and now CTA repoprtedly neg for TIMMY REC: Cont aldactone 50 qd and? cardura 2 mg qhs; Continue Nifedipine - Same dose Hydrazine can be increased to 100 mg TID Clonidine patch as ordered- Can increase to # 2 q weekly LAbs ordered for Am No Changes today Total time spent is greater than 50% in coordination of care (as documented) at patient's floor/unit and/or counseling patient: Progress Note: Quality Stroke Does the patient have a stroke diagnosis?: No
[2021-03-15 15:48] VITALS: BP 123/59; PULSE 53; RESP 18; TEMP 36.2; O2SAT 98
[2021-03-15 16:41] LABS: Glucose, Whole Blood 165 mg/dL (60-115)
[2021-03-15 21:07] VITALS: BP 150/74; PULSE 64
[2021-03-15] MEDS: Atorvastatin Calcium 80 MG TABLET PO (21:07)
[2021-03-15 21:08] VITALS: BP 150/74; PULSE 64
[2021-03-15] MEDS: Doxazosin Mesylate 2 MG TABLET PO (21:08)
[2021-03-15 23:53] VITALS: BP 159/62; PULSE 58; RESP 18; TEMP 36.3; O2SAT 94
[2021-03-16] MEDS: Levothyroxine Sodium 75 MCG TABLET PO (06:26)
[2021-03-16 06:49] LABS: Anion Gap 11 (12-20); Blood Urea Nitrogen 40 mg/dL (9-16); Carbon Dioxide 25 mmol/L (22-29); Chloride 110 mmol/L (96-108); Creatinine Clr Calc Pharmacy 28.1; Estimated Glomerular Filt Rate 42; Glucose Random 208 mg/dL (60-115); Potassium 4.2 mmol/L (3.3-5.1); Sodium 142 mmol/L (135-145)
[2021-03-16 07:46] VITALS: BP 138/62; PULSE 52; RESP 17; TEMP 36.6; O2SAT 95
[2021-03-16] MEDS: NIFEdipine ER 60 MG TAB.ER.24 120 MG PO (08:52)
[2021-03-16] MEDS: Spironolactone 25 MG TABLET 50 MG PO (08:52)
[2021-03-16] MEDS: Isosorbide Mononitrate 30 MG TAB.ER.24H PO (08:52)
[2021-03-16] MEDS: glipiZIDE 5 MG TABLET 2.5 MG PO ×2 (08:52→17:09)
[2021-03-16] MEDS: hydrALAZINE HCl 50 MG TABLET PO ×2 (08:52→20:46)
[2021-03-16] MEDS: Ferrous Sulfate 324 MG TABLET.DR PO (08:52)
[2021-03-16] MEDS: Losartan Potassium 50 MG TABLET 100 MG PO (08:52)
[2021-03-16] MEDS: Aspirin 81 MG TAB.CHEW PO (08:52)
--- NOTE | 2021-03-16 09:22 | HO.PM.IMPN ---
Subjective Subjective Date of Service: 03/16/21 Interval History: seen and examined this AM no new complaints no new issues reported Physical Exam Vital Signs: Vital Signs: Last Vital Signs Temp 97.8 F 03/16/21 07:46 Pulse 52 03/16/21 07:46 Resp 17 03/16/21 07:46 BP 138/62 03/16/21 07:46 Pulse Ox 95 03/16/21 07:46 Body Mass Index 20.1 Const: General: alert and awake Nutritional Appearance: well nourished Limitations: no limitations and other limitations (Question if the patient remembers events correctly) HENMT: Head: Yes normocephalic and Yes atraumatic Eyes: Sclerae: sclerae normal Chest: Chest palpation & inspection: normal inspection of the chest Resp: Effort & Inspection: normal respiratory effort and no respiratory distress Cardio: Rate: regular rate Rhythm: regular rhythm GI: Palpation (GI): Soft to palpation and nontender Neuro: Cranial nerves: Yes CN's II-XII intact bilaterally and Yes Bilaterally intact EOM present Psych: Insight: Limited insight present (Psych) Objective Data Current Medications Generic Name Dose Route Start Last Admin Trade Name Freq PRN Reason Stop Dose Admin Aspirin 81 mg 02/28/21 09:00 03/16/21 08:52 Aspirin 81 Mg Tab.Chew PO 81 mg DAILY RAGHAVENDRA Administration Atorvastatin Calcium 80 mg 02/27/21 08:00 03/15/21 21:07 Atorvastatin Calcium 80 Mg Tablet PO 80 mg BEDTIME RAGHAVENDRA Administration Clonidine 0.1 mg 03/13/21 09:00 03/13/21 09:25 Clonidine 0.1 Mg Patch.Tdwk TRANSDERMA 0.1 mg Tu@0900 RAGHAVENDRA Administration Protocol Doxazosin Mesylate 2 mg 03/10/21 21:00 03/15/21 21:08 Doxazosin Mesylate 2 Mg Tablet PO 2 mg BEDTIME RAGHAVENDRA Administration Protocol Ferrous Sulfate 324 mg 02/28/21 09:00 03/16/21 08:52 Ferrous Sulfate 324 Mg Tablet.Dr PO 324 mg DAILY RAGHAVENDRA Administration Glipizide 2.5 mg 02/24/21 17:00 03/16/21 08:52 Glipizide 5 Mg Tablet PO 2.5 mg BIDWM RAGHAVENDRA Administration Guaifenesin/Dextromethorphan 5 ml 03/02/21 23:01 Guaifenesin Dm 100/10/5 Ml 5 Ml Syrup PO Q6H PRN cough Hydralazine HCl 50 mg 03/08/21 15:00 03/16/21 08:52 Hydralazine Hcl 50 Mg Tablet PO 50 mg TID RAGHAVENDRA Administration Protocol Isosorbide Mononitrate 30 mg 03/04/21 14:30 03/16/21 08:52 Isosorbide Mononitrate 30 Mg Tab.Er.24h PO 30 mg DAILY RAGHAVENDRA Administration Protocol Levothyroxine Sodium 75 mcg 01/13/21 09:00 03/16/21 06:26 Levothyroxine Sodium 75 Mcg Tablet PO 75 mcg DAILY@0600 RAGHAVENDRA Administration Losartan Potassium 100 mg 03/08/21 09:00 03/16/21 08:52 Losartan Potassium 50 Mg Tablet PO 100 mg DAILY RAGHAVENDRA Administration Protocol Nifedipine 120 mg 02/13/21 09:00 03/16/21 08:52 Nifedipine Er 60 Mg Tab.Er.24 PO 120 mg DAILY RAGHAVENDRA Administration Protocol Ondansetron HCl 4 mg 03/02/21 14:26 03/02/21 12:30 Ondansetron Hcl 4 Mg/2 Ml Vial IVPUSH 4 mg Q4H PRN Administration nausea/vomiting Spironolactone 50 mg 03/11/21 09:00 03/16/21 08:52 Spironolactone 25 Mg Tablet PO 50 mg DAILY [facility] Administration Protocol Labs CBC & Chem 7: 03/04/21 05:36 03/16/21 06:09 Labs: Laboratory Results - last 24 hr 03/15/21 03/16/21 16:07 06:09 Anion Gap 11 L Estim Creat Clear Calc 28.1 Estimated GFR 42 POC Glucose 165 H Random Glucose 208 H D Calcium 9.0 Assessment and Plan (1) HTN (hypertension): Status: Acute Assessment and Plan: 85yo F with HTN, HLD, DM2, hypothyroidism, CAD s/p PCI. initially admitted with falls, elevated troponin; disposition complicated by cognitive impairment requiring guardianship on 02/26/21 developed hypoxia, dyspnea -> CHF exacerbation with NSTEMI on 03/02/21 had 2 episodes of junctional bradycardia/sinus pause associated with BM and vomiting No new events last 24 hours, continue the below care. # Resistant HTN Renal artery stenosis not seen on CT angio Nifedipine 120 Imdur 30 Clonodine 0.1mg patch q weekly (pulse as been greater than 55 during vitals, not on tele) Losartan 100 Hydralazine 50 Aldactone 50 Dozazosin 2mg # sinus pause, junctional bradycardia. No further episodes - likely vasovagal; Cardiology concurs. 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, repleted Fe IV and transfused 2u pRBCs and Hb improved # cognitive impairment - evaluated by psychiatry and does need guardianship + awaiting paperwork # DM2 complicated by hypoglycemia - d/c'ed metformin due to worsening renal function, added glipizide, recommend strict diabetic diet # hypothyroidism - continue LT4 # C diff colitis - resolved, s/p 14d of vancomycin treatment # acute grief reaction/depression - due to passing of , seems stable # VTE ppx - UFH Full code dispo - waiting placement/guardianship DVT pptx - low risk, she ambulates multiple times throughout the day in the hallways Assessment and Plan: 85yo F with HTN, HLD, DM2, hypothyroidism, CAD s/p PCI. initially admitted with falls, elevated troponin; disposition complicated by cognitive impairment requiring guardianship on 02/26/21 developed hypoxia, dyspnea -> CHF exacerbation with NSTEMI on 03/02/21 had 2 episodes of junctional bradycardia/sinus pause associated with BM and vomiting # Resistant HTN BP improved, changes per nephrology recs made Renal artery stenosis not seen on CT angio Nifedipine 120 Imdur 30 Clonodine 0.1mg patch q weekly (pulse as been greater than 55 during vitals, not on tele) Losartan 100 Hydralazine 50 Aldactone 50 Dozazosin 2mg # sinus pause, junctional bradycardia.? No further episodes - likely vasovagal; Cardiology concurs.? 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, repleted Fe IV and transfused 2u pRBCs and Hb improved # cognitive impairment - evaluated by psychiatry and does need guardianship + awaiting paperwork # DM2 complicated by hypoglycemia - d/c'ed metformin due to worsening renal function, added glipizide, recommend strict diabetic diet # hypothyroidism ?- continue LT4 # C diff colitis - resolved, s/p 14d of vancomycin treatment # acute grief reaction/depression - due to passing of , seems stable # VTE ppx - UFH Full code dispo - waiting placement/guardianship DVT pptx - low risk, she ambulates multiple times throughout the day in the hallways Quality Stroke Does the patient have a stroke diagnosis?: No VTE Prior VTE?: No VTE Risk Level:: Medical - moderate - high VTE Device Contraindication: N/A - Device Ordered VTE Drug Contraindication: N/A - Med Ordered
--- NOTE | 2021-03-16 13:31 | MHC.CARE ---
CARE Team took Pt outside to provide support.
--- NOTE | 2021-03-16 13:54 | MHC.CM.PN ---
NURSE WAREHOUSE ORDER PICKER FOLLOW UP CALLED TO ML , SHE WILL CHECK IN ON THE PROGRESS OF ADMINISTRATION REVIEWING PATIENTS FOR [id number] AT HER FACILITY CALLED ON 03/14 AND AGAIN TODAY AND STILL THEY ARE REVIEWING . PATIENT VERY UPSET THIS MORNING WANTING TO LEAVE BUT MADE NO ATTEMPTS AT THIS, JUST NEEDED SOMEONE TO LISTEN TO HER AND SHE BECAME JOY , PATIENT THEN BECAME MORE UPSET SHE RECEIVED A ;LETTER FROM THE [facility] TRIAL PROBATE AND FAMILY COURT WITH ASSIGNED CONSERVATOR AND SUMMARY OF ATTACHED SCHEDULES OF PERSONAL PROPERTY AND ESTATE PROPERTY . WAREHOUSE ORDER PICKER CO WORKER WENT TO TALK WITH PATIENT DISCHARGE -HAS CONSERVATOR AND GUARDIAN CRISTINA DIXON STARTED THE [place] APPLICATION REFERRALS TO SEVERAL [facility] FACILITIES FOR REHAB ACUTE INPATIENT (NSTEMI, CHF, ABELARDO HTN- ONLY ONE TO RESPOND FAVORABBLY WAS [facility] BUT NO BED AVAILABILITY AND [facility] , STILL PENDING DECISION
[2021-03-16 15:14] VITALS: BP 107/54; PULSE 61; RESP 14; TEMP 36.3; O2SAT 97
[2021-03-16 16:54] LABS: Glucose, Whole Blood 212 mg/dL (60-115)
[2021-03-16] MEDS: Atorvastatin Calcium 80 MG TABLET PO (20:42)
[2021-03-16 20:46] VITALS: BP 184/74; PULSE 64; PULSE 68
[2021-03-16] MEDS: Doxazosin Mesylate 2 MG TABLET PO (20:46)
[2021-03-16 23:41] VITALS: BP 144/47; PULSE 59; RESP 16; TEMP 36; O2SAT 97
[2021-03-17] MEDS: Levothyroxine Sodium 75 MCG TABLET PO (05:52)
[2021-03-17 07:29] VITALS: BP 144/74; PULSE 54; RESP 16; TEMP 36.2; O2SAT 96
[2021-03-17 07:38] LABS: Glucose, Whole Blood 177 mg/dL (60-115)
--- NOTE | 2021-03-17 08:43 | HO.PM.IMPN ---
Subjective Subjective Date of Service: 03/17/21 <DANISH Archibald - Last Filed: 03/17/21 08:48> 03/17/21 <Adolfo Diaz MD - Last Filed: 03/17/21 09:20> Interval History: seen and examined this morning no overnight events. no complaints. denies sob, chest pain, nausea or vomiting <DANISH Archibald - Last Filed: 03/17/21 08:48> Review of Systems Review of Systems: Yes all other systems are reviewed and are negative <DANISH Archibald - Last Filed: 03/17/21 08:48> Constitutional Constitutional: Denies chills and Denies fever(s) <DANISH Archibald - Last Filed: 03/17/21 08:48> Cardiovascular Cardiovascular: Denies chest pain <DANISH Archibald - Last Filed: 03/17/21 08:48> Respiratory Respiratory: Denies cough <DANISH Archibald - Last Filed: 03/17/21 08:48> Gastrointestinal Gastrointestinal: Denies abdominal pain <DANISH Archibald - Last Filed: 03/17/21 08:48> Physical Exam Vital Signs: Vital Signs: Last Vital Signs Temp 97.2 F 03/17/21 07:29 Pulse 54 03/17/21 07:29 Resp 16 03/17/21 07:29 BP 144/74 H 03/17/21 07:29 Pulse Ox 96 03/17/21 07:29 Body Mass Index 20.1 <DANISH Archibald - Last Filed: 03/17/21 08:48> Const: General: healthy appearing, comfortable, no acute distress, alert and awake <DANISH Archibald - Last Filed: 03/17/21 08:48> Nutritional Appearance: well nourished <DANISH Archibald - Last Filed: 03/17/21 08:48> Orientation/consciousness: patient oriented x3 <DANISH Archibald Last Filed: 03/17/21 08:48> HENMT: Head: Yes normocephalic and Yes atraumatic <DANISH Archibald - Last Filed: 03/17/21 08:48> Eyes: Sclerae: sclerae normal <DANISH Archibald Last Filed: 03/17/21 08:48> Resp: Effort & Inspection: normal respiratory effort and no respiratory distress <DANISH Archibald Last Filed: 03/17/21 08:48> Cardio: Rate: regular rate <DANISH Archibald Last Filed: 03/17/21 08:48> Rhythm: regular rhythm <DANISH Archibald Last Filed: 03/17/21 08:48> GI: Palpation (GI): Soft to palpation and nontender <DANISH Archibald Last Filed: 03/17/21 08:48> Neuro: General: patient oriented x3 <DANISH Archibald Last Filed: 03/17/21 08:48> Cranial nerves: Yes CN's II-XII intact bilaterally and Yes Bilaterally intact EOM present <DANISH Archibald Last Filed: 03/17/21 08:48> Objective Data Current Medications Generic Name Dose Route Start Last Admin Trade Name Freq PRN Reason Stop Dose Admin Aspirin 81 mg 02/28/21 09:00 03/16/21 08:52 Aspirin 81 Mg Tab.Chew PO 81 mg DAILY RAGHAVENDRA Administration Atorvastatin Calcium 80 mg 02/27/21 08:00 03/16/21 20:42 Atorvastatin Calcium 80 Mg Tablet PO 80 mg BEDTIME RAGHAVENDRA Administration Clonidine 0.1 mg 03/13/21 09:00 03/13/21 09:25 Clonidine 0.1 Mg Patch.Tdwk TRANSDERMA 0.1 mg Tu@0900 RAGHAVENDRA Administration Protocol Doxazosin Mesylate 2 mg 03/10/21 21:00 03/16/21 20:46 Doxazosin Mesylate 2 Mg Tablet PO 2 mg BEDTIME RAGHAVENDRA Administration Protocol Ferrous Sulfate 324 mg 02/28/21 09:00 03/16/21 08:52 Ferrous Sulfate 324 Mg Tablet.Dr PO 324 mg DAILY RAGHAVENDRA Administration Glipizide 2.5 mg 02/24/21 17:00 03/16/21 17:09 Glipizide 5 Mg Tablet PO 2.5 mg BIDWM RAGHAVENDRA Administration Guaifenesin/Dextromethorphan 5 ml 03/02/21 23:01 Guaifenesin Dm 100/10/5 Ml 5 Ml Syrup PO Q6H PRN cough Hydralazine HCl 50 mg 03/08/21 15:00 03/16/21 20:46 Hydralazine Hcl 50 Mg Tablet PO 50 mg TID RAGHAVENDRA Administration Protocol Isosorbide Mononitrate 30 mg 03/04/21 14:30 03/16/21 08:52 Isosorbide Mononitrate 30 Mg Tab.Er.24h PO 30 mg DAILY [facility] Administration Protocol Levothyroxine Sodium 75 mcg 01/13/21 09:00 03/17/21 05:52 Levothyroxine Sodium 75 Mcg Tablet PO 75 mcg DAILY@0600 [facility] Administration Losartan Potassium 100 mg 03/08/21 09:00 03/16/21 08:52 Losartan Potassium 50 Mg Tablet PO 100 mg DAILY [facility] Administration Protocol Nifedipine 120 mg 02/13/21 09:00 03/16/21 08:52 Nifedipine Er 60 Mg Tab.Er.24 PO 120 mg DAILY [facility] Administration Protocol Ondansetron HCl 4 mg 03/02/21 14:26 03/02/21 12:30 Ondansetron Hcl 4 Mg/2 Ml Vial IVPUSH 4 mg Q4H PRN Administration nausea/vomiting Spironolactone 50 mg 03/11/21 09:00 03/16/21 08:52 Spironolactone 25 Mg Tablet PO 50 mg DAILY [facility] Administration Protocol <DANISH Archibald - Last Filed: 03/17/21 08:48> Labs CBC & Chem 7: : 03/04/21 05:36 03/16/21 06:09 <DANISH Archibald - Last Filed: 03/17/21 08:48> Labs: Laboratory Results - last 24 hr 03/16/21 03/17/21 16:44 07:31 POC Glucose 212 H 177 H <DANISH Archibald - Last Filed: 03/17/21 08:48> Assessment and Plan (1) Dementia, vascular, mixed: Status: Acute <DANISH Archibald - Last Filed: 03/17/21 08:48> Assessment and Plan: 85yo F with HTN, HLD, DM2, hypothyroidism, CAD s/p PCI. initially admitted with falls, elevated troponin; disposition complicated by cognitive impairment requiring guardianship on 02/26/21 developed hypoxia, dyspnea -> CHF exacerbation with NSTEMI on 03/02/21 had 2 episodes of junctional bradycardia/sinus pause associated with BM and vomiting # Resistant HTN BP improved, still some intermittently high readings, but overall better trend. Renal artery stenosis not seen on CT angio Nifedipine 120 Imdur 30 Clonodine 0.1mg patch q weekly (pulse as been greater than 55 during vitals, not on tele) Losartan 100 Hydralazine 50 Aldactone 50 Dozazosin 2mg # sinus pause, junctional bradycardia.? No further episodes - likely vasovagal; Cardiology concurs.? 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, repleted Fe IV and transfused 2u pRBCs and Hb improved # cognitive impairment - evaluated by psychiatry and does need guardianship + awaiting paperwork # DM2 complicated by hypoglycemia - d/c'ed metformin due to worsening renal function, added glipizide, recommend strict diabetic diet # hypothyroidism ?- continue LT4 # C diff colitis - resolved, s/p 14d of vancomycin treatment # acute grief reaction/depression - due to passing of , seems stable # VTE ppx - UFH Full code dispo - waiting placement/guardianship DVT pptx - low risk, she ambulates multiple times throughout the day in the hallways Attending: Dr. Diaz <DANISH Archibald - Last Filed: 03/17/21 08:48> Quality Stroke Does the patient have a stroke diagnosis?: No <DANISH Archibald - Last Filed: 03/17/21 08:48> VTE Prior VTE?: No <DANISH Archibald - Last Filed: 03/17/21 08:48> VTE Risk Level:: Medical - moderate - high <DANISH Archibald - Last Filed: 03/17/21 08:48> VTE Device Contraindication: N/A - Device Ordered <DANISH Archibald - Last Filed: 03/17/21 08:48> VTE Drug Contraindication: N/A - Med Ordered <DANISH Archibald - Last Filed: 03/17/21 08:48>
--- NOTE | 2021-03-17 09:05 | PM.PNNEP ---
Subjective Subjective Date of Service: 03/17/21 Interval history: seen and examined no complaints Physical Exam Vital Signs: Vital Signs: Last Vital Signs Temp 97.2 F 03/17/21 07:29 Pulse 54 03/17/21 07:29 Resp 16 03/17/21 07:29 BP 144/74 H 03/17/21 07:29 Pulse Ox 96 03/17/21 07:29 Body Mass Index 20.1 Const: General: no acute distress HENMT: Head: Yes normocephalic and Yes atraumatic Neck: Neck: Yes supple Resp: Auscultation: clear to auscultation bilaterally Cardio: Heart sounds: S1 normal heart sound present and S2 normal heart sound present GI: Palpation (GI): Soft to palpation and nontender Extrem: General: Yes no pedal edema Objective Data Labs CBC & Chem 7: 03/04/21 05:36 03/16/21 06:09 Labs: Laboratory Results - last 24 hr 03/16/21 03/17/21 16:44 07:31 POC Glucose 212 H 177 H Microbiology Microbiology Results: Microbiology 11/24/20 08:18 Stool Stool Culture - Final 09/21/20 Unknown Urine clean catch - Clean Catch Midstream Urine Culture - Final No growth. Procedures Date of Service Date of Service: 03/17/21 Assessment & Plan Assessment and plan (1) HTN (hypertension): Status: Acute Assessment and Plan: CTA negative for TIMMY continue same antihypertensive regimen Time Spent With Patient Time: Total time spent is greater than 50% in coordination of care (as documented) at patient's floor/unit and/or counseling patient: Progress Note: Quality Stroke Does the patient have a stroke diagnosis?: No
[2021-03-17] MEDS: Aspirin 81 MG TAB.CHEW PO (09:11)
[2021-03-17] MEDS: Losartan Potassium 50 MG TABLET 100 MG PO (09:11)
[2021-03-17] MEDS: Isosorbide Mononitrate 30 MG TAB.ER.24H PO (09:11)
[2021-03-17] MEDS: Spironolactone 25 MG TABLET 50 MG PO (09:12)
[2021-03-17] MEDS: hydrALAZINE HCl 50 MG TABLET PO ×3 (09:12→20:10)
[2021-03-17] MEDS: NIFEdipine ER 60 MG TAB.ER.24 120 MG PO (09:12)
[2021-03-17] MEDS: Ferrous Sulfate 324 MG TABLET.DR PO (09:12)
[2021-03-17] MEDS: glipiZIDE 5 MG TABLET 2.5 MG PO ×2 (09:16→16:29)
[2021-03-17 15:44] VITALS: BP 157/72; PULSE 60; RESP 14; TEMP 36.2; O2SAT 97
[2021-03-17 20:09] VITALS: BP 157/72; PULSE 60
[2021-03-17] MEDS: Doxazosin Mesylate 2 MG TABLET PO (20:09)
[2021-03-17 20:10] VITALS: BP 157/72; PULSE 60
[2021-03-17] MEDS: Atorvastatin Calcium 80 MG TABLET PO (20:10)
[2021-03-17 23:43] VITALS: BP 163/55; PULSE 64; RESP 16; TEMP 36.5; O2SAT 95
[2021-03-18] MEDS: Levothyroxine Sodium 75 MCG TABLET PO (06:03)
[2021-03-18 07:27] VITALS: BP 144/63; PULSE 56; RESP 16; TEMP 36.2; O2SAT 96
[2021-03-18 07:35] LABS: Glucose, Whole Blood 173 mg/dL (60-115)
[2021-03-18] MEDS: Losartan Potassium 50 MG TABLET 100 MG PO (08:45)
[2021-03-18] MEDS: NIFEdipine ER 60 MG TAB.ER.24 120 MG PO (08:45)
[2021-03-18] MEDS: Isosorbide Mononitrate 30 MG TAB.ER.24H PO (08:46)
[2021-03-18] MEDS: Aspirin 81 MG TAB.CHEW PO (08:46)
[2021-03-18] MEDS: Spironolactone 25 MG TABLET 50 MG PO (08:46)
[2021-03-18] MEDS: glipiZIDE 5 MG TABLET 2.5 MG PO ×2 (08:47→16:24)
[2021-03-18] MEDS: Ferrous Sulfate 324 MG TABLET.DR PO (08:47)
[2021-03-18] MEDS: hydrALAZINE HCl 50 MG TABLET PO ×3 (08:47→20:07)
--- NOTE | 2021-03-18 08:49 | PM.PNNEP ---
Subjective Subjective Date of Service: 03/18/21 Interval history: seen and examined no complaints Physical Exam Vital Signs: Vital Signs: Last Vital Signs Temp 97.2 F 03/18/21 07:27 Pulse 56 03/18/21 07:27 Resp 16 03/18/21 07:27 BP 144/63 H 03/18/21 07:27 Pulse Ox 96 03/18/21 07:27 Body Mass Index 20.1 Const: General: no acute distress HENMT: Head: Yes normocephalic and Yes atraumatic Neck: Neck: Yes supple Resp: Auscultation: clear to auscultation bilaterally Cardio: Heart sounds: S1 normal heart sound present and S2 normal heart sound present GI: Palpation (GI): Soft to palpation and nontender Extrem: General: Yes no pedal edema Objective Data Labs CBC & Chem 7: 03/04/21 05:36 03/16/21 06:09 Labs: Laboratory Results - last 24 hr 03/18/21 07:29 POC Glucose 173 H Microbiology Microbiology Results: Microbiology 11/24/20 08:18 Stool Stool Culture - Final 09/21/20 Unknown Urine clean catch - Clean Catch Midstream Urine Culture - Final No growth. Procedures Date of Service Date of Service: 03/18/21 Assessment & Plan Assessment and plan (1) HTN (hypertension): Status: Acute Assessment and Plan: CTA negative for TIMMY continue same antihypertensive regimen follow kidney function and electrolytes Time Spent With Patient Time: Total time spent is greater than 50% in coordination of care (as documented) at patient's floor/unit and/or counseling patient: Progress Note: Quality Stroke Does the patient have a stroke diagnosis?: No
--- NOTE | 2021-03-18 08:58 | HO.PM.IMPN ---
Subjective Subjective Date of Service: 03/18/21 <DANISH Archibald - Last Filed: 03/18/21 09:01> 03/28/21 <Adolfo Diaz MD - Last Filed: 03/28/21 16:12> Interval History: seen and examined this morning resting in bed comfortably, watching tv no overnight events, no complaints this morning <DANISH Archibald - Last Filed: 03/18/21 09:01> Review of Systems Review of Systems: Yes all other systems are reviewed and are negative <DANISH Archibald - Last Filed: 03/18/21 09:01> Constitutional Constitutional: Denies chills and Denies fever(s) <DANISH Archibald - Last Filed: 03/18/21 09:01> Cardiovascular Cardiovascular: Denies chest pain <DANISH Archibald Last Filed: 03/18/21 09:01> Respiratory Respiratory: Denies cough <DANISH Archibald Last Filed: 03/18/21 09:01> Gastrointestinal Gastrointestinal: Denies abdominal pain <DANISH Archibald Last Filed: 03/18/21 09:01> Physical Exam Vital Signs: Vital Signs: Last Vital Signs Temp 97.2 F 03/18/21 07:27 Pulse 56 03/18/21 07:27 Resp 16 03/18/21 07:27 BP 144/63 H 03/18/21 07:27 Pulse Ox 96 03/18/21 07:27 Body Mass Index 20.1 <DANISH Archibald - Last Filed: 03/18/21 09:01> Const: General: comfortable, no acute distress, alert, awake and Physically active <DANISH Archibald Last Filed: 03/18/21 09:01> Nutritional Appearance: thin <DANISH Archibald Last Filed: 03/18/21 09:01> HENMT: Head: Yes normocephalic and Yes atraumatic <DANISH Archibald Last Filed: 03/18/21 09:01> Eyes: Sclerae: sclerae normal <DANISH Archibald Last Filed: 03/18/21 09:01> Chest: Chest palpation & inspection: normal inspection of the chest <DANISH Archibald Last Filed: 03/18/21 09:01> Resp: Effort & Inspection: normal respiratory effort and no respiratory distress <DANISH Archibald Last Filed: 03/18/21 09:01> Cardio: Rate: regular rate <DANISH Archibald Last Filed: 03/18/21 09:01> Rhythm: regular rhythm <DANISH Archibald Last Filed: 03/18/21 09:01> GI: Palpation (GI): Soft to palpation and nontender <DANISH Archibald Last Filed: 03/18/21 09:01> Neuro: Cranial nerves: Yes CN's II-XII intact bilaterally and Yes Bilaterally intact EOM present <DANISH Archibald Last Filed: 03/18/21 09:01> Objective Data Current Medications Generic Name Dose Route Start Last Admin Trade Name Freq PRN Reason Stop Dose Admin Aspirin 81 mg 02/28/21 09:00 03/18/21 08:46 Aspirin 81 Mg Tab.Chew PO 81 mg DAILY RAGHAVENDRA Administration Atorvastatin Calcium 80 mg 02/27/21 08:00 03/17/21 20:10 Atorvastatin Calcium 80 Mg Tablet PO 80 mg BEDTIME RAGHAVENDRA Administration Clonidine 0.1 mg 03/13/21 09:00 03/13/21 09:25 Clonidine 0.1 Mg Patch.Tdwk TRANSDERMA 0.1 mg Tu@0900 RAGHAVENDRA Administration Protocol Doxazosin Mesylate 2 mg 03/10/21 21:00 03/17/21 20:09 Doxazosin Mesylate 2 Mg Tablet PO 2 mg BEDTIME RAGHAVENDRA Administration Protocol Ferrous Sulfate 324 mg 02/28/21 09:00 03/18/21 08:47 Ferrous Sulfate 324 Mg Tablet.Dr PO 324 mg DAILY RAGHAVENDRA Administration Glipizide 2.5 mg 02/24/21 17:00 03/18/21 08:47 Glipizide 5 Mg Tablet PO 2.5 mg BIDWM RAGHAVENDRA Administration Guaifenesin/Dextromethorphan 5 ml 03/02/21 23:01 Guaifenesin Dm 100/10/5 Ml 5 Ml Syrup PO Q6H PRN cough Hydralazine HCl 50 mg 03/08/21 15:00 03/18/21 08:47 Hydralazine Hcl 50 Mg Tablet PO 50 mg TID RAGHAVENDRA Administration Protocol Isosorbide Mononitrate 30 mg 03/04/21 14:30 03/18/21 08:46 Isosorbide Mononitrate 30 Mg Tab.Er.24h PO 30 mg DAILY RAGHAVENDRA Administration Protocol Levothyroxine Sodium 75 mcg 01/13/21 09:00 03/18/21 06:03 Levothyroxine Sodium 75 Mcg Tablet PO 75 mcg DAILY@0600 RAGHAVENDRA Administration Losartan Potassium 100 mg 03/08/21 09:00 03/18/21 08:45 Losartan Potassium 50 Mg Tablet PO 100 mg DAILY RAGHAVENDRA Administration Protocol Nifedipine 120 mg 02/13/21 09:00 03/18/21 08:45 Nifedipine Er 60 Mg Tab.Er.24 PO 120 mg DAILY [facility] Administration Protocol Ondansetron HCl 4 mg 03/02/21 14:26 03/02/21 12:30 Ondansetron Hcl 4 Mg/2 Ml Vial IVPUSH 4 mg Q4H PRN Administration nausea/vomiting Spironolactone 50 mg 03/11/21 09:00 03/18/21 08:46 Spironolactone 25 Mg Tablet PO 50 mg DAILY RAGHAVENDRA Administration Protocol <DANISH Archibald - Last Filed: 03/18/21 09:01> Labs CBC & Chem 7: : 03/19/21 10:14 03/28/21 06:15 <DANISH Archibald - Last Filed: 03/18/21 09:01> Labs: Laboratory Results - last 24 hr 03/18/21 07:29 POC Glucose 173 H <DANISH Archibald - Last Filed: 03/18/21 09:01> Assessment and Plan (1) Dementia, vascular, mixed: Status: Acute <DANISH Archibald - Last Filed: 03/18/21 09:01> (2) HTN (hypertension): Status: Acute <DANISH Archibald - Last Filed: 03/18/21 09:01> Assessment and Plan: 85yo F with HTN, HLD, DM2, hypothyroidism, CAD s/p PCI. initially admitted with falls, elevated troponin; disposition complicated by cognitive impairment requiring guardianship on 02/26/21 developed hypoxia, dyspnea -> CHF exacerbation with NSTEMI on 03/02/21 had 2 episodes of junctional bradycardia/sinus pause associated with BM and vomiting # Resistant HTN BP under better control Renal artery stenosis not seen on CT angio Nifedipine 120 Imdur 30 Clonodine 0.1mg patch q weekly (pulse as been greater than 55 during vitals, not on tele) Losartan 100 Hydralazine 50 Aldactone 50 Dozazosin 2mg # sinus pause, junctional bradycardia.? No further episodes - likely vasovagal; Cardiology concurs.? 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, repleted Fe IV and transfused 2u pRBCs and Hb improved # cognitive impairment - evaluated by psychiatry and does need guardianship + awaiting paperwork # DM2 complicated by hypoglycemia - d/c'ed metformin due to worsening renal function, added glipizide, recommend strict diabetic diet # hypothyroidism ?- continue LT4 # C diff colitis - resolved, s/p 14d of vancomycin treatment # acute grief reaction/depression - due to passing of , seems stable # VTE ppx - UFH Full code dispo - waiting placement/guardianship DVT pptx - low risk, she ambulates multiple times throughout the day in the hallways Attending: Dr. Diaz <DANISH Archibald - Last Filed: 03/18/21 09:01> Quality Stroke Does the patient have a stroke diagnosis?: No <DANISH Archibald - Last Filed: 03/18/21 09:01> VTE Prior VTE?: No <DANISH Archibald - Last Filed: 03/18/21 09:01> VTE Risk Level:: Medical - moderate - high <DANISH Archibald - Last Filed: 03/18/21 09:01> VTE Device Contraindication: N/A - Device Ordered <DANISH Archibald - Last Filed: 03/18/21 09:01> VTE Drug Contraindication: N/A - Med Ordered <DANISH Archibald - Last Filed: 03/18/21 09:01>
[2021-03-18 15:59] VITALS: BP 139/60; PULSE 69; RESP 18; TEMP 36.1; O2SAT 96
[2021-03-18 16:00] VITALS: BP 139/60; PULSE 69; RESP 18; TEMP 36; O2SAT 96
[2021-03-18 20:07] VITALS: BP 165/72; PULSE 69
[2021-03-18] MEDS: Doxazosin Mesylate 2 MG TABLET PO (20:07)
[2021-03-18] MEDS: Atorvastatin Calcium 80 MG TABLET PO (20:07)
[2021-03-18 23:21] VITALS: BP 162/73; PULSE 66; RESP 16; TEMP 36.3; O2SAT 95
[2021-03-19] MEDS: Levothyroxine Sodium 75 MCG TABLET PO (05:51)
[2021-03-19 08:00] VITALS: BP 180/77; PULSE 64; RESP 17; TEMP 36.3; O2SAT 95
[2021-03-19 09:09] VITALS: BP 180/77; PULSE 64
[2021-03-19] MEDS: hydrALAZINE HCl 50 MG TABLET PO ×3 (09:09→21:12)
[2021-03-19] MEDS: Losartan Potassium 50 MG TABLET 100 MG PO (09:10)
[2021-03-19] MEDS: NIFEdipine ER 60 MG TAB.ER.24 120 MG PO (09:10)
[2021-03-19] MEDS: Aspirin 81 MG TAB.CHEW PO (09:12)
[2021-03-19] MEDS: Ferrous Sulfate 324 MG TABLET.DR PO (09:12)
[2021-03-19] MEDS: glipiZIDE 5 MG TABLET 2.5 MG PO ×2 (09:12→18:11)
[2021-03-19] MEDS: Spironolactone 25 MG TABLET 50 MG PO (09:13)
[2021-03-19] MEDS: Isosorbide Mononitrate 30 MG TAB.ER.24H PO (09:13)
--- NOTE | 2021-03-19 09:39 | P.PNIM_ITS ---
Subjective Subjective Date of Service: 03/19/21 Interval History: seen and examined this AM no new issues reported by her or staff Constitutional Constitutional: Denies chills and Denies fever(s) Cardiovascular Cardiovascular: Reports no additional cardiovascular complaints and Denies chest pain Respiratory Respiratory: Reports no additional respiratory complaints and Denies cough Gastrointestinal Gastrointestinal: Reports no additional gastrointestinal complaints and Denies a bdominal pain Physical Exam Vital Signs: Vital Signs: Last Vital Signs Temp 97.4 F 03/19/21 08:00 Pulse 64 03/19/21 09:09 Resp 17 03/19/21 08:00 BP 180/77 H 03/19/21 09:09 Pulse Ox 95 03/19/21 08:00 Body Mass Index 20.1 Const: General: healthy appearing, comfortable, no acute distress, alert, jesse ke and Physically active Nutritional Appearance: thin Orie ntation/consciousness: patient oriented x3 Limitations: no limitations and other limitations (Question if the patient remembers events correctly) HENMT: Head: Yes normocephalic and Yes atraumatic Eyes: Sclerae: sclerae normal Chest: Chest palpation & inspection: normal inspection of the chest Resp: Effort & Inspection: normal respiratory effort and no respiratory distress Cardio: Rate: regular rate Rhythm: regular rhythm GI: Palpation (GI): Soft to palpation and nontender Neuro: General: patient oriented x3 Cranial nerves: Yes CN's II-XII intact bilaterally and Yes Bilaterally intact EOM present Psych: Insight: Limited insight present (Psych) Objective Data Current Medications Generic Name Dose Route Start Last Admin Trade Name Sachaq PRN Reason Stop Dose Admin Aspirin 81 mg 02/28/21 09:00 03/19/21 09:12 Aspirin 81 Mg Tab.Chew PO 81 mg DAILY RAGHAVENDRA Administration Atorvastatin Calcium 80 mg 02/27/21 08:00 03/18/21 20:07 Atorvastatin Calcium 80 Mg Tablet PO 80 mg BEDTIME RAGHAVENDRA Administration Clonidine 0.1 mg 03/13/21 09:00 03/13/21 09:25 Clonidine 0.1 Mg Patch.Tdwk TRANSDERMA 0.1 mg Tu@0900 RAGHAVENDRA Administration Protocol Doxazosin Mesylate 2 mg 03/10/21 21:00 03/18/21 20:07 Doxazosin Mesylate 2 Mg Tablet PO 2 mg BEDTIME RAGHAVENDRA Administration Protocol Ferrous Sulfate 324 mg 02/28/21 09:00 03/19/21 09:12 Ferrous Sulfate 324 Mg Tablet. PO 324 mg DAILY RAGHAVENDRA Administration Glipizide 2.5 mg 02/24/21 17:00 03/19/21 09:12 Glipizide 5 Mg Tablet PO 2.5 mg BIDWM RAGHAVENDRA Administration Guaifenesin/Dextromethorphan 5 ml 03/02/21 23:01 Guaifenesin Dm 100/10/5 Ml 5 Ml Syrup PO Q6H PRN cough Hydralazine HCl 50 mg 03/08/21 15:00 03/19/21 09:09 Hydralazine Hcl 50 Mg Tablet PO 50 mg TID [facility] Administration Protocol Isosorbide Mononitrate 30 mg 03/04/21 14:30 03/19/21 09:13 Isosorbide Mononitrate 30 Mg Tab.Er.24h PO 30 mg DAILY [facility] Administration Protocol Levothyroxine Sodium 75 mcg 01/13/21 09:00 03/19/21 05:51 Levothyroxine Sodium 75 Mcg Tablet PO 75 mcg DAILY@0600 [facility] Administration Losartan Potassium 100 mg 03/08/21 09:00 03/19/21 09:10 Losartan Potassium 50 Mg Tablet PO 100 mg DAILY [facility] Administration Protocol Nifedipine 120 mg 02/13/21 09:00 03/19/21 09:10 Nifedipine Er 60 Mg Tab.Er.24 PO 120 mg DAILY [facility] Administration Protocol Ondansetron HCl 4 mg 03/02/21 14:26 03/02/21 12:30 Ondansetron Hcl 4 Mg/2 Ml Vial IVPUSH 4 mg Q4H PRN Administration nausea/vomiting Spironolactone 50 mg 03/11/21 09:00 03/19/21 09:13 Spironolactone 25 Mg Tablet PO 50 mg DAILY [facility] Administration Protocol Labs CBC & Chem 7: 03/04/21 05:36 03/16/21 06:09 Assessment and Plan (1) HTN (hypertension): Status: Acute Assessment and Plan: 85yo F with HTN, HLD, DM2, hypothyroidism, CAD s/p PCI. initially admitted with falls, elevated troponin; disposition complicated by cognitive impairment requiring guardianship on 02/26/21 developed hypoxia, dyspnea -> CHF exacerbation with NSTEMI on 03/02/21 had 2 episodes of junctional bradycardia/sinus pause associated with BM and vomiting # Resistant HTN BP under better control Renal artery stenosis not seen on CT angio Nifedipine 120 Imdur 30 Clonodine 0.1mg patch q weekly (pulse as been greater than 55 during vitals, not on tele) Losartan 100 Hydralazine 50 Aldactone 50 Dozazosin 2mg # sinus pause, junctional bradycardia.? No further episodes - likely vasovagal; Cardiology concurs.? 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, repleted Fe IV and transfused 2u pRBCs and Hb improved # cognitive impairment - evaluated by psychiatry and does need guardianship + awaiting paperwork # DM2 complicated by hypoglycemia - d/c'ed metformin due to worsening renal function, added glipizide, recommend strict diabetic diet # hypothyroidism ?- continue LT4 # C diff colitis - resolved, s/p 14d of vancomycin treatment # acute grief reaction/depression - due to passing of , seems stable # VTE ppx ambulation #general issues: BMP checked 03/16 -- relatively stable will check CBC today (last checked about 3 weeks ago) Full code dispo - waiting placement/guardianship DVT pptx - low risk, she ambulates multiple times throughout the day in the hallways Quality Stroke Does the patient have a stroke diagnosis?: No VTE Prior VTE?: No VTE Risk Level:: Medical - moderate - high VTE Device Contraindication: N/A - Device Ordered VTE Drug Contraindication: N/A - Med Ordered
--- NOTE | 2021-03-19 09:59 | PM.PNNEP ---
Subjective Subjective Date of Service: 03/19/21 Principal diagnosis: htn Interval history: seen and examined this AM BP cont high no new issues reported by her or staff Physical Exam Vital Signs: Vital Signs: Last Vital Signs Temp 97.4 F 03/19/21 08:00 Pulse 64 03/19/21 09:09 Resp 17 03/19/21 08:00 BP 180/77 H 03/19/21 09:09 Pulse Ox 95 03/19/21 08:00 Body Mass Index 20.1 Objective Data Labs CBC & Chem 7: 03/04/21 05:36 03/16/21 06:09 Microbiology Microbiology Results: Microbiology 11/24/20 08:18 Stool Stool Culture - Final 09/21/20 Unknown Urine clean catch - Clean Catch Midstream Urine Culture - Final No growth. Procedures Date of Service Date of Service: 03/19/21 Assessment & Plan Assessment and plan (1) HTN (hypertension): Status: Acute Assessment and Plan: Resistant HTN Will incr cardura 4 mg qhs and titrate up as needed Time Spent With Patient Time: Total time spent is greater than 50% in coordination of care (as documented) at patient's floor/unit and/or counseling patient: Time with patient: 25 - 35 minutes Progress Note: Quality Stroke Does the patient have a stroke diagnosis?: No
[2021-03-19 10:27] LABS: Hematocrit 32.5 % (37-47); Hemoglobin 10.5 g/dl (12.0-16.0); Mean Corpuscular HGB Conc 32.3 g/dl (31.0-35.0); Mean Corpuscular Hemoglobin 30.9 pg (27.0-33.0); Mean Corpuscular Volume 95.6 fL (80-98); Mean Platelet Volume 11.5 fL (9.4-12.3); Platelet Count 283 X10*3/uL (160-400); Red Cell Distribution Width 14.7 % (11.0-16.0); White Blood Count 9.2 X10*3/uL (4.8-10.8)
[2021-03-19 10:58] LABS: Glucose, Whole Blood 341 mg/dL (60-115)
--- NOTE | 2021-03-19 13:40 | MHC.CM.PN ---
Addendum entered by Yazmin Gonsalves RN 03/19/21 14:32: THIS CM RECEIVED MESSAGE VIA [employer] AT 1400 THAT PT'S CONSERVATOR CRISTINA EDWARDS RETURNED CALL AND REPORTED SHE WILL SEND [facility] DIRECTLY TO [facility] UPDATED VIA [employer]. Original Note: CM HAS CHECKED REFERRAL STATUS AND [facility] REQUESTING COPY OF [facility] JOSIE, FINANCIAL SERVICES UNABLE TO ACCESS DUE TO T BEING OVER 65 AND NOT INITIATING, PER FINANCIAL SERVICES THEY WILL CALL [facility] AND CHECK ON STATUS OF JOSIE, CM CALLED PT'S CONSERVATOR CRISTINA JERRY AT 1:37PM [phone], MESSAGE LEFT WITH REQUEST FOR [facility] TO BE FAXED TO CM OFFICE FAX, NUMBER PROVIDED.
[2021-03-19 14:27] VITALS: BP 139/89; PULSE 63
--- NOTE | 2021-03-19 15:18 | PC.NURSE ---
poc 341. New order for humalog insulin 4 units before lunch. Patient refused. Dr. Blevins notified. Will recheck poc before dinner.
[2021-03-19 15:52] VITALS: BP 157/68; PULSE 63; RESP 14; TEMP 36.2; O2SAT 96
[2021-03-19 18:22] LABS: Glucose, Whole Blood 263 mg/dL (60-115)
[2021-03-19] MEDS: Atorvastatin Calcium 80 MG TABLET PO (21:12)
[2021-03-19] MEDS: Doxazosin Mesylate 2 MG TABLET 4 MG PO (21:13)
[2021-03-20] VITALS: BP 154/69; PULSE 72; RESP 18; TEMP 36.9; O2SAT 98
[2021-03-20] MEDS: Levothyroxine Sodium 75 MCG TABLET PO (05:59)
[2021-03-20 08:14] VITALS: BP 183/75; PULSE 69; RESP 17; TEMP 36.6; O2SAT 95
[2021-03-20] MEDS: Spironolactone 25 MG TABLET 50 MG PO (08:27)
[2021-03-20] MEDS: Losartan Potassium 50 MG TABLET 100 MG PO (08:27)
[2021-03-20] MEDS: Aspirin 81 MG TAB.CHEW PO (08:27)
[2021-03-20] MEDS: NIFEdipine ER 60 MG TAB.ER.24 120 MG PO (08:28)
[2021-03-20] MEDS: glipiZIDE 5 MG TABLET 2.5 MG PO ×2 (08:29→15:59)
[2021-03-20] MEDS: Ferrous Sulfate 324 MG TABLET.DR PO (08:30)
[2021-03-20] MEDS: Isosorbide Mononitrate 30 MG TAB.ER.24H PO (08:30)
[2021-03-20] MEDS: hydrALAZINE HCl 50 MG TABLET PO ×3 (08:30→20:11)
--- NOTE | 2021-03-20 09:46 | P.PNIM_ITS ---
Subjective Subjective Date of Service: 03/20/21 Interval History: seen and examined this AM no new complaints Physical Exam Vital Signs: Vital Signs: Last Vital Signs Temp 97.8 F 03/20/21 08:14 Pulse 69 03/20/21 08:14 Resp 17 03/20/21 08:14 BP 183/75 H 03/20/21 08:14 Pulse Ox 95 03/20/21 08:14 Body Mass Index 20.1 Const: General: healthy appearing, comfortable, no acute distress, alert, awake and Physically active Nutritional Appearance: thin Orientation/consciousness: patient oriented x3 Limitations: no limitations and other limitations (Question if the patient remembers events correctly) HENMT: Head: Yes normocephalic and Yes atraumatic Eyes: Sclerae: sclerae normal Chest: Chest palpation & inspection: normal inspection of the chest Resp: Effort & Inspection: normal respiratory effort and no respiratory distress Cardio: Rate: regular rate Rhythm: regular rhythm GI: Palpation (GI): Soft to palpation and nontender Neuro: General: patient oriented x3 Cranial nerves: Yes CN's II-XII intact bilaterally and Yes Bilaterally intact EOM present Psych: Insight: Limited insight present (Psych) Objective Data Current Medications Generic Name Dose Route Start Last Admin Trade Name Freq PRN Reason Stop Dose Admin Aspirin 81 mg 02/28/21 09:00 03/20/21 08:27 Aspirin 81 Mg Tab.Chew PO 81 mg DAILY RAGHAVENDRA Administration Atorvastatin Calcium 80 mg 02/27/21 08:00 03/19/21 21:12 Atorvastatin Calcium 80 Mg Tablet PO 80 mg BEDTIME RAGHAVENDRA Administration Clonidine 0.1 mg 03/13/21 09:00 03/13/21 09:25 Clonidine 0.1 Mg Patch.Tdwk TRANSDERMA 0.1 mg Tu@0900 RAGHAVENDRA Administration Protocol Doxazosin Mesylate 4 mg 03/19/21 21:00 03/19/21 21:13 Doxazosin Mesylate 2 Mg Tablet PO 4 mg BEDTIME RAGHAVENDRA Administration Protocol Ferrous Sulfate 324 mg 02/28/21 09:00 03/20/21 08:30 Ferrous Sulfate 324 Mg Tablet.Dr PO 324 mg DAILY RAGHAVENDRA Administration Glipizide 2.5 mg 02/24/21 17:00 03/20/21 08:29 Glipizide 5 Mg Tablet PO 2.5 mg BIDWM RAGHAVENDRA Administration Guaifenesin/Dextromethorphan 5 ml 07/16/21 23:01 Guaifenesin Dm 100/10/5 Ml 5 Ml Syrup PO Q6H PRN cough Hydralazine HCl 50 mg 03/08/21 15:00 03/20/21 08:30 Hydralazine Hcl 50 Mg Tablet PO 50 mg TID RAGHAVENDRA Administration Protocol Isosorbide Mononitrate 30 mg 03/04/21 14:30 03/20/21 08:30 Isosorbide Mononitrate 30 Mg Tab.Er.24h PO 30 mg DAILY RAGHAVENDRA Administration Protocol Levothyroxine Sodium 75 mcg 01/13/21 09:00 03/20/21 05:59 Levothyroxine Sodium 75 Mcg Tablet PO 75 mcg DAILY@0600 [facility] Administration Losartan Potassium 100 mg 03/08/21 09:00 03/20/21 08:27 Losartan Potassium 50 Mg Tablet PO 100 mg DAILY RAGHAVENDRA Administration Protocol Nifedipine 120 mg 02/13/21 09:00 03/20/21 08:28 Nifedipine Er 60 Mg Tab.Er.24 PO 120 mg DAILY [facility] Administration Protocol Ondansetron HCl 4 mg 03/02/21 14:26 03/02/21 12:30 Ondansetron Hcl 4 Mg/2 Ml Vial IVPUSH 4 mg Q4H PRN Administration nausea/vomiting Spironolactone 50 mg 03/11/21 09:00 03/20/21 08:27 Spironolactone 25 Mg Tablet PO 50 mg DAILY [facility] Administration Protocol Labs CBC & Chem 7: 03/19/21 10:14 03/16/21 06:09 Labs: Laboratory Results - last 24 hr 03/19/21 03/19/21 03/19/21 10:14 10:53 18:16 MCV 95.6 MCH 30.9 MCHC 32.3 RDW 14.7 Plt Count 283 MPV 11.5 Absolute Nucleated RBC 0.000 Nucleated RBC % (auto) 0.0 POC Glucose 341 H 263 H Assessment and Plan (1) HTN (hypertension): Status: Acute Assessment and Plan: 85yo F with HTN, HLD, DM2, hypothyroidism, CAD s/p PCI. initially admitted with falls, elevated troponin; disposition complicated by cognitive impairment requiring guardianship on 02/26/21 developed hypoxia, dyspnea -> CHF exacerbation with NSTEMI on 03/02/21 had 2 episodes of junctional bradycardia/sinus pause associated with BM and vomiting # Resistant HTN BP under better control Renal artery stenosis not seen on CT angio Nifedipine 120 Imdur 30 Clonodine 0.1mg patch q weekly (pulse as been greater than 55 during vitals, not on tele) Losartan 100 Hydralazine 50 Aldactone 50 Dozazosin incrased from 2mg to 4mg 03/19 # sinus pause, junctional bradycardia.? No further episodes - likely vasovagal; Cardiology concurs.? 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, repleted Fe IV and transfused 2u pRBCs and Hb improved # cognitive impairment - evaluated by psychiatry and does need guardianship + awaiting paperwork # DM2 complicated by hypoglycemia - d/c'ed metformin due to worsening renal function, added glipizide, recommend strict diabetic diet # hypothyroidism ?- continue LT4 # C diff colitis - resolved, s/p 14d of vancomycin treatment # acute grief reaction/depression - due to passing of , seems stable # VTE ppx ambulation #general issues: will monitor basic labs q3-4 weeks Full code dispo - waiting placement/guardianship DVT pptx - low risk, she ambulates multiple times throughout the day in the [facility] Quality Stroke Does the patient have a stroke diagnosis?: No VTE Prior VTE?: No VTE Risk Level:: Medical - moderate - high VTE Device Contraindication: N/A - Device Ordered VTE Drug Contraindication: N/A - Med Ordered
[2021-03-20] MEDS: cloNIDine 0.1 MG PATCH.TDWK TRANSDERMA (10:30)
[2021-03-20 15:49] VITALS: BP 174/92; PULSE 68; RESP 16; TEMP 36.3; O2SAT 97
[2021-03-20] MEDS: Atorvastatin Calcium 80 MG TABLET PO (20:11)
[2021-03-20] MEDS: Doxazosin Mesylate 2 MG TABLET 4 MG PO (20:11)
[2021-03-20 23:38] VITALS: BP 152/68; PULSE 57; RESP 18; TEMP 36.2; O2SAT 93
[2021-03-21] MEDS: Levothyroxine Sodium 75 MCG TABLET PO (05:24)
[2021-03-21] MEDS: Isosorbide Mononitrate 30 MG TAB.ER.24H PO (08:01)
[2021-03-21] MEDS: NIFEdipine ER 60 MG TAB.ER.24 120 MG PO (08:01)
[2021-03-21] MEDS: Spironolactone 25 MG TABLET 50 MG PO (08:01)
[2021-03-21] MEDS: hydrALAZINE HCl 50 MG TABLET PO ×3 (08:01→21:08)
[2021-03-21] MEDS: glipiZIDE 5 MG TABLET 2.5 MG PO ×2 (08:01→16:17)
[2021-03-21] MEDS: Losartan Potassium 50 MG TABLET 100 MG PO (08:01)
[2021-03-21] MEDS: Ferrous Sulfate 324 MG TABLET.DR PO (08:01)
[2021-03-21] MEDS: Aspirin 81 MG TAB.CHEW PO (08:01)
[2021-03-21 08:09] VITALS: BP 179/106; PULSE 61; RESP 17; TEMP 36.3; O2SAT 96
--- NOTE | 2021-03-21 09:55 | P.PNIM_ITS ---
Subjective Subjective Date of Service: 03/21/21 Interval History: seen and examined this AM no new complaints Constitutional Constitutional: Denies chills and Denies fever(s) Cardiovascular Cardiovascular: Reports no additional cardiovascular complaints and Denies chest pain Respiratory Respiratory: Reports no additional respiratory complaints and Denies cough Gastrointestinal Gastrointestinal: Reports no additional gastrointestinal complaints and Denies abdominal pain Physical Exam Vital Signs: Vital Signs: Last Vital Signs Temp 97.3 F 03/21/21 08:09 Pulse 61 03/21/21 08:09 Resp 17 03/21/21 08:09 BP 179/106 H 03/21/21 08:09 Pulse Ox 96 03/21/21 08:09 Body Mass Index 20.1 Const: General: healthy appearing, comfortable, no acute distress, alert, awake and Physically active Nutritional Appearance: well nourished and thin Orientation/consciousness: patient oriented x3 Limitations: no limitations and other limitations (Question if the patient remembers events correctly) HENMT: Head: Yes normocephalic and Yes atraumatic Eyes: Sclerae: sclerae normal Chest: Chest palpation & inspection: normal inspection of the chest Resp: Effort & Inspection: normal respiratory effort and no respiratory distress Cardio: Rate: regular rate Rhythm: regular rhythm GI: Palpation (GI): Soft to palpation and nontender Neuro: General: patient oriented x3 Cranial nerves: Yes CN's II-XII intact bilaterally and Yes Bilaterally intact EOM present Psych: Insight: Limited insight present (Psych) Objective Data Current Medications Generic Name Dose Route Start Last Admin Trade Name Sachaq PRN Reason Stop Dose Admin Aspirin 81 mg 02/28/21 09:00 03/21/21 08:01 Aspirin 81 Mg Tab.Chew PO 81 mg DAILY RAGHAVENDRA Administration Atorvastatin Calcium 80 mg 02/27/21 08:00 03/20/21 20:11 Atorvastatin Calcium 80 Mg Tablet PO 80 mg BEDTIME RAGHAVENDRA Administration Clonidine 0.1 mg 03/13/21 09:00 03/20/21 10:30 Clonidine 0.1 Mg Patch.Tdwk TRANSDERMA 0.1 mg Tu@0900 RAGHAVENDRA Administration Protocol Doxazosin Mesylate 4 mg 03/19/21 21:00 03/20/21 20:11 Doxazosin Mesylate 2 Mg Tablet PO 4 mg BEDTIME RAGHAVENDRA Administration Protocol Ferrous Sulfate 324 mg 02/28/21 09:00 03/21/21 08:01 Ferrous Sulfate 324 Mg Tablet. PO 324 mg DAILY RAGHAVENDRA Administration Glipizide 2.5 mg 02/24/21 17:00 03/21/21 08:01 Glipizide 5 Mg Tablet PO 2.5 mg BIDWM RAGHAVENDRA Administration Guaifenesin/Dextromethorphan 5 ml 03/02/21 23:01 Guaifenesin Dm 100/10/5 Ml 5 Ml Syrup PO Q6H PRN cough Hydralazine HCl 50 mg 03/08/21 15:00 03/21/21 08:01 Hydralazine Hcl 50 Mg Tablet PO 50 mg TID [facility] Administration Protocol Isosorbide Mononitrate 30 mg 03/04/21 14:30 03/21/21 08:01 Isosorbide Mononitrate 30 Mg Tab.Er.24h PO 30 mg DAILY [facility] Administration Protocol Levothyroxine Sodium 75 mcg 01/13/21 09:00 03/21/21 05:24 Levothyroxine Sodium 75 Mcg Tablet PO 75 mcg DAILY@0600 [facility] Administration Losartan Potassium 100 mg 03/08/21 09:00 03/21/21 08:01 Losartan Potassium 50 Mg Tablet PO 100 mg DAILY [facility] Administration Protocol Nifedipine 120 mg 02/13/21 09:00 03/21/21 08:01 Nifedipine Er 60 Mg Tab.Er.24 PO 120 mg DAILY [facility] Administration Protocol Ondansetron HCl 4 mg 03/02/21 14:26 03/02/21 12:30 Ondansetron Hcl 4 Mg/2 Ml Vial IVPUSH 4 mg Q4H PRN Administration nausea/vomiting Spironolactone 50 mg 03/11/21 09:00 03/21/21 08:01 Spironolactone 25 Mg Tablet PO 50 mg DAILY [facility] Administration Protocol Labs CBC & Chem 7: 03/19/21 10:14 03/16/21 06:09 Assessment and Plan (1) HTN (hypertension): Status: Acute Assessment and Plan: 85yo F with HTN, HLD, DM2, hypothyroidism, CAD s/p PCI. initially admitted with falls, elevated troponin; disposition complicated by cognitive impairment requiring guardianship on 02/26/21 developed hypoxia, dyspnea -> CHF exacerbation with NSTEMI on 03/02/21 had 2 episodes of junctional bradycardia/sinus pause associated with BM and vomiting # Resistant HTN BP under better control Renal artery stenosis not seen on CT angio Nifedipine 120 Imdur 30 Clonodine 0.1mg patch q weekly (pulse as been greater than 55 during vitals, not on tele) Losartan 100 Hydralazine 50 Aldactone 50 Dozazosin incrased from 2mg to 4mg 03/19 # sinus pause, junctional bradycardia.? No further episodes - likely vasovagal; Cardiology concurs.? 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, repleted Fe IV and transfused 2u pRBCs and Hb improved # cognitive impairment - evaluated by psychiatry and does need guardianship + awaiting paperwork # DM2 complicated by hypoglycemia - d/c'ed metformin due to worsening renal function, added glipizide, recommend strict diabetic diet # hypothyroidism ?- continue LT4 # C diff colitis - resolved, s/p 14d of vancomycin treatment # acute grief reaction/depression - due to passing of , seems stable # VTE ppx ambulation #general issues: will monitor basic labs q3-4 weeks Full code dispo - waiting placement/guardianship DVT pptx - low risk, she ambulates multiple times throughout the day in the [facility] Quality Stroke Does the patient have a stroke diagnosis?: No VTE Prior VTE?: No VTE Risk Level:: Medical - moderate - high VTE Device Contraindication: N/A - Device Ordered VTE Drug Contraindication: N/A - Med Ordered
--- NOTE | 2021-03-21 11:29 | MHC.CARE ---
CARE Team met with Pt to provide support.
[2021-03-21 15:23] VITALS: BP 149/63; PULSE 67; RESP 18; TEMP 36.1; O2SAT 97
[2021-03-21] MEDS: Doxazosin Mesylate 2 MG TABLET 4 MG PO (21:07)
[2021-03-21] MEDS: Atorvastatin Calcium 80 MG TABLET PO (21:08)
[2021-03-22] VITALS: BP 130/71; PULSE 57; RESP 14; TEMP 36.2; O2SAT 93
[2021-03-22] MEDS: Levothyroxine Sodium 75 MCG TABLET PO (05:42)
[2021-03-22] MEDS: Aspirin 81 MG TAB.CHEW PO (07:37)
[2021-03-22] MEDS: Ferrous Sulfate 324 MG TABLET.DR PO (07:37)
[2021-03-22] MEDS: Isosorbide Mononitrate 30 MG TAB.ER.24H PO (07:37)
[2021-03-22] MEDS: glipiZIDE 5 MG TABLET 2.5 MG PO ×2 (07:37→15:39)
[2021-03-22] MEDS: Losartan Potassium 50 MG TABLET 100 MG PO (07:38)
[2021-03-22] MEDS: hydrALAZINE HCl 50 MG TABLET PO ×3 (07:38→20:52)
[2021-03-22] MEDS: Spironolactone 25 MG TABLET 50 MG PO (07:38)
[2021-03-22 07:39] VITALS: BP 190/80; PULSE 62; RESP 16; TEMP 36.5; O2SAT 97
[2021-03-22] MEDS: NIFEdipine ER 60 MG TAB.ER.24 120 MG PO (07:39)
--- NOTE | 2021-03-22 09:00 | HO.PM.IMPN ---
Subjective Subjective Date of Service: 03/22/21 Interval History: seen and examined this AM no new complaints by her was incontinent of urine today -- she tells me she forgot to urinate before going to bed Review of Systems General - no fevers or chills Cardiovascular - no chest pain Respiratory - no shortness of breath or cough Abdominal- no abdominal pain, nausea, vomiting, diarrhea Physical Exam Vital Signs: Vital Signs: Last Vital Signs Temp 97.7 F 03/22/21 07:39 Pulse 62 03/22/21 07:39 Resp 16 03/22/21 07:39 BP 190/80 H 03/22/21 07:39 Pulse Ox 97 03/22/21 07:39 Body Mass Index 20.1 Const: Other: General - no acute distress, appears comfortable Cardiovascular - regular rate and rhythm, S1-S2 Lungs - normal respiratory effort, clear to auscultation bilaterally, no wheezing Abdomen - soft, nontender, no rebound or guarding Extremities - no edema bilaterally Neuro - awake and alert, no focal deficits; disoriented to location Objective Data Current Medications Generic Name Dose Route Start Last Admin Trade Name Freq PRN Reason Stop Dose Admin Aspirin 81 mg 02/28/21 09:00 03/22/21 07:37 Aspirin 81 Mg Tab.Chew PO 81 mg DAILY RAGHAVENDRA Administration Atorvastatin Calcium 80 mg 02/27/21 08:00 03/21/21 21:08 Atorvastatin Calcium 80 Mg Tablet PO 80 mg BEDTIME RAGHAVENDRA Administration Clonidine 0.1 mg 03/13/21 09:00 03/20/21 10:30 Clonidine 0.1 Mg Patch.Tdwk TRANSDERMA 0.1 mg Tu@0900 RAGHAVENDRA Administration Protocol Doxazosin Mesylate 4 mg 03/19/21 21:00 03/21/21 21:07 Doxazosin Mesylate 2 Mg Tablet PO 4 mg BEDTIME RAGHAVENDRA Administration Protocol Ferrous Sulfate 324 mg 02/28/21 09:00 03/22/21 07:37 Ferrous Sulfate 324 Mg Tablet. PO 324 mg DAILY RAGHAVENDRA Administration Glipizide 2.5 mg 02/24/21 17:00 03/22/21 07:37 Glipizide 5 Mg Tablet PO 2.5 mg BIDWM RAGHAVENDRA Administration Guaifenesin/Dextromethorphan 5 ml 03/02/21 23:01 Guaifenesin Dm 100/10/5 Ml 5 Ml Syrup PO Q6H PRN cough Hydralazine HCl 50 mg 03/08/21 15:00 03/22/21 07:38 Hydralazine Hcl 50 Mg Tablet PO 50 mg TID RAGHAVENDRA Administration Protocol Isosorbide Mononitrate 30 mg 03/04/21 14:30 03/22/21 07:37 Isosorbide Mononitrate 30 Mg Tab.Er.24h PO 30 mg DAILY RAGHAVENDRA Administration Protocol Levothyroxine Sodium 75 mcg 01/13/21 09:00 03/22/21 05:42 Levothyroxine Sodium 75 Mcg Tablet PO 75 mcg DAILY@0600 RAGHAVENDRA Administration Losartan Potassium 100 mg 03/08/21 09:00 03/22/21 07:38 Losartan Potassium 50 Mg Tablet PO 100 mg DAILY RAGHAVENDRA Administration Protocol Nifedipine 120 mg 02/13/21 09:00 03/22/21 07:39 Nifedipine Er 60 Mg Tab.Er.24 PO 120 mg DAILY RAGHAVENDRA Administration Protocol Ondansetron HCl 4 mg 03/02/21 14:26 03/02/21 12:30 Ondansetron Hcl 4 Mg/2 Ml Vial IVPUSH 4 mg Q4H PRN Administration nausea/vomiting Spironolactone 50 mg 03/11/21 09:00 03/22/21 07:38 Spironolactone 25 Mg Tablet PO 50 mg DAILY RAGHAVENDRA Administration Protocol Labs CBC & Chem 7: 03/19/21 10:14 03/16/21 06:09 Assessment and Plan (1) HTN (hypertension): Status: Acute Assessment and Plan: 85yo F with HTN, HLD, DM2, hypothyroidism, CAD s/p PCI. initially admitted with falls, elevated troponin; disposition complicated by cognitive impairment requiring guardianship on 02/26/21 developed hypoxia, dyspnea -> CHF exacerbation with NSTEMI on 03/02/21 had 2 episodes of junctional bradycardia/sinus pause associated with BM and vomiting # Resistant HTN overall trend improving, but still elevated Renal artery stenosis not seen on CT angio Nifedipine 120 Imdur 30 Clonodine 0.1mg patch q weekly (pulse as been greater than 55 during vitals, not on tele) Losartan 100 Hydralazine 50 Aldactone 50 Dozazosin increased from 2mg to 4mg 03/19 # sinus pause, junctional bradycardia.? No further episodes - likely vasovagal; Cardiology concurs.? 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, repleted Fe IV and transfused 2u pRBCs and Hb improved # cognitive impairment - evaluated by psychiatry and does need guardianship + awaiting paperwork # DM2 complicated by hypoglycemia - d/c'ed metformin due to worsening renal function, added glipizide, recommend strict diabetic diet # hypothyroidism ?- continue LT4 # C diff colitis - resolved, s/p 14d of vancomycin treatment # acute grief reaction/depression - due to passing of , seems stable # VTE ppx ambulation #general issues: will monitor basic labs q3-4 weeks Full code dispo - waiting placement/guardianship DVT pptx - low risk, she ambulates multiple times throughout the day in the [facility] Stroke Does the patient have a stroke diagnosis?: No VTE Prior VTE?: No VTE Risk Level:: Medical - moderate - high VTE Device Contraindication: N/A - Device Ordered VTE Drug Contraindication: N/A - Med Ordered
[2021-03-22 13:30] VITALS: BP 178/106
[2021-03-22 16:00] VITALS: BP 194/90; PULSE 64; RESP 14; TEMP 36.3; O2SAT 95
[2021-03-22] MEDS: Doxazosin Mesylate 2 MG TABLET 4 MG PO (20:53)
[2021-03-22] MEDS: Atorvastatin Calcium 80 MG TABLET PO (20:55)
[2021-03-22 23:28] VITALS: BP 160/71; PULSE 65; RESP 16; TEMP 36.3; O2SAT 94
[2021-03-23] MEDS: Levothyroxine Sodium 75 MCG TABLET PO (06:21)
[2021-03-23 07:35] VITALS: BP 190/68; PULSE 61; RESP 18; TEMP 36.5; O2SAT 96
[2021-03-23] MEDS: NIFEdipine ER 60 MG TAB.ER.24 120 MG PO (07:37)
[2021-03-23] MEDS: Aspirin 81 MG TAB.CHEW PO (07:37)
[2021-03-23] MEDS: Isosorbide Mononitrate 30 MG TAB.ER.24H PO (07:37)
[2021-03-23] MEDS: Spironolactone 25 MG TABLET 50 MG PO (07:38)
[2021-03-23] MEDS: Losartan Potassium 50 MG TABLET 100 MG PO (07:38)
[2021-03-23] MEDS: hydrALAZINE HCl 50 MG TABLET PO ×3 (07:39→20:39)
[2021-03-23] MEDS: glipiZIDE 5 MG TABLET 2.5 MG PO ×2 (07:39→18:00)
[2021-03-23] MEDS: Ferrous Sulfate 324 MG TABLET.DR PO (07:39)
--- NOTE | 2021-03-23 08:51 | MHC.CM.PN ---
THIS PRECISION DEVICES INSPECTOR/TESTER LEFT A VOICEMAIL FOR GUARDIAN/CONSERVATOR CRISTINA Bird @ [phone] REQUEST FOR CONSENT TO ADMINISTER THE MODERNA VACCINE TO PATIENT, WHO HAS ASKED IF SHE IS ABLE TO BE VACCINATED HERE. CASE MANAGEMENT LEFT TWO CONTACT PHONE NUMBERS FOR A CALL BACK. CASE MANAGEMENT FOLLOWING
--- NOTE | 2021-03-23 09:50 | P.PNIM_ITS ---
Subjective Subjective Date of Service: 03/23/21 Interval History: seen and examined this AM very emotional today Review of Systems General - no fevers or chills Cardiovascular - no chest pain Respiratory - no shortness of breath or cough Abdominal- no abdominal pain, nausea, vomiting, diarrhea Physical Exam Vital Signs: Vital Signs: Last Vital Signs Temp 97.7 F 03/23/21 07:35 Pulse 61 03/23/21 07:35 Resp 18 03/23/21 07:35 BP 190/68 H 03/23/21 07:35 Pulse Ox 96 03/23/21 07:35 Body Mass Index 20.1 Const: Other: General - no acute distress, appears comfortable Cardiovascular - regular rate and rhythm, S1-S2 Lungs - normal respiratory effort, clear to auscultation bilaterally, no wheezing Abdomen - soft, nontender, no rebound or guarding Extremities - no edema bilaterally Neuro - awake and alert, no focal deficits; disoriented to location Objective Data Current Medications Generic Name Dose Route Start Last Admin Trade Name Freq PRN Reason Stop Dose Admin Aspirin 81 mg 02/28/21 09:00 03/23/21 07:37 Aspirin 81 Mg Tab.Chew PO 81 mg DAILY RAGHAVENDRA Administration Atorvastatin Calcium 80 mg 02/27/21 08:00 03/22/21 20:55 Atorvastatin Calcium 80 Mg Tablet PO 80 mg BEDTIME RAGHAVENDRA Administration Clonidine 0.1 mg 03/13/21 09:00 03/20/21 10:30 Clonidine 0.1 Mg Patch.Tdwk TRANSDERMA 0.1 mg Tu@0900 RAGHAVENDRA Administration Protocol Doxazosin Mesylate 4 mg 03/19/21 21:00 03/22/21 20:53 Doxazosin Mesylate 2 Mg Tablet PO 4 mg BEDTIME RAGHAVENDRA Administration Protocol Ferrous Sulfate 324 mg 02/28/21 09:00 03/23/21 07:39 Ferrous Sulfate 324 Mg Tablet. PO 324 mg DAILY RAGHAVENDRA Administration Glipizide 2.5 mg 02/24/21 17:00 03/23/21 07:39 Glipizide 5 Mg Tablet PO 2.5 mg BIDWM RAGHAVENDRA Administration Guaifenesin/Dextromethorphan 5 ml 03/02/21 23:01 Guaifenesin Dm 100/10/5 Ml 5 Ml Syrup PO Q6H PRN cough Hydralazine HCl 50 mg 03/08/21 15:00 03/23/21 07:39 Hydralazine Hcl 50 Mg Tablet PO 50 mg TID RAGHAVENDRA Administration Protocol Isosorbide Mononitrate 30 mg 03/04/21 14:30 03/23/21 07:37 Isosorbide Mononitrate 30 Mg Tab.Er.24h PO 30 mg DAILY RAGHAVENDRA Administration Protocol Levothyroxine Sodium 75 mcg 01/13/21 09:00 03/23/21 06:21 Levothyroxine Sodium 75 Mcg Tablet PO 75 mcg DAILY@0600 RAGHAVENDRA Administration Losartan Potassium 100 mg 03/08/21 09:00 03/23/21 07:38 Losartan Potassium 50 Mg Tablet PO 100 mg DAILY RAGHAVENDRA Administration Protocol Nifedipine 120 mg 02/13/21 09:00 03/23/21 07:37 Nifedipine Er 60 Mg Tab.Er.24 PO 120 mg DAILY RAGHAVENDRA Administration Protocol Ondansetron HCl 4 mg 03/02/21 14:26 03/02/21 12:30 Ondansetron Hcl 4 Mg/2 Ml Vial IVPUSH 4 mg Q4H PRN Administration nausea/vomiting Spironolactone 50 mg 03/11/21 09:00 03/23/21 07:38 Spironolactone 25 Mg Tablet PO 50 mg DAILY RAGHAVENDRA Administration Protocol Labs CBC & Chem 7: 03/19/21 10:14 03/16/21 06:09 Assessment and Plan (1) HTN (hypertension): Status: Acute Assessment and Plan: 85yo F with HTN, HLD, DM2, hypothyroidism, CAD s/p PCI. initially admitted with falls, elevated troponin; disposition complicated by cognitive impairment requiring guardianship on 02/26/21 developed hypoxia, dyspnea -> CHF exacerbation with NSTEMI on 03/02/21 had 2 episodes of junctional bradycardia/sinus pause associated with BM and vomiting # Resistant HTN elevated last 24 hours, likely worsened by patients emotionality Renal artery stenosis not seen on CT angio Nifedipine 120 Imdur 30 Clonodine 0.1mg patch q weekly (pulse as been greater than 55 during vitals, not on tele) Losartan 100 Hydralazine 50 Aldactone 50 Dozazosin increased from 2mg to 4mg 03/19 # sinus pause, junctional bradycardia.? No further episodes - likely vasovagal; Cardiology concurs.? 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, repleted Fe IV and transfused 2u pRBCs and Hb improved # cognitive impairment - evaluated by psychiatry and does need guardianship + awaiting paperwork # DM2 complicated by hypoglycemia - d/c'ed metformin due to worsening renal function, added glipizide, recommend strict diabetic diet # hypothyroidism ?- continue LT4 # C diff colitis - resolved, s/p 14d of vancomycin treatment # acute grief reaction/depression - due to passing of , seems stable # VTE ppx ambulation #general issues: will monitor basic labs q3-4 weeks Full code dispo - waiting placement/guardianship DVT pptx - low risk, she ambulates multiple times throughout the day in the hallways Quality Stroke Does the patient have a stroke diagnosis?: No VTE Prior VTE?: No VTE Risk Level:: Medical - moderate - high VTE Device Contraindication: N/A - Device Ordered VTE Drug Contraindication: N/A - Med Ordered
--- NOTE | 2021-03-23 11:36 | MHC.CM.PN ---
Addendum entered by Martha Snow 03/23/21 15:25: NURSE DORMITORY KEEPER NOTE T.C CALL WITH CRISTINA EDWARDS,CONSERVATOR AND GUARDIAN, SHE REPORTED THAT SHE SENT THE [facility] IN AND ALSO SENT COPY TO [facility] , CLINICAL UPDATES SENT TO DATE VIA ALL SCRIPTS THEY RESPONDED THAT THEY DID RECEIVE THE [facility]PLICATION PAPERWORK AND THAT IT IS UNDER REVIEW BY THE [employer], CRISTINA REPORTED TO US THAT ( THE THE HOUSE CAN GO POSSIBLY UP FOR SALE EARLY NEXT WEEK) DORMITORY KEEPER TO CONTINUE TO FOLLOW Original Note: NURSE DORMITORY KEEPER NOTE ELECTRONIC MEDICAL RECORD REVIEWED ALONG WITH CASE DISCUSSED WITH STAFF NURSE . MET WITH PATIENT SHE IS STILL VERBALIZING FRUSTRATION OF BEING IN THE HOSPITAL AND NOT BEING ABLE TO RETURN TO HER HOUSE. AND HAVING A FOR HER . TIME SPEND WITH HER FOR EMOTIONAL SUPPORT, REPEATING MANY OF THE SAME BELIEFS SHE HAS THAT THE PROPERTY, BARN ,HOUSE IS IN GOOD CONDITION AND SHE WANTS TO RETURN BACK TO HER HOME, SHE VERBALIZES DISBELIEF THAT THE COURT AND GUARDIAN /CONSERVATOR CAN TAKE HER HOUSE AWAY , [facility] FO[facility] HER , THYE ARE AWAITING THE COOMPLETION OF THE [facility] FROM THE GUARDIAN/CONSERVATOR. THEY REUQIRE THIS BEFORE THEY CAN ACCEPT HER [facility]DC CARE. PATIENT DISCUSSED HER CONFUCIANISM CATHOLIC, ASKED IF SHE WOULD LIKE TO SEE A BONE PROCESS OPERATOR AND HAVE COMMUNION AND SHE WAS VERY HAPPY AND SAID SHE WPULD LIKE THIS VERY MUCH , [employer] EGG PACKER CALLING FOR SENIOR QUALITY ENGINEER TO VISIT AND GIVE COMMUNION
[2021-03-23 14:28] VITALS: BP 143/69
--- NOTE | 2021-03-23 14:28 | MHC.CM.PN ---
Addendum entered by Vibha Bills 03/23/21 14:39: FORMS TO BE SENT TO PO BOX ON FILE AND WILL NOT BE SENT CERTIFIED. CRISTINA EDWARDS AWARE Original Note: CASE MANAGEMENT RECEIVED CALL BACK FROM GUARDIAN/CONSERVATOR CRISTINA EDWARDS ([phone]) CRISTINA GIVES CONSENT FOR PATIENT TO RECEIVE THE [employer] COVID-19 VACCINE SERIES CONSENT HEARD BY THIS RESTAURANT RECRUITER AND MAGAZINE REPAIRER; SIGNED AND PLACED IN CHART. PER REQUEST, COPY OF CONSENT AND FACT SHEET FOR RECIPIENTS AND CAREGIVERS MAILED CERTIFIED TO ADDRESS ON FILE. RN AND PATIENT (WHO AGREES TO RECEIVE VACCINE SERIES) AWARE OF THE PLAN.
[2021-03-23 15:35] VITALS: BP 148/68; PULSE 64; RESP 16; TEMP 36.2; O2SAT 96
[2021-03-23 20:39] VITALS: BP 148/68; PULSE 64
[2021-03-23] MEDS: Atorvastatin Calcium 80 MG TABLET PO (20:39)
[2021-03-23 20:40] VITALS: BP 148/68; PULSE 64
[2021-03-23] MEDS: Doxazosin Mesylate 2 MG TABLET 4 MG PO (20:40)
[2021-03-23 23:41] VITALS: BP 159/66; PULSE 62; RESP 16; TEMP 36.3; O2SAT 93
[2021-03-24] MEDS: Levothyroxine Sodium 75 MCG TABLET PO (06:06)
[2021-03-24 07:34] VITALS: BP 172/74; PULSE 60; RESP 17; TEMP 36.4; O2SAT 95
[2021-03-24] MEDS: Spironolactone 25 MG TABLET 50 MG PO (07:51)
[2021-03-24] MEDS: Ferrous Sulfate 324 MG TABLET.DR PO (07:52)
[2021-03-24] MEDS: Losartan Potassium 50 MG TABLET 100 MG PO (07:52)
[2021-03-24] MEDS: Aspirin 81 MG TAB.CHEW PO (07:52)
[2021-03-24] MEDS: NIFEdipine ER 60 MG TAB.ER.24 120 MG PO (07:53)
[2021-03-24] MEDS: Isosorbide Mononitrate 30 MG TAB.ER.24H PO (07:53)
[2021-03-24] MEDS: hydrALAZINE HCl 50 MG TABLET PO ×3 (07:53→21:46)
[2021-03-24] MEDS: glipiZIDE 5 MG TABLET 2.5 MG PO ×2 (07:54→16:08)
--- NOTE | 2021-03-24 13:53 | P.PNIM_ITS ---
Progress Note: A&P (1) HTN (hypertension): Status: Acute Assessment and Plan: 85yo F with HTN, HLD, DM2, hypothyroidism, CAD s/p PCI. initially admitted with falls, elevated troponin; disposition complicated by cognitive impairment requiring guardianship on 02/26/21 developed hypoxia, dyspnea -> CHF exacerbation with NSTEMI on 03/02/21 had 2 episodes of junctional bradycardia/sinus pause associated with BM and vomiting # Resistant HTN elevated last 24 hours, likely worsened by patients emotionality Renal artery stenosis not seen on CT angio Nifedipine 120 Imdur 30 Clonodine 0.1mg patch q weekly (pulse as been greater than 55 during vitals, not on tele) Losartan 100 Hydralazine 50 Aldactone 50 Dozazosin increased from 2mg to 4mg 03/19 Covid vaccination #1 on 03/23/21 # sinus pause, junctional bradycardia.? No further episodes - likely vasovagal; Cardiology concurs.? 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, repleted Fe IV and transfused 2u pRBCs and Hb improved # cognitive impairment - evaluated by psychiatry and does need guardianship + awaiting paperwork # DM2 complicated by hypoglycemia - d/c'ed metformin due to worsening renal function, added glipizide, recommend strict diabetic diet # hypothyroidism ?- continue LT4 # C diff colitis - resolved, s/p 14d of vancomycin treatment # acute grief reaction/depression - due to passing of , seems stable # VTE ppx ambulation #general issues: will monitor basic labs q3-4 weeks Full code dispo - waiting placement/guardianship DVT pptx - low risk, she ambulates multiple times throughout the day in the hallways Subjective Subjective Date of Service: 03/24/21 Interval History: Follow up HTN No pain covid vaccine yesterday Physical Exam Vital Signs: Vital Signs: Last Vital Signs Temp 97.5 F 03/24/21 07:34 Pulse 60 03/24/21 07:34 Resp 17 03/24/21 07:34 BP 172/74 H 03/24/21 07:34 Pulse Ox 95 03/24/21 07:34 Body Mass Index 20.1 Appearing in no acute distress lung sounds are clear to auscultation heart regular rate rhythm, clear S1, S2 positive bowel sounds, abdomen is soft, nontender neuro patient is alert x3, no focal deficits Objective Data Current Medications Generic Name Dose Route Start Last Admin Trade Name Srinivas PRN Reason Stop Dose Admin Aspirin 81 mg 02/28/21 09:00 03/24/21 07:52 Aspirin 81 Mg Tab.Chew PO 81 mg DAILY RAGHAVENDRA Administration Atorvastatin Calcium 80 mg 02/27/21 08:00 03/23/21 20:39 Atorvastatin Calcium 80 Mg Tablet PO 80 mg BEDTIME RAGHAVEDNRA Administration Clonidine 0.1 mg 03/13/21 09:00 03/20/21 10:30 Clonidine 0.1 Mg Patch.Tdwk TRANSDERMA 0.1 mg Tu@0900 RAGHAVENDRA Administration Protocol Doxazosin Mesylate 4 mg 03/19/21 21:00 03/23/21 20:40 Doxazosin Mesylate 2 Mg Tablet PO 4 mg BEDTIME RAGHAVENDRA Administration Protocol Ferrous Sulfate 324 mg 02/28/21 09:00 03/24/21 07:52 Ferrous Sulfate 324 Mg Tablet.Dr PO 324 mg DAILY RAGHAVENDRA Administration Glipizide 2.5 mg 02/24/21 17:00 03/24/21 07:54 Glipizide 5 Mg Tablet PO 2.5 mg BIDWM RAGHAVENDRA Administration Guaifenesin/Dextromethorphan 5 ml 03/02/21 23:01 Guaifenesin Dm 100/10/5 Ml 5 Ml Syrup PO Q6H PRN cough Hydralazine HCl 50 mg 03/08/21 15:00 03/24/21 07:53 Hydralazine Hcl 50 Mg Tablet PO 50 mg TID RAGHAVENDRA Administration Protocol Isosorbide Mononitrate 30 mg 03/04/21 14:30 03/24/21 07:53 Isosorbide Mononitrate 30 Mg Tab.Er.24h PO 30 mg DAILY RAGHAVENDRA Administration Protocol Levothyroxine Sodium 75 mcg 01/13/21 09:00 03/24/21 06:06 Levothyroxine Sodium 75 Mcg Tablet PO 75 mcg DAILY@0600 RAGHAVENDRA Administration Losartan Potassium 100 mg 03/08/21 09:00 03/24/21 07:52 Losartan Potassium 50 Mg Tablet PO 100 mg DAILY RAGHAVENDRA Administration Protocol Nifedipine 120 mg 02/13/21 09:00 03/24/21 07:53 Nifedipine Er 60 Mg Tab.Er.24 PO 120 mg DAILY RAGHAVENDRA Administration Protocol Ondansetron HCl 4 mg 03/02/21 14:26 03/02/21 12:30 Ondansetron Hcl 4 Mg/2 Ml Vial IVPUSH 4 mg Q4H PRN Administration nausea/vomiting Spironolactone 50 mg 03/11/21 09:00 03/24/21 07:51 Spironolactone 25 Mg Tablet PO 50 mg DAILY RAGHAVENDRA Administration Protocol Labs CBC & Chem 7: 03/19/21 10:14 03/16/21 06:09 Microbiology Microbiology Results: Microbiology 11/24/20 08:18 Stool Stool Culture - Final 09/21/20 Unknown Urine clean catch - Clean Catch Midstream Urine Culture - Final No growth. Quality Stroke Does the patient have a stroke diagnosis?: No VTE Prior VTE?: No VTE Risk Level:: Medical - moderate - high VTE Device Contraindication: N/A - Device Ordered VTE Drug Contraindication: N/A - Med Ordered
[2021-03-24 15:31] VITALS: BP 171/71; PULSE 78; RESP 20; TEMP 36.6; O2SAT 96
[2021-03-24 21:46] VITALS: BP 193/81; PULSE 65
[2021-03-24] MEDS: Atorvastatin Calcium 80 MG TABLET PO (21:46)
[2021-03-24 21:48] VITALS: BP 193/81; PULSE 65
[2021-03-24] MEDS: Doxazosin Mesylate 2 MG TABLET 4 MG PO (21:48)
[2021-03-24 23:35] VITALS: BP 198/84; PULSE 62; RESP 16; TEMP 36.1; O2SAT 95
[2021-03-25] MEDS: Levothyroxine Sodium 75 MCG TABLET PO (05:46)
[2021-03-25 08:00] VITALS: BP 160/71; PULSE 58; RESP 17; TEMP 36.4; O2SAT 95
[2021-03-25] MEDS: Aspirin 81 MG TAB.CHEW PO (08:36)
[2021-03-25] MEDS: glipiZIDE 5 MG TABLET 2.5 MG PO ×2 (08:36→15:55)
[2021-03-25] MEDS: hydrALAZINE HCl 50 MG TABLET PO ×3 (08:36→20:19)
[2021-03-25] MEDS: NIFEdipine ER 60 MG TAB.ER.24 120 MG PO (08:37)
[2021-03-25] MEDS: Losartan Potassium 50 MG TABLET 100 MG PO (08:37)
[2021-03-25] MEDS: Spironolactone 25 MG TABLET 50 MG PO (08:37)
[2021-03-25] MEDS: Ferrous Sulfate 324 MG TABLET.DR PO (08:37)
[2021-03-25] MEDS: Isosorbide Mononitrate 30 MG TAB.ER.24H PO (08:37)
--- NOTE | 2021-03-25 12:06 | P.PNIM_ITS ---
Progress Note: A&P (1) HTN (hypertension): Status: Acute Assessment and Plan: 85yo F with HTN, HLD, DM2, hypothyroidism, CAD s/p PCI. initially admitted with falls, elevated troponin; disposition complicated by cognitive impairment requiring guardianship on 02/26/21 developed hypoxia, dyspnea -> CHF exacerbation with NSTEMI on 03/02/21 had 2 episodes of junctional bradycardia/sinus pause associated with BM and vomiting # Resistant HTN. Still elevated, likely worsened by patients emotionality Followed closely by nephrology Renal artery stenosis not seen on CT angio Nifedipine 120 Imdur 30 Clonodine 0.1mg patch q weekly (pulse as been greater than 55 during vitals, not on tele) Losartan 100 Hydralazine 50 Aldactone 50 Dozazosin increased from 2mg to 4mg 03/19 # acute grief reaction/depression - due to passing of , seems stable - CARE team consult Covid vaccination #1 on 03/23/21 # sinus pause, junctional bradycardia.? No further episodes - likely vasovagal; Cardiology concurs.? 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 - SCr improved; monitor BMP, avoid nephrotoxins # acute hypoxic RF - resolved # normocytic anemia - likely JI + ACKD, repleted Fe IV and transfused 2u pRBCs and Hb improved # cognitive impairment - evaluated by psychiatry and does need guardianship + awaiting paperwork # DM2 complicated by hypoglycemia - d/c'ed metformin due to worsening renal function, added glipizide, recommend strict diabetic diet # hypothyroidism ?- continue LT4 # C diff colitis - resolved, s/p 14d of vancomycin treatment # VTE ppx ambulation #general issues: will monitor basic labs q3-4 weeks Full code dispo - waiting placement/guardianship DVT pptx - low risk, she ambulates multiple times throughout the day in the hallways Attending Dr. [place] Subjective Subjective Date of Service: 03/25/21 Interval History: Follow up resistant hypertension Feeling sad no pain, no dizziness Physical Exam Vital Signs: Vital Signs: Last Vital Signs Temp 97.6 F 03/25/21 08:00 Pulse 58 03/25/21 08:00 Resp 17 03/25/21 08:00 BP 160/71 H 03/25/21 08:00 Pulse Ox 95 03/25/21 08:00 Body Mass Index 20.1 Appearing in no acute distress lung sounds are clear to auscultation heart regular rate rhythm, clear S1, S2 positive bowel sounds, abdomen is soft, nontender neuro patient is alert x3, no focal deficits Objective Data Current Medications Generic Name Dose Route Start Last Admin Trade Name Srinivas PRN Reason Stop Dose Admin Aspirin 81 mg 02/28/21 09:00 03/25/21 08:36 Aspirin 81 Mg Tab.Chew PO 81 mg DAILY RAGHAVENDRA Administration Atorvastatin Calcium 80 mg 02/27/21 08:00 03/24/21 21:46 Atorvastatin Calcium 80 Mg Tablet PO 80 mg BEDTIME RAGHAVENDRA Administration Clonidine 0.1 mg 03/13/21 09:00 03/20/21 10:30 Clonidine 0.1 Mg Patch.Tdwk TRANSDERMA 0.1 mg Tu@0900 RAGHAVENDRA Administration Protocol Doxazosin Mesylate 4 mg 03/19/21 21:00 03/24/21 21:48 Doxazosin Mesylate 2 Mg Tablet PO 4 mg BEDTIME RAGHAVENDRA Administration Protocol Ferrous Sulfate 324 mg 02/28/21 09:00 03/25/21 08:37 Ferrous Sulfate 324 Mg Tablet.Dr PO 324 mg DAILY RAGHAVENDRA Administration Glipizide 2.5 mg 02/24/21 17:00 03/25/21 08:36 Glipizide 5 Mg Tablet PO 2.5 mg BIDWM RAGHAVENDRA Administration Guaifenesin/Dextromethorphan 5 ml 03/02/21 23:01 Guaifenesin Dm 100/10/5 Ml 5 Ml Syrup PO Q6H PRN cough Hydralazine HCl 50 mg 03/08/21 15:00 03/25/21 08:36 Hydralazine Hcl 50 Mg Tablet PO 50 mg TID RAGHAVENDRA Administration Protocol Isosorbide Mononitrate 30 mg 03/04/21 14:30 03/25/21 08:37 Isosorbide Mononitrate 30 Mg Tab.Er.24h PO 30 mg DAILY RAGHAVENDRA Administration Protocol Levothyroxine Sodium 75 mcg 01/13/21 09:00 03/25/21 05:46 Levothyroxine Sodium 75 Mcg Tablet PO 75 mcg DAILY@0600 RAGHAVENDRA Administration Losartan Potassium 100 mg 03/08/21 09:00 03/25/21 08:37 Losartan Potassium 50 Mg Tablet PO 100 mg DAILY RAGHAVENDRA Administration Protocol Nifedipine 120 mg 02/13/21 09:00 03/25/21 08:37 Nifedipine Er 60 Mg Tab.Er.24 PO 120 mg DAILY RAGHAVENDRA Administration Protocol Ondansetron HCl 4 mg 03/02/21 14:26 03/02/21 12:30 Ondansetron Hcl 4 Mg/2 Ml Vial IVPUSH 4 mg Q4H PRN Administration nausea/vomiting Spironolactone 50 mg 03/11/21 09:00 03/25/21 08:37 Spironolactone 25 Mg Tablet PO 50 mg DAILY RAGHAVENDRA Administration Protocol Labs CBC & Chem 7: 03/19/21 10:14 03/16/21 06:09 Microbiology Microbiology Results: Microbiology 11/24/20 08:18 Stool Stool Culture - Final 09/21/20 Unknown Urine clean catch - Clean Catch Midstream Urine Culture - Final No growth. Quality Stroke Does the patient have a stroke diagnosis?: No VTE Prior VTE?: No VTE Risk Level:: Medical - moderate - high VTE Device Contraindication: N/A - Device Ordered VTE Drug Contraindication: N/A - Med Ordered
[2021-03-25 15:26] VITALS: BP 158/70; PULSE 65; RESP 19; TEMP 36.7; O2SAT 94
--- NOTE | 2021-03-25 19:08 | P.PNNP_ITS ---
Subjective Subjective Date of Service: 03/25/21 Principal diagnosis: htn Interval history: Seen and examined, events noted Follow up resistant hypertension Physical Exam Vital Signs: Vital Signs: Last Vital Signs Temp 98.1 F 03/25/21 15:26 Pulse 65 03/25/21 15:26 Resp 19 03/25/21 15:26 BP 158/70 H 03/25/21 15:26 Pulse Ox 94 03/25/21 15:26 Body Mass Index 20.1 Const: Other: General: AO X 3, no acute distress Resp: CTA bilateral CVS: S1,S2,RRR GI: +BS, NT, no distention Skin: No rash Neuro: motor grossly intact Psych: depressed compare to usual General: cooperative, healthy appearing, comfortable, no acute distress, well developed, alert and awake; No acute distress Nutritional Appearance: average body habitus and well nourished Orientation/consciousness: oriented to person, oriented to place and patient oriented x3 Limitations: no limitations and other limitations (Question if the patient remembers events correctly) HENMT: Head: Yes normal to inspection, Yes normocephalic and Yes atraumatic Ears: hearing grossly normal bilaterally and external ears normal General nose exam: Normal external nose present Face and sinus: Yes normal facial exam Mouth: Normal oral and palatal mucosa present and oropharynx normal Throat: Yes posterior oropharynx normal Eyes: General: appearance normal, both eyes and all related structures Visual Adam: normal visual adam by confrontation Alignment and Position: alignment normal Periorbital: periorbital findings normal Eyelids: Yes eyelids normal Conjunctivae: conjunctivae normal Sclerae: sclerae normal Corneas: corneas normal Pupils: Equal, round and reactive pupils present and Pupil accommodation reflex normal EOM: EOMs intact bilaterally Direct Ophthalmoscopy: normal light reflex Neck: Neck: Yes normal visual inspection, Yes full ROM, Yes no lymphadenopathy, Yes no meningeal signs, Yes trachea midline and Yes supple Thyroid: Thyroid normal Carotids: normal carotid upstroke and bounding pulses Chest: Chest palpation & inspection: normal inspection of the chest and normal palpation of entire chest wall Resp: Effort & Inspection: normal respiratory effort and able to speak in complete sentences Auscultation: clear to auscultation bilaterally, no crackles, no wheezes and diminished lung sounds Cardio: Jugular venous distension: no JVD Palpation: normal PMI Rate: regular rate Rhythm: regular rhythm Heart sounds: S1 normal heart sound present, S2 normal heart sound present, no gallops, Murmur heart sound present systolic early, III/ and at the right sternal border and no rubs Peripheral pulses: Peripheral pulses 2+ throughout GI: Inspection: Yes normal to inspection Palpation (GI): Soft to palpation, nontender, no guarding, not rigid and No hepatosplenomegaly present Percussion: Yes normal to percussion Auscultation: normal bowel sounds Rectal Exam - Female: deferred : General: Yes no CVA tenderness Back/Spine/Pelvis: Back: no CVA tenderness Cervical Spine: normal cervical lordosis and cervical ROM normal Thoracic/Lumbar Spine: thoracic and lumbar s pine normal to inspection Skin: General skin exam: no rashes or lesions noted Lesions: no lesions Rashes: no rashes Wounds: no wounds Neuro: General: oriented to person, oriented to place, patient oriented x3, t one normal, moves all extremities, Normal light touch and pain sensation, no meningeal signs, no focal motor deficits, CN's II-XI intact bilaterally, normal sensation to monofilament and deep tendon reflexes 2+ bilaterally Cranial nerves: Yes CN's II-XII intact bilaterally, Yes Equal, round and reactive pupils present, Yes Bilaterally intact EOM present, Yes Nystagmus not present, Yes Normal facial strength present, Yes Midline tongue present, Yes Normal gag reflex present, Yes Symmetric palate elevation present, Yes Normal hearing present and Yes Ability to bilaterally rotate head present Cognition (Neuro): normal cognition and abnormal cognition Speech: Abnormal speech present and Other speech findings present (Neuro) Motor exam (neuro): 5/5 motor strength present throughout, Pronator motor function not present, no tremor noted, no asterixis, Motor fasciculations not present, Normal motor muscle tone present throughout and Motor abnormalities not present Sensory Exam: Bilaterally intact graphesthesia and Sensory deficit (Neuro) Deep tendon reflexes (DTR's): Right triceps reflex intensity grade: 2+, Left triceps reflex intensity grade: 2+, Rt Biceps (C5, C6): 2+, Left biceps reflex intensity grade: 2+, Right brachioradialis reflex intensity grade: 2+, Left brachioradialis reflex intensity grade: 2+, Right patellar reflex intensity grade: 2+, Left patellar reflex intensity grade: 2+, Right ankle reflex intensity grade: 2+ and Left ankle reflex intensity grade: 2+ Plantar Reflex Responses: downgoing: right, left and bilateral Coordination: [id number] test normal and [id number] test normal Pupils: Normal pupillary reactivity/response: bilateral Extrem: General: Yes normal to inspection, Yes full ROM, Yes normal exam except as noted, Yes no clubbing, cyanosis or edema and Yes no pedal edema Psych: Appearance: grossly normal and well kempt Mental Status: mental status grossly normal Speech and movement: Normal speech and movement present and Clear speech present Affect: normal affect Attitude: cooperative Thought process: Normal thought process present Thought content: Normal thought content present Insight: Other insight findings present (Psych) (Patient may not be recalling events correctly based discussion with [facility]) Objective Data Labs CBC & Chem 7: 03/19/21 10:14 03/16/21 06:09 Microbiology Microbiology Results: Microbiology 11/24/20 08:18 Stool Stool Culture - Final 09/21/20 Unknown Urine clean catch - Clean Catch Midstream Urine Culture - Final No growth. Procedures Date of Service Date of Service: 03/25/21 Assessment & Plan Assessment and plan (1) HTN (hypertension): Status: Acute Assessment and Plan: Resistant HTN Will incr cardura 6 mg qhs and titrate up as needed Time Spent With Patient Time: Total time spent is greater than 50% in coordination of care (as documented) at patient's floor/unit and/or counseling patient: Progress Note: Quality Stroke Does the patient have a stroke diagnosis?: No
[2021-03-25 20:19] VITALS: BP 158/70; PULSE 65
[2021-03-25] MEDS: Atorvastatin Calcium 80 MG TABLET PO (20:19)
[2021-03-25] MEDS: Doxazosin Mesylate 2 MG TABLET 6 MG PO (20:19)
[2021-03-25 23:56] VITALS: BP 177/62; PULSE 71; RESP 16; TEMP 36.2; O2SAT 96
[2021-03-26] VITALS (12 sets, daily range): BP systolic 142–160; BP diastolic 58–74; PULSE 61–71; RESP 16–18; TEMP 36.2–36.7; O2SAT 96–98
[2021-03-26] MEDS: Levothyroxine Sodium 75 MCG TABLET PO (06:29)
--- NOTE | 2021-03-26 08:47 | P.PNNP_ITS ---
Subjective Subjective Date of Service: 03/26/21 Principal diagnosis: htn Interval history: Seen and examined, events noted Follow up resistant hypertension Physical Exam Vital Signs: Vital Signs: Last Vital Signs Temp 98.0 F 03/26/21 08:00 Pulse 64 03/26/21 08:00 Resp 18 03/26/21 08:00 BP 160/73 H 03/26/21 08:00 Pulse Ox 98 03/26/21 08:00 Body Mass Index 20.1 Const: Other: General: AO X 3, no acute distress Resp: CTA bilateral CVS: S1,S2,RRR GI: +BS, NT, no distention Skin: No rash Neuro: motor grossly intact Psych: depressed compare to usual General: cooperative, healthy appearing, comfortable, no acute distress, well developed, alert, awake and Physically active; No acute distress Nutritional Appearance: average body habitus, well nourished and thin Orientation/consciousness: oriented to person, oriented to place and patient oriented x3 Limitations: no limitations and other limitations (Question if the patient remembers events correctly) HENMT: Head: Yes normal to inspection, Yes normocephalic and Yes atraumatic Ears: hearing grossly normal bilaterally and external ears normal General no se exam: Normal external nose present Face and sinus: Yes normal facial exam Mouth: Normal oral and palatal mucosa present and oropharynx normal Throat: Yes posterior oropharynx normal Eyes: General: appearance normal, both eyes and all related structures Visual Adam: normal visual adam by confrontation Alignment and Position: alignment normal Periorbital: periorbital findings normal Eyelids: Yes eyelids normal Conjunctivae: conjunctivae normal Sclerae: sclerae normal Corneas: corneas normal Pupils: Equal, round and reactive pupils present and Pupil accommodation reflex normal EOM: EOMs intact bilaterally Direct Ophthalmoscopy: normal light reflex Neck: Neck: Yes normal visual inspection, Yes full ROM, Yes no lympha denopathy, Yes no meningeal signs, Yes trachea midline and Yes supple Thyroid: Thyroid normal Carotids: normal carotid upstroke and bounding pulses Chest: Chest palpation & inspection: normal inspection of the chest and normal palpation of entire chest wall Resp: Effort & Inspection: normal respiratory effort, able to speak in complete sentences and no respiratory distress Auscultation: clear to auscultation bilaterally, no crackles, no wheezes and diminished lung sounds Cardio: Jugular venous distension: no JVD Palpation: normal PMI Rate: regular rate Rhythm: regular rhythm Heart sounds: S1 normal heart sound present, S2 normal heart sound present, no gallops, Murmur heart sound present systolic early, III/ and at the right sternal border and no rubs Peripheral pulses: Peripheral pulses 2+ throughout GI: Inspection: Yes normal to inspection Palpation (GI): Soft to palpation, nontender, no guarding, not rigid and No hepatosplenomegaly present Percussion: Yes normal to percussion Auscultation: normal bowel sounds Rectal Exam - Female: deferred : General: Yes no CVA tenderness Back/Spine/Pelvis: Back: no CVA tenderness Cervical Spine: normal cervical lordosis and cervical ROM normal Thoracic/Lumbar Spine: thoracic and lumbar spine normal to inspection Skin: General skin exam: no rashes or lesions noted Lesions: no lesions Rashes: no rashes Wounds: no wounds Neuro: General: oriented to person, oriented to place, patient oriented x3, tone normal, moves all extremities, Normal light touch and pain sensation, no meningeal signs, no focal motor deficits, CN's II-XI intact bilaterally, normal sensation to monofilament and deep tendon reflexes 2+ bilaterally Cranial nerves: Yes CN's II-XII intact bilaterally, Yes Equal, round and reactive pupils present, Yes Bilaterally intact EOM present, Yes Nystagmus not present, Yes Normal facial strength present, Yes Midline tongue present, Yes Normal gag reflex present, Yes Symmetric palate elevation present, Yes Normal hearing present and Yes Ability to bilaterally rotate head present Cognition (Neuro): normal cognition and abnormal cognition Speech: Abnormal speech present and Other speech findings present (Neuro) Motor exam (neuro): 5/5 motor strength present throughout, Pronator motor function not present, no tremor noted, no asterixis, Motor fasciculations not present, Normal motor muscle tone present throughout and Motor abnormalities not present Sensory Exam: Bilaterally intact graphesthesia and Sensory deficit (Neuro) Deep tendon reflexes (DTR's): Right triceps reflex intensity grade: 2+, Left triceps reflex intensity grade: 2+, Rt Biceps (C5, C6): 2+, Left biceps reflex intensity grade: 2+, Right brachioradialis reflex intensity grade: 2+, Left brachioradialis reflex intensity grade: 2+, Right patellar reflex intensity grade: 2+, Left patellar reflex intensity grade: 2+, Right ankle reflex intensity grade: 2+ and Left ankle reflex intensity grade: 2+ Plantar Reflex Responses: downgoing: right, left and bilateral Coordination: [id number] test normal and [id number] test normal Pupils: Normal pupillary reactivity/response: bilateral Extrem: General: Yes normal to inspection, Yes full ROM, Yes normal exam exc ept as noted, Yes no clubbing, cyanosis or edema and Yes no pedal edema Psych: Appearance: grossly normal and well kempt Mental Status: mental status grossly normal Speech and movement: Normal speech and movement present and Clear speech present Affect: normal affect Attitude: cooperative Thought process: Normal thought process present Thought content: Normal thought content present Insight: Limited insight present (Psych) and Other insight findings present (Psych) (Patient may not be recalling events correctly based discussion with [facility]) Objective Data Labs CBC & Chem 7: 03/19/21 10:14 03/16/21 06:09 Microbiology Microbiology Results: Microbiology 11/24/20 08:18 Stool Stool Culture - Final 09/21/20 Unknown Urine clean catch - Clean Catch Midstream Urine Culture - Final No growth. Procedures Date of Service Date of Service: 03/26/21 Assessment & Plan Assessment and plan (1) HTN (hypertension): Status: Acute Assessment and Plan: Resistant HTN mild TIMMY on CTA creat up from baseline check UA and urine protein increase spironolactone to 100 qd Time Spent With Patient Time: Total time spent is greater than 50% in coordination of care (as documented) at patient's floor/unit and/or counseling patient: Progress Note: Quality Stroke Does the patient have a stroke diagnosis?: No
[2021-03-26] MEDS: hydrALAZINE HCl 50 MG TABLET PO ×3 (08:48→20:38)
[2021-03-26] MEDS: Isosorbide Mononitrate 30 MG TAB.ER.24H PO (08:49)
[2021-03-26] MEDS: NIFEdipine ER 60 MG TAB.ER.24 120 MG PO (08:50)
[2021-03-26] MEDS: glipiZIDE 5 MG TABLET 2.5 MG PO ×2 (08:51→18:04)
[2021-03-26] MEDS: Ferrous Sulfate 324 MG TABLET.DR PO (08:51)
[2021-03-26] MEDS: Losartan Potassium 50 MG TABLET 100 MG PO (08:52)
[2021-03-26] MEDS: Spironolactone 25 MG TABLET 50 MG PO ×2 (08:53→18:06)
[2021-03-26] MEDS: Aspirin 81 MG TAB.CHEW PO (08:53)
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
--- NOTE | 2021-03-26 12:30 | P.PNIM_ITS ---
Progress Note: A&P (1) HTN (hypertension): Status: Acute Assessment and Plan: 85yo F with HTN, HLD, DM2, hypothyroidism, CAD s/p PCI. initially admitted with falls, elevated troponin; disposition complicated by cognitive impairment requiring guardianship on 02/26/21 developed hypoxia, dyspnea -> CHF exacerbation with NSTEMI on 03/02/21 had 2 episodes of junctional bradycardia/sinus pause associated with BM and vomiting # Resistant HTN. Still elevated, likely worsened by patients emotionality Followed closely by nephrology Renal artery stenosis not seen on CT angio Nifedipine 120 Imdur 30 Clonodine 0.1mg patch q weekly (pulse as been greater than 55 during vitals, not on tele) Losartan 100 Hydralazine 50 Aldactone 50 Dozazosin increased from 2mg to 4mg 03/19 # acute grief reaction/depression - due to passing of , seems stable - CARE team consult Covid vaccination #1 on 03/23/21 # sinus pause, junctional bradycardia.? No further episodes - likely vasovagal; Cardiology concurs.? 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 - SCr improved; monitor BMP, avoid nephrotoxins # acute hypoxic RF - resolved # normocytic anemia - likely JI + ACKD, repleted Fe IV and transfused 2u pRBCs and Hb improved # cognitive impairment - evaluated by psychiatry and does need guardianship + awaiting paperwork # DM2 complicated by hypoglycemia - d/c'ed metformin due to worsening renal function, added glipizide, recommend strict diabetic diet # hypothyroidism ?- continue LT4 # C diff colitis - resolved, s/p 14d of vancomycin treatment # VTE ppx ambulation #general issues: will monitor basic labs q3-4 weeks Full code dispo - waiting placement/guardianship DVT pptx - low risk, she ambulates multiple times throughout the day in the hallways Attending Dr. Blevins Subjective Subjective Date of Service: 03/26/21 Interval History: Follow up hypertensive urgency blood pressure still up feeling sad Physical Exam Vital Signs: Vital Signs: Last Vital Signs Temp 98.0 F 03/26/21 08:00 Pulse 64 03/26/21 08:53 Resp 18 03/26/21 08:00 BP 160/74 H 03/26/21 08:53 Pulse Ox 98 03/26/21 08:00 Body Mass Index 20.1 Appearing in no acute distress lung sounds are clear to auscultation heart regular rate rhythm, clear S1, S2 positive bowel sounds, abdomen is soft, nontender neuro patient is alert, some confusion noted, no focal deficits Objective Data Current Medications Generic Name Dose Route Start Last Admin Trade Name Srinivas PRN Reason Stop Dose Admin Aspirin 81 mg 02/28/21 09:00 03/26/21 08:53 Aspirin 81 Mg Tab.Chew PO 81 mg DAILY RAGHAVENDRA Administration Atorvastatin Calcium 80 mg 02/27/21 08:00 03/25/21 20:19 Atorvastatin Calcium 80 Mg Tablet PO 80 mg BEDTIME RAGHAVENDRA Administration Clonidine 0.1 mg 03/13/21 09:00 03/20/21 10:30 Clonidine 0.1 Mg Patch.Tdwk TRANSDERMA 0.1 mg Tu@0900 RAGHAVENDRA Administration Protocol Doxazosin Mesylate 6 mg 03/25/21 21:00 03/25/21 20:19 Doxazosin Mesylate 2 Mg Tablet PO 6 mg BEDTIME RAGHAVENDRA Administration Protocol Ferrous Sulfate 324 mg 02/28/21 09:00 03/26/21 08:51 Ferrous Sulfate 324 Mg Tablet.Dr PO 324 mg DAILY RAGHAVENDRA Administration Glipizide 2.5 mg 02/24/21 17:00 03/26/21 08:51 Glipizide 5 Mg Tablet PO 2.5 mg BIDWM RAGHAVENDRA Administration Guaifenesin/Dextromethorphan 5 ml 03/02/21 23:01 Guaifenesin Dm 100/10/5 Ml 5 Ml Syrup PO Q6H PRN cough Hydralazine HCl 50 mg 03/08/21 15:00 03/26/21 08:48 Hydralazine Hcl 50 Mg Tablet PO 50 mg TID RAGHAVENDRA Administration Protocol Isosorbide Mononitrate 30 mg 03/04/21 14:30 03/26/21 08:49 Isosorbide Mononitrate 30 Mg Tab.Er.24h PO 30 mg DAILY RAGHAVENDRA Administration Protocol Levothyroxine Sodium 75 mcg 01/13/21 09:00 03/26/21 06:29 Levothyroxine Sodium 75 Mcg Tablet PO 75 mcg DAILY@0600 RAGHAVENDRA Administration Losartan Potassium 100 mg 03/08/21 09:00 03/26/21 08:52 Losartan Potassium 50 Mg Tablet PO 100 mg DAILY [facility] Administration Protocol Nifedipine 120 mg 02/13/21 09:00 03/26/21 08:50 Nifedipine Er 60 Mg Tab.Er.24 PO 120 mg DAILY RAGHAVENDRA Administration Protocol Ondansetron HCl 4 mg 03/02/21 14:26 03/02/21 12:30 Ondansetron Hcl 4 Mg/2 Ml Vial IVPUSH 4 mg Q4H PRN Administration nausea/vomiting Spironolactone 50 mg 03/26/21 18:00 Spironolactone 25 Mg Tablet PO BID@0900,1800 [facility] Protocol Labs CBC & Chem 7: 03/19/21 10:14 03/16/21 06:09 Microbiology Microbiology Results: Microbiology 11/24/20 08:18 Stool Stool Culture - Final 09/21/20 Unknown Urine clean catch - Clean Catch Midstream Urine Culture - Final No growth. Quality Stroke Does the patient have a stroke diagnosis?: No VTE Prior VTE?: No VTE Risk Level:: Medical - moderate - high VTE Device Contraindication: N/A - Device Ordered VTE Drug Contraindication: N/A - Med Ordered
--- NOTE | 2021-03-26 12:48 | MHC.CM.PN ---
This sheet writer placed call to Marta Wren to ask clarifying questions regarding status of the Guardianship process for patient. Currently patient has temporary guardianship orders until May 03, 2021. If between current date and 05/03, pt's current temp guardian (Jodi Annettecierra) in coordination with [facility] Case Management team can secure a longterm facility for the patient, the patient may discharge to that location. The half-way goal for the patient would be a local or that similar to assisted living, this does not need to occur directly from the hospital, and that was confirmed with Marta Wren. The pt's home will only be put for sale this week, the guardian is unable to complete a sale until another court hearing is had regarding that issue specifically. In regards to the patient have a permanent guardianship versus the temporary guardianship, per Marta Wren this process would more than likely occur when the patient is out of the hospital and in a Custodial facility environment where this could be assessed. The patient also has a right to a trial for the permanent guardianship if she is not in agreement that she needs one.
[2021-03-26] MEDS: Donepezil HCl 5 MG TABLET PO (20:37)
[2021-03-26] MEDS: Atorvastatin Calcium 80 MG TABLET PO (20:37)
[2021-03-26] MEDS: Doxazosin Mesylate 2 MG TABLET 6 MG PO (20:39)
[2021-03-27] MEDS: Levothyroxine Sodium 75 MCG TABLET PO (06:43)
[2021-03-27] MEDS: Isosorbide Mononitrate 30 MG TAB.ER.24H PO (07:33)
[2021-03-27 07:34] VITALS: BP 143/67; PULSE 58; RESP 17; TEMP 36.2; O2SAT 96
[2021-03-27] MEDS: NIFEdipine ER 60 MG TAB.ER.24 120 MG PO (07:34)
[2021-03-27] MEDS: hydrALAZINE HCl 50 MG TABLET PO ×3 (07:34→20:15)
[2021-03-27] MEDS: Ferrous Sulfate 324 MG TABLET.DR PO (07:34)
[2021-03-27] MEDS: Aspirin 81 MG TAB.CHEW PO (07:34)
[2021-03-27] MEDS: Losartan Potassium 50 MG TABLET 100 MG PO (07:34)
[2021-03-27] MEDS: Spironolactone 25 MG TABLET 50 MG PO ×2 (07:34→17:05)
[2021-03-27] MEDS: glipiZIDE 5 MG TABLET 2.5 MG PO ×2 (07:35→16:14)
--- NOTE | 2021-03-27 09:01 | PM.PNNEP ---
Subjective Subjective Date of Service: 03/27/21 Principal diagnosis: htn Interval history: Follow up hypertensive urgency Physical Exam Vital Signs: Vital Signs: Last Vital Signs Temp 97.1 F 03/27/21 07:34 Pulse 58 03/27/21 07:34 Resp 17 03/27/21 07:34 BP 143/67 H 03/27/21 07:34 Pulse Ox 96 03/27/21 07:34 Body Mass Index 20.1 Const: Other: General: AO X 3, no acute distress Resp: CTA bilateral CVS: S1,S2,RRR GI: +BS, NT, no distention Skin: No rash Neuro: motor grossly intact Psych: depressed compare to usual General: cooperative, healthy appearing, comfortable, no acute distress, well developed, alert, awake and Physically active; No acute distress Nutritional Appearance: average body habitus, well nourished and thin Orientation/consciousness: oriented to person, oriented to place and patient oriented x3 Limitations: no limitations and other limitations (Question if the patient remembers events correctly) HENMT: Head: Yes normal to inspection, Yes normocephalic and Yes atraumatic Ears: hearing grossly normal bilaterally and external ears normal General nose exam: Normal external nose present Face and sinus: Yes normal facial exam Mouth: Normal oral and palatal mucosa present and oropharynx normal Throat: Yes posterior oropharynx normal Eyes: General: appearance normal, both eyes and all related structures Visual Adam: normal visual adam by confrontation Alignment and Position: alignment normal Periorbital: periorbital findings normal Eyelids: Yes eyelids normal Conjunctivae: conjunctivae normal Sclerae: sclerae normal Corneas: corneas normal Pupils: Equal, round and reactive pupils present and Pupil accommodation reflex normal EOM: EOMs intact bilaterally Direct Ophthalmoscopy: normal light reflex Neck: Neck: Yes normal visual inspection, Yes full ROM, Yes no lymphadenopathy, Yes no meningeal signs, Yes trachea midline and Yes supple Thyroid: Thyroid normal Carotids: normal carotid upstroke and bounding pulses Chest: Chest palpation & inspection: normal inspection of the chest and normal palpation of entire chest wall Resp: Effort & Inspection: normal respiratory effort, able to speak in complete sentences and no respiratory distress Auscultation: clear to auscultation bilaterally, no crackles, no wheezes and diminished lung sounds Cardio: Jugular venous distension: no JVD Palpation: normal PMI Rate: regular rate Rhythm: regular rhythm Heart sounds: S1 normal heart sound present, S2 normal heart sound present, no gallops, Murmur heart sound present systolic early, III/ and at the right sternal border and no rubs Peripheral pulses: Peripheral pulses 2+ throughout GI: Inspection: Yes normal to inspection Palpation (GI): Soft to palpation, nontender, no guarding, not rigid and No hepatosplenomegaly present Percussion: Yes normal to percussion Auscultation: normal bowel sounds Rectal Exam - Female: deferred : General: Yes no CVA tenderness Back/Spine/Pelvis: Back: no CVA tenderness Cervical Spine: normal cervical lordosis and cervical ROM normal Thoracic/Lumbar Spine: thoracic and lumbar spine normal to inspection Skin: General skin exam: no rashes or lesions noted Lesions: no lesions Rashes: no rashes Wounds: no wounds Neuro: General: oriented to person, oriented to place, patient oriented x3, tone normal, moves all extremities, Normal light touch and pain sensation, no meningeal signs, no focal motor deficits, CN's II-XI intact bilaterally, normal sensation to monofilament and deep tendon reflexes 2+ bilaterally Cranial nerves: Yes CN's II-XII intact bilaterally, Yes Equal, round and reactive pupils present, Yes Bilaterally intact EOM present, Yes Nystagmus not present, Yes Normal facial strength present, Yes Midline tongue present, Yes Normal gag reflex present, Yes Symmetric palate elevation present, Yes Normal hearing present and Yes Ability to bilaterally rotate head present Cognition (Neuro): normal cognition and abnormal cognition Speech: Abnormal speech present and Other speech findings present (Neuro) Motor exam (neuro): 5/5 motor strength present throughout, Pronator motor function not present, no tremor noted, no asterixis, Motor fasciculations not present, Normal motor muscle tone present throughout and Motor abnormalities not present Sensory Exam: Bilaterally intact graphesthesia and Sensory deficit (Neuro) Deep tendon reflexes (DTR's): Right triceps reflex intensity grade: 2+, Left triceps reflex intensity grade: 2+, Rt Biceps (C5, C6): 2+, Left biceps reflex intensity grade: 2+, Right brachioradialis reflex intensity grade: 2+, Left brachioradialis reflex intensity grade: 2+, Right patellar reflex intensity grade: 2+, Left patellar reflex intensity grade: 2+, Right ankle reflex intensity grade: 2+ and Left ankle reflex intensity grade: 2+ Plantar Reflex Responses: downgoing: right, left and bilateral Coordination: [id number] test normal and [id number] test normal Pupils: Normal pupillary reactivity/response: bilateral Extrem: General: Yes normal to inspection, Yes full ROM, Yes normal exam except as noted, Yes no clubbing, cyanosis or edema and Yes no pedal edema Psych: Appearance: grossly normal and well kempt Mental Status: mental status grossly normal Speech and movement: Normal speech and movement present and Clear speech present Affect: normal affect Attitude: cooperative Thought process: Normal thought process present Thought content: Normal thought content present Insight: Limited insight present (Psych) and Other insight findings present (Psych) (Patient may not be recalling events correctly based discussion with [facility]) Objective Data Labs CBC & Chem 7: 03/19/21 10:14 03/16/21 06:09 Microbiology Microbiology Results: Microbiology 11/24/20 08:18 Stool Stool Culture - Final 09/21/20 Unknown Urine clean catch - Clean Catch Midstream Urine Culture - Final No growth. Procedures Date of Service Date of Service: 03/27/21 Assessment & Plan Assessment and plan (1) Vascular dementia without behavioral disturbance: Status: Acute Assessment and Plan: Mrs. Bradley is a 85 year-old woman with hx of HTN, DM, initially brought to [facility] after fall, admitted for high troponin and further cardiac evaluation. Concerns have been raised as to Mrs. Bradley's ability to care for her self due to underlying neurocognitive impairments we are seeing for HTN Assessment and Plan: adjust BP meds. BP controlled would d/c hydralazine and start amlodipine 10 mg Time Spent With Patient Time: Total time spent is greater than 50% in coordination of care (as documented) at patient's floor/unit and/or counseling patient: Progress Note: Quality Stroke Does the patient have a stroke diagnosis?: No
--- NOTE | 2021-03-27 09:11 | P.PNNP_ITS ---
Subjective Subjective Date of Service: 03/27/21 Principal diagnosis: htn Interval history: Follow up hypertensive urgency Physical Exam Vital Signs: Vital Signs: Last Vital Signs Temp 97.1 F 03/27/21 07:34 Pulse 58 03/27/21 07:34 Resp 17 03/27/21 07:34 BP 143/67 H 03/27/21 07:34 Pulse Ox 96 03/27/21 07:34 Body Mass Index 20.1 Const: Other: General: AO X 3, no acute distress Resp: CTA bilateral CVS: S1,S2,RRR GI: +BS, NT, no distention Skin: No rash Neuro: motor grossly intact Psych: depressed compare to usual General: cooperative, healthy appearing, comfortable, no acute distress, well developed, alert, awake and Physically active; No acute distress Nutritional Appearance: average body habitus, well nourished and thin Orientation/c onsciousness: oriented to person, oriented to place and patient oriented x3 Limitations: no limitations and other limitations (Question if the patient remembers events correctly) HENMT: Head: Yes normal to inspection, Yes normocephalic and Yes atraumatic Ears: hearing grossly normal bilaterally and external ears normal General nose exam: Normal external nose present Face and sinus: Yes normal facial exam Mouth: Normal oral and palatal mucosa present and oropharynx normal Throat: Yes posterior oropharynx normal Eyes: General: appearance normal, both eyes and all related structures Visual Adam: normal visual adam by confrontation Alignment and Position: alignment normal Periorbital: periorbital findings normal Eyelids: Yes eyelids normal Conjunctivae: conjunctivae normal Sclerae: sclerae normal Corneas: corneas normal Pupils: Equal, round and reactive pupils present and Pupil accommodation reflex normal EOM: EOMs intact bilaterally Direct Ophthalmoscopy: normal light reflex Neck: Neck: Yes normal visual inspection, Yes full ROM, Yes no lymphadenopathy, Yes no meningeal signs, Yes trachea midline and Yes supple Thyroid: Thyroid normal Carotids: normal carotid upstroke and bounding pulses Chest: Chest palpation & inspection: normal inspection of the chest and normal palpation of entire chest wall Resp: Effort & Inspection: normal respiratory effort, able to speak in complete sentences and no respiratory distress Auscultation: clear to auscultation bilaterally, no crackles, no wheezes and diminished lung sounds Cardio: Jugular venous distension: no JVD Palpation: normal PMI Rate: regular rate Rhythm: regular rhythm Heart sounds: S1 normal heart sound present, S2 normal heart sound present, no gallops, Murmur heart sound present systolic early, III/ and at the right sternal border and no rubs Peripheral pulses: Peripheral pulses 2+ throughout GI: Inspection: Yes normal to inspection Palpation (GI): Soft to palpation, nontender, no guarding, not rigid and No hepatosplenomegaly present P ercussion: Yes normal to percussion Auscultation: normal bowel sounds Rectal Exam - Female: deferred : General: Yes no CVA tenderness Back/Spine/Pelvis: Back: no CVA tenderness Cervical Spine: normal cervical lordosis and cervical ROM normal Thoracic/Lumbar Spine: thoracic and lumbar spine normal to inspection Skin: General skin exam: no rashes or lesions noted Lesions: no lesions Rashes: no rashes Wounds: no wounds Neuro: General: oriented to person, oriented to place, patient oriented x3, tone normal, moves all extremities, Normal light touch and pain sensation, no meningeal signs, no focal motor deficits, CN's II-XI intact bilaterally, normal sensation to monofilament and deep tendon reflexes 2+ bilaterally Cranial nerves: Yes CN's II-XII intact bilaterally, Yes Equal, round and reactive pupils present, Yes Bilaterally intact EOM present, Yes Nystagmus not present, Yes Normal facial strength present, Yes Midline tongue present, Yes Normal gag reflex present, Yes Symmetric palate elevation present, Yes Normal hearing present and Yes Ability to bilaterally rotate head present Cognition (Neuro): normal cognition and abnormal cognition Speech: Abnormal speech present and Other speech findings present (Neuro) Motor exam (neuro): 5/5 motor strength present throughout, Pronator motor function not present, no tremor noted, no asterixis, Motor fasciculations not present, Normal motor muscle tone present throughout and Motor abnormalities not present Sensory Exam: Bilaterally intact graphesthesia and Sensory deficit (Neuro) Deep tendon reflexes (DTR's): Right triceps reflex intensity grade: 2+, Left triceps reflex intensity grade: 2+, Rt Biceps (C5, C6): 2+, Left biceps reflex intensity grade: 2+, Right brachioradialis reflex intensity grade: 2+, Left brachioradialis reflex intensity grade: 2+, Right patellar reflex intensity grade: 2+, Left patellar reflex intensity grade: 2+, Right ankle reflex intensity grade: 2+ and Left ankle reflex intensity grade: 2+ Plantar Reflex Responses: downgoing: right, left and bilateral Coordination: [id number] test normal and [id number] test normal Pupils: Normal pupillary reactivity/response: bilateral Extrem: General: Yes normal to inspection, Yes full ROM, Yes normal exam except as noted, Yes no clubbing, cyanosis or edema and Yes no pedal edema Psych: Appearance: grossly normal and well kempt Mental Status: mental status grossly normal Speech and movement: Normal speech and movement present and Clear speech present Affect: normal affect Attitude: cooperative Thought process: Normal thought process present Thought content: Normal thought content present Insight: Limited insight present (Psych) and Other insight findings present (Psych) (Patient may not be recalling events correctly based discussion with [facility]) Objective Data Labs CBC & Chem 7: 03/19/21 10:14 03/16/21 06:09 Microbiology Microbiology Results: Microbiology 11/24/20 08:18 Stool Stool Culture - Final 09/21/20 Unknown Urine clean catch - Clean Catch Midstream Urine Culture - Final No growth. Procedures Date of Service Date of Service: 03/27/21 Assessment & Plan Assessment and plan (1) Vascular dementia without behavioral disturbance: Status: Acute Assessment and Plan: Mrs. Bradley is a 85 year-old woman with hx of HTN, DM, initially brought to [facility] after [place], admitted for high troponin and further cardiac evaluation. Concerns have been raised as to Mrs. Bradley's ability to care for her self due to underlying neurocognitive impairments we are seeing for HTN Assessment and Plan: adjust BP meds. BP controlled with increased spironolactone would d/c hydralazine Time Spent With Patient Time: Total time spent is greater than 50% in coordination of care (as documented) at patient's floor/unit and/or counseling patient: Progress Note: Quality Stroke Does the patient have a stroke diagnosis?: No
[2021-03-27 10:09] LABS: Anion Gap 13 (12-20); Blood Urea Nitrogen 38 mg/dL (9-16); Calcium 9.5 mg/dL (8.4-10.2); Carbon Dioxide 26 mmol/L (22-29); Chloride 106 mmol/L (96-108); Creatinine Clr Calc Pharmacy 23.2; Estimated Glomerular Filt Rate 33; Glucose Random 334 mg/dL (60-115); Potassium 4.1 mmol/L (3.3-5.1); Sodium 141 mmol/L (135-145)
[2021-03-27] MEDS: cloNIDine 0.1 MG PATCH.TDWK TRANSDERMA (10:41)
--- NOTE | 2021-03-27 11:18 | P.PNIM_ITS ---
Progress Note: A&P (1) Vascular dementia without behavioral disturbance: Status: Acute Assessment and Plan: 85yo F with HTN, HLD, DM2, hypothyroidism, CAD s/p PCI. initially admitted with falls, elevated troponin; disposition complicated by cognitive impairment requiring guardianship on 02/26/21 developed hypoxia, dyspnea -> CHF exacerbation with NSTEMI on 03/02/21 had 2 episodes of junctional bradycardia/sinus pause associated with BM and vomiting # Resistant HTN. Better last 2 days Followed closely by nephrology Renal artery stenosis not seen on CT angio Nifedipine 120 daily Imdur 30 daily Clonodine 0.1mg patch q weekly (pulse as been greater than 55 during vitals, not on tele) Losartan 100 Hydralazine 50 TID Aldactone 50 BID Dozazosin 6mg hs # acute grief reaction/depression emotional today asking why did they take my house redirected CARE team following Covid vaccination #1 on 03/23/21 # cognitive impairment evaluated by psychiatry. 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 No further episodes - likely vasovagal; Cardiology concurs.? 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 low risk ambulation Full code dispo - waiting placement/guardianship Attending Dr. Diaz (2) HTN (hypertension): Status: Acute Subjective Subjective Date of Service: 03/27/21 Interval History: Follow up hypertensive urgency blood pressure slowly improving feeling sad Physical Exam Vital Signs: Vital Signs: Last Vital Signs Temp 97.1 F 03/27/21 07:34 Pulse 58 03/27/21 07:34 Resp 17 03/27/21 07:34 BP 143/67 H 03/27/21 07:34 Pulse Ox 96 03/27/21 07:34 Body Mass Index 20.1 Appearing in no acute distress lung sounds are clear to auscultation heart regular rate rhythm, clear S1, S2 positive bowel sounds, abdomen is soft, nontender neuro patient is alert, no focal deficits Objective Data Current Medications Generic Name Dose Route Start Last Admin Trade Name Sachaq PRN Reason Stop Dose Admin Aspirin 81 mg 02/28/21 09:00 03/27/21 07:34 Aspirin 81 Mg Tab.Chew PO 81 mg DAILY RAGHAVENDRA Administration Atorvastatin Calcium 80 mg 02/27/21 08:00 03/26/21 20:37 Atorvastatin Calcium 80 Mg Tablet PO 80 mg BEDTIME RAGHAVENDRA Administration Clonidine 0.1 mg 03/13/21 09:00 03/27/21 10:41 Clonidine 0.1 Mg Patch.Tdwk TRANSDERMA 0.1 mg Tu@0900 RAGHAVENDRA Administration Protocol Donepezil HCl 5 mg 03/26/21 21:00 03/26/21 20:37 Donepezil Hcl 5 Mg Tablet PO 5 mg BEDTIME RAGHAVENDRA Administration Doxazosin Mesylate 6 mg 03/25/21 21:00 03/26/21 20:39 Doxazosin Mesylate 2 Mg Tablet PO 6 mg BEDTIME RAGHAVENDRA Administration Protocol Ferrous Sulfate 324 mg 02/28/21 09:00 03/27/21 07:34 Ferrous Sulfate 324 Mg Tablet.Dr PO 324 mg DAILY RAGHAVENDRA Administration Glipizide 2.5 mg 02/24/21 17:00 03/27/21 07:35 Glipizide 5 Mg Tablet PO 2.5 mg BIDWM RAGHAVENDRA Administration Guaifenesin/Dextromethorphan 5 ml 03/02/21 23:01 Guaifenesin Dm 100/10/5 Ml 5 Ml Syrup PO Q6H PRN cough Hydralazine HCl 50 mg 03/08/21 15:00 03/27/21 07:34 Hydralazine Hcl 50 Mg Tablet PO 50 mg TID RAGHAVENDRA Administration Protocol Isosorbide Mononitrate 30 mg 03/04/21 14:30 03/27/21 07:33 Isosorbide Mononitrate 30 Mg Tab.Er.24h PO 30 mg DAILY RAGHAVENDRA Administration Protocol Levothyroxine Sodium 75 mcg 01/13/21 09:00 03/27/21 06:43 Levothyroxine Sodium 75 Mcg Tablet PO 75 mcg DAILY@0600 [facility] Administration Losartan Potassium 100 mg 03/08/21 09:00 03/27/21 07:34 Losartan Potassium 50 Mg Tablet PO 100 mg DAILY [facility] Administration Protocol Nifedipine 120 mg 02/13/21 09:00 03/27/21 07:34 Nifedipine Er 60 Mg Tab.Er.24 PO 120 mg DAILY RAGHAVENDRA Administration Protocol Ondansetron HCl 4 mg 03/02/21 14:26 03/02/21 12:30 Ondansetron Hcl 4 Mg/2 Ml Vial IVPUSH 4 mg Q4H PRN Administration nausea/vomiting Spironolactone 50 mg 03/26/21 18:00 03/27/21 07:34 Spironolactone 25 Mg Tablet PO 50 mg BID@0900,1800 [facility] Administration Protocol Labs CBC & Chem 7: 03/19/21 10:14 03/27/21 09:29 Labs: Laboratory Results - last 24 hr 03/27/21 09:29 Anion Gap 13 Estim Creat Clear Calc 23.2 Estimated GFR 33 Random Glucose 334 H D Calcium 9.5 Microbiology Microbiology Results: Microbiology 11/24/20 08:18 Stool Stool Culture - Final 09/21/20 Unknown Urine clean catch - Clean Catch Midstream Urine Culture - Final No growth. Quality Stroke Does the patient have a stroke diagnosis?: No VTE Prior VTE?: No VTE Risk Level:: Medical - moderate - high VTE Device Contraindication: N/A - Device Ordered VTE Drug Contraindication: N/A - Med Ordered
[2021-03-27 14:41] LABS: Total Protein Urine Random 126 mg/dL (<12)
[2021-03-27 15:11] LABS: Glucose Urine UA NEG (NEG); Leukocyte Esterase Urine 3+ (NEG); Nitrite Urine NEG (NEG); Specific Gravity - Urine 1.025 (1.005-1.025); UACC Culture Trigger YES; Urine Blood NEG (NEG); Urine Ketones NEG (NEG); Urine Protein 2+ MG/DL (NEG-TRACE)
[2021-03-27 15:15] LABS: Creatinine Urine 85.16 mg/dL; Microalbum/Creatinine Ratio Ur 1059.1 ug/mg cr
[2021-03-27 15:16] LABS: Appearance Urine CLOUDY; Color Urine YELLOW
[2021-03-27 15:23] LABS: Bacteria Urine 3+ /LPF; RBC Urine TNTC /HPF (0); WBC Clumps Urine NOTED; WBC Urine TNTC /HPF (0-4)
[2021-03-27 15:28] VITALS: BP 149/67; PULSE 61; RESP 16; TEMP 36; O2SAT 96
[2021-03-27] MEDS: Doxazosin Mesylate 2 MG TABLET 6 MG PO (20:14)
[2021-03-27] MEDS: Donepezil HCl 5 MG TABLET PO (20:14)
[2021-03-27] MEDS: Atorvastatin Calcium 80 MG TABLET PO (20:15)
[2021-03-27 23:42] VITALS: BP 168/60; PULSE 59; RESP 16; TEMP 37.1; O2SAT 95
[2021-03-28] MEDS: Levothyroxine Sodium 75 MCG TABLET PO (05:31)
[2021-03-28 07:10] LABS: Anion Gap 12 (12-20); Blood Urea Nitrogen 41 mg/dL (9-16); Carbon Dioxide 24 mmol/L (22-29); Chloride 110 mmol/L (96-108); Creatinine Clr Calc Pharmacy 26.4; Estimated Glomerular Filt Rate 39; Glucose Random 144 mg/dL (60-115); Sodium 142 mmol/L (135-145)
[2021-03-28 07:23] VITALS: BP 157/85; PULSE 61; RESP 16; TEMP 36.9; O2SAT 96
[2021-03-28] MEDS: hydrALAZINE HCl 50 MG TABLET PO ×3 (07:38→21:13)
[2021-03-28] MEDS: Spironolactone 25 MG TABLET 50 MG PO ×2 (07:38→17:22)
[2021-03-28] MEDS: Ferrous Sulfate 324 MG TABLET.DR PO (07:38)
[2021-03-28] MEDS: glipiZIDE 5 MG TABLET 2.5 MG PO ×2 (07:39→16:22)
[2021-03-28] MEDS: Aspirin 81 MG TAB.CHEW PO (07:39)
[2021-03-28] MEDS: NIFEdipine ER 60 MG TAB.ER.24 120 MG PO (07:39)
[2021-03-28] MEDS: Isosorbide Mononitrate 30 MG TAB.ER.24H PO (07:39)
[2021-03-28] MEDS: Losartan Potassium 50 MG TABLET 100 MG PO (07:39)
[2021-03-28 07:41] LABS: Glucose, Whole Blood 142 mg/dL (60-115)
--- NOTE | 2021-03-28 07:56 | P.PNNP_ITS ---
Subjective Subjective Date of Service: 03/28/21 Principal diagnosis: htn Interval history: Follow up hypertensive urgency blood pressure slowly improving feeling sad Physical Exam Vital Signs: Vital Signs: Last Vital Signs Temp 98.4 F 03/28/21 07:23 Pulse 61 03/28/21 07:23 Resp 16 03/28/21 07:23 BP 157/85 H 03/28/21 07:23 Pulse Ox 96 03/28/21 07:23 Body Mass Index 20.1 Const: Other: General: AO X 3, no acute distress Resp: CTA bilateral CVS: S1,S2,RRR GI: +BS, NT, no distention Skin: No rash Neuro: motor grossly intact Psych: depressed compare to usual General: cooperative, healthy appearing, comfortable, no acute distress, well developed, alert, awake and Physically active; No acute distress Nutritional Appearance: average body habitus, well nourished and thin Orientation/consciousness: oriented to person, oriented to place and patient oriented x3 Limitations: no limitations and other limitations (Question if the patient remembers events correctly) HENMT: Head: Yes normal to inspection, Yes normocephalic and Yes atraumatic Ears: hearing grossly normal bilaterally and external ears normal General nose exam: Normal external nose present Face and sinus: Yes normal facial exam Mouth: Normal oral and palatal mucosa present and oropharynx normal Throat: Yes posterior oropharynx normal Eyes: General: appearance normal, both eyes and all related structures Visual Adam: normal visual adam by confrontation Alignment and Position: alignment normal Periorbital: periorbital findings normal Eyelids: Yes eyelids normal Conjunctivae: conjunctivae normal Sclerae: sclerae normal Corneas: corneas normal Pupils: Equal, round and reactive pupils present and Pupil accommodation reflex normal EOM: EOMs intact bilaterally Direct Ophthalmoscopy: normal light reflex Neck: Neck: Yes normal visual inspection, Yes full ROM, Yes no lymphadenopathy, Yes no meningeal signs, Yes trachea midline and Yes supple Thyroid: Thyroid normal Carotids: normal carotid upstroke and bounding pulses Chest: Chest palpation & inspection: normal inspection of the chest and normal palpation of entire chest wall Resp: Effort & Inspection: normal respiratory effort, able to speak in c omplete sentences and no respiratory distress Auscultation: clear to ausc ultation bilaterally, no crackles, no wheezes and diminished lung sounds Cardio: Jugular venous distension: no JVD Palpation: normal PMI Rate: regular rate Rhythm: regular rhythm Heart sounds: S1 normal heart sound present, S2 normal heart sound present, no gallops, Murmur heart sound present systolic early, III/ and at the right sternal border and no rubs Peripheral pulses: Peripheral pulses 2+ throughout GI: Inspection: Yes normal to inspection Palpation (GI): Soft to palpation, nontender, no guarding, not rigid and No hepatosplenomegaly present Percussion: Yes normal to percussion Auscultation: normal bowel sounds Rectal Exam - Female: deferred : General: Yes no CVA tenderness Back/Spine/Pelvis: Back: no CVA tenderness Cervical Spine: normal cervical lordosis and cervical ROM normal Thoracic/Lumbar Spine: thoracic and lumbar spine normal to inspection Skin: General skin exam: no rashes or lesions noted Lesions: no lesions Rashes: no rashes Wounds: no wounds Neuro: General: oriented to person, oriented to place, patient oriented x3, tone normal, moves all extremities, Normal light touch and pain sensation, no meningeal signs, no focal motor deficits, CN's II-XI intact bilaterally, normal sensation to monofilament and deep tendon reflexes 2+ bilaterally Cranial nerves: Yes CN's II-XII intact bilaterally, Yes Equal, round and reactive pupils present, Yes Bilaterally intact EOM present, Yes Nystagmus not present, Yes Normal facial strength present, Yes Midline tongue present, Yes Normal gag reflex present, Yes Symmetric palate elevation present, Yes Normal hearing present and Yes Ability to bilaterally rotate head present Cognition (Neuro): normal cognition and abnormal cognition Speech: Abnormal speech present and Other speech findings present (Neuro) Motor exam (neuro): 5/5 motor strength present throughout, Pronator motor function not present, no tremor noted, no asterixis, Motor fasciculations not present, Normal motor muscle tone present throughout and Motor abnormalities not present Sensory Exam: Bilaterally intact graphesthesia and Sensory deficit (Neuro) Deep tendon reflexes (DTR's): Right triceps reflex intensity grade: 2+, Left triceps reflex intensity grade: 2+, Rt Biceps (C5, C6): 2+, Left biceps reflex intensity grade: 2+, Right brachioradialis reflex intensity grade: 2+, Left brachioradialis reflex intensity grade: 2+, Right patellar reflex intensity grade: 2+, Left patellar r eflex intensity grade: 2+, Right ankle reflex intensity grade: 2+ and Left ankle reflex intensity grade: 2+ Plantar Reflex Responses: downgoing: right, left and bilateral Coordination: [id number] test normal and [id number] test normal Pupils: Normal pupillary reactivity/response: bilateral Extrem: General: Yes normal to inspection, Yes full ROM, Yes normal exam except as noted, Yes no clubbing, cyanosis or edema and Yes no pedal edema Psych: Appearance: grossly normal and well kempt Mental Status: mental status grossly normal Speech and movement: Normal speech and movement present and Clear speech present Affect: normal affect Attitude: cooperative Thought process: Normal thought process present Thought content: Normal thought content present Insight: Limited insight present (Psych) and Other insight findings present (Psych) (Patient may not be recalling events correctly based discussion with [facility]) Objective Data Labs CBC & Chem 7: 03/19/21 10:14 03/28/21 06:15 Labs: Laboratory Results - last 24 hr 03/27/21 03/27/21 03/27/21 09:29 13:45 Unknown Sodium 141 Potassium 4.1 Chloride 106 Carbon Dioxide 26 Anion Gap 13 BUN 38 H Creatinine 1.49 H Estim Creat Clear Calc 23.2 Estimated GFR 33 POC Glucose Random Glucose 334 H D Calcium 9.5 Urine Color YELLOW Urine Appearance CLOUDY Urine pH 6.0 Ur Specific [place] 1.025 Urine Protein 2+ H Urine Glucose (UA) NEG Urine Ketones NEG Urine Blood NEG Urine Nitrite NEG Ur Leukocyte Esterase 3+ H Urine RBC TNTC H Urine WBC TNTC H Urine WBC Clumps NOTED Ur Squamous Epith Cells NONE Urine Bacteria 3+ U Random Total Protein Urine Creatinine 85.16 Urine Microalbumin 902.0 Microalb/Creat Ratio 1059.1 03/27/21 03/28/21 03/28/21 Unknown 06:15 07:22 Sodium 142 Potassium 4.0 Chloride 110 H Carbon Dioxide 24 Anion Gap 12 BUN 41 H Creatinine 1.31 Estim Creat Clear Calc 26.4 Estimated GFR 39 POC Glucose 142 H Random Glucose 144 H D Calcium 9.0 Urine Color Urine Appearance Urine pH Ur Specific [place] Urine Protein Urine Glucose (UA) Urine Ketones Urine Blood Urine Nitrite Ur Leukocyte Esterase Urine RBC Urine WBC Urine WBC Clumps Ur Squamous Epith Cells Urine Bacteria U Random Total Protein 126 H Urine Creatinine Urine Microalbumin Microalb/Creat Ratio Microbiology Microbiology Results: Microbiology 11/24/20 08:18 Stool Stool Culture - Final 09/21/20 Unknown Urine clean catch - Clean Catch Midstream Urine Culture - Final No growth. Procedures Date of Service Date of Service: 03/28/21 Assessment & Plan Assessment and plan (1) Vascular dementia without behavioral disturbance: Status: Acute Assessment and Plan: 85yo F with HTN, HLD, DM2, hypothyroidism, CAD s/p PCI. initially admitted with falls, elevated troponin; disposition complicated by cognitive impairment r equiring guardianship on 02/26/21 developed hypoxia, dyspnea -> CHF exacerbation with NSTEMI on 03/02/21 had 2 episodes of junctional bradycardia/sinus pause associated with BM and vomiting # Resistant HTN. 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
--- NOTE | 2021-03-28 10:26 | P.PNIM_ITS ---
Progress Note: A&P (1) HTN (hypertension): Status: Acute <Winifred Douglas NP - Last Filed: 03/28/21 10:29> Assessment and Plan: 85yo F with HTN, HLD, DM2, hypothyroidism, CAD s/p PCI. initially admitted with falls, elevated troponin; disposition complicated by cognitive impairment requiring guardianship on 02/26/21 developed hypoxia, dyspnea -> CHF exacerbation with NSTEMI on 03/02/21 had 2 episodes of junctional bradycardia/sinus pause associated with BM and vomiting # Resistant HTN. improving Followed closely by nephrology Renal artery stenosis not seen on CT angio Nifedipine 120 daily Imdur 30 daily Clonodine 0.1mg patch q weekly (pulse as been greater than 55 during vitals, not on tele) Losartan 100 Hydralazine 50 TID Aldactone 50 BID Dozazosin 6mg hs # acute grief reaction/depression emotional today asking why did they take my house redirected CARE team following Covid vaccination #1 on 03/23/21 # cognitive impairment evaluated by psychiatry. 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 No further episodes - likely vasovagal; Cardiology concurs.? 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 low risk ambulation Full code dispo - waiting placement/guardianship Attending Dr. Diaz <Winifred Douglas NP - Last Filed: 03/28/21 10:29> Subjective Subjective Date of Service: 03/28/21 <Winifred Douglas NP - Last Filed: 03/28/21 10:29> 03/28/21 <Adolfo Diaz MD - Last Filed: 03/28/21 16:12> Interval History: Follow-up hypertensive urgency Blood pressure improving <Winifred Douglas NP - Last Filed: 03/28/21 10:29> Physical Exam Vital Signs: Vital Signs: Last Vital Signs Temp 98.4 F 03/28/21 07:23 Pulse 61 03/28/21 07:23 Resp 16 03/28/21 07:23 BP 157/85 H 03/28/21 07:23 Pulse Ox 96 03/28/21 07:23 Body Mass Index 20.1 <Winifred Douglas NP - Last Filed: 03/28/21 10:29> Appearing in no acute distress lung sounds are clear to auscultation heart regular rate rhythm, clear S1, S2 positive bowel sounds, abdomen is soft, nontender neuro patient is alert x3, no focal deficits <Winifred Douglas NP - Last Filed: 03/28/21 10:29> Objective Data Current Medications Generic Name Dose Route Start Last Admin Trade Name Freq PRN Reason Stop Dose Admin Aspirin 81 mg 02/28/21 09:00 03/28/21 07:39 Aspirin 81 Mg Tab.Chew PO 81 mg DAILY RAGHAVENDRA Administration Atorvastatin Calcium 80 mg 02/27/21 08:00 03/27/21 20:15 Atorvastatin Calcium 80 Mg Tablet PO 80 mg BEDTIME RAGHAVENDRA Administration Clonidine 0.1 mg 03/13/21 09:00 03/27/21 10:41 Clonidine 0.1 Mg Patch.Tdwk TRANSDERMA 0.1 mg Tu@0900 RAGHAVENDRA Administration Protocol Donepezil HCl 5 mg 03/26/21 21:00 03/27/21 20:14 Donepezil Hcl 5 Mg Tablet PO 5 mg BEDTIME RAGHAVENDRA Administration Doxazosin Mesylate 6 mg 03/25/21 21:00 03/27/21 20:14 Doxazosin Mesylate 2 Mg Tablet PO 6 mg BEDTIME RAGHAVENDRA Administration Protocol Ferrous Sulfate 324 mg 02/28/21 09:00 03/28/21 07:38 Ferrous Sulfate 324 Mg Tablet.Dr PO 324 mg DAILY RAGHAVENDRA Administration Glipizide 2.5 mg 02/24/21 17:00 03/28/21 07:39 Glipizide 5 Mg Tablet PO 2.5 mg BIDWM RAGHAVENDRA Administration Guaifenesin/Dextromethorphan 5 ml 03/02/21 23:01 Guaifenesin Dm 100/10/5 Ml 5 Ml Syrup PO Q6H PRN cough Hydralazine HCl 50 mg 03/08/21 15:00 03/28/21 07:38 Hydralazine Hcl 50 Mg Tablet PO 50 mg TID [facility] Administration Protocol Isosorbide Mononitrate 30 mg 03/04/21 14:30 03/28/21 07:39 Isosorbide Mononitrate 30 Mg Tab.Er.24h PO 30 mg DAILY [facility] Administration Protocol Levothyroxine Sodium 75 mcg 01/13/21 09:00 03/28/21 05:31 Levothyroxine Sodium 75 Mcg Tablet PO 75 mcg DAILY@0600 [facility] Administration Losartan Potassium 100 mg 03/08/21 09:00 03/28/21 07:39 Losartan Potassium 50 Mg Tablet PO 100 mg DAILY [facility] Administration Protocol Nifedipine 120 mg 02/13/21 09:00 03/28/21 07:39 Nifedipine Er 60 Mg Tab.Er.24 PO 120 mg DAILY [facility] Administration Protocol Ondansetron HCl 4 mg 03/02/21 14:26 03/02/21 12:30 Ondansetron Hcl 4 Mg/2 Ml Vial IVPUSH 4 mg Q4H PRN Administration nausea/vomiting Spironolactone 50 mg 03/26/21 18:00 03/28/21 07:38 Spironolactone 25 Mg Tablet PO 50 mg BID@0900,1800 [facility] Administration Protocol <Winifred Douglas NP - Last Filed: 03/28/21 10:29> Labs CBC & Chem 7: : 03/19/21 10:14 03/28/21 06:15 <Winifred Douglas NP - Last Filed: 03/28/21 10:29> Labs: Laboratory Results - last 24 hr 03/27/21 03/27/21 03/27/21 13:45 Unknown Unknown Anion Gap Estim Creat Clear Calc Estimated GFR POC Glucose Random Glucose Calcium Urine Color YELLOW Urine Appearance CLOUDY Urine pH 6.0 Ur Specific [place] 1.025 Urine Protein 2+ H Urine Glucose (UA) NEG Urine Ketones NEG Urine Blood NEG Urine Nitrite NEG Ur Leukocyte Esterase 3+ H Urine RBC TNTC H Urine WBC TNTC H Urine WBC Clumps NOTED Ur Squamous Epith Cells NONE Urine Bacteria 3+ U Random Total Protein 126 H Urine Creatinine 85.16 Urine Microalbumin 902.0 Microalb/Creat Ratio 1059.1 03/28/21 03/28/21 06:15 07:22 Anion Gap 12 Estim Creat Clear Calc 26.4 Estimated GFR 39 POC Glucose 142 H Random Glucose 144 H D Calcium 9.0 Urine Color Urine Appearance Urine pH Ur Specific [place] Urine Protein Urine Glucose (UA) Urine Ketones Urine Blood Urine Nitrite Ur Leukocyte Esterase Urine RBC Urine WBC Urine WBC Clumps Ur Squamous Epith Cells Urine Bacteria U Random Total Protein Urine Creatinine Urine Microalbumin Microalb/Creat Ratio <Winifred Douglas NP - Last Filed: 03/28/21 10:29> Microbiology Microbiology Results: Microbiology 11/24/20 08:18 Stool Stool Culture - Final 09/21/20 Unknown Urine clean catch - Clean Catch Midstream Urine Culture - Final No growth. <Winifred Douglas NP - Last Filed: 03/28/21 10:29> Quality Stroke Does the patient have a stroke diagnosis?: No <Winifred Douglas NP - Last Filed: 03/28/21 10:29> VTE Prior VTE?: No <Winifred Douglas NP - Last Filed: 03/28/21 10:29> VTE Risk Level:: Medical - moderate - high <Winifred Douglas NP - Last Filed: 03/28/21 10:29> VTE Device Contraindication: N/A - Device Ordered <Winifred Douglas NP - Last Filed: 03/28/21 10:29> VTE Drug Contraindication: N/A - Med Ordered <Winifred Douglas NP - Last Filed: 03/28/21 10:29>
--- NOTE | 2021-03-28 12:10 | MHC.CM.PN ---
EMR REVIEWED, PT CONT'S TO BE FOLLOWED BY UROLOGY FOR RESISTANT HTN, BP IMPROVING LAST TWO DAYS, NO MED CHANGES AT THIS TIME. PT ALSO HAD NEW PSYCH CONSULT 03/26/21 AND PT SCORED ON [facility], NO UPDATE FROM PT'S GUARDIAN/CONSERVATOR AT TIME OF THIS NOTE, CM HAS CONTACTED [facility] OF [facility] WHO WERE REVIEWING PT, CM AWAITING RESPONSE AT THIS TIME.
[2021-03-28 15:21] VITALS: BP 165/68; PULSE 55; RESP 20; TEMP 36.1; O2SAT 95
--- NOTE | 2021-03-28 15:25 | MHC.CM.PN ---
1) THIS CM WAS RECOMMENDED [facility] ASSISTED LIV[facility] W/MEMORY SUPPORT AND THIS [place] CONTACTED JUAN CARLOS LIM THE ADMIN AT 1500 TO VERIFY IF THEY HAVE A MEDICAID OR PACE PROGRAM, PER JUAN CARLOS THEY DO HAVE A MEDICAID/PACE PROGRAM THROUGH [facility] HOWEVER OUT OF POCKET COST TO PT WOULD BE $5500 PER MONTH, JUAN CARLOS DID GIVE RECOMMENDATIONS OF OTHER ASSISTED LIVING W/MEMORY CARE INCLUDING [facility], [facility] AND [facility] IN [place]. 2) BAUTISTA RAMIREZ CALLED AND WAS INSTRUCTED TO CALL BACK TOMORROW BETWEEN 8AM-12PM WHEN CRISTINA THE BENEFITS CONSULTING ANALYST WILL BE IN. [phone] 3) [facility] OF [place], MESSAGE LEFT FOR ADMIN W/CM CONTACT NUMBER TTO DETERMINE OUT OF CONTACT PRICING. 4) [facility] CONTACTED AND THEY DO NOT HAVE MEMORY CARE AT ANY OF THEIR LOCATIONS 5) [facility] AT ANY OF THEIR LOCATIONS.
[2021-03-28 16:04] LABS: Glucose, Whole Blood 211 mg/dL (60-115)
[2021-03-28 17:22] VITALS: BP 164/58; PULSE 69
[2021-03-28 21:13] VITALS: BP 166/62; PULSE 62
[2021-03-28] MEDS: Donepezil HCl 5 MG TABLET PO (21:13)
[2021-03-28] MEDS: Atorvastatin Calcium 80 MG TABLET PO (21:13)
[2021-03-28 21:14] VITALS: BP 166/62; PULSE 62
[2021-03-28] MEDS: Doxazosin Mesylate 2 MG TABLET 6 MG PO (21:14)
[2021-03-28 22:57] VITALS: BP 168/86; PULSE 61; RESP 16; TEMP 37.2; O2SAT 96
[2021-03-29] MEDS: Levothyroxine Sodium 75 MCG TABLET PO (05:47)
[2021-03-29 07:29] VITALS: BP 157/84; PULSE 61; RESP 16; TEMP 36.3; O2SAT 95
--- NOTE | 2021-03-29 07:37 | PM.IMPN ---
Progress Note: A&P (1) Vascular dementia without behavioral disturbance: Status: Acute <Winifred Douglas NP - Last Filed: 03/29/21 14:29> Assessment and Plan: 85yo F with HTN, HLD, DM2, hypothyroidism, CAD s/p PCI. initially admitted with falls, elevated troponin; disposition complicated by cognitive impairment requiring guardianship on 02/26/21 developed hypoxia, dyspnea -> CHF exacerbation with NSTEMI on 03/02/21 had 2 episodes of junctional bradycardia/sinus pause associated with BM and vomiting # Resistant HTN. Improving Followed closely by nephrology Renal artery stenosis not seen on CT angio Nifedipine 120 daily Imdur 30 daily Clonodine 0.1mg patch q weekly (pulse as been greater than 55 during vitals, not on tele) Losartan 100 Hydralazine 50 TID Aldactone 50 BID Dozazosin 6mg hs # acute grief reaction/depression CARE team following Covid vaccination #1 on 03/23/21, 04/12 would be day 21 for 2nd shot # cognitive impairment evaluated by psychiatry. 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 No further episodes - likely vasovagal; Cardiology concurs.? 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 low risk ambulation Full code dispo - waiting placement/guardianship Attending Dr. Diaz ? <Winifred Douglas NP - Last Filed: 03/29/21 14:29> Subjective Subjective Date of Service: 03/29/21 <Winifred Douglas NP - Last Filed: 03/29/21 14:29> 03/29/21 <Adolfo Diaz MD - Last Filed: 03/29/21 17:49> Interval History: Follow up hypertensive urgency better blood pressure control laying in bed <Winifred Douglas NP - Last Filed: 03/29/21 14:29> Physical Exam Vital Signs: Vital Signs: Last Vital Signs Temp 97.4 F 03/29/21 07:29 Pulse 61 03/29/21 07:29 Resp 16 03/29/21 07:29 BP 157/84 H 03/29/21 07:29 Pulse Ox 95 03/29/21 07:29 Body Mass Index 20.1 <Winifred Douglas NP - Last Filed: 03/29/21 14:29> Appearing in no acute distress lung sounds are clear to auscultation heart regular rate rhythm, clear S1, S2 positive bowel sounds, abdomen is soft, nontender neuro patient is alert x3, no focal deficits <Winifred Douglas NP - Last Filed: 03/29/21 14:29> Objective Data Current Medications Generic Name Dose Route Start Last Admin Trade Name Freq PRN Reason Stop Dose Admin Aspirin 81 mg 02/28/21 09:00 03/28/21 07:39 Aspirin 81 Mg Tab.Chew PO 81 mg DAILY RAGHAVENDRA Administration Atorvastatin Calcium 80 mg 02/27/21 08:00 03/28/21 21:13 Atorvastatin Calcium 80 Mg Tablet PO 80 mg BEDTIME RAGHAVENDRA Administration Clonidine 0.1 mg 03/13/21 09:00 03/27/21 10:41 Clonidine 0.1 Mg Patch.Tdwk TRANSDERMA 0.1 mg Tu@0900 RAGHAVENDRA Administration Protocol Donepezil HCl 5 mg 03/26/21 21:00 03/28/21 21:13 Donepezil Hcl 5 Mg Tablet PO 5 mg BEDTIME RAGHAVENDRA Administration Doxazosin Mesylate 6 mg 03/25/21 21:00 03/28/21 21:14 Doxazosin Mesylate 2 Mg Tablet PO 6 mg BEDTIME RAGHAVENDRA Administration Protocol Ferrous Sulfate 324 mg 02/28/21 09:00 03/28/21 07:38 Ferrous Sulfate 324 Mg Tablet.Dr PO 324 mg DAILY RAGHAVENDRA Administration Glipizide 2.5 mg 02/24/21 17:00 03/28/21 16:22 Glipizide 5 Mg Tablet PO 2.5 mg BIDWM RAGHAVENDRA Administration Guaifenesin/Dextromethorphan 5 ml 03/02/21 23:01 Guaifenesin Dm 100/10/5 Ml 5 Ml Syrup PO Q6H PRN cough Hydralazine HCl 50 mg 03/08/21 15:00 03/28/21 21:13 Hydralazine Hcl 50 Mg Tablet PO 50 mg TID [facility] Administration Protocol Isosorbide Mononitrate 30 mg 03/04/21 14:30 03/28/21 07:39 Isosorbide Mononitrate 30 Mg Tab.Er.24h PO 30 mg DAILY [facility] Administration Protocol Levothyroxine Sodium 75 mcg 01/13/21 09:00 03/29/21 05:47 Levothyroxine Sodium 75 Mcg Tablet PO 75 mcg DAILY@0600 [facility] Administration Losartan Potassium 100 mg 03/08/21 09:00 03/28/21 07:39 Losartan Potassium 50 Mg Tablet PO 100 mg DAILY [facility] Administration Protocol Nifedipine 120 mg 02/13/21 09:00 03/28/21 07:39 Nifedipine Er 60 Mg Tab.Er.24 PO 120 mg DAILY [facility] Administration Protocol Ondansetron HCl 4 mg 03/02/21 14:26 03/02/21 12:30 Ondansetron Hcl 4 Mg/2 Ml Vial IVPUSH 4 mg Q4H PRN Administration nausea/vomiting Spironolactone 50 mg 03/26/21 18:00 03/28/21 17:22 Spironolactone 25 Mg Tablet PO 50 mg BID@0900,1800 [facility] Administration Protocol <Winifred Douglas NP - Last Filed: 03/29/21 14:29> Labs CBC & Chem 7: : 03/19/21 10:14 03/28/21 06:15 <Winifred Douglas NP - Last Filed: 03/29/21 14:29> Labs: Laboratory Results - last 24 hr 03/28/21 03/28/21 07:22 15:59 POC Glucose 142 H 211 H <Winiferd Douglas NP - Last Filed: 03/29/21 14:29> Microbiology Microbiology Results: Microbiology 03/27/21 Unknown Urine clean catch - Urine rich top Urine Culture - Preliminary Gram negative sterling 11/24/20 08:18 Stool Stool Culture - Final 09/21/20 Unknown Urine clean catch - Clean Catch Midstream Urine Culture - Final No growth. <Winifred Douglas NP - Last Filed: 03/29/21 14:29> Quality Stroke Does the patient have a stroke diagnosis?: No <Winifred Douglas NP - Last Filed: 03/29/21 14:29> VTE Prior VTE?: No <Winifred Douglas NP - Last Filed: 03/29/21 14:29> VTE Risk Level:: Medical - moderate - high <Winifred Douglas NP - Last Filed: 03/29/21 14:29> VTE Device Contraindication: N/A - Device Ordered <Winifred Douglas NP - Last Filed: 03/29/21 14:29> VTE Drug Contraindication: N/A - Med Ordered <Winifred Douglas NP - Last Filed: 03/29/21 14:29>
[2021-03-29 07:44] LABS: Glucose, Whole Blood 148 mg/dL (60-115)
--- NOTE | 2021-03-29 07:49 | P.PNNP_ITS ---
Subjective Subjective Date of Service: 03/29/21 Principal diagnosis: htn Interval history: Follow up hypertensive urgency better blood pressure control laying in bed Physical Exam Vital Signs: Vital Signs: Last Vital Signs Temp 97.4 F 03/29/21 07:29 Pulse 61 03/29/21 07:29 Resp 16 03/29/21 07:29 BP 157/84 H 03/29/21 07:29 Pulse Ox 95 03/29/21 07:29 Body Mass Index 20.1 Const: Other: General: AO X 3, no acute distress Resp: CTA bilateral CVS: S1,S2,RRR GI: +BS, NT, no distention Skin: No rash Neuro: motor grossly intact Psych: depressed compare to usual General: cooperative, healthy appearing, comfortable, no acute distress, well developed, alert, awake and Physically active; No acute distress Nutritional Appearance: average body habitus, well nourished and thin Orientation/consciousness: oriented to person, oriented to place and patient oriented x3 Limitations: no limitations and other limitations (Question if the patient remembers events correctly) HENMT: Head: Yes normal to inspection, Yes normocephalic and Yes atraumatic Ears: hearing grossly normal bilaterally and external ears normal General nose exam: Normal external nose present Face and sinus: Yes normal facial exam Mouth: Normal oral and palatal mucosa present and oropharynx normal Throat: Yes posterior oropharynx normal Eyes: General: appearance normal, both eyes and all related structures Visual Adam: normal visual adam by confrontation Alignment and Position: alignment normal Periorbital: periorbital findings normal Eyelids: Yes eyelids normal Conjunctivae: conjunctivae normal Sclerae: sclerae normal Corneas: corneas normal Pupils: Equal, round and reactive pupils present and Pupil accommodation reflex normal EOM: EOMs intact bilaterally Direct Ophthalmoscopy: normal light reflex Neck: Neck: Yes normal visual inspection, Yes full ROM, Yes no lymphadenopathy, Yes no meningeal signs, Yes trachea midline and Yes supple Thyroid: Thyroid normal Carotids: normal carotid upstroke and bounding pulses Chest: Chest palpation & inspection: normal inspection of the chest and normal palpation of entire chest wall Resp: Effort & Inspection: normal respiratory effort, able to speak in complete sentences and no respiratory distress Auscultation: clear to au scultation bilaterally, no crackles, no wheezes and diminished lung sounds Cardio: Jugular venous distension: no JVD Palpation: normal PMI Rate: regular rate Rhythm: regular rhythm Heart sounds: S1 normal heart sound present, S2 normal heart sound present, no gallops, Murmur heart sound present systolic early, III/ and at the right sternal border and no rubs Peripheral pulses: Peripheral pulses 2+ throughout GI: Inspection: Yes normal to inspection Palpation (GI): Soft to palpation, nontender, no guarding, not rigid and No hepatosplenomegaly present Percussion: Yes normal to percussion Auscultation: normal bowel sounds Rectal Exam - Female: deferred : General: Yes no CVA tenderness Back/Spine/Pelvis: Back: no CVA tenderness Cervical Spine: normal cervical lordosis and cervical ROM normal Thoracic/Lumbar Spine: thoracic and lumbar spine normal to inspection Skin: General skin exam: no rashes or lesions noted Lesions: no lesions Rashes: no rashes Wounds: no wounds Neuro: General: oriented to person, oriented to place, patient oriented x3, tone normal, moves all extremities, Normal light touch and pain sensation, no meningeal signs, no focal motor deficits, CN's II-XI intact bilaterally, normal sensation to monofilament and deep tendon reflexes 2+ bilaterally Cranial nerves: Yes CN's II-XII intact bilaterally, Yes Equal, round and reactive pupils present, Yes Bilaterally intact EOM present, Yes Nystagmus not present, Yes Normal facial strength present, Yes Midline tongue present, Yes Normal gag reflex present, Yes Symmetric palate elevation present, Yes Normal hearing present and Yes Ability to bilaterally rotate head present Cognition (Neuro): normal cognition and abnormal cognition Speech: Abnormal speech present and Other speech findings present (Neuro) Motor exam (neuro): 5/5 motor strength present throughout, Pronator motor function not present, no tremor noted, no asterixis, Motor fasciculations not present, Normal motor muscle tone present throughout and Motor abnormalities not present Sensory Exam: Bilaterally intact graphesthesia and Sensory deficit (Neuro) Deep tendon reflexes (DTR's): Right triceps reflex intensity grade: 2+, Left triceps reflex intensity grade: 2+, Rt Biceps (C5, C6): 2+, Left biceps reflex intensity grade: 2+, Right brachioradialis reflex intensity grade: 2+, Left brachioradialis reflex intensity grade: 2+, Right patellar reflex intensity grade: 2+, Left patellar reflex intensity grade: 2+, Right ankle reflex intensity grade: 2+ and Left ankle reflex intensity grade: 2+ Plantar Reflex Responses: downgoing: right, left and bilateral Coordination: [id number] test normal and [id number] test normal Pupils: Normal pupillary reactivity/response: bilateral Extrem: General: Yes normal to inspection, Yes full ROM, Yes normal exam except as noted, Yes no clubbing, cyanosis or edema and Yes no pedal edema Psych: Appearance: grossly normal and well kempt Mental Status: mental status grossly normal Speech and movement: Normal speech and movement present and Clear speech present Affect: normal affect Attitude: cooperative Thought process: Normal thought process present Thought content: Normal thought content present Insight: Limited insight present (Psych) and Other insight findings present (Psych) (Patient may not be recalling events correctly based discussion with CM [facility]) Objective Data Labs CBC & Chem 7: 03/19/21 10:14 03/28/21 06:15 Labs: Laboratory Results - last 24 hr 03/28/21 03/29/21 15:59 07:28 POC Glucose 211 H 148 H Microbiology Microbiology Results: Microbiology 03/27/21 Unknown Urine clean catch - Urine rich top Urine Culture - Final Escherichia coli 11/24/20 08:18 Stool Stool Culture - Final 09/21/20 Unknown Urine clean catch - Clean Catch Midstream Urine Culture - Final No growth. Procedures Date of Service Date of Service: 03/29/21 Assessment & Plan Assessment and plan (1) HTN (hypertension): Status: Acute Assessment and Plan: 85yo F with HTN, HLD, DM2, hypothyroidism, CAD s/p PCI. initially admitted with falls, elevated troponin; disposition complicated by cognitive impairment requiring guardianship on 02/26/21 developed hypoxia, dyspnea -> CHF exacerbation with NSTEMI on 03/02/21 had 2 episodes of junctional bradycardia/sinus pause associated with BM and vomiting # Resistant HTN. 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 Time Spent With Patient Time: Total time spent is greater than 50% in coordination of care (as docum ented) at patient's floor/unit and/or counseling patient: Progress Note: Quality Stroke Does the patient have a stroke diagnosis?: No
[2021-03-29] MEDS: glipiZIDE 5 MG TABLET 2.5 MG PO ×2 (09:24→17:55)
[2021-03-29] MEDS: Ferrous Sulfate 324 MG TABLET.DR PO (09:24)
[2021-03-29] MEDS: Spironolactone 25 MG TABLET 50 MG PO ×2 (09:24→17:54)
[2021-03-29] MEDS: Aspirin 81 MG TAB.CHEW PO (09:25)
[2021-03-29] MEDS: Losartan Potassium 50 MG TABLET 100 MG PO (09:25)
[2021-03-29] MEDS: hydrALAZINE HCl 50 MG TABLET PO ×3 (09:25→20:32)
[2021-03-29] MEDS: NIFEdipine ER 60 MG TAB.ER.24 120 MG PO (09:25)
[2021-03-29] MEDS: Isosorbide Mononitrate 30 MG TAB.ER.24H PO (09:25)
[2021-03-29] MEDS: cefTRIAXone sodium 1 GM in 0.9 % Sodium Chloride 50 ML IV (14:53)
[2021-03-29 15:35] VITALS: BP 160/81; PULSE 89; RESP 18; TEMP 36.1; O2SAT 96
[2021-03-29] MEDS: Donepezil HCl 5 MG TABLET PO (20:32)
[2021-03-29] MEDS: Atorvastatin Calcium 80 MG TABLET PO (20:32)
[2021-03-29] MEDS: Doxazosin Mesylate 2 MG TABLET 6 MG PO (20:32)
[2021-03-30] VITALS: BP 167/88; PULSE 66; RESP 18; TEMP 36.5; O2SAT 97
[2021-03-30] MEDS: Levothyroxine Sodium 75 MCG TABLET PO (06:33)
[2021-03-30 08:00] VITALS: BP 167/69; PULSE 65; RESP 17; TEMP 36.9; O2SAT 97
--- NOTE | 2021-03-30 08:15 | PM.PNNEP ---
Subjective Subjective Date of Service: 03/30/21 Principal diagnosis: htn Interval history: Follow up hypertensive urgency better blood pressure control laying in bed Physical Exam Vital Signs: Vital Signs: Last Vital Signs Temp 98.4 F 03/30/21 08:00 Pulse 65 03/30/21 08:00 Resp 17 03/30/21 08:00 BP 167/69 H 03/30/21 08:00 Pulse Ox 97 03/30/21 08:00 Body Mass Index 20.1 Const: Other: General: AO X 3, no acute distress Resp: CTA bilateral CVS: S1,S2,RRR GI: +BS, NT, no distention Skin: No rash Neuro: motor grossly intact Psych: depressed compare to usual General: cooperative, healthy appearing, comfortable, no acute distress, well developed, alert, awake and Physically active; No acute distress Nutritional Appearance: average body habitus, well nourished and thin Orientation/consciousness: oriented to person, oriented to place and patient oriented x3 Limitations: no limitations and other limitations (Question if the patient remembers events correctly) HENMT: Head: Yes normal to inspection, Yes normocephalic and Yes atraumatic Ears: hearing grossly normal bilaterally and external ears normal General nose exam: Normal external nose present Face and sinus: Yes normal facial exam Mouth: Normal oral and palatal mucosa present and oropharynx normal Throat: Yes posterior oropharynx normal Eyes: General: appearance normal, both eyes and all related structures Visual Adam: normal visual adam by confrontation Alignment and Position: alignment normal Periorbital: periorbital findings normal Eyelids: Yes eyelids normal Conjunctivae: conjunctivae normal Sclerae: sclerae normal Corneas: corneas normal Pupils: Equal, round and reactive pupils present and Pupil accommodation reflex normal EOM: EOMs intact bilaterally Direct Ophthalmoscopy: normal light reflex Neck: Neck: Yes normal visual inspection, Yes full ROM, Yes no lymphadenopathy, Yes no meningeal signs, Yes trachea midline and Yes supple Thyroid: Thyroid normal Carotids: normal carotid upstroke and bounding pulses Chest: Chest palpation & inspection: normal inspection of the chest and normal palpation of entire chest wall Resp: Effort & Inspection: normal respiratory effort, able to speak in complete sentences and no respiratory distress Auscultation: clear to auscultation bilaterally, no crackles, no wheezes and diminished lung sounds Cardio: Jugular venous distension: no JVD Palpation: normal PMI Rate: regular rate Rhythm: regular rhythm Heart sounds: S1 normal heart sound present, S2 normal heart sound present, no gallops, Murmur heart sound present systolic early, III/ and at the right sternal border and no rubs Peripheral pulses: Peripheral pulses 2+ throughout GI: Inspection: Yes normal to inspection Palpation (GI): Soft to palpation, nontender, no guarding, not rigid and No hepatosplenomegaly present Percussion: Yes normal to percussion Auscultation: normal bowel sounds Rectal Exam - Female: deferred : General: Yes no CVA tenderness Back/Spine/Pelvis: Back: no CVA tenderness Cervical Spine: normal cervical lordosis and cervical ROM normal Thoracic/Lumbar Spine: thoracic and lumbar spine normal to inspection Skin: General skin exam: no rashes or lesions noted Lesions: no lesions Rashes: no rashes Wounds: no wounds Neuro: General: oriented to person, oriented to place, patient oriented x3, tone normal, moves all extremities, Normal light touch and pain sensation, no meningeal signs, no focal motor deficits, CN's II-XI intact bilaterally, normal sensation to monofilament and deep tendon reflexes 2+ bilaterally Cranial nerves: Yes CN's II-XII intact bilaterally, Yes Equal, round and reactive pupils present, Yes Bilaterally intact EOM present, Yes Nystagmus not present, Yes Normal facial strength present, Yes Midline tongue present, Yes Normal gag reflex present, Yes Symmetric palate elevation present, Yes Normal hearing present and Yes Ability to bilaterally rotate head present Cognition (Neuro): normal cognition and abnormal cognition Speech: Abnormal speech present and Other speech findings present (Neuro) Motor exam (neuro): 5/5 motor strength present throughout, Pronator motor function not present, no tremor noted, no asterixis, Motor fasciculations not present, Normal motor muscle tone present throughout and Motor abnormalities not present Sensory Exam: Bilaterally intact graphesthesia and Sensory deficit (Neuro) Deep tendon reflexes (DTR's): Right triceps reflex intensity grade: 2+, Left triceps reflex intensity grade: 2+, Rt Biceps (C5, C6): 2+, Left biceps reflex intensity grade: 2+, Right brachioradialis reflex intensity grade: 2+, Left brachioradialis reflex intensity grade: 2+, Right patellar reflex intensity grade: 2+, Left patellar reflex intensity grade: 2+, Right ankle reflex intensity grade: 2+ and Left ankle reflex intensity grade: 2+ Plantar Reflex Responses: downgoing: right, left and bilateral Coordination: [id number] test normal and [id number] test normal Pupils: Normal pupillary reactivity/response: bilateral Extrem: General: Yes normal to inspection, Yes full ROM, Yes normal exam except as noted, Yes no clubbing, cyanosis or edema and Yes no pedal edema Psych: Appearance: grossly normal and well kempt Mental Status: mental status grossly normal Speech and movement: Normal speech and movement present and Clear speech present Affect: normal affect Attitude: cooperative Thought process: Normal thought process present Thought content: Normal thought content present Insight: Limited insight present (Psych) and Other insight findings present (Psych) (Patient may not be recalling events correctly based discussion with CM [facility]) Objective Data Labs CBC & Chem 7: 03/19/21 10:14 03/28/21 06:15 Microbiology Microbiology Results: Microbiology 03/27/21 Unknown Urine clean catch - Urine rich top Urine Culture - Final Escherichia coli 11/24/20 08:18 Stool Stool Culture - Final 09/21/20 Unknown Urine clean catch - Clean Catch Midstream Urine Culture - Final No growth. Procedures Date of Service Date of Service: 03/30/21 Assessment & Plan Assessment and plan (1) Vascular dementia without behavioral disturbance: Status: Acute Assessment and Plan: 85yo F with HTN, HLD, DM2, hypothyroidism, CAD s/p PCI. initially admitted with falls, elevated troponin; disposition complicated by cognitive impairment requiring guardianship on 02/26/21 developed hypoxia, dyspnea -> CHF exacerbation with NSTEMI on 03/02/21 had 2 episodes of junctional bradycardia/sinus pause associated with BM and vomiting # Resistant HTN. Improving Followed closely by nephrology Renal artery stenosis not seen on CT angio Nifedipine 120 daily Imdur 30 daily Clonodine 0.1mg patch q weekly (pulse as been greater than 55 during vitals, not on tele) Losartan 100 Hydralazine 50 TID Aldactone 50 BID Dozazosin 6mg hs we can increase the clonidine patch to a #3 Time Spent With Patient Time: Total time spent is greater than 50% in coordination of care (as documented) at patient's floor/unit and/or counseling patient: Progress Note: Quality Stroke Does the patient have a stroke diagnosis?: No
[2021-03-30] MEDS: glipiZIDE 5 MG TABLET 2.5 MG PO ×2 (09:06→18:10)
[2021-03-30] MEDS: Spironolactone 25 MG TABLET 50 MG PO ×2 (09:06→18:11)
[2021-03-30] MEDS: NIFEdipine ER 60 MG TAB.ER.24 120 MG PO (09:07)
[2021-03-30] MEDS: Aspirin 81 MG TAB.CHEW PO (09:07)
[2021-03-30] MEDS: hydrALAZINE HCl 50 MG TABLET PO ×3 (09:07→20:20)
[2021-03-30] MEDS: Losartan Potassium 50 MG TABLET 100 MG PO (09:07)
[2021-03-30] MEDS: Isosorbide Mononitrate 30 MG TAB.ER.24H PO (09:07)
[2021-03-30] MEDS: Ferrous Sulfate 324 MG TABLET.DR PO (09:08)
--- NOTE | 2021-03-30 14:00 | HO.PM.IMPN ---
Subjective Subjective Date of Service: 03/30/21 Interval History: No acute complaints, had an uneventful night. Review of Systems General no headache, no dizziness, no fever chills. CVS no chest pain, no palpitation. Respiratory no cough, no sob. Gastrointestinal no nausea, no vomiting, no abdominal pain Physical Exam Vital Signs: Vital Signs: Last Vital Signs Temp 98.4 F 03/30/21 08:00 Pulse 65 03/30/21 08:00 Resp 17 03/30/21 08:00 BP 167/69 H 03/30/21 08:00 Pulse Ox 97 03/30/21 08:00 Body Mass Index 20.1 General no acute distress. Neck supple no JVD. CVS regular rate rhythm, Respiratory lungs clear to auscultation, no respiratory distress, no wheeze, no rhonchi. Gastrointestinal abdomen soft, nontender, bowel sounds audible. Extremities no edema. Neuro nonfocal patient moving all 4 extremity speech clear. Psych poor insight Skin no rash Objective Data Current Medications Generic Name Dose Route Start Last Admin Trade Name Srinivas PRN Reason Stop Dose Admin Aspirin 81 mg 02/28/21 09:00 03/30/21 09:07 Aspirin 81 Mg Tab.Chew PO 81 mg DAILY RAGHAVENDRA Administration Atorvastatin Calcium 80 mg 02/27/21 08:00 03/29/21 20:32 Atorvastatin Calcium 80 Mg Tablet PO 80 mg BEDTIME RAGHAVENDRA Administration Clonidine 0.1 mg 03/13/21 09:00 03/27/21 10:41 Clonidine 0.1 Mg Patch.Tdwk TRANSDERMA 0.1 mg Tu@0900 RAGHAVENDRA Administration Protocol Donepezil HCl 5 mg 03/26/21 21:00 03/29/21 20:32 Donepezil Hcl 5 Mg Tablet PO 5 mg BEDTIME RAGHAVENDRA Administration Doxazosin Mesylate 6 mg 03/25/21 21:00 03/29/21 20:32 Doxazosin Mesylate 2 Mg Tablet PO 6 mg BEDTIME RAGHAVENDRA Administration Protocol Ferrous Sulfate 324 mg 02/28/21 09:00 03/30/21 09:08 Ferrous Sulfate 324 Mg Tablet.Dr PO 324 mg DAILY RAGHAVENDRA Administration Glipizide 2.5 mg 02/24/21 17:00 03/30/21 09:06 Glipizide 5 Mg Tablet PO 2.5 mg BIDWM RAGHAVENDRA Administration Guaifenesin/Dextromethorphan 5 ml 03/02/21 23:01 Guaifenesin Dm 100/10/5 Ml 5 Ml Syrup PO Q6H PRN cough Hydralazine HCl 50 mg 03/08/21 15:00 03/30/21 09:07 Hydralazine Hcl 50 Mg Tablet PO 50 mg TID [facility] Administration Protocol Ceftriaxone Sodium 1 gm/ 50 mls @ 100 mls/hr 03/29/21 15:00 03/29/21 15:36 Sodium Chloride IV Infused Q24H RAGHAVENDRA Infusion Isosorbide Mononitrate 30 mg 03/04/21 14:30 03/30/21 09:07 Isosorbide Mononitrate 30 Mg Tab.Er.24h PO 30 mg DAILY [facility] Administration Protocol Levothyroxine Sodium 75 mcg 01/13/21 09:00 03/30/21 06:33 Levothyroxine Sodium 75 Mcg Tablet PO 75 mcg DAILY@0600 RAGHAVENDRA Administration Losartan Potassium 100 mg 03/08/21 09:00 03/30/21 09:07 Losartan Potassium 50 Mg Tablet PO 100 mg DAILY RAGHAVENDRA Administration Protocol Nifedipine 120 mg 02/13/21 09:00 03/30/21 09:07 Nifedipine Er 60 Mg Tab.Er.24 PO 120 mg DAILY [facility] Administration Protocol Ondansetron HCl 4 mg 03/02/21 14:26 03/02/21 12:30 Ondansetron Hcl 4 Mg/2 Ml Vial IVPUSH 4 mg Q4H PRN Administration nausea/vomiting Spironolactone 50 mg 03/26/21 18:00 03/30/21 09:06 Spironolactone 25 Mg Tablet PO 50 mg BID@0900,1800 [facility] Administration Protocol Labs CBC & Chem 7: 03/19/21 10:14 03/28/21 06:15 Assessment and Plan (1) Vascular dementia without behavioral disturbance: Status: Acute (2) CHF (congestive heart failure): Status: Acute (3) Dementia, vascular, mixed: Status: Acute (4) HTN (hypertension): Status: Acute Assessment and Plan: 85yo F with HTN, HLD, DM2, hypothyroidism, CAD s/p PCI. initially admitted with falls, elevated troponin; disposition complicated by cognitive impairment requiring guardianship on 02/26/21 developed hypoxia, dyspnea -> CHF exacerbation with NSTEMI on 03/02/21 had 2 episodes of junctional bradycardia/sinus pause associated with BM and vomiting # Resistant HTN. BP remains elevated case discussed with Dr. Luis he recommended to increase dose of clonidine patch Renal artery stenosis not seen on CT angio Nifedipine 120 daily Imdur 30 daily Losartan 100mg Hydralazine 50 TID Aldactone 50 BID Dozazosin 6mg hs Will increase dose Clonidine patch from 0.1mg to 0.2mg q weekly follow BP closely # acute grief reaction/depression CARE team following Covid vaccination #1 on 03/23/21, 04/12 would be day 21 for 2nd shot # cognitive impairment evaluated by psychiatry. 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 No further episodes - likely vasovagal; Cardiology concurs.? 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 low risk ambulation Full code dispo - waiting placement/guardianship Quality Stroke Does the patient have a stroke diagnosis?: No VTE Prior VTE?: No VTE Risk Level:: Medical - moderate - high VTE Device Contraindication: N/A - Device Ordered VTE Drug Contraindication: N/A - Med Ordered
[2021-03-30] MEDS: cefTRIAXone sodium 1 GM in 0.9 % Sodium Chloride 50 ML IV (14:27)
[2021-03-30] MEDS: cloNIDine 0.2 MG PATCH.TDWK TRANSDERMA (15:18)
[2021-03-30 15:38] VITALS: BP 167/64; PULSE 66; RESP 18; TEMP 36.8; O2SAT 96
[2021-03-30 18:11] VITALS: BP 167/64; PULSE 66
[2021-03-30] MEDS: Atorvastatin Calcium 80 MG TABLET PO (20:19)
[2021-03-30 20:20] VITALS: BP 165/84; PULSE 62
[2021-03-30] MEDS: Donepezil HCl 5 MG TABLET PO (20:20)
[2021-03-30 20:21] VITALS: BP 165/84; PULSE 62
[2021-03-30] MEDS: Doxazosin Mesylate 2 MG TABLET 6 MG PO (20:21)
[2021-03-31] VITALS: BP 144/68; PULSE 62; RESP 16; TEMP 36.6; O2SAT 96
[2021-03-31] MEDS: Levothyroxine Sodium 75 MCG TABLET PO (06:38)
[2021-03-31 07:18] VITALS: BP 170/87; PULSE 96; RESP 20; TEMP 36.1; O2SAT 96
[2021-03-31 07:39] LABS: Glucose, Whole Blood 132 mg/dL (60-115)
[2021-03-31] MEDS: NIFEdipine ER 60 MG TAB.ER.24 120 MG PO (08:59)
[2021-03-31] MEDS: hydrALAZINE HCl 50 MG TABLET PO ×3 (08:59→19:18)
[2021-03-31] MEDS: Spironolactone 25 MG TABLET 50 MG PO ×2 (08:59→16:23)
[2021-03-31] MEDS: Aspirin 81 MG TAB.CHEW PO (08:59)
[2021-03-31] MEDS: Ferrous Sulfate 324 MG TABLET.DR PO (08:59)
[2021-03-31] MEDS: glipiZIDE 5 MG TABLET 2.5 MG PO ×2 (09:00→16:23)
[2021-03-31] MEDS: Isosorbide Mononitrate 30 MG TAB.ER.24H PO (09:04)
[2021-03-31] MEDS: Losartan Potassium 50 MG TABLET 100 MG PO (09:06)
[2021-03-31 10:54] VITALS: BP 158/79; PULSE 66; RESP 20; TEMP 36.6; O2SAT 96
[2021-03-31] MEDS: cefTRIAXone sodium 1 GM in 0.9 % Sodium Chloride 50 ML IV (14:42)
[2021-03-31 15:28] VITALS: BP 152/64; PULSE 68; RESP 16; TEMP 36.4; O2SAT 96
--- NOTE | 2021-03-31 15:36 | P.PNIM_ITS ---
Subjective Subjective Date of Service: 03/31/21 Interval History: No acute complaints, no issues overnight. Review of Systems General no headache, no dizziness, no fever chills.? CVS no chest pain, no palpitation.? Respiratory no cough, no sob.? Gastrointestinal no nausea, no vomiting, no abdominal pain Physical Exam Vital Signs: Vital Signs: Last Vital Signs Temp 97.6 F 03/31/21 15:28 Pulse 68 03/31/21 15:28 Resp 16 03/31/21 15:28 BP 152/64 H 03/31/21 15:28 Pulse Ox 96 03/31/21 15:28 Body Mass Index 20.1 General no acute distress.? Neck? supple no JVD. CVS? regular rate rhythm, Respiratory lungs clear to auscultation, no respiratory distress, no wheeze, no rhonchi. Gastrointestinal abdomen soft, nontender, bowel sounds audible. Extremities no edema. Neuro nonfocal patient moving all 4 extremity speech clear. Psych poor insight Skin no rash Objective Data Current Medications Generic Name Dose Route Start Last Admin Trade Name Srinivas PRN Reason Stop Dose Admin Aspirin 81 mg 02/28/21 09:00 03/31/21 08:59 Aspirin 81 Mg Tab.Chew PO 81 mg DAILY RAGHAVENDRA Administration Atorvastatin Calcium 80 mg 02/27/21 08:00 03/30/21 20:19 Atorvastatin Calcium 80 Mg Tablet PO 80 mg BEDTIME RAGHAVENDRA Administration Clonidine 0.2 mg 03/30/21 16:00 03/30/21 15:18 Clonidine 0.2 Mg Patch.Tdwk TRANSDERMA 0.2 mg Fr@1600 RAGHAVENDRA Administration Protocol Donepezil HCl 5 mg 03/26/21 21:00 03/30/21 20:20 Donepezil Hcl 5 Mg Tablet PO 5 mg BEDTIME RAGHAVENDRA Administration Doxazosin Mesylate 6 mg 03/25/21 21:00 03/30/21 20:21 Doxazosin Mesylate 2 Mg Tablet PO 6 mg BEDTIME RAGHAVENDRA Administration Protocol Ferrous Sulfate 324 mg 02/28/21 09:00 03/31/21 08:59 Ferrous Sulfate 324 Mg Tablet.Dr PO 324 mg DAILY RAGHAVENDRA Administration Glipizide 2.5 mg 02/24/21 17:00 03/31/21 09:00 Glipizide 5 Mg Tablet PO 2.5 mg BIDWM RAGHAVENDRA Administration Guaifenesin/Dextromethorphan 5 ml 03/02/21 23:01 Guaifenesin Dm 100/10/5 Ml 5 Ml Syrup PO Q6H PRN cough Hydralazine HCl 50 mg 03/08/21 15:00 03/31/21 14:41 Hydralazine Hcl 50 Mg Tablet PO 50 mg TID [facility] Administration Protocol Ceftriaxone Sodium 1 gm/ 50 mls @ 100 mls/hr 03/29/21 15:00 03/31/21 15:16 Sodium Chloride IV Infused Q24H RAGHAVENDRA Infusion Isosorbide Mononitrate 30 mg 03/04/21 14:30 03/31/21 09:04 Isosorbide Mononitrate 30 Mg Tab.Er.24h PO 30 mg DAILY [facility] Administration Protocol Levothyroxine Sodium 75 mcg 01/13/21 09:00 03/31/21 06:38 Levothyroxine Sodium 75 Mcg Tablet PO 75 mcg DAILY@0600 RAGHAVENDRA Administration Losartan Potassium 100 mg 03/08/21 09:00 03/31/21 09:06 Losartan Potassium 50 Mg Tablet PO 100 mg DAILY RAGHAVENDRA Administration Protocol Nifedipine 120 mg 02/13/21 09:00 03/31/21 08:59 Nifedipine Er 60 Mg Tab.Er.24 PO 120 mg DAILY [facility] Administration Protocol Ondansetron HCl 4 mg 03/02/21 14:26 03/02/21 12:30 Ondansetron Hcl 4 Mg/2 Ml Vial IVPUSH 4 mg Q4H PRN Administration nausea/vomiting Spironolactone 50 mg 03/26/21 18:00 03/31/21 08:59 Spironolactone 25 Mg Tablet PO 50 mg BID@0900,1800 [facility] Administration Protocol Labs CBC & Chem 7: 03/19/21 10:14 03/28/21 06:15 Labs: Laboratory Results - last 24 hr 03/31/21 07:18 POC Glucose 132 H Assessment and Plan (1) Vascular dementia without behavioral disturbance: Status: Acute (2) CHF (congestive heart failure): Status: Acute (3) HTN (hypertension): Status: Acute (4) Dementia, vascular, mixed: Status: Acute Assessment and Plan: 85yo F with HTN, HLD, DM2, hypothyroidism, CAD s/p PCI. initially admitted with falls, elevated troponin; disposition complicated by cognitive impairment [facility] on 02/26/21 developed hypoxia, dyspnea -> CHF exacerbation with NSTEMI on 03/02/21 had 2 episodes of junctional bradycardia/sinus pause associated with BM and vomiting # Resistant HTN.? BP improving with increased dose of clonidine patch 0.2 mg Renal artery stenosis not seen on CT angio continue Nifedipine 120 daily Imdur 30 daily Losartan 100mg Hydralazine 50 TID Aldactone 50 BID Dozazosin 6mg hs follow BP closely # acute grief reaction/depression CARE team following Covid vaccination #1 on 03/23/21, 04/12 would be day 21 for 2nd shot # cognitive impairment evaluated by psychiatry. 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 No further episodes - likely vasovagal; Cardiology concurs.? 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 low risk ambulation Full code dispo - waiting placement/guardianship Quality Stroke Does the patient have a stroke diagnosis?: No VTE Prior VTE?: No VTE Risk Level:: Medical - moderate - high VTE Device Contraindication: N/A - Device Ordered VTE Drug Contraindication: N/A - Med Ordered
[2021-03-31 16:23] VITALS: BP 152/64; PULSE 68
[2021-03-31] MEDS: Donepezil HCl 5 MG TABLET PO (19:17)
[2021-03-31] MEDS: Doxazosin Mesylate 2 MG TABLET 6 MG PO (19:18)
[2021-03-31] MEDS: Atorvastatin Calcium 80 MG TABLET PO (19:18)
[2021-04-01] VITALS (7 sets, daily range): BP systolic 122–161; BP diastolic 57–71; PULSE 58–68; RESP 16–20; TEMP 36–36.3; O2SAT 96–98
[2021-04-01] MEDS: Levothyroxine Sodium 75 MCG TABLET PO (06:14)
[2021-04-01 07:27] LABS: Glucose, Whole Blood 145 mg/dL (60-115)
[2021-04-01] MEDS: glipiZIDE 5 MG TABLET 2.5 MG PO ×2 (07:35→17:13)
[2021-04-01] MEDS: Ferrous Sulfate 324 MG TABLET.DR PO (07:35)
[2021-04-01] MEDS: Aspirin 81 MG TAB.CHEW PO (07:35)
[2021-04-01] MEDS: Spironolactone 25 MG TABLET 50 MG PO ×2 (07:36→17:13)
[2021-04-01] MEDS: Isosorbide Mononitrate 30 MG TAB.ER.24H PO (07:36)
[2021-04-01] MEDS: Losartan Potassium 50 MG TABLET 100 MG PO (07:36)
[2021-04-01] MEDS: hydrALAZINE HCl 50 MG TABLET PO ×3 (07:36→19:13)
[2021-04-01] MEDS: NIFEdipine ER 60 MG TAB.ER.24 120 MG PO (07:36)
--- NOTE | 2021-04-01 07:43 | PM.PNNEP ---
Subjective Subjective Date of Service: 04/01/21 Principal diagnosis: htn Interval history: No acute complaints, no issues overnight. Physical Exam Vital Signs: Vital Signs: Last Vital Signs Temp 96.8 F 04/01/21 07:16 Pulse 58 04/01/21 07:36 Resp 20 04/01/21 07:16 BP 152/59 H 04/01/21 07:36 Pulse Ox 97 04/01/21 07:16 Body Mass Index 20.1 Const: Other: General: AO X 3, no acute distress Resp: CTA bilateral CVS: S1,S2,RRR GI: +BS, NT, no distention Skin: No rash Neuro: motor grossly intact Psych: depressed compare to usual General: cooperative, healthy appearing, comfortable, no acute distress, well developed, alert, awake and Physically active; No acute distress Nutritional Appearance: average body habitus, well nourished and thin Orientation/consciousness: oriented to person, oriented to place and patient oriented x3 Limitations: no limitations and other limitations (Question if the patient remembers events correctly) HENMT: Head: Yes normal to inspection, Yes normocephalic and Yes atraumatic Ears: hearing grossly normal bilaterally and external ears normal General nose exam: Normal external nose present Face and sinus: Yes normal facial exam Mouth: Normal oral and palatal mucosa present and oropharynx normal Throat: Yes posterior oropharynx normal Eyes: General: appearance normal, both eyes and all related structures Visual Adam: normal visual adam by confrontation Alignment and Position: alignment normal Periorbital: periorbital findings normal Eyelids: Yes eyelids normal Conjunctivae: conjunctivae normal Sclerae: sclerae normal Corneas: corneas normal Pupils: Equal, round and reactive pupils present and Pupil accommodation reflex normal EOM: EOMs intact bilaterally Direct Ophthalmoscopy: normal light reflex Neck: Neck: Yes normal visual inspection, Yes full ROM, Yes no lymphadenopathy, Yes no meningeal signs, Yes trachea midline and Yes supple Thyroid: Thyroid normal Carotids: normal carotid upstroke and bounding pulses Chest: Chest palpation & inspection: normal inspection of the chest and normal palpation of entire chest wall Resp: Effort & Inspection: normal respiratory effort, able to speak in complete sentences and no respiratory distress Auscultation: clear to auscultation bilaterally, no crackles, no wheezes and diminished lung sounds Cardio: Jugular venous distension: no JVD Palpation: normal PMI Rate: regular rate Rhythm: regular rhythm Heart sounds: S1 normal heart sound present, S2 normal heart sound present, no gallops, Murmur heart sound present systolic early, III/ and at the right sternal border and no rubs Peripheral pulses: Peripheral pulses 2+ throughout GI: Inspection: Yes normal to inspection Palpation (GI): Soft to palpation, nontender, no guarding, not rigid and No hepatosplenomegaly present Percussion: Yes normal to percussion Auscultation: normal bowel sounds Rectal Exam - Female: deferred : General: Yes no CVA tenderness Back/Spine/Pelvis: Back: no CVA tenderness Cervical Spine: normal cervical lordosis and cervical ROM normal Thoracic/Lumbar Spine: thoracic and lumbar spine normal to inspection Skin: General skin exam: no rashes or lesions noted Lesions: no lesions Rashes: no rashes Wounds: no wounds Neuro: General: oriented to person, oriented to place, patient oriented x3, tone normal, moves all extremities, Normal light touch and pain sensation, no meningeal signs, no focal motor deficits, CN's II-XI intact bilaterally, normal sensation to monofilament and deep tendon reflexes 2+ bilaterally Cranial nerves: Yes CN's II-XII intact bilaterally, Yes Equal, round and reactive pupils present, Yes Bilaterally intact EOM present, Yes Nystagmus not present, Yes Normal facial strength present, Yes Midline tongue present, Yes Normal gag reflex present, Yes Symmetric palate elevation present, Yes Normal hearing present and Yes Ability to bilaterally rotate head present Cognition (Neuro): normal cognition and abnormal cognition Speech: Abnormal speech present and Other speech findings present (Neuro) Motor exam (neuro): 5/5 motor strength present throughout, Pronator motor function not present, no tremor noted, no asterixis, Motor fasciculations not present, Normal motor muscle tone present throughout and Motor abnormalities not present Sensory Exam: Bilaterally intact graphesthesia and Sensory deficit (Neuro) Deep tendon reflexes (DTR's): Right triceps reflex intensity grade: 2+, Left triceps reflex intensity grade: 2+, Rt Biceps (C5, C6): 2+, Left biceps reflex intensity grade: 2+, Right brachioradialis reflex intensity grade: 2+, Left brachioradialis reflex intensity grade: 2+, Right patellar reflex intensity grade: 2+, Left patellar reflex intensity grade: 2+, Right ankle reflex intensity grade: 2+ and Left ankle reflex intensity grade: 2+ Plantar Reflex Responses: downgoing: right, left and bilateral Coordination: [id number] test normal and [id number] test normal Pupils: Normal pupillary reactivity/response: bilateral Extrem: General: Yes normal to inspection, Yes full ROM, Yes normal exam except as noted, Yes no clubbing, cyanosis or edema and Yes no pedal edema Psych: Appearance: grossly normal and well kempt Mental Status: mental status grossly normal Speech and movement: Normal speech and movement present and Clear speech present Affect: normal affect Attitude: cooperative Thought process: Normal thought process present Thought content: Normal thought content present Insight: Limited insight present (Psych) and Other insight findings present (Psych) (Patient may not be recalling events correctly based discussion with CM [facility]) Objective Data Labs CBC & Chem 7: 03/19/21 10:14 03/28/21 06:15 Labs: Laboratory Results - last 24 hr 04/01/21 07:23 POC Glucose 145 H Microbiology Microbiology Results: Microbiology 03/27/21 Unknown Urine clean catch - Urine rich top Urine Culture - Final Escherichia coli 11/24/20 08:18 Stool Stool Culture - Final 09/21/20 Unknown Urine clean catch - Clean Catch Midstream Urine Culture - Final No growth. Procedures Date of Service Date of Service: 04/01/21 Assessment & Plan Assessment and plan (1) Vascular dementia without behavioral disturbance: Status: Acute (2) CHF (congestive heart failure): Status: Acute (3) HTN (hypertension): Status: Acute (4) Dementia, vascular, mixed: Status: Acute Assessment and Plan: 85yo F with HTN, HLD, DM2, hypothyroidism, CAD s/p PCI. initially admitted with falls, elevated troponin; disposition complicated by cognitive impairment requiring guardianship on 02/26/21 developed hypoxia, dyspnea -> CHF exacerbation with NSTEMI on 03/02/21 had 2 episodes of junctional bradycardia/sinus pause associated with BM and vomiting # Resistant HTN.? BP improving with increased dose of clonidine patch 0.2 mg Renal artery stenosis not seen on CT angio continue Nifedipine 120 daily Imdur 30 daily Losartan 100mg Hydralazine 50 TID Aldactone 50 BID Dozazosin 6mg hs ? 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
[2021-04-01 08:22] LABS: MANUAL DIFF FLAG NO
[2021-04-01 08:24] LABS: Basophils Percent Auto 0.5 % (0-2); Eosinophils Absolute Auto 0.4 X10*3/uL (0.0-0.4); Eosinophils Percent Auto 5.2 % (0-4); Hematocrit 30.3 % (37-47); Hemoglobin 9.9 g/dl (12.0-16.0); Imm Gran Abs Auto 0.02 X10*3/uL (0.00-0.03); Imm Gran Pct Auto 0.3 % (0.0-0.4); Lymphocytes Absolute Auto 1.2 X10*3/uL (1.2-4.9); Lymphocytes Percent Auto 15.8 % (20-40); Mean Corpuscular HGB Conc 32.7 g/dl (31.0-35.0); Mean Corpuscular Hemoglobin 30.4 pg (27.0-33.0); Mean Corpuscular Volume 92.9 fL (80-98); Mean Platelet Volume 11.3 fL (9.4-12.3); Monocytes Absolute Auto 0.7 X10*3/uL (0.1-1.2); Monocytes Percent Auto 9.7 % (2-11); Neutrophils Absolute Auto 5.2 X10*3/uL (2.0-8.3); Neutrophils Percent Auto 68.5 % (45-73); Platelet Count 255 X10*3/uL (160-400); Red Blood Count 3.26 X10*6/uL (4.20-5.50); Red Cell Distribution Width 14.7 % (11.0-16.0); White Blood Count 7.6 X10*3/uL (4.8-10.8)
[2021-04-01 09:21] LABS: Ferritin 314 ng/mL (10-250)
[2021-04-01 09:55] LABS: Anion Gap 15 (12-20); Blood Urea Nitrogen 37 mg/dL (9-16); Calcium 9.2 mg/dL (8.4-10.2); Carbon Dioxide 24 mmol/L (22-29); Chloride 107 mmol/L (96-108); Creatinine Clr Calc Pharmacy 25.8; Estimated Glomerular Filt Rate 38; Glucose Random 284 mg/dL (60-115); Iron 78 mcg/dL (30-160); Percent Iron Saturation 30 % (15-50); Potassium 4.1 mmol/L (3.3-5.1); Sodium 142 mmol/L (135-145); Total Iron Binding Capacity 259 mcg/dL (228-428); Unsaturated Iron Binding 181 ug/dL
[2021-04-01] MEDS: Sodium Ferric Gluconat/Sucrose 125 MG in 0.9 % Sodium Chloride 100 ML 100 MG IV (10:22)
--- NOTE | 2021-04-01 14:21 | HO.PM.IMPN ---
Subjective Subjective Date of Service: 04/01/21 Interval History: No acute complaints, no acute issues over night. Review of Systems General no headache, no dizziness, no fever chills.? CVS no chest pain, no palpitation.? Respiratory no cough, no sob.? Gastrointestinal no nausea, no vomiting, no abdominal pain Physical Exam Vital Signs: Vital Signs: Last Vital Signs Temp 96.8 F 04/01/21 11:15 Pulse 58 04/01/21 07:36 Resp 20 04/01/21 07:16 BP 152/59 H 04/01/21 07:36 Pulse Ox 97 04/01/21 07:16 Body Mass Index 20.1 General no acute distress.? Neck? supple no JVD. CVS? regular rate rhythm, Respiratory lungs clear to auscultation, no respiratory distress, no wheeze, no rhonchi. Gastrointestinal abdomen soft, nontender, bowel sounds audible. Extremities no edema. Neuro nonfocal patient moving all 4 extremity speech clear. Psych poor insight Skin no rash Objective Data Current Medications Generic Name Dose Route Start Last Admin Trade Name Freq PRN Reason Stop Dose Admin Aspirin 81 mg 02/28/21 09:00 04/01/21 07:35 Aspirin 81 Mg Tab.Chew PO 81 mg DAILY RAGHAVENDRA Administration Atorvastatin Calcium 80 mg 02/27/21 08:00 03/31/21 19:18 Atorvastatin Calcium 80 Mg Tablet PO 80 mg BEDTIME RAGHAVENDRA Administration Clonidine 0.2 mg 03/30/21 16:00 03/30/21 15:18 Clonidine 0.2 Mg Patch.Tdwk TRANSDERMA 0.2 mg Fr@1600 RAGHAVENDRA Administration Protocol Donepezil HCl 5 mg 03/26/21 21:00 03/31/21 19:17 Donepezil Hcl 5 Mg Tablet PO 5 mg BEDTIME RAGHAVENDRA Administration Doxazosin Mesylate 6 mg 03/25/21 21:00 03/31/21 19:18 Doxazosin Mesylate 2 Mg Tablet PO 6 mg BEDTIME RAGHAVENDRA Administration Protocol Glipizide 2.5 mg 02/24/21 17:00 04/01/21 07:35 Glipizide 5 Mg Tablet PO 2.5 mg BIDWM RAGHAVENDRA Administration Guaifenesin/Dextromethorphan 5 ml 03/02/21 23:01 Guaifenesin Dm 100/10/5 Ml 5 Ml Syrup PO Q6H PRN cough Hydralazine HCl 50 mg 03/08/21 15:00 04/01/21 07:36 Hydralazine Hcl 50 Mg Tablet PO 50 mg TID [facility] Administration Protocol Ceftriaxone Sodium 1 gm/ 50 mls @ 100 mls/hr 03/29/21 15:00 03/31/21 15:16 Sodium Chloride IV Infused Q24H RAGHAVENDRA Infusion Ferric Sodium Gluconate 110 mls @ 100 mls/hr 04/01/21 10:00 04/01/21 11:31 Complex 125 mg/ Sodium IV 04/08/21 10:05 Infused Chloride DAILY RAGHAVENDRA Infusion Isosorbide Mononitrate 30 mg 03/04/21 14:30 04/01/21 07:36 Isosorbide Mononitrate 30 Mg Tab.Er.24h PO 30 mg DAILY [facility] Administration Protocol Levothyroxine Sodium 75 mcg 01/13/21 09:00 04/01/21 06:14 Levothyroxine Sodium 75 Mcg Tablet PO 75 mcg DAILY@0600 [facility] Administration Losartan Potassium 100 mg 03/08/21 09:00 04/01/21 07:36 Losartan Potassium 50 Mg Tablet PO 100 mg DAILY [facility] Administration Protocol Nifedipine 120 mg 02/13/21 09:00 04/01/21 07:36 Nifedipine Er 60 Mg Tab.Er.24 PO 120 mg DAILY [facility] Administration Protocol Ondansetron HCl 4 mg 03/02/21 14:26 03/02/21 12:30 Ondansetron Hcl 4 Mg/2 Ml Vial IVPUSH 4 mg Q4H PRN Administration nausea/vomiting Spironolactone 50 mg 03/26/21 18:00 04/01/21 07:36 Spironolactone 25 Mg Tablet PO 50 mg BID@0900,1800 [facility] Administration Protocol Labs CBC & Chem 7: 04/01/21 08:01 04/01/21 09:08 Labs: Laboratory Results - last 24 hr 04/01/21 04/01/21 04/01/21 07:23 08:01 09:08 MCV 92.9 MCH 30.4 MCHC 32.7 RDW 14.7 Plt Count 255 MPV 11.3 Immature Gran % (Auto) 0.3 Neut % (Auto) 68.5 Lymph % (Auto) 15.8 L [place] % (Auto) 9.7 Eos % (Auto) 5.2 H Baso % (Auto) 0.5 Lymph # (Auto) 1.2 [place] # (Auto) 0.7 Eos # (Auto) 0.4 Baso # (Auto) 0.0 Abs Immat Gran (auto) 0.02 Absolute Neuts (auto) 5.2 Absolute Nucleated RBC 0.000 Nucleated RBC % (auto) 0.0 Anion Gap 15 Estim Creat Clear Calc 25.8 Estimated GFR 38 POC Glucose 145 H Random Glucose 284 H D Calcium 9.2 Iron 78 TIBC 259 % Saturation 30 Unsat Iron Binding 181 Ferritin 314 H Assessment and Plan (1) Vascular dementia without behavioral disturbance: Status: Acute (2) CHF (congestive heart failure): Status: Acute (3) Dementia, vascular, mixed: Status: Acute (4) HTN (hypertension): Status: Acute Assessment and Plan: 85yo F with HTN, HLD, DM2, hypothyroidism, CAD s/p PCI. initially admitted with falls, elevated troponin; disposition complicated by cognitive impairment requiring guardianship on 02/26/21 developed hypoxia, dyspnea -> CHF exacerbation with NSTEMI on 03/02/21 had 2 episodes of junctional bradycardia/sinus pause associated with BM and vomiting # Resistant HTN.? BP improving with increased dose of clonidine? patch to 0.2 mg on 03/30 Renal artery stenosis not seen on CT angio ON Nifedipine 120 daily Imdur 30 daily Losartan 100mg Hydralazine 50 TID Aldactone 50 BID Dozazosin 6mg hs follow BP closely # acute grief reaction/depression CARE team following Covid vaccination #1 on 03/23/21, 04/12 would be day 21 for 2nd shot # cognitive impairment evaluated by psychiatry. 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 No further episodes - likely vasovagal; Cardiology concurs.? 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 low risk ambulation Full code dispo - waiting placement/guardianship Quality Stroke Does the patient have a stroke diagnosis?: No VTE Prior VTE?: No VTE Risk Level:: Medical - moderate - high VTE Device Contraindication: N/A - Device Ordered VTE Drug Contraindication: N/A - Med Ordered
[2021-04-01] MEDS: cefTRIAXone sodium 1 GM in 0.9 % Sodium Chloride 50 ML IV (14:42)
[2021-04-01] MEDS: Doxazosin Mesylate 2 MG TABLET 6 MG PO (19:12)
[2021-04-01] MEDS: Donepezil HCl 5 MG TABLET PO (19:13)
[2021-04-01] MEDS: Atorvastatin Calcium 80 MG TABLET PO (19:13)
[2021-04-02] MEDS: Levothyroxine Sodium 75 MCG TABLET PO (06:20)
[2021-04-02 07:25] VITALS: BP 181/73; PULSE 63; RESP 17; TEMP 36.2; O2SAT 96
[2021-04-02 07:46] LABS: Glucose, Whole Blood 152 mg/dL (60-115)
--- NOTE | 2021-04-02 08:06 | P.PNIM_ITS ---
Progress Note: A&P (1) Vascular dementia without behavioral disturbance: Status: Acute (2) HTN (hypertension): Status: Acute Assessment and Plan: 85yo F with HTN, HLD, DM2, hypothyroidism, CAD s/p PCI. initially admitted with falls, elevated troponin; disposition complicated by cognitive impairment requiring guardianship on 02/26/21 developed hypoxia, dyspnea -> CHF exacerbation with NSTEMI on 03/02/21 had 2 episodes of junctional bradycardia/sinus pause associated with BM and vomiting # Resistant HTN.? BP improving with increased dose of clonidine? patch to 0.2 mg on 03/30 Renal artery stenosis not seen on CT angio ON Nifedipine 120 daily ?? ? Imdur 30 daily ?? ? Losartan 100mg ?? ? Hydralazine 50 TID ?? ? Aldactone 50 BID ?? ? Dozazosin 6mg hs ?? ? follow BP closely # acute grief reaction/depression CARE team following Covid vaccination #1 on 03/23/21, 04/12 would be day 21 for 2nd shot # cognitive impairment evaluated by psychiatry. 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 No further episodes - likely vasovagal; Cardiology concurs.? 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 low risk ambulation Full code dispo - waiting placement/guardianship Subjective Subjective Date of Service: 04/02/21 Interval History: Follow up hypertension BP better no complaints overnight Physical Exam Vital Signs: Vital Signs: Last Vital Signs Temp 97.2 F 04/02/21 07:25 Pulse 63 04/02/21 07:25 Resp 17 04/02/21 07:25 BP 181/73 H 04/02/21 07:25 Pulse Ox 96 04/02/21 07:25 Body Mass Index 20.1 Appearing in no acute distress lung sounds are clear to auscultation heart regular rate rhythm, clear S1, S2 positive bowel sounds, abdomen is soft, nontender neuro patient is alert x3, no focal deficits Objective Data Current Medications Generic Name Dose Route Start Last Admin Trade Name Sachaq PRN Reason Stop Dose Admin Aspirin 81 mg 02/28/21 09:00 04/01/21 07:35 Aspirin 81 Mg Tab.Chew PO 81 mg DAILY RAGHAVENDRA Administration Atorvastatin Calcium 80 mg 02/27/21 08:00 04/01/21 19:13 Atorvastatin Calcium 80 Mg Tablet PO 80 mg BEDTIME RAGHAVENDRA Administration Clonidine 0.2 mg 03/30/21 16:00 03/30/21 15:18 Clonidine 0.2 Mg Patch.Tdwk TRANSDERMA 0.2 mg Fr@1600 RAGHAVENDRA Administration Protocol Donepezil HCl 5 mg 03/26/21 21:00 04/01/21 19:13 Donepezil Hcl 5 Mg Tablet PO 5 mg BEDTIME RAGHAVENDRA Administration Doxazosin Mesylate 6 mg 03/25/21 21:00 04/01/21 19:12 Doxazosin Mesylate 2 Mg Tablet PO 6 mg BEDTIME RAGHAVENDRA Administration Protocol Glipizide 2.5 mg 02/24/21 17:00 04/01/21 17:13 Glipizide 5 Mg Tablet PO 2.5 mg BIDWM RAGHAVENDRA Administration Guaifenesin/Dextromethorphan 5 ml 03/02/21 23:01 Guaifenesin Dm 100/10/5 Ml 5 Ml Syrup PO Q6H PRN cough Hydralazine HCl 50 mg 03/08/21 15:00 04/01/21 19:13 Hydralazine Hcl 50 Mg Tablet PO 50 mg TID RAGHAVENDRA Administration Protocol Ceftriaxone Sodium 1 gm/ 50 mls @ 100 mls/hr 03/29/21 15:00 04/01/21 15:16 Sodium Chloride IV Infused Q24H RAGHAVENDRA Infusion Ferric Sodium Gluconate 110 mls @ 100 mls/hr 04/01/21 10:00 04/01/21 11:31 Complex 125 mg/ Sodium IV 04/08/21 10:05 Infused Chloride DAILY RAGHAVENDRA Infusion Isosorbide Mononitrate 30 mg 03/04/21 14:30 04/01/21 07:36 Isosorbide Mononitrate 30 Mg Tab.Er.24h PO 30 mg DAILY RAGHAVENDRA Administration Protocol Levothyroxine Sodium 75 mcg 01/13/21 09:00 04/02/21 06:20 Levothyroxine Sodium 75 Mcg Tablet PO 75 mcg DAILY@0600 RAGHAVENDRA Administration Losartan Potassium 100 mg 03/08/21 09:00 04/01/21 07:36 Losartan Potassium 50 Mg Tablet PO 100 mg DAILY RAGHAVENDRA Administration Protocol Nifedipine 120 mg 02/13/21 09:00 04/01/21 07:36 Nifedipine Er 60 Mg Tab.Er.24 PO 120 mg DAILY RAGHAVENDRA Administration Protocol Ondansetron HCl 4 mg 03/02/21 14:26 03/02/21 12:30 Ondansetron Hcl 4 Mg/2 Ml Vial IVPUSH 4 mg Q4H PRN Administration nausea/vomiting Spironolactone 50 mg 03/26/21 18:00 04/01/21 17:13 Spironolactone 25 Mg Tablet PO 50 mg BID@0900,1800 [facility] Administration Protocol Labs CBC & Chem 7: 04/01/21 08:01 04/01/21 09:08 Labs: Laboratory Results - last 24 hr 04/01/21 04/01/21 04/02/21 08:01 09:08 07:23 MCV 92.9 MCH 30.4 MCHC 32.7 RDW 14.7 Plt Count 255 MPV 11.3 Immature Gran % (Auto) 0.3 Neut % (Auto) 68.5 Lymph % (Auto) 15.8 L [place] % (Auto) 9.7 Eos % (Auto) 5.2 H Baso % (Auto) 0.5 Lymph # (Auto) 1.2 [place] # (Auto) 0.7 Eos # (Auto) 0.4 Baso # (Auto) 0.0 Abs Immat Gran (auto) 0.02 Absolute Neuts (auto) 5.2 Absolute Nucleated RBC 0.000 Nucleated RBC % (auto) 0.0 Anion Gap 15 Estim Creat Clear Calc 25.8 Estimated GFR 38 POC Glucose 152 H Random Glucose 284 H D Calcium 9.2 Iron 78 TIBC 259 % Saturation 30 Unsat Iron Binding 181 Ferritin 314 H Microbiology Microbiology Results: Microbiology 03/27/21 Unknown Urine clean catch - Urine rich top Urine Culture - Final Escherichia coli 11/24/20 08:18 Stool Stool Culture - Final 09/21/20 Unknown Urine clean catch - Clean Catch Midstream Urine Culture - Final No growth. Quality Stroke Does the patient have a stroke diagnosis?: No VTE Prior VTE?: No VTE Risk Level:: Medical - moderate - high VTE Device Contraindication: N/A - Device Ordered VTE Drug Contraindication: N/A - Med Ordered
[2021-04-02] MEDS: NIFEdipine ER 60 MG TAB.ER.24 120 MG PO (08:27)
[2021-04-02] MEDS: glipiZIDE 5 MG TABLET 2.5 MG PO ×2 (08:28→17:34)
[2021-04-02] MEDS: Isosorbide Mononitrate 30 MG TAB.ER.24H PO (08:29)
[2021-04-02] MEDS: Aspirin 81 MG TAB.CHEW PO (08:29)
[2021-04-02] MEDS: Losartan Potassium 50 MG TABLET 100 MG PO (08:29)
[2021-04-02] MEDS: Spironolactone 25 MG TABLET 50 MG PO ×2 (08:29→17:34)
[2021-04-02] MEDS: hydrALAZINE HCl 50 MG TABLET PO ×3 (08:30→20:34)
[2021-04-02] MEDS: Sodium Ferric Gluconat/Sucrose 125 MG in 0.9 % Sodium Chloride 100 ML 100 MG IV (10:31)
--- NOTE | 2021-04-02 13:07 | MHC.CM.PN ---
EMR REVIEWED, PER CM DIRECTOR PT'S GUARDIAN/CONSERVATOR REMAINS TEMPORARY, NEW MED CERT COMPLETED AND SUBMITTED AND NEXT COURT DATE 04/12/2021.
[2021-04-02] MEDS: cefTRIAXone sodium 1 GM in 0.9 % Sodium Chloride 50 ML IV (13:53)
--- NOTE | 2021-04-02 14:08 | MHC.CM.PN ---
BAUTISTA CHECKED ON STATUS OF REFERRAL FOR [facility], JAYCE CHECKED W/REGIONAL AND REPORTED [facility] APPEARS OKAY, LIAISON REQUESTED VACCINE INFO OF FIRST SHOT AND PT RECEIVED MODERNA 03/23/21, [facility] IS WAITING FOR RESPONSE FROM [facility] TO DETERMINE IF THEY CAN GET HER SECOND DOSE D/T THEM HAVING ACCESS TO THE PFIZER VACCINE, CM DIRECTOR NOTIFIED TO SEE IF WE COULD FACILITATE AND REPORTED THAT IS POSSIBLE, HOSPITALIST AWARE. CM ATTEMPTERED TO CONTACT PT'S GUARDIAN/INDUSTRIAL TECH INSTRUCTOR AT 2:10PM [phone] TO NOTIFY, CM AWAITING CALL BACK.
--- NOTE | 2021-04-02 15:11 | MHC.CM.PN ---
CM RECEIVED CALL BACK FROM CRISTINA EDWARDS PT'S GUARDIAN/CONSERVATOR, CRISTINA IS AGREEABLE TO TRANSFER TO [facility] FOR TOMORROW 04/03/21, PER CRISTINA SHE WILL COME OUT TO VISIT PT AT SNF ON Friday04/04/21, PER CONVERSATION CM WILL CONTACT CRISTINA ONCE TRANSFER TIME IS SET UP W/SNF.
[2021-04-02 15:15] VITALS: BP 149/63; PULSE 62; RESP 16; TEMP 36.4; O2SAT 98
--- NOTE | 2021-04-02 17:08 | PM.DS ---
DS: Providers Provider Date of Service: 04/05/21 <DANISH Archibald - Last Filed: 04/05/21 10:12> Date of admission: 09/20/20 23:12 <Winifred Douglas NP - Last Filed: 04/04/21 12:07> Primary care physician: Russell Olivas MD <Winifred Douglas NP - Last Filed: 04/04/21 12:07> Admitting clinician: Bhavik Jesus <Winifred Douglas NP - Last Filed: 04/04/21 12:07> Attending physician on admission: Bhavik Jesus <Winifred Douglas NP - Last Filed: 04/04/21 12:07> Consults: 09/20/20 23:15 Consult to Cardiology Routine Consulting Provider: Ganesh Lantigua Reason for consultation: high troponin 09/21/20 15:41 Consult to Psychiatry Routine Consulting Provider: Lily Cisneros Reason for consultation: CAPACITY EVAL Has provider been notified: No 10/03/20 10:50 Consult to Neurology Routine Consulting Provider: Simon Tomlinson Reason for consultation: ? cva on admitting [facility] 10/20/20 16:08 Consult to Psychiatry Routine Consulting Provider: Andrea Villalpando Reason for consultation: neuro cognitive eval 10/30/20 16:19 Consult to Care Team Routine Comment: Reason for consultation: grief over loss of 11/13/20 15:54 Consult to Nephrology Routine Consulting Provider: Nicholas Olsen Reason for consultation: Evaluation for resistant hypertension on 4 Meds 12/17/20 18:31 Consult to Care Team Routine Comment: Reason for consultation: emotional support, long admission 02/03/21 08:20 Consult to Crisis Stat Reason for consultation: Depressed Has provider been notified: Yes 02/20/21 09:34 Consult to Nephrology Routine Consulting Provider: Michael Ivey Reason for consultation: Difficulty to control HTN Has provider been notified: No 02/26/21 20:41 Consult to Cardiology Routine Consulting Provider: Mohinder Walker Reason for consultation: chf Has provider been notified: No 02/27/21 07:45 Consult to Cardiology Routine Consulting Provider: [facility] Cardiovascular Services Reason for consultation: flash pulm edema 03/16/21 12:08 Consult to Care Team Routine Comment: Reason for consultation: emotional support, long admission, recent loss of Has provider been notified: Yes 03/25/21 12:12 Consult to Care Team Routine Comment: Reason for consultation: depression, feeling sad <Winifred Douglas NP - Last Filed: 04/04/21 12:07> Discharging clinician: Winifred Douglas <Winifred Douglas NP - Last Filed: 04/04/21 12:07> DS: Diagnosis Discharge Diagnosis (1) Vascular dementia without behavioral disturbance: Status: Acute <Winifred Douglas NP - Last Filed: 04/04/21 12:07> (2) HTN (hypertension): Status: Acute <Winifred Douglas NP - Last Filed: 04/04/21 12:07> (3) Clostridioides difficile infection: Status: Acute <Winifred Douglas NP - Last Filed: 04/04/21 12:07> (4) CHF (congestive heart failure): Status: Acute <Winifred Douglas NP - Last Filed: 04/04/21 12:07> (5) UTI (urinary tract infection): Status: Acute <Winifred Douglas NP - Last Filed: 04/04/21 12:07> (6) Elevated troponin: Status: Acute <Winifred Douglas NP - Last Filed: 04/04/21 12:07> DS: Medications Discharge Medications Home Medications: Home Medications Medication Instructions Recorded Confirmed enalapril maleate 20 mg tablet 20 mg PO BID 09/20/20 09/20/20 levothyroxine 75 mcg tablet 75 mcg PO DAILY 09/20/20 09/20/20 tramadol 50 mg tablet 50 mg PO TID PRN 09/20/20 09/20/20 Previous Rx's Medication Instructions Recorded aspirin 81 mg chewable tablet 81 mg PO DAILY #30 tab 10/23/20 atorvastatin 80 mg tablet 80 mg PO BEDTIME #30 tab 10/23/20 clonidine 0.2 mg/24 hr weekly 0.2 mg TRANSDERMAL Fr@1600 #4 ea 04/02/21 transdermal patch donepezil 5 mg tablet 5 mg PO BEDTIME #30 tab 04/02/21 doxazosin 2 mg tablet 6 mg PO BEDTIME #100 tab 04/02/21 glipizide 5 mg tablet 2.5 mg PO BIDWM #30 tab 08/16/21 hydralazine 50 mg tablet 50 mg PO TID #100 tab 04/02/21 isosorbide mononitrate 30 mg 30 mg PO DAILY #30 tab 04/02/21 tablet,extended release 24 hr losartan 50 mg tablet 100 mg PO DAILY #60 tab 04/02/21 nifedipine 60 mg tablet,extended 120 mg PO DAILY #60 tab 04/02/21 release 24 hr spironolactone 25 mg tablet 50 mg PO BID@0900,1800 #120 tab 04/02/21 <Winifred Douglas NP - Last Filed: 04/04/21 12:07> DS: Summary Hospital Course Hospital Course: Hp as per admitting provider on 09/20/20 85-year-old female with a past medical history of hypertension, hyperlipidemia, diabetes, hypothyroidism, CAD status post stent presented to the hospital with a chief complaint of fall. Most of the history obtained from the records and ER physician.? Patient is forgetful. Per ER physician he was reported that patient had a fall at home and had mild confusion.? Also mentioned that EMS was called in because of the fall of her who was then taken to the [facility].? To the EMS people patient appeared confused.? And was unable to reach the patient's son.? Per EMS patient's house conditions were poor. At the time of my interview patient denies any chest pain palpitations lightheadedness or dizziness.? Denies any headaches numbness tingling.? Denies any back pain or hip pain.? Patient reports to me that she had a fall and couple days later her had a fall.? Denies any symptoms.? Mentioned that she worked for [employer] for 30 years.? When asked about the president she knows the new and old present but unable to recall than names, also unable to recall the ER. Mentions that she has diabetes and she has coronary artery disease with stent placed in the past. Denies any GI or symptoms. Review of all other systems is negative except mentioned above He ER course:? For ER team patient's CT head showed no acute findings.? CT C-spine is pending.? Urinalysis is pending.? Initial troponin was 39 followed by 59 followed by 63-EKG showed ST depression that are slightly more prominent in V3 V4 V5 V6 compared to the old EKG;? ER physician mentioned that he spoke with Dr. lantigua from?Cardiology-> who mentioned to you the patient aspirin, obtain echocardiogram in the morning, no need for heparin drip currently . Inpatient for over 196 days. She had multiple geriatric psych evaluations and MoCA forms completed during the inpatient stay. MRI consistent with vascular dementia (on aricept). She was found to lack capacity to make medical decisions and guardianship was pursued. Also, her had a fall just prior to the patient being admitted to [facility] and he was transferred to [facility] and Unfortunately there. She suffered an NSTEMI In September of 2020 she has a history of cardiac catheterization in 2019 with some stenosis noted, lad stent patent. she was treated with aspirin, statin and beta-derrek. At that time her blood pressure was noted to be significantly elevated. However it was on known if the patient had been taking her home medications. During this time patient was also found to have nighttime bradycardia and sinus pausesthere for her beta-derrek was stopped. Echocardiogram showed EF of 55-60% with no evidence of regional wall motion abnormalities UTI. She was treated with IV rocephin from 03/29-04/03. Resistant hypertension. Blood pressure has been very difficult to control during this admission. She has been followed by Cardiology and Nephrology and has had multiple medication regimens to try and control her blood pressure more effectively. At this point her blood pressure does seem to be better managed on nifedipine, isosorbide, losartan, hydralazine, doxazosin, spironolactone and clonidine. Patient can follow up with nephrology if her blood pressure remains and issue. CDIFF colitis. Positive 11/24/20. Treated with oral vancomycin with resolution of diarrhea. Over the last few weeks she has been medically stable (other than adjusting her blood pressure medications), depression waxing and waning <Winifred Douglas NP - Last Filed: 04/04/21 12:07> Time Spent with Patient Time attestation: Total time spent providing and/or coordinating discharge services: <Winifred Douglas NP - Last Filed: 04/04/21 12:07> Discharge coordination time: Greater than 30 minutes <DANISH Archibald - Last Filed: 04/05/21 10:12> Quality: Stroke Does the patient have a stroke diagnosis?: No <DANISH Archibald - Last Filed: 04/05/21 10:12> Physical Exam Vital Signs: Vital Signs: Last Vital Signs Temp 97.6 F 04/02/21 15:15 Pulse 62 04/02/21 15:15 Resp 16 04/02/21 15:15 BP 149/63 H 04/02/21 15:15 Pulse Ox 98 04/02/21 15:15 Body Mass Index 20.1 <Winifred Douglas NP - Last Filed: 04/04/21 12:07> Appearing in no acute distress head is normocephalic atraumatic eyes pupils are PERRLA sclera is anicteric mouth throat mucous membranes are intact and moist neck is supple no lymphadenopathy, no JVD noted lung sounds are clear to auscultation heart regular rate rhythm, clear S1, S2 positive bowel sounds, abdomen is soft, nontender neuro patient is alert, confused, no focal deficits <Winifred Douglas NP - Last Filed: 04/04/21 12:07> Const: General: healthy appearing, comfortable, no acute distress, alert and awake <DANISH Archibald - Last Filed: 04/05/21 10:12> Nutritional Appearance: well nourished <DANISH Archibald - Last Filed: 04/05/21 10:12> HENMT: Head: Yes normocephalic and Yes atraumatic <DANISH Archibald - Last Filed: 04/05/21 10:12> Eyes: Sclerae: sclerae normal <DANISH Archibald - Last Filed: 04/05/21 10:12> Chest: Chest palpation & inspection: normal inspection of the chest <DANISH Archibald - Last Filed: 04/05/21 10:12> Resp: Effort & Inspection: normal respiratory effort and no respiratory distress <DANISH Archibald - Last Filed: 04/05/21 10:12> GI: Palpation (GI): Soft to palpation and nontender <DANISH Archibald - Last Filed: 04/05/21 10:12> Neuro: Cranial nerves: Yes CN's II-XII intact bilaterally and Yes Bilaterally intact EOM present <DANISH Archibald - Last Filed: 04/05/21 10:12> DS: Data Data Completed and Pending Labs on day of discharge: Laboratory Results - last 24 hr 04/02/21 07:23 POC Glucose 152 H <Winifred Douglas NP - Last Filed: 04/04/21 12:07> Discharge Plan Discharge Patient Disposition: Xfer LTC <Winifred Douglas NP - Last Filed: 04/04/21 12:07> Discharge Diagnosis: Resistant hypertension depression NSTEMI HFpEF cdiff colitis <Winifred Douglas NP - Last Filed: 04/04/21 12:07> Resistant hypertension depression NSTEMI HFpEF cdiff colitis <DANISH Archibald - Last Filed: 04/05/21 10:12> Referrals: Russell Olivas MD [Primary Care Provider] - Michael Ivey MD [Physician] - None <Winifred Douglas NP - Last Filed: 04/04/21 12:07> Discharge Medications: New atorvastatin 80 mg Tablet 80 mg PO BEDTIME Qty: 30 RF: 0 aspirin 81 mg Tablet,Chewable 81 mg PO DAILY Qty: 30 RF: 0 losartan 50 mg Tablet 100 mg PO DAILY Qty: 60 RF: 0 clonidine 0.2 mg/24 hr Patch Weekly 0.2 mg transdermal Fr@1600 Qty: 4 RF: 0 isosorbide mononitrate 30 mg Tablet Extended Release 24 Hr 30 mg PO DAILY Qty: 30 RF: 0 spironolactone 25 mg Tablet 50 mg PO BID@0900,1800 Qty: 120 RF: 0 nifedipine 60 mg Tablet Extended Release 24hr 120 mg PO DAILY Qty: 60 RF: 0 hydralazine 50 mg Tablet 50 mg PO TID Qty: 100 RF: 0 doxazosin 2 mg Tablet 6 mg PO BEDTIME Qty: 100 RF: 0 donepezil 5 mg Tablet 5 mg PO BEDTIME Qty: 30 RF: 0 glipizide 5 mg Tablet 2.5 mg PO BIDWM Qty: 30 RF: 0 Continued enalapril maleate 20 mg Tablet 20 mg PO BID RF: 0 tramadol 50 mg Tablet 50 mg PO TID PRN (Reason: Pain (Scale Score 4-6)) RF: 0 levothyroxine 75 mcg Tablet 75 mcg PO DAILY RF: 0 Discontinued metformin 500 mg Tablet 500 mg PO BID RF: 0 metoprolol succinate 50 mg Tablet Extended Release 24 Hr 50 mg PO DAILY RF: 0 hydralazine 25 mg Tablet 25 mg PO BID RF: 0 amlodipine 10 mg Tablet 10 mg PO DAILY RF: 0 glimepiride 4 mg Tablet 4 mg PO BID RF: 0 hydrochlorothiazide 25 mg Tablet 25 mg PO DAILY RF: 0 <Winifred Douglas NP - Last Filed: 04/04/21 12:07> Discharge Orders: Discharge Order (Routine); Ordered 04/05/21 Ordered By: Negrita Mccoy <Winifred Douglas NP - Last Filed: 04/04/21 12:07> Diet: advance to usual diet <Winifred Douglas NP - Last Filed: 04/04/21 12:07> advance to usual diet <DANISH Archibald - Last Filed: 04/05/21 10:12> Activity on Discharge: As tolerated <Winifred Douglas NP - Last Filed: 04/04/21 12:07> As tolerated <DANISH Archibald - Last Filed: 04/05/21 10:12> Stand Alone Forms: Patient Portal Discharge page <Winifred Douglas NP - Last Filed: 04/04/21 12:07> Care Plan Goals: Continue blood pressure management <Winifred Douglas NP - Last Filed: 04/04/21 12:07> Health Concerns: Resistant hypertension Depression NSTEMI HFpEF CDIFF colitis <Winifred Douglas NP - Last Filed: 04/04/21 12:07> Plan of Treatment: Call to schedule follow up appointment with the deaf and hard of hearing teacher to monitor your blood pressure Follow up with primary care provider as needed <Winifred Douglas NP - Last Filed: 04/04/21 12:07> Assessment: See discharge summary <Winifred Douglas NP - Last Filed: 04/04/21 12:07>
[2021-04-02] MEDS: Donepezil HCl 5 MG TABLET PO (20:34)
[2021-04-02] MEDS: Doxazosin Mesylate 2 MG TABLET 6 MG PO (20:34)
[2021-04-02] MEDS: Atorvastatin Calcium 80 MG TABLET PO (20:34)
[2021-04-02 23:28] VITALS: BP 164/85; PULSE 68; RESP 18; TEMP 36.2; O2SAT 97
[2021-04-03] VITALS (10 sets, daily range): BP systolic 149–193; BP diastolic 62–94; PULSE 61–66; RESP 16–18; TEMP 36.2–37; O2SAT 96–97
[2021-04-03] MEDS: Levothyroxine Sodium 75 MCG TABLET PO (06:31)
[2021-04-03] MEDS: Spironolactone 25 MG TABLET 50 MG PO ×2 (08:23→18:38)
[2021-04-03] MEDS: Aspirin 81 MG TAB.CHEW PO (08:23)
[2021-04-03] MEDS: Losartan Potassium 50 MG TABLET 100 MG PO (08:23)
[2021-04-03] MEDS: Isosorbide Mononitrate 30 MG TAB.ER.24H PO (08:24)
[2021-04-03] MEDS: hydrALAZINE HCl 50 MG TABLET PO ×3 (08:24→20:25)
[2021-04-03] MEDS: NIFEdipine ER 60 MG TAB.ER.24 120 MG PO (08:25)
[2021-04-03] MEDS: glipiZIDE 5 MG TABLET 2.5 MG PO ×2 (08:26→18:37)
--- NOTE | 2021-04-03 08:33 | MHC.CM.PN ---
CM ATTEMPTED TO CONTACT PTS GUARDIAN/CONSERVATOR CRISTINA EDWARDS AT 0819 04/03/2021 TO REVIEW IMM, VOICEMAIL FULL HOWEVER PER CONVERSATION ON 04/02/2021 CRISTINA IS AGREEABLE TO TRANSFER AND WILL MAIL IMM VIA CERTIFIED MAIL.
[2021-04-03 08:52] LABS: COVID-19 Test Negative (Negative)
--- NOTE | 2021-04-03 12:36 | MHC.CM.PN ---
CM AWAITING CONFIRMATION FROM SNF TO TRANSFER PT TODAY, PER LIAISON AN UNEXPECTED STATE SURVEY HAS CAUSED DELAY AND WILL CONTACT CM SOON SHE GETS A RESPONSE FROM DON/TEAM.
--- NOTE | 2021-04-03 13:39 | PM.IMPN ---
Progress Note: A&P (1) HTN (hypertension): Status: Acute Assessment and Plan: 85yo F with HTN, HLD, DM2, hypothyroidism, CAD s/p PCI. initially admitted with falls, elevated troponin; disposition complicated by cognitive impairment requiring guardianship on 02/26/21 developed hypoxia, dyspnea -> CHF exacerbation with NSTEMI on 03/02/21 had 2 episodes of junctional bradycardia/sinus pause associated with BM and vomiting # Resistant HTN.?Much better control. Renal artery stenosis not seen on CT angio ON Nifedipine 120 daily ?? ? Imdur 30 daily ?? ? Losartan 100mg ?? ? Hydralazine 50 TID ?? ? Aldactone 50 BID ?? ? Dozazosin 6mg hs clonidine? patch to 0.2 mg ?? ? follow BP closely # acute grief reaction/depression CARE team following Covid vaccination #1 on 03/23/21, 04/12 would be day 21 for 2nd shot # cognitive impairment evaluated by psychiatry. 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 No further episodes - likely vasovagal; Cardiology concurs.? 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 low risk ambulation Full code dispo - waiting placement/guardianship Subjective Subjective Date of Service: 04/03/21 Interval History: Follow up hypertension, dementia doing well. no pain sitting up in the chair Physical Exam Vital Signs: Vital Signs: Last Vital Signs Temp 97.5 F 04/03/21 08:00 Pulse 65 04/03/21 08:25 Resp 18 04/03/21 08:00 BP 193/94 H 04/03/21 08:25 Pulse Ox 96 04/03/21 08:00 Body Mass Index 20.1 Appearing in no acute distress lung sounds are clear to auscultation heart regular rate rhythm, clear S1, S2 positive bowel sounds, abdomen is soft, nontender neuro patient is alert x3, no focal deficits Objective Data Current Medications Generic Name Dose Route Start Last Admin Trade Name Sachaq PRN Reason Stop Dose Admin Aspirin 81 mg 02/28/21 09:00 04/03/21 08:23 Aspirin 81 Mg Tab.Chew PO 81 mg DAILY RAGHAVENDRA Administration Atorvastatin Calcium 80 mg 02/27/21 08:00 04/02/21 20:34 Atorvastatin Calcium 80 Mg Tablet PO 80 mg BEDTIME RAGHAVENDRA Administration Clonidine 0.2 mg 03/30/21 16:00 03/30/21 15:18 Clonidine 0.2 Mg Patch.Tdwk TRANSDERMA 0.2 mg Fr@1600 RAGHAVENDRA Administration Protocol Donepezil HCl 5 mg 03/26/21 21:00 04/02/21 20:34 Donepezil Hcl 5 Mg Tablet PO 5 mg BEDTIME RAGHAVENDRA Administration Doxazosin Mesylate 6 mg 03/25/21 21:00 04/02/21 20:34 Doxazosin Mesylate 2 Mg Tablet PO 6 mg BEDTIME RAGHAVENDRA Administration Protocol Glipizide 2.5 mg 02/24/21 17:00 04/03/21 08:26 Glipizide 5 Mg Tablet PO 2.5 mg BIDWM RAGHAVENDRA Administration Guaifenesin/Dextromethorphan 5 ml 03/02/21 23:01 Guaifenesin Dm 100/10/5 Ml 5 Ml Syrup PO Q6H PRN cough Hydralazine HCl 50 mg 03/08/21 15:00 04/03/21 08:24 Hydralazine Hcl 50 Mg Tablet PO 50 mg TID RAGHAVENDRA Administration Protocol Isosorbide Mononitrate 30 mg 03/04/21 14:30 04/03/21 08:24 Isosorbide Mononitrate 30 Mg Tab.Er.24h PO 30 mg DAILY RAGHAVENDRA Administration Protocol Levothyroxine Sodium 75 mcg 01/13/21 09:00 04/03/21 06:31 Levothyroxine Sodium 75 Mcg Tablet PO 75 mcg DAILY@0600 RAGHAVENDRA Administration Losartan Potassium 100 mg 03/08/21 09:00 04/03/21 08:23 Losartan Potassium 50 Mg Tablet PO 100 mg DAILY RAGHAVENDRA Administration Protocol Nifedipine 120 mg 02/13/21 09:00 04/03/21 08:25 Nifedipine Er 60 Mg Tab.Er.24 PO 120 mg DAILY [facility] Administration Protocol Ondansetron HCl 4 mg 03/02/21 14:26 03/02/21 12:30 Ondansetron Hcl 4 Mg/2 Ml Vial IVPUSH 4 mg Q4H PRN Administration nausea/vomiting Spironolactone 50 mg 03/26/21 18:00 04/03/21 08:23 Spironolactone 25 Mg Tablet PO 50 mg BID@0900,1800 [facility] Administration Protocol Labs CBC & Chem 7: 04/01/21 08:01 04/01/21 09:08 Labs: Laboratory Results - last 24 hr 04/03/21 Unknown COVID-19 (MILA) Negative COVID-19 Clin Com See Note Microbiology Microbiology Results: Microbiology 03/27/21 Unknown Urine clean catch - Urine rich top Urine Culture - Final Escherichia coli 11/24/20 08:18 Stool Stool Culture - Final 09/21/20 Unknown Urine clean catch - Clean Catch Midstream Urine Culture - Final No growth. Quality Stroke Does the patient have a stroke diagnosis?: No VTE Prior VTE?: No VTE Risk Level:: Medical - moderate - high VTE Device Contraindication: N/A - Device Ordered VTE Drug Contraindication: N/A - Med Ordered
[2021-04-03] MEDS: Doxazosin Mesylate 2 MG TABLET 6 MG PO (20:23)
[2021-04-03] MEDS: Atorvastatin Calcium 80 MG TABLET PO (20:23)
[2021-04-03] MEDS: Donepezil HCl 5 MG TABLET PO (20:25)
[2021-04-04] VITALS (7 sets, daily range): BP systolic 156–179; BP diastolic 75–82; PULSE 65–70; RESP 16–19; TEMP 36.3–36.5; O2SAT 98
[2021-04-04] MEDS: Levothyroxine Sodium 75 MCG TABLET PO (06:53)
[2021-04-04] MEDS: glipiZIDE 5 MG TABLET 2.5 MG PO ×2 (08:15→17:39)
[2021-04-04] MEDS: Aspirin 81 MG TAB.CHEW PO (08:16)
[2021-04-04] MEDS: Spironolactone 25 MG TABLET 50 MG PO ×2 (08:16→17:39)
[2021-04-04] MEDS: NIFEdipine ER 60 MG TAB.ER.24 120 MG PO (08:16)
[2021-04-04] MEDS: Losartan Potassium 50 MG TABLET 100 MG PO (08:16)
[2021-04-04] MEDS: hydrALAZINE HCl 50 MG TABLET PO ×3 (08:16→20:10)
[2021-04-04] MEDS: Isosorbide Mononitrate 30 MG TAB.ER.24H PO (08:17)
--- NOTE | 2021-04-04 09:02 | MHC.CM.PN ---
IMM 04/04/21, CM RECEIVED MESSAGE FROM [facility] REGARDING BED AVAILABILITY, PER LIAISON PT WILL NEED A PRIVATE ROOM D/T VACCINE STATUS AND NO PRIVATE ROOM IS AVAILABLE UNTIL TOMORROW 04/04/21, CM WILL CONFIRM A TRANSFER TIME W/LIAISON. CM ATTEMPTED TO CONTACT PT'S GUARDIAN CRISTINA EDWARDS AT 8:58AM [phone] W/UPDATE AND TO REVIEW IMM, NO ANSWER, MESSAGE LEFT AND NEW IMM TO BE SENT VIA CERTIFIED MAIL.
--- NOTE | 2021-04-04 11:03 | P.PNIM_ITS ---
Progress Note: A&P (1) HTN (hypertension): Status: Acute Assessment and Plan: 85yo F with HTN, HLD, DM2, hypothyroidism, CAD s/p PCI. initially admitted with falls, elevated troponin; disposition complicated by cognitive impairment requiring guardianship on 02/26/21 developed hypoxia, dyspnea -> CHF exacerbation with NSTEMI on 03/02/21 had 2 episodes of junctional bradycardia/sinus pause associated with BM and vomiting # Resistant HTN.?Much better control. Renal artery stenosis not seen on CT angio ON Nifedipine 120 daily ?? ? Imdur 30 daily ?? ? Losartan 100mg ?? ? Hydralazine 50 TID ?? ? Aldactone 50 BID ?? ? Dozazosin 6mg hs ?? ? clonidine? patch to 0.2 mg ?? ? follow BP closely # acute grief reaction/depression CARE team following Covid vaccination #1 on 03/23/21, 04/12 would be day 21 for 2nd shot # cognitive impairment evaluated by psychiatry. 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 No further episodes - likely vasovagal; Cardiology concurs.? 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 low risk ambulation Full code dispo -tx to CARE [facility] tomorrow Subjective Subjective Date of Service: 04/04/21 Interval History: Follow up hypertension better blood pressure control Physical Exam Vital Signs: Vital Signs: Last Vital Signs Temp 97.3 F 04/04/21 08:00 Pulse 65 04/04/21 08:17 Resp 19 04/04/21 08:00 BP 179/82 H 04/04/21 08:17 Pulse Ox 98 04/04/21 08:00 Body Mass Index 20.1 Appearing in no acute distress lung sounds are clear to auscultation heart regular rate rhythm, clear S1, S2 positive bowel sounds, abdomen is soft, nontender neuro patient is alert x3, no focal deficits Objective Data Current Medications Generic Name Dose Route Start Last Admin Trade Name Sachaq PRN Reason Stop Dose Admin Aspirin 81 mg 02/28/21 09:00 04/04/21 08:16 Aspirin 81 Mg Tab.Chew PO 81 mg DAILY RAGHAVENDRA Administration Atorvastatin Calcium 80 mg 02/27/21 08:00 04/03/21 20:23 Atorvastatin Calcium 80 Mg Tablet PO 80 mg BEDTIME RAGHAVENDRA Administration Clonidine 0.2 mg 03/30/21 16:00 03/30/21 15:18 Clonidine 0.2 Mg Patch.Tdwk TRANSDERMA 0.2 mg Fr@1600 RAGHAVENDRA Administration Protocol Donepezil HCl 5 mg 03/26/21 21:00 04/03/21 20:25 Donepezil Hcl 5 Mg Tablet PO 5 mg BEDTIME RAGHAVENDRA Administration Doxazosin Mesylate 6 mg 03/25/21 21:00 04/03/21 20:23 Doxazosin Mesylate 2 Mg Tablet PO 6 mg BEDTIME RAGHAVENDRA Administration Protocol Glipizide 2.5 mg 02/24/21 17:00 04/04/21 08:15 Glipizide 5 Mg Tablet PO 2.5 mg BIDWM RAGHAVENDRA Administration Guaifenesin/Dextromethorphan 5 ml 03/02/21 23:01 Guaifenesin Dm 100/10/5 Ml 5 Ml Syrup PO Q6H PRN cough Hydralazine HCl 50 mg 03/08/21 15:00 04/04/21 08:16 Hydralazine Hcl 50 Mg Tablet PO 50 mg TID RAGHAVENDRA Administration Protocol Isosorbide Mononitrate 30 mg 03/04/21 14:30 04/04/21 08:17 Isosorbide Mononitrate 30 Mg Tab.Er.24h PO 30 mg DAILY RAGHAVENDRA Administration Protocol Levothyroxine Sodium 75 mcg 01/13/21 09:00 04/04/21 06:53 Levothyroxine Sodium 75 Mcg Tablet PO 75 mcg DAILY@0600 RAGHAVENDRA Administration Losartan Potassium 100 mg 03/08/21 09:00 04/04/21 08:16 Losartan Potassium 50 Mg Tablet PO 100 mg DAILY RAGHAVENDRA Administration Protocol Nifedipine 120 mg 02/13/21 09:00 04/04/21 08:16 Nifedipine Er 60 Mg Tab.Er.24 PO 120 mg DAILY [facility] Administration Protocol Ondansetron HCl 4 mg 03/02/21 14:26 03/02/21 12:30 Ondansetron Hcl 4 Mg/2 Ml Vial IVPUSH 4 mg Q4H PRN Administration nausea/vomiting Spironolactone 50 mg 03/26/21 18:00 04/04/21 08:16 Spironolactone 25 Mg Tablet PO 50 mg BID@0900,1800 [facility] Administration Protocol Labs CBC & Chem 7: 04/01/21 08:01 04/01/21 09:08 Microbiology Microbiology Results: Microbiology 03/27/21 Unknown Urine clean catch - Urine rich top Urine Culture - Final Escherichia coli 11/24/20 08:18 Stool Stool Culture - Final 09/21/20 Unknown Urine clean catch - Clean Catch Midstream Urine Culture - Final No growth. Quality Stroke Does the patient have a stroke diagnosis?: No VTE Prior VTE?: No VTE Risk Level:: Medical - moderate - high VTE Device Contraindication: N/A - Device Ordered VTE Drug Contraindication: N/A - Med Ordered
--- NOTE | 2021-04-04 11:14 | PC.NURSE ---
Pt Iv coming out and therefore removed. Attending provider Winifred Douglas made aware, notified this nurse that patient may be left without IV access to due absence of IV medications orders and pending discharge
--- NOTE | 2021-04-04 14:17 | MHC.CM.PN ---
IMM 04/04/21, CM MET W/PT IN LENGTH REGARDING HER D/C PLAN, PT NOT THRILLED HOWEVER AGREEABLE TO PLAN OF DISCHARGING TO [facility] IN THE NEXT 1-2 DAYS AND IS HOPEFULL SHE WILL EVENTUALLY BE ABLE TO TRANSITION TO ASSISTED LIVING SHE CANNOT RETURN HOME, UNCLEAR IF PT WILL RETAIN INFO D/T TO HER ASKING THIS CM WHERE SHE IS GOING ABOUT 10 TIMES W/IN THE 45MIN CM HAS SPENT W/PT TODAY. D/C PLAN: [facility], [facility] TRANSPORT.
[2021-04-04] MEDS: Atorvastatin Calcium 80 MG TABLET PO (20:10)
[2021-04-04] MEDS: Donepezil HCl 5 MG TABLET PO (20:10)
[2021-04-04] MEDS: Doxazosin Mesylate 2 MG TABLET 6 MG PO (20:10)
[2021-04-05] VITALS: BP 145/63; PULSE 58; RESP 14; TEMP 36.4; O2SAT 94
[2021-04-05] MEDS: Levothyroxine Sodium 75 MCG TABLET PO (05:36)
[2021-04-05 07:56] VITALS: BP 175/71; PULSE 65; RESP 18; TEMP 36.2; O2SAT 96
[2021-04-05] MEDS: glipiZIDE 5 MG TABLET 2.5 MG PO (08:35)
[2021-04-05] MEDS: Aspirin 81 MG TAB.CHEW PO (08:35)
[2021-04-05 08:36] VITALS: BP 175/71; PULSE 65
[2021-04-05] MEDS: Spironolactone 25 MG TABLET 50 MG PO (08:36)
[2021-04-05 08:37] VITALS: BP 175/71; PULSE 65
[2021-04-05] MEDS: Losartan Potassium 50 MG TABLET 100 MG PO (08:37)
[2021-04-05] MEDS: NIFEdipine ER 60 MG TAB.ER.24 120 MG PO (08:37)
[2021-04-05] MEDS: Isosorbide Mononitrate 30 MG TAB.ER.24H PO (08:37)
[2021-04-05] MEDS: hydrALAZINE HCl 50 MG TABLET PO (08:37)
--- NOTE | 2021-04-05 14:56 | MHC.CM.PN ---
PT DISCHARGED TODAY TO [facility] FOR [facility], [facility]SP[facility], PT'S GUARDIAN/CONSERVATOR NOTIFIED VIA EMAIL AT [email or web address] AT 11:28AM. MDS COMPLETED AND SENT TO SNF VIA SWYF,D/C SUMMARY, MDS AND [employer] [facility] FORM FAXED TO [facility].
== END 2021-04-05 11:15 | DRG 91 ==
LOC: HO.ED 23:17 → HO.EDOVER 09-21 01:27 → HO.IMC 09-21 14:41 → HO.S3 11-29 08:52
PROVIDERS: Emergency Medicine; Family Medicine; Hospitalist; Internal Medicine; Internal Medicine Nephrology; Nurse Practitioner Acute Care; Psychiatry & Neurology Psychiatry; Student in an Organized Health Care Education/Training Program; Admitting Provider Hospitalist; Emergency Provider Emergency Medicine Emergency Medical Services; PCP Internal Medicine; Visit Provider Family Medicine
DX: G92 Toxic encephalopathy (principal); I21.4 Non-ST elevation (NSTEMI) myocardial infarction; I50.33 Acute on chronic diastolic (congestive) heart failure; J96.01 Acute respiratory failure with hypoxia; N39.0 Urinary tract infection, site not specified; F03.91 Unspecified dementia, unspecified severity, with behavioral disturbance; G91.0 Communicating hydrocephalus; A04.72 Enterocolitis due to Clostridium difficile, not specified as recurrent; I13.0 Hypertensive heart and chronic kidney disease with heart failure and stage 1 through stage 4 chronic kidney disease, or unspecified chronic kidney disease; E03.9 Hypothyroidism, unspecified; I25.10 Atherosclerotic heart disease of native coronary artery without angina pectoris; I35.0 Nonrheumatic aortic (valve) stenosis; Z95.1 Presence of aortocoronary bypass graft; Z91.81 History of falling; F43.22 Adjustment disorder with anxiety; E11.649 Type 2 diabetes mellitus with hypoglycemia without coma; R00.1 Bradycardia, unspecified; D63.1 Anemia in chronic kidney disease; E11.22 Type 2 diabetes mellitus with diabetic chronic kidney disease; I70.1 Atherosclerosis of renal artery; I49.5 Sick sinus syndrome; N18.30 Chronic kidney disease, stage 3 unspecified; Z88.0 Allergy status to penicillin; Z88.2 Allergy status to sulfonamides; Z79.890 Hormone replacement therapy; Z79.82 Long term (current) use of aspirin; Z79.899 Other long term (current) drug therapy
CPT/HCPCS: 36415; 70450; 70551; 71045; 71275; 74174; 74185; 76775; 80048; 80061; 81001; 81003; 82043; 82247; 82272; 82565; 82607; 82728; 82746; 82947; 83036; 83540; 83605; 83615; 83735; 83880; 84156; 84443; 84484; 85025; 85027; 85045; 85610; 85730; 86780; 86850; 86900; 86901; 86923; 87045; 87046; 87086; 87088; 87186; 87324; 87449; 87493; 87635; 93005; 93306; 93975; 94799; 97110; 97116; 97163; 97166; 97530; 97535; 99285; A9585; C1758; J0696; J1650; J1940; J2270; J2405; J2916; P9016; Q9967

== ENCOUNTER 2021-10-19 11:24 | Emergency (ER) | payer MEDICARE, OTHER, SELFPAY ==
[2021-10-19 11:27] VITALS: BP 152/91; BP 198/71; PULSE 64; PULSE 96; RESP 18; TEMP 36.7; O2SAT 97; O2SAT 98; BMI 20.2
--- NOTE | 2021-10-19 11:30 | ECG_ITS ---
Test Reason : HYPOTENSIVE Blood Pressure : / mmHG Vent. Rate : 054 BPM Atrial Rate : 054 BPM P-R Int : 198 ms QRS Dur : 102 ms QT Int : 448 ms P-R-T Axes : 068 -20 077 degrees QTc Int : 424 ms Sinus bradycardia Left ventricular hypertrophy with repolarization abnormality ( R in aVL , [place] product ) Cannot rule out Septal infarct , age undetermined Abnormal ECG When compared with ECG of 02-MAR-2021 12:44, Minimal criteria for Septal infarct are now Present ST no longer depressed in Anterior leads Nonspecific T wave abnormality, improved in Anterior leads Referred By: Sweta Horowitz Electronically Signed By:Mohinder Walker
--- NOTE | 2021-10-19 11:32 | ED_ITS ---
HPI - Psych General Chief Complaint: Psychiatric Symptoms Stated Complaint: section 12 Time Seen by Provider: 10/19/21 11:29 Source: patient and old records reviewed Mode of arrival: EMS Limitations: no limitations History of Present Illness MD complaint: other (section 12 from [facility] for increased aggression and behaviors to staff) Onset (ago): week(s) (6) Duration: getting worse History of same: Yes Relieving factors: none Exacerbating factors: none Associated psychiatric symptoms: other (agitation aggressive behaviors) Associated symptoms: denies other symptoms Treatments prior to arrival: none and placed on mental health hold Related Data Home Medications Medication Instructions Recorded Confirmed levothyroxine 75 mcg tablet 75 mcg PO DAILY 09/20/20 10/19/21 ergocalciferol (vitamin D2) 1,250 1,250 mcg PO QMONTH 10/19/21 10/19/21 mcg (50,000 unit) capsule gabapentin 100 mg capsule 1 cap PO TID 10/19/21 10/19/21 glipizide 5 mg tablet 2.5 mg PO DAILY@1700 10/19/21 10/19/21 glipizide 5 mg tablet 7.5 mg PO DAILY@0730 10/19/21 10/19/21 hydralazine 25 mg tablet 25 mg PO Q8H PRN 10/19/21 10/19/21 Previous Rx's Medication Instructions Recorded aspirin 81 mg chewable tablet 81 mg PO DAILY #30 tab 10/23/20 atorvastatin 80 mg tablet 80 mg PO BEDTIME #30 tab 10/23/20 clonidine 0.2 mg/24 hr weekly 0.2 mg TRANSDERMAL Fr@1600 #4 ea 04/02/21 transdermal patch donepezil 5 mg tablet 5 mg PO BEDTIME #30 tab 04/02/21 doxazosin 2 mg tablet 6 mg PO BEDTIME #100 tab 04/02/21 hydralazine 50 mg tablet 50 mg PO TID #100 tab 04/02/21 isosorbide mononitrate 30 mg 30 mg PO DAILY #30 tab 04/02/21 tablet,extended release 24 hr nifedipine 60 mg tablet,extended 120 mg PO DAILY #60 tab 04/02/21 release 24 hr Allergies Allergy/AdvReac Type Severity Reaction Status Date / Time Penicillins [PCN] Allergy Mild HIVES Verified 09/26/20 20:26 ciprofloxacin [Cipro] Allergy Unknown Itching Verified 09/26/20 20:26 penicillin V Allergy Unknown Unknown Verified 09/26/20 20:26 Sulfa (Sulfonamide Allergy Unknown Unknown Verified 09/26/20 20:26 Antibiotics) Review of Systems Review of Systems: Constitutional : No Fever, No Chills ENT/Mouth : No Ear Pain, No Nasal Congestion, No sore throat Eyes: No Eye Pain, No Swelling, No Redness Cardiovascular : No Chest Pain, No SOB Respiratory : No Cough, No Sputum, No Dyspnea Gastrointestinal : No Nausea, No Vomiting, No Diarrhea, No Hematochezia, No Melena Genitourinary : No Dysuria, No Urinary Frequency, No Hematuria Musculoskeletal : No Myalgias Skin : No Skin Lesions, No rash Neuro : No Weakness, No Numbness, No Paresthesias, No Dizziness, No Headache Psych :no Anxiety, no Depression, no SI/HI Heme/Lymph: No Lymphadenopathy Endocrine : No Polyuria, No Polydipsia All other systems reviewed and are negative [facility] Past Medical History Medical History Abnormal ECG Atherosclerotic cardiovascular disease Bradycardia CHF (congestive heart failure) Clostridioides difficile infection Communicating hydrocephalus Diabetes Elevated troponin Fall HTN (hypertension) Neurocognitive disorder Non-rheumatic aortic stenosis Social History Social History (Updated 10/19/21 @ 12:17 by Sweta Horowitz DO) Household Members: Spouse Housing: Unknown / Unable to assess Unable to assess alcohol history related to: Unknown Alcohol intake: never Patient Tobacco Use Status: Never used Tobacco Advance Directives: No Advance Directives Information Provided: Yes service: No Current occupational status: retired Physical Exam Vital Signs: Vital Signs: Last Vital Signs Temp 97.6 F 10/19/21 13:41 Pulse 66 10/19/21 13:41 Resp 12 10/19/21 13:41 BP 153/62 H 10/19/21 13:41 Pulse Ox 97 10/19/21 13:41 BMI result Body Mass Index 20.2 Appearance: Alert. Oriented X3. No acute distress. calm and cooperative very pleasant states she is happy at [facility] Eyes: Pupils equal, round and reactive to light. ENT: Pharynx normal. Neck: Normal inspection. Neck supple. CVS: Normal heart rate and rhythm. Pulses normal. Respiratory: No respiratory distress. Breath sounds normal. Abdomen: Soft and non-tender. Skin: Skin warm and dry. Normal skin color. Normal skin turgor. Extremities: No lower extremity edema. No calf ttp Neuro: Oriented X 3. No motor deficit. No sensory deficit. CN2-12 intact Course Course Course Narrative: Physician observation started at 324pm. Patient placed in physician observation because the patient needed more time for CARE to evaluate the need for psych admission. At the time observation was started the patient's vitals were stable, patient is alert and oriented, Neuro: nonfocal, CV RRR, Lungs clear urine pending MDM - Psych MDM Narrative Medical decision making narrative: 86 yo female with hx of dementia, HTN, UTI sent for aggressive behaviors will need medical clearance this is not a new issue for patient I do not think she needs head CT - will obtain ua/labs and consult CARE team Lab Data Result diagrams: 10/19/21 12:18 10/19/21 12:18 Labs: Lab Results 10/19/21 10/19/21 10/19/21 Range/Units 12:18 12:18 12:18 WBC 6.7 (4.8-10.8) X10*3/uL RBC 2.93 L (4.20-5.50) X10*6/uL Hgb 9.1 L (12.0-16.0) g/dl Hct 28.5 L (37.0-47.0) % MCV 97.3 (80.0-98.0) fL MCH 31.1 (27.0-33.0) pg MCHC 31.9 (31.0-35.0) g/dl RDW 13.6 (11.0-16.0) % Plt Count 371 (160-400) X10*3/uL MPV 10.5 (9.4-12.3) fL Immature Gran % (Auto) 0.1 (0.0-0.4) % Neut % (Auto) 72.6 (45-73) % Lymph % (Auto) 15.3 L (20-40) % [place] % (Auto) 8.0 (2-11) % Eos % (Auto) 3.3 (0-4) % Baso % (Auto) 0.7 (0-2) % Lymph # (Auto) 1.0 L (1.2-4.9) X10*3/uL [place] # (Auto) 0.5 (0.1-1.2) X10*3/uL Eos # (Auto) 0.2 (0.0-0.4) X10*3/uL Baso # (Auto) 0.1 (0.0-0.2) X10*3/uL Abs Immat Gran (auto) 0.01 (0.00-0.03) X10*3/uL Absolute Neuts (auto) 4.9 (2.0-8.3) x10*3/uL Absolute Nucleated RBC 0.000 (0.0-0.012) X10*3/uL Nucleated RBC % (auto) 0.0 (0.0-0.2) /100WBC Sodium 141 (135-145) mmol/L Potassium 4.3 (3.3-5.1) mmol/L Chloride 106 (96-108) mmol/L Carbon Dioxide 30 H (22-29) mmol/L Anion Gap 9 L (12-20) BUN 19 H (9-16) mg/dL Creatinine 1.18 (0.5-1.4) mg/dL Estim Creat Clear Calc 29.1 Estimated GFR 44 POC Glucose (60-115) mg/dL Random Glucose 117 H (60-115) mg/dL Calcium 9.3 (8.4-10.2) mg/dL Magnesium 1.4 L* (1.6-2.6) mg/dL Total Bilirubin 0.4 (0.0-1.0) mg/dL Direct Bilirubin < 0.2 (0.0-0.5) mg/dL AST 27 (5-31) U/L ALT 17 (0-31) U/L Alkaline Phosphatase 92 (39-117) U/L Total Protein 5.5 L (6.5-8.0) g/dL Albumin 3.5 (3.5-5.0) g/dL TSH (0.32-4.0) uIU/mL COVID-19 (MILA) Negative (Negative) COVID-19 Clin Com See Note 10/19/21 10/19/21 Range/Units 12:18 13:33 WBC (4.8-10.8) X10*3/uL RBC (4.20-5.50) X10*6/uL Hgb (12.0-16.0) g/dl Hct (37.0-47.0) % MCV (80.0-98.0) fL MCH (27.0-33.0) pg MCHC (31.0-35.0) g/dl RDW (11.0-16.0) % Plt Count (160-400) X10*3/uL MPV (9.4-12.3) fL Immature Gran % (Auto) (0.0-0.4) % Neut % (Auto) (45-73) % Lymph % (Auto) (20-40) % [place] % (Auto) (2-11) % Eos % (Auto) (0-4) % Baso % (Auto) (0-2) % Lymph # (Auto) (1.2-4.9) X10*3/uL [place] # (Auto) (0.1-1.2) X10*3/uL Eos # (Auto) (0.0-0.4) X10*3/uL Baso # (Auto) (0.0-0.2) X10*3/uL Abs Immat Gran (auto) (0.00-0.03) X10*3/uL Absolute Neuts (auto) (2.0-8.3) x10*3/uL Absolute Nucleated RBC (0.0-0.012) X10*3/uL Nucleated RBC % (auto) (0.0-0.2) /100WBC Sodium (135-145) mmol/L Potassium (3.3-5.1) mmol/L Chloride (96-108) mmol/L Carbon Dioxide (22-29) mmol/L Anion Gap (12-20) BUN (9-16) mg/dL Creatinine (0.5-1.4) mg/dL Estim Creat Clear Calc Estimated GFR POC Glucose 98 (60-115) mg/dL Random Glucose (60-115) mg/dL Calcium (8.4-10.2) mg/dL Magnesium (1.6-2.6) mg/dL Total Bilirubin (0.0-1.0) mg/dL Direct Bilirubin (0.0-0.5) mg/dL AST (5-31) U/L ALT (0-31) U/L Alkaline Phosphatase (39-117) U/L Total Protein (6.5-8.0) g/dL Albumin (3.5-5.0) g/dL TSH 2.86 (0.32-4.0) uIU/mL COVID-19 (MILA) (Negative) COVID-19 Clin Com ECG Data Attestation: I personally reviewed and interpreted this ECG as follows: ECG interpretation date: 10/19/21 ECG interpretation time: 12:12 Interpretation: Rate: 54 Rhythm: sinus bradycardia Solon: left LVH Normal P waves. Normal RENETTA. Normal QRS complex. ST T wave : inverted t waves I and aVL no MAKAYLA qTC: normal prior studies: no change February 2021 The study has been interpreted contemporaneously by me. . Discharge Plan Discharge Clinical Impression: Hypomagnesemia Dementia Qualifiers: Dementia type: unspecified type Dementia behavioral disturbance: with behavioral disturbance Qualified Code(s): F03.91 - Unspecified dementia with behavioral disturbance Patient Disposition: Still a Patient Prescriptions: No Action levothyroxine 75 mcg Tablet 75 mcg PO DAILY 0RF atorvastatin 80 mg Tablet 80 mg PO BEDTIME Qty: 30 0RF aspirin 81 mg Tablet,Chewable 81 mg PO DAILY Qty: 30 0RF clonidine 0.2 mg/24 hr Patch Weekly 0.2 mg transdermal Fr@1600 Qty: 4 0RF Protocol: Hold for SBP< HOLD for SBP < : 90 isosorbide mononitrate 30 mg Tablet Extended Release 24 Hr 30 mg PO DAILY Qty: 30 0RF Protocol: Hold for SBP< HOLD for SBP < : 90 nifedipine 60 mg Tablet Extended Release 24hr 120 mg PO DAILY Qty: 60 0RF Protocol: Hold for SBP< HOLD for SBP < : 90 hydralazine 50 mg Tablet 50 mg PO TID Qty: 100 0RF Protocol: Hold for SBP< HOLD for SBP < : 120 doxazosin 2 mg Tablet 6 mg PO BEDTIME Qty: 100 0RF Protocol: Hold for SBP< HOLD for SBP < : 90 donepezil 5 mg Tablet 5 mg PO BEDTIME Qty: 30 0RF hydralazine 25 mg tablet 25 mg PO Q8H PRN (Reason: SBP >170) 0RF gabapentin 100 mg capsule 1 cap PO TID 0RF ergocalciferol (vitamin D2) 1,250 mcg (50,000 unit) Capsule 1,250 mcg PO QMONTH 0RF Rx Instructions: once a month on the glipizide 5 mg tablet 7.5 mg PO DAILY@0730 0RF glipizide 5 mg tablet 2.5 mg PO DAILY@1700 0RF
[2021-10-19 12:26] LABS: MANUAL DIFF FLAG NO
[2021-10-19 12:33] LABS: Basophils Absolute Auto 0.1 X10*3/uL (0.0-0.2); Basophils Percent Auto 0.7 % (0-2); Eosinophils Absolute Auto 0.2 X10*3/uL (0.0-0.4); Eosinophils Percent Auto 3.3 % (0-4); Hematocrit 28.5 % (37.0-47.0); Hemoglobin 9.1 g/dl (12.0-16.0); Imm Gran Abs Auto 0.01 X10*3/uL (0.00-0.03); Imm Gran Pct Auto 0.1 % (0.0-0.4); Lymphocytes Percent Auto 15.3 % (20-40); Mean Corpuscular HGB Conc 31.9 g/dl (31.0-35.0); Mean Corpuscular Hemoglobin 31.1 pg (27.0-33.0); Mean Corpuscular Volume 97.3 fL (80.0-98.0); Mean Platelet Volume 10.5 fL (9.4-12.3); Monocytes Absolute Auto 0.5 X10*3/uL (0.1-1.2); Neutrophils Absolute Auto 4.9 x10*3/uL (2.0-8.3); Neutrophils Percent Auto 72.6 % (45-73); Platelet Count 371 X10*3/uL (160-400); Red Blood Count 2.93 X10*6/uL (4.20-5.50); Red Cell Distribution Width 13.6 % (11.0-16.0); White Blood Count 6.7 X10*3/uL (4.8-10.8)
[2021-10-19 12:43] LABS: COVID-19 Test Negative (Negative)
[2021-10-19 12:51] LABS: Alanine Aminotransferase 17 U/L (0-31); Albumin Level 3.5 g/dL (3.5-5.0); Alkaline Phosphatase 92 U/L (39-117); Anion Gap 9 (12-20); Aspartate Amino Transferase 27 U/L (5-31); Bilirubin Direct < 0.2 mg/dL (0.0-0.5); Bilirubin Total 0.4 mg/dL (0.0-1.0); Blood Urea Nitrogen 19 mg/dL (9-16); Calcium 9.3 mg/dL (8.4-10.2); Carbon Dioxide 30 mmol/L (22-29); Chloride 106 mmol/L (96-108); Creatinine Clr Calc Pharmacy 29.1; Estimated Glomerular Filt Rate 44; Glucose Random 117 mg/dL (60-115); Magnesium 1.4 mg/dL (1.6-2.6); Potassium 4.3 mmol/L (3.3-5.1); Sodium 141 mmol/L (135-145); Total Protein 5.5 g/dL (6.5-8.0)
[2021-10-19] MEDS: Magnesium Oxide 400 MG TABLET 800 MG PO (12:58)
[2021-10-19 13:10] LABS: TSH reflex Free T4 2.86 uIU/mL (0.32-4.0)
--- NOTE | 2021-10-19 13:26 | PHA.MEDREC ---
Pharmacy Consult ? Medication Reconciliation Pharmacy has completed the medication reconciliation. ORDER SUMMARY LIST FROM [facility]
[2021-10-19 13:36] LABS: Glucose, Whole Blood 98 mg/dL (60-115)
[2021-10-19 13:41] VITALS: BP 153/62; PULSE 66; RESP 12; TEMP 36.4; O2SAT 97
--- NOTE | 2021-10-19 14:35 | MHC.CARE ---
CARE Team received a call from Svetlana Gill? MSN, RN commissions analyst at [facility]- reporting Pt has been increasingly aggressive over the past 6 weeks with in escalation over the past couple of weeks. Pt has becoming intrusive and preservationg onother residences and verbalyl aggressive. Pt is requiring redirection by staff. She is advocating fro [facility] admission for psychiatric stabilization and medication. She reports patients will be taken back to [facility] and will have bed held.
[2021-10-20 06:13] VITALS: BP 197/57; PULSE 52; RESP 16; TEMP 37.1; O2SAT 97
--- NOTE | 2021-10-20 06:26 | PC.NURSE ---
Patient slept though the night, no distress observed/reported, patient was able to provide urine sample, patient needs frequent reorientation, patient is incontinence of bladder, patient will be evaluated by care team in the morning, med rec completed/Mar updated, will continue to monitor.
[2021-10-20] MEDS: Levothyroxine Sodium 75 MCG TABLET PO (06:51)
[2021-10-20 07:07] LABS: Appearance Urine HAZY; Color Urine YELLOW; Glucose Urine UA 100 MG/DL (NEG); Leukocyte Esterase Urine NEG (NEG); Nitrite Urine NEG (NEG); UACC Culture Trigger NO; Urine Blood NEG (NEG); Urine Ketones NEG (NEG); Urine Protein 2+ MG/DL (NEG-TRACE)
[2021-10-20 07:14] LABS: Bacteria Urine TRACE /LPF; Mucus Urine TRACE /LPF; Renal Epithelial Cells Urine 1+ /LPF; Squamous Epithelial Cell Urine 1+ /LPF; UACC CULT YES
[2021-10-20 08:19] VITALS: BP 196/107; PULSE 59; O2SAT 97
[2021-10-20] MEDS: Magnesium Oxide 400 MG TABLET 800 MG PO (08:32)
[2021-10-20] MEDS: NIFEdipine ER 60 MG TAB.ER.24 120 MG PO (08:32)
[2021-10-20] MEDS: Aspirin 81 MG TAB.CHEW PO (08:32)
[2021-10-20] MEDS: hydrALAZINE HCl 50 MG TABLET PO ×3 (08:32→19:59)
[2021-10-20] MEDS: Isosorbide Mononitrate 30 MG TAB.ER.24H PO (08:32)
[2021-10-20] MEDS: glipiZIDE 5 MG TABLET 7.5 MG PO (08:33)
[2021-10-20] MEDS: Gabapentin 100 MG CAPSULE PO ×3 (08:33→20:00)
--- NOTE | 2021-10-20 11:19 | PC.NURSE ---
SPOKE WITH PROVIDER REGARDING RESULTS OF URINE, PROVIDER DOES NOT WANT TO TREAT URINE AT THIS TIME CARE TEAM WAS UPDATE WITH CLEARANCE TO SEE PATIENT.
[2021-10-20 14:11] VITALS: BP 138/61; PULSE 59; RESP 16; O2SAT 97
[2021-10-20 15:41] VITALS: BP 134/69; PULSE 56; RESP 16; TEMP 36.4; O2SAT 97
[2021-10-20] MEDS: glipiZIDE 5 MG TABLET 2.5 MG PO (16:43)
[2021-10-20 17:38] LABS: Amphetamine Screen Urine Not Detected (Not Detect); Barbiturates, Urine Not Detected (Not Detect); Benzodiazepines Screen Urine Not Detected (Not Detect); Cannabinoid Screen Urine Not Detected (Not Detect); Cocaine Screen Urine Not Detected (Not Detect); Fentanyl, urine Not Detected (Not Detect); Opiate Screen Urine Not Detected (Not Detect); Phencyclidine Screen Urine Not Detected (Not Detect)
[2021-10-20 19:57] VITALS: BP 158/83; PULSE 57; RESP 15; TEMP 36.3; O2SAT 96
[2021-10-20] MEDS: Doxazosin Mesylate 2 MG TABLET 6 MG PO (19:59)
[2021-10-20] MEDS: Donepezil HCl 5 MG TABLET PO (19:59)
[2021-10-20] MEDS: Atorvastatin Calcium 80 MG TABLET PO (20:00)
[2021-10-20 20:16] LABS: Glucose, Whole Blood 249 mg/dL (60-115)
[2021-10-21] VITALS (7 sets, daily range): BP systolic 115–179; BP diastolic 56–96; PULSE 62–92; RESP 15–16; TEMP 36.3–36.8; O2SAT 93–98
--- NOTE | 2021-10-21 05:07 | PC.NURSE ---
Patient slept though the night, no distress observed/reported, medication compliant, behavior calm and quiet, patient disposition will be decided on Friday by group meeting involving care team, case management, [facility], and psychiatrist, BP and BS under control, will continue to monitor.
[2021-10-21] MEDS: Levothyroxine Sodium 75 MCG TABLET PO (05:46)
[2021-10-21] MEDS: NIFEdipine ER 60 MG TAB.ER.24 120 MG PO (09:56)
[2021-10-21] MEDS: Gabapentin 100 MG CAPSULE PO ×3 (09:57→20:13)
[2021-10-21] MEDS: Aspirin 81 MG TAB.CHEW PO (09:57)
[2021-10-21] MEDS: glipiZIDE 5 MG TABLET 7.5 MG PO (09:57)
[2021-10-21] MEDS: Magnesium Oxide 400 MG TABLET 800 MG PO (09:58)
[2021-10-21] MEDS: Isosorbide Mononitrate 30 MG TAB.ER.24H PO (09:58)
[2021-10-21] MEDS: hydrALAZINE HCl 50 MG TABLET PO ×3 (09:58→20:13)
--- NOTE | 2021-10-21 10:24 | PC.NURSE ---
medicated per MAR. Pt very upset this AM about care. Pt stating that people here don't care RN offered reassurance. Pt pleased by this and redirected easily. Pt watching TV in room without any issues.
--- NOTE | 2021-10-21 13:16 | PC.NURSE ---
PATIENT RESTING COMFORTABLY IN BED. PLAN IS FOR CASE MANAGEMENT, CARE TEAM AND DOCTOR TO ASSESS AND EVAL FRIDAY ON BEST COURSE OF ACTION FOR PATIENT.
[2021-10-21] MEDS: glipiZIDE 5 MG TABLET 2.5 MG PO (17:51)
[2021-10-21] MEDS: Atorvastatin Calcium 80 MG TABLET PO (20:13)
[2021-10-21] MEDS: Doxazosin Mesylate 2 MG TABLET 6 MG PO (20:13)
[2021-10-21] MEDS: Donepezil HCl 5 MG TABLET PO (20:13)
[2021-10-21 20:17] LABS: Glucose, Whole Blood 266 mg/dL (60-115)
--- NOTE | 2021-10-22 00:04 | PC.NURSE ---
Vitals Error - wrong pt vitals entered at 2200 unable to delete Correct vitals entered 2355
--- NOTE | 2021-10-22 06:52 | PC.NURSE ---
Patient slept through the night, no distress observed/reported, behavior appropriate, medication compliant, disposition will be decided today, will continue to monitor.
[2021-10-22] MEDS: Levothyroxine Sodium 75 MCG TABLET PO (07:18)
[2021-10-22] MEDS: hydrALAZINE HCl 50 MG TABLET PO ×2 (09:10→14:42)
[2021-10-22] MEDS: Gabapentin 100 MG CAPSULE PO ×2 (09:10→14:42)
[2021-10-22] MEDS: glipiZIDE 5 MG TABLET 7.5 MG PO (09:10)
[2021-10-22] MEDS: Magnesium Oxide 400 MG TABLET 800 MG PO (09:10)
[2021-10-22] MEDS: NIFEdipine ER 60 MG TAB.ER.24 120 MG PO (09:10)
[2021-10-22] MEDS: Isosorbide Mononitrate 30 MG TAB.ER.24H PO (09:10)
[2021-10-22] MEDS: Aspirin 81 MG TAB.CHEW PO (09:10)
[2021-10-22 09:33] VITALS: PULSE 63; RESP 19; TEMP 36.2
--- NOTE | 2021-10-22 13:07 | MHC.CARE ---
CARE Team meets with pt in BH pod, she is calm, polite and appropriate, stating she would like to go home. CARE Team speaks with ROGERIO Figueroa and reviews chart. Pt has not exhibited any aggression since she presented to the ED. Based on this informaton and presentation, pt no longer meets criteria for IPLOC. CARE Team speaks with Peggy Gill from [facility], who agrees to take pt back. Plan if for pt to be seen by their psychiatric team on Friday, and Peggy is given contact info for admissions. In the event that pt requires ayana psych admit, CARE Team will explore a direct admit with [facility]. CARE Team discusses with [facility], who agrees to arrange transport and [facility] Floyd who agrees to discharge pt today.
--- NOTE | 2021-10-22 15:22 | PC.NURSE ---
[facility] HERE TO TRANSPORT PATIENT BACK TO [facility] ALONG WITH BELONGINGS PAPERWORK GIVEN TO AMBULANCE CREW
== END 2021-10-22 15:25 | disposition home or self-care (01) ==
PROVIDERS: Emergency Provider Emergency Medicine; PCP Internal Medicine
DX: F03.91 Unspecified dementia, unspecified severity, with behavioral disturbance (principal); E83.42 Hypomagnesemia; Z20.822 Contact with and (suspected) exposure to COVID-19; Z79.899 Other long term (current) drug therapy
CPT/HCPCS: 36415; 80048; 80076; 80307; 81001; 81003; 82947; 83735; 84443; 85025; 87086; 87635; 93005; 99285